=== PATIENT | male | born 1940 | race Caucasian/White ===

== ENCOUNTER → 2016-05-26 | Outpatient (CLI) | payer OTHER ==
[~2016-05-26] MED LIST: ASPI81TA28 PO; ATOR-26 PO; CHOL20009 PO; CLOB-65 EXT; CZR25 PO; DMD20 PO; DPRSL60 EXT; DXY100 PO; FLNIN; FLV1 PO; INSU70IN2 SC; ISOS30TA35 PO; LFB/200 PO; LORA-749 PO; METF-384 PO; METO50TA16 PO; METO50TA17 PO; MULTTAB PO; NITR0.4S UT; OMEP20CA9 PO; PLV75 PO; TORS10TA14 PO; ULT50 PO
[2016-05-26 10:23] LABS: ARTERIAL BLOOD GAS BASE EXCESS 5.9 mEq/L (-9-1.8); ARTERIAL BLOOD GAS HCO3 30 mmol/L (19-24); ARTERIAL BLOOD GAS PO2 81 mm/Hg (80-95); ARTERIAL BLOOD GAS pH 7.46 (7.35-7.45)
[2016-05-26 10:24] LABS: ALLEN TEST POS (POS); O2 ADMINISTRATION RA
== END | disposition home or self-care (01) ==
LOC: C.LAB 09:23
PROVIDERS: ATTEND Internal Medicine Pulmonary Disease
DX: R06.02 Shortness of breath (principal); J44.9 Chronic obstructive pulmonary disease, unspecified; E66.01 Morbid (severe) obesity due to excess calories; G47.33 Obstructive sleep apnea (adult) (pediatric)

== ENCOUNTER 2016-08-30 10:27 | Emergency (ER) | payer OTHER ==
[~2016-08-30] VITALS: Ht 162.6 cm; Wt 118.1 kg
[~2016-08-30 10:27] MED LIST changes: -ASPI81TA28 PO; -ATOR-26 PO; -CHOL20009 PO; -CZR25 PO; -DMD20 PO; -DXY100 PO; -FLNIN; -FLV1 PO; -INSU70IN2 SC; -ISOS30TA35 PO; -LFB/200 PO; -LORA-749 PO; -METF-384 PO; -METO50TA17 PO; -MULTTAB PO; -NITR0.4S UT; -OMEP20CA9 PO
[2016-08-30 10:35] VITALS: TEMP 36.7; Ht 162.6 cm; Wt 118.1 kg
[2016-08-30] MEDS ORDERED: ALBUT/IPRATROP 3MG/0.5MG NEB 3 ML VIAL INH STA (11:02)
--- NOTE | 2016-08-30 11:33 | DIAGNOSTIC IMAGING REPORT ---
CHEST ONE VIEW PORTABLE HISTORY:76 yearsMalehypoxemia with productive cough. Recent heart catheterization. COMPARISON: Chest radiograph 02/04/2016 TECHNIQUE: Portable upright AP view of the chest FINDINGS: Cardiac silhouette is again mildly enlarged. Median sternotomy. Left subclavian [place]-q-[id number] catheter is again seen with distal tip in the region of the mid SVC. No pneumothorax, pleural effusion, or edema or focal airspace consolidation. Bones are grossly intact. IMPRESSION: No acute cardiopulmonary process. The above report was generated using voice recognition software. It may contain grammatical, syntax or spelling errors. Electronically signed by: Boubacar Zepeda M.D. 08/30/2016 11:31 AM Dictated Date/Time: 08/30/2016 11:29 AM
[2016-08-30 11:37] LABS: BASO % 0.3 %; BASO ABS # 0.02 K/uL (0-0.2); COMPLETE YES; EOS % 1.7 %; HEMATOCRIT 34.6 % (42-52); IG% 0.5 %; LYMPH % 14.4 %; MEAN CELL VOLUME 90.1 fL (80-100); MEAN CORPUSCULAR HEMOGLOBIN 30.5 pg (25-34); MEAN CORPUSCULAR HGB CONC 33.8 g/dl (32-36); MEAN PLATELET VOLUME 9.3 fL (7.4-10.4); MONO % 3.1 %; PLATELET COUNT 197 K/uL (130-400); RED BLOOD COUNT 3.84 M/uL (4.7-6.1); WHITE BLOOD COUNT 7.63 K/uL (4.8-10.8)
--- NOTE | 2016-08-30 11:37 | EMERGENCY ROOM VISIT NOTE ---
History Report prepared by Shiela: Carey Case Under the Supervision of: Dr. Paola Blanco M.D. First contact with patient: 10:40 Chief Complaint: RESPIRATORY PROBLEMS Stated Complaint: LOW OXYGEN LEVEL, OLIVER, COUGH, NAUSEA Nursing Triage Summary: pt reports oxygen level down to 86 and has audible wheezing . had heart cath last week in [place]. pt reports bilat abd pain started at 0400 this am coughing up flem. increases pain History of Present Illness The patient is a 76 year old male who presents to the Emergency Room with complaints of persistent respiratory problems that worsened 6.5 hours ago, around 0400. The patient states that he woke up with a headache, diffuse abdominal pain, and shortness of breath. The patient suspects that the sausage he ate last night is causing him to experience food poisoning. The patient is also experiencing nausea and states that he dry heaved this morning without vomiting. He states that he measured his pulse oximetry and he found that it was 86%. The patient adds that he has been coughing for a while now, but this morning his cough was productive with phlegm. He denies fevers. The patient had 2 cardiac catheterizations done in [place] 5 days ago. He states that they were unremarkable and all of his arteries were clear. The patient states that he has been experiencing decreased oxygen saturations with ambulation for a while now. He states that his oxygen saturations are normal when he is sitting but decrease into the 80s upon ambulating. He told the doctors in [place] about this and they recommended nasal cannula oxygen when ambulating. The patient is also experiencing intermittent left-sided chest pain which he also states that he told the doctors at [place] about. The patient has been tested for COPD, but states that the tests are always negative. The patient had a triple cardiac bypass 8-10 years ago. The patient has diabetes but he did not take insulin this morning because his blood sugar was within normal limits and he wasn't going to eat anything else because he did not feel well. Source of History: patient Onset: 6.5 hours ago, around 0400 Position: chest Quality: other (respiratory problems) Timing: other (persistent) Associated Symptoms: + headache, + cough (productive), + chest pain (left- sided), + nausea, + abdominal pain (diffuse), No fevers Note: hypoxia Review of Systems See HPI for pertinent positives & negatives. A total of 10 systems reviewed and were otherwise negative. Past Medical & Surgical Medical Problems: (1) CKD (chronic kidney disease), stage III (2) Coronary artery disease (3) History of Mesenteric Atherosclerosis (4) HLD (hyperlipidemia) (5) SNOW (iron deficiency anemia) (6) IDDM (insulin dependent diabetes mellitus) (7) Prostate cancer (8) Psoriatic arthritis (9) Sleep apnea (10) TIA (transient ischemic attack) Surgical Problems: (1) H/O colonoscopy (2) History of esophagogastroduodenoscopy (EGD) (3) Hx of CABG Family History Bleeding disorder FH: CAD (coronary artery disease) FH: cancer Social History Smoking Status: Former Smoker Alcohol Use: none Drug Use: none Marital Status: , other Housing Status: lives with family Occupation Status: retired Current/Historical Medications Scheduled Aspirin (Aspirin Ec), 81 MG PO QAM Atorvastatin (Lipitor), 80 MG PO DAILY Cholecalciferol (Vitamin D), 4,000 INTER.UNIT PO QAM Fenofibrate (Fenofibrate Micronized), 200 MG PO DAILY Folic Acid (Folic Acid), 1 MG PO DAILY Isosorbide Mononitrate Ext Rel (Imdur Ext Rel), 30 MG PO DAILY Losartan Potassium (Losartan Potassium), 25 MG PO DAILY Metformin Hcl (Glucophage), 1,000 MG PO BID Metoprolol Tartrate (Lopressor) (Lopressor), 50 MG PO BID Multivitamins/Minerals (Mvi With Minerals), 1 TAB PO QAM Omeprazole (Prilosec), 20 MG PO QAM Torsemide (Demadex), 10 MG PO DAILY Scheduled PRN Insulin Isophan/Regular (Novolin 70/30), BID PRN for SLIDING SCALE Nitroglycerin (Nitrostat), 0.4 MG UT UD PRN for Chest Pain Allergies Coded Allergies: Prednisone (Unverified Adverse Reaction, Unknown, INCREASE BLOOD SUGAR, ) Physical Exam Vital Signs Date Time Temp Pulse Resp B/P (MAP) Pulse Ox O2 Delivery O2 Flow Rate FiO2 08/30/16 14:00 74 16 134/59 93 08/30/16 13:24 74 08/30/16 12:07 88 Room Air 08/30/16 10:44 74 08/30/16 10:35 36.7 73 22 164/77 95 Room Air Physical Exam Vital signs reviewed. Pulse ox is normal with periodic desaturations at rest. General: Chronically ill-appearing male, in no significant distress. HEENT: No scleral icterus, PERRLA, neck supple. Atraumatic. Cardiovascular: Regular rate and rhythm, no extra sounds. Pulmonary: Clear to auscultation bilaterally, normal work of breathing. Abdomen: Soft, obese, nontender, nondistended, positive bowel sounds. Musculoskeletal: Atraumatic, no peripheral edema. Neurologic: Patient awake alert and oriented x 3, full strength in all 4 extremities. Cranial nerves 2 through 12 grossly intact. Skin: Warm, dry, no rash Medical Decision & Procedures ER Provider Diagnostic Interpretation: Radiology results as stated below per my review and radiologist interpretation: CHEST ONE VIEW PORTABLE FINDINGS: Cardiac silhouette is again mildly enlarged. Median sternotomy. Left subclavian Oacxff-[id number] catheter is again seen with distal tip in the region of the mid SVC. No pneumothorax, pleural effusion, or edema or focal airspace consolidation. Bones are grossly intact. IMPRESSION: No acute cardiopulmonary process. The above report was generated using voice recognition software. It may contain grammatical, syntax or spelling errors. Electronically signed by: Boubacar Zepeda M.D. 08/30/2016 11:31 AM Dictated Date/Time: 08/30/2016 11:29 AM Laboratory Results 08/30/16 11:20 Red Blood Count 3.84, Mean Corpuscular Volume 90.1, Mean Corpuscular Hemoglobin 30.5, Mean Corpuscular Hemoglobin Concent 33.8, Mean Platelet Volume 9.3, Neutrophils (%) (Auto) 80.0, Lymphocytes (%) (Auto) 14.4, Monocytes (%) (Auto) 3.1, Eosinophils (%) (Auto) 1.7, Basophils (%) (Auto) 0.3, Neutrophils # (Auto) 6.10, Lymphocytes # (Auto) 1.10, Monocytes # (Auto) 0.24, Eosinophils # (Auto) 0.13, Basophils # (Auto) 0.02 08/30/16 11:20 Test 08/30/16 11:20 08/30/16 11:25 08/30/16 11:31 White Blood Count 7.63 K/uL (4.8-10.8) Red Blood Count 3.84 M/uL (4.7-6.1) Hemoglobin 11.7 g/dL (14.0-18.0) Hematocrit 34.6 % (42-52) Mean Corpuscular Volume 90.1 fL (80-100) Mean Corpuscular Hemoglobin 30.5 pg (25-34) Mean Corpuscular Hemoglobin Concent 33.8 g/dl (32-36) Platelet Count 197 K/uL (130-400) Mean Platelet Volume 9.3 fL (7.4-10.4) Neutrophils (%) (Auto) 80.0 % Lymphocytes (%) (Auto) 14.4 % Monocytes (%) (Auto) 3.1 % Eosinophils (%) (Auto) 1.7 % Basophils (%) (Auto) 0.3 % Neutrophils # (Auto) 6.10 K/uL (1.4-6.5) Lymphocytes # (Auto) 1.10 K/uL (1.2-3.4) Monocytes # (Auto) 0.24 K/uL (0.11-0.59) Eosinophils # (Auto) 0.13 K/uL (0-0.5) Basophils # (Auto) 0.02 K/uL (0-0.2) RDW Standard Deviation 43.9 fL (36.4-46.3) RDW Coefficient of Variation 13.5 % (11.5-14.5) Immature Granulocyte % (Auto) 0.5 % Immature Granulocyte # (Auto) 0.04 K/uL (0.00-0.02) Prothrombin Time 10.9 SECONDS (9.0-12.0) Prothromb Time International Ratio 1.0 (0.9-1.1) Activated Partial Thromboplast Time 33.3 SECONDS (21.0-31.0) Partial Thromboplastin Ratio 1.3 Anion Gap 5.0 mmol/L (3-11) Est Creatinine Clear Calc Drug Dose 42.2 ml/min Estimated GFR () 42.0 Estimated GFR (Non- 36.3 BUN/Creatinine Ratio 11.0 (10-20) Calcium Level 8.3 mg/dl (8.5-10.1) Total Bilirubin 0.5 mg/dl (0.2-1) Direct Bilirubin 0.2 mg/dl (0-0.2) Aspartate Amino Transf (AST/SGOT) 19 U/L (15-37) Alanine Aminotransferase (ALT/SGPT) 31 U/L (12-78) Alkaline Phosphatase 53 U/L (45-117) Total Creatine Kinase 87 U/L (39-308) Creatine Kinase MB 0.9 ng/ml (0.5-3.6) Creatine Kinase MB Ratio 1.0 (0-3.0) Total Protein 6.9 gm/dl (6.4-8.2) Albumin 3.1 gm/dl (3.4-5.0) Bedside Troponin I < 0.030 ng/ml (0-0.045) LS-Ryg-M-Type Natriuretic Peptide 438 pg/ml (0-900) Bedside Glucose 152 mg/dl (70-99) Laboratory results per my review. Medications Administered Medications (Trade) Dose Ordered Sig/Camelia Route Start Time Stop Time Status Last Admin Dose Admin Albuterol/ Ipratropium (Duoneb) 3 ml NOW STAT INH 08/30/16 11:02 08/30/16 11:03 DC 08/30/16 11:41 3 ML Heparin Sodium (Porcine) (Heparin 100 Unit/ml 5ml Flush) 5 ml STK-MED ONCE .ROUTE 08/30/16 13:57 08/30/16 13:58 DC 08/30/16 14:02 5 ML ECG Indication: chest pain, SOB/dyspnea Rate (beats per minute): 69 Rhythm: sinus rhythm Findings: 1st degree AV block, no acute ischemic change, no ectopy ED Course 1055: Past medical records reviewed. The patient was evaluated in room B6. A complete history and physical examination was performed. 1102: Ordered DuoNeb 3 ml INH 1300: I reviewed the patient's case with Dr. Rolon - Cardiology. He said the patient needs home oxygen. 1304: I discussed the patient's case with the auto repair shop manager. They are going to setup nasal cannula oxygen at home for the patient. 1313: Upon reevaluation, the patient appeared to have improvement of his symptoms. I discussed findings with him. He verbalized agreement of the treatment plan. He was discharged home. 1330: The auto repair shop manager informed me that [facility] is going to deliver oxygen to the patient's house. Medical Decision Differential diagnoses includes infections, reactive airway disease, pneumonia, pneumothorax, COPD, CHF, cardiac ischemia, pulmonary embolism, musculoskeletal, gastrointestinal. Medication Reconciliation: I attest that I have personally reviewed the patient' s current medication list. Blood Pressure Screening: Patient was found to have an elevated blood pressure and was referred to their primary doctor for recheck and further treatment. This patient was evaluated and appeared to be in no significant distress. Physical examination reveals an obese elderly male in no significant distress. Vital signs have remained stable, patient's oxygenation does periodically drop to the high 80s. The patient recently had a catheterization performed last week and states the coronary grafting and stents are patent. He states he has had multiple pulmonary tests done at [facility]. I did speak with his biomedical manager, Dr. Rolon who states the patient is qualified for home oxygen. Patient states that this has been arranged through [facility] but has not been delivered. Case management contacted the facility who will deliver the oxygen to the patient later this afternoon. The patient seems to be relatively stable at this time and was discharged home. He seemed happy with this plan and agrees. Consults Time Called: 1250 Consulting Physician: Dr. Rolon - Cardiology Returned Call: 1300 I reviewed the patient's case with Dr. Gonzales Baig Cardiology. He said the patient needs home oxygen. Impression Primary Impression: Dependence on supplemental oxygen Scribe Attestation The scribe's documentation has been prepared under my direction and personally reviewed by me in its entirety. I confirm that the note above accurately reflects all work, treatment, procedures, and medical decision making performed by me. Departure Information Dispostion Home / Self-Care Referrals Levy Stout M.D. (PCP) Forms HOME CARE DOCUMENTATION FORM, IMPORTANT VISIT INFORMATION, WORK / SCHOOL INSTRUCTIONS Patient Instructions My [facility] Additional Instructions Diagnosis: Oxygen dependency Home oxygen will be delivered to you later this afternoon by [facility]. Follow-up with your primary care physician this week for reevaluation. Return to the emergency department for worsening of symptoms or any medical concerns.
[2016-08-30 11:44] LABS: POINT OF CARE PRO-BNP 438 pg/ml (0-900); POINT OF CARE TROPONIN I < 0.030 ng/ml (0-0.045)
[2016-08-30 11:50] LABS: PARTIAL THROMBOPLASTIN RATIO 1.3; PROTHROMBIN TIME (PATIENT) 10.9 SECONDS (9.0-12.0)
[2016-08-30 11:59] LABS: CALCIUM 8.3 mg/dl (8.5-10.1); CREATININE 1.8 mg/dl (0.60-1.40); POTASSIUM 4.4 mmol/L (3.5-5.1)
[2016-08-30 14:00] VITALS: BP 134/59; PULSE 74; O2SAT 93
[2016-10-19] MEDS ORDERED: ASPI81TA28 PO (09:20)
[2016-10-19] MEDS ORDERED: OMEP20CA9 PO (11:27)
[2016-10-19] MEDS ORDERED: ISOS30TA35 PO (11:27)
[2016-10-19] MEDS ORDERED: CHOL20009 PO (17:46)
[2016-10-21] MEDS ORDERED: FLNIN (19:06)
[2016-10-21] MEDS ORDERED: DXY100 PO (19:06)
[2016-10-21] MEDS ORDERED: LORA10TA57 PO (19:06)
== END 2016-08-30 14:01 | disposition home or self-care (01) ==
LOC: C.EDB 10:29
DX: Z99.81 Dependence on supplemental oxygen (principal); N18.3 Chronic kidney disease, stage 3 (moderate); I25.10 Atherosclerotic heart disease of native coronary artery without angina pectoris; E78.5 Hyperlipidemia, unspecified; E55.9 Vitamin D deficiency, unspecified; E10.9 Type 1 diabetes mellitus without complications; G47.30 Sleep apnea, unspecified; G45.9 Transient cerebral ischemic attack, unspecified; Z87.891 Personal history of nicotine dependence; Z79.82 Long term (current) use of aspirin

== ENCOUNTER 2016-10-19 18:30 | Inpatient (IN) | payer OTHER ==
[~2016-10-19] VITALS: Ht 165.1 cm; Wt 117.0 kg
[~2016-10-19 18:30] MED LIST changes: +ASPI81TA28 PO; +CHOL20009 PO; -CLOB-65 EXT; -DPRSL60 EXT; +ISOS30TA35 PO; +OMEP20CA9 PO; -PLV75 PO; -ULT50 PO
[2016-10-19] MEDS ORDERED: LFB/200 PO (18:31)
[2016-10-19] MEDS ORDERED: METF-384 PO (18:31)
[2016-10-19] MEDS ORDERED: ATOR-26 PO (18:31)
[2016-10-19] MEDS ORDERED: FLV1 PO (18:31)
[2016-10-19] MEDS ORDERED: CZR25 PO (18:31)
[2016-10-19] MEDS ORDERED: ALBUT/IPRATROP 3MG/0.5MG NEB 3 ML VIAL ONE (18:40)
--- NOTE | 2016-10-19 19:03 | EMERGENCY ROOM VISIT NOTE ---
History First contact with patient: 18:47 Chief Complaint: RESPIRATORY PROBLEMS Stated Complaint: SOB/WHEEZING Nursing Triage Summary: pt arrives via EMS reports increased exertional sob over last several days , with yellow sputum and increased coughing History of Present Illness The patient is a 76 year old male who presents to the Emergency Room with complaints of shortness of breath and cough for the last 2 days. Associated wheezing and headaches. He complains of productive yellow cough, no hemoptysis. Took theraflu but is not helping. No known sick contacts. He denies any diaphoresis. He also has been having 2 weeks of abdominal pain, diarrhea. He denies melena, nausea He has obstructive sleep apnea but reports not managing to use his CPAP for the last 2 nights as it makes his more short of breath.He is on oxygen for exertion. He reports having a CABG approximately 10 years previously and 6 cardiac stents since. He had a cardiac reports having a cardiac catheterization 6 weeks previously which was normal Review of Systems See below Constitutional: + fever, + chills (see HPI) Eyes: No worsening of vision ENT: No hearing loss Respiratory: + cough, + sputum, + wheezing, + shortness of breath, + dyspnea on exertion, + dyspnea at rest, No hemoptysis Cardiovascular: + chest pain, + orthopnea, + PND (q), + edema, No claudication, No palpitations Abdomen: + diarrhea (Minor LLQ pain, previous hx of diverticulitis), No pain , No nausea, No vomiting, No constipation, No GI bleeding Musculoskeletal: No joint pain, No muscle pain Genitourinary - Male: No hematuria, No dysuria, No urinary frequency, No urinary urgency Endocrine: + fatigue, No excessive thirst, No excessive urination Integumentary: No rash, No itch Past Medical/Surgical History Medical Problems: (1) CKD (chronic kidney disease), stage III (2) Coronary artery disease (3) History of Mesenteric Atherosclerosis (4) HLD (hyperlipidemia) (5) SNOW (iron deficiency anemia) (6) IDDM (insulin dependent diabetes mellitus) (7) Prostate cancer (8) Psoriatic arthritis (9) Sleep apnea (10) TIA (transient ischemic attack) Surgical Problems: (1) H/O colonoscopy (2) History of esophagogastroduodenoscopy (EGD) (3) Hx of CABG Family History Bleeding disorder FH: CAD (coronary artery disease) FH: cancer Social History Smoking Status: Former Smoker Alcohol Use: none Drug Use: none Marital Status: , other Housing Status: lives with family Occupation Status: retired Current/Historical Medications Scheduled Aspirin (Aspirin Ec), 81 MG PO QAM Atorvastatin (Lipitor), 80 MG PO DAILY Cholecalciferol (Vitamin D), 4,000 INTER.UNIT PO QAM Fenofibrate (Fenofibrate Micronized), 200 MG PO DAILY Folic Acid (Folic Acid), 1 MG PO DAILY Insulin Isophan/Regular (Novolin 70/30), 1 DOSE SC QPM Insulin Isophan/Regular (Novolin 70/30), 65-70 UNITS SC QAM Isosorbide Mononitrate Ext Rel (Imdur Ext Rel), 30 MG PO DAILY Losartan Potassium (Losartan Potassium), 25 MG PO DAILY Metformin Hcl (Glucophage), 1,000 MG PO BID Metoprolol Tartrate (Metoprolol Tartrate), 50 MG PO BID Multivitamins/Minerals (Mvi With Minerals), 1 TAB PO QAM Omeprazole (Prilosec), 20 MG PO QAM Torsemide (Torsemide), 10 MG PO DAILY Scheduled PRN Nitroglycerin (Nitrostat), 0.4 MG UT UD PRN for Chest Pain Physical Exam Vital Signs Date Time Temp Pulse Resp B/P (MAP) Pulse Ox O2 Delivery O2 Flow Rate FiO2 10/19/16 20:35 71 20 140/78 92 Room Air 10/19/16 19:22 96 Nasal Cannula 2.0 10/19/16 19:04 70 10/19/16 18:43 36.8 64 20 156/72 98 Room Air Physical Exam GENERAL: Awake, alert, well-appearing, in moderate distress HENT: Normocephalic, atraumatic. Oropharynx unremarkable. RESPIRATORY: Diffuse wheeze on exam. CARDIAC: Regular rate, normal rhythm. Extremities warm and well perfused. Pulses equal. ABDOMEN: Soft, non-distended. Well developed. No tenderness to palpation. No rebound or guarding. No masses. MUSCULOSKELETAL: Chest examination reveals no tenderness. The back is symmetrical on inspection without obvious abnormality. There is no CVA tenderness to palpation. No joint edema. LOWER EXTREMITIES: Calves are equal size bilaterally and non-tender. No edema. No discoloration. NEURO: Normal sensorium. No sensory or motor deficits noted. SKIN: No rash or jaundice noted. Medical Decision & Procedures Laboratory Results 10/19/16 19:22 Red Blood Count 4.14, Mean Corpuscular Volume 91.1, Mean Corpuscular Hemoglobin 30.7, Mean Corpuscular Hemoglobin Concent 33.7, Mean Platelet Volume 9.7, Neutrophils (%) (Auto) 81.0, Lymphocytes (%) (Auto) 13.2, Monocytes (%) (Auto) 3.3, Eosinophils (%) (Auto) 1.9, Basophils (%) (Auto) 0.2, Neutrophils # (Auto) 8.41, Lymphocytes # (Auto) 1.37, Monocytes # (Auto) 0.34, Eosinophils # (Auto) 0.20, Basophils # (Auto) 0.02 10/19/16 19:22 Test 10/19/16 19:22 10/19/16 19:26 10/19/16 19:32 10/19/16 21:22 White Blood Count 10.38 K/uL (4.8-10.8) Red Blood Count 4.14 M/uL (4.7-6.1) Hemoglobin 12.7 g/dL (14.0-18.0) Hematocrit 37.7 % (42-52) Mean Corpuscular Volume 91.1 fL (80-100) Mean Corpuscular Hemoglobin 30.7 pg (25-34) Mean Corpuscular Hemoglobin Concent 33.7 g/dl (32-36) Platelet Count 192 K/uL (130-400) Mean Platelet Volume 9.7 fL (7.4-10.4) Neutrophils (%) (Auto) 81.0 % Lymphocytes (%) (Auto) 13.2 % Monocytes (%) (Auto) 3.3 % Eosinophils (%) (Auto) 1.9 % Basophils (%) (Auto) 0.2 % Neutrophils # (Auto) 8.41 K/uL (1.4-6.5) Lymphocytes # (Auto) 1.37 K/uL (1.2-3.4) Monocytes # (Auto) 0.34 K/uL (0.11-0.59) Eosinophils # (Auto) 0.20 K/uL (0-0.5) Basophils # (Auto) 0.02 K/uL (0-0.2) RDW Standard Deviation 43.9 fL (36.4-46.3) RDW Coefficient of Variation 13.2 % (11.5-14.5) Immature Granulocyte % (Auto) 0.4 % Immature Granulocyte # (Auto) 0.04 K/uL (0.00-0.02) Est Creatinine Clear Calc Drug Dose 38.6 ml/min Estimated GFR () 37.0 Estimated GFR (Non- 31.9 BUN/Creatinine Ratio 8.9 (10-20) Calcium Level 8.5 mg/dl (8.5-10.1) Troponin I < 0.015 ng/ml (0-0.045) Pro-B-Type Natriuretic Peptide 441 pg/ml (0-900) Bedside Hemoglobin 12.6 g/dl (14.0-18.0) Bedside Hematocrit 37 % (42-52) Bedside Sodium 136 mEq/L (135-144) Bedside Potassium 3.9 mEq/L (3.3-5.0) Bedside Chloride 95 mEq/L (101-112) Bedside Total CO2 27 mEq/l (24-31) Anion Gap 19.0 mmol/L (16-25) Bedside Blood Urea Nitrogen 18 mg/dl (7-18) Bedside Creatinine 1.9 mg/dl (0.6-1.3) Bedside Glucose (other) 217 mg/dl (70-99) Bedside Ionized Calcium (Myranda) 1.14 mmol/l (1.12-1.32) Bedside Troponin I < 0.030 ng/ml (0-0.045) Medications Administered Medications (Trade) Dose Ordered Sig/Camelia Route Start Time Stop Time Status Last Admin Dose Admin Albuterol/ Ipratropium (Duoneb) 3 ml STK-MED ONCE .ROUTE 10/19/16 18:40 10/19/16 18:41 DC 10/19/16 18:47 3 ML Methylprednisolone Sodium Succinate (Solu-Medrol IV) 125 mg NOW STAT IV 10/19/16 19:18 10/19/16 19:20 DC 10/19/16 19:49 125 MG Famotidine 20 mg/ Dextrose 102 ml @ 200 mls/hr ONE STAT IV 10/19/16 19:18 10/19/16 19:48 DC 10/19/16 19:48 200 MLS/HR Albuterol/ Ipratropium (Duoneb) 3 ml ONE STAT INH 10/19/16 20:41 10/19/16 20:42 DC 10/19/16 21:27 3 ML ECG Indication: SOB/dyspnea Rate (beats per minute): 78 Rhythm: normal sinus Findings: no acute ischemic change Comparison ECG Date: August,; no significant change Change: no significant change (lessened TX interval in the most recent ECG) ED Course 1846: full h&p obtained by myself and Dr. Peterson 1909: Discussed case with Dr. Villegas 1932: Reassessed by Dr. Peterson; comfortable at rest; declined second duoneb as he felt no advantage from first duoneb 2029: Patient re-assessed by myself; patient reports no improvement symptomatically; clinically, remains diffusely wheezy; Sats 91% on RA 2047: [facility]ed with [facility], Dr. Sanford; agreed to admit to inpatient service Medical Decision Prior records/ancillary studies reviewed. Triage Nursing notes reviewed. Additional history obtained from the patient. The patient's history was concerning for respiratory difficulties. Differential diagnosis: Etiologies such as infections, reactive airway disease, pneumonia, pneumothorax , COPD, CHF, cardiac ischemia, pulmonary embolism, musculoskeletal, gastrointestinal, as well as others were entertained. Physical examination: As above. ER treatment provided: Duoneb; solumedrol 125 On reassessment the patient felt no better. Diagnostic interpretation by me: The electrocardiogram was negative for acute ischemic or pathologic change. The labs revealed normal troponin, BNP, slightly decreased hgb at 12.6, Cr: 2.00 Imaging studies: CHEST ONE VIEW PORTABLE CLINICAL HISTORY: shortness of breath dyspnea COMPARISON STUDY: 08/30/2016 FINDINGS: Mild stable cardiomegaly. Prior median sternotomy. Central catheter in superior vena cava. Lungs are clear. IMPRESSION: Chronic change. No acute process. Consultation: [facility] The case was discussed and diagnostics were reviewed. The patient was evaluated in the ER for further treatment. This appears to be consistent with COPD exacerbation. By the evaluation outlined above emergent etiologies such as CHF, cardiac ischemia, pulmonary embolism, reactive airway disease, pneumonia, pneumothorax, musculoskeletal, serious bacterial infections, as well as others were deemed relatively unlikely. Blood Pressure Screening Patient's blood pressure: Elevated blood pressure Impression Primary Impression: COPD exacerbation Departure Information Dispostion Admitted as an inpatient Condition POOR Referrals Levy Stout M.D. (PCP) Patient Instructions My [facility] Resident Tracking Resident Involvement: Resident Care Provided Care Provided: Adult ED
--- NOTE | 2016-10-19 19:16 | DIAGNOSTIC IMAGING REPORT ---
CHEST ONE VIEW PORTABLE CLINICAL HISTORY: shortness of breath dyspnea COMPARISON STUDY: 08/30/2016 FINDINGS: Mild stable cardiomegaly. Prior median sternotomy. Central catheter in superior vena cava. Lungs are clear. IMPRESSION: Chronic change. No acute process. The above report was generated using voice recognition software. It may contain grammatical, syntax or spelling errors. Electronically signed by: Blair Lama M.D. 10/19/2016 7:15 PM Dictated Date/Time: 10/19/2016 7:14 PM
[2016-10-19] MEDS ORDERED: FAMOTIDINE IV INJ 20 MG in DEXTROSE 5% 100ML 100 ML IV STA (19:18)
[2016-10-19] MEDS ORDERED: METHYLPREDNISOLONE 125 MG VIAL IV STA (19:18)
[2016-10-19] MEDS ORDERED: INSU70IN2 SC ×2 (19:34→20:49)
[2016-10-19] MEDS ORDERED: DMD20 PO (19:34)
[2016-10-19] MEDS ORDERED: METO50TA17 PO (19:34)
[2016-10-19 19:36] LABS: BASO % 0.2 %; BASO ABS # 0.02 K/uL (0-0.2); COMPLETE YES; EOS % 1.9 %; HEMATOCRIT 37.7 % (42-52); IG% 0.4 %; LYMPH % 13.2 %; LYMPH ABS # 1.37 K/uL (1.2-3.4); MEAN CELL VOLUME 91.1 fL (80-100); MEAN CORPUSCULAR HEMOGLOBIN 30.7 pg (25-34); MEAN CORPUSCULAR HGB CONC 33.7 g/dl (32-36); MEAN PLATELET VOLUME 9.7 fL (7.4-10.4); MONO % 3.3 %; PLATELET COUNT 192 K/uL (130-400); RED BLOOD COUNT 4.14 M/uL (4.7-6.1); WHITE BLOOD COUNT 10.38 K/uL (4.8-10.8)
[2016-10-19 19:40] LABS: ISTAT CREATININE 1.9 mg/dl (0.6-1.3); ISTAT HEMOGLOBIN 12.6 g/dl (14.0-18.0); ISTAT IONIZED CALCIUM 1.14 mmol/l (1.12-1.32)
[2016-10-19 20:09] LABS: BLOOD UREA NITROGEN 18 mg/dl (7-18); BUN/CREATININE RATIO 8.9 (10-20); CALCIUM 8.5 mg/dl (8.5-10.1); CARBON DIOXIDE 31 mmol/L (21-32); CHLORIDE 100 mmol/L (98-107); GLUCOSE 215 mg/dl (70-99); SODIUM 137 mmol/L (136-145)
[2016-10-19] MEDS ORDERED: ALBUT/IPRATROP 3MG/0.5MG NEB 3 ML VIAL INH STA (20:41)
[2016-10-19] MEDS ORDERED: DOXYCYCLINE IV 100 MG in DEXTROSE 5% 100ML 100 ML IV STA (20:44)
[2016-10-19] MEDS ORDERED: CONSULT PHARMACY STA (21:22)
[2016-10-19] MEDS ORDERED: ACETAMINOPHEN 325 MG TAB PO PRN (21:30)
[2016-10-19] MEDS ORDERED: ONDANSETRON INJ 2 MG/ML 2 ML VIAL IV PRN (21:30)
[2016-10-19] MEDS ORDERED: GLUCOSE 10 TABS/TUBE PO PRN (21:30)
[2016-10-19] MEDS ORDERED: GLUCAGON FOR INJ 1 MG VIAL SQ PRN (21:30)
[2016-10-19] MEDS ORDERED: GLUCOSE 40% GEL 15 GM TUBE PO PRN (21:30)
[2016-10-19] MEDS: LEVALBUTEROL 1.25MG/0.5ML NEB INH SCH ×3 (21:30→23:34)
[2016-10-19] MEDS ORDERED: DEXTROSE 50% 50 ML SYR IV PRN (21:30)
--- NOTE | 2016-10-19 21:54 | History and Physical ---
History & Physical Date & Time of Service: Oct 19, 2016 at 21:37 Chief Complaint: Sob/Wheezing Primary Care Physician: Levy Stout M.D. History of Present Illness Source: patient, clinic records 76 year old male with history of COPD, on chronic oxygen 2 liters NC (used with exertion), KATHE on CPAP, DM 2 on Insulin, other problems noted below presenting with shortness of breath and productive cough x [address] Wright for PCP. Patient reports 2 day history of productive cough, progressive shortness of breath associated with sweats. He then presented to the ER. Patient received with saturation 98% on room air, diffuse wheezing, CXR did not reveal pneumonia though. BNP normal. He was given Duoneb, Solumedrol with some improvement of symptoms. On exam, patient sitting in bed, not in distress, speaks in sentences. State he feels only slightly better. Denies active shortness of breath, chest pain, dizziness, palpitations. Also reports LLQ pain for the past few days, no melena/hematochezia, nausea. This reminds him of previous bouts of diverticulitis. Past Medical/Surgical History Medical Problems: (1) CKD (chronic kidney disease), stage III Status: Chronic (2) Coronary artery disease Status: Chronic (3) History of Mesenteric Atherosclerosis Status: Chronic (4) HLD (hyperlipidemia) Status: Chronic (5) SNOW (iron deficiency anemia) Status: Chronic (6) IDDM (insulin dependent diabetes mellitus) Status: Chronic (7) Prostate cancer Status: Resolved (8) Psoriatic arthritis Status: Chronic (9) Sleep apnea Status: Chronic Surgical Problems: (1) H/O colonoscopy Status: Chronic (2) History of esophagogastroduodenoscopy (EGD) Status: Chronic (3) Hx of CABG Status: Resolved Family History Bleeding disorder FH: CAD (coronary artery disease) FH: cancer Social History Smoking Status: Former Smoker Drug Use: none Marital Status: , other Housing status: lives with family Occupational Status: retired Immunizations History of Influenza Vaccine: Yes History of Tetanus Vaccine?: No History of Pneumococcal: Yes History of Hepatitis B Vaccine: No Multi-Drug Resistant Organisms History of MDRO: No Allergies Coded Allergies: Prednisone (Unverified Adverse Reaction, Unknown, INCREASE BLOOD SUGAR, ) Home Medications Scheduled Aspirin (Aspirin Ec), 81 MG PO QAM Atorvastatin (Lipitor), 80 MG PO DAILY Cholecalciferol (Vitamin D), 4,000 INTER.UNIT PO QAM Fenofibrate (Fenofibrate Micronized), 200 MG PO DAILY Folic Acid (Folic Acid), 1 MG PO DAILY Insulin Isophan/Regular (Novolin 70/30), 1 DOSE SC QPM Insulin Isophan/Regular (Novolin 70/30), 65-70 UNITS SC QAM Isosorbide Mononitrate Ext Rel (Imdur Ext Rel), 30 MG PO DAILY Losartan Potassium (Losartan Potassium), 25 MG PO DAILY Metformin Hcl (Glucophage), 1,000 MG PO BID Metoprolol Tartrate (Metoprolol Tartrate), 50 MG PO BID Multivitamins/Minerals (Mvi With Minerals), 1 TAB PO QAM Omeprazole (Prilosec), 20 MG PO QAM Torsemide (Torsemide), 10 MG PO DAILY Scheduled PRN Nitroglycerin (Nitrostat), 0.4 MG UT UD PRN for Chest Pain Review of Systems Constitutional- no fever; no weight loss Eyes- no acute visual changes ENT- no sinus drainage; no pharyngitis Pulmonary- (+) as noted above Cardiac- no chest pain, no palpitations, no orthopnea, no dependent edema GI- (+) as noted above - no dysuria, no hematuria Musculoskeletal- no arthralgias, no myalgias Derm- no rashes, no new skin lesions, no changing skin lesions Hematologic- no unusual bruising, no unusual bleeding Lymphatics- no adenopathy Endocrine- no polyuria or polydipsia; no heat or cold intolerance Neuro- no headaches, no focal neurologic symptoms Psych- no anxiety, no depression Physical Exam Vital Signs Date Time Temp Pulse Resp B/P (MAP) Pulse Ox O2 Delivery O2 Flow Rate FiO2 10/19/16 20:35 71 20 140/78 92 Room Air 10/19/16 19:22 96 Nasal Cannula 2.0 10/19/16 19:04 70 10/19/16 18:43 36.8 64 20 156/72 98 Room Air General Appearance: WD/WN, no apparent distress Head: normocephalic, atraumatic Eyes: normal inspection, EOMI, sclerae normal ENT: normal ENT inspection, hearing grossly normal, pharynx normal Neck: supple, no adenopathy, thyroid normal, no JVD Respiratory/Chest: chest non-tender, no respiratory distress, no accessory muscle use, + pertinent finding (scattered wheezing and bilaterally) Cardiovascular: regular rate, rhythm, no edema, no JVD, no murmur Abdomen/GI: normal bowel sounds, soft, no organomegaly, + pertinent finding ( mild LLQ tenderness) Back: normal inspection, no CVA tenderness Extremities/Musculoskelatal: normal inspection, no calf tenderness, normal capillary refill, no pedal edema, normal range of motion 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, no motor/sensory deficits, alert, normal mood/affect, oriented x 3 Skin: normal color, warm/dry, no rash Lymphatic: no adenopathy Diagnostics Laboratory Results Results Past 24 Hours Test 10/19/16 19:22 10/19/16 19:26 10/19/16 19:32 10/19/16 21:22 Range/Units White Blood Count 10.38 4.8-10.8 K/uL Red Blood Count 4.14 4.7-6.1 M/uL Hemoglobin 12.7 14.0-18.0 g/dL Hematocrit 37.7 42-52 % Mean Corpuscular Volume 91.1 80-100 fL Mean Corpuscular Hemoglobin 30.7 25-34 pg Mean Corpuscular Hemoglobin Concent 33.7 32-36 g/dl Platelet Count 192 130-400 K/uL Mean Platelet Volume 9.7 7.4-10.4 fL Neutrophils (%) (Auto) 81.0 % Lymphocytes (%) (Auto) 13.2 % Monocytes (%) (Auto) 3.3 % Eosinophils (%) (Auto) 1.9 % Basophils (%) (Auto) 0.2 % Neutrophils # (Auto) 8.41 1.4-6.5 K/uL Lymphocytes # (Auto) 1.37 1.2-3.4 K/uL Monocytes # (Auto) 0.34 0.11-0.59 K/uL Eosinophils # (Auto) 0.20 0-0.5 K/uL Basophils # (Auto) 0.02 0-0.2 K/uL RDW Standard Deviation 43.9 36.4-46.3 fL RDW Coefficient of Variation 13.2 11.5-14.5 % Immature Granulocyte % (Auto) 0.4 % Immature Granulocyte # (Auto) 0.04 0.00-0.02 K/uL Sodium Level 137 136-145 mmol/L Potassium Level 4.0 3.5-5.1 mmol/L Chloride Level 100 98-107 mmol/L Carbon Dioxide Level 31 21-32 mmol/L Anion Gap 6.0 19.0 16-25 mmol/L Blood Urea Nitrogen 18 7-18 mg/dl Creatinine 2.00 0.60-1.40 mg/dl Est Creatinine Clear Calc Drug Dose 38.6 ml/min Estimated GFR () 37.0 Estimated GFR (Non- 31.9 BUN/Creatinine Ratio 8.9 10-20 Random Glucose 215 70-99 mg/dl Calcium Level 8.5 8.5-10.1 mg/dl Troponin I < 0.015 0-0.045 ng/ml Pro-B-Type Natriuretic Peptide 441 0-900 pg/ml Bedside Hemoglobin 12.6 14.0-18.0 g/dl Bedside Hematocrit 37 42-52 % Bedside Sodium 136 135-144 mEq/L Bedside Potassium 3.9 3.3-5.0 mEq/L Bedside Chloride 95 101-112 mEq/L Bedside Total CO2 27 24-31 mEq/l Bedside Blood Urea Nitrogen 18 7-18 mg/dl Bedside Creatinine 1.9 0.6-1.3 mg/dl Bedside Glucose (other) 217 70-99 mg/dl Bedside Ionized Calcium (Myranda) 1.14 1.12-1.32 mmol/l Bedside Troponin I < 0.030 0-0.045 ng/ml Diagnostic Radiology CHEST ONE VIEW PORTABLE CLINICAL HISTORY: shortness of breath dyspnea COMPARISON STUDY: 08/30/2016 FINDINGS: Mild stable cardiomegaly. Prior median sternotomy. Central catheter in superior vena cava. Lungs are clear. IMPRESSION: Chronic change. No acute process. EKG sinus rhythm, normal HR Impression Assessment and Plan 76 year old male with history of COPD, on chronic oxygen 2 liters NC (used with exertion), KATHE on CPAP, DM 2 on Insulin, other problems noted below presenting with shortness of breath and productive cough x 2 days. COPD EXACERBATION, ACUTE BRONCHITIS ACUTE ON CHRONIC HYPOXIC RESPIRATORY FAILURE - cxr no pneumonia - Solumedrol 60mg q6h, Nebs q4h, Moxifloxacin baseline ABG ordered POSSIBLE DIVERTICULITIS - denies signs of GI bleed - Ct abdomen/pelvis without contrast - Moxifloxacin IV mech soft diet KATHE ON CPAP - CPAP ordered DM 2 - usually on Metformin and Novolin 70/30 Pharmacy consulted CAD/CABG - stable continue usual Aspirin, Metoprolol, Imdur, Losartan CKD 3 - crea at baseline DVT PROPH - hold heparin for possible diverticulitis SCDs onlly FULL CODE PER PATIENT DISPO anticipate d/c home when medically stable VTE Prophylaxis VTE Risk Assessment Done? Y/N: Yes Risk Level: Moderate Given or contraindicated: SCD's
[2016-10-19] MEDS ORDERED: HEPARIN SOD 5000 UNIT/0.5 ML CARP SQ SCH (22:00)
[2016-10-19] MEDS ORDERED: PHARMACY GLYCEMIC MGMT CONSULT PRN (22:16)
--- NOTE | 2016-10-19 22:19 | DIAGNOSTIC IMAGING REPORT ---
ABD/PELVIS NO IV OR ORAL CONT CT DOSE: 1453.93 mGy.cm HISTORY: Paranasal possible diverticulitis TECHNIQUE: Multiaxial CT images of the abdomen and pelvis were performed without contrast. A dose lowering technique was utilized adhering to the principles of ALARA. COMPARISON STUDY: 12/13/2012 FINDINGS: Lung bases are clear. Liver spleen and pancreas appear unremarkable. Kidneys negative for hydronephrosis. There is a trace amount of right renal perinephric infiltrative change. Components of this are similar to the prior study but are slightly more prominent on the current exam. Abdominal bowel pattern is nonobstructive. The appendix is normal. Findings of mild chronic sigmoid diverticulosis. There is no evidence for acute diverticulitis. There are several small reactive inguinal nodes similar compared to the prior exam. IMPRESSION: Mild chronic sigmoid diverticulosis.. 2. No evidence for acute diverticulitis. 3. Mild nonspecific infiltrative change right mid kidney/perinephric region. . The Possibility of mild pyelonephritis is considered. The above report was generated using voice recognition software. It may contain grammatical, syntax or spelling errors. Electronically signed by: Blair Lama M.D. 10/19/2016 10:17 PM Dictated Date/Time: 10/19/2016 10:14 PM
[2016-10-19] MEDS ORDERED: INSULIN GLARGINE SOLOSTAR 100 UNITS/ML 3 ML PEN SC SCH (23:00)
[2016-10-19] MEDS ORDERED: NITR0.4S UT (23:10)
[2016-10-19] MEDS ORDERED: MULTTAB PO (23:13)
--- NOTE | 2016-10-19 23:27 | EMERGENCY ROOM VISIT NOTE ---
ED Visit Note First contact with patient: 18:43 Resident Physician Supervision Note: Dr. Meron Dee was resident physician during care of patient. I separately evaluated patient and did history and exam. I discussed the case with the resident and generally agree with the findings and plan. 76 yr old male who notes history of "mild" COPD though clearly at baseline is quite brittle health. After nebs, steroids his lung exam is quite poor. Feel this is more likely COPD than CHF/Pneumonia though will given IV doxy for coverage as being admitted for COPD. I do not feel this is PE and with Cr I do not feel that CT would be reasonable in this patient. Diagnosis: COPD Exacerbation, Acute Documented By: Adriano Villegas MD
[2016-10-19] MEDS ORDERED: MOXIFLOXACIN IV SCH (23:30)
[2016-10-19] MEDS ORDERED: [UNRECOGNIZED DRUG - OTHER] IV SCH (23:30)
[2016-10-19] MEDS ORDERED: PREMIXED IV SCH (23:30)
[2016-10-19 23:34] VITALS: PULSE 79; O2SAT 94
[2016-10-19 23:45] VITALS: BP 173/81; PULSE 80; TEMP 36.9; O2SAT 94; BMI 42.9
[2016-10-20] VITALS (12 sets, daily range): BP systolic 128–148; BP diastolic 56–81; PULSE 58–91; TEMP 36.4–36.7; O2SAT 94–99
[2016-10-20] MEDS: INSULIN ASPART 100 UNITS/ML 3 ML PEN SC SCH ×6 (00:16→21:21)
[2016-10-20 00:47] LABS: URINE APPEARANCE CLEAR (CLEAR); URINE BILIRUBIN NEG (NEG); URINE COLOR YELLOW; URINE NITRITE NEG (NEG); URINE PH 5.5 (4.5-7.5); URINE SPECIFIC GRAVITY 1.019 (1.000-1.030); UROBILINOGEN NEG (NEG)
[2016-10-20 00:53] LABS: MANUAL MICROSCOPIC REQUIRED? NO; REVIEW REQ? NO
[2016-10-20] MEDS: METHYLPREDNISOLONE IV 60 MG in SYRINGE 0 ML IV SCH ×4 (01:30→20:09)
[2016-10-20] MEDS: LEVALBUTEROL 1.25MG/0.5ML NEB INH SCH ×6 (03:29→23:44)
[2016-10-20 05:42] LABS: BASO % 0.1 %; BASO ABS # 0.01 K/uL (0-0.2); COMPLETE YES; HEMATOCRIT 37.1 % (42-52); IG% 0.3 %; LYMPH % 6.4 %; LYMPH ABS # 0.84 K/uL (1.2-3.4); MEAN CELL VOLUME 90.9 fL (80-100); MEAN CORPUSCULAR HEMOGLOBIN 30.4 pg (25-34); MEAN CORPUSCULAR HGB CONC 33.4 g/dl (32-36); MEAN PLATELET VOLUME 9.6 fL (7.4-10.4); MONO % 0.8 %; NEUT % 92.4 %; PLATELET COUNT 190 K/uL (130-400); RED BLOOD COUNT 4.08 M/uL (4.7-6.1); WHITE BLOOD COUNT 13.14 K/uL (4.8-10.8)
[2016-10-20 06:10] LABS: BUN/CREATININE RATIO 10.4 (10-20); CALCIUM 8.8 mg/dl (8.5-10.1); POTASSIUM 4.4 mmol/L (3.5-5.1)
[2016-10-20 06:19] LABS: BETA-HYDROXYBUTYRATE 2.54 mg/dL (0.2-2.81)
[2016-10-20 06:26] LABS: ESTIMATED AVERAGE GLUCOSE 157 mg/dl; HA1C FLAG Normal (Normal)
--- NOTE | 2016-10-20 07:00 | Clinical Documentation Query ---
ANTHONY Meyers : CLINICAL DOCUMENTATION QUERY Clinical documentation includes a diagnosis of: Acute respiratory failure with hypoxia Patient is a 76 year old male admitted for evaluation and treatment of COPD exacerbation with acute bronchitis. Documentation included acute hypoxic respiratory failure. Assessment documentation included "no apparent distress", "no respiratory distress, no accessory muscle use". SpO2 was within normal limits on room air. respiratory rate <=20. Heart rate was in the 60's -70's. No ABG performed. Due to stringent requirements by our coding department, multiple clinical indicators associated with this diagnosis must be present in order for this to be coded/captured within the medical record. If appropriate, please document 2 or more of the following clinical indicators in daily progress notes and the discharge summary. If you feel the diagnosis of acute respiratory failure was made in error, or do not agree with it, simply discontinue documentation thereof. Acute Respiratory Failure indicators include: * Respirations >28 * Air hunger * Use of accessory muscles of respiration * Inability to speak in full sentences * Cyanosis * Pulse ox <90% RA or <95% on O2 *pH <7.35 or >7.45 * pO2 < 60 mm Hg (or 10mm below COPD patient's baseline) * pCO2 >50mm Hg (or 10mm above COPD patient's baseline) * mechanical ventilation * Increased work of breathing * Tachypnea Please clarify and document your clinical opinion in the progress notes and discharge summary. Terms such as "probable", "suspected", "likely", "questionable", "possible", or "still to be ruled out" are acceptable. IF IN AGREEMENT, YOU MUST DOCUMENT ABOVE DIAGNOSTIC STATEMENT IN DAILY PROGRESS NOTES AND DISCHARGE SUMMARY. This document is not part of the patient's record. Thank You, Shabbir Emanuel, RN [phone]
[2016-10-20] MEDS: LOSARTAN POTASSIUM 25 MG TAB PO SCH (07:58)
[2016-10-20] MEDS: ATORVASTATIN 40 MG TAB PO SCH (07:58)
[2016-10-20] MEDS: ISOSORBIDE MONONITRATE 30 MG TABCR PO SCH (07:58)
[2016-10-20] MEDS: PANTOprazole SOD 40 MG TAB PO SCH (07:58)
[2016-10-20] MEDS: ASPIRIN 81 MG ECTAB PO SCH (07:58)
[2016-10-20] MEDS: METOPROLOL TARTRATE 50 MG TAB PO SCH ×2 (07:59→21:21)
[2016-10-20] MEDS ORDERED: INSULIN HUMAN REGULAR IV BOLUS 8 UNIT in SYRINGE 0 ML IV SCH (08:00)
[2016-10-20] MEDS ORDERED: LEVOFLOXACIN CONSULT ACTIVE PRN (08:49)
[2016-10-20] MEDS ORDERED: INSULIN GLARGINE SOLOSTAR 100 UNITS/ML 3 ML PEN SC SCH ×2 (09:00→21:00)
[2016-10-20] MEDS: METRONIDAZOLE 500 MG TAB PO SCH ×3 (10:22→21:22)
[2016-10-20] MEDS ORDERED: INSULIN HUMAN REGULAR IV BOLUS 10 UNIT in SYRINGE 0 ML IV SCH (11:45)
--- NOTE | 2016-10-20 14:34 | Pharmacy Progress Note ---
Glycemic Control Intl Consult Date of Service Oct 20, 2016. Scope Glycemic Pharmacist consulted by Dr Sanford on 10/19/16 for glycemic control and to write orders per [facility] inpatient glycemic control protocol Objective Weight (Kilograms): 115.800 Accuchecks BSG (last 24hrs): Test 10/19/16 19:22 10/19/16 23:41 10/20/16 04:01 10/20/16 05:33 Random Glucose 215 mg/dl (70-99) 309 mg/dl (70-99) Bedside Glucose 233 mg/dl (70-99) 300 mg/dl (70-99) Test 10/20/16 07:28 10/20/16 11:56 Bedside Glucose 267 mg/dl (70-99) 314 mg/dl (70-99) Laboratory Data (last 24hrs) Test 10/19/16 19:22 10/19/16 19:26 10/20/16 05:33 Anion Gap 6.0 mmol/L 19.0 mmol/L 10.0 mmol/L BUN/Creatinine Ratio 8.9 10.4 Blood Urea Nitrogen 18 mg/dl 21 mg/dl Creatinine 2.00 mg/dl 2.00 mg/dl Potassium Level 4.0 mmol/L 4.4 mmol/L Sodium Level 137 mmol/L 135 mmol/L White Blood Count 10.38 K/uL 13.14 K/uL Red Blood Count 4.14 M/uL 4.08 M/uL Hemoglobin 12.7 g/dL 12.4 g/dL Hematocrit 37.7 % 37.1 % Mean Corpuscular Volume 91.1 fL 90.9 fL Mean Corpuscular Hemoglobin 30.7 pg 30.4 pg Mean Corpuscular Hemoglobin Concent 33.7 g/dl 33.4 g/dl Platelet Count 192 K/uL 190 K/uL Mean Platelet Volume 9.7 fL 9.6 fL Neutrophils (%) (Auto) 81.0 % 92.4 % Lymphocytes (%) (Auto) 13.2 % 6.4 % Monocytes (%) (Auto) 3.3 % 0.8 % Eosinophils (%) (Auto) 1.9 % 0.0 % Basophils (%) (Auto) 0.2 % 0.1 % Neutrophils # (Auto) 8.41 K/uL 12.15 K/uL Lymphocytes # (Auto) 1.37 K/uL 0.84 K/uL Monocytes # (Auto) 0.34 K/uL 0.10 K/uL Eosinophils # (Auto) 0.20 K/uL 0.00 K/uL Basophils # (Auto) 0.02 K/uL 0.01 K/uL Hemoglobin A1c 7.1 % HbA1c Test 10/20/16 05:33 Hemoglobin A1c 7.1 % (4.5-5.6) H Recent Pertinent Medications Outpatient Anti-diabetic Regimen: * Novolin 70/30 : 65-70 units in the morning and evening per scale (can be anywhere from 10-65 units) The patient is currently receiving: * Basal insulin: Lantus 30 units every 12 hours * Correctional Insulin: Novolog Correction per scale ACHS Goal Range: Low 110 mg/dL - High 140 mg/dL Correction Factor: 15 mg/dL/unit * Prandial insulin: Per carb ratio of 1 unit per 5 grams CHO consumed Risk Factors for Insulin Resistance: * Steroids: Solu-Medrol 60 mg IV q6 hours * Infection: possible bronchitis/diverticulitis * Diet: type 2 diabetic diet Assessment & Plan ASSESSMENT: * ADA & AACE recommend a goal blood sugar range 140-180 mg/dl for the majority of critically ill & non-critically ill patients. However, more stringent targets may be selected in individual cases. Will utilize more stringent goal of 110-140mg/dl based on patient age & comorbidities. Additionally, tighter glycemic control is warranted to facilitate infection healing. * Ms Beltran is a 76 y/o M with a PMH of COPD on chronic home oxygen, CKD stage 3 (baseline creatinine 1.8 mg/dL), and CAD admitted with possible bronchitis or diverticulitis. Patient is well controlled on his home regimen. His total daily dose is unclear as the patient states he utilizes a sliding scale at night but cannot pinpoint an average number. Estimate maximum daily dose would be 130 units/day. * Patient received 30 units of Lantus yesterday evening as well as 18 additional units of Novolog overnight. This morning his fasting blood sugar was 267 mg/dL. Based upon home maximum dose of 130 units/day stress of 2, Lantus was increased to 40 units twice daily. Carbohydrate ratio tightened to 1 unit for every 4 grams of carbohydrates consumed. Correction factor was not altered as steroids tend to effect post-prandial blood sugars. * However, at lunch, patient's blood sugar was 358 mg/dL. An IV bolus was administered (0.8 units/kg) plus correctional insulin tightened to home daily dose stress of 2. If blood sugars continue to rise, it is reasonable to tighten carbohydrate ratio to 2.5 or even 2. Overnight accuchecks were added to continue 24 hour care. PLAN FOR INPATIENT GLYCEMIC CONTROL: * Increasing Lantus to 40 units SQ BID * TIGHTEN correction factor to 10 mg/dl/unit * TIGHTEN carb ratio to 1 unit per 3 grams CHO consumed * Continuing goal range to Low 110 mg/dL - High 140 mg/dL * Please note that the plan above was derived based on current level of insulin resistance and hospital stress. These recommendations are appropriate for inpatient admission only. Plan of care upon discharge will need to be reassessed to avoid potential outpatient hypo/hyperglycemia. Thank you.
--- NOTE | 2016-10-20 16:18 | Progress Note ---
Internal Med Progress Note Date of Service: Oct 20, 2016. Provider Documentation: SUBJECTIVE: mentions breathing much better than yesterday still has no productive cough no fever or chills requiring 2 L 0 2 continuously/at home was on 2L via nasal canula with exertion only worried about his increased requirement of 02 denies of any abdominal pain or discomfort , no nausea no diarrhea or loose stool OBJECTIVE: Vital Signs-as noted below Exam: General- no sign of distress, obese Eyes-sclera non icteric ENT-NAD Neck-no JVD Lungs-diminished, no wheeze or raled audible Heart-regular S1/S2 Abdomen-soft, non tender Extremities-+ 1 lower ext edema Neuro-AAO x3, no focal deficit Lab data as noted below. ASSESSMENT & PLAN: COPD EXACERBATION, ACUTE BRONCHITIS -respiratory status improving with Neb tx /02 supplement on IV Steroids -plan to wean to PO Prednisone tomorrow Cxray no evidence of infiltrate on Levaquin empirically , will de escalate abx as pt improves clinically was on 2 L at home on exertion /activity will check 2 step exercise prior to discharge to assess if pt requires cont 02 at home HX OF SIGMOID DIVERTICULITIS - Ct abdomen/pelvis without contrast-shows no evidence of acute diverticulitis -no GI complain at present D/c Flagyl KATHE ON CPAP - CPAP ordered DM 2 -BSG elevated due to IV Steroid - usually on Metformin and Novolin 70/30-on hold for now Pharmacy consulted for glycemic control Hb A1c ~8 CAD/CABG - stable continue usual Aspirin, Metoprolol, Imdur, Losartan CKD 3 - crea at baseline DVT PROPH -moderate to high risk ordered for Subq heparin FULL CODE PER PATIENT DISPO anticipate d/c home when medically stable Medicine follow up with Dr Wright PT/OT eval prior to discharge Vital Signs: Date Time Temp Pulse Resp B/P (MAP) Pulse Ox O2 Delivery O2 Flow Rate FiO2 10/21/16 07:25 36.4 55 20 127/64 (85) 98 10/21/16 07:05 66 16 97 Room Air 10/21/16 04:00 Room Air 10/21/16 04:00 36.5 58 20 125/70 (88) 97 Room Air 10/21/16 03:21 62 16 96 Room Air 10/21/16 00:29 36.4 78 18 128/68 (88) 94 CPAP 10/21/16 00:00 Room Air 10/20/16 23:54 58 98 10/20/16 23:46 58 18 98 Room Air 10/20/16 20:14 36.4 82 18 128/56 (80) 94 Room Air 10/20/16 20:00 Nasal Cannula 2.0 10/20/16 19:09 68 20 98 Nasal Cannula 2.0 10/20/16 16:17 36.4 84 20 148/81 (103) 96 Nasal Cannula 2.0 10/20/16 16:00 Nasal Cannula 2.0 10/20/16 15:22 82 20 96 Nasal Cannula 2.0 10/20/16 12:00 Nasal Cannula 2.0 10/20/16 11:41 36.5 73 16 128/72 (90) 96 Room Air 10/20/16 11:13 91 20 99 Nasal Cannula 2.0 Lab Results: Results Past 24 Hours Test 10/20/16 11:56 10/20/16 16:55 10/20/16 20:20 10/20/16 23:56 Range/Units Bedside Glucose 314 296 346 301 70-99 mg/dl Test 10/21/16 04:11 10/21/16 05:43 10/21/16 07:40 Range/Units Bedside Glucose 200 160 70-99 mg/dl Creatinine 2.00 0.60-1.40 mg/dl Est Creatinine Clear Calc Drug Dose 38.6 ml/min Estimated GFR () 37.0 Estimated GFR (Non- 31.9
[2016-10-20] MEDS ORDERED: INSULIN REGULAR 10 UNITS in SYRINGE 9.9 ML IV SCH (21:30)
[2016-10-20] MEDS ORDERED: LEVOFLOXACIN 500MG / D5W IV ONE (22:00)
[2016-10-21] VITALS (12 sets, daily range): BP systolic 125–166; BP diastolic 64–82; PULSE 55–86; TEMP 36.3–36.5; O2SAT 94–98; Ht 165.1 cm; Wt 117.0 kg
[2016-10-21] MEDS: METHYLPREDNISOLONE IV 60 MG in SYRINGE 0 ML IV SCH (02:26)
[2016-10-21] MEDS: LEVALBUTEROL 1.25MG/0.5ML NEB INH SCH (03:21)
[2016-10-21] MEDS: INSULIN ASPART 100 UNITS/ML 3 ML PEN SC SCH ×7 (04:16→23:51)
[2016-10-21] MEDS: METOPROLOL TARTRATE 50 MG TAB PO SCH ×2 (07:52→20:40)
[2016-10-21] MEDS: LOSARTAN POTASSIUM 25 MG TAB PO SCH (07:54)
[2016-10-21] MEDS: ISOSORBIDE MONONITRATE 30 MG TABCR PO SCH (07:54)
[2016-10-21] MEDS: ASPIRIN 81 MG ECTAB PO SCH (07:54)
[2016-10-21] MEDS: ATORVASTATIN 40 MG TAB PO SCH (07:55)
[2016-10-21] MEDS: PANTOprazole SOD 40 MG TAB PO SCH (07:55)
[2016-10-21] MEDS ORDERED: ALBUT/IPRATROP 3MG/0.5MG NEB 3 ML VIAL INH PRN (08:00)
[2016-10-21] MEDS ORDERED: INSULIN GLARGINE SOLOSTAR 100 UNITS/ML 3 ML PEN SC SCH ×2 (09:00→21:00)
[2016-10-21] MEDS: DOXYCYCLINE HYCLATE 100 MG CAP PO SCH ×2 (09:51→20:39)
[2016-10-21] MEDS: TORSEMIDE 20 MG TAB PO SCH (09:51)
[2016-10-21] MEDS: HEPARIN SOD 5000 UNIT/0.5 ML CARP SQ SCH ×3 (09:53→22:31)
--- NOTE | 2016-10-21 11:35 | Cardiology Consultation ---
Cardiology Consultation Date of Consultation: Oct 21, 2016 Requesting Physician: Claribel Attending Sock Lining Examiner: Gonzales (Blair Hannah PA-C) History of Present Illness Mr. Beltran is a 76 year old male who was admitted to [facility] on October 19, 2016 with complaints of shortness of breath with a productive cough and sweats, working diagnosis of acute on chronic obstructive pulmonary exacerbation. Last evening he was noted to have bradycardia prompting cardiology consultation. He notes that he has been unable to utilize his CPAP since Tuesday. He continues to feel very breathless and is unable to walk from the bathroom to the bed without experiencing significant dyspnea. No chest pain. No tachypalpitations. No near syncope or syncope. (Blair Hannah PA-C) Past Medical/Surgical History Problem List: ASCVD Status post CABG x 3 in 2008 Status post multiple PCIs to the RCA with patent RCA stents and 2 patent grafts by cardiac catheterization August 2016. Chronic respiratory failure, on chronic O2. Severe anemia requiring transfusions while on dual antiplatelet therapy. Chronic anemia, improving. Stage 3 chronic kidney disease. TIA Hypertension Dyslipidemia History of Henning's esophagus Elevated BMI. Type II diabetes. Obstructive sleep apnea. Dyslipidemia. Colonic polyps status post multiple polypectomies Prostate biopsy x 2, BPH, Prostate cancer Generalized osteoarthritis Impotence of organic origin Psoriasis Carpal tunnel syndrome Cervicalgia Vitamin D deficiency Migraine headaches. (Blair Hannah PA-C) Family History Family History: Mother at 83 with CHF. Father at 52 with black lung. Brother with an IA at 46. (Blair Hannah PA-C) Bleeding disorder FH: CAD (coronary artery disease) FH: cancer (Dwaine Rolon, D.O.) Social History Social History: Reformed smoker. Start at age 24. Quit in 1997. No smokeless tobacco. No illegal drug use. No alcohol use/abuse. . Two children. 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 (Blair Hannah PA-C) Review Of Systems General: No fever or chills. Head: Headaches. Cardiovascular: No chest discomfort. No orthopnea or PND. + Peripheral edema. Pulmonary: KATHE. Notes immediate benefit when first prescribed CPPA. Hypoxemia. 2 L/min via NC with ambulation. + Cough. + Wheeze. + Sputum. Gastrointestinal: + Nausea. + Diarhea. Skin: Psoriasis. Musculoskeletal: See above. Neurological: + TIA. No CVA. No history of seizures. Complete review of systems is as stated above, negative, or noncontributory. (Blair Hannah PA-C) Allergies Coded Allergies: Prednisone (Unverified Adverse Reaction, Unknown, INCREASE BLOOD SUGAR, ) Medications Reported Home Medications Medications Dose Route/Sig Max Daily Dose Days Date Category Dose Instructions Torsemide 20 Mg Tab 10 Mg PO DAILY 10/19/16 Reported Metoprolol Tartrate 50 Mg Tab 50 Mg PO BID 10/19/16 Reported Novolin 70/30 (Insulin Human Isoph/Insulin Regular) Susp 65-70 Units SC QAM 10/19/16 Reported Prilosec (Omeprazole) 20 Mg Cap 20 Mg PO QAM 08/30/16 Reported Imdur Ext Rel (Isosorbide Mononitrate) 30 Mg Tabcr 30 Mg PO DAILY 08/30/16 Reported Novolin 70/30 (Insulin Human Isoph/Insulin Regular) Susp 1 Dose SC QPM 07/22/15 Reported PM DOSAGE DIRECTED BY SLIDING SCALE Folic Acid 1 Mg Tab 1 Mg PO DAILY 07/22/15 Reported Lipitor (Atorvastatin Calcium) 80 Mg Tab 80 Mg PO DAILY 07/22/15 Reported Glucophage (Metformin Hcl) 1,000 Mg Tab 1,000 Mg PO BID 07/22/15 Reported TAKE THIS MEDICATION WITH MORNING AND EVENING MEALS Fenofibrate Micronized (Fenofibrate) 200 Mg Cap 200 Mg PO DAILY 07/22/15 Reported TAKE THIS MEDICATION ONCE DAILY WITH A MEAL Losartan Potassium 25 Mg Tab 25 Mg PO DAILY 07/22/15 Reported Aspirin Ec (Aspirin) 81 Mg Tab 81 Mg PO QAM 03/21/15 Reported Mvi With Minerals (Multivitamins/Minerals) Tab 1 Tab PO QAM 09/11/13 Reported Nitrostat (Nitroglycerin) 0.4 Mg Sub 0.4 Mg UT UD PRN 09/11/[address] ONE TABLET UNDER THE TONGUE EVERY 5 MINUTES FOR UP TO 3 DOSES IF NEEDED FOR CHEST PAIN. Vitamin D (Cholecalciferol) 2,000 Unit Tab 4,000 Inter.unit PO QAM 02/19/13 Reported (Blair Hannah PA-C) Physical Exam Vital Signs (Last 8hrs): Last 8 Hrs Date Time Temp Pulse Resp B/P (MAP) Pulse Ox O2 Delivery O2 Flow Rate FiO2 10/21/16 10:31 97 10/21/16 07:45 Room Air 10/21/16 07:25 36.4 55 20 127/64 (85) 98 10/21/16 07:05 66 16 97 Room Air 10/21/16 04:00 Room Air 10/21/16 04:00 36.5 58 20 125/70 (88) 97 Room Air 10/21/16 03:21 62 16 96 Room Air General Appearance: Alert and Oriented x3. Dyspneic, tachypneic. Elevated BMI. Larios. Head: Normocephalic Atraumatic. Eyes: PER, EOMI, conjunctiva and sclera clear Neck: Supple. No carotid bruits noted. No JVD. Respiratory: Considerably diminished throughout with expiratory wheezing. Cardiovascular: Distant heart sounds. RRR, 100 bpm. No murmurs appreciated. Abdomen: Obese. +BS. Somewhat firm. Nontender. Extremities: 1+ edema. No clubbing. No cyanosis. Neuro: No focal deficits. Psychiatric: Normal affect. (Blair Hannah PA-C) Data Last 24 Hours Test 10/20/16 11:56 10/20/16 16:55 10/20/16 20:20 10/20/16 23:56 Bedside Glucose 314 mg/dl 296 mg/dl 346 mg/dl 301 mg/dl Test 10/21/16 04:11 10/21/16 05:43 10/21/16 07:40 Bedside Glucose 200 mg/dl 160 mg/dl Creatinine 2.00 mg/dl Est Creatinine Clear Calc Drug Dose 38.6 ml/min Estimated GFR () 37.0 Estimated GFR (Non- 31.9 August 25, 2016 Cardiac Catheterization ([place]): The coronary arteries have significant 3 vessel disease.The previously placed stent in the proximal RCA and mid RCA has no in-stent restenosis.2 of 3 bypass grafts are patent.The right atrial pressures measured were normal (9 mmHg).Pulmonary hypertension is mild (46/9 (26) mmHg).The pulmonary wedge pressure was normal (12 mmHg).The cardiac output was normal; 6.26 L/min (index 2.91) by thermodilution. The PVR is normal at less than 2 Wood units.The left ventricular end diastolic pressure was high. EKG dated and timed 19-OCT-2016 @ 18:40:56: Normal sinus rhythm Borderline first degree AV block. When compared with ECG of 30-AUG-2016 11:13, MD interval has decreased. Confirmed by MAGGY CORONEL MD ([id number]) on 10/19/2016 7:38:50 PM EKG dated and timed 21-OCT-2016 @ 08:28:02: Normal sinus rhythm with sinus arrhythmia. When compared with ECG of 19-OCT-2016 18:40, inverted T waves have replaced nonspecific T wave abnormality in Anterior leads Telemetry: Currently sinus tachycardia at 104 bpm. Sinus throughout with minimal sinus pauses overnight, while without CPAP therapy. No significant bradycardia or pauses. (Blair Hannah PA-C) Assessment & Plan 76 year old male admitted with an acute exacerbation of his obstructive pulmonary disease. Mild nocturnal bradycardia with minimal sinus pauses observed , likely reflecting his underlying sleep apnea and lack of CPAP therapy. No significant bradycardia or pauses observed. Recommend continuing Metoprolol at 50 mg twice a day which represents reduced dosing from prior (previously prescribed 75 mg BID). CPAP therapy should be resumed with his home device/ mask. He may benefit symptomatically from slight uptitration of his oral diuretic regimen given the mild fluid retention as well as recent catheterization findings. Further recommendations pending evaluation by Dr. Rolon. (Blair Hannah PA-C) Cardiology attending: Pt seen and examined, agree with findings and assessment as per Blair Jaimes. Copd exacerbation with acute bronchitis and possible component of sinusitis. Slight sinus pauses overnight to be expected in the setting of not being able to wear CPAP. No further testing necessary, would recommend nasal cpap per the patient's preference. Will also start treatment for possible sinusitis. (Dwaine Rolon D.O.)
--- NOTE | 2016-10-21 11:45 | Pharmacy Progress Note ---
Glycemic Control Progress Note Date of Service Oct 21, 2016. Scope Glycemic Pharmacist consulted for glycemic control to write orders per [facility] inpatient glycemic control protocol. Objective Accuchecks BSG (last 24hrs): Test 10/20/16 11:56 10/20/16 16:55 10/20/16 20:20 10/20/16 23:56 Bedside Glucose 314 mg/dl (70-99) 296 mg/dl (70-99) 346 mg/dl (70-99) 301 mg/dl (70-99) Test 10/21/16 04:11 10/21/16 07:40 10/21/16 11:15 Bedside Glucose 200 mg/dl (70-99) 160 mg/dl (70-99) 240 mg/dl (70-99) HbA1c: Test 10/20/16 05:33 Hemoglobin A1c 7.1 % (4.5-5.6) H Recent Pertinent Medications Outpatient Anti-diabetic Regimen: * Novolin 70/30 : 65-70 units in the morning and evening per scale (can be anywhere from 10-65 units) The patient is currently receiving: * Basal insulin: Lantus 40 units SQ in morning then 65 units last night * Correctional Insulin: Novolog Correction per scale ACHS Goal Range: Low 110 mg/dL - High 140 mg/dL Correction Factor: 9 mg/dL/unit * Prandial insulin: Per carb ratio of 1 unit per 2 grams CHO consumed Risk Factors for Insulin Resistance: * Steroids: Solu-Medrol 60 mg IV q6 hours - d/c'ed this morning (received 5 doses) --> now starting prednisone 40 mg daily * Infection: possible bronchitis * Diet: type 2 diabetic diet Outpatient Anti-Diabetic Meds see above Assessment & Plan ASSESSMENT: * ADA & AACE recommend a goal blood sugar range 140-180 mg/dl for the majority of critically ill & non-critically ill patients. However, more stringent targets may be selected in individual cases. Will utilize more stringent goal of 110-140mg/dl based on patient age & comorbidities. Additionally, tighter glycemic control is warranted to facilitate infection healing. * Ms Beltran is a 76 y/o M with a PMH of COPD on chronic home oxygen, CKD stage 3 (baseline creatinine 1.8 mg/dL), and CAD admitted with possible bronchitis or diverticulitis. Patient is well controlled on his home regimen. His total daily dose is unclear as the patient states he utilizes a sliding scale at night but cannot pinpoint an average number. Estimate maximum daily dose would be 130 units/day. * Patient received a total of 251 units of subcutaneous insulin (105 units of lantus and 146 units of Novolog) plus 20 units of IV insulin. Steroids were de- escalated to oral this morning. Overnight patient received an extra 25 units of Novolog. Fasting this morning was 160 mg/dL. * For Lantus, as patient trended down throughout the night and steroids were discontinued, there was concern for stacking Lantus. Ordered 50 units of Lantus for morning as effects of steroids still present then sliding scale for evening as unsure how patient's blood sugar will rebound. * Yesterday, patient required around 30 units of Novolog with each meal. In the evening, patient was tightened to correction factor of 9 and carbohydrate ratio of 2. This may not be sufficient for early today but as the evening wears on, should provide better coverage for meals. Continue overnight Accuchecks. PLAN FOR INPATIENT GLYCEMIC CONTROL: * DECREASING Lantus to 50 units SQ this morning then Lantus 40-50 units twice daily (Lantus 40 units if blood sugar less than 140 mg/dL and Lantus 50 units if blood sugar 140 mg/dL or greater) * Continue correction factor of 9 mg/dl/unit * Continue carb ratio of 1 unit per 2 grams CHO consumed * Continuing goal range to Low 110 mg/dL - High 140 mg/dL * Please note that the plan above was derived based on current level of insulin resistance and hospital stress. These recommendations are appropriate for inpatient admission only. Plan of care upon discharge will need to be reassessed to avoid potential outpatient hypo/hyperglycemia. Thank you.
[2016-10-21] MEDS ORDERED: LORATADINE/PSEUDOEPHEDRINE 1 TAB TABCR PO ONE (12:51)
[2016-10-21] MEDS ORDERED: FLUTICASONE PROPIONATE NA SPR 16 GM BTL ONE (12:51)
[2016-10-21] MEDS ORDERED: SODIUM CHLORIDE 0.65% NA SOLN 45 ML (OCEAN) PRN (13:00)
--- NOTE | 2016-10-21 18:45 | Progress Note ---
Internal Med Progress Note Date of Service: Oct 21, 2016. Provider Documentation: SUBJECTIVE: breathing better today unable to use Cpap last night as mask did not fit well has non productive cough no fever or chills OBJECTIVE: Vital Signs-as noted below Exam: General- no sign of distress, obese Eyes-sclera non icteric ENT-NAD Neck-no JVD Lungs-diminished, + wheeze Heart-regular S1/S2 Abdomen-soft, non tender Extremities-+ 1 lower ext edema Neuro-AAO x3, no focal deficit Lab data as noted below. ASSESSMENT & PLAN: COPD EXACERBATION, ACUTE BRONCHITIS -respiratory status improving with Neb tx /02 supplement transitioned to PO Prednisone Cxray no evidence of infiltrate PO Doxycycline for bronchitis , complete X 5days course ordered for 2 step exercise tomorrow to assess if pt requires cont 02 at home BRADYCARDIA ; episodes of bradycardia /sinus pause yesterday due to KATHE pt has not been able to use CPAP for past few nights for SOB /cough appreciate in put from Cardiology Beta marciano dose adjusted ordered for CPAP at night with nasal mask ( pt will use his own device form home ) HX OF SIGMOID DIVERTICULITIS - Ct abdomen/pelvis without contrast-shows no evidence of acute diverticulitis -no GI complain at present KATHE ON CPAP - cont CPAP -can use own device DM 2 -insulin SSI /basal Lantus - usually on Metformin and Novolin 70/30-on hold for now Pharmacy consulted for glycemic control Hb A1c ~8 CAD/CABG - stable continue usual Aspirin, Metoprolol, Imdur, Losartan CKD 3 - crea at baseline DVT PROPH -moderate to high risk ordered for Subq heparin FULL CODE PER PATIENT DISPO possible discharge home tomorrow Medicine follow up with Dr Wright Vital Signs: Date Time Temp Pulse Resp B/P (MAP) Pulse Ox O2 Delivery O2 Flow Rate FiO2 10/21/16 16:00 Room Air 10/21/16 15:38 36.4 76 20 147/78 (101) 97 Room Air 10/21/16 12:57 96 Room Air 10/21/16 12:40 36.3 86 22 131/72 (91) 96 Room Air 10/21/16 12:30 Room Air 10/21/16 11:23 36.5 74 16 143/71 (95) 98 10/21/16 10:31 97 10/21/16 07:45 Room Air 10/21/16 07:25 36.4 55 20 127/64 (85) 98 10/21/16 07:05 66 16 97 Room Air 10/21/16 04:00 Room Air 10/21/16 04:00 36.5 58 20 125/70 (88) 97 Room Air 10/21/16 03:21 62 16 96 Room Air 10/21/16 00:29 36.4 78 18 128/68 (88) 94 CPAP 10/21/16 00:00 Room Air 10/20/16 23:54 58 98 10/20/16 23:46 58 18 98 Room Air 10/20/16 20:14 36.4 82 18 128/56 (80) 94 Room Air 10/20/16 20:00 Nasal Cannula 2.0 10/20/16 19:09 68 20 98 Nasal Cannula 2.0 Lab Results: Results Past 24 Hours Test 10/20/16 20:20 10/20/16 23:56 10/21/16 04:11 10/21/16 05:43 Range/Units Bedside Glucose 346 301 200 70-99 mg/dl Creatinine 2.00 0.60-1.40 mg/dl Est Creatinine Clear Calc Drug Dose 38.6 ml/min Estimated GFR () 37.0 Estimated GFR (Non- 31.9 Test 10/21/16 07:40 10/21/16 11:15 10/21/16 17:25 Range/Units Bedside Glucose 160 240 203 70-99 mg/dl
[2016-10-21] MEDS ORDERED: FLNIN (19:06)
[2016-10-21] MEDS ORDERED: LORA10TA57 PO (19:06)
[2016-10-21] MEDS ORDERED: DXY100 PO ×2 (19:06)
--- NOTE | 2016-10-21 19:07 | Discharge Instructions ---
Discharge Instructions Date of Service Oct 21, 2016. Admission Reason for Admission: Copd Exacerbation Discharge Discharge Diagnosis / Problem: COPD EXACERBATION Discharge Goals Goal(s): Decrease discomfort, Diagnostic testing, Therapeutic intervention Activity Recommendations Activity Limitations: resume your previous activity . Instructions / Follow-Up Instructions / Follow-Up HOSPITAL FOLLOW UP 10/26/2016 11:20 AM Levy Stout MD Internal Medicine [facility] Current Hospital Diet Patient's current hospital diet: Diabetes Type 2 Diet, AHA Diet (Heart Healthy) Discharge Diet Recommended Diet: AHA Diet (Heart Healthy), Diabetes Type 2 Diet Pending Studies Studies pending at discharge: no Laboratory Results Hemoglobin A1c Test 10/20/16 05:33 Range/Units Estimated Average Glucose 157 mg/dl Hemoglobin A1c 7.1 H 4.5-5.6 % Medical Emergencies . Who to Call and When: Medical Emergencies: If at any time you feel your situation is an emergency, please call 911 immediately. . Non-Emergent Contact Non-Emergency issues call your: Primary Care Provider . . "Provider Documentation" section prepared by Sabina Amanda. . VTE Core Measure Inpt VTE Proph given/why not?: Unfractionated heparin SQ, SCD's
[2016-10-22] VITALS (9 sets, daily range): BP systolic 118–195; BP diastolic 66–80; PULSE 62–71; TEMP 36.4–36.6; O2SAT 95–98
[2016-10-22] MEDS: INSULIN ASPART 100 UNITS/ML 3 ML PEN SC SCH ×3 (03:54→12:02)
[2016-10-22] MEDS: HEPARIN SOD 5000 UNIT/0.5 ML CARP SQ SCH ×2 (06:30→14:30)
[2016-10-22] MEDS: ALBUT/IPRATROP 3MG/0.5MG NEB 3 ML VIAL INH SCH ×3 (07:36→15:57)
[2016-10-22] MEDS: LOSARTAN POTASSIUM 25 MG TAB PO SCH (07:50)
[2016-10-22] MEDS: TORSEMIDE 20 MG TAB PO SCH (07:50)
[2016-10-22] MEDS: ASPIRIN 81 MG ECTAB PO SCH (07:51)
[2016-10-22] MEDS: METOPROLOL TARTRATE 50 MG TAB PO SCH (07:51)
[2016-10-22] MEDS: ATORVASTATIN 40 MG TAB PO SCH (07:51)
[2016-10-22] MEDS: PANTOprazole SOD 40 MG TAB PO SCH (07:51)
[2016-10-22] MEDS: ISOSORBIDE MONONITRATE 30 MG TABCR PO SCH (07:51)
[2016-10-22] MEDS: DOXYCYCLINE HYCLATE 100 MG CAP PO SCH (07:51)
[2016-10-22] MEDS ORDERED: LORATADINE/PSEUDOEPHEDRINE 1 TAB TABCR PO SCH (09:00)
[2016-10-22] MEDS ORDERED: FLUTICASONE PROPIONATE NA SPR 16 GM BTL SCH (09:00)
--- NOTE | 2016-10-22 10:34 | Pharmacy Progress Note ---
Glycemic Control Progress Note Date of Service Oct 22, 2016. Scope Glycemic Pharmacist consulted for glycemic control to write orders per [facility] inpatient glycemic control protocol. Objective Accuchecks BSG (last 24hrs): Test 10/21/16 11:15 10/21/16 17:25 10/21/16 19:48 10/21/16 23:44 Bedside Glucose 240 mg/dl (70-99) 203 mg/dl (70-99) 236 mg/dl (70-99) 100 mg/dl (70-99) Test 10/22/16 03:53 10/22/16 07:09 Bedside Glucose 73 mg/dl (70-99) 132 mg/dl (70-99) HbA1c: Test 10/20/16 05:33 Hemoglobin A1c 7.1 % (4.5-5.6) H Recent Pertinent Medications The patient is currently receiving: * Basal insulin: Lantus 50 units every 12 hours * Correctional Insulin: Novolog Correction per scale ACHS Goal Range: Low 110 mg/dL - High 140 mg/dL Correction Factor: 9 mg/dL/unit * Prandial insulin: Per carb ratio of 1 unit per 2 grams CHO consumed * Oral Agents: None at this time Outpatient Anti-Diabetic Meds * Novolin 70/30 : 65-70 units in the morning and evening per scale (can be anywhere from 10-65 units) Assessment & Plan ASSESSMENT: * See progress note from 10/21 for more background info, in short: * Pt receiving SQ basal bolus insulin regimen for hyperglycemia secondary to baseline DM (outpatient regimen on hold),stress/infection, steroids * Patient is currently receiving an average of 200 units of insulin per day * 100 units of basal insulin * BSGs ranging 73 - 236 mg/dl over the past 24hrs * Steroids were reduced yesterday from Solu-medrol 60 IV q6h to prednisone 40 mg daily, causing a drastic change to insulin requirements. I placed the Lantus on hold this AM since the patient received reji sarmientoers x 2 and OJ overnight for "low" BSGs of 100 and 73. * Patient will most likely be d/c'd today so will need to provide transition to outpatient regimen * Changes needed to insulin regimen: * Hold Lantus this AM secondary to "low" BSGs overnight. Will re-evaluate dose based on BSG at lunch today, anticipating new basal dose to be 60-80 units/ day * Will also loosen both CF/CR based on est TDD of 150 units PLAN FOR INPATIENT GLYCEMIC CONTROL: * Hold Lantus this AM * Will give 40 units of Lantus at lunch as long as BSG not low * Loosen CF to 10 * Loosen CR to 4 RECOMMENDATIONS FOR DISCHARGE: * Resume Novolin 70/30 regimen starting this evening. I worry about patient utilizing his "sliding scale" with evening dose of 70/30 because his PM BSGs will be the highest from once daily prednisone, then will drop overnight as the steroid effects wear off. Would recommend for him to take 90 units qAM while on 30 mg or 40 mg of prednisone and reduce to usual dose when on prednisone 20 mg daily or less. If he does this, should not have issues with the "sliding scale" PM dose. Thank you.
--- NOTE | 2016-10-22 11:35 | Cardiology Follow-Up ---
Subjective General Date of Service: Oct 22, 2016. Chief Complaint: Dyspnea Pt evaluation today including: conversation w/ patient, physical exam, chart review, lab review, review of studies, review of inpatient medication list History of Present Illness Patient seen and examined. Feeling better, dyspnea improved. Less cough. No chest pain or palpitations. No lightheadedness, dizziness, near syncope, or syncope. Telemetry: Sinus. No significant pauses. Allergies Coded Allergies: Prednisone (Unverified Adverse Reaction, Unknown, INCREASE BLOOD SUGAR, ) Social History Hx Tobacco Use In Past Year?: No Hx Alcohol Use - Type And Amou: No Hx Substance Use - Type And Am: No Problem List Medical Problems: (1) Chest pain Status: Acute (2) COPD exacerbation Status: Acute (3) Dependence on supplemental oxygen Status: Acute (4) Left-sided headache Status: Acute (5) Stroke-like symptoms Status: Acute Physical Exam Vital Signs Last Vital Signs Documentation Date Time Temp Pulse Resp B/P (MAP) Pulse Ox O2 Delivery O2 Flow Rate FiO2 10/22/16 09:37 118/66 (83) 10/22/16 07:52 36.4 62 16 98 BiPAP 10/22/16 07:36 21 10/20/16 20:00 2.0 Physical Exam Constitutional: General Apperance: obese Level of Distress: NAD Ambulation: ambulating normally Psychiatric: Mental Status: active & alert Orientation: to time, to place, to person Memory: recent memory normal, remote memory normal Head: normocephalic Neck: pertinent finding (No overt JVD) Lungs: Auscultation: no rales/crackles, deminished air movement, decreased breath sounds, expiratory wheezing Cardiovascular: Heart Auscultation: RRR Extremities: edema Neurologic: Cranial Nerves: grossly intact Assessment and Plan Assessment and Plan 76 year old male admitted with an acute exacerbation of his obstructive pulmonary disease. Mild nocturnal bradycardia with minimal sinus pauses observed , likely reflecting his underlying sleep apnea and lack of CPAP therapy. No significant bradycardia or pauses observed. Recommend continuing Metoprolol at 50 mg twice a day which represents reduced dosing from prior (previously prescribed 75 mg BID). CPAP therapy should be resumed with his home device/ mask. He may benefit symptomatically from slight uptitration of his oral diuretic regimen given the mild fluid retention as well as recent catheterization findings. No further cardiac workup planned this hospitalization. Please call with any questions or concerns. Cardiology attending: Pt seen and examined, agree with findings and assessment as per Blair Jaimes. SOB improving with treatment for copd exacerbation as well as sinusitis. No further cardiac testing necessary. Ok to d/c to home from cardiac standpoint. Laboratory Results Last 24 Hours Test 10/21/16 17:25 10/21/16 19:48 10/21/16 23:44 10/22/16 03:53 Bedside Glucose 203 mg/dl 236 mg/dl 100 mg/dl 73 mg/dl Test 10/22/16 06:05 10/22/16 07:09 10/22/16 11:11 Creatinine 2.00 mg/dl Est Creatinine Clear Calc Drug Dose 38.6 ml/min Estimated GFR () 37.0 Estimated GFR (Non- 31.9 Bedside Glucose 132 mg/dl 131 mg/dl
[2016-10-22] MEDS ORDERED: INSULIN GLARGINE SOLOSTAR 100 UNITS/ML 3 ML PEN SC ONE (11:45)
--- NOTE | 2016-10-22 16:15 | Discharge Summary ---
Discharge Summary Date of Service Oct 22, 2016. Discharge Summary Admission Date: Oct 19, 2016 at 21:19 Discharge Date: Oct 22, 2016 Discharge Disposition: Home Principal Diagnosis: COPD EXACERBATION Procedures: CT ABDOMEN /PELVIS : IMPRESSION: Mild chronic sigmoid diverticulosis.. 2. No evidence for acute diverticulitis. 3. Mild nonspecific infiltrative change right mid kidney/perinephric region. CHEST XRAY : no evidence of infiltrate or effusion Consultations: CARDIOLOGY Medication Reconciliation New Medications: Doxycycline Hyclate (Doxycycline Hyclate) 100 Mg Cap 100 MG PO BID for 2 Days, #4 CAP Fluticasone Propionate (Fluticasone Propionate) 50 Mcg/Act Spr 2 SPRAYS NA DAILY for 30 Days, #1 INHALER 2 Refills Loratadine & Pseudoephedrine (Claritin-D 24 Hour) 1 Tab Tab 1 TAB PO QAM, #30 TAB Continued Medications: Aspirin (Aspirin Ec) 81 Mg Tab 81 MG PO QAM Atorvastatin (Lipitor) 80 Mg Tab 80 MG PO DAILY Cholecalciferol (Vitamin D) 2,000 Unit Tab 4000 INTER.UNIT PO QAM Fenofibrate (Fenofibrate Micronized) 200 Mg Cap 200 MG PO DAILY TAKE THIS MEDICATION ONCE DAILY WITH A MEAL Folic Acid (Folic Acid) 1 Mg Tab 1 MG PO DAILY Insulin Isophan/Regular (Novolin 70/30) Susp 1 DOSE SC QPM, BTL PM DOSAGE DIRECTED BY SLIDING SCALE Insulin Isophan/Regular (Novolin 70/30) Susp 65-70 UNITS SC QAM, BTL Isosorbide Mononitrate Ext Rel (Imdur Ext Rel) 30 Mg Tabcr 30 MG PO DAILY Losartan Potassium (Losartan Potassium) 25 Mg Tab 25 MG PO DAILY Metformin Hcl (Glucophage) 1,000 Mg Tab 1000 MG PO BID TAKE THIS MEDICATION WITH MORNING AND EVENING MEALS Metoprolol Tartrate (Metoprolol Tartrate) 50 Mg Tab 50 MG PO BID Multivitamins/Minerals (Mvi With Minerals) Tab 1 TAB PO QAM, TAB Nitroglycerin (Nitrostat) 0.4 Mg Sub 0.4 MG UT UD PRN for Chest Pain, BTL PLACE ONE TABLET UNDER THE TONGUE EVERY 5 MINUTES FOR UP TO 3 DOSES IF NEEDED FOR CHEST PAIN. Omeprazole (Prilosec) 20 Mg Cap 20 MG PO QAM Torsemide (Torsemide) 20 Mg Tab 10 MG PO DAILY Admission Information HPI (per Admitting provider): 76 year old male with history of COPD, on chronic oxygen 2 liters NC (used with exertion), KATHE on CPAP, DM 2 on Insulin, other problems noted below presenting with shortness of breath and productive cough x [address] Wright for PCP. Patient reports 2 day history of productive cough, progressive shortness of breath associated with sweats. He then presented to the ER. Patient received with saturation 98% on room air, diffuse wheezing, CXR did not reveal pneumonia though. BNP normal. He was given Duoneb, Solumedrol with some improvement of symptoms. On exam, patient sitting in bed, not in distress, speaks in sentences. State he feels only slightly better. Denies active shortness of breath, chest pain, dizziness, palpitations. Also reports LLQ pain for the past few days, no melena/hematochezia, nausea. This reminds him of previous bouts of diverticulitis. Physical Exam (per Admitting): General Appearance: WD/WN, no apparent distress Head: normocephalic, atraumatic Eyes: normal inspection, EOMI, sclerae normal ENT: normal ENT inspection, hearing grossly normal, pharynx normal Neck: supple, no adenopathy, thyroid normal, no JVD Respiratory/Chest: chest non-tender, no respiratory distress, no accessory muscle use, + pertinent finding (scattered wheezing and bilaterally) Cardiovascular: regular rate, rhythm, no edema, no JVD, no murmur Abdomen/GI: normal bowel sounds, soft, no organomegaly, + pertinent finding (mild LLQ tenderness) Back: normal inspection, no CVA tenderness Extremities/Musculoskelatal: normal inspection, no calf tenderness, normal capillary refill, no pedal edema, normal range of motion 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, no motor/sensory deficits, alert , normal mood/affect, oriented x 3 Skin: normal color, warm/dry, no rash Lymphatic: no adenopathy Hospital Course pt found walking on hallway , not requiring supplemental 02 , no CAPONE or cough feels like his baseline stable to be discharged home today P/E: Exam: General- no sign of distress, obese Eyes-sclera non icteric ENT-NAD Neck-no JVD Lungs-diminished, no wheeze or rales Heart-regular S1/S2 Abdomen-soft, non tender Extremities-+ 1 lower ext edema Neuro-AAO x3, no focal deficit COPD EXACERBATION, ACUTE BRONCHITIS resolved -respiratory status improved to baseline not requiring 02 no wheeze or rales Cxray no evidence of infiltrate PO Doxycycline for bronchitis , complete X 5days course stable to be discharged home today BRADYCARDIA ; no further episode since using CPAP at night episodes of bradycardia /sinus pause possible due to KATHE appreciate in put from Cardiology Beta marciano dose adjusted ordered for CPAP at night with nasal mask ( pt to use his own device form home ) HX OF SIGMOID DIVERTICULITIS - Ct abdomen/pelvis without contrast-shows no evidence of acute diverticulitis -no GI complain at present , no pain or discomfort, tolerating diet -no Abx needed , KATHE ON CPAP - cont CPAP -can use own device DM 2 -insulin SSI /basal Lantus - usually on Metformin and Novolin 70/30-on hold for now Pharmacy consulted for glycemic control Hb A1c ~8 CAD/CABG - stable continue usual Aspirin, Metoprolol, Imdur, Losartan CKD 3 - crea at baseline DVT PROPH -moderate to high risk ordered for Subq heparin FULL CODE PER PATIENT DISPO stable to be discharged home today Medicine follow up with Dr Wright Total time spent on discharge = 35 MINS This includes examination of the patient, discharge planning, medication reconciliation, and communication with other providers. Discharge Instructions Discharge Instructions Date of Service Oct 21, 2016. Admission Reason for Admission: Copd Exacerbation Discharge Discharge Diagnosis / Problem: COPD EXACERBATION Discharge Goals Goal(s): Decrease discomfort, Diagnostic testing, Therapeutic intervention Activity Recommendations Activity Limitations: resume your previous activity . Instructions / Follow-Up Instructions / Follow-Up HOSPITAL FOLLOW UP 10/26/2016 11:20 AM Levy Stout MD Internal Medicine [facility] Current Hospital Diet Patient's current hospital diet: Diabetes Type 2 Diet, AHA Diet (Heart Healthy) Discharge Diet Recommended Diet: AHA Diet (Heart Healthy), Diabetes Type 2 Diet Pending Studies Studies pending at discharge: no Laboratory Results Hemoglobin A1c Test 10/20/16 05:33 Range/Units Estimated Average Glucose 157 mg/dl Hemoglobin A1c 7.1 H 4.5-5.6 % Medical Emergencies . Who to Call and When: Medical Emergencies: If at any time you feel your situation is an emergency, please call 911 immediately. . Non-Emergent Contact Non-Emergency issues call your: Primary Care Provider . . "Provider Documentation" section prepared by Sabina Amanda. . VTE Core Measure Inpt VTE Proph given/why not?: Unfractionated heparin SQ, SCD's Additional Copies To Levy Stout M.D.
[2016-10-22] MEDS ORDERED: INSULIN GLARGINE SOLOSTAR 100 UNITS/ML 3 ML PEN SC SCH (21:00)
[2016-10-22] MEDS ORDERED: LEVOFLOXACIN 250MG / D5W IV SCH (22:00)
== END 2016-10-22 16:30 | disposition home or self-care (01) | DRG 190 ==
LOC: EDBD 18:30 → C.EDA 18:35 → C.MED 21:19 → ENRESERV 21:52 → EDBEDREQ 22:02
PROVIDERS: ADMIT Internal Medicine; ATTEND Hospitalist
DX: J44.1 Chronic obstructive pulmonary disease with (acute) exacerbation (principal); J96.21 Acute and chronic respiratory failure with hypoxia; Z68.41 Body mass index [BMI] 40.0-44.9, adult; J44.0 Chronic obstructive pulmonary disease with (acute) lower respiratory infection; J20.9 Acute bronchitis, unspecified; R10.32 Left lower quadrant pain; G47.33 Obstructive sleep apnea (adult) (pediatric); E11.22 Type 2 diabetes mellitus with diabetic chronic kidney disease; R00.1 Bradycardia, unspecified; I25.10 Atherosclerotic heart disease of native coronary artery without angina pectoris; I12.9 Hypertensive chronic kidney disease with stage 1 through stage 4 chronic kidney disease, or unspecified chronic kidney disease; N18.3 Chronic kidney disease, stage 3 (moderate); E78.5 Hyperlipidemia, unspecified; E55.9 Vitamin D deficiency, unspecified; E66.9 Obesity, unspecified; Z99.81 Dependence on supplemental oxygen; Z86.73 Personal history of transient ischemic attack (TIA), and cerebral infarction without residual deficits; Z85.46 Personal history of malignant neoplasm of prostate; Z86.010 Personal history of colon polyps; Z87.19 Personal history of other diseases of the digestive system; Z95.1 Presence of aortocoronary bypass graft; Z95.5 Presence of coronary angioplasty implant and graft; Z87.891 Personal history of nicotine dependence; Z79.4 Long term (current) use of insulin; Z79.82 Long term (current) use of aspirin; Z79.84 Long term (current) use of oral hypoglycemic drugs; Z79.899 Other long term (current) drug therapy; Z82.49 Family history of ischemic heart disease and other diseases of the circulatory system; Z83.6 Family history of other diseases of the respiratory system; Z83.2 Family history of diseases of the blood and blood-forming organs and certain disorders involving the immune mechanism

== ENCOUNTER 2016-10-23 10:59 | Inpatient (IN) | payer OTHER ==
[~2016-10-23] VITALS: Ht 167.6 cm; Wt 118.4 kg
[~2016-10-23 10:59] MED LIST changes: +ATOR-26 PO; +CZR25 PO; +DMD20 PO; +DXY100 PO; +FLNIN; +FLV1 PO; +INSU70IN2 SC; +LFB/200 PO; +LORA10TA57 PO; +METF-384 PO; -METO50TA16 PO; +METO50TA17 PO; +MULTTAB PO; +NITR0.4S UT; -TORS10TA14 PO
[2016-10-23] MEDS ORDERED: SODIUM CHLORIDE 0.9% 1000ML 1,000 ML IV STA (11:50)
--- NOTE | 2016-10-23 12:03 | EMERGENCY ROOM VISIT NOTE ---
History Report prepared by Minaibjorgito: Jenny Keen Under the Supervision of: Dr. Paola Blanco M.D. First contact with patient: 11:17 Chief Complaint: CONFUSION Stated Complaint: CONFUSION Nursing Triage Summary: Pt thinks he is having a reaction to the prednisone he has been on, son states he is confused at times. Pt answerinf questions appropriately, Neuro check intact, Lungs with wheezes, pt with hacking cough, positive pulses, pt states he almost passes out when he coughs. Son states pt veery hyper active and he is seeing things that are crazy History of Present Illness The patient is a 76 year old male who presents to the Emergency Room with complaints of episodes of confusion and hallucinations beginning last night. The patient was seen in the ED a week ago for COPD exacerbation and was discharged last night. Per son, the patient was hyperactive and hallucinating last night. The son states that the patient was sleep deprived from his stay in the hospital and that he told the patient to "put his sleep apnea machine on and get some rest" last night. The son says the patient's hallucinations and confusion continued this morning and he decided to take the patient to the ED. The patient notes that he has been having coughing episodes, difficulty breathing, and difficulty urinating. The patient has diabetes and he states that his levels have been "all over the place" over the past day. The patient is on water pills. Source of History: patient Onset: last night Timing: other (episodes) Associated Symptoms: + cough, + SOB, + urinary symptoms Note: Pt notes hallucinations and confusion. Review of Systems See HPI for pertinent positives & negatives. A total of 10 systems reviewed and were otherwise negative. Past Medical & Surgical Medical Problems: (1) Altered mental state (2) CKD (chronic kidney disease), stage III (3) Coronary artery disease (4) History of Mesenteric Atherosclerosis (5) HLD (hyperlipidemia) (6) SNOW (iron deficiency anemia) (7) IDDM (insulin dependent diabetes mellitus) (8) Prostate cancer (9) Psoriatic arthritis (10) Sleep apnea (11) TIA (transient ischemic attack) Surgical Problems: (1) H/O colonoscopy (2) History of esophagogastroduodenoscopy (EGD) (3) Hx of CABG Family History Bleeding disorder FH: CAD (coronary artery disease) FH: cancer Social History Smoking Status: Former Smoker Alcohol Use: none Housing Status: lives with family Current/Historical Medications Scheduled Aspirin (Aspirin Ec), 81 MG PO QAM Atorvastatin (Lipitor), 80 MG PO DAILY Cholecalciferol (Vitamin D), 4,000 INTER.UNIT PO QAM Doxycycline Hyclate (Doxycycline Hyclate), 100 MG PO BID Fenofibrate (Fenofibrate Micronized), 200 MG PO DAILY Fluticasone Propionate (Fluticasone Propionate), 2 SPRAYS NA DAILY Folic Acid (Folic Acid), 1 MG PO DAILY Insulin Isophan/Regular (Novolin 70/30), 1 DOSE SC QPM Insulin Isophan/Regular (Novolin 70/30), 65-70 UNITS SC QAM Isosorbide Mononitrate Ext Rel (Imdur Ext Rel), 30 MG PO DAILY Loratadine & Pseudoephedrine (Claritin-D 24 Hour), 1 TAB PO QAM Losartan Potassium (Losartan Potassium), 25 MG PO DAILY Metformin Hcl (Glucophage), 1,000 MG PO BID Metoprolol Tartrate (Metoprolol Tartrate), 50 MG PO BID Multivitamins/Minerals (Mvi With Minerals), 1 TAB PO QAM Omeprazole (Prilosec), 20 MG PO QAM Torsemide (Torsemide), 10 MG PO DAILY Scheduled PRN Nitroglycerin (Nitrostat), 0.4 MG UT UD PRN for Chest Pain Allergies Coded Allergies: Prednisone (Unverified Adverse Reaction, Unknown, INCREASE BLOOD SUGAR, 10/23/16) Physical Exam Vital Signs Date Time Temp Pulse Resp B/P (MAP) Pulse Ox O2 Delivery O2 Flow Rate FiO2 10/23/16 14:24 105 20 165/69 96 Room Air 10/23/16 14:01 105 10/23/16 12:34 84 20 144/89 97 Room Air 10/23/16 12:32 36.6 81 26 144/89 95 Room Air 10/23/16 11:20 84 18 178/80 96 Room Air 10/23/16 11:16 84 10/23/16 11:01 36.5 82 18 170/82 94 Room Air Physical Exam Vital signs reviewed. General: Obese. chronically ill-appearing male, in no significant distress. Speaking without difficulty HEENT: No scleral icterus, PERRLA, neck supple. Atraumatic. Cardiovascular: Regular rate and rhythm, no extra sounds. Pulmonary: Clear to auscultation bilaterally, forced expiratory wheezes Abdomen: Soft, nontender, nondistended, positive bowel sounds. Musculoskeletal: Atraumatic, no peripheral edema. Neurologic: Patient awake alert and oriented x 3, full strength in all 4 extremities. Cranial nerves 2 through 12 grossly intact. Skin: Warm, dry, no rash Medical Decision & Procedures ER Provider Diagnostic Interpretation: Radiology results as stated below per my review and radiologist interpretation: HEAD WITHOUT CONTRAST (CT) Findings: The paranasal sinuses and mastoid air cells are clear. The calvarium and skull base are intact. The ventricles and sulci are within normal limits. There is no mass, hematoma, midline shift, or acute infarct. Moderate age-related chronic small vessel change are scattered areas of atrophy Impression: No acute intracranial abnormality. Chronic and age-related change. The above report was generated using voice recognition software. It may contain grammatical, syntax or spelling errors. Electronically signed by: Blair Lama M.D. Radiology results as stated below per my review and radiologist interpretation: Laboratory Results 10/23/16 12:20 Red Blood Count 4.31, Mean Corpuscular Volume 90.7, Mean Corpuscular Hemoglobin 30.2, Mean Corpuscular Hemoglobin Concent 33.2, Mean Platelet Volume 9.4, Neutrophils (%) (Auto) 74.9, Lymphocytes (%) (Auto) 18.7, Monocytes (%) (Auto) 5.3, Eosinophils (%) (Auto) 0.4, Basophils (%) (Auto) 0.1, Neutrophils # (Auto) 5.93, Lymphocytes # (Auto) 1.48, Monocytes # (Auto) 0.42, Eosinophils # (Auto) 0.03, Basophils # (Auto) 0.01 10/23/16 12:20 Test 10/23/16 12:20 White Blood Count 7.92 K/uL (4.8-10.8) Red Blood Count 4.31 M/uL (4.7-6.1) Hemoglobin 13.0 g/dL (14.0-18.0) Hematocrit 39.1 % (42-52) Mean Corpuscular Volume 90.7 fL (80-100) Mean Corpuscular Hemoglobin 30.2 pg (25-34) Mean Corpuscular Hemoglobin Concent 33.2 g/dl (32-36) Platelet Count 239 K/uL (130-400) Mean Platelet Volume 9.4 fL (7.4-10.4) Neutrophils (%) (Auto) 74.9 % Lymphocytes (%) (Auto) 18.7 % Monocytes (%) (Auto) 5.3 % Eosinophils (%) (Auto) 0.4 % Basophils (%) (Auto) 0.1 % Neutrophils # (Auto) 5.93 K/uL (1.4-6.5) Lymphocytes # (Auto) 1.48 K/uL (1.2-3.4) Monocytes # (Auto) 0.42 K/uL (0.11-0.59) Eosinophils # (Auto) 0.03 K/uL (0-0.5) Basophils # (Auto) 0.01 K/uL (0-0.2) RDW Standard Deviation 43.8 fL (36.4-46.3) RDW Coefficient of Variation 13.3 % (11.5-14.5) Immature Granulocyte % (Auto) 0.6 % Immature Granulocyte # (Auto) 0.05 K/uL (0.00-0.02) Anion Gap 6.0 mmol/L (3-11) Est Creatinine Clear Calc Drug Dose 41.3 ml/min Estimated GFR () 39.4 Estimated GFR (Non- 34.0 BUN/Creatinine Ratio 17.8 (10-20) Calcium Level 8.9 mg/dl (8.5-10.1) Magnesium Level 1.3 mg/dl (1.8-2.4) Total Bilirubin 0.4 mg/dl (0.2-1) Direct Bilirubin 0.1 mg/dl (0-0.2) Aspartate Amino Transf (AST/SGOT) 43 U/L (15-37) Alanine Aminotransferase (ALT/SGPT) 40 U/L (12-78) Alkaline Phosphatase 56 U/L (45-117) Total Protein 7.0 gm/dl (6.4-8.2) Albumin 3.3 gm/dl (3.4-5.0) Laboratory results per my review. Medications Administered Medications (Trade) Dose Ordered Sig/Camelia Route Start Time Stop Time Status Last Admin Dose Admin Sodium Chloride 1,000 ml @ 125 mls/hr Q8H STAT IV 10/23/16 11:50 10/23/16 16:04 DC 10/23/16 12:32 125 MLS/HR Potassium Chloride (Klor-Con M10) 40 meq NOW STAT PO 10/23/16 13:40 10/23/16 13:42 DC 10/23/16 13:40 40 MEQ Magnesium Sulfate (Magnesium Sulfate) 2 gm NOW STAT IV 10/23/16 13:40 10/23/16 13:42 DC 10/23/16 14:11 2 GM ECG Indication: SOB/dyspnea Rate (beats per minute): 83 Rhythm: normal sinus Findings: no acute ischemic change, other (previous inferior infarct, anterior lateral T-wave abnormality, right axis deviation) ED Course 1147: Past medical records reviewed. The patient was evaluated in room B2. A complete history and physical examination was performed. 1150: Sodium Chloride 1000 ml @ 125 mls/hr IV. 1340: Magnesium Sulfate 2 gm IV, Potassium Chloride 40 meq PO. 1344: I reviewed the patient's case with Dr. Weir. He will evaluate the patient for further management. 1350: Upon reevaluation, the patient is resting comfortably. I discussed laboratory and radiographic results with the patient. He verbalized agreement of the treatment plan. I spoke with Dr. Lloyd of the [facility] Hospitalist Service. The patient will be evaluated for further management and care. Medical Decision Differential diagnosis: Etiologies such as infections, reactive airway disease, pneumonia, pneumothorax , COPD, CHF, cardiac ischemia, pulmonary embolism, musculoskeletal, gastrointestinal, medication induced hallucinations, hypoglycemia as well as others were entertained. This patient was evaluated and appeared to be in no significant distress. IV access was obtained and laboratory work was drawn. The patient was placed on the cardiac catheterization technologist and found to be in a normal sinus rhythm. CT scan of the head was obtained and is normal. Patient's blood glucose is in the 50s. He was given oral food and fluids. A meal tray was ordered. The patient does not seem to be having any difficulty speaking or maintaining his oxygenation. He was gently hydrated with normal saline solution and his electrolytes were repleted, including potassium and magnesium. As the patient was recently discharged from the hospital yesterday, the hospitalist service was contacted for consultation. Patient is aware of the plan and agrees. Medication Reconcilliation Current Medication List: was personally reviewed by me Blood Pressure Screening Patient's blood pressure: Elevated blood pressure Blood pressure disposition: Referred to PCP (Referred to hospitalist) Consults Time Called: 1340 Consulting Physician: Dr. Weir Returned Call: [phone] Discussed the patient's case. He will evaluate the patient for further management. Impression Primary Impression: Hypokalemia Additional Impressions: Hypomagnesemia Hypoglycemia Altered mental status Scribe Attestation The scribe's documentation has been prepared under my direction and personally reviewed by me in its entirety. I confirm that the note above accurately reflects all work, treatment, procedures, and medical decision making performed by me. Departure Information Dispostion Being Evaluated By Hospitalist Referrals No Doctor, Assigned (PCP) Patient Instructions My [facility] Problem Qualifiers
[2016-10-23 12:44] LABS: BASO % 0.1 %; BASO ABS # 0.01 K/uL (0-0.2); COMPLETE YES; EOS % 0.4 %; HEMATOCRIT 39.1 % (42-52); IG% 0.6 %; LYMPH % 18.7 %; LYMPH ABS # 1.48 K/uL (1.2-3.4); MEAN CELL VOLUME 90.7 fL (80-100); MEAN CORPUSCULAR HEMOGLOBIN 30.2 pg (25-34); MEAN CORPUSCULAR HGB CONC 33.2 g/dl (32-36); MEAN PLATELET VOLUME 9.4 fL (7.4-10.4); MONO % 5.3 %; NEUT % 74.9 %; PLATELET COUNT 239 K/uL (130-400); RED BLOOD COUNT 4.31 M/uL (4.7-6.1); WHITE BLOOD COUNT 7.92 K/uL (4.8-10.8)
--- NOTE | 2016-10-23 12:54 | DIAGNOSTIC IMAGING REPORT ---
HEAD WITHOUT CONTRAST (CT) CT DOSE: 773.57 mGy.cm HISTORY: Mental status change AMS, hallucinations TECHNIQUE: Multiaxial CT images of the head were performed without the use of intravenous contrast. A dose lowering technique was utilized adhering to the principles of ALARA. Comparison: 02/04/2016 Findings: The paranasal sinuses and mastoid air cells are clear. The calvarium and skull base are intact. The ventricles and sulci are within normal limits. There is no mass, hematoma, midline shift, or acute infarct. Moderate age-related chronic small vessel change are scattered areas of atrophy Impression: No acute intracranial abnormality. Chronic and age-related change. The above report was generated using voice recognition software. It may contain grammatical, syntax or spelling errors. Electronically signed by: Blair Lama M.D. 10/23/2016 12:52 PM Dictated Date/Time: 10/23/2016 12:51 PM
[2016-10-23 13:00] LABS: CREATININE 1.9 mg/dl (0.60-1.40)
[2016-10-23 13:01] LABS: BUN/CREATININE RATIO 17.8 (10-20); CALCIUM 8.9 mg/dl (8.5-10.1); MAGNESIUM 1.3 mg/dl (1.8-2.4); POTASSIUM 3.1 mmol/L (3.5-5.1)
[2016-10-23] MEDS ORDERED: POTASSIUM CHLORIDE 10 MEQ TABCR PO STA (13:40)
[2016-10-23] MEDS ORDERED: MAGNESIUM SULFATE 1GM / D5W 1 GM BAG IV STA (13:40)
[2016-10-23] MEDS ORDERED: GLUCOSE 40% GEL 15 GM TUBE PO PRN (14:45)
[2016-10-23] MEDS ORDERED: TORSEMIDE 20 MG TAB PO ONE (14:45)
[2016-10-23] MEDS ORDERED: GLUCOSE 10 TABS/TUBE PO PRN (14:45)
[2016-10-23] MEDS ORDERED: ONDANSETRON INJ 2 MG/ML 2 ML VIAL IV PRN (14:45)
[2016-10-23] MEDS ORDERED: MAGNESIUM HYDROXIDE SUSP 30 ML UDC PO PRN (14:45)
[2016-10-23] MEDS ORDERED: DEXTROSE 50% 50 ML SYR IV PRN (14:45)
[2016-10-23] MEDS ORDERED: GLUCAGON FOR INJ 1 MG VIAL SQ PRN (14:45)
[2016-10-23] MEDS ORDERED: PHARMACY GLYCEMIC MGMT CONSULT SCH (14:58)
[2016-10-23] MEDS ORDERED: LEVALBUTEROL/IPRATROPIUM NEB INH SCH (15:00)
--- NOTE | 2016-10-23 15:19 | Pharmacy Progress Note ---
Glycemic Control Intl Consult Date of Service Oct 23, 2016. Scope Glycemic Pharmacist consulted by Dr Lloyd on 10/23/16 for glycemic control and to write orders per [facility] inpatient glycemic control protocol Objective Weight (Kilograms): 118.400 Accuchecks BSG (last 24hrs): Test 10/23/16 12:00 10/23/16 12:20 Bedside Glucose 53 mg/dl (70-99) Random Glucose 50 mg/dl (70-99) Laboratory Data (last 24hrs) Test 10/23/16 12:20 Anion Gap 6.0 mmol/L BUN/Creatinine Ratio 17.8 Blood Urea Nitrogen 34 mg/dl Creatinine 1.90 mg/dl Potassium Level 3.1 mmol/L Sodium Level 137 mmol/L White Blood Count 7.92 K/uL Red Blood Count 4.31 M/uL Hemoglobin 13.0 g/dL Hematocrit 39.1 % Mean Corpuscular Volume 90.7 fL Mean Corpuscular Hemoglobin 30.2 pg Mean Corpuscular Hemoglobin Concent 33.2 g/dl Platelet Count 239 K/uL Mean Platelet Volume 9.4 fL Neutrophils (%) (Auto) 74.9 % Lymphocytes (%) (Auto) 18.7 % Monocytes (%) (Auto) 5.3 % Eosinophils (%) (Auto) 0.4 % Basophils (%) (Auto) 0.1 % Neutrophils # (Auto) 5.93 K/uL Lymphocytes # (Auto) 1.48 K/uL Monocytes # (Auto) 0.42 K/uL Eosinophils # (Auto) 0.03 K/uL Basophils # (Auto) 0.01 K/uL Recent Pertinent Medications Outpatient Anti-diabetic Regimen: * Novolin 70/30 65-70 units SQ w/ breakfast + a second dose in the evening with supper (however patient was unable to provide info on his evening doses) Risk Factors for Insulin Resistance: * Infection: Doxycycline PO for COPD exac * Diet: Type 1 DM diet has been ordered Assessment & Plan ASSESSMENT: * Type 2 diabetic admitted for confusion and COPD exacerbation * Patient is known to glycemic control service from previous admission * When interviewed about his home insulin regimen he is unable to provide specific doses. He has been using 65-70 units with breakfast however his evening dose is variable. In the past he had used ~40 units w/ dinner but it sounds as though his evening doses have been decreasing. * Will initiate a basal/bolus insulin regimen at this time based upon an anticipated total daily requirement of ~100 units while tolerating a diet. Will split basal insulin dose BID to allow for greater dosing flexibility in a patient who was hypoglycemic on first POC check. PLAN FOR INPATIENT GLYCEMIC CONTROL: * Lantus 20 units SQ BID * Correction factor 15 mg/dl/unit * Carb ratio 1 unit per 7 grams CHO consumed * Goal range Low 120 mg/dL - High 160 mg/dL * Will add a BSG check overnight to screen for hyper- and hypo- glycemia * Please note that the plan above was derived based on current level of insulin resistance and hospital stress. These recommendations are appropriate for inpatient admission only. Plan of care upon discharge will need to be reassessed to avoid potential outpatient hypo/hyperglycemia. Thank you.
[2016-10-23] MEDS: HEPARIN SOD 5000 UNIT/0.5 ML CARP SQ SCH ×2 (16:00→20:49)
[2016-10-23] MEDS ORDERED: LORAZEPAM 0.5 MG TAB PO STA (16:17)
[2016-10-23] MEDS: INSULIN ASPART 100 UNITS/ML 3 ML PEN SC SCH ×2 (16:30→20:47)
[2016-10-23] MEDS ORDERED: LORAZEPAM 0.5 MG TAB PO PRN (16:30)
--- NOTE | 2016-10-23 16:43 | History and Physical ---
History & Physical Date & Time of Service: Oct 23, 2016 at 16:18 Chief Complaint: Altered Mental Status Primary Care Physician: Levy Stout M.D. History of Present Illness Source: patient, family, clinic records, hospital records This is a 76 year old male with a PMH of COPD, intermittent O2 use, CAD s/p CABG x3, insulin dependent DM2 - presents to the ER due to confusion and shortness of breath. He was discharged from [facility] on 10/22 after being here for COPD exacerbation. He states that he noted that when he was receiving solu- medrol in the hospital, he felt off. When he got home the night of 10/22, he felt to be in a dream-like state and his vision was also changing. He noted that his blood sugar was elevated and he took some insulin, then he noted that his blood sugars were too low and tried to bring it up with orange juice and glucose tablets, which did not help. He states he's still having difficulty finding words and remembering details. He states he does not like prednisone or solu- medrol and refused prednisone on discharge. Upon presentation, he was noted to have BSGs in the 50s. Head CT was negative currently, talking to me without issues, does not seem confused right now, but seems anxious about his symptoms at home. Past Medical/Surgical History Medical Problems: (1) CKD (chronic kidney disease), stage III Status: Chronic (2) Coronary artery disease Status: Chronic (3) History of Mesenteric Atherosclerosis Status: Chronic (4) HLD (hyperlipidemia) Status: Chronic (5) SNOW (iron deficiency anemia) Status: Chronic (6) IDDM (insulin dependent diabetes mellitus) Status: Chronic (7) Prostate cancer Status: Resolved (8) Psoriatic arthritis Status: Chronic (9) Sleep apnea Status: Chronic Surgical Problems: (1) H/O colonoscopy Status: Chronic (2) History of esophagogastroduodenoscopy (EGD) Status: Chronic (3) Hx of CABG Status: Resolved Family History Bleeding disorder FH: CAD (coronary artery disease) FH: cancer Social History Smoking Status: Former Smoker Immunizations History of Influenza Vaccine: Yes History of Tetanus Vaccine?: No History of Pneumococcal: Yes History of Hepatitis B Vaccine: No Multi-Drug Resistant Organisms History of MDRO: No Allergies Coded Allergies: Prednisone (Unverified Adverse Reaction, Unknown, INCREASE BLOOD SUGAR, 10/23/16) Home Medications Scheduled Aspirin (Aspirin Ec), 81 MG PO QAM Atorvastatin (Lipitor), 80 MG PO DAILY Cholecalciferol (Vitamin D), 4,000 INTER.UNIT PO QAM Doxycycline Hyclate (Doxycycline Hyclate), 100 MG PO BID Fenofibrate (Fenofibrate Micronized), 200 MG PO DAILY Fluticasone Propionate (Fluticasone Propionate), 2 SPRAYS NA DAILY Folic Acid (Folic Acid), 1 MG PO DAILY Insulin Isophan/Regular (Novolin 70/30), 1 DOSE SC QPM Insulin Isophan/Regular (Novolin 70/30), 65-70 UNITS SC QAM Isosorbide Mononitrate Ext Rel (Imdur Ext Rel), 30 MG PO DAILY Loratadine & Pseudoephedrine (Claritin-D 24 Hour), 1 TAB PO QAM Losartan Potassium (Losartan Potassium), 25 MG PO DAILY Metformin Hcl (Glucophage), 1,000 MG PO BID Metoprolol Tartrate (Metoprolol Tartrate), 50 MG PO BID Multivitamins/Minerals (Mvi With Minerals), 1 TAB PO QAM Omeprazole (Prilosec), 20 MG PO QAM Torsemide (Torsemide), 10 MG PO DAILY Scheduled PRN Nitroglycerin (Nitrostat), 0.4 MG UT UD PRN for Chest Pain Review of Systems Constitutional: No fever, No chills, No weakness, No fatigue Respiratory: + cough, + sputum, + wheezing, + shortness of breath, + dyspnea on exertion, + dyspnea at rest, No hemoptysis Cardiovascular: No chest pain, No edema, No palpitations Abdomen: No pain, No nausea, No vomiting, No diarrhea Musculoskeletal: No joint pain, No muscle pain Neurologic: + memory loss, No paralysis, No weakness, No numbness/tingling, No vertigo, No balance problems Psychiatric: No depression symptoms Endocrine: No fatigue Hematologic / Lymphatic: No abnormal bleeding/bruising Integumentary: No rash Allergic / Immunologic: No environmental allergies, No seasonal allergies Physical Exam Vital Signs Date Time Temp Pulse Resp B/P (MAP) Pulse Ox O2 Delivery O2 Flow Rate FiO2 10/23/16 14:24 105 20 165/69 96 Room Air 10/23/16 14:01 105 10/23/16 12:34 84 20 144/89 97 Room Air 10/23/16 12:32 36.6 81 26 144/89 95 Room Air 10/23/16 11:20 84 18 178/80 96 Room Air 10/23/16 11:16 84 10/23/16 11:01 36.5 82 18 170/82 94 Room Air General Appearance: + mild distress, + obese Head: normocephalic, atraumatic Eyes: normal inspection ENT: hearing grossly normal Respiratory/Chest: + respiratory distress, + decreased breath sounds, + wheezing Cardiovascular: regular rate, rhythm, no edema, no murmur Abdomen/GI: normal bowel sounds, non tender, soft Back: + pertinent finding (+psoriatic changes noted on lower back) Extremities/Musculoskelatal: normal capillary refill, no pedal edema 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, no motor/sensory deficits, alert, normal mood/affect, normal reflexes, oriented x 3 Skin: normal color Lymphatic: no adenopathy Diagnostics Laboratory Results Results Past 24 Hours Test 10/23/16 12:00 10/23/16 12:20 Range/Units Bedside Glucose 53 70-99 mg/dl White Blood Count 7.92 4.8-10.8 K/uL Red Blood Count 4.31 4.7-6.1 M/uL Hemoglobin 13.0 14.0-18.0 g/dL Hematocrit 39.1 42-52 % Mean Corpuscular Volume 90.7 80-100 fL Mean Corpuscular Hemoglobin 30.2 25-34 pg Mean Corpuscular Hemoglobin Concent 33.2 32-36 g/dl Platelet Count 239 130-400 K/uL Mean Platelet Volume 9.4 7.4-10.4 fL Neutrophils (%) (Auto) 74.9 % Lymphocytes (%) (Auto) 18.7 % Monocytes (%) (Auto) 5.3 % Eosinophils (%) (Auto) 0.4 % Basophils (%) (Auto) 0.1 % Neutrophils # (Auto) 5.93 1.4-6.5 K/uL Lymphocytes # (Auto) 1.48 1.2-3.4 K/uL Monocytes # (Auto) 0.42 0.11-0.59 K/uL Eosinophils # (Auto) 0.03 0-0.5 K/uL Basophils # (Auto) 0.01 0-0.2 K/uL RDW Standard Deviation 43.8 36.4-46.3 fL RDW Coefficient of Variation 13.3 11.5-14.5 % Immature Granulocyte % (Auto) 0.6 % Immature Granulocyte # (Auto) 0.05 0.00-0.02 K/uL Sodium Level 137 136-145 mmol/L Potassium Level 3.1 3.5-5.1 mmol/L Chloride Level 101 98-107 mmol/L Carbon Dioxide Level 30 21-32 mmol/L Anion Gap 6.0 3-11 mmol/L Blood Urea Nitrogen 34 7-18 mg/dl Creatinine 1.90 0.60-1.40 mg/dl Est Creatinine Clear Calc Drug Dose 41.3 ml/min Estimated GFR () 39.4 Estimated GFR (Non- 34.0 BUN/Creatinine Ratio 17.8 10-20 Random Glucose 50 70-99 mg/dl Calcium Level 8.9 8.5-10.1 mg/dl Magnesium Level 1.3 1.8-2.4 mg/dl Total Bilirubin 0.4 0.2-1 mg/dl Direct Bilirubin 0.1 0-0.2 mg/dl Aspartate Amino Transf (AST/SGOT) 43 15-37 U/L Alanine Aminotransferase (ALT/SGPT) 40 12-78 U/L Alkaline Phosphatase 56 45-117 U/L Total Protein 7.0 6.4-8.2 gm/dl Albumin 3.3 3.4-5.0 gm/dl Diagnostic Radiology HEAD WITHOUT CONTRAST (CT) CT DOSE: 773.57 mGy.cm HISTORY: Mental status change AMS, hallucinations TECHNIQUE: Multiaxial CT images of the head were performed without the use of intravenous contrast. A dose lowering technique was utilized adhering to the principles of ALARA. Comparison: 02/04/2016 Findings: The paranasal sinuses and mastoid air cells are clear. The calvarium and skull base are intact. The ventricles and sulci are within normal limits. There is no mass, hematoma, midline shift, or acute infarct. Moderate age-related chronic small vessel change are scattered areas of atrophy Impression: No acute intracranial abnormality. Chronic and age-related change. Impression Assessment and Plan This is a 76 year old male with a PMH of COPD, intermittent O2 use, CAD s/p CABG x3, insulin dependent DM2 presents with altered mental status Altered Mental State possible Steroid Induced Delirium vs. Hypoglycemic event Head CT is negative He is sound more clearer and not forgetful now Plan is to hold his 70/30 insulin; start Lantus and sliding scale if confusion persists, may need MRI replace electrolytes monitor in tele Insulin Dependent DM2 patient uses 70/30 insulin at home he seems to not have a schedule at home, which we will need to address while he is here BSGs on admission was low ~ 50 glycemic pharmacy consult placed COPD patient refusing steroids at this time he is wheezing, with productive cough will continue doxycycline for another 2 days nebulizer treatments may need nebulizer machine and Xopenex on discharge CAD s/p CABGx3 no acute issues to note at this time continue current cardiac medications CKD stage 3 creatinine at baseline continue Torsemide monitor creat monitor for urine output DVT ppx subq heparin FULL CODE VTE Prophylaxis VTE Risk Assessment Done? Y/N: Yes Risk Level: Moderate
[2016-10-23] MEDS ORDERED: ACETAMINOPHEN 325 MG TAB ONE (17:12)
[2016-10-23] MEDS ORDERED: NURSING VERBAL MED ORDER ONE (17:15)
[2016-10-23 17:17] LABS: URINE APPEARANCE CLEAR (CLEAR); URINE BILIRUBIN NEG (NEG); URINE COLOR YELLOW; URINE NITRITE NEG (NEG); URINE SPECIFIC GRAVITY 1.019 (1.000-1.030); UROBILINOGEN NEG (NEG); ZZUR CULT IF INDIC CLEAN CATCH NO
[2016-10-23 17:19] LABS: MANUAL MICROSCOPIC REQUIRED? NO; REVIEW REQ? NO
[2016-10-23 18:28] VITALS: BP 165/69; TEMP 36.6; O2SAT 96; Ht 167.6 cm; Wt 118.4 kg
[2016-10-23] MEDS ORDERED: LORAZEPAM INJ 0.5 MG in SYRINGE 0.25 ML IV ONE (20:30)
[2016-10-23] MEDS: DOXYCYCLINE HYCLATE 100 MG CAP PO SCH (20:44)
[2016-10-23] MEDS: METOPROLOL TARTRATE 50 MG TAB PO SCH (20:44)
[2016-10-23] MEDS: INSULIN GLARGINE SOLOSTAR 100 UNITS/ML 3 ML PEN SC SCH (20:46)
[2016-10-23] MEDS: IPRATROPIUM BROMIDE NEB SOLN 0.02% 2.5 ML VIAL INH SCH (21:00)
[2016-10-23] MEDS ORDERED: INSULIN GLARGINE SOLOSTAR 100 UNITS/ML 3 ML PEN SC SCH (21:00)
[2016-10-23] MEDS: LEVALBUTEROL 1.25MG/0.5ML NEB INH SCH (21:00)
[2016-10-23 23:07] VITALS: BP 157/92; PULSE 77; TEMP 36.8; O2SAT 97
[2016-10-24] VITALS (9 sets, daily range): BP systolic 95–152; BP diastolic 55–85; PULSE 82–110; TEMP 36.4–36.8; O2SAT 91–97
[2016-10-24] MEDS: ACETAMINOPHEN 325 MG TAB PO PRN ×2 (00:02→19:57)
[2016-10-24] MEDS ORDERED: INSULIN ASPART 100 UNITS/ML 3 ML PEN SC ONE (02:00)
[2016-10-24] MEDS: LEVALBUTEROL 1.25MG/0.5ML NEB INH SCH ×4 (02:18→20:04)
[2016-10-24] MEDS: IPRATROPIUM BROMIDE NEB SOLN 0.02% 2.5 ML VIAL INH SCH ×4 (02:18→20:04)
[2016-10-24] MEDS: HEPARIN SOD 5000 UNIT/0.5 ML CARP SQ SCH ×3 (05:28→21:35)
[2016-10-24 05:59] LABS: HEMATOCRIT 39.1 % (42-52); MEAN CELL VOLUME 90.1 fL (80-100); MEAN CORPUSCULAR HEMOGLOBIN 31.1 pg (25-34); MEAN CORPUSCULAR HGB CONC 34.5 g/dl (32-36); MEAN PLATELET VOLUME 9.1 fL (7.4-10.4); PLATELET COUNT 199 K/uL (130-400); RED BLOOD COUNT 4.34 M/uL (4.7-6.1); WHITE BLOOD COUNT 6.87 K/uL (4.8-10.8)
[2016-10-24 06:40] LABS: BUN/CREATININE RATIO 13.8 (10-20); CALCIUM 8.7 mg/dl (8.5-10.1); MAGNESIUM 1.9 mg/dl (1.8-2.4)
[2016-10-24] MEDS ORDERED: NURSING VERBAL MED ORDER ONE (08:00)
[2016-10-24] MEDS ORDERED: LORAZEPAM 1 MG TAB PO PRN (08:15)
[2016-10-24] MEDS: LOSARTAN POTASSIUM 25 MG TAB PO SCH (08:45)
[2016-10-24] MEDS: ASPIRIN 81 MG ECTAB PO SCH (08:45)
[2016-10-24] MEDS: ATORVASTATIN 40 MG TAB PO SCH (08:45)
[2016-10-24] MEDS: TORSEMIDE 20 MG TAB PO SCH (08:45)
[2016-10-24] MEDS: ISOSORBIDE MONONITRATE 30 MG TABCR PO SCH (08:45)
[2016-10-24] MEDS: METOPROLOL TARTRATE 50 MG TAB PO SCH ×2 (08:46→21:29)
[2016-10-24] MEDS: CEROVITE ADV FORMULA TAB PO SCH (08:46)
[2016-10-24] MEDS: PANTOprazole SOD 40 MG TAB PO SCH (08:46)
[2016-10-24] MEDS: DOXYCYCLINE HYCLATE 100 MG CAP PO SCH ×2 (08:46→21:29)
[2016-10-24] MEDS: QUETIAPINE FUMARATE 25 MG TAB PO PRN (08:46)
[2016-10-24] MEDS: INSULIN ASPART 100 UNITS/ML 3 ML PEN SC SCH ×4 (08:49→21:36)
[2016-10-24] MEDS: INSULIN GLARGINE SOLOSTAR 100 UNITS/ML 3 ML PEN SC SCH ×2 (08:49→21:36)
--- NOTE | 2016-10-24 09:51 | Pharmacy Progress Note ---
Glycemic Control Progress Note Date of Service Oct 24, 2016. Scope Glycemic Pharmacist consulted for glycemic control to write orders per [facility] inpatient glycemic control protocol. Objective Accuchecks BSG (last 24hrs): Test 10/23/16 12:00 10/23/16 12:20 10/23/16 16:46 10/23/16 20:12 Bedside Glucose 53 mg/dl (70-99) 215 mg/dl (70-99) 165 mg/dl (70-99) Random Glucose 50 mg/dl (70-99) Test 10/24/16 02:04 10/24/16 05:45 10/24/16 07:19 Bedside Glucose 131 mg/dl (70-99) 153 mg/dl (70-99) Random Glucose 153 mg/dl (70-99) Recent Pertinent Medications The patient is currently receiving: * Basal insulin: Lantus 20 units every 12 hours * Correctional Insulin: Novolog Correction per scale ACHS Goal Range: Low 120 mg/dL - High 160 mg/dL Correction Factor: 15 mg/dL/unit * Prandial insulin: Per carb ratio of 1 unit per 7 grams CHO consumed * Oral Agents: None at this time Outpatient Anti-Diabetic Meds Metformin 1 gm BID Novolin 70/30 65-70 units w/ breakfast, 10-65 units w/ dinner as per sliding scale Assessment & Plan ASSESSMENT: * See progress note from 10/23 for more background info, in short: * Pt receiving SQ basal bolus insulin regimen for hyperglycemia secondary to baseline DM (outpatient regimen on hold),stress/infection * BSGs have ranged from 53-215 mg/dL since admitted; however, they have improved as of last night and this AM * Changes needed to insulin regimen: * AM Fasting BSG = 153 mg/dl. This is in goal range for patient based on inpatient targets and co-morbidities. No change to basal dose. * Post-prandial BSGs are in range, so far, therefore no changes needed to CF/CR PLAN FOR INPATIENT GLYCEMIC CONTROL: * Continue insulin regimen as ordered, no changes RECOMMENDATIONS FOR DISCHARGE: * Patient was admitted w/ confusion,hypoglycemia which may have been related to receiving a larger dose of 70/30 on 9/8 PM. This regimen most likely works for him but with once daily AM prednisone, that wears off overnight, a sliding scale PM dose of premixed insulin is probably not the best. His BSGs were reasonable prior to being discharged on 10/22 so I'm not sure if he was maybe confused from the prednisone and just took an incorrect dose of the 70/30 that night?? * My recommendations would be to continue his outpatient regimen but have close f/u with his outpatient diabetes provider. From previous admission when CDE saw patient, he did not report lows at home. A1c also reasonable. Thank you.
--- NOTE | 2016-10-24 17:53 | Progress Note ---
Internal Med Progress Note Date of Service: Oct 24, 2016. Provider Documentation: SUBJECTIVE: did not had sleep last night this morning -he was anxious /having racing thoughts, throbbing headache , was crying / sobbing -as he never felt like this in his life given Ativan last night with no effect ordered for Seroquel 25 mg , pt slept form 9: 30 am to 1 pm after waking up -pt was surprised to find himself in hospital and today is Tuesday does not have any recollection of yesterday vaguely remembers getting discharged from hospital on Tuesday afternoon does not have any headache , no discomfort , feels absolutely fine wondering what he is doing in hospital speech is clear able to tell me his name , date of , address having difficulty in recollection of memory in past 48 hrs OBJECTIVE: Vital Signs-as noted below Exam: General-no sign of distress Eyes-sclera non icteric ENT-NAd Neck-no JVD Lungs-no rales or wheeze Heart-regular Abdomen-soft, non tender Extremities-no lower ext edema Neuro-no focal deficit , AAO x3 Lab data as noted below. ASSESSMENT & PLAN: This is a 76 year old male with a PMH of COPD, intermittent O2 use, CAD s/p CABG x3, insulin dependent DM2 presents with altered mental status Altered Mental State/METABOLIC ENCEPHALOPATHY -due to possible steroid /hypoglycemia-BSG on presentation 54 ( pt took extra dose of insulin at home while in confusion state thinking his blood sugar was elevated ) -was discharged after recovering form COPD exacerbation in Tuesday10/22/16 re admitted with in 24 hrs for confusion /hallucination /racing thoughts on 10/31 family mentions pt -can not tolerate Steroids/prednisone , had similar agitation /confusion years back pt was initially treated with IV Solu Medrol for COPD exacerbation started on rapid taper , no prednisone was prescribed on discharge during his hospital -pt did not show any signs of agitation /confusion after discharged form hospital Last Tuesday10/22/16 -on arrival to home -pt started to have hallucination -seeing plants dancing , moving with blowing wind talking fast , changing subjects in mid sentences family brought him to hospital for concern no evidence of CVA no focal deficit noted CT head -shows no acute change pt has not been sleeping for past few days -due to SOB while in hospital , at home did not sleep due to agitation possible Steroid Induced Delirium r/o infection /sleep deprivation no major electrolyte imbalance noted UA negative given Seroquel for on going agitation managed to sleep for 4 hrs waking up -feels much better than before , thought more co ordinate does not recall recent events intact senior care memory cont to observe in hospital Neurology eval requested for further assessment Family Arnold Barragan ( # [phone] ) updated over phone Insulin Dependent DM2 patient uses 70/30 insulin at home was taking more insulin at home while being confused BSGs on admission was low ~ 50 insulin 70/30 kept on hold ordered for sliding scale glycemic pharmacy consult placed COPD respiratory status appears to be stable no audible wheeze noted avoid Steroids /Prednisone as pt appears to have adverse reaction from it continue doxycycline for another 2 days nebulizer treatments may need nebulizer machine and Xopenex on discharge CAD s/p CABGx3 no acute issues to note at this time continue current cardiac medications CKD stage 3 creatinine at baseline continue Torsemide DVT ppx subq heparin FULL CODE DISPOSITION expected to be discharged home if remains medically stable /no confusion will benefit form home health visiting nurse Social service consulted for discharge planning Arnold Beltran phone # [phone] asked to be given update with change of pt's condition Vital Signs: Date Time Temp Pulse Resp B/P (MAP) Pulse Ox O2 Delivery O2 Flow Rate FiO2 10/25/16 08:00 Room Air 10/25/16 07:24 36.7 64 16 120/71 (87) 93 Room Air 10/25/16 00:00 Room Air CPAP 10/24/16 22:45 36.6 87 18 121/68 (85) 94 Room Air 10/24/16 21:26 110 18 105/55 (72) 94 Room Air 10/24/16 20:04 88 16 96 Room Air 10/24/16 16:00 91 Room Air 10/24/16 15:15 36.8 86 18 95/59 (71) 91 Room Air 10/24/16 14:00 88 16 92 Room Air Lab Results: Results Past 24 Hours Test 10/24/16 16:33 10/24/16 20:40 10/25/16 07:03 10/25/16 11:12 Range/Units Bedside Glucose 323 182 158 196 70-99 mg/dl
[2016-10-24] MEDS: TRAZODONE HCL 50 MG TAB PO PRN (21:29)
[2016-10-24] MEDS ORDERED: TRAZODONE HCL 50 MG TAB PO SCH (22:00)
[2016-10-25] MEDS: LEVALBUTEROL 1.25MG/0.5ML NEB INH SCH ×4 (02:06→20:44)
[2016-10-25] MEDS: IPRATROPIUM BROMIDE NEB SOLN 0.02% 2.5 ML VIAL INH SCH ×4 (02:06→20:44)
[2016-10-25] MEDS: HEPARIN SOD 5000 UNIT/0.5 ML CARP SQ SCH ×3 (06:02→21:48)
[2016-10-25 07:24] VITALS: BP 120/71; PULSE 64; TEMP 36.7; O2SAT 93
[2016-10-25] MEDS: LOSARTAN POTASSIUM 25 MG TAB PO SCH (08:12)
[2016-10-25] MEDS: TORSEMIDE 20 MG TAB PO SCH (08:12)
[2016-10-25] MEDS: ISOSORBIDE MONONITRATE 30 MG TABCR PO SCH (08:13)
[2016-10-25] MEDS: CEROVITE ADV FORMULA TAB PO SCH (08:13)
[2016-10-25] MEDS: PANTOprazole SOD 40 MG TAB PO SCH (08:13)
[2016-10-25] MEDS: METOPROLOL TARTRATE 50 MG TAB PO SCH ×2 (08:13→21:45)
[2016-10-25] MEDS: DOXYCYCLINE HYCLATE 100 MG CAP PO SCH (08:13)
[2016-10-25] MEDS: ATORVASTATIN 40 MG TAB PO SCH (08:13)
[2016-10-25] MEDS: ASPIRIN 81 MG ECTAB PO SCH (08:13)
[2016-10-25] MEDS: INSULIN ASPART 100 UNITS/ML 3 ML PEN SC SCH ×4 (08:19→21:49)
[2016-10-25] MEDS: INSULIN GLARGINE SOLOSTAR 100 UNITS/ML 3 ML PEN SC SCH ×2 (08:19→21:48)
[2016-10-25] MEDS: ACETAMINOPHEN 325 MG TAB PO PRN ×3 (10:15→21:45)
--- NOTE | 2016-10-25 11:28 | Pharmacy Progress Note ---
Glycemic Control Progress Note Date of Service Oct 25, 2016. Scope Glycemic Pharmacist consulted for glycemic control to write orders per [facility] inpatient glycemic control protocol. Objective Accuchecks BSG (last 24hrs): Test 10/24/16 12:44 10/24/16 16:33 10/24/16 20:40 10/25/16 07:03 Bedside Glucose 219 mg/dl (70-99) 323 mg/dl (70-99) 182 mg/dl (70-99) 158 mg/dl (70-99) Recent Pertinent Medications The patient is currently receiving: * Basal insulin: Lantus 20 units every 12 hours * Correctional Insulin: Novolog Correction per scale ACHS Goal Range: Low 110 mg/dL - High 140 mg/dL Correction Factor: 15 mg/dL/unit * Prandial insulin: Per carb ratio of 1 unit per 7 grams CHO consumed Outpatient Anti-Diabetic Meds Novolin 70/30 65-70 units with breakfast and sliding scale for dinner ( typically ranges from 10-65 units) Assessment & Plan ASSESSMENT: * See progress note from 10/23/16 for more background info, in short: * Pt receiving SQ basal bolus insulin regimen for hyperglycemia secondary to baseline DM (outpatient regimen on hold) and infection (on doxycycline for COPD exacerbation) * Patient is currently receiving an average of 80 units of insulin per day * 40 units of basal insulin * 39 units of prandial/correctional insulin * BSGs ranging 131 - 323 mg/dl over the past 24hrs * Changes needed to insulin regimen: * AM Fasting BSG = 158 mg/dl. This is in slightly above goal range for patient based on inpatient targets and co-morbidities. The patient received Lantus based upon a scale yesterday evening. Evening blood sugar was 182 mg/dL and this morning was just slightly less. This indicates that current basal may be slightly too low. Altered scale slightly to provide higher doses of insulin. * Post-prandial BSGs tend to increase throughout the day until patient receives a large dose causing blood sugar to plummet. Increased carbohydrate ratio to weight based stress of 3. * Total daily dose = 80 units. Increase in daily dose may be necessary; altered insulin appropriately. PLAN FOR INPATIENT GLYCEMIC CONTROL: * START Lantus 15-25 units SQ BID (Lantus 15 units if blood sugar less than 120 mg/dL; Lantus 20 units if blood sugar 120-180 mg/dL; Lantus 25 units if blood sugar over 180 mg/dL) * Continuing correction factor of 15 mg/dl/unit * TIGHTENING carb ratio to 1 unit per 5 grams CHO consumed * Continuing goal range to Low 110 mg/dL - High 140 mg/dL RECOMMENDATIONS FOR DISCHARGE: * patient's HbA1C appears to be reasonably controlled, may continue home regimen Thank you.
--- NOTE | 2016-10-25 12:30 | Clinical Documentation Query ---
CLINICAL DOCUMENTATION QUERY Dr. CULP, In your clinical opinion is this patient being managed for: ( x ) possible Metabolic encephalopathy due to hypoglycemia vs possible steroid induced encephalopathy causing altered mental status ( ) Not Agree ( ) Other explanation of clinical findings (Please Explain) ( ) Unable to determine (Please Define) ( ) Need to Discuss The medical record reflects the following clinical findings, treatment, and risk factors. Clinical Indicators:76 yo male presenting with confusion and hallucinations following recent hospital discharge. Family has reported that pt has had mental status changes in the past with steroid use. However, Blood glucose level was 50 upon ER arrival. Treatment: CT head, neurology consult, hold 70/30 insulin, use sliding scale insulin, pharmacy consult for glycemic control, Risk Factors: hypoglycemia, recent steroid treatment for COPD exacerbation The hallmark symptom of encephalopathy is altered mental status. Please clarify and document your clinical opinion in the progress notes and discharge summary. Terms such as "probable", "suspected", "likely", "questionable", "possible", or "still to be ruled out" are acceptable. IF IN AGREEMENT, YOU MUST DOCUMENT ABOVE DIAGNOSTIC STATEMENT IN DAILY PROGRESS NOTES AND DISCHARGE SUMMARY. This document is not part of the patient's record. Thank You, Farzana Avelar RN [phone]
--- NOTE | 2016-10-25 13:49 | Discharge Instructions ---
Discharge Instructions Date of Service Oct 25, 2016. Admission Reason for Admission: Altered Mental Status Discharge Discharge Diagnosis / Problem: CONFUSION /METABOLIC ENCEPHALOPAHTY -RESOLVED Discharge Goals Goal(s): Decrease discomfort, Therapeutic intervention Activity Recommendations Activity Limitations: resume your previous activity . Instructions / Follow-Up Instructions / Follow-Up HOSPITAL FOLLOW UP : 10/26/2016 11:20 AM Levy Stout MD Internal Medicine [facility] Current Hospital Diet Patient's current hospital diet: Diabetes Type 2 Diet Discharge Diet Recommended Diet: Diabetes Type 2 Diet Pending Studies Studies pending at discharge: no Laboratory Results Hemoglobin A1c Test 10/20/16 05:33 Range/Units Estimated Average Glucose 157 mg/dl Hemoglobin A1c 7.1 H 4.5-5.6 % Medical Emergencies . Who to Call and When: Medical Emergencies: If at any time you feel your situation is an emergency, please call 911 immediately. . Non-Emergent Contact Non-Emergency issues call your: Primary Care Provider . . "Provider Documentation" section prepared by Sabina Amanda. . VTE Core Measure Inpt VTE Proph given/why not?: Unfractionated heparin SQ
[2016-10-25 13:54] VITALS: PULSE 77; O2SAT 94
[2016-10-25 14:31] VITALS: BP 130/66; PULSE 73; TEMP 36.6; O2SAT 92
--- NOTE | 2016-10-25 15:24 | Neurology Consultation ---
Neurology Consultation Date of Consultation: Oct 25, 2016. Attending Physician: Sabina Amanda M.D. Primary Care Physician: Levy Stout M.D. Reason for Consultation: confusion memory loss, COPD exacerbation History of Present Illness Source: patient Maurisio is a 76 year old male with a PMH of COPD, intermittent O2 use, CAD s/p CABG x3, insulin dependent DM2, chronic IV iron, ?? blood loss. He was discharged from [facility] on 10/22 after being here for COPD exacerbation. He states that he noted that when he was receiving solu-medrol in the hospital. When he got home he started having some memory issues and noted his blood sugar was off and took some extra insulin which dropped his blood sugar to the 50s. He was having difficulty explaining things and normally he has not trouble with memory issues. He thinks he was better last night but then today he is having memory issues again. When he was in the hospital 10/22 they were treating him for COPD and gave him steroids. He wears bipap at night but does not have home O2. He smoked for years off and on and has ongoing issues of walking with SOB. denies CP, N, V, abdominal pain, weakness, numbness tingling, dizzy spells, falls. Past Medical/Surgical History Medical Problems: (1) Altered mental status Status: Acute (2) Chest pain Status: Acute (3) COPD exacerbation Status: Acute (4) Dependence on supplemental oxygen Status: Acute (5) Hypoglycemia Status: Acute (6) Hypokalemia Status: Acute (7) Hypomagnesemia Status: Acute (8) Left-sided headache Status: Acute (9) Stroke-like symptoms Status: Acute Social History Smoking Status: Former smoker Housing Status: lives with family Allergies Coded Allergies: Prednisone (Unverified Adverse Reaction, Unknown, INCREASE BLOOD SUGAR, 10/23/16) Current Inpatient Medications Current Inpatient Medications Medications (Trade) Dose Ordered Sig/Camelia Route Start Time Stop Time Status Last Admin Dose Admin Heparin Sodium (Porcine) (Heparin Sq 5000 Unit/0.5ml) 5,000 unit Q8@0600,1400,2200 SQ 10/23/16 16:00 11/22/16 15:59 10/25/16 13:30 5,000 UNIT Magnesium Hydroxide (Milk Of Magnesia Susp) 30 ml Q6H PRN PO 10/23/16 14:45 11/22/16 14:44 Ondansetron HCl (Zofran Inj) 4 mg Q6H PRN IV 10/23/16 14:45 11/22/16 14:44 Insulin Aspart (novoLOG ASPART) SLIDING SCALE If C... ACHS SC 10/23/16 16:00 11/22/16 15:59 10/25/16 11:59 10 UNITS Glucose (Glucose 40% Gel) 15-30 GRAMS 15 GRAMS... UD PRN PO 10/23/16 14:45 11/22/16 14:44 Glucose (Glucose Chew Tab) 4-8 Tablets 4 Tabl... UD PRN PO 10/23/16 14:45 11/22/16 14:44 Dextrose (Dextrose 50% 50ML Syringe) 25-50ML OF 50% DW IV FOR... UD PRN IV 10/23/16 14:45 11/22/16 14:44 Glucagon (Glucagon Inj) 1 mg UD PRN SQ 10/23/16 14:45 11/22/16 14:44 Miscellaneous Information (Consult Glycemic Management Pharmacy) 1 ea UD N/A 10/23/16 14:58 11/22/16 14:57 Aspirin (Ecotrin Tab) 81 mg QAM PO 10/24/16 09:00 11/23/16 08:59 10/25/16 08:13 81 MG Atorvastatin Calcium (Lipitor Tab) 80 mg DAILY PO 10/24/16 09:00 11/23/16 08:59 10/25/16 08:13 80 MG Folic Acid (Folvite Tab) 1 mg DAILY PO 10/24/16 09:00 11/23/16 08:59 10/25/16 08:13 1 MG Isosorbide Mononitrate (Imdur Ext Rel Tab) 30 mg DAILY PO 10/24/16 09:00 11/23/16 08:59 10/25/16 08:13 30 MG Losartan Potassium (coZAAR TAB) 25 mg DAILY PO 10/24/16 09:00 11/23/16 08:59 10/25/16 08:12 25 MG Metoprolol Tartrate (Lopressor Tab) 50 mg BID PO 10/23/16 21:00 11/22/16 20:59 10/25/16 08:13 50 MG Multivitamins/ Minerals (Multivitamin W/ Minerals Tab) 1 tab QAM PO 10/24/16 09:00 11/23/16 08:59 10/25/16 08:13 1 TAB Torsemide (Demadex Tab) 10 mg DAILY PO 10/24/16 09:00 11/23/16 08:59 10/25/16 08:12 10 MG Pantoprazole Sodium (Protonix Tab) 40 mg QAM PO 10/24/16 09:00 11/23/16 08:59 10/25/16 08:13 40 MG Insulin Glargine (Lantus Solostar Pen) SEE PROTOCOL TEXT BID SC 10/23/16 21:00 11/22/16 20:59 10/25/16 08:19 20 UNITS Ipratropium [place] (Atrovent 0.02% 0.5MG/2.5ML Neb) 0.5 mg Q6R INH 10/23/16 21:00 11/22/16 20:59 10/25/16 13:54 0.5 MG Levalbuterol (Xopenex 1.25MG/ 0.5ML Neb) 1.25 mg Q6R INH 10/23/16 21:00 11/22/16 20:59 10/25/16 13:54 1.25 MG Acetaminophen (Tylenol Tab) 650 mg Q4H PRN PO 10/23/16 17:45 11/22/16 17:44 10/25/16 13:54 650 MG Heparin Sodium (Porcine) (Heparin 100 Unit/ml 5ml Flush) 5 ml PRN PRN IV 10/24/16 00:45 11/23/16 00:44 10/24/16 05:42 5 ML Quetiapine Fumarate (seroQUEL TAB) 25 mg Q12 PRN PO 10/24/16 08:15 11/23/16 08:14 10/24/16 08:46 25 MG Trazodone HCl (Desyrel Tab) 50 mg HSZ PRN PO 10/24/16 21:00 11/23/16 21:59 10/24/16 21:29 50 MG Physical Exam Vital Signs (Past 24 Hrs): Date Time Temp Pulse Resp B/P (MAP) Pulse Ox O2 Delivery O2 Flow Rate FiO2 10/25/16 14:31 36.6 73 16 130/66 (87) 92 Room Air 10/25/16 13:54 77 16 94 Room Air 10/25/16 08:00 Room Air 10/25/16 07:24 36.7 64 16 120/71 (87) 93 Room Air 10/25/16 00:00 Room Air CPAP 10/24/16 22:45 36.6 87 18 121/68 (85) 94 Room Air 10/24/16 21:26 110 18 105/55 (72) 94 Room Air 10/24/16 20:04 88 16 96 Room Air 10/24/16 16:00 91 Room Air 10/24/16 15:15 36.8 86 18 95/59 (71) 91 Room Air Physical Exam: Constitutional: appearance nourished, obese Ears, Nose, Mouth and Throat: mucous membranes moist, no injection and skin normal, eyes normal Cardiovascular: normal S-1 and S-2 and regular rate and rhythm Respiratory: bilateral wheezing and rales Musculoskeletal: no peripheral edema and good distal pulses Skin: no stigmata of neurocutaneous disease noted and normal and intact, severe pitting or nails bilaterally Eyes: extraocular muscles intact (EOMI) and pupils equal, round and reactive to light (PERRL), gross peripheral vision intact NEUROLOGIC EXAMINATION: Mental status: Alert and interactive Oriented to full date and location, president, October, Oriented to person Speech fluent with no evidence of aphasia, able to repeat no ifs ands or buts, able to stick out tongue, close eyes point to ceiling with right hand, Cranial Nerves smile eye brow raise symmetric Reflexes: Deep tendon reflexes were symmetrical and graded 2/5. Plantar responses were flexor. Sensory: no sensory deficits with vibration Coordination: finger to nose without bipass Gait/Stance: Posture normal. Gait normal: with steady with steps, base, turning, heel and toe walking and tandem gait. Motor: Negative for pronator drift of out stretched arms with eyes closed. 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 RPR, b12, folate, lyme titer, TSH, ammonia level 2. MRI brain with and without contrast would be more sensitive for any occupying lesions- ordered 3. O2 - states gets SOB with ambulation may need PT to evaluate for need of home oxygen 4. continue home bi pap for O2 issues may need re evaluated 5. patient wants to go home but wants also to know why he is having memory issues 6. EEG due to loss of time 7. carotid doppler- for any vascular issues 8. further recommendations to follow I have seen and discussed above patient with Dr Ariella Connolly, neurology Pt seen and examined. Was hospitalized for COPD, received few doses of Prednisone. Had not slept for "6" days. Pt glucose was 189 during the confusion and some confusion preceded by hours the blood sugar of 53. On exam, mildly distractible, no aphasia, memory 0/3 in three minute, no dystaxia, gait unremarkable, and is otherwise nonfocal. Imp possible delirium related to steroids, sleep deprivations. Rec MRI brain EEG, ammonia to r/o possible nonmetabolic etiologies. Will follow with you, INDIRA Connolly MD
[2016-10-25 16:00] VITALS: O2SAT 92
[2016-10-25] MEDS: QUETIAPINE FUMARATE 25 MG TAB PO PRN (17:30)
[2016-10-25 17:41] LABS: LYME DISEASE AB IGM NEG (NEG)
--- NOTE | 2016-10-25 18:16 | Progress Note ---
Internal Med Progress Note Date of Service: Oct 25, 2016. Provider Documentation: SUBJECTIVE: slept well last night this morning feels fine , wanted to be discharged home later developed confusion again , having word finding difficulty memory issues neurology eval appreciated possible steroid induced psychosis ? CT head was negative for CVA pt does not have any focal neurological deficit ordered for MRI of brain /EEG OBJECTIVE: Vital Signs-as noted below Exam: General-no sign of distress , remains confused with difficulty to remember events Eyes-sclera non icteric ENT-NAd Neck-no JVD Lungs-no rales or wheeze Heart-regular Abdomen-soft, non tender Extremities-no lower ext edema Neuro-no focal deficit ,episodes of confusion Lab data as noted below. ASSESSMENT & PLAN: This is a 76 year old male with a PMH of COPD, intermittent O2 use, CAD s/p CABG x3, insulin dependent DM2 presents with altered mental status Altered Mental State/METABOLIC ENCEPHALOPATHY -due to possible steroid /hypoglycemia-BSG on presentation 54 ( pt took extra dose of insulin at home while in confusion state thinking his blood sugar was elevated ) -was discharged after recovering form COPD exacerbation in Tuesday10/22/16 re admitted with in 24 hrs for confusion /hallucination /racing thoughts on 10/31 family mentions pt -can not tolerate Steroids/prednisone , had similar agitation /confusion years back pt was initially treated with IV Solu Medrol for COPD exacerbation started on rapid taper , no prednisone was prescribed on discharge during his hospital -pt did not show any signs of agitation /confusion after discharged form hospital Last Tuesday10/22/16 -on arrival to home -pt started to have hallucination -seeing plants dancing , moving with blowing wind talking fast , changing subjects in mid sentences family brought him to hospital for concern no evidence of CVA no focal deficit noted CT head -shows no acute change pt has not been sleeping for past few days -due to SOB while in hospital , at home did not sleep due to agitation possible Steroid Induced Delirium r/o infection /sleep deprivation no major electrolyte imbalance noted UA negative given Seroquel for on going agitation Neurology eval requested for further assessment MRI of brain , EEG ordered continue to monitor till mental status improves Son Jossue Barragan ( # [phone] ) updated at bedside voiced concern that if pt is discharged early while still having confusion -he can take his truck and be on road while having hallucination and psychosis pt's has baseline dementia , elderly will not be able to take care of the pt with acute confusional state at home will continue to monitor Insulin Dependent DM2 patient uses 70/30 insulin at home was taking more insulin at home while being confused BSGs on admission was low ~ 50 insulin 70/30 kept on hold ordered for sliding scale glycemic pharmacy consult placed COPD respiratory status appears to be stable no audible wheeze noted avoid Steroids /Prednisone as pt appears to have adverse reaction from it continue doxycycline for one more day nebulizer treatments will need nebulizer machine and Xopenex neb solution on discharge CAD s/p CABGx3 no acute issues to note at this time continue current cardiac medications CKD stage 3 creatinine at baseline continue Torsemide DVT ppx subq heparin FULL CODE DISPOSITION continue to observe as pt is having waxing and waning status of confusion will benefit form home health visiting nurse Social service consulted for discharge planning Arnold Beltran phone # [phone] asked to be given update with change of pt's condition Vital Signs: Date Time Temp Pulse Resp B/P (MAP) Pulse Ox O2 Delivery O2 Flow Rate FiO2 10/25/16 16:00 92 Room Air 10/25/16 14:31 36.6 73 16 130/66 (87) 92 Room Air 10/25/16 13:54 77 16 94 Room Air 10/25/16 08:00 Room Air 10/25/16 07:24 36.7 64 16 120/71 (87) 93 Room Air 10/25/16 00:00 Room Air CPAP 10/24/16 22:45 36.6 87 18 121/68 (85) 94 Room Air 10/24/16 21:26 110 18 105/55 (72) 94 Room Air 10/24/16 20:04 88 16 96 Room Air Lab Results: Results Past 24 Hours Test 10/24/16 20:40 10/25/16 07:03 10/25/16 11:12 10/25/16 14:28 Range/Units Bedside Glucose 182 158 196 164 70-99 mg/dl Test 10/25/16 15:29 10/25/16 16:34 10/25/16 16:36 Range/Units Vitamin B12 Level 815 211-911 pg/mL Folate > 24.00 >5.38 ng/mL Thyroid Stimulating Hormone (TSH) 1.230 0.300-4.500 uIu/ml Lyme Disease IgM Antibody NEG NEG Bedside Glucose 251 70-99 mg/dl Ammonia 21.0 11-32 umol/L
--- NOTE | 2016-10-25 19:26 | DIAGNOSTIC IMAGING REPORT ---
BRAIN COMBO FOR SEIZURE CLINICAL HISTORY: confusion and memory issues mental status change COMPARISON STUDY: No previous studies for comparison. TECHNIQUE: Utilizing a 1.5 Alley magnet and dedicated coil, multiplanar, multiecho imaging of the brain was performed pre and postcontrast administration. IV administration of 11 mL of Gadavist contrast was uneventful. Thin cut coronal T2 imaging was performed according to seizure protocol. FINDINGS: Chronic small vessel change throughout both cerebral hemispheres. Mild cerebral atrophy. No evidence for an acute ischemic insult. Sella and parasellar regions are unremarkable. Internal artery canals are symmetric. No abnormal enhancement characteristics. IMPRESSION: 1. Considerable chronic small vessel change. 2. Age-related atrophy.. 3. Otherwise negative study. The above report was generated using voice recognition software. It may contain grammatical, syntax or spelling errors. Electronically signed by: Blair Lama M.D. 10/25/2016 7:25 PM Dictated Date/Time: 10/25/2016 7:21 PM
[2016-10-25] MEDS ORDERED: GADAVIST IV PRN (19:30)
--- NOTE | 2016-10-25 21:31 | DIAGNOSTIC IMAGING REPORT ---
BILATERAL CAROTID DOPPLER STUDY HISTORY: confusion and memory issue COMPARISON: Carotid Doppler 02/04/2016. TECHNIQUE: Real-time, grayscale, and color Doppler sonography of the carotid arteries was performed. Imaging reviewed in the transverse and longitudinal planes. All measurements were calculated based on NASCET criteria. FINDINGS: Antegrade flow is seen in the bilateral vertebral arteries. The brachial pressures were not performed.. Mild scattered calcified plaque within the bilateral carotid arteries. Elevated velocities within the bilateral external carotid arteries measuring 367 cm/s on the left and 167 cm/s on the right. The peak systolic velocity within the right ICA is 89 cm/s. The right systolic ratio is 1. The peak systolic velocity within the left ICA is 57 cm/s. The left systolic ratio is 1. IMPRESSION: No hemodynamically significant stenosis seen within the bilateral common or internal carotid arteries. Stenosis of the bilateral external carotid arteries, left greater than right. Electronically signed by: Josue Mahoney M.D. 10/25/2016 9:30 PM Dictated Date/Time: 10/25/2016 9:28 PM
[2016-10-25 21:41] VITALS: BP 132/90; PULSE 91
[2016-10-25] MEDS: TRAZODONE HCL 50 MG TAB PO PRN (21:44)
[2016-10-26] VITALS (9 sets, daily range): BP systolic 125–143; BP diastolic 56–84; PULSE 68–72; TEMP 36.3–36.6; O2SAT 93–97
[2016-10-26] MEDS: LEVALBUTEROL 1.25MG/0.5ML NEB INH SCH ×4 (02:14→17:51)
[2016-10-26] MEDS: IPRATROPIUM BROMIDE NEB SOLN 0.02% 2.5 ML VIAL INH SCH ×4 (02:14→17:51)
[2016-10-26 02:21] LABS: RAPID PLASMA REAGIN NONREACTIVE (NONREACT)
[2016-10-26] MEDS: HEPARIN SOD 5000 UNIT/0.5 ML CARP SQ SCH ×2 (06:00→14:00)
[2016-10-26] MEDS ORDERED: INSULIN GLARGINE SOLOSTAR 100 UNITS/ML 3 ML PEN SC SCH ×3 (09:00→21:00)
[2016-10-26] MEDS: INSULIN ASPART 100 UNITS/ML 3 ML PEN SC SCH ×4 (09:24→18:32)
[2016-10-26] MEDS: TORSEMIDE 20 MG TAB PO SCH (09:25)
[2016-10-26] MEDS: ATORVASTATIN 40 MG TAB PO SCH (09:25)
[2016-10-26] MEDS: ASPIRIN 81 MG ECTAB PO SCH (09:25)
[2016-10-26] MEDS: CEROVITE ADV FORMULA TAB PO SCH (09:25)
[2016-10-26] MEDS: METOPROLOL TARTRATE 50 MG TAB PO SCH (09:25)
[2016-10-26] MEDS: ISOSORBIDE MONONITRATE 30 MG TABCR PO SCH (09:25)
[2016-10-26] MEDS: PANTOprazole SOD 40 MG TAB PO SCH (09:25)
[2016-10-26] MEDS: LOSARTAN POTASSIUM 25 MG TAB PO SCH (09:25)
--- NOTE | 2016-10-26 13:49 | ELECTROENCEPHALOGRAPH REPORT ---
REQUESTING DOCTOR: Ariella Serna PA-C/Ariella Serna M.D. MEDICAL DIAGNOSIS: Syncope versus seizure. EEG DIAGNOSIS: Essentially normal during wakefulness and brief duration of drowsiness. DESCRIPTION OF TRACING: This EEG was done as a bedside recording and is of reasonable technical quality. Simultaneous video analysis of patient movement and behavior was also obtained. Photic stimulation was the only stimulus parameter utilized. Hyperventilation was not performed and drowsiness is seen intermittently. The EEG is hampered a bit by some eye rolling artifact but this occurs midway through the tracing and and persists for a bit and then disappears. Otherwise the recording is relatively artifact free. During wakefulness there is evidence for well-developed background rhythm in the alpha range of up to 10 hertz of maximum frequency and 30 microvolts of maximum amplitude. This is maximum posterior head regions and bilaterally symmetrical. Polymorphic mid frequency theta activity is seen over all head regions without clear focal regional predominance. Anterior head region maximum bilaterally symmetrical low voltage fast activity in the theta range is present. Photic stimulation provoked some modest driving response without without photomyogenic or photoparoxysmal component. Drowsiness is not associated with any significant abnormalities but again is poorly sustained and deep stages of sleep never develop. At no time during the waking or brief duration of drowsy recording is there evidence for potentially epileptogenic activity in the form of polyspike or spike wave bursts, focal sharp waves or focal spikes. INTERPRETATION: This EEG is essentially normal during wakefulness and brief duration of drowsiness without evidence for focal or generalized encephalopathy without evidence for potentially epileptogenic activity.
[2016-10-26] MEDS: ACETAMINOPHEN 325 MG TAB PO PRN (14:09)
--- NOTE | 2016-10-26 14:18 | Neurology Progress Notes ---
Neurology Progress Note Date of Service Oct 26, 2016. Marycarmen Forde is a 76 year old male with a PMH of COPD, intermittent O2 use, CAD s/p CABG x3, insulin dependent DM2, chronic IV iron, ?? blood loss. He was discharged from [facility] on 10/22 after being here for COPD exacerbation. He states that he noted that when he was receiving solu-medrol in the hospital. When he got home he started having some memory issues and noted his blood sugar was off and took some extra insulin which dropped his blood sugar to the 50s. He was having difficulty explaining things and normally he has not trouble with memory issues. He thinks he was better last night but then today he is having memory issues again. When he was in the hospital 10/22 they were treating him for COPD and gave him steroids. He wears bipap at night but does not have home O2. He smoked for years off and on and has ongoing issues of walking with SOB. Today he states he is feeling better and thinks his concentration is better. He wants to know if his breathing is decrease with walking due to COPD. denies CP, N, V, abdominal pain, weakness, numbness tingling, dizzy spells, falls. Objective Date Time Temp Pulse Resp B/P (MAP) Pulse Ox O2 Delivery O2 Flow Rate FiO2 10/26/16 11:39 36.6 70 15 131/61 (84) 94 Room Air 10/26/16 08:53 95 Room Air CPAP 10/26/16 08:49 36.5 72 15 143/84 (103) 95 Room Air 10/26/16 08:13 36.5 72 15 143/84 (103) 95 Room Air 10/26/16 08:00 Room Air CPAP 10/26/16 00:00 Room Air CPAP 10/25/16 21:41 91 132/90 (104) 10/25/16 16:00 92 Room Air 10/25/16 14:31 36.6 73 16 130/66 (87) 92 Room Air Last 24 Hours Test 10/25/16 14:28 10/25/16 15:29 10/25/16 16:34 10/25/16 16:36 Bedside Glucose 164 mg/dl 251 mg/dl Vitamin B12 Level 815 pg/mL Folate > 24.00 ng/mL Thyroid Stimulating Hormone (TSH) 1.230 uIu/ml Rapid Plasma Reagin NONREACTIVE Lyme Disease IgM Antibody NEG Ammonia 21.0 umol/L Test 10/25/16 20:02 10/26/16 07:52 10/26/16 11:25 Bedside Glucose 203 mg/dl 94 mg/dl 180 mg/dl Imaging: carotid doppler- No hemodynamically significant stenosis seen within the bilateral common or internal carotid arteries. Stenosis of the bilateral external carotid arteries, left greater than right MRI brain with and without- Considerable chronic small vessel change. Age- related atrophy. Otherwise negative study EEG -This EEG is essentially normal during wakefulness and brief duration of drowsiness without evidence for focal or generalized encephalopathy without evidence for potentially epileptogenic activity. 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 ACHS SC 10/23/16 16:00 11/22/16 15:59 10/26/16 13:58 5 UNITS Glucose (Glucose 40% Gel) 15-30 GRAMS 15 GRAMS... UD PRN PO 10/23/16 14:45 11/22/16 14:44 Glucose (Glucose Chew Tab) 4-8 Tablets 4 Tabl... UD PRN PO 10/23/16 14:45 11/22/16 14:44 Dextrose (Dextrose 50% 50ML Syringe) 25-50ML OF 50% DW IV FOR... UD PRN IV 10/23/16 14:45 11/22/16 14:44 Glucagon (Glucagon Inj) 1 mg UD PRN SQ 10/23/16 14:45 11/22/16 14:44 Miscellaneous Information (Consult Glycemic Management Pharmacy) 1 ea UD N/A 10/23/16 14:58 11/22/16 14:57 Aspirin (Ecotrin Tab) 81 mg QAM PO 10/24/16 09:00 11/23/16 08:59 10/26/16 09:25 81 MG Atorvastatin Calcium (Lipitor Tab) 80 mg DAILY PO 10/24/16 09:00 11/23/16 08:59 10/26/16 09:25 80 MG Folic Acid (Folvite Tab) 1 mg DAILY PO 10/24/16 09:00 11/23/16 08:59 10/26/16 09:25 1 MG Isosorbide Mononitrate (Imdur Ext Rel Tab) 30 mg DAILY PO 10/24/16 09:00 11/23/16 08:59 10/26/16 09:25 30 MG Losartan Potassium (coZAAR TAB) 25 mg DAILY PO 10/24/16 09:00 11/23/16 08:59 10/26/16 09:25 25 MG Metoprolol Tartrate (Lopressor Tab) 50 mg BID PO 10/23/16 21:00 11/22/16 20:59 10/26/16 09:25 50 MG Multivitamins/ Minerals (Multivitamin W/ Minerals Tab) 1 tab QAM PO 10/24/16 09:00 11/23/16 08:59 10/26/16 09:25 1 TAB Torsemide (Demadex Tab) 10 mg DAILY PO 10/24/16 09:00 11/23/16 08:59 10/26/16 09:25 10 MG Pantoprazole Sodium (Protonix Tab) 40 mg QAM PO 10/24/16 09:00 11/23/16 08:59 10/26/16 09:25 40 MG Ipratropium [place] (Atrovent 0.02% 0.5MG/2.5ML Neb) 0.5 mg Q6R INH 10/23/16 21:00 11/22/16 20:59 10/25/16 13:54 0.5 MG Levalbuterol (Xopenex 1.25MG/ 0.5ML Neb) 1.25 mg Q6R INH 10/23/16 21:00 11/22/16 20:59 10/25/16 13:54 1.25 MG Acetaminophen (Tylenol Tab) 650 mg Q4H PRN PO 10/23/16 17:45 11/22/16 17:44 10/25/16 21:45 650 MG Heparin Sodium (Porcine) (Heparin 100 Unit/ml 5ml Flush) 5 ml PRN PRN IV 10/24/16 00:45 11/23/16 00:44 10/26/16 08:34 5 ML Quetiapine Fumarate (seroQUEL TAB) 25 mg Q12 PRN PO 10/24/16 08:15 11/23/16 08:14 10/25/16 17:30 25 MG Trazodone HCl (Desyrel Tab) 50 mg HSZ PRN PO 10/24/16 21:00 11/23/16 21:59 10/25/16 21:44 50 MG Gadobutrol (Gadavist) 11.5 mmol UD PRN IV 10/25/16 19:30 10/29/16 19:29 Insulin Glargine (Lantus Solostar Pen) 22 units HS SC 10/26/16 21:00 10/26/16 21:01 Impression 76 year old male with chronic COPD, new onset memory issues- improving- likely sleep depravation and combination of steroid induced confusion Plan 1. RPR, b12, folate, lyme titer, TSH, ammonia level all in normal limits 2. MRI brain with and without contrast would be more sensitive for any occupying lesions- no lesions or structure issues 3. O2 - states gets SOB with ambulation may need PT to evaluate for need of home oxygen 4. continue home bi pap for O2 issues may need re evaluated 5. patient wants to go home states he is feeling better than previous and thinks his concentration is improving 6. EEG due to loss of time- no seizure recorded 7. carotid doppler- for any vascular issues- some stenosis in external carotids 8. follow up with neurology in 3-4 weeks for any further memory issues Ariella AYALA I have seen and discussed above patient with Dr Ariella Connolly, neurology Pt seen and examined. Awoke with some tingling in the L index and middle finger , no pain, has resolved. Feeling better able to concentrate. Exam notable for nml speech, language, neg Tinel's at left wrist, hand temp is symm, nml sensation L hand. Imp, mild transient median nerve impingement likely related to RA involvement at wrist. Delirium related to sleep deprivation and steroids, improving. Pt should see us in follow-up if sx persist. INDIRA Connolly MD
--- NOTE | 2016-10-26 14:20 | Pharmacy Progress Note ---
Glycemic Control Progress Note Date of Service Oct 26, 2016. Scope Glycemic Pharmacist consulted for glycemic control to write orders per [facility] inpatient glycemic control protocol. Objective Accuchecks BSG (last 24hrs): Test 10/25/16 14:28 10/25/16 16:34 10/25/16 20:02 10/26/16 07:52 Bedside Glucose 164 mg/dl (70-99) 251 mg/dl (70-99) 203 mg/dl (70-99) 94 mg/dl (70-99) Test 10/26/16 11:25 Bedside Glucose 180 mg/dl (70-99) Recent Pertinent Medications The patient is currently receiving: * Basal insulin: Lantus 20 units in morning and then 25 units in the evening * Correctional Insulin: Novolog Correction per scale ACHS Goal Range: Low 110 mg/dL - High 140 mg/dL Correction Factor: 15 mg/dL/unit * Prandial insulin: Per carb ratio of 1 unit per 5 grams CHO consumed Outpatient Anti-Diabetic Meds see above Assessment & Plan ASSESSMENT: * See progress note from 10/23/16 for more background info, in short: * Pt receiving SQ basal bolus insulin regimen for hyperglycemia secondary to baseline DM (outpatient regimen on hold) * Patient is currently receiving an average of 70-80 units of insulin per day * 45 units of basal insulin * 41 units of prandial/correctional insulin * BSGs ranging 158 - 251 mg/dl over the past 24hrs * Changes needed to insulin regimen: * AM Fasting BSG = 94 mg/dl. This is in slightly below goal range for patient based on inpatient targets and co-morbidities. The patient received Lantus based upon a scale yesterday evening. Evening blood sugar was 203 mg/dL. It appears that the patient's basal needs are between 40 and 25 units of Lantus. Will adjust and give Lantus 22 units tonight. * Post-prandial BSGs tend to increase throughout the day until patient receives a large dose causing blood sugar to plummet. Tightened carbohydrate ratio slightly. * Total daily dose = 80-90 units. Increase in daily dose may be necessary; altered insulin appropriately. PLAN FOR INPATIENT GLYCEMIC CONTROL: * START Lantus 22 units SQ BID * Continuing correction factor of 15 mg/dl/unit * TIGHTENING carb ratio to 1 unit per 4 grams CHO consumed * Continuing goal range to Low 110 mg/dL - High 140 mg/dL RECOMMENDATIONS FOR DISCHARGE: * patient's HbA1C appears to be reasonably controlled, may continue home regimen Thank you.
--- NOTE | 2016-10-26 16:08 | Progress Note ---
Internal Med Progress Note Date of Service: Oct 26, 2016. Provider Documentation: SUBJECTIVE: Seen and examined at bedside Confusion resolved Discussed with Neurology Denies SOB, chest pain Offers no other complaints Eager to get discharged. Discussed with son, who agrees with plan OBJECTIVE: Vital Signs-as noted below Physical Exam: General Appearance:Obese, no apparent distress Head: normocephalic, Atraumatic Eyes: normal inspection, EOMI, PERRL Neck: supple, Trachea midline Respiratory/Chest: Diminished breath sounds Cardiovascular: S1, S2, No murmur Abdomen/GI:Soft, Non tender, Bowel sounds present Extremities/Musculoskelatal:normal inspection, no edema Neurologic/Psych:AAOX3, grossly no focal neurological deficits Skin: normal color, warm Lab data as noted below. ASSESSMENT & PLAN: Patient is a 76 yr male with a PMH of COPD, intermittent O2 use, CAD s/p CABG x3 , insulin dependent DM2 presents with altered mental status Altered Mental State/METABOLIC ENCEPHALOPATHY likely sleep depravation and combination of steroid induced confusion/ Hypoglycemia BSG on presentation 54 ( pt took extra dose of insulin at home while in confusion state thinking his blood sugar was elevated ) Recently discharged after recovering form COPD exacerbation on Tuesday10/22/16 re admitted with in 24 hrs for confusion/hallucination /racing thoughts on 10/31 Reports history of intolerance to Steroids/prednisone, had similar agitation / confusion years back Symptoms resolved Neurological work up:RPR, b12, folate, lyme titer, TSH, ammonia level all in normal limits MRI brain: no acute changes EEG: no seizure recorded; carotid doppler:some stenosis of the bilateral external carotid arteries L>R no major electrolyte imbalance noted UA negative Appreciate Neurology Input Follow up with Neurology as needed if symptoms reoccur Discussed with Son Jossue Barragan ( # [phone] ) DM II patient uses 70/30 insulin at home was taking more insulin at home while being confused BSGs on admission was low ~ 50 insulin 70/30 kept on hold continue sliding scale glycemic pharmacy consult placed COPD respiratory status appears to be stable no audible wheeze noted avoid Steroids /Prednisone as pt appears to have adverse reaction from it completed doxycycline nebulizer treatments will need nebulizer machine and Xopenex neb solution on discharge CAD s/p CABGx3 no acute issues to note at this time continue current cardiac medications CKD III creatinine at baseline continue Torsemide DVT px SQ heparin FULL CODE DISPOSITION Plan to discharge home today Follow up with for Primary Care on 10/27/16 at 11:00AM Follow up with your Edge Setter in 1-2 weeks as advised Follow up with your Neurologist if your confusion reoccurs Seek immediate medical attention if your symptoms reoccur or worsen Vital Signs: Date Time Temp Pulse Resp B/P (MAP) Pulse Ox O2 Delivery O2 Flow Rate FiO2 10/26/16 16:00 93 Room Air 10/26/16 15:19 36.3 68 20 125/56 (79) 93 Room Air 10/26/16 14:31 68 16 97 Room Air 10/26/16 11:39 36.6 70 15 131/61 (84) 94 Room Air 10/26/16 08:53 95 Room Air CPAP 10/26/16 08:49 36.5 72 15 143/84 (103) 95 Room Air 10/26/16 08:13 36.5 72 15 143/84 (103) 95 Room Air 10/26/16 08:00 Room Air CPAP 10/26/16 00:00 Room Air CPAP 10/25/16 21:41 91 132/90 (104) Lab Results: Results Past 24 Hours Test 10/25/16 20:02 10/26/16 07:52 10/26/16 11:25 Range/Units Bedside Glucose 203 94 180 70-99 mg/dl
--- NOTE | 2016-10-26 17:05 | Discharge Instructions ---
Discharge Instructions Date of Service Oct 26, 2016. Admission Reason for Admission: Altered Mental Status Discharge Discharge Diagnosis / Problem: Altered Mental State/METABOLIC ENCEPHALOPATHY Discharge Goals Goal(s): Decrease discomfort, Improve function Activity Recommendations Activity Limitations: resume your previous activity Exercise/Sports Limitations: as tolerated Driving or Machine Use: Do not drive until cleared by your Primary Care physician . Instructions / Follow-Up Instructions / Follow-Up Follow up with for Primary Care on 10/27/16 at 11:00AM Follow up with your Grinder Brake Lining in 1-2 weeks as advised Follow up with your Neurologist if your confusion reoccurs Seek immediate medical attention if your symptoms reoccur or worsen Discuss with your PCP regarding Insulin dosing as advised Current Hospital Diet Patient's current hospital diet: Diabetes Type 2 Diet Discharge Diet Recommended Diet: Diabetes Type 2 Diet Pending Studies Studies pending at discharge: no Laboratory Results Hemoglobin A1c Test 10/20/16 05:33 Range/Units Estimated Average Glucose 157 mg/dl Hemoglobin A1c 7.1 H 4.5-5.6 % Medical Emergencies . Who to Call and When: Medical Emergencies: If at any time you feel your situation is an emergency, please call 911 immediately. . Non-Emergent Contact Non-Emergency issues call your: Primary Care Provider, Neurologist, Gr[employer] Lining Call Non-Emergent contact if: you have a fever, you have any medication questions Seek immediate medical attention if your symptoms reoccur or worsen . . "Provider Documentation" section prepared by Mauro Smart. . VTE Core Measure Inpt VTE Proph given/why not?: Unfractionated heparin SQ
--- NOTE | 2016-10-26 17:17 | Discharge Summary ---
Discharge Summary Date of Service Oct 26, 2016. Discharge Summary Admission Date: Oct 23, 2016 at 14:38 Discharge Date: Oct 26, 2016 Discharge Disposition: Home Principal Diagnosis: Altered Mental State/METABOLIC ENCEPHALOPATHY Procedures: MRI Brain: 1. Considerable chronic small vessel change. 2. Age-related atrophy.. 3. Otherwise negative study. Carotid Doppler: No hemodynamically significant stenosis seen within the bilateral common or internal carotid arteries. Stenosis of the bilateral external carotid arteries, left greater than right. EEG: This EEG is essentially normal during wakefulness and brief duration of drowsiness without evidence for focal or generalized encephalopathy without evidence for potentially epileptogenic activity. Consultations: Neurology Pending Studies/Follow-Up: Follow up with for Primary Care on 10/27/16 at 11:00AM Follow up with your Screw Eye Assembler in 1-2 weeks as advised Follow up with your Neurologist if your confusion reoccurs Discuss with your PCP regarding Insulin dosing as advised Seek immediate medical attention if your symptoms reoccur or worsen Medication Reconciliation Continued Medications: Aspirin (Aspirin Ec) 81 Mg Tab 81 MG PO QAM Atorvastatin (Lipitor) 80 Mg Tab 80 MG PO DAILY Cholecalciferol (Vitamin D) 2,000 Unit Tab 4000 INTER.UNIT PO QAM Fenofibrate (Fenofibrate Micronized) 200 Mg Cap 200 MG PO DAILY TAKE THIS MEDICATION ONCE DAILY WITH A MEAL Fluticasone Propionate (Fluticasone Propionate) 50 Mcg/Act Spr 2 SPRAYS NA DAILY for 30 Days, #1 INHALER 2 Refills Folic Acid (Folic Acid) 1 Mg Tab 1 MG PO DAILY Insulin Isophan/Regular (Novolin 70/30) Susp 1 DOSE SC QPM, BTL PM DOSAGE DIRECTED BY SLIDING SCALE Insulin Isophan/Regular (Novolin 70/30) Susp 65-70 UNITS SC QAM, BTL Isosorbide Mononitrate Ext Rel (Imdur Ext Rel) 30 Mg Tabcr 30 MG PO DAILY Loratadine & Pseudoephedrine (Claritin-D 24 Hour) 1 Tab Tab 1 TAB PO QAM, #30 TAB Losartan Potassium (Losartan Potassium) 25 Mg Tab 25 MG PO DAILY Metformin Hcl (Glucophage) 1,000 Mg Tab 1000 MG PO BID TAKE THIS MEDICATION WITH MORNING AND EVENING MEALS Metoprolol Tartrate (Metoprolol Tartrate) 50 Mg Tab 50 MG PO BID Multivitamins/Minerals (Mvi With Minerals) Tab 1 TAB PO QAM, TAB Nitroglycerin (Nitrostat) 0.4 Mg Sub 0.4 MG UT UD PRN for Chest Pain, BTL PLACE ONE TABLET UNDER THE TONGUE EVERY 5 MINUTES FOR UP TO 3 DOSES IF NEEDED FOR CHEST PAIN. Omeprazole (Prilosec) 20 Mg Cap 20 MG PO QAM Torsemide (Torsemide) 20 Mg Tab 10 MG PO DAILY Discontinued Medications: Doxycycline Hyclate (Doxycycline Hyclate) 100 Mg Cap 100 MG PO BID for 2 Days, #4 CAP Admission Information HPI (per Admitting provider): This is a 76 year old male with a PMH of COPD, intermittent O2 use, CAD s/p CABG x3, insulin dependent DM2 - presents to the ER due to confusion and shortness of breath. He was discharged from [facility] on 10/22 after being here for COPD exacerbation. He states that he noted that when he was receiving solu- medrol in the hospital, he felt off. When he got home the night of 10/22, he felt to be in a dream-like state and his vision was also changing. He noted that his blood sugar was elevated and he took some insulin, then he noted that his blood sugars were too low and tried to bring it up with orange juice and glucose tablets, which did not help. He states he's still having difficulty finding words and remembering details. He states he does not like prednisone or solu- medrol and refused prednisone on discharge. Upon presentation, he was noted to have BSGs in the 50s. Head CT was negative currently, talking to me without issues, does not seem confused right now, but seems anxious about his symptoms at home. Physical Exam (per Admitting): General Appearance: + mild distress, + obese Head: normocephalic, atraumatic Eyes: normal inspection ENT: hearing grossly normal Respiratory/Chest: + respiratory distress, + decreased breath sounds, + wheezing Cardiovascular: regular rate, rhythm, no edema, no murmur Abdomen/GI: normal bowel sounds, non tender, soft Back: + pertinent finding (+psoriatic changes noted on lower back) Extremities/Musculoskelatal: normal capillary refill, no pedal edema Neurologic/Psych: spring coiling machine setter II-XII nml as tested, no motor/sensory deficits, alert , normal mood/affect, normal reflexes, oriented x 3 Skin: normal color Lymphatic: no adenopathy Hospital Course Patient is a 76 yr male with a PMH of COPD, intermittent O2 use, CAD s/p CABG x3 , insulin dependent DM2 presents with altered mental status Altered Mental State/METABOLIC ENCEPHALOPATHY likely sleep depravation and combination of steroid induced confusion/ Hypoglycemia BSG on presentation 54 ( pt took extra dose of insulin at home while in confusion state thinking his blood sugar was elevated ) Recently discharged after recovering form COPD exacerbation on Tuesday10/22/16 re admitted with in 24 hrs for confusion/hallucination /racing thoughts on 10/31 Reports history of intolerance to Steroids/prednisone, had similar agitation / confusion years back Symptoms resolved Neurological work up:RPR, b12, folate, lyme titer, TSH, ammonia level all in normal limits MRI brain: no acute changes EEG: no seizure recorded; carotid doppler:some stenosis of the bilateral external carotid arteries L>R no major electrolyte imbalance noted UA negative Appreciate Neurology Input Follow up with Neurology as needed if symptoms reoccur Discussed with Son Jossue Barragan ( # [phone] ) DM II patient uses 70/30 insulin at home was taking more insulin at home while being confused BSGs on admission was low ~ 50 insulin 70/30 kept on hold continue sliding scale glycemic pharmacy consult placed COPD respiratory status appears to be stable Reports inhalers do not work and Lung function test normal per patient no audible wheeze noted avoid Steroids /Prednisone as pt appears to have adverse reaction from it completed doxycycline nebulizer treatments will need nebulizer machine and Xopenex neb solution on discharge CAD s/p CABGx3 no acute issues to note at this time continue current cardiac medications CKD III creatinine at baseline continue Torsemide DVT px SQ heparin FULL CODE DISPOSITION Plan to discharge home today Follow up with for Primary Care on 10/27/16 at 11:00AM Follow up with your Screw Eye Assembler in 1-2 weeks as advised Follow up with your Neurologist if your confusion reoccurs Seek immediate medical attention if your symptoms reoccur or worsen Total time spent on discharge =33 minutes This includes examination of the patient, discharge planning, medication reconciliation, and communication with other providers. Discharge Instructions Discharge Instructions Date of Service Oct 26, 2016. Admission Reason for Admission: Altered Mental Status Discharge Discharge Diagnosis / Problem: Altered Mental State/METABOLIC ENCEPHALOPATHY Discharge Goals Goal(s): Decrease discomfort, Improve function Activity Recommendations Activity Limitations: resume your previous activity Exercise/Sports Limitations: as tolerated Driving or Machine Use: Do not drive until cleared by your Primary Care physician . Instructions / Follow-Up Instructions / Follow-Up Follow up with for Primary Care on 10/27/16 at 11:00AM Follow up with your Screw Eye Assembler in 1-2 weeks as advised Follow up with your Neurologist if your confusion reoccurs Discuss with your PCP regarding Insulin dosing as advised Seek immediate medical attention if your symptoms reoccur or worsen Current Hospital Diet Patient's current hospital diet: Diabetes Type 2 Diet Discharge Diet Recommended Diet: Diabetes Type 2 Diet Pending Studies Studies pending at discharge: no Laboratory Results Hemoglobin A1c Test 10/20/16 05:33 Range/Units Estimated Average Glucose 157 mg/dl Hemoglobin A1c 7.1 H 4.5-5.6 % Medical Emergencies . Who to Call and When: Medical Emergencies: If at any time you feel your situation is an emergency, please call 911 immediately. . Non-Emergent Contact Non-Emergency issues call your: Primary Care Provider, Neurologist, Screw Eye Assembler Call Non-Emergent contact if: you have a fever, you have any medication questions Seek immediate medical attention if your symptoms reoccur or worsen . . "Provider Documentation" section prepared by Mauro Smart. . VTE Core Measure Inpt VTE Proph given/why not?: Unfractionated heparin SQ <Electronically signed by Mauro Smart MD> Signed: 10/26/16 [id number] Signed: The status of this report is Signed * If report status is Draft, the document has not been finalized by the responsible provider.
== END 2016-10-26 18:45 | disposition home or self-care (01) | DRG 92 ==
LOC: C.EDB 11:00 → C.MED 14:38 → ENRESERV 15:08
PROVIDERS: ADMIT Family Medicine; ATTEND Internal Medicine
DX: G92 Toxic encephalopathy (principal); E11.649 Type 2 diabetes mellitus with hypoglycemia without coma; K55.1 Chronic vascular disorders of intestine; E87.6 Hypokalemia; J44.9 Chronic obstructive pulmonary disease, unspecified; E83.42 Hypomagnesemia; T38.0X5A Adverse effect of glucocorticoids and synthetic analogues, initial encounter; N18.3 Chronic kidney disease, stage 3 (moderate); I25.10 Atherosclerotic heart disease of native coronary artery without angina pectoris; Z79.4 Long term (current) use of insulin; Z86.73 Personal history of transient ischemic attack (TIA), and cerebral infarction without residual deficits; Z85.46 Personal history of malignant neoplasm of prostate; Z95.1 Presence of aortocoronary bypass graft; Y92.009 Unspecified place in unspecified non-institutional (private) residence as the place of occurrence of the external cause; Z72.820 Sleep deprivation

== ENCOUNTER 2017-03-31 00:46 | Emergency (ER) | payer OTHER ==
[~2017-03-31] VITALS: Ht 160 cm; Wt 113.3 kg
[~2017-03-31 00:46] MED LIST changes: -DXY100 PO; +LORA-749 PO; -LORA10TA57 PO
[2017-03-31 00:59] VITALS: TEMP 36.8
[2017-03-31] MEDS ORDERED: ONDANSETRON INJ 2 MG/ML 2 ML VIAL IV STA (01:41)
[2017-03-31] MEDS ORDERED: SODIUM CHLORIDE 0.9% 1000ML 1,000 ML IV SCH (01:41)
--- NOTE | 2017-03-31 02:09 | EMERGENCY ROOM VISIT NOTE ---
History Report prepared by Shiela: Brittany Ramírez Under the Supervision of: Dr. Paola Blanco M.D. First contact with patient: 01:12 Chief Complaint: ALTERED MENTAL STATUS Stated Complaint: ALTERED MENTAL STATUS Nursing Triage Summary: Per EMS pt was not acting himself and family called EMS. When [facility] arrived pt was acting baseline except for repeating himself. Pt arrives to ED with c/o earlier chest discomfort and nausea. History of Present Illness The patient is a 76 year old male who presents to the Emergency Room with complaints of a persistent altered mental status that began several days ago. The patient states that he saw his PCP one day ago. He reports that he has been confused, not feeling well, nauseous, and has some chest discomfort. He denies having a hard time waking up. The patient takes Aspirin and that his blood sugar has been okay. HPI limited due to patient being in an altered mental status. Source of History: patient History Limited By: AMS Onset: several days ago Position: other (global) Quality: other (altered mental status) Timing: other (persistent) Associated Symptoms: + nausea Note: Associated symptoms include: confused, not feeling well, and has some chest discomfort. Review of Systems See HPI for pertinent positives & negatives. A total of 10 systems reviewed and were otherwise negative. Past Medical & Surgical Medical Problems: (1) Altered mental state (2) CKD (chronic kidney disease), stage III (3) Coronary artery disease (4) History of Mesenteric Atherosclerosis (5) HLD (hyperlipidemia) (6) SNOW (iron deficiency anemia) (7) IDDM (insulin dependent diabetes mellitus) (8) Prostate cancer (9) Psoriatic arthritis (10) Sleep apnea (11) TIA (transient ischemic attack) Surgical Problems: (1) H/O colonoscopy (2) History of esophagogastroduodenoscopy (EGD) (3) Hx of CABG Family History Bleeding disorder FH: CAD (coronary artery disease) FH: cancer Social History Smoking Status: Former Smoker Alcohol Use: none Marital Status: Housing Status: lives with family Occupation Status: retired Current/Historical Medications Scheduled Aspirin (Aspirin Chewable), 81 MG PO DAILY Atorvastatin (Lipitor), 80 MG PO DAILY Baclofen (Lioresal), 20 MG PO TID Cholecalciferol (Vitamin D), 4,000 INTER.UNIT PO QAM Fenofibrate (Fenofibrate Micronized), 200 MG PO DAILY Fluticasone Propionate (Fluticasone Propionate), 2 SPRAYS NA DAILY Folic Acid (Folic Acid), 1 MG PO DAILY Home O2 Therapy (Oxygen), 2 LITERS NA UD Insulin Isophan/Regular (Novolin 70/30), 75 UNITS SC AMPM Isosorbide Mononitrate Ext Rel (Imdur Ext Rel), 30 MG PO DAILY Losartan Potassium (Losartan Potassium), 25 MG PO DAILY Metformin Hcl (Glucophage), 1,000 MG PO BID Metoprolol Tartrate (Metoprolol Tartrate), 50 MG PO BID Omeprazole (Prilosec), 20 MG PO QAM Torsemide (Torsemide), 10 MG PO DAILY Scheduled PRN Albuterol Hfa (Ventolin Hfa), 2 PUFFS INH Q4 PRN for Shortness of Breath Betamethasone Dip (Betamethasone Dipropionat), 1 APPLN TOP BID PRN for flares Clobetasol Propionate (Temovate), 1 APPLN TOP BID PRN for when flares Diclofenac (Voltaren), 50 MG PO TID PRN for Pain Levalbuterol (Levalbuterol HCl), 3 ML NEB Q8 PRN for SOB/Wheezing Nitroglycerin (Nitrostat), 0.4 MG UT UD PRN for Chest Pain Tramadol (Ultram), 50 MG PO Q6 PRN for Pain Triamcinolone Acet (Aristocort 0.1%), 1 APPLN TOP BID PRN for flares Allergies Coded Allergies: Prednisone (Unverified Adverse Reaction, Unknown, INCREASE BLOOD SUGAR, ) Physical Exam Vital Signs Date Time Temp Pulse Resp B/P (MAP) Pulse Ox O2 Delivery O2 Flow Rate FiO2 03/31/17 06:00 68 18 142/102 98 Nasal Cannula 2.0 03/31/17 05:24 86 18 162/93 99 Nasal Cannula 2.0 03/31/17 04:07 48 16 111/56 100 Nasal Cannula 2.0 03/31/17 03:58 48 03/31/17 02:28 97 16 164/73 93 Room Air 03/31/17 02:13 Room Air 03/31/17 01:09 69 03/31/17 00:59 36.8 69 18 164/73 95 Room Air Physical Exam Vital signs reviewed. General: Obese, chronically ill appearing, in no significant distress. Answers questions appropriately, follows commands. HEENT: No scleral icterus, PERRLA, neck supple. Atraumatic. Cardiovascular: Regular rate and rhythm, no extra sounds. Pulmonary: Clear to auscultation bilaterally, normal work of breathing. Abdomen: Soft, nontender, nondistended, positive bowel sounds. Musculoskeletal: Atraumatic, no peripheral edema. Neurologic: Patient awake alert and oriented x 3, full strength in all 4 extremities. Cranial nerves 2 through 12 grossly intact. Skin: Warm, dry, no rash Medical Decision & Procedures ER Provider Diagnostic Interpretation: Chest x-ray results as stated below per interpretation by me and the radiologist : One view: Indwelling port in left chest, post surgical change noted, cardiomegaly, question vascular versus interstitial consolidation in right lower lung field, no evidence of failure. HEAD WITHOUT CONTRAST (CT) CLINICAL HISTORY: 76 years-old Male with Stroke. Acute strokelike symptoms with chest discomfort and altered mental status TECHNIQUE: Multiple axial CT images of the head were obtained without contrast. A dose lowering technique was utilized adhering to the principles of ALARA. CT DOSE: 537.48 mGy.cm COMPARISON: Head CT 10/23/2016. FINDINGS: No acute intracranial hemorrhage, midline shift, intracranial mass, hydrocephalus, territorial ischemia or abnormal extra-axial collection. There is mild atrophy with chronic microvascular ischemic changes. Atherosclerotic plaquing is noted within the cerebral vasculature at the level of the skull base. The calvarium is intact. The paranasal sinuses, mastoid air cells, and middle ear cavities are clear. IMPRESSION: No acute intracranial abnormality. The above report was generated using voice recognition software. It may contain grammatical, syntax or spelling errors. Electronically signed by: Boubacar Zepeda M.D. 03/31/2017 6:53 AM Dictated Date/Time: 03/31/2017 6:51 AM Laboratory Results 03/31/17 01:20 Red Blood Count 4.12, Mean Corpuscular Volume 88.6, Mean Corpuscular Hemoglobin 30.3, Mean Corpuscular Hemoglobin Concent 34.2, Mean Platelet Volume 9.3, Neutrophils (%) (Auto) 87.3, Lymphocytes (%) (Auto) 10.4, Monocytes (%) (Auto) 1.6, Eosinophils (%) (Auto) 0.2, Basophils (%) (Auto) 0.2, Neutrophils # (Auto) 9.61, Lymphocytes # (Auto) 1.14, Monocytes # (Auto) 0.18, Eosinophils # (Auto) 0.02, Basophils # (Auto) 0.02 03/31/17 01:20 Test 03/31/17 01:20 03/31/17 04:30 White Blood Count 11.00 K/uL (4.8-10.8) Red Blood Count 4.12 M/uL (4.7-6.1) Hemoglobin 12.5 g/dL (14.0-18.0) Hematocrit 36.5 % (42-52) Mean Corpuscular Volume 88.6 fL (80-100) Mean Corpuscular Hemoglobin 30.3 pg (25-34) Mean Corpuscular Hemoglobin Concent 34.2 g/dl (32-36) Platelet Count 238 K/uL (130-400) Mean Platelet Volume 9.3 fL (7.4-10.4) Neutrophils (%) (Auto) 87.3 % Lymphocytes (%) (Auto) 10.4 % Monocytes (%) (Auto) 1.6 % Eosinophils (%) (Auto) 0.2 % Basophils (%) (Auto) 0.2 % Neutrophils # (Auto) 9.61 K/uL (1.4-6.5) Lymphocytes # (Auto) 1.14 K/uL (1.2-3.4) Monocytes # (Auto) 0.18 K/uL (0.11-0.59) Eosinophils # (Auto) 0.02 K/uL (0-0.5) Basophils # (Auto) 0.02 K/uL (0-0.2) RDW Standard Deviation 43.5 fL (36.4-46.3) RDW Coefficient of Variation 13.3 % (11.5-14.5) Immature Granulocyte % (Auto) 0.3 % Immature Granulocyte # (Auto) 0.03 K/uL (0.00-0.02) Prothrombin Time 11.1 SECONDS (9.0-12.0) Prothromb Time International Ratio 1.1 (0.9-1.1) Activated Partial Thromboplast Time 28.2 SECONDS (21.0-31.0) Partial Thromboplastin Ratio 1.1 Anion Gap 8.0 mmol/L (3-11) Est Creatinine Clear Calc Drug Dose 32.7 ml/min Estimated GFR () 32.4 Estimated GFR (Non- 28.0 BUN/Creatinine Ratio 14.0 (10-20) Calcium Level 8.9 mg/dl (8.5-10.1) Magnesium Level 1.5 mg/dl (1.8-2.4) Total Creatine Kinase 81 U/L (39-308) Creatine Kinase MB 1.5 ng/ml (0.5-3.6) Creatine Kinase MB Ratio 1.9 (0-3.0) Troponin I < 0.015 ng/ml (0-0.045) Urine Color YELLOW Urine Appearance CLEAR (CLEAR) Urine pH 5.0 (4.5-7.5) Urine Specific [place] 1.021 (1.000-1.030) Urine Protein 2+ (NEG) Urine Glucose (UA) NEG (NEG) Urine Ketones TRACE (NEG) Urine Occult Blood NEG (NEG) Urine Nitrite NEG (NEG) Urine Bilirubin NEG (NEG) Urine Urobilinogen NEG (NEG) Urine Leukocyte Esterase TRACE (NEG) Urine WBC (Auto) 5-10 /hpf (0-5) Urine RBC (Auto) 0-4 /hpf (0-4) Urine Hyaline Casts (Auto) 1-5 /lpf (0-5) Urine Epithelial Cells (Auto) >30 /lpf (0-5) Urine Bacteria (Auto) NEG (NEG) Laboratory results per my review. Medications Administered Medications (Trade) Dose Ordered Sig/Camelia Route Start Time Stop Time Status Last Admin Dose Admin Sodium Chloride 1,000 ml @ 50 mls/hr Q20H IV 03/31/17 01:41 04/30/17 01:40 03/31/17 02:27 50 MLS/HR Ondansetron HCl (Zofran Inj) 4 mg NOW STAT IV 03/31/17 01:41 03/31/17 01:44 DC 03/31/17 02:27 4 MG Magnesium Oxide (Mag-Ox Tab) 800 mg NOW STAT PO 03/31/17 05:50 03/31/17 05:51 DC 03/31/17 05:59 800 MG ECG Per My Interpretation Indication: altered mental status, other (chest discomfort) Rate (beats per minute): 64 Rhythm: sinus rhythm Findings: 1st degree AV block, PVC, no acute ischemic change Change: The patients electrocardiogram was interpreted by me. ED Course 0126: Past medical records reviewed. The patient was evaluated in room B7. A complete history and physical examination was performed. 0141: Ordered Zofran Inj 4mg IV and Sodium Chloride 1000ml @ 50 mls/hr IV. 0421: I reevaluated the patient, who was sleeping. 0541: The patient's son was called and the test findings were discussed with him. He verbalized complete understanding and agreement of the treatment plan. He will come in about an hour to take the patient home. Medical Decision Differential diagnosis: Etiologies such as metabolic, infection, hypoglycemia, electrolyte abnormalities , cardiac sources, intracerebral event, toxicologic, neurologic, as well as others were entertained. This patient was evaluated and appeared to be in no significant distress. The patient was answering questions appropriately on my initial exam. CT scan of the head was performed and revealed no evidence of acute intracranial abnormality. Patient's laboratory work is fairly unrevealing. He was kept in the emergency department for multiple hours. On reassessment, the patient was answering all questions appropriately. He did dive out to the nurse that he started feeling this way 3-4 days ago when he started taking baclofen. This happened him one time previously after taking a course of prednisone. Patient was advised to stop the baclofen. He will continue other medications as prescribed. He'll follow-up with his physician this week for reevaluation and return to the ER for worsening of symptoms or any medical concerns. Medication Reconcilliation Current Medication List: was personally reviewed by me Blood Pressure Screening Patient's blood pressure: Elevated blood pressure Blood pressure disposition: Elevated BP felt to be situational Impression Primary Impression: Altered mental status Additional Impression: Medication adverse effect Scribe Attestation The scribe's documentation has been prepared under my direction and personally reviewed by me in its entirety. I confirm that the note above accurately reflects all work, treatment, procedures, and medical decision making performed by me. Departure Information Dispostion Home / Self-Care Referrals Levy Stout M.D. (PCP) Forms HOME CARE DOCUMENTATION FORM, IMPORTANT VISIT INFORMATION Patient Instructions [facility] Additional Instructions Continue your medications as prescribed. Drink plenty of clear fluids. Follow-up with your physician this week for reevaluation and consideration of further testing. Return to the emergency department for worsening of symptoms or any medical concerns. Problem Qualifiers
[2017-03-31 02:13] VITALS: Ht 160 cm; Wt 113.3 kg
[2017-03-31 02:14] LABS: BASO % 0.2 %; BASO ABS # 0.02 K/uL (0-0.2); EOS % 0.2 %; EOS ABS # 0.02 K/uL (0-0.5); HEMATOCRIT 36.5 % (42-52); HEMOGLOBIN 12.5 g/dL (14.0-18.0); IG# 0.03 K/uL (0.00-0.02); LYMPH % 10.4 %; LYMPH ABS # 1.14 K/uL (1.2-3.4); MEAN CELL VOLUME 88.6 fL (80-100); MEAN CORPUSCULAR HEMOGLOBIN 30.3 pg (25-34); MEAN CORPUSCULAR HGB CONC 34.2 g/dl (32-36); MEAN PLATELET VOLUME 9.3 fL (7.4-10.4); MONO % 1.6 %; MONO ABS # 0.18 K/uL (0.11-0.59); NEUT % 87.3 %; NEUT ABS # 9.61 K/uL (1.4-6.5); PLATELET COUNT 238 K/uL (130-400); RED CELL DISTRIBUTION WIDTH CV 13.3 % (11.5-14.5); RED CELL DISTRIBUTION WIDTH SD 43.5 fL (36.4-46.3)
[2017-03-31 02:22] LABS: INR 1.1 (0.9-1.1); PTT PATIENT 28.2 SECONDS (21.0-31.0)
[2017-03-31 02:24] LABS: BLOOD UREA NITROGEN 31 mg/dl (7-18); CALCIUM 8.9 mg/dl (8.5-10.1); CARBON DIOXIDE 27 mmol/L (21-32); CREATININE 2.23 mg/dl (0.60-1.40); GLUCOSE 115 mg/dl (70-99); POTASSIUM 4.4 mmol/L (3.5-5.1); SODIUM 138 mmol/L (136-145)
[2017-03-31 02:29] LABS: CKMB 1.5 ng/ml (0.5-3.6)
[2017-03-31] MEDS ORDERED: TRAM-10 PO (03:41)
[2017-03-31] MEDS ORDERED: ASPCH81X PO (03:41)
[2017-03-31] MEDS ORDERED: BACL20TA PO (03:41)
[2017-03-31] MEDS ORDERED: DICL50TA3 PO (03:42)
[2017-03-31] MEDS ORDERED: VNTHFA/IN INH (03:44)
[2017-03-31] MEDS ORDERED: XPNINS125 NEB (03:44)
[2017-03-31] MEDS ORDERED: CLOB-77 TOP (03:45)
[2017-03-31] MEDS ORDERED: DPRSL60 TOP (03:48)
[2017-03-31] MEDS ORDERED: TRMCR180 TOP (03:50)
[2017-03-31] MEDS ORDERED: OXGN (03:50)
[2017-03-31] MEDS ORDERED: MAGNESIUM OXIDE 400 MG TAB PO STA (05:50)
--- NOTE | 2017-03-31 06:43 | DIAGNOSTIC IMAGING REPORT ---
CHEST ONE VIEW PORTABLE HISTORY: 76 years-old Male Stroke acute strokelike symptoms with altered mental status COMPARISON: Chest radiograph 10/19/2016 TECHNIQUE: Portable AP view of the chest FINDINGS: Cardiac silhouette is again enlarged. Prior median sternotomy. Left subclavian Orvcgd-v-Tpop catheter appears unchanged. There is no pneumothorax, pleural effusion, focal airspace consolidation or overt pulmonary edema. The bones of the chest appear grossly intact. IMPRESSION: No acute process. The above report was generated using voice recognition software. It may contain grammatical, syntax or spelling errors. Electronically signed by: Boubacar Zepeda M.D. 03/31/2017 6:41 AM Dictated Date/Time: 03/31/2017 6:40 AM
--- NOTE | 2017-03-31 06:55 | DIAGNOSTIC IMAGING REPORT ---
HEAD WITHOUT CONTRAST (CT) CLINICAL HISTORY: 76 years-old Male with Stroke. Acute strokelike symptoms with chest discomfort and altered mental status TECHNIQUE: Multiple axial CT images of the head were obtained without contrast. A dose lowering technique was utilized adhering to the principles of ALARA. CT DOSE: 537.48 mGy.cm COMPARISON: Head CT 10/23/2016. FINDINGS: No acute intracranial hemorrhage, midline shift, intracranial mass, hydrocephalus, territorial ischemia or abnormal extra-axial collection. There is mild atrophy with chronic microvascular ischemic changes. Atherosclerotic plaquing is noted within the cerebral vasculature at the level of the skull base. The calvarium is intact. The paranasal sinuses, mastoid air cells, and middle ear cavities are clear. IMPRESSION: No acute intracranial abnormality. The above report was generated using voice recognition software. It may contain grammatical, syntax or spelling errors. Electronically signed by: Boubacar Zepeda M.D. 03/31/2017 6:53 AM Dictated Date/Time: 03/31/2017 6:51 AM
[2017-03-31 07:31] VITALS: BP 146/79; PULSE 72; O2SAT 95
== END 2017-03-31 07:32 | disposition home or self-care (01) ==
LOC: EDBD 00:46 → C.EDB 00:47
DX: T88.7XXA Unspecified adverse effect of drug or medicament, initial encounter (principal); I44.0 Atrioventricular block, first degree; I49.3 Ventricular premature depolarization; E66.9 Obesity, unspecified; I25.10 Atherosclerotic heart disease of native coronary artery without angina pectoris; N18.3 Chronic kidney disease, stage 3 (moderate); E78.5 Hyperlipidemia, unspecified; E11.9 Type 2 diabetes mellitus without complications; Z79.4 Long term (current) use of insulin; Z79.82 Long term (current) use of aspirin; Z79.899 Other long term (current) drug therapy; Z99.81 Dependence on supplemental oxygen; Z85.46 Personal history of malignant neoplasm of prostate; Z86.73 Personal history of transient ischemic attack (TIA), and cerebral infarction without residual deficits; Z87.891 Personal history of nicotine dependence; Z88.8 Allergy status to other drugs, medicaments and biological substances; Z82.49 Family history of ischemic heart disease and other diseases of the circulatory system; Z83.2 Family history of diseases of the blood and blood-forming organs and certain disorders involving the immune mechanism

== ENCOUNTER 2017-05-19 13:09 | Emergency (ER) | payer OTHER ==
[~2017-05-19] VITALS: Ht 162.6 cm; Wt 120.0 kg
[~2017-05-19 13:09] MED LIST changes: +ASPCH81X PO; -ASPI81TA28 PO; +BACL20TA PO; +CLOB-77 TOP; +DICL50TA3 PO; +DPRSL60 TOP; -LORA-749 PO; -MULTTAB PO; +OXGN; +TRAM-10 PO; +TRMCR180 TOP; +VNTHFA/IN INH; +XPNINS125 NEB
[2017-05-19 13:20] VITALS: TEMP 37; O2SAT 94
[2017-05-19] MEDS ORDERED: ALBUT/IPRATROP 3MG/0.5MG NEB 3 ML VIAL INH STA (13:44)
[2017-05-19] MEDS ORDERED: METHYLPREDNISOLONE 125 MG VIAL IV STA (13:44)
--- NOTE | 2017-05-19 14:02 | DIAGNOSTIC IMAGING REPORT ---
CHEST ONE VIEW PORTABLE CLINICAL HISTORY: EVALUATE RESPIRATORY DISTRESS.DYSPNEA COMPARISON STUDY: Chest radiograph March 31, 2017. FINDINGS: A left subclavian Jyoiwk-v-Trkc is in place. There are median sternotomy wires and clips from bypass grafting. No pneumothorax or pleural effusion is noted. There is no evidence for pulmonary edema. Enlargement of the cardiac silhouette is unchanged. IMPRESSION: No acute cardiopulmonary findings. Electronically signed by: Vitaly Tadeo M.D. 05/19/2017 2:00 PM Dictated Date/Time: 05/19/2017 2:00 PM
[2017-05-19 14:03] VITALS: Ht 162.6 cm; Wt 120.0 kg
[2017-05-19 14:13] LABS: BASO % 0.4 %; BASO ABS # 0.02 K/uL (0-0.2); EOS % 3.9 %; EOS ABS # 0.21 K/uL (0-0.5); HEMATOCRIT 35.4 % (42-52); HEMOGLOBIN 11.8 g/dL (14.0-18.0); IG# 0.02 K/uL (0.00-0.02); LYMPH % 19.8 %; LYMPH ABS # 1.07 K/uL (1.2-3.4); MEAN CELL VOLUME 89.4 fL (80-100); MEAN CORPUSCULAR HEMOGLOBIN 29.8 pg (25-34); MEAN CORPUSCULAR HGB CONC 33.3 g/dl (32-36); MEAN PLATELET VOLUME 9.2 fL (7.4-10.4); MONO % 3.3 %; MONO ABS # 0.18 K/uL (0.11-0.59); NEUT % 72.2 %; NEUT ABS # 3.91 K/uL (1.4-6.5); PLATELET COUNT 172 K/uL (130-400); RED CELL DISTRIBUTION WIDTH CV 13.5 % (11.5-14.5); RED CELL DISTRIBUTION WIDTH SD 44.6 fL (36.4-46.3); WHITE BLOOD COUNT 5.41 K/uL (4.8-10.8)
[2017-05-19 14:23] LABS: PTT PATIENT 27.6 SECONDS (21.0-31.0)
[2017-05-19 14:30] LABS: BLOOD UREA NITROGEN 29 mg/dl (7-18); CALCIUM 8.5 mg/dl (8.5-10.1); CARBON DIOXIDE 27 mmol/L (21-32); CREATININE 2.56 mg/dl (0.60-1.40); GLUCOSE 57 mg/dl (70-99); POTASSIUM 4.1 mmol/L (3.5-5.1); SODIUM 137 mmol/L (136-145)
[2017-05-19] MEDS ORDERED: FLUT0.15 NAE (14:44)
[2017-05-19] MEDS ORDERED: INSU70IN2 SC (14:44)
[2017-05-19] MEDS ORDERED: DEXTROSE 50% 50 ML SYR IV ONE (15:00)
--- NOTE | 2017-05-19 16:11 | EMERGENCY ROOM VISIT NOTE ---
History Report prepared by Shiela: Luc Brown Under the Supervision of: Dr. Kevan Cobian M.D. First contact with patient: 13:29 Chief Complaint: RESPIRATORY PROBLEMS Stated Complaint: BREATHING DIFFICULTY Nursing Triage Summary: pt. was seen at doctors office today and was sent by als, bsg in office was 30, orange juice administered, ambulance bsg 54, administered 100ml D10, bsg currently is 90, pt. had received z-kei on tuesday for pnemonia, was unable to get his additional nebulizer treatments that the doctor perscribed at that time , and still feeling poorly, pt. has expiratory wheezes History of Present Illness The patient is a 76 year old white male with a past medical history of altered mental state, CKD (chronic kidney disease), stage III, coronary artery disease, mesenteric atherosclerosis, HLD (hyperlipidemia), SNOW (iron deficiency anemia) , IDDM (insulin dependent diabetes mellitus), prostate cancer, psoriatic arthritis, sleep apnea, TIA (transient ischemic attack) who presents to the Emergency Room with complaints of worsening breathing difficulties, that he has been experiencing for the past week. The patient was at [facility] on Tuesday and was diagnosed with pneumonia and given a Z-kei. He also notes that he has had a persistent cough for the past week that is intermittently productive. The patient went back to [facility] today because his symptoms have not improved. Upon his arrival to [facility] today his blood sugar was found to be 54. He was given orange juice and D10, which brought his sugar up to the 90s. He was then brought to the ED via ALS. Source of History: patient Onset: One week [employer] Position: chest Quality: other (respiratory difficulties) Timing: worsening Associated Symptoms: + cough (productive) Review of Systems See HPI for pertinent positives and negatives. A total of ten systems were reviewed and were otherwise negative. Past Medical & Surgical Medical Problems: (1) Altered mental state (2) CKD (chronic kidney disease), stage III (3) Coronary artery disease (4) History of Mesenteric Atherosclerosis (5) HLD (hyperlipidemia) (6) SNOW (iron deficiency anemia) (7) IDDM (insulin dependent diabetes mellitus) (8) Prostate cancer (9) Psoriatic arthritis (10) Sleep apnea (11) TIA (transient ischemic attack) Surgical Problems: (1) H/O colonoscopy (2) History of esophagogastroduodenoscopy (EGD) (3) Hx of CABG Family History Bleeding disorder FH: CAD (coronary artery disease) FH: cancer Social History Smoking Status: Former Smoker Alcohol Use: none Marital Status: Housing Status: lives with family Occupation Status: retired Current/Historical Medications Scheduled Aspirin (Aspirin Chewable), 81 MG PO DAILY Atorvastatin (Lipitor), 80 MG PO DAILY Cholecalciferol (Vitamin D), 4,000 INTER.UNIT PO QAM Fenofibrate (Fenofibrate Micronized), 200 MG PO DAILY Fluticasone Propionate (Nasal) (Flonase Allergy Relief), 2 SPRAYS REANNA DAILY Folic Acid (Folic Acid), 1 MG PO DAILY Home O2 Therapy (Oxygen), 2 LITERS NA UD Insulin Isophan/Regular (Novolin 70/30), 75 UNITS SC QAM Insulin Isophan/Regular (Novolin 70/30), 85 UNITS SC QAM Isosorbide Mononitrate Ext Rel (Imdur Ext Rel), 30 MG PO DAILY Losartan Potassium (Losartan Potassium), 25 MG PO DAILY Metoprolol Tartrate (Metoprolol Tartrate), 50 MG PO BID Omeprazole (Prilosec), 20 MG PO QAM Torsemide (Torsemide), 10 MG PO DAILY Scheduled PRN Albuterol Hfa (Ventolin Hfa), 2 PUFFS INH Q4 PRN for Shortness of Breath Betamethasone Dip (Betamethasone Dipropionat), 1 APPLN TOP BID PRN for flares Clobetasol Propionate (Temovate), 1 APPLN TOP BID PRN for when flares Levalbuterol (Levalbuterol HCl), 3 ML NEB Q8 PRN for SOB/Wheezing Nitroglycerin (Nitrostat), 0.4 MG UT UD PRN for Chest Pain Tramadol (Ultram), 50 MG PO Q6 PRN for Pain Triamcinolone Acet (Aristocort 0.1%), 1 APPLN TOP BID PRN for flares Allergies Coded Allergies: Methylprednisolone (Unverified Adverse Reaction, Severe, AMS, 05/19/17) Prednisone (Unverified Adverse Reaction, Unknown, INCREASE BLOOD SUGAR, ) Physical Exam Vital Signs Date Time Temp Pulse Resp B/P (MAP) Pulse Ox O2 Delivery O2 Flow Rate FiO2 05/19/17 14:04 62 13 158/70 98 Nebulizer 7.0 05/19/17 13:22 64 05/19/17 13:20 37.0 65 18 153/67 95 Room Air 05/19/17 13:20 97 Room Air 05/19/17 13:20 94 Room Air Physical Exam GENERAL: Awake, obese, alert, well-appearing, NAD HENT: Normocephalic, atraumatic. EYES: Normal conjunctiva. Sclera non-icteric. NECK: Supple. No nuchal rigidity. FROM. RESPIRATORY: CTAB, no rhonchi, no crackles, No respiratory distress. No tachypnea, diffuse expiratory wheezing is present with a prolonged expiratory phase. CARDIAC: RRR, no MRG ABDOMEN: Soft, Obese, NTND, BS+ MSK: No chest wall TTP, 1+ pitting LE edema NEURO: GCS 15, CN 2-12 intact, moves all 4s on command SKIN: No rash or jaundice noted. Medical Decision & Procedures ER Provider Diagnostic Interpretation: Radiology results as stated below per my review and radiologist interpretation: CHEST ONE VIEW PORTABLE CLINICAL HISTORY: EVALUATE RESPIRATORY DISTRESS.DYSPNEA COMPARISON STUDY: Chest radiograph March 31, 2017. FINDINGS: A left subclavian [id number] is in place. There are median sternotomy wires and clips from bypass grafting. No pneumothorax or pleural effusion is noted. There is no evidence for pulmonary edema. Enlargement of the cardiac silhouette is unchanged. IMPRESSION: No acute cardiopulmonary findings. Electronically signed by: Vitaly Tadeo M.D. 05/19/2017 2:00 PM Dictated Date/Time: 05/19/2017 2:00 PM Laboratory Results 05/19/17 14:00 Red Blood Count 3.96, Mean Corpuscular Volume 89.4, Mean Corpuscular Hemoglobin 29.8, Mean Corpuscular Hemoglobin Concent 33.3, Mean Platelet Volume 9.2, Neutrophils (%) (Auto) 72.2, Lymphocytes (%) (Auto) 19.8, Monocytes (%) (Auto) 3.3, Eosinophils (%) (Auto) 3.9, Basophils (%) (Auto) 0.4, Neutrophils # (Auto) 3.91, Lymphocytes # (Auto) 1.07, Monocytes # (Auto) 0.18, Eosinophils # (Auto) 0.21, Basophils # (Auto) 0.02 05/19/17 14:00 Test 05/19/17 14:00 White Blood Count 5.41 K/uL (4.8-10.8) Red Blood Count 3.96 M/uL (4.7-6.1) Hemoglobin 11.8 g/dL (14.0-18.0) Hematocrit 35.4 % (42-52) Mean Corpuscular Volume 89.4 fL (80-100) Mean Corpuscular Hemoglobin 29.8 pg (25-34) Mean Corpuscular Hemoglobin Concent 33.3 g/dl (32-36) Platelet Count 172 K/uL (130-400) Mean Platelet Volume 9.2 fL (7.4-10.4) Neutrophils (%) (Auto) 72.2 % Lymphocytes (%) (Auto) 19.8 % Monocytes (%) (Auto) 3.3 % Eosinophils (%) (Auto) 3.9 % Basophils (%) (Auto) 0.4 % Neutrophils # (Auto) 3.91 K/uL (1.4-6.5) Lymphocytes # (Auto) 1.07 K/uL (1.2-3.4) Monocytes # (Auto) 0.18 K/uL (0.11-0.59) Eosinophils # (Auto) 0.21 K/uL (0-0.5) Basophils # (Auto) 0.02 K/uL (0-0.2) RDW Standard Deviation 44.6 fL (36.4-46.3) RDW Coefficient of Variation 13.5 % (11.5-14.5) Immature Granulocyte % (Auto) 0.4 % Immature Granulocyte # (Auto) 0.02 K/uL (0.00-0.02) Prothrombin Time 10.7 SECONDS (9.0-12.0) Prothromb Time International Ratio 1.0 (0.9-1.1) Activated Partial Thromboplast Time 27.6 SECONDS (21.0-31.0) Partial Thromboplastin Ratio 1.1 Anion Gap 7.0 mmol/L (3-11) Est Creatinine Clear Calc Drug Dose 29.9 ml/min Estimated GFR () 27.5 Estimated GFR (Non- 23.7 BUN/Creatinine Ratio 11.4 (10-20) Calcium Level 8.5 mg/dl (8.5-10.1) Troponin I < 0.015 ng/ml (0-0.045) Pro-B-Type Natriuretic Peptide 518 pg/ml (0-900) Laboratory results reviewed by me Medications Administered Medications (Trade) Dose Ordered Sig/Camelia Route Start Time Stop Time Status Last Admin Dose Admin Albuterol/ Ipratropium (Duoneb) 3 ml NOW STAT INH 05/19/17 13:44 05/19/17 13:46 DC 05/19/17 14:11 3 ML Dextrose (Dextrose 50% 50ML Syringe) 50 ml NOW ONCE IV 05/19/17 15:00 05/19/17 15:01 DC 05/19/17 15:01 50 ML ECG Per My Interpretation Indication: SOB/dyspnea Rate (beats per minute): 63 Rhythm: sinus rhythm Findings: 1st degree AV block, T-wave inversion (Single in V2) Comparison ECG Date: 03/31/2017 Change: no significant change ED Course 1335: The patient was evaluated in room A11B. A complete history and physical exam was performed. 1344: Ordered Solu-Medrol 125 mg IV, Duoneb 3 mL INH. 1500: Ordered Dextrose 50 mL IV. 1612: I reevaluated the patient. Discussed results and discharge instructions: he verbalized understanding and agreement. The patient is ready for discharge. Medical Decision The patient is a 76 year old white male with a past medical history of altered mental state, CKD (chronic kidney disease), stage III, coronary artery disease, mesenteric atherosclerosis, HLD (hyperlipidemia), SNOW (iron deficiency anemia) , IDDM (insulin dependent diabetes mellitus), prostate cancer, psoriatic arthritis, sleep apnea, TIA (transient ischemic attack) who presents to the Emergency Room with complaints of worsening breathing difficulties, that he has been experiencing for the past week. Differential diagnosis: Etiologies such as infections, reactive airway disease, pneumonia, pneumothorax , COPD, CHF, cardiac ischemia, pulmonary embolism, musculoskeletal, gastrointestinal, as well as others were entertained. Patient was seen and evaluated the bedside. Patient was referred as he had a low blood glucose and he was having some difficulty with breathing. Patient does have a known history of COPD. Patient is a former smoker but has not smoked in approximately 20 years. On exam the patient does have expiratory wheezing and prolonged respiratory phase. Patient's repeat blood sugar was in the 50s. Patient was given an amp of dextrose as well as a meal tray. Patient did have blood work completed, EKG, chest x-ray. Patient's EKG is unremarkable. Chest x-ray is clear. White blood cell count is normal the patient is a chronic but stable anemia. Patient does have baseline CKD and is fairly unchanged from priors. Upon reassessment the patient was feeling and sounding improved. Patient's repeat blood sugar was greater than 100. Patient was told to resume his insulin regimen prior to it being changed in order to help avoid his low blood glucose. Patient was also told to make sure that he had easy access to simple sugars like glucose tabs as needed. Patient was told to follow-up with his PCP and/or yard specialist for further treatment. Patient does have a stable COPD exacerbation was told to resume his nebulizers. Patient had quit he describes as a likely delirium related to the steroids and declined use of them. Given that the patient has recently been on a Z-Kei will not restart any antibiotics at this time. Patient was given strict follow- up, discharge, and return precautions. All questions were answered. Patient was deemed suitable for outpatient follow-up at this time. Patient agreed with the plan of care and was safely discharged home. Medication Reconcilliation Current Medication List: was personally reviewed by me Blood Pressure Screening Patient's blood pressure: Elevated blood pressure Blood pressure disposition: Referred to PCP Impression Primary Impression: COPD (chronic obstructive pulmonary disease) Additional Impressions: Hypoglycemia Anemia CKD (chronic kidney disease) Scribe Attestation The scribe's documentation has been prepared under my direction and personally reviewed by me in its entirety. I confirm that the note above accurately reflects all work, treatment, procedures, and medical decision making performed by me. Departure Information Dispostion Home / Self-Care Referrals Levy Stout M.D. (PCP) Patient Instructions COPD Dc, COPD Inhalers, Hypoglycemia, [facility] Additional Instructions Please return to the emergency department if you have worsening or recurrent symptoms not amenable to at-home treatment. Please call for a follow-up appointment with her primary care physician. Please take your medications as prescribed. If you have other concerns and/or complaints please feel free to also call your primary care physician's office or return the ED for further evaluation, management, and treatment. Please resume your insulin regimen prior to the change to help avoid low blood sugar. Please make sure that you have simple sugars like glucose tabs on you in case you have low blood sugar. Please make sure to continue to check his sugars. Please use your inhalers and/or nebulizers as prescribed. Take your medications as prescribed. You have been examined and treated today on an emergency basis only. This is not a substitute for, or an effort to provide, complete comprehensive medical care. It is impossible to recognize and treat all injuries or illnesses in a single emergency department visit. It is therefore important that you follow up closely with [facility], your PCP, and/or your specialist(s). Call as soon as possible for an appointment. Thank you for your time and consideration. I look forward to speaking with you again soon. Please don't hesitate to call us if you have any questions. Problem Qualifiers Primary Impression: COPD (chronic obstructive pulmonary disease) COPD type: emphysema Emphysema type: unspecified Qualified Codes: J43.9 - Emphysema, unspecified Additional Impressions: Anemia Anemia type: unspecified type Qualified Codes: D64.9 - Anemia, unspecified CKD (chronic kidney disease) Chronic kidney disease stage: stage 4 (severe) Qualified Codes: N18.4 - Chronic kidney disease, stage 4 (severe)
[2017-05-19 16:49] VITALS: BP 127/83; PULSE 70; O2SAT 98
== END 2017-05-19 16:50 | disposition home or self-care (01) ==
LOC: EDBD 13:09 → C.EDA 13:10
DX: J44.1 Chronic obstructive pulmonary disease with (acute) exacerbation (principal); E11.649 Type 2 diabetes mellitus with hypoglycemia without coma; D63.1 Anemia in chronic kidney disease; N18.3 Chronic kidney disease, stage 3 (moderate); R03.0 Elevated blood-pressure reading, without diagnosis of hypertension; E11.22 Type 2 diabetes mellitus with diabetic chronic kidney disease; E78.5 Hyperlipidemia, unspecified; I25.10 Atherosclerotic heart disease of native coronary artery without angina pectoris; Z87.891 Personal history of nicotine dependence; Z79.82 Long term (current) use of aspirin; Z99.81 Dependence on supplemental oxygen; Z79.4 Long term (current) use of insulin; Z88.8 Allergy status to other drugs, medicaments and biological substances; Z82.49 Family history of ischemic heart disease and other diseases of the circulatory system; Z83.2 Family history of diseases of the blood and blood-forming organs and certain disorders involving the immune mechanism

== ENCOUNTER 2019-10-13 20:46 | Observation (INO) ==
--- NOTE | 2019-10-13 21:08 | Emergency Department Note ---
History of Present Illness General Chief complaint: Chest Pain Stated complaint: cp/sob Time Seen by Provider: 10/13/19 20:52 Source: patient History of Present Illness Provider complaint: Chest pain Onset (ago): day(s) Location: chest Radiation: other (Radiates to right chest when taking deep breaths) Severity: mild Pain Consistency: + now resolved Quality: + other (" Pain") Relieved By: + none Associated symptoms: + cough (Mild cough) and + shortness of breath; no fever/chills and no nausea/vomiting This is a 79-year-old male with history of COPD and CHF presenting with chest pain and shortness of breath since yesterday. He states he has had intermittent chest pain all day yesterday and a little bit today. It is now resolved. Is located in the left chest without radiation to his arms or neck. He states when he takes a deep breath that sometimes radiates to his right chest. It is associ ated with some shortness of breath. He cannot describe the pain. He denies any fever, vomiting, abdominal pain, diarrhea, urinary symptoms or known exposure COVID-19. Home Medications Home Medications Medication Instructions Recorded Confirmed Type [place]-3 Fish Oil 2 cap PO QAM 11/13/17 10/13/19 History Tresiba FlexTouch U-200 100 unit SUBCUT QAM 11/13/17 10/13/19 History aspirin [Aspir-81] 81 mg PO QAM 11/13/17 10/13/19 History atorvastatin 80 mg PO QPM 11/13/17 10/13/19 History fluticasone propionate [Flonase 2 spray INTRANASAL DAILY 11/13/17 10/13/19 History Allergy Relief] insulin aspart U-100 [Novolog 0 unit SUBCUT TID #0 11/13/17 10/13/19 History Flexpen U-100 Insulin] losartan 25 mg PO DAILY 11/13/17 10/13/19 History metoprolol tartrate 50 mg PO BID 11/13/17 10/13/19 History nitroglycerin [Nitrostat] 0.4 mg SUBLINGUAL UD PRN 11/13/17 10/13/19 History omeprazole 20 mg PO QAM 11/13/17 10/13/19 History Enbrel SureClick 1 dose SUBCUT WK 04/10/18 10/13/19 History furosemide [Lasix] 80 mg PO QAM 04/20/18 10/13/19 History probenecid 500 mg PO BID 05/29/19 10/13/19 History cyclosporine [Restasis] 1 drp OPB Q12 10/13/19 10/13/19 History liraglutide [Victoza 3-Kei] 1.2 mg SUBCUT DAILY 10/13/19 10/13/19 History Allergies Allergy/AdvReac Type Severity Reaction Status Date / Time hydromorphone [From Dilaudid] AdvReac Severe Nausea Verified 10/13/19 22:52 methylprednisolone AdvReac Severe AMS Verified 10/13/19 22:52 prednisone AdvReac Unknown INCREASE Verified 10/13/19 22:52 BLOOD SUGAR Past Med/Surg History Medical History Anemia CHF (congestive heart failure) Chronic obstructive pulmonary disease Diabetes Diabetes mellitus, type 2 Diverticular disease GERD (gastroesophageal reflux disease) History of colon polyps Hyperlipidemia Hypertension Obesity On home oxygen therapy 2L N/C prn SOB Osteoarthritis Prostate cancer radiation seeds Psoriasis Shortness of breath on exertion oxygen 2L n/c prn Sleep apnea cpap--no oxygen Stage 4 chronic kidney disease Surgical History History of cardiac cath had 4 total--last [address] @ [facility] History of colonoscopy History of esophagogastroduodenoscopy (EGD) History of heart artery stent x6 stents total History of prostate biopsy malignant History of tooth extraction S/P CABG x 3 2008 @ [facility]---follows with Dr. 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 and A total of 10 systems reviewed and were otherwise negative Physical Exam Vital Signs Vital Signs - 24 hr 10/13/19 20:52 10/13/19 21:01 10/13/19 21:31 Temperature 36.8 C Temperature Source Oral Pulse Rate 56 L 60 54 L Pulse Rate from SpO2 Sensor 57 L 55 L Pulse Strength Normal Respiratory Rate 20 14 19 Respiratory Effort / Characteristics Short of Breath Respiratory Depth Normal Respiratory Pattern Regular Blood Pressure 115/47 L 122/52 L 120/40 L Blood Pressure Mean 69 83 67 Blood Pressure Position Lying Pulse Oximetry 95 95 96 Oxygen Delivery Method Room Air Oxygen Flow Rate Sepsis Recent Fever Within 48 Hours No Sepsis New/Unexplained Change in Mental Status No Sepsis Action Taken by Nursing No Action Required 10/13/19 23:12 Temperature 37.1 C Temperature Source Oral Pulse Rate 55 L Pulse Rate from SpO2 Sensor Pulse Strength Normal Respiratory Rate 18 Respiratory Effort / Characteristics Respiratory Depth Respiratory Pattern Blood Pressure 129/36 L Blood Pressure Mean 67 Blood Pressure Position Lying Pulse Oximetry 100 Oxygen Delivery Method Oxygen Flow Rate 2 Sepsis Recent Fever Within 48 Hours Sepsis New/Unexplained Change in Mental Status Sepsis Action Taken by Nursing Constitutional: Vital signs reviewed. Eyes: Pupils are equal round reactive to light. Conjunctiva are noninjected. ENT: Pharynx is clear without erythema or exudate. Mucous membranes are moist. Neck supple without meningeal signs. Respiratory: Clear to auscultation bilaterally. Breath sounds are equal bilaterally. Cardiovascular: Regularly irregular rhythm. Bradycardic. No rubs or gallops. GI: Soft, nondistended and nontender. Bowel sounds are present. Musculoskeletal: No peripheral edema. No lower extremity tenderness. Integumentary: No cyanosis. or jaundice. Neurological: The patient is awake and alert. No focal deficits. Psychiatric: Normal affect. Not anxious appearing. Course Administered Medications Sodium Chloride (Nss) 250 mls @ 15 mls/hr IV .[id number] PRN PRN Reason: For Transfusion Stop: 10/14/19 07:42 Last Admin: 10/13/19 23:19 Dose: 15 mls/hr Documented by: [id number] Discontinued Medications Pantoprazole Sodium 80 mg/ (Dextrose) 120 mls @ 400 mls/hr IV NOW STA Stop: 10/13/19 23:08 Last Admin: 10/13/19 23:19 Dose: 400 mls/hr Documented by: [id number] Critical Care Time Critical Care Time: Yes Total Critical Care Time: 35 I have personally spent approximately 35 minutes of critical care time in the direct management of this patient. This includes bedside care, interpretation of diagnostic studies, and testing, discussion with consultants, patient, and family members, and other required patient management activities. These minutes are in excess of all separately billable procedures. Medical Decision Making Differential Diagnosis Unstable angina, AL, pleurisy, GERD, pneumonia Medical Records Attestation: I reviewed the patient's medical records. The patient was seen here for chest pain and shortness of breath in May of this year. He was diagnosed with hypoxia and acute on chronic kidney disease. He was discharged home after ED evaluation. Home Medications Current Medication List: was personally reviewed by me Laboratory Data Attestation: I reviewed the patient's lab results. Result diagrams: 10/13/19 21:15 10/13/19 21:15 Lab Results 10/13/19 10/13/19 10/13/19 Range/Units 21:15 21:15 21:15 WBC 10.93 H (4.8-10.8) K/uL RBC 3.01 L (4.7-6.1) M/uL Hgb 7.6 L (14.0-18.0) g/dL Hct 25.6 L (42-52) % MCV 85.0 (80-100) fL MCH 25.2 (25-34) pg MCHC 29.7 L (32-36) g/dL RDW Std Deviation 59.8 H (36.4-46.3) fL RDW Coeff of Joey 19.1 H (11.5-14.5) % Plt Count 291 (130-400) K/uL MPV 8.5 (7.4-10.4) fL Immature Gran % (Auto) 0.2 % Neut % (Auto) 79.9 % Lymph % (Auto) 13.9 % [place] % (Auto) 3.8 % Eos % (Auto) 1.8 % Baso % (Auto) 0.4 % Neut # (Auto) 8.74 H (1.4-6.5) K/uL Lymph # (Auto) 1.52 (1.2-3.4) K/uL [place] # (Auto) 0.41 (0.11-0.59) K/uL Eos # (Auto) 0.20 (0-0.5) K/uL Baso # (Auto) 0.04 (0-0.2) K/uL Immature Gran # (Auto) 0.02 (0.00-0.02) K/uL RBC Morphology Unremarkable PT 10.9 (9.0-12.0) Seconds INR 1.0 (0.9-1.1) APTT 36.2 H (21.0-31.0) Seconds PTT Ratio 1.3 Sodium 140 (136-145) mmol/L Potassium 3.8 (3.5-5.1) mmol/L Chloride 107 (98-107) mmol/L Carbon Dioxide 28 (21-32) mmol/L Anion Gap 5.0 (3-11) BUN 24 H (7-18) mg/dl Creatinine 1.95 H (0.6-1.4) mg/dl Est Cr Clr Drug Dosing 38.6 ml/min Est GFR ( Amer) 37.4 Est GFR (Non-Af Amer) 32.2 BUN/Creatinine Ratio 12.4 (10-20) Glucose 169 H (70-99) mg/dl POC Glucose (70-99) mg/dl Calcium 7.9 L (8.5-10.1) mg/dl Magnesium 1.9 (1.8-2.4) mg/dl Total Bilirubin 0.3 (0.2-1) mg/dl AST 11 L (15-37) U/L ALT 15 (12-78) U/L Alkaline Phosphatase 102 (45-117) U/L Troponin I < 0.015 (0-0.045) ng/ml Total Protein 6.6 (6.4-8.2) gm/dl Albumin 2.5 L (3.4-5.0) gm/dl Globulin 4.1 H (2.5-4.0) gm/dl Albumin/Globulin Ratio 0.6 L (0.9-2) TSH 1.510 (0.300-4.500) uIu/ml Blood Type Antibody Screen Crossmatch 10/13/19 10/13/19 Range/Units 21:55 22:59 WBC (4.8-10.8) K/uL RBC (4.7-6.1) M/uL Hgb (14.0-18.0) g/dL Hct (42-52) % MCV (80-100) fL MCH (25-34) pg MCHC (32-36) g/dL RDW Std Deviation (36.4-46.3) fL RDW Coeff of Joey (11.5-14.5) % Plt Count (130-400) K/uL MPV (7.4-10.4) fL Immature Gran % (Auto) % Neut % (Auto) % Lymph % (Auto) % [place] % (Auto) % Eos % (Auto) % Baso % (Auto) % Neut # (Auto) (1.4-6.5) K/uL Lymph # (Auto) (1.2-3.4) K/uL [place] # (Auto) (0.11-0.59) K/uL Eos # (Auto) (0-0.5) K/uL Baso # (Auto) (0-0.2) K/uL Immature Gran # (Auto) (0.00-0.02) K/uL RBC Morphology PT (9.0-12.0) Seconds INR (0.9-1.1) APTT (21.0-31.0) Seconds PTT Ratio Sodium (136-145) mmol/L Potassium (3.5-5.1) mmol/L Chloride (98-107) mmol/L Carbon Dioxide (21-32) mmol/L Anion Gap (3-11) BUN (7-18) mg/dl Creatinine (0.6-1.4) mg/dl Est Cr Clr Drug Dosing ml/min Est GFR ( Amer) Est GFR (Non-Af Amer) BUN/Creatinine Ratio (10-20) Glucose (70-99) mg/dl POC Glucose 151 H (70-99) mg/dl Calcium (8.5-10.1) mg/dl Magnesium (1.8-2.4) mg/dl Total Bilirubin (0.2-1) mg/dl AST (15-37) U/L ALT (12-78) U/L Alkaline Phosphatase (45-117) U/L Troponin I (0-0.045) ng/ml Total Protein (6.4-8.2) gm/dl Albumin (3.4-5.0) gm/dl Globulin (2.5-4.0) gm/dl Albumin/Globulin Ratio (0.9-2) TSH (0.300-4.500) uIu/ml Blood Type A Positive Antibody Screen NEGATIVE Crossmatch See Detail Imaging Data Radiologist's Impression: SINGLE VIEW CHEST CLINICAL HISTORY: Atypical chest pain. FINDINGS: An AP, portable, upright chest radiograph is compared to study dated 05/07/2018. The examination is degraded by portable technique and apical lordotic positioning. A left subclavian central venous infusion port is unchanged in position. The patient is status post midline sternotomy. The heart is enlarged noting atherosclerotic calcification of the thoracic aorta. The pulmonary vasculature is noncongested. Mild atelectasis is noted at the lung bases. No airspace consolidation or large pleural effusion is identified. No pneumothorax is seen. The skeletal structures are osteopenic. The bony thorax is grossly intact. IMPRESSION: Cardiomegaly with no acute cardiopulmonary abnormality. ACT 112: Negative or not required by law. Electronically signed by: Jose Rasmussen M.D. 10/13/2019 9:22 PM Dictated: 10/13/[id number] Transcribed: 10/13/192118 ECG Data Attestation: I personally reviewed and interpreted this ECG as follows: Indication: + chest pain Rate (beats per minute): 61 Rhythm: + normal sinus ECG Intervals/blocks: + Mobitz Type I ECG ST segments: no ST elevation ECG Findings: no PVCs Blood Pressure Blood Pressure Findings: Elevated blood pressure Blood Pressure Disposition: Referred to patients primary care provider [facility] Narrative I did evaluate the patient as noted above. His port was accessed. I did place an order for continuous cardiac monitoring. The monitor showed sinus bradycardia with a Mobitz type I heart block; heart rate is 58. I did order and personally review the patient's 12-lead EKG as described above. He has a Mobitz type I heart block. No acute ischemia is noted. I did order and personally reviewed the images of the patient's chest x-ray as described above. There is no evidence of pulmonary edema or acute infiltrate. I did order and review the patient's blood work as noted in the electronic medical record. He has a hemoglobin of 7.6. Given his chest pain and shortness of breath I did feel it was prudent to transfuse the patient. I did obtain informed consent from the patient. I did order 2 units of typed and crossmatched blood for transfusion. The patient's creatinine is 1.9 which is at his baseline. His troponin is negative. He has mild hypocalcemia as well. I did reassess the patient several times. He remained hemodynamically stable. He remained in sinus bradycardia with a Mobitz type I heart block. I did discuss the case with the hospitalist and welfare case worker. Impression & Plan Chest pain, Atrioventricular block, Mobitz type 1, Wenckebach, Severe anemia, Hypocalcemia Discharge Plan Visit Data Chief Complaint: Chest Pain Stated Complaint: cp/sob ED Provider: Gareth Wilburn Discharge Problem: Chest pain, Atrioventricular block, Mobitz type 1, Wenckebach, Severe anemia, H ypocalcemia Patient Disposition: Being Evaluated by Hospitalist Forms Stand Alone Forms: My [facility] Prescriptions Prescriptions: No Action Enbrel SureClick 50 mg/mL (0.98 mL) Pen Injector 1 dose subcut WK RF: 0 furosemide [Lasix] 80 mg Tablet 80 mg PO QAM RF: 0 Tresiba FlexTouch U-200 200 unit/mL (3 mL) Insulin Pen 100 unit SUBCUT QAM RF: 0 insulin aspart U-100 [Novolog Flexpen U-100 Insulin] 100 unit/mL (3 mL) Insulin Pen 0 unit SUBCUT TID Qty: 0 RF: 0 losartan 25 mg Tablet 25 mg PO DAILY RF: 0 metoprolol tartrate 50 mg Tablet 50 mg PO BID RF: 0 omeprazole 20 mg Tablet,Delayed Release (Dr/Ec) 20 mg PO QAM RF: 0 atorvastatin 80 mg Tablet 80 mg PO QPM RF: 0 [place]-3 Fish Oil 300-1,000 mg Capsule 2 cap PO QAM RF: 0 nitroglycerin [Nitrostat] 0.4 mg Tablet, Sublingual 0.4 mg Sublingual UD PRN (Reason: Chest Pain) RF: 0 fluticasone propionate [Flonase Allergy Relief] 50 mcg/actuation [place],Suspension 2 spray INTRANASAL DAILY RF: 0 aspirin [Aspir-81] 81 mg Tablet,Delayed Release (Dr/Ec) 81 mg PO QAM RF: 0 probenecid 500 mg tablet 500 mg PO BID RF: 0 Restasis 0.05 % dropperette 1 drp OPB Q12 RF: 0 Victoza 3-Kei 0.6 mg/0.1 mL (18 mg/3 mL) pen injector 1.2 mg SUBCUT DAILY RF: 0 Referrals Referrals: Levy Stout MD [Primary Care Provider] - Discharge Problem: Chest pain Qualifiers: Chest pain type: unspecified Qualified Code(s): R07.9 - Chest pain, unspecified
--- NOTE | 2019-10-13 21:23 | XRay Report ---
SINGLE VIEW CHEST CLINICAL HISTORY: Atypical chest pain. FINDINGS: An AP, portable, upright chest radiograph is compared to study dated 05/07/2018. The examina tion is degraded by portable technique and apical lordotic positioning. A left subclavian central selvin ous infusion port is unchanged in position. The patient is status post midline sternotomy. The heart is enlarged noting atherosclerotic calcification of the thoracic aorta. The pulmonary vasculature is noncongested. Mild atelectasis is noted at the lung bases. No airspace consolidation or large pleural effusion is identified. No pneumothorax is seen. The skeletal structures are osteopenic. The bony th orax is grossly intact. IMPRESSION: Cardiomegaly with no acute cardiopulmonary abnormality. ACT 112: Negative or not required by law. Electronically signed by: Jose Rasmussen M.D. 10/13/2019 9:22 PM
[2019-10-13 21:31] LABS: Basophils # (auto) 0.04 K/uL (0-0.2); Basophils % (auto) 0.4 %; Eosinophils % (auto) 1.8 %; Hematocrit (blood only) 25.6 % (42-52); Hemoglobin 7.6 g/dL (14.0-18.0); Immature Granulocytes # (auto) 0.02 K/uL (0.00-0.02); Immature Granulocytes % (auto) 0.2 %; Lymphocytes # (auto) 1.52 K/uL (1.2-3.4); Lymphocytes % (auto) 13.9 %; Mean Corpuscular Hemoglobin 25.2 pg (25-34); Mean Corpuscular Hgb Conc 29.7 g/dL (32-36); Mean Platelet Volume 8.5 fL (7.4-10.4); Monocytes # (auto) 0.41 K/uL (0.11-0.59); Monocytes % (auto) 3.8 %; Neutrophils # (auto) 8.74 K/uL (1.4-6.5); Neutrophils % (auto) 79.9 %; Platelet Count 291 K/uL (130-400); RDW Coefficient of Variation 19.1 % (11.5-14.5); RDW Standard Deviation 59.8 fL (36.4-46.3); Red Blood Count 3.01 M/uL (4.7-6.1); White Blood Count 10.93 K/uL (4.8-10.8)
[2019-10-13 21:36] LABS: Partial Thromboplastin Ratio 1.3; Partial Thromboplastin Time 36.2 Seconds (21.0-31.0); Prothrombin Time 10.9 Seconds (9.0-12.0)
[2019-10-13 21:41] LABS: Alanine Aminotransferase 15 U/L (12-78); Albumin Level 2.5 gm/dl (3.4-5.0); Aspartate Aminotransferase 11 U/L (15-37); BUN Creatinine Ratio 12.4 (10-20); Blood Urea Nitrogen 24 mg/dl (7-18); Calcium 7.9 mg/dl (8.5-10.1); Carbon Dioxide 28 mmol/L (21-32); Chloride 107 mmol/L (98-107); Creatinine Clr Calc Pharmacy 38.6 ml/min; Est GFR (African American) 37.4; Est GFR (Non-African American) 32.2; Glucose 169 mg/dl (70-99); Magnesium 1.9 mg/dl (1.8-2.4); Potassium 3.8 mmol/L (3.5-5.1); Sodium 140 mmol/L (136-145)
[2019-10-13] MEDS ORDERED: SODIUM CHLORIDE 0.9% 250 ML IV PRN (21:42)
[2019-10-13 21:45] LABS: Albumin Globulin Ratio 0.6 (0.9-2); Alkaline Phosphatase 102 U/L (45-117); Bilirubin,Total 0.3 mg/dl (0.2-1); Globulin 4.1 gm/dl (2.5-4.0); Total Protein 6.6 gm/dl (6.4-8.2); Troponin I < 0.015 ng/ml (0-0.045)
--- NOTE | 2019-10-13 22:50 | History & Physical Report ---
Date of Service October 13, 2019 Assessment & Plan (1) Chest pain: Possible unstable angina secondary to symptomatic anemia hx CAD sp CABG, stent 2 AVB Mobitz type I Slow UGIB hx Henning's esophagus as per records on PPI hx colonic diverticulosis, polyps Progressive hemoglobin drop from baseline of 12 noted since February 2019. chronic diastolic HF as per records. Patient euvolemic hypertension, stable hyperlipidemia on statin Rx hx TIA as per records DM2 insulin requiring, well-controlled as of recent outpatient hemoglobin A1c of 6.18 August 2019 chronic respiratory failure secondary to COPD on home O2, KATHE on CPAP, past tobacco abuse Difficult intubation as per records CRI, creatinine better than baseline prostate cancer status post radiation psoriatic arthropathy as per records PCU Transfuse PRBC to maintain hemoglobin greater than 8 Trend troponin TTE, Cardiology consult RE cp, bradycardia Appropriate to hold home beta-marciano for now given bradyarrhythmia Atropine as needed for symptomatic bradycardia Appropriate to hold home aspirin for now given GI bleed IV PPI GI consult Re: UGIB Basal insulin adjusted for n.p.o. status after midnight, ISS BG goal [id number] DVT prophylaxis. SCDs RE U GIB Full code Text document was generated using [employer] voice recognition software. It may contain grammatical or spelling errors. Kindly contact undersigned for clarification of any documentation item in question. History of Present Illness Chief Complaint: Chest pain Primary Care Provider: Levy Stout MD History obtained from patient and records. Medical history significant for chronic diastolic HF as per records. CAD status post CABG sp stent, hypertension, hyperlipidemia, DM2 insulin requiring, hx TIA, chronic respiratory failure secondary to COPD on home O2, KATHE on CPAP, past tobacco abuse, CRI (baseline creatinine 2s), chronic anemia (baseline hemoglobin 12 from 2018) periodic outpatient Venofer injections, prostate cancer status post radiation, psoriatic arthropathy as per records, difficult intubation as per records, hx Henning's esophagus as per records, colonic diverticulosis/polyps Last confinement April 2018 for COPD exacerbation. Patient has been having dark stools for almost a year now without hematemesis, abdominal pain symptoms. No unusual weight loss or early satiety symptoms. Thinks he might have mentioned it to his doctors. Outpatient hemoglobin lab work this year as follows : 02/2019 11 06/2019 10 07/2019 8 09/27 8.3 10/11 7.7. Yesterday while receiving outpatient intravenous iron therapy at [facility], patient experienced midsternal chest discomfort with some shortness of breath somewhat pleuritic and going to his right side somewhat similar to heart attack in the past. No cough symptoms. Patient compliant with home medications. Some stress at home having to care for with dementia. As per patient he was instructed by Hematology staff to go to ER if with worsening discomfort. Patient consulted ER for chest discomfort, currently much improved. Medical History as above 2016 EGD was normal. 2019 colonoscopy showed polyps, diverticulosis, ascending colon lipoma SURGERIES: CABG, prostate biopsy. A port placement FAMILY HISTORY: Heart disease. Diabetes, stomach cancer PERSONAL AND SOCIAL HISTORY: Remote tobacco abuse. No chronic intake of alcoholic beverages. 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 Allergies Allergy/AdvReac Type Severity Reaction Status Date / Time hydromorphone [From Dilaudid] AdvReac Severe Nausea Verified 10/13/19 22:52 methylprednisolone AdvReac Severe AMS Verified 10/13/19 22:52 prednisone AdvReac Unknown INCREASE Verified 10/13/19 22:52 BLOOD SUGAR Home Medications Home Medications Medication Instructions Recorded Confirmed Type Keene-3 Fish Oil 2 cap PO QAM 11/13/17 10/13/19 History Tresiba FlexTouch U-200 100 unit SUBCUT QAM 11/13/17 10/13/19 History aspirin [Aspir-81] 81 mg PO QAM 11/13/17 10/13/19 History atorvastatin 80 mg PO QPM 11/13/17 10/13/19 History fluticasone propionate [Flonase 2 spray INTRANASAL DAILY 11/13/17 10/13/19 History Allergy Relief] insulin aspart U-100 [Novolog 0 unit SUBCUT TID #0 11/13/17 10/13/19 History Flexpen U-100 Insulin] losartan 25 mg PO DAILY 11/13/17 10/13/19 History metoprolol tartrate 50 mg PO BID 11/13/17 10/13/19 History nitroglycerin [Nitrostat] 0.4 mg SUBLINGUAL UD PRN 11/13/17 10/13/19 History omeprazole 20 mg PO QAM 11/13/17 10/13/19 History Enbrel SureClick 1 dose SUBCUT WK 04/10/18 10/13/19 History furosemide [Lasix] 80 mg PO QAM 04/20/18 10/13/19 History probenecid 500 mg PO BID 05/29/19 10/13/19 History cyclosporine [Restasis] 1 drp OPB Q12 10/13/19 10/13/19 History liraglutide [Victoza 3-Kei] 1.2 mg SUBCUT DAILY 10/13/19 10/13/19 History Past Med/Surg History Medical History Anemia CHF (congestive heart failure) Chronic obstructive pulmonary disease Diabetes Diabetes mellitus, type 2 Diverticular disease GERD (gastroesophageal reflux disease) History of colon polyps Hyperlipidemia Hypertension Obesity On home oxygen therapy 2L N/C prn SOB Osteoarthritis Prostate cancer radiation seeds Psoriasis Shortness of breath on exertion oxygen 2L n/c prn Sleep apnea cpap--no oxygen Stage 4 chronic kidney disease Surgical History History of cardiac cath had 4 total--last 2015 @ [facility] [place] History of colonoscopy History of esophagogastroduodenoscopy (EGD) History of heart artery stent x6 stents total History of prostate biopsy malignant History of tooth extraction S/P CABG x 3 2008 @ [facility]---follows with Dr. Rolon Status post LASIK surgery of both eyes Family History Other No family history of adverse response to anesthesia Social History Smoking Status: Former smoker Smoking End Date: 1997; Second Hand Exposure: Yes ( smoked); Hx Alcohol Use: No Hx Substance Use: No Preferred Language: Romansh Communication Ability: Effective Service Delivery Management Consultant Required: No Beliefs That Will Affect Care: None Current Living Situation: Spouse and Family Other Information That Helps Us Care for You: No Feels Safe at Home: Yes Safety Concerns: Feels Safe At This Time Review of Systems Review of Systems: As per HPI, all 10 systems reviewed, all other ROS negative Physical Exam Physical Exam: GENERAL: Comfortable, morbidly obese, pleasant, no respiratory distress SKIN: Pallor, warm HEENT: Pale palpebral conjunctivae, no ptosis, dry buccal mucosa, nasal cannula in place NECK : Supple, short neck, no tenderness CHEST : Decreased breath sounds, no tenderness HEART : Bradycardic, no obvious murmurs ABDOMEN: Some distention, nontender RECTAL : Intact sphincter, dark stool (FOBT positive) EXTREMITIES : Chronic LE swelling, no LE tenderness, no other conspicuous deformities noted NEUROLOGIC : Coherent, no facial asymmetry, no other gross focality Results & Data Results & Data ([facility]) Vital Signs (Past 12 Hours) Vital Signs Temp Pulse Resp BP Pulse Ox 10/13/19 21:31 54 L 19 120/40 L 96 10/13/19 21:01 60 14 122/52 L 95 10/13/19 20:52 36.8 C 56 L 20 115/47 L 95 Laboratory Results Laboratory Results WBC 10.93 K/uL (4.8-10.8) H 10/13/19 21:15 RBC 3.01 M/uL (4.7-6.1) L 10/13/19 21:15 Hgb 7.6 g/dL (14.0-18.0) L 10/13/19 21:15 Hct 25.6 % (42-52) L 10/13/19 21:15 MCV 85.0 fL (80-100) 10/13/19 21:15 MCH 25.2 pg (25-34) 10/13/19 21:15 MCHC 29.7 g/dL (32-36) L 10/13/19 21:15 RDW Std Deviation 59.8 fL (36.4-46.3) H 10/13/19 21:15 RDW Coeff of Joey 19.1 % (11.5-14.5) H 10/13/19 21:15 Plt Count 291 K/uL (130-400) 10/13/19 21:15 MPV 8.5 fL (7.4-10.4) 10/13/19 21:15 Immature Gran % (Auto) 0.2 % 10/13/19 21:15 Neut % (Auto) 79.9 % 10/13/19 21:15 Lymph % (Auto) 13.9 % 10/13/19 21:15 Norton % (Auto) 3.8 % 10/13/19 21:15 Eos % (Auto) 1.8 % 10/13/19 21:15 Baso % (Auto) 0.4 % 10/13/19 21:15 Neut # (Auto) 8.74 K/uL (1.4-6.5) H 10/13/19 21:15 Lymph # (Auto) 1.52 K/uL (1.2-3.4) 10/13/19 21:15 Norton # (Auto) 0.41 K/uL (0.11-0.59) 10/13/19 21:15 Eos # (Auto) 0.20 K/uL (0-0.5) 10/13/19 21:15 Baso # (Auto) 0.04 K/uL (0-0.2) 10/13/19 21:15 Immature Gran # (Auto) 0.02 K/uL (0.00-0.02) 10/13/19 21:15 PT 10.9 Seconds (9.0-12.0) 10/13/19 21:15 INR 1.0 (0.9-1.1) 10/13/19 21:15 APTT 36.2 Seconds (21.0-31.0) H 10/13/19 21:15 PTT Ratio 1.3 10/13/19 21:15 Sodium 140 mmol/L (136-145) 10/13/19 21:15 Potassium 3.8 mmol/L (3.5-5.1) 10/13/19 21:15 Chloride 107 mmol/L (98-107) 10/13/19 21:15 Carbon Dioxide 28 mmol/L (21-32) 10/13/19 21:15 Anion Gap 5.0 (3-11) 10/13/19 21:15 BUN 24 mg/dl (7-18) H 10/13/19 21:15 Creatinine 1.95 mg/dl (0.6-1.4) H 10/13/19 21:15 Est Cr Clr Drug Dosing 38.6 ml/min 10/13/19 21:15 Est GFR ( Amer) 37.4 10/13/19 21:15 Est GFR (Non-Af Amer) 32.2 10/13/19 21:15 BUN/Creatinine Ratio 12.4 (10-20) 10/13/19 21:15 Glucose 169 mg/dl (70-99) H 10/13/19 21:15 Calcium 7.9 mg/dl (8.5-10.1) L 10/13/19 21:15 Magnesium 1.9 mg/dl (1.8-2.4) 10/13/19 21:15 Total Bilirubin 0.3 mg/dl (0.2-1) 10/13/19 21:15 AST 11 U/L (15-37) L 10/13/19 21:15 ALT 15 U/L (12-78) 10/13/19 21:15 Alkaline Phosphatase 102 U/L (45-117) 10/13/19 21:15 Troponin I < 0.015 ng/ml (0-0.045) 10/13/19 21:15 Total Protein 6.6 gm/dl (6.4-8.2) 10/13/19 21:15 Albumin 2.5 gm/dl (3.4-5.0) L 10/13/19 21:15 Globulin 4.1 gm/dl (2.5-4.0) H 10/13/19 21:15 Albumin/Globulin Ratio 0.6 (0.9-2) L 10/13/19 21:15 TSH 1.510 uIu/ml (0.300-4.500) 10/13/19 21:15 Blood Type A Positive 10/13/19 21:55 Antibody Screen NEGATIVE 10/13/19 21:55 Crossmatch See Detail 10/13/19 21:55 Diagnostic Findings Chest x-ray : Cardiomegaly with no acute cardiopulmonary abnormality. EKG as per my interpretation : Rate 60, NSR, 2 AVB Mobitz type I, inferior infarct, T wave abnormalities inferior leads (1) Chest pain Chest pain type: unspecified Qualified Code(s): R07.9 - Chest pain, unspecified
[2019-10-13] MEDS ORDERED: PANTOprazole 80 MG in DEXTROSE 5% 100 ML IV STA (22:51)
[2019-10-13 23:24] LABS: RBC Morphology Unremarkable
[2019-10-14] MEDS ORDERED: GLUCOSE 40% GEL 15 GM TUBE PO PRN (00:44)
[2019-10-14] MEDS ORDERED: MoRPHine SULFATE 2 MG/ML CARP IV PRN (00:44)
[2019-10-14] MEDS ORDERED: PROMETHAZINE HCL 12.5 MG in SODIUM CHLORIDE 0.9% 50 ML IV PRN (00:44)
[2019-10-14] MEDS ORDERED: GLUCOSE 10 TABS/TUBE PO PRN (00:44)
[2019-10-14] MEDS ORDERED: TRAMADOL HCL 50 MG TABLET PO PRN (00:44)
[2019-10-14] MEDS ORDERED: CARBOHYDRATES FOR HYPOGLYCEMIA PO PRN (00:44)
[2019-10-14] MEDS ORDERED: INSULIN ASPART 100 UNITS/ML 3 ML PEN SC SCH ×2 (00:44→16:30)
[2019-10-14] MEDS ORDERED: GLUCAGON FOR INJ 1 MG VIAL SQ PRN (00:44)
[2019-10-14] MEDS ORDERED: ALBUT/IPRATROP 3MG/0.5MG NEB 3 ML VIAL NEB PRN (00:44)
[2019-10-14] MEDS ORDERED: NITROGLYCERIN SL 0.4 MG/TAB TAB SL PRN ×2 (00:44)
[2019-10-14] MEDS ORDERED: DEXTROSE 50% 50 ML SYRINGE IV PRN (00:44)
[2019-10-14] MEDS ORDERED: LACTATED RINGER'S 1,000 ML IV SCH (00:44)
[2019-10-14] MEDS ORDERED: ATROPINE SULFATE 0.1 MG/ML 10ML SYR IV PRN (03:02)
[2019-10-14] MEDS ORDERED: Nursing to Pharmacy Communication SCH ×2 (04:00→15:45)
[2019-10-14] MEDS: INSULIN ASPART 100 UNITS/ML 3 ML PEN SC SCH ×2 (06:22→13:02)
[2019-10-14 07:36] LABS: Basophils # (auto) 0.02 K/uL (0-0.2); Basophils % (auto) 0.2 %; Eosinophils # (auto) 0.26 K/uL (0-0.5); Eosinophils % (auto) 2.7 %; Hematocrit (blood only) 30.1 % (42-52); Hemoglobin 9.2 g/dL (14.0-18.0); Immature Granulocytes # (auto) 0.03 K/uL (0.00-0.02); Immature Granulocytes % (auto) 0.3 %; Lymphocytes # (auto) 1.59 K/uL (1.2-3.4); Lymphocytes % (auto) 16.7 %; Mean Corpuscular Hemoglobin 26.3 pg (25-34); Mean Corpuscular Hgb Conc 30.6 g/dL (32-36); Mean Platelet Volume 8.6 fL (7.4-10.4); Monocytes # (auto) 0.39 K/uL (0.11-0.59); Monocytes % (auto) 4.1 %; Neutrophils # (auto) 7.25 K/uL (1.4-6.5); Platelet Count 254 K/uL (130-400); RDW Standard Deviation 56.6 fL (36.4-46.3); White Blood Count 9.54 K/uL (4.8-10.8)
[2019-10-14 08:11] LABS: BUN Creatinine Ratio 13.1 (10-20); Blood Urea Nitrogen 26 mg/dl (7-18); Calcium 8.2 mg/dl (8.5-10.1); Carbon Dioxide 28 mmol/L (21-32); Chloride 107 mmol/L (98-107); Creatinine Clr Calc Pharmacy 36.9 ml/min; Est GFR (African American) 36.5; Est GFR (Non-African American) 31.5; Glucose 74 mg/dl (70-99); Potassium 3.8 mmol/L (3.5-5.1); Sodium 140 mmol/L (136-145)
[2019-10-14 08:15] LABS: Troponin I < 0.015 ng/ml (0-0.045)
[2019-10-14] MEDS: RESTASIS~ORDER AWAITING ACTION SCH ×2 (08:37→15:59)
[2019-10-14] MEDS ORDERED: FLUTICASONE PROPIONATE NA SPR 16 GM BTL SCH (09:00)
[2019-10-14] MEDS ORDERED: PANTOprazole 40 MG in SYRINGE 0 ML IV SCH (09:00)
[2019-10-14] MEDS ORDERED: INSULIN GLARGINE SOLOSTAR 100 UNITS/ML 3 ML PEN SC SCH (09:00)
[2019-10-14] MEDS ORDERED: LOSARTAN POTASSIUM 25 MG TAB PO SCH (09:00)
[2019-10-14] MEDS ORDERED: METOPROLOL TARTRATE 25 MG TAB PO SCH ×3 (09:00→21:00)
[2019-10-14] MEDS ORDERED: PROBENECID 500 MG TAB PO SCH (09:00)
--- NOTE | 2019-10-14 10:21 | Electrocardiogram Report ---
Test Reason : Blood Pressure : / mmHG Vent. Rate : 061 BPM Atrial Rate : 082 BPM P-R Int : 000 ms QRS Dur : 086 ms QT Int : 428 ms P-R-T Axes : 000 049 043 degrees QTc Int : 430 ms Sinus rhythm with 2nd degree A-V block (Mobitz I) Abnormal ECG When compared with ECG of 29-MAY-2019 10:17, Premature atrial complexes are no longer Present Sinus rhythm is now with 2nd degree A-V block (Mobitz I) Confirmed by Luis Blanc ([id number]) on 10/14/2019 10:20:58 AM Referred By: REFERRED SELF Confirmed By:Luis Blanc
--- NOTE | 2019-10-14 10:30 | Cardiology Consultation ---
Date of Consultation October 14, 2019 Assessment & Plan (1) Chest pain: (2) Severe anemia: (3) Atrioventricular block, Mobitz type 1, Wenckebach: (4) CKD (chronic kidney disease), stage III: (5) Hx of CABG: (6) Psoriatic arthritis: The patient from a cardiac standpoint is currently clinically stable. His cardiac markers are negative. He is feeling better since receiving a blood transfusion. He is noted to have Mobitz type I block on telemetry which generally is not felt to be due to high-grade heart block but I will reduce his metoprolol dose today. History of Present Illness Attending Physician: Nessa Hanna, DO History of Present Illness This is a 79-year-old male patient with a cardiac history as outlined below. He has had a chronic anemia for many years. In the medical record it is listed is an iron deficiency anemia but also due to chronic disease, including kidney disease. He receives Venofer infusions on a regular basis. Over the past several weeks he has not felt well with tiredness, fatigue and shortness of breath. He has had a progressive decline in his hemoglobin. Yesterday he went to have a vena fear infusion and complained of chest pain. He was referred to the hospital and upon arrival his hemoglobin was 7.2. He has since been transfused and feeling improvement. He may have a history of melanotic stools and a GI consult is pending. PAST MEDICAL HISTORY: 1.Coronary artery disease, status post coronary bypass grafting surgery x3 in 2008, along with multiple PCIs to the RCA and patent RCA stents with 2 patent grafts by cardiac catheterization August 2016. 2.Chronic respiratory failure, on home O2, improved. 3.Severe anemia requiring transfusion while on dual antiplatelet therapy. 4.Stage III-IV chronic kidney disease with a baseline creatinine around 2. 5.Elevated BMI. 6.COPD. 7.Obstructive sleep apnea, on nocturnal CPAP. 8.Diabetes. 9.Dyslipidemia. Allergies Allergy/AdvReac Type Severity Reaction Status Date / Time hydromorphone [From Dilaudid] AdvReac Severe Nausea Verified 10/13/19 22:52 methylprednisolone AdvReac Severe AMS Verified 10/13/19 22:52 prednisone AdvReac Unknown INCREASE Verified 10/13/19 22:52 BLOOD SUGAR Home Medications Home Medications Medication Instructions Recorded Confirmed Type [place]-3 Fish Oil 2 cap PO QAM 11/13/17 10/13/19 History Tresiba FlexTouch U-200 100 unit SUBCUT QAM 11/13/17 10/13/19 History aspirin [Aspir-81] 81 mg PO QAM 11/13/17 10/13/19 History atorvastatin 80 mg PO QPM 11/13/17 10/13/19 History fluticasone propionate [Flonase 2 spray INTRANASAL DAILY 11/13/17 10/13/19 History Allergy Relief] insulin aspart U-100 [Novolog 0 unit SUBCUT TID #0 11/13/17 10/13/19 History Flexpen U-100 Insulin] losartan 25 mg PO DAILY 11/13/17 10/13/19 History metoprolol tartrate 50 mg PO BID 11/13/17 10/13/19 History nitroglycerin [Nitrostat] 0.4 mg SUBLINGUAL UD PRN 11/13/17 10/13/19 History omeprazole 20 mg PO QAM 11/13/17 10/13/19 History Enbrel SureClick 1 dose SUBCUT WK 04/10/18 10/13/19 History furosemide [Lasix] 80 mg PO QAM 04/20/18 10/13/19 History probenecid 500 mg PO BID 05/29/19 10/13/19 History cyclosporine [Restasis] 1 drp OPB Q12 10/13/19 10/13/19 History liraglutide [Victoza 3-Kei] 1.2 mg SUBCUT DAILY 10/13/19 10/13/19 History Patient History Medical History Anemia CHF (congestive heart failure) Chronic obstructive pulmonary disease Diabetes Diabetes mellitus, type 2 Diverticular disease GERD (gastroesophageal reflux disease) History of colon polyps Hyperlipidemia Hypertension Obesity On home oxygen therapy 2L N/C prn SOB Osteoarthritis Prostate cancer radiation seeds Psoriasis Shortness of breath on exertion oxygen 2L n/c prn Sleep apnea cpap--no oxygen Stage 4 chronic kidney disease Surgical History History of cardiac cath had 4 total--last 2015 @ [facility] History of colonoscopy History of esophagogastroduodenoscopy (EGD) History of heart artery stent x6 stents total History of prostate biopsy malignant History of tooth extraction S/P CABG x 3 2009 @ [facility]---follows with Dr. Rolon Status post LASIK surgery of both eyes Family History Other No family history of adverse response to anesthesia Social History Smoking Status: Former smoker Smoking End Date: 1997; Second Hand Exposure: Yes ( smoked); Hx Alcohol Use: No Hx Substance Use: No Preferred Language: Tamazight Communication Ability: Effective Elevator Builder Required: No Beliefs That Will Affect Care: None Current Living Situation: Spouse and Family Other Information That Helps Us Care for You: No Feels Safe at Home: Yes Safety Concerns: Feels Safe At This Time Review of Systems Review of Systems: All systems reviewed & are unremarkable except as noted in HPI & below Nothing additional to add. Physical Exam Physical Exam: General: no acute distress and stated age Head: normocephalic, no masses, lesions, tenderness or abnormalities Eyes: conjunctiva are pink and non-injected, sclera clear Neck: supple, no adenopathy, no bruits, normal jugular venous pulse, no hepatojugular reflux Chest: normal shape and normal respiratory effort Lungs: clear to auscultation and percussion Cardiac Exam: - regular rate & rhythm, no murmurs gallops or rubs - normal S1, normal S2 Pulses: 2(+) throughout Abdomen: abdomen soft, non-tender, no abnormal masses and no hepatosplenomegaly Musculoskeletal: no gait disturbance, no joint inflammation, no deforming arthritis Extremities: no edema and no cyanosis Neuro: grossly normal exam Results & Data ([facility]) Vital Signs (Past 12 Hours) Vital Signs Temp Pulse Pulse Resp BP BP Pulse Ox 10/14/19 07:30 36.8 C 47 L 19 118/54 L 97 10/14/19 04:35 37.0 C 41 L 18 125/72 100 10/14/19 04:30 37.0 C 45 L 18 114/52 L 100 10/14/19 03:30 37.0 C 48 L 16 109/58 L 100 10/14/19 03:00 36.8 C 44 L 16 128/69 100 10/14/19 02:45 37 C 42 L 18 132/43 L 100 10/14/19 02:30 36.9 C 48 L 18 131/62 100 10/14/19 02:02 37 C 46 L 22 131/61 10/14/19 00:20 37 C 48 L 20 134/74 100 10/14/19 00:14 37 C 46 L 22 131/61 100 10/13/19 23:46 49 L 22 106/55 L 97 10/13/19 23:30 36.9 C 52 L 20 123/52 L 100 10/13/19 23:29 37.2 C 45 L 20 138/74 100 10/13/19 23:16 57 L 17 117/45 L 100 10/13/19 23:12 37.1 C 55 L 18 129/36 L 10/13/19 23:01 54 L 10 L 106/57 L 100 10/13/19 22:31 54 L 20 110/49 L 100 Laboratory Results Laboratory Results - last 24 hr 10/13/19 10/13/19 10/13/19 21:15 21:15 21:15 WBC 10.93 H RBC 3.01 L Hgb 7.6 L Hct 25.6 L MCV 85.0 MCH 25.2 MCHC 29.7 L RDW Std Deviation 59.8 H RDW Coeff of Joey 19.1 H Plt Count 291 MPV 8.5 Immature Gran % (Auto) 0.2 Neut % (Auto) 79.9 Lymph % (Auto) 13.9 [place] % (Auto) 3.8 Eos % (Auto) 1.8 Baso % (Auto) 0.4 Neut # (Auto) 8.74 H Lymph # (Auto) 1.52 [place] # (Auto) 0.41 Eos # (Auto) 0.20 Baso # (Auto) 0.04 Immature Gran # (Auto) 0.02 RBC Morphology Unremarkable PT 10.9 INR 1.0 APTT 36.2 H PTT Ratio 1.3 Sodium 140 Potassium 3.8 Chloride 107 Carbon Dioxide 28 Anion Gap 5.0 BUN 24 H Creatinine 1.95 H Est Cr Clr Drug Dosing 38.6 Est GFR ( Amer) 37.4 Est GFR (Non-Af Amer) 32.2 BUN/Creatinine Ratio 12.4 Glucose 169 H POC Glucose Calcium 7.9 L Magnesium 1.9 Total Bilirubin 0.3 AST 11 L ALT 15 Alkaline Phosphatase 102 Troponin I < 0.015 Total Protein 6.6 Albumin 2.5 L Globulin 4.1 H Albumin/Globulin Ratio 0.6 L TSH 1.510 Blood Type Antibody Screen Crossmatch 10/13/19 10/13/19 10/14/19 21:55 22:59 06:22 WBC RBC Hgb Hct MCV MCH MCHC RDW Std Deviation RDW Coeff of Joey Plt Count MPV Immature Gran % (Auto) Neut % (Auto) Lymph % (Auto) Rincon % (Auto) Eos % (Auto) Baso % (Auto) Neut # (Auto) Lymph # (Auto) R[place] # (Auto) Eos # (Auto) Baso # (Auto) Immature Gran # (Auto) RBC Morphology PT INR APTT PTT Ratio Sodium Potassium Chloride Carbon Dioxide Anion Gap BUN Creatinine Est Cr Clr Drug Dosing Est GFR ( Amer) Est GFR (Non-Af Amer) BUN/Creatinine Ratio Glucose POC Glucose 151 H 102 H Calcium Magnesium Total Bilirubin AST ALT Alkaline Phosphatase Troponin I Total Protein Albumin Globulin Albumin/Globulin Ratio TSH Blood Type A Positive Antibody Screen NEGATIVE Crossmatch See Detail 10/14/19 10/14/19 07:24 07:24 WBC 9.54 RBC 3.50 L Hgb 9.2 L Hct 30.1 L MCV 86.0 MCH 26.3 MCHC 30.6 L RDW Std Deviation 56.6 H RDW Coeff of Joey 18.0 H Plt Count 254 MPV 8.6 Immature Gran % (Auto) 0.3 Neut % (Auto) 76.0 Lymph % (Auto) 16.7 R[place] % (Auto) 4.1 Eos % (Auto) 2.7 Baso % (Auto) 0.2 Neut # (Auto) 7.25 H Lymph # (Auto) 1.59 [place] # (Auto) 0.39 Eos # (Auto) 0.26 Baso # (Auto) 0.02 Immature Gran # (Auto) 0.03 H RBC Morphology PT INR APTT PTT Ratio Sodium 140 Potassium 3.8 Chloride 107 Carbon Dioxide 28 Anion Gap 5.0 BUN 26 H Creatinine 1.99 H Est Cr Clr Drug Dosing 36.9 Est GFR ( Amer) 36.5 Est GFR (Non-Af Amer) 31.5 BUN/Creatinine Ratio 13.1 Glucose 74 POC Glucose Calcium 8.2 L Magnesium Total Bilirubin AST ALT Alkaline Phosphatase Troponin I < 0.015 Total Protein Albumin Globulin Albumin/Globulin Ratio TSH Blood Type Antibody Screen Crossmatch Medications Administered Current Inpatient Medications Albuterol (Albut/Ipratrop 3mg/0.5mg Neb 3 Ml Vial) 3 ml NEB Q2H PRN PRN Reason: Wheezing Stop: 11/13/19 00:43 Atorvastatin Calcium (Atorvastatin 40 Mg Tab) 80 mg PO QPM ELMER Stop: 11/13/19 20:59 Atropine Sulfate (Atropine Sulfate 0.1 Mg/Ml 10ml Syr) 0.5 mg IV Q3M PRN PRN Reason: symptomatic bradycardia Stop: 11/13/19 03:01 Dextrose (Dextrose 50% 50 Ml Syringe) 25 - 50 ml IV UD PRN; Protocol PRN Reason: Hypoglycemia Protocol Stop: 11/13/19 00:43 Fluticasone Propionate (Fluticasone Propionate Na Spr 16 Gm Btl) 2 sprays NA [facility] Stop: 11/13/19 08:59 Last Admin: 10/14/19 08:40 Dose: 2 sprays Documented by: Glucagon (Glucagon For Inj 1 Mg Vial) 1 mg SQ UD PRN; Protocol PRN Reason: Hypoglycemia Protocol Stop: 11/13/19 00:43 Glucose (Glucose 10 Tabs/Tube) 4 - 8 tabs PO UD PRN; Protocol PRN Reason: Hypoglycemia Protocol Stop: 11/13/19 00:43 Glucose (Glucose 40% Gel 15 Gm Tube) 15 - 30 gm PO UD PRN; Protocol PRN Reason: Hypoglycemia Protocol Stop: 11/13/19 00:43 Promethazine HCl 12.5 mg/ (Sodium Chloride) 50.5 mls @ 202 mls/hr IV Q6H PRN PRN Reason: Nausea And Vomiting Stop: 11/13/19 00:43 Lactated Ringer's (Lr) 1,000 mls @ 40 mls/hr IV .Q24H ELMER Stop: 11/13/19 00:43 Last Admin: 10/14/19 04:36 Dose: 40 mls/hr Documented by: Pantoprazole Sodium 40 mg/ (Syringe) 10 mls @ 5 mls/min IV BID ELMER Stop: 11/13/19 08:59 Last Admin: 10/14/19 08:37 Dose: 5 mls/min Documented by: Insulin Aspart (Insulin Aspart 100 Units/Ml 3 Ml Pen) 0 units SC Q6 ELMER Stop: 11/13/19 05:59 Last Admin: 08/30/20 06:22 Dose: Not Given Documented by: Insulin Glargine (Insulin Glargine Solostar 100 Units/Ml 3 Ml Pen) 10 units SC BID ELMER Stop: 11/13/19 08:59 Last Admin: 10/14/19 09:51 Dose: Not Given Documented by: Losartan Potassium (Losartan Potassium 25 Mg Tab) 25 mg PO DAILY ELMER Stop: 11/13/19 08:59 Last Admin: 10/14/19 08:38 Dose: 25 mg Documented by: Miscellaneous (Restasis~Order Awaiting Action) 1 ea N/A QS ELMER Stop: 11/13/19 07:59 Last Admin: 10/14/19 08:37 Dose: Not Given Documented by: Miscellaneous (Carbohydrates For Hypoglycemia ) 15 - 30 gm PO UD PRN PRN Reason: Hypoglycemia Protocol Stop: 11/13/19 00:43 Morphine Sulfate (Morphine Sulfate 2 Mg/Ml Carp) 2 mg IV Q4H PRN PRN Reason: Pain Stop: 10/28/19 00:43 Nitroglycerin (Nitroglycerin Sl 0.4 Mg/Tab Tab) 0.4 mg SL UD PRN PRN Reason: Chest Pain Stop: 11/13/19 00:43 Probenecid (Probenecid 500 Mg Tab) 500 mg PO BID [facility] Stop: 11/13/19 08:59 Last Admin: 10/14/19 08:39 Dose: 500 mg Documented by: Tramadol HCl (Tramadol Hcl 50 Mg Tablet) 25 - 50 mg PO Q4H PRN PRN Reason: Pain Stop: 11/13/19 00:43 (1) Chest pain Chest pain type: unspecified Qualified Code(s): R07.9 - Chest pain, unspecified
[2019-10-14 12:11] LABS: Hematocrit (blood only) 31.2 % (42-52); Hemoglobin 9.6 g/dL (14.0-18.0)
--- NOTE | 2019-10-14 13:40 | Hospitalist Progress Note ---
Date of Service October 14, 2019 Assessment & Plan (1) Severe anemia: History of Henning's esophagus, colonic diverticulosis, and polyps with chronic iron deficiency anemia on iron transfusions, last was given on 10/11. The next day he still felt symptoms of chest pain and shortness of breath so he presented to the ER per instruction. He was heme positive in stool, and H&H was 7.6/26. He was transfused 2 units of blood overnight and resulting H&H this morning was 9.6/31 with resolution of all symptoms. Seen by GI, who recommends PPI twice daily instead of once. (2) Chest pain: likely 2/2 symptomatic anemia, resolved now after blood transfusions. Serial trop enzymes were negative overnight. Echo was roughly normal. (3) Atrioventricular block, Mobitz type 1, Asya: Cardiology consulted and his Metoprolol was cut in half. No further cardiac workup was recommended. (4) CKD (chronic kidney disease), stage III: Improved from baseline. (5) Sleep apnea: cont CPAP (6) Psoriatic arthritis: cont Enbrel weekly per home regimen. (7) Coronary artery disease: h/o CABG. Stable, changes in metoprolol as above. Echo as above. Cont medical management with Lipitor, Cozaar, ASA 81mg daily, metoprolol. (8) Hx of CABG: plan as above. (9) IDDM (insulin dependent diabetes mellitus): Good control, cont current home regimen. (10) Morbid obesity: (11) Chronic respiratory failure: 2/2 COPD, cont chronic oxygen supplementation. No bronchospasm or wheezing. Stable. (12) DVT prophylaxis: SCDs/ambulation with chemoprophylaxis contraindicated in context of severe anemia and blood tranfusion. Full Code Dispo-to home this afternoon. Nessa Hanna DO [facility] Hospitalist Admission and Anticipated Discharge Date Admission Date: October 13, 2019 Subjective doing well today all symptoms of chest pain, sob and even his eyes all feel better He denies any overt bleeding from GI tract Asking for food. Review of Systems Review of Systems: All systems reviewed & are unremarkable except as noted in Subjective Physical Exam Physical Exam: CONSTITUTIONAL: obese, vitals as above, generally well- appearing EYES: normal conjunctivae, no scleral icterus ENT: external ear and nose normal, oropharynx clear, MMM RESPIRATORY: clear to auscultation bilaterally, no crackles, rales or wheezes, normal respiratory effort CARDIOVASCULAR: regular rate and rhythm, S1 and 2 heard without murmurs, gallops or rubs, no JVD, no peripheral edema GASTROINTESTINAL: normal bowel sounds, soft, nontender, protuberant but nondistended MUSCULOSKELETAL: strength 5/5 throughout, head is normocephalic and atraumatic SKIN: warm and dry NEUROLOGIC: No facial palsy, no dysarthria. CN 2-12 grossly intact, normal cognition, normal speech, no tremor, no gross focal neuro deficits. PSYCHIATRIC: alert cooperative and oriented to person, place and time. Results & Data Results & Data ([facility]) Vital Signs (Past 12 Hours) Vital Signs Temp Pulse Pulse Resp BP BP Pulse Ox 10/14/19 11:17 36.8 C 57 L 19 120/58 L 99 10/14/19 07:30 36.8 C 47 L 19 118/54 L 97 10/14/19 04:35 37.0 C 41 L 18 125/72 100 10/14/19 04:30 37.0 C 45 L 18 114/52 L 10/14/19 03:30 37.0 C 48 L 16 109/58 L 100 10/14/19 03:00 36.8 C 44 L 16 128/69 100 10/14/19 02:45 37 C 42 L 18 132/43 L 100 10/14/19 02:30 36.9 C 48 L 18 131/62 100 10/14/19 02:02 37 C 46 L 22 131/61 100 Laboratory Results Short CBC 10/13/19 10/14/19 10/14/19 Range/Units 21:15 07:24 11:54 WBC 10.93 H 9.54 (4.8-10.8) K/uL Hgb 7.6 L 9.2 L 9.6 L (14.0-18.0) g/dL Hct 25.6 L 30.1 L 31.2 L (42-52) % Plt Count 291 254 (130-400) K/uL BMP 10/13/19 10/14/19 21:15 07:24 Sodium 140 140 Potassium 3.8 3.8 Chloride 107 107 Carbon Dioxide 28 28 BUN 24 H 26 H Creatinine 1.95 H 1.99 H Glucose 169 H 74 Calcium 7.9 L 8.2 L Cardiac Enzymes 10/13/19 10/14/19 Range/Units 21:15 07:24 Troponin I < 0.015 < 0.015 (0-0.045) ng/ml Liver Function 10/13/19 Range/Units 21:15 Total Bilirubin 0.3 (0.2-1) mg/dl AST 11 L (15-37) U/L ALT 15 (12-78) U/L Alkaline Phosphatase 102 (45-117) U/L Albumin 2.5 L (3.4-5.0) gm/dl Diagnostic Findings SINGLE VIEW CHEST CLINICAL HISTORY: Atypical chest pain. FINDINGS: An AP, portable, upright chest radiograph is compared to study dated 05/07/2018. The examination is degraded by portable technique and apical lordotic positioning. A left subclavian central venous infusion port is unchanged in position. The patient is status post midline sternotomy. The heart is enlarged noting atherosclerotic calcification of the thoracic aorta. The pulmonary vasculature is noncongested. Mild atelectasis is noted at the lung bases. No airspace consolidation or large pleural effusion is identified. No pneumothorax is seen. The skeletal structures are osteopenic. The bony thorax is grossly intact. IMPRESSION: Cardiomegaly with no acute cardiopulmonary abnormality. Medications Administered Current Inpatient Medications Albuterol (Albut/Ipratrop 3mg/0.5mg Neb 3 Ml Vial) 3 ml NEB Q2H PRN PRN Reason: Wheezing Stop: 11/13/19 00:43 Atorvastatin Calcium (Atorvastatin 40 Mg Tab) 80 mg PO QPM [facility] Stop: 11/13/19 20:59 Atropine Sulfate (Atropine Sulfate 0.1 Mg/Ml 10ml Syr) 0.5 mg IV Q3M PRN PRN Reason: symptomatic bradycardia Stop: 11/13/19 03:01 Dextrose (Dextrose 50% 50 Ml Syringe) 25 - 50 ml IV UD PRN; Protocol PRN Reason: Hypoglycemia Protocol Stop: 11/13/19 00:43 Fluticasone Propionate (Fluticasone Propionate Na Spr 16 Gm Btl) 2 sprays NA DAILY [place]MER Stop: 11/13/19 08:59 Last Admin: 10/14/19 08:40 Dose: 2 sprays Documented by: Glucagon (Glucagon For Inj 1 Mg Vial) 1 mg SQ UD PRN; Protocol PRN Reason: Hypoglycemia Protocol Stop: 11/13/19 00:43 Glucose (Glucose 10 Tabs/Tube) 4 - 8 tabs PO UD PRN; Protocol PRN Reason: Hypoglycemia Protocol Stop: 11/13/19 00:43 Glucose (Glucose 40% Gel 15 Gm Tube) 15 - 30 gm PO UD PRN; Protocol PRN Reason: Hypoglycemia Protocol Stop: 11/13/19 00:43 Promethazine HCl 12.5 mg/ (Sodium Chloride) 50.5 mls @ 202 mls/hr IV Q6H PRN PRN Reason: Nausea And Vomiting Stop: 11/13/19 00:43 Lactated Ringer's (Lr) 1,000 mls @ 40 mls/hr IV .Q24H [place]MER Stop: 11/13/19 00:43 Last Admin: 10/14/19 04:36 Dose: 40 mls/hr Documented by: Pantoprazole Sodium 40 mg/ (Syringe) 10 mls @ 5 mls/min IV BID [place] Stop: 11/13/19 08:59 Last Admin: 10/14/19 08:37 Dose: 5 mls/min Documented by: Insulin Aspart (Insulin Aspart 100 Units/Ml 3 Ml Pen) 0 units SC Q6 [place] Stop: 11/13/19 05:59 Last Admin: 10/14/19 13:02 Dose: Not Given Documented by: Insulin Glargine (Insulin Glargine Solostar 100 Units/Ml 3 Ml Pen) 10 units SC BID [place] Stop: 11/13/19 08:59 Last Admin: 10/14/19 09:51 Dose: Not Given Documented by: Losartan Potassium (Losartan Potassium 25 Mg Tab) 25 mg PO DAILY [place] Stop: 11/13/19 08:59 Last Admin: 10/14/19 08:38 Dose: 25 mg Documented by: Metoprolol Tartrate (Metoprolol Tartrate 25 Mg Tab) 25 mg PO BID [facility] Stop: 11/13/19 20:59 Miscellaneous (Restasis~Order Awaiting Action) 1 ea N/A QS [facility] Stop: 11/13/19 07:59 Last Admin: 10/14/19 08:37 Dose: Not Given Documented by: Miscellaneous (Carbohydrates For Hypoglycemia ) 15 - 30 gm PO UD PRN PRN Reason: Hypoglycemia Protocol Stop: 11/13/19 00:43 Last Admin: 10/14/19 12:41 Dose: 15 gm Documented by: Morphine Sulfate (Morphine Sulfate 2 Mg/Ml Carp) 2 mg IV Q4H PRN PRN Reason: Pain Stop: 10/28/19 00:43 Nitroglycerin (Nitroglycerin Sl 0.4 Mg/Tab Tab) 0.4 mg SL UD PRN PRN Reason: Chest Pain Stop: 11/13/19 00:43 Probenecid (Probenecid 500 Mg Tab) 500 mg PO BID [place] Stop: 11/13/19 08:59 Last Admin: 10/14/19 08:39 Dose: 500 mg Documented by: Tramadol HCl (Tramadol Hcl 50 Mg Tablet) 25 - 50 mg PO Q4H PRN PRN Reason: Pain Stop: 11/13/19 00:43 (1) Chest pain Chest pain type: unspecified Qualified Code(s): R07.9 - Chest pain, unspecified
--- NOTE | 2019-10-14 14:02 | Consultation Report ---
DATE OF CONSULTATION: 10/14/2019 GASTROENTEROLOGY CONSULT NOTE REFERRED BY: Hospitalist service. HISTORY OF PRESENT ILLNESS: I was asked by the hospitalist service to consult on this gentleman for evaluation of anemia and dark stools. The patient is a 79-year-old who has a history of Henning's esophagus and reflux disease who was admitted due to chest pain; however, was noted to have a drop in hemoglobin from baseline since 02/2019. He denies any significant dyspeptic symptoms. He states that he typically does have dark stools and did not feel that there was anything "new." He denies dysphagia. He also has a history of prostate cancer and had radiation. He does take dual therapy for heart disease including aspirin and antiplatelet agent. He is only taking omeprazole once a day. PAST MEDICAL HISTORY: I reviewed his medical records and his past medical history and his past medical history is significant for what is already mentioned as well as chronic heart failure, COPD, diabetes, dyslipidemia, hypertension, obesity, osteoarthritis, sleep apnea and chronic kidney disease. OUTPATIENT MEDICATIONS: Include Victoza, Restasis, probenecid, Lasix, Enbrel, omeprazole 20 daily, metoprolol, losartan, insulin, aspirin, atorvastatin, tresiba. SOCIAL HISTORY: Significant for being a former smoker and no alcohol use. FAMILY HISTORY: He denies any family history of gastrointestinal disease. REVIEW OF SYSTEMS: As above, otherwise he denies any recent change in vision or hearing. He has had no hair loss. He denies any easy bruising. He has had no heat or cold intolerance. He denies any productive cough. He has had no joint swelling. He denies any dysuria or polyuria. He has had no change in mood. He denies any seizures. He denies any recent issues with depression. He has had no change in gait. PHYSICAL EXAMINATION: GENERAL: Reveals a pleasant gentleman in no distress. VITAL SIGNS: Most recent blood pressure is 120/58, pulse is 57, temperature is 36.8. SKIN: Anicteric. EYES: Show anicteric sclerae. MOUTH: Clear lesions. NECK: Supple. CHEST: Has scattered rhonchi, but decent air movement. HEART: Regular. ABDOMEN: Obese but soft. There is no organomegaly, masses or rebound tenderness noted. He has good bowel sounds. EXTREMITIES: Warm with fair distal pulses. NEUROLOGIC: He is alert and oriented x3 and grossly intact. LABORATORY DATA: Show a hemoglobin on admission of 7.6 and after transfusion 9.2 and is stable at 9.6 today. IMPRESSION: A 79-year-old gentleman, most likely with low grade chronic GI bleeding related to dual therapy, aspirin and antiplatelet agent. I do not think an endoscopy would be of any benefit to his care at this point. I would recommend that he stay on twice a day proton pump inhibitor as an outpatient. He should follow up with his regular gastrointestinal provider as an outpatient and his diet can be advanced as tolerated as per hospitalist service.
[2019-10-14] MEDS ORDERED: LORazepam 0.5 MG TAB PO PRN (15:29)
--- NOTE | 2019-10-14 15:43 | Communication Note ---
Date of Service: October 14, 2019 By CMS guidelines, a determination that the admission or continued stay is not medically necessary has been made by a member of the UR committee and a ph ysician for this hospital stay, therefore a Code 44 will be completed and the Inpatient admission will be changed to outpatient. Al Ge MD
[2019-10-14] MEDS ORDERED: ATORVASTATIN 40 MG TAB PO SCH (21:00)
--- NOTE | 2019-10-16 23:47 | Discharge Summary ---
Date of Service October 14, 2019 Admission HPI Per Admitting Provider History obtained from patient and records. Medical history significant for chronic diastolic HF as per records. CAD status post CABG sp stent, hypertension, hyperlipidemia, DM2 insulin requiring, hx TIA, chronic res piratory failure secondary to COPD on home O2, KATHE on CPAP, past tobacco abuse, CRI (baseline creatinine 2s), chronic anemia (baseline hemoglobin 12 from 2019) periodic outpatient Venofer injections, prostate cancer status post radiation, psoriatic arthropathy as per records, difficult intubation as per records, hx Henning's esophagus as per records, colonic diverticulosis/polyps Last confinement April 2018 for COPD exacerbation. Patient has been having dark stools for almost a year now without hematemesis, abdominal pain symptoms. No unusual weight loss or early satiety symptoms. Thinks he might have mentioned it to his doctors. Outpatient hemoglobin lab work this year as follows : 02/2019 11 06/2019 10 07/2019 8 09/27 8.3 10/11 7.7. Yesterday while receiving outpatient intravenous iron therapy at [facility], patient experienced midsternal chest discomfort with some shortness of breath somewhat pleuritic and going to his right side somewhat similar to heart attack in the past. No cough symptoms. Patient compliant with home medications. Some stress at home having to care for with dementia. As per patient he was instructed by Hematology staff to go to ER if with worsening discomfort. Patient consulted ER for chest discomfort, currently much improved. Medical History as above 2016 EGD was normal. 2019 colonoscopy showed polyps, diverticulosis, ascending colon lipoma SURGERIES: CABG, prostate biopsy. A port placement FAMILY HISTORY: Heart disease. Diabetes, stomach cancer PERSONAL AND SOCIAL HISTORY: Remote tobacco abuse. No chronic intake of alcoholic beverages. 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 Admission Exam Per Admitting Provider GENERAL: Comfortable, morbidly obese, pleasant, no respiratory distress SKIN: Pallor, warm HEENT: Pale palpebral conjunctivae, no ptosis, dry buccal mucosa, nasal cannula in place NECK : Supple, short neck, no tenderness CHEST : Decreased breath sounds, no tenderness HEART : Bradycardic, no obvious murmurs ABDOMEN: Some distention, nontender RECTAL : Intact sphincter, dark stool (FOBT positive) EXTREMITIES : Chronic LE swelling, no LE tenderness, no other conspicuous deformities noted NEUROLOGIC : Coherent, no facial asymmetry, no other gross focality Principal Diagnosis Symptomatic Anemia Mobitz Type I Heart Block Obesity Discharge Exam CONSTITUTIONAL: obese, vitals are stable, generally well-appearing EYES: normal conjunctivae, no scleral icterus ENT: external ear and nose normal, oropharynx clear, MMM RESPIRATORY: clear to auscultation bilaterally, no crackles, rales or wheezes, normal respiratory effort CARDIOVASCULAR: regular rate and rhythm, S1 and 2 heard without murmurs, gallops or rubs, no JVD, no peripheral edema GASTROINTESTINAL: normal bowel sounds, soft, nontender, protuberant but nondistended MUSCULOSKELETAL: strength 5/5 throughout, head is normocephalic and atraumatic SKIN: warm and dry NEUROLOGIC: No facial palsy, no dysarthria. CN 2-12 grossly intact, normal cognition, normal speech, no tremor, no gross focal neuro deficits. PSYCHIATRIC: alert cooperative and oriented to person, place and time. Discharge Data Allergies Allergy/AdvReac Type Severity Reaction Status Date / Time methylprednisolone AdvReac Severe AMS Verified 10/13/19 22:52 hydromorphone [From Dilaudid] AdvReac Intermediate Nausea Verified 10/14/19 11:06 prednisone AdvReac Unknown INCREASE Verified 10/13/19 22:52 BLOOD SUGAR Consultations 10/13/19 21:53 ED Decision to Admit Stat 10/14/19 00:44 Consult Cardiology Routine Consult Gastroenterology Routine Hospital Course (1) Severe anemia: History of Henning's esophagus, colonic diverticulosis, and polyps with chronic iron deficiency anemia on iron transfusions, last was given on 10/11. The next day he still felt symptoms of chest pain and shortness of breath so he presented to the ER per instruction. He was heme positive in stool, and H&H was 7.6/26. He was transfused 2 units of blood overnight and resulting H&H this morning was 9.6/31 with resolution of all symptoms. Seen by GI, who recommends PPI twice daily instead of once. (2) Atrioventricular block, Mobitz type 1, Asya: Cardiology consulted and his Metoprolol was cut in half. No further cardiac workup was recommended. (3) CKD (chronic kidney disease), stage III: Improved from baseline. (4) Sleep apnea: cont CPAP (5) Psoriatic arthritis: cont Enbrel weekly per home regimen. (6) Coronary artery disease: h/o CABG. Stable, changes in metoprolol as above. Echo as above. Cont medical management with Lipitor, Cozaar, ASA 81mg daily, metoprolol. (7) Chronic respiratory failure: 2/2 COPD, cont chronic oxygen supplementation. No bronchospasm or wheezing. Stable. At time of discharge he was hemodynamically stable and afebrile and tolerating PO. He was mentating at baseline and was recommended to have close follow-up with his PCP within one week of discharge from the hospital. Total Time Total Time Spent Total Time Spent (In Minutes): 60 Total Time Includes: Examination of the Patient, Discharge Planning, Medication Reconciliation and Communication With Other Providers Discharge Plan Discharge Items Patient Disposition: Home - Self-Care Reason For Visit: CP, UGIB Discharge Diagnosis: Symptomatic Anemia Mobitz Type I Heart Block Obesity Condition on Discharge: Good Activity: Resume your previous activity Non-emergency contact: Primary Care Provider Call non-emergency contact if: you have any medication questions and your symptoms worsen Follow-up/Referrals: Levy Stout MD [Primary Care Provider] - Diet: Carb Consistent or DM2 and Low Sodium (2gm) Addtl Attending Provider Instructions: Please take all medications as instructed per discharge list below. It is recommended that you followup with your primary care physician (PCP) in 1- 2 weeks after discharge to ensure you are still dong well since going home. Also to continue the workup plan for your cause of anemia. You were found to have a benign type of heart block, therefore, your metoprolol was decreased by half. To treat your anemia, per GI, you should double your PPI as reflected below. It was a pleasure taking care of you! Please call if you have any questions or problems. You can reach a [facility] hospitalist on duty at [facility] 24 hours a day by calling [phone]. Take care of yourself. Nessa Hanna, DO [facility] Hospitalist Pending Studies at Discharge: No Stand-Alone Forms: My [facility] [employer], Smoking Cessation Medications and DC Order Prescriptions: New metoprolol tartrate 25 mg Tablet 25 mg PO BID Qty: 60 RF: 1 omeprazole 20 mg Tablet,Delayed Release (Dr/Ec) 20 mg PO BID Qty: 60 RF: 1 Continued Enbrel SureClick 50 mg/mL (0.98 mL) Pen Injector 1 dose subcut WK RF: 0 furosemide [Lasix] 80 mg Tablet 80 mg PO QAM RF: 0 Tresiba FlexTouch U-200 200 unit/mL (3 mL) Insulin Pen 100 unit SUBCUT QAM RF: 0 insulin aspart U-100 [Novolog Flexpen U-100 Insulin] 100 unit/mL (3 mL) Insulin Pen 0 unit SUBCUT TID Qty: 0 RF: 0 losartan 25 mg Tablet 25 mg PO DAILY RF: 0 atorvastatin 80 mg Tablet 80 mg PO QPM RF: 0 [place]-3 Fish Oil 300-1,000 mg Capsule 2 cap PO QAM RF: 0 nitroglycerin [Nitrostat] 0.4 mg Tablet, Sublingual 0.4 mg Sublingual UD PRN (Reason: Chest Pain) RF: 0 fluticasone propionate [Flonase Allergy Relief] 50 mcg/actuation [place],Suspension 2 spray INTRANASAL DAILY RF: 0 aspirin [Aspir-81] 81 mg Tablet,Delayed Release (Dr/Ec) 81 mg PO QAM RF: 0 probenecid 500 mg tablet 500 mg PO BID RF: 0 Restasis 0.05 % dropperette 1 drp OPB Q12 RF: 0 Victoza 3-Kei 0.6 mg/0.1 mL (18 mg/3 mL) pen injector 1.2 mg SUBCUT DAILY RF: 0 Discontinued metoprolol tartrate 50 mg Tablet 50 mg PO BID RF: 0 Discharge Orders: Discharge Order (Routine); Ordered 10/14/19 Ordered By: Nessa Hanna Admission Data Admit Date/Time: 10/13/19 22:57 Attending Provider: Nessa Hanna Admit Provider: Jamal Carrion Primary Care Provider: Levy Stout Other Providers: Jamal Carrion ; Dwaine Rolon ; Ga Arevalo ; Nhan Gomes ; Gareth Pimentel ; Guevara Tobias ; Blair Hannah Rebecca K ; Ariella Rosenberg ; Ovidio Sagastume ; Vasquez Servin ; Linette Lombardo ; Oxana [place] ; Karen Peres ; Dillon Ashley ; Ethel Sanchez ; River Negron ; Nataliya Cannon ; Jose Eduardo Valadez ; Que Montes ; Kate Espitia ; Mandi Marquez ; Marielena Hall ; Concepcion Diaz ; Annelise Diaz Other Interventions: Discharge Summary Assessment (RN) Last Done: 10/14/19 16:56
== END 2019-10-14 18:36 | disposition home or self-care (01) ==
LOC: ED 20:46 → INTOOBSV 22:57 → 2S 22:57

== ENCOUNTER 2020-05-17 23:36 | Observation (INO) ==
--- NOTE | 2020-05-18 00:54 | Emergency Department Note ---
Impression & Plan SOB (shortness of breath), Weakness, Wheezing, Anemia, Black stool ED Provider Note NAME: EMI MCDONOUGH AGE: 79 SEX: M : 1940 ARRIVES VIA: Walk-In INFORMANT: [Patient] ED PROVIDER(S): [Jose Camacho MD] CHIEF COMPLAINT: Weakness, shortness of breath, black stool HISTORY OF PRESENT ILLNESS: The patient is a 79-year-old male who states he has a chronic GI bleed. They cannot find the source. He receives iron transfusions regularly and sometimes, blood transfusions. He is not on blood thinners other than aspirin. The patient states that his recent hemoglobin was around 9. Over the last week, the patient has had increasing shortness of breath and fatigue. He has had some occasional chest pain but that comes and goes and is not associated with activity or exertion. There has been no fever. He has noticed some increased wheezing, no cough. He does not believe that he has Covid as he has been vaccinated. He has had no Covid exposures. The patient states his stools are almost always black. He denies vomiting. He denies diarrhea. There is no abdominal pain. The patient spoke to the medical staff coordinator today over the phone--because of his anemia, because of his shortness of breath, he was referred to the ED. The patient does have oxygen at home to use, he has been using it lately. He states that with exertion, even with oxygen, his O2 saturation dropped to the 80s today. REVIEW OF SYSTEMS: See HPI for pertinent positives and negatives. A total of ten systems were reviewed and were otherwise negative. PMHx/PSHx: See Below SOCIAL HISTORY: See Below. PHYSICAL EXAM: GENERAL: Patient is in no acute distress. HEENT: No acute trauma, normocephalic atraumatic, mucous membranes moist, no nasal congestion, no scleral icterus. NECK: No stridor, no adenopathy, no meningismus, trachea is midline. LUNGS: Breath sounds are full, there is some bilateral wheeze with expiration. The breath sounds are equal. No rales. HEART: Somewhat irregular rhythm, there is a slight systolic murmur, the heart tones are distant. There is a normal rate. ABDOMEN: Soft, nontender, bowel sounds positive, no hernias, no peritonitis. EXTREMITIES: No cyanosis, moderate bilateral pedal edema, full range of motion of all the joints without pain or difficulty, no signs for acute trauma. NEUROLOGIC: Oriented x 3, no acute motor or sensory deficits, no focal weakness. SKIN: No rash, no jaundice, no diaphoresis. Rectal: Brown stool, heme-negative. DIFFERENTIAL DIAGNOSIS: Reactive airway disease, pneumonia, pneumothorax, COPD, CHF, COVID-19, influenza, infection, cardiac ischemia, pulmonary embolism, bronchitis, musculoskeletal, gastrointestinal, as well as other pathologies. EMERGENCY DEPARTMENT COURSE/PROCEDURES: ECG: Indication was shortness of breath. The ECG shows a sinus bradycardia with a second-degree AV block type I. The rate is 58. There is no ST elevation, no PVCs. The QTc is 443. Compared to an ECG from 13 October 2019, I see no significant change. Continuous Cardiac Monitoring: An order was placed for continuous cardiac monitoring. The monitor shows a rate of 84 with sinus rhythm with a second- degree AV block, type I. MEDICAL DECISION MAKING: There is no leukocytosis. The patient is anemic at 8.8, this is a drop for him. His value is not technically at the level where he requires an emergent blood transfusion. There is a normal platelet count. Creatinine is elevated at 2, this is baseline though for the patient. No significant electrolyte abnormality in need of emergent correction. Alk phos slightly elevated, the bilirubin though was normal. ECG shows a sinus bradycardia with a second-degree AV block type I. This is a baseline ECG for the patient. Cardiac enzyme testing x1 is not consistent with acute cardiac injury. The patient appeared to be in a euthyroid state. Chest film showed some chronic findings, no evidence for acute CHF, no pneumonia or pneumothorax. On exam, the patient was wheezing. He was not hypoxic by our pulse ox testing. He was not febrile. The patient refused any type of albuterol treatment. He refused to have a Covid swab performed. The patient presents with increasing dyspnea and weakness over the last weeks timeframe. I suspect his dyspnea is multifactorial. He has COPD and is wheezing, he has some chronic fluid overload/CHF issues, he is anemic at baseline and today's hemoglobin is below his typical values. I think the patient requires a hospital stay. I do not feel he is safe for discharge home. His hemoglobin may drop further overnight and at that point, he may qualify for a transfusion. He has been having black stool. Things have been escalating for him the last week or so and--given his past history and chronic diagnosis, care within the hospital would be warranted. I spoke to the patient and case consultant. The on-call hospitalist was consulted. Past Med/Surg History Medical History Anemia Chest pain CHF (congestive heart failure) Chronic obstructive pulmonary disease Diabetes Diabetes mellitus, type 2 Diverticular disease GERD (gastroesophageal reflux disease) History of colon polyps Hyperlipidemia Hypertension Obesity On home oxygen therapy 2L N/C prn SOB Osteoarthritis Prostate cancer radiation seeds Psoriasis Shortness of breath on exertion oxygen 2L n/c prn Sleep apnea cpap--no oxygen Stage 4 chronic kidney disease Surgical History History of cardiac cath had 4 total--last 2015 @ [facility] History of colonoscopy History of esophagogastroduodenoscopy (EGD) History of heart artery stent x6 stents total History of prostate biopsy malignant History of tooth extraction S/P CABG x 3 2008 @ [facility]---follows with Dr. Rolon Status post LASIK surgery of both eyes Family History Other No family history of adverse response to anesthesia Social History Smoking Status: Former smoker Second Hand Exposure: Yes ( smoked); Hx Alcohol Use: No Hx Substance Use: No Preferred Language: Yakut Communication Ability: Effective Gallery Or Museum Guide Required: No Beliefs That Will Affect Care: None Current Living Situation: Spouse and Family Feels Safe at Home: Yes Assistive Devices: Oxygen - Continuous Allergies Allergies Allergy/AdvReac Type Severity Reaction Status Date / Time methylprednisolone AdvReac Severe AMS Verified 10/13/19 22:52 hydromorphone [From Dilaudid] AdvReac Intermediate Nausea Verified 10/14/19 11:06 prednisone AdvReac Unknown INCREASE Verified 10/13/19 22:52 BLOOD SUGAR Home Meds Home Medications Medication Instructions Recorded Confirmed [place]-3 Fish Oil 2 cap PO QAM 11/13/17 10/13/19 Tresiba FlexTouch U-200 100 unit SUBCUT QAM 11/13/17 10/13/19 aspirin [Aspir-81] 81 mg PO QAM 11/13/17 10/13/19 atorvastatin 80 mg PO QPM 11/13/17 10/13/19 fluticasone propionate [Flonase 2 spray INTRANASAL DAILY 11/13/17 10/13/19 Allergy Relief] insulin aspart U-100 [Novolog 0 unit SUBCUT TID #0 11/13/17 10/13/19 Flexpen U-100 Insulin] losartan 25 mg PO DAILY 11/13/17 10/13/19 nitroglycerin [Nitrostat] 0.4 mg SUBLINGUAL UD PRN 11/13/17 10/13/19 Enbrel SureClick 1 dose SUBCUT WK 04/10/18 10/13/19 furosemide [Lasix] 80 mg PO QAM 04/20/18 10/13/19 probenecid 500 mg PO BID 05/29/19 10/13/19 Restasis 1 drp OPB Q12 10/13/19 10/13/19 Victoza 3-Kei 1.2 mg SUBCUT DAILY 10/13/19 10/13/19 Previous Rx's Medication Instructions Recorded metoprolol tartrate 25 mg PO BID #60 tab 10/14/19 omeprazole 20 mg PO BID #60 tab 10/14/19 Results & Data (ED) Vital Signs Vital Signs - 24 hr 05/17/20 23:42 05/18/20 00:30 05/18/20 01:23 Temperature 37.1 C Temperature Source Temporal Artery Scan Pulse Rate 84 Pulse Rate [Right Finger] 60 Respiratory Rate 20 18 Respiratory Effort / Characteristics Non-Labored Spontaneous Respiratory Depth Normal Normal Respiratory Pattern Regular Blood Pressure 131/66 Blood Pressure [Right Arm] 112/58 L Blood Pressure Mean 87 Blood Pressure Mean [Right Arm] 76 Blood Pressure Position Sitting Blood Pressure Position [Right Arm] Lying Pulse Oximetry 99 97 95 Oxygen Delivery Method Nasal Cannula Room Air Nasal Cannula Oxygen Flow Rate 2 2 Sepsis Recent Fever Within 48 Hours No Sepsis New/Unexplained Change in Mental Status No Sepsis Action Taken by Nursing No Action Required Home Medications Current Medication List: was personally reviewed by me Laboratory Data Attestation: I reviewed the patient's lab results. Result diagrams: 05/18/20 00:53 05/18/20 00:53 Lab Results 04/04/21 04/04/21 04/04/21 Range/Units 00:53 00:53 00:53 WBC 8.51 (4.8-10.8) K/uL RBC 3.03 L (4.7-6.1) M/uL Hgb 8.8 L (14.0-18.0) g/dL Hct 28.0 L (42-52) % MCV 92.4 (80-100) fL MCH 29.0 (25-34) pg MCHC 31.4 L (32-36) g/dL RDW Std Deviation 58.0 H (36.4-46.3) fL RDW Coeff of Joey 17.4 H (11.5-14.5) % Plt Count 214 (130-400) K/uL MPV 9.2 (7.4-10.4) fL Immature Gran % (Auto) 0.2 % Neut % (Auto) 77.1 % Lymph % (Auto) 14.2 % [place] % (Auto) 4.7 % Eos % (Auto) 3.6 % Baso % (Auto) 0.2 % Neut # (Auto) 6.55 H (1.4-6.5) K/uL Lymph # (Auto) 1.21 (1.2-3.4) K/uL [place] # (Auto) 0.40 (0.11-0.59) K/uL Eos # (Auto) 0.31 (0-0.5) K/uL Baso # (Auto) 0.02 (0-0.2) K/uL Immature Gran # (Auto) 0.02 (0.00-0.02) K/uL Sodium 137 (136-145) mmol/L Potassium 4.1 (3.5-5.1) mmol/L Chloride 104 (98-107) mmol/L Carbon Dioxide 28 (21-32) mmol/L Anion Gap 5.0 (3-11) BUN 32 H (7-18) mg/dl Creatinine 2.01 H (0.6-1.4) mg/dl Est Cr Clr Drug Dosing 37.0 ml/min Est GFR ( Amer) 36.0 Est GFR (Non-Af Amer) 31.1 BUN/Creatinine Ratio 15.7 (10-20) Glucose 105 H (70-99) mg/dl Calcium 7.9 L (8.5-10.1) mg/dl Phosphorus 2.6 (2.5-4.9) mg/dl Magnesium 2.0 (1.8-2.4) mg/dl Total Bilirubin 0.4 (0.2-1) mg/dl AST 11 L (15-37) U/L ALT 17 (12-78) U/L Alkaline Phosphatase 167 H (45-117) U/L Troponin I < 0.015 (0-0.045) ng/ml NT-Pro-B Natriuret Pep 477 (0-1800) pg/ml Total Protein 6.7 (6.4-8.2) gm/dl Albumin 2.7 L (3.4-5.0) gm/dl Globulin 4.0 (2.5-4.0) gm/dl Albumin/Globulin Ratio 0.7 L (0.9-2) TSH 2.760 (0.300-4.500) uIu/ml Blood Type A Positive Antibody Screen NEGATIVE Imaging Data Attestation: I personally reviewed and interpreted this imaging study as follows: My Impression: Chest x-ray: There is some chronic parenchymal change, I do not see any pneumonia or CHF. There is no pneumothorax. The film looks similar to previous films. Discharge Plan Visit Data Chief Complaint: Rectal Bleed Stated Complaint: BLEEDING FOR RECTUM ED Provider: Jose Camacho Discharge Problem: SOB (shortness of breath), Weakness, Wheezing, Anemia, Black stool Patient Disposition: Admitted As Inpatient Condition: Fair Forms Stand Alone Forms: [facility] Prescriptions Prescriptions: No Action Enbrel SureClick 50 mg/mL (0.98 mL) Pen Injector 1 dose subcut WK RF: 0 furosemide [Lasix] 80 mg Tablet 80 mg PO QAM RF: 0 Tresiba FlexTouch U-200 200 unit/mL (3 mL) Insulin Pen 100 unit SUBCUT QAM RF: 0 insulin aspart U-100 [Novolog Flexpen U-100 Insulin] 100 unit/mL (3 mL) Insulin Pen 0 unit SUBCUT TID Qty: 0 RF: 0 losartan 25 mg Tablet 25 mg PO DAILY RF: 0 atorvastatin 80 mg Tablet 80 mg PO QPM RF: 0 [place]-3 Fish Oil 300-1,000 mg Capsule 2 cap PO QAM RF: 0 nitroglycerin [Nitrostat] 0.4 mg Tablet, Sublingual 0.4 mg Sublingual UD PRN (Reason: Chest Pain) RF: 0 fluticasone propionate [Flonase Allergy Relief] 50 mcg/actuation [place],Suspension 2 spray INTRANASAL DAILY RF: 0 aspirin [Aspir-81] 81 mg Tablet,Delayed Release (Dr/Ec) 81 mg PO QAM RF: 0 probenecid 500 mg tablet 500 mg PO BID RF: 0 Restasis 0.05 % dropperette 1 drp OPB Q12 RF: 0 Victoza 3-Kei 0.6 mg/0.1 mL (18 mg/3 mL) pen injector 1.2 mg SUBCUT DAILY RF: 0 metoprolol tartrate 25 mg Tablet 25 mg PO BID Qty: 60 RF: 1 omeprazole 20 mg Tablet,Delayed Release (Dr/Ec) 20 mg PO BID Qty: 60 RF: 1 Referrals Referrals: Levy Stout MD [Primary Care Provider] - Discharge Problem: Anemia Qualifiers: Anemia type: unspecified type Qualified Code(s): D64.9 - Anemia, unspecified
[2020-05-18 01:03] LABS: Basophils # (auto) 0.02 K/uL (0-0.2); Basophils % (auto) 0.2 %; Eosinophils # (auto) 0.31 K/uL (0-0.5); Eosinophils % (auto) 3.6 %; Hemoglobin 8.8 g/dL (14.0-18.0); Immature Granulocytes # (auto) 0.02 K/uL (0.00-0.02); Immature Granulocytes % (auto) 0.2 %; Lymphocytes # (auto) 1.21 K/uL (1.2-3.4); Lymphocytes % (auto) 14.2 %; Mean Corpuscular Hgb Conc 31.4 g/dL (32-36); Mean Corpuscular Volume 92.4 fL (80-100); Mean Platelet Volume 9.2 fL (7.4-10.4); Monocytes % (auto) 4.7 %; Neutrophils # (auto) 6.55 K/uL (1.4-6.5); Neutrophils % (auto) 77.1 %; Platelet Count 214 K/uL (130-400); RDW Coefficient of Variation 17.4 % (11.5-14.5); Red Blood Count 3.03 M/uL (4.7-6.1); White Blood Count 8.51 K/uL (4.8-10.8)
[2020-05-18 01:19] LABS: Alanine Aminotransferase 17 U/L (12-78); Albumin Level 2.7 gm/dl (3.4-5.0); Aspartate Aminotransferase 11 U/L (15-37); BUN Creatinine Ratio 15.7 (10-20); Blood Urea Nitrogen 32 mg/dl (7-18); Calcium 7.9 mg/dl (8.5-10.1); Carbon Dioxide 28 mmol/L (21-32); Chloride 104 mmol/L (98-107); Est GFR (Non-African American) 31.1; Glucose 105 mg/dl (70-99); Potassium 4.1 mmol/L (3.5-5.1); Sodium 137 mmol/L (136-145)
[2020-05-18 01:30] LABS: Albumin Globulin Ratio 0.7 (0.9-2); Alkaline Phosphatase 167 U/L (45-117); Bilirubin,Total 0.4 mg/dl (0.2-1); NT Pro B Type Natriuretic Pept 477 pg/ml (0-1800); Phosphorus 2.6 mg/dl (2.5-4.9); Total Protein 6.7 gm/dl (6.4-8.2); Troponin I < 0.015 ng/ml (0-0.045)
[2020-05-18 03:20] LABS: Influenza A virus by PCR Negative (Neg); Influenza B virus by PCR Negative (Neg); RSV by PCR Negative (Neg); SARS CoV2 RNA(COVID-19) InHosp NEGATIVE (Negative)
[2020-05-18] MEDS ORDERED: POLYETHYLENE (MIRALAX) 17 GM PACK PO PRN (04:58)
[2020-05-18] MEDS ORDERED: ACETAMINOPHEN 325 MG TAB PO STA (04:58)
[2020-05-18] MEDS ORDERED: ONDANSETRON INJ 2 MG/ML 2 ML VIAL IV PRN (04:58)
[2020-05-18] MEDS ORDERED: NITROGLYCERIN SL 0.4 MG/TAB TAB SL PRN ×2 (04:58)
[2020-05-18] MEDS ORDERED: ACETAMINOPHEN 325 MG TAB PO PRN (04:58)
[2020-05-18] MEDS ORDERED: SODIUM CHLORIDE 0.9% 250 ML IV PRN (04:58)
[2020-05-18] MEDS ORDERED: DEXTROSE 50% 50 ML SYRINGE IV PRN (05:30)
[2020-05-18] MEDS ORDERED: FUROSEMIDE 40 MG in SYRINGE 0 ML IV ONE (05:30)
[2020-05-18] MEDS ORDERED: GLUCAGON FOR INJ 1 MG VIAL SQ PRN (05:30)
[2020-05-18] MEDS ORDERED: CARBOHYDRATES FOR HYPOGLYCEMIA PO PRN (05:30)
[2020-05-18] MEDS ORDERED: GLUCOSE 10 TABS/TUBE PO PRN (05:30)
[2020-05-18] MEDS ORDERED: GLUCOSE 40% GEL 15 GM TUBE PO PRN (05:30)
[2020-05-18 07:22] LABS: BUN Creatinine Ratio 17.6 (10-20); Calcium 7.7 mg/dl (8.5-10.1); Creatinine Clr Calc Pharmacy 39.3 ml/min; Est GFR (African American) 38.8; Est GFR (Non-African American) 33.5; Magnesium 2.1 mg/dl (1.8-2.4); Potassium 3.8 mmol/L (3.5-5.1)
[2020-05-18] MEDS ORDERED: FUROSEMIDE 40 MG/4 ML VIAL IV ONE (08:00)
[2020-05-18] MEDS: FUROSEMIDE 80 MG TAB PO SCH (08:12)
[2020-05-18] MEDS: PANTOprazole 40 MG TAB PO SCH ×2 (08:13→20:29)
[2020-05-18] MEDS: ASPIRIN 81 MG ECTAB PO SCH (08:13)
[2020-05-18] MEDS: LOSARTAN POTASSIUM 25 MG TAB PO SCH (08:13)
[2020-05-18] MEDS: PROBENECID 500 MG TAB PO SCH ×2 (08:13→20:28)
[2020-05-18] MEDS: FLUTICASONE PROPIONATE NA SPR 16 GM BTL SCH (08:14)
[2020-05-18] MEDS: INSULIN GLARGINE SOLOSTAR 100 UNITS/ML 3 ML PEN SC SCH ×2 (08:14→20:30)
[2020-05-18] MEDS: RESTASIS~ORDER AWAITING ACTION SCH ×3 (08:14→23:14)
[2020-05-18] MEDS: INSULIN ASPART 100 UNITS/ML 3 ML PEN SC SCH ×4 (08:15→20:31)
--- NOTE | 2020-05-18 08:44 | XRay Report ---
SINGLE VIEW CHEST CLINICAL HISTORY: Atypical chest pain. FINDINGS: An AP, portable, upright chest radiograph is compared to study dated 10/13/2019. A left subc lavian central venous infusion port is unchanged in position. The patient is status post midline ster notomy. The heart is enlarged noting atherosclerotic calcification of the thoracic aorta. The pulmona ry vasculature is noncongested. Chronic interstitial thickening is similar to previous. There is no a irspace consolidation or large pleural effusion. Scar/atelectasis is noted at the lung bases. No pneu mothorax is seen. The skeletal structures are osteopenic. The bony thorax is grossly intact. IMPRESSION: Cardiomegaly with no acute cardiopulmonary abnormality. ACT 112: Negative or not required by law. Electronically signed by: Jose Rasmussen M.D. 05/18/2020 8:43 AM
[2020-05-18] MEDS ORDERED: METOPROLOL TARTRATE 25 MG TAB PO SCH (09:00)
[2020-05-18 09:03] LABS: Appearance Urine Clear (Clear); Bacteria Urine Automated Negative (Negative); Bilirubin Urine Negative (Negative); Blood Urine Negative (Negative); Cast Urine Automated 0 /lpf (0-5); Color Urine Yellow; Glucose Urine UA Negative (Negative); Ketones Urine Negative (Negative); Leukocyte Esterase Urine 1+ (Negative); Nitrite Urine Negative (Negative); Protein Urine 1+ (Negative); RBC Urine Automated 0-4 /hpf (0-4); Specific Gravity Urine 1.014 (1.000-1.030); Urobilinogen Urine Negative (Negative)
[2020-05-18] MEDS: HEPARIN 100 UNIT/ML 5ML FLUSH FLUSH PRN (11:39)
--- NOTE | 2020-05-18 11:40 | Hospitalist Progress Note ---
Date of Service May 18, 2020 Assessment & Plan (1) Symptomatic anemia: Has been complaining of increasing shortness of breath with exertion for the last 2 weeks History of recurrent blood transfusion secondary to symptomatic anemia due to chronic GI blood loss He has been on intravenous iron as an outpatient His hemoglobin was 8.8 on admission Has been getting 2 units of PRBC to maintain the hemoglobin above 10 We will repeat CBC in following blood transfusion (2) Chronic blood loss anemia: Has history of Henning's esophagus Chronic GI blood loss from that We will continue PPI and iron infusion as an outpatient (3) Chest pain: Has been complaining of occasional chest pressure and palpitation for the last 2 weeks Symptoms are worse following mild physical exertion Has significant cardiac history of CAD, CABG and status post stent placement He has been having second-degree type I block in EKG Troponin on admission was not elevated Inspector And Unloader consulted Type I second-degree AV block Beta-marciano has been started Monitor in telemetry unit for tonight (4) CKD (chronic kidney disease), stage III: History of chronic kidney disease stage III-IV We will monitor PRP (5) Diabetes mellitus type 2 in obese: We will continue with SSI Check hemoglobin A1c (6) COPD (chronic obstructive pulmonary disease): Doubt any acute exacerbation We will continue his home medications (7) CHF (congestive heart failure): Does not have any acute CHF proBNP is 447 (8) Prostate cancer: No acute problem DVT prophylaxis SCDs CODE STATUS Full Admission and Anticipated Discharge Date Admission Date: May 18, 2020 Subjective 05/18/2020 The patient was seen and examined in medical telemetry unit He has chronic GI bleed with history of CAD status post CABG and stent placement in the past He has been complaining of chest pain, palpitation, exertional shortness of breath and weakness for the last 2 weeks He was admitted with symptomatic anemia and has been getting blood transfusion Review of Systems Review of Systems: All systems reviewed and are unremarkable except as noted below Respiratory: + dyspnea on exertion and + wheezing Cardiovascular: + chest pain, + dyspnea on exertion and + palpitations Physical Exam Physical Exam: Sitting on a chair without any apparent distress at rest Constitutional: well developed, well nourished and + obese; not ill appearing Eyes: PERRL, conjunctivae normal, anicteric sclerae ENMT: external ear and nose normal, oropharynx normal Neck: trachea midline, no thyromegaly Respiratory: no respiratory distress Auscultation: + diminished lung sounds and + crackles (Minimal crackles at the bases) Cardiovascular: Rate/Rhythm: + irregularly irregular Heart Sounds: + murmur (2/6 ejection systolic murmur over precordium) Extremities: + edema (1+ bilateral edema of the legs) Gastrointestinal (Abdomen): Inspection/Auscultation: + abdomen distended and normal bowel sounds Percussion/Palpation: abdomen soft; abdomen nontender Musculoskeletal: No acute arthritis in any joint Neurologic: Alert, awake and oriented x3 Lymphatic: no cervical or axillary lymphadenopathy Results & Data Results & Data ([facility]) Vital Signs (Past 12 Hours) Vital Signs Temp Pulse Pulse Resp BP BP Pulse Ox 05/18/20 10:53 36.6 C 52 L 16 121/52 L 96 05/18/20 10:10 36.4 C L 67 20 129/79 96 05/18/20 09:29 36.6 C 67 18 127/62 96 05/18/20 09:13 36.9 C 65 18 122/58 L 97 05/18/20 08:15 36.5 C 60 18 127/71 97 05/18/20 07:35 45 L 05/18/20 07:15 36.9 C 50 L 20 125/70 97 05/18/20 06:44 36.9 C 64 15 111/52 L 100 05/18/20 06:30 36.6 C 64 16 123/71 100 05/18/20 06:10 36.5 C 64 16 125/67 100 05/18/20 05:00 36.6 C 60 18 149/81 H 99 05/18/20 04:19 55 L 18 115/58 L 97 05/18/20 03:22 63 16 113/50 L 98 05/18/20 01:23 60 18 112/58 L 95 05/18/20 00:30 97 05/17/20 23:42 37.1 C 84 20 131/66 99 Laboratory Results Short CBC 05/18/20 Range/Units 00:53 WBC 8.51 (4.8-10.8) K/uL Hgb 8.8 L (14.0-18.0) g/dL Hct 28.0 L (42-52) % Plt Count 214 (130-400) K/uL BMP 05/18/20 05/18/20 00:53 06:38 Sodium 137 138 Potassium 4.1 3.8 Chloride 104 107 Carbon Dioxide 28 27 BUN 32 H 33 H Creatinine 2.01 H 1.89 H Glucose 105 H 70 Calcium 7.9 L 7.7 L Cardiac Enzymes 05/18/20 Range/Units 00:53 Troponin I < 0.015 (0-0.045) ng/ml Liver Function 05/18/20 Range/Units 00:53 Total Bilirubin 0.4 (0.2-1) mg/dl AST 11 L (15-37) U/L ALT 17 (12-78) U/L Alkaline Phosphatase 167 H (45-117) U/L Albumin 2.7 L (3.4-5.0) gm/dl Urine 05/18/20 Range/Units Unknown Urine Color Yellow Urine Appearance Clear (Clear) Urine pH 5.0 (4.5-7.5) Ur Specific [place] 1.014 (1.000-1.030) Urine Protein 1+ H (Negative) Urine Glucose (UA) Negative (Negative) Medications Administered Current Inpatient Medications Acetaminophen (Acetaminophen 325 Mg Tab) 650 mg PO Q4H PRN PRN Reason: Pain or Fever Stop: 06/17/20 04:57 Aspirin (Aspirin 81 Mg Ectab) 81 mg PO QAM [facility] Stop: 06/17/20 08:59 Last Admin: 05/18/20 08:13 Dose: 81 mg Documented by: Atorvastatin Calcium (Atorvastatin 40 Mg Tab) 80 mg PO QPM [facility] Stop: 06/17/20 20:59 Dextrose (Dextrose 50% 50 Ml Syringe) 25 - 50 ml IV UD PRN; Protocol PRN Reason: Hypoglycemia Protocol Stop: 06/17/20 05:29 Fluticasone Propionate (Fluticasone Propionate Na Spr 16 Gm Btl) 2 sprays NA DAILY [facility] Stop: 06/17/20 08:59 Last Admin: 05/18/20 08:14 Dose: 2 sprays Documented by: Furosemide (Furosemide 80 Mg Tab) 80 mg PO QAM [facility] Stop: 06/17/20 08:59 Last Admin: 05/18/20 08:12 Dose: 80 mg Documented by: Glucagon (Glucagon For Inj 1 Mg Vial) 1 mg SQ UD PRN; Protocol PRN Reason: Hypoglycemia Protocol Stop: 06/17/20 05:29 Glucose (Glucose 40% Gel 15 Gm Tube) 15 - 30 gm PO UD PRN; Protocol PRN Reason: Hypoglycemia Protocol Stop: 06/17/20 05:29 Glucose (Glucose 10 Tabs/Tube) 4 - 8 tabs PO UD PRN; Protocol PRN Reason: Hypoglycemia Protocol Stop: 06/17/20 05:29 Heparin Sodium (Porcine) (Heparin 100 Unit/Ml 5ml Flush) 5 ml FLUSH PRN PRN PRN Reason: Flush Stop: 06/17/20 05:06 Sodium Chloride (Nss) 250 mls @ 15 mls/hr IV .[id number] PRN PRN Reason: For Transfusion Stop: 05/18/20 13:27 Insulin Aspart (Insulin Aspart 100 Units/Ml 3 Ml Pen) 0 units SC ACHS [facility] Stop: 06/17/20 07:29 Last Admin: 05/18/20 08:15 Dose: 3 units Documented by: Insulin Glargine (Insulin Glargine Solostar 100 Units/Ml 3 Ml Pen) 7 units SC BID [facility] Stop: 06/17/20 08:59 Last Admin: 05/18/20 08:14 Dose: 7 units Documented by: Losartan Potassium (Losartan Potassium 25 Mg Tab) 25 mg PO DAILY [facility] Stop: 06/17/20 08:59 Last Admin: 05/18/20 08:13 Dose: 25 mg Documented by: Metoprolol Tartrate (Metoprolol Tartrate 25 Mg Tab) 25 mg PO BID [facility] Stop: 06/17/20 08:59 Last Admin: 05/18/20 08:13 Dose: 25 mg Documented by: Miscellaneous (Restasis~Order Awaiting Action) 1 ea N/A QS [facility] Stop: 06/17/20 07:59 Last Admin: 05/18/20 08:14 Dose: Not Given Documented by: Miscellaneous (Carbohydrates For Hypoglycemia ) 15 - 30 gm PO UD PRN PRN Reason: Hypoglycemia Treatment Stop: 06/17/20 05:29 Nitroglycerin (Nitroglycerin Sl 0.4 Mg/Tab Tab) 0.4 mg SL UD PRN PRN Reason: Chest Pain Stop: 06/17/20 04:57 Ondansetron HCl (Ondansetron Inj 2 Mg/Ml 2 Ml Vial) 4 mg IV Q6H PRN PRN Reason: Nausea Stop: 06/17/20 04:57 Pantoprazole Sodium (Pantoprazole 40 Mg Tab) 40 mg PO BID [facility] Stop: 06/17/20 08:59 Last Admin: 05/18/20 08:13 Dose: 40 mg Documented by: Polyethylene Glycol (Polyethylene (Miralax) 17 Gm Pack) 17 gm PO DAILY PRN PRN Reason: Constipation Stop: 06/17/20 04:57 Probenecid (Probenecid 500 Mg Tab) 500 mg PO BID [facility] Stop: 06/17/20 08:59 Last Admin: 05/18/20 08:13 Dose: 500 mg Documented by: (1) Chest pain Chest pain type: unspecified Qualified Code(s): R07.9 - Chest pain, unspecified
[2020-05-18 13:02] LABS: Basophils # (auto) 0.02 K/uL (0-0.2); Basophils % (auto) 0.3 %; Eosinophils # (auto) 0.21 K/uL (0-0.5); Eosinophils % (auto) 2.8 %; Hematocrit (blood only) 32.9 % (42-52); Hemoglobin 10.6 g/dL (14.0-18.0); Immature Granulocytes # (auto) 0.01 K/uL (0.00-0.02); Immature Granulocytes % (auto) 0.1 %; Lymphocytes # (auto) 1.07 K/uL (1.2-3.4); Lymphocytes % (auto) 14.2 %; Mean Corpuscular Hemoglobin 29.4 pg (25-34); Mean Corpuscular Hgb Conc 32.2 g/dL (32-36); Mean Corpuscular Volume 91.4 fL (80-100); Mean Platelet Volume 9.4 fL (7.4-10.4); Monocytes # (auto) 0.25 K/uL (0.11-0.59); Monocytes % (auto) 3.3 %; Neutrophils # (auto) 5.95 K/uL (1.4-6.5); Neutrophils % (auto) 79.3 %; Platelet Count 197 K/uL (130-400); RDW Coefficient of Variation 16.5 % (11.5-14.5); RDW Standard Deviation 54.7 fL (36.4-46.3); White Blood Count 7.51 K/uL (4.8-10.8)
--- NOTE | 2020-05-18 13:27 | History and Physical Report ---
DATE OF ADMISSION: 05/18/2020 CHIEF COMPLAINT: Shortness of breath, symptomatic anemia. HISTORY OF PRESENT ILLNESS: This is a 79-year-old male with past medical history significant for type 2 diabetes, chronic respiratory failure with hypoxia on 2 liters oxygen, sleep apnea, CPAP q. at bedtime, hyperlipidemia, gout, history of chronic obstructive pulmonary disease, pulmonary hypertension, chronic diastolic CHF, CAD status post stent, status post CABG, Henning's esophagus with dysplasia, chronic kidney disease stage IV, BPH, generalized osteoarthritis, iron deficiency anemia due to chronic blood loss, psoriasis, psoriatic arthropathy, presents with shortness of breath and anemia. The patient says he is getting short of breath lately, walking to his bathroom make him short of breath and he checked outpatient labs showed hemoglobin of 9.1 and that is why he came here and his hemoglobin is 8.8 here. As per patient ER had checked his stools and it was okay. Denies any blood in the stools. He says sometimes he has black stools. Denies any headache, no blurred vision, no runny nose, no sore throat, no cough, no fever, no chills. He gets on and off chest pain below his left lower chest on and off going on for last 3 months. Currently no chest pain, no nausea, no abdominal pain. Normal bladder movements. Currently, resting comfortably and hemodynamically stable. ALLERGIES: PRASUGREL AND SOLU-MEDROL. PAST MEDICAL HISTORY: As mentioned above. PAST SURGICAL HISTORY: Cardiac catheterization, CABG, colonoscopy with biopsy, right and left heart catheterization, EGDs, EGD with biopsy, needle punch biopsy of prostate, small bowel endoscopy with biopsy, video capsule endoscopy. MEDICATIONS: The patient is on furosemide 80 mg p.o. daily, Enbrel injection subcutaneous weekly, omeprazole 20 mg p.o. b.i.d., oxygen 2 liters as directed, 2.5 liters through BiPAP at bedtime, metoprolol tartrate 25 mg p.o. b.i.d., probenecid 500 mg p.o. b.i.d., Victoza 1.2 mg under skin daily, atorvastatin 80 mg p.o. daily, Tresiba FlexTouch 100 units under skin daily, allopurinol 300 mg p.o. daily, Incruse Ellipta 1 puff, losartan 25 mg p.o. daily, NovoLog FlexPen 15 units with meals, Restasis 0.005% one drop b.i.d., tramadol 50 mg p.o. q. 6 hours p.r.n., albuterol 2 puffs every 4 hours p.r.n., nitroglycerin 0.4 mg p.r.n., omega 2 grams p.o. daily, aspirin 81 mg p.o. daily. FAMILY HISTORY: Significant for son has arthritis, diabetes. Father has lung disorder. Mother has mental disorder. Brother has asthma. SOCIAL HISTORY: . Former smoker, quit in 1987, smoked 2 packs a day for 10 years. No alcohol use, no drug use. REVIEW OF SYSTEMS: As per HPI. Rest of review of systems negative. PHYSICAL EXAMINATION: GENERAL: The patient is morbidly obese, not in acute distress. VITAL SIGNS: Temperature 37.1, pulse 55, respiratory rate 18, blood pressure 115/58, oxygen 97% on 2 liters. HEENT: Pupils equal, round, reactive to light. Oral mucosa moist. NECK: No JVD. No neck mass. CARDIOVASCULAR: S1, S2, regular rate and rhythm, no murmur, no gallop. RESPIRATORY SYSTEM: Normal AP diameter. No accessory muscle use. No wheezing, no crackles. ABDOMEN: Soft, bowel sounds present, nontender. No distention. CENTRAL NERVOUS SYSTEM: Cranial nerves II-XII are grossly nonfocal. EXTREMITIES: Bilateral lower extremity +2 edema present. LABORATORY DATA: WBC 8.5, hemoglobin 8.8, hematocrit 28, platelets 214. Sodium 137, potassium 4.1, chloride 104, bicarbonate 28, BUN 32, creatinine 2, serum glucose 105, calcium 7.9, phosphorus 2.6, magnesium 2, total bilirubin 0.4, AST 11, ALT 17, alkaline phosphatase 167. Troponin I less than 0.015. BNP 477. TSH 2.7. SARS-CoV-2 PCR negative. Influenza A and B PCR negative, RSV PCR negative. IMAGING: Chest x-ray, no acute findings seen. EKG: Sinus bradycardia with first degree AV block in the pattern of bigeminy at the rate of 58, nonspecific ST abnormalities seen. ASSESSMENT AND PLAN: This is a 79-year-old male who presents with shortness of breath and anemia. 1. Acute on chronic iron deficiency anemia due to chronic blood loss, hemoglobin is 8.8. The patient has symptomatic anemia. The patient is feeling short of breath on exertion. The patient says he generally gets 2 units of PRBCs and that helps him, request for blood transfusion. The patient is getting iron every other week. We will give 2 units of PRBC and Lasix in between and follow the labs and follow the response. 2. Obstructive sleep apnea, chronic respiratory failure on 2 liters oxygen, history of chronic obstructive pulmonary disease: Continue his home nebs and continue his 2 liters of oxygen through BiPAP at bedtime. We will monitor. 3. Morbid obesity, need counseling. 4. Henning's esophagus with dysplasia on PPI. 5. Chronic diastolic congestive heart failure, pulmonary hypertension. Continue his home diuretics. Monitor for volume overload. 6. Chronic kidney disease stage IV, creatinine of 2, which is baseline we will follow the labs. 7. Coronary artery disease status post stent, status post coronary artery bypass graft, on aspirin, Toprol-XL and statin. 8. Diabetes. We will place him on Lantus 6 units b.i.d. and insulin sliding scale. Follow the blood sugars. 9. Hypertension. Continue his losartan, Toprol-XL. We will monitor his blood pressure. 10. History of psoriasis and psoriatic arthropathy on Enbrel q. weekly. 11. hx of Mobitz type 1 heart block. Last admission cardiology reduced his metoprolol dose. Will monitor. 12. Deep venous thrombosis prophylaxis, sequential compression devices for now. 13. Disposition: Closely monitor in the med tele. Expect discharge home and follow with family doctor. PT and OT prior to discharge. Social service to help with discharge planning. HARIKA
--- NOTE | 2020-05-18 13:38 | Cardiology Consultation ---
Date of Consultation May 18, 2020 Assessment & Plan (1) Atrioventricular block, Mobitz type 1, Wenckebach: EKG performed 05/18/2020 at 1:03 AM reveals sinus bradycardia with Mobitz type I second-degree AV block, Wenckebach block. Repeat tracing at 748 reveals sinus rhythm with Mobitz type I second-degree AV block, and ventricular rate 43 bpm. In review of telemetry, at times, 2-1 AV block noted. At present, I believe the patient has multiple other potential causes of the shortness of breath besides the bradycardia. Agree with transfusion. We will update echocardiogram. Discontinue metoprolol. Monitor on telemetry. History of Present Illness Attending Physician: Lonnie Ervin MD History of Present Illness Mr Beltran is a 79-year-old male seen in cardiology consultation per the request of Dr. Ervin for the evaluation of shortness of breath and bradycardia. The patient's primary civil geotechnical engineer is Dr. Rolon of our practice. The patient has a history of obesity, BMI 46.8, kidney disease, coronary heart disease, psoriatic arthritis, and transfusion dependent anemia. He presented via the emergency room with progressive shortness of breath. Hemoglobin was 8.8 on presentation, and is up to 10.6 having received 2 units of packed red blood cells. Bradycardia noted on telemetry with 1 second-degree AV block (Wenckebach block) and intermittent episodes of 2-1 AV block, for the most part, the heart rate has been in the 50s, with occasional episodes down to the 40s. Patient denies lightheadedness or dizziness. Wenckebach block was previously noted at time of hospital stay in September,, prompting reduction in metoprolol tartrate dose from 50 mg twice daily to 25 mg twice daily at that time. Echocardiogram performed in September, was technically limited of the report, with grossly normal LVEF. Outpatient cardiology problem list: 1. Coronary artery disease, status post coronary bypass grafting surgery x3 in 2008, along with multiple PCIs to the RCA and patent RCA stents with 2 patent grafts by cardiac catheterization August 2016. 2. Chronic respiratory failure, on home O2, improved. 3. Severe anemia requiring transfusion while on dual antiplatelet therapy. 4. Stage III-IV chronic kidney disease with a baseline creatinine around 2. 5. Elevated BMI. 6. COPD. 7. Obstructive sleep apnea, on nocturnal CPAP. 8. Diabetes. 9. Dyslipidemia. Allergies Allergy/AdvReac Type Severity Reaction Status Date / Time methylprednisolone AdvReac Severe AMS Verified 10/13/19 22:52 hydromorphone [From Dilaudid] AdvReac Intermediate Nausea Verified 10/14/19 11:06 prednisone AdvReac Unknown INCREASE Verified 10/13/19 22:52 BLOOD SUGAR Home Medications Medication Instructions Recorded Confirmed Type [place]-3 Fish Oil 2 cap PO QAM 11/13/17 10/13/19 History Tresiba FlexTouch U-200 100 unit SUBCUT QAM 11/13/17 10/13/19 History aspirin [Aspir-81] 81 mg PO QAM 11/13/17 10/13/19 History atorvastatin 80 mg PO QPM 11/13/17 10/13/19 History fluticasone propionate [Flonase 2 spray INTRANASAL DAILY 11/13/17 10/13/19 History Allergy Relief] insulin aspart U-100 [Novolog 0 unit SUBCUT TID #0 11/13/17 10/13/19 History Flexpen U-100 Insulin] losartan 25 mg PO DAILY 11/13/17 10/13/19 History nitroglycerin [Nitrostat] 0.4 mg SUBLINGUAL UD PRN 11/13/17 10/13/19 History Enbrel SureClick 1 dose SUBCUT WK 04/10/18 10/13/19 History furosemide [Lasix] 80 mg PO QAM 04/20/18 10/13/19 History probenecid 500 mg PO BID 05/29/19 10/13/19 History Restasis 1 drp OPB Q12 10/13/19 10/13/19 History Victoza 3-Kei 1.2 mg SUBCUT DAILY 10/13/19 10/13/19 History metoprolol tartrate 25 mg PO BID #60 tab 10/14/19 Rx omeprazole 20 mg PO BID #60 tab 10/14/19 Rx Patient History Medical History Anemia Chest pain CHF (congestive heart failure) Chronic obstructive pulmonary disease Diabetes Diabetes mellitus, type 2 Diverticular disease GERD (gastroesophageal reflux disease) History of colon polyps Hyperlipidemia Hypertension Obesity On home oxygen therapy 2L N/C prn SOB Osteoarthritis Prostate cancer radiation seeds Psoriasis Shortness of breath on exertion oxygen 2L n/c prn Sleep apnea cpap--no oxygen Stage 4 chronic kidney disease Surgical History History of cardiac cath had 4 total--last 2015 @ [facility] History of colonoscopy History of esophagogastroduodenoscopy (EGD) History of heart artery stent x6 stents total History of prostate biopsy malignant History of tooth extraction S/P CABG x 3 2008 @ [facility]---follows with Dr. Rolon Status post LASIK surgery of both eyes Family History Other No family history of adverse response to anesthesia Social History Smoking Status: Former smoker Second Hand Exposure: No; Do You Dip or Chew Tobacco: No; Hx Alcohol Use: No Hx Substance Use: No Preferred Language: Spanish Communication Ability: Effective Director Informatics Required: No Beliefs That Will Affect Care: None marital status: Current Living Situation: Family Feels Safe at Home: Yes Safety Concerns: Feels Safe At This Time Assistive Devices: Glasses Physical Exam Physical Exam: Temp Pulse Resp BP Pulse Ox 36.8 C 64 20 118/52 L 97 05/18/20 12:03 05/18/20 12:03 05/18/20 12:03 05/18/20 12:03 05/18/20 12:03 Constitutional: Chronically ill in appearance, no acute distress, receiving second unit packed red blood cells at the time of my initial assessment. Respiratory: normal respiratory effort, lungs clear to auscultation Cardiovascular: RRR, no murmur, no edema Gastrointestinal (Abdomen): normal bowel sounds, soft, nontender, no hepatosplenomegaly Neurologic: PERRL, EOMI, accommodation nl, no face palsy, no dysarthria Results & Data ([facility]) Vital Signs (Past 12 Hours) Vital Signs Temp Pulse Pulse Resp BP BP Pulse Ox 05/18/20 12:03 36.8 C 64 20 118/52 L 97 05/18/20 10:53 36.6 C 52 L 16 121/52 L 96 05/18/20 10:10 36.4 C L 67 20 129/79 96 05/18/20 09:29 36.6 C 67 18 127/62 96 05/18/20 09:13 36.9 C 65 18 122/58 L 97 05/18/20 08:15 36.5 C 60 18 127/71 97 05/18/20 07:35 45 L 05/18/20 07:15 36.9 C 50 L 20 125/70 97 05/18/20 06:44 36.9 C 64 15 111/52 L 100 05/18/20 06:30 36.6 C 64 16 123/71 100 05/18/20 06:10 36.5 C 64 16 125/67 100 05/18/20 05:00 36.6 C 60 18 149/81 H 99 05/18/20 04:19 55 L 18 115/58 L 97 05/18/20 03:22 63 16 113/50 L 98 Laboratory Results Cardiac Enzymes 05/18/20 Range/Units 00:53 AST 11 L (15-37) U/L Troponin I < 0.015 (0-0.045) ng/ml CBC 05/18/20 05/18/20 Range/Units 00:53 12:53 WBC 8.51 7.51 (4.8-10.8) K/uL RBC 3.03 L 3.60 L (4.7-6.1) M/uL Hgb 8.8 L 10.6 L (14.0-18.0) g/dL Hct 28.0 L 32.9 L (42-52) % Plt Count 214 197 (130-400) K/uL Neut # (Auto) 6.55 H 5.95 (1.4-6.5) K/uL Lymph # (Auto) 1.21 1.07 L (1.2-3.4) K/uL Metcalfe # (Auto) 0.40 0.25 (0.11-0.59) K/uL Eos # (Auto) 0.31 0.21 (0-0.5) K/uL Baso # (Auto) 0.02 0.02 (0-0.2) K/uL Comprehensive Metabolic Panel 05/18/20 05/18/20 Range/Units 00:53 06:38 Sodium 137 138 (136-145) mmol/L Potassium 4.1 3.8 (3.5-5.1) mmol/L Chloride 104 107 (98-107) mmol/L Carbon Dioxide 28 27 (21-32) mmol/L BUN 32 H 33 H (7-18) mg/dl Creatinine 2.01 H 1.89 H (0.6-1.4) mg/dl Glucose 105 H 70 (70-99) mg/dl Calcium 7.9 L 7.7 L (8.5-10.1) mg/dl AST 11 L (15-37) U/L ALT 17 (12-78) U/L Alkaline Phosphatase 167 H (45-117) U/L Total Protein 6.7 (6.4-8.2) gm/dl Albumin 2.7 L (3.4-5.0) gm/dl Intake and Output 05/17/20 05/18/20 05/18/20 22:59 06:59 14:59 Intake Total 0 / 0 620 / 620 Output Total 300 / 300 Balance 0 / 0 320 / 320 Intake: Intake (Blood Product) Amt 0 / 0 620 / 620 Packed Cells, Leukoreduced 0 / 0 310 / 310 Unit [id number] Packed Cells, Leukoreduced 310 / 310 Unit [id number] Output: Urine 300 / 300 Other: Weight 123.6 kg Weight Measurement Method Standing Scale
--- NOTE | 2020-05-18 13:42 | Electrocardiogram Report ---
Test Reason : Blood Pressure : / mmHG Vent. Rate : 058 BPM Atrial Rate : 058 BPM P-R Int : 328 ms QRS Dur : 072 ms QT Int : 452 ms P-R-T Axes : 067 061 074 degrees QTc Int : 443 ms Sinus bradycardia with second degree A-V block (Mobitz I) Low voltage QRS Abnormal ECG When compared with ECG of 13-OCT-2019 20:52, No significant change Confirmed by Tyler Aguirre ([id number]) on 05/18/2020 1:42:24 PM Referred By: REFERRED SELF Confirmed By:Tyler Aguirre
--- NOTE | 2020-05-18 13:46 | Electrocardiogram Report ---
Test Reason : Blood Pressure : / mmHG Vent. Rate : 043 BPM Atrial Rate : 069 BPM P-R Int : 000 ms QRS Dur : 080 ms QT Int : 488 ms P-R-T Axes : 053 044 049 degrees QTc Int : 412 ms Sinus rhythm with 2nd degree A-V block (Mobitz I) with 2:1 A-V conduction Abnormal ECG When compared with ECG of 18-MAY-2020 01:03, HR has decreased by 15 bpm Otherwise no significant change Confirmed by Tyler Aguirre ([id number]) on 05/18/2020 1:46:41 PM Referred By: REFERRED SELF Confirmed By:Tyler Aguirre
[2020-05-18] MEDS ORDERED: ATORVASTATIN 40 MG TAB PO SCH (21:00)
[2020-05-19] MEDS: HEPARIN 100 UNIT/ML 5ML FLUSH FLUSH PRN (05:44)
[2020-05-19 06:15] LABS: Basophils # (auto) 0.02 K/uL (0-0.2); Basophils % (auto) 0.3 %; Eosinophils % (auto) 5.3 %; Hematocrit (blood only) 33.1 % (42-52); Hemoglobin 10.6 g/dL (14.0-18.0); Immature Granulocytes # (auto) 0.02 K/uL (0.00-0.02); Immature Granulocytes % (auto) 0.3 %; Lymphocytes # (auto) 1.32 K/uL (1.2-3.4); Lymphocytes % (auto) 17.4 %; Mean Corpuscular Hemoglobin 29.4 pg (25-34); Mean Corpuscular Volume 91.7 fL (80-100); Mean Platelet Volume 9.2 fL (7.4-10.4); Monocytes # (auto) 0.35 K/uL (0.11-0.59); Monocytes % (auto) 4.6 %; Neutrophils # (auto) 5.48 K/uL (1.4-6.5); Neutrophils % (auto) 72.1 %; Platelet Count 212 K/uL (130-400); RDW Coefficient of Variation 16.6 % (11.5-14.5); RDW Standard Deviation 54.7 fL (36.4-46.3); Red Blood Count 3.61 M/uL (4.7-6.1); White Blood Count 7.59 K/uL (4.8-10.8)
[2020-05-19 06:37] LABS: Estimated Average Glucose 108 mg/dl; Hemoglobin A1C 5.4 % (4.5-5.6)
[2020-05-19 06:51] LABS: BUN Creatinine Ratio 17.5 (10-20); Calcium 8.2 mg/dl (8.5-10.1); Creatinine Clr Calc Pharmacy 35.2 ml/min; Est GFR (African American) 34.2; Est GFR (Non-African American) 29.5; Magnesium 2.3 mg/dl (1.8-2.4); Potassium 3.9 mmol/L (3.5-5.1)
[2020-05-19 06:54] LABS: Phosphorus 3.6 mg/dl (2.5-4.9)
[2020-05-19] MEDS: PANTOprazole 40 MG TAB PO SCH (08:07)
[2020-05-19] MEDS: FUROSEMIDE 80 MG TAB PO SCH (08:07)
[2020-05-19] MEDS: PROBENECID 500 MG TAB PO SCH (08:07)
[2020-05-19] MEDS: FLUTICASONE PROPIONATE NA SPR 16 GM BTL SCH (08:07)
[2020-05-19] MEDS: ASPIRIN 81 MG ECTAB PO SCH (08:07)
[2020-05-19] MEDS: LOSARTAN POTASSIUM 25 MG TAB PO SCH (08:07)
[2020-05-19] MEDS: INSULIN ASPART 100 UNITS/ML 3 ML PEN SC SCH ×2 (08:08→12:04)
[2020-05-19] MEDS: INSULIN GLARGINE SOLOSTAR 100 UNITS/ML 3 ML PEN SC SCH (08:08)
[2020-05-19] MEDS: RESTASIS~ORDER AWAITING ACTION SCH (09:20)
--- NOTE | 2020-05-19 10:54 | Hospitalist Progress Note ---
Date of Service May 19, 2020 Assessment & Plan (1) Symptomatic anemia: Has been complaining of increasing shortness of breath with exertion for the last 2 weeks History of recurrent blood transfusion secondary to symptomatic anemia due to chronic GI blood loss He has been on intravenous iron as an outpatient His hemoglobin was 8.8 on admission Has been getting 2 units of PRBC to maintain the hemoglobin above 10 We will repeat CBC in following blood transfusion Hemoglobin went up to 10.6 following transfusion Denies any significant symptoms following transfusion except exertional dyspnea which has been ongoing (2) Chronic blood loss anemia: Has history of Henning's esophagus Chronic GI blood loss from that We will continue PPI and iron infusion as an outpatient (3) Chest pain: Has been complaining of occasional chest pressure and palpitation for the last 2 weeks Symptoms are worse following mild physical exertion Has significant cardiac history of CAD, CABG and status post stent placement He has been having second-degree type I block in EKG Troponin on admission was not elevated [employer] Supervisor consulted-appreciate input and recommendation Type I second-degree AV block Beta-marciano has been started Monitor in telemetry unit for tonight Heart rate remains around 60s per minute Discontinued his beta-marciano (4) CKD (chronic kidney disease), stage III: History of chronic kidney disease stage III-IV We will monitor PRP (5) Diabetes mellitus type 2 in obese: We will continue with SSI Check hemoglobin A1c-5.4 (6) COPD (chronic obstructive pulmonary disease): Doubt any acute exacerbation We will continue his home medications (7) CHF (congestive heart failure): Does not have any acute CHF proBNP is 447 (8) Prostate cancer: No acute problem DVT prophylaxis SCDs CODE STATUS Full Will be discharging home this afternoon Admission and Anticipated Discharge Date Admission Date: May 18, 2020 Subjective 05/18/2020 The patient was seen and examined in medical telemetry unit He has chronic GI bleed with history of CAD status post CABG and stent placement in the past He has been complaining of chest pain, palpitation, exertional shortness of breath and weakness for the last 2 weeks He was admitted with symptomatic anemia and has been getting blood transfusion 05/19/2020 The patient was seen and examined in medical telemetry unit He complains today of shortness of breath minimal exertion Denies any chest pain and/or palpitation His heart rate remains stable Review of Systems Review of Systems: All systems reviewed and are unremarkable except as noted below Respiratory: + dyspnea on exertion and + wheezing Cardiovascular: + dyspnea on exertion; no chest pain and no palpitations Physical Exam Physical Exam: Sitting on a chair without any apparent distress at rest Constitutional: well developed, well nourished and + morbidly obese; not ill appearing Eyes: PERRL, conjunctivae normal, anicteric sclerae ENMT: external ear and nose normal, oropharynx normal Neck: trachea midline, no thyromegaly Respiratory: no respiratory distress Auscultation: + diminished lung sounds and + crackles (Minimal crackles at the bases) Cardiovascular: Rate/Rhythm: + irregularly irregular Heart Sounds: + murmur (2/6 ejection systolic murmur over precordium) Extremities: + edema (1+ bilateral edema of the legs) Gastrointestinal (Abdomen): Inspection/Auscultation: + abdomen distended and normal bowel sounds Percussion/Palpation: abdomen soft; abdomen nontender Musculoskeletal: No acute arthritis in any joint Neurologic: Alert and oriented x3 Lymphatic: no cervical or axillary lymphadenopathy Results & Data Results & Data ([facility]) Vital Signs (Past 12 Hours) Vital Signs Temp Pulse Pulse Resp BP BP Pulse Ox 05/19/20 08:00 69 05/19/20 07:27 36.5 C 66 18 135/62 99 05/19/20 03:34 36.8 C 67 18 152/66 H 98 05/19/20 00:11 46 L Laboratory Results Short CBC 05/18/20 05/19/20 Range/Units 12:53 05:44 WBC 7.51 7.59 (4.8-10.8) K/uL Hgb 10.6 L 10.6 L (14.0-18.0) g/dL Hct 32.9 L 33.1 L (42-52) % Plt Count 197 212 (130-400) K/uL BMP 05/18/20 05/19/20 06:38 05:44 Sodium 138 139 Potassium 3.8 3.9 Chloride 107 106 Carbon Dioxide 27 30 BUN 33 H 37 H Creatinine 1.89 H 2.10 H Glucose 70 79 Calcium 7.7 L 8.2 L Medications Administered Current Inpatient Medications Acetaminophen (Acetaminophen 325 Mg Tab) 650 mg PO Q4H PRN PRN Reason: Pain or Fever Stop: 06/17/20 04:57 Aspirin (Aspirin 81 Mg Ectab) 81 mg PO QAM [facility] Stop: 06/17/20 08:59 Last Admin: 05/19/20 08:07 Dose: 81 mg Documented by: Atorvastatin Calcium (Atorvastatin 40 Mg Tab) 80 mg PO QPM [facility] Stop: 06/17/20 20:59 Last Admin: 05/18/20 20:28 Dose: 80 mg Documented by: Dextrose (Dextrose 50% 50 Ml Syringe) 25 - 50 ml IV UD PRN; Protocol PRN Reason: Hypoglycemia Protocol Stop: 06/17/20 05:29 Fluticasone Propionate (Fluticasone Propionate Na Spr 16 Gm Btl) 2 sprays NA DAILY [facility] Stop: 06/17/20 08:59 Last Admin: 05/19/20 08:07 Dose: 2 sprays Documented by: Furosemide (Furosemide 80 Mg Tab) 80 mg PO QAM [facility] Stop: 06/17/20 08:59 Last Admin: 05/19/20 08:07 Dose: 80 mg Documented by: Glucagon (Glucagon For Inj 1 Mg Vial) 1 mg SQ UD PRN; Protocol PRN Reason: Hypoglycemia Protocol Stop: 06/17/20 05:29 Glucose (Glucose 40% Gel 15 Gm Tube) 15 - 30 gm PO UD PRN; Protocol PRN Reason: Hypoglycemia Protocol Stop: 06/17/20 05:29 Glucose (Glucose 10 Tabs/Tube) 4 - 8 tabs PO UD PRN; Protocol PRN Reason: Hypoglycemia Protocol Stop: 06/17/20 05:29 Heparin Sodium (Porcine) (Heparin 100 Unit/Ml 5ml Flush) 5 ml FLUSH PRN PRN PRN Reason: Flush Stop: 06/17/20 05:06 Last Admin: 05/19/20 05:44 Dose: 5 ml Documented by: Insulin Aspart (Insulin Aspart 100 Units/Ml 3 Ml Pen) 0 units SC ACHS [facility] Stop: 06/17/20 07:29 Last Admin: 05/19/20 08:08 Dose: Not Given Documented by: Insulin Glargine (Insulin Glargine Solostar 100 Units/Ml 3 Ml Pen) 7 units SC BID [facility] Stop: 06/17/20 08:59 Last Admin: 05/19/20 08:08 Dose: 7 units Documented by: Losartan Potassium (Losartan Potassium 25 Mg Tab) 25 mg PO DAILY [facility] Stop: 06/17/20 08:59 Last Admin: 05/19/20 08:07 Dose: 25 mg Documented by: Miscellaneous (Restasis~Order Awaiting Action) 1 ea N/A QS [facility] Stop: 06/17/20 07:59 Last Admin: 05/19/20 09:20 Dose: Not Given Documented by: Miscellaneous (Carbohydrates For Hypoglycemia ) 15 - 30 gm PO UD PRN PRN Reason: Hypoglycemia Treatment Stop: 06/17/20 05:29 Nitroglycerin (Nitroglycerin Sl 0.4 Mg/Tab Tab) 0.4 mg SL UD PRN PRN Reason: Chest Pain Stop: 06/17/20 04:57 Ondansetron HCl (Ondansetron Inj 2 Mg/Ml 2 Ml Vial) 4 mg IV Q6H PRN PRN Reason: Nausea Stop: 06/17/20 04:57 Pantoprazole Sodium (Pantoprazole 40 Mg Tab) 40 mg PO BID [facility] Stop: 06/17/20 08:59 Last Admin: 05/19/20 08:07 Dose: 40 mg Documented by: Polyethylene Glycol (Polyethylene (Miralax) 17 Gm Pack) 17 gm PO DAILY PRN PRN Reason: Constipation Stop: 06/17/20 04:57 Probenecid (Probenecid 500 Mg Tab) 500 mg PO BID [facility] Stop: 06/17/20 08:59 Last Admin: 05/19/20 08:07 Dose: 500 mg Documented by: (1) Chest pain Chest pain type: unspecified Qualified Code(s): R07.9 - Chest pain, unspecified
--- NOTE | 2020-05-19 11:04 | Communication Note ---
Date of Service: May 19, 2020 By CMS guidelines, a determination that the admission or continued stay is not medically necessary has been made by a member of the UR committee and a physi cecil for this hospital stay, therefore a Code 44 will be completed and the Inpatient admission will be changed to outpatient.
[2020-05-19] MEDS ORDERED: METOPROLOL TARTRATE 25 MG TAB PO SCH (11:15)
--- NOTE | 2020-05-19 12:39 | Cardiology Progress Note ---
Date of Service May 19, 2020 Assessment & Plan (1) Atrioventricular block, Mobitz type 1, Wenckebach: Telemetry reveals sinus rhythm with long first-degree AV block in the 60s. Overnight last night, recurrent Mobitz type I second-degree AV block (Wenckebach block) noted, although yesterday, there were several episodes that were concerning for 2-1 AV block. Metoprolol has been held. It is noted that the previous dose of metoprolol tartrate 50 mg twice daily had been reduced at the time of his September, admission due to similar concerns. He has a longstanding history of being on beta-marciano, previously at much higher doses. I am concerned that if I discontinue the beta-marciano completely, he will be at risk for atrial arrhythmias. We will therefore titrate down the dose to metoprolol tartrate 12.5 mg twice daily. Plan for discharge with outpatient 7 day Zio front desk monitor for reassessment while on the lower dose. At this time, I do not feel his heart rate is responsible for his shortness of breath. He watches his heart rate and pulse oximetry with a home monitor, he tells me his heart rate is typically registering in the 50 to 60 bpm range. The most significant bradycardia episodes while hospitalized occurred while he was sleeping, when his heart rates were down to 40s, but this is acceptable. During waking hours, heart rates appear stable. His lung baseline first-degree AV block however does raise concern for underlying conduction system disease that will need to be followed in the long- term. Admission and Anticipated Discharge Date Admission Date: May 18, 2020 Subjective Patient seen in cardiology follow-up of bradycardia and shortness of breath. Patient subjectively feels like his shortness of breath is improved post rodgers sfusion of 2 units of packed red blood cells. Review of Systems Review of Systems: All systems reviewed & are unremarkable except as noted in HPI & below Physical Exam Physical Exam: Temp Pulse Resp BP Pulse Ox 36.6 C 70 18 121/62 99 05/19/20 11:40 05/19/20 12:23 05/19/20 11:40 05/19/20 12:23 05/19/20 11:40 Constitutional: WD/WN, vitals as above Respiratory: normal respiratory effort, lungs clear to auscultation Cardiovascular: RRR, no murmur, no edema Results & Data ([facility]) Vital Signs (Past 12 Hours) Vital Signs Temp Pulse Pulse Resp BP BP Pulse Ox 05/19/20 12:23 70 121/62 05/19/20 11:40 36.6 C 64 18 135/62 150/73 H 99 05/19/20 11:11 36.6 C 64 18 150/73 H 99 05/19/20 08:00 69 05/19/20 07:27 36.5 C 66 18 135/62 99 05/19/20 03:34 36.8 C 67 18 152/66 H 98 Laboratory Results CBC 05/18/20 05/19/20 Range/Units 12:53 05:44 WBC 7.51 7.59 (4.8-10.8) K/uL RBC 3.60 L 3.61 L (4.7-6.1) M/uL Hgb 10.6 L 10.6 L (14.0-18.0) g/dL Hct 32.9 L 33.1 L (42-52) % Plt Count 197 212 (130-400) K/uL Neut # (Auto) 5.95 5.48 (1.4-6.5) K/uL Lymph # (Auto) 1.07 L 1.32 (1.2-3.4) K/uL [place] # (Auto) 0.25 0.35 (0.11-0.59) K/uL Eos # (Auto) 0.21 0.40 (0-0.5) K/uL Baso # (Auto) 0.02 0.02 (0-0.2) K/uL Comprehensive Metabolic Panel 05/18/20 05/19/20 Range/Units 06:38 05:44 Sodium 138 139 (136-145) mmol/L Potassium 3.8 3.9 (3.5-5.1) mmol/L Chloride 107 106 (98-107) mmol/L Carbon Dioxide 27 30 (21-32) mmol/L BUN 33 H 37 H (7-18) mg/dl Creatinine 1.89 H 2.10 H (0.6-1.4) mg/dl Glucose 70 79 (70-99) mg/dl Calcium 7.7 L 8.2 L (8.5-10.1) mg/dl Intake and Output 05/18/20 05/19/20 05/19/20 22:59 06:59 14:59 Intake Total 340 / 1460 100 / 1460 Balance 340 / 1160 100 / 1160 Intake: Oral 340 / 840 100 / 840 Other: Weight 122.3 kg 122.3 kg Weight Measurement Method Standing Scale Patient Weight 05/20/20 06:59 Weight 122.3 kg
--- NOTE | 2020-05-19 18:21 | Discharge Summary ---
Date of Service May 19, 2020 Admission HPI Per Admitting Provider DICTATED BY: Harsh Peterson MD DATE OF ADMISSION: 05/18/2020 CHIEF COMPLAINT: Shortness of breath, symptomatic anemia. HISTORY OF PRESENT ILLNESS: This is a 79-year-old male with past medical history significant for type 2 diabetes, chronic respiratory failure with hypoxia on 2 liters oxygen, sleep apnea, CPAP q. at bedtime, hyperlipidemia, gout, history of chronic obstructive pulmonary disease, pulmonary hypertension, chronic diastolic CHF, CAD status post stent, status post CABG, Henning's esophagus with dysplasia, chronic kidney disease stage IV, BPH, generalized osteoarthritis, iron deficiency anemia due to chronic blood loss, psoriasis, psoriatic arthropathy, presents with shortness of breath and anemia. The patient says he is getting short of breath lately, walking to his bathroom make him short of breath and he checked outpatient labs showed hemoglobin of 9.1 and that is why he came here and his hemoglobin is 8.8 here. As per patient ER had checked his stools and it was okay. Denies any blood in the stools. He says sometimes he has black stools. Denies any headache, no blurred vision, no runny nose, no sore throat, no cough, no fever, no chills. He gets on and off chest pain below his left lower chest on and off going on for last 3 months. Currently no chest pain, no nausea, no abdominal pain. Normal bladder movements. Currently, resting comfortably and hemodynamically stable. Admission Exam Per Admitting Provider GENERAL: The patient is morbidly obese, not in acute distress. VITAL SIGNS: Temperature 37.1, pulse 55, respiratory rate 18, blood pressure 115/58, oxygen 97% on 2 liters. HEENT: Pupils equal, round, reactive to light. Oral mucosa moist. NECK: No JVD. No neck mass. CARDIOVASCULAR: S1, S2, regular rate and rhythm, no murmur, no gallop. RESPIRATORY SYSTEM: Normal AP diameter. No accessory muscle use. No wheezing, no crackles. ABDOMEN: Soft, bowel sounds present, nontender. No distention. CENTRAL NERVOUS SYSTEM: Cranial nerves II-XII are grossly nonfocal. EXTREMITIES: Bilateral lower extremity +2 edema present. Principal Diagnosis Symptomatic anemia status post 2 unit of PRBC, chronic blood loss anemia, COPD, sleep apnea on CPAP, second-degree Mobitz type I AV block, obesity Discharge Exam Constitutional well developed, well nourished and + morbidly obese; not ill appearing Eyes PERRL, conjunctivae normal, anicteric sclerae ENMT external ear and nose normal, oropharynx normal Neck trachea midline, no thyromegaly Respiratory no respiratory distress Auscultation: + diminished lung sounds and + crackles (Minimal crackles at the bases) Cardiovascular Rate/Rhythm: + irregularly irregular Heart Sounds: + murmur (2/6 ejection systolic murmur over precordium) Extremities: + edema (1+ bilateral edema of the legs) Gastrointestinal (Abdomen) Inspection/Auscultation: + abdomen distended and normal bowel sounds Percussion/Palpation: abdomen soft; abdomen nontender Lymphatic no cervical or axillary lymphadenopathy Discharge Data Allergies Allergy/AdvReac Type Severity Reaction Status Date / Time methylprednisolone AdvReac Severe AMS Verified 10/13/19 22:52 hydromorphone [From Dilaudid] AdvReac Intermediate Nausea Verified 10/14/19 11:06 prednisone AdvReac Unknown INCREASE Verified 10/13/19 22:52 BLOOD SUGAR Consultations 05/18/20 02:14 ED Decision to Admit Stat 05/18/20 09:58 Consult Cardiology Routine Hospital Course (1) Symptomatic anemia: Has been complaining of increasing shortness of breath with exertion for the last 2 weeks History of recurrent blood transfusion secondary to symptomatic anemia due to chronic GI blood loss He has been on intravenous iron as an outpatient His hemoglobin was 8.8 on admission Has been getting 2 units of PRBC to maintain the hemoglobin above 10 We will repeat CBC in following blood transfusion Hemoglobin went up to 10.6 following transfusion Denies any significant symptoms following transfusion except exertional dyspnea which has been ongoing (2) Chronic blood loss anemia: Has history of Henning's esophagus Chronic GI blood loss from that We will continue PPI and iron infusion as an outpatient (3) Chest pain: Has been complaining of occasional chest pressure and palpitation for the last 2 weeks Symptoms are worse following mild physical exertion Has significant cardiac history of CAD, CABG and status post stent placement He has been having second-degree type I block in EKG Troponin on admission was not elevated Switch Technician consulted-appreciate input and recommendation Type I second-degree AV block Beta-marciano has been started Monitor in telemetry unit for tonight Heart rate remains around 60s per minute Discontinued his beta-marciano (4) CKD (chronic kidney disease), stage III: History of chronic kidney disease stage III-IV We will monitor PRP (5) Diabetes mellitus type 2 in obese: We will continue with SSI Check hemoglobin A1c-5.4 (6) COPD (chronic obstructive pulmonary disease): Doubt any acute exacerbation We will continue his home medications (7) CHF (congestive heart failure): Does not have any acute CHF proBNP is 447 (8) Prostate cancer: No acute problem DVT prophylaxis SCDs CODE STATUS Full Will be discharging home this afternoon Total Time Total Time Spent Total Time Spent (In Minutes): 35 minutes Total Time Includes: Examination of the Patient, Discharge Planning, Medication Reconciliation and Communication With Other Providers Discharge Plan Discharge Items Patient Disposition: Home - Self-Care Reason For Visit: SOB, ANEMIA Discharge Diagnosis: Symptomatic anemia status post 2 unit of PRBC, chronic blood loss anemia, COPD, sleep apnea on CPAP, second-degree Mobitz type I AV block, obesity Condition on Discharge: Fair Activity: Resume your previous activity Non-emergency contact: Primary Care Provider Call non-emergency contact if: you have any medication questions and your symptoms worsen Follow-up/Referrals: Levy Stout MD [Primary Care Provider] - (Date & Time 05/22/2020 3:00 PM Provider Levy Stout MD Department Internal Medicine [facility] ) Diet: Carb Consistent or DM2, Heart Healthy and Low Sodium (2gm) Addtl Attending Provider Instructions: Please take precaution to avoid falls Your metoprolol dose has been decreased to 12.5 mg twice daily Please keep appointments with 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 Continue home oxygen as advised Pending Studies at Discharge: No Stand-Alone Forms: My [facility], Smoking Cessation Medications and DC Order Prescriptions: New metoprolol tartrate 25 mg Tablet 12.5 mg PO BID Qty: 30 RF: 0 Continued Enbrel SureClick 50 mg/mL (0.98 mL) Pen Injector 1 dose subcut WK RF: 0 furosemide [Lasix] 80 mg Tablet 80 mg PO QAM RF: 0 Tresiba FlexTouch U-200 200 unit/mL (3 mL) Insulin Pen 100 unit SUBCUT QAM RF: 0 insulin aspart U-100 [Novolog Flexpen U-100 Insulin] 100 unit/mL (3 mL) Insulin Pen 0 unit SUBCUT TID Qty: 0 RF: 0 losartan 25 mg Tablet 25 mg PO DAILY RF: 0 atorvastatin 80 mg Tablet 80 mg PO QPM RF: 0 [place]-3 Fish Oil 300-1,000 mg Capsule 2 cap PO QAM RF: 0 nitroglycerin [Nitrostat] 0.4 mg Tablet, Sublingual 0.4 mg Sublingual UD PRN (Reason: Chest Pain) RF: 0 fluticasone propionate [Flonase Allergy Relief] 50 mcg/actuation [place],Suspension 2 spray INTRANASAL DAILY RF: 0 aspirin [Aspir-81] 81 mg Tablet,Delayed Release (Dr/Ec) 81 mg PO QAM RF: 0 probenecid 500 mg tablet 500 mg PO BID RF: 0 Restasis 0.05 % dropperette 1 drp OPB Q12 RF: 0 Victoza 3-Kei 0.6 mg/0.1 mL (18 mg/3 mL) pen injector 1.2 mg SUBCUT DAILY RF: 0 omeprazole 20 mg Tablet,Delayed Release (Dr/Ec) 20 mg PO BID Qty: 60 RF: 1 Changed metoprolol tartrate 25 mg Tablet 12.5 mg PO BID Qty: 60 RF: 1 Discharge Orders: Discharge Order (Routine); Ordered 05/19/20 Ordered By: Lonnie Ervin Admission Data Admit Date/Time: 05/18/20 03:28 Attending Provider: Lonnie Ervin Admit Provider: Harsh Peterson Primary Care Provider: Levy Stout Other Providers: Harsh Peterson ; Ga Arevalo Other Interventions: Discharge Summary Assessment (RN) Last Done: 05/19/20 11:40
== END 2020-05-19 13:55 | disposition home or self-care (01) | DRG 812 ==
LOC: ED 23:36 → 2N 05-18 03:28 → INTOOBSV 05-18 03:28 → 2N 05-18 04:19

== ENCOUNTER 2020-06-09 11:28 | Inpatient (IN) ==
[2020-06-09] MEDS ORDERED: SODIUM CHLORIDE 0.9% 250 ML IV PRN ×2 (11:50→16:19)
[2020-06-09 12:29] LABS: Basophils # (auto) 0.03 K/uL (0-0.2); Basophils % (auto) 0.3 %; Eosinophils # (auto) 0.24 K/uL (0-0.5); Eosinophils % (auto) 2.6 %; Hematocrit (blood only) 27.4 % (42-52); Hemoglobin 8.7 g/dL (14.0-18.0); Immature Granulocytes # (auto) 0.03 K/uL (0.00-0.02); Immature Granulocytes % (auto) 0.3 %; Lymphocytes # (auto) 1.13 K/uL (1.2-3.4); Lymphocytes % (auto) 12.4 %; Mean Corpuscular Hemoglobin 29.2 pg (25-34); Mean Corpuscular Hgb Conc 31.8 g/dL (32-36); Mean Corpuscular Volume 91.9 fL (80-100); Mean Platelet Volume 9.2 fL (7.4-10.4); Monocytes # (auto) 0.25 K/uL (0.11-0.59); Monocytes % (auto) 2.7 %; Neutrophils # (auto) 7.42 K/uL (1.4-6.5); Neutrophils % (auto) 81.7 %; Platelet Count 283 K/uL (130-400); RDW Coefficient of Variation 17.5 % (11.5-14.5); RDW Standard Deviation 57.8 fL (36.4-46.3); Red Blood Count 2.98 M/uL (4.7-6.1)
--- NOTE | 2020-06-09 12:30 | XRay Report ---
XR chest 1V portable CLINICAL HISTORY: Dyspnea COMPARISON STUDY: Chest radiograph May 18, 2020. FINDINGS: Lung volumes are normal. Lungs are clear. There is no pneumothorax or pleural effusion. Car diomegaly is unchanged. Mediastinal contours are normal. There is no evidence for pulmonary edema. Le ft subclavian [id number], median sternotomy wires and mediastinal surgical clips are noted. IMPRESSION: No acute cardiopulmonary findings. No change in appearance of the chest. ACT 112: Negative or not required by law. Electronically signed by: Vitaly Tadeo M.D. 06/09/2020 12:28 PM
[2020-06-09 12:48] LABS: Partial Thromboplastin Ratio 1.1; Partial Thromboplastin Time 30.2 Seconds (21.0-31.0); Prothrombin Time 10.5 Seconds (9.0-12.0)
[2020-06-09 12:50] LABS: Alanine Aminotransferase 15 U/L (12-78); Albumin Level 2.7 gm/dl (3.4-5.0); Aspartate Aminotransferase 8 U/L (15-37); BUN Creatinine Ratio 18.3 (10-20); Blood Urea Nitrogen 35 mg/dl (7-18); Calcium 7.9 mg/dl (8.5-10.1); Carbon Dioxide 27 mmol/L (21-32); Chloride 105 mmol/L (98-107); Creatinine Clr Calc Pharmacy 38.2 ml/min; Est GFR (African American) 38.1; Est GFR (Non-African American) 32.8; Glucose 119 mg/dl (70-99); Potassium 3.8 mmol/L (3.5-5.1); Sodium 137 mmol/L (136-145)
[2020-06-09 12:55] LABS: Albumin Globulin Ratio 0.6 (0.9-2); Alkaline Phosphatase 142 U/L (45-117); Bilirubin,Total 0.5 mg/dl (0.2-1); Globulin 4.2 gm/dl (2.5-4.0); Total Protein 6.9 gm/dl (6.4-8.2); Troponin I < 0.015 ng/ml (0-0.045)
--- NOTE | 2020-06-09 13:57 | Cardiology Consultation ---
Date of Consultation June 09, 2020 Assessment & Plan (1) High-grade atrioventricular block: (2) Symptomatic bradycardia: (3) Symptomatic anemia: (4) SOB (shortness of breath): (5) Sleep apnea: (6) Coronary artery disease: (7) TIA (transient ischemic attack): (8) Hx of CABG: (9) CKD (chronic kidney disease), stage IV: (10) Diabetes mellitus type 2 in obese: (11) Morbid obesity: (12) COPD (chronic obstructive pulmonary disease): Given ongoing symptoms and findings of high-grade block on only low-dose beta-marciano that is necessary for chronic stable angina I believe the most prudent course of action at this point would be for permanent pacemaker placement. Admit to telemetry. Hold beta-blockade, may require nitrates for chest pain. From a cardiac standpoint with ongoing chronic stable angina recommend maintaining hemoglobin greater than 10 N.p.o. after midnight and I will discuss with my electrophysiology colleagues on timing of pacemaker placement. Would also want echocardiogram updated at this time. History of Present Illness Reason for Consultation: High-grade AV block. Requesting Physician: Dr. Blanco [facility] History of Present Illness Mr. Panchal is a very pleasant and medically complex 79-year-old gentleman who I follow closely as an outpatient for his history of coronary artery disease and chronic stable angina. He was most recently admitted to [facility] earlier this month with symptomatic anemia. At that time he was noted to have significant bradycardia on telemetry including occasional Mobitz 1 and Mobitz 2 heart block. At that time his chronic metoprolol which is used for his chronic stable angina was decreased. Outpatient telemetry then revealed 30 episodes of high-grade AV block with significant bradycardia. He was contacted by my office today to review these results and states that he is not feeling well at all despite his most recent transfusion. He states he is very tired and with intermittent left-sided dull chest discomfort. Given the above findings it was recommended that he proceed to the emergency department. Upon arrival he was again found to be bradycardic but likely his hemoglobin is stable. PAST MEDICAL HISTORY: 1.Coronary artery disease, status post coronary bypass grafting surgery x3 in 2008, along with multiple PCIs to the RCA and patent RCA stents with 2 patent grafts by cardiac catheterization August 2016. 2.Chronic respiratory failure, on home O2, improved. 3.Severe anemia requiring transfusion while on dual antiplatelet therapy. 4.Stage III-IV chronic kidney disease with a baseline creatinine around 2. 5.Elevated BMI. 6.COPD. 7.Obstructive sleep apnea, on nocturnal CPAP. 8.Diabetes. 9.Dyslipidemia. Allergies Allergy/AdvReac Type Severity Reaction Status Date / Time methylprednisolone AdvReac Severe AMS Verified 06/09/20 12:41 hydromorphone [From Dilaudid] AdvReac Intermediate Nausea Verified 06/09/20 12:41 prednisone AdvReac Unknown INCREASE Verified 06/09/20 12:41 BLOOD SUGAR Home Medications Medication Instructions Recorded Confirmed Type [place]-3 Fish Oil 2 cap PO QAM 11/13/17 06/09/20 History Tresiba FlexTouch U-200 100 unit SUBCUT QAM 11/13/17 06/09/20 History atorvastatin 80 mg PO QPM 11/13/17 06/09/20 History fluticasone propionate [Flonase 2 spray INTRANASAL DAILY 11/13/17 06/09/20 History Allergy Relief] insulin aspart U-100 [Novolog 50 unit SUBCUT TIDM #0 11/13/17 06/09/20 History Flexpen U-100 Insulin] losartan 25 mg PO DAILY 11/13/17 06/09/20 History nitroglycerin [Nitrostat] 0.4 mg SUBLINGUAL UD PRN 11/13/17 06/09/20 History Enbrel SureClick 1 dose SUBCUT WK 04/10/18 06/09/20 History furosemide [Lasix] 80 mg PO QAM 04/20/18 06/09/20 History probenecid 500 mg PO BID 05/29/19 06/09/20 History Restasis 1 drp OPB Q12 10/13/19 06/09/20 History Victoza 3-Kei 1.2 mg SUBCUT DAILY 10/13/19 06/09/20 History omeprazole 20 mg PO BID #60 tab 10/14/19 06/09/20 Rx metoprolol tartrate 12.5 mg PO BID #60 tab 05/19/20 06/09/20 Rx albuterol sulfate 2 puff INHALATION Q4 PRN 06/09/20 06/09/20 History allopurinol 300 mg PO DAILY 06/09/20 06/09/20 History aspirin [Aspirin Low Dose] 81 mg PO DAILY 06/09/20 06/09/20 History fluorometholone 1 drp OPHTHALMIC (EYE) TID 06/09/20 06/09/20 History folic acid 1 mg PO DAILY 06/09/20 06/09/20 History tramadol 50 mg PO Q6H PRN 06/09/20 06/09/20 History triamcinolone acetonide 1 applic TOPICAL BID 06/09/20 06/09/20 History umeclidinium [Incruse Ellipta] 1 inh INHALATION DAILY 06/09/20 06/09/20 History Patient History Medical History Anemia Chest pain CHF (congestive heart failure) Chronic obstructive pulmonary disease Diabetes Diabetes mellitus, type 2 Diverticular disease GERD (gastroesophageal reflux disease) History of colon polyps Hyperlipidemia Hypertension Obesity On home oxygen therapy 2L N/C prn SOB Osteoarthritis Prostate cancer radiation seeds Psoriasis Shortness of breath on exertion oxygen 2L n/c prn Sleep apnea cpap--no oxygen Stage 4 chronic kidney disease Surgical History History of cardiac cath had 4 total--last 2016 @ [facility] History of colonoscopy History of esophagogastroduodenoscopy (EGD) History of heart artery stent x6 stents total History of prostate biopsy malignant History of tooth extraction S/P CABG x 3 [address] [facility]---follows with Dr. 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 No acute distress. HEENT: Normocephalic, atraumatic. Pupils equal, round and reactive to light and accommodation. Extraocular muscles are intact. Anicteric sclera. Moist mucous membranes. Neck: No JVD. No bruit. Cardiovascular: Regular. Positive S-4. Normal S-1 and S-2. No S-3. No murmurs or rubs. Pulmonary: Clear to auscultation B/L. No rales, rhonchi or wheezing Abdomen: Bowel sounds x 4, soft. No rebound, guarding or tenderness. No organomegaly. Extremities: No clubbing, cyanosis or edema. +2 pedal pulses bilaterally. Skin: Warm and dry. Results & Data ([facility]) Vital Signs (Past 12 Hours) Vital Signs Temp Pulse Resp BP Pulse Ox 06/09/20 12:21 99 06/09/20 11:50 47 L 26 H 114/49 L 96 06/09/20 11:32 36.8 C 101 H 16 139/65 97 Laboratory Results Laboratory Results - last 24 hr 06/09/20 06/09/20 06/09/20 12:15 12:17 12:17 WBC 9.10 RBC 2.98 L Hgb 8.7 L Hct 27.4 L MCV 91.9 MCH 29.2 MCHC 31.8 L RDW Std Deviation 57.8 H RDW Coeff of Joey 17.5 H Plt Count 283 MPV 9.2 Immature Gran % (Auto) 0.3 Neut % (Auto) 81.7 Lymph % (Auto) 12.4 [place] % (Auto) 2.7 Eos % (Auto) 2.6 Baso % (Auto) 0.3 Neut # (Auto) 7.42 H Lymph # (Auto) 1.13 L [place] # (Auto) 0.25 Eos # (Auto) 0.24 Baso # (Auto) 0.03 Immature Gran # (Auto) 0.03 H PT 10.5 INR 1.0 APTT 30.2 PTT Ratio 1.1 Sodium 137 Potassium 3.8 Chloride 105 Carbon Dioxide 27 Anion Gap 5.0 BUN 35 H Creatinine 1.92 H Est Cr Clr Drug Dosing 38.2 Est GFR ( Amer) 38.1 Est GFR (Non-Af Amer) 32.8 BUN/Creatinine Ratio 18.3 Glucose 119 H Calcium 7.9 L Total Bilirubin 0.5 AST 8 L ALT 15 Alkaline Phosphatase 142 H Troponin I < 0.015 Total Protein 6.9 Albumin 2.7 L Globulin 4.2 H Albumin/Globulin Ratio 0.6 L Blood Type Antibody Screen Crossmatch 06/09/20 12:22 WBC RBC Hgb Hct MCV MCH MCHC RDW Std Deviation RDW Coeff of Joey Plt Count MPV Immature Gran % (Auto) Neut % (Auto) Lymph % (Auto) [place] % (Auto) Eos % (Auto) Baso % (Auto) Neut # (Auto) Lymph # (Auto) [place] # (Auto) Eos # (Auto) Baso # (Auto) Immature Gran # (Auto) PT INR APTT PTT Ratio Sodium Potassium Chloride Carbon Dioxide Anion Gap BUN Creatinine Est Cr Clr Drug Dosing Est GFR ( Amer) Est GFR (Non-Af Amer) BUN/Creatinine Ratio Glucose Calcium Total Bilirubin AST ALT Alkaline Phosphatase Troponin I Total Protein Albumin Globulin Albumin/Globulin Ratio Blood Type A Positive Antibody Screen NEGATIVE Crossmatch See Detail Diagnostic Findings 7-day Zio patch monitor results: Patient had a min HR of 28 bpm, max HR of 118 bpm, and avg HR of 67 bpm. Predominant underlying rhythm was Sinus Rhythm. First Degree AV Block was present. 1 run of Supraventricular Tachycardia occurred lasting 4 beats with a max rate of 108 bpm (avg 103 bpm). 30 episode(s) of AV Block (High Grade and 3rd) occurred, lasting a total of 7 mins 4 secs. Second Degree AV Block-Mobitz I (Wenckebach) was present. Isolated SVEs were rare (<1.0%), SVE Couplets were rare (<1.0%), and SVE Triplets were rare (<1.0%). Isolated VEs were rare (<1.0%), and no VE Couplets or VE Triplets were present. MD notification criteria for Complete heart block met.
--- NOTE | 2020-06-09 13:58 | History & Physical Report ---
Date of Service June 09, 2020 Assessment & Plan (1) Atrioventricular block, Mobitz type 1, Asya: - Admit to tele - Will get updated echo, EKG was reviewed - Hold metoprolol in anticipation of pacemaker placement tomorrow. Will make the pt NPO. - Continue other antihypertensives including losartan - Continue diuretic and baby aspirin - Cardiology consulted (2) Severe anemia: - Hgb of 8.7, previously 10.6 earlier this month - Follows with Dr. Enrrique Christine as an outpatient with hematology, consider consultation in regarding to improving anemia prior to pacemaker insertion. May require blood transfusion here. - Has recently gotten IV iron and B12 infusions (3) Coronary artery disease: -s/p coronary bypass grafting surgery x3 in 2008, along with multiple PCIs to the RCA and patent RCA stents with 2 patent grafts by cardiac catheterization August 2016. - As above, cardiology consulted, continue medications as listed above and hold beta blockade (4) HLD (hyperlipidemia): - Cont statin therapy (5) COPD (chronic obstructive pulmonary disease): - Wear 2.5 L via Cpap pillows HS - will have brought in from home - Cont supplemental O2 at 2-3 L with ambulation, not needed at rest ususally. - Cont inhalers- albuterol, fluticasone (6) CKD (chronic kidney disease), stage IV: - Chronic, Cr. 1.92, BUN 35, monitor with am labs (7) Diabetes mellitus type 2 in obese: - Last A1C = 5.4 on 05/18/20 - Cont ISS with sliding scale, takes up to 50 U TID with meals, holding Victoza as this is not available in the hospital (8) Morbid obesity: - BMI of 45.8, encourage diet and exercise throughout hospital stay. (9) DVT prophylaxis: - teds, heparin subq tonight, then hold for possible pacemaker insertion in am, resume ppx pending hospital course. CODE: Full code Dispo: From home, likely to remain in the hospital x 1-2 days History of Present Illness Primary Care Provider: Levy Stout MD This is a 79-year-old male with PMHx of CAD, chronic stable angina, history of coronary stent, bypass, HTN, HLD, second-degree AV heart block, anemia with recent iron and B12 transfusions, COPD, DM type II, morbid obesity, osteoarthritis, GERD, and BPH who presents to the hospital after conversation with cardiology office regarding Zio patch abnormal readings. He follows with cardiology with Dr. Rolon. Pt was referred to the ER for possible pacemaker placement. Pt reports last evening was not feeling himself. He was having deep left lower chest pain, which does not change depending on rest versus exertion. He admits to some sweating and nausea, Denies vomiting, headache, palpitations, lightheadedness. He reports recently having lower blood counts and needing transfusions, which has been very worrisome. Pt is concerned that if his blood count is not high enough he will not be able to get the pacemaker soon. He virgil es at home with his who has dementia, and son who is in a wheelchair. They have caregivers there partner alliance manager but otherwise he cares for these two. Allergies Allergy/AdvReac Type Severity Reaction Status Date / Time methylprednisolone AdvReac Severe AMS Verified 06/09/20 12:41 hydromorphone [From Dilaudid] AdvReac Intermediate Nausea Verified 06/09/20 12:41 prednisone AdvReac Unknown INCREASE Verified 06/09/20 12:41 BLOOD SUGAR Home Medications Medication Instructions Recorded Confirmed Type [place]-3 Fish Oil 2 cap PO QAM 11/13/17 06/09/20 History Tresiba FlexTouch U-200 100 unit SUBCUT QAM 11/13/17 06/09/20 History atorvastatin 80 mg PO QPM 11/13/17 06/09/20 History fluticasone propionate [Flonase 2 spray INTRANASAL DAILY 11/13/17 06/09/20 History Allergy Relief] insulin aspart U-100 [Novolog 50 unit SUBCUT TIDM #0 11/13/17 06/09/20 History Flexpen U-100 Insulin] losartan 25 mg PO DAILY 11/13/17 06/09/20 History nitroglycerin [Nitrostat] 0.4 mg SUBLINGUAL UD PRN 11/13/17 06/09/20 History Enbrel SureClick 1 dose SUBCUT WK 04/10/18 06/09/20 History furosemide [Lasix] 80 mg PO QAM 04/20/18 06/09/20 History probenecid 500 mg PO BID 05/29/19 06/09/20 History Restasis 1 drp OPB Q12 10/13/19 06/09/20 History Victoza 3-Kei 1.2 mg SUBCUT DAILY 10/13/19 06/09/20 History omeprazole 20 mg PO BID #60 tab 10/14/19 06/09/20 Rx metoprolol tartrate 12.5 mg PO BID #60 tab 05/19/20 06/09/20 Rx albuterol sulfate 2 puff INHALATION Q4 PRN 06/09/20 06/09/20 History allopurinol 300 mg PO DAILY 06/09/20 06/09/20 History aspirin [Aspirin Low Dose] 81 mg PO DAILY 06/09/20 06/09/20 History fluorometholone 1 drp OPHTHALMIC (EYE) TID 06/09/20 06/09/20 History folic acid 1 mg PO DAILY 06/09/20 06/09/20 History tramadol 50 mg PO Q6H PRN 06/09/20 06/09/20 History triamcinolone acetonide 1 applic TOPICAL BID 06/09/20 06/09/20 History umeclidinium [Incruse Ellipta] 1 inh INHALATION DAILY 06/09/20 06/09/20 History Past Med/Surg History Medical History Anemia Chest pain CHF (congestive heart failure) Chronic obstructive pulmonary disease Diabetes Diabetes mellitus, type 2 Diverticular disease GERD (gastroesophageal reflux disease) History of colon polyps Hyperlipidemia Hypertension Obesity On home oxygen therapy 2L N/C prn SOB Osteoarthritis Prostate cancer radiation seeds Psoriasis Shortness of breath on exertion oxygen 2L n/c prn Sleep apnea cpap--no oxygen Stage 4 chronic kidney disease Surgical History History of cardiac cath had 4 total--last 2016 @ [facility] History of colonoscopy History of esophagogastroduodenoscopy (EGD) History of heart artery stent x6 stents total History of prostate biopsy malignant History of tooth extraction S/P CABG x 3 2008 @ [facility]---follows with Dr. 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 No fever, sweats or chills currently Eyes: No diplopia, no worsening or blurred vision ENT: normal hearing, no trouble swallowing Respiratory: No cough, sputum, dyspnea at rest or on exertion Cardiovascular: As per HPI. Abdomen: As per HPI. No pain, nausea, vomiting, diarrhea or constipation Musculoskeletal: No joint pain, calf pain, swelling Neurologic: No weakness, numbness/tingling, or balance problems Psychiatric: No anxiety or depression Skin: No rash or itch Physical Exam Physical Exam: General: awake, alert, no apparent distress, morbidly obese with BMI 45.8 Head: Normocephalic, atraumatic ENT: PERRL, EOMI, no pharyngeal exudate, mucous membranes moist Chest: Clear to auscultation, on room air, faint wheeze at left base, no rhonchi or rales. Mediport accessed in left chest wall. Cardiac: Bradycardic, long pauses, no murmur, no JVD, normal peripheral pulses, good capillary refill Abdominal: NABS x 4 quadrants, soft, obese, nondistended, nontender to palpation, no rebound or guarding Extremities: Normal inspection, 1+ peripheral edema, no pitting, no erythema, calfs nontender to palpation Psych: Normal mood and affect Neuro: AAO x 3, strength intact bilaterally and rated 5/5, no motor deficits, speech is clear, no peripheral sensory deficits Results & Data Results & Data ([facility]) Vital Signs (Past 12 Hours) Vital Signs Temp Pulse Resp BP Pulse Ox 06/09/20 12:21 99 06/09/20 11:50 47 L 26 H 114/49 L 96 06/09/20 11:32 36.8 C 101 H 16 139/65 97 Diagnostic Findings Chest X-Ray 06/09/20 11:50 XR chest 1V portable CLINICAL HISTORY: Dyspnea COMPARISON STUDY: Chest radiograph May 18, 2020. FINDINGS: Lung volumes are normal. Lungs are clear. There is no pneumothorax or pleural effusion. Cardiomegaly is unchanged. Mediastinal contours are normal. There is no evidence for pulmonary edema. Left subclavian [id number], median sternotomy wires and mediastinal surgical clips are noted. IMPRESSION: No acute cardiopulmonary findings. No change in appearance of the chest. ACT 112: Negative or not required by law. Electronically signed by: Vitaly Tadeo M.D. 06/09/2020 12:28 PM ECG Indication: chest pain Additional Comments: 2nd degree AV block, Mobitz Type 1 Code Status & VTE Plan Code Status Full code Supervising Physician Co-Signing Physician Notes Attending addendum: The patient was seen and examined in emergency room He was sent in from doctor's office with bradycardia and angina Has been feeling much better in the emergency room and noted to have Mobitz type I second-degree heart block His hemoglobin is noted to be 8.5 on admission He denies any other symptoms during examination On examination No apparent distress at rest Has obesity Hemodynamically stable with pulse around upper 40s Chest-decreased breath sounds at the bases Heart-S1-S2, 2/6 systolic murmur over precordium Abdomen-distended, soft, bowel sounds present Extremities-1+ edema bilaterally 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
[2020-06-09 14:14] LABS: Appearance Urine Clear (Clear); Bacteria Urine Automated Negative (Negative); Bilirubin Urine Negative (Negative); Blood Urine Trace (Negative); Color Urine Yellow; Glucose Urine UA Negative (Negative); Ketones Urine Negative (Negative); Leukocyte Esterase Urine Trace (Negative); Nitrite Urine Negative (Negative); Protein Urine Negative (Negative); RBC Urine Automated 0-4 /hpf (0-4); Specific Gravity Urine 1.009 (1.000-1.030); Urobilinogen Urine Negative (Negative)
[2020-06-09] MEDS ORDERED: NITROGLYCERIN 2% OINTMENT 30GM TUBE EXT PRN (14:36)
--- NOTE | 2020-06-09 15:08 | Emergency Department Note ---
History of Present Illness General Chief complaint: Cardiac Assessment Stated complaint: ABNORMAL LABS, CHEST PAIN Source: patient and old records reviewed ([facility]) Mode of arrival: ambulatory Limitations: no limitations History of Present Illness Provider complaint: Anemia, heart rhythm issue, sent by cardiology Maximum Pain Intensity: 0 This pt is a 79 yo male who presents to the ED with c/o CAPONE, anemia which is recurrent, and a heart rhythm issue. Pt recently wore a Zio patch and was notified by cardiology that he needs a pacemaker. His hgb levels have been chronically dropping and it was presumed to be an occult GI blood loss, although not proven. Pt states he saw hematology at [facility] who felt it was likely r/t his bone marrow. Pt denies significant CP or syncope, no recent sick contacts. Home Medications Medication Instructions Recorded Confirmed Type Tresiba FlexTouch U-200 100 unit SUBCUT QAM 11/13/17 06/09/20 History atorvastatin 80 mg PO QPM 11/13/17 06/09/20 History fluticasone propionate [Flonase 2 spray INTRANASAL DAILY 11/13/17 06/09/20 History Allergy Relief] insulin aspart U-100 [Novolog 50 unit SUBCUT TIDM #0 11/13/17 06/09/20 History Flexpen U-100 Insulin] losartan 25 mg PO DAILY 11/13/17 06/09/20 History nitroglycerin [Nitrostat] 0.4 mg SUBLINGUAL UD PRN 11/13/17 06/09/20 History Enbrel SureClick 1 dose SUBCUT WK 04/10/18 06/09/20 History furosemide [Lasix] 80 mg PO QAM 04/20/18 06/09/20 History probenecid 500 mg PO BID 05/29/19 06/09/20 History Restasis 1 drp OPB Q12 10/13/19 06/09/20 History Victoza 3-Kei 1.2 mg SUBCUT DAILY 10/13/19 06/09/20 History omeprazole 20 mg PO BID #60 tab 10/14/19 06/09/20 Rx metoprolol tartrate 12.5 mg PO BID #60 tab 05/19/20 06/09/20 Rx albuterol sulfate 2 puff INHALATION Q4 PRN 06/09/20 06/09/20 History allopurinol 300 mg PO DAILY 06/09/20 06/09/20 History aspirin [Aspirin Low Dose] 81 mg PO DAILY 06/09/20 06/09/20 History fluorometholone 1 drp OPHTHALMIC (EYE) TID 06/09/20 06/09/20 History folic acid 1 mg PO DAILY 06/09/20 06/09/20 History triamcinolone acetonide 1 applic TOPICAL BID 06/09/20 06/09/20 History umeclidinium [Incruse Ellipta] 1 inh INHALATION DAILY 06/09/20 06/09/20 History tramadol 50 mg PO Q6H PRN #30 tab 06/12/20 Rx Allergies Allergy/AdvReac Type Severity Reaction Status Date / Time methylprednisolone AdvReac Severe AMS Verified 06/09/20 12:41 hydromorphone [From Dilaudid] AdvReac Intermediate Nausea Verified 06/09/20 12:41 prednisone AdvReac Unknown INCREASE Verified 06/09/20 12:41 BLOOD SUGAR Past Med/Surg History Medical History Anemia Chest pain CHF (congestive heart failure) Chronic obstructive pulmonary disease Diabetes Diabetes mellitus, type 2 Diverticular disease GERD (gastroesophageal reflux disease) History of colon polyps Hyperlipidemia Hypertension Obesity On home oxygen therapy 2L N/C prn SOB Osteoarthritis Prostate cancer radiation seeds Psoriasis Shortness of breath on exertion oxygen 2L n/c prn Sleep apnea cpap--no oxygen Stage 4 chronic kidney disease Surgical History History of cardiac cath had 4 total--last 2015 @ [facility] History of colonoscopy History of esophagogastroduodenoscopy (EGD) History of heart artery stent x6 stents total History of prostate biopsy malignant History of tooth extraction S/P CABG x [address] [facility]---follows with Dr. Rolon Status post LASIK surgery of both eyes Family History Other No family history of adverse response to anesthesia Social History Smoking Status: Never smoker Second Hand Exposure: No; Hx Alcohol Use: No Hx Substance Use: No Preferred Language: Persian Communication Ability: Effective Renal Dialysis Rn Required: No Beliefs That Will Affect Care: None marital status: Current Living Situation: Spouse Other Information That Helps Us Care for You: No Feels Safe at Home: Yes Safety Concerns: Feels Safe At This Time Assistive Devices: Oxygen - at Night Review of Systems See HPI for pertinent positives & negatives. and A total of 10 systems reviewed and were otherwise negative Physical Exam Vital Signs Vital Signs - 24 hr 06/09/20 11:32 06/09/20 11:50 06/09/20 12:21 Temperature 36.8 C Temperature Source Temporal Artery Scan Pulse Rate 101 H 47 L Pulse Rate from SpO2 Sensor 47 L Respiratory Rate 16 26 H Blood Pressure 139/65 114/49 L Blood Pressure Mean 89 70 Pulse Oximetry 97 96 99 Oxygen Delivery Method Nasal Cannula Room Air Oxygen Flow Rate 3 Sepsis Recent Fever Within 48 Hours No Sepsis New/Unexplained Change in Mental Status N/A Sepsis Action Taken by Nursing No Action Required 06/09/20 13:00 06/09/20 13:31 06/09/20 14:00 Temperature Temperature Source Pulse Rate 63 66 49 L Pulse Rate from SpO2 Sensor 62 59 L 49 L Respiratory Rate 26 H 17 16 Blood Pressure 109/45 L 115/41 L Blood Pressure Mean 66 65 Pulse Oximetry 91 98 93 Oxygen Delivery Method Oxygen Flow Rate Sepsis Recent Fever Within 48 Hours Sepsis New/Unexplained Change in Mental Status Sepsis Action Taken by Nursing 06/09/20 14:30 Temperature Temperature Source Pulse Rate 41 L Pulse Rate from SpO2 Sensor 43 L Respiratory Rate 22 Blood Pressure 124/49 L Blood Pressure Mean 74 Pulse Oximetry 90 Oxygen Delivery Method Oxygen Flow Rate Sepsis Recent Fever Within 48 Hours Sepsis New/Unexplained Change in Mental Status Sepsis Action Taken by Nursing Vital signs reviewed. General: Generally well appearing obese 79 yo male,, in no significant distress. HEENT: No scleral icterus, PERRLA, neck supple. Atraumatic. Cardiovascular: Irregular with short pauses, no extra sounds. Pulmonary: Clear to auscultation bilaterally, normal work of breathing. Abdomen: Soft, obese, nontender, nondistended, positive bowel sounds. Musculoskeletal: Atraumatic, no peripheral edema. Neurologic: Patient awake alert and oriented x 3 Skin: Warm, dry, no rash Course Administered Medications Allopurinol (Allopurinol 300 Mg Tab) 300 mg PO DAILY [place]MER Stop: 07/10/20 08:59 Last Admin: 06/12/20 08:38 Dose: 300 mg Documented by: [id number] Admin: 06/11/20 08:58 Dose: 300 mg Documented by: [id number] Admin: 06/10/20 10:29 Dose: 300 mg Documented by: [id number] Aspirin (Aspirin 81 Mg Ectab) 81 mg PO DAILY [place] Stop: 07/10/20 08:59 Last Admin: 06/12/20 08:38 Dose: 81 mg Documented by: [id number] Admin: 06/11/20 08:59 Dose: 81 mg Documented by: [id number] Admin: 06/10/20 10:29 Dose: 81 mg Documented by: [id number] Atorvastatin Calcium (Atorvastatin 40 Mg Tab) 80 mg PO QPM [place] Stop: 07/09/20 20:59 Last Admin: 06/11/20 22:03 Dose: 80 mg Documented by: [id number] Admin: 06/10/20 20:34 Dose: 80 mg Documented by: [id number] Admin: 06/09/20 20:32 Dose: 80 mg Documented by: [id number] Fish Oil (Wheatley-3 (Purified Fish Oil) 1 Gm Cap) 2 gm PO QAM [place] Stop: 07/10/20 08:59 Last Admin: 06/12/20 08:37 Dose: 2 gm Documented by: [id number] Admin: 06/11/20 08:59 Dose: 2 gm Documented by: [id number] Admin: 06/10/20 10:29 Dose: 2 gm Documented by: [id number] Fluticasone Propionate (Fluticasone Propionate Na Spr 16 Gm Btl) 2 sprays NA DAILY [place] Stop: 07/10/20 08:59 Last Admin: 06/12/20 08:38 Dose: 2 sprays Documented by: [id number] Admin: 06/11/20 08:58 Dose: 2 sprays Documented by: [id number] Admin: 06/10/20 10:30 Dose: 2 sprays Documented by: [id number] Folic Acid (Folic Acid 1 Mg Tab) 1 mg PO DAILY [place] Stop: 07/10/20 08:59 Last Admin: 06/12/20 08:38 Dose: 1 mg Documented by: [id number] Admin: 06/11/20 08:58 Dose: 1 mg Documented by: [id number] Admin: 06/10/20 10:29 Dose: 1 mg Documented by: [id number] Furosemide (Furosemide 80 Mg Tab) 80 mg PO QAM [place] Stop: 07/10/20 08:59 Last Admin: 06/12/20 08:50 Dose: Not Given Documented by: [id number] Admin: 06/11/20 08:58 Dose: 80 mg Documented by: [id number] Admin: 06/10/20 10:29 Dose: 80 mg Documented by: [id number] Heparin Sodium (Porcine) (Heparin 100 Unit/Ml 5ml Flush) 5 ml FLUSH PRN PRN PRN Reason: Flush Stop: 07/10/20 01:57 Last Admin: 06/12/20 09:33 Dose: 5 ml Documented by: [id number] Admin: 06/10/20 07:32 Dose: 5 ml Documented by: [id number] Heparin Sodium (Porcine) (Heparin Sod 5,000 Unit/0.5 Ml Vial) 5,000 units SQ Q8 [facility] Stop: 07/10/20 21:59 Last Admin: 06/12/20 06:16 Dose: 5,000 units Documented by: [id number] Admin: 06/11/20 22:01 Dose: 5,000 units Documented by: [id number] Admin: 06/11/20 14:32 Dose: Not Given Documented by: [id number] Admin: 06/11/20 07:01 Dose: Not Given Documented by: [id number] Admin: 06/10/20 20:37 Dose: 5,000 units Documented by: [id number] Insulin Aspart (Insulin Aspart 100 Units/Ml 3 Ml Pen) 0 units SC ACHS [facility] Stop: 07/09/20 23:29 Last Admin: 06/12/20 08:36 Dose: 5 units Documented by: [id number] Cosigned by: [id number] Admin: 06/11/20 22:06 Dose: Not Given Documented by: [id number] Admin: 06/11/20 17:07 Dose: Not Given Documented by: [id number] Admin: 06/11/20 11:56 Dose: Not Given Documented by: [id number] Admin: 06/11/20 08:57 Dose: 3 units Documented by: [id number] Cosigned by: [id number] Admin: 06/10/20 20:33 Dose: 4 units Documented by: [id number] Cosigned by: [id number] Admin: 06/10/20 17:08 Dose: 7 units Documented by: [id number] Cosigned by: [id number] Admin: 06/10/20 12:51 Dose: 1 units Documented by: [id number] Cosigned by: [id number] Admin: 06/10/20 09:20 Dose: Not Given Documented by: [id number] Admin: 06/09/20 23:38 Dose: 3 units Documented by: [id number] Cosigned by: [id number] Insulin Glargine (Insulin Glargine Solostar 100 Units/Ml 3 Ml Pen) 0 units SC [facility]; Protocol Stop: 07/10/20 20:59 Last Admin: 06/11/20 22:07 Dose: 15 units Documented by: [id number] Cosigned by: [id number] Admin: 06/10/20 20:34 Dose: 20 units Documented by: [id number] Cosigned by: [id number] Losartan Potassium (Losartan Potassium 25 Mg Tab) 25 mg PO DAILY [facility] Stop: 07/10/20 08:59 Last Admin: 06/12/20 08:50 Dose: Not Given Documented by: [id number] Admin: 06/11/20 08:59 Dose: 25 mg Documented by: [id number] Admin: 06/10/20 10:29 Dose: 25 mg Documented by: [id number] Metoprolol Tartrate (Metoprolol Tartrate 25 Mg Tab) 25 mg PO BID [facility] Stop: 07/11/20 17:59 Last Admin: 06/12/20 08:51 Dose: Not Given Documented by: [id number] Admin: 06/11/20 22:24 Dose: Not Given Documented by: [id number] Admin: 06/11/20 22:03 Dose: 25 mg Documented by: [id number] Miscellaneous (Restasis~Order Awaiting Action) 1 ea N/A QS [facility] Stop: 07/09/20 17:29 Last Admin: 06/12/20 07:31 Dose: Not Given Documented by: [id number] Admin: 06/11/20 23:52 Dose: Not Given Documented by: [id number] Admin: 06/11/20 17:06 Dose: Not Given Documented by: [id number] Admin: 06/11/20 08:57 Dose: Not Given Documented by: [id number] Admin: 06/11/20 00:50 Dose: Not Given Documented by: [id number] Admin: 06/10/20 17:09 Dose: Not Given Documented by: [id number] Admin: 06/10/20 09:21 Dose: Not Given Documented by: [id number] Admin: 06/09/20 22:01 Dose: Not Given Documented by: [id number] Admin: 06/09/20 19:08 Dose: Not Given Documented by: [id number] Miscellaneous (Enbrel~Order Awaiting Action) 1 ea N/A QS [place] Stop: 07/09/20 17:29 Last Admin: 06/12/20 07:31 Dose: Not Given Documented by: [id number] Admin: 06/11/20 23:52 Dose: Not Given Documented by: [id number] Admin: 06/11/20 17:06 Dose: Not Given Documented by: [id number] Admin: 06/11/20 08:57 Dose: Not Given Documented by: [id number] Admin: 06/11/20 00:49 Dose: Not Given Documented by: [id number] Admin: 06/10/20 17:09 Dose: Not Given Documented by: [id number] Admin: 06/10/20 09:21 Dose: Not Given Documented by: [id number] Admin: 06/09/20 22:00 Dose: Not Given Documented by: [id number] Admin: 06/09/20 19:08 Dose: Not Given Documented by: [id number] Miscellaneous (Fluroumethalone~Order Awaiting Action) 1 ea N/A QS [place] Stop: 07/09/20 17:29 Last Admin: 06/12/20 07:31 Dose: Not Given Documented by: [id number] Admin: 06/11/20 23:52 Dose: Not Given Documented by: [id number] Admin: 06/11/20 17:06 Dose: Not Given Documented by: [id number] Admin: 06/11/20 08:57 Dose: Not Given Documented by: [id number] Admin: 06/11/20 00:50 Dose: Not Given Documented by: [id number] Admin: 06/10/20 17:09 Dose: Not Given Documented by: [id number] Admin: 06/10/20 09:21 Dose: Not Given Documented by: [id number] Admin: 06/09/20 22:01 Dose: Not Given Documented by: [id number] Admin: 06/09/20 19:08 Dose: Not Given Documented by: [id number] Pantoprazole Sodium (Pantoprazole 40 Mg Tab) 40 mg PO BID [place] Stop: 07/09/20 20:59 Last Admin: 06/12/20 08:37 Dose: 40 mg Documented by: [id number] Admin: 06/11/20 22:00 Dose: 40 mg Documented by: [id number] Admin: 06/11/20 08:59 Dose: 40 mg Documented by: [id number] Admin: 06/10/20 20:38 Dose: 40 mg Documented by: [id number] Admin: 06/10/20 10:30 Dose: 40 mg Documented by: [id number] Admin: 06/09/20 20:32 Dose: 40 mg Documented by: [id number] Probenecid (Probenecid 500 Mg Tab) 500 mg PO BID [place] Stop: 07/09/20 20:59 Last Admin: 06/12/20 08:38 Dose: 500 mg Documented by: [id number] Admin: 06/11/20 22:02 Dose: 500 mg Documented by: [id number] Admin: 06/11/20 08:58 Dose: 500 mg Documented by: [id number] Admin: 06/10/20 20:39 Dose: 500 mg Documented by: [id number] Admin: 06/10/20 10:31 Dose: 500 mg Documented by: [id number] Admin: 06/09/20 20:32 Dose: 500 mg Documented by: [id number] Tramadol HCl (Tramadol Hcl 50 Mg Tablet) 50 mg PO Q6H PRN PRN Reason: Pain Stop: 07/09/20 16:57 Last Admin: 06/12/20 06:21 Dose: 50 mg Documented by: [id number] Admin: 06/11/20 23:52 Dose: 50 mg Documented by: [id number] Triamcinolone Acetonide (Triamcinolone Acet 0.1% Oint 15 Gm Tube) 1 appln TOP BID [place] Stop: 07/09/20 20:59 Last Admin: 06/12/20 08:34 Dose: Not Given Documented by: [id number] Admin: 06/11/20 22:02 Dose: 1 appln Documented by: [id number] Admin: 06/11/20 09:00 Dose: Not Given Documented by: [id number] Admin: 06/10/20 20:36 Dose: 1 appln Documented by: [id number] Admin: 06/10/20 10:31 Dose: Not Given Documented by: [id number] Admin: 06/09/20 20:31 Dose: Not Given Documented by: [id number] Umeclidinium [place] (Umeclidinium [place] 62.5mcg/Blister 7 Puffs/Inhaler) 1 puffs INH DAILY [place] Stop: 07/10/20 08:59 Last Admin: 06/12/20 08:35 Dose: Not Given Documented by: [id number] Admin: 06/11/20 08:58 Dose: 1 puffs Documented by: [id number] Admin: 06/10/20 10:31 Dose: Not Given Documented by: [id number] Discontinued Medications Bacitracin (Bacitracin Inj 50,000 Unit Vial) Confirm Administered Dose 50,000 units .ROUTE .STK-MED ONE Stop: 06/11/20 19:18 Last Admin: 06/11/20 19:58 Dose: 50,000 units Documented by: [id number] Bupivacaine HCl (Bupivacaine 0.25% 30 Ml Vial) Confirm Administered Dose 30 ml .ROUTE .STK-MED ONE Stop: 06/11/20 19:15 Last Admin: 06/11/20 19:58 Dose: 30 ml Documented by: [id number] Cefazolin Sodium (Cefazolin 250 Mg/Ml 1 Gm Vial) Confirm Administered Dose 3,000 mg .ROUTE .STK-MED ONE Stop: 06/11/20 18:45 Last Admin: 06/11/20 19:57 Dose: 3,000 mg Documented by: [id number] Cyanocobalamin (Cyanocobalamin 1000 Mcg/Ml Vial) 1,000 mcg IM ONE ONE Stop: 06/11/20 08:01 Last Admin: 06/11/20 08:59 Dose: 1,000 mcg Documented by: [id number] Fentanyl Citrate (Fentanyl Citrate 100 Mcg/2 Ml Vial) Confirm Administered Dose 100 mcg .ROUTE .STK-MED ONE Stop: 06/11/20 18:45 Last Admin: 06/11/20 19:58 Dose: 100 mcg Documented by: [id number] Fentanyl Citrate (Fentanyl Citrate 100 Mcg/2 Ml Vial) Confirm Administered Dose 100 mcg .ROUTE .STK-MED ONE Stop: 06/11/20 19:28 Last Admin: 06/11/20 19:58 Dose: 50 mcg Documented by: [id number] Furosemide (Furosemide 40 Mg/4 Ml Vial) 40 mg IV ONE STA Stop: 06/09/20 16:39 Last Admin: 06/09/20 20:47 Dose: 40 mg Documented by: [id number] Furosemide (Furosemide 40 Mg/4 Ml Vial) Confirm Administered Dose 40 mg IV .STK- MED ONE Stop: 06/09/20 20:47 Last Admin: 06/09/20 20:53 Dose: Not Given Documented by: [id number] Heparin Sodium (Porcine) (Heparin Sod 5,000 Unit/0.5 Ml Vial) 5,000 units SQ Q12 [facility] Stop: 06/09/20 21:01 Last Admin: 06/09/20 20:32 Dose: 5,000 units Documented by: [id number] Insulin Aspart (Insulin Aspart 100 Units/Ml 3 Ml Pen) 50 units SQ TIDM [facility] Stop: 07/09/20 16:59 Last Admin: 06/09/20 18:31 Dose: Not Given Documented by: [id number] Insulin Aspart (Insulin Aspart 100 Units/Ml 3 Ml Pen) 0 units SC 0000,[id number] [facility] Stop: 06/11/20 04:01 Last Admin: 06/11/20 06:04 Dose: Not Given Documented by: [id number] Admin: 06/11/20 01:07 Dose: 1 units Documented by: [id number] Cosigned by: [id number] Lidocaine HCl (Lidocaine Hcl 1% 20 Ml Vial) Confirm Administered Dose 20 ml .ROUTE .STK-MED ONE Stop: 06/11/20 19:15 Last Admin: 06/11/20 19:58 Dose: 20 ml Documented by: [id number] Metoprolol Tartrate (Metoprolol Tartrate 25 Mg Tab) 12.5 mg PO BID [facility] Stop: 07/09/20 20:59 Last Admin: 06/10/20 09:22 Dose: Not Given Documented by: [id number] Admin: 06/09/20 20:33 Dose: 12.5 mg Documented by: [id number] Midazolam HCl (Midazolam Hcl 5 Mg/Ml 1 Ml Vial) Confirm Administered Dose 5 mg .ROUTE .STK-MED ONE Stop: 06/11/20 18:45 Last Admin: 06/11/20 19:58 Dose: 5 mg Documented by: [id number] Midazolam HCl (Midazolam Hcl 1 Mg/Ml 2ml Vial) Confirm Administered Dose 2 mg .ROUTE .STK-MED ONE Stop: 06/11/20 19:28 Last Admin: 06/11/20 19:59 Dose: 1 mg Documented by: [id number] Miscellaneous (Victoza~Order Awaiting Action) 1 ea N/A QS [facility] Stop: 07/09/20 17:29 Last Admin: 06/10/20 09:21 Dose: Not Given Documented by: [id number] Admin: 06/09/20 22:01 Dose: Not Given Documented by: [id number] Admin: 06/09/20 19:08 Dose: Not Given Documented by: [id number] Medical Decision Making Differential Diagnosis Premature contractions, anemia, electrolyte abnormality, cardiac dysrhythmia, thyroid dysfunction, pulmonary embolism, infection, gastrointestinal, as well as other pathologies. Medical Records Attestation: I reviewed the patient's medical records. Home Medications Current Medication List: was personally reviewed by me Laboratory Data Attestation: I reviewed the patient's lab results. Result diagrams: 06/12/20 06:25 06/12/20 06:25 Lab Results 06/09/20 06/09/20 06/09/20 Range/Units 12:15 12:17 12:17 WBC 9.10 (4.8-10.8) K/uL RBC 2.98 L (4.7-6.1) M/uL Hgb 8.7 L (14.0-18.0) g/dL Hct 27.4 L (42-52) % MCV 91.9 (80-100) fL MCH 29.2 (25-34) pg MCHC 31.8 L (32-36) g/dL RDW Std Deviation 57.8 H (36.4-46.3) fL RDW Coeff of Joey 17.5 H (11.5-14.5) % Plt Count 283 (130-400) K/uL MPV 9.2 (7.4-10.4) fL Immature Gran % (Auto) 0.3 % Neut % (Auto) 81.7 % Lymph % (Auto) 12.4 % Faulkner % (Auto) 2.7 % Eos % (Auto) 2.6 % Baso % (Auto) 0.3 % Neut # (Auto) 7.42 H (1.4-6.5) K/uL Lymph # (Auto) 1.13 L (1.2-3.4) K/uL Faulkner # (Auto) 0.25 (0.11-0.59) K/uL Eos # (Auto) 0.24 (0-0.5) K/uL Baso # (Auto) 0.03 (0-0.2) K/uL Immature Gran # (Auto) 0.03 H (0.00-0.02) K/uL PT 10.5 (9.0-12.0) Seconds INR 1.0 (0.9-1.1) APTT 30.2 (21.0-31.0) Seconds PTT Ratio 1.1 Sodium 137 (136-145) mmol/L Potassium 3.8 (3.5-5.1) mmol/L Chloride 105 (98-107) mmol/L Carbon Dioxide 27 (21-32) mmol/L Anion Gap 5.0 (3-11) BUN 35 H (7-18) mg/dl Creatinine 1.92 H (0.6-1.4) mg/dl Est Cr Clr Drug Dosing 38.2 ml/min Est GFR ( Amer) 38.1 Est GFR (Non-Af Amer) 32.8 BUN/Creatinine Ratio 18.3 (10-20) Glucose 119 H (70-99) mg/dl Calcium 7.9 L (8.5-10.1) mg/dl Total Bilirubin 0.5 (0.2-1) mg/dl AST 8 L (15-37) U/L ALT 15 (12-78) U/L Alkaline Phosphatase 142 H (45-117) U/L Troponin I < 0.015 (0-0.045) ng/ml Total Protein 6.9 (6.4-8.2) gm/dl Albumin 2.7 L (3.4-5.0) gm/dl Globulin 4.2 H (2.5-4.0) gm/dl Albumin/Globulin Ratio 0.6 L (0.9-2) Urine Color Urine Appearance (Clear) Urine pH (4.5-7.5) Ur Specific [place] (1.000-1.030) Urine Protein (Negative) Urine Glucose (UA) (Negative) Urine Ketones (Negative) Urine Blood (Negative) Urine Nitrite (Negative) Urine Bilirubin (Negative) Urine Urobilinogen (Negative) Ur Leukocyte Esterase (Negative) Urine WBC (Auto) (0-5) /hpf Urine RBC (Auto) (0-4) /hpf U Hyaline Cast (Auto) (0-5) /lpf U Epithel Cells (Auto) (0-5) /lpf Urine Bacteria (Auto) (Negative) COVID-19 Eval Order SARS-CoV-2 (PCR) (Negative) Influenza Type A (PCR) (Neg) Influenza Type B (PCR) (Neg) RSV (RT-PCR) (Neg) Blood Type Antibody Screen Crossmatch 06/09/20 06/09/20 06/09/20 Range/Units 12:22 13:55 14:10 WBC (4.8-10.8) K/uL RBC (4.7-6.1) M/uL Hgb (14.0-18.0) g/dL Hct (42-52) % MCV (80-100) fL MCH (25-34) pg MCHC (32-36) g/dL RDW Std Deviation (36.4-46.3) fL RDW Coeff of Joey (11.5-14.5) % Plt Count (130-400) K/uL MPV (7.4-10.4) fL Immature Gran % (Auto) % Neut % (Auto) % Lymph % (Auto) % Faulkner % (Auto) % Eos % (Auto) % Baso % (Auto) % Neut # (Auto) (1.4-6.5) K/uL Lymph # (Auto) (1.2-3.4) K/uL Faulkner # (Auto) (0.11-0.59) K/uL Eos # (Auto) (0-0.5) K/uL Baso # (Auto) (0-0.2) K/uL Immature Gran # (Auto) (0.00-0.02) K/uL PT (9.0-12.0) Seconds INR (0.9-1.1) APTT (21.0-31.0) Seconds PTT Ratio Sodium (136-145) mmol/L Potassium (3.5-5.1) mmol/L Chloride (98-107) mmol/L Carbon Dioxide (21-32) mmol/L Anion Gap (3-11) BUN (7-18) mg/dl Creatinine (0.6-1.4) mg/dl Est Cr Clr Drug Dosing ml/min Est GFR ( Amer) Est GFR (Non-Af Amer) BUN/Creatinine Ratio (10-20) Glucose (70-99) mg/dl Calcium (8.5-10.1) mg/dl Total Bilirubin (0.2-1) mg/dl AST (15-37) U/L ALT (12-78) U/L Alkaline Phosphatase (45-117) U/L Troponin I (0-0.045) ng/ml Total Protein (6.4-8.2) gm/dl Albumin (3.4-5.0) gm/dl Globulin (2.5-4.0) gm/dl Albumin/Globulin Ratio (0.9-2) Urine Color Yellow Urine Appearance Clear (Clear) Urine pH 5.0 (4.5-7.5) Ur Specific [place] 1.009 (1.000-1.030) Urine Protein Negative (Negative) Urine Glucose (UA) Negative (Negative) Urine Ketones Negative (Negative) Urine Blood Trace H (Negative) Urine Nitrite Negative (Negative) Urine Bilirubin Negative (Negative) Urine Urobilinogen Negative (Negative) Ur Leukocyte Esterase Trace H (Negative) Urine WBC (Auto) 10-30 H (0-5) /hpf Urine RBC (Auto) 0-4 (0-4) /hpf U Hyaline Cast (Auto) 1-5 (0-5) /lpf U Epithel Cells (Auto) 10-20 H (0-5) /lpf Urine Bacteria (Auto) Negative (Negative) COVID-19 Eval Order [facility]Rsv at [facility] SARS-CoV-2 (PCR) (Negative) Influenza Type A (PCR) (Neg) Influenza Type B (PCR) (Neg) RSV (RT-PCR) (Neg) Blood Type A Positive Antibody Screen NEGATIVE Crossmatch See Detail 06/09/20 Range/Units 14:10 WBC (4.8-10.8) K/uL RBC (4.7-6.1) M/uL Hgb (14.0-18.0) g/dL Hct (42-52) % MCV (80-100) fL MCH (25-34) pg MCHC (32-36) g/dL RDW Std Deviation (36.4-46.3) fL RDW Coeff of Joey (11.5-14.5) % Plt Count (130-400) K/uL MPV (7.4-10.4) fL Immature Gran % (Auto) % Neut % (Auto) % Lymph % (Auto) % Faulkner % (Auto) % Eos % (Auto) % Baso % (Auto) % Neut # (Auto) (1.4-6.5) K/uL Lymph # (Auto) (1.2-3.4) K/uL Faulkner # (Auto) (0.11-0.59) K/uL Eos # (Auto) (0-0.5) K/uL Baso # (Auto) (0-0.2) K/uL Immature Gran # (Auto) (0.00-0.02) K/uL PT (9.0-12.0) Seconds INR (0.9-1.1) APTT (21.0-31.0) Seconds PTT Ratio Sodium (136-145) mmol/L Potassium (3.5-5.1) mmol/L Chloride (98-107) mmol/L Carbon Dioxide (21-32) mmol/L Anion Gap (3-11) BUN (7-18) mg/dl Creatinine (0.6-1.4) mg/dl Est Cr Clr Drug Dosing ml/min Est GFR ( Amer) Est GFR (Non-Af Amer) BUN/Creatinine Ratio (10-20) Glucose (70-99) mg/dl Calcium (8.5-10.1) mg/dl Total Bilirubin (0.2-1) mg/dl AST (15-37) U/L ALT (12-78) U/L Alkaline Phosphatase (45-117) U/L Troponin I (0-0.045) ng/ml Total Protein (6.4-8.2) gm/dl Albumin (3.4-5.0) gm/dl Globulin (2.5-4.0) gm/dl Albumin/Globulin Ratio (0.9-2) Urine Color Urine Appearance (Clear) Urine pH (4.5-7.5) Ur Specific [place] (1.000-1.030) Urine Protein (Negative) Urine Glucose (UA) (Negative) Urine Ketones (Negative) Urine Blood (Negative) Urine Nitrite (Negative) Urine Bilirubin (Negative) Urine Urobilinogen (Negative) Ur Leukocyte Esterase (Negative) Urine WBC (Auto) (0-5) /hpf Urine RBC (Auto) (0-4) /hpf U Hyaline Cast (Auto) (0-5) /lpf U Epithel Cells (Auto) (0-5) /lpf Urine Bacteria (Auto) (Negative) COVID-19 Eval Order SARS-CoV-2 (PCR) NEGATIVE (Negative) Influenza Type A (PCR) Negative (Neg) Influenza Type B (PCR) Negative (Neg) RSV (RT-PCR) Negative (Neg) Blood Type Antibody Screen Crossmatch Imaging Data Radiologist's Impression: Chest X-Ray 06/09/20 11:50 XR chest 1V portable CLINICAL HISTORY: Dyspnea COMPARISON STUDY: Chest radiograph May 18, 2020. FINDINGS: Lung volumes are normal. Lungs are clear. There is no pneumothorax or pleural effusion. Cardiomegaly is unchanged. Mediastinal contours are normal. There is no evidence for pulmonary edema. Left subclavian [id number], median sternotomy wires and mediastinal surgical clips are noted. IMPRESSION: No acute cardiopulmonary findings. No change in appearance of the chest. ACT 112: Negative or not required by law. Electronically signed by: Vitaly Tadeo M.D. 06/09/2020 12:28 PM ECG Data Attestation: I personally reviewed and interpreted this ECG as follows: Indication: + palpitations Rate (beats per minute): 49 Rhythm: + sinus rhythm ECG Intervals/blocks: + Mobitz Type I, + Normal QRS and + Normal QT-c ECG [place]: + Normal ECG ST segments: + Normal ST segments ECG Findings: no PACs and no PVCs Blood Pressure Blood Pressure Findings: Elevated blood pressure Blood Pressure Disposition: further management by hospitalist MDM Narrative This pt was evaluated and appeared and appeared to be in no distress. IV access was obtained and lab work was drawn. Pt was placed on the payable representative and noted to to be in a second degree heart block with progressive AV block and dropped QRS complexes. He remained stable in the ED. Records were reviewed with dropping hbg over last 2 weeks. He was type and crossed for 2 unit PRBC although hbg was 8.7 and transfusion was held. Pt was d/w Dr. Rolon and the hospitalist service for admission and further managment. Impression & Plan Second degree atrioventricular block, Anemia Discharge Plan Visit Data Chief Complaint: Cardiac Assessment Stated Complaint: ABNORMAL LABS, CHEST PAIN ED Provider: Paola Blanco Discharge Problem: Second degree atrioventricular block, Anemia Patient Disposition: Admitted As Inpatient Condition: Good Discharge Instructions Interventions: ED Discharge Assessment Last Done: 06/09/20 16:37 Discharge Problem: Anemia Qualifiers: Anemia type: unspecified type Qualified Code(s): D64.9 - Anemia, unspecified
[2020-06-09 15:15] LABS: Influenza A virus by PCR Negative (Neg); Influenza B virus by PCR Negative (Neg); RSV by PCR Negative (Neg); SARS CoV2 RNA(COVID-19) InHosp NEGATIVE (Negative)
[2020-06-09] MEDS ORDERED: FUROSEMIDE 40 MG in SYRINGE 0 ML IV ONE (16:21)
[2020-06-09] MEDS ORDERED: FUROSEMIDE 40 MG/4 ML VIAL IV STA (16:38)
[2020-06-09] MEDS ORDERED: NITROGLYCERIN SL 0.4 MG/TAB TAB SL PRN (16:58)
[2020-06-09] MEDS ORDERED: ALBUTEROL HFA 8 GM INHALER INH PRN (16:58)
[2020-06-09] MEDS ORDERED: INSULIN ASPART 100 UNITS/ML 3 ML PEN SQ SCH (17:00)
[2020-06-09] MEDS: VICTOZA~ORDER AWAITING ACTION SCH ×2 (19:08→22:01)
[2020-06-09] MEDS: [UNRECOGNIZED DRUG - OTHER] SCH ×2 (19:08→22:00)
[2020-06-09] MEDS: RESTASIS~ORDER AWAITING ACTION SCH ×2 (19:08→22:01)
[2020-06-09] MEDS: TRIAMCINOLONE ACET 0.1% OINT 15 GM TUBE TOP SCH (20:31)
[2020-06-09] MEDS: PROBENECID 500 MG TAB PO SCH (20:32)
[2020-06-09] MEDS: PANTOprazole 40 MG TAB PO SCH (20:32)
[2020-06-09] MEDS: ATORVASTATIN 40 MG TAB PO SCH (20:32)
[2020-06-09] MEDS: METOPROLOL TARTRATE 25 MG TAB PO SCH (20:33)
[2020-06-09] MEDS ORDERED: FUROSEMIDE 40 MG/4 ML VIAL IV ONE (20:46)
[2020-06-09] MEDS ORDERED: HEPARIN SOD 5,000 UNIT/0.5 ML VIAL SQ SCH (21:00)
[2020-06-09] MEDS ORDERED: GLUCAGON FOR INJ 1 MG VIAL SQ PRN (23:28)
[2020-06-09] MEDS ORDERED: GLUCOSE 40% GEL 15 GM TUBE PO PRN (23:28)
[2020-06-09] MEDS ORDERED: CARBOHYDRATES FOR HYPOGLYCEMIA PO PRN (23:28)
[2020-06-09] MEDS ORDERED: DEXTROSE 50% 50 ML SYRINGE IV PRN (23:28)
[2020-06-09] MEDS ORDERED: GLUCOSE 10 TABS/TUBE PO PRN (23:28)
[2020-06-09] MEDS: INSULIN ASPART 100 UNITS/ML 3 ML PEN SC SCH (23:38)
[2020-06-10 06:19] LABS: Basophils # (auto) 0.02 K/uL (0-0.2); Basophils % (auto) 0.2 %; Eosinophils # (auto) 0.59 K/uL (0-0.5); Hematocrit (blood only) 32.1 % (42-52); Hemoglobin 10.5 g/dL (14.0-18.0); Immature Granulocytes # (auto) 0.02 K/uL (0.00-0.02); Immature Granulocytes % (auto) 0.2 %; Lymphocytes # (auto) 1.49 K/uL (1.2-3.4); Lymphocytes % (auto) 12.6 %; Mean Corpuscular Hemoglobin 29.1 pg (25-34); Mean Corpuscular Hgb Conc 32.7 g/dL (32-36); Mean Corpuscular Volume 88.9 fL (80-100); Mean Platelet Volume 9.5 fL (7.4-10.4); Monocytes # (auto) 0.33 K/uL (0.11-0.59); Monocytes % (auto) 2.8 %; Neutrophils # (auto) 9.41 K/uL (1.4-6.5); Neutrophils % (auto) 79.2 %; Platelet Count 281 K/uL (130-400); RDW Standard Deviation 55.3 fL (36.4-46.3); Red Blood Count 3.61 M/uL (4.7-6.1); White Blood Count 11.86 K/uL (4.8-10.8)
[2020-06-10 06:43] LABS: BUN Creatinine Ratio 18.5 (10-20); Creatinine Clr Calc Pharmacy 34.1 ml/min; Est GFR (Non-African American) 30.2
[2020-06-10] MEDS: HEPARIN 100 UNIT/ML 5ML FLUSH FLUSH PRN (07:32)
[2020-06-10] MEDS ORDERED: INSULIN GLARGINE 100 UNIT/ML VIAL SC SCH (09:00)
[2020-06-10] MEDS: INSULIN ASPART 100 UNITS/ML 3 ML PEN SC SCH ×4 (09:20→20:33)
[2020-06-10] MEDS: VICTOZA~ORDER AWAITING ACTION SCH (09:21)
[2020-06-10] MEDS: RESTASIS~ORDER AWAITING ACTION SCH ×2 (09:21→17:09)
[2020-06-10] MEDS: [UNRECOGNIZED DRUG - OTHER] SCH ×2 (09:21→17:09)
[2020-06-10] MEDS: METOPROLOL TARTRATE 25 MG TAB PO SCH (09:22)
[2020-06-10] MEDS ORDERED: PHARMACY GLYCEMIC MGMT CONSULT PRN (09:26)
--- NOTE | 2020-06-10 09:57 | Pharmacy Report ---
Pharmacy Glycemic Short Note 2 - Date of Service June 10, 2020 - Glycemic Short BSG Results (Last 24 hours): 06/09/20 06/09/20 06/09/20 12:15 17:20 20:30 Glucose 119 H POC Glucose 77 122 H 06/09/20 06/10/20 06/10/20 23:07 05:44 07:40 Glucose 99 POC Glucose 209 H 83 OUTPATIENT ANTIDIABETIC REGIMEN: * Tresiba 100 units Qam, Novolog 50 units TIDM * A1c 5.4% on admission ASSESSMENT: * Type 2 diabetic admitted with AV block. BSG at time of consult 83 mg/dL - patient NPO pending further cardio workup * Plan to hold AM basal insulin and will reassess at lunch time. On last admission 05/18/20 patient requiring significantly lower amounts of insulin then outpatient regimen. Had been on Lantus 7 units bid and BSGs had been well controlled. (only admitted for 2 days) * Plan to start novolog stress ~2 dosing. May need to titrate up, will follow. PLAN FOR INPATIENT GLYCEMIC CONTROL: * Hold outpatient oral diabetes medications * Basal insulin * Lantus 20-40 units pending BSG * Bolus insulin * NovoLog per scale ACHS or Q6hrs while NPO * Goal Range: Low 120 mg/dL - High 150 mg/dL * Correction Factor: 30 mg/dL/unit * Nutritional / Prandial insulin per carb ratio of 1 unit per 10 grams CHO consumed PLAN FOR DISCHARGE: * tbd
[2020-06-10] MEDS: FOLIC ACID 1 MG TAB PO SCH (10:29)
[2020-06-10] MEDS: allopurinoL 300 MG TAB PO SCH (10:29)
[2020-06-10] MEDS: ASPIRIN 81 MG ECTAB PO SCH (10:29)
[2020-06-10] MEDS: LOSARTAN POTASSIUM 25 MG TAB PO SCH (10:29)
[2020-06-10] MEDS: FUROSEMIDE 80 MG TAB PO SCH (10:29)
[2020-06-10] MEDS: OMEGA-3 (PURIFIED FISH OIL) 1 GM CAP PO SCH (10:29)
[2020-06-10] MEDS: PANTOprazole 40 MG TAB PO SCH ×2 (10:30→20:38)
[2020-06-10] MEDS: FLUTICASONE PROPIONATE NA SPR 16 GM BTL SCH (10:30)
[2020-06-10] MEDS: PROBENECID 500 MG TAB PO SCH ×2 (10:31→20:39)
[2020-06-10] MEDS: TRIAMCINOLONE ACET 0.1% OINT 15 GM TUBE TOP SCH ×2 (10:31→20:36)
[2020-06-10] MEDS: UMECLIDINIUM BROMIDE 62.5MCG/BLISTER 7 PUFFS/INHALER INH SCH (10:31)
--- NOTE | 2020-06-10 12:20 | Electrocardiogram Report ---
Test Reason : Blood Pressure : / mmHG Vent. Rate : 049 BPM Atrial Rate : 072 BPM P-R Int : 000 ms QRS Dur : 088 ms QT Int : 478 ms P-R-T Axes : 063 038 037 degrees QTc Int : 431 ms Sinus rhythm with 2nd degree A-V block (Mobitz I) Abnormal ECG When compared with ECG of 18-MAY-2020 07:48, No significant change was found Confirmed by Jose Eduardo Parson ([id number]) on 06/10/2020 12:20:24 PM Referred By: Dwaine Rolon Confirmed By:Jose Eduardo Parson
--- NOTE | 2020-06-10 12:28 | Electrocardiogram Report ---
Test Reason : Blood Pressure : / mmHG Vent. Rate : 060 BPM Atrial Rate : 073 BPM P-R Int : 000 ms QRS Dur : 076 ms QT Int : 450 ms P-R-T Axes : 049 060 061 degrees QTc Int : 450 ms Sinus rhythm with 2nd degree A-V block (Mobitz I) Low voltage QRS Abnormal ECG When compared with ECG of 09-JUN-2020 11:50, (unconfirmed) No significant change Confirmed by Jose Eduardo Parson ([id number]) on 06/10/2020 12:28:01 PM Referred By: Dwaine Rolon Confirmed By:Jose Eduardo Parson
--- NOTE | 2020-06-10 12:56 | Electrocardiogram Report ---
Test Reason : Blood Pressure : / mmHG Vent. Rate : 060 BPM Atrial Rate : 060 BPM P-R Int : 376 ms QRS Dur : 084 ms QT Int : 452 ms P-R-T Axes : 052 058 025 degrees QTc Int : 452 ms Sinus rhythm with Mobitz I (Wenckebach) block Otherwise normal ECG When compared with ECG of 09-JUN-2020 18:10, (unconfirmed) No significant change Confirmed by Jose Eduardo Parson ([id number]) on 06/10/2020 12:55:47 PM Referred By: Dwaine Rolon Confirmed By:Jose Eduardo Parson
--- NOTE | 2020-06-10 15:05 | Hospitalist Progress Note ---
Date of Service June 10, 2020 Assessment & Plan (1) Atrioventricular block, Mobitz type 1, Wenckejory: High-grade AV block EKG showed sinus rhythm with Mobitz type I block Beta-marciano held Plan for permanent pacemaker placement Appreciate cardiology input Avoid any AV lynn blocking agents Monitor on telemetry N.p.o. after midnight (2) Severe anemia: Chronic anemia Multifactorial Follows with hematology Dr. Enrrique Christine as an outpatient S/P 1 unit PRBCs Received IV iron and B12 infusions Due for vitamin B12 injection tomorrow (3) Coronary artery disease: CAD S/P CABG Continue aspirin, Lipitor, losartan Metoprolol held due to AV blocks (4) HLD (hyperlipidemia): - Cont statin therapy (5) COPD (chronic obstructive pulmonary disease): Uses 2.5 L supplemental oxygen with Cpap at HS Also supplemental oxygen dependent 2-3 L with ambulation Continue home inhalers (6) CKD (chronic kidney disease), stage IV: Creatinine at baseline Monitor renal function (7) Diabetes mellitus type 2 in obese: Last A1C 5.4 on 05/18/20 Continue Insulin therapy while hospitalized Monitor BGs (8) Morbid obesity: BMI 45.8 (9) DVT prophylaxis: -Heparin SQ Hold AM dose of heprin for Pacemaker placement CODE STATUS: Full code Admission and Anticipated Discharge Date Admission Date: June 09, 2020 Subjective Patient is seen and examined at bedside States having dyspnea on exertion Sitting in chair this morning comfortably Denies chest pain, dizziness, nausea, abdominal pain Offers no new complaints Plan for pacemaker placement tomorrow Review of Systems Review of Systems: All systems reviewed & are unremarkable except as noted in HPI & below Physical Exam Physical Exam: Physical Exam: Vitals signs as noted above General Appearance:Morbidly obese, no apparent distress Head: normocephalic, Atraumatic Eyes: normal inspection, EOMI Neck: supple, Trachea midline Respiratory/Chest: Normal breath sounds, CTA, +Port Cardiovascular: S1, S2, No murmur Abdomen/GI:Soft, Non tender, Bowel sounds present Extremities/Musculoskeletal:normal inspection, B/L LE edema Neurologic/Psych:AAOX3, grossly no focal neurological deficits Skin: normal color, warm Results & Data Results & Data ([facility]) Vital Signs (Past 12 Hours) Vital Signs Temp Pulse Resp BP Pulse Ox 06/10/20 12:00 36.8 C 89 18 142/68 H 98 06/10/20 07:09 36.8 C 55 L 19 125/62 96 06/10/20 04:38 36.4 C L 67 20 154/68 H 96 Laboratory Results Short CBC 06/10/20 Range/Units 05:44 WBC 11.86 H (4.8-10.8) K/uL Hgb 10.5 L (14.0-18.0) g/dL Hct 32.1 L (42-52) % Plt Count 281 (130-400) K/uL BMP 06/10/20 05:44 Sodium 137 Potassium 4.0 Chloride 104 Carbon Dioxide 28 BUN 38 H Creatinine 2.06 H Glucose 99 Calcium 8.0 L
--- NOTE | 2020-06-10 16:18 | Cardiology Progress Note ---
Date of Service June 10, 2020 Assessment & Plan (1) High-grade atrioventricular block: (2) Symptomatic bradycardia: (3) Symptomatic anemia: (4) SOB (shortness of breath): (5) Sleep apnea: (6) Coronary artery disease: (7) TIA (transient ischemic attack): (8) Hx of CABG: (9) CKD (chronic kidney disease), stage IV: (10) Diabetes mellitus type 2 in obese: (11) Morbid obesity: (12) COPD (chronic obstructive pulmonary disease): Given ongoing symptoms and findings of high-grade block on only low-dose beta-marciano that is necessary for chronic stable angina I believe the most prudent course of action at this point would be for permanent pacemaker placement. He is tolerated 2 more units and hemoglobin is now greater than 10. Anticipate dual-chamber permanent pacemaker placement tomorrow in the p.m. Okay for patient to have liquid breakfast and n.p.o. afterwards. Obviously, will continue to hold beta-marciano. Admission and Anticipated Discharge Date Admission Date: June 09, 2020 Subjective Patient seen and examined, chart reviewed. Patient is feeling much better since receiving 2 units of packed red blood cells yesterday. Continues to deny palpi tations, lightheadedness or dizziness. Telemetry reviewed: Continued high-grade AV block overnight. The majority of the rhythm at this point is Wenkebach. Review of Systems Review of Systems: All systems reviewed & are unremarkable except as noted in HPI & below Physical Exam Physical Exam: General: Awake, alert and oriented x 3. No acute distress. HEENT: Normocephalic, atraumatic. Pupils equal, round and reactive to light an d accommodation. Extraocular muscles are intact. Anicteric sclera. Moist mucous membranes. Neck: No JVD. No bruit. Cardiovascular: Regular. Positive S-4. Normal S-1 and S-2. No S-3. No murmu rs or rubs. Pulmonary: Clear to auscultation B/L. No rales, rhonchi or wheezing Abdomen: Bowel sounds x 4, soft. No rebound, guarding or tenderness. No organomegaly. Extremities: No clubbing, cyanosis or edema. +2 pedal pulses bilaterally. Skin: Warm and dry. Results & Data ([facility]) Vital Signs (Past 12 Hours) Vital Signs Temp Pulse Resp BP Pulse Ox 06/10/20 15:45 36.5 C 66 18 136/57 L 96 06/10/20 12:00 36.8 C 89 18 142/68 H 98 06/10/20 07:09 36.8 C 55 L 19 125/62 96 06/10/20 04:38 36.4 C L 67 20 154/68 H 96
[2020-06-10] MEDS: ATORVASTATIN 40 MG TAB PO SCH (20:34)
[2020-06-10] MEDS: INSULIN GLARGINE SOLOSTAR 100 UNITS/ML 3 ML PEN SC SCH (20:34)
[2020-06-10] MEDS: HEPARIN SOD 5,000 UNIT/0.5 ML VIAL SQ SCH (20:37)
[2020-06-11] MEDS: [UNRECOGNIZED DRUG - OTHER] SCH ×4 (00:49→23:52)
[2020-06-11] MEDS: RESTASIS~ORDER AWAITING ACTION SCH ×4 (00:50→23:52)
[2020-06-11] MEDS: INSULIN ASPART 100 UNITS/ML 3 ML PEN SC SCH ×6 (01:07→22:06)
[2020-06-11] MEDS: HEPARIN SOD 5,000 UNIT/0.5 ML VIAL SQ SCH ×4 (06:04→22:01)
[2020-06-11 06:11] LABS: Basophils # (auto) 0.02 K/uL (0-0.2); Basophils % (auto) 0.2 %; Eosinophils # (auto) 0.58 K/uL (0-0.5); Eosinophils % (auto) 6.9 %; Hematocrit (blood only) 32.8 % (42-52); Hemoglobin 10.6 g/dL (14.0-18.0); Immature Granulocytes # (auto) 0.02 K/uL (0.00-0.02); Immature Granulocytes % (auto) 0.2 %; Lymphocytes # (auto) 1.23 K/uL (1.2-3.4); Lymphocytes % (auto) 14.6 %; Mean Corpuscular Hemoglobin 28.8 pg (25-34); Mean Corpuscular Hgb Conc 32.3 g/dL (32-36); Mean Corpuscular Volume 89.1 fL (80-100); Mean Platelet Volume 9.6 fL (7.4-10.4); Monocytes # (auto) 0.32 K/uL (0.11-0.59); Monocytes % (auto) 3.8 %; Neutrophils # (auto) 6.25 K/uL (1.4-6.5); Neutrophils % (auto) 74.3 %; Platelet Count 274 K/uL (130-400); RDW Coefficient of Variation 17.1 % (11.5-14.5); RDW Standard Deviation 55.6 fL (36.4-46.3); Red Blood Count 3.68 M/uL (4.7-6.1); White Blood Count 8.42 K/uL (4.8-10.8)
[2020-06-11 06:45] LABS: BUN Creatinine Ratio 18.5 (10-20); Calcium 8.5 mg/dl (8.5-10.1); Creatinine Clr Calc Pharmacy 31.2 ml/min; Est GFR (Non-African American) 25.9; Magnesium 2.1 mg/dl (1.8-2.4); Potassium 3.8 mmol/L (3.5-5.1)
[2020-06-11] MEDS ORDERED: CYANOCOBALAMIN 1000 MCG/ML VIAL IM ONE (08:00)
[2020-06-11] MEDS: FLUTICASONE PROPIONATE NA SPR 16 GM BTL SCH (08:58)
[2020-06-11] MEDS: FUROSEMIDE 80 MG TAB PO SCH (08:58)
[2020-06-11] MEDS: FOLIC ACID 1 MG TAB PO SCH (08:58)
[2020-06-11] MEDS: UMECLIDINIUM BROMIDE 62.5MCG/BLISTER 7 PUFFS/INHALER INH SCH (08:58)
[2020-06-11] MEDS: allopurinoL 300 MG TAB PO SCH (08:58)
[2020-06-11] MEDS: PROBENECID 500 MG TAB PO SCH ×2 (08:58→22:02)
[2020-06-11] MEDS: OMEGA-3 (PURIFIED FISH OIL) 1 GM CAP PO SCH (08:59)
[2020-06-11] MEDS: ASPIRIN 81 MG ECTAB PO SCH (08:59)
[2020-06-11] MEDS: LOSARTAN POTASSIUM 25 MG TAB PO SCH (08:59)
[2020-06-11] MEDS: PANTOprazole 40 MG TAB PO SCH ×2 (08:59→22:00)
[2020-06-11] MEDS: TRIAMCINOLONE ACET 0.1% OINT 15 GM TUBE TOP SCH ×2 (09:00→22:02)
--- NOTE | 2020-06-11 12:07 | Hospitalist Progress Note ---
Date of Service June 11, 2020 Assessment & Plan (1) Atrioventricular block, Mobitz type 1, [place]: High-grade AV block EKG showed sinus rhythm with Mobitz type I block Beta-marciano held Plan for permanent pacemaker placement today Avoid any AV lynn blocking agents Monitor on telemetry N.p.o. after midnight (2) Severe anemia: Chronic anemia Multifactorial Follows with hematology Dr. Enrrique Christine as an outpatient S/P 1 unit PRBCs Received IV iron and B12 infusions Due for vitamin B12 injection tomorrow (3) Coronary artery disease: CAD S/P CABG Continue aspirin, Lipitor, losartan Metoprolol held due to AV blocks (4) HLD (hyperlipidemia): Cont statin therapy (5) COPD (chronic obstructive pulmonary disease): Uses 2.5 L supplemental oxygen with Cpap at HS Also supplemental oxygen dependent 2-3 L with ambulation Continue home inhalers (6) CKD (chronic kidney disease), stage IV: Creatinine at baseline Monitor renal function (7) Diabetes mellitus type 2 in obese: Last A1C 5.4 on 05/18/20 Continue Insulin therapy while hospitalized Monitor BGs (8) Morbid obesity: BMI 45.8 (9) DVT prophylaxis: Heparin SQ Hold AM dose of heparin for Pacemaker placement CODE STATUS: Full code Labs Checked ROS-No Headache, No Visual Changes, No Nausea, No Vomiting, No Fever, No Chills, No Neck Pain or Stiffness, No Chest Pain, No Palpitations, No SOB, No CAPONE, No Cough, No Sputum, No Wheezing, No Abdominal Pain, No Diarrhea, No Hematemesis, No Hemoptysis, No Unexpected Weight Loss, No Flank pain, No Melena, No Hematochezia, No Frequency, No Urgency, No Burning, No Hematuria, No Rashes, No Diaphoresis. Appetite is Normal +Palpitations/Skipping Physical Exam Gen-AAO x 3, NAD, Afebrile, obese Head-NCAT, EOMI, PERRLA, Anicteric Sclera, No Posterior Pharyngeal Erythema Neck-Supple, No JVD, No Thyromegaly, No Masses, No LAD, No Bruits Lungs-Clear to Auscultation Bilaterally, No Rales, No Rhonchi, No Wheezing, No Crepitus Chest-No S4, +S1, +S2, No S3, No Murmurs, No Rubs, No Gallops, No Ectopy Abdomen-Soft, Bowel Sounds Present, Non Tender, Obese, Non Distended, No Hepatomegaly, No Splenomegaly, No Palpable Masses, No Rebound, No Rigidity, No Guarding Musculoskeletal-Full Range of Motion Bilaterally, No CVAT Extremities-No Cyanosis, No Clubbing, No Edema Nuero-Cranial Nerves II-XII grossly intact, Motor WNL, DTRs WNL, Strength WNL, Non Focal Psych-Normal Mood Admission and Anticipated Discharge Date Admission Date: June 09, 2020 Results & Data Results & Data ([facility]) Vital Signs (Past 12 Hours) Vital Signs Temp Pulse Pulse Resp BP BP Pulse Ox 06/11/20 11:10 36.5 C 65 20 129/66 94 06/11/20 04:20 36.4 C L 61 16 152/80 H 96
--- NOTE | 2020-06-11 13:07 | Pharmacy Report ---
Pharmacy Glycemic Short Note 2 - Date of Service June 11, 2020 - Glycemic Short BSG Results (Last 24 hours): 06/10/20 06/10/20 06/11/20 16:07 20:16 00:07 Glucose POC Glucose 103 H 184 H 165 H 06/11/20 06/11/20 06/11/20 04:23 05:38 07:40 Glucose 123 H POC Glucose 127 H 125 H 06/11/20 11:09 Glucose POC Glucose 138 H OUTPATIENT ANTIDIABETIC REGIMEN: * Tresiba 100 units Qam, Novolog 50 units TIDM * A1c 5.4% on admission ASSESSMENT: 06/11 * Patient received total of 32 units of insulin yesterday, of which 20 units were basal insulin * Fasting BSG within range at 123 mg/dL - will continue with scale for Lantus dosing * Per notes, patient to get pacemaker placed this evening 06/10 * Type 2 diabetic admitted with AV block. BSG at time of consult 83 mg/dL - patient NPO pending further cardio workup * Plan to hold AM basal insulin and will reassess at lunch time. On last admission 05/18/20 patient requiring significantly lower amounts of insulin then outpatient regimen. Had been on Lantus 7 units bid and BSGs had been well controlled. (only admitted for 2 days) * Plan to start novolog stress ~2 dosing. May need to titrate up, will follow. PLAN FOR INPATIENT GLYCEMIC CONTROL: * Hold outpatient oral diabetes medications * Basal insulin * Lantus 15-20 units HS * Bolus insulin * NovoLog per scale ACHS or Q6hrs while NPO * Goal Range: Low 120 mg/dL - High 150 mg/dL * Correction Factor: 25 mg/dL/unit * Nutritional / Prandial insulin per carb ratio of 1 unit per 8 grams CHO consumed PLAN FOR DISCHARGE: * A1c 5.4% - goal for patient ~8%. A1c could be altered due to various disease states (anemia). * Patient on very large amounts of insulin outpatient, will need to assess to see if he is experiencing low BSGs outpatient since insulin amount currently in hospital is minimal.
--- NOTE | 2020-06-11 13:10 | Cardiology Progress Note ---
Date of Service June 11, 2020 Assessment & Plan (1) High-grade atrioventricular block: (2) Symptomatic bradycardia: (3) Symptomatic anemia: (4) SOB (shortness of breath): (5) Sleep apnea: (6) Coronary artery disease: (7) TIA (transient ischemic attack): (8) Hx of CABG: (9) CKD (chronic kidney disease), stage IV: (10) Diabetes mellitus type 2 in obese: (11) Morbid obesity: (12) COPD (chronic obstructive pulmonary disease): Given ongoing symptoms and findings of high-grade block on only low-dose beta-marciano that is necessary for chronic stable angina I believe the most prudent course of action at this point would be for permanent pacemaker placement. He is tolerated 2 more units and hemoglobin is now greater than 10. Anticipate dual-chamber permanent pacemaker placement this P.M. will restart metoprolol this P.M. after pacer placed anticipate d/c to home in AM Admission and Anticipated Discharge Date Admission Date: June 09, 2020 Subjective Patient seen and examined, chart reviewed. Patient is feeling much better since receiving 2 units of packed red blood cells on 06/09. Continues to deny palpitations, lightheadedness or dizziness. Telemetry reviewed: Continued high-grade AV block overnight. The majority of the rhythm at this point is Wenkebach. Review of Systems Review of Systems: All systems reviewed & are unremarkable except as noted in HPI & below Physical Exam Physical Exam: General: Awake, alert and oriented x 3. No acute distress. HEENT: Normocephalic, atraumatic. Pupils equal, round and reactive to light and accommodation. Extraocular muscles are intact. Anicteric sclera. Moist mucous membranes. Neck: No JVD. No bruit. Cardiovascular: Regular. Positive S-4. Normal S-1 and S-2. No S-3. No murmurs or rubs. Pulmonary: Clear to auscultation B/L. No rales, rhonchi or wheezing Abdomen: Bowel sounds x 4, soft. No rebound, guarding or tenderness. No organomegaly. Extremities: No clubbing, cyanosis or edema. +2 pedal pulses bilaterally. Skin: Warm and dry. Results & Data ([facility]) Vital Signs (Past 12 Hours) Vital Signs Temp Pulse Pulse Pulse Resp BP BP 06/11/20 11:10 36.5 C 65 20 129/66 06/11/20 08:00 46 L 06/11/20 04:20 36.4 C L 61 16 152/80 H Pulse Ox 06/11/20 11:10 94 06/11/20 08:00 06/11/20 04:20 96
--- NOTE | 2020-06-11 18:43 | History & Physical Bridge Note ---
Date of Service June 11, 2020 History & Physical Bridge Note I have examined the patient, reviewed the History & Physical and in the interval since the performance of the History & Physical I have noted the following changes of clinical significance: pt with intermittent CHB for a pacemaker; discussed the procedure and potential risks with the patient; consents signed
--- NOTE | 2020-06-11 18:43 | Pre Anesthesia Assessment ---
Date of Service June 11, 2020 Pre Sedation Assessment Vital Signs Temp Pulse Pulse Pulse Resp BP BP 06/11/20 16:00 54 L 06/11/20 15:49 36.6 C 96 H 20 134/74 06/11/20 11:10 36.5 C 65 20 129/66 06/11/20 08:00 46 L 06/11/20 04:20 36.4 C L 61 16 152/80 H 06/11/20 00:00 74 06/10/20 23:53 36.3 C L 62 16 134/65 06/10/20 19:55 36.8 C 64 12 145/71 H Pulse Ox 06/11/20 16:00 06/11/20 15:49 06/11/20 11:10 94 06/11/20 08:00 06/11/20 04:20 96 06/11/20 00:00 06/10/20 23:53 95 06/10/20 19:55 96 Cardiovascular + bradycardic Respiratory normal respiratory effort, lungs clear to auscultation Pre-Sedation Airway Assessment Smoking Status: Never smoker Thyromental Distance: < 3.5 Finger Breadths Oral Cavity: + Dentures and + WNL Mallampati Class: II ASA: ASA3 NPO Status Date of Last Intake of Fluids: 06/11/20 Time of Last Intake of Fluids: 08:01 Date of Last Intake of Solid Food: 06/11/20 Time of Last Intake of Solid Foods: 08:00 Procedure Planning Contraindications for Sedation: none Current Medications Reviewed: Yes Notes The planned sedation has been discussed with the patient. Informed Consent was obtained. I have identified the patient, determined the appropriateness of sedation and have assessed the patient immediately prior to the procedure. All medicine(s) and interventions are by my order.
[2020-06-11] MEDS ORDERED: MIDAZOLAM HCL 5 MG/ML 1 ML VIAL ONE (18:44)
[2020-06-11] MEDS ORDERED: fentaNYL citrate 100 MCG/2 ML VIAL ONE ×2 (18:44→19:27)
[2020-06-11] MEDS ORDERED: BUPIVACAINE 0.25% 30 ML VIAL ONE (19:14)
[2020-06-11] MEDS ORDERED: LIDOCAINE HCL 1% 20 ML VIAL ONE (19:14)
[2020-06-11] MEDS ORDERED: BACITRACIN INJ 50,000 UNIT VIAL ONE (19:17)
[2020-06-11] MEDS ORDERED: MIDAZOLAM HCL 1 MG/ML 2ML VIAL ONE (19:27)
--- NOTE | 2020-06-11 20:22 | Operative Report ---
Post Operative Report Pre & Post Diagnosis Intermittent CHB Operation Date: 06/11/20 15:30 <No data on this case meets the specified criteria> I identified the patient and participated in the time-out.: Yes Procedure Operation Date: 06/11/20 15:30 Actual Procedures p Pacer with A/V Leads (Dual) - Ariella Rosenberg DO Surgeon Ariella Rosenberg, DO Underlay Stitcher none Estimated Blood Loss 25 Findings Consistent with Post-Op Diagnosis Specimens none Description of Procedure see official report I attest to the content of the Intraoperative Record and any orders documented therein. Any exceptions are noted below.
--- NOTE | 2020-06-11 20:22 | Post Anesthesia Assessment ---
Date of Service June 11, 2020 Post Sedation Assessment Vital Signs Temp Pulse Pulse Pulse Resp BP BP 06/11/20 16:00 54 L 06/11/20 15:49 36.6 C 96 H 20 134/74 06/11/20 11:10 36.5 C 65 20 129/66 06/11/20 08:00 46 L 06/11/20 04:20 36.4 C L 61 16 152/80 H 06/11/20 00:00 74 06/10/20 23:53 36.3 C L 62 16 134/65 Pulse Ox 06/11/20 16:00 06/11/20 15:49 06/11/20 11:10 94 06/11/20 08:00 06/11/20 04:20 96 06/11/20 00:00 06/10/20 23:53 95 Recovery Score Activity: Moves 4 extremities Respiration: Deep Breath/Cough Circulation: +/-20% PreAnes Value Consciousness: Fully Awake Oxygen Saturation: > 92% On Room Air Discharge Sedation Level of Care: Fast Track Phase II Post Sedation Plan On clinical assessment, the patient appears to have tolerated the sedation without complications. Patient is recovering as anticipated. Patient will continue to be monitored by nursing and may be discharged when sedation discharge criteria are met per below protocol. Upon Completions of procedure up to 15 minutes continue every 5 minute vital signs and the P.A.R. score; then discharge to a Phase I or Fast Track to Phase II per the following guidelines: * Discharge Patient to appropriate Phase II area if PAR is 8 or greater or return to pre- procedure baseline. The post - procedure orders will be as directed. * If PAR score is less than 8 or not return to pre-procedure baseline then patient will follow Phase I monitoring till PAR is reached for Phase II. The Phase I may be done in procedure room or may call to secure a Phase I area. * If naloxone or flumazenil are used for reversal, hold in Phase I for continued monitoring from when last reversal dose was given for a minimum of 60 minutes or longer pending the nurse and/or physician discretion of patient condition before discharge to Phase II. Please call the Sedation Physician to re-evaluate and complete post-note for discharge to Phase II area. Do NOT discharge from procedure sedation or Phase 1 until post- sedation evaluation note is complete by procedure /sedation MD Sedation Discharge Instructions to be given to the patient at discharge to home.
[2020-06-11] MEDS: METOPROLOL TARTRATE 25 MG TAB PO SCH ×2 (22:03→22:24)
[2020-06-11] MEDS: ATORVASTATIN 40 MG TAB PO SCH (22:03)
[2020-06-11] MEDS: INSULIN GLARGINE SOLOSTAR 100 UNITS/ML 3 ML PEN SC SCH (22:07)
[2020-06-11] MEDS: traMADol HCL 50 MG TABLET PO PRN (23:52)
[2020-06-12] MEDS: HEPARIN SOD 5,000 UNIT/0.5 ML VIAL SQ SCH (06:16)
[2020-06-12] MEDS: traMADol HCL 50 MG TABLET PO PRN (06:21)
[2020-06-12 06:37] LABS: Hematocrit (blood only) 34.7 % (42-52); Mean Corpuscular Hemoglobin 28.4 pg (25-34); Mean Corpuscular Hgb Conc 31.7 g/dL (32-36); Mean Corpuscular Volume 89.7 fL (80-100); Mean Platelet Volume 9.1 fL (7.4-10.4); Platelet Count 250 K/uL (130-400); RDW Coefficient of Variation 16.9 % (11.5-14.5); RDW Standard Deviation 55.3 fL (36.4-46.3); Red Blood Count 3.87 M/uL (4.7-6.1); White Blood Count 10.37 K/uL (4.8-10.8)
[2020-06-12 07:17] LABS: BUN Creatinine Ratio 18.7 (10-20); Calcium 8.6 mg/dl (8.5-10.1); Creatinine Clr Calc Pharmacy 31.4 ml/min; Est GFR (African American) 30.8; Est GFR (Non-African American) 26.5; Potassium 4.1 mmol/L (3.5-5.1)
[2020-06-12] MEDS: [UNRECOGNIZED DRUG - OTHER] SCH (07:31)
[2020-06-12] MEDS: RESTASIS~ORDER AWAITING ACTION SCH (07:31)
[2020-06-12] MEDS: TRIAMCINOLONE ACET 0.1% OINT 15 GM TUBE TOP SCH (08:34)
[2020-06-12] MEDS: UMECLIDINIUM BROMIDE 62.5MCG/BLISTER 7 PUFFS/INHALER INH SCH (08:35)
[2020-06-12] MEDS: INSULIN ASPART 100 UNITS/ML 3 ML PEN SC SCH (08:36)
[2020-06-12] MEDS: OMEGA-3 (PURIFIED FISH OIL) 1 GM CAP PO SCH (08:37)
[2020-06-12] MEDS: PANTOprazole 40 MG TAB PO SCH (08:37)
[2020-06-12] MEDS: FLUTICASONE PROPIONATE NA SPR 16 GM BTL SCH (08:38)
[2020-06-12] MEDS: ASPIRIN 81 MG ECTAB PO SCH (08:38)
[2020-06-12] MEDS: PROBENECID 500 MG TAB PO SCH (08:38)
[2020-06-12] MEDS: FOLIC ACID 1 MG TAB PO SCH (08:38)
[2020-06-12] MEDS: allopurinoL 300 MG TAB PO SCH (08:38)
--- NOTE | 2020-06-12 08:38 | XRay Report ---
XR chest 2V PA/lateral CLINICAL HISTORY: s/p ppm COMPARISON STUDY: Chest radiograph June 09, 2020. FINDINGS: There is no pneumothorax following placement of a dual lead right subclavian pacemaker. Urvashi d tips project over the right atrial appendage and right ventricle. A left subclavian [id number] i s noted. The tip of the [id number]-[id number] may be within the azygos vein. There are median sternotomy wire s and mediastinal surgical clips. Moderate cardiomegaly is unchanged. Mild interstitial prominence is unchanged. IMPRESSION: 1. No pneumothorax following placement of a dual lead right subclavian pacemaker. 2. Tip of left subclavian [id number]-Ncat may be within the azygos vein. ACT 112: Negative or not required by law. Electronically signed by: Vitaly Tadeo M.D. 06/12/2020 8:37 AM
[2020-06-12] MEDS: FUROSEMIDE 80 MG TAB PO SCH (08:50)
[2020-06-12] MEDS: LOSARTAN POTASSIUM 25 MG TAB PO SCH (08:50)
[2020-06-12] MEDS: METOPROLOL TARTRATE 25 MG TAB PO SCH (08:51)
--- NOTE | 2020-06-12 08:52 | Discharge Summary ---
Date of Service June 12, 2020 Admission HPI Per Admitting Provider This is a 79-year-old male with PMHx of CAD, chronic stable angina, history of coronary stent, bypass, HTN, HLD, second-degree AV heart block, anemia with recent iron and B12 transfusions, COPD, DM type II, morbid obesity, osteoarthritis, GERD, and BPH who presents to the hospital after conversation with cardiology office regarding Zio patch abnormal readings. He follows with cardiology with Dr. Rolon. Pt was referred to the ER for possible pacemaker placement. Pt reports last evening was not feeling himself. He was having deep left lower chest pain, which does not change depending on rest versus exertion. He admits to some sweating and nausea, Denies vomiting, headache, palpitations, lightheadedness. He reports recently having lower blood counts and needing transfusions, which has been very worrisome. Pt is concerned that if his blood count is not high enough he will not be able to get the pacemaker soon. He lives at home with his who has dementia, and son who is in a wheelchair. 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 Admission Exam Per Admitting Provider General: awake, alert, no apparent distress, morbidly obese with BMI 45.8 Head: Normocephalic, atraumatic ENT: PERRL, EOMI, no pharyngeal exudate, mucous membranes moist Chest: Clear to auscultation, on room air, faint wheeze at left base, no rhonchi or rales. Mediport accessed in left chest wall. Cardiac: Bradycardic, long pauses, no murmur, no JVD, normal peripheral pulses, good capillary refill Abdominal: NABS x 4 quadrants, soft, obese, nondistended, nontender to palpation, no rebound or guarding Extremities: Normal inspection, 1+ peripheral edema, no pitting, no erythema, calfs nontender to palpation Psych: Normal mood and affect Neuro: AAO x 3, strength intact bilaterally and rated 5/5, no motor deficits, speech is clear, no peripheral sensory deficits Principal Diagnosis (1) Atrioventricular block, Mobitz type 1, Wenckebach: (2) Severe anemia: (3) Coronary artery disease: (4) HLD (hyperlipidemia): (5) COPD (chronic obstructive pulmonary disease): (6) CKD (chronic kidney disease), stage IV: (7) Diabetes mellitus type 2 in obese: (8) Morbid obesity: Discharge Exam See below Discharge Data Allergies Allergy/AdvReac Type Severity Reaction Status Date / Time methylprednisolone AdvReac Severe AMS Verified 06/09/20 12:41 hydromorphone [From Dilaudid] AdvReac Intermediate Nausea Verified 06/09/20 12:41 prednisone AdvReac Unknown INCREASE Verified 06/09/20 12:41 BLOOD SUGAR Consultations 06/09/20 14:16 ED Decision to Admit Stat 06/09/20 15:04 Consult Cardiology Routine Procedures Performed Operation Date: 06/11/20 15:30 Actual Procedures p Pacer with A/V Leads (Dual) - Ariella Rosenberg DO Ordered Studies 06/11/20 10:45 EP Lab Images for PACS ONCE Current Diagnoses Anemia, unspecified (06/09/20) Type 2 diabetes mellitus with other specified complication (06/09/20) Morbid (severe) obesity due to excess calories (06/09/20) Obesity, unspecified (06/09/20) Hyperlipidemia, unspecified (06/09/20) Transient cerebral ischemic attack, unspecified (06/09/20) Sleep apnea, unspecified (06/09/20) Atherosclerotic heart disease of [place] coronary artery without angina pectoris (06/09/20) Atrioventricular block, second degree (06/09/20) Other atrioventricular block (06/09/20) Chronic obstructive pulmonary disease, unspecified (06/09/20) Chronic kidney disease, stage 4 (severe) (06/09/20) Bradycardia, unspecified (06/09/20) Shortness of breath (06/09/20) Encounter for prophylactic measures, unspecified (06/09/20) Presence of aortocoronary bypass graft (06/09/20) Allergies methylprednisolone Adverse Reaction (Severe, Verified 06/09/20 12:41) AMS hydromorphone [From Dilaudid] Adverse Reaction (Intermediate, Verified 06/09/20 12:41) Nausea prednisone Adverse Reaction (Unknown, Verified 06/09/20 12:41) INCREASE BLOOD SUGAR Height/Weight/Isolation Height 5 ft 4 in Weight 116.4 kg Chemistry 06/11/20 06/12/20 05:38 06:25 Sodium 136 137 Potassium 3.8 4.1 Chloride 103 103 Carbon Dioxide 28 30 Anion Gap 5.0 4.0 BUN 43 H 43 H Creatinine 2.34 H 2.29 H Glucose 123 H 90 Microbiology 06/09/20 13:55 Urine,Clean Catch Urine Culture - Final Alpha strep. not enterococcus Hospital Course (1) Atrioventricular block, Mobitz type 1, Wenckebach: High-grade AV block EKG showed sinus rhythm with Mobitz type I block Beta-marciano held s/p permanent pacemaker placement 06/[address] home [facility] today (2) Severe anemia: Chronic anemia Multifactorial Follows with hematology Dr. Enrrique Christine as an outpatient S/P 1 unit PRBCs Received IV iron and B12 infusions (3) Coronary artery disease: CAD S/P CABG Continue aspirin, Lipitor, losartan Metoprolol held due to AV blocks (4) HLD (hyperlipidemia): Cont statin therapy (5) COPD (chronic obstructive pulmonary disease): Uses 2.5 L supplemental oxygen with Cpap at HS Also supplemental oxygen dependent 2-3 L with ambulation Continue home inhalers (6) CKD (chronic kidney disease), stage IV: Creatinine at baseline Monitor renal function (7) Diabetes mellitus type 2 in obese: Last A1C 5.4 on 05/18/20 Continue Insulin therapy while hospitalized Monitor BGs (8) Morbid obesity: BMI 45.8 (9) DVT prophylaxis: Heparin SQ Hold AM dose of heparin for Pacemaker placement CODE STATUS: Full code Labs Checked DC home today c [facility] ROS-No Headache, No Visual Changes, No Nausea, No Vomiting, No Fever, No Chills, No Neck Pain or Stiffness, No Chest Pain, No Palpitations, No SOB, No CAPONE, No Cough, No Sputum, No Wheezing, No Abdominal Pain, No Diarrhea, No Hematemesis, No Hemoptysis, No Unexpected Weight Loss, No Flank pain, No Melena, No Hematochezia, No Frequency, No Urgency, No Burning, No Hematuria, No Rashes, No Diaphoresis. Appetite is Normal No Palpitations/Skipping, Sore Right upper chest and R shoulder Physical Exam Gen-AAO x 3, NAD, Afebrile, obese, R Arm Sling, Incision CDI Head-NCAT, EOMI, PERRLA, Anicteric Sclera, No Posterior Pharyngeal Erythema Neck-Supple, No JVD, No Thyromegaly, No Masses, No LAD, No Bruits Lungs-Clear to Auscultation Bilaterally, No Rales, No Rhonchi, No Wheezing, No Crepitus Chest-No S4, +S1, +S2, No S3, No Murmurs, No Rubs, No Gallops, No Ectopy Abdomen-Soft, Bowel Sounds Present, Non Tender, Obese, Non Distended, No Hepatomegaly, No Splenomegaly, No Palpable Masses, No Rebound, No Rigidity, No Guarding Musculoskeletal-Full Range of Motion Bilaterally, No CVAT Extremities-No Cyanosis, No Clubbing, No Edema Nuero-Cranial Nerves II-XII grossly intact, Motor WNL, DTRs WNL, Strength WNL, Non Focal Psych-Normal Mood Total Time Total Time Spent Total Time Spent (In Minutes): 45 min Total Time Includes: Examination of the Patient, Discharge Planning, Medication Reconciliation and Communication With Other Providers Discharge Plan Discharge Items Patient Disposition: Home - Home Health Services Reason For Visit: AV BLOCK Discharge Diagnosis: (1) Atrioventricular block, Mobitz type 1, Ervinnckebach: (2) Severe anemia: (3) Coronary artery disease: (4) HLD (hyperlipidemia): (5) COPD (chronic obstructive pulmonary disease): (6) CKD (chronic kidney disease), stage IV: (7) Diabetes mellitus type 2 in obese: (8) Morbid obesity: Condition on Discharge: Good Activity: As commented below Activity Comment: do not raise the right elbow over the right shoulder for 1 month Lifting: No more than 10 pounds Lifting Comment: do not lift more than 10 pounds with the right arm for 2 weeks Bathing: Keep incision dry Bathing Comment: keep dressing on and dry until wound check next week Sexual Activity: Wait until after follow-up appointment Exercise/Sports: Wait until after follow-up appointment Driving/Machine Use: After cleared by cards Weightbearing: Full weightbearing Non-emergency contact: Primary Care Provider and Anesthesia Resident Call non-emergency contact if: you have any medication questions and your pain is unusual for you Follow-up/Referrals: Dwaine Rolon DO [Physician] - (Call for appointment) Levy Stout MD [Primary Care Provider] - Ariella Rosenberg DO [Physician] - (Call for Appt) Diet: Carb Consistent or DM2 and Heart Healthy Addtl Attending Provider Instructions: device and wound check at [facility] cardiology next week Pending Studies at Discharge: No Stand-Alone Forms: My [facility], Smoking Cessation Medications and DC Order Prescriptions: New tramadol 50 mg Tablet 50 mg PO Q6H PRN (Reason: pain) Qty: 30 RF: 0 Continued Enbrel SureClick 50 mg/mL (0.98 mL) Pen Injector 1 dose subcut WK RF: 0 furosemide [Lasix] 80 mg Tablet 80 mg PO QAM RF: 0 Tresiba FlexTouch U-200 200 unit/mL (3 mL) Insulin Pen 100 unit SUBCUT QAM RF: 0 insulin aspart U-100 [Novolog Flexpen U-100 Insulin] 100 unit/mL (3 mL) Insulin Pen 50 unit SUBCUT TIDM Qty: 0 RF: 0 losartan 25 mg Tablet 25 mg PO DAILY RF: 0 atorvastatin 80 mg Tablet 80 mg PO QPM RF: 0 nitroglycerin [Nitrostat] 0.4 mg Tablet, Sublingual 0.4 mg Sublingual UD PRN (Reason: Chest Pain) RF: 0 fluticasone propionate [Flonase Allergy Relief] 50 mcg/actuation [place],Suspension 2 spray INTRANASAL DAILY RF: 0 probenecid 500 mg tablet 500 mg PO BID RF: 0 Restasis 0.05 % dropperette 1 drp OPB Q12 RF: 0 Victoza 3-Kei 0.6 mg/0.1 mL (18 mg/3 mL) pen injector 1.2 mg SUBCUT DAILY RF: 0 omeprazole 20 mg Tablet,Delayed Release (Dr/Ec) 20 mg PO BID Qty: 60 RF: 1 metoprolol tartrate 25 mg Tablet 12.5 mg PO BID Qty: 60 RF: 1 aspirin [Aspirin Low Dose] 81 mg Tablet,Delayed Release (Dr/Ec) 81 mg PO DAILY RF: 0 folic acid 1 mg tablet 1 mg PO DAILY RF: 0 fluorometholone 0.1 % drops,suspension 1 drp ophthalmic (eye) TID RF: 0 allopurinol 300 mg tablet 300 mg PO DAILY RF: 0 triamcinolone acetonide 0.1 % ointment 1 applic TOPICAL BID RF: 0 Incruse Ellipta 62.5 mcg/actuation Blister With Device 1 inh INHALATION DAILY RF: 0 albuterol sulfate 90 mcg/actuation Hfa Aerosol Inhaler 2 puff INHALATION Q4 PRN (Reason: sob,cough) RF: 0 Discontinued Vina-3 Fish Oil 300-1,000 mg Capsule 2 cap PO QAM RF: 0 tramadol 50 mg Tablet 50 mg PO Q6H PRN (Reason: Pain) RF: 0 Discharge Orders: Discharge Order (Routine); Ordered 06/12/20 Ordered By: Al Huntley Admission Data Admit Date/Time: 06/09/20 14:57 Attending Provider: Al Huntley Admit Provider: Lonnie Ervin Primary Care Provider: Levy Stout Other Providers: Lonnie Ervin ; Dwaine Rolon
[2020-06-12] MEDS: HEPARIN 100 UNIT/ML 5ML FLUSH FLUSH PRN (09:33)
--- NOTE | 2020-06-12 11:58 | Cardiology Progress Note ---
Date of Service June 12, 2020 Assessment & Plan (1) High-grade atrioventricular block: (2) Symptomatic bradycardia: (3) Symptomatic anemia: (4) SOB (shortness of breath): (5) Sleep apnea: (6) Coronary artery disease: (7) TIA (transient ischemic attack): (8) Hx of CABG: (9) CKD (chronic kidney disease), stage IV: (10) Diabetes mellitus type 2 in obese: (11) Morbid obesity: (12) COPD (chronic obstructive pulmonary disease): Status post dual-chamber permanent pacemaker placement. Tolerated well. Placement was confirmed by chest x-ray. Device interrogated by [employer] rep, functioning appropriately. Metoprolol has been restarted and tolerated well overnight. Okay to DC to home on current medications. We will follow up with me same day as device check in our office next week. Admission and Anticipated Discharge Date Admission Date: June 09, 2020 Subjective Patient seen and examined, chart reviewed. States that he feels well this a.m. Only slight discomfort at the pocket site. Otherwise denies chest pain, shortness of breath, palpitations, lightheadedness, dizziness or syncope. Telemetry reviewed: Atrially paced rhythm. Review of Systems Review of Systems: All systems reviewed & are unremarkable except as noted in HPI & below Physical Exam Physical Exam: General: Awake, alert and oriented x 3. No acute distress. HEENT: Normocephalic, atraumatic. Pupils equal, round and reactive to light and accommodation. Extraocular muscles are intact. Anicteric sclera. Moist mucous membranes. Neck: No JVD. No bruit. Cardiovascular: Regular. Positive S-4. Normal S-1 and S-2. No S-3. 3/6 holosystolic ejection murmur, left sternal border, mid-clavicular line with radiation to the axilla. No rubs. Pulmonary: Clear to auscultation bilaterally. No rales, rhonchi, or wheezing. Abdomen: Bowel sounds x 4, soft. No rebound, guarding or tenderness. No organomegaly. Extremities: No clubbing, cyanosis or edema. +2 pedal pulses bilaterally. Skin: Warm and dry. Results & Data ([facility]) Vital Signs (Past 12 Hours) Vital Signs Temp Pulse Pulse Pulse Resp BP Pulse Ox 06/12/20 09:49 37.0 C 60 16 100/63 98 06/12/20 08:41 60 100/63 06/12/20 07:55 37.0 C 96 H 16 98/61 L 98 06/12/20 04:06 36.6 C 67 18 107/66 89 L 06/12/20 00:20 87
--- NOTE | 2020-06-12 13:59 | Operative Report (OR) ---
DATE OF OPERATION: 06/11/2020 PREOPERATIVE DIAGNOSIS: Intermittent complete heart block. POSTOPERATIVE DIAGNOSIS: Intermittent complete heart block. PROCEDURE: Dual chamber rate responsive permanent pacemaker along with peripheral venogram under fluoroscopic guidance. SURGEON: Ariella Rosenberg DO. ASSISTANTS: None. ANESTHESIA: Monitored conscious sedation administered under my supervision by Nesha Pascual. Start time 07:12, end time 08:21. Total of 6 mg of Versed and 150 mcg of fentanyl. INTRAVENOUS FLUIDS: 93 mL. ANTIBIOTICS: 3 grams of Ancef. CONTRAST: 10 mL BLOOD LOSS: 25 mL. URINE OUTPUT: None. SPECIMENS: None. FINDINGS: See below. DRAINS: None. INDICATIONS: This is a 79-year-old gentleman with past medical history for obstructive sleep apnea on CPAP, TIA, history of a coronary artery disease with a history of a CABG x3 in 2008 as well as prior PCI to the RCA, most recent catheterization in 2017, two of the grafts were patent. Chronic kidney disease stage IV, diabetes, obesity, COPD, iron deficiency anemia where he gets iron infusions on a routine basis through his left sided chemo port and hyperlipidemia. The patient was admitted to [facility] secondary to intermittent complete heart block on a Zio patch, he was recommended a pacemaker prior to discharge. CONSENT: The patient was explained the risks, benefits and alternatives of procedure. Risks include but not limited to sudden cardiac , cardiac arrhythmias, cerebrovascular accident, myocardial infarction, injury to the blood vessels, chamber of the heart, lung, bleeding, and infection. The patient understood these risks and agreed with procedure as planned. Informed consent was obtained. DESCRIPTION OF THE PROCEDURE: The patient was brought into the electrophysiology lab in fasting state. He was connected to continuous cardiac monitoring. A timeout was performed to ensure patient identity and procedure correctly. He was prepped and draped over the right infraclavicular space in normal surgical standard fashion. Monitored conscious sedation was given throughout the procedure for patient's comfort level. [place] precautions were maintained throughout the procedure. 10 mL of 1% lidocaine, bupivacaine mixture were given in the right deltopectoral groove. Incision was made in right deltopectoral groove. Blunt dissection performed down to identify the cephalic vein; however, none could be identified, so peripheral venogram was performed using 10 mL of IV contrast to identify the axillary vein. Venous axillary access was obtained through a needlestick without any problems. Guidewire was inserted without any resistance. An 8-[place] sheath was inserted over the guidewire without any resistance. Dilator was removed and a second guidewire was inserted through the sheath to allow for retained venous access. Sheath was removed, flushed and reinserted over the dilator, then reinserted along the guidewires. Guidewire and dilator removed. The right ventricular lead was then advanced into right ventricle, positioned in intraventricular apex under fluoroscopic guidance. There was adequate pacing and sensing thresholds and no diaphragmatic stimulation with high output pacing. The 8-[place]gent[place] sheath was peeled away and lead was fixated to pectoralis muscle using 0 silk suture. A second 8-[place]gent[place] sheath was advanced through the retained guidewire without any resistance. Guidewire and dilator removed. The right atrial lead was then advanced into right atrium and positioned interatrial appendage under fluoroscopic guidance. There was adequate pacing and sensing thresholds and no diaphragmatic stimulation with high output pacing. The 8-[place]gent[place] sheath was peeled away and lead was fixated to pectoralis muscle using 0 silk suture. A pacemaker pocket was created using blunt dissection over the pectoralis muscle within the pectoralis fascia. Pocket was flushed with copious amounts of bacitracin saline wash and inspected for hemostasis. Pulse generator was then attached to leads making sure the pins were in appropriate position, passed set screw and set screws were all tightened. Pulse generator was then placed in antibiotic pouch followed then by being placed in the pocket, making sure that the leads were lying flat beneath the device. Incision was closed in 3-layer fashion with 2-0 Vicryl interrupted suture followed by 3-0 Vicryl interrupted suture, followed by 4-0 Monocryl running stitch and Dermabond was applied followed by Telfa and micropore dressing. EQUIPMENT: 1. Pulse generator is a Medtronic Alexandra XT DR ARELI Conner [id number], serial number [id number]. 2. Tyrx pouch reference [id number], lot number [id number]. 3. Right atrial lead Medtronic 5076-45 cm, serial number [id number]. 4. Right ventricular lead, Medtronic 5076-52 cm, serial number [id number]. INTRAOPERATIVE TESTIN. Right atrial lead: P waves 1.8 millivolts, impedance 710 ohms, threshold 0.8 volts at 0.4 milliseconds. 2. Right ventricular lead: R waves 28.6 millivolts, impedance 1158 ohms, threshold 0.8 volts at 0.4 milliseconds. FINAL MEASUREMENTS THROUGH THE DEVICE: 1. Right atrial lead: P waves 1.5 millivolts, impedance 570 ohms, threshold 0.5 volts at 0.4 milliseconds. 2. Right ventricular lead: R waves 8.9 millivolts, impedance 874 ohms, threshold 0.5 volts at 0.4 milliseconds. FINAL PARAMETERS: MVP-R 60/130, right atrial amplitude 3.5 volts, pulse width 0.4 milliseconds, sensitivity 0.3 millivolts. Right ventricular amplitude 3.5 volts, pulse width 0.4 milliseconds, sensitivity 1.2 millivolts. IMPRESSION: Successful dual chamber rate responsive permanent pacemaker under fluoroscopic guidance along with peripheral venogram secondary to intermittent complete heart block. PLAN: Monitor the patient overnight. He is not to lift right elbow over right shoulder for 1 month. He cannot lift more than 10 pounds with the right arm for 2 weeks. He is to keep the dressing on and dry until his wound check next week. I attest to the content of the Intraoperative Record and any orders documented therein. Any exception s are noted below.
== END 2020-06-12 10:56 | disposition home health service (06) | DRG 243 ==
LOC: ED 11:28 → EDINP 14:57 → SUATTDRO 14:57 → EDINP 15:43 → 2S 16:54

== ENCOUNTER 2020-10-29 16:40 | Inpatient (IN) ==
[~2020-10-29 16:40] MED LIST changes: -ASPCH81X PO; -ATOR-26 PO; -BACL20TA PO; -CHOL20009 PO; -CLOB-77 TOP; -CZR25 PO; -DICL50TA3 PO; -DMD20 PO; -DPRSL60 TOP; -FLNIN; -FLV1 PO; -INSU70IN2 SC; +INSULIN ASPART 100 UNITS/ML 3 ML PEN SC ONE; -ISOS30TA35 PO; -LFB/200 PO; -METF-384 PO; -METO50TA17 PO; -NITR0.4S UT; -OMEP20CA9 PO; -OXGN; -TRAM-10 PO; -TRMCR180 TOP; -VNTHFA/IN INH; -XPNINS125 NEB
[2020-10-29] MEDS ORDERED: ALBUT/IPRATROP 3MG/0.5MG NEB 3 ML VIAL NEB STA (17:15)
--- NOTE | 2020-10-29 17:16 | Emergency Department Note ---
History of Present Illness General Chief Complaint: Shortness of Breath/Dyspnea Stated Complaint: SOB, SENT BY GASTRO, ANEMIA Time Seen by Provider: 10/29/20 16:57 History of Present Illness Provider Complaint: shortness of breath Onset (ago): day(s) (1) Maximum Pain Intensity: 0 Relieved By: + rest Exacerbated By: + exertion Context: + other (Anemia) Known history of: COPD and congestive heart failure Associated symptoms: + chest pain and + wheezing; no fever, no sputum production, no polyuria, no hemoptysis, no syncope or no abdominal pain HPI Narrative: Patient also reports dark stools. He states he was sent here by his [facility] physician because his hemoglobin level was low. Home Medications Medication Instructions Recorded Confirmed Type atorvastatin 80 mg tablet 80 mg PO QPM 11/13/17 10/29/20 History fluticasone propionate 50 2 spray INTRANASAL DAILY 11/13/17 10/29/20 History mcg/actuation nasal spray,suspension (Flonase Allergy Relief) insulin degludec 200 unit/mL (3 120 unit SUBCUT QAM 11/13/17 10/29/20 History mL) subcutaneous pen (Tresiba FlexTouch U-200 insulin) nitroglycerin 0.4 mg sublingual 0.4 mg SUBLINGUAL UD PRN 11/13/17 10/29/20 History tablet (Nitrostat) etanercept 50 mg/mL (1 mL) 1 dose SUBCUT WK 04/10/18 10/29/20 History subcutaneous pen injector (Enbrel SureClick) furosemide 80 mg tablet (Lasix) 80 mg PO QAM 04/20/18 10/29/20 History omeprazole 20 mg tablet,delayed 20 mg PO BID #60 tab 10/14/19 10/29/20 Rx release allopurinol 300 mg tablet 300 mg PO DAILY 06/09/20 10/29/20 History aspirin 81 mg tablet,delayed 81 mg PO DAILY 06/09/20 10/29/20 History release (Aspirin Low Dose) folic acid 1 mg tablet 1 mg PO DAILY 06/09/20 10/29/20 History tramadol 50 mg tablet 50 mg PO Q6H PRN #30 tab 06/12/20 10/29/20 Rx insulin aspart U-100 100 unit/mL 0 - 60 unit SUBCUT AMPM 10/29/20 10/29/20 History (3 mL) subcutaneous pen (Novolog Flexpen U-100 Insulin aspart) liraglutide 0.6 mg/0.1 mL (18 mg/3 1.8 mg SUBCUT DAILY 10/29/20 10/29/20 History mL) subcutaneous pen injector (Victoza 3-Kei) Allergies Allergy/AdvReac Type Severity Reaction Status Date / Time methylprednisolone AdvReac Severe AMS Verified 10/29/20 18:09 hydromorphone [From Dilaudid] AdvReac Intermediate Nausea Verified 10/29/20 18:09 prednisone AdvReac Mild INCREASE Verified 10/29/20 18:09 BLOOD SUGAR Past Med/Surg History Medical History Anemia Chest pain CHF (congestive heart failure) Chronic obstructive pulmonary disease Diabetes Diabetes mellitus, type 2 Diverticular disease GERD (gastroesophageal reflux disease) History of colon polyps Hyperlipidemia Hypertension Obesity On home oxygen therapy 2L N/C prn SOB Osteoarthritis Prostate cancer radiation seeds Psoriasis Shortness of breath on exertion oxygen 2L n/c prn Sleep apnea cpap--no oxygen Stage 4 chronic kidney disease Surgical History History of cardiac cath had 4 total--last 2015 @ [facility] History of colonoscopy History of esophagogastroduodenoscopy (EGD) History of heart artery stent x6 stents total History of prostate biopsy malignant History of tooth extraction S/P CABG x 3 2008 @ [facility]---follows with Dr. Rolon Status post LASIK surgery of both eyes Family History Other No family history of adverse response to anesthesia Social History Smoking Status: Former smoker Tobacco Type: Cigarettes Second Hand Exposure: No; Hx Alcohol Use: No Hx Substance Use: No Preferred Language: Cuban Communication Ability: Effective Tax Compliance Agent Required: No Beliefs That Will Affect Care: None marital status: Current Living Situation: Spouse Feels Safe at Home: Yes Safety Concerns: Feels Safe At This Time Assistive Devices: CPAP, Denture - Upper, Denture - Lower and Oxygen - at Night Review of Systems A total of 10 systems reviewed and were otherwise negative Physical Exam Vital Signs: Vital Signs - 24 hr 10/29/20 16:51 10/29/20 16:54 10/29/20 17:06 Temperature 36.5 C Temperature Source Oral Pulse Rate 81 Pulse Rate [Apical ] Pulse Rate from Sp O2 Sensor Pulse Rhythm Regular Pulse Strength Normal Respiratory Rate 20 Respiratory Effort / Characteristics Non-Labored Sponta neous Non-Labored Respiratory Depth Normal Normal Respiratory Patter n Regular Regular Blood Pressure 136/66 Blood Pressure [Ri ght Arm] Blood Pressure Mayra n 89 Blood Pressure Mayra n [Right Arm] Blood Pressure Pos ition [Right Arm] Pulse Oximetry 98 Oxygen Delivery Me thod Room Air Room Air Room Air Sepsis Recent Feve r Within 48 Hours No Sepsis New/Unexpla ined Change in Men peter Status N/A Sepsis Action Take n by Nursing No Action Required 10/29/20 17:07 10/29/20 17:33 10/29/20 18:30 Temperature Temperature Source Pulse Rate Pulse Rate [Apical ] 80 81 80 Pulse Rate from Sp O2 Sensor Pulse Rhythm Pulse Strength Respiratory Rate 15 18 20 Respiratory Effort / Characteristics Non-Labored Sponta neous Respiratory Depth Respiratory Patter n Blood Pressure Blood Pressure [Ri ght Arm] 147/60 H 128/56 L Blood Pressure Mayra n Blood Pressure Mayra n [Right Arm] 89 80 Blood Pressure Pos ition [Right Arm] Sitting Pulse Oximetry 99 98 97 Oxygen Delivery Me thod Room Air Room Air Room Air Sepsis Recent Feve r Within 48 Hours Sepsis New/Unexpla ined Change in Men peter Status Sepsis Action Take n by Nursing 10/29/20 19:00 10/29/20 19:30 10/29/20 20:00 Temperature Temperature Source Pulse Rate 74 85 78 Pulse Rate [Apical ] Pulse Rate from Sp O2 Sensor 75 Pulse Rhythm Pulse Strength Respiratory Rate 13 20 17 Respiratory Effort / Characteristics Respiratory Depth Respiratory Patter n Blood Pressure 138/72 155/62 H 145/98 H Blood Pressure [Ri ght Arm] Blood Pressure Mayra n 94 93 113 Blood Pressure Mayra n [Right Arm] Blood Pressure Pos ition [Right Arm] Pulse Oximetry 98 99 Oxygen Delivery Me thod Room Air Sepsis Recent Feve r Within 48 Hours Sepsis New/Unexpla ined Change in Men peter Status Sepsis Action Take n by Nursing 10/29/20 20:30 Temperature Temperature Source Pulse Rate 73 Pulse Rate [Apical ] Pulse Rate from Sp O2 Sensor 69 Pulse Rhythm Pulse Strength Respiratory Rate 15 Respiratory Effort / Characteristics Respiratory Depth Respiratory Patter n Blood Pressure 153/74 H Blood Pressure [Ri ght Arm] Blood Pressure Mayra n 100 Blood Pressure Mayra n [Right Arm] Blood Pressure Pos ition [Right Arm] Pulse Oximetry 96 Oxygen Delivery Me thod Room Air Sepsis Recent Feve r Within 48 Hours Sepsis New/Unexpla ined Change in Men peter Status Sepsis Action Take n by Nursing Physical Exam: Physical Exam GENERAL: Patient became winded and started having labored breathing when walking from a wheelchair to the hospital bed. HENT: Exam performed. - Head: Normocephalic and atraumatic. - Right Ear: External ear normal. No mastoid tenderness. - Left Ear: External ear normal. No mastoid tenderness. - Mouth/Throat: The oropharynx is clear and moist. No trismus in the jaw. No dental abscesses or uvula swelling. No oropharyngeal exudate or tonsillar ab scesses. EYES: Conjunctivae and EOM are normal. Pupils are equal, round, and reactive to light. Right eye exhibits no discharge. Left eye exhibits no discharge. No scleral icterus. NECK: Normal range of motion. Neck supple. No JVD present. No spinous process tenderness present. No carotid bruit present. No rigidity. No tracheal deviation and normal range of motion present. No Brudzinski's sign and no Kernig's sign noted. CV: Normal rate, regular rhythm, normal heart sounds and intact distal pulses. There is no peripheral edema. Palpable radial pulses bue. PULM/CHEST: Labored breathing. Wheezes bilaterally. - Chest Wall: He exhibits no tenderness. ABD: The abdomen is soft obese. Bowel sounds are normal. He has no distension. No mass is present. There is no tenderness. There is no rebound, no guarding, no Gutierrez's sign and no tenderness at McBurney's point. Rovsig negative. Rectal: Melanotic stools Hemoccult positive. MUSC/SKEL: Normal range of motion. There is no peripheral edema, tenderness or deformity. LYMPH: No cervical adenopathy. NEURO: He is alert and oriented to person, place, and time. He has normal strength. No cranial nerve deficit or sensory deficit. Coordination and gait normal. GCS eye subscore is 4. GCS verbal subscore is 5. GCS motor subscore is 6. Cerebellar tests wnl. SKIN: Skin is warm and dry. He is not diaphoretic. PSYCH: He has a normal mood and affect. Behavior is normal. Judgment and thought content normal. Course Course 1656: The patient was evaluated in room B5. A complete history and physical exam was performed Cardiac monitoring: An order was placed for continuous cardiac monitoring. The monitor shows a rate of 70 with paced rhythm DuoNeb treatment ordered for the patient given his wheezing and difficulty breathing. 0: Ronna assistant operations manager was able to obtain results from [facility]. Patient had blood work done today which showed a hemoglobin of 8.3 down from 10 on October 22, 1 week ago. Patient is on IV infusion of iron. 0:Vital signs stable. Patient's hemoglobin 8.2, greater than 7 no need for acute transfusion. Patient is still having difficulty breathing with exertion. Patient will be admitted for dyspnea on exertion. Discussed case with [facility] hospitalist Dr. Peterson who will evaluate the patient Administered Medications Atorvastatin Calcium (Atorvastatin 40 Mg Tab) 80 mg PO QPM [place] Stop: 11/28/20 22:59 Last Admin: 10/29/20 23:41 Dose: 80 mg Documented by: [id number] Insulin Aspart (Insulin Aspart 100 Units/Ml 3 Ml Pen) 0 units SC [facility]; Protocol Stop: 11/28/20 23:14 Last Admin: 10/29/20 23:42 Dose: 7 units Documented by: [id number] Cosigned by: [id number] Discontinued Medications Albuterol (Albut/Ipratrop 3mg/0.5mg Neb 3 Ml Vial) 3 ml NEB NOW STA Stop: 10/29/20 17:16 Last Admin: 10/29/20 17:32 Dose: 3 ml Documented by: [id number] Pantoprazole Sodium (Protonix Bolus/Drip) 0 mls @ 1 mls/hr IV ONE STA Stop: 10/29/20 22:32 Last Admin: 10/30/20 00:02 Dose: Not Given Documented by: [id number] Pantoprazole Sodium 80 mg/ (Dextrose) 120 mls @ 400 mls/hr IV NOW STA Stop: 10/29/20 23:09 Last Admin: 10/29/20 23:40 Dose: 400 mls/hr Documented by: [id number] Prednisone (Prednisone 50 Mg Tab) 50 mg PO NOW STA Stop: 10/29/20 19:14 Last Admin: 10/29/20 19:34 Dose: 50 mg Documented by: [id number] Medical Decision Making Laboratory Data Result diagrams: 10/29/20 17:15 10/29/20 17:17 Lab Results 10/29/20 10/29/20 10/29/20 Range/Units 17:15 17:15 17:17 WBC 8.16 (4.8-10.8) K/uL RBC 3.01 L (4.7-6.1) M/uL Hgb 8.2 L (14.0-18.0) g/dL Hct 27.8 L (42-52) % MCV 92.4 (80-100) fL MCH 27.2 (25-34) pg MCHC 29.5 L (32-36) g/dL RDW Std Deviation 62.8 H (36.4-46.3) fL RDW Coeff of Joey 18.3 H (11.5-14.5) % Plt Count 294 (130-400) K/uL MPV 9.2 (7.4-10.4) fL Immature Gran % (Auto) 0.2 % Neut % (Auto) 81.2 % Lymph % (Auto) 13.1 % [place] % (Auto) 2.7 % Eos % (Auto) 2.6 % Baso % (Auto) 0.2 % Neut # (Auto) 6.62 H (1.4-6.5) K/uL Lymph # (Auto) 1.07 L (1.2-3.4) K/uL [place] # (Auto) 0.22 (0.11-0.59) K/uL Eos # (Auto) 0.21 (0-0.5) K/uL Baso # (Auto) 0.02 (0-0.2) K/uL Immature Gran # (Auto) 0.02 (0.00-0.02) K/uL PT 10.2 (9.0-12.0) Seconds INR 1.0 (0.9-1.1) APTT 30.8 (21.0-31.0) Seconds PTT Ratio 1.2 Sodium 138 (136-145) mmol/L Potassium 3.9 (3.5-5.1) mmol/L Chloride 104 (98-107) mmol/L Carbon Dioxide 25 (21-32) mmol/L Anion Gap 9.0 (3-11) BUN 29 H (7-18) mg/dl Creatinine 1.76 H (0.6-1.4) mg/dl Est Cr Clr Drug Dosing 39.9 ml/min Est GFR ( Amer) 42.0 ml/min Est GFR (Non-Af Amer) 36.2 ml/min BUN/Creatinine Ratio 16.6 (10-20) Glucose 251 H (70-99) mg/dl Calcium 7.7 L (8.5-10.1) mg/dl Magnesium 2.2 (1.8-2.4) mg/dl Troponin I < 0.015 (0-0.045) ng/ml NT-Pro-B Natriuret Pep 355 (0-1800) pg/ml Lipase 272 (73-393) U/L Specimen Hemolysis COVID-19 Eval Order SARS-CoV-2 (PCR) (Negative) Blood Type Antibody Screen Crossmatch 10/29/20 10/29/20 10/29/20 Range/Units 17:17 17:17 18:04 WBC (4.8-10.8) K/uL RBC (4.7-6.1) M/uL Hgb (14.0-18.0) g/dL Hct (42-52) % MCV (80-100) fL MCH (25-34) pg MCHC (32-36) g/dL RDW Std Deviation (36.4-46.3) fL RDW Coeff of Joey (11.5-14.5) % Plt Count (130-400) K/uL MPV (7.4-10.4) fL Immature Gran % (Auto) % Neut % (Auto) % Lymph % (Auto) % [place] % (Auto) % Eos % (Auto) % Baso % (Auto) % Neut # (Auto) (1.4-6.5) K/uL Lymph # (Auto) (1.2-3.4) K/uL [place] # (Auto) (0.11-0.59) K/uL Eos # (Auto) (0-0.5) K/uL Baso # (Auto) (0-0.2) K/uL Immature Gran # (Auto) (0.00-0.02) K/uL PT (9.0-12.0) Seconds INR (0.9-1.1) APTT (21.0-31.0) Seconds PTT Ratio Sodium (136-145) mmol/L Potassium (3.5-5.1) mmol/L Chloride (98-107) mmol/L Carbon Dioxide (21-32) mmol/L Anion Gap (3-11) BUN (7-18) mg/dl Creatinine (0.6-1.4) mg/dl Est Cr Clr Drug Dosing ml/min Est GFR ( Amer) ml/min Est GFR (Non-Af Amer) ml/min BUN/Creatinine Ratio (10-20) Glucose (70-99) mg/dl Calcium (8.5-10.1) mg/dl Magnesium (1.8-2.4) mg/dl Troponin I (0-0.045) ng/ml NT-Pro-B Natriuret Pep (0-1800) pg/ml Lipase (73-393) U/L Specimen Hemolysis COVID-19 Eval Order Covid19 at [facility] SARS-CoV-2 (PCR) NEGATIVE (Negative) Blood Type A Positive Antibody Screen NEGATIVE Crossmatch See Detail Imaging Data Radiologist's Impression: Chest X-Ray 10/29/20 17:06 XR chest 1V portable HISTORY: Atypical Chest Pain COMPARISON: Chest 06/12/2020. FINDINGS: There is mild chronic interstitial thickening. No new focal lung consolidations. The heart remains mildly enlarged. There are poststernotomy changes and a right-sided dual-chamber pacemaker. The left subclavian Port-A-Cath with the tip located within the azygos vein. This remains unchanged. No pneumothorax. No pleural effusions. IMPRESSION: 1. No significant change compared to the prior study. No acute process within the chest. 2. The tip of the left subclavian Port-A-Cath terminates in the azygos vein. This remains unchanged. ACT 112: Negative or not required by law. Electronically signed by: Josue Mahoney M.D. 10/29/2020 5:33 PM ECG Data Interpretation: Paced rhythm with a rate of 72. TX 210 QRS 156 QTC 527. PVCs present. [facility] Narrative 1657: The patient was evaluated in room B5. A complete history and physical exam was performed Cardiac monitoring: An order was placed for continuous cardiac monitoring. The monitor shows a rate of 70 with paced rhythm DuoNeb treatment ordered for the patient given his wheezing and difficulty breathing. 0: Ronna assistant operations manager was able to obtain results from [facility]. Patient had blood work done today which showed a hemoglobin of 8.3 down from 10 on October 22, 1 week ago. Patient is on IV infusion of iron. 1919:Vital signs stable. Patient's hemoglobin 8.2, greater than 7 no need for acute transfusion. Patient is still having difficulty breathing with exertion. Patient will be admitted for dyspnea on exertion. Discussed case with [facility] hospitalist Dr. Peterson who will evaluate the patient Impression & Plan CAPONE (dyspnea on exertion) Discharge Plan Visit Data Chief Complaint: Shortness of Breath/Dyspnea Stated Complaint: SOB, SENT BY GASTRO, ANEMIA ED Provider: Alcon Ascencio Discharge Problem: CAPONE (dyspnea on exertion) Patient Disposition: Admitted As Inpatient Discharge Instructions Interventions: ED Discharge Assessment Last Done: 10/29/20 21:59
--- NOTE | 2020-10-29 17:35 | XRay Report ---
XR chest 1V portable HISTORY: Atypical Chest Pain COMPARISON: Chest 06/12/2020. FINDINGS: There is mild chronic interstitial thickening. No new focal lung consolidations. The heart remains mildly enlarged. There are poststernotomy changes and a right-sided dual-chamber pacemaker. T he left subclavian Port-A-Cath with the tip located within the azygos vein. This remains unchanged. N o pneumothorax. No pleural effusions. IMPRESSION: 1. No significant change compared to the prior study. No acute process within the chest. 2. The tip of the left subclavian Port-A-Cath terminates in the azygos vein. This remains unchanged. ACT 112: Negative or not required by law. Electronically signed by: Josue Mahoney M.D. 10/29/2020 5:33 PM
[2020-10-29 17:36] LABS: Basophils # (auto) 0.02 K/uL (0-0.2); Basophils % (auto) 0.2 %; Eosinophils # (auto) 0.21 K/uL (0-0.5); Eosinophils % (auto) 2.6 %; Hematocrit (blood only) 27.8 % (42-52); Hemoglobin 8.2 g/dL (14.0-18.0); Immature Granulocytes # (auto) 0.02 K/uL (0.00-0.02); Immature Granulocytes % (auto) 0.2 %; Lymphocytes # (auto) 1.07 K/uL (1.2-3.4); Lymphocytes % (auto) 13.1 %; Mean Corpuscular Hemoglobin 27.2 pg (25-34); Mean Corpuscular Hgb Conc 29.5 g/dL (32-36); Mean Corpuscular Volume 92.4 fL (80-100); Mean Platelet Volume 9.2 fL (7.4-10.4); Monocytes # (auto) 0.22 K/uL (0.11-0.59); Monocytes % (auto) 2.7 %; Neutrophils # (auto) 6.62 K/uL (1.4-6.5); Neutrophils % (auto) 81.2 %; Platelet Count 294 K/uL (130-400); RDW Coefficient of Variation 18.3 % (11.5-14.5); RDW Standard Deviation 62.8 fL (36.4-46.3); Red Blood Count 3.01 M/uL (4.7-6.1); White Blood Count 8.16 K/uL (4.8-10.8)
[2020-10-29 17:53] LABS: Partial Thromboplastin Ratio 1.2; Partial Thromboplastin Time 30.8 Seconds (21.0-31.0); Prothrombin Time 10.2 Seconds (9.0-12.0)
[2020-10-29 18:19] LABS: BUN Creatinine Ratio 16.6 (10-20); Blood Urea Nitrogen 29 mg/dl (7-18); Calcium 7.7 mg/dl (8.5-10.1); Carbon Dioxide 25 mmol/L (21-32); Chloride 104 mmol/L (98-107); Creatinine Clr Calc Pharmacy 39.9 ml/min; Est GFR (Non-African American) 36.2 ml/min; Glucose 251 mg/dl (70-99); Lipase 272 U/L (73-393); Magnesium 2.2 mg/dl (1.8-2.4); NT Pro B Type Natriuretic Pept 355 pg/ml (0-1800); Potassium 3.9 mmol/L (3.5-5.1); Sodium 138 mmol/L (136-145); Troponin I < 0.015 ng/ml (0-0.045)
[2020-10-29] MEDS ORDERED: predniSONE 50 MG TAB PO STA (19:13)
--- NOTE | 2020-10-29 22:02 | History and Physical Report ---
DATE OF ADMISSION: 10/29/2020 CHIEF COMPLAINT: Shortness of breath. HISTORY OF PRESENT ILLNESS: This is a 80-year-old male with past medical history significant for type 2 diabetes, chronic respiratory failure, on 2 liters of oxygen, sleep apnea, CPAP at bedtime with oxygen, hyperlipidemia, gout, history of COPD, pulmonary hypertension, chronic diastolic CHF, CAD status post stent, status post CABG, Henning's esophagus with dysplasia, chronic kidney disease stage IV, BPH, generalized osteoarthritis, chronic anemia due to chronic blood loss, iron deficiency, psoriasis, psoriatic arthropathy who presents with shortness of breath, and anemia. The patient lives with his family, walks without any support, but the patient says lately he is getting short of breath on walking short distances and is getting palpitations. His oxygen saturations remaining okay. On and off, he is getting some chest pain on the left side of chest. He says whenever his hemoglobin goes down, he is having chest pains. He is having iron infusions now and also he is getting frequent blood transfusions, but his hemoglobin level is not coming up much. Today in the ER, his Hemoccult was positive. He had multiple EGDs and colonoscopies, and also he says he is scheduled for another colonoscopy in November. Currently sitting in chair comfortably. Currently has no chest pain. Was feeling dizzy earlier. He has chronic neck pain. No headache. He has some chronic eye problems, chronic runny nose. Has some sore throat. Appetite is okay. Sometimes gets difficulty swallowing for both solids and liquids. No fevers, no nausea, no abdominal discomfort. Normal bladder movements. No hematuria. Has some swelling in the legs. ALLERGIES: METHYLPREDNISOLONE, DILAUDID. PAST MEDICAL HISTORY: As mentioned above. PAST SURGICAL HISTORY: CABG, cardiac stent placement, pacemaker placement, colonoscopy with biopsy, combined right and left heart catheterizations, EGD with biopsy, needle punch biopsy of the prostate, small bowel endoscopy, video capsule endoscopy. MEDICATIONS: The patient is on allopurinol 300 mg p.o. daily, aspirin 81 mg p.o. daily, atorvastatin 80 mg p.o. daily, Enbrel 1 dose subcutaneous weekly, Flonase 2 sprays intranasally daily, folic acid 1 mg p.o. daily, Lasix 80 mg p.o. a.m., NovoLog FlexPen subcutaneously, Victoza 1.8 mg subcutaneously daily, Nitrostat 0.4 mg sublingually p.r.n., omeprazole 20 mg p.o. b.i.d., tramadol 50 mg p.o. q.6 hours p.r.n., Tresiba 120 units subcutaneously a.m. FAMILY HISTORY: Significant for son has arthritis, blood disorder, diabetes. Father has lung disorder. Mother has mental disorder. Brother has asthma. Maternal grandfather had stomach cancer. SOCIAL HISTORY: . Quit smoking in 1997, smoked 2 packs a day for 20 years. No alcohol use. No drug use. REVIEW OF SYSTEMS: As per HPI. Rest of the review of systems is negative. PHYSICAL EXAMINATION: GENERAL: The patient is morbidly obese, not in acute distress. VITAL SIGNS: Temperature 36.5, pulse 78, respiratory rate 17, blood pressure 148/98, oxygen 99% on room air. HEENT: Pupils equal, round and reactive to light. Oral mucosa moist. NECK: No JVD, no neck masses. CARDIOVASCULAR: S1 and S2 heard, regular rate and rhythm. No murmur, no gallop. RESPIRATORY SYSTEM: Normal AP diameter. No accessory muscle use. No wheezing, no crackles. ABDOMEN: Soft, bowel sounds present, nontender, no distention. CENTRAL NERVOUS SYSTEM: Cranial nerves II-XII grossly intact, nonfocal. EXTREMITIES: Mild pedal edema present, no erythema seen. LABORATORY DATA: WBC 8.1, hemoglobin 8.2, hematocrit 27.8, platelets 294. PT 10.2, INR 1, APTT 28.8. Sodium 138, potassium 3.9, chloride 104, bicarb 25, BUN 29, creatinine 1.76, serum glucose 251, calcium 7.7, magnesium 2.2. Troponin less than 0.015. BNP 355. Lipase 272. SARS-CoV-2 PCR negative. IMAGING: Chest x-ray: No significant change compared to prior study, no acute process within the chest. EKG: Atrial-sensed ventricular-paced rhythm with prolonged AV conduction and PVCs, rate of 88. ASSESSMENT AND PLAN: This is a 80-year-old male who presents with shortness of breath. 1. Shortness of breath, questionable symptomatic anemia, history of diastolic congestive heart failure, history of chronic obstructive pulmonary disease. No obvious wheezing on exam. We will transfuse 1 unit of PRBC. His Hemoccult was positive. Closely monitor in the med-telemetry. 2. Symptomatic anemia, acute on chronic blood loss anemia, iron-deficiency anemia, had multiple EGDs and colonoscopies. Currently on IV iron infusions. His Hemoccult was positive in the Emergency Room. We will place him on Protonix drip, transfuse 1 unit of PRBC. N.p.o. after midnight. Consult Gastrointestinal in the a.m. 3. Questionable chest pain. He gets on and off chest pain; he says when his blood count drops down, he gets palpitation and chest pain.Currently asymptomatic. Initial workup is negative, we will consult cardiology in the a.m. for further recommendation. 4. History of chronic diastolic congestive heart failure. Continue his home diuretics. Monitor for any volume overload. 5. History of obstructive sleep apnea. Continue his CPAP at bedtime. 6. History of high-grade atrioventricular conduction block, status post pacemaker. 7. Morbid obesity. Needs counseling. 8. Henning's esophagus with dysplasia, on proton pump inhibitor. 9. Chronic kidney disease stage IV, baseline creatinine around 2, currently Cr 1.76, we will follow the laboratories. 10. History of coronary artery disease, status post coronary artery bypass grafting, status post stents. Continue on aspirin, and statin. 11. History of diabetes. He is on high-dose of Tresiba insulin, we will hold. Currently n.p.o. We will place him on insulin sliding scale and Lantus and consult with glycemic pharmacy consult. 12. Hypertension. Currently on only diuretics. We will monitor the blood pressure. 13. History of gout, on allopurinol. 14. History of psoriasis and psoriatic arthropathy, on Enbrel weekly. 15. Occasional dysphagia. Await GI inputs 16. Deep venous thrombosis prophylaxis: We will place him on sequential compression devices. DISPOSITION: Closely monitor in the med tele. PT/OT prior to discharge. Social service to help with discharge planning. Level 1, full code. Job ID: [id number] [facility]
[2020-10-29] MEDS ORDERED: LEVALBUTEROL HCL 1.25 MG/3 ML NEB NEB PRN (22:31)
[2020-10-29] MEDS ORDERED: PHARMACY GLYCEMIC MGMT CONSULT PRN (22:31)
[2020-10-29] MEDS ORDERED: ACETAMINOPHEN 325 MG TAB PO PRN (22:31)
[2020-10-29] MEDS ORDERED: PANTOPRAZOLE BOLUS/DRIP 1 EA IV STA (22:31)
[2020-10-29] MEDS ORDERED: SODIUM CHLORIDE 0.9% 250 ML IV PRN (22:31)
[2020-10-29] MEDS ORDERED: ONDANSETRON INJ 2 MG/ML 2 ML VIAL IV PRN (22:31)
[2020-10-29] MEDS ORDERED: NITROGLYCERIN SL 0.4 MG/TAB TAB SL PRN ×2 (22:31)
[2020-10-29] MEDS ORDERED: traMADol HCL 50 MG TABLET PO PRN (22:31)
[2020-10-29] MEDS ORDERED: POLYETHYLENE (MIRALAX) 17 GM PACK PO PRN (22:31)
[2020-10-29] MEDS ORDERED: PANTOprazole 80 MG in DEXTROSE 5% 100 ML IV STA (22:52)
[2020-10-29] MEDS ORDERED: GLUCOSE 40% GEL 15 GM TUBE PO PRN (23:15)
[2020-10-29] MEDS ORDERED: GLUCOSE 10 TABS/TUBE PO PRN (23:15)
[2020-10-29] MEDS ORDERED: GLUCAGON FOR INJ 1 MG VIAL IM PRN (23:15)
[2020-10-29] MEDS ORDERED: CARBOHYDRATES FOR HYPOGLYCEMIA PO PRN (23:15)
[2020-10-29] MEDS ORDERED: DEXTROSE 50% 50 ML SYRINGE IV PRN (23:15)
[2020-10-29] MEDS: ATORVASTATIN 40 MG TAB PO SCH (23:41)
[2020-10-29] MEDS: INSULIN ASPART 100 UNITS/ML 3 ML PEN SC SCH (23:42)
[2020-10-30] MEDS: PANTOprazole 40 MG in DEXTROSE 5% 100 ML IV SCH ×5 (00:37→22:39)
[2020-10-30] MEDS ORDERED: FUROSEMIDE 40 MG in SYRINGE 0 ML IV ONE (01:30)
[2020-10-30] MEDS ORDERED: FUROSEMIDE 40 MG/4 ML VIAL IV ONE ×2 (01:30→23:50)
[2020-10-30] MEDS ORDERED: INSULIN ASPART 100 UNITS/ML 3 ML PEN SC ONE (03:00)
[2020-10-30 05:31] LABS: Hematocrit (blood only) 31.4 % (42-52); Hemoglobin 9.4 g/dL (14.0-18.0)
[2020-10-30 05:32] LABS: Basophils # (auto) 0.01 K/uL (0-0.2); Basophils % (auto) 0.1 %; Hematocrit (blood only) 31.5 % (42-52); Hemoglobin 9.3 g/dL (14.0-18.0); Immature Granulocytes # (auto) 0.03 K/uL (0.00-0.02); Immature Granulocytes % (auto) 0.3 %; Lymphocytes # (auto) 0.72 K/uL (1.2-3.4); Mean Corpuscular Hemoglobin 26.8 pg (25-34); Mean Corpuscular Hgb Conc 29.5 g/dL (32-36); Mean Corpuscular Volume 90.8 fL (80-100); Mean Platelet Volume 9.1 fL (7.4-10.4); Neutrophils # (auto) 9.48 K/uL (1.4-6.5); Neutrophils % (auto) 92.6 %; Platelet Count 296 K/uL (130-400); RDW Coefficient of Variation 17.4 % (11.5-14.5); RDW Standard Deviation 58.1 fL (36.4-46.3); Red Blood Count 3.47 M/uL (4.7-6.1); White Blood Count 10.24 K/uL (4.8-10.8)
[2020-10-30 06:16] LABS: BUN Creatinine Ratio 16.6 (10-20); Calcium 7.8 mg/dl (8.5-10.1); Creatinine Clr Calc Pharmacy 38.8 ml/min; Est GFR (African American) 40.6 ml/min; Magnesium 2.2 mg/dl (1.8-2.4); Potassium 4.5 mmol/L (3.5-5.1)
[2020-10-30 07:57] LABS: Estimated Average Glucose 103 mg/dl; Hemoglobin A1C 5.2 % (4.5-5.6)
[2020-10-30] MEDS: FUROSEMIDE 80 MG TAB PO SCH (07:59)
[2020-10-30] MEDS: allopurinoL 300 MG TAB PO SCH (07:59)
[2020-10-30] MEDS: FOLIC ACID 1 MG TAB PO SCH (07:59)
[2020-10-30] MEDS: FLUTICASONE PROPIONATE NA SPR 16 GM BTL SCH (08:00)
[2020-10-30] MEDS: ASPIRIN 81 MG ECTAB PO SCH (08:00)
[2020-10-30] MEDS ORDERED: INSULIN GLARGINE 100 UNIT/ML VIAL SC ONE (08:00)
--- NOTE | 2020-10-30 08:04 | Gastrointestinal Consultation ---
Date of Consultation October 30, 2020 Assessment & Plan (1) Symptomatic anemia: This is a 80-year-old male with chronic iron deficiency anemia of unclear etiology, on iron treatment, and s/p multiple endoscopies/VCE without obvious GI source, admitted with worsening shortness of breath and weakness, drop in hemoglobin. Patient states he has chronic black stools and this is not new for him. With his drop in HGB, GI consulted to eval anemia and hemoccult + stool. Patient had planned on outpatient scopes however, with him being here in the hospital, we will look to arrange these for him as an inpatient - Will plan on EGD today to eval for potential upper GI source of anemia - We will also plan on colonoscopy tomorrow to evaluate for lower GI source of anemia - Keep n.p.o. - Agree with IV PPI - Monitor document GI - Trend H&H, transfuse PRN Thank you for allowing us to participate in the care of this patient. Please call with any acute changes, questions or concerns. Please see addendum below with additional recommendation from my supervising physician. Supervising Physician Co-Signing Physician Notes I performed a history and physical examination of the patient today, including specifically on physical exam - soft abdomen. I have discussed the patient's management with the advanced practitioner. Please refer to the nurse practitioner's note for the documented findings and plan of care. EGD today and colonoscopy tomorrow. History of Present Illness Reason for Consultation: anemia. hemeoccult positive Requesting Physician: Dr. Peterson Attending Physician: Jeff Mason MD History of Present Illness This is 80-year-old male with history of COPD, CKD, CAD, T2DM, HFpEF, Henning's esophagus, with chronic iron deficiency anemia being followed by heme-onc for t his, getting IV Venofer weekly, patient also tells me he takes oral iron and has chronic black stools. Lately has been more weak and short of breath, outpatient scopes were planned however due to patient worsening, was sent to the ED yesterday. On arrival, Hgb 8 down from baseline of 1011, BUN at baseline. He was transfused 1 unit of blood, today Hgb 9.3, crit 31.5. Patient has had a long history of anemia from unclear etiology, has had multiple bidirectional endoscopies and VCE without obvious GI source. Previous testing for celiac was negative. Currently states he does not feel well, in general feels weak. States his stools are always black, typically solid, and even occasionally has constipation. No hematochezia at home, though stool is Hemoccult positive in the ER. Appetite is unchanged, denies abdominal pain, heartburn, nausea vomiting, hematemesis. He is a former smoker no current alcohol use. Allergies Allergy/AdvReac Type Severity Reaction Status Date / Time methylprednisolone AdvReac Severe AMS Verified 10/29/20 18:09 hydromorphone [From Dilaudid] AdvReac Intermediate Nausea Verified 10/29/20 18:09 prednisone AdvReac Mild INCREASE Verified 10/29/20 18:09 BLOOD SUGAR Home Medications Medication Instructions Recorded Confirmed Type atorvastatin 80 mg tablet 80 mg PO QPM 11/13/17 10/29/20 History fluticasone propionate 50 2 spray INTRANASAL DAILY 11/13/17 10/29/20 History mcg/actuation nasal spray,suspension (Flonase Allergy Relief) insulin degludec 200 unit/mL (3 120 unit SUBCUT QAM 11/13/17 10/29/20 History mL) subcutaneous pen (Tresiba FlexTouch U-200 insulin) nitroglycerin 0.4 mg sublingual 0.4 mg SUBLINGUAL UD PRN 11/13/17 10/29/20 History tablet (Nitrostat) etanercept 50 mg/mL (1 mL) 1 dose SUBCUT WK 04/10/18 10/29/20 History subcutaneous pen injector (Enbrel SureClick) furosemide 80 mg tablet (Lasix) 80 mg PO QAM 04/20/18 10/29/20 History omeprazole 20 mg tablet,delayed 20 mg PO BID #60 tab 10/14/19 10/29/20 Rx release allopurinol 300 mg tablet 300 mg PO DAILY 06/09/20 10/29/20 History aspirin 81 mg tablet,delayed 81 mg PO DAILY 06/09/20 10/29/20 History release (Aspirin Low Dose) folic acid 1 mg tablet 1 mg PO DAILY 06/09/20 10/29/20 History tramadol 50 mg tablet 50 mg PO Q6H PRN #30 tab 06/12/20 10/29/20 Rx insulin aspart U-100 100 unit/mL 0 - 60 unit SUBCUT AMPM 10/29/20 10/29/20 History (3 mL) subcutaneous pen (Novolog Flexpen U-100 Insulin aspart) liraglutide 0.6 mg/0.1 mL (18 mg/3 1.8 mg SUBCUT DAILY 10/29/20 10/29/20 History mL) subcutaneous pen injector (Victoza 3-Kei) Patient History Medical History Anemia Chest pain CHF (congestive heart failure) Chronic obstructive pulmonary disease Diabetes Diabetes mellitus, type 2 Diverticular disease GERD (gastroesophageal reflux disease) History of colon polyps Hyperlipidemia Hypertension Obesity On home oxygen therapy 2L N/C prn SOB Osteoarthritis Prostate cancer radiation seeds Psoriasis Shortness of breath on exertion oxygen 2L n/c prn Sleep apnea cpap--no oxygen Stage 4 chronic kidney disease Surgical History History of cardiac cath had 4 total--last [address] [facility] History of colonoscopy History of esophagogastroduodenoscopy (EGD) History of heart artery stent x6 stents total History of prostate biopsy malignant History of tooth extraction S/P CABG x 3 2008 @ [facility]---follows with Dr. 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: No Beliefs That Will Affect Care: None marital status: Current Living Situation: Spouse Feels Safe at Home: Yes Safety Concerns: Feels Safe At This Time Assistive Devices: Glasses Review of Systems Review of Systems: A complete review of systems is performed and is negative except as noted in HPI Physical Exam Constitutional: WD/WN, vitals as above Eyes: Sclera anicteric Neck: trachea midline, no thyromegaly Respiratory: normal respiratory effort, lungs clear to auscultation Cardiovascular: Rate/Rhythm: regular rate and regular rhythm Extremities: + edema (1+ bilateral pretibial) Gastrointestinal (Abdomen): normal bowel sounds, soft, nontender, no hepatosplenomegaly Skin: no rashes, warm and dry Psychiatric: A+Ox3, euthymic affect Results & Data ([facility]) Vital Signs (Past 12 Hours) Vital Signs Temp Pulse Pulse Resp BP BP BP 10/30/20 07:37 70 10/30/20 07:00 36.6 C 72 20 155/68 H 10/30/20 03:58 36.6 C 69 18 142/71 H 10/30/20 02:09 36.6 C 94 H 18 143/84 H 10/30/20 00:57 36.6 C 67 18 129/76 10/30/20 00:55 36.6 C 67 18 129/76 10/30/20 00:29 36.6 C 72 16 135/69 10/30/20 00:14 36.6 C 69 16 135/66 10/29/20 23:56 36.6 C 72 16 122/53 L 10/29/20 23:42 36.4 C L 74 18 140/66 10/29/20 21:30 73 19 140/79 10/29/20 21:00 72 13 134/75 10/29/20 20:30 73 15 153/74 H Pulse Ox 10/30/20 07:37 10/30/20 07:00 95 10/30/20 03:58 95 10/30/20 02:09 94 10/30/20 00:57 94 10/30/20 00:55 94 10/30/20 00:29 95 10/30/20 00:14 95 10/29/20 23:56 95 10/29/20 23:42 98 10/29/20 21:30 10/29/20 21:00 10/29/20 20:30 96 Laboratory Results 10/30/20 10/30/20 10/30/20 Range/Units 08:06 05:17 05:17 WBC (4.8-10.8) K/uL RBC (4.7-6.1) M/uL Hgb (14.0-18.0) g/dL Hct (42-52) % MCV (80-100) fL MCH (25-34) pg MCHC (32-36) g/dL RDW Std Deviation (36.4-46.3) fL RDW Coeff of Joey (11.5-14.5) % Plt Count (130-400) K/uL MPV (7.4-10.4) fL Immature Gran % (Auto) % Neut % (Auto) % Lymph % (Auto) % [place] % (Auto) % Eos % (Auto) % Baso % (Auto) % Neut # (Auto) (1.4-6.5) K/uL Lymph # (Auto) (1.2-3.4) K/uL [place] # (Auto) (0.11-0.59) K/uL Eos # (Auto) (0-0.5) K/uL Baso # (Auto) (0-0.2) K/uL Immature Gran # (Auto) (0.00-0.02) K/uL PT (9.0-12.0) Seconds INR (0.9-1.1) APTT (21.0-31.0) Seconds PTT Ratio Sodium 135 L (136-145) mmol/L Potassium 4.5 D (3.5-5.1) mmol/L Chloride 104 (98-107) mmol/L Carbon Dioxide 26 (21-32) mmol/L Anion Gap 5.0 (3-11) BUN 30 H (7-18) mg/dl Creatinine 1.81 H (0.6-1.4) mg/dl Est Cr Clr Drug Dosing 38.8 ml/min Est GFR ( Amer) 40.6 ml/min Est GFR (Non-Af Amer) 35.0 ml/min BUN/Creatinine Ratio 16.6 (10-20) Glucose 296 H (70-99) mg/dl POC Glucose 287 H (70-99) mg/dl Estimat Average Glucose 103 mg/dl Hemoglobin A1c 5.2 (4.5-5.6) % Calcium 7.8 L (8.5-10.1) mg/dl Magnesium 2.2 (1.8-2.4) mg/dl Troponin I (0-0.045) ng/ml NT-Pro-B Natriuret Pep (0-1800) pg/ml Lipase (73-393) U/L Specimen Hemolysis COVID-19 Eval Order SARS-CoV-2 (PCR) (Negative) Blood Type Antibody Screen Crossmatch 10/30/20 10/30/20 10/30/20 Range/Units 05:17 05:17 05:17 WBC 10.24 (4.8-10.8) K/uL RBC 3.47 L (4.7-6.1) M/uL Hgb 9.3 L 9.4 L (14.0-18.0) g/dL Hct 31.5 L 31.4 L (42-52) % MCV 90.8 (80-100) fL MCH 26.8 (25-34) pg MCHC 29.5 L (32-36) g/dL RDW Std Deviation 58.1 H (36.4-46.3) fL RDW Coeff of Joey 17.4 H (11.5-14.5) % Plt Count 296 (130-400) K/uL MPV 9.1 (7.4-10.4) fL Immature Gran % (Auto) 0.3 % Neut % (Auto) 92.6 % Lymph % (Auto) 7.0 % [place] % (Auto) 0.0 % Eos % (Auto) 0.0 % Baso % (Auto) 0.1 % Neut # (Auto) 9.48 H (1.4-6.5) K/uL Lymph # (Auto) 0.72 L (1.2-3.4) K/uL [place] # (Auto) 0.00 L (0.11-0.59) K/uL Eos # (Auto) 0.00 (0-0.5) K/uL Baso # (Auto) 0.01 (0-0.2) K/uL Immature Gran # (Auto) 0.03 H (0.00-0.02) K/uL PT (9.0-12.0) Seconds INR (0.9-1.1) APTT (21.0-31.0) Seconds PTT Ratio Sodium (136-145) mmol/L Potassium (3.5-5.1) mmol/L Chloride (98-107) mmol/L Carbon Dioxide (21-32) mmol/L Anion Gap (3-11) BUN (7-18) mg/dl Creatinine (0.6-1.4) mg/dl Est Cr Clr Drug Dosing ml/min Est GFR ( Amer) ml/min Est GFR (Non-Af Amer) ml/min BUN/Creatinine Ratio (10-20) Glucose (70-99) mg/dl POC Glucose (70-99) mg/dl Estimat Average Glucose mg/dl Hemoglobin A1c (4.5-5.6) % Calcium (8.5-10.1) mg/dl Magnesium (1.8-2.4) mg/dl Troponin I < 0.015 (0-0.045) ng/ml NT-Pro-B Natriuret Pep (0-1800) pg/ml Lipase (73-393) U/L Specimen Hemolysis COVID-19 Eval Order SARS-CoV-2 (PCR) (Negative) Blood Type Antibody Screen Crossmatch 10/30/20 10/29/20 10/29/20 Range/Units 03:37 22:17 18:04 WBC (4.8-10.8) K/uL RBC (4.7-6.1) M/uL Hgb (14.0-18.0) g/dL Hct (42-52) % MCV (80-100) fL MCH (25-34) pg MCHC (32-36) g/dL RDW Std Deviation (36.4-46.3) fL RDW Coeff of Joey (11.5-14.5) % Plt Count (130-400) K/uL MPV (7.4-10.4) fL Immature Gran % (Auto) % Neut % (Auto) % Lymph % (Auto) % [place] % (Auto) % Eos % (Auto) % Baso % (Auto) % Neut # (Auto) (1.4-6.5) K/uL Lymph # (Auto) (1.2-3.4) K/uL [place] # (Auto) (0.11-0.59) K/uL Eos # (Auto) (0-0.5) K/uL Baso # (Auto) (0-0.2) K/uL Immature Gran # (Auto) (0.00-0.02) K/uL PT (9.0-12.0) Seconds INR (0.9-1.1) APTT (21.0-31.0) Seconds PTT Ratio Sodium (136-145) mmol/L Potassium (3.5-5.1) mmol/L Chloride (98-107) mmol/L Carbon Dioxide (21-32) mmol/L Anion Gap (3-11) BUN (7-18) mg/dl Creatinine (0.6-1.4) mg/dl Est Cr Clr Drug Dosing ml/min Est GFR ( Amer) ml/min Est GFR (Non-Af Amer) ml/min BUN/Creatinine Ratio (10-20) Glucose (70-99) mg/dl POC Glucose 290 H 146 H (70-99) mg/dl Estimat Average Glucose mg/dl Hemoglobin A1c (4.5-5.6) % Calcium (8.5-10.1) mg/dl Magnesium (1.8-2.4) mg/dl Troponin I (0-0.045) ng/ml NT-Pro-B Natriuret Pep (0-1800) pg/ml Lipase (73-393) U/L Specimen Hemolysis COVID-19 Eval Order SARS-CoV-2 (PCR) (Negative) Blood Type A Positive Antibody Screen NEGATIVE Crossmatch See Detail 10/29/20 10/29/20 10/29/20 Range/Units 17:17 17:17 17:17 WBC (4.8-10.8) K/uL RBC (4.7-6.1) M/uL Hgb (14.0-18.0) g/dL Hct (42-52) % MCV (80-100) fL MCH (25-34) pg MCHC (32-36) g/dL RDW Std Deviation (36.4-46.3) fL RDW Coeff of Joey (11.5-14.5) % Plt Count (130-400) K/uL MPV (7.4-10.4) fL Immature Gran % (Auto) % Neut % (Auto) % Lymph % (Auto) % [place] % (Auto) % Eos % (Auto) % Baso % (Auto) % Neut # (Auto) (1.4-6.5) K/uL Lymph # (Auto) (1.2-3.4) K/uL [place] # (Auto) (0.11-0.59) K/uL Eos # (Auto) (0-0.5) K/uL Baso # (Auto) (0-0.2) K/uL Immature Gran # (Auto) (0.00-0.02) K/uL PT (9.0-12.0) Seconds INR (0.9-1.1) APTT (21.0-31.0) Seconds PTT Ratio Sodium 138 (136-145) mmol/L Potassium 3.9 (3.5-5.1) mmol/L Chloride 104 (98-107) mmol/L Carbon Dioxide 25 (21-32) mmol/L Anion Gap 9.0 (3-11) BUN 29 H (7-18) mg/dl Creatinine 1.76 H (0.6-1.4) mg/dl Est Cr Clr Drug Dosing 39.9 ml/min Est GFR ( Amer) 42.0 ml/min Est GFR (Non-Af Amer) 36.2 ml/min BUN/Creatinine Ratio 16.6 (10-20) Glucose 251 H (70-99) mg/dl POC Glucose (70-99) mg/dl Estimat Average Glucose mg/dl Hemoglobin A1c (4.5-5.6) % Calcium 7.7 L (8.5-10.1) mg/dl Magnesium 2.2 (1.8-2.4) mg/dl Troponin I < 0.015 (0-0.045) ng/ml NT-Pro-B Natriuret Pep 355 (0-1800) pg/ml Lipase 272 (73-393) U/L Specimen Hemolysis COVID-19 Eval Order Covid19 at [facility] SARS-CoV-2 (PCR) NEGATIVE (Negative) Blood Type Antibody Screen Crossmatch 10/29/20 10/29/20 Range/Units 17:15 17:15 WBC 8.16 (4.8-10.8) K/uL RBC 3.01 L (4.7-6.1) M/uL Hgb 8.2 L (14.0-18.0) g/dL Hct 27.8 L (42-52) % MCV 92.4 (80-100) fL MCH 27.2 (25-34) pg MCHC 29.5 L (32-36) g/dL RDW Std Deviation 62.8 H (36.4-46.3) fL RDW Coeff of Joey 18.3 H (11.5-14.5) % Plt Count 294 (130-400) K/uL MPV 9.2 (7.4-10.4) fL Immature Gran % (Auto) 0.2 % Neut % (Auto) 81.2 % Lymph % (Auto) 13.1 % [place] % (Auto) 2.7 % Eos % (Auto) 2.6 % Baso % (Auto) 0.2 % Neut # (Auto) 6.62 H (1.4-6.5) K/uL Lymph # (Auto) 1.07 L (1.2-3.4) K/uL [place] # (Auto) 0.22 (0.11-0.59) K/uL Eos # (Auto) 0.21 (0-0.5) K/uL Baso # (Auto) 0.02 (0-0.2) K/uL Immature Gran # (Auto) 0.02 (0.00-0.02) K/uL PT 10.2 (9.0-12.0) Seconds INR 1.0 (0.9-1.1) APTT 30.8 (21.0-31.0) Seconds PTT Ratio 1.2 Sodium (136-145) mmol/L Potassium (3.5-5.1) mmol/L Chloride (98-107) mmol/L Carbon Dioxide (21-32) mmol/L Anion Gap (3-11) BUN (7-18) mg/dl Creatinine (0.6-1.4) mg/dl Est Cr Clr Drug Dosing ml/min Est GFR ( Amer) ml/min Est GFR (Non-Af Amer) ml/min BUN/Creatinine Ratio (10-20) Glucose (70-99) mg/dl POC Glucose (70-99) mg/dl Estimat Average Glucose mg/dl Hemoglobin A1c (4.5-5.6) % Calcium (8.5-10.1) mg/dl Magnesium (1.8-2.4) mg/dl Troponin I (0-0.045) ng/ml NT-Pro-B Natriuret Pep (0-1800) pg/ml Lipase (73-393) U/L Specimen Hemolysis COVID-19 Eval Order SARS-CoV-2 (PCR) (Negative) Blood Type Antibody Screen Crossmatch Diagnostic Findings CXR: 1. No significant change compared to the prior study. No acute process within the chest. 2. The tip of the left subclavian Port-A-Cath terminates in the azygos vein. This remains unchanged.
--- NOTE | 2020-10-30 08:33 | Hospitalist Progress Note ---
Date of Service October 30, 2020 Assessment & Plan (1) Symptomatic anemia: (2) Chest pain at rest: Plan: This is a 80-year-old male who presents with shortness of breath. 1. Shortness of breath, secondary to symptomatic anemia - history of diastolic congestive heart failure, history of chronic obstructive pulmonary disease. No obvious wheezing on exam. Transfused 1 unit of PRBC on admission, current Hgb >9. His Hemoccult was positive in ER. Closely monitor in the med-telemetry. 2. Symptomatic anemia, acute on chronic blood loss anemia, iron-deficiency anemia, had multiple EGDs and colonoscopies. Currently on IV iron infusions. His Hemoccult was positive in the Emergency Room. Continue Protonix drip, transfused 1 unit of PRBC on admission. Cont. to monitor H&H Gastroenterology consulted, patient underwent EGD earlier today (10/30/2020) Impression: - Normal esophagus. - Normal stomach. - Normal examined duodenum. - A single bleeding angiodysplastic lesion in the jejunum. Treated with argon plasma coagulation (APC). Clips (MR conditional) were placed. - No specimens collected. Recommendation: - Return patient to [facility] for ongoing care. - Perform a colonoscopy tomorrow. - VCE as OP to check for other AVMs. 3. chest pain. He gets on and off chest pain; he says when his blood count drops down, he gets palpitation and chest pain.Currently asymptomatic. Initial workup is negative, consulted cardiology for further recommendation- believe symptoms are secondary to symptomatic anemia, continue aspirin uninterrupted, and keep hemoglobin > 9 4. History of chronic diastolic congestive heart failure. Continue his home diuretics. Monitor for any volume overload. 5. History of obstructive sleep apnea. Continue his CPAP at bedtime. 6. History of high-grade atrioventricular conduction block, status post pacemaker. 7. Morbid obesity. Needs counseling. 8. Henning's esophagus with dysplasia, on proton pump inhibitor. 9. Chronic kidney disease stage IV, baseline creatinine around 2, currently Cr 1.76, we will follow the laboratories. 10. CAD, s/p coronary artery bypass grafting, status post stents. Continue on aspirin, and statin. 11. History of diabetes. He is on high-dose of Tresiba insulin, we will hold. Currently n.p.o. We will place him on insulin sliding scale and Lantus and consult with glycemic pharmacy consult. 12. Hypertension. Currently on only diuretics. We will monitor the blood pressure. 13. History of gout, on allopurinol. 14. History of psoriasis and psoriatic arthropathy, on Enbrel weekly. 15. Occasional dysphagia. Await GI inputs DVT prophylaxis: sequential compression devices. DISPOSITION: Closely monitor in the med tele. PT/OT prior to discharge. Code: Full Admission and Anticipated Discharge Date Admission Date: October 29, 2020 Subjective Patient seen in follow-up of symptomatic anemia, chest pain Patient received 1 unit of PRBCs on admission Currently sitting in the chair, in no acute distress Underwent EGD earlier today, with hemostasis Currently denies any chest pain shortness of breath dizziness, feels much improved plan for colonoscopy tomorrow Monitor H&H Review of Systems Review of Systems: All systems reviewed & are unremarkable except as noted in Subjective Physical Exam Physical Exam: GENERAL: morbidly obese F, in NAD HEENT: NC/AT, EOMI, PERRL, Oral mucosa moist. NECK: No JVD, no neck masses. CARDIOVASCULAR: S1 and S2 heard, regular rate and rhythm. No murmur, no gallop. RESPIRATORY: Normal AP diameter. No accessory muscle use. No wheezing, no crackles. ABDOMEN: Soft, bowel sounds present, nontender, no distention. NEURO: Alert oriented, answers questions appropriately, no facial asymmetry, speech fluent, moves extremities EXTREMITIES: Mild pedal edema present, no erythema seen. Results & Data Results & Data ([facility]) Vital Signs (Past 12 Hours) Vital Signs Temp Pulse Pulse Resp BP BP BP 10/30/20 07:37 70 10/30/20 07:00 36.6 C 72 20 155/68 H 10/30/20 03:58 36.6 C 69 18 142/71 H 10/30/20 02:09 36.6 C 94 H 18 143/84 H 10/30/20 00:57 36.6 C 67 18 129/76 10/30/20 00:55 36.6 C 67 18 129/76 10/30/20 00:29 36.6 C 72 16 135/69 10/30/20 00:14 36.6 C 69 16 135/66 10/29/20 23:56 36.6 C 72 16 122/53 L 10/29/20 23:42 36.4 C L 74 18 140/66 10/29/20 21:30 73 19 140/79 10/29/20 21:00 72 13 134/75 Pulse Ox 10/30/20 07:37 10/30/20 07:00 95 10/30/20 03:58 95 10/30/20 02:09 94 10/30/20 00:57 94 10/30/20 00:55 94 10/30/20 00:29 95 10/30/20 00:14 95 10/29/20 23:56 95 10/29/20 23:42 98 10/29/20 21:30 95 10/29/20 21:00 95 Laboratory Results 10/30/20 10/30/20 10/30/20 Range/Units 12:28 12:19 12:19 WBC (4.8-10.8) K/uL RBC (4.7-6.1) M/uL Hgb 9.3 L (14.0-18.0) g/dL Hct 30.8 L (42-52) % MCV (80-100) fL MCH (25-34) pg MCHC (32-36) g/dL RDW Std Deviation (36.4-46.3) fL RDW Coeff of Joey (11.5-14.5) % Plt Count (130-400) K/uL MPV (7.4-10.4) fL Immature Gran % (Auto) % Neut % (Auto) % Lymph % (Auto) % [place] % (Auto) % Eos % (Auto) % Baso % (Auto) % Neut # (Auto) (1.4-6.5) K/uL Lymph # (Auto) (1.2-3.4) K/uL [place] # (Auto) (0.11-0.59) K/uL Eos # (Auto) (0-0.5) K/uL Baso # (Auto) (0-0.2) K/uL Immature Gran # (Auto) (0.00-0.02) K/uL PT (9.0-12.0) Seconds INR (0.9-1.1) APTT (21.0-31.0) Seconds PTT Ratio Sodium (136-145) mmol/L Potassium (3.5-5.1) mmol/L Chloride (98-107) mmol/L Carbon Dioxide (21-32) mmol/L Anion Gap (3-11) BUN (7-18) mg/dl Creatinine (0.6-1.4) mg/dl Est Cr Clr Drug Dosing ml/min Est GFR ( Amer) ml/min Est GFR (Non-Af Amer) ml/min BUN/Creatinine Ratio (10-20) Glucose (70-99) mg/dl POC Glucose 262 H (70-99) mg/dl Estimat Average Glucose mg/dl Hemoglobin A1c (4.5-5.6) % Calcium (8.5-10.1) mg/dl Magnesium (1.8-2.4) mg/dl Troponin I < 0.015 (0-0.045) ng/ml NT-Pro-B Natriuret Pep (0-1800) pg/ml Lipase (73-393) U/L Specimen Hemolysis COVID-19 Eval Order SARS-CoV-2 (PCR) (Negative) Blood Type Antibody Screen Crossmatch 10/30/20 10/30/20 10/30/20 Range/Units 08:06 05:17 05:17 WBC (4.8-10.8) K/uL RBC (4.7-6.1) M/uL Hgb (14.0-18.0) g/dL Hct (42-52) % MCV (80-100) fL MCH (25-34) pg MCHC (32-36) g/dL RDW Std Deviation (36.4-46.3) fL RDW Coeff of Joey (11.5-14.5) % Plt Count (130-400) K/uL MPV (7.4-10.4) fL Immature Gran % (Auto) % Neut % (Auto) % Lymph % (Auto) % [place] % (Auto) % Eos % (Auto) % Baso % (Auto) % Neut # (Auto) (1.4-6.5) K/uL Lymph # (Auto) (1.2-3.4) K/uL [place] # (Auto) (0.11-0.59) K/uL Eos # (Auto) (0-0.5) K/uL Baso # (Auto) (0-0.2) K/uL Immature Gran # (Auto) (0.00-0.02) K/uL PT (9.0-12.0) Seconds INR (0.9-1.1) APTT (21.0-31.0) Seconds PTT Ratio Sodium 135 L (136-145) mmol/L Potassium 4.5 D (3.5-5.1) mmol/L Chloride 104 (98-107) mmol/L Carbon Dioxide 26 (21-32) mmol/L Anion Gap 5.0 (3-11) BUN 30 H (7-18) mg/dl Creatinine 1.81 H (0.6-1.4) mg/dl Est Cr Clr Drug Dosing 38.8 ml/min Est GFR ( Amer) 40.6 ml/min Est GFR (Non-Af Amer) 35.0 ml/min BUN/Creatinine Ratio 16.6 (10-20) Glucose 296 H (70-99) mg/dl POC Glucose 287 H (70-99) mg/dl Estimat Average Glucose 103 mg/dl Hemoglobin A1c 5.2 (4.5-5.6) % Calcium 7.8 L (8.5-10.1) mg/dl Magnesium 2.2 (1.8-2.4) mg/dl Troponin I (0-0.045) ng/ml NT-Pro-B Natriuret Pep (0-1800) pg/ml Lipase (73-393) U/L Specimen Hemolysis COVID-19 Eval Order SARS-CoV-2 (PCR) (Negative) Blood Type Antibody Screen Crossmatch 10/30/20 10/30/20 10/30/20 Range/Units 05:17 05:17 05:17 WBC 10.24 (4.8-10.8) K/uL RBC 3.47 L (4.7-6.1) M/uL Hgb 9.3 L 9.4 L (14.0-18.0) g/dL Hct 31.5 L 31.4 L (42-52) % MCV 90.8 (80-100) fL MCH 26.8 (25-34) pg MCHC 29.5 L (32-36) g/dL RDW Std Deviation 58.1 H (36.4-46.3) fL RDW Coeff of Joey 17.4 H (11.5-14.5) % Plt Count 296 (130-400) K/uL MPV 9.1 (7.4-10.4) fL Immature Gran % (Auto) 0.3 % Neut % (Auto) 92.6 % Lymph % (Auto) 7.0 % [place] % (Auto) 0.0 % Eos % (Auto) 0.0 % Baso % (Auto) 0.1 % Neut # (Auto) 9.48 H (1.4-6.5) K/uL Lymph # (Auto) 0.72 L (1.2-3.4) K/uL [place] # (Auto) 0.00 L (0.11-0.59) K/uL Eos # (Auto) 0.00 (0-0.5) K/uL Baso # (Auto) 0.01 (0-0.2) K/uL Immature Gran # (Auto) 0.03 H (0.00-0.02) K/uL PT (9.0-12.0) Seconds INR (0.9-1.1) APTT (21.0-31.0) Seconds PTT Ratio Sodium (136-145) mmol/L Potassium (3.5-5.1) mmol/L Chloride (98-107) mmol/L Carbon Dioxide (21-32) mmol/L Anion Gap (3-11) BUN (7-18) mg/dl Creatinine (0.6-1.4) mg/dl Est Cr Clr Drug Dosing ml/min Est GFR ( Amer) ml/min Est GFR (Non-Af Amer) ml/min BUN/Creatinine Ratio (10-20) Glucose (70-99) mg/dl POC Glucose (70-99) mg/dl Estimat Average Glucose mg/dl Hemoglobin A1c (4.5-5.6) % Calcium (8.5-10.1) mg/dl Magnesium (1.8-2.4) mg/dl Troponin I < 0.015 (0-0.045) ng/ml NT-Pro-B Natriuret Pep (0-1800) pg/ml Lipase (73-393) U/L Specimen Hemolysis COVID-19 Eval Order SARS-CoV-2 (PCR) (Negative) Blood Type Antibody Screen Crossmatch 10/30/20 10/29/20 10/29/20 Range/Units 03:37 22:17 18:04 WBC (4.8-10.8) K/uL RBC (4.7-6.1) M/uL Hgb (14.0-18.0) g/dL Hct (42-52) % MCV (80-100) fL MCH (25-34) pg MCHC (32-36) g/dL RDW Std Deviation (36.4-46.3) fL RDW Coeff of Joey (11.5-14.5) % Plt Count (130-400) K/uL MPV (7.4-10.4) fL Immature Gran % (Auto) % Neut % (Auto) % Lymph % (Auto) % [place] % (Auto) % Eos % (Auto) % Baso % (Auto) % Neut # (Auto) (1.4-6.5) K/uL Lymph # (Auto) (1.2-3.4) K/uL [place] # (Auto) (0.11-0.59) K/uL Eos # (Auto) (0-0.5) K/uL Baso # (Auto) (0-0.2) K/uL Immature Gran # (Auto) (0.00-0.02) K/uL PT (9.0-12.0) Seconds INR (0.9-1.1) APTT (21.0-31.0) Seconds PTT Ratio Sodium (136-145) mmol/L Potassium (3.5-5.1) mmol/L Chloride (98-107) mmol/L Carbon Dioxide (21-32) mmol/L Anion Gap (3-11) BUN (7-18) mg/dl Creatinine (0.6-1.4) mg/dl Est Cr Clr Drug Dosing ml/min Est GFR ( Amer) ml/min Est GFR (Non-Af Amer) ml/min BUN/Creatinine Ratio (10-20) Glucose (70-99) mg/dl POC Glucose 290 H 146 H (70-99) mg/dl Estimat Average Glucose mg/dl Hemoglobin A1c (4.5-5.6) % Calcium (8.5-10.1) mg/dl Magnesium (1.8-2.4) mg/dl Troponin I (0-0.045) ng/ml NT-Pro-B Natriuret Pep (0-1800) pg/ml Lipase (73-393) U/L Specimen Hemolysis COVID-19 Eval Order SARS-CoV-2 (PCR) (Negative) Blood Type A Positive Antibody Screen NEGATIVE Crossmatch See Detail 10/29/20 10/29/20 10/29/20 Range/Units 17:17 17:17 17:17 WBC (4.8-10.8) K/uL RBC (4.7-6.1) M/uL Hgb (14.0-18.0) g/dL Hct (42-52) % MCV (80-100) fL MCH (25-34) pg MCHC (32-36) g/dL RDW Std Deviation (36.4-46.3) fL RDW Coeff of Joey (11.5-14.5) % Plt Count (130-400) K/uL MPV (7.4-10.4) fL Immature Gran % (Auto) % Neut % (Auto) % Lymph % (Auto) % [place] % (Auto) % Eos % (Auto) % Baso % (Auto) % Neut # (Auto) (1.4-6.5) K/uL Lymph # (Auto) (1.2-3.4) K/uL [place] # (Auto) (0.11-0.59) K/uL Eos # (Auto) (0-0.5) K/uL Baso # (Auto) (0-0.2) K/uL Immature Gran # (Auto) (0.00-0.02) K/uL PT (9.0-12.0) Seconds INR (0.9-1.1) APTT (21.0-31.0) Seconds PTT Ratio Sodium 138 (136-145) mmol/L Potassium 3.9 (3.5-5.1) mmol/L Chloride 104 (98-107) mmol/L Carbon Dioxide 25 (21-32) mmol/L Anion Gap 9.0 (3-11) BUN 29 H (7-18) mg/dl Creatinine 1.76 H (0.6-1.4) mg/dl Est Cr Clr Drug Dosing 39.9 ml/min Est GFR ( Amer) 42.0 ml/min Est GFR (Non-Af Amer) 36.2 ml/min BUN/Creatinine Ratio 16.6 (10-20) Glucose 251 H (70-99) mg/dl POC Glucose (70-99) mg/dl Estimat Average Glucose mg/dl Hemoglobin A1c (4.5-5.6) % Calcium 7.7 L (8.5-10.1) mg/dl Magnesium 2.2 (1.8-2.4) mg/dl Troponin I < 0.015 (0-0.045) ng/ml NT-Pro-B Natriuret Pep 355 (0-1800) pg/ml Lipase 272 (73-393) U/L Specimen Hemolysis COVID-19 Eval Order Covid19 at [facility] SARS-CoV-2 (PCR) NEGATIVE (Negative) Blood Type Antibody Screen Crossmatch 10/29/20 10/29/20 Range/Units 17:15 17:15 WBC 8.16 (4.8-10.8) K/uL RBC 3.01 L (4.7-6.1) M/uL Hgb 8.2 L (14.0-18.0) g/dL Hct 27.8 L (42-52) % MCV 92.4 (80-100) fL MCH 27.2 (25-34) pg MCHC 29.5 L (32-36) g/dL RDW Std Deviation 62.8 H (36.4-46.3) fL RDW Coeff of Joey 18.3 H (11.5-14.5) % Plt Count 294 (130-400) K/uL MPV 9.2 (7.4-10.4) fL Immature Gran % (Auto) 0.2 % Neut % (Auto) 81.2 % Lymph % (Auto) 13.1 % [place] % (Auto) 2.7 % Eos % (Auto) 2.6 % Baso % (Auto) 0.2 % Neut # (Auto) 6.62 H (1.4-6.5) K/uL Lymph # (Auto) 1.07 L (1.2-3.4) K/uL [place] # (Auto) 0.22 (0.11-0.59) K/uL Eos # (Auto) 0.21 (0-0.5) K/uL Baso # (Auto) 0.02 (0-0.2) K/uL Immature Gran # (Auto) 0.02 (0.00-0.02) K/uL PT 10.2 (9.0-12.0) Seconds INR 1.0 (0.9-1.1) APTT 30.8 (21.0-31.0) Seconds PTT Ratio 1.2 Sodium (136-145) mmol/L Potassium (3.5-5.1) mmol/L Chloride (98-107) mmol/L Carbon Dioxide (21-32) mmol/L Anion Gap (3-11) BUN (7-18) mg/dl Creatinine (0.6-1.4) mg/dl Est Cr Clr Drug Dosing ml/min Est GFR ( Amer) ml/min Est GFR (Non-Af Amer) ml/min BUN/Creatinine Ratio (10-20) Glucose (70-99) mg/dl POC Glucose (70-99) mg/dl Estimat Average Glucose mg/dl Hemoglobin A1c (4.5-5.6) % Calcium (8.5-10.1) mg/dl Magnesium (1.8-2.4) mg/dl Troponin I (0-0.045) ng/ml NT-Pro-B Natriuret Pep (0-1800) pg/ml Lipase (73-393) U/L Specimen Hemolysis COVID-19 Eval Order SARS-CoV-2 (PCR) (Negative) Blood Type Antibody Screen Crossmatch Medications Administered Current Inpatient Medications Acetaminophen (Acetaminophen 325 Mg Tab) 650 mg PO Q4H PRN PRN Reason: Pain or Fever Stop: 11/28/20 22:30 Allopurinol (Allopurinol 300 Mg Tab) 300 mg PO DAILY ELMER Stop: 11/29/20 08:59 Last Admin: 10/30/20 07:59 Dose: 300 mg Documented by: Aspirin (Aspirin 81 Mg Ectab) 81 mg PO DAILY ELMER Stop: 11/29/20 08:59 Last Admin: 10/30/20 08:00 Dose: 81 mg Documented by: Atorvastatin Calcium (Atorvastatin 40 Mg Tab) 80 mg PO QPM ELMER Stop: 11/28/20 22:59 Last Admin: 10/29/20 23:41 Dose: 80 mg Documented by: Dextrose (Dextrose 50% 50 Ml Syringe) 25 - 50 ml IV UD PRN; Protocol PRN Reason: Hypoglycemia Protocol Stop: 11/28/20 23:14 Fluticasone Propionate (Fluticasone Propionate Na Spr 16 Gm Btl) 2 sprays NA DAILY ELMER Stop: 11/29/20 08:59 Last Admin: 10/30/20 08:00 Dose: 2 sprays Documented by: Folic Acid (Folic Acid 1 Mg Tab) 1 mg PO DAILY ELMER Stop: 11/29/20 08:59 Last Admin: 10/30/20 07:59 Dose: 1 mg Documented by: Furosemide (Furosemide 80 Mg Tab) 80 mg PO QAM ELMER Stop: 11/29/20 08:59 Last Admin: 10/30/20 07:59 Dose: 80 mg Documented by: Glucagon (Glucagon For Inj 1 Mg Vial) 1 mg IM UD PRN; Protocol PRN Reason: Hypoglycemia Protocol Stop: 11/28/20 23:14 Glucose (Glucose 40% Gel 15 Gm Tube) 15 - 30 gm PO UD PRN; Protocol PRN Reason: Hypoglycemia Protocol Stop: 11/28/20 23:14 Glucose (Glucose 10 Tabs/Tube) 4 - 8 tabs PO UD PRN; Protocol PRN Reason: Hypoglycemia Protocol Stop: 11/28/20 23:14 Heparin Sodium (Porcine) (Heparin 100 Unit/Ml 5ml Flush) 5 ml FLUSH PRN PRN PRN Reason: Flush Stop: 11/29/20 02:46 Sodium Chloride (Nss) 250 mls @ 15 mls/hr IV .[id number] PRN PRN Reason: For Transfusion Stop: 11/28/20 22:30 Pantoprazole Sodium 40 mg/ (Dextrose) 100 mls @ 20 mls/hr IV Q5H ELMER Stop: 11/28/20 23:14 Last Admin: 10/30/20 05:42 Dose: 8 mg/hr, 20 mls/hr Documented by: Insulin Aspart (Insulin Aspart 100 Units/Ml 3 Ml Pen) 0 units SC ACHS ELMER; Protocol Stop: 11/28/20 23:14 Last Admin: 10/29/20 23:42 Dose: 7 units Documented by: Levalbuterol HCl (Levalbuterol Hcl 1.25 Mg/3 Ml Neb) 1.25 mg NEB Q4R PRN PRN Reason: Shortness Of Breath Or Wheezing Stop: 11/28/20 22:30 Miscellaneous (Carbohydrates For Hypoglycemia ) 15 - 30 gm PO UD PRN PRN Reason: Hypoglycemia Treatment Stop: 11/28/20 23:14 Miscellaneous Information (Pharmacy Glycemic Mgmt Consult) 1 ea N/A UD PRN PRN Reason: Consult Stop: 11/28/20 22:30 Nitroglycerin (Nitroglycerin Sl 0.4 Mg/Tab Tab) 0.4 mg SL UD PRN PRN Reason: Chest Pain Stop: 11/28/20 22:30 Nitroglycerin (Nitroglycerin Sl 0.4 Mg/Tab Tab) 0.4 mg SL UD PRN PRN Reason: Chest Pain Stop: 11/28/20 22:30 Ondansetron HCl (Ondansetron Inj 2 Mg/Ml 2 Ml Vial) 4 mg IV Q6H PRN PRN Reason: Nausea Stop: 11/28/20 22:30 Polyethylene Glycol (Polyethylene (Miralax) 17 Gm Pack) 17 gm PO DAILY PRN PRN Reason: Constipation Stop: 11/28/20 22:30 Tramadol HCl (Tramadol Hcl 50 Mg Tablet) 50 mg PO Q6H PRN PRN Reason: pain Stop: 11/28/20 22:30
--- NOTE | 2020-10-30 08:50 | Anesthesiology Consultation ---
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 Diaz - Annelise Diaz MD Height/Weight Height: 5 ft 4 in Weight: 117.6 kg Allergies Allergy/AdvReac Type Severity Reaction Status Date / Time methylprednisolone AdvReac Severe AMS Verified 10/29/20 18:09 hydromorphone [From Dilaudid] AdvReac Intermediate Nausea Verified 10/29/20 18: 09 prednisone AdvReac Mild INCREASE Verified 10/29/20 18:09 BLOOD SUGAR Medications Home Medications Medication Instructions Recorded Confirmed Last Taken atorvastatin 80 mg tablet 80 mg PO QPM 11/13/17 10/29/20 05/28/19 fluticasone propionate 50 2 spray INTRANASAL DAILY 11/13/17 10/29/20 04/19/18 mcg/actuation nasal spray,suspension (Flonase Allergy Relief) insulin degludec 200 unit/mL (3 120 unit SUBCUT QAM 11/13/17 10/29/20 05/28/19 mL) subcutaneous pen (Tresiba FlexTouch U-200 insulin) nitroglycerin 0.4 mg sublingual 0.4 mg SUBLINGUAL UD PRN 11/13/17 10/29/20 Unknown tablet (Nitrostat) etanercept 50 mg/mL (1 mL) 1 dose SUBCUT WK 04/10/18 10/29/20 04/18/18 subcutaneous pen injector (Enbrel SureClick) furosemide 80 mg tablet (Lasix) 80 mg PO QAM 04/20/18 10/29/20 05/28/19 omeprazole 20 mg tablet,delayed 20 mg PO BID #60 tab 10/14/19 10/29/20 Unknown release allopurinol 300 mg tablet 300 mg PO DAILY 06/09/20 10/29/20 Unknown aspirin 81 mg tablet,delayed 81 mg PO DAILY 06/09/20 10/29/20 Unknown release (Aspirin Low Dose) folic acid 1 mg tablet 1 mg PO DAILY 06/09/20 10/29/20 Unknown tramadol 50 mg tablet 50 mg PO Q6H PRN #30 tab 06/12/20 10/29/20 Unknown insulin aspart U-100 100 unit/mL 0 - 60 unit SUBCUT AMPM 10/29/20 10/29/20 Unknown (3 mL) subcutaneous pen (Novolog Flexpen U-100 Insulin aspart) liraglutide 0.6 mg/0.1 mL (18 mg/3 1.8 mg SUBCUT DAILY 10/29/20 10/29/20 Unknown mL) subcutaneous pen injector (Victoza 3-Kei) Active Medications Generic Name Dose Route Start Last Admin Trade Name Freq PRN Reason Stop Dose Admin Allopurinol 300 mg 10/30/20 09:00 10/30/20 07:59 Allopurinol 300 Mg Tab PO 11/29/20 08:59 300 mg DAILY ELMER Administration Aspirin 81 mg 10/30/20 09:00 10/30/20 08:00 Aspirin 81 Mg Ectab PO 11/29/20 08:59 81 mg DAILY ELMER Administration Atorvastatin Calcium 80 mg 10/29/20 23:00 10/29/20 23:41 Atorvastatin 40 Mg Tab PO 11/28/20 22:59 80 mg QPM ELMER Administration Fluticasone Propionate 2 sprays 10/30/20 09:00 10/30/20 08:00 Fluticasone Propionate Na Spr 16 Gm Btl NA 11/29/20 08:59 2 sprays DAILY ELMER Administration Folic Acid 1 mg 10/30/20 09:00 10/30/20 07:59 Folic Acid 1 Mg Tab PO 11/29/20 08:59 1 mg DAILY ELMER Administration Furosemide 80 mg 10/30/20 09:00 10/30/20 07:59 Furosemide 80 Mg Tab PO 11/29/20 08:59 80 mg QAM ELMER Administration Pantoprazole Sodium 40 mg/ 100 mls @ 20 mls/hr 10/29/20 23:15 10/30/20 05:42 Dextrose IV 11/28/20 23:14 8 mg/hr Q5H ELMER 20 mls/hr Administration 8 MG/HR Insulin Aspart 0 units 10/29/20 23:15 10/29/20 23:42 Insulin Aspart 100 Units/Ml 3 Ml Pen SC 11/28/20 23:14 7 units ACHS ELMER Administration Protocol Past Medical History Medical History Anemia Chest pain CHF (congestive heart failure) Chronic obstructive pulmonary disease Diabetes Diabetes mellitus, type 2 Diverticular disease GERD (gastroesophageal reflux disease) History of colon polyps Hyperlipidemia Hypertension Obesity On home oxygen therapy 2L N/C prn SOB Osteoarthritis Prostate cancer radiation seeds Psoriasis Shortness of breath on exertion oxygen 2L n/c prn Sleep apnea cpap--no oxygen Stage 4 chronic kidney disease Past Family History Family History Other No family history of adverse response to anesthesia Past Surgical History Surgical History History of cardiac cath had 4 total--last 2015 @ [facility] History of colonoscopy History of esophagogastroduodenoscopy (EGD) History of heart artery stent x6 stents total History of prostate biopsy malignant History of tooth extraction S/P CABG x 3 2008 @ [facility]---follows with Dr. Rolon Status post LASIK surgery of both eyes Social History Smoking Status: Former smoker Hx Alcohol Use: No Hx Substance Use: No substance use type: does not use Physical Exam Vital Signs Last Vital Signs Temp 97.9 F 10/30/20 07:00 Pulse 70 10/30/20 07:37 Resp 20 10/30/20 07:00 BP 155/68 H 10/30/20 07:00 Pulse Ox 95 10/30/20 07:00 Testing Laboratory Results 10/30/20 05:17 10/30/20 05:17 PT 10.2 Seconds (9.0-12.0) 10/29/20 17:15 INR 1.0 (0.9-1.1) 10/29/20 17:15 APTT 30.8 Seconds (21.0-31.0) 10/29/20 17:15 Hemoglobin A1c 5.2 % (4.5-5.6) 10/30/20 05:17 Blood Type A Positive 10/29/20 18:04 Antibody Screen NEGATIVE 10/29/20 18:04 10/30/20 10/30/20 10/29/20 08:06 03:37 22:17 POC Glucose 287 H 290 H 146 H Electrocardiogram Date: 10/30/20 Atrial-sensed ventricular-paced rhythm, rate 70 bpm Abnormal ECG When compared with ECG of 29-OCT-2020 17:06, (unconfirmed) Premature ventricular complexes are no longer Present Vent. rate has decreased BY 18 BPM Chest X-Ray Date: 10/29/20 IMPRESSION: 1. No significant change compared to the prior study. No acute process within the chest. 2. The tip of the left subclavian Port-A-Cath terminates in the azygos vein. This remains unchanged. Echocardiogram Date: 06/09/20 Technically difficult study given the patient's body habitus and high-grade AV block Grossly normal LV systolic function Unable to visualize any valvular structures
[2020-10-30] MEDS ORDERED: INSULIN GLARGINE SOLOSTAR 100 UNITS/ML 3 ML PEN SC SCH (09:00)
[2020-10-30] MEDS: INSULIN ASPART 100 UNITS/ML 3 ML PEN SC SCH ×4 (09:27→22:59)
--- NOTE | 2020-10-30 09:33 | Cardiology Consultation ---
Date of Consultation October 30, 2020 Assessment & Plan (1) Symptomatic anemia: (2) Chronic blood loss anemia: (3) Coronary artery disease: (4) Hx of CABG: (5) CHF (congestive heart failure): (6) Chest pain at rest: Complex 80 year old male admitted with progressive dyspnea and intermittent chest pain. EKG's reveal a paced rhythm. Troponin negative x 2. Chest x-ray with an acute process within the chest. NT-Pro-B Natriuret Peptide normal at 355 pg/mL. Volume status is compensated via examination. Telemetry thus far has been benign. No significant arrhythmias on recent device interrogation. Risks of further cardiac workup at this time appear to be greater than the benefit. Re commend further evaluation and treatment of the symptomatic anemia. Supervising Physician Co-Signing Physician Notes Patient seen and examined with Blair Hannah PA-C. Agree with findings and assessment as above. Pt with complex cardiac history requiring daily aspirin uninterrupted. Recommend maintaining HGB >9. History of Present Illness Reason for Consultation: Chest pain, shortness of breath Requesting Physician: Kristen Attending Physician: Isabella History of Present Illness Patient seen at the request of Dr. Peterson, evaluation of chest pain and shortness of breath. Patient presented to [facility] on October 29, 2020 due to concern regarding acute on chronic bleeding. He notes "bleeding for years or not making enough blood, lately it's been much worse, faster." Notes receiving IV iron and more frequent transfusion of packed red blood cells, previously unable to tolerate oral iron due to constipation. He has noted intermittent left lower chest pain with associated shortness of breath, an uncomfortable feeling, off and on, that seems to correlate with decline in hemoglobin. Notes prev iously trying sublingual nitroglycerin without benefit. Hemoglobin on presentation was 8.2 g/deciliter. Occult was positive. He received 1 unit of packed red blood cells without difficulty. Hemoglobin this morning is 9.3. He relays plans for EGD later this morning as well as colonoscopy tomorrow. Patient is currently resting comfortably in bed without active/acute chest pain. EKG on presentation revealed an atrial sensed ventricular paced rhythm. EKG this morning also reveals an atrial sensed ventricular paced rhythm. Troponin negative x2. Continuous telemetry monitoring has demonstrated sinus with intermittent pacing, heart rates predominantly in the 60s and 70s. No significant arrhythmias observed. Past Medical and Surgical History: ASCVD History of MS History of CABG on July 10, 2008 with GIVENS to the mid LAD, SVG to second obtuse marginal, and an SVG to the PDA of the RCA. Occluded SVG to the RCA status post PCI of the RCA in [place] High degree heart block status post dual-chamber pacemaker implantation on June 11, 2020 using a Medtronic device. Diastolic congestive heart failure COPD Type 2 diabetes mellitus History of transient ischemic attack Mild carotid occlusive disease Obstructive sleep apnea, CPAP therapy Symptomatic anemia requiring IV iron, multiple transfusions of packed red blood cells Chronic kidney disease Hypertension Dyslipidemia Prostate cancer Impotence Family history of CAD GERD Henning's esophagus with dysplasia BPH Psoriasis, psoriatic arthropathy Gout Osteoarthritis Vitamin D deficiency B12 deficiency Prior colonoscopy with polypectomy Diverticulosis Multiple prior EGD's, colonoscopies, and capsule endoscopies. Family History: Mother with CAD, mI at 82. Father with COPD. Brother with an MS at 46. Social History: Former smoker. No alcohol. No illegal drug use. Originally from the [facility]. Complete Review of Systems: Chronic neck pain. Vision loss. No amaurosis fugax. No epistaxis. No hemoptysis. No hematuria. Bowels are black and constipated despite Metamucil and stool softeners. Occasional issues with dysphagia. No headaches. No unilateral complaints to suggest TIA or CVA. No dizziness. No near syncope or syncope. Complete Review of Systems is as stated above, negative, or noncontributory. Allergies Allergy/AdvReac Type Severity Reaction Status Date / Time methylprednisolone AdvReac Severe AMS Verified 10/29/20 18:09 hydromorphone [From Dilaudid] AdvReac Intermediate Nausea Verified 10/29/20 18:09 prednisone AdvReac Mild INCREASE Verified 10/29/20 18:09 BLOOD SUGAR Home Medications Medication Instructions Recorded Confirmed Type atorvastatin 80 mg tablet 80 mg PO QPM 11/13/17 10/29/20 History fluticasone propionate 50 2 spray INTRANASAL DAILY 11/13/17 10/29/20 History mcg/actuation nasal spray,suspension (Flonase Allergy Relief) insulin degludec 200 unit/mL (3 120 unit SUBCUT QAM 11/13/17 10/29/20 History mL) subcutaneous pen (Tresiba FlexTouch U-200 insulin) nitroglycerin 0.4 mg sublingual 0.4 mg SUBLINGUAL UD PRN 11/13/17 10/29/20 History tablet (Nitrostat) etanercept 50 mg/mL (1 mL) 1 dose SUBCUT WK 04/10/18 10/29/20 History subcutaneous pen injector (Enbrel SureClick) furosemide 80 mg tablet (Lasix) 80 mg PO QAM 04/20/18 10/29/20 History omeprazole 20 mg tablet,delayed 20 mg PO BID #60 tab 10/14/19 10/29/20 Rx release allopurinol 300 mg tablet 300 mg PO DAILY 06/09/20 10/29/20 History aspirin 81 mg tablet,delayed 81 mg PO DAILY 06/09/20 10/29/20 History release (Aspirin Low Dose) folic acid 1 mg tablet 1 mg PO DAILY 06/09/20 10/29/20 History tramadol 50 mg tablet 50 mg PO Q6H PRN #30 tab 06/12/20 10/29/20 Rx insulin aspart U-100 100 unit/mL 0 - 60 unit SUBCUT AMPM 10/29/20 10/29/20 History (3 mL) subcutaneous pen (Novolog Flexpen U-100 Insulin aspart) liraglutide 0.6 mg/0.1 mL (18 mg/3 1.8 mg SUBCUT DAILY 10/29/20 10/29/20 History mL) subcutaneous pen injector (Victoza 3-Kei) Patient History Medical History Anemia Chest pain CHF (congestive heart failure) Chronic obstructive pulmonary disease Diabetes Diabetes mellitus, type 2 Diverticular disease GERD (gastroesophageal reflux disease) History of colon polyps Hyperlipidemia Hypertension Obesity On home oxygen therapy 2L N/C prn SOB Osteoarthritis Prostate cancer radiation seeds Psoriasis Shortness of breath on exertion oxygen 2L n/c prn Sleep apnea cpap--no oxygen Stage 4 chronic kidney disease Surgical History History of cardiac cath had 4 total--last 2015 @ [facility] History of colonoscopy History of esophagogastroduodenoscopy (EGD) History of heart artery stent x6 stents total History of prostate biopsy malignant History of tooth extraction S/P CABG x 3 2008 @ [facility]---follows with Dr. Rolon Status post LASIK surgery of both eyes Family History Other No family history of adverse response to anesthesia Social History Smoking Status: Former smoker Tobacco Type: Cigarettes Second Hand Exposure: No; Hx Alcohol Use: No Hx Substance Use: No Preferred Language: Latvian Communication Ability: Effective Repairer Art Objects Required: No Beliefs That Will Affect Care: None marital status: Current Living Situation: Spouse Feels Safe at Home: Yes Safety Concerns: Feels Safe At This Time Assistive Devices: CPAP, Denture - Upper, Denture - Lower and Oxygen - at Night Physical Exam Physical Exam: General: Awake, alert and oriented x 3. No acute distress. HENT: Normocephalic, atraumatic. Eyes: PER Neck: Right carotid bruit. No JVD. Cardiovascular: RRR. No murmur apprecaited. Pulmonary: Clear to auscultation. No rales, rhonchi, or wheezing. Abdomen: Bowel sounds x 4, soft. Extremities: Trivial edema. No clubbing. No cyanosis. +2 pedal pulses bilaterally. Skin: Warm and dry. Results & Data ([facility]) Vital Signs (Past 12 Hours) Vital Signs Temp Pulse Pulse Resp BP BP BP 10/30/20 07:37 70 10/30/20 07:00 36.6 C 72 20 155/68 H 10/30/20 03:58 36.6 C 69 18 142/71 H 10/30/20 02:09 36.6 C 94 H 18 143/84 H 10/30/20 00:57 36.6 C 67 18 129/76 10/30/20 00:55 36.6 C 67 18 129/76 10/30/20 00:29 36.6 C 72 16 135/69 10/30/20 00:14 36.6 C 69 16 135/66 10/29/20 23:56 36.6 C 72 16 122/53 L 10/29/20 23:42 36.4 C L 74 18 140/66 Pulse Ox 10/30/20 07:37 10/30/20 07:00 95 10/30/20 03:58 95 10/30/20 02:09 94 10/30/20 00:57 94 10/30/20 00:55 94 10/30/20 00:29 95 10/30/20 00:14 95 10/29/20 23:56 95 10/29/20 23:42 98 Laboratory Results Laboratory Results - last 24 hr 10/29/20 10/29/20 10/29/20 17:15 17:15 17:17 WBC 8.16 RBC 3.01 L Hgb 8.2 L Hct 27.8 L MCV 92.4 MCH 27.2 MCHC 29.5 L RDW Std Deviation 62.8 H RDW Coeff of Joey 18.3 H Plt Count 294 MPV 9.2 Immature Gran % (Auto) 0.2 Neut % (Auto) 81.2 Lymph % (Auto) 13.1 [place] % (Auto) 2.7 Eos % (Auto) 2.6 Baso % (Auto) 0.2 Neut # (Auto) 6.62 H Lymph # (Auto) 1.07 L [place] # (Auto) 0.22 Eos # (Auto) 0.21 Baso # (Auto) 0.02 Immature Gran # (Auto) 0.02 PT 10.2 INR 1.0 APTT 30.8 PTT Ratio 1.2 Sodium 138 Potassium 3.9 Chloride 104 Carbon Dioxide 25 Anion Gap 9.0 BUN 29 H Creatinine 1.76 H Est Cr Clr Drug Dosing 39.9 Est GFR ( Amer) 42.0 Est GFR (Non-Af Amer) 36.2 BUN/Creatinine Ratio 16.6 Glucose 251 H POC Glucose Estimat Average Glucose Hemoglobin A1c Calcium 7.7 L Magnesium 2.2 Troponin I < 0.015 NT-Pro-B Natriuret Pep 355 Lipase 272 Specimen Hemolysis COVID-19 Eval Order SARS-CoV-2 (PCR) Blood Type Antibody Screen Crossmatch 10/29/20 10/29/20 10/29/20 17:17 17:17 18:04 WBC RBC Hgb Hct MCV MCH MCHC RDW Std Deviation RDW Coeff of Joey Plt Count MPV Immature Gran % (Auto) Neut % (Auto) Lymph % (Auto) [place] % (Auto) Eos % (Auto) Baso % (Auto) Neut # (Auto) Lymph # (Auto) [place] # (Auto) Eos # (Auto) Baso # (Auto) Immature Gran # (Auto) PT INR APTT PTT Ratio Sodium Potassium Chloride Carbon Dioxide Anion Gap BUN Creatinine Est Cr Clr Drug Dosing Est GFR ( Amer) Est GFR (Non-Af Amer) BUN/Creatinine Ratio Glucose POC Glucose Estimat Average Glucose Hemoglobin A1c Calcium Magnesium Troponin I NT-Pro-B Natriuret Pep Lipase Specimen Hemolysis COVID-19 Eval Order Covid19 at [facility] SARS-CoV-2 (PCR) NEGATIVE Blood Type A Positive Antibody Screen NEGATIVE Crossmatch See Detail 10/29/20 10/30/20 10/30/20 22:17 03:37 05:17 WBC RBC Hgb 9.4 L Hct 31.4 L MCV MCH MCHC RDW Std Deviation RDW Coeff of Joey Plt Count MPV Immature Gran % (Auto) Neut % (Auto) Lymph % (Auto) [place] % (Auto) Eos % (Auto) Baso % (Auto) Neut # (Auto) Lymph # (Auto) [place] # (Auto) Eos # (Auto) Baso # (Auto) Immature Gran # (Auto) PT INR APTT PTT Ratio Sodium Potassium Chloride Carbon Dioxide Anion Gap BUN Creatinine Est Cr Clr Drug Dosing Est GFR ( Amer) Est GFR (Non-Af Amer) BUN/Creatinine Ratio Glucose POC Glucose 146 H 290 H Estimat Average Glucose Hemoglobin A1c Calcium Magnesium Troponin I NT-Pro-B Natriuret Pep Lipase Specimen Hemolysis COVID-19 Eval Order SARS-CoV-2 (PCR) Blood Type Antibody Screen Crossmatch 10/30/20 10/30/20 10/30/20 05:17 05:17 05:17 WBC 10.24 RBC 3.47 L Hgb 9.3 L Hct 31.5 L MCV 90.8 MCH 26.8 MCHC 29.5 L RDW Std Deviation 58.1 H RDW Coeff of Joey 17.4 H Plt Count 296 MPV 9.1 Immature Gran % (Auto) 0.3 Neut % (Auto) 92.6 Lymph % (Auto) 7.0 [place] % (Auto) 0.0 Eos % (Auto) 0.0 Baso % (Auto) 0.1 Neut # (Auto) 9.48 H Lymph # (Auto) 0.72 L [place] # (Auto) 0.00 L Eos # (Auto) 0.00 Baso # (Auto) 0.01 Immature Gran # (Auto) 0.03 H PT INR APTT PTT Ratio Sodium 135 L Potassium 4.5 D Chloride 104 Carbon Dioxide 26 Anion Gap 5.0 BUN 30 H Creatinine 1.81 H Est Cr Clr Drug Dosing 38.8 Est GFR ( Amer) 40.6 Est GFR (Non-Af Amer) 35.0 BUN/Creatinine Ratio 16.6 Glucose 296 H POC Glucose Estimat Average Glucose Hemoglobin A1c Calcium 7.8 L Magnesium 2.2 Troponin I < 0.015 NT-Pro-B Natriuret Pep Lipase Specimen Hemolysis COVID-19 Eval Order SARS-CoV-2 (PCR) Blood Type Antibody Screen Crossmatch 10/30/20 10/30/20 05:17 08:06 WBC RBC Hgb Hct MCV MCH MCHC RDW Std Deviation RDW Coeff of Joey Plt Count MPV Immature Gran % (Auto) Neut % (Auto) Lymph % (Auto) [place] % (Auto) Eos % (Auto) Baso % (Auto) Neut # (Auto) Lymph # (Auto) [place] # (Auto) Eos # (Auto) Baso # (Auto) Immature Gran # (Auto) PT INR APTT PTT Ratio Sodium Potassium Chloride Carbon Dioxide Anion Gap BUN Creatinine Est Cr Clr Drug Dosing Est GFR ( Amer) Est GFR (Non-Af Amer) BUN/Creatinine Ratio Glucose POC Glucose 287 H Estimat Average Glucose 103 Hemoglobin A1c 5.2 Calcium Magnesium Troponin I NT-Pro-B Natriuret Pep Lipase Specimen Hemolysis COVID-19 Eval Order SARS-CoV-2 (PCR) Blood Type Antibody Screen Crossmatch Diagnostic Findings Cardiac catheterization on August 25, 2016 with significant three-vessel coronary artery disease. The previously placed stent to the proximal RCA and mid RCA had no in-stent restenosis. 2 of 3 bypass grafts patent. Mild pulmonary hypertension noted. June 09, 2020 TTE Interpretation Summary ([facility]): Technically difficult. Grossly normal LV systolic function. Unable to visualize any valvular structures. Pacemaker interrogation on August 08, 2020 demonstrated appropriate function. Remaining longevity: 16.5 years. Atrial paced 10.4%. Ventricular paced 82.1%. 8 seconds of AT/AF noted from June 20, 2020 to August 08, 2020
[2020-10-30] MEDS ORDERED: ALBUT/IPRATROP 3MG/0.5MG NEB 3 ML VIAL NEB STA (10:01)
--- NOTE | 2020-10-30 10:09 | History & Physical Bridge Note ---
Date of Service October 30, 2020 History & Physical Bridge Note I have examined the patient, reviewed the History & Physical and in the interval since the performance of the History & Physical I have noted the following changes of clinical significance: no changes noted EGD today Patient was explained in detail regarding risks, benefits, limitations and alternatives of the above endoscopic procedure. Risks of intravenous sedation used for procedure were also explained. Risks include, but not limited to pe rforation, bleeding, infection, respiratory distress, cardiac arrest and . Patient is also aware about the possibility of missed lesion. Patient's questions were answered. The patient verbalized understanding the information and agreed to undergo the procedure.
[2020-10-30] MEDS ORDERED: ALBUT/IPRATROP 3MG/0.5MG NEB 3 ML VIAL ONE (10:11)
[2020-10-30] MEDS ORDERED: PROPOFOL IV EMULSION 10 MG/ML 20 ML VIAL IV ONE (10:20)
[2020-10-30] MEDS ORDERED: KETAMINE 50 MG/5 ML SYRINGE ONE (10:20)
[2020-10-30] MEDS ORDERED: LIDOCAINE 2% 2 ML VIAL/AMP(20MG/ML) INFIL ONE (10:20)
--- NOTE | 2020-10-30 10:20 | Pharmacy Report ---
Pharmacy Glycemic Short Note 2 - Date of Service October 30, 2020 - Glycemic Short BSG Results (Last 24 hours): 10/29/20 10/29/20 10/30/20 17:17 22:17 03:37 Glucose 251 H POC Glucose 146 H 290 H 10/30/20 10/30/20 05:17 08:06 Glucose 296 H POC Glucose 287 H OUTPATIENT ANTIDIABETIC REGIMEN: * Tresiba 120 units SQ QAM * Victoza 1.8 mg SQ daily * Novolog insulin SS ASSESSMENT: * 80 y/o M admitted for SOB. Patient with history of CKD-stage 4, anemia and Type 2 diabetes. Patient managed at home on three antidiabetic meds including basal Tresiba and Novolog insulins. * Holding home Victoza while admitted since this is non-formulary. Will continue basal/ bolus insulin for glycemic control as in-patient. * On admission patient had a high BSG of 251 which trended down to 146 at HS then up again to 290 over night. Pt did receive a dose of Prednisone 50 mg x1 in the ED yesterday evening which would have contributed to the high BSG. * Fasting BSG still elevated this AM. Lantus 60 units x1 ordered this AM and a dose scale based on BSG ordered for HS today. * Novolog parameters tightened based on wt and stress of 3. * Pre-lunch BSG = 262 mg/dl which trended down from 287 mg/dl this AM. Expect BSG to improve later today. PLAN FOR INPATIENT GLYCEMIC CONTROL: * Hold outpatient Victoza SQ * Basal insulin * Lantus 60 units SQ x1 this AM * Lantus 20-40 units scale SQ based on BSG at HS * Bolus insulin: * NovoLog per scale ACHS or Q6hrs while NPO * Goal Range: Low 110 mg/dL - High 140 mg/dL * Correction Factor: 15 mg/dL/unit * Nutritional / Prandial insulin per carb ratio of 1 unit per 5 grams CHO consumed PLAN FOR DISCHARGE: * Patient's A1c = 5.2% today. * However, this result is likely somewhat unreliable in ESRD patients d/t interactions between the A1c analyzing technique and high levels of urea in ESRD, reduced RBC life span, iron deficiency anemia, and EPO administration * If patient is not reporting hypoglycemia at home, recommend continue with home dosing regimen of Tresiba insulin, Victoza and Novolog sliding scale and follow up with outpatient provider.
[2020-10-30] MEDS ORDERED: GLUCAGON FOR INJ 1 MG VIAL ONE (10:44)
[2020-10-30] MEDS ORDERED: BENZOCAIN/TETRACA/BUTAM SPRAY 200 APPLN/20 GM SPRY EXT ONE (11:04)
--- NOTE | 2020-10-30 11:13 | GI REPORT ---
Patient Name: Maurisio Beltran Procedure Date: 10/30/2020 10:25 AM Date of : 1940 Admit Type: Inpatient Age: 80 Gender: Male Attending MD: Annelise Diaz MD Procedure: Small bowel enteroscopy Providers: Annelise Diaz MD Referring MD: Nessa Hanna Do, Philip A. Pilgram, Leonie S. Vachon Indications: Melena, Obscure gastrointestinal bleeding Medicines: Propofol per Anesthesia Complications: No immediate complications. Estimated Blood Loss: Estimated blood loss: none. Procedure: Pre-Anesthesia Assessment: - Prior to the procedure, a History and Physical was performed, and patient medications, allergies and sensitivities were reviewed. The patient's tolerance of previous anesthesia was reviewed. - The risks and benefits of the procedure and the sedation options and risks were discussed with the patient. All questions were answered and informed consent was obtained. - Patient identification and proposed procedure were verified prior to the procedure by the physician and the nurse. The procedure was verified in the procedure room. - Pre-procedure physical examination revealed no contraindications to sedation. After obtaining informed consent, the endoscope was passed under direct vision. Throughout the procedure, the patient's blood pressure, pulse, and oxygen saturations were monitored continuously. The Colonoscope was introduced through the mouth, and advanced to the proximal jejunum. After obtaining informed consent, the endoscope was passed under direct vision. Throughout the procedure, the patient's blood pressure, pulse, and oxygen saturations were monitored continuously.The small bowel enteroscopy was accomplished without difficulty. The patient tolerated the procedure well. Findings: The examined esophagus was normal. The entire examined stomach was normal. There was no evidence of significant pathology in the entire examined duodenum. A single angiodysplastic lesion with bleeding was found in the proximal jejunum. A clipd was placed for marking. Vaporization for hemostasis using argon plasma was successful. For hemostasis, three hemostatic clips were successfully placed (MR conditional). Impression: - Normal esophagus. - Normal stomach. - Normal examined duodenum. - A single bleeding angiodysplastic lesion in the jejunum. Treated with argon plasma coagulation (APC). Clips (MR conditional) were placed. - No specimens collected. Recommendation: - Return patient to hospital [facility] for ongoing care. - Perform a colonoscopy tomorrow. - VCE as OP to check for other AVMs. Annelise Diaz MD 10/30/2020 11:12:31 AM This report has been signed electronically. Note Initiated On: 10/30/2020 10:25 AM Number of Addenda: 0 I attest to the content of the Intraoperative Record and orders documented therein, exceptions below {[id number]}
[2020-10-30] MEDS: HEPARIN 100 UNIT/ML 5ML FLUSH FLUSH PRN (11:18)
--- NOTE | 2020-10-30 12:31 | Anesthesiology Progress Note ---
Date of Service October 30, 2020 Anesthesia Post Procedure Vital Signs Vital Signs: Temp Pulse Pulse Pulse Resp BP BP 10/30/20 11:42 76 18 135/58 L 10/30/20 11:27 77 18 113/64 10/30/20 11:12 78 18 105/55 L 10/30/20 10:16 79 18 10/30/20 09:48 97.9 F 79 16 147/75 H 10/30/20 07:37 70 10/30/20 07:00 97.9 F 72 20 155/68 H 10/30/20 03:58 97.9 F 69 18 10/30/20 02:09 97.9 F 94 H 18 143/84 H 10/30/20 00:57 97.9 F 67 18 129/76 10/30/20 00:55 97.9 F 67 18 129/76 10/30/20 00:29 97.9 F 72 16 135/69 10/30/20 00:14 97.9 F 69 16 135/66 10/29/20 23:56 97.9 F 72 16 122/53 L 10/29/20 23:42 97.5 F L 74 18 10/29/20 21:30 73 19 140/79 10/29/20 21:00 72 13 134/75 10/29/20 20:30 73 15 153/74 H 10/29/20 20:00 78 17 145/98 H 10/29/20 19:30 85 20 155/62 H 10/29/20 19:00 74 13 138/72 10/29/20 18:30 80 20 10/29/20 17:33 81 18 10/29/20 17:07 80 15 10/29/20 16:51 97.7 F 81 20 136/66 BP Pulse Ox 10/30/20 11:42 97 10/30/20 11:27 95 10/30/20 11:12 96 10/30/20 10:16 98 10/30/20 09:48 98 10/30/20 07:37 10/30/20 07:00 95 10/30/20 03:58 142/71 H 95 10/30/20 02:09 94 10/30/20 00:57 94 10/30/20 00:55 94 10/30/20 00:29 95 10/30/20 00:14 95 10/29/20 23:56 95 10/29/20 23:42 140/66 98 10/29/20 21:30 95 10/29/20 21:00 95 10/29/20 20:30 96 10/29/20 20:00 99 10/29/20 19:30 10/29/20 19:00 98 10/29/20 18:30 128/56 L 97 10/29/20 17:33 98 10/29/20 17:07 147/60 H 99 10/29/20 16:51 98 Transfer of Care Handoff Completed per policy Notes Mental Status: alert / awake / arousable and participated in evaluation Patient Amnestic to Procedure: Yes Nausea / Vomiting: adequately controlled Pain: adequately controlled Airway Patency, RR, SpO2: stable & adequate BP & HR: stable & adequate Hydration State: stable & adequate Anesthetic Complications: no major complications apparent and Pt Satisfied with anesthetic care
[2020-10-30 12:50] LABS: Hematocrit (blood only) 30.8 % (42-52); Hemoglobin 9.3 g/dL (14.0-18.0)
[2020-10-30] MEDS ORDERED: Nursing to Pharmacy Communication SCH ×2 (16:00→21:30)
[2020-10-30] MEDS ORDERED: LAVAGE SOLUTION 4000ML PO SCH (17:00)
[2020-10-30 20:21] LABS: Hematocrit (blood only) 30.4 % (42-52); Hemoglobin 9.2 g/dL (14.0-18.0)
[2020-10-30] MEDS: ATORVASTATIN 40 MG TAB PO SCH (22:39)
[2020-10-30] MEDS: INSULIN GLARGINE 100 UNIT/ML VIAL SC SCH (22:58)
[2020-10-31] MEDS: INSULIN ASPART 100 UNITS/ML 3 ML PEN SC SCH ×5 (01:10→21:40)
[2020-10-31] MEDS: PANTOprazole 40 MG in DEXTROSE 5% 100 ML IV SCH ×4 (03:12→21:03)
--- NOTE | 2020-10-31 06:00 | Electrocardiogram Report ---
Test Reason : Blood Pressure : / mmHG Vent. Rate : 088 BPM Atrial Rate : 088 BPM P-R Int : 210 ms QRS Dur : 156 ms QT Int : 436 ms P-R-T Axes : 061 -88 071 degrees QTc Int : 527 ms Atrial-sensed ventricular-paced rhythm with prolonged AV conduction with occasional Premature ventric ular complexes Abnormal ECG When compared with ECG of 10-JUN-2020 04:50, Ventricular pacing is now present Confirmed by Carlyle Quinn ([id number]) on 10/31/2020 5:59:59 AM Referred By: REFERRED SELF Confirmed By:Carlyle Quinn
--- NOTE | 2020-10-31 06:17 | Electrocardiogram Report ---
Test Reason : Blood Pressure : / mmHG Vent. Rate : 070 BPM Atrial Rate : 070 BPM P-R Int : 200 ms QRS Dur : 166 ms QT Int : 494 ms P-R-T Axes : 044 -89 051 degrees QTc Int : 533 ms Atrial-sensed ventricular-paced rhythm Abnormal ECG When compared with ECG of 29-OCT-2020 17:06, Premature ventricular complexes are no longer Present Vent. rate has decreased BY 18 BPM Confirmed by Carlyle Quinn ([id number]) on 10/31/2020 6:16:27 AM Referred By: REFERRED SELF Confirmed By:Carlyle Quinn
[2020-10-31 07:01] LABS: Hematocrit (blood only) 27.8 % (42-52); Hemoglobin 8.5 g/dL (14.0-18.0)
[2020-10-31] MEDS ORDERED: SODIUM CHLORIDE 0.9% 250 ML IV PRN (07:12)
[2020-10-31 07:41] LABS: BUN Creatinine Ratio 15.3 (10-20); Calcium 7.7 mg/dl (8.5-10.1); Creatinine Clr Calc Pharmacy 46.8 ml/min; Est GFR (African American) 49.7 ml/min; Est GFR (Non-African American) 42.9 ml/min; Phosphorus 2.4 mg/dl (2.5-4.9); Potassium 3.2 mmol/L (3.5-5.1)
[2020-10-31] MEDS: ASPIRIN 81 MG ECTAB PO SCH (07:58)
[2020-10-31] MEDS: allopurinoL 300 MG TAB PO SCH (07:58)
[2020-10-31] MEDS: FLUTICASONE PROPIONATE NA SPR 16 GM BTL SCH (07:58)
[2020-10-31] MEDS: FOLIC ACID 1 MG TAB PO SCH (08:00)
[2020-10-31] MEDS: FUROSEMIDE 80 MG TAB PO SCH ×2 (08:37→14:06)
[2020-10-31] MEDS: POTASSIUM CHLORIDE / WTR 10 MEQ/100 ML PLCT IV SCH ×2 (09:30→10:38)
--- NOTE | 2020-10-31 09:43 | Gastroenterology Progress Note ---
Date of Service October 31, 2020 Assessment & Plan (1) Symptomatic anemia: Plan: 80-year-old male with chronic iron deficiency anemia of unclear etiology, on iron treatment, and s/p multiple endoscopies/VCE without obvious GI source, admitted with worsening shortness of breath and weakness, drop in hemoglobin. Patient states he has chronic black stools and this is not new for him. With his drop in HGB, GI consulted to eval anemia and hemoccult + stool. Patient had planned on outpatient scopes however, with him being here in the hospital, we will look to arrange these for him as an inpatient Remain NPO for Colonoscopy today Continue measures per consultatio note yesterday Thank you for allowing us to participate in the care of this patient. Please call with any acute changes, questions or concerns. Please see addendum below with additional recommendation from my supervising physician. Admission and Anticipated Discharge Date Admission Date: October 29, 2020 Supervising Physician Co-Signing Physician Notes I performed a history and physical examination of the patient today, including specifically on physical exam - soft abdomen. I have discussed the patient's management with the advanced practitioner. Please refer to the nurse practitioner's note for the documented findings and plan of care. Subjective Pt was seen and evaluated, chart reviewed No concerns this AM Denies nausea/vomiting Suggests he completed bowel prep and tolerated Notes he is having liquid/yellow stools Denies black/bloody stools to ny NPO for colon Review of Systems Review of Systems: All systems reviewed & are unremarkable except as noted in HPI & below Physical Exam Constitutional: WD/WN, vitals as above Neck: trachea midline, no thyromegaly Respiratory: normal respiratory effort, lungs clear to auscultation Cardiovascular: RRR, no murmur, no edema Gastrointestinal (Abdomen): normal bowel sounds, soft, nontender, no hepatosplenomegaly Skin: no rashes, warm and dry Results & Data ([facility]) Vital Signs (Past 12 Hours) Vital Signs Temp Pulse Pulse Resp BP BP Pulse Ox 10/31/20 08:24 36.8 C 73 16 122/70 95 10/31/20 08:09 36.5 C 78 18 123/65 10/31/20 08:05 36.5 C 78 18 123/65 10/31/20 03:05 36.4 C L 72 18 117/89 97 10/30/20 23:30 36.5 C 64 18 116/61 96 Laboratory Results 10/31/20 10/31/20 10/31/20 Range/Units 08:32 06:49 06:48 Hgb (14.0-18.0) g/dL Hct (42-52) % Sodium (136-145) mmol/L Potassium (3.5-5.1) mmol/L Chloride (98-107) mmol/L Carbon Dioxide (21-32) mmol/L Anion Gap (3-11) BUN (7-18) mg/dl Creatinine (0.6-1.4) mg/dl Est Cr Clr Drug Dosing ml/min Est GFR ( Amer) ml/min Est GFR (Non-Af Amer) ml/min BUN/Creatinine Ratio (10-20) Glucose (70-99) mg/dl POC Glucose 122 H 73 69 L* (70-99) mg/dl Calcium (8.5-10.1) mg/dl Phosphorus (2.5-4.9) mg/dl Magnesium (1.8-2.4) mg/dl Troponin I (0-0.045) ng/ml Blood Type Antibody Screen Crossmatch 10/31/20 10/31/20 10/31/20 Range/Units 06:48 06:48 02:19 Hgb 8.5 L (14.0-18.0) g/dL Hct 27.8 L (42-52) % Sodium 139 (136-145) mmol/L Potassium 3.2 L D (3.5-5.1) mmol/L Chloride 104 (98-107) mmol/L Carbon Dioxide 31 (21-32) mmol/L Anion Gap 4.0 (3-11) BUN 23 H (7-18) mg/dl Creatinine 1.53 H (0.6-1.4) mg/dl Est Cr Clr Drug Dosing 46.8 ml/min Est GFR ( Amer) 49.7 ml/min Est GFR (Non-Af Amer) 42.9 ml/min BUN/Creatinine Ratio 15.3 (10-20) Glucose 74 (70-99) mg/dl POC Glucose 99 (70-99) mg/dl Calcium 7.7 L (8.5-10.1) mg/dl Phosphorus 2.4 L (2.5-4.9) mg/dl Magnesium 2.0 (1.8-2.4) mg/dl Troponin I (0-0.045) ng/ml Blood Type Antibody Screen Crossmatch 10/31/20 10/30/20 10/30/20 Range/Units 00:19 23:58 21:09 Hgb (14.0-18.0) g/dL Hct (42-52) % Sodium (136-145) mmol/L Potassium (3.5-5.1) mmol/L Chloride (98-107) mmol/L Carbon Dioxide (21-32) mmol/L Anion Gap (3-11) BUN (7-18) mg/dl Creatinine (0.6-1.4) mg/dl Est Cr Clr Drug Dosing ml/min Est GFR ( Amer) ml/min Est GFR (Non-Af Amer) ml/min BUN/Creatinine Ratio (10-20) Glucose (70-99) mg/dl POC Glucose 83 59 L* 90 (70-99) mg/dl Calcium (8.5-10.1) mg/dl Phosphorus (2.5-4.9) mg/dl Magnesium (1.8-2.4) mg/dl Troponin I (0-0.045) ng/ml Blood Type Antibody Screen Crossmatch 10/30/20 10/30/20 10/30/20 Range/Units 19:46 16:29 12:28 Hgb 9.2 L (14.0-18.0) g/dL Hct 30.4 L (42-52) % Sodium (136-145) mmol/L Potassium (3.5-5.1) mmol/L Chloride (98-107) mmol/L Carbon Dioxide (21-32) mmol/L Anion Gap (3-11) BUN (7-18) mg/dl Creatinine (0.6-1.4) mg/dl Est Cr Clr Drug Dosing ml/min Est GFR ( Amer) ml/min Est GFR (Non-Af Amer) ml/min BUN/Creatinine Ratio (10-20) Glucose (70-99) mg/dl POC Glucose 285 H 262 H (70-99) mg/dl Calcium (8.5-10.1) mg/dl Phosphorus (2.5-4.9) mg/dl Magnesium (1.8-2.4) mg/dl Troponin I (0-0.045) ng/ml Blood Type Antibody Screen Crossmatch 10/30/20 10/30/20 10/29/20 Range/Units 12:19 12:19 18:04 Hgb 9.3 L (14.0-18.0) g/dL Hct 30.8 L (42-52) % Sodium (136-145) mmol/L Potassium (3.5-5.1) mmol/L Chloride (98-107) mmol/L Carbon Dioxide (21-32) mmol/L Anion Gap (3-11) BUN (7-18) mg/dl Creatinine (0.6-1.4) mg/dl Est Cr Clr Drug Dosing ml/min Est GFR ( Amer) ml/min Est GFR (Non-Af Amer) ml/min BUN/Creatinine Ratio (10-20) Glucose (70-99) mg/dl POC Glucose (70-99) mg/dl Calcium (8.5-10.1) mg/dl Phosphorus (2.5-4.9) mg/dl Magnesium (1.8-2.4) mg/dl Troponin I < 0.015 (0-0.045) ng/ml Blood Type A Positive Antibody Screen NEGATIVE Crossmatch See Detail
--- NOTE | 2020-10-31 10:13 | Electrocardiogram Report ---
Test Reason : Blood Pressure : / mmHG Vent. Rate : 072 BPM Atrial Rate : 072 BPM P-R Int : 212 ms QRS Dur : 170 ms QT Int : 490 ms P-R-T Axes : 066 267 075 degrees QTc Int : 536 ms Atrial-sensed ventricular-paced rhythm with prolonged AV conduction Abnormal ECG When compared with ECG of 30-OCT-2020 05:31, Vent. rate has increased BY 2 BPM Confirmed by Jose Eduardo Parson ([id number]) on 10/31/2020 10:13:32 AM Referred By: REFERRED SELF Confirmed By:Jose Eduardo Parson
--- NOTE | 2020-10-31 11:21 | History & Physical Bridge Note ---
Date of Service October 31, 2020 History & Physical Bridge Note I have examined the patient, reviewed the History & Physical and in the interval since the performance of the History & Physical I have noted the following changes of clinical significance: no changes noted Colonoscopy today Patient was explained in detail regarding risks, benefits, limitations and alternatives of the above endoscopic procedure. Risks of intravenous sedation used for procedure were also explained. Risks include, but not limited to perforation, bleeding, infection, respiratory distress, cardiac arrest and . Patient is also aware about the possibility of missed lesion. Patient's questions were answered. The patient verbalized understanding the information and agreed to undergo the procedure.
[2020-10-31] MEDS ORDERED: ALBUTEROL 0.083% NEBU SOLN 3 ML VIAL NEB STA (11:22)
[2020-10-31] MEDS ORDERED: ATROPINE SULFATE 0.1 MG/ML 10ML SYR IV PRN (11:26)
[2020-10-31] MEDS ORDERED: ePHEDrine sulfate 50 MG/ML AMP IV PRN (11:26)
--- NOTE | 2020-10-31 11:26 | Anesthesiology Consultation ---
Date of Service October 31, 2020 Assessment & Plan Chart Review Chart Review: Acceptable Risk for Surgery and Patient NOT seen in Pre Admission Testing Consults Requested none ASA ASA4 Proposed Anesthesia Anesthesia Type: MAC Risk / Benefits Reviewed With: PT / POA / Parent / Guardian, Accepts Plan and Informed Consent Obtained Additional Comments: covid test neg. History Surgery Operation Date: 10/30/20 17:30 Proposed Procedures p Esophagogastroduodenoscopy Dr Emily Diaz MD Operation Date: 10/31/20 16:30 Proposed Procedures p Colonoscopy Dr Emily Diaz MD Height/Weight Height: 5 ft 4 in Weight: 119.3 kg Allergies Allergy/AdvReac Type Severity Reaction Status Date / Time methylprednisolone AdvReac Severe AMS Verified 10/29/20 18:09 hydromorphone [From Dilaudid] AdvReac Intermediate Nausea Verified 10/29/20 18:09 prednisone AdvReac Mild INCREASE Verified 10/29/20 18:09 BLOOD SUGAR Medications Home Medications Medication Instructions Recorded Confirmed Last Taken atorvastatin 80 mg tablet 80 mg PO QPM 11/13/17 10/29/20 05/28/19 fluticasone propionate 50 2 spray INTRANASAL DAILY 11/13/17 10/29/20 04/19/18 mcg/actuation nasal spray,suspension (Flonase Allergy Relief) insulin degludec 200 unit/mL (3 120 unit SUBCUT QAM 11/13/17 10/29/20 05/28/19 mL) subcutaneous pen (Tresiba FlexTouch U-200 insulin) nitroglycerin 0.4 mg sublingual 0.4 mg SUBLINGUAL UD PRN 11/13/17 10/29/20 Unknown tablet (Nitrostat) etanercept 50 mg/mL (1 mL) 1 dose SUBCUT WK 04/10/18 10/29/20 04/18/18 subcutaneous pen injector (Enbrel SureClick) furosemide 80 mg tablet (Lasix) 80 mg PO QAM 04/20/18 10/29/20 05/28/19 omeprazole 20 mg tablet,delayed 20 mg PO BID #60 tab 10/14/19 10/29/20 Unknown release allopurinol 300 mg tablet 300 mg PO DAILY 06/09/20 10/29/20 Unknown aspirin 81 mg tablet,delayed 81 mg PO DAILY 06/09/20 10/29/20 Unknown release (Aspirin Low Dose) folic acid 1 mg tablet 1 mg PO DAILY 06/09/20 10/29/20 Unknown tramadol 50 mg tablet 50 mg PO Q6H PRN #30 tab 06/12/20 10/29/20 Unknown insulin aspart U-100 100 unit/mL 0 - 60 unit SUBCUT AMPM 10/29/20 10/29/20 Unknown (3 mL) subcutaneous pen (Novolog Flexpen U-100 Insulin aspart) liraglutide 0.6 mg/0.1 mL (18 mg/3 1.8 mg SUBCUT DAILY 10/29/20 10/29/20 Unknown mL) subcutaneous pen injector (RealPage 3-Kei) Active Medications Generic Name Dose Route Start Last Admin Trade Name Freq PRN Reason Stop Dose Admin Allopurinol 300 mg 10/30/20 09:00 10/31/20 07:58 Allopurinol 300 Mg Tab PO 11/29/20 08:59 300 mg DAILY ELMER Administration Aspirin 81 mg 10/30/20 09:00 10/31/20 07:58 Aspirin 81 Mg Ectab PO 11/29/20 08:59 81 mg DAILY ELMER Administration Atorvastatin Calcium 80 mg 10/29/20 23:00 10/30/20 22:39 Atorvastatin 40 Mg Tab PO 11/28/20 22:59 80 mg QPM ELMER Administration Fluticasone Propionate 2 sprays 10/30/20 09:00 10/31/20 07:58 Fluticasone Propionate Na Spr 16 Gm Btl NA 11/29/20 08:59 2 sprays DAILY ELMER Administration Folic Acid 1 mg 10/30/20 09:00 10/31/20 08:00 Folic Acid 1 Mg Tab PO 11/29/20 08:59 1 mg DAILY ELMER Administration Furosemide 80 mg 10/30/20 09:00 10/31/20 08:37 Furosemide 80 Mg Tab PO 11/29/20 08:59 Not Given QAM ELMER Heparin Sodium (Porcine) 5 ml 10/30/20 02:47 10/30/20 11:18 Heparin 100 Unit/Ml 5ml Flush FLUSH 11/29/20 02:46 5 ml PRN PRN Administration Flush Pantoprazole Sodium 40 mg/ 100 mls @ 20 mls/hr 10/29/20 23:15 10/31/20 11:12 Dextrose IV 11/28/20 23:14 0 mg/hr Q5H ELMER 0 mls/hr Infusion 8 MG/HR Insulin Aspart 0 units 10/31/20 00:00 10/31/20 07:10 Insulin Aspart 100 Units/Ml 3 Ml Pen SC 11/28/20 23:14 Not Given Q6 [facility]MER Protocol Insulin Glargine 0 units 10/30/20 21:00 10/30/20 22:58 Insulin Glargine 100 Unit/Ml Vial SC 11/29/20 20:59 Not Given BID [facility] Protocol Miscellaneous 15 - 30 gm 10/29/20 23:15 10/31/20 00:02 Carbohydrates For Hypoglycemia PO 11/28/20 23:14 15 gm UD PRN Administration Hypoglycemia Treatment NPO Date Last Intake of Fluids: 10/30/20 Time Last Intake of Fluids: 23:55 Date Last Intake of Solids: 10/29/20 Time Last Intake of Solids: 23:00 Past Medical History Medical History Anemia Chest pain CHF (congestive heart failure) Chronic obstructive pulmonary disease Diabetes Diabetes mellitus, type 2 Diverticular disease GERD (gastroesophageal reflux disease) History of colon polyps Hyperlipidemia Hypertension Obesity On home oxygen therapy 2L N/C prn SOB Osteoarthritis Prostate cancer radiation seeds Psoriasis Shortness of breath on exertion oxygen 2L n/c prn Sleep apnea cpap--no oxygen Stage 4 chronic kidney disease Exercise / Class Metabolic Activity III < 4 Walking/Shop/Light housework Past Family History Family History Other No family history of adverse response to anesthesia Past Surgical History Surgical History History of cardiac cath had 4 total--last 2015 @ [facility] History of colonoscopy History of esophagogastroduodenoscopy (EGD) History of heart artery stent x6 stents total History of prostate biopsy malignant History of tooth extraction S/P CABG x 3 2008 @ [facility]---follows with Dr. Rolon Status post LASIK surgery of both eyes Past Anesthesia History No Hx of Anesthesia Complications and No Family Hx of Anesthesia Complications History of PONV No Hx of PONV and No Hx of Motion Sickness Social History Smoking Status: Former smoker Hx Alcohol Use: No Hx Substance Use: No substance use type: does not use Physical Exam Vital Signs Last Vital Signs Temp 36.4 C L 10/31/20 11:11 Pulse 72 10/31/20 11:17 Resp 18 10/31/20 11:11 BP 132/68 10/31/20 11:11 Pulse Ox 97 10/31/20 09:55 Constitutional + morbidly obese ENMT Mouth: + dentition abnormality and + edentulous Thyromental Distance: > or= 3.5 Finger Breadths Mallampati Class: III Neck normal visual inspection and trachea midline; neck extension not limited Respiratory + uses accessory muscles Auscultation: + diminished lung sounds and + wheezes Cardiovascular Rate/Rhythm: regular rate and regular rhythm Heart Sounds: no murmur Vessels: no carotid bruit Chest (Breasts) Chest: + pacemaker (left subclav.) and + vascular access device or port (left chest) Musculoskeletal Spine: normal cervical ROM Extremities: extremities normal to inspection Neurologic moves all extremities Motor/Sensory: no sensory deficit Psychiatric Orientation: alert and oriented x 3 Testing Laboratory Results 10/31/20 06:48 10/31/20 06:48 PT 10.2 Seconds (9.0-12.0) 10/29/20 17:15 INR 1.0 (0.9-1.1) 10/29/20 17:15 APTT 30.8 Seconds (21.0-31.0) 10/29/20 17:15 Hemoglobin A1c 5.2 % (4.5-5.6) 10/30/20 05:17 Blood Type A Positive 10/29/20 18:04 Antibody Screen NEGATIVE 10/29/20 18:04 10/31/20 10/31/20 10/31/20 08:32 06:49 06:48 POC Glucose 122 H 73 69 L* 10/31/20 10/31/20 10/30/20 02:19 00:19 23:58 POC Glucose 99 83 59 L*
--- NOTE | 2020-10-31 12:02 | Cardiology Progress Note ---
Date of Service October 31, 2020 Assessment & Plan (1) Symptomatic anemia: (2) Chronic blood loss anemia: (3) Coronary artery disease: (4) Hx of CABG: (5) CHF (congestive heart failure): (6) Chest pain at rest: Plan: Complex 80 year old male admitted with recurrent symptomatic anemia. EKG's reveal a paced rhythm. Troponin negative. Chest x-ray with an acute process within the chest. NT-Pro-B Natriuret Peptide normal at 355 pg/mL. Volume status is compensated via examination. Telemetry thus far has been benign. No significant arrhythmias on recent device interrogation. Risks of further cardiac workup at this time appear to be greater than the benefit. Recommend further evaluation and treatment of the symptomatic anemia. Continue current medical regimen Should he remain hypertensive consideration can be given to addition of amlodipine for blood pressure control. Admission and Anticipated Discharge Date Admission Date: October 29, 2020 Subjective Patient seen and examined, chart reviewed. States he is feeling well today except for continued constipation. Denies chest pain, shortness of breath, palpitations, lightheadedness, dizziness or syncope. Review of Systems Review of Systems: All systems reviewed & are unremarkable except as noted in HPI & below Physical Exam Physical Exam: General: Awake, alert and oriented x 3. No acute distress. HEENT: Normocephalic, atraumatic. Pupils equal, round and reactive to light and accommodation. Extraocular muscles are intact. Anicteric sclera. Moist mucous membranes. Neck: No JVD. No bruit. Cardiovascular: Regular. Positive S-4. Normal S-1 and S-2. No S-3. No murmurs or rubs. Pulmonary: Clear to auscultation B/L. No rales, rhonchi or wheezing Abdomen: Bowel sounds x 4, soft. No rebound, guarding or tenderness. No organomegaly. Extremities: No clubbing, cyanosis or edema. +2 pedal pulses bilaterally. Skin: Warm and dry. Results & Data ([facility]) Vital Signs (Past 12 Hours) Vital Signs Temp Pulse Pulse Pulse Resp BP BP 10/31/20 11:29 67 18 10/31/20 11:19 36.7 C 79 18 162/87 H 10/31/20 11:17 72 10/31/20 11:11 36.4 C L 68 18 132/68 10/31/20 09:55 36.9 C 70 12 132/72 10/31/20 08:24 36.8 C 73 16 122/70 10/31/20 08:09 36.5 C 78 18 123/65 10/31/20 08:05 36.5 C 78 18 123/65 10/31/20 03:05 36.4 C L 72 18 117/89 Pulse Ox 10/31/20 11:29 96 10/31/20 11:19 98 10/31/20 11:17 10/31/20 11:11 10/31/20 09:55 97 10/31/20 08:24 95 10/31/20 08:09 10/31/20 08:05 10/31/20 03:05 97
[2020-10-31] MEDS ORDERED: PROPOFOL IV EMULSION 10 MG/ML 20 ML VIAL IV ONE (12:22)
[2020-10-31] MEDS ORDERED: LIDOCAINE 2% 2 ML VIAL/AMP(20MG/ML) INFIL ONE (12:22)
--- NOTE | 2020-10-31 13:07 | Anesthesiology Progress Note ---
Date of Service October 31, 2020 Anesthesia Post Procedure Vital Signs Vital Signs: Temp Pulse Pulse Pulse Resp BP BP 10/31/20 12:52 70 18 98/64 L 10/31/20 11:29 67 18 10/31/20 11:19 36.7 C 79 18 162/87 H 10/31/20 11:17 72 10/31/20 11:11 36.4 C L 68 18 132/68 10/31/20 09:55 36.9 C 70 12 132/72 10/31/20 08:24 36.8 C 73 16 122/70 10/31/20 08:09 36.5 C 78 18 123/65 10/31/20 08:05 36.5 C 78 18 123/65 10/31/20 03:05 36.4 C L 72 18 117/89 10/30/20 23:30 36.5 C 64 18 116/61 10/30/20 19:23 36.5 C 71 18 119/76 10/30/20 15:51 36.6 C 72 18 129/66 10/30/20 15:00 67 Pulse Ox 10/31/20 12:52 100 10/31/20 11:29 96 10/31/20 11:19 98 10/31/20 11:17 10/31/20 11:11 10/31/20 09:55 97 10/31/20 08:24 95 10/31/20 08:09 10/31/20 08:05 10/31/20 03:05 97 10/30/20 23:30 96 10/30/20 19:23 97 10/30/20 15:51 96 10/30/20 15:00 Transfer of Care Handoff Completed per policy Notes Mental Status: alert / awake / arousable Patient Amnestic to Procedure: Yes Nausea / Vomiting: adequately controlled Pain: adequately controlled Airway Patency, RR, SpO2: stable & adequate BP & HR: stable & adequate Hydration State: stable & adequate Anesthetic Complications: no major complications apparent
[2020-10-31] MEDS: HEPARIN 100 UNIT/ML 5ML FLUSH FLUSH PRN (13:30)
--- NOTE | 2020-10-31 13:48 | GI REPORT ---
Patient Name: Maurisio Beltran Procedure Date: 10/31/2020 12:24 PM Date of : 1940 Admit Type: Inpatient Age: 80 Gender: Male Attending MD: Annelise Diaz MD Procedure: Colonoscopy Providers: Annelise Diaz MD Referring MD: Jeff Mason Md Indications: Melena Medicines: Propofol per Anesthesia Complications: No immediate complications. Estimated Blood Loss: Estimated blood loss: none. Procedure: Pre-Anesthesia Assessment: - Prior to the procedure, a History and Physical was performed, and patient medications, allergies and sensitivities were reviewed. The patient's tolerance of previous anesthesia was reviewed. - The risks and benefits of the procedure and the sedation options and risks were discussed with the patient. All questions were answered and informed consent was obtained. - Patient identification and proposed procedure were verified prior to the procedure by the physician and the nurse. The procedure was verified in the procedure room. - Pre-procedure physical examination revealed no contraindications to sedation. After I obtained informed consent, the scope was passed under direct vision. Throughout the procedure, the patient's blood pressure, pulse, and oxygen saturations were monitored continuously. The scope was introduced through the anus and advanced to the terminal ileum. The colonoscopy was performed without difficulty. The patient tolerated the procedure well. The quality of the bowel preparation was good. The terminal ileum, ileocecal valve, appendiceal orifice, and rectum were photographed. Findings: The perianal and digital rectal examinations were normal. The terminal ileum appeared normal. There was a medium-sized lipoma, in the ascending colon. A 8 mm polyp was found in the transverse colon. The polyp was sessile. The polyp was removed with a cold snare. Resection and retrieval were complete. Verification of patient identification for the specimen was done by the physician and nurse using the patient's name and date. Scattered small and large-mouthed diverticula were found in the entire colon. Non-bleeding internal hemorrhoids were found during retroflexion. The hemorrhoids were small. Impression: - The examined portion of the ileum was normal. - Medium-sized lipoma in the ascending colon. - One 8 mm polyp in the transverse colon, removed with a cold snare. Resected and retrieved. - Diverticulosis in the entire examined colon. - Non-bleeding internal hemorrhoids. Recommendation: - Return patient to [facility] for ongoing care. - Await pathology results. - Repeat colonoscopy in 3 years for surveillance. Annelise Diaz MD 10/31/2020 1:48:13 PM This report has been signed electronically. Note Initiated On: 10/31/2020 12:24 PM Number of Addenda: 0 I attest to the content of the Intraoperative Record and orders documented therein, exceptions below {[id number]}
--- NOTE | 2020-10-31 14:07 | Hospitalist Progress Note ---
Date of Service October 31, 2020 Assessment & Plan (1) Symptomatic anemia: (2) Chest pain at rest: Plan: This is a 80-year-old male who presents with shortness of breath. 1. Shortness of breath, secondary to symptomatic anemia - history of diastolic congestive heart failure, history of chronic obstructive pulmonary disease. No obvious wheezing on exam. Transfused 1 unit of PRBC on admission, current Hgb 8.5 (10/31 AM) -will transfuse 1 more unit of blood His Hemoccult was positive in ER. Closely monitor in the med-telemetry. 2. Symptomatic anemia, acute on chronic blood loss anemia, iron-deficiency anemia, had multiple EGDs and colonoscopies. Currently on IV iron infusions. His Hemoccult was positive in the Emergency Room. Continue Protonix drip, transfused 1 unit of PRBC on admission. Cont. to monitor H&H Gastroenterology consulted, patient underwent EGD (10/30/2020) Impression: - Normal esophagus. - Normal stomach. - Normal examined duodenum. - A single bleeding angiodysplastic lesion in the jejunum. Treated with argon plasma coagulation (APC). Clips (MR conditional) were placed. - No specimens collected. Recommendation: - [facility]. - Perform a colonoscopy tomorrow. - VCE as OP to check for other AVMs. S/p colonoscopy (10/31/20) Impression: - The examined portion of the ileum was normal. - Medium-sized lipoma in the ascending colon. - One 8 mm polyp in the transverse colon, removed with a cold snare. Resected and retrieved. - Diverticulosis in the entire examined colon. - Non-bleeding internal hemorrhoids. Recommendation: - Return patient to [facility] for ongoing care. - Await pathology results. - Repeat colonoscopy in 3 years for surveillance. Continue monitor H&H today, goal hemoglobin above 9, likely discharge tomorrow if stable 3. chest pain. He gets on and off chest pain; he says when his blood count drops down, he gets palpitation and chest pain.Currently asymptomatic. Initial workup is negative, consulted cardiology for further recommendation- believe symptoms are secondary to symptomatic anemia, continue aspirin uninterrupted, and keep hemoglobin > 9 4. History of chronic diastolic congestive heart failure. Continue his home diuretics. Monitor for any volume overload. 5. History of obstructive sleep apnea. Continue his CPAP at bedtime. 6. History of high-grade atrioventricular conduction block, status post pacemaker. 7. Morbid obesity. Needs counseling. 8. Henning's esophagus with dysplasia, on proton pump inhibitor. 9. Chronic kidney disease stage IV, baseline creatinine around 2, currently Cr 1.76, we will follow the laboratories. 10. CAD, s/p coronary artery bypass grafting, status post stents. Continue on aspirin, and statin. 11. History of diabetes. He is on high-dose of Tresiba insulin, we will hold. Currently n.p.o. We will place him on insulin sliding scale and Lantus and consult with glycemic pharmacy consult. 12. Hypertension. Currently on only diuretics. We will monitor the blood pressure. 13. History of gout, on allopurinol. 14. History of psoriasis and psoriatic arthropathy, on Enbrel weekly. 15. Occasional dysphagia. Await GI inputs DVT prophylaxis: sequential compression devices. DISPOSITION: Closely monitor in the [employer] tele. PT/OT prior to discharge. Code: Full Admission and Anticipated Discharge Date Admission Date: October 29, 2020 Subjective Patient seen in follow-up of symptomatic anemia, chest pain Patient received 1 unit of PRBCs on admission, and underwent EGD with hemostasis yesterday This morning hemoglobin 8.5, ordered 1 unit of blood Now status post colonoscopy today Currently sitting in the chair, in no acute distress Currently denies any chest pain shortness of breath dizziness Monitor H&H Review of Systems Review of Systems: All systems reviewed & are unremarkable except as noted in Subjective Physical Exam Physical Exam: GENERAL: morbidly obese F, in NAD HEENT: NC/AT, EOMI, PERRL, Oral mucosa moist. NECK: No JVD, no neck masses. CARDIOVASCULAR: S1 and S2 heard, regular rate and rhythm. No murmur, no gallop. RESPIRATORY: Normal AP diameter. No accessory muscle use. minimal exp. wheezing noted, no crackles. ABDOMEN: Soft, bowel sounds present, nontender, no distention. NEURO: Alert oriented, answers questions appropriately, no facial asymmetry, speech fluent, moves extremities EXTREMITIES: Mild pedal edema present, no erythema seen. Results & Data Results & Data ([facility]) Vital Signs (Past 12 Hours) Vital Signs Temp Pulse Pulse Pulse Resp BP BP 10/31/20 13:22 67 18 127/51 L 10/31/20 13:07 76 18 120/69 10/31/20 12:52 70 18 98/64 L 10/31/20 11:29 67 18 10/31/20 11:19 36.7 C 79 18 162/87 H 10/31/20 11:17 72 10/31/20 11:11 36.4 C L 68 18 132/68 10/31/20 09:55 36.9 C 70 12 132/72 10/31/20 08:24 36.8 C 73 16 122/70 10/31/20 08:09 36.5 C 78 18 123/65 10/31/20 08:05 36.5 C 78 18 123/65 10/31/20 03:05 36.4 C L 72 18 117/89 Pulse Ox 10/31/20 13:22 99 10/31/20 13:07 100 10/31/20 12:52 100 10/31/20 11:29 96 10/31/20 11:19 98 10/31/20 11:17 10/31/20 11:11 10/31/20 09:55 97 10/31/20 08:24 95 10/31/20 08:09 10/31/20 08:05 10/31/20 03:05 97 Laboratory Results 10/31/20 10/31/20 10/31/20 Range/Units 08:32 06:49 06:48 Hgb (14.0-18.0) g/dL Hct (42-52) % Sodium (136-145) mmol/L Potassium (3.5-5.1) mmol/L Chloride (98-107) mmol/L Carbon Dioxide (21-32) mmol/L Anion Gap (3-11) BUN (7-18) mg/dl Creatinine (0.6-1.4) mg/dl Est Cr Clr Drug Dosing ml/min Est GFR ( Amer) ml/min Est GFR (Non-Af Amer) ml/min BUN/Creatinine Ratio (10-20) Glucose (70-99) mg/dl POC Glucose 122 H 73 69 L* (70-99) mg/dl Calcium (8.5-10.1) mg/dl Phosphorus (2.5-4.9) mg/dl Magnesium (1.8-2.4) mg/dl Blood Type Antibody Screen Crossmatch 10/31/20 10/31/2010/31/21 Range/Units 06:48 06:48 02:19 Hgb 8.5 L (14.0-18.0) g/dL Hct 27.8 L (42-52) % Sodium 139 (136-145) mmol/L Potassium 3.2 L D (3.5-5.1) mmol/L Chloride 104 (98-107) mmol/L Carbon Dioxide 31 (21-32) mmol/L Anion Gap 4.0 (3-11) BUN 23 H (7-18) mg/dl Creatinine 1.53 H (0.6-1.4) mg/dl Est Cr Clr Drug Dosing 46.8 ml/min Est GFR ( Amer) 49.7 ml/min Est GFR (Non-Af Amer) 42.9 ml/min BUN/Creatinine Ratio 15.3 (10-20) Glucose 74 (70-99) mg/dl POC Glucose 99 (70-99) mg/dl Calcium 7.7 L (8.5-10.1) mg/dl Phosphorus 2.4 L (2.5-4.9) mg/dl Magnesium 2.0 (1.8-2.4) mg/dl Blood Type Antibody Screen Crossmatch 10/31/20 10/30/20 10/30/20 Range/Units 00:19 23:58 21:09 Hgb (14.0-18.0) g/dL Hct (42-52) % Sodium (136-145) mmol/L Potassium (3.5-5.1) mmol/L Chloride (98-107) mmol/L Carbon Dioxide (21-32) mmol/L Anion Gap (3-11) BUN (7-18) mg/dl Creatinine (0.6-1.4) mg/dl Est Cr Clr Drug Dosing ml/min Est GFR ( Amer) ml/min Est GFR (Non-Af Amer) ml/min BUN/Creatinine Ratio (10-20) Glucose (70-99) mg/dl POC Glucose 83 59 L* 90 (70-99) mg/dl Calcium (8.5-10.1) mg/dl Phosphorus (2.5-4.9) mg/dl Magnesium (1.8-2.4) mg/dl Blood Type Antibody Screen Crossmatch 10/30/20 10/30/2021 Range/Units 19:46 16:29 18:04 Hgb 9.2 L (14.0-18.0) g/dL Hct 30.4 L (42-52) % Sodium (136-145) mmol/L Potassium (3.5-5.1) mmol/L Chloride (98-107) mmol/L Carbon Dioxide (21-32) mmol/L Anion Gap (3-11) BUN (7-18) mg/dl Creatinine (0.6-1.4) mg/dl Est Cr Clr Drug Dosing ml/min Est GFR ( Amer) ml/min Est GFR (Non-Af Amer) ml/min BUN/Creatinine Ratio (10-20) Glucose (70-99) mg/dl POC Glucose 285 H (70-99) mg/dl Calcium (8.5-10.1) mg/dl Phosphorus (2.5-4.9) mg/dl Magnesium (1.8-2.4) mg/dl Blood Type A Positive Antibody Screen NEGATIVE Crossmatch See Detail Medications Administered Current Inpatient Medications Acetaminophen (Acetaminophen 325 Mg Tab) 650 mg PO Q4H PRN PRN Reason: Pain or Fever Stop: 11/28/20 22:30 Allopurinol (Allopurinol 300 Mg Tab) 300 mg PO DAILY [facility] Stop: 11/29/20 08:59 Last Admin: 10/31/20 07:58 Dose: 300 mg Documented by: Aspirin (Aspirin 81 Mg Ectab) 81 mg PO DAILY [facility] Stop: 11/29/20 08:59 Last Admin: 10/31/20 07:58 Dose: 81 mg Documented by: Atorvastatin Calcium (Atorvastatin 40 Mg Tab) 80 mg PO QPM [facility] Stop: 11/28/20 22:59 Last Admin: 10/30/20 22:39 Dose: 80 mg Documented by: Atropine Sulfate (Atropine Sulfate 0.1 Mg/Ml 10ml Syr) 0.5 mg IV Q1M PRN PRN Reason: PACU Use-HR<40 &/or Bradycardi Stop: 10/31/20 19:26 Dextrose (Dextrose 50% 50 Ml Syringe) 25 - 50 ml IV UD PRN; Protocol PRN Reason: Hypoglycemia Protocol Stop: 11/28/20 23:14 Ephedrine Sulfate (Ephedrine Sulfate 50 Mg/Ml Amp) 5 mg IV Q5M PRN PRN Reason: PACU Use Only-SBP<90 mmHg Stop: 10/31/20 19:26 Fluticasone Propionate (Fluticasone Propionate Na Spr 16 Gm Btl) 2 sprays NA DAILY [facility] Stop: 11/29/20 08:59 Last Admin: 10/31/20 07:58 Dose: 2 sprays Documented by: Folic Acid (Folic Acid 1 Mg Tab) 1 mg PO DAILY [facility] Stop: 11/29/20 08:59 Last Admin: 10/31/20 08:00 Dose: 1 mg Documented by: Furosemide (Furosemide 80 Mg Tab) 80 mg PO QAM [facility] Stop: 11/29/20 08:59 Last Admin: 10/31/20 08:37 Dose: Not Given Documented by: Glucagon (Glucagon For Inj 1 Mg Vial) 1 mg IM UD PRN; Protocol PRN Reason: Hypoglycemia Protocol Stop: 11/28/20 23:14 Glucose (Glucose 40% Gel 15 Gm Tube) 15 - 30 gm PO UD PRN; Protocol PRN Reason: Hypoglycemia Protocol Stop: 11/28/20 23:14 Glucose (Glucose 10 Tabs/Tube) 4 - 8 tabs PO UD PRN; Protocol PRN Reason: Hypoglycemia Protocol Stop: 11/28/20 23:14 Heparin Sodium (Porcine) (Heparin 100 Unit/Ml 5ml Flush) 5 ml FLUSH PRN PRN PRN Reason: Flush Stop: 11/29/20 02:46 Last Admin: 10/31/20 13:30 Dose: 5 ml Documented by: Pantoprazole Sodium 40 mg/ (Dextrose) 100 mls @ 20 mls/hr IV Q5H [facility] Stop: 11/28/20 23:14 Last Infusion: 10/31/20 14:05 Dose: 8 mg/hr, 20 mls/hr Documented by: Sodium Chloride (Nss) 250 mls @ 15 mls/hr IV .[id number] PRN PRN Reason: For Transfusion Stop: 10/31/20 17:12 Insulin Aspart (Insulin Aspart 100 Units/Ml 3 Ml Pen) 0 units SC Q6 [facility]; Protocol Stop: 11/28/20 23:14 Last Admin: 10/31/20 14:04 Dose: Not Given Documented by: Insulin Glargine (Insulin Glargine 100 Unit/Ml Vial) 0 units SC BID [facility]; Protocol Stop: 11/29/20 20:59 Last Admin: 10/30/20 22:58 Dose: Not Given Documented by: Levalbuterol HCl (Levalbuterol Hcl 1.25 Mg/3 Ml Neb) 1.25 mg NEB Q4R PRN PRN Reason: Shortness Of Breath Or Wheezing Stop: 11/28/20 22:30 Miscellaneous (Carbohydrates For Hypoglycemia ) 15 - 30 gm PO UD PRN PRN Reason: Hypoglycemia Treatment Stop: 11/28/20 23:14 Last Admin: 10/31/20 00:02 Dose: 15 gm Documented by: Miscellaneous Information (Pharmacy Glycemic Mgmt Consult) 1 ea N/A UD PRN PRN Reason: Consult Stop: 11/28/20 22:30 Nitroglycerin (Nitroglycerin Sl 0.4 Mg/Tab Tab) 0.4 mg SL UD PRN PRN Reason: Chest Pain Stop: 11/28/20 22:30 Nitroglycerin (Nitroglycerin Sl 0.4 Mg/Tab Tab) 0.4 mg SL UD PRN PRN Reason: Chest Pain Stop: 11/28/20 22:30 Ondansetron HCl (Ondansetron Inj 2 Mg/Ml 2 Ml Vial) 4 mg IV Q6H PRN PRN Reason: Nausea Stop: 11/28/20 22:30 Polyethylene Glycol (Polyethylene (Miralax) 17 Gm Pack) 17 gm PO DAILY PRN PRN Reason: Constipation Stop: 11/28/20 22:30 Tramadol HCl (Tramadol Hcl 50 Mg Tablet) 50 mg PO Q6H PRN PRN Reason: pain Stop: 11/28/20 22:30
[2020-10-31] MEDS ORDERED: DOCUSATE SODIUM 100 MG CAP PO PRN (15:04)
--- NOTE | 2020-10-31 15:42 | Pharmacy Report ---
Pharmacy Glycemic Short Note 2 - Date of Service October 31, 2020 - Glycemic Short BSG Results (Last 24 hours): 10/30/20 10/30/20 10/30/20 16:29 21:09 23:58 Glucose POC Glucose 285 H 90 59 L* 10/31/20 10/31/20 10/31/20 00:19 02:19 06:48 Glucose 74 POC Glucose 83 99 10/31/20 10/31/20 10/31/20 06:48 06:49 08:32 Glucose POC Glucose 69 L* 73 122 H 10/31/20 14:11 Glucose POC Glucose 91 OUTPATIENT ANTIDIABETIC REGIMEN: * Tresiba 120 units SQ QAM * Victoza 1.8 mg SQ daily * Novolog insulin SS ASSESSMENT: 10/31: * Patient recieved 111 units of insulin yesterday: 60 units Lantus and 51 units novolog * Thus far today, patient has been administered no insulin and all BSGs have been below goal. Of note, he experienced hypoglycemia around midnight and 07 00. Patient has been NPO for colonoscopy. He will start clear liquids with dinner. * I will add a conservative basal insulin scale for bedtime (based on previous admission use) and loosen novolog CF and CR 10/30: * 80 y/o M admitted for SOB. Patient with history of CKD-stage 4, anemia and Type 2 diabetes. Patient managed at home on three antidiabetic meds including basal Tresiba and Novolog insulins. * Holding home Victoza while admitted since this is non-formulary. Will continue basal/ bolus insulin for glycemic control as in-patient. * On admission patient had a high BSG of 251 which trended down to 146 at HS then up again to 290 over night. Pt did receive a dose of Prednisone 50 mg x1 in the ED yesterday evening which would have contributed to the high BSG. * Fasting BSG still elevated this AM. Lantus 60 units x1 ordered this AM and a dose scale based on BSG ordered for HS today. * Novolog parameters tightened based on wt and stress of 3. * Pre-lunch BSG = 262 mg/dl which trended down from 287 mg/dl this AM. Expect BSG to improve later today. PLAN FOR INPATIENT GLYCEMIC CONTROL: * Hold outpatient Victoza SQ * Basal insulin - decrease * Lantus 10-15-20 units per scale SQ BID * Bolus insulin: - decrease * NovoLog per scale ACHS or Q6hrs while NPO * Goal Range: Low 110 mg/dL - High 140 mg/dL * Correction Factor: 25 mg/dL/unit * Nutritional / Prandial insulin per carb ratio of 1 unit per 8 grams CHO consumed PLAN FOR DISCHARGE: * Patient's A1c = 5.2% today. * However, this result is likely somewhat unreliable in ESRD patients d/t interactions between the A1c analyzing technique and high levels of urea in ESRD, reduced RBC life span, iron deficiency anemia, and EPO administration * If patient is not reporting hypoglycemia at home, recommend continue with home dosing regimen of Tresiba insulin, Victoza and Novolog sliding scale and follow up with outpatient provider.
[2020-10-31 15:51] LABS: Hematocrit (blood only) 32.1 % (42-52); Hemoglobin 9.9 g/dL (14.0-18.0)
[2020-10-31 16:37] LABS: BUN Creatinine Ratio 13.2 (10-20); Calcium 7.9 mg/dl (8.5-10.1); Creatinine Clr Calc Pharmacy 48.1 ml/min; Est GFR (African American) 51.4 ml/min; Est GFR (Non-African American) 44.3 ml/min; Magnesium 2.1 mg/dl (1.8-2.4); Phosphorus 2.1 mg/dl (2.5-4.9); Potassium 3.7 mmol/L (3.5-5.1)
[2020-10-31] MEDS: ATORVASTATIN 40 MG TAB PO SCH (21:06)
[2020-10-31 21:39] LABS: Hematocrit (blood only) 33.3 % (42-52); Hemoglobin 10.1 g/dL (14.0-18.0)
[2020-10-31] MEDS: INSULIN GLARGINE 100 UNIT/ML VIAL SC SCH (21:40)
[2020-11-01] MEDS: PANTOprazole 40 MG in DEXTROSE 5% 100 ML IV SCH ×3 (01:30→11:30)
[2020-11-01 07:24] LABS: Hematocrit (blood only) 32.9 % (42-52); Hemoglobin 10.1 g/dL (14.0-18.0)
[2020-11-01 07:44] LABS: BUN Creatinine Ratio 10.9 (10-20); Calcium 8.1 mg/dl (8.5-10.1); Creatinine Clr Calc Pharmacy 42.3 ml/min; Est GFR (African American) 44.1 ml/min; Est GFR (Non-African American) 38.1 ml/min; Magnesium 2.1 mg/dl (1.8-2.4); Potassium 3.7 mmol/L (3.5-5.1)
[2020-11-01 07:52] LABS: Phosphorus 2.7 mg/dl (2.5-4.9)
[2020-11-01] MEDS: FOLIC ACID 1 MG TAB PO SCH (07:57)
[2020-11-01] MEDS: ASPIRIN 81 MG ECTAB PO SCH (07:57)
[2020-11-01] MEDS: allopurinoL 300 MG TAB PO SCH (07:57)
[2020-11-01] MEDS: FUROSEMIDE 80 MG TAB PO SCH (07:57)
[2020-11-01] MEDS: INSULIN ASPART 100 UNITS/ML 3 ML PEN SC SCH ×4 (07:58→21:19)
[2020-11-01] MEDS: FLUTICASONE PROPIONATE NA SPR 16 GM BTL SCH (07:58)
[2020-11-01] MEDS ORDERED: INSULIN GLARGINE 100 UNIT/ML VIAL SC SCH ×2 (09:00→11:30)
--- NOTE | 2020-11-01 09:15 | Pharmacy Report ---
Pharmacy Glycemic Short Note 2 - Date of Service November 01, 2020 - Glycemic Short BSG Results (Last 24 hours): 10/31/20 10/31/20 10/31/20 14:11 15:22 16:38 Glucose 100 H POC Glucose 91 137 H 10/31/20 11/01/20 11/01/20 20:05 02:01 06:48 Glucose 154 H POC Glucose 254 H 110 H 11/01/20 07:56 Glucose POC Glucose 167 H OUTPATIENT ANTIDIABETIC REGIMEN: * Tresiba 120 units SQ QAM * Victoza 1.8 mg SQ daily * Novolog insulin SS ASSESSMENT: 11/01 * Pt has received 30 units of insulin over the past 24hrs * 20 units of basal with Lantus * 10 units of bolus with NovoLog * No more hypoglycemia with large dose reduction in Lantus yesterday. LOW BSG secondary to large outpatient doses of basal insulin. 50% of outpatient basal insulin dose given when NPO but still too much. * Concern for rebound hyperglycemia today since diet advanced- will increase/titrate basal insulin dosing conservatively. 10/31: * Patient recieved 111 units of insulin yesterday: 60 units Lantus and 51 units novolog * Thus far today, patient has been administered no insulin and all BSGs have been below goal. Of note, he experienced hypoglycemia around midnight and 0700. Patient has been NPO for colonoscopy. He will start clear liquids with dinner. * I will add a conservative basal insulin scale for bedtime (based on previous admission use) and loosen novolog CF and CR 10/30: * 80 y/o M admitted for SOB. Patient with history of CKD-stage 4, anemia and Type 2 diabetes. Patient managed at home on three antidiabetic meds including basal Tresiba and Novolog insulins. * Holding home Victoza while admitted since this is non-formulary. Will continue basal/ bolus insulin for glycemic control as in-patient. * On admission patient had a high BSG of 251 which trended down to 146 at HS then up again to 290 over night. Pt did receive a dose of Prednisone 50 mg x1 in the ED yesterday evening which would have contributed to the high BSG. * Fasting BSG still elevated this AM. Lantus 60 units x1 ordered this AM and a dose scale based on BSG ordered for HS today. * Novolog parameters tightened based on wt and stress of 3. * Pre-lunch BSG = 262 mg/dl which trended down from 287 mg/dl this AM. Expect BSG to improve later today. PLAN FOR INPATIENT GLYCEMIC CONTROL: * Hold outpatient Victoza SQ * Basal insulin * Lantus 20 units x 1 dose this morning then 15-20 units with lunch. Try to get back to QAM dosing schedule of basal insulin to prep for dc. * Bolus insulin: * NovoLog per scale ACHS or Q6hrs while NPO * Goal Range: Low 110 mg/dL - High 140 mg/dL * Correction Factor: 25 mg/dL/unit * Nutritional / Prandial insulin per carb ratio of 1 unit per 7 grams CHO consumed PLAN FOR DISCHARGE: * Patient's A1c = 5.2% today. * However, this result is likely somewhat unreliable in ESRD patients d/t interactions between the A1c analyzing technique and high levels of urea in ESRD, reduced RBC life span, iron deficiency anemia, and EPO administration * If patient is not reporting hypoglycemia at home, recommend continue with home dosing regimen of Tresiba insulin, Victoza and Novolog sliding scale and follow up with outpatient provider.
--- NOTE | 2020-11-01 18:12 | Hospitalist Progress Note ---
Date of Service November 01, 2020 Assessment & Plan (1) Symptomatic anemia: (2) Chest pain at rest: Plan: Patient is a 80 yr male who presents with shortness of breath. Symptomatic anemia Acute on chronic blood loss anemia Iron deficiency anemia H/O diastolic congestive heart failure, COPD--? could have contributed as well S/P 2 unit PRBC S/P Colonoscopy: Medium-sized lipoma in the ascending colon. One 8 mm polyp in the transverse colon, removed with a cold snare. Resected and retrieved. Diverticulosis in the entire examined colon. Non-bleeding internal hemorrhoids. S/P EGD:Normal esophagus. Normal stomach. Normal examined duodenum. A single bleeding angiodysplastic lesion in the jejunum. Treated with argon plasma coagulation (APC). Clips (MR conditional) were placed. No specimens collected. Positive FOBT Currently on IV iron infusions. IV Protonix drip Appreciate GI input Continue to monitor H&H Needs follow-up with GI upon discharge Transition to p.o. Protonix upon discharge Plan for Video Capsule Endoscopy for other AVMs. Needs repeat colonoscopy in 3 years for surveillance. Chest pain. No chest pain currently workup is negative Appreciate Cardiology Input Continue Aspirin History of chronic diastolic congestive heart failure. Continue his home diuretics Monitor volume overload. Obstructive sleep apnea Continue CPAP at bedtime H/O high-grade atrioventricular conduction block S/P Pacemaker Morbid obesity BMI 44 Henning's esophagus with dysplasia On proton pump inhibitor CKD IV Baseline Cr ~ 2 Cr: 1.69 Monitor renal function CAD s/p coronary artery bypass grafting, status post stents Continue on aspirin, statin DM II On high-dose of Tresiba insulin Hold home regimen Continue Insulin Glycemic pharmacy consult. Hypertension Continue current meds Gout On Allopurinol. H/O Psoriasis and psoriatic arthropathy on Enbrel weekly. Occasional dysphagia No current issues DVT Px: SCDs Re: GI bleed Code Status : Full Code Admission and Anticipated Discharge Date Admission Date: October 29, 2020 Subjective Patient is seen and examined bedside States feeling well today Denies any recurrence of bleeding issues Dyspnea on exertion slowly improving Denies chest pain, dizziness, nausea, abdominal pain Discussed with gastroenterology today Offers no other complaints Review of Systems Review of Systems: All systems reviewed & are unremarkable except as noted in Subjective Physical Exam Physical Exam: Physical Exam: Vitals signs as noted above General Appearance:Obese, no apparent distress Head: normocephalic, Atraumatic Eyes: normal inspection, EOMI Neck: supple, Trachea midline Respiratory/Chest: Normal breath sounds, CTA, No accessory muscle use Cardiovascular: S1, S2, No murmur Abdomen/GI:Soft, Non tender, Bowel sounds present Extremities/Musculoskeletal:normal inspection, 1+ B/L LE edema Neurologic/Psych:AAOX3, grossly no focal neurological deficits Skin: normal color, warm Results & Data Results & Data ([facility]) Vital Signs (Past 12 Hours) Vital Signs Temp Pulse Pulse Resp BP Pulse Ox 11/01/20 16:30 69 11/01/20 16:14 36.9 C 64 19 117/53 L 97 11/01/20 11:16 36.5 C 63 19 158/77 H 98 11/01/20 08:06 37.2 C 66 19 120/65 93 11/01/20 07:33 64 Laboratory Results Short CBC 10/31/20 11/01/20 Range/Units 21:17 06:48 Hgb 10.1 L 10.1 L (14.0-18.0) g/dL Hct 33.3 L 32.9 L (42-52) % BMP 11/01/20 06:48 Sodium 137 Potassium 3.7 Chloride 102 Carbon Dioxide 30 BUN 18 Creatinine 1.69 H Glucose 154 H Calcium 8.1 L
[2020-11-01] MEDS: ATORVASTATIN 40 MG TAB PO SCH (21:12)
[2020-11-01] MEDS: PANTOprazole 40 MG in SYRINGE 0 ML IV SCH (21:13)
[2020-11-02 07:55] VITALS: TEMP 98.1; O2SAT 96
[2020-11-02] MEDS: allopurinoL 300 MG TAB PO SCH (08:05)
[2020-11-02] MEDS: FOLIC ACID 1 MG TAB PO SCH (08:05)
[2020-11-02] MEDS: FUROSEMIDE 80 MG TAB PO SCH (08:05)
[2020-11-02] MEDS: ASPIRIN 81 MG ECTAB PO SCH (08:05)
[2020-11-02] MEDS: FLUTICASONE PROPIONATE NA SPR 16 GM BTL SCH (08:06)
[2020-11-02] MEDS: PANTOprazole 40 MG in SYRINGE 0 ML IV SCH ×2 (08:08→08:14)
[2020-11-02] MEDS: INSULIN ASPART 100 UNITS/ML 3 ML PEN SC SCH ×2 (08:08→12:44)
[2020-11-02] MEDS ORDERED: INSULIN GLARGINE 100 UNIT/ML VIAL SC SCH (09:00)
[2020-11-02 09:38] LABS: Hematocrit (blood only) 34.3 % (42-52); Hemoglobin 10.4 g/dL (14.0-18.0)
[2020-11-02 09:57] LABS: Calcium 8.1 mg/dl (8.5-10.1); Creatinine Clr Calc Pharmacy 40.3 ml/min; Est GFR (African American) 41.7 ml/min; Potassium 3.9 mmol/L (3.5-5.1)
--- NOTE | 2020-11-02 09:58 | Pharmacy Report ---
Pharmacy Glycemic Short Note 2 - Date of Service November 02, 2020 - Glycemic Short BSG Results (Last 24 hours): 11/01/20 11/01/20 11/01/20 11:04 16:33 20:53 POC Glucose 135 H 130 H 142 H 11/01/20 11/02/20 23:19 07:31 POC Glucose 146 H 96 OUTPATIENT ANTIDIABETIC REGIMEN: * Tresiba 120 units SQ QAM * Victoza 1.8 mg SQ daily * Novolog insulin SS ASSESSMENT: 11/02 * Pt has received 58 units of insulin over the past 24hrs * 35 units of basal with Lantus * 23 units of bolus with NovoLog * BSGs in goal range with insulin adjustments yesterday * AM fasting BSG is lightly below goal range at 96mg/dl. Will lower basal insulin dosing slightly. Keep Q24hr basal insulin dosing for easier transition to outpatient Q24hr AM dosing. * No changes needed to prandial insulin coverage 11/01 * Pt has received 30 units of insulin over the past 24hrs * 20 units of basal with Lantus * 10 units of bolus with NovoLog * No more hypoglycemia with large dose reduction in Lantus yesterday. LOW BSG secondary to large outpatient doses of basal insulin. 50% of outpatient basal insulin dose given when NPO but still too much. * Concern for rebound hyperglycemia today since diet advanced- will increase/titrate basal insulin dosing conservatively. 10/31: * Patient recieved 111 units of insulin yesterday: 60 units Lantus and 51 units novolog * Thus far today, patient has been administered no insulin and all BSGs have been below goal. Of note, he experienced hypoglycemia around midnight and 0700. Patient has been NPO for colonoscopy. He will start clear liquids with dinner. * I will add a conservative basal insulin scale for bedtime (based on previous admission use) and loosen novolog CF and CR 10/30: * 80 y/o M admitted for SOB. Patient with history of CKD-stage 4, anemia and Type 2 diabetes. Patient managed at home on three antidiabetic meds including basal Tresiba and Novolog insulins. * Holding home Victoza while admitted since this is non-formulary. Will continue basal/ bolus insulin for glycemic control as in-patient. * On admission patient had a high BSG of 251 which trended down to 146 at HS then up again to 290 over night. Pt did receive a dose of Prednisone 50 mg x1 in the ED yesterday evening which would have contributed to the high BSG. * Fasting BSG still elevated this AM. Lantus 60 units x1 ordered this AM and a dose scale based on BSG ordered for HS today. * Novolog parameters tightened based on wt and stress of 3. * Pre-lunch BSG = 262 mg/dl which trended down from 287 mg/dl this AM. Expect BSG to improve later today. PLAN FOR INPATIENT GLYCEMIC CONTROL: * Hold outpatient Victoza SQ * Basal insulin * Lantus 30-35 units SQ am - dose based on fasting BSG * Bolus insulin: * NovoLog per scale ACHS or Q6hrs while NPO * Goal Range: Low 110 mg/dL - High 140 mg/dL * Correction Factor: 20 mg/dL/unit * Nutritional / Prandial insulin per carb ratio of 1 unit per 7 grams CHO consumed PLAN FOR DISCHARGE: * Patient's A1c = 5.2% today. * However, this result is likely somewhat unreliable in ESRD patients d/t interactions between the A1c analyzing technique and high levels of urea in ESRD, reduced RBC life span, iron deficiency anemia, and EPO administration * If patient is not reporting hypoglycemia at home, recommend continue with home dosing regimen of Tresiba insulin, Victoza and Novolog sliding scale and follow up with outpatient provider.
[2020-11-02 11:05] VITALS: BP 142/71; PULSE 79
--- NOTE | 2020-11-02 12:23 | Hospitalist Progress Note ---
Date of Service November 02, 2020 Assessment & Plan (1) Symptomatic anemia: (2) Chest pain at rest: Plan: Patient is a 80 yr male who presents with shortness of breath. Symptomatic anemia Acute on chronic blood loss anemia Iron deficiency anemia H/O diastolic congestive heart failure, COPD--? could have contributed as well S/P 2 unit PRBC S/P Colonoscopy: Medium-sized lipoma in the ascending colon. One 8 mm polyp in the transverse colon, removed with a cold snare. Resected and retrieved. Diverticulosis in the entire examined colon. Non-bleeding internal hemorrhoids. S/P EGD:Normal esophagus. Normal stomach. Normal examined duodenum. A single bleeding angiodysplastic lesion in the jejunum. Treated with argon plasma coagulation (APC). Clips (MR conditional) were placed. No specimens collected. Positive FOBT Currently on IV iron infusions. IV Protonix drip>> Transitioned to PO Appreciate GI input Continue to monitor H&H Needs follow-up with GI upon discharge Plan for Video Capsule Endoscopy for other AVMs as outpatient Needs repeat colonoscopy in 3 years for surveillance. No recurrence of bleeding Advised to follow-up with GI upon discharge Chest pain. No chest pain currently workup is negative Appreciate Cardiology Input Continue Aspirin Resolved History of chronic diastolic congestive heart failure. Continue his home diuretics Monitor volume overload. Obstructive sleep apnea Continue CPAP at bedtime H/O high-grade atrioventricular conduction block S/P Pacemaker Morbid obesity BMI 44 Henning's esophagus with dysplasia On proton pump inhibitor CKD IV Baseline Cr ~ 2 Cr: 1.69>1.77 Monitor renal function CAD s/p coronary artery bypass grafting, status post stents Continue on aspirin, statin DM II On high-dose of Tresiba insulin Hold home regimen Continue Insulin Glycemic pharmacy consult. Hypertension Continue current meds Gout On Allopurinol. H/O Psoriasis and psoriatic arthropathy on Enbrel weekly. Occasional dysphagia No current issues DVT Px: SCDs Re: GI bleed Code Status : Full Code Disposition Plan to discharge home today Admission and Anticipated Discharge Date Admission Date: October 29, 2020 Subjective Patient is seen and examined bedside No recurrence of bleeding Eager to get discharged Dyspnea on exertion resolved Denies chest pain, dizziness, nausea, abdominal pain Review of Systems Review of Systems: All systems reviewed & are unremarkable except as noted in Subjective Physical Exam Physical Exam: Physical Exam: Vitals signs as noted above General Appearance:Obese, no apparent distress Head: normocephalic, Atraumatic Eyes: normal inspection, EOMI Neck: supple, Trachea midline Respiratory/Chest: Normal breath sounds, CTA, No accessory muscle use Cardiovascular: S1, S2, No murmur Abdomen/GI:Soft, Non tender, Bowel sounds present Extremities/Musculoskeletal:normal inspection, 1+ B/L LE edema Neurologic/Psych:AAOX3, grossly no focal neurological deficits Skin: normal color, warm Results & Data Results & Data ([facility]) Vital Signs (Past 12 Hours) Vital Signs Temp Pulse Pulse Pulse Pulse Resp BP 11/02/20 11:02 36.7 C 79 69 65 19 128/65 11/02/20 07:55 36.7 C 65 19 128/65 11/02/20 06:25 70 11/02/20 03:49 36.5 C 69 20 131/72 BP Pulse Ox 11/02/20 11:02 142/71 H 96 11/02/20 07:55 96 11/02/20 06:25 11/02/20 03:49 97 Laboratory Results Short CBC 11/02/20 Range/Units 09:27 Hgb 10.4 L (14.0-18.0) g/dL Hct 34.3 L (42-52) % BMP 11/02/20 09:27 Sodium 138 Potassium 3.9 Chloride 104 Carbon Dioxide 29 BUN 21 H Creatinine 1.77 H Glucose 154 H Calcium 8.1 L
--- NOTE | 2020-11-02 17:02 | Discharge Summary ---
Date of Service November 02, 2020 Admission HPI Per Admitting Provider CHIEF COMPLAINT: Shortness of breath. HISTORY OF PRESENT ILLNESS: This is a 80-year-old male with past medical history significant for type 2 diabetes, chronic respiratory failure, on 2 liters of oxygen, sleep apnea, CPAP at bedtime with oxygen, hyperlipidemia, gout, history of COPD, pulmonary hypertension, chronic diastolic CHF, CAD status post stent, status post CABG, Henning's esophagus with dysplasia, chronic kidney disease stage IV, BPH, generalized osteoarthritis, chronic anemia due to chronic blood loss, iron deficiency, psoriasis, psoriatic arthropathy who presents with shortness of breath, and anemia. The patient lives with his family, walks without any support, but the patient says lately he is getting short of breath on walking short distances and is getting palpitations. His oxygen saturations remaining okay. On and off, he is getting some chest pain on the left side of chest. He says whenever his hemoglobin goes down, he is having chest pains. He is having iron infusions now and also he is getting frequent blood transfusions, but his hemoglobin level is not coming up much. Today in the ER, his Hemoccult was positive. He had multiple EGDs and colonoscopies, and also he says he is scheduled for another colonoscopy in November. Currently sitting in chair comfortably. Currently has no chest pain. Was feeling dizzy earlier. He has chronic neck pain. No headache. He has some chronic eye problems, chronic runny nose. Has some sore throat. Appetite is okay. Sometimes gets difficulty swallowing for both solids and liquids. No fevers, no nausea, no abdominal discomfort. Normal bladder movements. No hematuria. Has some swelling in the legs. Admission Exam Per Admitting Provider PHYSICAL EXAMINATION: GENERAL: The patient is morbidly obese, not in acute distress. VITAL SIGNS: Temperature 36.5, pulse 78, respiratory rate 17, blood pressure 148/98, oxygen 99% on room air. HEENT: Pupils equal, round and reactive to light. Oral mucosa moist. NECK: No JVD, no neck masses. CARDIOVASCULAR: S1 and S2 heard, regular rate and rhythm. No murmur, no gallop. RESPIRATORY SYSTEM: Normal AP diameter. No accessory muscle use. No wheezing, no crackles. ABDOMEN: Soft, bowel sounds present, nontender, no distention. CENTRAL NERVOUS SYSTEM: Cranial nerves II-XII grossly intact, nonfocal. EXTREMITIES: Mild pedal edema present, no erythema seen. Principal Diagnosis Acute blood loss anemia, upper GI bleed Symptomatic anemia - shortness of breath, chest pain-secondary to above Discharge Data Allergies Allergy/AdvReac Type Severity Reaction Status Date / Time methylprednisolone AdvReac Severe AMS Verified 10/29/20 18:09 hydromorphone [From Dilaudid] AdvReac Intermediate Nausea Verified 10/29/20 18:09 prednisone AdvReac Mild INCREASE Verified 10/29/20 18:09 BLOOD SUGAR Consultations 10/29/20 19:13 ED Decision to Admit Stat 10/30/20 08:00 Consult Cardiology Routine Consult Gastroenterology Routine Procedures Performed Operation Date: 10/30/20 17:30 Actual Procedures p EGD Hemostasis - Annelise Diaz MD Operation Date: 10/31/20 16:30 Actual Procedures p Colonoscopy Polypectomy - Annelise Diaz MD Hospital Course (1) Symptomatic anemia: (2) Chest pain at rest: Patient is a 80 yr male who presents with shortness of breath. Symptomatic anemia Acute on chronic blood loss anemia Iron deficiency anemia H/O diastolic congestive heart failure, COPD--? could have contributed as well S/P 2 unit PRBC S/P Colonoscopy: Medium-sized lipoma in the ascending colon. One 8 mm polyp in the transverse colon, removed with a cold snare. Resected and retrieved. Diverticulosis in the entire examined colon. Non-bleeding internal hemorrhoids. S/P EGD:Normal esophagus. Normal stomach. Normal examined duodenum. A single bleeding angiodysplastic lesion in the jejunum. Treated with argon plasma coagulation (APC). Clips (MR conditional) were placed. No specimens collected. Positive FOBT Currently on IV iron infusions. IV Protonix drip>> Transitioned to PO Appreciate GI input Continue to monitor H&H Needs follow-up with GI upon discharge Plan for Video Capsule Endoscopy for other AVMs as outpatient Needs repeat colonoscopy in 3 years for surveillance. No recurrence of bleeding Advised to follow-up with GI upon discharge Chest pain. No chest pain currently workup is negative Appreciate Cardiology Input Continue Aspirin Resolved History of chronic diastolic congestive heart failure. Continue his home diuretics Monitor volume overload. Obstructive sleep apnea Continue CPAP at bedtime H/O high-grade atrioventricular conduction block S/P Pacemaker Morbid obesity BMI 44 Henning's esophagus with dysplasia On proton pump inhibitor CKD IV Baseline Cr ~ 2 Cr: 1.69>1.77 Monitor renal function CAD s/p coronary artery bypass grafting, status post stents Continue on aspirin, statin DM II On high-dose of Tresiba insulin Hold home regimen Continue Insulin Glycemic pharmacy consult. Hypertension Continue current meds Gout On Allopurinol. H/O Psoriasis and psoriatic arthropathy on Enbrel weekly. Occasional dysphagia No current issues DVT Px: SCDs Re: GI bleed Code Status : Full Code Disposition Plan to discharge home today Total Time Total Time Spent Total Time Spent (In Minutes): 41 minutes Discharge Plan Discharge Items Patient Disposition: Home - Self-Care Reason For Visit: SOB Discharge Diagnosis: Acute blood loss anemia, upper GI bleed Symptomatic anemia - shortness of breath, chest pain-secondary to above Activity: Per Instructions section Exercise/Sports: Wait until after follow-up appointment Non-emergency contact: Primary Care Provider and Combine Driver Call non-emergency contact if: you have any medication questions, your symptoms worsen, your pain is concerning for you and you have a fever Follow-up/Referrals: Levy Stout MD [Primary Care Provider] - (Date & Time 11/06/2020 3:00 PM Provider Alissa Drew PA-C Department Family Medicine [facility] ) Diet: Carb Consistent or DM2 and Low Fiber Addtl Attending Provider Instructions: Follow-up with your primary care physician on 11/06/2020 3:00 PM Follow-up with 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 Your special education preschool teacher recommends repeat colonoscopy in 3 years for surveillance Do not take group of medications belonging to NSAIDs group -can cause worsening your Gastrointestinal bleeding. List Of these medications includes but not limited to: Diclofenac Ibuprofen, Motrin, Advil Toradol,ketorolac Naproxen, Aleve, Naprosyn You can take Tylenol as needed for pain or fever When buying [id number] pain medications please consult with pharmacy if you are not sure regarding ingredients, as a lot of the pain medications have combination of NSAIDs and Tylenol. Seek immediate medical attention if your symptoms reoccur or worsen Please take all medications as instructed on discharge list below. Please call if you have any questions or problems. You can reach a [facility] hospitalist on duty at [facility] 24 hours a day by calling [phone] Pending Studies at Discharge: No Stand-Alone Forms: [facility] Health, Smoking Cessation Medications and DC Order Prescriptions: Continued Enbrel SureClick 50 mg/mL (0.98 mL) Pen Injector 1 dose subcut WK RF: 0 furosemide [Lasix] 80 mg Tablet 80 mg PO QAM RF: 0 Tresiba FlexTouch U-200 200 unit/mL (3 mL) Insulin Pen 120 unit SUBCUT QAM RF: 0 atorvastatin 80 mg Tablet 80 mg PO QPM RF: 0 nitroglycerin [Nitrostat] 0.4 mg Tablet, Sublingual 0.4 mg Sublingual UD PRN (Reason: Chest Pain) RF: 0 fluticasone propionate [Flonase Allergy Relief] 50 mcg/actuation [place],Suspension 2 spray INTRANASAL DAILY RF: 0 omeprazole 20 mg Tablet,Delayed Release (Dr/Ec) 20 mg PO BID Qty: 60 RF: 1 aspirin [Aspirin Low Dose] 81 mg Tablet,Delayed Release (Dr/Ec) 81 mg PO DAILY RF: 0 folic acid 1 mg tablet 1 mg PO DAILY RF: 0 allopurinol 300 mg tablet 300 mg PO DAILY RF: 0 tramadol 50 mg Tablet 50 mg PO Q6H PRN (Reason: pain) Qty: 30 RF: 0 insulin aspart U-100 [Novolog Flexpen U-100 Insulin] 100 unit/mL (3 mL) insulin pen 0 - 60 unit SUBCUT AMPM RF: 0 Victoza 3-Kei 0.6 mg/0.1 mL (18 mg/3 mL) pen injector 1.8 mg SUBCUT DAILY RF: 0 Discharge Orders: Discharge Order (Routine); Ordered 11/02/20 Ordered By: Mauro Smart Admission Data Admit Date/Time: 10/29/20 20:36 Attending Provider: Mauro Smart Admit Provider: Harsh Peterson Primary Care Provider: Levy Stout Other Providers: Harsh Peterson ; Dwaine Rolon ; Ga Arevalo ; Nhan Gomes ; Gareth Pimentel ; Guevara Tobias ; Blair Hannah ; Karin Zhou ; Ariella Rosenberg ; Kristen Harp ; Ovidio Sagastume ; River Negron Other Interventions: Discharge Summary Assessment (RN) Last Done: 11/02/20 12:50
[2020-11-03] MEDS ORDERED: INSULIN GLARGINE 100 UNIT/ML VIAL SC SCH (09:00)
--- NOTE | 2020-11-10 07:55 | Coding Query ---
CODING QUERY To promote full compliance with coding requirements relating to patient care, provider participation is requested in all cases of certified coder uncertainty. Please assist us with the question(s) below: Coding Question(s): Pt admitted with acute /chronic GI bleed. small bowel endoscopy revealed single bleeding angiodysplastic lesion of jejunum /APC/clip application. Please document, if known or suspected, the etiology of the GI bleed. Thanks for your help! Cedric Davies [facility] Physician's Response(s): acute /chronic GI bleed secondary to bleeding angiodysplastic lesion of jejunum Principal Diagnosis: "that condition established after study, to be chiefly responsible for occasioning the admission of the patient to the hospital for care." Co-Existing Principal Diagnosis: "when two or more diagnoses equally meet the criteria for principal diagnosis as determined by the circumstances of admission, diagnostic work up, and/or therapy provided, and the Alphabetic Index, Tabular List, or another coding guideline does not provide sequencing direction, any one of the diagnoses may be sequenced first." "When the physician has documented what appears to be a current diagnosis in the body of the record, but has not included the diagnosis in the final diagnostic statement, the physician should be asked whether the diagnosis should be added." (Source Coding [facility] 2 QTR90. p3-4) HARIKA
== END 2020-11-02 12:50 | disposition home or self-care (01) | DRG 378 ==
LOC: ED 16:40 → 2W 20:36 → SUATTDRO 20:36 → 2W 21:59

== ENCOUNTER 2020-12-14 14:53 | Inpatient (IN) ==
--- NOTE | 2020-12-14 15:16 | Emergency Department Note ---
History of Present Illness General Chief complaint: Chest Pain Stated complaint: CHEST PAIN Time Seen by Provider: 12/14/20 15:04 Source: patient History of Present Illness Provider complaint: Chest pain Onset (ago): hour(s) Location: chest and left Radiation: non-radiation Pain Consistency: + intermittent and + now resolved Maximum Pain Intensity: 4 Quality: + dull Exacerbated By: + other (Exertion) Associated symptoms: + chest pain and + shortness of breath; no cough, no fever/chills or no nausea/vomiting This is a 80-year-old male with a history of GI bleed requiring transfusions presenting with chest pain starting at 8 AM this morning. The patient states that last night he fell onto grass and twisted his left ankle. He has had pain in that ankle since and has been having trouble getting around. This has caused him to exert himself more when he tries to get around and he has developed chest pain with this this morning at 8. He states just going to the bathroom gives him chest pain. He describes the pain is dull. Is located on the left side of his chest. It is worse with exertion. He states it is currently resolved. It is associated with some shortness of breath. He denies any fever or cough or cold symptoms, abdominal pain, vomiting or diarrhea or urinary symptoms. He does state that he has black stools because he is on iron. He denies any bloody stools. He last had a transfusion last Tuesday for symptomatic anemia. He is going to have his hemoglobin rechecked tomorrow. Home Medications Medication Instructions Recorded Confirmed Type atorvastatin 80 mg tablet 80 mg PO QPM 11/13/17 12/14/20 History fluticasone propionate 50 2 spray INTRANASAL DAILY 11/13/17 12/14/20 History mcg/actuation nasal spray,suspension (Flonase Allergy Relief) insulin degludec 200 unit/mL (3 120 unit SUBCUT QAM 11/13/17 12/14/20 History mL) subcutaneous pen (Tresiba FlexTouch U-200 insulin) nitroglycerin 0.4 mg sublingual 0.4 mg SUBLINGUAL UD PRN 11/13/17 12/14/20 History tablet (Nitrostat) etanercept 50 mg/mL (1 mL) 1 dose SUBCUT WK 04/10/18 12/14/20 History subcutaneous pen injector (Enbrel SureClick) furosemide 80 mg tablet (Lasix) 80 mg PO QAM 04/20/18 12/14/20 History omeprazole 20 mg tablet,delayed 20 mg PO BID #60 tab 10/14/19 12/14/20 Rx release allopurinol 300 mg tablet 300 mg PO DAILY 06/09/20 12/14/20 History aspirin 81 mg tablet,delayed 81 mg PO DAILY 06/09/20 12/14/20 History release (Aspirin Low Dose) folic acid 1 mg tablet 1 mg PO DAILY 06/09/20 12/14/20 History insulin aspart U-100 100 unit/mL 30 unit SUBCUT TIDM 10/29/20 12/14/20 History (3 mL) subcutaneous pen (Novolog Flexpen U-100 Insulin aspart) liraglutide 0.6 mg/0.1 mL (18 mg/3 1.8 mg SUBCUT QAM 10/29/20 12/14/20 History mL) subcutaneous pen injector ([employer] 3-Kei) Allergies Allergy/AdvReac Type Severity Reaction Status Date / Time methylprednisolone AdvReac Severe AMS Verified 12/14/20 17:03 hydromorphone [From Dilaudid] AdvReac Mild Nausea Verified 12/14/20 17:03 prednisone AdvReac Mild INCREASE Verified 12/14/20 17:03 BLOOD SUGAR Past Med/Surg History Medical History (Updated 12/14/20 @ 21:21 by Gareth Wilburn MD) Anemia RECENT HOSPITALIZATION +BLOOD TRANFUSIONS Chronic diastolic CHF (congestive heart failure) Chronic obstructive pulmonary disease CKD (chronic kidney disease), stage IV Diabetes mellitus, type 2 Diverticular disease GERD (gastroesophageal reflux disease) History of colon polyps History of prostate cancer radiation seeds Hx of gout Hyperlipidemia Hypertension IDDM (insulin dependent diabetes mellitus) Obesity On home oxygen therapy 2L N/C AT HS WITH CPAP Osteoarthritis Pacemaker Psoriasis Sleep apnea CPAP WITH O2 AT 2L Surgical History History of cardiac cath had 4 total--last 2015 @ [facility] History of colonoscopy History of esophagogastroduodenoscopy (EGD) History of heart artery stent x6 stents total History of prostate biopsy malignant History of tooth extraction S/P CABG x 3 2008 @ [facility]---follows with Dr. 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 and A total of 10 systems reviewed and were otherwise negative Physical Exam Vital Signs Vital Signs - 24 hr 12/14/20 15:07 12/14/20 15:12 12/14/20 15:14 Temperature 36.5 C Temperature Source Oral Pulse Rate 74 75 77 Pulse Rate from SpO2 Sensor 75 Pulse Rhythm Regular Regular Pulse Strength Normal Respiratory Rate 18 20 18 Respiratory Effort / Characteristics Non-Labored Respiratory Depth Normal Respiratory Pattern Regular Blood Pressure 155/63 H Blood Pressure Mean 93 Blood Pressure Position Lying Pulse Oximetry 97 96 97 Oxygen Delivery Method Room Air Room Air Room Air Sepsis Recent Fever Within 48 Hours No Sepsis New/Unexplained Change in Mental Status No Sepsis Action Taken by Nursing No Action Required 12/14/20 15:15 12/14/20 15:30 12/14/20 15:45 Temperature Temperature Source Pulse Rate 78 80 74 Pulse Rate from SpO2 Sensor 76 Pulse Rhythm Pulse Strength Respiratory Rate 13 19 16 Respiratory Effort / Characteristics Respiratory Depth Respiratory Pattern Blood Pressure Blood Pressure Mean Blood Pressure Position Pulse Oximetry 96 Oxygen Delivery Method Sepsis Recent Fever Within 48 Hours Sepsis New/Unexplained Change in Mental Status Sepsis Action Taken by Nursing 12/14/20 16:00 Temperature Temperature Source Pulse Rate 76 Pulse Rate from SpO2 Sensor Pulse Rhythm Pulse Strength Respiratory Rate 20 Respiratory Effort / Characteristics Respiratory Depth Respiratory Pattern Blood Pressure Blood Pressure Mean Blood Pressure Position Pulse Oximetry Oxygen Delivery Method Sepsis Recent Fever Within 48 Hours Sepsis New/Unexplained Change in Mental Status Sepsis Action Taken by Nursing Constitutional: Vital signs reviewed. Eyes: Pupils are equal round reactive to light. Conjunctiva are noninjected. ENT: Pharynx is clear without erythema or exudate. Mucous membranes are moist. Neck supple without meningeal signs. Respiratory: Clear to auscultation bilaterally. Breath sounds are equal bilaterally. Cardiovascular: Regular rate and rhythm. No rubs or gallops. GI: Soft, nondistended and nontender. Bowel sounds are present. Musculoskeletal: Bimalleolar tenderness to the left ankle with some mild tenderness to the proximal fibula. No tenderness to the left foot including the base of the fifth metatarsal. Neurovascular intact distally. Integumentary: No cyanosis. or jaundice. Neurological: The patient is awake and alert. No focal deficits. Psychiatric: Normal affect. Not anxious appearing. Course Administered Medications Acetaminophen (Acetaminophen 325 Mg Tab) 650 mg PO Q4H PRN PRN Reason: Pain or Fever Stop: 01/13/21 19:12 Last Admin: 12/14/20 21:16 Dose: 650 mg Documented by: [id number] Atorvastatin Calcium (Atorvastatin 40 Mg Tab) 80 mg PO QPM ELMER Stop: 01/13/21 20:59 Last Admin: 12/14/20 21:16 Dose: 80 mg Documented by: [id number] Miscellaneous (Carbohydrates For Hypoglycemia ) 15 - 30 gm PO UD PRN PRN Reason: Hypoglycemia Treatment Stop: 01/13/21 17:14 Last Admin: 12/14/20 19:39 Dose: 15 gm Documented by: [id number] Admin: 12/14/20 19:15 Dose: 15 gm Documented by: [id number] Pantoprazole Sodium (Pantoprazole 40 Mg Tab) 40 mg PO BID ELMER Stop: 01/13/21 20:59 Last Admin: 12/14/20 21:16 Dose: 40 mg Documented by: [id number] Medical Decision Making Differential Diagnosis Acute GI bleed, symptomatic anemia, unstable angina, NC, ankle fracture Medical Records Attestation: I reviewed the patient's medical records. I did perform a limited focused review of portions of the patient's old chart on the electronic medical record. The patient was admitted in October for upper GI bleed and symptomatic anemia. He had a colonoscopy in October which showed diverticulosis and nonbleeding hemorrhoids. He also had a polyp. He did have a EGD on November 14 which showed:"Two large inlet patches. Short segment Henning's. Patchy antral gastritis. AVM, cauterized and clipped." Home Medications Current Medication List: was personally reviewed by me Laboratory Data Attestation: I reviewed the patient's lab results. Result diagrams: 12/14/20 15:00 12/14/20 15:00 Lab Results 12/14/20 12/14/20 12/14/20 Range/Units 15:00 15:00 15:20 WBC 11.42 H (4.8-10.8) K/uL RBC 3.51 L (4.7-6.1) M/uL Hgb 9.8 L (14.0-18.0) g/dL Hct 32.0 L (42-52) % MCV 91.2 (80-100) fL MCH 27.9 (25-34) pg MCHC 30.6 L (32-36) g/dL RDW Std Deviation 61.5 H (36.4-46.3) fL RDW Coeff of Joey 18.9 H (11.5-14.5) % Plt Count 297 (130-400) K/uL MPV 9.0 (7.4-10.4) fL Immature Gran % (Auto) 0.4 % Neut % (Auto) 80.0 % Lymph % (Auto) 12.0 % [place] % (Auto) 3.8 % Eos % (Auto) 3.5 % Baso % (Auto) 0.3 % Neut # (Auto) 9.14 H (1.4-6.5) K/uL Lymph # (Auto) 1.37 (1.2-3.4) K/uL [place] # (Auto) 0.43 (0.11-0.59) K/uL Eos # (Auto) 0.40 (0-0.5) K/uL Baso # (Auto) 0.03 (0-0.2) K/uL Immature Gran # (Auto) 0.05 H (0.00-0.02) K/uL Sodium 140 (136-145) mmol/L Potassium 3.7 (3.5-5.1) mmol/L Chloride 102 (98-107) mmol/L Carbon Dioxide 27 (21-32) mmol/L Anion Gap 11.0 (3-11) BUN 30 H (7-18) mg/dl Creatinine 1.74 H (0.6-1.4) mg/dl Est Cr Clr Drug Dosing 40.8 ml/min Est GFR ( Amer) 42.6 ml/min Est GFR (Non-Af Amer) 36.7 ml/min BUN/Creatinine Ratio 17.1 (10-20) Glucose 78 (70-99) mg/dl Calcium 8.9 (8.5-10.1) mg/dl Total Bilirubin 0.4 (0.2-1) mg/dl AST 14 L (15-37) U/L ALT 22 (12-78) U/L Alkaline Phosphatase 163 H (45-117) U/L Troponin I < 0.015 (0-0.045) ng/ml Total Protein 7.2 (6.4-8.2) gm/dl Albumin 2.9 L (3.4-5.0) gm/dl Globulin 4.3 H (2.5-4.0) gm/dl Albumin/Globulin Ratio 0.7 L (0.9-2) Lipase 179 (73-393) U/L COVID-19 Eval Order Covid19 at [facility] SARS-CoV-2 (PCR) (Negative) Blood Type Antibody Screen 12/14/20 12/14/20 Range/Units 15:20 15:21 WBC (4.8-10.8) K/uL RBC (4.7-6.1) M/uL Hgb (14.0-18.0) g/dL Hct (42-52) % MCV (80-100) fL MCH (25-34) pg MCHC (32-36) g/dL RDW Std Deviation (36.4-46.3) fL RDW Coeff of Joey (11.5-14.5) % Plt Count (130-400) K/uL MPV (7.4-10.4) fL Immature Gran % (Auto) % Neut % (Auto) % Lymph % (Auto) % [place] % (Auto) % Eos % (Auto) % Baso % (Auto) % Neut # (Auto) (1.4-6.5) K/uL Lymph # (Auto) (1.2-3.4) K/uL [place] # (Auto) (0.11-0.59) K/uL Eos # (Auto) (0-0.5) K/uL Baso # (Auto) (0-0.2) K/uL Immature Gran # (Auto) (0.00-0.02) K/uL Sodium (136-145) mmol/L Potassium (3.5-5.1) mmol/L Chloride (98-107) mmol/L Carbon Dioxide (21-32) mmol/L Anion Gap (3-11) BUN (7-18) mg/dl Creatinine (0.6-1.4) mg/dl Est Cr Clr Drug Dosing ml/min Est GFR ( Amer) ml/min Est GFR (Non-Af Amer) ml/min BUN/Creatinine Ratio (10-20) Glucose (70-99) mg/dl Calcium (8.5-10.1) mg/dl Total Bilirubin (0.2-1) mg/dl AST (15-37) U/L ALT (12-78) U/L Alkaline Phosphatase (45-117) U/L Troponin I (0-0.045) ng/ml Total Protein (6.4-8.2) gm/dl Albumin (3.4-5.0) gm/dl Globulin (2.5-4.0) gm/dl Albumin/Globulin Ratio (0.9-2) Lipase (73-393) U/L COVID-19 Eval Order SARS-CoV-2 (PCR) NEGATIVE (Negative) Blood Type A Positive Antibody Screen NEGATIVE Imaging Data Radiologist's Impression: Ankle X-Ray 12/14/20 15:12 XR ankle LT min 3V routine, XR tibia fibula LT 2V CLINICAL HISTORY: fall eval for fx TECHNIQUE: 3 views of the left ankle were obtained. 2 views of the left tibia and fibula were obtained. Comparison: None available at the time of this dictation. FINDINGS: No acute fractures are present. The alignment is anatomic. Bony mineralization is within normal limits. The ankle mortise is intact. The talar dome is smooth. There is no ankle effusion. Soft tissue swelling is seen about the ankle. IMPRESSION: Soft tissue swelling about the ankle without acute abnormality. ACT 112: Negative or not required by law. Electronically signed by: Madhav Hare M.D. 12/14/2020 3:51 PM Chest X-Ray 12/14/20 15:12 XR chest 1V portable CLINICAL HISTORY: Atypical chest pain TECHNIQUE: Single frontal radiograph of the chest was obtained. Comparison: Comparison is made to chest one view 10/29/2020 FINDINGS: Median sternotomy wires and implanted pacemaker unchanged. Stable port catheter. The cardiomediastinal silhouette is normal. The lungs are clear. No evidence of pleural effusion or pneumothorax. IMPRESSION: No acute chest disease. ACT 112: Negative or not required by law. Electronically signed by: Madhav Hare M.D. 12/14/2020 3:49 PM Tibia/Fibula X-Ray 12/14/20 15:12 XR ankle LT min 3V routine, XR tibia fibula LT 2V CLINICAL HISTORY: fall eval for fx TECHNIQUE: 3 views of the left ankle were obtained. 2 views of the left tibia and fibula were obtained. Comparison: None available at the time of this dictation. FINDINGS: No acute fractures are present. The alignment is anatomic. Bony mineralization is within normal limits. The ankle mortise is intact. The talar dome is smooth. There is no ankle effusion. Soft tissue swelling is seen about the ankle. IMPRESSION: Soft tissue swelling about the ankle without acute abnormality. ACT 112: Negative or not required by law. Electronically signed by: Madhav Hare M.D. 12/14/2020 3:51 PM ECG Data Attestation: I personally reviewed and interpreted this ECG as follows: Indication: + chest pain Rate (beats per minute): 74 Rhythm: + other (Atrial sensed ventricular paced rhythm) ECG ST segments: no T-wave inversions ECG Findings: no PVCs Comparison ECG Date: from (October 31, 2020) Change: no significant change MDM Narrative I did evaluate the patient as noted above. The patient is presenting with exertional chest pain today as well as a left ankle injury. He states that walking to the bathroom is giving him chest pain. He has had a history of GI bleed and has had transfusions in the past. He does take a baby aspirin daily and took 1 today. IV access was established. I did place an order for continuous cardiac monitoring. The monitor showed a paced rhythm at a rate of 70 bpm. I did order and personally review the patient's 12-lead EKG as described above. He has a paced rhythm. I did order and personally reviewed the images of the patient's chest, left tib-fib and ankle x-rays as described above. There is no evidence of active disease in the chest. There is no evidence of fracture or dislocation of the ankle or tib-fib. The patient was placed in a gel splint. I did order and review the patient's blood work as noted in the electronic medical record. CBC demonstrates white count of 11.42. His hemoglobin is 9.8. Platelet count is within normal limits. Electrolytes are unremarkable. Creatinine is at baseline at 1.74. Troponin is negative. I did order a type and screen. He does not require transfusion at this time. He will be hospitalized for further care and evaluation. Covid screening test is negative. I did discuss case with the hospitalist and vocational case manager. Impression & Plan Chest pain, exertional, Left ankle sprain, Chronic kidney disease, Anemia Discharge Plan Visit Data Chief Complaint: Chest Pain Stated Complaint: CHEST PAIN ED Provider: Gareth Wilburn Discharge Problem: Chest pain, exertional, Left ankle sprain, Chronic kidney disease, Anemia Patient Disposition: Admitted As Inpatient Discharge Instructions Interventions: ED Discharge Assessment Last Done: 12/14/20 18:34
[2020-12-14 15:20] LABS: Basophils # (auto) 0.03 K/uL (0-0.2); Basophils % (auto) 0.3 %; Eosinophils % (auto) 3.5 %; Hemoglobin 9.8 g/dL (14.0-18.0); Immature Granulocytes # (auto) 0.05 K/uL (0.00-0.02); Immature Granulocytes % (auto) 0.4 %; Lymphocytes # (auto) 1.37 K/uL (1.2-3.4); Mean Corpuscular Hemoglobin 27.9 pg (25-34); Mean Corpuscular Hgb Conc 30.6 g/dL (32-36); Mean Corpuscular Volume 91.2 fL (80-100); Monocytes # (auto) 0.43 K/uL (0.11-0.59); Monocytes % (auto) 3.8 %; Neutrophils # (auto) 9.14 K/uL (1.4-6.5); Platelet Count 297 K/uL (130-400); RDW Coefficient of Variation 18.9 % (11.5-14.5); RDW Standard Deviation 61.5 fL (36.4-46.3); Red Blood Count 3.51 M/uL (4.7-6.1); White Blood Count 11.42 K/uL (4.8-10.8)
[2020-12-14 15:43] LABS: Alanine Aminotransferase 22 U/L (12-78); Albumin Level 2.9 gm/dl (3.4-5.0); Aspartate Aminotransferase 14 U/L (15-37); BUN Creatinine Ratio 17.1 (10-20); Blood Urea Nitrogen 30 mg/dl (7-18); Calcium 8.9 mg/dl (8.5-10.1); Carbon Dioxide 27 mmol/L (21-32); Chloride 102 mmol/L (98-107); Creatinine Clr Calc Pharmacy 40.8 ml/min; Est GFR (African American) 42.6 ml/min; Est GFR (Non-African American) 36.7 ml/min; Glucose 78 mg/dl (70-99); Lipase 179 U/L (73-393); Potassium 3.7 mmol/L (3.5-5.1); Sodium 140 mmol/L (136-145)
[2020-12-14 15:47] LABS: Albumin Globulin Ratio 0.7 (0.9-2); Alkaline Phosphatase 163 U/L (45-117); Bilirubin,Total 0.4 mg/dl (0.2-1); Globulin 4.3 gm/dl (2.5-4.0); Total Protein 7.2 gm/dl (6.4-8.2); Troponin I < 0.015 ng/ml (0-0.045)
--- NOTE | 2020-12-14 15:50 | XRay Report ---
XR chest 1V portable CLINICAL HISTORY: Atypical chest pain TECHNIQUE: Single frontal radiograph of the chest was obtained. Comparison: Comparison is made to chest one view 10/29/2020 FINDINGS: Median sternotomy wires and implanted pacemaker unchanged. Stable port catheter. The cardiomediastina l silhouette is normal. The lungs are clear. No evidence of pleural effusion or pneumothorax. IMPRESSION: No acute chest disease. ACT 112: Negative or not required by law. Electronically signed by: Madhav Hare M.D. 12/14/2020 3:49 PM
--- NOTE | 2020-12-14 15:53 | XRay Report ---
XR ankle LT min 3V routine, XR tibia fibula LT 2V CLINICAL HISTORY: fall eval for fx TECHNIQUE: 3 views of the left ankle were obtained. 2 views of the left tibia and fibula were obtaine d. Comparison: None available at the time of this dictation. FINDINGS: No acute fractures are present. The alignment is anatomic. Bony mineralization is within normal limit s. The ankle mortise is intact. The talar dome is smooth. There is no ankle effusion. Soft tissue swe lling is seen about the ankle. IMPRESSION: Soft tissue swelling about the ankle without acute abnormality. ACT 112: Negative or not required by law. Electronically signed by: Madhav Hare M.D. 12/14/2020 3:51 PM
[2020-12-14] MEDS ORDERED: DEXTROSE 50% 50 ML SYRINGE IV PRN (17:15)
[2020-12-14] MEDS ORDERED: GLUCOSE 40% GEL 15 GM TUBE PO PRN (17:15)
[2020-12-14] MEDS ORDERED: GLUCOSE 10 TABS/TUBE PO PRN (17:15)
[2020-12-14] MEDS ORDERED: GLUCAGON FOR INJ 1 MG VIAL IM PRN (17:15)
--- NOTE | 2020-12-14 17:58 | History & Physical Report ---
Date of Service December 14, 2020 Assessment & Plan (1) Chest pain: (2) Coronary artery disease: Plan: -Admit to telemetry -Patient presenting from home for evaluation of left ankle pain after a mechanical fall last evening and also developing exertional chest pain while ambulating with a walker. -In the ED, initial troponin negative, EKG demonstrates a paced rhythm. -Continue to cycle cardiac enzymes -N.p.o. after midnight for possible cardiac testing tomorrow -Neurology consult, input appreciated -Continue ASA and statin (3) Left ankle sprain: Plan: -No signs of fracture on x-ray -Orthopedics consult, input appreciated (4) Chronic blood loss anemia: Plan: -Recent GI evaluation as per HPI -Hgb at baseline at 9.8 -Follows with Dr. Enrrique Christine for SNOW and iron infusions (5) Chronic diastolic CHF (congestive heart failure): Plan: -Appears euvolemic -Continue home furosemide (6) Pacemaker: (7) High-grade atrioventricular block: Plan: -No acute issues (8) CKD (chronic kidney disease), stage IV: Plan: -Baseline creatinine runs in the high ones, noted to be 1.7 today -Monitor renal functions (9) IDDM (insulin dependent diabetes mellitus): Plan: -Hgb A1c 5.2 10/2020 -On high doses of insulin at home, glycemic pharmacy consulted (10) Sleep apnea: Plan: -CPAP as per home settings (11) Psoriatic arthritis: Plan: -On weekly Enbrel injections (12) DVT prophylaxis: Plan: -SCDs due to chronic anemia and GI blood loss History of Present Illness Chief Complaint: Left ankle pain, chest pain Primary Care Provider: Levy Stout MD 80-year-old male with PMH IDDM, CKD stage IV, chronic diastolic CHF, KATHE on CPAP, Mobitz type I AV block s/p pacemaker, chronic GI blood loss and iron deficiency anemia, CAD s/p CABG and stenting, psoriatic arthritis, and other problems listed below who presents to the ED for evaluation of left ankle pain and chest pain. Of note, patient recently admitted to [facility] 10/29 through 11/02 for acute on chronic blood loss anemia. Required PRBC transfusion. EGD showed a single bleeding angiodysplastic lesion in the jejunum that was treated with APC and clips. 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 Patient underwent EGD on 11/14 and had AVM cauterized and clipped. Patient continues to follow with heme-onc for iron infusions. Patient reports that last evening he slipped on some wet grass and twisted his left ankle. He reports having a lot of pain and inability bear weight. Patient was using a walker to ambulate this morning and was exerting himself by doing so. He reports developing a substernal chest pain. He describes a dull ache. He also had associated shortness of breath and diaphoresis. Patient reports the symptoms are similar to when he is anemic and needs blood. Patient asked his son to bring him to the ED to be evaluated for left ankle pain. Patient denies any associated lightheadedness, dizziness, loss of consciousness with his fall yesterday. He reports his stools are black at baseline due to iron. Denies noticing any bright red bleeding. No abdominal pain, nausea, vomiting, diarrhea. Denies fevers and chills. No cough or sputum production. Denies urinary symptoms. In the ED, Hgb is found to be 9.8 (at baseline for the patient). Left ankle imaging is negative for fracture. Initial troponin is negative, EKG demonstrates a paced rhythm. Allergies Allergy/AdvReac Type Severity Reaction Status Date / Time methylprednisolone AdvReac Severe AMS Verified 12/14/20 17:03 hydromorphone [From Dilaudid] AdvReac Mild Nausea Verified 12/14/20 17:03 prednisone AdvReac Mild INCREASE Verified 12/14/20 17:03 BLOOD SUGAR Home Medications Medication Instructions Recorded Confirmed Type atorvastatin 80 mg tablet 80 mg PO QPM 11/13/17 12/14/20 History fluticasone propionate 50 2 spray INTRANASAL DAILY 11/13/17 12/14/20 History mcg/actuation nasal spray,suspension (Flonase Allergy Relief) insulin degludec 200 unit/mL (3 120 unit SUBCUT QAM 11/13/17 12/14/20 History mL) subcutaneous pen (Tresiba FlexTouch U-200 insulin) nitroglycerin 0.4 mg sublingual 0.4 mg SUBLINGUAL UD PRN 11/13/17 12/14/20 History tablet (Nitrostat) etanercept 50 mg/mL (1 mL) 1 dose SUBCUT WK 04/10/18 12/14/20 History subcutaneous pen injector (Enbrel SureClick) furosemide 80 mg tablet (Lasix) 80 mg PO QAM 04/20/18 12/14/20 History omeprazole 20 mg tablet,delayed 20 mg PO BID #60 tab 10/14/19 12/14/20 Rx release allopurinol 300 mg tablet 300 mg PO DAILY 06/09/20 12/14/20 History aspirin 81 mg tablet,delayed 81 mg PO DAILY 06/09/20 12/14/20 History release (Aspirin Low Dose) folic acid 1 mg tablet 1 mg PO DAILY 06/09/20 12/14/20 History insulin aspart U-100 100 unit/mL 30 unit SUBCUT TIDM 10/29/20 12/14/20 History (3 mL) subcutaneous pen (Novolog Flexpen U-100 Insulin aspart) liraglutide 0.6 mg/0.1 mL (18 mg/3 1.8 mg SUBCUT QAM 10/29/20 12/14/20 History mL) subcutaneous pen injector (Victoza 3-Kei) Past Med/Surg History Medical History (Updated 12/14/20 @ 18:03 by FRANCHESKA Delarosa) Anemia RECENT HOSPITALIZATION +BLOOD TRANFUSIONS Chronic diastolic CHF (congestive heart failure) Chronic obstructive pulmonary disease CKD (chronic kidney disease), stage IV Diabetes mellitus, type 2 Diverticular disease GERD (gastroesophageal reflux disease) History of colon polyps History of prostate cancer radiation seeds Hx of gout Hyperlipidemia Hypertension IDDM (insulin dependent diabetes mellitus) Obesity On home oxygen therapy 2L N/C AT HS WITH CPAP Osteoarthritis Pacemaker Psoriasis Sleep apnea CPAP WITH O2 AT 2L Surgical History History of cardiac cath had 4 total--last 2016 @ [facility] History of colonoscopy History of esophagogastroduodenoscopy (EGD) History of heart artery stent x6 stents total History of prostate biopsy malignant History of tooth extraction S/P CABG x 3 2008 @ [facility]---follows with Dr. Rolon Status post LASIK surgery of both eyes Family History Son Family history of diabetes mellitus Other No family history of adverse response to anesthesia Social History Smoking Status: Former smoker Tobacco Type: Cigars Second Hand Exposure: No; Hx Alcohol Use: No Preferred Language: Pashto Communication Ability: Effective Film Washer Required: No Beliefs That Will Affect Care: None marital status: Current Living Situation: Family Current Living Situation Comment: /[facility] [employer] GRANDSON Feels Safe at Home: Yes Assistive Devices: CPAP, Denture - Upper, Glasses and Oxygen - at Night Review of Systems Review of Systems: ROS per HPI, all other systems reviewed and negative Physical Exam Constitutional: WD/WN, vitals as above + obese; no acute distress Eyes: PERRL, conjunctivae normal, anicteric sclerae ENMT: external ear and nose normal, oropharynx normal Respiratory: normal respiratory effort, lungs clear to auscultation Cardiovascular: Rate/Rhythm: regular rate and regular rhythm Vessels: normal peripheral pulses Extremities: + edema (+2 pitting edema BLE -at baseline per patient) Gastrointestinal (Abdomen): normal bowel sounds, soft, nontender, no hepatosplenomegaly Musculoskeletal: no cyanosis or clubbing, extremities motor strength 5/[address] in [address] Skin: no rashes, warm and dry Neurologic: PERRL, EOMI, accommodation nl, no face palsy, no dysarthria Psychiatric: A+Ox3, euthymic affect Results & Data Results & Data ([facility]) Vital Signs (Past 12 Hours) Vital Signs Temp Pulse Pulse Resp BP BP Pulse Ox 12/14/20 16:42 76 17 131/60 97 12/14/20 16:15 80 18 12/14/20 16:00 76 20 12/14/20 15:45 74 16 12/14/20 15:30 80 19 12/14/20 15:15 78 13 96 12/14/20 15:14 77 18 97 12/14/20 15:12 75 20 96 12/14/20 15:07 36.5 C 74 18 155/63 H 97 Laboratory Results Short CBC 12/14/20 Range/Units 15:00 WBC 11.42 H (4.8-10.8) K/uL Hgb 9.8 L (14.0-18.0) g/dL Hct 32.0 L (42-52) % Plt Count 297 (130-400) K/uL BMP 12/14/20 15:00 Sodium 140 Potassium 3.7 Chloride 102 Carbon Dioxide 27 BUN 30 H Creatinine 1.74 H Glucose 78 Calcium 8.9 Cardiac Enzymes 12/14/20 Range/Units 15:00 Troponin I < 0.015 (0-0.045) ng/ml Liver Function 12/14/20 Range/Units 15:00 Total Bilirubin 0.4 (0.2-1) mg/dl AST 14 L (15-37) U/L ALT 22 (12-78) U/L Alkaline Phosphatase 163 H (45-117) U/L Albumin 2.9 L (3.4-5.0) gm/dl Diagnostic Findings Ankle X-Ray 12/14/20 15:12 XR ankle LT min 3V routine, XR tibia fibula LT 2V CLINICAL HISTORY: fall eval for fx TECHNIQUE: 3 views of the left ankle were obtained. 2 views of the left tibia and fibula were obtained. Comparison: None available at the time of this dictation. FINDINGS: No acute fractures are present. The alignment is anatomic. Bony mineralization is within normal limits. The ankle mortise is intact. The talar dome is smooth. There is no ankle effusion. Soft tissue swelling is seen about the ankle. IMPRESSION: Soft tissue swelling about the ankle without acute abnormality. ACT 112: Negative or not required by law. Electronically signed by: Madhav Hare M.D. 12/14/2020 3:51 PM Chest X-Ray 12/14/20 15:12 XR chest 1V portable CLINICAL HISTORY: Atypical chest pain TECHNIQUE: Single frontal radiograph of the chest was obtained. Comparison: Comparison is made to chest one view 10/29/2020 FINDINGS: Median sternotomy wires and implanted pacemaker unchanged. Stable port catheter. The cardiomediastinal silhouette is normal. The lungs are clear. No evidence of pleural effusion or pneumothorax. IMPRESSION: No acute chest disease. ACT 112: Negative or not required by law. Electronically signed by: Madhav Hare M.D. 12/14/2020 3:49 PM Tibia/Fibula X-Ray 12/14/20 15:12 XR ankle LT min 3V routine, XR tibia fibula LT 2V CLINICAL HISTORY: fall eval for fx TECHNIQUE: 3 views of the left ankle were obtained. 2 views of the left tibia and fibula were obtained. Comparison: None available at the time of this dictation. FINDINGS: No acute fractures are present. The alignment is anatomic. Bony mineralization is within normal limits. The ankle mortise is intact. The talar dome is smooth. There is no ankle effusion. Soft tissue swelling is seen about the ankle. IMPRESSION: Soft tissue swelling about the ankle without acute abnormality. ACT 112: Negative or not required by law. Electronically signed by: Madhav Hare M.D. 12/14/2020 3:51 PM Code Status & VTE Plan Code Status Patient is a full code as per my discussion with him. VTE Prophylaxis Plan VTE Prophylaxis will be ordered: Yes Supervising Physician Co-Signing Physician Notes Attending Addendum: care coordinated with FRANCHESKA lott please refer to her notes for full details, I agree with her notes patient seen and examined, records reviewed by myself as well on exam, patient seen resting in chair, watching TV, comfortable No recurrence of chest pain since admission to the ER No shortness of breath, dizziness, palpitations Has some left ankle discomfort no other symptoms VS noted and reviewed oriented x 3 , not in distress, speaks in sentences with no effort nor accessory muscle use normal rate, regular rhythm, no murmurs clear breath sounds bilaterally non distended, soft, nontender no bipedal edema, erythema, warmth Left ankle with mild edema, no erythema/warmth/tenderness no neuro deficits WBC 11.4 Hg 9.8 Crea 1.7 ASSESSMENT AND PLAN Chest pain, history of CAD Initial troponin negative, EKG no signs of acute ischemia or infarct Serial troponins, echocardiogram Cardiology consultation Left ankle pain Left ankle x-ray no fractures Continue pain management Orthopedic consultation other diagnoses and plan of care as per FRANCHESKA lott's notes Raj Sanford MD
[2020-12-14] MEDS ORDERED: NITROGLYCERIN SL 0.4 MG/TAB TAB SL PRN (19:13)
[2020-12-14] MEDS ORDERED: PHARMACY GLYCEMIC MGMT CONSULT PRN (19:13)
[2020-12-14] MEDS: CARBOHYDRATES FOR HYPOGLYCEMIA PO PRN ×2 (19:15→19:39)
[2020-12-14] MEDS: ATORVASTATIN 40 MG TAB PO SCH (21:16)
[2020-12-14] MEDS: PANTOprazole 40 MG TAB PO SCH (21:16)
[2020-12-14] MEDS: ACETAMINOPHEN 325 MG TAB PO PRN (21:16)
[2020-12-14] MEDS: INSULIN ASPART 100 UNITS/ML 3 ML PEN SC SCH (21:27)
[2020-12-15] MEDS ORDERED: HYDROmorphone INJ 0.5 MG/0.5 ML SYR IV STA (03:43)
[2020-12-15] MEDS ORDERED: oxyCODONE HCL IR 5 MG TAB (IMMEDIATE RELEASE) PO STA (03:53)
[2020-12-15 04:13] LABS: Hematocrit (blood only) 29.9 % (42-52); Hemoglobin 9.2 g/dL (14.0-18.0); Mean Corpuscular Hemoglobin 28.1 pg (25-34); Mean Corpuscular Hgb Conc 30.8 g/dL (32-36); Mean Corpuscular Volume 91.4 fL (80-100); Mean Platelet Volume 8.8 fL (7.4-10.4); Platelet Count 259 K/uL (130-400); RDW Standard Deviation 61.9 fL (36.4-46.3); Red Blood Count 3.27 M/uL (4.7-6.1); White Blood Count 11.03 K/uL (4.8-10.8)
[2020-12-15 04:32] LABS: BUN Creatinine Ratio 18.3 (10-20); Blood Urea Nitrogen 30 mg/dl (7-18); Calcium 8.3 mg/dl (8.5-10.1); Carbon Dioxide 28 mmol/L (21-32); Chloride 103 mmol/L (98-107); Creatinine Clr Calc Pharmacy 43.5 ml/min; Est GFR (African American) 46.4 ml/min; Est GFR (Non-African American) 40.1 ml/min; Glucose 107 mg/dl (70-99); Potassium 3.6 mmol/L (3.5-5.1); Sodium 137 mmol/L (136-145)
[2020-12-15 04:36] LABS: Troponin I < 0.015 ng/ml (0-0.045)
[2020-12-15] MEDS: INSULIN ASPART 100 UNITS/ML 3 ML PEN SC SCH ×4 (08:10→20:15)
--- NOTE | 2020-12-15 08:14 | Cardiology Consultation ---
Date of Consultation December 15, 2020 Assessment & Plan (1) Chest pain: (2) Left ankle sprain: (3) Chronic kidney disease: (4) Chronic blood loss anemia: (5) Coronary artery disease: Patient admitted after several episodes of chest pain, while trying to support himself on one foot after mechanical fall/injury to his left ankle. He has a long history of crescendo angina when hbg falls below 10 with chronic blood loss anemia. He is receiving weekly iron transfusions. He was recently a dmitted for symptomatic anemia in Oct 2020, requiring 1 unit PRBC's. He had chest pain at that time, and it was agreed that he would be high risk for further cardiac testing/intervention due to CKD, anemia, and previously intolerant of dual antiplatelet therapy. Ongoing med management recommended for chronic angina and goal Hbg >10 Since admission, he has been chest pain free at rest. His troponin is negative x 3 and EKG is with chronic ventricular pacing. His last echo was limited due to body habitus, but also completed while in complete heart block in May 2020. He has not had an echo since pacemaker. With chronic RV pacing and intermittent chest pain, will update LV function. For now, he will continue ASA, statin, furosemide. He is not currently on REENA/ARB due to CKD. Per review of outpatient meds, he was previously taking isosorbide in 2016 and 2017 and was discontinued for unknown reasons. Will resume trial of isosorbide 30 mg - 1 tablet daily to aid with chronic angina. Consider ortho consult for ongoing left ankle pain and not able to bear weight. Case discussed with Dr. Arevalo. Will follow. History of Present Illness Reason for Consultation: Chest pain Requesting Physician: FRANCHESKA Delarosa Attending Physician: Dr. Arevalo History of Present Illness Patient is a 80 year old male who is known to [facility], following with Dr. Rolon for history of complex cardiovascular disease. Recent admitted to [facility] with chest pain, SOB, and found to have symptomatic anemia. Underwent colonoscopy and EGD, with a single bleeding angiodysplastic lesion in the jejunum. Treated with argon plasma coagulation (APC). Clips (MR conditional) were placed. Symptoms improved with 1 unit PRBC's. He has a history of symptoms when Hbg drops below 10 per chart review. Ongoing medical management recommended for his history of CAD and chronic angina due to chronic blood loss with dual antiplatelet therapy in the past. Risks felt to be outweighing the benefits. Patient sustained a mechanical fall yesterday injuring his left ankle. He was then using a walker to ambulate and was "hopping on 1 foot" throughout the afternoon. each time he tried to ambulate on one foot, he would become diaphoretic and develop substernal chest pain under his left breast. Symptoms would resolve within one minute of stopping. he admits to using his upper extremities to support himself on the walker due to his leg injury. He denied recent chest pain since last hospital discharge. No need for SL nitro. Due to his inability to bear weight on his left foot/ankle and intermittent CP/SOB, he was brought to ER for evaluation. In ER, EKG demonstrated atrial sensed, ventricular paced rhythm, stable form prior evaluations. Chest xray was unremarkable. Troponin x3 was normal. He remained chest pain free during ER evaluation and admission overnight. His Hbg was 9.8 on admission and he reports he typically has CP/SOB when hbg falls below 10. Last iron transfusion on Tuesday. He is having them weekly. At time of consult, patient feeling well, other than left ankle pain. No fractures noted. Denies CP/SOB currently but has not been able to ambulate or out of bed. Hbg down to 9.2 this morning. No orthopnea, PND or worsening edema. No dizziness or palpitations. History includes: 1.Coronary artery disease, status post coronary bypass grafting surgery x3 in 2008, along with multiple PCIs to the RCA and patent RCA stents with 2 patent grafts by cardiac catheterization August 2016. 2.Chronic respiratory failure, on home O2, improved. 3.Severe anemia requiring transfusion while on dual antiplatelet therapy. 4.Stage III-IV chronic kidney disease with a baseline creatinine around 2. 5.Elevated BMI. 6.COPD. 7.Obstructive sleep apnea, on nocturnal CPAP. 8.Diabetes. 9.Dyslipidemia. 10. 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 Recurrent symptomatic anemia, with recent admission in Oct 2020 requiring 1 unit PRBC's. Follows with hematology for iron infusions. EGD Oct 2020 with gastritis and AVM's clipped/cauterized. Allergies Allergy/AdvReac Type Severity Reaction Status Date / Time methylprednisolone AdvReac Severe AMS Verified 12/14/20 17:03 hydromorphone [From Dilaudid] AdvReac Mild Nausea Verified 12/14/20 17:03 prednisone AdvReac Mild INCREASE Verified 12/14/20 17:03 BLOOD SUGAR Home Medications Medication Instructions Recorded Confirmed Type atorvastatin 80 mg tablet 80 mg PO QPM 11/13/17 12/14/20 History fluticasone propionate 50 2 spray INTRANASAL DAILY 11/13/17 12/14/20 History mcg/actuation nasal spray,suspension (Flonase Allergy Relief) insulin degludec 200 unit/mL (3 120 unit SUBCUT QAM 11/13/17 12/14/20 History mL) subcutaneous pen (Tresiba FlexTouch U-200 insulin) nitroglycerin 0.4 mg sublingual 0.4 mg SUBLINGUAL UD PRN 11/13/17 12/14/20 History tablet (Nitrostat) etanercept 50 mg/mL (1 mL) 1 dose SUBCUT WK 04/10/18 12/14/20 History subcutaneous pen injector (Enbrel SureClick) furosemide 80 mg tablet (Lasix) 80 mg PO QAM 04/20/18 12/14/20 History omeprazole 20 mg tablet,delayed 20 mg PO BID #60 tab 10/14/19 12/14/20 Rx release allopurinol 300 mg tablet 300 mg PO DAILY 06/09/20 12/14/20 History aspirin 81 mg tablet,delayed 81 mg PO DAILY 06/09/20 12/14/20 History release (Aspirin Low Dose) folic acid 1 mg tablet 1 mg PO DAILY 06/09/20 12/14/20 History insulin aspart U-100 100 unit/mL 30 unit SUBCUT TIDM 10/29/20 12/14/20 History (3 mL) subcutaneous pen (Novolog Flexpen U-100 Insulin aspart) liraglutide 0.6 mg/0.1 mL (18 mg/3 1.8 mg SUBCUT QAM 10/29/20 12/14/20 History mL) subcutaneous pen injector (Victoza 3-Kei) Patient History Medical History (Updated 12/14/20 @ 21:21 by Gareth Wilburn MD) Anemia RECENT HOSPITALIZATION +BLOOD TRANFUSIONS Chronic diastolic CHF (congestive heart failure) Chronic obstructive pulmonary disease CKD (chronic kidney disease), stage IV Diabetes mellitus, type 2 Diverticular disease GERD (gastroesophageal reflux disease) History of colon polyps History of prostate cancer radiation seeds Hx of gout Hyperlipidemia Hypertension IDDM (insulin dependent diabetes mellitus) Obesity On home oxygen therapy 2L N/C AT HS WITH CPAP Osteoarthritis Pacemaker Psoriasis Sleep apnea CPAP WITH O2 AT 2L Surgical History History of cardiac cath had 4 total--last 2015 @ [facility] History of colonoscopy History of esophagogastroduodenoscopy (EGD) History of heart artery stent x6 stents total History of prostate biopsy malignant History of tooth extraction S/P CABG x 3 2008 @ [facility]---follows with Dr. Rolon Status post LASIK surgery of both eyes Family History Son Family history of diabetes mellitus Other No family history of adverse response to anesthesia Social History Smoking Status: Former smoker Tobacco Type: Cigars Second Hand Exposure: No; Do You Dip or Chew Tobacco: No; Hx Alcohol Use: No Hx Substance Use: No Preferred Language: Vietnamese Communication Ability: Effective Rosin Barrel Filler Required: No Beliefs That Will Affect Care: None marital status: Current Living Situation: Spouse Current Living Situation Comment: /SON AND GRANDSON How many Children do You have: 2 Feels Safe at Home: Yes Safety Concerns: Feels Safe At This Time Assistive Devices: None Review of Systems 2 Review of Systems: All systems reviewed & are unremarkable except as noted in HPI & below Physical Exam Constitutional: WD/WN, vitals as above + obese; no acute distress Neck: + thick neck Respiratory: normal respiratory effort, lungs clear to auscultation Cardiovascular: Rate/Rhythm: regular rate and regular rhythm Heart Sounds: normal S1 and normal S2; no murmur Vessels: no JVD Extremities: + edema (1+ left ankle/foot edema; Trace right edema) Gastrointestinal (Abdomen): normal bowel sounds, soft, nontender, no hepatosplenomegaly Musculoskeletal: Extremities: + lower extremity abnormal to inspection (swelling of left ankle) Left Neurologic: PERRL, EOMI, accommodation nl, no face palsy, no dysarthria Psychiatric: A+Ox3, euthymic affect Results & Data ([facility]) Vital Signs (Past 12 Hours) Vital Signs Temp Pulse Pulse Resp BP Pulse Ox 11/01/21 03:59 36.6 C 72 18 136/70 98 12/15/20 01:50 73 12/14/20 23:19 36.7 C 78 18 133/74 96 12/14/20 21:00 75 Laboratory Results 12/15/20 12/15/20 12/15/20 Range/Units 05:38 03:56 03:53 WBC 11.03 H (4.8-10.8) K/uL RBC 3.27 L (4.7-6.1) M/uL Hgb 9.2 L (14.0-18.0) g/dL Hct 29.9 L (42-52) % MCV 91.4 (80-100) fL MCH 28.1 (25-34) pg MCHC 30.8 L (32-36) g/dL RDW Std Deviation 61.9 H (36.4-46.3) fL RDW Coeff of Joey 19.0 H (11.5-14.5) % Plt Count 259 (130-400) K/uL MPV 8.8 (7.4-10.4) fL Immature Gran % (Auto) % Neut % (Auto) % Lymph % (Auto) % H[place]go % (Auto) % Eos % (Auto) % Baso % (Auto) % Neut # (Auto) (1.4-6.5) K/uL Lymph # (Auto) (1.2-3.4) K/uL [place] # (Auto) (0.11-0.59) K/uL Eos # (Auto) (0-0.5) K/uL Baso # (Auto) (0-0.2) K/uL Immature Gran # (Auto) (0.00-0.02) K/uL Sodium 137 (136-145) mmol/L Potassium 3.6 (3.5-5.1) mmol/L Chloride 103 (98-107) mmol/L Carbon Dioxide 28 (21-32) mmol/L Anion Gap 6.0 (3-11) BUN 30 H (7-18) mg/dl Creatinine 1.62 H (0.6-1.4) mg/dl Est Cr Clr Drug Dosing 43.5 ml/min Est GFR ( Amer) 46.4 ml/min Est GFR (Non-Af Amer) 40.1 ml/min BUN/Creatinine Ratio 18.3 (10-20) Glucose 107 H (70-99) mg/dl POC Glucose 95 (70-99) mg/dl Calcium 8.3 L (8.5-10.1) mg/dl Total Bilirubin (0.2-1) mg/dl AST (15-37) U/L ALT (12-78) U/L Alkaline Phosphatase (45-117) U/L Troponin I < 0.015 (0-0.045) ng/ml Total Protein (6.4-8.2) gm/dl Albumin (3.4-5.0) gm/dl Globulin (2.5-4.0) gm/dl Albumin/Globulin Ratio (0.9-2) Lipase (73-393) U/L COVID-19 Eval Order SARS-CoV-2 (PCR) (Negative) Blood Type Antibody Screen 12/14/20 12/14/20 12/14/20 Range/Units 21:10 20:04 19:35 WBC (4.8-10.8) K/uL RBC (4.7-6.1) M/uL Hgb (14.0-18.0) g/dL Hct (42-52) % MCV (80-100) fL MCH (25-34) pg MCHC (32-36) g/dL RDW Std Deviation (36.4-46.3) fL RDW Coeff of Joey (11.5-14.5) % Plt Count (130-400) K/uL MPV (7.4-10.4) fL Immature Gran % (Auto) % Neut % (Auto) % Lymph % (Auto) % H[place]go % (Auto) % Eos % (Auto) % Baso % (Auto) % Neut # (Auto) (1.4-6.5) K/uL Lymph # (Auto) (1.2-3.4) K/uL [place]go # (Auto) (0.11-0.59) K/uL Eos # (Auto) (0-0.5) K/uL Baso # (Auto) (0-0.2) K/uL Immature Gran # (Auto) (0.00-0.02) K/uL Sodium (136-145) mmol/L Potassium (3.5-5.1) mmol/L Chloride (98-107) mmol/L Carbon Dioxide (21-32) mmol/L Anion Gap (3-11) BUN (7-18) mg/dl Creatinine (0.6-1.4) mg/dl Est Cr Clr Drug Dosing ml/min Est GFR ( Amer) ml/min Est GFR (Non-Af Amer) ml/min BUN/Creatinine Ratio (10-20) Glucose (70-99) mg/dl POC Glucose 85 67 L* (70-99) mg/dl Calcium (8.5-10.1) mg/dl Total Bilirubin (0.2-1) mg/dl AST (15-37) U/L ALT (12-78) U/L Alkaline Phosphatase (45-117) U/L Troponin I < 0.015 (0-0.045) ng/ml Total Protein (6.4-8.2) gm/dl Albumin (3.4-5.0) gm/dl Globulin (2.5-4.0) gm/dl Albumin/Globulin Ratio (0.9-2) Lipase (73-393) U/L COVID-19 Eval Order SARS-CoV-2 (PCR) (Negative) Blood Type Antibody Screen 12/14/20 12/14/20 12/14/20 Range/Units 19:17 15:21 15:20 WBC (4.8-10.8) K/uL RBC (4.7-6.1) M/uL Hgb (14.0-18.0) g/dL Hct (42-52) % MCV (80-100) fL MCH (25-34) pg MCHC (32-36) g/dL RDW Std Deviation (36.4-46.3) fL RDW Coeff of Joey (11.5-14.5) % Plt Count (130-400) K/uL MPV (7.4-10.4) fL Immature Gran % (Auto) % Neut % (Auto) % Lymph % (Auto) % [place] % (Auto) % Eos % (Auto) % Baso % (Auto) % Neut # (Auto) (1.4-6.5) K/uL Lymph # (Auto) (1.2-3.4) K/uL [place] # (Auto) (0.11-0.59) K/uL Eos # (Auto) (0-0.5) K/uL Baso # (Auto) (0-0.2) K/uL Immature Gran # (Auto) (0.00-0.02) K/uL Sodium (136-145) mmol/L Potassium (3.5-5.1) mmol/L Chloride (98-107) mmol/L Carbon Dioxide (21-32) mmol/L Anion Gap (3-11) BUN (7-18) mg/dl Creatinine (0.6-1.4) mg/dl Est Cr Clr Drug Dosing ml/min Est GFR ( Amer) ml/min Est GFR (Non-Af Amer) ml/min BUN/Creatinine Ratio (10-20) Glucose (70-99) mg/dl POC Glucose 59 L* (70-99) mg/dl Calcium (8.5-10.1) mg/dl Total Bilirubin (0.2-1) mg/dl AST (15-37) U/L ALT (12-78) U/L Alkaline Phosphatase (45-117) U/L Troponin I (0-0.045) ng/ml Total Protein (6.4-8.2) gm/dl Albumin (3.4-5.0) gm/dl Globulin (2.5-4.0) gm/dl Albumin/Globulin Ratio (0.9-2) Lipase (73-393) U/L COVID-19 Eval Order SARS-CoV-2 (PCR) NEGATIVE (Negative) Blood Type A Positive Antibody Screen NEGATIVE 12/14/20 12/14/20 12/14/20 Range/Units 15:20 15:00 15:00 WBC 11.42 H (4.8-10.8) K/uL RBC 3.51 L (4.7-6.1) M/uL Hgb 9.8 L (14.0-18.0) g/dL Hct 32.0 L (42-52) % MCV 91.2 (80-100) fL MCH 27.9 (25-34) pg MCHC 30.6 L (32-36) g/dL RDW Std Deviation 61.5 H (36.4-46.3) fL RDW Coeff of Joey 18.9 H (11.5-14.5) % Plt Count 297 (130-400) K/uL MPV 9.0 (7.4-10.4) fL Immature Gran % (Auto) 0.4 % Neut % (Auto) 80.0 % Lymph % (Auto) 12.0 % Hidalgo % (Auto) 3.8 % Eos % (Auto) 3.5 % Baso % (Auto) 0.3 % Neut # (Auto) 9.14 H (1.4-6.5) K/uL Lymph # (Auto) 1.37 (1.2-3.4) K/uL [place]go # (Auto) 0.43 (0.11-0.59) K/uL Eos # (Auto) 0.40 (0-0.5) K/uL Baso # (Auto) 0.03 (0-0.2) K/uL Immature Gran # (Auto) 0.05 H (0.00-0.02) K/uL Sodium 140 (136-145) mmol/L Potassium 3.7 (3.5-5.1) mmol/L Chloride 102 (98-107) mmol/L Carbon Dioxide 27 (21-32) mmol/L Anion Gap 11.0 (3-11) BUN 30 H (7-18) mg/dl Creatinine 1.74 H (0.6-1.4) mg/dl Est Cr Clr Drug Dosing 40.8 ml/min Est GFR ( Amer) 42.6 ml/min Est GFR (Non-Af Amer) 36.7 ml/min BUN/Creatinine Ratio 17.1 (10-20) Glucose 78 (70-99) mg/dl POC Glucose (70-99) mg/dl Calcium 8.9 (8.5-10.1) mg/dl Total Bilirubin 0.4 (0.2-1) mg/dl AST 14 L (15-37) U/L ALT 22 (12-78) U/L Alkaline Phosphatase 163 H (45-117) U/L Troponin I < 0.015 (0-0.045) ng/ml Total Protein 7.2 (6.4-8.2) gm/dl Albumin 2.9 L (3.4-5.0) gm/dl Globulin 4.3 H (2.5-4.0) gm/dl Albumin/Globulin Ratio 0.7 L (0.9-2) Lipase 179 (73-393) U/L COVID-19 Eval Order Covid19 at [facility] SARS-CoV-2 (PCR) (Negative) Blood Type Antibody Screen Diagnostic Findings Telemetry reviewed - Ventricular paced rhythm. EKG on arrival to ER reviewed: Atrial-sensed Ventricular-paced rhythm No significant change from previous Repeat EKG this morning: Atrial-sensed ventricular-paced rhythm Compared with prior EKG, no significant changes noted Chest xray reviewed/per report: IMPRESSION: No acute chest disease Ankle/Tib/Fib xray: Soft tissue swelling about the ankle without acute abnormality. Device interrogation completed Nov 2020 as outpatient: Appropriate function and battery longevity of 13.4 years. 11.2% atrial paced 91.9% RV paced. 0 mode switches Prior echo report reviewed from May 2020 - Difficult study Patient was in complete heart block at the time Grossly normal LV function without valvular heart disease Medications Administered Medications atorvastatin 80 mg tablet 80 mg PO QPM 11/13/17 [History Confirmed 12/14/20] fluticasone propionate 50 mcg/actuation nasal spray,suspension (Flonase Allergy Relief) 2 spray INTRANASAL DAILY 11/13/17 [History Confirmed 12/14/20] insulin degludec 200 unit/mL (3 mL) subcutaneous pen (Tresiba FlexTouch U-200 insulin) 120 unit SUBCUT QAM 11/13/17 [History Confirmed 12/14/20] nitroglycerin 0.4 mg sublingual tablet (Nitrostat) 0.4 mg SUBLINGUAL UD PRN 11/13/17 [History Confirmed 12/14/20] etanercept 50 mg/mL (1 mL) subcutaneous pen injector (Enbrel SureClick) 1 dose SUBCUT WK 04/10/18 [History Confirmed 12/14/20] furosemide 80 mg tablet (Lasix) 80 mg PO QAM 04/20/18 [History Confirmed 12/14/20] omeprazole 20 mg tablet,delayed release 20 mg PO BID #60 tab 10/14/19 [Rx Confirmed 12/14/20] allopurinol 300 mg tablet 300 mg PO DAILY 06/09/20 [History Confirmed 12/14/20] aspirin 81 mg tablet,delayed release (Aspirin Low Dose) 81 mg PO DAILY 06/09/20 [History Confirmed 12/14/20] folic acid 1 mg tablet 1 mg PO DAILY 06/09/20 [History Confirmed 12/14/20] insulin aspart U-100 100 unit/mL (3 mL) subcutaneous pen (Novolog Flexpen U-100 Insulin aspart) 30 unit SUBCUT TIDM 10/29/20 [History Confirmed 12/14/20] liraglutide 0.6 mg/0.1 mL (18 mg/3 mL) subcutaneous pen injector (Victoza 3-Kei) 1.8 mg SUBCUT QAM 10/29/20 [History Confirmed 12/14/20] Home Medications Acetaminophen (Acetaminophen 325 Mg Tab) 650 mg PO Q4H PRN PRN Reason: Pain or Fever Stop: 01/13/21 19:12 Last Admin: 12/14/20 21:16 Dose: 650 mg Documented by: Allopurinol (Allopurinol 300 Mg Tab) 300 mg PO DAILY ELMER Stop: 01/14/21 08:59 Aspirin (Aspirin 81 Mg Ectab) 81 mg PO DAILY ELMER Stop: 01/14/21 08:59 Atorvastatin Calcium (Atorvastatin 40 Mg Tab) 80 mg PO QPM ELMER Stop: 01/13/21 20:59 Last Admin: 12/14/20 21:16 Dose: 80 mg Documented by: Dextrose (Dextrose 50% 50 Ml Syringe) 25 - 50 ml IV UD PRN; Protocol PRN Reason: Hypoglycemia Protocol Stop: 01/13/21 17:14 Folic Acid (Folic Acid 1 Mg Tab) 1 mg PO DAILY ELMER Stop: 01/14/21 08:59 Furosemide (Furosemide 80 Mg Tab) 80 mg PO QAM ELMER Stop: 01/14/21 08:59 Glucagon (Glucagon For Inj 1 Mg Vial) 1 mg IM UD PRN; Protocol PRN Reason: Hypoglycemia Protocol Stop: 01/13/21 17:14 Glucose (Glucose 40% Gel 15 Gm Tube) 15 - 30 gm PO UD PRN; Protocol PRN Reason: Hypoglycemia Protocol Stop: 01/13/21 17:14 Glucose (Glucose 10 Tabs/Tube) 4 - 8 tabs PO UD PRN; Protocol PRN Reason: Hypoglycemia Protocol Stop: 01/13/21 17:14 Insulin Aspart (Insulin Aspart 100 Units/Ml 3 Ml Pen) 0 units SC ACHS ELMER Stop: 01/13/21 20:59 Last Admin: 12/15/20 08:10 Dose: Not Given Documented by: Insulin Glargine (Insulin Glargine Solostar 100 Units/Ml 3 Ml Pen) 30 units SC DAILY ELMER Stop: 01/14/21 08:59 Miscellaneous (Carbohydrates For Hypoglycemia ) 15 - 30 gm PO UD PRN PRN Reason: Hypoglycemia Treatment Stop: 01/13/21 17:14 Last Admin: 12/14/20 19:39 Dose: 15 gm Documented by: Miscellaneous Information (Pharmacy Glycemic Mgmt Consult) 1 ea N/A UD PRN PRN Reason: Consult Stop: 01/13/21 19:12 Nitroglycerin (Nitroglycerin Sl 0.4 Mg/Tab Tab) 0.4 mg SL UD PRN PRN Reason: Chest Pain Stop: 01/13/21 19:12 Pantoprazole Sodium (Pantoprazole 40 Mg Tab) 40 mg PO BID ELMER Stop: 01/13/21 20:59 Last Admin: 12/14/20 21:16 Dose: 40 mg Documented by: Current Inpatient Medications Acetaminophen (Acetaminophen 325 Mg Tab) 650 mg PO Q4H PRN PRN Reason: Pain or Fever Stop: 01/13/21 19:12 Last Admin: 12/14/20 21:16 Dose: 650 mg Documented by: Allopurinol (Allopurinol 300 Mg Tab) 300 mg PO DAILY ELMER Stop: 01/14/21 08:59 Aspirin (Aspirin 81 Mg Ectab) 81 mg PO DAILY ELMER Stop: 01/14/21 08:59 Atorvastatin Calcium (Atorvastatin 40 Mg Tab) 80 mg PO QPM ELMER Stop: 01/13/21 20:59 Last Admin: 12/14/20 21:16 Dose: 80 mg Documented by: Dextrose (Dextrose 50% 50 Ml Syringe) 25 - 50 ml IV UD PRN; Protocol PRN Reason: Hypoglycemia Protocol Stop: 01/13/21 17:14 Folic Acid (Folic Acid 1 Mg Tab) 1 mg PO DAILY ELMER Stop: 01/14/21 08:59 Furosemide (Furosemide 80 Mg Tab) 80 mg PO QAM ELMER Stop: 01/14/21 08:59 Glucagon (Glucagon For Inj 1 Mg Vial) 1 mg IM UD PRN; Protocol PRN Reason: Hypoglycemia Protocol Stop: 01/13/21 17:14 Glucose (Glucose 40% Gel 15 Gm Tube) 15 - 30 gm PO UD PRN; Protocol PRN Reason: Hypoglycemia Protocol Stop: 01/13/21 17:14 Glucose (Glucose 10 Tabs/Tube) 4 - 8 tabs PO UD PRN; Protocol PRN Reason: Hypoglycemia Protocol Stop: 01/13/21 17:14 Insulin Aspart (Insulin Aspart 100 Units/Ml 3 Ml Pen) 0 units SC ACHS ELMER Stop: 01/13/21 20:59 Last Admin: 12/15/20 08:10 Dose: Not Given Documented by: Insulin Glargine (Insulin Glargine Solostar 100 Units/Ml 3 Ml Pen) 30 units SC DAILY ELMER Stop: 01/14/21 08:59 Miscellaneous (Carbohydrates For Hypoglycemia ) 15 - 30 gm PO UD PRN PRN Reason: Hypoglycemia Treatment Stop: 01/13/21 17:14 Last Admin: 12/14/20 19:39 Dose: 15 gm Documented by: Miscellaneous Information (Pharmacy Glycemic Mgmt Consult) 1 ea N/A UD PRN PRN Reason: Consult Stop: 01/13/21 19:12 Nitroglycerin (Nitroglycerin Sl 0.4 Mg/Tab Tab) 0.4 mg SL UD PRN PRN Reason: Chest Pain Stop: 01/13/21 19:12 Pantoprazole Sodium (Pantoprazole 40 Mg Tab) 40 mg PO BID ELMER Stop: 01/13/21 20:59 Last Admin: 12/14/20 21:16 Dose: 40 mg Documented by: Supervising Attestation Supervising Physician Attestation: I have personally performed a history and physical examination on the patient. I agree with the physician clinical research assistant's findings and plan as documented with the following additions. Subjective: Patient without any acute distress. Exam: Lungs clear, no significant edema Data: EKG reveals sinus rhythm with ventricular pacing Assessment and Plan: Chest discomfort, somewhat atypical for angina, uncertain if this is his chronic anginal equivalent, due to musculoskeletal strain from supporting himself with a walker, while his left ankle was not able to bear weight. -Negative troponin x3 is reassuring. -Agree with adding Imdur. -Update echo. DVT prophylaxis: He is not on pharmacologic DVT prophylaxis given his history of anemia. Ga Arevalo DO (1) Chronic kidney disease Chronic kidney disease stage: unspecified stage Qualified Code(s): N18.9 - Chronic kidney disease, unspecified (2) Left ankle sprain Encounter type: initial encounter Involved ligament of ankle: unspecified ligament Qualified Code(s): S93.402A - Sprain of unspecified ligament of left ankle, initial encounter
[2020-12-15] MEDS ORDERED: INSULIN GLARGINE SOLOSTAR 100 UNITS/ML 3 ML PEN SC SCH (09:00)
[2020-12-15] MEDS: FOLIC ACID 1 MG TAB PO SCH (10:11)
[2020-12-15] MEDS: PANTOprazole 40 MG TAB PO SCH ×2 (10:11→20:36)
[2020-12-15] MEDS: allopurinoL 300 MG TAB PO SCH (10:11)
[2020-12-15] MEDS: FUROSEMIDE 80 MG TAB PO SCH (10:11)
[2020-12-15] MEDS: ASPIRIN 81 MG ECTAB PO SCH (10:11)
[2020-12-15] MEDS: ACETAMINOPHEN 325 MG TAB PO PRN (10:17)
--- NOTE | 2020-12-15 11:04 | Electrocardiogram Report ---
Test Reason : Blood Pressure : / mmHG Vent. Rate : 074 BPM Atrial Rate : 074 BPM P-R Int : 196 ms QRS Dur : 164 ms QT Int : 476 ms P-R-T Axes : 027 -87 050 degrees QTc Int : 528 ms Atrial-sensed ventricular-paced rhythm Abnormal ECG When compared with ECG of 31-OCT-2020 06:25, Vent. rate has increased BY 2 BPM Confirmed by Devin Scott ([id number]) on 12/15/2020 11:04:14 AM Referred By: Confirmed By:Brice Scott
--- NOTE | 2020-12-15 11:27 | Pharmacy Report ---
Pharmacy Glycemic Short Note 2 - Date of Service December 15, 2020 - Glycemic Short BSG Results (Last 24 hours): 12/14/20 12/14/20 12/14/20 15:00 19:17 19:35 Glucose 78 POC Glucose 59 L* 67 L* 12/14/20 12/15/20 12/15/20 20:04 03:56 05:38 Glucose 107 H POC Glucose 85 95 OUTPATIENT ANTIDIABETIC REGIMEN: * Tresiba 120 units SC qAM * Novolog 30 units TIDM * Victoza * HbA1c 5.2% on 10/30/20 ASSESSMENT: * 80 yo M with T2DM admitted with chest pain * Originally NPO, but now ordered a diet * Recent admit reviewed - patient requires significantly less insulin as an inpatient as compared to his reported outpatient regimen. * Will resume regimen similar to previous admission PLAN FOR INPATIENT GLYCEMIC CONTROL: * Hold outpatient oral diabetes medications * Basal insulin * Lantus 30 units SQ qAM * Bolus insulin * NovoLog per scale ACHS or Q6hrs while NPO * Goal Range: Low 110 mg/dL - High 140 mg/dL * Correction Factor: 20 mg/dL/unit * Nutritional / Prandial insulin per carb ratio of 1 unit per 7 grams CHO consumed PLAN FOR DISCHARGE: * Concern for possible repeat and/or severe hypoglycemia as an outpatient given low HbA1c in the context of significantly reduced insulin requirements as an inpatient as compared to reported outpatient regimen. Dose reduction(s) may be warranted, depending on outpatient BSG's
--- NOTE | 2020-12-15 11:47 | Electrocardiogram Report ---
Test Reason : Blood Pressure : / mmHG Vent. Rate : 067 BPM Atrial Rate : 067 BPM P-R Int : 210 ms QRS Dur : 172 ms QT Int : 498 ms P-R-T Axes : 036 -87 050 degrees QTc Int : 526 ms Atrial-sensed ventricular-paced rhythm with prolonged AV conduction Abnormal ECG When compared with ECG of 14-DEC-2020 15:02, (unconfirmed) Vent. rate has decreased BY 7 BPM Confirmed by Devin Scott ([id number]) on 12/15/2020 11:46:33 AM Referred By: REFERRED SELF Confirmed By:Brice Scott
[2020-12-15] MEDS: ISOSORBIDE MONO EXTENDED REL 30 MG TABCR PO SCH (11:54)
--- NOTE | 2020-12-15 16:48 | Orthopedic Consultation ---
Date of Consultation December 15, 2020 Assessment & Plan (1) Left ankle injury: Continue the Aircast brace at this time. He is to remain nonweightbearing on the left lower extremity. CT scan of the left ankle to rule out lateral malleolus fracture. We discussed that if there is a nondisplaced fracture, he will be placed into a posterior splint and kept nonweightbearing until he can be casted in our office. If there is no fracture, he may need to go into a high walking boot. We will follow with the patient after the CT. Thank you for the consultation. (2) Left ankle swelling: History of Present Illness Reason for Consultation: Left ankle pain Attending Physician: Raj Sanford MD History of Present Illness This is a patient who states he sustained an inversion injury to his left ankle when he had a fall 2 days ago. He states he was able to walk immediately afterwards. However, as the evening went on the pain worsened and he was unable to walk. He was brought to the emergency room yesterday because of chest pain and also the inability to ambulate. X-rays were performed. He was placed into an Aircast brace. He states he is still unable to bear weight. Allergies Allergy/AdvReac Type Severity Reaction Status Date / Time methylprednisolone AdvReac Severe AMS Verified 12/14/20 17:03 hydromorphone [From Dilaudid] AdvReac Mild Nausea Verified 12/14/20 17:03 prednisone AdvReac Mild INCREASE Verified 12/14/20 17:03 BLOOD SUGAR Home Medications Medication Instructions Recorded Confirmed Type atorvastatin 80 mg tablet 80 mg PO QPM 11/13/17 12/14/20 History fluticasone propionate 50 2 spray INTRANASAL DAILY 11/13/17 12/14/20 History mcg/actuation nasal spray,suspension (Flonase Allergy Relief) insulin degludec 200 unit/mL (3 120 unit SUBCUT QAM 11/13/17 12/14/20 History mL) subcutaneous pen (Tresiba FlexTouch U-200 insulin) nitroglycerin 0.4 mg sublingual 0.4 mg SUBLINGUAL UD PRN 11/13/17 12/14/20 History tablet (Nitrostat) etanercept 50 mg/mL (1 mL) 1 dose SUBCUT WK 04/10/18 12/14/20 History subcutaneous pen injector (Enbrel SureClick) furosemide 80 mg tablet (Lasix) 80 mg PO QAM 04/20/18 12/14/20 History omeprazole 20 mg tablet,delayed 20 mg PO BID #60 tab 10/14/19 12/14/20 Rx release allopurinol 300 mg tablet 300 mg PO DAILY 06/09/20 12/14/20 History aspirin 81 mg tablet,delayed 81 mg PO DAILY 06/09/20 12/14/20 History release (Aspirin Low Dose) folic acid 1 mg tablet 1 mg PO DAILY 06/09/20 12/14/20 History insulin aspart U-100 100 unit/mL 30 unit SUBCUT TIDM 10/29/20 12/14/20 History (3 mL) subcutaneous pen (Novolog Flexpen U-100 Insulin aspart) liraglutide 0.6 mg/0.1 mL (18 mg/3 1.8 mg SUBCUT QAM 10/29/20 12/14/20 History mL) subcutaneous pen injector (Victoza 3-Kei) Patient History Medical History Anemia RECENT HOSPITALIZATION +BLOOD TRANFUSIONS Chronic diastolic CHF (congestive heart failure) Chronic obstructive pulmonary disease CKD (chronic kidney disease), stage IV Diabetes mellitus, type 2 Diverticular disease GERD (gastroesophageal reflux disease) History of colon polyps History of prostate cancer radiation seeds Hx of gout Hyperlipidemia Hypertension IDDM (insulin dependent diabetes mellitus) Obesity On home oxygen therapy 2L N/C AT HS WITH CPAP Osteoarthritis Pacemaker Psoriasis Sleep apnea CPAP WITH O2 AT 2L Surgical History History of cardiac cath had 4 total--last 2015 @ [facility] History of colonoscopy History of esophagogastroduodenoscopy (EGD) History of heart artery stent x6 stents total History of prostate biopsy malignant History of tooth extraction S/P CABG x 3 2008 @ [facility]---follows with Dr. 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: No Beliefs That Will Affect Care: None marital status: Current Living Situation: Spouse Current Living Situation Comment: /SON AND GRANDSON How many Children do You have: 2 Feels Safe at Home: Yes Safety Concerns: Feels Safe At This Time Assistive Devices: None Physical Exam Constitutional: WD/WN, vitals as above ENMT: external ear and nose normal, oropharynx normal Neck: trachea midline Musculoskeletal: Ankle: + effusion (Moderate left ankle swelling and edema), + limited ROM of ankle (Limited left ankle range of motion secondary to pain) and + joint line tenderness (ankle) (Severe tenderness over the left lateral malleolus.); ankle normal to inspection, no skin erythema and no ecchymosis Skin: no rashes, warm and dry Trauma: no evidence of skin trauma Neurologic: normal touch/pain/proprioception Psychiatric: A+Ox3, euthymic affect Speech: normal rate/rhythm/volume of speech Results & Data ([facility]) Vital Signs (Past 12 Hours) Vital Signs Temp Pulse Pulse Resp BP Pulse Ox 12/15/20 16:00 36.5 C 76 18 146/60 H 95 12/15/20 11:00 36.9 C 84 16 109/52 L 99 12/15/20 08:21 37.0 C 74 18 149/69 H 98 12/15/20 08:00 67 Diagnostic Findings 3 views of the left ankle reviewed. There may be a nondisplaced lateral malleolus fracture noted on AP and lateral views. The ankle mortise appears intact.
--- NOTE | 2020-12-15 17:07 | CT Scan Report ---
CT SCAN OF THE LEFT ANKLE WITHOUT IV CONTRAST CLINICAL HISTORY: Left ankle injury. COMPARISON STUDY: Radiographs of the left ankle dated 12/14/2020. TECHNIQUE: CT scan of the left ankle is performed from the distal tibia and fibula to the base of the foot. Images are reviewed in the axial, sagittal, and coronal planes. IV contrast was not administer ed for this examination. A dose lowering technique was utilized adhering to the principles of ALARA. CT DOSE: 184.24 mGy.cm FINDINGS: The skeletal structures are osteopenic. There is a minimally displaced oblique fracture of the lateral malleolus with overlying soft tissue edema. The distal tibia is intact. The ankle mortise is maintained. There is a joint effusion. Soft tissue edema is present around the ankle, greatest ov erlying the lateral malleolus. The Achilles tendon is intact as visualized. Generalized atrophy is ob served in the regional musculature. There is atherosclerotic calcification of the regional arteries. IMPRESSION: Distal fibular fracture as above with associated joint effusion and soft tissue edema. ACT 112: Negative or not required by law. Dictated: 12/15/2020 4:47 PM Transcribed: 12/15/2020 5:01 PM Carole [id number] [email or web address] Electronically signed by: Jose Rasmussen M.D. 12/15/2020 5:05 PM
--- NOTE | 2020-12-15 18:08 | Hospitalist Progress Note ---
Date of Service December 15, 2020 Assessment & Plan (1) Chest pain: (2) Coronary artery disease: Plan: Per FRANCHESKA lott's notes with addendum including succeeding assessment and plans: -Patient presenting from home for evaluation of left ankle pain after a mecha nical fall last evening and also developing exertional chest pain while ambulating with a walker. -In the ED, initial troponin negative, EKG demonstrates a paced rhythm. -Continue to cycle cardiac enzymes -N.p.o. after midnight for possible cardiac testing tomorrow -Neurology consult, input appreciated -Continue ASA and statin 12/15/2020 Troponin x3 - EKG no signs of acute ischemia or infarct Echocardiogram no signs of left wall motion abnormalities Imdur started by cardiology service No plans for further cardiac work-up at this point Appreciate cardiology service recommendations (3) Left ankle sprain: Plan: -No signs of fracture on x-ray CT ankle: IMPRESSION: Distal fibular fracture as above with associated joint effusion and soft tissue edema. -Splint in place, nonweightbearing left lower extremity PT OT evaluation Orthopedic service consulted (4) Chronic blood loss anemia: Plan: -Recent GI evaluation as per HPI -Hgb at baseline at 9.8 -Follows with Dr. Enrrique Christine for SNOW and iron infusions (5) Chronic diastolic CHF (congestive heart failure): Plan: -Appears euvolemic -Continue home furosemide (6) Pacemaker: (7) High-grade atrioventricular block: Plan: -No acute issues (8) CKD (chronic kidney disease), stage IV: Plan: -Baseline creatinine runs in the high ones, noted to be 1.7 today -Monitor renal functions (9) IDDM (insulin dependent diabetes mellitus): Plan: -Hgb A1c 5.2 10/2020 -On high doses of insulin at home, glycemic pharmacy consulted (10) Sleep apnea: Plan: -CPAP as per home settings (11) Psoriatic arthritis: Plan: -On weekly Enbrel injections (12) DVT prophylaxis: Plan: -SCDs due to chronic anemia and GI blood loss Admission and Anticipated Discharge Date Admission Date: December 14, 2020 Subjective Follow-up for chest pain, angle of fracture, etc. Seen sitting up in bedside chair, comfortable, not in distress Chest pain-free since admission No shortness of breath, palpitations, dizziness Still having significant left foot pain No other symptoms Review of Systems Review of Systems: all noted and negative except for above Physical Exam Physical Exam: General- oriented x 3, not in distress, speaks in sentences with no effort or accessory muscle use Eyes- anicteric Neck- no JVD Lungs- clear breath sounds bilaterally, no rales/wheezes Heart- normal rate, regular rhythm; no murmurs Abdomen- normal bowel sounds, nondistended, soft, nontender Extremities- no pretibial edema, no calf tenderness Left ankle-with moderate edema, tenderness, no erythema, mild warmth Splint in place Neuro- alert, oriented x 3; no gross focal neurologic deficits Skin- warm & dry Results & Data Results & Data ([facility]) Vital Signs (Past 12 Hours) Vital Signs Temp Pulse Pulse Resp BP Pulse Ox 12/15/20 16:00 36.5 C 76 18 146/60 H 95 12/15/20 15:00 70 12/15/20 11:00 36.9 C 84 16 109/52 L 99 12/15/20 08:21 37.0 C 74 18 149/69 H 98 12/15/20 08:00 67 all noted and reviewed including below (1) Left ankle sprain Encounter type: initial encounter Involved ligament of ankle: unspecified ligament Qualified Code(s): S93.402A - Sprain of unspecified ligament of left ankle, initial encounter
[2020-12-15] MEDS: ATORVASTATIN 40 MG TAB PO SCH (20:36)
[2020-12-16] MEDS ORDERED: HYDROCODONE/ACETAMOPHEN 5/325MG TAB PO PRN (08:07)
--- NOTE | 2020-12-16 08:12 | Orthopedic Progress Note ---
Date of Service December 16, 2020 Assessment & Plan (1) Closed fracture of left lateral malleolus: Plan: Posterior splint applied today. NWB LLE at all times over the next 5 weeks. PT/OT today before d/c home. F/U in [address] Molina's office for casting. Admission and Anticipated Discharge Date Admission Date: December 15, 2020 Subjective Left ankle still very painful. Had CT last night. Physical Exam Constitutional: WD/WN, vitals as above ENMT: external ear and nose normal, oropharynx normal Neck: trachea midline Musculoskeletal: Ankle: + effusion (Moderate left ankle swelling and edema), + limited ROM of ankle (Limited left ankle range of motion secondary to pain) and + joint line tenderness (ankle) (Severe tenderness over the left lateral malleolus.); ankle normal to inspection, no skin erythema and no ecchymosis Skin: no rashes, warm and dry Trauma: no evidence of skin trauma Neurologic: normal touch/pain/proprioception Psychiatric: A+Ox3, euthymic affect Speech: normal rate/rhythm/volume of speech Results & Data ([facility]) Vital Signs (Past 12 Hours) Vital Signs Temp Pulse Pulse Resp BP Pulse Ox 12/16/20 08:09 36.5 C 78 20 124/57 L 96 12/15/20 22:29 36.6 C 74 16 135/68 97 12/15/20 21:00 36.5 C 80 20 145/[address] results discussed with the patient. Nondisplaced lateral malleolus fx. Normal ankle mortise.
[2020-12-16] MEDS ORDERED: INSULIN GLARGINE SOLOSTAR 100 UNITS/ML 3 ML PEN SC SCH (09:00)
[2020-12-16] MEDS: INSULIN ASPART 100 UNITS/ML 3 ML PEN SC SCH ×2 (09:13→13:28)
--- NOTE | 2020-12-16 09:21 | Cardiology Progress Note ---
Date of Service December 16, 2020 Assessment & Plan (1) Chest pain: (2) Left ankle sprain: (3) Chronic kidney disease: (4) Chronic blood loss anemia: (5) Coronary artery disease: Plan: Patient admitted after several episodes of chest pain, while trying to support himself on one foot after mechanical fall/injury to his left ankle. He has a long history of crescendo angina when hbg falls below 10 with chronic blood loss anemia. He is receiving weekly iron transfusions. He was recently admitted for symptomatic anemia in Oct 2020, requiring 1 unit PRBC's. He had chest pain at that time, and it was agreed that he would be high risk for further cardiac testing/intervention due to CKD, anemia, and previously intolerant of dual antiplatelet therapy. Ongoing med management recommended for chronic angina and goal Hbg >10 Isosorbide resumed yesterday at 30 mg daily to aid with angina. He previously tolerated medication in 2016 and 2017, until it was stopped due to an episode of low BP. BP has been acceptable after first 2 doses. No recurrent chest pain since admission He notes dyspnea when trying to ambulate to restroom, but attributes this to difficult maneuvering with splint and ankle fracture. No SOB at rest. Continue home cardiac medications including ASA, statin, furosemide. He is not currently on REENA/ARB due to CKD. Continue isosorbide. Monitor Hbg. He is likely due for weekly iron infusion. As long as he remains chest pain free with PT/OT, can be discharged later today from cardiac standpoint. Case discussed with Dr. Arevalo Admission and Anticipated Discharge Date Admission Date: December 15, 2020 Supervising Physician Co-Signing Physician Notes Patient discharged prior to me having the opportunity to see him in person. Case discussed with Karin Zhou PA-C. Agree with assessment and plan as outlined. Subjective Patient resting comfortably out of bed in chair. left ankle wrapped. CT scan yesterday confirmed fracture. Not to bear weight on left foot. He notes dyspnea trying to ambulate to the bathroom. No chest pain. Awaiting PT/OT evaluation. No dizziness or lightheadedness. No labs done this morning. Review of Systems Review of Systems: All systems reviewed & are unremarkable except as noted in HPI & below Physical Exam Constitutional: WD/WN, vitals as above + obese; no acute distress Neck: + thick neck Respiratory: normal respiratory effort, lungs clear to auscultation Cardiovascular: Rate/Rhythm: regular rate and regular rhythm Heart Sounds: normal S1 and normal S2; no murmur Vessels: no JVD Extremities: + edema (1+ left ankle/foot edema; Trace right edema) Gastrointestinal (Abdomen): normal bowel sounds, soft, nontender, no hepatosplenomegaly Musculoskeletal: Extremities: + lower extremity abnormal to inspection (Left ankle wrapped/splinted) Left Neurologic: PERRL, EOMI, accommodation nl, no face palsy, no dysarthria Psychiatric: A+Ox3, euthymic affect Results & Data ([facility]) Vital Signs (Past 12 Hours) Vital Signs Temp Pulse Pulse Resp BP Pulse Ox 12/16/20 08:09 36.5 C 78 20 124/57 L 96 12/15/20 22:29 36.6 C 74 16 135/68 97 Laboratory Results Labs pending Diagnostic Findings Ankle CT report reviewed: IMPRESSION: Distal fibular fracture as above with associated joint effusion and soft tissue edema. Medications Administered Current Inpatient Medications Acetaminophen (Acetaminophen 325 Mg Tab) 650 mg PO Q4H PRN PRN Reason: Pain or Fever Stop: 01/13/21 19:12 Last Admin: 12/15/20 10:17 Dose: 650 mg Documented by: Hydrocodone Bitart/Acetaminophen (Hydrocodone/Acetamophen 5/325mg Tab) 1 tab PO Q4H PRN PRN Reason: Pain Stop: 12/30/20 08:06 Last Admin: 12/16/20 09:12 Dose: 1 tab Documented by: Allopurinol (Allopurinol 300 Mg Tab) 300 mg PO DAILY [place] Stop: 01/14/21 08:59 Last Admin: 12/15/20 10:11 Dose: 300 mg Documented by: Aspirin (Aspirin 81 Mg Ectab) 81 mg PO DAILY [facility] Stop: 01/14/21 08:59 Last Admin: 12/15/20 10:11 Dose: 81 mg Documented by: Atorvastatin Calcium (Atorvastatin 40 Mg Tab) 80 mg PO QPM [facility] Stop: 01/13/21 20:59 Last Admin: 12/15/20 20:36 Dose: 80 mg Documented by: Dextrose (Dextrose 50% 50 Ml Syringe) 25 - 50 ml IV UD PRN; Protocol PRN Reason: Hypoglycemia Protocol Stop: 01/13/21 17:14 Folic Acid (Folic Acid 1 Mg Tab) 1 mg PO DAILY [place] Stop: 01/14/21 08:59 Last Admin: 12/15/20 10:11 Dose: 1 mg Documented by: Furosemide (Furosemide 80 Mg Tab) 80 mg PO QAM [place] Stop: 01/14/21 08:59 Last Admin: 12/15/20 10:11 Dose: 80 mg Documented by: Glucagon (Glucagon For Inj 1 Mg Vial) 1 mg IM UD PRN; Protocol PRN Reason: Hypoglycemia Protocol Stop: 01/13/21 17:14 Glucose (Glucose 40% Gel 15 Gm Tube) 15 - 30 gm PO UD PRN; Protocol PRN Reason: Hypoglycemia Protocol Stop: 01/13/21 17:14 Glucose (Glucose 10 Tabs/Tube) 4 - 8 tabs PO UD PRN; Protocol PRN Reason: Hypoglycemia Protocol Stop: 01/13/21 17:14 Insulin Aspart (Insulin Aspart 100 Units/Ml 3 Ml Pen) 0 units SC ACHS [facility]MER Stop: 01/13/21 20:59 Last Admin: 12/16/20 09:13 Dose: 2 units Documented by: Insulin Glargine (Insulin Glargine Solostar 100 Units/Ml 3 Ml Pen) 25 units SC DAILY ELMER; Protocol Stop: 01/15/21 08:59 Last Admin: 12/16/20 09:14 Dose: 25 units Documented by: Isosorbide Mononitrate (Isosorbide [place] Extended Rel 30 Mg Tabcr) 30 mg PO QAM [facility] Stop: 01/14/21 11:14 Last Admin: 12/15/20 11:54 Dose: 30 mg Documented by: Miscellaneous (Carbohydrates For Hypoglycemia ) 15 - 30 gm PO UD PRN PRN Reason: Hypoglycemia Treatment Stop: 01/13/21 17:14 Last Admin: 12/14/20 19:39 Dose: 15 gm Documented by: Miscellaneous Information (Pharmacy Glycemic Mgmt Consult) 1 ea N/A UD PRN PRN Reason: Consult Stop: 01/13/21 19:12 Nitroglycerin (Nitroglycerin Sl 0.4 Mg/Tab Tab) 0.4 mg SL UD PRN PRN Reason: Chest Pain Stop: 01/13/21 19:12 Pantoprazole Sodium (Pantoprazole 40 Mg Tab) 40 mg PO BID [facility] Stop: 01/13/21 20:59 Last Admin: 12/15/20 20:36 Dose: 40 mg Documented by: (1) Chronic kidney disease Chronic kidney disease stage: unspecified stage Qualified Code(s): N18.9 - Chronic kidney disease, unspecified (2) Left ankle sprain Encounter type: initial encounter Involved ligament of ankle: unspecified ligament Qualified Code(s): S93.402A - Sprain of unspecified ligament of left ankle, initial encounter
--- NOTE | 2020-12-16 09:25 | Pharmacy Report ---
Pharmacy Glycemic Short Note 2 - Date of Service December 16, 2020 - Glycemic Short BSG Results (Last 24 hours): 12/15/20 12/15/20 12/15/20 11:20 17:04 20:09 POC Glucose 103 H 179 H 213 H 12/16/20 08:42 POC Glucose 79 OUTPATIENT ANTIDIABETIC REGIMEN: * Tresiba 120 units SC qAM * Novolog 30 units TIDM * Victoza * HbA1c 5.2% on 10/30/20 ASSESSMENT: 12/16 * Patient received total of 49 units of insulin yesterday, of which 30 units were basal * Fasting BSG 79 mg/dL - may reduce basal slightly to 25 units daily this AM * Continue same CF/CR for now 12/15 * 80 yo M with T2DM admitted with chest pain * Originally NPO, but now ordered a diet * Recent admit reviewed - patient requires significantly less insulin as an inpatient as compared to his reported outpatient regimen. * Will resume regimen similar to previous admission PLAN FOR INPATIENT GLYCEMIC CONTROL: * Hold outpatient oral diabetes medications * Basal insulin - decrease * Lantus 25 units SQ qAM * Bolus insulin * NovoLog per scale ACHS or Q6hrs while NPO * Goal Range: Low 110 mg/dL - High 140 mg/dL * Correction Factor: 20 mg/dL/unit * Nutritional / Prandial insulin per carb ratio of 1 unit per 7 grams CHO consumed PLAN FOR DISCHARGE: * Concern for possible repeat and/or severe hypoglycemia as an outpatient given low HbA1c in the context of significantly reduced insulin requirements as an inpatient as compared to reported outpatient regimen. Dose reduction(s) may be warranted, depending on outpatient BSG's
[2020-12-16] MEDS: ASPIRIN 81 MG ECTAB PO SCH (11:08)
[2020-12-16] MEDS: FUROSEMIDE 80 MG TAB PO SCH (11:08)
[2020-12-16] MEDS: allopurinoL 300 MG TAB PO SCH (11:08)
[2020-12-16] MEDS: ISOSORBIDE MONO EXTENDED REL 30 MG TABCR PO SCH (11:08)
[2020-12-16] MEDS: FOLIC ACID 1 MG TAB PO SCH (11:09)
[2020-12-16] MEDS: PANTOprazole 40 MG TAB PO SCH (11:09)
[2020-12-16 11:27] LABS: Hematocrit (blood only) 29.1 % (42-52); Mean Corpuscular Hemoglobin 27.7 pg (25-34); Mean Corpuscular Hgb Conc 30.9 g/dL (32-36); Mean Corpuscular Volume 89.5 fL (80-100); Mean Platelet Volume 8.5 fL (7.4-10.4); Platelet Count 250 K/uL (130-400); RDW Coefficient of Variation 19.2 % (11.5-14.5); Red Blood Count 3.25 M/uL (4.7-6.1); White Blood Count 10.05 K/uL (4.8-10.8)
[2020-12-16 11:49] LABS: BUN Creatinine Ratio 16.6 (10-20); Calcium 8.6 mg/dl (8.5-10.1); Creatinine Clr Calc Pharmacy 36.7 ml/min; Est GFR (African American) 37.8 ml/min; Est GFR (Non-African American) 32.6 ml/min
--- NOTE | 2020-12-16 14:38 | Electrocardiogram Report ---
Test Reason : Blood Pressure : / mmHG Vent. Rate : 073 BPM Atrial Rate : 073 BPM P-R Int : 212 ms QRS Dur : 160 ms QT Int : 474 ms P-R-T Axes : 059 -84 054 degrees QTc Int : 522 ms Atrial-sensed ventricular-paced rhythm with prolonged AV conduction with occasional Premature ventric ular complexes Abnormal ECG When compared with ECG of 15-DEC-2020 06:31, Premature ventricular complexes are now Present Vent. rate has increased BY 6 BPM Confirmed by Devin Scott ([id number]) on 12/16/2020 2:37:59 PM Referred By: REFERRED SELF Confirmed By:Brice Scott
--- NOTE | 2020-12-17 10:12 | Hospitalist Progress Note ---
Date of Service December 17, 2020 delayed entry date of service 12/16/20 Assessment & Plan (1) Chest pain: (2) Coronary artery disease: Plan: Per FRANCHESKA lott's notes with addendum including succeeding assessment and plans: -Patient presenting from home for evaluation of left ankle pain after a mechanical fall last evening and also developing exertional chest pain while ambulating with a walker. -In the ED, initial troponin negative, EKG demonstrates a paced rhythm. -Continue to cycle cardiac enzymes -N.p.o. after midnight for possible cardiac testing tomorrow -Neurology consult, input appreciated -Continue ASA and statin 12/16/2020 Troponin x3 - EKG no signs of acute ischemia or infarct Echocardiogram no signs of left wall motion abnormalities Imdur started by cardiology service No plans for further cardiac work-up at this point Appreciate cardiology service recommendations (3) Left ankle sprain: Plan: -No signs of fracture on x-ray CT ankle: IMPRESSION: Distal fibular fracture as above with associated joint effusion and soft tissue edema. -Splint in place, nonweightbearing left lower extremity Orthopedic service consulted PT: recommending manual wheelchair with leg rest, rolling walker only with transfers, walking short distances - ff up with Ortho in 1 week for casting (4) Chronic blood loss anemia: Plan: -Recent GI evaluation as per HPI -Hgb at baseline at 9.8 -Follows with Dr. Enrrique Christine for SNOW and iron infusions (5) Chronic diastolic CHF (congestive heart failure): Plan: -Appears euvolemic -Continue home furosemide (6) Pacemaker: (7) High-grade atrioventricular block: Plan: -No acute issues (8) CKD (chronic kidney disease), stage IV: Plan: -Baseline creatinine runs in the high ones stable (9) IDDM (insulin dependent diabetes mellitus): Plan: -Hgb A1c 5.2 10/2020 -On high doses of insulin at home, glycemic pharmacy consulted (10) Sleep apnea: Plan: -CPAP as per home settings (11) Psoriatic arthritis: Plan: -On weekly Enbrel injections (12) DVT prophylaxis: Plan: -SCDs due to chronic anemia and GI blood loss d/c home ff up with PCP in 1 week ff up with Ortho in 1 week for casting Admission and Anticipated Discharge Date Admission Date: December 15, 2020 Subjective ff up for chest pain, etc seen resting in bedside chair, comfortable states he feels fine overall no recurrence of chest pain no dyspnea, dizziness, palpitations left ankle pain well controlled no other symptoms Review of Systems Review of Systems: all noted and negative except for above Physical Exam Physical Exam: General- oriented x 3, not in distress, speaks in sentences with no effort or accessory muscle use Eyes- anicteric Neck- no JVD Lungs- clear breath sounds bilaterally, no rales/wheezes Heart- normal rate, regular rhythm; no murmurs Abdomen- normal bowel sounds, nondistended, soft, nontender Extremities- no pretibial edema, no calf tenderness left foot: posterior splint in place Neuro- alert, oriented x 3; no gross focal neurologic deficits Skin- warm & dry Results & Data Results & Data ([facility]) Vital Signs (Past 12 Hours) all noted and reviewed including below (1) Left ankle sprain Encounter type: initial encounter Involved ligament of ankle: unspecified ligament Qualified Code(s): S93.402A - Sprain of unspecified ligament of left ankle, initial encounter
--- NOTE | 2020-12-17 10:17 | Discharge Summary ---
Date of Service December 17, 2020 Admission HPI Per Admitting Provider 80-year-old male with PMH IDDM, CKD stage IV, chronic diastolic CHF, KATHE on CPAP, Mobitz type I AV block s/p pacemaker, chronic GI blood loss and iron deficiency anemia, CAD s/p CABG and stenting, psoriatic arthritis, and other problems listed below who presents to the ED for evaluation of left ankle pain and chest pain. Of note, patient recently admitted to [facility] 10/29 through 11/02 for acute on chronic blood loss anemia. Required PRBC transfusion. EGD showed a single bleeding angiodysplastic lesion in the jejunum that was treated with APC and clips. 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 Patient underwent EGD on 11/14 and had AVM cauterized and clipped. Patient continues to follow with heme-onc for iron infusions. Patient reports that last evening he slipped on some wet grass and twisted his left ankle. He reports having a lot of pain and inability bear weight. Patient was using a walker to ambulate this morning and was exerting himself by doing so. He reports developing a substernal chest pain. He describes a dull ache. He also had associated shortness of breath and diaphoresis. Patient reports the symptoms are similar to when he is anemic and needs blood. Patient asked his son to bring him to the ED to be evaluated for left ankle pain. Patient denies any associated lightheadedness, dizziness, loss of consciousness with his fall yesterday. He reports his stools are black at baseline due to iron. Denies noticing any bright red bleeding. No abdominal pain, nausea, vomiting, diarrhea. Denies fevers and chills. No cough or sputum production. Denies urinary symptoms. In the ED, Hgb is found to be 9.8 (at baseline for the patient). Left ankle imaging is negative for fracture. Initial troponin is negative, EKG demonstrates a paced rhythm. Admission Exam (Per Admitting) Constitutional Constitutional: WD/WN, vitals as above + obese; no acute distress Eyes: PERRL, conjunctivae normal, anicteric sclerae ENMT: external ear and nose normal, oropharynx normal Respiratory: normal respiratory effort, lungs clear to auscultation Cardiovascular: Rate/Rhythm: regular rate and regular rhythm Vessels: normal peripheral pulses Extremities: + edema (+2 pitting edema BLE -at baseline per patient) Gastrointestinal (Abdomen): normal bowel sounds, soft, nontender, no hepatosplenomegaly Musculoskeletal: no cyanosis or clubbing, extremities motor strength 5/[address] in [address] Skin: no rashes, warm and dry Neurologic: PERRL, EOMI, accommodation nl, no face palsy, no dysarthria Psychiatric: A+Ox3, euthymic affect Discharge Data Consultations 12/14/20 16:16 ED Decision to Admit Stat 12/14/20 19:13 Consult Cardiology Routine Consult Orthopedic Surgery Routine Hospital Course (1) Chest pain: (2) Coronary artery disease: Per FRANCHESKA lott's notes with addendum including succeeding assessment and plans: -Patient presenting from home for evaluation of left ankle pain after a mechanical fall last evening and also developing exertional chest pain while ambulating with a walker. -In the ED, initial troponin negative, EKG demonstrates a paced rhythm. -Continue to cycle cardiac enzymes -N.p.o. after midnight for possible cardiac testing tomorrow -Neurology consult, input appreciated -Continue ASA and statin 12/16/2020 Troponin x3 - EKG no signs of acute ischemia or infarct Echocardiogram no signs of left wall motion abnormalities Imdur started by cardiology service No plans for further cardiac work-up at this point Appreciate cardiology service recommendations (3) Closed fibular fracture: Distal fibular fracture as above with associated joint effusion and soft tissue edema. -Splint in place, nonweightbearing left lower extremity Orthopedic service consulted PT: recommending manual wheelchair with leg rest, rolling walker only with transfers, walking short distances - ff up with Ortho in 1 week for casting [place] ordered for PRN pain (4) Chronic blood loss anemia: -Recent GI evaluation as per HPI -Hgb at baseline at 9.8 -Follows with Dr. Enrrique Christine for SNOW and iron infusions (5) Chronic diastolic CHF (congestive heart failure): -Appears euvolemic -Continue home furosemide (6) Pacemaker: (7) High-grade atrioventricular block: -No acute issues (8) CKD (chronic kidney disease), stage IV: -Baseline creatinine runs in the high ones stable (9) IDDM (insulin dependent diabetes mellitus): -Hgb A1c 5.2 10/2020 -On high doses of insulin at home, glycemic pharmacy consulted (10) Sleep apnea: -CPAP as per home settings (11) Psoriatic arthritis: -On weekly Enbrel injections (12) DVT prophylaxis: -SCDs due to chronic anemia and GI blood loss d/c home ff up with PCP in 1 week ff up with Ortho in 1 week for casting
== END 2020-12-16 15:32 | disposition home health service (06) | DRG 303 ==
LOC: ED 14:53 → 2S 14:53 → 3N 12-15 17:58

== ENCOUNTER 2021-06-23 15:51 | Inpatient (IN) ==
--- NOTE | 2021-06-23 16:36 | XRay Report ---
SINGLE VIEW CHEST CLINICAL HISTORY: Generalized weakness FINDINGS: An AP, portable, upright chest radiograph is compared to study dated 12/14/2020. The examin ation is degraded by portable technique and apical lordotic positioning. A left subclavian central ve nous infusion port and a 2-lead cardiac pacemaker are unchanged in position. The patient is status po st midline sternotomy. The heart is enlarged noting atherosclerotic calcification of the thoracic aor ta. The pulmonary vasculature is noncongested. Chronic additional thickening is similar to previous. Mild atelectasis is noted at the lung bases appear The lungs and pleural spaces are otherwise clear. No pneumothorax is seen. The skeletal structures are osteopenic. The bony thorax is grossly intact. IMPRESSION: 1. Cardiomegaly and cardiac pacemaker with no radiographic evidence of congestive failure. 2. No airspace consolidation or large pleural effusion is identified. ACT 112: Negative or not required by law. Electronically signed by: Jose Rasmussen M.D. 06/23/2021 4:34 PM
[2021-06-23 17:07] LABS: Basophils # (auto) 0.03 K/uL (0-0.2); Basophils % (auto) 0.3 %; Eosinophils # (auto) 0.18 K/uL (0-0.5); Eosinophils % (auto) 1.6 %; Hematocrit (blood only) 25.8 % (42-52); Immature Granulocytes # (auto) 0.04 K/uL (0.00-0.02); Immature Granulocytes % (auto) 0.4 %; Lymphocytes # (auto) 0.93 K/uL (1.2-3.4); Lymphocytes % (auto) 8.4 %; Mean Corpuscular Volume 96.6 fL (80-100); Mean Platelet Volume 8.7 fL (7.4-10.4); Monocytes # (auto) 0.39 K/uL (0.11-0.59); Monocytes % (auto) 3.5 %; Neutrophils # (auto) 9.52 K/uL (1.4-6.5); Neutrophils % (auto) 85.8 %; Platelet Count 219 K/uL (130-400); RDW Coefficient of Variation 17.3 % (11.5-14.5); RDW Standard Deviation 60.5 fL (36.4-46.3); Red Blood Count 2.67 M/uL (4.7-6.1); White Blood Count 11.09 K/uL (4.8-10.8)
[2021-06-23 17:31] LABS: Albumin Globulin Ratio 1.1 (0.9-2); BUN Creatinine Ratio 20.8 (10-20); Bilirubin,Total 0.3 mg/dl (0.2-1.0); Calcium 8.4 mg/dl (8.5-10.1); Creatinine Clr Calc Pharmacy 55.7 ml/min; Est GFR (African American) 60.6 ml/min; Est GFR (Non-African American) 52.3 ml/min; Globulin 2.8 gm/dl (2.5-4.0); Potassium 4.3 mmol/L (3.5-5.1); Total Protein 5.8 gm/dl (6.0-8.3)
[2021-06-23 17:52] LABS: Appearance Urine Clear (Clear); Bacteria Urine Automated Negative (Negative); Bilirubin Urine Negative (Negative); Blood Urine Negative (Negative); Color Urine Yellow; Epithelial Cell Urine Auto >30 /lpf (0-5); Glucose Urine UA Negative (Negative); Ketones Urine Negative (Negative); Leukocyte Esterase Urine 2+ (Negative); Nitrite Urine Negative (Negative); Protein Urine 3+ (Negative); RBC Urine Automated 0-4 /hpf (0-4); Specific Gravity Urine 1.018 (1.000-1.030); Urobilinogen Urine Negative (Negative); WBC Urine Automated >30 /hpf (0-5)
[2021-06-23 18:03] LABS: Renal Epithelial Cells Urine 0-5 /lpf (0-5)
[2021-06-23] MEDS ORDERED: FUROSEMIDE 40 MG/4 ML VIAL IV ONE (18:55)
[2021-06-23] MEDS ORDERED: SODIUM CHLORIDE 0.9% 250 ML IV PRN ×2 (18:55→20:11)
[2021-06-23 19:59] LABS: Magnesium 1.8 mg/dl (1.7-2.4)
[2021-06-23] MEDS ORDERED: PANTOprazole 80 MG in DEXTROSE 5% 100 ML IV ONE ×2 (20:10→21:00)
--- NOTE | 2021-06-23 20:13 | History & Physical Report ---
Date of Service June 23, 2021 Assessment & Plan (1) SOB (shortness of breath): Plan: Multifactorial : Decompensated heart failure, right-sided heart failure complaints, history diastolic dysfunction, underlying pulmonary hypertension secondary to COPD/KATHE on CPAP Symptomatic anemia (hemoglobin drop from baseline secondary to recurrent UGI B, history of Henning's esophagus/AVM) Leg swelling secondary to CHF rule out DVT Complicated UTI history of recurrent prostate cancer status post radiation No sepsis for now no sepsis CAD status post CABG sp stent/ PVD/TIA 2AVB sp PPM hypertension, stable hyperlipidemia, on statin Rx DM2 insulin requiring, well-controlled as of recent hemoglobin A1c of 6.14 February 2021 CRI, creatinine better than baseline difficult intubation as per records past tobacco abuse PCU Diuretic Rx Strict I/Os, daily weights, CHF education, fluid restriction Update TTE, Cardiology consult Re: Decompensated heart failure Outpatient follow-up visit with sleep medicine (last follow-up was 2018 as per records, repeat polysomnography recommended at that time given patient's old machine as per note) IV PPI for UGI B Transfuse PRBC to maintain hemoglobin greater than 10 (Patient adamant that he feels short of breath whenever his hemoglobin is below 10) Patient aspirin may need to be held indefinitely given recurrent GI bleed resulting in progressive anemia. GI consult Re: UGI B N.p.o. until patient seen by GI in a.m. in anticipation of procedure LE venous Dopplers rule out DVT Urine CS, Ceftriaxone for complicated UTI Basal insulin adjusted for n.p.o. status after midnight, ISS BG goal [id number], update hemoglobin A1c DVT prophylaxis. SCDs RE U GIB Full code Text document was generated using [employer] voice recognition software. It may contain grammatical or spelling errors. Kindly contact undersigned for clarification of any documentation item in question. History of Present Illness Chief Complaint: Exertional shortness of breath Primary Care Provider: Nicola Prado MD History obtained from patient and records. Medical history significant for chronic diastolic HF as per records. CAD status post CABG sp stent, PVD, 2 AVB status post PPM, hypertension, hyperlipidemia, DM2 insulin requiring, hx TIA,chronic respiratory failure secondary to COPD/pulmonary hypertension on home O2, KATHE on CPAP, CRI (baseline creatinine 2s), chronic anemia (baseline hemoglobin 11) periodic outpatient Venofer injections, prostate cancer status post radiation, psoriatic arthropathy as per records, difficult intubation as per records, hx Henning's esophagus, AVM, diverticulosis/polyps, past tobacco abuse Last confinement December 2020 for chest pain. Imdur added to patient's regimen. Patient seen by outpatient cardiology provider 3 weeks ago. Patient complained of intermittent achy substernal pain, almost daily not related to exertion. Discomfort not burning as per patient. Chronic black stools without unusual abdominal pain complaints as per patient. Symptoms attributed to atypical discomfort possibly GI related by provider for which PPI prescribed. Persistent discomfort despite compliance with prescription as per patient. In the last 2 days, patient noted shortness of breath worse with exertion along with 7 pound weight gain in about a week. Leg swelling noted as well. Patient also with urinary retention complaints without fever/chills. Patient compliant with home meds. Denies dietary indiscretion. Compliant with home CPAP. Patient consulted ER for evaluation. IV Lasix administered at the ER Medical Historyas above May 2021 EGD Henning's esophagus, gastritis 2020 video capsule endoscopy showed AVM 2020 colonoscopy showed polyps, diverticulosis, internal hemorrhoids, ascending colon lipoma SURGERIES: CABG, prostate biopsy. A port placement, ICD/PPM FAMILY HISTORY: Heart disease. Diabetes, stomach cancer PERSONAL AND SOCIAL HISTORY:Past tobacco abuse. No chronic intake of alcoholic beverages. 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 Allergies Allergy/AdvReac Type Severity Reaction Status Date / Time methylprednisolone AdvReac Severe AMS Verified 06/23/21 17:35 hydromorphone [From Dilaudid] AdvReac Intermediate Nausea Verified 06/23/21 17:35 prednisone AdvReac Intermediate INCREASE Verified 06/23/21 17:35 BLOOD SUGAR Home Medications Medication Instructions Recorded Confirmed Type atorvastatin 80 mg tablet 80 mg PO QPM 11/13/17 06/23/21 History fluticasone propionate 50 2 spray INTRANASAL DAILY 11/13/17 06/23/21 History mcg/actuation nasal spray,suspension (Flonase Allergy Relief) insulin degludec 200 unit/mL (3 120 unit SUBCUT QAM 11/13/17 06/23/21 History mL) subcutaneous pen (Tresiba FlexTouch U-200 insulin) nitroglycerin 0.4 mg sublingual 0.4 mg SUBLINGUAL UD PRN 11/13/17 06/23/21 History tablet (Nitrostat) etanercept 50 mg/mL (1 mL) 1 dose SUBCUT WK 04/10/18 06/23/21 History subcutaneous pen injector (Enbrel SureClick) furosemide 80 mg tablet (Lasix) 80 mg PO QAM 04/20/18 06/23/21 History omeprazole 20 mg tablet,delayed 20 mg PO BID #60 tab 10/14/19 06/23/21 Rx release allopurinol 300 mg tablet 300 mg PO DAILY 06/09/20 06/23/21 History aspirin 81 mg tablet,delayed 81 mg PO DAILY 06/09/20 06/23/21 History release (Aspirin Low Dose) folic acid 1 mg tablet 1 mg PO DAILY 06/09/20 06/23/21 History insulin aspart U-100 100 unit/mL 30 unit SUBCUT TIDM 10/29/20 06/23/21 History (3 mL) subcutaneous pen (Novolog Flexpen U-100 Insulin aspart) liraglutide 0.6 mg/0.1 mL (18 mg/3 1.8 mg SUBCUT QAM 10/29/20 06/23/21 History mL) subcutaneous pen injector (Victoza 3-Kei) hydrocodone 5 mg-acetaminophen 325 1 tab PO Q4H PRN #10 tab 12/16/20 06/23/21 Rx mg tablet isosorbide mononitrate 30 mg 30 mg PO QAM 30 Days #30 tab 12/16/20 06/23/21 Rx tablet,extended release 24 hr Lactobacillus acidophilus 10 10,000 mmu cells PO DAILY 05/19/21 06/23/21 History billion cell capsule (Probiotic) peppermint oil 90 mg 90 mg PO DAILY 05/19/21 06/23/21 History capsule,delayed,extended release (IBgard) Past Med/Surg History Medical History Anemia IRON INFUSIONS EVERY OTHER WEEK Chronic diastolic CHF (congestive heart failure) Chronic GI bleeding Chronic obstructive pulmonary disease CKD (chronic kidney disease), stage IV Diabetes mellitus, type 2 Diverticular disease GERD (gastroesophageal reflux disease) History of colon polyps History of COVID-19 02/2021>NO SYMPTOMS *TESTED AT [facility] History of prostate cancer radiation seeds Hx of gout Hyperlipidemia Hypertension IDDM (insulin dependent diabetes mellitus) Obesity On home oxygen therapy 2L N/C AT HS WITH CPAP Osteoarthritis Pacemaker Psoriasis Sleep apnea CPAP WITH O2 AT 2L Surgical History History of cardiac cath had 4 total--last 2015 @ [facility] History of colonoscopy History of esophagogastroduodenoscopy (EGD) History of heart artery stent x6 stents total History of prostate biopsy malignant History of tooth extraction S/P CABG x 3 2008 @ [facility]---follows with Dr. Rolon Status post LASIK surgery of both eyes Family History Son Family history of diabetes mellitus Other No family history of adverse response to anesthesia Social History Smoking Status: Former smoker Tobacco Type: Cigarettes Second Hand Exposure: No; Hx Alcohol Use: No Hx Substance Use: No Preferred Language: Senegalese Communication Ability: Effective Applications Intern Required: No Beliefs That Will Affect Care: None marital status: Current Living Situation: Family Current Living Situation Comment: /SON AND GRANDSON How many Children do You have: 2 Other Information That Helps Us Care for You: No Feels Safe at Home: Yes Safety Concerns: Feels Safe At This Time Assistive Devices: Glasses and Oxygen - at Night Review of Systems Review of Systems: As per HPI, all other systems reviewed and negative Physical Exam Physical Exam: GENERAL: Comfortable, morbidly obese, pleasant, pleasant, no respiratory distress SKIN: Pallor, warm HEENT: Pale palpebral conjunctivae, no ptosis, dry buccal mucosa NECK : Supple, short neck, no tenderness CHEST : Decreased breath sounds, no tenderness HEART : RRR, no obvious murmurs ABDOMEN: distention, nontender EXTREMITIES : Bilateral LE swelling, no LE tenderness, no other conspicuous deformities noted NEUROLOGIC : Coherent, no facial asymmetry, no other gross focality Results & Data Results & Data ([facility]) Vital Signs (Past 12 Hours) Vital Signs Temp Pulse Pulse Resp BP BP Pulse Ox 06/23/21 18:40 82 18 06/23/21 18:30 73 16 145/64 H 06/23/21 18:20 75 19 06/23/21 18:10 84 16 06/23/21 18:00 69 19 131/71 05/10/22 17:50 75 13 06/23/21 17:44 75 22 110/57 L 94 06/23/21 17:40 82 19 06/23/21 17:30 82 23 110/57 L 06/23/21 17:20 83 15 06/23/21 17:11 87 16 06/23/21 17:00 83 20 127/50 L 06/23/21 16:56 90 12 06/23/21 15:53 36.4 C L 80 22 144/56 H 98 Laboratory Results Laboratory Results WBC 11.09 K/uL (4.8-10.8) H 06/23/21 16:55 RBC 2.67 M/uL (4.7-6.1) L 06/23/21 16:55 Hgb 8.0 g/dL (14.0-18.0) L 06/23/21 16:55 Hct 25.8 % (42-52) L 06/23/21 16:55 MCV 96.6 fL (80-100) 06/23/21 16:55 MCH 30.0 pg (25-34) 06/23/21 16:55 MCHC 31.0 g/dL (32-36) L 06/23/21 16:55 RDW Std Deviation 60.5 fL (36.4-46.3) H 06/23/21 16:55 RDW Coeff of Joey 17.3 % (11.5-14.5) H 06/23/21 16:55 Plt Count 219 K/uL (130-400) 06/23/21 16:55 MPV 8.7 fL (7.4-10.4) 06/23/21 16:55 Immature Gran % (Auto) 0.4 % 06/23/21 16:55 Neut % (Auto) 85.8 % 06/23/21 16:55 Lymph % (Auto) 8.4 % 06/23/21 16:55 [place] % (Auto) 3.5 % 06/23/21 16:55 Eos % (Auto) 1.6 % 06/23/21 16:55 Baso % (Auto) 0.3 % 06/23/21 16:55 Neut # (Auto) 9.52 K/uL (1.4-6.5) H 06/23/21 16:55 Lymph # (Auto) 0.93 K/uL (1.2-3.4) L 06/23/21 16:55 [place] # (Auto) 0.39 K/uL (0.11-0.59) 06/23/21 16:55 Eos # (Auto) 0.18 K/uL (0-0.5) 06/23/21 16:55 Baso # (Auto) 0.03 K/uL (0-0.2) 06/23/21 16:55 Immature Gran # (Auto) 0.04 K/uL (0.00-0.02) H 06/23/21 16:55 Sodium 138 mmol/L (136-145) 06/23/21 16:55 Potassium 4.3 mmol/L (3.5-5.1) 06/23/21 16:55 Chloride 106 mmol/L (98-107) 06/23/21 16:55 Carbon Dioxide 25 mmol/L (21-32) 06/23/21 16:55 Anion Gap 7 (3-11) 06/23/21 16:55 BUN 27 mg/dl (6-23) H 06/23/21 16:55 Creatinine 1.30 mg/dl (0.6-1.4) 06/23/21 16:55 Est Cr Clr Drug Dosing 55.7 ml/min 06/23/21 16:55 Est GFR ( Amer) 60.6 ml/min 06/23/21 16:55 Est GFR (Non-Af Amer) 52.3 ml/min 06/23/21 16:55 BUN/Creatinine Ratio 20.8 (10-20) H 06/23/21 16:55 Glucose 128 mg/dl (70-99(Fasting)) H 06/23/21 16:55 Calcium 8.4 mg/dl (8.5-10.1) L 06/23/21 16:55 Magnesium 1.8 mg/dl (1.7-2.4) 06/23/21 16:55 Total Bilirubin 0.3 mg/dl (0.2-1.0) 06/23/21 16:55 AST 13 U/L (13-39) 06/23/21 16:55 ALT 16 U/L (7-52) 06/23/21 16:55 Alkaline Phosphatase 100 U/L (34-104) 06/23/21 16:55 B-Natriuretic Peptide 286 pg/ml (0-100) H 06/23/21 16:55 Total Protein 5.8 gm/dl (6.0-8.3) L 06/23/21 16:55 Albumin 3.0 gm/dl (3.4-5.0) L 06/23/21 16:55 Globulin 2.8 gm/dl (2.5-4.0) 06/23/21 16:55 Albumin/Globulin Ratio 1.1 (0.9-2) 06/23/21 16:55 Urine Color Yellow 06/23/21 15:58 Urine Appearance Clear (Clear) 06/23/21 15:58 Urine pH 5.0 (4.5-7.5) 06/23/21 15:58 Ur Specific [place] 1.018 (1.000-1.030) 06/23/21 15:58 Urine Protein 3+ (Negative) H 06/23/21 15:58 Urine Glucose (UA) Negative (Negative) 06/23/21 15:58 Urine Ketones Negative (Negative) 06/23/21 15:58 Urine Blood Negative (Negative) 06/23/21 15:58 Urine Nitrite Negative (Negative) 06/23/21 15:58 Urine Bilirubin Negative (Negative) 06/23/21 15:58 Urine Urobilinogen Negative (Negative) 06/23/21 15:58 Ur Leukocyte Esterase 2+ (Negative) H 06/23/21 15:58 Urine WBC (Auto) >30 /hpf (0-5) H 06/23/21 15:58 Urine RBC (Auto) 0-4 /hpf (0-4) 06/23/21 15:58 U Hyaline Cast (Auto) 1-5 /lpf (0-5) 06/23/21 15:58 U Epithel Cells (Auto) >30 /lpf (0-5) H 06/23/21 15:58 Urine Bacteria (Auto) Negative (Negative) 06/23/21 15:58 Ur Renal Epithelial Cell 0-5 /lpf (0-5) 06/23/21 15:58 Crossmatch See Detail 06/23/21 19:14 Impressions Chest X-Ray 06/23/21 16:06 SINGLE VIEW CHEST CLINICAL HISTORY: Generalized weakness FINDINGS: An AP, portable, upright chest radiograph is compared to study dated 12/14/2020. The examination is degraded by portable technique and apical lordotic positioning. A left subclavian central venous infusion port and a 2- lead cardiac pacemaker are unchanged in position. The patient is status post midline sternotomy. The heart is enlarged noting atherosclerotic calcification of the thoracic aorta. The pulmonary vasculature is noncongested. Chronic additional thickening is similar to previous. Mild atelectasis is noted at the lung bases appear The lungs and pleural spaces are otherwise clear. No pneumothorax is seen. The skeletal structures are osteopenic. The bony thorax is grossly intact. IMPRESSION: 1. Cardiomegaly and cardiac pacemaker with no radiographic evidence of congestive failure. 2. No airspace consolidation or large pleural effusion is identified. ACT 112: Negative or not required by law. Electronically signed by: Jose Rasmussen M.D. 06/23/2021 4:34 PM Diagnostic Findings EKG as per my interpretation: Rate 75, paced rhythm
[2021-06-23] MEDS ORDERED: PANTOPRAZOLE BOLUS/DRIP 1 EA IV STA (20:16)
[2021-06-23 20:21] LABS: Troponin I High Sensitivity 9.6 pg/ml (0-20)
[2021-06-23] MEDS: cefTRIAXone SODIUM 1,000 MG/50 ML BAG IV ONE ×2 (21:01→21:35)
[2021-06-23] MEDS: PANTOprazole 40 MG in DEXTROSE 5% 100 ML IV SCH (21:01)
--- NOTE | 2021-06-23 21:49 | Emergency Department Note ---
Impression & Plan SOB (shortness of breath), Anemia, CHF (congestive heart failure) ED Provider Note INFORMANT: Patient ED PROVIDER(S): Clifford Alejandra MD CHIEF COMPLAINT: Shortness of breath PLAN: Disposition: Admitted Condition: Good Outpatient prescription management: none Referral: None MEDICAL DECISION MAKING: Patient presented because of shortness of breath and decreased urination. Has had weight gain. The patient is very dyspneic with minimal exertion. Has a history of CHF and significant cardiac issues. Patient had blood work, imaging, EKG and urinalysis performed. He had a subtle elevation of his white blood cell count but similar to prior. He was significantly more anemic. He notes that he has had blood transfusions in the past. The patient's troponin was negative. His BNP was mildly elevated. Given his weight gain and edema coupled with the elevated BNP there is concerns for CHF. He was given IV Lasix. The patient will need further management in the hospital. Consultation was made with Dr. Jamal Carrion, [facility] Hospitalist service. Patient was evaluated in the ER admitted for further management. Triage Nursing notes reviewed and agree them. Vital Signs: reviewed and remarkable for no significant abnormalities Differential diagnosis: Reactive airway disease, pneumonia, pneumothorax, COPD, CHF, infections, cardiac ischemia, pulmonary embolism, musculoskeletal, gastrointestinal, as well as other pathologies. Diagnostics interpreted by me: ECG: Twelve-lead ECG reveals atrial sensed ventricular paced rhythm at 73 bpm. There is no PVCs. Cardiac Monitoring:Cardiac monitoring ordered by me: The patient was placed on continuous cardiac monitoring and observed. It revealed a paced rhythm rhythm at 79 beats per minute without ectopy or evidence of dysrhythmia. Imaging studies: Chest x-ray:1. Cardiomegaly and cardiac pacemaker with no radiographic evidence of congestive failure. 2. No airspace consolidation or large pleural effusion is identified. HPI: The patient is a 80 year old male who presents to the Emergency Room with complaints of shortness of breath. This started over the last week and is worsening. The patient also notes the following associated symptoms, dyspnea on exertion, chronic neck pain, 6 to 7 pound weight gain, decreased urination despite taking his Lasix. The patient has found no relieving factors. Current pain is rated as 3/10. Pt denies LOC, headache, fevers, chills, diaphoresis, visual changes, chest pain, nausea, vomiting, abdominal pain, back pain, melena, hematochezia, numbness, weakness, lymphadenopathy, rash, or other complaints. ROS: See above HPI for pertinent positives & negatives. A total of 10 systems reviewed and were otherwise negative. PAST MEDICAL HISTORY:See Below , CHF, CAD PAST SURGICAL HISTORY:See Below, CABG FAMILY HISTORY:See Below SOCIAL HISTORY:See Below, former smoker HOME MEDICATIONS:See Below ALLERGIES:See Below VITALS:See Below PHYSICAL EXAMINATION: GENERAL: Awake, alert, mildly dyspneic-appearing, in no distress HENT: Normocephalic, atraumatic. Oropharynx unremarkable. EYES: Normal conjunctiva. Sclera non-icteric. NECK: Inspection normal. Non-tender. Supple. No nuchal rigidity. FROM. No masses. RESPIRATORY: Few scattered rales otherwise clear to auscultation. No wheezes. Mildly increased respiratory effort. Moderately short of breath with ambulation of 8 to 10 feet. CARDIAC: Normal rate. Normal rhythm. No murmurs. No rubs. Extremities warm and well perfused. Pulses equal. No JVD. GI: Soft, non-distended. No tenderness to palpation. No rebound or guarding. No masses. RECTAL: Deferred. MUSCULOSKELETAL: Atraumatic. Chest examination reveals no tenderness. The back is symmetrical on inspection without obvious abnormality. There is no CVA tenderness to palpation. No joint edema. LOWER EXTREMITIES: Calves are equal size bilaterally and non-tender. 2+ edema. No discoloration. NEURO: Normal sensorium. No sensory or motor deficits noted. SKIN: No rash or jaundice noted. Clifford Alejandra MD Past Med/Surg History Medical History Anemia IRON INFUSIONS EVERY OTHER WEEK Chronic diastolic CHF (congestive heart failure) Chronic GI bleeding Chronic obstructive pulmonary disease CKD (chronic kidney disease), stage IV Diabetes mellitus, type 2 Diverticular disease GERD (gastroesophageal reflux disease) History of colon polyps History of COVID-19 02/2021>NO SYMPTOMS *TESTED AT [facility] History of prostate cancer radiation seeds Hx of gout Hyperlipidemia Hypertension IDDM (insulin dependent diabetes mellitus) Obesity On home oxygen therapy 2L N/C AT HS WITH CPAP Osteoarthritis Pacemaker Psoriasis Sleep apnea CPAP WITH O2 AT 2L Surgical History History of cardiac cath had 4 total--last 2016 @ [facility] History of colonoscopy History of esophagogastroduodenoscopy (EGD) History of heart artery stent x6 stents total History of prostate biopsy malignant History of tooth extraction S/P CABG x 3 2008 @ [facility]---follows with Dr. 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 Beliefs That Will Affect Care: None marital status: Current Living Situation: Spouse Current Living Situation Comment: /SON [facility] GRANDSON How many Children do You have: 2 Feels Safe at Home: Yes Assistive Devices: CPAP, Denture - Lower, Glasses, Oxygen - at Night and Walker Allergies Allergies Allergy/AdvReac Type Severity Reaction Status Date / Time methylprednisolone AdvReac Severe AMS Verified 06/23/21 17:35 hydromorphone [From Dilaudid] AdvReac Intermediate Nausea Verified 06/23/21 17:35 prednisone AdvReac Intermediate INCREASE Verified 06/23/21 17:35 BLOOD SUGAR Home Meds Home Medications Medication Instructions Recorded Confirmed atorvastatin 80 mg tablet 80 mg PO QPM 11/13/17 06/23/21 fluticasone propionate 50 2 spray INTRANASAL DAILY 11/13/17 06/23/21 mcg/actuation nasal spray,suspension (Flonase Allergy Relief) insulin degludec 200 unit/mL (3 120 unit SUBCUT QAM 11/13/17 06/23/21 mL) subcutaneous pen (Tresiba FlexTouch U-200 insulin) nitroglycerin 0.4 mg sublingual 0.4 mg SUBLINGUAL UD PRN 11/13/17 06/23/21 tablet (Nitrostat) etanercept 50 mg/mL (1 mL) 1 dose SUBCUT WK 04/10/18 06/23/21 subcutaneous pen injector (Enbrel SureClick) furosemide 80 mg tablet (Lasix) 80 mg PO QAM 04/20/18 06/23/21 allopurinol 300 mg tablet 300 mg PO DAILY 06/09/20 06/23/21 aspirin 81 mg tablet,delayed 81 mg PO DAILY 06/09/20 06/23/21 release (Aspirin Low Dose) folic acid 1 mg tablet 1 mg PO DAILY 06/09/20 06/23/21 insulin aspart U-100 100 unit/mL 30 unit SUBCUT TIDM 10/29/20 06/23/21 (3 mL) subcutaneous pen (Novolog Flexpen U-100 Insulin aspart) liraglutide 0.6 mg/0.1 mL (18 mg/3 1.8 mg SUBCUT QAM 10/29/20 06/23/21 mL) subcutaneous pen injector ([employer] 3-Kei) Lactobacillus acidophilus 10 10,000 mmu cells PO DAILY 05/19/21 06/23/21 billion cell capsule (Probiotic) peppermint oil 90 mg 90 mg PO DAILY 05/19/21 06/23/21 capsule,delayed,extended release (IBgard) Previous Rx's Medication Instructions Recorded omeprazole 20 mg tablet,delayed 20 mg PO BID #60 tab 10/14/19 release hydrocodone 5 mg-acetaminophen 325 1 tab PO Q4H PRN #10 tab 12/16/20 mg tablet isosorbide mononitrate 30 mg 30 mg PO QAM 30 Days #30 tab 12/16/20 tablet,extended release 24 hr Results & Data (ED) Vital Signs Vital Signs - 24 hr 06/23/21 15:53 06/23/21 16:56 06/23/21 17:00 Temperature 36.4 C L Temperature Source Temporal Artery Scan Pulse Rate 80 90 83 Pulse Rate [Apical] Pulse Rhythm [Apical] Pulse Strength [Apical] Respiratory Rate 22 12 20 Respiratory Effort / Characteristics Respiratory Depth Respiratory Pattern Blood Pressure 144/56 H 127/50 L Blood Pressure [Right Arm] Blood Pressure Mean 85 75 Blood Pressure Mean [Right Arm] Blood Pressure Position [Right Arm] Pulse Oximetry 98 Oxygen Delivery Method Room Air Room Air Sepsis Recent Fever Within 48 Hours No Sepsis New/Unexplained Change in Mental Status No Sepsis Action Taken by Nursing No Action Required 06/23/21 17:11 06/23/21 17:20 06/23/21 17:30 Temperature Temperature Source Pulse Rate 87 83 82 Pulse Rate [Apical] Pulse Rhythm [Apical] Pulse Strength [Apical] Respiratory Rate 16 15 23 Respiratory Effort / Characteristics Respiratory Depth Respiratory Pattern Blood Pressure 110/57 L Blood Pressure [Right Arm] Blood Pressure Mean 74 Blood Pressure Mean [Right Arm] Blood Pressure Position [Right Arm] Pulse Oximetry Oxygen Delivery Method Room Air Room Air Room Air Sepsis Recent Fever Within 48 Hours Sepsis New/Unexplained Change in Mental Status Sepsis Action Taken by Nursing 06/23/21 17:40 06/23/21 17:44 06/23/21 17:50 Temperature Temperature Source Pulse Rate 82 75 Pulse Rate [Apical] 75 Pulse Rhythm [Apical] Pulse Strength [Apical] Respiratory Rate 19 22 13 Respiratory Effort / Characteristics Non-Labored Spontaneous Respiratory Depth Normal Respiratory Pattern Regular Blood Pressure Blood Pressure [Right Arm] 110/57 L Blood Pressure Mean Blood Pressure Mean [Right Arm] 74 Blood Pressure Position [Right Arm] Pulse Oximetry 94 Oxygen Delivery Method Room Air Room Air Room Air Sepsis Recent Fever Within 48 Hours Sepsis New/Unexplained Change in Mental Status Sepsis Action Taken by Nursing 06/23/21 18:00 06/23/21 18:10 06/23/21 18:20 Temperature Temperature Source Pulse Rate 69 84 75 Pulse Rate [Apical] Pulse Rhythm [Apical] Pulse Strength [Apical] Respiratory Rate 19 16 19 Respiratory Effort / Characteristics Respiratory Depth Respiratory Pattern Blood Pressure 131/71 Blood Pressure [Right Arm] Blood Pressure Mean 91 Blood Pressure Mean [Right Arm] Blood Pressure Position [Right Arm] Pulse Oximetry Oxygen Delivery Method Room Air Room Air Room Air Sepsis Recent Fever Within 48 Hours Sepsis New/Unexplained Change in Mental Status Sepsis Action Taken by Nursing 06/23/21 18:30 06/23/21 18:40 06/23/21 20:59 Temperature Temperature Source Pulse Rate 73 82 Pulse Rate [Apical] 77 Pulse Rhythm [Apical] Pulse Strength [Apical] Respiratory Rate 16 18 18 Respiratory Effort / Characteristics Non-Labored Respiratory Depth Normal Respiratory Pattern Blood Pressure 145/64 H Blood Pressure [Right Arm] 137/67 Blood Pressure Mean 91 Blood Pressure Mean [Right Arm] 90 Blood Pressure Position [Right Arm] Pulse Oximetry 97 Oxygen Delivery Method Room Air Room Air Room Air Sepsis Recent Fever Within 48 Hours Sepsis New/Unexplained Change in Mental Status Sepsis Action Taken by Nursing 06/23/21 21:36 Temperature Temperature Source Pulse Rate Pulse Rate [Apical] 79 Pulse Rhythm [Apical] Regular Pulse Strength [Apical] Normal Respiratory Rate 18 Respiratory Effort / Characteristics Non-Labored Spontaneous Respiratory Depth Normal Respiratory Pattern Regular Blood Pressure Blood Pressure [Right Arm] 129/62 Blood Pressure Mean Blood Pressure Mean [Right Arm] 84 Blood Pressure Position [Right Arm] Sitting Pulse Oximetry 98 Oxygen Delivery Method Room Air Sepsis Recent Fever Within 48 Hours Sepsis New/Unexplained Change in Mental Status Sepsis Action Taken by Nursing Laboratory Data Result diagrams: 06/23/21 16:55 06/23/21 16:55 Lab Results 06/23/21 06/23/21 06/23/21 Range/Units 15:58 16:55 16:55 WBC 11.09 H (4.8-10.8) K/uL RBC 2.67 L (4.7-6.1) M/uL Hgb 8.0 L (14.0-18.0) g/dL Hct 25.8 L (42-52) % MCV 96.6 (80-100) fL MCH 30.0 (25-34) pg MCHC 31.0 L (32-36) g/dL RDW Std Deviation 60.5 H (36.4-46.3) fL RDW Coeff of Joey 17.3 H (11.5-14.5) % Plt Count 219 (130-400) K/uL MPV 8.7 (7.4-10.4) fL Immature Gran % (Auto) 0.4 % Neut % (Auto) 85.8 % Lymph % (Auto) 8.4 % [place] % (Auto) 3.5 % Eos % (Auto) 1.6 % Baso % (Auto) 0.3 % Neut # (Auto) 9.52 H (1.4-6.5) K/uL Lymph # (Auto) 0.93 L (1.2-3.4) K/uL [place] # (Auto) 0.39 (0.11-0.59) K/uL Eos # (Auto) 0.18 (0-0.5) K/uL Baso # (Auto) 0.03 (0-0.2) K/uL Immature Gran # (Auto) 0.04 H (0.00-0.02) K/uL Sodium 138 (136-145) mmol/L Potassium 4.3 (3.5-5.1) mmol/L Chloride 106 (98-107) mmol/L Carbon Dioxide 25 (21-32) mmol/L Anion Gap 7 (3-11) BUN 27 H (6-23) mg/dl Creatinine 1.30 (0.6-1.4) mg/dl Est Cr Clr Drug Dosing 55.7 ml/min Est GFR ( Amer) 60.6 ml/min Est GFR (Non-Af Amer) 52.3 ml/min BUN/Creatinine Ratio 20.8 H (10-20) Glucose 128 H (70-99(Fasting)) mg/dl Calcium 8.4 L (8.5-10.1) mg/dl Magnesium (1.7-2.4) mg/dl Total Bilirubin 0.3 (0.2-1.0) mg/dl AST 13 (13-39) U/L ALT 16 (7-52) U/L Alkaline Phosphatase 100 (34-104) U/L Troponin I High Sens (0-20) pg/ml B-Natriuretic Peptide (0-100) pg/ml Total Protein 5.8 L (6.0-8.3) gm/dl Albumin 3.0 L (3.4-5.0) gm/dl Globulin 2.8 (2.5-4.0) gm/dl Albumin/Globulin Ratio 1.1 (0.9-2) TSH (0.300-4.500) uIu/ml Urine Color Yellow Urine Appearance Clear (Clear) Urine pH 5.0 (4.5-7.5) Ur Specific [place] 1.018 (1.000-1.030) Urine Protein 3+ H (Negative) Urine Glucose (UA) Negative (Negative) Urine Ketones Negative (Negative) Urine Blood Negative (Negative) Urine Nitrite Negative (Negative) Urine Bilirubin Negative (Negative) Urine Urobilinogen Negative (Negative) Ur Leukocyte Esterase 2+ H (Negative) Urine WBC (Auto) >30 H (0-5) /hpf Urine RBC (Auto) 0-4 (0-4) /hpf U Hyaline Cast (Auto) 1-5 (0-5) /lpf U Epithel Cells (Auto) >30 H (0-5) /lpf Urine Bacteria (Auto) Negative (Negative) Ur Renal Epithelial Cell 0-5 (0-5) /lpf SARS-CoV-2, RNA, NAAT (NEGATIVE) Blood Type Antibody Screen Crossmatch 06/23/21 06/23/2106/23/22 Range/Units 16:55 16:55 16:55 WBC (4.8-10.8) K/uL RBC (4.7-6.1) M/uL Hgb (14.0-18.0) g/dL Hct (42-52) % MCV (80-100) fL MCH (25-34) pg MCHC (32-36) g/dL RDW Std Deviation (36.4-46.3) fL RDW Coeff of Joey (11.5-14.5) % Plt Count (130-400) K/uL MPV (7.4-10.4) fL Immature Gran % (Auto) % Neut % (Auto) % Lymph % (Auto) % [place] % (Auto) % Eos % (Auto) % Baso % (Auto) % Neut # (Auto) (1.4-6.5) K/uL Lymph # (Auto) (1.2-3.4) K/uL [place] # (Auto) (0.11-0.59) K/uL Eos # (Auto) (0-0.5) K/uL Baso # (Auto) (0-0.2) K/uL Immature Gran # (Auto) (0.00-0.02) K/uL Sodium (136-145) mmol/L Potassium (3.5-5.1) mmol/L Chloride (98-107) mmol/L Carbon Dioxide (21-32) mmol/L Anion Gap (3-11) BUN (6-23) mg/dl Creatinine (0.6-1.4) mg/dl Est Cr Clr Drug Dosing ml/min Est GFR ( Amer) ml/min Est GFR (Non-Af Amer) ml/min BUN/Creatinine Ratio (10-20) Glucose (70-99(Fasting)) mg/dl Calcium (8.5-10.1) mg/dl Magnesium 1.8 (1.7-2.4) mg/dl Total Bilirubin (0.2-1.0) mg/dl AST (13-39) U/L ALT (7-52) U/L Alkaline Phosphatase (34-104) U/L Troponin I High Sens 9.6 (0-20) pg/ml B-Natriuretic Peptide 286 H (0-100) pg/ml Total Protein (6.0-8.3) gm/dl Albumin (3.4-5.0) gm/dl Globulin (2.5-4.0) gm/dl Albumin/Globulin Ratio (0.9-2) TSH 1.831 (0.300-4.500) uIu/ml Urine Color Urine Appearance (Clear) Urine pH (4.5-7.5) Ur Specific [place] (1.000-1.030) Urine Protein (Negative) Urine Glucose (UA) (Negative) Urine Ketones (Negative) Urine Blood (Negative) Urine Nitrite (Negative) Urine Bilirubin (Negative) Urine Urobilinogen (Negative) Ur Leukocyte Esterase (Negative) Urine WBC (Auto) (0-5) /hpf Urine RBC (Auto) (0-4) /hpf U Hyaline Cast (Auto) (0-5) /lpf U Epithel Cells (Auto) (0-5) /lpf Urine Bacteria (Auto) (Negative) Ur Renal Epithelial Cell (0-5) /lpf SARS-CoV-2, RNA, NAAT (NEGATIVE) Blood Type Antibody Screen Crossmatch 06/23/21 06/23/21 Range/Units 19:14 Unknown WBC (4.8-10.8) K/uL RBC (4.7-6.1) M/uL Hgb (14.0-18.0) g/dL Hct (42-52) % MCV (80-100) fL MCH (25-34) pg MCHC (32-36) g/dL RDW Std Deviation (36.4-46.3) fL RDW Coeff of Joey (11.5-14.5) % Plt Count (130-400) K/uL MPV (7.4-10.4) fL Immature Gran % (Auto) % Neut % (Auto) % Lymph % (Auto) % [place] % (Auto) % Eos % (Auto) % Baso % (Auto) % Neut # (Auto) (1.4-6.5) K/uL Lymph # (Auto) (1.2-3.4) K/uL [place] # (Auto) (0.11-0.59) K/uL Eos # (Auto) (0-0.5) K/uL Baso # (Auto) (0-0.2) K/uL Immature Gran # (Auto) (0.00-0.02) K/uL Sodium (136-145) mmol/L Potassium (3.5-5.1) mmol/L Chloride (98-107) mmol/L Carbon Dioxide (21-32) mmol/L Anion Gap (3-11) BUN (6-23) mg/dl Creatinine (0.6-1.4) mg/dl Est Cr Clr Drug Dosing ml/min Est GFR ( Amer) ml/min Est GFR (Non-Af Amer) ml/min BUN/Creatinine Ratio (10-20) Glucose (70-99(Fasting)) mg/dl Calcium (8.5-10.1) mg/dl Magnesium (1.7-2.4) mg/dl Total Bilirubin (0.2-1.0) mg/dl AST (13-39) U/L ALT (7-52) U/L Alkaline Phosphatase (34-104) U/L Troponin I High Sens (0-20) pg/ml B-Natriuretic Peptide (0-100) pg/ml Total Protein (6.0-8.3) gm/dl Albumin (3.4-5.0) gm/dl Globulin (2.5-4.0) gm/dl Albumin/Globulin Ratio (0.9-2) TSH (0.300-4.500) uIu/ml Urine Color Urine Appearance (Clear) Urine pH (4.5-7.5) Ur Specific [place] (1.000-1.030) Urine Protein (Negative) Urine Glucose (UA) (Negative) Urine Ketones (Negative) Urine Blood (Negative) Urine Nitrite (Negative) Urine Bilirubin (Negative) Urine Urobilinogen (Negative) Ur Leukocyte Esterase (Negative) Urine WBC (Auto) (0-5) /hpf Urine RBC (Auto) (0-4) /hpf U Hyaline Cast (Auto) (0-5) /lpf U Epithel Cells (Auto) (0-5) /lpf Urine Bacteria (Auto) (Negative) Ur Renal Epithelial Cell (0-5) /lpf SARS-CoV-2, RNA, NAAT NEGATIVE (NEGATIVE) Blood Type A Positive Antibody Screen NEGATIVE Crossmatch See Detail Administered Medications Pantoprazole Sodium 40 mg/ (Dextrose) 100 mls @ 20 mls/hr IV Q5H ELMER Stop: 07/23/21 20:59 Last Admin: 06/23/21 21:01 Dose: 8 mg/hr, 20 mls/hr Documented by: [id number] Discontinued Medications Furosemide (Furosemide 40 Mg/4 Ml Vial) 80 mg IV ONE ONE Stop: 06/23/21 18:56 Last Admin: 06/23/21 19:09 Dose: 80 mg Documented by: [id number] Ceftriaxone Sodium (Rocephin) 1,000 mg in 50 mls @ 100 mls/hr IV 2044 ONE Stop: 06/23/21 21:14 Last Admin: 06/23/21 21:35 Dose: 100 mls/hr Documented by: [id number] Admin: 06/23/21 21:01 Dose: 100 mls/hr Documented by: [id number] Pantoprazole Sodium 80 mg/ (Dextrose) 120 mls @ 400 mls/hr IV NOW ONE Stop: 06/23/21 21:17 Last Admin: 06/23/21 21:01 Dose: 400 mls/hr Documented by: [id number] Imaging Data Radiologist's Impression: Chest X-Ray 06/23/21 16:06 SINGLE VIEW CHEST CLINICAL HISTORY: Generalized weakness FINDINGS: An AP, portable, upright chest radiograph is compared to study dated 12/14/2020. The examination is degraded by portable technique and apical lordotic positioning. A left subclavian central venous infusion port and a 2- lead cardiac pacemaker are unchanged in position. The patient is status post midline sternotomy. The heart is enlarged noting atherosclerotic calcification of the thoracic aorta. The pulmonary vasculature is noncongested. Chronic additional thickening is similar to previous. Mild atelectasis is noted at the lung bases appear The lungs and pleural spaces are otherwise clear. No pneumothorax is seen. The skeletal structures are osteopenic. The bony thorax is grossly intact. IMPRESSION: 1. Cardiomegaly and cardiac pacemaker with no radiographic evidence of conges tive failure. 2. No airspace consolidation or large pleural effusion is identified. ACT 112: Negative or not required by law. Electronically signed by: Jose Rasmussen M.D. 06/23/2021 4:34 PM Discharge Plan Visit Data Chief Complaint: Urinary Symptoms Stated Complaint: PROSTRATE ISSUES, HARD TO URINATE, PAIN ED Provider: Clifford Alejandra Discharge Problem: SOB (shortness of breath), Anemia, CHF (congestive heart failure) Patient Disposition: Admitted As Inpatient Discharge Instructions Interventions: ED Discharge Assessment Last Done: 06/23/21 21:51 Forms Stand Alone Forms: My [facility] [place] [employer] Prescriptions Prescriptions: No Action Enbrel SureClick 50 mg/mL (0.98 mL) Pen Injector 1 dose subcut WK RF: 0 furosemide [Lasix] 80 mg Tablet 80 mg PO QAM RF: 0 Tresiba FlexTouch U-200 200 unit/mL (3 mL) Insulin Pen 120 unit SUBCUT QAM RF: 0 atorvastatin 80 mg Tablet 80 mg PO QPM RF: 0 nitroglycerin [Nitrostat] 0.4 mg Tablet, Sublingual 0.4 mg Sublingual UD PRN (Reason: Chest Pain) RF: 0 fluticasone propionate [Flonase Allergy Relief] 50 mcg/actuation [place],Suspension 2 spray INTRANASAL DAILY RF: 0 omeprazole 20 mg Tablet,Delayed Release (Dr/Ec) 20 mg PO BID Qty: 60 RF: 1 aspirin [Aspirin Low Dose] 81 mg Tablet,Delayed Release (Dr/Ec) 81 mg PO DAILY RF: 0 folic acid 1 mg tablet 1 mg PO DAILY RF: 0 allopurinol 300 mg tablet 300 mg PO DAILY RF: 0 insulin aspart U-100 [Novolog Flexpen U-100 Insulin] 100 unit/mL (3 mL) insulin pen 30 unit SUBCUT TIDM RF: 0 [employer] 3-Kei 0.6 mg/0.1 mL (18 mg/3 mL) pen injector 1.8 mg SUBCUT QAM RF: 0 isosorbide mononitrate 30 mg Tablet Extended Release 24 Hr 30 mg PO QAM 30 Days Qty: 30 RF: 2 hydrocodone-acetaminophen 5-325 mg Tablet 1 tab PO Q4H PRN (Reason: severe pain) Qty: 10 RF: 0 Probiotic 10 billion cell Capsule 10,000 mmu cells PO DAILY RF: 0 IBgard 90 mg Capsule,Delayed,Extend.Release 90 mg PO DAILY RF: 0 Referrals Referrals: Nicola Prado MD [Primary Care Provider] -
[2021-06-23] MEDS ORDERED: GLUCOSE 40% GEL 15 GM TUBE PO PRN (22:23)
[2021-06-23] MEDS ORDERED: HYDROCODONE/ACETAMOPHEN 5/325MG TAB PO PRN (22:23)
[2021-06-23] MEDS ORDERED: ACETAMINOPHEN 325 MG TAB PO PRN (22:23)
[2021-06-23] MEDS ORDERED: GLUCOSE 10 TABS/TUBE PO PRN (22:23)
[2021-06-23] MEDS ORDERED: CARBOHYDRATES FOR HYPOGLYCEMIA PO PRN (22:23)
[2021-06-23] MEDS ORDERED: MoRPHine SULFATE 2 MG/ML CARP IV PRN (22:23)
[2021-06-23] MEDS ORDERED: DEXTROSE 50% 50 ML SYRINGE IV PRN (22:23)
[2021-06-23] MEDS ORDERED: PROMETHAZINE HCL 12.5 MG in SODIUM CHLORIDE 0.9% 50 ML IV PRN (22:23)
[2021-06-23] MEDS ORDERED: NITROGLYCERIN SL 0.4 MG/TAB TAB SL PRN ×2 (22:23)
[2021-06-23] MEDS ORDERED: GLUCAGON FOR INJ 1 MG VIAL SQ PRN (22:23)
[2021-06-23] MEDS: ATORVASTATIN 40 MG TAB PO SCH (23:33)
[2021-06-24] MEDS: INSULIN ASPART PER UNIT SC SCH ×4 (00:15→17:27)
[2021-06-24] MEDS ORDERED: INSULIN GLARGINE SOLOSTAR 100 UNITS/ML 3 ML PEN SC STA (00:37)
[2021-06-24] MEDS: PANTOprazole 40 MG in DEXTROSE 5% 100 ML IV SCH ×5 (04:59→19:09)
--- NOTE | 2021-06-24 07:18 | Ultrasound Report ---
US venous doppler LE BI CLINICAL HISTORY: leg swelling TECHNIQUE: Bilateral lower extremity real-time compression venous ultrasound with Color Doppler imagi ng. Utilizing real-time ultrasonic imaging multiple real time high-resolution ultrasonic images with compression and noncompression maneuvers of the deep venous system in addition to color doppler imagi ng were performed from the common femoral vein through the proximal calf veins. COMPARISON: None available at the time of this dictation. FINDINGS: Currently there is normal compressibility of the deep venous system from the common femoral vein thro ugh the proximal calf veins. No current evidence of acute thrombosis is identified. Impression: No evidence of deep venous thrombus. ACT 112: Negative or not required by law. Electronically signed by: Madhav Hare M.D. 06/24/2021 7:17 AM
[2021-06-24] MEDS ORDERED: FUROSEMIDE 40 MG/4 ML VIAL IV ONE (08:00)
[2021-06-24] MEDS: FLUTICASONE PROPIONATE NA SPR 16 GM BTL SCH (08:17)
[2021-06-24] MEDS: FOLIC ACID 1 MG TAB PO SCH (08:17)
[2021-06-24] MEDS: INSULIN GLARGINE SOLOSTAR 100 UNITS/ML 3 ML PEN SC SCH ×2 (08:17→20:44)
[2021-06-24] MEDS: allopurinoL 300 MG TAB PO SCH (08:17)
[2021-06-24] MEDS: ISOSORBIDE MONO EXTENDED REL 30 MG TABCR PO SCH (08:17)
[2021-06-24] MEDS: ADVANCED PROBIOTIC 1250 MG CAPSULE PO SCH (08:17)
--- NOTE | 2021-06-24 08:51 | Cardiology Consultation ---
Date of Consultation June 24, 2021 Assessment & Plan (1) SOB (shortness of breath): (2) Anemia: (3) Coronary artery disease: (4) Sleep apnea: (5) Psoriatic arthritis: (6) Morbid obesity: (7) COPD (chronic obstructive pulmonary disease): (8) CKD (chronic kidney disease) stage 4, GFR 15-29 ml/min: (9) Chronic respiratory failure: (10) Second degree atrioventricular block: (11) Chronic diastolic CHF (congestive heart failure): Progressive shortness of breath and volume overload in the setting of worsening anemia. Chest x-ray without significant volume overload. Patient is currently in high output heart failure, right greater than left. Will need to maintain hemoglobin greater than 10. IV PPI already started. Will be evaluated by our GI colleagues. Unfortunately, given his complex history of coronary artery disease aspirin must be continued uninterrupted He has had recurrent episodes of anemia on dual antiplatelet therapy in the past but this has been generally stabilized since discontinuation of Plavix We will continue to diurese with Lasix 60 mg IV twice daily Follow and replete electrolytes as necessary Patient should be maintained on telemetry. In terms of preop risk assessment she requires any invasive GI procedures I would place him as a moderate to high risk for any adverse perioperative cardiovascular events given his complex history and current symptoms. I would place his risk at approximately greater than 5%. He states he understands, he is accepting of this risk and would wish to proceed with any procedures deemed necessary. No need to delay from a cardiac standpoint History of Present Illness Reason for Consultation: acute decompensated heart failure Requesting Physician: Dr. Carrion Attending Physician: Radha Farmer MD History of Present Illness Mr. Montgomery is a very pleasant yet medically complex 80-year-old gentleman who follows closely with myself as an outpatient. He presented to [facility] on 06/23/2021 with complaints of chest discomfort, shortness of breath and recent 7 pound weight gain. His most recent cardiology visit he was complaining of GERD symptoms and started on a PPI. He has been compliant with the medications but his chest discomfort has persisted. He describes it as an achy substernal discomfort that occurs at rest, no change with exertion. He denied any associated symptoms with it. He is also noticed some bowel changes. Approximately 2 days prior to presentation he started developing some dyspnea. Along with lower extremity edema and an unintentional 7 pound weight gain despite compliance with medications. Upon arrival to the emergency department he was found to be volume overloaded and anemic with a hemoglobin of 8. He does carry a longstanding history of chronic GI bleeding worsened by dual antiplatelet therapy in the past. No GI source has been found as of yet. PAST MEDICAL HISTORY: 1.Coronary artery disease, status post coronary bypass grafting surgery x3 in 2008, along with multiple PCIs to the RCA and patent RCA stents with 2 patent grafts by cardiac catheterization August 2016. 2.Chronic respiratory failure, on home O2, improved. 3.Severe anemia requiring transfusion while on dual antiplatelet therapy. 4.Stage III-IV chronic kidney disease with a baseline creatinine around 2. 5.Elevated BMI. 6.COPD. 7.Obstructive sleep apnea, on nocturnal CPAP. 8.Diabetes. 9.Dyslipidemia. 10. 2 to 1 av block status post dual-chamber permanent pacemaker placement Allergies Allergy/AdvReac Type Severity Reaction Status Date / Time methylprednisolone AdvReac Severe AMS Verified 06/23/21 17:35 hydromorphone [From Dilaudid] AdvReac Intermediate Nausea Verified 06/23/21 17:35 prednisone AdvReac Intermediate INCREASE Verified 06/23/21 17:35 BLOOD SUGAR Home Medications Medication Instructions Recorded Confirmed Type atorvastatin 80 mg tablet 80 mg PO QPM 11/13/17 06/23/21 History fluticasone propionate 50 2 spray INTRANASAL DAILY 11/13/17 06/23/21 History mcg/actuation nasal spray,suspension (Flonase Allergy Relief) insulin degludec 200 unit/mL (3 120 unit SUBCUT QAM 11/13/17 06/23/21 History mL) subcutaneous pen (Tresiba FlexTouch U-200 insulin) nitroglycerin 0.4 mg sublingual 0.4 mg SUBLINGUAL UD PRN 11/13/17 06/23/21 Hist ory tablet (Nitrostat) etanercept 50 mg/mL (1 mL) 1 dose SUBCUT WK 04/10/18 06/23/21 History subcutaneous pen injector (Enbrel SureClick) furosemide 80 mg tablet (Lasix) 80 mg PO QAM 04/20/18 06/23/21 History omeprazole 20 mg tablet,delayed 20 mg PO BID #60 tab 10/14/19 06/23/21 Rx release allopurinol 300 mg tablet 300 mg PO DAILY 06/09/20 06/23/21 History aspirin 81 mg tablet,delayed 81 mg PO DAILY 06/09/20 06/23/21 History release (Aspirin Low Dose) folic acid 1 mg tablet 1 mg PO DAILY 06/09/20 06/23/21 History insulin aspart U-100 100 unit/mL 30 unit SUBCUT TIDM 10/29/20 06/23/21 History (3 mL) subcutaneous pen (Novolog Flexpen U-100 Insulin aspart) liraglutide 0.6 mg/0.1 mL (18 mg/3 1.8 mg SUBCUT QAM 10/29/20 06/23/21 History mL) subcutaneous pen injector ([place]-8toza 3-Kei) hydrocodone 5 mg-acetaminophen 325 1 tab PO Q4H PRN #10 tab 12/16/20 06/23/21 Rx mg tablet isosorbide mononitrate 30 mg 30 mg PO QAM 30 Days #30 tab 12/16/20 06/23/21 Rx tablet,extended release 24 hr Lactobacillus acidophilus 10 10,000 mmu cells PO DAILY 05/19/21 06/23/21 History billion cell capsule (Probiotic) peppermint oil 90 mg 90 mg PO DAILY 05/19/21 06/23/21 History capsule,delayed,extended release (IBgard) Patient History Medical History Anemia IRON INFUSIONS EVERY OTHER WEEK Chronic diastolic CHF (congestive heart failure) Chronic GI bleeding Chronic obstructive pulmonary disease CKD (chronic kidney disease), stage IV Diabetes mellitus, type 2 Diverticular disease GERD (gastroesophageal reflux disease) History of colon polyps History of COVID-19 02/2021>NO SYMPTOMS *TESTED AT [facility] History of prostate cancer radiation seeds Hx of gout Hyperlipidemia Hypertension IDDM (insulin dependent diabetes mellitus) Obesity On home oxygen therapy 2L N/C AT HS WITH CPAP Osteoarthritis Pacemaker Psoriasis Sleep apnea CPAP WITH O2 AT 2L Surgical History History of cardiac cath had 4 total--last 2015 @ [facility] History of colonoscopy History of esophagogastroduodenoscopy (EGD) History of heart artery stent x6 stents total History of prostate biopsy malignant History of tooth extraction S/P CABG x 3 2008 @ [facility]---follows with Dr. Rolon Status post LASIK surgery of both eyes Family History Son Family history of diabetes mellitus Other No family history of adverse response to anesthesia Social History Smoking Status: Former smoker Tobacco Type: Cigarettes Second Hand Exposure: No; Hx Alcohol Use: No Hx Substance Use: No Preferred Language: Maltese Communication Ability: Effective Safety Aide Required: No Beliefs That Will Affect Care: None marital status: Current Living Situation: Family Current Living Situation Comment: /SON AND GRANDSON How many Children do You have: 2 Other Information That Helps Us Care for You: No Feels Safe at Home: Yes Safety Concerns: Feels Safe At This Time Assistive Devices: Glasses and Oxygen - at Night Review of Systems Review of Systems: All systems reviewed & are unremarkable except as noted in HPI & below Results & Data ([facility]) Vital Signs (Past 12 Hours) Vital Signs Temp Pulse Pulse Resp BP BP Pulse Ox 06/24/21 07:40 36.6 C 73 18 130/74 96 06/24/21 06:35 36.6 C 66 18 129/74 98 06/24/21 05:22 36.9 C 69 18 120/60 95 06/24/21 04:22 36.7 C 68 18 129/65 95 06/24/21 03:52 36.6 C 66 18 127/75 97 06/24/21 03:37 36.8 C 66 16 128/74 94 06/24/21 03:30 83 06/24/21 03:21 36.7 C 72 18 134/75 97 06/24/21 03:05 36.7 C 70 18 131/67 95 06/24/21 02:35 36.7 C 68 18 134/75 98 06/24/21 01:59 36.7 C 68 18 130/76 95 06/24/21 00:59 36.7 C 68 18 134/73 97 06/23/21 23:59 36.7 C 67 18 123/67 97 06/23/21 23:29 36.5 C 71 18 129/64 97 06/23/21 23:14 36.9 C 72 18 125/66 96 06/23/21 22:55 36.6 C 77 18 149/66 H 98 06/23/21 22:24 36.6 C 79 19 140/74 98 06/23/21 21:36 79 18 129/62 98 06/23/21 20:59 77 18 137/67 97
[2021-06-24] MEDS ORDERED: INSULIN GLARGINE SOLOSTAR 100 UNITS/ML 3 ML PEN SC SCH (09:00)
--- NOTE | 2021-06-24 09:18 | Gastrointestinal Consultation ---
Date of Consultation June 24, 2021 Assessment & Plan (1) Anemia: (2) SOB (shortness of breath): (3) CHF (congestive heart failure): 80 y/o male with multiple co-morbidities, including chronic SNOW on IV iron, Henning's, h/o small bowel AVM's s/p tx, chronic black stools, and recent endoscopy w/o source of GIB. Admitted w/ dyspnea, weight gain and leg edema, w/u c/w CHF and he is being treated for this. We are consulted for concern of UGIB. He had a drop in HGB that has quickly rebounded to his baseline after diureses, suggesting drop was from dilutional effect given underlying CHF. His SOB is improved and he is feeling better. His stools are at their baseline, no melena or hematochezia, no hematemesis or elevated BUN suggestive of active GIB. On exam abd is soft, nontender. - Continue PPI, consider switching to PO - No plans for repeat endoscopy at this time - Diet as per primary/cardiology service - Continue IV iron infusions per Heme/Onc's direction, monitor blood count. - On DC recommend he continue Omeprazole 20mg BID - For Henning's, due for repeat surveillance EGD in 2024; repeat colonoscopy in 2023. Thank you for allowing us to participate in the care of this patient. Please call with any acute changes, questions or concerns. Please see addendum below with additional recommendation from my supervising physician. Supervising Physician Co-Signing Physician Notes I performed a history and physical examination of the patient today, including specifically on physical exam - soft abdomen. I have discussed the patient's management with the advanced practitioner. Please refer to the nurse practitioner's note for the documented findings and plan of care. Patient with obscure occult GI bleeding. Plan for Push enteroscopy tomorrow. History of Present Illness Reason for Consultation: UGIB Attending Physician: Radha Farmer MD History of Present Illness 80 year old male with chronic diastolic HF, CAD s/p CABG s/p stent, PVD, HTN, HLD, T2DM on insulin, hx TIA,chronic respiratory failure, COPD/pulmonary HTN, on home O2, KATHE on CPAP, CRI (baseline creatinine 2s), chronic anemia (baseline hemoglobin 10-11) prostate cancer status post radiation, hx Henning's esophagus, small bowel AVM, diverticulosis/polyps, past tobacco abuse, and others admitted after presenting 5/10 w/ weight gain, leg edema and SOB. On arrival to the ER was found to be volume overloaded, with elevated BNP, and HGB 11->8 from last month. BUN is not above baseline. He was diuresed and has improved since admission. He states he feels much better; dyspnea is improved. He had a brown soft stool today. Repeat HGB was 11.4. He has chronic iron deficiency anemia, hx of AVMs s/p endoscopic treatment. He has chronic black stools but denies melena or BRBPR. Typically has 1 dark formed stool per day. He gets Venofer IV every other week. In the last year has had colonoscopy, SBE, VCE and 2 EGD's. Most recently EGD 1 month ago w/ no AVMs, + Henning's. Admitted after presenting with SOB, HGB 8.0. BUN not elevated above baseline. He had a brown stool this AM. Of note he had a ? rising PSA, following with urology for h/o prostate CA. Currently denies abd pain, n/v, hematemesis, change in appetite, heartburn, dysphagia, CP, dizziness, syncope, fever, chills. GI WORKUP: EGD 05/2021: Ectopic gastric mucosa in the upper third of the esophagus. - Esophageal mucosal changes secondary to established short-segment Henning's disease. - Erythematous mucosa in the stomach. - Normal duodenal bulb, second portion of the duodenum and third portion of the duodenum. No bleeding or AVMs seen. - No specimens collected. Impression: - Discharge patient to EGD 2020:Two large inlet patches. Short segment Henning's. Patchy antral gastritis. AVM, cauterized and Clipped. VCE 2020: AVM SBE 2020: - Normal esophagus. - Normal stomach. - Normal examined duodenum. - A single bleeding angiodysplastic lesion in the jejunum. Treated with argon plasma coagulation (APC). Clips (MR conditional) were placed. - No specimens collected. Colonoscopy 2020:The examined portion of the ileum was normal. - Medium-sized lipoma in the ascending colon. - One 8 mm polyp in the transverse colon, removed with a cold snare. Resected and retrieved. - Diverticulosis in the entire examined colon. - Non-bleeding internal hemorrhoids Allergies Allergy/AdvReac Type Severity Reaction Status Date / Time methylprednisolone AdvReac Severe AMS Verified 06/23/21 17:35 hydromorphone [From Dilaudid] AdvReac Intermediate Nausea Verified 06/23/21 17:35 prednisone AdvReac Intermediate INCREASE Verified 06/23/21 17:35 BLOOD SUGAR Home Medications Medication Instructions Recorded Confirmed Type atorvastatin 80 mg tablet 80 mg PO QPM 11/13/17 06/23/21 History fluticasone propionate 50 2 spray INTRANASAL DAILY 11/13/17 06/23/21 History mcg/actuation nasal spray,suspension (Flonase Allergy Relief) insulin degludec 200 unit/mL (3 120 unit SUBCUT QAM 11/13/17 06/23/21 History mL) subcutaneous pen (Tresiba FlexTouch U-200 insulin) nitroglycerin 0.4 mg sublingual 0.4 mg SUBLINGUAL UD PRN 11/13/17 06/23/21 History tablet (Nitrostat) etanercept 50 mg/mL (1 mL) 1 dose SUBCUT WK 04/10/18 06/23/21 History subcutaneous pen injector (Enbrel SureClick) furosemide 80 mg tablet (Lasix) 80 mg PO QAM 04/20/18 06/23/21 History omeprazole 20 mg tablet,delayed 20 mg PO BID #60 tab 10/14/19 06/23/21 Rx release allopurinol 300 mg tablet 300 mg PO DAILY 06/09/20 06/23/21 History aspirin 81 mg tablet,delayed 81 mg PO DAILY 06/09/20 06/23/21 History release (Aspirin Low Dose) folic acid 1 mg tablet 1 mg PO DAILY 06/09/20 06/23/21 History insulin aspart U-100 100 unit/mL 30 unit SUBCUT TIDM 10/29/20 06/23/21 History (3 mL) subcutaneous pen (Novolog Flexpen U-100 Insulin aspart) liraglutide 0.6 mg/0.1 mL (18 mg/3 1.8 mg SUBCUT QAM 10/29/20 06/23/21 History mL) subcutaneous pen injector (Victoza 3-Kei) hydrocodone 5 mg-acetaminophen 325 1 tab PO Q4H PRN #10 tab 12/16/20 06/23/21 Rx mg tablet isosorbide mononitrate 30 mg 30 mg PO QAM 30 Days #30 tab 12/16/20 06/23/21 Rx tablet,extended release 24 hr Lactobacillus acidophilus 10 10,000 mmu cells PO DAILY 05/19/21 06/23/21 History billion cell capsule (Probiotic) peppermint oil 90 mg 90 mg PO DAILY 05/19/21 06/23/21 History capsule,delayed,extended release (IBgard) Patient History Medical History Anemia IRON INFUSIONS EVERY OTHER WEEK Chronic diastolic CHF (congestive heart failure) Chronic GI bleeding Chronic obstructive pulmonary disease CKD (chronic kidney disease), stage IV Diabetes mellitus, type 2 Diverticular disease GERD (gastroesophageal reflux disease) History of colon polyps History of COVID-19 02/2021>NO SYMPTOMS *TESTED AT [facility] History of prostate cancer radiation seeds Hx of gout Hyperlipidemia Hypertension IDDM (insulin dependent diabetes mellitus) Obesity On home oxygen therapy 2L N/C AT HS WITH CPAP Osteoarthritis Pacemaker Psoriasis Sleep apnea CPAP WITH O2 AT 2L Surgical History History of cardiac cath had 4 total--last 2016 @ [facility] History of colonoscopy History of esophagogastroduodenoscopy (EGD) History of heart artery stent x6 stents total History of prostate biopsy malignant History of tooth extraction S/P CABG x 3 2008 @ [facility]---follows with Dr. Rolon Status post LASIK surgery of both eyes Family History Son Family history of diabetes mellitus Other No family history of adverse response to anesthesia Social History Smoking Status: Former smoker Tobacco Type: Cigarettes Second Hand Exposure: No; Hx Alcohol Use: No Hx Substance Use: No Preferred Language: Israeli Communication Ability: Effective Bellman Driver Required: No Beliefs That Will Affect Care: None marital status: Current Living Situation: Family Current Living Situation Comment: /[facility] [employer] [facility]AND[facility] How many Children do You have: 2 Other Information That Helps Us Care for You: No Feels Safe at Home: Yes Safety Concerns: Feels Safe At This Time Assistive Devices: Glasses and Oxygen - at Night Review of Systems Review of Systems: All systems reviewed & are unremarkable except as noted in HPI & below Physical Exam Constitutional: WD/WN, vitals as above Eyes: PERRL, conjunctivae normal, anicteric sclerae Neck: trachea midline, no thyromegaly Respiratory: normal respiratory effort, lungs clear to auscultation Cardiovascular: Rate/Rhythm: regular rate and regular rhythm mild bilateral pretibial edema Gastrointestinal (Abdomen): normal bowel sounds, soft, nontender, no hepatosplenomegaly Skin: no rashes, warm and dry Psychiatric: A+Ox3, euthymic affect Results & Data ([facility]) Vital Signs (Past 12 Hours) Vital Signs Temp Pulse Pulse Resp BP BP Pulse Ox 06/24/21 07:40 36.6 C 73 18 130/74 96 06/24/21 06:35 36.6 C 66 18 129/74 98 06/24/21 05:22 36.9 C 69 18 120/60 95 06/24/21 04:22 36.7 C 68 18 129/65 95 06/24/21 03:52 36.6 C 66 18 127/75 97 06/24/21 03:37 36.8 C 66 16 128/74 94 06/24/21 03:30 83 06/24/21 03:21 36.7 C 72 18 134/75 97 06/24/21 03:05 36.7 C 70 18 131/67 95 06/24/21 02:35 36.7 C 68 18 134/75 98 06/24/21 01:59 36.7 C 68 18 130/76 95 06/24/21 00:59 36.7 C 68 18 134/73 97 06/23/21 23:59 36.7 C 67 18 123/67 97 06/23/21 23:29 36.5 C 71 18 129/64 97 06/23/21 23:14 36.9 C 72 18 125/66 96 06/23/21 22:55 36.6 C 77 18 149/66 H 98 06/23/21 22:24 36.6 C 79 19 140/74 98 06/23/21 21:36 79 18 129/62 98 Laboratory Results 06/24/21 06/24/21 06/24/21 Range/Units 12:16 11:36 09:54 WBC (4.8-10.8) K/uL RBC (4.7-6.1) M/uL Hgb 11.3 L (14.0-18.0) g/dL Hct 35.6 L (42-52) % MCV (80-100) fL MCH (25-34) pg MCHC (32-36) g/dL RDW Std Deviation (36.4-46.3) fL RDW Coeff of Joey (11.5-14.5) % Plt Count (130-400) K/uL MPV (7.4-10.4) fL Immature Gran % (Auto) % Neut % (Auto) % Lymph % (Auto) % [place] % (Auto) % Eos % (Auto) % Baso % (Auto) % Neut # (Auto) (1.4-6.5) K/uL Lymph # (Auto) (1.2-3.4) K/uL [place] # (Auto) (0.11-0.59) K/uL Eos # (Auto) (0-0.5) K/uL Baso # (Auto) (0-0.2) K/uL Immature Gran # (Auto) (0.00-0.02) K/uL Absolute Nucleated RBC (0-0) K/uL Nucleated RBC % (auto) % Sodium (136-145) mmol/L Potassium (3.5-5.1) mmol/L Chloride (98-107) mmol/L Carbon Dioxide (21-32) mmol/L Anion Gap (3-11) BUN (6-23) mg/dl Creatinine (0.6-1.4) mg/dl Est Cr Clr Drug Dosing ml/min Est GFR ( Amer) ml/min Est GFR (Non-Af Amer) ml/min BUN/Creatinine Ratio (10-20) Glucose (70-99(Fasting)) mg/dl POC Glucose 80 (70-99) mg/dl Estimat Average Glucose 120 mg/dl Hemoglobin A1c 5.8 H (4.5-5.6) % Calcium (8.5-10.1) mg/dl Magnesium (1.7-2.4) mg/dl Total Bilirubin (0.2-1.0) mg/dl AST (13-39) U/L ALT (7-52) U/L Alkaline Phosphatase (34-104) U/L Troponin I High Sens (0-20) pg/ml B-Natriuretic Peptide (0-100) pg/ml Total Protein (6.0-8.3) gm/dl Albumin (3.4-5.0) gm/dl Globulin (2.5-4.0) gm/dl Albumin/Globulin Ratio (0.9-2) TSH (0.300-4.500) uIu/ml Urine Color Urine Appearance (Clear) Urine pH (4.5-7.5) Ur Specific [place] (1.000-1.030) Urine Protein (Negative) Urine Glucose (UA) (Negative) Urine Ketones (Negative) Urine Blood (Negative) Urine Nitrite (Negative) Urine Bilirubin (Negative) Urine Urobilinogen (Negative) Ur Leukocyte Esterase (Negative) Urine WBC (Auto) (0-5) /hpf Urine RBC (Auto) (0-4) /hpf U Hyaline Cast (Auto) (0-5) /lpf U Epithel Cells (Auto) (0-5) /lpf Urine Bacteria (Auto) (Negative) Ur Renal Epithelial Cell (0-5) /lpf SARS-CoV-2, RNA, NAAT (NEGATIVE) Blood Type Antibody Screen Crossmatch 06/24/21 06/24/21 06/24/21 Range/Units 09:54 09:54 06:25 WBC 9.97 (4.8-10.8) K/uL RBC 3.83 L (4.7-6.1) M/uL Hgb 11.4 L D (14.0-18.0) g/dL Hct 35.4 L (42-52) % MCV 92.4 (80-100) fL MCH 29.8 (25-34) pg MCHC 32.2 (32-36) g/dL RDW Std Deviation 58.6 H (36.4-46.3) fL RDW Coeff of Joey 17.7 H (11.5-14.5) % Plt Count 225 (130-400) K/uL MPV 9.0 (7.4-10.4) fL Immature Gran % (Auto) 0.7 % Neut % (Auto) 78.6 % Lymph % (Auto) 12.5 % [place] % (Auto) 3.3 % Eos % (Auto) 4.6 % Baso % (Auto) 0.3 % Neut # (Auto) 7.83 H (1.4-6.5) K/uL Lymph # (Auto) 1.25 (1.2-3.4) K/uL [place] # (Auto) 0.33 (0.11-0.59) K/uL Eos # (Auto) 0.46 (0-0.5) K/uL Baso # (Auto) 0.03 (0-0.2) K/uL Immature Gran # (Auto) 0.07 H (0.00-0.02) K/uL Absolute Nucleated RBC 0.02 H (0-0) K/uL Nucleated RBC % (auto) 0.2 % Sodium 139 (136-145) mmol/L Potassium 4.0 (3.5-5.1) mmol/L Chloride 102 (98-107) mmol/L Carbon Dioxide 31 (21-32) mmol/L Anion Gap 6 (3-11) BUN 29 H (6-23) mg/dl Creatinine 1.50 H (0.6-1.4) mg/dl Est Cr Clr Drug Dosing 47.7 ml/min Est GFR ( Amer) 51.0 ml/min Est GFR (Non-Af Amer) 44.0 ml/min BUN/Creatinine Ratio 19.3 (10-20) Glucose 72 (70-99(Fasting)) mg/dl POC Glucose 82 (70-99) mg/dl Estimat Average Glucose mg/dl Hemoglobin A1c (4.5-5.6) % Calcium 8.8 (8.5-10.1) mg/dl Magnesium (1.7-2.4) mg/dl Total Bilirubin (0.2-1.0) mg/dl AST (13-39) U/L ALT (7-52) U/L Alkaline Phosphatase (34-104) U/L Troponin I High Sens (0-20) pg/ml B-Natriuretic Peptide (0-100) pg/ml Total Protein (6.0-8.3) gm/dl Albumin (3.4-5.0) gm/dl Globulin (2.5-4.0) gm/dl Albumin/Globulin Ratio (0.9-2) TSH (0.300-4.500) uIu/ml Urine Color Urine Appearance (Clear) Urine pH (4.5-7.5) Ur Specific [place] (1.000-1.030) Urine Protein (Negative) Urine Glucose (UA) (Negative) Urine Ketones (Negative) Urine Blood (Negative) Urine Nitrite (Negative) Urine Bilirubin (Negative) Urine Urobilinogen (Negative) Ur Leukocyte Esterase (Negative) Urine WBC (Auto) (0-5) /hpf Urine RBC (Auto) (0-4) /hpf U Hyaline Cast (Auto) (0-5) /lpf U Epithel Cells (Auto) (0-5) /lpf Urine Bacteria (Auto) (Negative) Ur Renal Epithelial Cell (0-5) /lpf SARS-CoV-2, RNA, NAAT (NEGATIVE) Blood Type Antibody Screen Crossmatch 06/23/21 06/23/21 06/23/21 Range/Units Unknown 23:39 19:14 WBC (4.8-10.8) K/uL RBC (4.7-6.1) M/uL Hgb (14.0-18.0) g/dL Hct (42-52) % MCV (80-100) fL MCH (25-34) pg MCHC (32-36) g/dL RDW Std Deviation (36.4-46.3) fL RDW Coeff of Joey (11.5-14.5) % Plt Count (130-400) K/uL MPV (7.4-10.4) fL Immature Gran % (Auto) % Neut % (Auto) % Lymph % (Auto) % [place] % (Auto) % Eos % (Auto) % Baso % (Auto) % Neut # (Auto) (1.4-6.5) K/uL Lymph # (Auto) (1.2-3.4) K/uL [place] # (Auto) (0.11-0.59) K/uL Eos # (Auto) (0-0.5) K/uL Baso # (Auto) (0-0.2) K/uL Immature Gran # (Auto) (0.00-0.02) K/uL Absolute Nucleated RBC (0-0) K/uL Nucleated RBC % (auto) % Sodium (136-145) mmol/L Potassium (3.5-5.1) mmol/L Chloride (98-107) mmol/L Carbon Dioxide (21-32) mmol/L Anion Gap (3-11) BUN (6-23) mg/dl Creatinine (0.6-1.4) mg/dl Est Cr Clr Drug Dosing ml/min Est GFR ( Amer) ml/min Est GFR (Non-Af Amer) ml/min BUN/Creatinine Ratio (10-20) Glucose (70-99(Fasting)) mg/dl POC Glucose 251 H (70-99) mg/dl Estimat Average Glucose mg/dl Hemoglobin A1c (4.5-5.6) % Calcium (8.5-10.1) mg/dl Magnesium (1.7-2.4) mg/dl Total Bilirubin (0.2-1.0) mg/dl AST (13-39) U/L ALT (7-52) U/L Alkaline Phosphatase (34-104) U/L Troponin I High Sens (0-20) pg/ml B-Natriuretic Peptide (0-100) pg/ml Total Protein (6.0-8.3) gm/dl Albumin (3.4-5.0) gm/dl Globulin (2.5-4.0) gm/dl Albumin/Globulin Ratio (0.9-2) TSH (0.300-4.500) uIu/ml Urine Color Urine Appearance (Clear) Urine pH (4.5-7.5) Ur Specific [place] (1.000-1.030) Urine Protein (Negative) Urine Glucose (UA) (Negative) Urine Ketones (Negative) Urine Blood (Negative) Urine Nitrite (Negative) Urine Bilirubin (Negative) Urine Urobilinogen (Negative) Ur Leukocyte Esterase (Negative) Urine WBC (Auto) (0-5) /hpf Urine RBC (Auto) (0-4) /hpf U Hyaline Cast (Auto) (0-5) /lpf U Epithel Cells (Auto) (0-5) /lpf Urine Bacteria (Auto) (Negative) Ur Renal Epithelial Cell (0-5) /lpf SARS-CoV-2, RNA, NAAT NEGATIVE (NEGATIVE) Blood Type A Positive Antibody Screen NEGATIVE Crossmatch See Detail 06/23/21 06/23/21 06/23/21 Range/Units 16:55 16:55 16:55 WBC (4.8-10.8) K/uL RBC (4.7-6.1) M/uL Hgb (14.0-18.0) g/dL Hct (42-52) % MCV (80-100) fL MCH (25-34) pg MCHC (32-36) g/dL RDW Std Deviation (36.4-46.3) fL RDW Coeff of Joey (11.5-14.5) % Plt Count (130-400) K/uL MPV (7.4-10.4) fL Immature Gran % (Auto) % Neut % (Auto) % Lymph % (Auto) % [place] % (Auto) % Eos % (Auto) % Baso % (Auto) % Neut # (Auto) (1.4-6.5) K/uL Lymph # (Auto) (1.2-3.4) K/uL [place] # (Auto) (0.11-0.59) K/uL Eos # (Auto) (0-0.5) K/uL Baso # (Auto) (0-0.2) K/uL Immature Gran # (Auto) (0.00-0.02) K/uL Absolute Nucleated RBC (0-0) K/uL Nucleated RBC % (auto) % Sodium (136-145) mmol/L Potassium (3.5-5.1) mmol/L Chloride (98-107) mmol/L Carbon Dioxide (21-32) mmol/L Anion Gap (3-11) BUN (6-23) mg/dl Creatinine (0.6-1.4) mg/dl Est Cr Clr Drug Dosing ml/min Est GFR ( Amer) ml/min Est GFR (Non-Af Amer) ml/min BUN/Creatinine Ratio (10-20) Glucose (70-99(Fasting)) mg/dl POC Glucose (70-99) mg/dl Estimat Average Glucose mg/dl Hemoglobin A1c (4.5-5.6) % Calcium (8.5-10.1) mg/dl Magnesium 1.8 (1.7-2.4) mg/dl Total Bilirubin (0.2-1.0) mg/dl AST (13-39) U/L ALT (7-52) U/L Alkaline Phosphatase (34-104) U/L Troponin I High Sens 9.6 (0-20) pg/ml B-Natriuretic Peptide 286 H (0-100) pg/ml Total Protein (6.0-8.3) gm/dl Albumin (3.4-5.0) gm/dl Globulin (2.5-4.0) gm/dl Albumin/Globulin Ratio (0.9-2) TSH 1.831 (0.300-4.500) uIu/ml Urine Color Urine Appearance (Clear) Urine pH (4.5-7.5) Ur Specific [place] (1.000-1.030) Urine Protein (Negative) Urine Glucose (UA) (Negative) Urine Ketones (Negative) Urine Blood (Negative) Urine Nitrite (Negative) Urine Bilirubin (Negative) Urine Urobilinogen (Negative) Ur Leukocyte Esterase (Negative) Urine WBC (Auto) (0-5) /hpf Urine RBC (Auto) (0-4) /hpf U Hyaline Cast (Auto) (0-5) /lpf U Epithel Cells (Auto) (0-5) /lpf Urine Bacteria (Auto) (Negative) Ur Renal Epithelial Cell (0-5) /lpf SARS-CoV-2, RNA, NAAT (NEGATIVE) Blood Type Antibody Screen Crossmatch 06/23/21 06/23/21 06/23/21 Range/Units 16:55 16:55 15:58 WBC 11.09 H (4.8-10.8) K/uL RBC 2.67 L (4.7-6.1) M/uL Hgb 8.0 L (14.0-18.0) g/dL Hct 25.8 L (42-52) % MCV 96.6 (80-100) fL MCH 30.0 (25-34) pg MCHC 31.0 L (32-36) g/dL RDW Std Deviation 60.5 H (36.4-46.3) fL RDW Coeff of Joey 17.3 H (11.5-14.5) % Plt Count 219 (130-400) K/uL MPV 8.7 (7.4-10.4) fL Immature Gran % (Auto) 0.4 % Neut % (Auto) 85.8 % Lymph % (Auto) 8.4 % [place] % (Auto) 3.5 % Eos % (Auto) 1.6 % Baso % (Auto) 0.3 % Neut # (Auto) 9.52 H (1.4-6.5) K/uL Lymph # (Auto) 0.93 L (1.2-3.4) K/uL [place] # (Auto) 0.39 (0.11-0.59) K/uL Eos # (Auto) 0.18 (0-0.5) K/uL Baso # (Auto) 0.03 (0-0.2) K/uL Immature Gran # (Auto) 0.04 H (0.00-0.02) K/uL Absolute Nucleated RBC (0-0) K/uL Nucleated RBC % (auto) % Sodium 138 (136-145) mmol/L Potassium 4.3 (3.5-5.1) mmol/L Chloride 106 (98-107) mmol/L Carbon Dioxide 25 (21-32) mmol/L Anion Gap 7 (3-11) BUN 27 H (6-23) mg/dl Creatinine 1.30 (0.6-1.4) mg/dl Est Cr Clr Drug Dosing 55.7 ml/min Est GFR ( Amer) 60.6 ml/min Est GFR (Non-Af Amer) 52.3 ml/min BUN/Creatinine Ratio 20.8 H (10-20) Glucose 128 H (70-99(Fasting)) mg/dl POC Glucose (70-99) mg/dl Estimat Average Glucose mg/dl Hemoglobin A1c (4.5-5.6) % Calcium 8.4 L (8.5-10.1) mg/dl Magnesium (1.7-2.4) mg/dl Total Bilirubin 0.3 (0.2-1.0) mg/dl AST 13 (13-39) U/L ALT 16 (7-52) U/L Alkaline Phosphatase 100 (34-104) U/L Troponin I High Sens (0-20) pg/ml B-Natriuretic Peptide (0-100) pg/ml Total Protein 5.8 L (6.0-8.3) gm/dl Albumin 3.0 L (3.4-5.0) gm/dl Globulin 2.8 (2.5-4.0) gm/dl Albumin/Globulin Ratio 1.1 (0.9-2) TSH (0.300-4.500) uIu/ml Urine Color Yellow Urine Appearance Clear (Clear) Urine pH 5.0 (4.5-7.5) Ur Specific [place] 1.018 (1.000-1.030) Urine Protein 3+ H (Negative) Urine Glucose (UA) Negative (Negative) Urine Ketones Negative (Negative) Urine Blood Negative (Negative) Urine Nitrite Negative (Negative) Urine Bilirubin Negative (Negative) Urine Urobilinogen Negative (Negative) Ur Leukocyte Esterase 2+ H (Negative) Urine WBC (Auto) >30 H (0-5) /hpf Urine RBC (Auto) 0-4 (0-4) /hpf U Hyaline Cast (Auto) 1-5 (0-5) /lpf U Epithel Cells (Auto) >30 H (0-5) /lpf Urine Bacteria (Auto) Negative (Negative) Ur Renal Epithelial Cell 0-5 (0-5) /lpf SARS-CoV-2, RNA, NAAT (NEGATIVE) Blood Type Antibody Screen Crossmatch Diagnostic Findings CXR: FINDINGS: An AP, portable, upright chest radiograph is compared to study dated 12/14/2020. The examination is degraded by portable technique and apical lordotic positioning. A left subclavian central venous infusion port and a 2- lead cardiac pacemaker are unchanged in position. The patient is status post midline sternotomy. The heart is enlarged noting atherosclerotic calcification of the thoracic aorta. The pulmonary vasculature is noncongested. Chronic additional thickening is similar to previous. Mild atelectasis is noted at the lung bases appear The lungs and pleural spaces are otherwise clear. No pneumothorax is seen. The skeletal structures are osteopenic. The bony thorax is grossly intact. IMPRESSION: 1. Cardiomegaly and cardiac pacemaker with no radiographic evidence of congestive failure. 2. No airspace consolidation or large pleural effusion is identified.
[2021-06-24 10:24] LABS: Basophils # (auto) 0.03 K/uL (0-0.2); Basophils % (auto) 0.3 %; Eosinophils # (auto) 0.46 K/uL (0-0.5); Eosinophils % (auto) 4.6 %; Hematocrit (blood only) 35.4 % (42-52); Hemoglobin 11.4 g/dL (14.0-18.0); Immature Granulocytes # (auto) 0.07 K/uL (0.00-0.02); Immature Granulocytes % (auto) 0.7 %; Lymphocytes # (auto) 1.25 K/uL (1.2-3.4); Lymphocytes % (auto) 12.5 %; Mean Corpuscular Hemoglobin 29.8 pg (25-34); Mean Corpuscular Hgb Conc 32.2 g/dL (32-36); Mean Corpuscular Volume 92.4 fL (80-100); Monocytes # (auto) 0.33 K/uL (0.11-0.59); Monocytes % (auto) 3.3 %; Neutrophils # (auto) 7.83 K/uL (1.4-6.5); Neutrophils % (auto) 78.6 %; Nucleated RBC # (auto) 0.02 K/uL (0-0); Nucleated RBC % (auto) 0.2 %; Platelet Count 225 K/uL (130-400); RDW Coefficient of Variation 17.7 % (11.5-14.5); RDW Standard Deviation 58.6 fL (36.4-46.3); Red Blood Count 3.83 M/uL (4.7-6.1); White Blood Count 9.97 K/uL (4.8-10.8)
[2021-06-24 10:43] LABS: BUN Creatinine Ratio 19.3 (10-20); Calcium 8.8 mg/dl (8.5-10.1); Creatinine Clr Calc Pharmacy 47.7 ml/min
--- NOTE | 2021-06-24 11:41 | Hospitalist Progress Note ---
Date of Service June 24, 2021 Assessment & Plan (1) SOB (shortness of breath): Plan: Multifactorial : Decompensated heart failure, right-sided heart failure complaints, history diastolic dysfunction, underlying pulmonary hypertension secondary to COPD/KATHE on CPAP Symptomatic anemia (hemoglobin drop from baseline secondary to recurrent UGI B, history of Henning's esophagus/AVM) Patient got 2 PRBC yesterday hemoglobin improved from 8 on admission to 11.4 this morning Chest pain resolved. Review of outpatient labs showed patient's hemoglobin ranges from 10-12. Patient's presentation and symptoms with chest pain and shortness of breath l ikely related to symptomatic anemia. Will continue IV Lasix for now. Cardiology evaluation and recommendations appreciated Based on history of chronic dark stools, multiple scopes in the past, discussed with gastroenterology. Patient planned for push enteroscopy tomorrow. We will keep n.p.o. after midnight. Continue IV PPI for now. Monitor hemoglobin History of recurrent prostate cancer status post radiation Obstructive urinary symptoms Was started on empirical ceftriaxone for possible UTI based on UA. Plan to discontinue if urine culture is negative. Start flomax CAD status post CABG sp stent/ PVD/TIA AVB s/p PPM Hypertension Continue atorvastatin, Imdur DM2 insulin requiring, well-controlled as of recent hemoglobin A1c of 6.14 February 2021 A1c is 5.8 Continue insulin per protocol while inpatient CKD3 Stable Monitor Cr Avoid nephrotoxins Difficult intubation as per records Past tobacco abuse Continue BiPAP at bedtime Outpatient follow-up visit with sleep medicine (last follow-up was 2019 as per records, repeat polysomnography recommended at that time given patient's old machine as per note) DVT prophylaxis. SCDs RE U GIB Full code Admission and Anticipated Discharge Date Admission Date: June 23, 2021 Subjective Patient seen and examined. Reports chronic dyspnea on exertion. Reported chest pain on presentation which is currently resolved. Reports chronic dark stools. Denies any dizziness, headache Denies cough,Palpitations. Denies nausea, vomiting, abdominal pain, diarrhea constipation Denies dysuria, frequency. Has chronic treatment of incomplete emptying, weak stream, occasional terminal dribbling. Physical Exam Constitutional: + well hydrated and + obese; no acute distress Eyes: PERRL, conjunctivae normal, anicteric sclerae ENMT: external ear and nose normal, oropharynx normal Respiratory: normal respiratory effort, lungs clear to auscultation Cardiovascular: Rate/Rhythm: regular rate and regular rhythm S1 S2 Gastrointestinal (Abdomen): normal bowel sounds, soft, nontender, no hepatosplenomegaly Musculoskeletal: + Pedal edema Neurologic: PERRL, EOMI, accommodation nl, no face palsy, no dysarthria Psychiatric: A+Ox3, euthymic affect Results & Data Results & Data ([facility]) Vital Signs (Past 12 Hours) Vital Signs Temp Pulse Pulse Resp BP BP Pulse Ox 06/24/21 07:40 36.6 C 73 18 130/74 96 06/24/21 06:35 36.6 C 66 18 129/74 98 06/24/21 05:22 36.9 C 69 18 120/60 95 06/24/21 04:22 36.7 C 68 18 129/65 95 06/24/21 03:52 36.6 C 66 18 127/75 97 06/24/21 03:37 36.8 C 66 16 128/74 94 06/24/21 03:30 83 06/24/21 03:21 36.7 C 72 18 134/75 97 06/24/21 03:05 36.7 C 70 18 131/67 95 06/24/21 02:35 36.7 C 68 18 134/75 98 06/24/21 01:59 36.7 C 68 18 130/76 95 06/24/21 00:59 36.7 C 68 18 134/73 97 06/23/21 23:59 36.7 C 67 18 123/67 97 Laboratory Results Abnormal lab results 06/23/21 06/23/21 06/23/21 Range/Units 15:58 16:55 16:55 WBC 11.09 H (4.8-10.8) K/uL RBC 2.67 L (4.7-6.1) M/uL Hgb 8.0 L (14.0-18.0) g/dL Hct 25.8 L (42-52) % MCHC 31.0 L (32-36) g/dL RDW Std Deviation 60.5 H (36.4-46.3) fL RDW Coeff of Joey 17.3 H (11.5-14.5) % Neut # (Auto) 9.52 H (1.4-6.5) K/uL Lymph # (Auto) 0.93 L (1.2-3.4) K/uL Immature Gran # (Auto) 0.04 H (0.00-0.02) K/uL Absolute Nucleated RBC (0-0) K/uL BUN 27 H (6-23) mg/dl Creatinine (0.6-1.4) mg/dl BUN/Creatinine Ratio 20.8 H (10-20) Glucose 128 H (70-99(Fasting)) mg/dl POC Glucose (70-99) mg/dl Hemoglobin A1c (4.5-5.6) % Calcium 8.4 L (8.5-10.1) mg/dl B-Natriuretic Peptide (0-100) pg/ml Total Protein 5.8 L (6.0-8.3) gm/dl Albumin 3.0 L (3.4-5.0) gm/dl Urine Protein 3+ H (Negative) Ur Leukocyte Esterase 2+ H (Negative) Urine WBC (Auto) >30 H (0-5) /hpf U Epithel Cells (Auto) >30 H (0-5) /lpf Crossmatch 06/23/21 06/23/21 06/23/21 Range/Units 16:55 19:14 23:39 WBC (4.8-10.8) K/uL RBC (4.7-6.1) M/uL Hgb (14.0-18.0) g/dL Hct (42-52) % MCHC (32-36) g/dL RDW Std Deviation (36.4-46.3) fL RDW Coeff of Joey (11.5-14.5) % Neut # (Auto) (1.4-6.5) K/uL Lymph # (Auto) (1.2-3.4) K/uL Immature Gran # (Auto) (0.00-0.02) K/uL Absolute Nucleated RBC (0-0) K/uL BUN (6-23) mg/dl Creatinine (0.6-1.4) mg/dl BUN/Creatinine Ratio (10-20) Glucose (70-99(Fasting)) mg/dl POC Glucose 251 H (70-99) mg/dl Hemoglobin A1c (4.5-5.6) % Calcium (8.5-10.1) mg/dl B-Natriuretic Peptide 286 H (0-100) pg/ml Total Protein (6.0-8.3) gm/dl Albumin (3.4-5.0) gm/dl Urine Protein (Negative) Ur Leukocyte Esterase (Negative) Urine WBC (Auto) (0-5) /hpf U Epithel Cells (Auto) (0-5) /lpf Crossmatch See Detail 06/24/21 06/24/21 06/24/21 Range/Units 09:54 09:54 09:54 WBC (4.8-10.8) K/uL RBC 3.83 L (4.7-6.1) M/uL Hgb 11.4 L D (14.0-18.0) g/dL Hct 35.4 L (42-52) % MCHC (32-36) g/dL RDW Std Deviation 58.6 H (36.4-46.3) fL RDW Coeff of Joey 17.7 H (11.5-14.5) % Neut # (Auto) 7.83 H (1.4-6.5) K/uL Lymph # (Auto) (1.2-3.4) K/uL Immature Gran # (Auto) 0.07 H (0.00-0.02) K/uL Absolute Nucleated RBC 0.02 H (0-0) K/uL BUN 29 H (6-23) mg/dl Creatinine 1.50 H (0.6-1.4) mg/dl BUN/Creatinine Ratio (10-20) Glucose (70-99(Fasting)) mg/dl POC Glucose (70-99) mg/dl Hemoglobin A1c 5.8 H (4.5-5.6) % Calcium (8.5-10.1) mg/dl B-Natriuretic Peptide (0-100) pg/ml Total Protein (6.0-8.3) gm/dl Albumin (3.4-5.0) gm/dl Urine Protein (Negative) Ur Leukocyte Esterase (Negative) Urine WBC (Auto) (0-5) /hpf U Epithel Cells (Auto) (0-5) /lpf Crossmatch 06/24/21 Range/Units 12:16 WBC (4.8-10.8) K/uL RBC (4.7-6.1) M/uL Hgb 11.3 L (14.0-18.0) g/dL Hct 35.6 L (42-52) % MCHC (32-36) g/dL RDW Std Deviation (36.4-46.3) fL RDW Coeff of Joey (11.5-14.5) % Neut # (Auto) (1.4-6.5) K/uL Lymph # (Auto) (1.2-3.4) K/uL Immature Gran # (Auto) (0.00-0.02) K/uL Absolute Nucleated RBC (0-0) K/uL BUN (6-23) mg/dl Creatinine (0.6-1.4) mg/dl BUN/Creatinine Ratio (10-20) Glucose (70-99(Fasting)) mg/dl POC Glucose (70-99) mg/dl Hemoglobin A1c (4.5-5.6) % Calcium (8.5-10.1) mg/dl B-Natriuretic Peptide (0-100) pg/ml Total Protein (6.0-8.3) gm/dl Albumin (3.4-5.0) gm/dl Urine Protein (Negative) Ur Leukocyte Esterase (Negative) Urine WBC (Auto) (0-5) /hpf U Epithel Cells (Auto) (0-5) /lpf Crossmatch
[2021-06-24 11:51] LABS: Estimated Average Glucose 120 mg/dl; Hemoglobin A1C 5.8 % (4.5-5.6)
[2021-06-24 12:42] LABS: Hematocrit (blood only) 35.6 % (42-52); Hemoglobin 11.3 g/dL (14.0-18.0)
[2021-06-24] MEDS ORDERED: cefTRIAXone SODIUM 2,000 MG in DEXTROSE 5% 50 ML IV SCH (20:30)
[2021-06-24] MEDS: ATORVASTATIN 40 MG TAB PO SCH (20:44)
[2021-06-24] MEDS: TAMSULOSIN HCL 0.4 MG CAP PO SCH (20:44)
[2021-06-25] MEDS: INSULIN ASPART PER UNIT SC SCH ×4 (00:15→17:53)
[2021-06-25] MEDS: PANTOprazole 40 MG in DEXTROSE 5% 100 ML IV SCH ×5 (00:16→20:35)
--- NOTE | 2021-06-25 06:54 | Electrocardiogram Report ---
Test Reason : Blood Pressure : / mmHG Vent. Rate : 073 BPM Atrial Rate : 073 BPM P-R Int : 180 ms QRS Dur : 158 ms QT Int : 462 ms P-R-T Axes : 019 269 058 degrees QTc Int : 508 ms Atrial-sensed ventricular-paced rhythm Abnormal ECG When compared with ECG of 16-DEC-2020 12:25, Premature ventricular complexes are no longer Present Confirmed by Carlyle Quinn ([id number]) on 06/25/2021 6:53:58 AM Referred By: REFERRED SELF Confirmed By:Carlyle Quinn
[2021-06-25 07:40] LABS: Hematocrit (blood only) 32.2 % (42-52); Hemoglobin 10.3 g/dL (14.0-18.0); Mean Corpuscular Hemoglobin 29.6 pg (25-34); Mean Corpuscular Volume 92.5 fL (80-100); Mean Platelet Volume 8.8 fL (7.4-10.4); Platelet Count 201 K/uL (130-400); RDW Coefficient of Variation 17.7 % (11.5-14.5); RDW Standard Deviation 58.7 fL (36.4-46.3); Red Blood Count 3.48 M/uL (4.7-6.1); White Blood Count 9.59 K/uL (4.8-10.8)
[2021-06-25] MEDS: allopurinoL 300 MG TAB PO SCH (08:02)
[2021-06-25] MEDS: FLUTICASONE PROPIONATE NA SPR 16 GM BTL SCH (08:02)
[2021-06-25] MEDS: ISOSORBIDE MONO EXTENDED REL 30 MG TABCR PO SCH (08:02)
[2021-06-25] MEDS: FOLIC ACID 1 MG TAB PO SCH (08:02)
[2021-06-25] MEDS: ADVANCED PROBIOTIC 1250 MG CAPSULE PO SCH (08:02)
[2021-06-25] MEDS: INSULIN GLARGINE SOLOSTAR 100 UNITS/ML 3 ML PEN SC SCH ×2 (08:03→21:03)
[2021-06-25 08:42] LABS: BUN Creatinine Ratio 17.8 (10-20); Calcium 8.3 mg/dl (8.5-10.1); Creatinine Clr Calc Pharmacy 43.8 ml/min; Est GFR (African American) 46.1 ml/min; Est GFR (Non-African American) 39.8 ml/min; Magnesium 1.9 mg/dl (1.7-2.4); Potassium 3.6 mmol/L (3.5-5.1)
[2021-06-25 09:32] LABS: Phosphorus 3.9 mg/dl (2.5-4.9)
--- NOTE | 2021-06-25 10:24 | Cardiology Progress Note ---
Date of Service June 25, 2021 Assessment & Plan (1) SOB (shortness of breath): (2) Anemia: (3) Coronary artery disease: (4) Sleep apnea: (5) Psoriatic arthritis: (6) Morbid obesity: (7) COPD (chronic obstructive pulmonary disease): (8) CKD (chronic kidney disease) stage 4, GFR 15-29 ml/min: (9) Chronic respiratory failure: (10) Second degree atrioventricular block: (11) Chronic diastolic CHF (congestive heart failure): Plan: Progressive shortness of breath and volume overload in the setting of worsening anemia. Chest x-ray without significant volume overload. Patient is currently in high output heart failure, right greater than left. Will need to maintain hemoglobin greater than 10. No longer examines is volume overloaded. Will give p.m. dose of IV Lasix given the likely need for IV fluids during upcoming procedure but then hold a.m. dose and evaluate volume status clinically. His I's and O's have not been documented but need to be along with daily weights on the same standing scale. Given history of prostate cancer and recent issues with urinary retention recommend at least discussing case with urology by the primary team. Seen by urology on 06/16, recommendations: He has a rising PSA s/p brachytherapy. His CT shows some borderline enalrged pelvic lymph nodes, and his CT is negative for evidence of bony metastasis. We discussed the option of starting hormonal therapy, but given his cardiac history I would like to wait until there is definite measurable metastatic disease. Will check a CT of the pelvis and PSA in about three months. Patient should be maintained on telemetry. In terms of preop risk assessment she requires any invasive GI procedures I would place him as a moderate to high risk for any adverse perioperative cardiovascular events given his complex history and current symptoms. I would place his risk at approximately greater than 5%. He states he understands, he is accepting of this risk and would wish to proceed with any procedures deemed necessary. No need to delay from a cardiac standpoint Admission and Anticipated Discharge Date Admission Date: June 23, 2021 Subjective Patient seen and examined, chart reviewed. States he is feeling much better today after the transfusion. Notes the breathing has improved as has his lower extremity edema. For small bowel enteroscopy today. Denies chest pain, shortness of breath, palpitations or lightheadedness. Telemetry reviewed: Ventricularly paced rhythm Review of Systems Review of Systems: All systems reviewed & are unremarkable except as noted in HPI & below Physical Exam Physical Exam: General: Awake, alert and oriented x 3. No acute distress. HEENT: Normocephalic, atraumatic. Pupils equal, round and reactive to light and accommodation. Extraocular muscles are intact. Anicteric sclera. Moist mucous membranes. Neck: No JVD. No bruit. Cardiovascular: Regular. Positive S-4. Normal S-1 and S-2. No S-3. No murmurs or rubs. Pulmonary: Clear to auscultation B/L. No rales, rhonchi or wheezing Abdomen: Bowel sounds x 4, soft. No rebound, guarding or tenderness. No organomegaly. Extremities: No clubbing, cyanosis or edema. +2 pedal pulses bilaterally. Skin: Warm and dry. Results & Data ([facility]) Vital Signs (Past 12 Hours) Vital Signs Temp Pulse Pulse Resp BP Pulse Ox 06/25/21 07:04 36.6 C 72 18 151/78 H 94 06/25/21 04:32 36.7 C 72 18 156/74 H 95 06/25/21 03:49 66 17 93 06/25/21 00:27 72 06/24/21 23:07 36.8 C 63 18 138/72 95 06/24/21 22:33 76 17 96
[2021-06-25] MEDS ORDERED: FUROSEMIDE 40 MG/4 ML VIAL IV ONE (10:25)
--- NOTE | 2021-06-25 12:25 | Hospitalist Progress Note ---
Date of Service June 25, 2021 Assessment & Plan (1) SOB (shortness of breath): Plan: Multifactorial : Decompensated heart failure, right-sided heart failure complaints, history diastolic dysfunction, underlying pulmonary hypertension secondary to COPD/KATHE on CPAP Symptomatic anemia (hemoglobin drop from baseline secondary to recurrent UGI B, history of Henning's esophagus/AVM) Patient got 2 PRBC on admission and hemoglobin improved from 8 on admission to 11.4 yesterday Chest pain resolved. Review of outpatient labs showed patient's hemoglobin ranges from 10-12. Hb is 10.3 today Patient's presentation and symptoms with chest pain and shortness of breath likely related to symptomatic anemia. Cardiology evaluation and recommendations appreciated Getting IV lasix as ordered by Cardiology Based on history of chronic dark stools, multiple scopes in the past, discussed with gastroenterology. Patient planned for push enteroscopy today. Discussed with GI. Procedure was rescheduled to tomorrow Continue IV PPI for now. IV venofer x 1 Monitor hemoglobin History of prostate cancer status post radiation Obstructive urinary symptoms Urine culture grew mixed skin oliver Stop ceftriaxone Continue flomax. Patient on this per outpatient urology notes and patient confirmed Patient has h/o prostate ca. Was seen by [facility] on 06/16/21 for recently elevated PSA in 04/2021. Had CT and Urology plan to repeat PSA and CT pelvis in 3 months. Patient already has appt scheduled. I believe this is an appropriate plan He wanted me to discuss with [facility] U[facility]. I discussed patient with Meron PRITCHARD with [facility] Urology as patient requested. She stated that plan by patient's Uro is appropriate and no need for any changes at this time CAD status post CABG sp stent/ PVD/TIA AVB s/p PPM Hypertension Continue atorvastatin, Imdur DM2 insulin requiring, well-controlled as of recent hemoglobin A1c of 6.14 February 2021 A1c is 5.8 Continue insulin per protocol while inpatient CKD3 Stable Monitor Cr Avoid nephrotoxins Difficult intubation as per records Past tobacco abuse Continue BiPAP at bedtime Outpatient follow-up visit with sleep medicine (last follow-up was 2018 as per records, repeat polysomnography recommended at that time given patient's old machine as per note) DVT prophylaxis. SCDs due to GIB Full code Admission and Anticipated Discharge Date Admission Date: June 23, 2021 Subjective Patient seen and examined. Has had no chest pain since admission Exertional dyspnea and leg swelling improving Denies any dizziness, headache Denies cough,Palpitations, nausea, vomiting, abdominal pain, diarrhea Denies dysuria, frequency. Has chronic incomplete emptying, hesitancy Physical Exam Constitutional: + well hydrated and + obese; no acute distress Eyes: PERRL, conjunctivae normal, anicteric sclerae ENMT: external ear and nose normal, oropharynx normal Respiratory: normal respiratory effort, lungs clear to auscultation Cardiovascular: Rate/Rhythm: regular rate and regular rhythm S1 S2 Gastrointestinal (Abdomen): normal bowel sounds, soft, nontender, no hepatosplenomegaly Musculoskeletal: Pedal edema Neurologic: PERRL, EOMI, accommodation nl, no face palsy, no dysarthria Psychiatric: A+Ox3, euthymic affect Results & Data Results & Data ([facility]) Vital Signs (Past 12 Hours) Vital Signs Temp Pulse Pulse Resp BP Pulse Ox 06/25/21 10:39 36.6 C 64 19 135/75 96 06/25/21 07:04 36.6 C 72 18 151/78 H 94 06/25/21 04:32 36.7 C 72 18 156/74 H 95 06/25/21 03:49 66 17 93 06/25/21 00:27 72 Laboratory Results Abnormal lab results 06/24/21 06/24/21 06/25/21 Range/Units 16:36 20:29 00:05 RBC (4.7-6.1) M/uL Hgb (14.0-18.0) g/dL Hct (42-52) % RDW Std Deviation (36.4-46.3) fL RDW Coeff of Joey (11.5-14.5) % BUN (6-23) mg/dl Creatinine (0.6-1.4) mg/dl POC Glucose 135 H 223 H 102 H (70-99) mg/dl Calcium (8.5-10.1) mg/dl 06/25/21 06/25/21 Range/Units 07:24 07:24 RBC 3.48 L (4.7-6.1) M/uL Hgb 10.3 L (14.0-18.0) g/dL Hct 32.2 L (42-52) % RDW Std Deviation 58.7 H (36.4-46.3) fL RDW Coeff of Joey 17.7 H (11.5-14.5) % BUN 29 H (6-23) mg/dl Creatinine 1.63 H (0.6-1.4) mg/dl POC Glucose (70-99) mg/dl Calcium 8.3 L (8.5-10.1) mg/dl
--- NOTE | 2021-06-25 12:43 | Gastroenterology Progress Note ---
Date of Service June 25, 2021 Assessment & Plan (1) Anemia: (2) SOB (shortness of breath): (3) CHF (congestive heart failure): Plan: 80 y/o male with multiple co-morbidities, including chronic SNOW on IV iron, Henning's, h/o small bowel AVM's s/p tx, chronic daily black stools, and recent endoscopy w/o source of GIB. Admitted w/ dyspnea, weight gain and leg edema, w/u c/w CHF and he is being treated for this. We are consulted for concern of UGIB. He had a drop in HGB that responded to 2 units pRBC transfusion. He is being diuresed. His SOB is improved and he is feeling better. He's having no melena or hematochezia, no hematemesis or elevated BUN suggestive of active GIB. On exam abd is soft, nontender. - SBE was planned for today, however, after review and anesthesia input, this was deferred today given his cardiopulmonary co-morbidities - Can have clear liquid diet today, then NPO after midnight in anticipation of SBE tomorrow - Continue mgmt and optimization of CHF as per primary/cardiology teams - Continue PPI - Monitor and document GI output - Trend H&H, transfuse PRN - Continue IV iron infusions per Heme/Onc's direction, monitor blood count. Thank you for allowing us to participate in the care of this patient. Please call with any acute changes, questions or concerns. Please see addendum below with additional recommendation from my supervising physician. Admission and Anticipated Discharge Date Admission Date: June 23, 2021 Supervising Physician Co-Signing Physician Notes I saw and evaluated the patient. He was scheduled for an upper endoscopy enteroscopy this morning however due to a question of his cardiac and respiratory status the procedure was delayed. Upon discussion with anesthesia it appears that the procedure can be performed in the endoscopy unit on Tuesday. Recommendations N.p.o. at midnight please, patient may have a full liquid diet today Subjective Patient seen and examined, chart reviewed. Patient with no acute changes overnight. Breathing a little better. No abdominal pain, no melena or hem atochezia, hematemesis. Labs are stable. Physical Exam Constitutional: WD/WN, vitals as above Eyes: PERRL, conjunctivae normal, anicteric sclerae Neck: 1+ bilateral pretibial edema Respiratory: normal respiratory effort, lungs clear to auscultation Cardiovascular: Rate/Rhythm: regular rate and regular rhythm Gastrointestinal (Abdomen): normal bowel sounds, soft, nontender, no hepatosplenomegaly Skin: no rashes, warm and dry Psychiatric: A+Ox3, euthymic affect Results & Data ([facility]) Vital Signs (Past 12 Hours) Vital Signs Temp Pulse Pulse Resp BP Pulse Ox 06/25/21 10:39 36.6 C 64 19 135/75 96 06/25/21 07:04 36.6 C 72 18 151/78 H 94 06/25/21 04:32 36.7 C 72 18 156/74 H 95 06/25/21 03:49 66 17 93 Laboratory Results 06/25/21 06/25/21 06/25/21 Range/Units 12:16 09:25 07:24 WBC (4.8-10.8) K/uL RBC (4.7-6.1) M/uL Hgb (14.0-18.0) g/dL Hct (42-52) % MCV (80-100) fL MCH (25-34) pg MCHC (32-36) g/dL RDW Std Deviation (36.4-46.3) fL RDW Coeff of Joey (11.5-14.5) % Plt Count (130-400) K/uL MPV (7.4-10.4) fL Sodium 137 (136-145) mmol/L Potassium 3.6 (3.5-5.1) mmol/L Chloride 101 (98-107) mmol/L Carbon Dioxide 29 (21-32) mmol/L Anion Gap 7 (3-11) BUN 29 H (6-23) mg/dl Creatinine 1.63 H (0.6-1.4) mg/dl Est Cr Clr Drug Dosing 43.8 ml/min Est GFR ( Amer) 46.1 ml/min Est GFR (Non-Af Amer) 39.8 ml/min BUN/Creatinine Ratio 17.8 (10-20) Glucose 76 (70-99(Fasting)) mg/dl POC Glucose 90 82 (70-99) mg/dl Calcium 8.3 L (8.5-10.1) mg/dl Phosphorus 3.9 (2.5-4.9) mg/dl Magnesium 1.9 (1.7-2.4) mg/dl 06/25/21 06/25/21 06/25/21 Range/Units 07:24 06:12 00:05 WBC 9.59 (4.8-10.8) K/uL RBC 3.48 L (4.7-6.1) M/uL Hgb 10.3 L (14.0-18.0) g/dL Hct 32.2 L (42-52) % MCV 92.5 (80-100) fL MCH 29.6 (25-34) pg MCHC 32.0 (32-36) g/dL RDW Std Deviation 58.7 H (36.4-46.3) fL RDW Coeff of Joey 17.7 H (11.5-14.5) % Plt Count 201 (130-400) K/uL MPV 8.8 (7.4-10.4) fL Sodium (136-145) mmol/L Potassium (3.5-5.1) mmol/L Chloride (98-107) mmol/L Carbon Dioxide (21-32) mmol/L Anion Gap (3-11) BUN (6-23) mg/dl Creatinine (0.6-1.4) mg/dl Est Cr Clr Drug Dosing ml/min Est GFR ( Amer) ml/min Est GFR (Non-Af Amer) ml/min BUN/Creatinine Ratio (10-20) Glucose (70-99(Fasting)) mg/dl POC Glucose 82 102 H (70-99) mg/dl Calcium (8.5-10.1) mg/dl Phosphorus (2.5-4.9) mg/dl Magnesium (1.7-2.4) mg/dl 06/24/21 06/24/21 06/24/21 Range/Units 20:29 16:36 12:16 WBC (4.8-10.8) K/uL RBC (4.7-6.1) M/uL Hgb 11.3 L (14.0-18.0) g/dL Hct 35.6 L (42-52) % MCV (80-100) fL MCH (25-34) pg MCHC (32-36) g/dL RDW Std Deviation (36.4-46.3) fL RDW Coeff of Joey (11.5-14.5) % Plt Count (130-400) K/uL MPV (7.4-10.4) fL Sodium (136-145) mmol/L Potassium (3.5-5.1) mmol/L Chloride (98-107) mmol/L Carbon Dioxide (21-32) mmol/L Anion Gap (3-11) BUN (6-23) mg/dl Creatinine (0.6-1.4) mg/dl Est Cr Clr Drug Dosing ml/min Est GFR ( Amer) ml/min Est GFR (Non-Af Amer) ml/min BUN/Creatinine Ratio (10-20) Glucose (70-99(Fasting)) mg/dl POC Glucose 223 H 135 H (70-99) mg/dl Calcium (8.5-10.1) mg/dl Phosphorus (2.5-4.9) mg/dl Magnesium (1.7-2.4) mg/dl
[2021-06-25] MEDS ORDERED: IRON SUCROSE 300 MG in SODIUM CHLORIDE 0.9% 250 ML IV ONE (15:00)
[2021-06-25] MEDS: ATORVASTATIN 40 MG TAB PO SCH (21:03)
[2021-06-25] MEDS: TAMSULOSIN HCL 0.4 MG CAP PO SCH (21:03)
[2021-06-26] MEDS: INSULIN ASPART PER UNIT SC SCH ×5 (00:25→21:43)
[2021-06-26] MEDS ORDERED: HEPARIN 100 UNIT/ML 5ML FLUSH FLUSH PRN (01:04)
[2021-06-26] MEDS: PANTOprazole 40 MG in DEXTROSE 5% 100 ML IV SCH ×4 (01:50→14:41)
[2021-06-26 06:38] LABS: Hematocrit (blood only) 32.9 % (42-52); Hemoglobin 10.5 g/dL (14.0-18.0); Mean Corpuscular Hemoglobin 29.4 pg (25-34); Mean Corpuscular Hgb Conc 31.9 g/dL (32-36); Mean Corpuscular Volume 92.2 fL (80-100); Platelet Count 222 K/uL (130-400); RDW Coefficient of Variation 17.3 % (11.5-14.5); Red Blood Count 3.57 M/uL (4.7-6.1); White Blood Count 10.08 K/uL (4.8-10.8)
[2021-06-26 07:10] LABS: BUN Creatinine Ratio 15.6 (10-20); Calcium 8.5 mg/dl (8.5-10.1); Creatinine Clr Calc Pharmacy 50.6 ml/min; Est GFR (African American) 54.9 ml/min; Est GFR (Non-African American) 47.4 ml/min; Potassium 3.6 mmol/L (3.5-5.1)
[2021-06-26] MEDS: FLUTICASONE PROPIONATE NA SPR 16 GM BTL SCH (07:32)
[2021-06-26] MEDS: ISOSORBIDE MONO EXTENDED REL 30 MG TABCR PO SCH (07:32)
[2021-06-26] MEDS: FOLIC ACID 1 MG TAB PO SCH (07:33)
[2021-06-26] MEDS: allopurinoL 300 MG TAB PO SCH (07:33)
[2021-06-26] MEDS: ADVANCED PROBIOTIC 1250 MG CAPSULE PO SCH (07:33)
[2021-06-26] MEDS: INSULIN GLARGINE SOLOSTAR 100 UNITS/ML 3 ML PEN SC SCH ×2 (08:19→21:39)
--- NOTE | 2021-06-26 10:51 | Anesthesiology Consultation ---
Date of Service June 26, 2021 Assessment & Plan (1) Encounter for pre-operative examination: Chart Review Chart Review: Acceptable Risk for Surgery History Surgery Operation Date: 06/25/21 17:00 Proposed Procedures p Small Bowel Enteroscopy - Ethel Sanchez DO Operation Date: 06/26/21 16:45 Proposed Procedures p Esophagogastroduodenoscopy with Small Bowel Enteroscopy Dr Montes - Que Montes MD Height/Weight Height: 5 ft 4 in Weight: 118.4 kg Allergies Allergy/AdvReac Type Severity Reaction Status Date / Time methylprednisolone AdvReac Severe AMS Verified 06/23/21 17:35 hydromorphone [From Dilaudid] AdvReac Intermediate Nausea Verified 06/23/21 17:35 prednisone AdvReac Intermediate INCREASE Verified 06/23/21 17:35 BLOOD SUGAR Medications Home Medications Medication Instructions Recorded Confirmed Last Taken atorvastatin 80 mg tablet 80 mg PO QPM 11/13/17 06/23/21 06/22/21 fluticasone propionate 50 2 spray INTRANASAL DAILY 11/13/17 06/23/21 06/23/21 mcg/actuation nasal spray,suspension (Flonase Allergy Relief) insulin degludec 200 unit/mL (3 120 unit SUBCUT QAM 11/13/17 06/23/21 06/23/21 mL) subcutaneous pen (Tresiba FlexTouch U-200 insulin) nitroglycerin 0.4 mg sublingual 0.4 mg SUBLINGUAL UD PRN 11/13/17 06/23/21 Unknown tablet (Nitrostat) etanercept 50 mg/mL (1 mL) 1 dose SUBCUT WK 04/10/18 06/23/21 06/23/21 subcutaneous pen injector (Enbrel SureClick) furosemide 80 mg tablet (Lasix) 80 mg PO QAM 04/20/18 06/23/21 06/23/21 omeprazole 20 mg tablet,delayed 20 mg PO BID #60 tab 10/14/19 06/23/21 06/23/21 08:00 release allopurinol 300 mg tablet 300 mg PO DAILY 06/09/20 06/23/21 06/23/21 aspirin 81 mg tablet,delayed 81 mg PO DAILY 06/09/20 06/23/21 06/23/21 release (Aspirin Low Dose) folic acid 1 mg tablet 1 mg PO DAILY 06/09/20 06/23/21 06/23/21 insulin aspart U-100 100 unit/mL 30 unit SUBCUT TIDM 10/29/20 06/23/21 06/23/21 12:00 (3 mL) subcutaneous pen (Novolog Flexpen U-100 Insulin aspart) liraglutide 0.6 mg/0.1 mL (18 mg/3 1.8 mg SUBCUT QAM 10/29/20 06/23/21 06/23/21 mL) subcutaneous pen injector (Victoza 3-Kei) hydrocodone 5 mg-acetaminophen 325 1 tab PO Q4H PRN #10 tab 12/16/20 06/23/21 Unknown mg tablet isosorbide mononitrate 30 mg 30 mg PO QAM 30 Days #30 tab 12/16/20 06/23/21 06/23/21 tablet,extended release 24 hr Lactobacillus acidophilus 10 10,000 mmu cells PO DAILY 05/19/21 06/23/21 06/23/21 billion cell capsule (Probiotic) peppermint oil 90 mg 90 mg PO DAILY 05/19/21 06/23/21 06/23/21 capsule,delayed,extended release (IBgard) Active Medications Generic Name Dose Route Start Last Admin Trade Name Freq PRN Reason Stop Dose Admin Allopurinol 300 mg 06/24/21 09:00 06/26/21 07:33 Allopurinol 300 Mg Tab PO 07/24/21 08:59 300 mg DAILY ELMER Administration Atorvastatin Calcium 80 mg 06/23/21 22:23 06/25/21 21:03 Atorvastatin 40 Mg Tab PO 07/23/21 22:22 80 mg QPM ELMER Administration Fluticasone Propionate 2 sprays 06/24/21 09:00 06/26/21 07:32 Fluticasone Propionate Na Spr 16 Gm Btl NA 07/24/21 08:59 2 sprays DAILY ELMER Administration Folic Acid 1 mg 06/24/21 09:00 06/26/21 07:33 Folic Acid 1 Mg Tab PO 07/24/21 08:59 1 mg DAILY ELMER Administration Pantoprazole Sodium 40 mg/ 100 mls @ 20 mls/hr 06/23/21 21:00 06/26/21 07:12 Dextrose IV 07/23/21 20:59 8 mg/hr Q5H ELMER 20 mls/hr Administration 8 MG/HR Insulin Aspart 0 units 06/23/21 22:45 06/26/21 06:21 Insulin Aspart Per Unit SC 07/23/21 22:44 Not Given Q6 ELMER Insulin Glargine 10 units 06/24/21 09:00 06/26/21 08:19 Insulin Glargine Solostar 100 Units/Ml 3 Ml Pen SC 07/24/21 08:59 Not Given BID ELMER Isosorbide Mononitrate 30 mg 06/24/21 09:00 06/26/21 07:32 Isosorbide [place] Extended Rel 30 Mg Tabcr PO 07/24/21 08:59 30 mg QAM ELMER Administration Lactobacillus Acidophilus 2 cap 06/24/21 09:00 06/26/21 07:33 Advanced Probiotic 1250 Mg Capsule PO 07/24/21 08:59 2 cap DAILY ELMER Administration Tamsulosin HCl 0.4 mg 06/24/21 21:00 06/25/21 21:03 Tamsulosin Hcl 0.4 Mg Cap PO 07/24/21 20:59 0.4 mg HS ELMER Administration Past Medical History Medical History Anemia IRON INFUSIONS EVERY OTHER WEEK Chronic diastolic CHF (congestive heart failure) Chronic GI bleeding Chronic obstructive pulmonary disease CKD (chronic kidney disease), stage IV Diabetes mellitus, type 2 Diverticular disease GERD (gastroesophageal reflux disease) History of colon polyps History of COVID-19 02/2021>NO SYMPTOMS *TESTED AT [facility] History of prostate cancer radiation seeds Hx of gout Hyperlipidemia Hypertension IDDM (insulin dependent diabetes mellitus) Obesity On home oxygen therapy 2L N/C AT HS WITH CPAP Osteoarthritis Pacemaker Psoriasis Sleep apnea CPAP WITH O2 AT 2L Past Family History Family History Son Family history of diabetes mellitus Other No family history of adverse response to anesthesia Past Surgical History Surgical History History of cardiac cath had 4 total--last 2015 @ [facility] History of colonoscopy History of esophagogastroduodenoscopy (EGD) History of heart artery stent x6 stents total History of prostate biopsy malignant History of tooth extraction S/P CABG x 3 2008 @ [facility]---follows with Dr. Rolon Status post LASIK surgery of both eyes Social History Smoking Status: Former smoker tobacco type: cigarettes Hx Alcohol Use: No Hx Substance Use: No substance use type: does not use Physical Exam Vital Signs Last Vital Signs Temp 36.3 C L 06/26/21 07:31 Pulse 60 06/26/21 07:31 Resp 19 06/26/21 07:31 BP 161/78 H 06/26/21 07:31 Pulse Ox 96 06/26/21 07:31 Testing Laboratory Results 06/26/21 06:06 06/26/21 06:06 Hemoglobin A1c 5.8 % (4.5-5.6) H 06/24/21 09:54 Urine Color Yellow 06/23/21 15:58 Urine Appearance Clear (Clear) 06/23/21 15:58 Urine pH 5.0 (4.5-7.5) 06/23/21 15:58 Ur Specific [place] 1.018 (1.000-1.030) 06/23/21 15:58 Urine Protein 3+ (Negative) H 06/23/21 15:58 Urine Glucose (UA) Negative (Negative) 06/23/21 15:58 Urine Ketones Negative (Negative) 06/23/21 15:58 Urine Nitrite Negative (Negative) 06/23/21 15:58 Ur Leukocyte Esterase 2+ (Negative) H 06/23/21 15:58 Urine WBC (Auto) >30 /hpf (0-5) H 06/23/21 15:58 Urine RBC (Auto) 0-4 /hpf (0-4) 06/23/21 15:58 U Hyaline Cast (Auto) 1-5 /lpf (0-5) 06/23/21 15:58 U Epithel Cells (Auto) >30 /lpf (0-5) H 06/23/21 15:58 Urine Bacteria (Auto) Negative (Negative) 06/23/21 15:58 Blood Type A Positive 06/23/21 19:14 Antibody Screen NEGATIVE 06/23/21 19:14 06/23/21 15:58 Urine Culture - Final Urine,Clean Catch More than three types of organisms present, all low counts mixed probable skin oliver. No further identifications or sensitivities to follow. 06/26/21 06/26/21 06:08 00:06 POC Glucose 87 169 H Electrocardiogram Date: 06/23/21 AV paced rate of 73 Chest X-Ray Date: 06/23/21 Findings: + cardiomegaly pacemaker no evidence of congestive failure Echocardiogram Date: 06/26/21 EF: 55-60% LV Function: normal Other Findings: + diastolic dysfunction Valvular Disease: + no significant valvular disease
--- NOTE | 2021-06-26 12:49 | Hospitalist Progress Note ---
Date of Service June 26, 2021 Assessment & Plan (1) SOB (shortness of breath): Plan: Multifactorial : Decompensated heart failure, right-sided heart failure complaints, history diastolic dysfunction, underlying pulmonary hypertension secondary to COPD/KATHE on CPAP Symptomatic anemia (hemoglobin drop from baseline secondary to recurrent UGI B, history of Henning's esophagus/AVM) Patient got 2 PRBC on admission and hemoglobin improved from 8 on admission to 11.4 yesterday Chest pain resolved. Review of outpatient labs showed patient's hemoglobin ranges from 10-12. Hb is 10.5 today Patient's presentation and symptoms with chest pain and shortness of breath likely related to symptomatic anemia. Cardiology evaluation and recommendations appreciated Getting IV lasix as ordered by Cardiology Based on history of chronic dark stools, multiple scopes in the past, discussed with gastroenterology. Patient planned for push enteroscopy today. Continue IV PPI for now. Got IV venofer x 1 yesterday Hb is stable History of prostate cancer status post radiation Obstructive urinary symptoms Urine culture grew mixed skin oliver Stop ceftriaxone Continue flomax. Patient on this per outpatient urology notes and patient confirmed Patient has h/o prostate ca. Was seen by [facility] on 06/16/21 for recently elevated PSA in 04/2021. Had CT and Urology plan to repeat PSA and CT pelvis in 3 months. Patient already has appt scheduled. CAD status post CABG sp stent/ PVD/TIA AVB s/p PPM Hypertension Continue atorvastatin, Imdur DM2 insulin requiring, well-controlled as of recent hemoglobin A1c of 6.14 February 2021 A1c is 5.8 Continue insulin per protocol while inpatient Patient reports he uses Tresiba 120U in the morning and novolog with meals. Patient has not been requiring that much here, likely due to being NPO for procedure most of the time Reports home blood glucose range runs 80-190 Holding AM insulin while NPO CKD3 Stable Monitor Cr Avoid nephrotoxins Difficult intubation as per records Past tobacco abuse Continue BiPAP at bedtime Outpatient follow-up visit with sleep medicine (last follow-up was 2018 as per records, repeat polysomnography recommended at that time given patient's old machine as per note) DVT prophylaxis. SCDs due to GIB Full code Admission and Anticipated Discharge Date Admission Date: June 23, 2021 Subjective Patient seen and examined. No chest pain since admission Leg swelling improving Reported he had been walking around without shortness of breath today Denies any dizziness, headache Denies cough,Palpitations, nausea, vomiting, abdominal pain, diarrhea Denies dysuria, frequency. Has chronic incomplete emptying, hesitancy Blood glucose today has been 87 - 86 Reports he usually get hypoglycemic symptoms when low. None at this time AM insulin on hold as patient is NPO for enteroscopy Physical Exam Constitutional: + well hydrated and + obese; no acute distress Eyes: PERRL, conjunctivae normal, anicteric sclerae ENMT: external ear and nose normal, oropharynx normal Respiratory: normal respiratory effort, lungs clear to auscultation Cardiovascular: Rate/Rhythm: regular rate and regular rhythm S1 S2 Gastrointestinal (Abdomen): normal bowel sounds, soft, nontender, no hepatosplenomegaly Musculoskeletal: Edema improved Neurologic: PERRL, EOMI, accommodation nl, no face palsy, no dysarthria Psychiatric: A+Ox3, euthymic affect Results & Data Results & Data ([facility]) Vital Signs (Past 12 Hours) Vital Signs Temp Pulse Pulse Resp BP Pulse Ox 06/26/21 11:08 36.6 C 73 19 128/62 93 06/26/21 07:31 36.3 C L 60 19 161/78 H 96 06/26/21 02:55 65 20 96 06/26/21 02:52 36.4 C L 64 18 146/73 H 96 Laboratory Results Abnormal lab results 06/25/21 06/25/21 06/26/21 Range/Units 16:21 20:17 00:06 RBC (4.7-6.1) M/uL Hgb (14.0-18.0) g/dL Hct (42-52) % MCHC (32-36) g/dL RDW Std Deviation (36.4-46.3) fL RDW Coeff of Joey (11.5-14.5) % Creatinine (0.6-1.4) mg/dl POC Glucose 45 L* 158 H 169 H (70-99) mg/dl 06/26/21 06/26/21 Range/Units 06:06 06:06 RBC 3.57 L (4.7-6.1) M/uL Hgb 10.5 L (14.0-18.0) g/dL Hct 32.9 L (42-52) % MCHC 31.9 L (32-36) g/dL RDW Std Deviation 57.0 H (36.4-46.3) fL RDW Coeff of Joey 17.3 H (11.5-14.5) % Creatinine 1.41 H (0.6-1.4) mg/dl POC Glucose (70-99) mg/dl
[2021-06-26] MEDS ORDERED: Nursing to Pharmacy Communication SCH ×2 (13:00→17:45)
[2021-06-26] MEDS ORDERED: GLYCOPYRROLATE 0.2 MG/ML VIAL ONE (13:01)
[2021-06-26] MEDS ORDERED: ONDANSETRON INJ 2 MG/ML 2 ML VIAL ONE (13:01)
[2021-06-26] MEDS ORDERED: PROPOFOL IV EMULSION 10 MG/ML 20 ML VIAL IV ONE (13:01)
[2021-06-26] MEDS ORDERED: LIDOCAINE 2% 2 ML VIAL/AMP(20MG/ML) INFIL ONE (13:01)
--- NOTE | 2021-06-26 13:02 | History & Physical Report ---
Date of Service June 26, 2021 Assessment & Plan (1) Anemia: Plan: stable for enteroscopy Admission and Anticipated Discharge Date Admission Date: June 23, 2021 History of Present Illness Chief Complaint: anemia Primary Care Provider: Nicola Prado MD pt with anemia for enteroscopy Allergies Allergy/AdvReac Type Severity Reaction Status Date / Time methylprednisolone AdvReac Severe AMS Verified 06/23/21 17:35 hydromorphone [From Dilaudid] AdvReac Intermediate Nausea Verified 06/23/21 17:35 prednisone AdvReac Intermediate INCREASE Verified 06/23/21 17:35 BLOOD SUGAR Home Medications Medication Instructions Recorded Confirmed Type atorvastatin 80 mg tablet 80 mg PO QPM 11/13/17 06/23/21 History fluticasone propionate 50 2 spray INTRANASAL DAILY 11/13/17 06/23/21 History mcg/actuation nasal spray,suspension (Flonase Allergy Relief) insulin degludec 200 unit/mL (3 120 unit SUBCUT QAM 11/13/17 06/23/21 History mL) subcutaneous pen (Tresiba FlexTouch U-200 insulin) nitroglycerin 0.4 mg sublingual 0.4 mg SUBLINGUAL UD PRN 11/13/17 06/23/21 History tablet (Nitrostat) etanercept 50 mg/mL (1 mL) 1 dose SUBCUT WK 04/10/18 06/23/21 History subcutaneous pen injector (Enbrel SureClick) furosemide 80 mg tablet (Lasix) 80 mg PO QAM 04/20/18 06/23/21 History omeprazole 20 mg tablet,delayed 20 mg PO BID #60 tab 10/14/19 06/23/21 Rx release allopurinol 300 mg tablet 300 mg PO DAILY 06/09/20 06/23/21 History aspirin 81 mg tablet,delayed 81 mg PO DAILY 06/09/20 06/23/21 History release (Aspirin Low Dose) folic acid 1 mg tablet 1 mg PO DAILY 06/09/20 06/23/21 History insulin aspart U-100 100 unit/mL 30 unit SUBCUT TIDM 10/29/20 06/23/21 History (3 mL) subcutaneous pen (Novolog Flexpen U-100 Insulin aspart) liraglutide 0.6 mg/0.1 mL (18 mg/3 1.8 mg SUBCUT QAM 10/29/20 06/23/21 History mL) subcutaneous pen injector (Victoza 3-Kei) hydrocodone 5 mg-acetaminophen 325 1 tab PO Q4H PRN #10 tab 12/16/20 06/23/21 Rx mg tablet isosorbide mononitrate 30 mg 30 mg PO QAM 30 Days #30 tab 12/16/20 06/23/21 Rx tablet,extended release 24 hr Lactobacillus acidophilus 10 10,000 mmu cells PO DAILY 05/19/21 06/23/21 History billion cell capsule (Probiotic) peppermint oil 90 mg 90 mg PO DAILY 05/19/21 06/23/21 History capsule,delayed,extended release (IBgard) Past Med/Surg History Medical History Anemia IRON INFUSIONS EVERY OTHER WEEK Chronic diastolic CHF (congestive heart failure) Chronic GI bleeding Chronic obstructive pulmonary disease CKD (chronic kidney disease), stage IV Diabetes mellitus, type 2 Diverticular disease GERD (gastroesophageal reflux disease) History of colon polyps History of COVID-19 02/2021>NO SYMPTOMS *TESTED AT [facility] History of prostate cancer radiation seeds Hx of gout Hyperlipidemia Hypertension IDDM (insulin dependent diabetes mellitus) Obesity On home oxygen therapy 2L N/C AT HS WITH CPAP Osteoarthritis Pacemaker Psoriasis Sleep apnea CPAP WITH O2 AT 2L Surgical History History of cardiac cath had 4 total--last 2015 @ [facility] History of colonoscopy History of esophagogastroduodenoscopy (EGD) History of heart artery stent x6 stents total History of prostate biopsy malignant History of tooth extraction S/P CABG x 3 2008 @ [facility]---follows with Dr. Rolon Status post LASIK surgery of both eyes Family History Son Family history of diabetes mellitus Other No family history of adverse response to anesthesia Social History Smoking Status: Former smoker Tobacco Type: Cigarettes Second Hand Exposure: No; Hx Alcohol Use: No Hx Substance Use: No Preferred Language: Bolivian Communication Ability: Effective Cosmetician Required: No Beliefs That Will Affect Care: None marital status: Current Living Situation: Family Current Living Situation Comment: /SON AND GRANDSON How many Children do You have: 2 Other Information That Helps Us Care for You: No Feels Safe at Home: Yes Safety Concerns: Feels Safe At This Time Assistive Devices: Glasses and Oxygen - at Night Physical Exam Constitutional: WD/WN, vitals as above Respiratory: normal respiratory effort, lungs clear to auscultation Cardiovascular: RRR, no murmur, no edema Gastrointestinal (Abdomen): normal bowel sounds, soft, nontender, no hepatosplenomegaly Results & Data ([facility]) Vital Signs (Past 12 Hours) Vital Signs Temp Pulse Pulse Resp BP Pulse Ox 06/26/21 11:08 36.6 C 73 19 128/62 93 06/26/21 07:31 36.3 C L 60 19 161/78 H 96 06/26/21 02:55 65 20 96 06/26/21 02:52 36.4 C L 64 18 146/73 H 96 Code Status & VTE Plan VTE Prophylaxis Plan VTE Prophylaxis will be ordered: Yes
--- NOTE | 2021-06-26 14:13 | Anesthesiology Progress Note ---
Date of Service June 26, 2021 Anesthesia Post Procedure Vital Signs Vital Signs: Temp Pulse Pulse Resp BP Pulse Ox 06/26/21 13:56 68 16 126/62 94 06/26/21 13:41 68 16 119/61 94 06/26/21 13:26 67 16 101/42 L 94 06/26/21 12:56 36.3 C L 69 18 141/65 H 98 06/26/21 11:08 36.6 C 73 19 128/62 93 06/26/21 07:31 36.3 C L 60 19 161/78 H 96 06/26/21 02:55 65 20 96 06/26/21 02:52 36.4 C L 64 18 146/73 H 96 06/26/21 00:35 71 19 96 06/25/21 23:10 36.7 C 80 18 142/74 H 94 06/25/21 22:20 65 06/25/21 19:13 36.6 C 75 18 157/81 H 96 06/25/21 15:32 36.4 C L 66 19 134/70 96 06/25/21 15:00 64 20 Transfer of Care Handoff Completed per policy Notes Mental Status: alert / awake / arousable Patient Amnestic to Procedure: Yes Nausea / Vomiting: adequately controlled Pain: adequately controlled Airway Patency, RR, SpO2: stable & adequate BP & HR: stable & adequate Hydration State: stable & adequate Anesthetic Complications: no major complications apparent
--- NOTE | 2021-06-26 14:42 | GI REPORT ---
Patient Name: Maurisio Beltran Procedure Date: 06/26/2021 1:03 PM Date of : 1940 Admit Type: Inpatient Age: 80 Gender: Male Attending MD: Que Montes MD Procedure: Upper GI endoscopy Providers: Que Montes MD Referring MD: Radha Farmer Md Indications: Iron deficiency anemia secondary to chronic blood loss Medicines: See the Anesthesia note for documentation of the administered medications Complications: No immediate complications. Estimated Blood Loss: Estimated blood loss: none. Procedure: Pre-Anesthesia Assessment: - Prior to the procedure, a History and Physical was performed, and patient medications, allergies and sensitivities were reviewed. The patient's tolerance of previous anesthesia was reviewed. - The risks and benefits of the procedure and the sedation options and risks were discussed with the patient. All questions were answered and informed consent was obtained. - Patient identification and proposed procedure were verified prior to the procedure by the physician and the nurse. The procedure was verified in the pre-procedure area. - Pre-procedure physical examination revealed no contraindications to sedation. - After reviewing the risks and benefits, the patient was deemed in satisfactory condition to undergo the procedure. After obtaining informed consent, the endoscope was passed under direct vision. Throughout the procedure, the patient's blood pressure, pulse, and oxygen saturations were monitored continuously. The Colonoscope was introduced through the mouth, and advanced to the jejunum. Small bowel enteroscopy was deemed necessary. The upper GI endoscopy was accomplished without difficulty. The patient tolerated the procedure well. Findings: The esophagus was normal. The stomach was normal. The examined duodenum was normal. The examined jejunum was normal. Impression: - Normal esophagus. - Normal stomach. - Normal examined duodenum. - Normal examined jejunum. - No specimens collected. Recommendation: - Return patient to hospital [facility] for ongoing care. Que Montes M.D. Que Montes MD 06/26/2021 2:42:13 PM This report has been signed electronically. Note Initiated On: 06/26/2021 1:03 PM Number of Addenda: 0 I attest to the content of the Intraoperative Record and orders documented therein, exceptions below {[id number]}
[2021-06-26] MEDS: PANTOprazole 40 MG in SYRINGE 0 ML IV SCH ×2 (15:33→21:39)
--- NOTE | 2021-06-26 16:01 | Cardiology Progress Note ---
Date of Service June 26, 2021 Assessment & Plan (1) SOB (shortness of breath): (2) Anemia: (3) Coronary artery disease: (4) Sleep apnea: (5) Psoriatic arthritis: (6) Morbid obesity: (7) COPD (chronic obstructive pulmonary disease): (8) CKD (chronic kidney disease) stage 4, GFR 15-29 ml/min: (9) Chronic respiratory failure: (10) Second degree atrioventricular block: (11) Chronic diastolic CHF (congestive heart failure): Plan: Progressive shortness of breath and volume overload in the setting of worsening anemia. Chest x-ray without significant volume overload. Patient is currently in high output heart failure, right greater than left. Will need to maintain hemoglobin greater than 10. No longer examines as volume overloaded. Given history of prostate cancer and recent issues with urinary retention recommend at least discussing case with urology by the primary team. Seen by urology on 06/16, recommendations: He has a rising PSA s/p brachytherapy. His CT shows some borderline enalrged pelvic lymph nodes, and his CT is negative for evidence of bony metastasis. We discussed the option of starting hormonal therapy, but given his cardiac history I would like to wait until there is definite measurable metastatic disease. Will check a CT of the pelvis and PSA in about three months. Patient should be maintained on telemetry. In terms of preop risk assessment she requires any invasive GI procedures I would place him as a moderate to high risk for any adverse perioperative cardiovascular events given his complex history and current symptoms. I would place his risk at approximately greater than 5%. He states he understands, he is accepting of this risk and would wish to proceed with any procedures deemed necessary. No need to delay from a cardiac standpoint Admission and Anticipated Discharge Date Admission Date: June 23, 2021 Subjective Pt seen and examined, chart reviewed. OOB in chair, without complaint. Procedure was canceled yesterday and rescheduled for today.No complaints Review of Systems Review of Systems: All systems reviewed & are unremarkable except as noted in HPI & below Physical Exam Physical Exam: General: Awake, alert and oriented x 3. No acute distress. HEENT: Normocephalic, atraumatic. Pupils equal, round and reactive to light and accommodation. Extraocular muscles are intact. Anicteric sclera. Moist mucous membranes. Neck: No JVD. No bruit. Cardiovascular: Regular. Positive S-4. Normal S-1 and S-2. No S-3. No murmurs or rubs. Pulmonary: Clear to auscultation B/L. No rales, rhonchi or wheezing Abdomen: Bowel sounds x 4, soft. No rebound, guarding or tenderness. No organomegaly. Extremities: No clubbing, cyanosis or edema. +2 pedal pulses bilaterally. Skin: Warm and dry. Results & Data ([facility]) Vital Signs (Past 12 Hours) Vital Signs Temp Pulse Resp BP Pulse Ox 06/26/21 15:32 36.6 C 06/26/21 15:22 79 20 158/81 H 96 06/26/21 14:26 36.4 C L 71 20 131/71 98 06/26/21 13:56 68 16 126/62 94 06/26/21 13:41 68 16 119/61 94 06/26/21 13:26 67 16 101/42 L 94 06/26/21 12:56 36.3 C L 69 18 141/65 H 98 06/26/21 11:08 36.6 C 73 19 128/62 93 06/26/21 07:31 36.3 C L 60 19 161/78 H 96
[2021-06-26] MEDS: ATORVASTATIN 40 MG TAB PO SCH (21:38)
[2021-06-26] MEDS: TAMSULOSIN HCL 0.4 MG CAP PO SCH (21:40)
--- NOTE | 2021-06-26 22:52 | Electrocardiogram Report ---
Test Reason : Blood Pressure : / mmHG Vent. Rate : 076 BPM Atrial Rate : 085 BPM P-R Int : 000 ms QRS Dur : 168 ms QT Int : 470 ms P-R-T Axes : 038 267 059 degrees QTc Int : 528 ms Atrial-sensed ventricular-paced rhythm with occasional AV dual-paced complexes Abnormal ECG When compared with ECG of 23-JUN-2021 19:24, Vent. rate has increased BY 3 BPM Confirmed by Carlyle Quinn ([id number]) on 06/26/2021 10:52:22 PM Referred By: REFERRED SELF Confirmed By:Carlyle Quinn
[2021-06-27 08:05] LABS: Hematocrit (blood only) 33.1 % (42-52); Hemoglobin 10.4 g/dL (14.0-18.0); Mean Corpuscular Hemoglobin 29.8 pg (25-34); Mean Corpuscular Hgb Conc 31.4 g/dL (32-36); Mean Corpuscular Volume 94.8 fL (80-100); Mean Platelet Volume 9.3 fL (7.4-10.4); Platelet Count 216 K/uL (130-400); RDW Coefficient of Variation 17.3 % (11.5-14.5); RDW Standard Deviation 59.1 fL (36.4-46.3); Red Blood Count 3.49 M/uL (4.7-6.1)
[2021-06-27 08:27] LABS: BUN Creatinine Ratio 13.5 (10-20); Calcium 8.5 mg/dl (8.5-10.1); Creatinine Clr Calc Pharmacy 43.7 ml/min; Est GFR (African American) 46.1 ml/min; Est GFR (Non-African American) 39.8 ml/min; Potassium 4.2 mmol/L (3.5-5.1)
[2021-06-27] MEDS: INSULIN ASPART PER UNIT SC SCH ×2 (09:13→12:13)
[2021-06-27] MEDS: INSULIN GLARGINE SOLOSTAR 100 UNITS/ML 3 ML PEN SC SCH (09:14)
[2021-06-27] MEDS: PANTOprazole 40 MG in SYRINGE 0 ML IV SCH (09:23)
[2021-06-27] MEDS: ISOSORBIDE MONO EXTENDED REL 30 MG TABCR PO SCH (09:25)
[2021-06-27] MEDS: FOLIC ACID 1 MG TAB PO SCH (09:25)
[2021-06-27] MEDS: allopurinoL 300 MG TAB PO SCH (09:25)
[2021-06-27] MEDS: ADVANCED PROBIOTIC 1250 MG CAPSULE PO SCH (09:26)
[2021-06-27] MEDS: FLUTICASONE PROPIONATE NA SPR 16 GM BTL SCH (09:27)
--- NOTE | 2021-06-27 11:14 | Cardiology Progress Note ---
Date of Service June 27, 2021 Assessment & Plan (1) SOB (shortness of breath): (2) Anemia: (3) Coronary artery disease: (4) Sleep apnea: (5) Psoriatic arthritis: (6) Morbid obesity: (7) COPD (chronic obstructive pulmonary disease): (8) CKD (chronic kidney disease) stage 4, GFR 15-29 ml/min: (9) Chronic respiratory failure: (10) Second degree atrioventricular block: (11) Chronic diastolic CHF (congestive heart failure): Plan: Progressive shortness of breath and volume overload in the setting of worsening anemia. Chest x-ray without significant volume overload. Patient is currently in high output heart failure, right greater than left. Will need to maintain hemoglobin greater than 10. No longer examines as volume overloaded. Given history of prostate cancer and recent issues with urinary retention recommend at least discussing case with urology by the primary team. Seen by urology on 06/16, recommendations: He has a rising PSA s/p brachytherapy. His CT shows some borderline enalrged pelvic lymph nodes, and his CT is negative for evidence of bony metastasis. We discussed the option of starting hormonal therapy, but given his cardiac history I would like to wait until there is definite measurable metastatic disease. Will check a CT of the pelvis and PSA in about three months. Patient should be maintained on telemetry. In terms of preop risk assessment she requires any invasive GI procedures I would place him as a moderate to high risk for any adverse perioperative cardiovascular events given his complex history and current symptoms. I would place his risk at approximately greater than 5%. He states he understands, he is accepting of this risk and would wish to proceed with any procedures deemed necessary. No need to delay from a cardiac standpoint Admission and Anticipated Discharge Date Admission Date: June 23, 2021 Physical Exam Physical Exam: General: Awake, alert and oriented x 3. No acute distress. HEENT: Normocephalic, atraumatic. Pupils equal, round and reactive to light and accommodation. Extraocular muscles are intact. Anicteric sclera. Moist mucous membranes. Neck: No JVD. No bruit. Cardiovascular: Regular. Positive S-4. Normal S-1 and S-2. No S-3. No murmurs or rubs. Pulmonary: Clear to auscultation B/L. No rales, rhonchi or wheezing Abdomen: Bowel sounds x 4, soft. No rebound, guarding or tenderness. No organomegaly. Extremities: No clubbing, cyanosis or edema. +2 pedal pulses bilaterally. Skin: Warm and dry. Results & Data ([facility]) Vital Signs (Past 12 Hours) Vital Signs Temp Pulse Pulse Resp BP Pulse Ox Pulse Ox 06/27/21 11:08 36.6 C 72 19 139/63 95 06/27/21 08:17 80 06/27/21 08:13 96 06/27/21 08:11 36.7 C 93 H 18 113/63 94 06/27/21 03:18 60 20 91 06/27/21 03:00 36.3 C L 61 20 139/75 95 06/27/21 00:10 72 21 96
--- NOTE | 2021-06-27 12:19 | Discharge Summary ---
Date of Service June 27, 2021 Admission HPI Per Admitting Provider Medical history significant for chronic diastolic HF as per records. CAD status post CABG sp stent, PVD, 2 AVB status post PPM, hypertension, hyperlipidemia, DM2 insulin requiring, hx TIA,chronic respiratory failure secondary to COPD/pulmonary hypertension on home O2, KATHE on CPAP, CRI (baseline creatinine 2s), chronic anemia (baseline hemoglobin 11) periodic outpatient Venofer injections, prostate cancer status post radiation, psoriatic arthropathy as per records, difficult intubation as per records, hx Henning's esophagus, AVM, diverticulosis/polyps, past tobacco abuse Last confinement December 2020 for chest pain. Imdur added to patient's regimen. Patient seen by outpatient cardiology provider 3 weeks ago. Patient complained of intermittent achy substernal pain, almost daily not related to exertion. Discomfort not burning as per patient. Chronic black stools without unusual abdominal pain complaints as per patient. Symptoms attributed to atypical discomfort possibly GI related by provider for which PPI prescribed. Persistent discomfort despite compliance with prescription as per patient. In the last 2 days, patient noted shortness of breath worse with exertion along with 7 pound weight gain in about a week. Leg swelling noted as well. Patient also with urinary retention complaints without fever/chills. Patient compliant with home meds. Denies dietary indiscretion. Compliant with home CPAP. Patient consulted ER for evaluation. IV Lasix administered at the ER Admission Exam Per Admitting Provider GENERAL: Comfortable, morbidly obese, pleasant, pleasant, no respiratory distress SKIN: Pallor, warm HEENT: Pale palpebral conjunctivae, no ptosis, dry buccal mucosa NECK : Supple, short neck, no tenderness CHEST : Decreased breath sounds, no tenderness HEART : RRR, no obvious murmurs ABDOMEN: distention, nontender EXTREMITIES : Bilateral LE swelling, no LE tenderness, no other conspicuous deformities noted NEUROLOGIC : Coherent, no facial asymmetry, no other gross focality Principal Diagnosis Symptomatic anemia High output heart failure Discharge Exam Constitutional + well hydrated and + obese; no acute distress Eyes PERRL, conjunctivae normal, anicteric sclerae ENMT external ear and nose normal, oropharynx normal Respiratory normal respiratory effort, lungs clear to auscultation Cardiovascular Rate/Rhythm: regular rate and regular rhythm S1 S2 Gastrointestinal (Abdomen) normal bowel sounds, soft, nontender, no hepatosplenomegaly Musculoskeletal no cyanosis or clubbing, extremities motor strength 5/5 No pedal edema Neurologic PERRL, EOMI, accommodation nl, no face palsy, no dysarthria Psychiatric A+Ox3, euthymic affect Discharge Data Allergies Allergy/AdvReac Type Severity Reaction Status Date / Time methylprednisolone AdvReac Severe AMS Verified 06/23/21 17:35 hydromorphone [From Dilaudid] AdvReac Intermediate Nausea Verified 06/23/21 17:35 prednisone AdvReac Intermediate INCREASE Verified 06/23/21 17:35 BLOOD SUGAR Consultations 06/23/21 19:17 ED Decision to Admit Stat 06/23/21 22:23 Consult Cardiology Routine Consult Gastroenterology Routine Procedures Performed Operation Date: 06/25/21 17:00 <No data on this case meets the specified criteria> Operation Date: 06/26/21 16:45 Actual Procedures p Esophagogastroduodenoscopy - Que Montes MD Ordered Studies 06/24/21 01:15 US venous doppler [facility] Urgent Hospital Course (1) SOB (shortness of breath): Multifactorial : Decompensated heart failure, right-sided heart failure. High output heart failure Symptomatic anemia (hemoglobin drop from baseline secondary to recurrent UGI B, history of Henning's esophagus/AVM) History of diastolic dysfunction, underlying pulmonary hypertension secondary to COPD/KATHE on CPAP Hb was 8 on presentation Review of outpatient labs showed patient's hemoglobin ranges from 10-12. Patient got 2 PRBC on admission and hemoglobin improved Chest pain resolved. Hb has remained in 10s Got IV iron infusion Was comanaged with Cardiology and Gastroenterology Had Upper GI endoscopy which showed normal esophagus, stomach, duodenum and jejunum Continue home medications History of prostate cancer status post radiation Obstructive urinary symptoms Urine culture grew mixed skin oliver Continue flomax. Patient has h/o prostate ca. Was seen by [facility] on 06/16/21 for recently elevated PSA in 04/2021. Had CT and Urology plan to repeat PSA and CT pelvis in 3 months. Patient already has appt scheduled. CAD status post CABG sp stent/ PVD/TIA AVB s/p PPM Hypertension Continue atorvastatin, Imdur DM2 insulin requiring, well-controlled as of recent hemoglobin A1c of 6.14 February 2021 A1c is 5.8 Continue home insulin regimen CKD3 Stable Monitor Cr Avoid nephrotoxins Difficult intubation as per records Past tobacco abuse Continue BiPAP at bedtime Outpatient follow-up visit with sleep medicine (last follow-up was 2018 as per records, repeat polysomnography recommended at that time given patient's old machine as per note) Patient to follow up with his PCP, Cardiology and Nephrology Total Time Total Time Spent Total Time Spent (In Minutes): 50 Total Time Includes: Examination of the Patient, Discharge Planning, Medication Reconciliation and Communication With Other Providers Discharge Plan Discharge Items Patient Disposition: Home - Self-Care Reason For Visit: Chest pain, shortness of breath Discharge Diagnosis: Symptomatic anemia High output heart failure Activity: Resume your previous activity Non-emergency contact: Primary Care Provider, Paddock Judge and Cab Supervisor Call non-emergency contact if: you have any medication questions and your symptoms worsen Follow-up/Referrals: Nicola Prado MD [Primary Care Provider] - (Call for appointment within the week) Diet: Carb Consistent or DM2, Heart Healthy and Low Sodium (2gm) Addtl Attending Provider Instructions: Mr Beltran. You came to the hospital for worsening intermittent chest pain and shortness of breath. You also reported chronic dark stools. Your hemoglobin was low at 8. You got 2 units of blood. Your hemoglobin improved to 10. You also got an iron infusion. Your intermittent chest pain resolved and your shortness of breath improved. You were evaluated and comanaged with the Pond Supervisor and Paddock Judge. You had Upper GI endoscopy which showed normal findings without any bleeding. You are being discharged home. Please continue follow up with your Primary Doctor, Cardiology and Nephrology. It was a pleasure taking care of you. Pending Studies at Discharge: No Stand-Alone Forms: My [facility] [employer], Smoking Cessation Medications and DC Order Prescriptions: Continued Enbrel SureClick 50 mg/mL (0.98 mL) Pen Injector 1 dose subcut WK RF: 0 furosemide [Lasix] 80 mg Tablet 80 mg PO QAM RF: 0 Tresiba FlexTouch U-200 200 unit/mL (3 mL) Insulin Pen 120 unit SUBCUT QAM RF: 0 atorvastatin 80 mg Tablet 80 mg PO QPM RF: 0 nitroglycerin [Nitrostat] 0.4 mg Tablet, Sublingual 0.4 mg Sublingual UD PRN (Reason: Chest Pain) RF: 0 fluticasone propionate [Flonase Allergy Relief] 50 mcg/actuation [place],Suspension 2 spray INTRANASAL DAILY RF: 0 omeprazole 20 mg Tablet,Delayed Release (Dr/Ec) 20 mg PO BID Qty: 60 RF: 1 aspirin [Aspirin Low Dose] 81 mg Tablet,Delayed Release (Dr/Ec) 81 mg PO DAILY RF: 0 folic acid 1 mg tablet 1 mg PO DAILY RF: 0 allopurinol 300 mg tablet 300 mg PO DAILY RF: 0 insulin aspart U-100 [Novolog Flexpen U-100 Insulin] 100 unit/mL (3 mL) insulin pen 30 unit SUBCUT TIDM RF: 0 Victoza 3-Kei 0.6 mg/0.1 mL (18 mg/3 mL) pen injector 1.8 mg SUBCUT QAM RF: 0 isosorbide mononitrate 30 mg Tablet Extended Release 24 Hr 30 mg PO QAM 30 Days Qty: 30 RF: 2 hydrocodone-acetaminophen 5-325 mg Tablet 1 tab PO Q4H PRN (Reason: severe pain) Qty: 10 RF: 0 Probiotic 10 billion cell Capsule 10,000 mmu cells PO DAILY RF: 0 IBgard 90 mg Capsule,Delayed,Extend.Release 90 mg PO DAILY RF: 0 tamsulosin 0.4 mg capsule 0.4 mg PO DAILY RF: 0 Discharge Orders: Discharge Order (Routine); Ordered 06/27/21 Ordered By: Radha Hollis/Other Patient Handouts: Anemia Admission Data Admit Date/Time: 06/23/21 20:16 Attending Provider: Radha Farmer I. Admit Provider: Radha Farmer I. Primary Care Provider: Nicola Prado Other Providers: Jamal Carrion ; Dwaine Rolon ; Ga Arevalo ; Nhan Gomes ; Gareth Pimentel ; Guevara Tobias ; Blair Hannah ; Karin Zhou ; Ariella Rosenberg ; Kristen Harp ; Ovidio Sagastume ; Vasquez Gray ; Linette Lombardo ; Oxana [place] ; Karen Peres ; Dillon Ashley ; Ethel Sanchez ; River Negron ; Que Montes ; Kate Espitia ; Mandi Marquez ; Marielena Hall ; Concepcion Diaz ; Annelise Diaz Other Interventions: Discharge Summary Assessment (RN) Last Done: 06/27/21 11:28
== END 2021-06-27 13:32 | disposition home or self-care (01) | DRG 812 ==
LOC: ED 15:51 → 2S 20:16

== ENCOUNTER 2021-09-08 17:06 | Inpatient (IN) ==
[2021-09-08] MEDS ORDERED: PANTOPRAZOLE BOLUS/DRIP 1 EACH IV STA (17:25)
[2021-09-08] MEDS ORDERED: PANTOprazole 80 MG in DEXTROSE 5% 100 ML IV ONE (17:25)
[2021-09-08 17:42] LABS: Basophils # (auto) 0.06 K/uL (0-0.2); Basophils % (auto) 0.5 %; Eosinophils # (auto) 0.69 K/uL (0-0.50); Eosinophils % (auto) 5.6 %; Hemoglobin 7.2 g/dl (14.0-18.0); Immature Granulocytes # (auto) 0.08 K/uL (0.00-0.02); Immature Granulocytes % (auto) 0.6 %; Lymphocytes # (auto) 1.42 K/uL (1.2-3.4); Lymphocytes % (auto) 11.5 %; Mean Corpuscular Hemoglobin 28.6 pg (25.0-34.0); Mean Corpuscular Volume 95.2 fL (80.0-100.0); Mean Platelet Volume 9.1 fL (9.4-12.4); Monocytes # (auto) 0.36 K/uL (0.24-0.82); Monocytes % (auto) 2.9 %; Neutrophils # (auto) 9.78 K/uL (1.4-6.5); Neutrophils % (auto) 78.9 %; Platelet Count 250 K/uL (130-400); RDW Coefficient of Variation 19.2 % (11.5-14.5); RDW Standard Deviation 66.4 fL (36.4-46.3); Red Blood Count 2.52 M/uL (4.63-6.08); White Blood Count 12.39 K/ul (4.8-10.8)
--- NOTE | 2021-09-08 17:44 | XRay Report ---
XR chest 1V portable CLINICAL HISTORY: Chest Pain. COMPARISON STUDY: 07/09/2021 TECHNIQUE: 1 view of the chest FINDINGS: Single frontal view of the chest demonstrates the heart size to again be mildly enlarged status post previous cardiothoracic surgery and pacer placement. The lungs are clear of alveolar opacities. There is no evidence for pleural effusion. There is no evidence for vascular congestion. There is no acute osseous pathology. IMPRESSION: 1. No acute cardiopulmonary disease. ACT 112: Negative or not required by law. Electronically signed by: Henry Reyna M.D. 09/08/2021 5:42 PM
[2021-09-08] MEDS ORDERED: SODIUM CHLORIDE 0.9% 250 ML IV PRN (17:50)
[2021-09-08 17:54] LABS: Partial Thromboplastin Ratio 0.8; Partial Thromboplastin Time 22.2 Seconds (21.0-31.0); Prothrombin Time 10.3 Seconds (9.0-12.0)
--- NOTE | 2021-09-08 18:06 | History & Physical Report ---
Date of Service September 08, 2021 Assessment & Plan (1) Anemia of chronic disease: (2) GI bleed: (3) CHF (congestive heart failure): (4) IDDM (insulin dependent diabetes mellitus): (5) CKD (chronic kidney disease), stage IV: (6) Psoriatic arthritis: Plan Mr. Maurisio Beltran is a 81 year old male who presented to the [facility] by the recommendations of his PCP Dr. Prado for abnormal labs with a hgb of 7.6, now 7.2 and worsening SOB. Significant cardiac history with CABG x3 in 2008, PCI with 6 stents to RCA in 2016, pacemaker dependent. Started on Protonix gtt and GI consult placed. Goal to return home after DC. Anemia of Chronic Disease: Fe+ Deficiency Anemia -Pt receives every other week Fe+ infusions and receives care under Dr. Christine -Hgb on arrival to ED 7.2; 2UPRBC ordered and pending -Will repeat timed H/H after both units infused -Due to CHF; Lasix 40mg IV to be administered in between units GI Bleed: -Receives care under Dr. Diaz (Was scheduled scheduled to have a balloon endoscopy procedure in [place] on September 22) -Protonix gtt started in ED; plan to continue. -Hold Home Omeprazole -NPO after MN -GI consult placed for 09/09 CHF -Recent ECHO 06/2021 EF 55-60% -Continue Losartan -Holding AM Lasix dose until volume status reevaluated after transfusion IDDM: -Home regimen includes Novolog 45 units before breakfast and supper with 25 units at bedtime. Hold AM dose for possible procedure; pt will be NPO after MN. -ac/hs checks ordered and SSI orders placed. -HA1C June 2021: 5.8 -Als takes [place] SQ Victoza SQ; will hold. -Glycemic Pharmacy consulted CKD Stage IV: -BUN 31 Creatinine 1.81; will trend daily to monitor with increased Lasix use. Psoriatic Arthritis: -Sees Dr. Carrillo opt -Takes Enbrel SQ weekly. Last dose 09/03 Disposition: -PCP: Dr. Prado -Code Status: Full Code -Goal is to return home after discharge. Pt did report that he lives in a two story home, but has access to bedroom and bathroom on first floor. his does have worsening dementia and he has found her to be increasingly dependent on him for help. They do have some in-home care, details unknown. They have two adult children that also live in [place]. -Saw patient with Dr. Ervin; see his addendum for further details. History of Present Illness Chief Complaint: lab abnormalities Primary Care Provider: Nicola Prado MD Mr. Maurisio Beltran is a 81 year old male who presented to the [facility] by the recommendations of his PCP Dr. Petersen for abnormal labs with a hgb of 7.6, now 7.2 and worsening SOB. He has a quite complex medical history that includes: CABG x3 in 2008, PCI with 6 stents to RCA in 2016, pacemaker dependent, Small bowel AVM's, Barrets esophagus, PA, Diastolic CHF with recent ECHO 07/05 with EF 55-60%, Fe+ deficiency Anemia for which he follows with Dr. Christine, CKD IV, GERD, Prostate CA s/p seed implantation treatment, sleep apnea s/p O2 supplemental O2 dependent at home with CPAP use at , IDDM2, macular degeneration and OA. The patient has had intensive work up with Dr. Diaz with GI and was scheduled to have a balloon endoscopy procedure in [place] on September 22. In route with EMS he started to have upper chest pain; an EKG was performed and unchanged with his paced rhythm. He was started on a Protonix gtt and was ordered 2UPBC as his Hgb trended down to 7.2. Pt denies OLIVER, dizziness, current chest pain, palpitations, abdominal pain, N/V/D, skin changes, rashes, ambulation dysfunction. He does take an Fe+ tablet and he is heme + with dark tarry stools without any signs of overt bleeding. Please see A/P for further details. Allergies Allergy/AdvReac Type Severity Reaction Status Date / Time methylprednisolone AdvReac Severe AMS Verified 09/08/21 18:06 hydromorphone [From Dilaudid] AdvReac Intermediate Nausea Verified 09/08/21 18:06 prednisone AdvReac Intermediate INCREASE Verified 09/08/21 18:06 BLOOD SUGAR Home Medications Medication Instructions Recorded Confirmed Type atorvastatin 80 mg tablet 80 mg PO QPM 11/13/17 09/08/21 History fluticasone propionate 50 2 spray intranasal DAILY 11/13/17 09/08/21 History mcg/actuation nasal spray,suspension (Flonase Allergy Relief) insulin degludec 200 unit/mL (3 130 unit subcut QAM 11/13/17 09/08/21 History mL) subcutaneous pen (Tresiba FlexTouch U-200 insulin) nitroglycerin 0.4 mg sublingual 0.4 mg sublingual UD PRN Chest Pain 11/13/17 09/08/21 History tablet (Nitrostat) etanercept 50 mg/mL (1 mL) 1 dose subcut WK 04/10/18 09/08/21 History subcutaneous pen injector (Enbrel SureClick) furosemide 80 mg tablet (Lasix) 80 mg PO QAM 04/20/18 09/08/21 History omeprazole 20 mg tablet,delayed 20 mg PO BID #60 tabs 10/14/19 09/08/21 Rx release allopurinol 300 mg tablet 300 mg PO DAILY 06/09/20 09/08/21 History aspirin 81 mg tablet,delayed 81 mg PO DAILY 06/09/20 09/08/21 History release (Beba Low Dose Aspirin) folic acid 1 mg tablet 1 mg PO DAILY 06/09/20 09/08/21 History insulin aspart U-100 100 unit/mL 0 unit subcut TIDM 10/29/20 09/08/21 History (3 mL) subcutaneous pen (Novolog Flexpen U-100 Insulin aspart) liraglutide 0.6 mg/0.1 mL (18 mg/3 1.8 mg subcut QAM 10/29/20 09/08/21 History mL) subcutaneous pen injector (Victoza 3-Kei) hydrocodone 5 mg-acetaminophen 325 1 tab PO Q4H PRN severe pain #10 12/16/20 09/08/21 Rx mg tablet tabs isosorbide mononitrate 30 mg 30 mg PO QAM 30 days #30 tabs 12/16/20 09/08/21 Rx tablet,extended release 24 hr Lactobacillus acidophilus 10 10,000 mmu cells PO DAILY 05/19/21 09/08/21 History billion cell capsule (Probiotic) peppermint oil 90 mg 90 mg PO DAILY 05/19/21 09/08/21 History capsule,delayed,extended release (IBgard) tamsulosin 0.4 mg capsule 0.4 mg PO DAILY 06/27/21 09/08/21 History Past Med/Surg History Medical History (Updated 09/08/21 @ 19:47 by FRANCHESKA Rubio) Anemia IRON INFUSIONS EVERY OTHER WEEK Anemia of chronic disease Chronic diastolic CHF (congestive heart failure) Chronic GI bleeding Chronic obstructive pulmonary disease CKD (chronic kidney disease), stage IV Diabetes mellitus, type 2 Diverticular disease GERD (gastroesophageal reflux disease) GI bleed History of colon polyps History of COVID-19 02/2021>NO SYMPTOMS *TESTED AT [facility] History of prostate cancer radiation seeds Hx of gout Hyperlipidemia Hypertension IDDM (insulin dependent diabetes mellitus) Obesity On home oxygen therapy 2L N/C AT HS WITH CPAP Osteoarthritis Pacemaker Psoriasis Sleep apnea CPAP WITH O2 AT 2L Surgical History History of cardiac cath had 4 total--last 2015 @ [facility] History of colonoscopy History of esophagogastroduodenoscopy (EGD) History of heart artery stent x6 stents total History of prostate biopsy malignant History of tooth extraction S/P CABG x 3 2008 @ [place]---follows with Dr. Rolon Status post LASIK surgery of both eyes Family History Son Family history of diabetes mellitus Other No family history of adverse response to anesthesia Social History Smoking Status: Never smoker Tobacco Type: Cigarettes Second Hand Exposure: No; Hx Alcohol Use: No Hx Substance Use: No Preferred Language: Portuguese Communication Ability: Effective Aircraft Metalsmith Required: No Beliefs That Will Affect Care: None marital status: Current Living Situation: Family Current Living Situation Comment: /SON AND GRANDSON How many Children do You have: 2 Feels Safe at Home: Yes Assistive Devices: Glasses and Oxygen - at Night Review of Systems Review of Systems: Neuro: (-) Falls, trauma, slurred speech HEENT: (-) OLIVER, dizziness, dysphagia, visual or auditory changes CV: (-) CP, palpitations, swelling Resp: (-) SOB GI: (-) appetite changes, N/V/D, bowel changes : (-) urinary changes Skin: (-) rashes Psych: (-) anxiety, depression Physical Exam Physical Exam: Neuro: AAOx4, PERRLA, no aphagia, memory changes, CNII-XII grossly intact HEENT: head normocephalic, moist mucus membranes CV: S1/S2, (-) M/G/R, (-) edema, cap refill < 3 seconds Resp: Lungs CTA in all lara. On RA GI: Abdomen S/NT/ND, Ax4 bowel sounds, (-) CVA tenderness Musculoskeletal: 5/5 B/L UE strength, 5/5 B/L LE strength. No gait disturbance Skin: (-) rashes , (-) erythema. (+) left upper chest access port Psych: euthymic mood Results & Data Results & Data ([facility]) Vital Signs (Past 12 Hours) Vital Signs Temp Pulse Resp BP Pulse Ox O2 Del Method 09/08/21 17:26 98 Room Air 09/08/21 17:08 36.6 C 85 19 121/60 98 Room Air Laboratory Results Short CBC 09/08/21 Range/Units 17:30 WBC 12.39 H (4.8-10.8) K/ul Hgb 7.2 L (14.0-18.0) g/dl Hct 24.0 L (40.1-51.0) % Plt Count 250 (130-400) K/uL BMP 09/08/21 17:30 Sodium 138 Potassium 4.1 Chloride 102 Carbon Dioxide 28 BUN 31 H Creatinine 1.81 H Glucose 183 H Calcium 8.1 L Liver Function 09/08/21 Range/Units 17:30 Total Bilirubin 0.5 (0.2-1.0) mg/dl AST 13 (13-39) U/L ALT 15 (7-52) U/L Alkaline Phosphatase 111 H (34-104) U/L Albumin 3.4 (3.4-5.0) gm/dl Diagnostic Findings Chest X-Ray 09/08/21 17:26 XR chest 1V portable CLINICAL HISTORY: Chest Pain. COMPARISON STUDY: 07/09/2021 TECHNIQUE: 1 view of the chest FINDINGS: Single frontal view of the chest demonstrates the heart size to again be mildly enlarged status post previous cardiothoracic surgery and pacer placement. The lungs are clear of alveolar opacities. There is no evidence for pleural effusion. There is no evidence for vascular congestion. There is no acute osseous pathology. IMPRESSION: 1. No acute cardiopulmonary disease. ACT 112: Negative or not required by law. Electronically signed by: Henry Reyna M.D. 09/08/2021 5:42 PM ECG Additional Comments: Paced rhythm on EKG. Not uploaded on [employer] yet. Code Status & VTE Plan Code Status Full code as discussed with patient. VTE Prophylaxis Plan VTE Prophylaxis will be ordered: Yes Supervising Physician Co-Signing Physician Notes Attending addendum: The patient was seen and examined in emergency room He has significant past medical history of CAD status post stent and CABG and also sleep apnea with history of ongoing occult GI bleed requiring transfusion He was sent in from PCPs office with low hemoglobin of 7.4 associated with shortness of breath He denies any chest pain and/or palpitation Denies any micheal blood in the stool and or any nausea or vomiting. 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
[2021-09-08 18:07] LABS: Albumin Globulin Ratio 1.2 (0.9-2); Albumin Level 3.4 gm/dl (3.4-5.0); BUN Creatinine Ratio 17.1 (10-20); Bilirubin,Total 0.5 mg/dl (0.2-1.0); Calcium 8.1 mg/dl (8.5-10.1); Creatinine Clr Calc Pharmacy 39.7 ml/min; Est GFR (African American) 40.3 ml/min; Est GFR (Non-African American) 34.8 ml/min; Globulin 2.9 gm/dl (2.5-4.0); Potassium 4.1 mmol/L (3.5-5.1); Total Protein 6.3 gm/dl (6.0-8.3)
[2021-09-08 18:08] LABS: Troponin I High Sensitivity 9.6 pg/ml (0-20)
[2021-09-08] MEDS: PANTOprazole 40 MG in DEXTROSE 5% 100 ML IV SCH ×2 (18:16→23:21)
[2021-09-08] MEDS ORDERED: FUROSEMIDE 40 MG/4 ML VIAL IV ONE ×2 (18:56→22:22)
[2021-09-08] MEDS ORDERED: DEXTROSE 50% 50 ML SYRINGE IV PRN (21:58)
[2021-09-08] MEDS ORDERED: NITROGLYCERIN SL 0.4 MG/TAB TAB SL PRN (21:58)
[2021-09-08] MEDS ORDERED: GLUCOSE 40% GEL 15 GM TUBE PO PRN (21:58)
[2021-09-08] MEDS ORDERED: HYDROCODONE/ACETAMOPHEN 5/325MG TAB PO PRN (21:58)
[2021-09-08] MEDS ORDERED: GLUCAGON FOR INJ 1 MG VIAL SQ PRN ×2 (21:58)
[2021-09-08] MEDS ORDERED: PHARMACY GLYCEMIC MGMT CONSULT PRN (21:58)
[2021-09-08] MEDS ORDERED: CARBOHYDRATES FOR HYPOGLYCEMIA PO PRN ×2 (21:58)
[2021-09-08] MEDS ORDERED: GLUCOSE 10 TAB/TUBE PO PRN (21:58)
--- NOTE | 2021-09-08 22:40 | Emergency Department Note ---
History of Present Illness General Chief Complaint: Abnormal Labs/Diagnostic Testing Time Seen by Provider: 09/08/21 17:08 History of Present Illness Provider Complaint: + abnormal lab Description of abnormal result: hgb 7.6 Associated symptoms: + chest pain (started en route while with BLS unit) and + other (black stools) HPI narrative: 81-year-old male with history of CKD and GI bleeds presents emergency department for low hemoglobin. Patient reports his PCP called him and told him his hemoglobin was 7.6. Patient denies any weakness or shortness of breath. Patient did call EMS to bring him over here and in route the patient start developing chest pain. Patient was chest pain was located over the left chest. Patient does report dark stools. He states he is on iron. Patient states he follows GI Dr. Rebecca Dawn who is planning on doing a procedure on him in [place] to determine cause of his frequent GI bleeds. Home Medications Medication Instructions Recorded Confirmed Type atorvastatin 80 mg tablet 80 mg PO QPM 11/13/17 09/08/21 History fluticasone propionate 50 2 spray intranasal DAILY 11/13/17 09/08/21 History mcg/actuation nasal spray,suspension (Flonase Allergy Relief) insulin degludec 200 unit/mL (3 130 unit subcut QAM 11/13/17 09/08/21 History mL) subcutaneous pen (Tresiba FlexTouch U-200 insulin) nitroglycerin 0.4 mg sublingual 0.4 mg sublingual UD PRN Chest Pain 11/13/17 09/08/21 History tablet (Nitrostat) etanercept 50 mg/mL (1 mL) 1 dose subcut WK 04/10/18 09/08/21 History subcutaneous pen injector (Enbrel SureClick) furosemide 80 mg tablet (Lasix) 80 mg PO QAM 04/20/18 09/08/21 History omeprazole 20 mg tablet,delayed 20 mg PO BID #60 tabs 10/14/19 09/08/21 Rx release allopurinol 300 mg tablet 300 mg PO DAILY 06/09/20 09/08/21 History aspirin 81 mg tablet,delayed 81 mg PO DAILY 06/09/20 09/08/21 History release (Beba Low Dose Aspirin) folic acid 1 mg tablet 1 mg PO DAILY 06/09/20 09/08/21 History insulin aspart U-100 100 unit/mL 0 unit subcut TIDM 10/29/20 09/08/21 History (3 mL) subcutaneous pen (Novolog Flexpen U-100 Insulin aspart) liraglutide 0.6 mg/0.1 mL (18 mg/3 1.8 mg subcut QAM 10/29/20 09/08/21 History mL) subcutaneous pen injector (Victoza 3-Kei) hydrocodone 5 mg-acetaminophen 325 1 tab PO Q4H PRN severe pain #10 12/16/20 09/08/21 Rx mg tablet tabs isosorbide mononitrate 30 mg 30 mg PO QAM 30 days #30 tabs 12/16/20 09/08/21 Rx tablet,extended release 24 hr Lactobacillus acidophilus 10 10,000 mmu cells PO DAILY 05/19/21 09/08/21 History billion cell capsule (Probiotic) peppermint oil 90 mg 90 mg PO DAILY 05/19/21 09/08/21 History capsule,delayed,extended release (IBgard) tamsulosin 0.4 mg capsule 0.4 mg PO DAILY 06/27/21 09/08/21 History Allergies Allergy/AdvReac Type Severity Reaction Status Date / Time methylprednisolone AdvReac Severe AMS Verified 09/08/21 18:06 hydromorphone [From Dilaudid] AdvReac Intermediate Nausea Verified 09/08/21 18:06 prednisone AdvReac Intermediate INCREASE Verified 09/08/21 18:06 BLOOD SUGAR Past Med/Surg History Medical History Anemia IRON INFUSIONS EVERY OTHER WEEK Anemia of chronic disease Chronic diastolic CHF (congestive heart failure) Chronic GI bleeding Chronic obstructive pulmonary disease CKD (chronic kidney disease), stage IV Diabetes mellitus, type 2 Diverticular disease GERD (gastroesophageal reflux disease) GI bleed History of colon polyps History of COVID-19 02/2021>NO SYMPTOMS *TESTED AT [facility] History of prostate cancer radiation seeds Hx of gout Hyperlipidemia Hypertension IDDM (insulin dependent diabetes mellitus) Obesity On home oxygen therapy 2L N/C AT HS WITH CPAP Osteoarthritis Pacemaker Psoriasis Sleep apnea CPAP WITH O2 AT 2L Surgical History History of cardiac cath had 4 total--last 2015 @ [facility] History of colonoscopy History of esophagogastroduodenoscopy (EGD) History of heart artery stent x6 stents total History of prostate biopsy malignant History of tooth [place]P CABG [place] 3 [place] [facility] [place]follows with Dr. Rolon Status post LASIK surgery of both eyes Family History Son Family history of diabetes mellitus Other No family history of adverse response to anesthesia Social History Smoking Status: Never smoker Tobacco Type: Cigarettes Second Hand Exposure: No; Hx Alcohol Use: No Hx Substance Use: No Preferred Language: Mongolian Communication Ability: Effective Hand Spray Operator Required: No Beliefs That Will Affect Care: None marital status: Current Living Situation: Family Current Living Situation Comment: /SON AND GRANDSON How many Children do You have: 2 Feels Safe at Home: Yes Assistive Devices: Glasses and Oxygen - at Night Review of Systems A total of 10 systems reviewed and were otherwise negative Physical Exam Vital Signs: Vital Signs - 24 hr 09/08/21 17:08 09/08/21 17:26 Temperature 36.6 C Temperature Source Oral Pulse Rate 85 Respiratory Rate 19 Respiratory Effort / Characteristics Non-Labored Sponta neous Respiratory Depth Normal Blood Pressure 121/60 Blood Pressure Mayra n 80 Pulse Oximetry 98 98 Oxygen Delivery Me thod Room Air Room Air Sepsis Recent Feve r Within 48 Hours No Sepsis New/Unexpla ined Change in Men peter Status No Sepsis Action Take n by Nursing No Action Required Physical Exam: Physical Exam GENERAL: He is oriented to person, place, and time. He appears well-developed and well-nourished. He does not appear distressed. HENT: Exam performed. - Head: Normocephalic and atraumatic. - Right Ear: External ear normal. No mastoid tenderness. - Left Ear: External ear normal. No mastoid tenderness. - Mouth/Throat: The oropharynx is clear and moist. No trismus in the jaw. No dental abscesses or uvula swelling. No oropharyngeal exudate or tonsillar abscesses. EYES: Conjunctivae and EOM are normal. Pupils are equal, round, and reactive to light. Right eye exhibits no discharge. Left eye exhibits no discharge. No scleral icterus. NECK: Normal range of motion. Neck supple. No JVD present. No spinous process tenderness present. No carotid bruit present. No rigidity. No tracheal deviation and normal range of motion present. No Brudzinski's sign and no Kernig's sign noted. CV: Normal rate, regular rhythm, normal heart sounds and intact distal pulses. There is no peripheral edema. Palpable radial pulses bue. PULM/CHEST: Effort normal and breath sounds normal. No respiratory distress. No stridor. He has no wheezes. He has no rales. - Chest Wall: He exhibits no tenderness. ABD: The abdomen is soft. Bowel sounds are normal. He has no distension. No mass is present. There is no tenderness. There is no rebound, no guarding, no Gutierrez's sign and no tenderness at McBurney's point. Rovsig negative. Rectal: Melanotic Hemoccult positive. MUSC/SKEL: Normal range of motion. There is no peripheral edema, tenderness or deformity. LYMPH: No cervical adenopathy. NEURO: He is alert and oriented to person, place, and time. He has normal strength. No cranial nerve deficit or sensory deficit. Coordination and gait normal. GCS eye subscore is 4. GCS verbal subscore is 5. GCS motor subscore is 6. Cerebellar tests wnl. SKIN: Skin is warm and dry. He is not diaphoretic. PSYCH: He has a normal mood and affect. Behavior is normal. Judgment and thought content normal. Course Course 1707: The patient was evaluated in room C8. A complete history and physical exam was performed Cardiac monitoring: An order was placed for continuous cardiac monitoring. The monitor shows a rate of 80 with paced rhythm 1750: Vital signs stable. Patient's repeat hemoglobin 7.2. Patient started on Protonix drip. [facility]. 2 units packed red blood cells ordered for the patient as he states 1 unit packed red blood cells do not usually help him much. Patient will be admitted to Dr. Ervin's team Administered Medications Pantoprazole Sodium 40 mg/ (Dextrose) 100 mls @ 20 mls/hr IV Q5H [facility] Stop: 10/08/21 17:44 Last Admin: 09/08/21 18:16 Dose: 8 mg/hr, 20 mls/hr Documented By: Discontinued Medications Furosemide (Furosemide 40 Mg/4 Ml Vial) 40 mg IV ONE ONE Stop: 09/08/21 18:57 Last Admin: 09/08/21 22:25 Dose: 40 mg Documented By: VALENTIN Furosemide (Furosemide 40 Mg/4 Ml Vial) Confirm Administered Dose 40 mg IV .STK- MED ONE Stop: 09/08/21 22:23 Last Admin: 09/08/21 22:26 Dose: Not Given Documented By: VALENTIN Pantoprazole Sodium 80 mg/ (Dextrose) 120 mls @ 400 mls/hr IV NOW ONE Stop: 09/08/21 17:42 Last Infusion: 09/08/21 18:12 Dose: 0 mls/hr Documented By: Admin: 09/08/21 17:53 Dose: 400 mls/hr Documented By: MONALISA Medical Decision Making Laboratory Data Result diagrams: 09/08/21 17:30 09/08/21 17:30 Lab Results 09/08/21 09/08/21 09/08/21 Range/Units 17:30 17:30 17:30 WBC 12.39 H (4.8-10.8) K/ul RBC 2.52 L (4.63-6.08) M/uL Hgb 7.2 L (14.0-18.0) g/dl Hct 24.0 L (40.1-51.0) % MCV 95.2 (80.0-100.0) fL MCH 28.6 (25.0-34.0) pg MCHC 30.0 L (32.0-36.0) g/dL RDW Std Deviation 66.4 H (36.4-46.3) fL RDW Coeff of Joey 19.2 H (11.5-14.5) % Plt Count 250 (130-400) K/uL MPV 9.1 L (9.4-12.4) fL Immature Gran % (Auto) 0.6 % Neut % (Auto) 78.9 % Lymph % (Auto) 11.5 % Pend[place] % (Auto) 2.9 % Eos % (Auto) 5.6 % Baso % (Auto) 0.5 % Neut # (Auto) 9.78 H (1.4-6.5) K/uL Lymph # (Auto) 1.42 (1.2-3.4) K/uL [place]end[place] # (Auto) 0.36 (0.24-0.82) K/uL Eos # (Auto) 0.69 H (0-0.50) K/uL Baso # (Auto) 0.06 (0-0.2) K/uL Immature Gran # (Auto) 0.08 H (0.00-0.02) K/uL PT 10.3 (9.0-12.0) Seconds INR 1.0 (0.9-1.1) APTT 22.2 (21.0-31.0) Seconds PTT Ratio 0.8 Sodium 138 (136-145) mmol/L Potassium 4.1 (3.5-5.1) mmol/L Chloride 102 (98-107) mmol/L Carbon Dioxide 28 (21-32) mmol/L Anion Gap 8 (3-11) BUN 31 H (6-23) mg/dl Creatinine 1.81 H (0.6-1.4) mg/dl Est Cr Clr Drug Dosing 39.7 ml/min Est GFR ( Amer) 40.3 ml/min Est GFR (Non-Af Amer) 34.8 ml/min BUN/Creatinine Ratio 17.1 (10-20) Glucose 183 H (70-99(Fasting)) mg/dl Calcium 8.1 L (8.5-10.1) mg/dl Total Bilirubin 0.5 (0.2-1.0) mg/dl AST 13 (13-39) U/L ALT 15 (7-52) U/L Alkaline Phosphatase 111 H (34-104) U/L Troponin I High Sens 9.6 (0-20) pg/ml Total Protein 6.3 (6.0-8.3) gm/dl Albumin 3.4 (3.4-5.0) gm/dl Globulin 2.9 (2.5-4.0) gm/dl Albumin/Globulin Ratio 1.2 (0.9-2) Lipase 60 (11-82) U/L SARS-CoV-2, RNA, NAAT (NEGATIVE) Blood Type Antibody Screen Crossmatch 09/08/21 09/08/21 Range/Units 17:33 17:34 WBC (4.8-10.8) K/ul RBC (4.63-6.08) M/uL Hgb (14.0-18.0) g/dl Hct (40.1-51.0) % MCV (80.0-100.0) fL MCH (25.0-34.0) pg MCHC (32.0-36.0) g/dL RDW Std Deviation (36.4-46.3) fL RDW Coeff of Joey (11.5-14.5) % Plt Count (130-400) K/uL MPV (9.4-12.4) fL Immature Gran % (Auto) % Neut % (Auto) % Lymph % (Auto) % Pend[place] % (Auto) % Eos % (Auto) % Baso % (Auto) % Neut # (Auto) (1.4-6.5) K/uL Lymph # (Auto) (1.2-3.4) K/uL [place] # (Auto) (0.24-0.82) K/uL Eos # (Auto) (0-0.50) K/uL Baso # (Auto) (0-0.2) K/uL Immature Gran # (Auto) (0.00-0.02) K/uL PT (9.0-12.0) Seconds INR (0.9-1.1) APTT (21.0-31.0) Seconds PTT Ratio Sodium (136-145) mmol/L Potassium (3.5-5.1) mmol/L Chloride (98-107) mmol/L Carbon Dioxide (21-32) mmol/L Anion Gap (3-11) BUN (6-23) mg/dl Creatinine (0.6-1.4) mg/dl Est Cr Clr Drug Dosing ml/min Est GFR ( Amer) ml/min Est GFR (Non-Af Amer) ml/min BUN/Creatinine Ratio (10-20) Glucose (70-99(Fasting)) mg/dl Calcium (8.5-10.1) mg/dl Total Bilirubin (0.2-1.0) mg/dl AST (13-39) U/L ALT (7-52) U/L Alkaline Phosphatase (34-104) U/L Troponin I High Sens (0-20) pg/ml Total Protein (6.0-8.3) gm/dl Albumin (3.4-5.0) gm/dl Globulin (2.5-4.0) gm/dl Albumin/Globulin Ratio (0.9-2) Lipase (11-82) U/L SARS-CoV-2, RNA, NAAT NEGATIVE (NEGATIVE) Blood Type A Positive Antibody Screen NEGATIVE Crossmatch See Detail ECG Data Additional Comments: Paced rhythm with rate of 90 LA 224 QRS 158 QTC 524 no ectopy. MDM Narrative Vital signs stable. Patient's repeat hemoglobin 7.2. Patient started on Protonix drip. Patient will be admitted to the [facility] team for GI bleed. 2 units packed red blood cells ordered for the patient as he states 1 unit packed red blood cells do not usually help him much. Patient will be admitted to Dr. Ervin's team Impression & Plan GI bleed Critical Care Time Critical Care Time: Yes Total Critical Care Time: 42 I have personally spent greater than 42 minutes of critical care time in the direct management of this patient. This includes bedside care, interpretation of diagnostic studies, and testing, discussion with consultants, patient, and family members, and other required patient management activities. This 42 mi nutes is in excess of all separately billable procedures. Discharge Plan Visit Data Chief Complaint: Abnormal Labs/Diagnostic Testing ED Provider: Alcon Ascencio Discharge Problem: GI bleed Patient Disposition: Admitted As Inpatient Discharge Instructions Interventions: ED Discharge Assessment Last Done: 09/08/21 22:01
[2021-09-08] MEDS: ATORVASTATIN 40 MG TAB PO SCH (23:21)
[2021-09-08] MEDS: INSULIN ASPART PER UNIT SC SCH (23:31)
[2021-09-09 00:29] LABS: Hematocrit (blood only) 26.5 % (40.1-51.0)
[2021-09-09] MEDS: PANTOprazole 40 MG in DEXTROSE 5% 100 ML IV SCH ×2 (04:53→10:58)
[2021-09-09 05:51] LABS: Hematocrit (blood only) 30.1 % (40.1-51.0); Hemoglobin 9.5 g/dl (14.0-18.0); Mean Corpuscular Hemoglobin 29.1 pg (25.0-34.0); Mean Corpuscular Hgb Conc 31.6 g/dL (32.0-36.0); Mean Corpuscular Volume 92.3 fL (80.0-100.0); Mean Platelet Volume 9.2 fL (9.4-12.4); Platelet Count 231 K/uL (130-400); RDW Coefficient of Variation 18.1 % (11.5-14.5); RDW Standard Deviation 59.1 fL (36.4-46.3); Red Blood Count 3.26 M/uL (4.63-6.08); White Blood Count 9.54 K/ul (4.8-10.8)
[2021-09-09 06:28] LABS: BUN Creatinine Ratio 16.9 (10-20); Creatinine Clr Calc Pharmacy 40.6 ml/min; Est GFR (African American) 41.4 ml/min; Est GFR (Non-African American) 35.7 ml/min; Potassium 3.8 mmol/L (3.5-5.1)
[2021-09-09] MEDS ORDERED: NON-FORMULARY MEDICATION (Insulin Aspart U-100 [Novolog Flexpen U-100 Insulin] 100 unit/mL SQ SCH (08:00)
[2021-09-09] MEDS: TAMSULOSIN HCL 0.4 MG CAP PO SCH (09:03)
[2021-09-09] MEDS: FOLIC ACID 1 MG TAB PO SCH (09:04)
[2021-09-09] MEDS: ADVANCED PROBIOTIC 1250 MG CAPSULE PO SCH (09:04)
[2021-09-09] MEDS: ASPIRIN 81 MG ECTAB PO SCH (09:04)
[2021-09-09] MEDS: allopurinoL 300 MG TAB PO SCH (09:04)
[2021-09-09] MEDS: FUROSEMIDE 80 MG TAB PO SCH (09:04)
[2021-09-09] MEDS: ISOSORBIDE MONO EXTENDED REL 30 MG TABCR PO SCH (09:04)
[2021-09-09] MEDS: FLUTICASONE PROPIONATE NA SPR 16 GM BTL SCH (09:05)
[2021-09-09] MEDS: INSULIN ASPART PER UNIT SC SCH ×5 (09:20→20:34)
[2021-09-09 09:51] LABS: Appearance Urine Clear (Clear); Bacteria Urine Automated Negative (Negative); Bilirubin Urine Negative (Negative); Blood Urine Negative (Negative); Color Urine Yellow; Glucose Urine UA Negative (Negative); Ketones Urine Negative (Negative); Leukocyte Esterase Urine Trace (Negative); Nitrite Urine Negative (Negative); Protein Urine 2+ (Negative); RBC Urine Automated 0-4 /hpf (0-4); Specific Gravity Urine 1.014 (1.000-1.030); Urobilinogen Urine Negative (Negative); pH Urine 5.5 (4.5-7.5)
--- NOTE | 2021-09-09 10:51 | Gastrointestinal Consultation ---
Date of Consultation September 09, 2021 Assessment & Plan (1) SOB (shortness of breath): (2) SNOW (iron deficiency anemia): Patient is a 81 years old male currently admitted for symptomatic anemia, treated with 2 units PRBC transfusion with good response in his blood count. History of iron deficiency anemia, dependent on Procrit injections and Venofer IV infusion. History of small bowel AVMs, was scheduled for small bowel balloon enteroscopy in October. He is having black stools, which is his norm although no longer taking his iron tablets anymore. - NPO - PPI gtt - Small bowel enteroscopy today by Dr. Loera - Monitor blood count and transfuse prn - Will consider adding Octreotide monthly injections for AVM bleed management Supervising Physician Co-Signing Physician Notes Attg add: Pt with recurrent GIB, likely SB AVMs. Plan enteroscopy today. History of Present Illness Reason for Consultation: GIB/AVM Requesting Physician: Dr. Hua Jean Attending Physician: Dr. Maurisio Beltran History of Present Illness Pt is a 81 yo male who was referred to ED yesterday by his PCP for anemia (outpt Hgb 7.2) and symptoms of SOB. He has PMHx of CABG x3 in 2008, PCI with 6 stents to RCA in 2017, pacemaker dependent, Small bowel AVM's, Barrets esophagus, PA, Diastolic CHF with recent ECHO 07/05 with EF 55-60%, Fe+ deficiency Anemia, CKD IV, GERD, Prostate CA s/p seed implantation treatment, sleep apnea s/p O2 supplemental O2 dependent at home with CPAP use at HS, IDDM2, macular degeneration and OA. CXR unremarkable. EKG wo acute changes. He had been receiving Procrit injection once every 2 weeks alternating with Venofer IV once every 2 weeks under direction of [facility]. He has history of small bowel AVMs. Stools are always black in color per his report. Previously he was taking oral iron supplements but he reports today that he is no longer on them. Recently his blood count is downtrending and we will plan to repeat his small bowel balloon enteroscopy on October 23. Overnight he was given 2 units PRBC transfusion. Blood count improved now to H&H of 9.5 and 30. INR 1.0. 231. He denies any symptoms of abdominal pain, nausea or vomiting. At rest he is not short of breath nor having chest pain. However he states that when he walks around he may be short of breath Allergies Allergy/AdvReac Type Severity Reaction Status Date / Time methylprednisolone AdvReac Severe AMS Verified 09/08/21 18:06 hydromorphone [From Dilaudid] AdvReac Intermediate Nausea Verified 09/08/21 18:06 prednisone AdvReac Intermediate INCREASE Verified 09/08/21 18:06 BLOOD SUGAR Home Medications Medication Instructions Recorded Confirmed Type atorvastatin 80 mg tablet 80 mg PO QPM 11/13/17 09/08/21 History fluticasone propionate 50 2 spray intranasal DAILY 11/13/17 09/08/21 History mcg/actuation nasal spray,suspension (Flonase Allergy Relief) insulin degludec 200 unit/mL (3 130 unit subcut QAM 11/13/17 09/08/21 History mL) subcutaneous pen (Tresiba FlexTouch U-200 insulin) nitroglycerin 0.4 mg sublingual 0.4 mg sublingual UD PRN Chest Pain 11/13/17 09/08/21 History tablet (Nitrostat) etanercept 50 mg/mL (1 mL) 1 dose subcut WK 04/10/18 09/08/21 History subcutaneous pen injector (Enbrel SureClick) furosemide 80 mg tablet (Lasix) 80 mg PO QAM 04/20/18 09/08/21 History omeprazole 20 mg tablet,delayed 20 mg PO BID #60 tabs 10/14/19 09/08/21 Rx release allopurinol 300 mg tablet 300 mg PO DAILY 06/09/20 09/08/21 History aspirin 81 mg tablet,delayed 81 mg PO DAILY 06/09/20 09/08/21 History release (Beba Low Dose Aspirin) folic acid 1 mg tablet 1 mg PO DAILY 06/09/20 09/08/21 History insulin aspart U-100 100 unit/mL 0 unit subcut TIDM 10/29/20 09/08/21 History (3 mL) subcutaneous pen (Novolog Flexpen U-100 Insulin aspart) liraglutide 0.6 mg/0.1 mL (18 mg/3 1.8 mg subcut QAM 10/29/20 09/08/21 History mL) subcutaneous pen injector (Victoza 3-Kei) hydrocodone 5 mg-acetaminophen 325 1 tab PO Q4H PRN severe pain #10 12/16/20 09/08/21 Rx mg tablet tabs isosorbide mononitrate 30 mg 30 mg PO QAM 30 days #30 tabs 12/16/20 09/08/21 Rx tablet,extended release 24 hr Lactobacillus acidophilus 10 10,000 mmu cells PO DAILY 05/19/21 09/08/21 History billion cell capsule (Probiotic) peppermint oil 90 mg 90 mg PO DAILY 05/19/21 09/08/21 History capsule,delayed,extended release (IBgard) tamsulosin 0.4 mg capsule 0.4 mg PO DAILY 06/27/21 09/08/21 History Patient History Medical History Anemia IRON INFUSIONS EVERY OTHER WEEK Anemia of chronic disease Chronic diastolic CHF (congestive heart failure) Chronic GI bleeding Chronic obstructive pulmonary disease CKD (chronic kidney disease), stage IV Diabetes mellitus, type 2 Diverticular disease GERD (gastroesophageal reflux disease) GI bleed History of colon polyps History of COVID-19 02/2021>NO SYMPTOMS *TESTED AT [facility] History of prostate cancer radiation seeds Hx of gout Hyperlipidemia Hypertension IDDM (insulin dependent diabetes mellitus) Obesity On home oxygen therapy 2L N/C AT HS WITH CPAP Osteoarthritis Pacemaker Psoriasis Sleep apnea CPAP WITH O2 AT 2L Surgical History History of cardiac cath had 4 total--last 2015 @ [facility] History of colonoscopy History of esophagogastroduodenoscopy (EGD) History of heart artery stent x6 stents total History of prostate biopsy malignant History of tooth extraction S/P CABG x 3 2008 @ [facility]---follows with Dr. Rolon Status post LASIK surgery of both eyes Family History Son Family history of diabetes mellitus Other No family history of adverse response to anesthesia Social History Smoking Status: Former smoker Tobacco Type: Cigarettes Second Hand Exposure: No; Hx Alcohol Use: No Hx Substance Use: No Preferred Language: Kiswahili Communication Ability: Effective Rn Rehabilitation Required: No Beliefs That Will Affect Care: None marital status: Current Living Situation: Spouse Current Living Situation Comment: /SON AND GRANDSON How many Children do You have: 2 Feels Safe at Home: Yes Safety Concerns: Feels Safe At This Time Assistive Devices: Glasses and Oxygen - at Night Review of Systems Review of Systems: All systems reviewed & are unremarkable except as noted in HPI & below Physical Exam Constitutional: WD/WN, vitals as above well groomed, cooperative and comfortable Eyes: PERRL, conjunctivae normal, anicteric sclerae ENMT: external ear and nose normal, oropharynx normal Respiratory: normal respiratory effort, lungs clear to auscultation Cardiovascular: RRR, no murmur, no edema Gastrointestinal (Abdomen): normal bowel sounds, soft, nontender, no hepatosplenomegaly Skin: no rashes, warm and dry no jaundice Psychiatric: A+Ox3, euthymic affect Lymphatic: no lymphedema Results & Data ([facility]) Vital Signs (Past 12 Hours) Vital Signs Temp Pulse Pulse Resp BP BP Pulse Ox 09/09/21 08:00 70 15 129/86 99 09/09/21 03:45 65 24 96 09/08/21 23:45 70 17 99 09/08/21 23:38 71 21 128/64 99 09/08/21 23:08 37.1 C 76 20 126/50 L 98 09/08/21 23:22 76 20 126/50 L 98 09/08/21 22:53 36.7 C 82 16 132/56 L 99 O2 Del Method O2 Flow Rate 09/09/21 08:00 Room Air 09/09/21 03:45 2 09/08/21 23:45 2 09/08/21 23:38 09/08/21 23:08 09/08/21 23:22 Room Air 09/08/21 22:53
--- NOTE | 2021-09-09 11:26 | Anesthesiology Consultation ---
Date of Service September 09, 2021 Assessment & Plan (1) Encounter for pre-operative examination: History Surgery Operation Date: 09/09/21 17:30 Proposed Procedures p Small Bowel Enteroscopy Dr Michel - River Negron MD Height/Weight Height: 5 ft 4 in Weight: 123.3 kg Allergies Allergy/AdvReac Type Severity Reaction Status Date / Time methylprednisolone AdvReac Severe AMS Verified 09/08/21 18:06 hydromorphone [From Dilaudid] AdvReac Intermediate Nausea Verified 09/08/21 18:06 prednisone AdvReac Intermediate INCREASE Verified 09/08/21 18:06 BLOOD SUGAR Medications Home Medications Medication Instructions Recorded Confirmed Last Taken atorvastatin 80 mg tablet 80 mg PO QPM 11/13/17 09/08/21 09/07/21 fluticasone propionate 50 2 spray intranasal DAILY 11/13/17 09/08/21 09/08/21 mcg/actuation nasal spray,suspension (Flonase Allergy Relief) insulin degludec 200 unit/mL (3 130 unit subcut QAM 11/13/17 09/08/21 09/08/21 mL) subcutaneous pen (Tresiba FlexTouch U-200 insulin) nitroglycerin 0.4 mg sublingual 0.4 mg sublingual UD PRN Chest Pain 11/13/17 09/08/21 Unknown tablet (Nitrostat) etanercept 50 mg/mL (1 mL) 1 dose subcut WK 04/10/18 09/08/21 09/08/21 subcutaneous pen injector (Enbrel SureClick) furosemide 80 mg tablet (Lasix) 80 mg PO QAM 04/20/18 09/08/21 09/08/21 omeprazole 20 mg tablet,delayed 20 mg PO BID #60 tabs 10/14/19 09/08/21 09/08/21 08:00 release allopurinol 300 mg tablet 300 mg PO DAILY 06/09/20 09/08/21 09/08/21 aspirin 81 mg tablet,delayed 81 mg PO DAILY 06/09/20 09/08/21 09/08/21 release (Beba Low Dose Aspirin) folic acid 1 mg tablet 1 mg PO DAILY 06/09/20 09/08/21 09/08/21 insulin aspart U-100 100 unit/mL 0 unit subcut TIDM 09/09/08/21 09/08/21 16:00 (3 mL) subcutaneous pen (Novolog Flexpen U-100 Insulin aspart) liraglutide 0.6 mg/0.1 mL (18 mg/3 1.8 mg subcut QAM 10/29/20 09/08/21 09/08/21 mL) subcutaneous pen injector (Victoza 3-Kei) hydrocodone 5 mg-acetaminophen 325 1 tab PO Q4H PRN severe pain #10 12/16/20 09/08/21 Unknown mg tablet tabs isosorbide mononitrate 30 mg 30 mg PO QAM 30 days #30 tabs 12/16/20 09/08/21 09/08/21 tablet,extended release 24 hr Lactobacillus acidophilus 10 10,000 mmu cells PO DAILY 05/19/21 09/08/21 billion cell capsule (Probiotic) peppermint oil 90 mg 90 mg PO DAILY 05/19/21 09/08/21 09/08/21 capsule,delayed,extended release (IBgard) tamsulosin 0.4 mg capsule 0.4 mg PO DAILY 06/27/21 09/08/21 09/08/21 Active Medications Generic Name Dose Route Start Last Admin Trade Name Freq PRN Reason Stop Dose Admin Allopurinol 300 mg 09/09/21 09:00 09/09/21 09:04 Allopurinol 300 Mg Tab PO 10/09/21 08:59 300 mg DAILY ELMER Administration Aspirin 81 mg 09/09/21 09:00 09/09/21 09:04 Aspirin 81 Mg Ectab PO 10/09/21 08:59 81 mg DAILY ELMER Administration Atorvastatin Calcium 80 mg 09/08/21 21:58 09/08/21 23:21 Atorvastatin 40 Mg Tab PO 10/08/21 21:57 80 mg QPM ELMER Administration Fluticasone Propionate 2 sprays 09/09/21 09:00 09/09/21 09:05 Fluticasone Propionate Na Spr 16 Gm Btl NA 10/09/21 08:59 2 sprays DAILY ELMER Administration Folic Acid 1 mg 09/09/21 09:00 09/09/21 09:04 Folic Acid 1 Mg Tab PO 10/09/21 08:59 1 mg DAILY ELMER Administration Furosemide 80 mg 09/09/21 09:00 07/27/22 09:04 Furosemide 80 Mg Tab PO 10/09/21 08:59 80 mg QAM ELMER Administration Pantoprazole Sodium 40 mg/ 100 mls @ 20 mls/hr 09/08/21 17:45 09/09/21 10:58 Dextrose IV 10/08/21 17:44 8 mg/hr Q5H ELMER 20 mls/hr Administration 8 MG/HR Insulin Aspart 0 units 09/08/21 22:15 09/09/21 09:20 Insulin Aspart Per Unit SC 10/08/21 22:14 1 units Q6 ELMER Administration Isosorbide Mononitrate 30 mg 09/09/21 09:00 09/09/21 09:04 Isosorbide Nicholas Extended Rel 30 Mg Tabcr PO 10/09/21 08:59 30 mg QAM ELMER Administration Lactobacillus Acidophilus 2 cap 09/09/21 09:00 09/09/21 09:04 Advanced Probiotic 1250 Mg Capsule PO 10/09/21 08:59 2 cap DAILY ELMER Administration Tamsulosin HCl 0.4 mg 09/09/21 09:00 09/09/21 09:03 Tamsulosin Hcl 0.4 Mg Cap PO 10/09/21 08:59 0.4 mg DAILY ELMER Administration Past Medical History Medical History Anemia IRON INFUSIONS EVERY OTHER WEEK Anemia of chronic disease Chronic diastolic CHF (congestive heart failure) Chronic GI bleeding Chronic obstructive pulmonary disease CKD (chronic kidney disease), stage IV Diabetes mellitus, type 2 Diverticular disease GERD (gastroesophageal reflux disease) GI bleed History of colon polyps History of COVID-19 02/2021>NO SYMPTOMS *TESTED AT [facility] History of prostate cancer radiation seeds Hx of gout Hyperlipidemia Hypertension IDDM (insulin dependent diabetes mellitus) Obesity On home oxygen therapy 2L N/C AT HS WITH CPAP Osteoarthritis Pacemaker Psoriasis Sleep apnea CPAP WITH O2 AT 2L Past Family History Family History Son Family history of diabetes mellitus Other No family history of adverse response to anesthesia Past Surgical History Surgical History History of cardiac cath had 4 total--last 2015 @ [facility] History of colonoscopy History of esophagogastroduodenoscopy (EGD) History of heart artery stent x6 stents total History of prostate biopsy malignant History of tooth extraction S/P CABG x 3 2009 @ [facility] [place] [facility] [place]---follows with Dr. Rolon Status post LASIK surgery of both eyes Social History Smoking Status: Former smoker tobacco type: cigarettes Hx Alcohol Use: No Hx Substance Use: No substance use type: does not use Physical Exam Vital Signs Last Vital Signs Temp 37.1 C 09/08/21 23:08 Pulse 70 09/09/21 08:00 Resp 15 09/09/21 08:00 BP 129/86 09/09/21 08:00 Pulse Ox 99 09/09/21 08:00 O2 Del Method 09/09/21 08:00 O2 Flow Rate 2 09/09/21 03:45 Testing Laboratory Results 09/09/21 05:40 09/09/21 05:40 PT 10.3 Seconds (9.0-12.0) 09/08/21 17:30 INR 1.0 (0.9-1.1) 09/08/21 17:30 APTT 22.2 Seconds (21.0-31.0) 09/08/21 17:30 Urine Color Yellow 09/09/21 09:20 Urine Appearance Clear (Clear) 09/09/21 09:20 Urine pH 5.5 (4.5-7.5) 09/09/21 09:20 Ur Specific [place] 1.014 (1.000-1.030) 09/09/21 09:20 Urine Protein 2+ (Negative) H 09/09/21 09:20 Urine Glucose (UA) Negative (Negative) 09/09/21 09:20 Urine Ketones Negative (Negative) 09/09/21 09:20 Urine Nitrite Negative (Negative) 09/09/21 09:20 Ur Leukocyte Esterase Trace (Negative) H 09/09/21 09:20 Urine WBC (Auto) 5-10 /hpf (0-5) H 09/09/21 09:20 Urine RBC (Auto) 0-4 /hpf (0-4) 09/09/21 09:20 U Hyaline Cast (Auto) 1-5 /lpf (0-5) 09/09/21 09:20 U Epithel Cells (Auto) 10-20 /lpf (0-5) H 09/09/21 09:20 Urine Bacteria (Auto) Negative (Negative) 09/09/21 09:20 Blood Type A Positive 09/08/21 17:33 Antibody Screen NEGATIVE 09/08/21 17:33 09/09/21 09/08/21 09:01 23:26 POC Glucose 156 H 264 H Electrocardiogram Date: 09/08/21 Sinus tachycardia with Premature atrial complexes Nonspecific T wave abnormality Abnormal ECG When compared with ECG of 21-JUN-2021 13:50, Premature atrial complexes are now Present T wave inversion no longer evident in Lateral leads Confirmed by Devin Scott ([id number]) on 08/26/2021 11:26:06 AM
[2021-09-09] MEDS ORDERED: ALBUTEROL HFA INHALER 8.5 GM ONE (12:01)
[2021-09-09] MEDS ORDERED: PROPOFOL IV EMULSION 10 MG/ML 20 ML VIAL IV ONE ×2 (12:01→12:18)
[2021-09-09] MEDS ORDERED: LIDOCAINE 2% MPF LOCAL 5 ML VIAL INFIL ONE (12:01)
[2021-09-09] MEDS ORDERED: GLUCAGON FOR INJ 1 MG VIAL ONE (12:24)
--- NOTE | 2021-09-09 12:42 | GI REPORT ---
Patient Name: Maurisio Beltran Procedure Date: 09/09/2021 12:02 PM Date of : 1940 Admit Type: Inpatient Age: 81 Gender: Male Attending MD: River Negron MD Procedure: Upper GI endoscopy/small bowel enteroscopy Providers: River Negron MD Referring MD: BEBETO Casas Indications: Melena Medicines: See the Anesthesia note for documentation of the administered medications Complications: No immediate complications. Estimated Blood Loss: Estimated blood loss: none. Procedure: Pre-Anesthesia Assessment: - ASA Grade Assessment: III - A patient with severe systemic disease. After obtaining informed consent, the endoscope was passed under direct vision. Throughout the procedure, the patient's blood pressure, pulse, and oxygen saturations were monitored continuously. The Colonoscope was introduced through the mouth, and advanced to the proximal jejunum. The upper GI endoscopy was accomplished without difficulty. The patient tolerated the procedure well. Findings: The Z-line was irregular. Biopsies were taken with a cold forceps for histology. The entire examined stomach was normal. The examined duodenum was normal. The examined jejunum was normal. Impression: - Z-line irregular. Biopsied. - Normal stomach. - Normal examined duodenum. - Normal examined jejunum. Recommendation: Discharge pt to floor. Diet as tolerated. Ok for d/c tomorrow morning if hgb stable overnight. Consider iron infusion prior to discharge. No need PPI gtt. Nazanin Izquierdo MD 09/09/2021 12:41:31 PM This report has been signed electronically. Note Initiated On: 09/09/2021 12:02 PM Number of Addenda: 0 I attest to the content of the Intraoperative Record and orders documented therein, exceptions below {[id number]}
--- NOTE | 2021-09-09 13:06 | Electrocardiogram Report ---
Test Reason : Blood Pressure : / mmHG Vent. Rate : 087 BPM Atrial Rate : 087 BPM P-R Int : 224 ms QRS Dur : 158 ms QT Int : 436 ms P-R-T Axes : 052 -88 065 degrees QTc Int : 524 ms Atrial-sensed ventricular-paced rhythm with prolonged AV conduction Abnormal ECG When compared with ECG of 09-JUL-2021 12:28, Vent. rate has increased BY 10 BPM Confirmed by Tyler Aguirre ([id number]) on 09/09/2021 1:06:04 PM Referred By: REFERRED SELF Confirmed By:Tyler Aguirre
--- NOTE | 2021-09-09 13:38 | Anesthesiology Progress Note ---
Date of Service September 09, 2021 Anesthesia Post Procedure Vital Signs Vital Signs: Temp Pulse Pulse Resp BP BP Pulse Ox 09/09/21 13:13 09/09/21 13:05 66 16 160/79 H 98 09/09/21 12:50 66 22 151/71 H 98 09/09/21 12:36 69 22 137/75 100 09/09/21 11:23 36.5 C 68 16 101/51 L 99 09/09/21 08:00 70 15 129/86 99 09/09/21 03:45 65 24 96 09/08/21 23:45 70 17 99 09/08/21 23:38 71 21 128/64 99 09/08/21 23:08 37.1 C 76 20 126/50 L 98 09/08/21 23:22 76 20 126/50 L 98 09/08/21 22:53 36.7 C 82 16 132/56 L 99 09/08/21 22:39 75 16 131/71 97 09/08/21 22:35 36.8 C 77 18 131/71 100 09/08/21 22:32 36.8 C 76 18 131/71 96 09/08/21 21:55 36.7 C 77 18 109/53 L 98 09/08/21 20:55 36.8 C 88 18 117/60 99 09/08/21 20:25 36.5 C 78 20 120/54 L 98 09/08/21 20:10 36.8 C 82 16 134/63 100 09/08/21 19:53 36.7 C 83 16 117/57 L 98 09/08/21 17:26 98 09/08/21 17:08 36.6 C 85 19 121/60 98 O2 Del Method O2 Flow Rate 09/09/21 13:13 Room Air 09/09/21 13:05 Room Air 09/09/21 12:50 Room Air 09/09/21 12:36 Room Air 09/09/21 11:23 Room Air 09/09/21 08:00 Room Air 09/09/21 03:45 2 09/08/21 23:45 2 09/08/21 23:38 09/08/21 23:08 09/08/21 23:22 Room Air 09/08/21 22:53 09/08/21 22:39 Room Air 09/08/21 22:35 09/08/21 22:32 09/08/21 21:55 09/08/21 20:55 09/08/21 20:25 09/08/21 20:10 09/08/21 19:53 09/08/21 17:26 Room Air 09/08/21 17:08 Room Air Transfer of Care Handoff Completed per policy Notes Mental Status: alert / awake / arousable and participated in evaluation Patient Amnestic to Procedure: Yes Nausea / Vomiting: adequately controlled Pain: adequately controlled Airway Patency, RR, SpO2: stable & adequate BP & HR: stable & adequate Hydration State: stable & adequate Anesthetic Complications: no major complications apparent
--- NOTE | 2021-09-09 14:30 | Pharmacy Report ---
Pharmacy Glycemic Short Note 2 - Date of Service September 09, 2021 - Glycemic Short BSG Results (Last 24 hours): 09/08/21 09/08/21 09/08/21 17:30 19:45 23:26 Glucose 183 H POC Glucose 216 H 264 H 09/09/21 09/09/21 09/09/21 05:40 09:01 13:44 Glucose 213 H POC Glucose 156 H 193 H OUTPATIENT ANTIDIABETIC REGIMEN: * Tresiba 120 units in the morning * Victoza 1.8 mg SQ daily * Novolog 45 units in the morning and at 1600; 25 units HS (if bsg > 250 * HbA1C = 5.8% (06/24/21) ASSESSMENT: * Mr Beltran is a 81 y/o M with a PMH of T2DM who presents with a GI bleed. Patient is familiar to the DM service and typically requires around 25 units of Lantus daily + Novolog CF 20 CR 7. * Will resume the above regimen after procedure and when diet is ordered to ensure that patient's BSGs do not trend downwards during NPO status. PLAN FOR INPATIENT GLYCEMIC CONTROL: * Hold outpatient oral diabetes medications * Basal insulin * Lantus 25 units SQ daily * Bolus insulin * NovoLog per scale ACHS or Q6hrs while NPO * Goal Range: Low 110 mg/dL - High 140 mg/dL * Correction Factor: 20 mg/dL/unit * Nutritional / Prandial insulin per carb ratio of 1 unit per 7 grams CHO consumed
[2021-09-09] MEDS: LANTUS PER UNIT CHARGE SQ SCH (14:40)
[2021-09-09] MEDS ORDERED: IRON SUCROSE 300 MG in SODIUM CHLORIDE 0.9% 250 ML IV ONE (16:00)
--- NOTE | 2021-09-09 20:04 | Hospitalist Progress Note ---
Date of Service September 09, 2021 Assessment & Plan (1) Anemia of chronic disease: (2) GI bleed: (3) CHF (congestive heart failure): (4) IDDM (insulin dependent diabetes mellitus): (5) CKD (chronic kidney disease), stage IV: (6) Psoriatic arthritis: Plan 81 year old male was sent to the ED for abnormal labs with a hgb 7.6, then dropped 7.2 associated with worsening SOB. Anemia of Chronic Disease: Fe+ Deficiency Anemia Pt receives every other week Fe+ infusions and receives care under Dr. Christine Hgb on on admission 7.2 Status post 2 unit PRBC on 09/08/21 Hemoglobin today 9.5 Case discussed with hematology Dr. Christine that recommended IV Venofer 300 mg x 1 Continue monitor CBC GI Bleed: -Receives care under Dr. Diaz (Was scheduled scheduled to have a balloon endoscopy procedure in [place] on September 22) Status post upper GI endoscopy and small bowel enteroscopy- Normal No need for PPI drip has poor GI Diet advance as tolerated Okay from GI standpoint to discharge tomorrow if hemoglobin stable Continue monitor H&H CHF Recent ECHO 06/2021 EF 55-60% Continue Losartan Continue Lasix 80 mg daily Medically stable IDDM: Home regimen includes Novolog 45 units before breakfast and supper with 25 units at bedtime. Hold AM dose for possible procedure; pt will be NPO after MN. ac/hs checks ordered and SSI orders placed. HA1C June 2021: 5.8 Continue to hold outpatient diabetic med pharmacy on board for glycemic management CKD Stage IV: BUN 31 and Creatinine 1.81 Creatinine 1.7 today Stable Psoriatic Arthritis: Follow with Dr. Carrillo opt Takes Enbrel SQ weekly. Last dose 09/03 CODE STATUS full code Disposition: Possible discharge home tomorrow Admission and Anticipated Discharge Date Admission Date: September 08, 2021 Subjective Patient was seen and evaluated for follow-up of low hemoglobin Sitting in chair with no acute distress Patient said that he feels much better He said that he has more energy today compared to yesterday Denies any chest pain, palpitation, dizziness, and fever. Review of Systems Review of Systems: All systems reviewed & are unremarkable except as noted in Subjective Physical Exam Physical Exam: General- No acute distress Head- atraumatic Eyes- PERRL, EOMI, ENT- oropharynx clear Neck- supple, no JVD Lungs- clear to auscultation Heart- regular rhythm; no murmur Abdomen- normal bowel sounds, soft, nontender Extremities- no calf tenderness Neuro- alert, oriented x 3; PERRL, EOMI; no facial palsy; no dysarthria Skin- warm & dry Results & Data Results & Data ([facility]) Vital Signs (Past 12 Hours) Vital Signs Temp Pulse Pulse Pulse Resp BP Pulse Ox 09/09/21 18:29 36.6 C 71 20 120/59 L 98 09/09/21 17:30 71 20 147/72 H 99 09/09/21 15:30 36.6 C 65 20 120/72 98 09/09/21 15:10 67 09/09/21 14:30 36.6 C 69 20 119/68 98 09/09/21 13:57 67 09/09/21 13:35 36.4 C L 72 18 135/78 100 09/09/21 13:13 09/09/21 13:05 66 16 160/79 H 98 09/09/21 12:50 66 22 151/71 H 98 09/09/21 12:36 69 22 137/75 100 09/09/21 11:23 36.5 C 68 16 101/51 L 99 09/09/21 08:00 70 15 129/86 99 O2 Del Method 09/09/21 18:29 Room Air 09/09/21 17:30 Room Air 09/09/21 15:30 Room Air 09/09/21 15:10 09/09/21 14:30 Room Air 09/09/21 13:57 09/09/21 13:35 Room Air 09/09/21 13:13 Room Air 09/09/21 13:05 Room Air 09/09/21 12:50 Room Air 09/09/21 12:36 Room Air 09/09/21 11:23 Room Air 09/09/21 08:00 Room Air
[2021-09-09] MEDS: ATORVASTATIN 40 MG TAB PO SCH (20:35)
[2021-09-10 06:12] LABS: Hematocrit (blood only) 29.5 % (40.1-51.0); Hemoglobin 9.2 g/dl (14.0-18.0); Mean Corpuscular Hemoglobin 29.2 pg (25.0-34.0); Mean Corpuscular Hgb Conc 31.2 g/dL (32.0-36.0); Mean Corpuscular Volume 93.7 fL (80.0-100.0); Platelet Count 225 K/uL (130-400); RDW Standard Deviation 60.2 fL (36.4-46.3); Red Blood Count 3.15 M/uL (4.63-6.08); White Blood Count 11.72 K/ul (4.8-10.8)
[2021-09-10] MEDS: TAMSULOSIN HCL 0.4 MG CAP PO SCH (08:19)
[2021-09-10] MEDS: allopurinoL 300 MG TAB PO SCH (08:19)
[2021-09-10] MEDS: FUROSEMIDE 80 MG TAB PO SCH (08:20)
[2021-09-10] MEDS: ISOSORBIDE MONO EXTENDED REL 30 MG TABCR PO SCH (08:20)
[2021-09-10] MEDS: ASPIRIN 81 MG ECTAB PO SCH (08:20)
[2021-09-10] MEDS: FOLIC ACID 1 MG TAB PO SCH (08:20)
[2021-09-10] MEDS: ADVANCED PROBIOTIC 1250 MG CAPSULE PO SCH (08:20)
[2021-09-10] MEDS: FLUTICASONE PROPIONATE NA SPR 16 GM BTL SCH (08:21)
[2021-09-10] MEDS: LANTUS PER UNIT CHARGE SQ SCH (08:24)
[2021-09-10] MEDS: INSULIN ASPART PER UNIT SC SCH ×2 (08:24→12:09)
--- NOTE | 2021-09-10 10:08 | Gastroenterology Progress Note ---
Date of Service September 10, 2021 Assessment & Plan (1) SOB (shortness of breath): (2) SNOW (iron deficiency anemia): Plan: Patient is a 81 years old male currently admitted for symptomatic anemia, treated with 2 units PRBC transfusion with good response in his blood count. History of iron deficiency anemia, dependent on Procrit injections and Venofer IV infusion. History of small bowel AVMs, was scheduled for small bowel balloon enteroscopy in October. He is having black stools, which is his norm although no longer taking his iron tablets anymore. SBE 09/09 wo signs of GI bleeding. Zline irregular, bx pending. No s/s of GI bleeding overnight, blood ct stable. Will keep originally scheduled small bowel balloon enteroscopy on 10/23/2021. Our clinic is also initiating prior auth for Octoreotide 50mcg subQ injections BID to help prevent AVM bleed. OK for DC from GI standpoint today Admission and Anticipated Discharge Date Admission Date: September 08, 2021 Supervising Physician Co-Signing Physician Notes Attg add:I interviewed and examined pt, reviewed chart and labs. Pt with stable hgb, no further GIB. OK for d/c from our standpoint. Subjective Pt had solid, black stools this AM. Denies abd pain, n/v. Blood ct stable. Review of Systems Review of Systems: All systems reviewed & are unremarkable except as noted in HPI & below Physical Exam Constitutional: WD/WN, vitals as above well groomed, cooperative and comfortable Eyes: PERRL, conjunctivae normal, anicteric sclerae ENMT: external ear and nose normal, oropharynx normal Respiratory: normal respiratory effort, lungs clear to auscultation Cardiovascular: RRR, no murmur, no edema Gastrointestinal (Abdomen): normal bowel sounds, soft, nontender, no hepatosplenomegaly Skin: no rashes, warm and dry no jaundice Psychiatric: A+Ox3, euthymic affect Lymphatic: no lymphedema Results & Data ([facility]) Vital Signs (Past 12 Hours) Vital Signs Temp Pulse Pulse Resp BP Pulse Ox O2 Del Method 09/10/21 07:49 60 09/10/21 07:49 36.6 C 68 20 126/62 95 09/10/21 04:04 36.6 C 64 18 145/76 H 99 BiPAP 09/10/21 03:31 23 09/10/21 00:29 68 24 97 09/09/21 23:29 70 09/09/21 23:14 36.7 C 70 18 148/69 H 98 Room Air O2 Flow Rate 09/10/21 07:49 09/10/21 07:49 09/10/21 04:04 09/10/21 03:31 2 09/10/21 00:29 2 09/09/21 23:29 09/09/21 23:14
--- NOTE | 2021-09-10 14:54 | Discharge Summary ---
Date of Service September 10, 2021 Admission HPI Per Admitting Provider Mr. Maurisio Beltran is a 81 year old male who presented to the [facility] by the recommendations of his PCP Dr. Petersen for abnormal labs with a hgb of 7.6, now 7.2 and worsening SOB. He has a quite complex medical history that includes: CABG x3 in 2008, PCI with 6 stents to RCA in 2016, pacemaker dependent, Small bowel AVM's, Barrets esophagus, PA, Diastolic CHF with recent ECHO 07/05 with EF 55-60%, Fe+ deficiency Anemia for which he follows with Dr. Christine, CKD IV, GERD, Prostate CA s/p seed implantation treatment, sleep apnea s/p O2 supplemental O2 dependent at home with CPAP use at , IDDM2, macular degeneration and OA. The patient has had intensive work up with Dr. Diaz with GI and was scheduled to have a balloon endoscopy procedure in [place] on September 22. In route with EMS he started to have upper chest pain; an EKG was performed and unchanged with his paced rhythm. He was started on a Protonix gtt and was ordered 2UPBC as his Hgb trended down to 7.2. Pt denies OLIVER, dizziness, current chest pain, palpitations, abdominal pain, N/V/D, skin changes, rashes, ambulation dysfunction. He does take an Fe+ tablet and he is heme + with dark tarry stools without any signs of overt bleeding. Please see A/P for further details. Admission Exam Per Admitting Provider Neuro: AAOx4, PERRLA, no aphagia, memory changes, CNII-XII grossly intact HEENT: head normocephalic, moist mucus membranes CV: S1/S2, (-) M/G/R, (-) edema, cap refill < 3 seconds Resp: Lungs CTA in all lara. On RA GI: Abdomen S/NT/ND, Ax4 bowel sounds, (-) CVA tenderness Musculoskeletal: 5/5 B/L UE strength, 5/5 B/L LE strength. No gait disturbance Skin: (-) rashes , (-) erythema. (+) left upper chest access port Psych: euthymic mood Principal Diagnosis 1) Anemia of chronic disease: (2) GI bleed: (3) CHF (congestive heart failure): (4) IDDM (insulin dependent diabetes mellitus): (5) CKD (chronic kidney disease), stage IV: (6) Psoriatic arthritis (7) History of prostate cancer Discharge Exam General- No acute distress Head- atraumatic Eyes- PERRL, EOMI, ENT- oropharynx clear Neck- supple, no JVD Lungs- clear to auscultation Heart- regular rhythm; no murmur Abdomen- normal bowel sounds, soft, nontender Extremities- no calf tenderness Neuro- alert, oriented x 3; PERRL, EOMI; no facial palsy; no dysarthria Skin- warm & dry Discharge Data Allergies Allergy/AdvReac Type Severity Reaction Status Date / Time methylprednisolone AdvReac Severe AMS Verified 09/08/21 18:06 hydromorphone [From Dilaudid] AdvReac Intermediate Nausea Verified 09/08/21 18:06 prednisone AdvReac Intermediate INCREASE Verified 09/08/21 18:06 BLOOD SUGAR Consultations 09/08/21 17:50 ED Decision to Admit Stat 09/09/21 08:00 Consult Gastroenterology Routine Procedures Performed Operation Date: 09/09/21 17:30 Actual Procedures p Small Bowel Enteroscopy BX/CYT - River Negron MD DICTATED BY:River Negron MD Patient Name: Maurisio Beltran Procedure Date: 09/09/2021 12:02 PM Date of : 1940 Admit Type: Inpatient Age: 81 Gender: Male Attending MD: River Negron MD Procedure: Upper GI endoscopy/small bowel enteroscopy Providers: River Negron MD Referring MD: BEBETO Casas Indications: Melena Medicines: See the Anesthesia note for documentation of the administered medications Complications: No immediate complications. Estimated Blood Loss: Estimated blood loss: none. Procedure: Pre-Anesthesia Assessment: - ASA Grade Assessment: III - A patient with severe systemic disease. After obtaining informed consent, the endoscope was passed under direct vision. Throughout the procedure, the patient's blood pressure, pulse, and oxygen saturations were monitored continuously. The Colonoscope was introduced through the mouth, and advanced to the proximal jejunum. The upper GI endoscopy was accomplished without difficulty. The patient tolerated the procedure well. Findings: The Z-line was irregular. Biopsies were taken with a cold forceps for histology. The entire examined stomach was normal. The examined duodenum was normal. The examined jejunum was normal. Impression: - Z-line irregular. Biopsied. - Normal stomach. - Normal examined duodenum. - Normal examined jejunum. Recommendation: Discharge pt to floor. Diet as tolerated. Ok for d/c tomorrow morning if hgb stable overnight. Consider iron infusion prior to discharge. No need PPI gtt. Nazanin Izquierdo MD 09/09/2021 12:41:31 PM This report has been signed electronically. Note Initiated On: 09/09/2021 12:02 PM Number of Addenda: 0 I attest to the content of the Intraoperative Record and orders documented therein, exceptions below {[id number]} Created/Dictated:09/09/21 1202 Transcribed: 09/09/21 1241 Ordered Studies XR chest 1V portable CLINICAL HISTORY: Chest Pain. COMPARISON STUDY: 07/09/2021 TECHNIQUE: 1 view of the chest FINDINGS: Single frontal view of the chest demonstrates the heart size to again be mildly enlarged status post previous cardiothoracic surgery and pacer placement. The lungs are clear of alveolar opacities. There is no evidence for pleural effusion. There is no evidence for vascular congestion. There is no acute osseous pathology. IMPRESSION: 1. No acute cardiopulmonary disease. ACT 112: Negative or not required by law. Electronically signed by: Henry Reyna M.D. 09/08/2021 5:42 PM Dictated:09/08/211740 Transcribed: 09/08/211740 Hospital Course (1) Anemia of chronic disease: (2) GI bleed: (3) CHF (congestive heart failure): (4) IDDM (insulin dependent diabetes mellitus): (5) CKD (chronic kidney disease), stage IV: (6) Psoriatic arthritis: Plan 81 year old male was sent to the ED for abnormal labs with a hgb 7.6, then dropped 7.2 associated with worsening SOB. Anemia of Chronic Disease: Fe+ Deficiency Anemia Pt receives every other week Fe+ infusions and receives care under Dr. Christine Hgb on on admission 7.2 Status post 2 unit PRBC on 09/08/21 Hemoglobin today 9.2 Case discussed with hematology Dr. Christine that recommended IV Venofer 300 mg x 1 during hospital course Check CBC within 1 week outpatient Follow up with Oncology and hematology outpatient Dr. Christine GI Bleed: -Receives care under Dr. Diaz (Was scheduled scheduled to have a balloon endoscopy procedure in [place] on September 22) Status post upper GI endoscopy and small bowel enteroscopy- Normal No need for PPI drip has poor GI Diet advance as tolerated Okay from GI standpoint to discharge today f hemoglobin stable Continue monitor H&H CHF Recent ECHO 06/2021 EF 55-60% Continue Losartan Continue Lasix 80 mg daily Medically stable IDDM: Home regimen includes Novolog 45 units before breakfast and supper with 25 units at bedtime. Hold AM dose for possible procedure; pt will be NPO after MN. ac/hs checks ordered and SSI orders placed. HA1C June 2021: 5.8 Continue to hold outpatient diabetic med pharmacy on board for glycemic management CKD Stage IV: BUN 31 and Creatinine 1.81 Creatinine 1.7 today Stable Hx Prostate Cancer Recent outpatient PSA 10.2 Follow up with Oncology and urology outpatient Psoriatic Arthritis: Follow with Dr. Carrillo opt Takes Enbrel SQ weekly. Last dose 09/03 CODE STATUS full code Disposition: Possible discharge home today Total Time Total Time Spent Total Time Spent (In Minutes): 40 minutes Discharge Plan Discharge Items Patient Disposition: Home - Self-Care Reason For Visit: ABNORMAL LABS Discharge Diagnosis: (1) Anemia of chronic disease: (2) GI bleed: (3) CHF (congestive heart failure): (4) IDDM (insulin dependent diabetes mellitus): (5) CKD (chronic kidney disease), stage IV: (6) Psoriatic arthritis: Activity: Resume your previous activity Non-emergency contact: Primary Care Provider and Nail Expert Call non-emergency contact if: you have any medication questions Follow-up/Referrals: Blair Hannah [Physician Automotive Production Worker] - (Date & Time 09/15/2021 1:00 PM Provider Blair Hannah PA-C Department Cardiology [facility] ) Nicola Prado MD [Primary Care Provider] - (Date & Time 09/17/2021 11:20 AM Provider Nicola Prado MD Department Family Medicine [facility] ) Diet: Carb Consistent or DM2 Addtl Attending Provider Instructions: Follow up with your primary care provider Dr. Prado 09/17/2021 @ 11:20 AM Family Medicine [facility] Follow up with cardiology Blair Hannah PA-C 09/15/2021 @1:00 PM Cardiology [facility] Follow up with Oncology/hematology Dr. Christine for the anemia Follow up with Urology for the abnormal prostate marker ( already had appointment schedule) Check CBC in 1 week to monitor your hemoglobin. Pending Studies at Discharge: No Stand-Alone Forms: My [facility] [employer], Smoking Cessation Medications and DC Order Prescriptions: Continued Enbrel SureClick 50 mg/mL (0.98 mL) Pen Injector 1 dose subcut WK Rx Instructions: TAKES ON TU. furosemide [Lasix] 80 mg Tablet 80 mg PO QAM Tresiba FlexTouch U-200 200 unit/mL (3 mL) Insulin Pen 130 unit SUBCUT QAM atorvastatin 80 mg Tablet 80 mg PO QPM nitroglycerin [Nitrostat] 0.4 mg Tablet, Sublingual 0.4 mg Sublingual UD PRN (Reason: Chest Pain) Rx Instructions: ONE TABLET UNDER THE TONGUE EVERY 5 MINUTES UP TO 3 DOSES. fluticasone propionate [Flonase Allergy Relief] 50 mcg/actuation Orange,Suspension 2 spray INTRANASAL DAILY Rx Instructions: EACH NOSTRIL omeprazole 20 mg Tablet,Delayed Release (Dr/Ec) 20 mg PO BID Qty: 60 1RF aspirin [Beba Low Dose Aspirin] 81 mg Tablet,Delayed Release (Dr/Ec) 81 mg PO DAILY Label Comments: QAM folic acid 1 mg tablet 1 mg PO DAILY allopurinol 300 mg tablet 300 mg PO DAILY Label Comments: QAM insulin aspart U-100 [Novolog Flexpen U-100 Insulin] 100 unit/mL (3 mL) insulin pen 0 unit SUBCUT TIDM Label Comments: patient states he took 40 units total yesterday. Rx Instructions: plus sliding scale PER PT "TAKES 45 UNITS QAM & AT 1600, THEN IF BSG >250 TAKES 25 UNITS AT HS". Victoza 3-Kei 0.6 mg/0.1 mL (18 mg/3 mL) pen injector 1.8 mg SUBCUT QAM isosorbide mononitrate 30 mg Tablet Extended Release 24 Hr 30 mg PO QAM 30 Days Qty: 30 2RF hydrocodone-acetaminophen 5-325 mg Tablet 1 tab PO Q4H PRN (Reason: severe pain) Qty: 10 0RF Probiotic 10 billion cell Capsule 10,000 mmu cells PO DAILY IBgard 90 mg Capsule,Delayed,Extend.Release 90 mg PO DAILY tamsulosin 0.4 mg capsule 0.4 mg PO DAILY Discharge Orders: Discharge Order (Routine); Ordered 09/10/21 Ordered By: Hua Jean Admission Data Admit Date/Time: 09/08/21 19:14 Attending Provider: Hua Jean Admit Provider: Lonnie Ervin Primary Care Provider: Nicola Prado Other Providers: Annelise Diaz ; Lonnie Ervin Other Interventions: Discharge Summary Assessment (RN) Last Done: 09/10/21 15:06
== END 2021-09-10 15:26 | disposition home or self-care (01) | DRG 378 ==
LOC: ED 17:06 → EDINP 19:14 → SUATTDRO 19:14 → 2N 09-09 13:13

== ENCOUNTER 2021-10-03 19:22 | Inpatient (IN) ==
--- NOTE | 2021-10-03 19:37 | Emergency Department Note ---
Impression & Plan TIA (transient ischemic attack), AMS (altered mental status), Hypocalcemia, Hypomagnesemia ED Provider Note NAME: EMI MCDONOUGH AGE: 81 SEX: M : 1940 ARRIVES VIA: Ambulance INFORMANT: Patient, EMS ED PROVIDER(S): Jose Eduardo Emery DO CHIEF COMPLAINT: Altered mental status HPI: The patient is a 81-year-old male who presented to the emergency department for evaluation of altered mental status. The patient states that he had an episode that occurred after he was done mowing his grass. The patient was outside mowing his grass and then came in. His family was noted that he was not acting appropriately. The patient himself states that he knew that something was wrong. He states he could just not explain himself to his family. He denies having any unilateral weakness. He denies having any headache. It sounds though he may have had some forgetfulness and not new his surroundings but also may have been having some trouble with word finding. Additional history is obtained from the EMS personnel. They state that when they arrived on scene the patient was awake and alert and talking normally. It is unclear ho w long this episode occurred as he was mowing grass in the middle of the afternoon. He denies having any nausea or vomiting at this time. He denies having any chest pain or difficulty breathing. He states he has no history of stroke. He was recently treated for C. difficile colitis. ROS: See above HPI for pertinent positives & negatives. A total of 10 systems reviewed and were otherwise negative. PAST MEDICAL HISTORY: See Below PAST SURGICAL HISTORY: See Below FAMILY HISTORY: See Below SOCIAL HISTORY: See Below HOME MEDICATIONS: See Below ALLERGIES: See Below VITALS: See Below PHYSICAL EXAMINATION: GENERAL: Patient is awake alert in no acute distress patient is resting comfortably and showing no signs of anxiety EYES: The conjunctivae are clear. The pupils are round and reactive. EARS, NOSE, MOUTH AND THROAT: The nose is without any evidence of any deformity. NECK: The neck is nontender and supple. RESPIRATORY: Normal respiratory effort is noted there is no evidence of wheezing rhonchi or rales CARDIOVASCULAR: Regular rate and rhythm noted there no murmurs rubs or gallops normal S1 normal S2. GASTROINTESTINAL: The abdomen is soft. Abdomen is nontender. MUSCULOSKELETAL/EXTREMITIES: There is no evidence of gross deformity full range of motion is noted in the hips and shoulders. SKIN: Skin is warm and dry. Pedal edema was noted bilaterally. NEUROLOGIC: Patient is awake alert and oriented x3. There is no facial droop. There is no drift in the upper extremities. MEDICAL DECISION MAKING: The patient is a 81-year-old male who presented to the emergency department by ambulance with altered mental status. The patient was awake and alert when he arrived in the emergency department. He did not have any focal neurologic deficits. The story sounds that the patient may have had an episode where he was having trouble word finding. I am unsure if this represents a TIA but he does not report any weakness. The patient was also recently treated for C. difficile colitis. He finished the antibiotics but continues to have some loose bowel movements. He states that this is significantly improved compared to previous. The patient was treated with IV fluids in the emergency department. He was reevaluated multiple times. I discussed patient's laboratory and radiographic studies with him. His family members are very concerned and did not feel that he would not do well at home given his current state. For this reason I [facility] They have agreed to evaluate the patient in the emergency department for further management and disposition. Triage Nursing notes reviewed. Prior medical records reviewed Vital Signs: reviewed and remarkable for no significant abnormalities Differential diagnosis: Infection, hypoglycemia, electrolyte abnormalities, overdose, toxicologic, cardiac sources, intracerebral event, neurologic, trauma, as well as other pathologies. ER treatment provided: See below Diagnostics interpreted by me: ECG: EKG was obtained in the emergency department. My interpretation is dual- chamber pacemaker at 85 bpm. There is no beats noted. This was compared to a tracing from September 20, 2021. No changes were noted. Cardiac Monitoring: An order was placed for continuous cardiac monitoring. The monitor shows a rate of 81 bpm with sinus rhythm. Laboratory studies: As stated above and show below. Imaging studies: See below Consultation(s): I discussed this case with Dr. Peterson [facility] have agreed to evaluate the patient in the emergency department for further management and disposition. Past Med/Surg History Medical History Anemia IRON INFUSIONS EVERY OTHER WEEK Anemia of chronic disease CHF (congestive heart failure) Chronic diastolic CHF (congestive heart failure) Chronic GI bleeding Chronic obstructive pulmonary disease CKD (chronic kidney disease), stage IV Diabetes mellitus, type 2 Diverticular disease GERD (gastroesophageal reflux disease) GI bleed GI bleed History of colon polyps History of COVID-19 02/2021>NO SYMPTOMS *TESTED AT [facility] History of prostate cancer radiation seeds Hx of gout Hyperlipidemia Hypertension SNOW (iron deficiency anemia) IDDM (insulin dependent diabetes mellitus) Obesity On home oxygen therapy 2L N/C AT HS WITH CPAP Osteoarthritis Pacemaker Psoriasis Psoriatic arthritis Sleep apnea CPAP WITH O2 AT 2L Surgical History History of cardiac cath had 4 total--last 2015 @ [facility] History of colonoscopy History of esophagogastroduodenoscopy (EGD) History of heart artery stent x6 stents total History of prostate biopsy malignant History of tooth extraction S/P CABG x 3 2008 @ [facility]---follows with Dr. Rolon Status post LASIK surgery of both eyes Family History Son Family history of diabetes mellitus Other No family history of adverse response to anesthesia Social History Smoking Status: Never smoker Tobacco Type: Cigarettes Second Hand Exposure: No; Hx Alcohol Use: No Hx Substance Use: No Preferred Language: Wolof Communication Ability: Effective Unit Supervisor Required: No Beliefs That Will Affect Care: None marital status: Current Living Situation: Spouse Current Living Situation Comment: /SON [employer] GRANDSON How many Children do You have: 2 Feels Safe at Home: Yes Assistive Devices: CPAP, Oxygen - at Night and Wheelchair Allergies Allergies Allergy/AdvReac Type Severity Reaction Status Date / Time methylprednisolone AdvReac Severe AMS Verified 09/20/21 19:31 hydromorphone [From Dilaudid] AdvReac Intermediate Nausea Verified 09/20/21 19:31 prednisone AdvReac Intermediate INCREASE Verified 09/20/21 19:31 BLOOD SUGAR Home Meds Home Medications Medication Instructions Recorded Confirmed atorvastatin 80 mg tablet 80 mg PO QPM 11/13/17 09/20/21 fluticasone propionate 50 2 spray intranasal DAILY 11/13/17 09/20/21 mcg/actuation nasal spray,suspension (Flonase Allergy Relief) insulin degludec 200 unit/mL (3 130 unit subcut QAM 11/13/17 09/20/21 mL) subcutaneous pen (Tresiba FlexTouch U-200 insulin) nitroglycerin 0.4 mg sublingual 0.4 mg sublingual UD PRN Chest Pain 11/13/17 09/20/21 tablet (Nitrostat) etanercept 50 mg/mL (1 mL) 1 dose subcut WK 04/10/18 09/20/21 subcutaneous pen injector (Enbrel SureClick) furosemide 80 mg tablet (Lasix) 80 mg PO QAM 04/20/18 09/20/21 allopurinol 300 mg tablet 300 mg PO DAILY 06/09/20 09/20/21 aspirin 81 mg tablet,delayed 81 mg PO DAILY 06/09/20 09/20/21 release (Beba Low Dose Aspirin) folic acid 1 mg tablet 1 mg PO DAILY 06/09/20 09/20/21 insulin aspart U-100 100 unit/mL 0 unit subcut TIDM 10/29/20 09/20/21 (3 mL) subcutaneous pen (Novolog Flexpen U-100 Insulin aspart) liraglutide 0.6 mg/0.1 mL (18 mg/3 1.8 mg subcut QAM 10/29/20 09/20/21 mL) subcutaneous pen injector (redBus.inza 3-Kei) Lactobacillus acidophilus 10 10,000 mmu cells PO DAILY 05/19/21 09/20/21 billion cell capsule (Probiotic) tamsulosin 0.4 mg capsule 0.4 mg PO DAILY 06/27/21 09/20/21 albuterol sulfate 90 mcg/actuation 2 puff inhalation Q4H PRN 09/20/21 09/20/21 aerosol inhaler (ProAir HFA) COUGH/SHORTNESS OF BREATH betamethasone dipropionate 0.05 % 1 applic topical BID PRN ECZEMA 09/20/21 09/20/21 topical cream FLARE UPS losartan 25 mg tablet 25 mg PO QAM 09/20/21 09/20/21 octreotide acetate 50 mcg/mL 50 mcg subcut BID 09/20/21 09/20/21 injection solution sertraline 50 mg tablet 50 mg PO QAM 09/20/21 09/20/21 triamcinolone acetonide 0.1 % 1 applic topical BID PRN Skin 09/20/21 09/20/21 topical ointment Irritation Previous Rx's Medication Instructions Recorded omeprazole 20 mg tablet,delayed 20 mg PO BID #60 tabs 10/14/19 release isosorbide mononitrate 30 mg 30 mg PO QAM 30 days #30 tabs 12/16/20 tablet,extended release 24 hr Results & Data (ED) Vital Signs Vital Signs - 24 hr 10/03/21 19:25 10/03/21 19:25 10/03/21 19:45 Temperature 36.9 C Temperature Source Oral Pulse Rate 87 81 Pulse Rhythm Regular Respiratory Rate 17 Respiratory Effort / Characteristics Non-Labored Respiratory Depth Normal Pulse Oximetry 97 96 95 Oxygen Delivery Method Room Air Room Air Room Air Sepsis Recent Fever Within 48 Hours No Sepsis New/Unexplained Change in Mental Status Yes Sepsis Action Taken by Nursing No Action Required Home Medications Current Medication List: was personally reviewed by me Laboratory Data Attestation: I reviewed the patient's lab results. Result diagrams: 10/03/21 19:35 10/03/21 19:35 Lab Results 10/03/21 10/03/21 10/03/21 Range/Units 19:29 19:35 19:35 WBC 11.14 H (4.8-10.8) K/ul RBC 3.30 L (4.63-6.08) M/uL Hgb 9.6 L (14.0-18.0) g/dl Hct 31.2 L (40.1-51.0) % MCV 94.5 (80.0-100.0) fL MCH 29.1 (25.0-34.0) pg MCHC 30.8 L (32.0-36.0) g/dL RDW Std Deviation 58.5 H (36.4-46.3) fL RDW Coeff of Joey 17.0 H (11.5-14.5) % Plt Count 235 (130-400) K/uL MPV 9.3 L (9.4-12.4) fL Immature Gran % (Auto) 0.4 % Neut % (Auto) 82.6 % Lymph % (Auto) 9.0 % [place] % (Auto) 3.5 % Eos % (Auto) 4.0 % Baso % (Auto) 0.5 % Neut # (Auto) 9.19 H (1.4-6.5) K/uL Lymph # (Auto) 1.00 L (1.2-3.4) K/uL [place] # (Auto) 0.39 (0.24-0.82) K/uL Eos # (Auto) 0.45 (0-0.50) K/uL Baso # (Auto) 0.06 (0-0.2) K/uL Immature Gran # (Auto) 0.05 H (0.00-0.02) K/uL PT Cancelled INR Cancelled APTT Cancelled PTT Ratio Cancelled Sodium (136-145) mmol/L Potassium (3.5-5.1) mmol/L Chloride (98-107) mmol/L Carbon Dioxide (21-32) mmol/L Anion Gap (3-11) BUN (6-23) mg/dl Creatinine (0.6-1.4) mg/dl Est Cr Clr Drug Dosing ml/min Est GFR ( Amer) ml/min Est GFR (Non-Af Amer) ml/min BUN/Creatinine Ratio (10-20) Glucose (70-99(Fasting)) mg/dl POC Glucose 116 H (70-99) mg/dl Calcium (8.5-10.1) mg/dl Magnesium (1.7-2.4) mg/dl Total Bilirubin (0.2-1.0) mg/dl AST (13-39) U/L ALT (7-52) U/L Alkaline Phosphatase (34-104) U/L Troponin I High Sens (0-20) pg/ml Total Protein (6.0-8.3) gm/dl Albumin (3.4-5.0) gm/dl Globulin (2.5-4.0) gm/dl Albumin/Globulin Ratio (0.9-2) TSH (0.300-4.500) uIu/ml 10/03/21 10/03/21 10/03/21 Range/Units 19:35 19:35 20:35 WBC (4.8-10.8) K/ul RBC (4.63-6.08) M/uL Hgb (14.0-18.0) g/dl Hct (40.1-51.0) % MCV (80.0-100.0) fL MCH (25.0-34.0) pg MCHC (32.0-36.0) g/dL RDW Std Deviation (36.4-46.3) fL RDW Coeff of Joey (11.5-14.5) % Plt Count (130-400) K/uL MPV (9.4-12.4) fL Immature Gran % (Auto) % Neut % (Auto) % Lymph % (Auto) % [place] % (Auto) % Eos % (Auto) % Baso % (Auto) % Neut # (Auto) (1.4-6.5) K/uL Lymph # (Auto) (1.2-3.4) K/uL [place] # (Auto) (0.24-0.82) K/uL Eos # (Auto) (0-0.50) K/uL Baso # (Auto) (0-0.2) K/uL Immature Gran # (Auto) (0.00-0.02) K/uL PT 10.9 INR 1.0 APTT 31.3 H PTT Ratio 1.1 Sodium 139 (136-145) mmol/L Potassium 3.5 (3.5-5.1) mmol/L Chloride 109 H (98-107) mmol/L Carbon Dioxide 24 (21-32) mmol/L Anion Gap 6 (3-11) BUN 29 H (6-23) mg/dl Creatinine 1.39 (0.6-1.4) mg/dl Est Cr Clr Drug Dosing 50.8 ml/min Est GFR ( Amer) 55.5 ml/min Est GFR (Non-Af Amer) 47.9 ml/min BUN/Creatinine Ratio 20.9 H (10-20) Glucose 95 (70-99(Fasting)) mg/dl POC Glucose (70-99) mg/dl Calcium 6.9 L (8.5-10.1) mg/dl Magnesium 1.6 L (1.7-2.4) mg/dl Total Bilirubin 0.7 (0.2-1.0) mg/dl AST 20 (13-39) U/L ALT 15 (7-52) U/L Alkaline Phosphatase 94 (34-104) U/L Troponin I High Sens 11.3 (0-20) pg/ml Total Protein 5.8 L (6.0-8.3) gm/dl Albumin 3.1 L (3.4-5.0) gm/dl Globulin 2.7 (2.5-4.0) gm/dl Albumin/Globulin Ratio 1.1 (0.9-2) TSH 1.492 (0.300-4.500) uIu/ml Administered Medications Discontinued Medications Sodium Chloride (Nss) 500 mls @ 999 mls/hr IV .Q31M ELMER Stop: 10/03/21 20:15 Last Infusion: 10/03/21 20:48 Dose: 0 mls/hr Documented By: Admin: 10/03/21 20:04 Dose: 999 mls/hr Documented By: VALE Magnesium Sulfate/Dextrose (Magnesium Sulfate / D5w) 1 gm in 100 mls @ 100 mls/hr IV NOW STA Stop: 10/03/21 21:15 Last Admin: 10/03/21 20:48 Dose: 100 mls/hr Documented By: VALE Magnesium Oxide (Magnesium Oxide 400 Mg Tab) 400 mg PO ONE ONE Stop: 10/03/21 20:17 Last Admin: 10/03/21 20:48 Dose: 400 mg Documented By: VALE Imaging Data Radiologist's Impression: Chest X-Ray 10/03/21 19:32 SINGLE VIEW CHEST CLINICAL HISTORY: Change in mental status. Generalized weakness. FINDINGS: An AP, portable, upright chest radiograph is compared to study dated 09/20/2021. A 2-lead cardiac AICD and a left subclavian central venous infusion port are unchanged in position. The patient is status post midline sternotomy. The heart is enlarged noting atherosclerotic calcification of the thoracic aorta. The pulmonary vasculature is noncongested. Chronic interstitial thickening is similar to previous. The lungs and pleural spaces are clear. No pneumothorax is seen. The skeletal structures are osteopenic. The bony thorax is grossly intact. IMPRESSION: 1. Cardiomegaly and AICD without radiographic evidence of congestive failure. 2. No airspace consolidation or pleural effusion is identified. ACT 112: Negative or not required by law. Electronically signed by: Jose Rasmussen M.D. 10/03/2021 8:[address] 10/03/21 19:32 CT SCAN OF THE BRAIN WITHOUT IV CONTRAST CLINICAL HISTORY: Change in mental status. COMPARISON STUDY: CT of the brain dated 11/18/2017. TECHNIQUE: Unenhanced axial CT scan of the brain is performed from the vertex to the skull base. A dose lowering technique was utilized adhering to the principles of ALARA. CT DOSE: 773.57 mGy.cm FINDINGS: Brain parenchyma: There is age-related involutional change noting moderate subcortical and periventricular microangiopathic disease. There is no hemorrhage, mass effect, or evidence of acute territorial ischemia by CT criteria. Camilo-white matter differentiation is preserved. No extra-axial fluid collection is seen. Ventricles, sulci, cisterns: Prominent secondary to involutional change. Intracranial vasculature: There is atherosclerotic calcification of the cavernous carotid and vertebral arteries. Calvarium: Unremarkable. Sinuses and mastoids: Moderate mucosal thickening is noted in the right ma xillary antrum. The remaining visualized paranasal sinuses are clear. There is trace left mastoid effusion. The right mastoid air cells are well pneumatized. Cerumen is noted in the left external auditory canal. Orbits: The bony orbits are grossly intact. There are bilateral ocular lens implants. IMPRESSION: There is no hemorrhage, mass effect, or evidence of acute territorial ischemia by CT criteria. ACT 112: Negative or not required by law. Electronically signed by: Jose Rasmussen M.D. 10/03/2021 8:06 PM Discharge Plan Visit Data Chief Complaint: Confusion Stated Complaint: INCREASE IN CONFUSION OVER PAST FEW DAYS ED Provider: Jose Eduardo Emeyr Discharge Problem: TIA (transient ischemic attack), AMS (altered mental status), Hypocalcemia, Hypomagnesemia Patient Disposition: Being Evaluated by Hospitalist Forms Stand Alone Forms: My [facility] Prescriptions Prescriptions: No Action Enbrel SureClick 50 mg/mL (0.98 mL) Pen Injector 1 dose subcut WK Rx Instructions: TAKES ON . furosemide [Lasix] 80 mg Tablet 80 mg PO QAM Tresiba FlexTouch U-200 200 unit/mL (3 mL) Insulin Pen 130 unit SUBCUT QAM atorvastatin 80 mg Tablet 80 mg PO QPM nitroglycerin [Nitrostat] 0.4 mg Tablet, Sublingual 0.4 mg Sublingual UD PRN (Reason: Chest Pain) Rx Instructions: ONE TABLET UNDER THE TONGUE EVERY 5 MINUTES UP TO 3 DOSES. fluticasone propionate [Flonase Allergy Relief] 50 mcg/actuation [place],Suspension 2 spray INTRANASAL DAILY Rx Instructions: EACH NOSTRIL omeprazole 20 mg Tablet,Delayed Release (Dr/Ec) 20 mg PO BID Qty: 60 1RF aspirin [Beba Low Dose Aspirin] 81 mg Tablet,Delayed Release (Dr/Ec) 81 mg PO DAILY Label Comments: QAM folic acid 1 mg tablet 1 mg PO DAILY allopurinol 300 mg tablet 300 mg PO DAILY Label Comments: QAM insulin aspart U-100 [Novolog Flexpen U-100 Insulin] 100 unit/mL (3 mL) insulin pen 0 unit SUBCUT TIDM Label Comments: patient states he took 40 units total yesterday. Rx Instructions: plus sliding scale PER PT "TAKES 45 UNITS QAM & AT 1600, THEN IF BSG >250 TAKES 25 UNITS AT HS". Victoza 3-Kei 0.6 mg/0.1 mL (18 mg/3 mL) pen injector 1.8 mg SUBCUT QAM isosorbide mononitrate 30 mg Tablet Extended Release 24 Hr 30 mg PO QAM 30 Days Qty: 30 2RF Probiotic 10 billion cell Capsule 10,000 mmu cells PO DAILY tamsulosin 0.4 mg capsule 0.4 mg PO DAILY Rx Instructions: PER PT "TOOK A SECOND DOSE THIS AFTERNOON, D/T UNABLE TO VOID".09/20/21 octreotide acetate 50 mcg/mL solution 50 mcg subcut BID triamcinolone acetonide 0.1 % Ointment 1 applic TOPICAL BID PRN (Reason: Skin Irritation) losartan 25 mg tablet 25 mg PO QAM betamethasone dipropionate 0.05 % Cream 1 applic TOPICAL BID PRN (Reason: ECZEMA FLARE UPS) albuterol sulfate [ProAir HFA] 90 mcg/actuation Hfa Aerosol Inhaler 2 puff INHALATION Q4H PRN (Reason: COUGH/SHORTNESS OF BREATH) sertraline 50 mg tablet 50 mg PO QAM Referrals Referrals: Nicola Prado MD [Primary Care Provider] -
[2021-10-03] MEDS ORDERED: SODIUM CHLORIDE 0.9% 500 ML IV SCH (19:45)
[2021-10-03 19:50] LABS: Basophils # (auto) 0.06 K/uL (0-0.2); Basophils % (auto) 0.5 %; Eosinophils # (auto) 0.45 K/uL (0-0.50); Hematocrit (blood only) 31.2 % (40.1-51.0); Hemoglobin 9.6 g/dl (14.0-18.0); Immature Granulocytes # (auto) 0.05 K/uL (0.00-0.02); Immature Granulocytes % (auto) 0.4 %; Mean Corpuscular Hemoglobin 29.1 pg (25.0-34.0); Mean Corpuscular Hgb Conc 30.8 g/dL (32.0-36.0); Mean Corpuscular Volume 94.5 fL (80.0-100.0); Mean Platelet Volume 9.3 fL (9.4-12.4); Monocytes # (auto) 0.39 K/uL (0.24-0.82); Monocytes % (auto) 3.5 %; Neutrophils # (auto) 9.19 K/uL (1.4-6.5); Neutrophils % (auto) 82.6 %; Platelet Count 235 K/uL (130-400); RDW Standard Deviation 58.5 fL (36.4-46.3); White Blood Count 11.14 K/ul (4.8-10.8)
--- NOTE | 2021-10-03 20:08 | CT Scan Report ---
CT SCAN OF THE BRAIN WITHOUT IV CONTRAST CLINICAL HISTORY: Change in mental status. COMPARISON STUDY: CT of the brain dated 11/18/2017. TECHNIQUE: Unenhanced axial CT scan of the brain is performed from the vertex to the skull base. A do se lowering technique was utilized adhering to the principles of ALARA. CT DOSE: 773.57 mGy.cm FINDINGS: Brain parenchyma: There is age-related involutional change noting moderate subcortical and periventri cular microangiopathic disease. There is no hemorrhage, mass effect, or evidence of acute territorial ischemia by CT criteria. [place]-white matter differentiation is preserved. No extra-axial fluid collec tion is seen. Ventricles, sulci, cisterns: Prominent secondary to involutional change. Intracranial vasculature: There is atherosclerotic calcification of the cavernous carotid and vertebr al arteries. Calvarium: Unremarkable. Sinuses and mastoids: Moderate mucosal thickening is noted in the right maxillary antrum. The remaini ng visualized paranasal sinuses are clear. There is trace left mastoid effusion. The right mastoid ai r cells are well pneumatized. Cerumen is noted in the left external auditory canal. Orbits: The bony orbits are grossly intact. There are bilateral ocular lens implants. IMPRESSION: There is no hemorrhage, mass effect, or evidence of acute territorial ischemia by CT debra olson. ACT 112: Negative or not required by law. Electronically signed by: Jose Rasmussen M.D. 10/03/2021 8:06 PM
--- NOTE | 2021-10-03 20:08 | XRay Report ---
SINGLE VIEW CHEST CLINICAL HISTORY: Change in mental status. Generalized weakness. FINDINGS: An AP, portable, upright chest radiograph is compared to study dated 09/20/2021. A 2-lead car diac AICD and a left subclavian central venous infusion port are unchanged in position. The patient i s status post midline sternotomy. The heart is enlarged noting atherosclerotic calcification of the t horacic aorta. The pulmonary vasculature is noncongested. Chronic interstitial thickening is similar to previous. The lungs and pleural spaces are clear. No pneumothorax is seen. The skeletal structures are osteopenic. The bony thorax is grossly intact. IMPRESSION: 1. Cardiomegaly and AICD without radiographic evidence of congestive failure. 2. No airspace consolidation or pleural effusion is identified. ACT 112: Negative or not required by law. Electronically signed by: Jose Rasmussen M.D. 10/03/2021 8:07 PM
[2021-10-03 20:13] LABS: Albumin Globulin Ratio 1.1 (0.9-2); Albumin Level 3.1 gm/dl (3.4-5.0); BUN Creatinine Ratio 20.9 (10-20); Bilirubin,Total 0.7 mg/dl (0.2-1.0); Calcium 6.9 mg/dl (8.5-10.1); Creatinine Clr Calc Pharmacy 50.8 ml/min; Est GFR (African American) 55.5 ml/min; Est GFR (Non-African American) 47.9 ml/min; Globulin 2.7 gm/dl (2.5-4.0); Magnesium 1.6 mg/dl (1.7-2.4); Potassium 3.5 mmol/L (3.5-5.1); Total Protein 5.8 gm/dl (6.0-8.3)
[2021-10-03] MEDS ORDERED: MAGNESIUM OXIDE 400 MG TAB PO ONE (20:16)
[2021-10-03] MEDS ORDERED: MAGNESIUM SULFATE / D5W 1 GM/100 ML BAG IV STA (20:16)
[2021-10-03 20:17] LABS: Troponin I High Sensitivity 11.3 pg/ml (0-20)
[2021-10-03 21:17] LABS: Partial Thromboplastin Ratio 1.1; Partial Thromboplastin Time 31.3 Seconds (21.0-31.0); Prothrombin Time 10.9 Seconds (9.0-12.0)
[2021-10-03 22:14] LABS: Appearance Urine Clear (Clear); Bacteria Urine Automated Negative (Negative); Bilirubin Urine Negative (Negative); Blood Urine Trace (Negative); Color Urine Yellow; Glucose Urine UA Negative (Negative); Ketones Urine Negative (Negative); Leukocyte Esterase Urine 1+ (Negative); Nitrite Urine Negative (Negative); Protein Urine 2+ (Negative); RBC Urine Automated 0-4 /hpf (0-4); Specific Gravity Urine 1.008 (1.000-1.030); Urobilinogen Urine Negative (Negative)
[2021-10-04] MEDS: SODIUM CHLORIDE 0.9% 1000ML 1,000 ML IV SCH ×2 (00:10→12:43)
[2021-10-04] MEDS ORDERED: STAT IV STA (00:14)
[2021-10-04] MEDS ORDERED: CALCIUM GLUCONATE 10% 1,000 MG in DEXTROSE 5% 50 ML IV ONE (00:30)
[2021-10-04] MEDS ORDERED: ACETAMINOPHEN 325 MG TAB PO PRN (00:34)
[2021-10-04] MEDS ORDERED: PHARMACIST DISCHARGE MED REC CONSULT PRN (00:34)
[2021-10-04] MEDS ORDERED: NITROGLYCERIN SL 0.4 MG/TAB TAB SL PRN (00:34)
[2021-10-04] MEDS ORDERED: THIAMINE HCL 500 MG in SODIUM CHLORIDE 0.9% 50 ML IV STA (00:34)
[2021-10-04] MEDS ORDERED: ONDANSETRON INJ 2 MG/ML 2 ML VIAL IV PRN (00:34)
[2021-10-04] MEDS ORDERED: ALBUTEROL HFA 8 GM INHALER INH PRN (00:34)
[2021-10-04] MEDS ORDERED: GLUCOSE 10 TAB/TUBE PO PRN (01:45)
[2021-10-04] MEDS ORDERED: GLUCAGON FOR INJ 1 MG VIAL IM PRN (01:45)
[2021-10-04] MEDS ORDERED: DEXTROSE 50% 50 ML SYRINGE IV PRN (01:45)
[2021-10-04] MEDS ORDERED: GLUCOSE 40% GEL 15 GM TUBE PO PRN (01:45)
[2021-10-04] MEDS ORDERED: CARBOHYDRATES FOR HYPOGLYCEMIA PO PRN (01:45)
--- NOTE | 2021-10-04 05:14 | History and Physical Report ---
DATE OF ADMISSION: 10/03/2021. CHIEF COMPLAINT: Confusion, transient amnesia. HISTORY OF PRESENT ILLNESS: This is a 81-year-old male with past medical history significant for type 2 diabetes, chronic kidney disease stage IV, chronic respiratory failure with hypoxia, COPD, obstructive sleep apnea, hyperlipidemia, pulmonary hypertension, chronic diastolic CHF, history of CAD s/p stent, s/p CABG, history of Mobitz type I Wenckebach block, morbid obesity, Henning's esophagus, vitamin B12 deficiency, BPH, generalized osteoarthritis, chronic pain of right hip, iron deficiency anemia due to chronic blood loss, anemia of chronic kidney disease, psoriasis, psoriatic arthropathy, polyarticular psoriatic arthropathy, status post cardiac pacemaker, prostate cancer status post seed implantation, patient is getting iron infusions every 2 weeks. He is also getting PRBC transfusions for his anemia. Patient says recently treated for C. diff, finished a 10-day course of p.o. vancomycin last . Today after mowing his grass, he was confused around 4 p.m. for about hour, he was worried about his blood sugars running low because of his C. diff. He did not even know how to check the blood sugars. Family thought he may be having some word finding difficulty. The patient does not remember anything for about a hour and he was brought in here. Currently back to his normal self. His initial CT scan is okay. The patient says again since yesterday, he is having some diarrhea today he had 6 episodes of diarrhea, loose, watery. Denies any fever or chills. Has some lower abdominal pain from his C. diff. He is having neck pain and headache. He has had chronic blurred visions, no runny nose, no sore throat, no cough, no difficulty swallowing. Appetite is down since C. diff .Says had brief episode of chest pain at one spot , but it is resolved. He is always short of breath from his anemia. No nausea or vomiting. Currently, resting comfortably and hemodynamically stable. He is worried that his octreotide shots are causing his symptoms. He is on octreotide shots to prevent AVM bleed. ALLERGIES: METHYLPREDNISOLONE, DILAUDID, PREDNISONE. PAST MEDICAL HISTORY: As mentioned above. PAST SURGICAL HISTORY: Brachytherapy, left heart catheterization, CABG, colonoscopy with biopsy, colonoscopy with lesion removal, common right and left heart catheterization, EGD, EGD with biopsy, dual chamber pacemaker, needle punch biopsy of the prostate, small bowel endoscopy with biopsy, video capsule endoscopy. MEDICATIONS: The patient is on albuterol 2 puffs inhalation q. 4 hours p.r.n., allopurinol 300 mg p.o. daily, aspirin 81 mg p.o. daily, atorvastatin 80 mg p.o. p.m., betamethasone topical b.i.d. p.r.n., Enbrel one dose subcutaneous weekly, Flonase 2 sprays intranasal daily, folic acid 1 mg p.o. daily, Lasix 80 mg p.o. a.m., NovoLog FlexPen t.i.d. sliding scale, isosorbide mononitrate 30 mg p.o. a.m., losartan 25 mg p.o. a.m., nitroglycerin 0.4 mg sublingual p.r.n., octreotide acetate 50 mcg subcutaneous b.i.d., omeprazole 20 mg p.o. b.i.d., probiotic daily, sertraline 50 mg p.o. daily, Flomax 0.4 mg p.o. daily, Tresiba FlexTouch 130 units subcutaneous a.m., Victoza 1.8 mg subcutaneous a.m. FAMILY HISTORY: Significant for son has arthritis; brother has asthma, NE. Mother has NE, mental disorder. Father has lung disorder. SOCIAL HISTORY: , former smoker, quit in 1997, smoked 2 packs a day for 10 years. No alcohol use. No drug use. REVIEW OF SYSTEMS: As per HPI. Rest of the review of systems is negative. PHYSICAL EXAMINATION: GENERAL: The patient is morbidly obese, currently not in acute distress. VITAL SIGNS: Temperature 36.9, pulse 90, respiratory rate 20, blood pressure 160/66, oxygen 98% on room air. HEENT: Pupils equal, round and reactive to light. Oral mucosa moist. NECK: No JVD, no neck masses. CARDIOVASCULAR: S1 and S2 heard. Regular rate and rhythm. No murmur, no gallop. RESPIRATORY SYSTEM: Normal AP diameter. No accessory muscle use. No wheezing, no crackles. ABDOMEN: Soft, bowel sounds present, nontender, no distention. CENTRAL NERVOUS SYSTEM: Cranial nerves II through XII are grossly intact, alert and oriented. Speech is clear. No facial droop. Insight is good. Obeys commands. Moves extremities. EXTREMITIES: No edema, no erythema. LABORATORY DATA: WBC 11.1, hemoglobin 9.6, hematocrit 31.2, platelets 235. PT 10.9, INR 1, APTT 31.3. Sodium 139, potassium 3.5, chloride 109, CO2 of 24, BUN 29, creatinine 1.39, serum glucose 95, calcium 6.9, magnesium 1.6, total bilirubin 0.7, AST 20, ALT 15, alkaline phosphatase 94. Troponin-I high sensitivity 11.3. TSH is 1.4. Urinalysis, +1 leukocyte esterase, bacteria negative. SARS-CoV-2 rapid test negative. IMAGING DATA: CT of the head, no hemorrhage, mass effect or evidence of acute territorial ischemia by CT criteria. Chest x-ray: Cardiomegaly and AICD without evidence of CHF. No airspace consolidation or pleural effusion. EKG: AV dual paced rhythm at a rate of 85. ASSESSMENT AND PLAN: This 81-year-old male, presents with multiple medical problems presents with transient amnesia and confusion. 1. Transient amnesia and confusion. CT of the head is unremarkable. Could not do MRI scan to rule out cerebrovascular accident because of his AICD, possible transient ischemic attack, currently back to his baseline. Could be from questionable hypoglycemic episode or dehydration, because he has diarrhea 6 times today. We will give gentle fluids. Follow stroke protocol neuro checks, echocardiogram and carotid ultrasound and Neurology evaluation in the a.m. PT/OT, speech evaluation and closely monitor in tele floor. Will also give a dose of IV thiamine. Further recommendations as per Neurology. 2. Recent Clostridium difficile, diarrhea symptoms are coming back. Questionable recurrent Clostridium difficile. We will follow stool for Clostridium difficile and await GI input. 3. History of iron deficiency anemia and history of anemia of chronic kidney disease. GI started him on octreotide for arteriovenous malformations. He gets frequent PRBC transfusion also every other week IV iron infusions. His hemoglobin is stable at 9.6. Await GI input. 4. Hypomagnesemia and hypocalcemia We will replace. Follow vitamin D levels. We will place him on calcium supplements. 5. Possible urinary tract infection. We will follow the cultures. 6. Diabetes. Continue his home Tresiba, placed on insulin sliding scale. Follow HbA1c level. Follow the blood sugars. 7. Obstructive sleep apnea. On CPAP at bedtime. 8. Diastolic congestive heart failure, holding the Lasix. Getting gentle fluids, monitor for volume overload. Continue losartan.Restart Lasix soon 9. Chronic kidney disease stage IV, creatinine is 1.39. We will follow the repeat labs. . 10. Psoriatic arthritis, on Enbrel subQ weekly. Follow up with Dermatology. 11. History of prostate cancer. Follows with Oncology and Urology as per patient. 12. History of coronary artery disease, status post coronary artery bypass grafting, status post stents. Continue statin, aspirin, isosorbide mononitrate, losartan, currently stable. 13. History of depression. Continue Zoloft. 14. History of benign prostatic hyperplasia. Continue Flomax. 15. History of gastroesophageal reflux disease. Continue omeprazole. 16. History of gout. Continue allopurinol. 17. Deep venous thrombosis prophylaxis. Lovenox. DISPOSITION: Closely monitor in the tele floor. Level 1 full code. PT/OT prior to discharge. Social service to help with discharge planning. Job ID: [id number] [facility] HOSPITALVeronica
[2021-10-04 06:11] LABS: Basophils # (auto) 0.06 K/uL (0-0.2); Basophils % (auto) 0.7 %; Eosinophils # (auto) 0.49 K/uL (0-0.50); Eosinophils % (auto) 5.7 %; Hematocrit (blood only) 31.8 % (40.1-51.0); Immature Granulocytes # (auto) 0.03 K/uL (0.00-0.02); Immature Granulocytes % (auto) 0.3 %; Lymphocytes # (auto) 1.05 K/uL (1.2-3.4); Lymphocytes % (auto) 12.2 %; Mean Corpuscular Hemoglobin 29.2 pg (25.0-34.0); Mean Corpuscular Hgb Conc 31.4 g/dL (32.0-36.0); Mean Platelet Volume 9.3 fL (9.4-12.4); Monocytes # (auto) 0.39 K/uL (0.24-0.82); Monocytes % (auto) 4.5 %; Neutrophils # (auto) 6.58 K/uL (1.4-6.5); Neutrophils % (auto) 76.6 %; Platelet Count 222 K/uL (130-400); RDW Standard Deviation 58.4 fL (36.4-46.3); Red Blood Count 3.42 M/uL (4.63-6.08)
[2021-10-04 06:33] LABS: BUN Creatinine Ratio 22.5 (10-20); Calcium 8.4 mg/dl (8.5-10.1); Chol HDL Ratio 4.8 (0-5); Creatinine Clr Calc Pharmacy 41.7 ml/min; Est GFR (African American) 43.8 ml/min; Est GFR (Non-African American) 37.8 ml/min; Magnesium 2.2 mg/dl (1.7-2.4); Potassium 3.7 mmol/L (3.5-5.1)
[2021-10-04] MEDS: FLUTICASONE PROPIONATE NA SPR 16 GM BTL NAE SCH (07:50)
[2021-10-04] MEDS: allopurinoL 300 MG TAB PO SCH (07:51)
[2021-10-04] MEDS: ISOSORBIDE MONO EXTENDED REL 30 MG TABCR PO SCH (07:51)
[2021-10-04] MEDS: SERTRALINE HCL 50 MG TABLET PO SCH (07:51)
[2021-10-04] MEDS: TAMSULOSIN HCL 0.4 MG CAP PO SCH (07:51)
[2021-10-04] MEDS: CALCIUM 600MG + VIT D 400 IU TAB PO SCH ×2 (07:51→21:38)
[2021-10-04] MEDS: ADVANCED PROBIOTIC 1250 MG CAPSULE PO SCH (07:51)
[2021-10-04] MEDS: PANTOprazole 40 MG TAB PO SCH ×2 (07:51→21:37)
[2021-10-04] MEDS: LOSARTAN POTASSIUM 25 MG TAB PO SCH (07:51)
[2021-10-04] MEDS: ASPIRIN 81 MG ECTAB PO SCH (07:52)
[2021-10-04] MEDS: ENOXAPARIN INJ 40 MG/0.4 ML SYR SQ SCH ×2 (07:52→21:38)
[2021-10-04] MEDS: FOLIC ACID 1 MG TAB PO SCH (07:52)
[2021-10-04] MEDS: OCTREOTIDE ACETATE 100 MCG/ML VIAL SQ SCH ×2 (08:04→21:36)
[2021-10-04] MEDS: INSULIN ASPART PER UNIT SC SCH ×4 (08:05→21:06)
[2021-10-04] MEDS: LANTUS PER UNIT CHARGE SQ SCH (08:05)
--- NOTE | 2021-10-04 10:56 | Hospitalist Progress Note ---
Date of Service October 04, 2021 Assessment & Plan (1) AMS (altered mental status): (2) C. difficile diarrhea: (3) Vitamin D deficiency: (4) Hypocalcemia: (5) Hypomagnesemia: (6) Morbid obesity: (7) CKD (chronic kidney disease) stage 4, GFR 15-29 ml/min: Plan This 81-year-old male, presents with multiple medical problems presents with transient amnesia and confusion. 1) Altered mental status, resolved 2) Recent C.difficile infection Patient presented with episode of altered mental status and confusion which resolved at presentation to the hospital. Recent C. difficile infection; 6 episode of bowel movement prior to presentation. He was hypocalcemic and hypomagnesemic WBC count down trended from 11.1-8.6. CT head with no acute findings EchoEF of 55 to 60%, aortic valve sclerosis moderate without significant aortic valvular stenosis. Plan; His episode is likely related to electrolyte disturbances secondary to diarrhea. -Will check C. difficile again for recurrence. -Start empiric oral vancomycin right now with plan to taper if recurrence is confirmed -PT OT evaluation 3) Hypomagnesemia-repleted 4) Hypocalcemia repleted 5) Vitamin D deficiency-started on 5000 units/day 6. Diabetes. Continue his home Tresiba, placed on insulin sliding scale. Follow the blood sugars. 7. Obstructive sleep apnea. On CPAP at bedtime. 8. Diastolic congestive heart failure, holding the Lasix. Getting gentle fluids, monitor for volume overload. Continue losartan. 9. Chronic kidney disease stage IV, creatinine is 1.39. We will follow the repeat labs. . 10. Psoriatic arthritis, on Enbrel subQ weekly. Follow up with Dermatology. 11. History of prostate cancer. Follows with Oncology and Urology as per patient. 12. History of coronary artery disease, status post coronary artery bypass grafting, status post stents. Continue statin, aspirin, isosorbide mononitrate, losartan, currently stable. 13. History of depression. Continue Zoloft. 14. History of benign prostatic hyperplasia. Continue Flomax. 15. History of gastroesophageal reflux disease. Continue omeprazole. 16. History of gout. Continue allopurinol. 17. Deep venous thrombosis prophylaxis. Lovenox. Diet- heart healthy DVT ppx- lovenox code- full code Admission and Anticipated Discharge Date Admission Date: October 03, 2021 Subjective Patient seen and examined at bedside. He is currently sitting up on the bed. He has 2 episode of loose bowel movement this morning. He elaborates further that he had 6 bowel movements yesterday before the episode of altered mental status. He was just finished course of oral vancomycin for C. difficile infection. He denies headache, weakness/numbness of any body part or abdominal body movement. Review of Systems Review of Systems: All systems reviewed & are unremarkable except as noted in Subjective Physical Exam Physical Exam: Constitutional: Awake, alert orient x3. Not in any acute distress Head: Normocephalic, Atraumatic Eyes: PERRL, conjunctivae normal, anicteric sclerae ENMT: external ear and nose normal, oropharynx normal Neck: trachea midline, no thyromegaly normal visual inspection Respiratory: normal respiratory effort, lungs clear to auscultation, no wheeze, rales, rhonchi. Normal insp/exp effort, no accessory muscle use Cardiovascular: RRR, no murmur, no edema Vessels: no JVD or carotid bruit Chest: normal inspection of chest. Normal vessel breath sound Abdomen: normal bowel sounds, soft, nontender, no hepatosplenomegaly Musculoskeletal: no cyanosis or clubbing, extremities motor strength 5/5 Skin: no rashes, warm and dry normal turgor Neurologic: PERRL, EOMI, accommodation nl, no face palsy, no dysarthria CN's II- XI intact bilaterally and moves all extremities Psychiatric: A+Ox3, euthymic affect Lymphatic: no cervical or axillary lymphadenopathy : deferred Results & Data Results & Data ([facility]) Vital Signs (Past 12 Hours) Vital Signs Temp Pulse Pulse Resp BP Pulse Ox Pulse Ox 10/04/21 09:01 61 10/04/21 09:01 10/04/21 07:44 36.7 C 75 20 117/56 L 94 10/04/21 04:56 36.6 C 61 16 128/62 97 10/04/21 02:46 72 10/04/21 03:43 72 19 99 10/04/21 02:14 36.8 C 67 16 146/64 H 96 10/04/21 01:16 67 16 147/64 H 98 10/04/21 01:15 68 16 146/64 H 98 10/04/21 01:14 98 10/04/21 01:03 72 20 99 O2 Del Method O2 Del Method O2 Flow Rate 10/04/21 09:01 10/04/21 09:01 Room Air, BiPAP 10/04/21 07:44 Room Air 10/04/21 04:56 BiPAP 10/04/21 02:46 10/04/21 03:43 2 10/04/21 02:14 Room Air 10/04/21 01:16 Room Air 10/04/21 01:15 Room Air 10/04/21 01:14 CPAP 10/04/21 01:03 2 COVID-19 Results Results COVID-19 Adm Lab Results: RBC 3.42 M/uL (4.63-6.08) L 10/04/21 WBC 8.60 K/ul (4.8-10.8) 10/04/21 Hgb 10.0 g/dl (14.0-18.0) L 10/04/21 Hct 31.8 % (40.1-51.0) L 10/04/21 Plt Count 222 K/uL (130-400) 10/04/21 Neutrophils (%) (Auto) 76.6 % 10/04/21 Lymphocytes (%) (Auto) 12.2 % 10/04/21 Monocytes # (Auto) 0.39 K/uL (0.24-0.82) 10/04/21 Eosinophils # (Auto) 0.49 K/uL (0-0.50) 10/04/21 Immature Granulocyte % (Auto) 0.3 % 10/04/21 Neutrophils # (Auto) 6.58 K/uL (1.4-6.5) H 10/04/21 Lymphocytes # (Auto) 1.05 K/uL (1.2-3.4) L 10/04/21 Monocytes # (Auto) 0.39 K/uL (0.24-0.82) 10/04/21 Eosinophils # (Auto) 0.49 K/uL (0-0.50) 10/04/21 Basophils # (Auto) 0.06 K/uL (0-0.2) 10/04/21 Immature Granulocyte # (Auto) 0.03 K/uL (0.00-0.02) H 10/04 Na 136 mmol/L (136-145) 10/04/21 K 3.7 mmol/L (3.5-5.1) 10/04/21 Cl 104 mmol/L (98-107) 10/04/21 CO2 27 mmol/L (21-32) 10/04/21 Anion Gap 5 (3-11) 10/04/21 BUN 38 mg/dl (6-23) H 10/04/21 Creatinine 1.69 mg/dl (0.6-1.4) H 10/04/21 BUN/Creatinine Ratio 22.5 (10-20) H 10/04/21 Glucose Level 123 mg/dl (70-99(Fasting)) H 10/04/21 Ca 8.4 mg/dl (8.5-10.1) L 10/04/21 Total Bilirubin 0.7 mg/dl (0.2-1.0) 10/03/21 AST/SGOT 20 U/L (13-39) 10/03/21 ALT/SGPT 15 U/L (7-52) 10/03/21 Alkaline Phosphatase 94 U/L (34-104) 10/03/21 Total Protein 5.8 gm/dl (6.0-8.3) L 10/03/21 Albumin 3.1 gm/dl (3.4-5.0) L 10/03/21 Globulin 2.7 gm/dl (2.5-4.0) 10/03/21 Albumin/Globulin Ratio 1.1 (0.9-2) 10/03/21 PTT 31.3 Seconds (21.0-31.0) H 10/03/21 INR 1.0 (0.9-1.1) 10/03/21 Triglycerides Level 176 mg/dl (0-150) H 10/04/21 SARS-CoV-2, RNA, NAAT NEGATIVE (NEGATIVE) 10/03/21 Chest X-Ray 10/03/21 (1) AMS (altered mental status) Altered mental status type: unspecified Qualified Code(s): R41.82 - Altered mental status, unspecified
--- NOTE | 2021-10-04 11:33 | Ultrasound Report ---
BILATERAL CAROTID DOPPLER STUDY HISTORY: Altered mental status. cva? COMPARISON: Carotid Doppler 10/25/2016. TECHNIQUE: Real-time, grayscale, and color Doppler sonography of the carotid arteries was performed. Imaging reviewed in the transverse and longitudinal planes. All measurements were calculated based on NASCET criteria. FINDINGS: Antegrade flow is seen in the bilateral vertebral arteries. Mild scattered calcified plaque again not ed. The peak systolic velocity within the right ICA is 79 cm/s. The right systolic ratio is 1.3. The peak systolic velocity within the left ICA is 59 cm/s. The left systolic ratio is 1.0. Bilateral external carotid artery stenosis again noted IMPRESSION: No hemodynamically significant stenosis seen within the bilateral common or internal carotid arteries . ACT 112: Negative or not required by law. Electronically signed by: Josue Mahoney M.D. 10/04/2021 11:32 AM
[2021-10-04] MEDS: CHOLECALCIFEROL 5,000 UNITS 125 MCG TAB PO SCH (11:38)
[2021-10-04] MEDS: RASPBERRY SYRUP 5 ML UDP PO SCH ×3 (11:38→23:20)
[2021-10-04] MEDS: VANCOMYCIN HCL 250 MG/5 ML SOLN PO SCH ×3 (11:38→23:21)
--- NOTE | 2021-10-04 13:47 | Neurology Consultation ---
Date of Consultation October 04, 2021 Assessment & Plan (1) AMS (altered mental status): (2) C. difficile diarrhea: (3) Pacemaker: (4) Chronic kidney disease: Plan ASSESSMENT AND PLAN: 1. Short lasting altered mental status with word finding difficulty Impression: This is most likely due to dehydration and temporary encephalopathy. Transient ischemic attack and transient global amnesia are in differential but less likely. Plan: We will keep the patient on aspirin and Lipitor as before. Goal LDL level is lower than 70. If the patient continue having similar episodes, then we will consider outpatient EEG as part of transient global amnesia work-up. Good hydration, management of metabolic derangements and infections. The patient is neurologically stable to discharge home. Follow-up with neurology clinic in a month or as needed. Thank you for the consultation. History of Present Illness Reason for Consultation: AMS, word finding difficulty Requesting Physician: Harsh Peterson Attending Physician: Alex Dennis MD History of Present Illness The patient is a 81-year-old pleasant gentleman, who had an episode of altered mental status with word finding difficulty yesterday afternoon, and was brought to emergency department and was admitted for further evaluation. Apparently, the patient was recently treated for C. difficile colitis, and was still having frequent loose bowels movements. He was cutting grass yesterday, and after 1 hour being physically active, started feeling dizzy, diaphoretic, hot, and came inside, and family noticed that he was confused, disoriented, with some word finding difficulty. There was no other neurological symptoms including sensorimotor deficits, diplopia, facial asymmetry, and they checked a blood sugar, which was normal. After resting with hydration, the patient's symptoms resolved in 1 hour. In the emergency department, he was symptom-free, and was not considered a candidate for thrombolytic treatment. Head CT was unremarkable. The patient was not a candidate for MRI studies because of having pacemaker in place. He has multiple stroke risk factors. Echocardiogram was unremarkable. Carotid ultrasound did not show hemodynamically significant stenosis. Telemetry monitoring has been showing sinus rhythm. Since admission, the patient has been symptom-free. Urinalysis showed some evidence of urinary tract infection. Serum lipid panel showed low LDL level below 70. The patient denies having stroke symptoms in the past. He has chronic intermittent right lower extremity and right arm paresthesia, mostly secondary to certain position and activities. He was recently evaluated for low back pain and imaging was done recently. I have reviewed the patient's chart including imaging studies and visualized them personally. I have discussed the case with the patient answered his questions in detail. Allergies Allergy/AdvReac Type Severity Reaction Status Date / Time methylprednisolone AdvReac Severe AMS Verified 10/03/21 23:26 hydromorphone [From Dilaudid] AdvReac Intermediate Nausea Verified 10/03/21 23:26 prednisone AdvReac Intermediate INCREASE Verified 10/03/21 23:26 BLOOD SUGAR Home Medications Medication Instructions Recorded Confirmed Type atorvastatin 80 mg tablet 80 mg PO QPM 11/13/17 10/03/21 History fluticasone propionate 50 2 spray intranasal DAILY 11/13/17 10/03/21 History mcg/actuation nasal spray,suspension (Flonase Allergy Relief) insulin degludec 200 unit/mL (3 130 unit subcut QAM 11/13/17 10/03/21 History mL) subcutaneous pen (Tresiba FlexTouch U-200 insulin) nitroglycerin 0.4 mg sublingual 0.4 mg sublingual UD PRN Chest Pain 11/13/17 10/03/21 History tablet (Nitrostat) etanercept 50 mg/mL (1 mL) 1 dose subcut WK 04/10/18 10/03/21 History subcutaneous pen injector (Enbrel SureClick) furosemide 80 mg tablet (Lasix) 80 mg PO QAM 04/20/18 10/03/21 History omeprazole 20 mg tablet,delayed 20 mg PO BID #60 tabs 10/14/19 10/03/21 Rx release allopurinol 300 mg tablet 300 mg PO DAILY 06/09/20 10/03/21 History aspirin 81 mg tablet,delayed 81 mg PO DAILY 06/09/20 10/03/21 History release (Beba Low Dose Aspirin) folic acid 1 mg tablet 1 mg PO DAILY 06/09/20 10/03/21 History insulin aspart U-100 100 unit/mL 0 unit subcut TIDM 10/29/20 10/03/21 History (3 mL) subcutaneous pen (Novolog Flexpen U-100 Insulin aspart) liraglutide 0.6 mg/0.1 mL (18 mg/3 1.8 mg subcut QAM 10/29/20 10/03/21 History mL) subcutaneous pen injector (Victoza 3-Kei) isosorbide mononitrate 30 mg 30 mg PO QAM 30 days #30 tabs 12/16/20 10/03/21 Rx tablet,extended release 24 hr Lactobacillus acidophilus 10 10,000 mmu cells PO DAILY 05/19/21 10/03/21 History billion cell capsule (Probiotic) tamsulosin 0.4 mg capsule 0.4 mg PO DAILY 06/27/21 10/03/21 History albuterol sulfate 90 mcg/actuation 2 puff inhalation Q4H PRN 09/20/21 10/03/21 History aerosol inhaler (ProAir HFA) COUGH/SHORTNESS OF BREATH betamethasone dipropionate 0.05 % 1 applic topical BID PRN ECZEMA 09/20/21 10/03/21 History topical cream FLARE UPS losartan 25 mg tablet 25 mg PO QAM 09/20/21 10/03/21 History octreotide acetate 50 mcg/mL 50 mcg subcut BID 09/20/21 10/03/21 History injection solution sertraline 50 mg tablet 50 mg PO QAM 09/20/21 10/03/21 History triamcinolone acetonide 0.1 % 1 applic topical BID PRN Skin 09/20/21 10/03/21 History topical ointment Irritation Patient History Medical History Anemia IRON INFUSIONS EVERY OTHER WEEK Anemia of chronic disease CHF (congestive heart failure) Chronic diastolic CHF (congestive heart failure) Chronic GI bleeding Chronic obstructive pulmonary disease CKD (chronic kidney disease), stage IV Diabetes mellitus, type 2 Diverticular disease GERD (gastroesophageal reflux disease) GI bleed GI bleed History of colon polyps History of COVID-19 02/2021>NO SYMPTOMS *TESTED AT [facility] History of prostate cancer radiation seeds Hx of gout Hyperlipidemia Hypertension SNOW (iron deficiency anemia) IDDM (insulin dependent diabetes mellitus) Obesity On home oxygen therapy 2L N/C AT HS WITH CPAP Osteoarthritis Pacemaker Psoriasis Psoriatic arthritis Sleep apnea CPAP WITH O2 AT 2L Surgical History History of cardiac cath had 4 total--last 2015 @ [facility] History of colonoscopy History of esophagogastroduodenoscopy (EGD) History of heart artery stent x6 stents total History of prostate biopsy malignant History of tooth extraction S/P CABG x 3 2009 @ [facility] [place]---follows with Dr. Rolon Status post LASIK surgery of both eyes Family History Son Family history of diabetes mellitus Other No family history of adverse response to anesthesia Social History Smoking Status: Former smoker Tobacco Type: Cigarettes Second Hand Exposure: No; Hx Alcohol Use: No Hx Substance Use: No Preferred Language: Greek Communication Ability: Effective Compressor Operator Required: No Beliefs That Will Affect Care: None marital status: Current Living Situation: Spouse and Family Current Living Situation Comment: /[facility] [employer] [facility] How many Children do You have: 2 Other Information That Helps Us Care for You: No Feels Safe at Home: Yes Safety Concerns: Feels Safe At This Time Assistive Devices: Glasses, Oxygen - at Night, Walker and Wheelchair Review of Systems Review of Systems: All systems reviewed & are unremarkable except as noted in HPI & below Physical Exam Physical Exam: General Examination: Constitutional: Well developed overweight person in no acute distress. HENT: Normal exam with inspection. CV: Hearth rhtyhm is regular. Neck: Supple, no carotid bruits. Lungs: Non-labored and comfortable breathing. Abdomen: Soft, non-tender, non-distended. Skin: No rash or ecchymosis. Extremities: No edema or cyanosis NEUROLOGICAL EXAMINATION: Mental Status: Alert and oriented to place, person and time. Cranial Nerves: II-XII are intact. No nystagmus. Funduscopy: Normal looking optic discs. Motor: 5-/5 in all extremities without asymmetry. Tone: Normal without spasticity or rigidity. DTRs: 1+ in upper extremities, 1- in knees and trace in ankles. No Babinsky Sensory: Intact to all sensory modalities except decreased vibratory sensation in feet and right leg proximal paresthesia ( chronic) Coordination: No dysmetria with FTN testing. Speech: Fluent. Comprehension is intact. Gait: Normal. No ataxia or abnormal walking pattern. Musculoskeletal: Normal muscle bulk, no atrophy. Results & Data ([facility]) Vital Signs (Past 12 Hours) Vital Signs Temp Pulse Pulse Resp BP Pulse Ox O2 Del Method 10/04/21 12:04 36.5 C 77 16 144/83 H 99 Room Air 10/04/21 09:01 61 10/04/21 09:01 Room Air, BiPAP 10/04/21 07:44 36.7 C 75 20 117/56 L 94 Room Air 10/04/21 04:56 36.6 C 61 16 128/62 97 BiPAP 10/04/21 02:46 72 10/04/21 03:43 72 19 99 10/04/21 02:14 36.8 C 67 16 146/64 H 96 Room Air O2 Flow Rate 10/04/21 12:04 10/04/21 09:01 10/04/21 09:01 10/04/21 07:44 10/04/21 04:56 10/04/21 02:46 10/04/21 03:43 2 10/04/21 02:14 Laboratory Results Laboratory Results - last 24 hr 10/03/21 10/03/21 10/03/21 19:29 19:35 19:35 WBC 11.14 H RBC 3.30 L Hgb 9.6 L Hct 31.2 L MCV 94.5 MCH 29.1 MCHC 30.8 L RDW Std Deviation 58.5 H RDW Coeff of Joey 17.0 H Plt Count 235 MPV 9.3 L Immature Gran % (Auto) 0.4 Neut % (Auto) 82.6 Lymph % (Auto) 9.0 [place] % (Auto) 3.5 Eos % (Auto) 4.0 Baso % (Auto) 0.5 Neut # (Auto) 9.19 H Lymph # (Auto) 1.00 L [place] # (Auto) 0.39 Eos # (Auto) 0.45 Baso # (Auto) 0.06 Immature Gran # (Auto) 0.05 H PT Cancelled INR Cancelled APTT Cancelled PTT Ratio Cancelled Sodium Potassium Chloride Carbon Dioxide Anion Gap BUN Creatinine Est Cr Clr Drug Dosing Est GFR ( Amer) Est GFR (Non-Af Amer) BUN/Creatinine Ratio Glucose POC Glucose 116 H Estimat Average Glucose Hemoglobin A1c Calcium Magnesium Total Bilirubin AST ALT Alkaline Phosphatase Troponin I High Sens Total Protein Albumin Globulin Albumin/Globulin Ratio Triglycerides Cholesterol LDL Cholesterol, Calc VLDL Cholesterol, Calc HDL Cholesterol Cholesterol/HDL Ratio 25-OH Vitamin D Total TSH Urine Color Urine Appearance Urine pH Ur Specific [place] Urine Protein Urine Glucose (UA) Urine Ketones Urine Blood Urine Nitrite Urine Bilirubin Urine Urobilinogen Ur Leukocyte Esterase Urine WBC (Auto) Urine RBC (Auto) U Hyaline Cast (Auto) U Epithel Cells (Auto) Urine Bacteria (Auto) SARS-CoV-2, RNA, NAAT 10/03/21 10/03/21 10/03/21 19:35 19:35 20:35 WBC RBC Hgb Hct MCV MCH MCHC RDW Std Deviation RDW Coeff of Joey Plt Count MPV Immature Gran % (Auto) Neut % (Auto) Lymph % (Auto) [place] % (Auto) Eos % (Auto) Baso % (Auto) Neut # (Auto) Lymph # (Auto) [place] # (Auto) Eos # (Auto) Baso # (Auto) Immature Gran # (Auto) PT 10.9 INR 1.0 APTT 31.3 H PTT Ratio 1.1 Sodium 139 Potassium 3.5 Chloride 109 H Carbon Dioxide 24 Anion Gap 6 BUN 29 H Creatinine 1.39 Est Cr Clr Drug Dosing 50.8 Est GFR ( Amer) 55.5 Est GFR (Non-Af Amer) 47.9 BUN/Creatinine Ratio 20.9 H Glucose 95 POC Glucose Estimat Average Glucose Hemoglobin A1c Calcium 6.9 L Magnesium 1.6 L Total Bilirubin 0.7 AST 20 ALT 15 Alkaline Phosphatase 94 Troponin I High Sens 11.3 Total Protein 5.8 L Albumin 3.1 L Globulin 2.7 Albumin/Globulin Ratio 1.1 Triglycerides Cholesterol LDL Cholesterol, Calc VLDL Cholesterol, Calc HDL Cholesterol Cholesterol/HDL Ratio 25-OH Vitamin D Total TSH 1.492 Urine Color Urine Appearance Urine pH Ur Specific [place] Urine Protein Urine Glucose (UA) Urine Ketones Urine Blood Urine Nitrite Urine Bilirubin Urine Urobilinogen Ur Leukocyte Esterase Urine WBC (Auto) Urine RBC (Auto) U Hyaline Cast (Auto) U Epithel Cells (Auto) Urine Bacteria (Auto) SARS-CoV-2, RNA, NAAT 10/03/21 10/03/21 10/04/21 21:09 21:59 02:50 WBC RBC Hgb Hct MCV MCH MCHC RDW Std Deviation RDW Coeff of Joey Plt Count MPV Immature Gran % (Auto) Neut % (Auto) Lymph % (Auto) [place] % (Auto) Eos % (Auto) Baso % (Auto) Neut # (Auto) Lymph # (Auto) [place] # (Auto) Eos # (Auto) Baso # (Auto) Immature Gran # (Auto) PT INR APTT PTT Ratio Sodium Potassium Chloride Carbon Dioxide Anion Gap BUN Creatinine Est Cr Clr Drug Dosing Est GFR ( Amer) Est GFR (Non-Af Amer) BUN/Creatinine Ratio Glucose POC Glucose 116 H Estimat Average Glucose Hemoglobin A1c Calcium Magnesium Total Bilirubin AST ALT Alkaline Phosphatase Troponin I High Sens Total Protein Albumin Globulin Albumin/Globulin Ratio Triglycerides Cholesterol LDL Cholesterol, Calc VLDL Cholesterol, Calc HDL Cholesterol Cholesterol/HDL Ratio 25-OH Vitamin D Total TSH Urine Color Yellow Urine Appearance Clear Urine pH 6.0 Ur Specific [place] 1.008 Urine Protein 2+ H Urine Glucose (UA) Negative Urine Ketones Negative Urine Blood Trace H Urine Nitrite Negative Urine Bilirubin Negative Urine Urobilinogen Negative Ur Leukocyte Esterase 1+ H Urine WBC (Auto) 10-30 H Urine RBC (Auto) 0-4 U Hyaline Cast (Auto) 1-5 U Epithel Cells (Auto) 10-20 H Urine Bacteria (Auto) Negative SARS-CoV-2, RNA, NAAT NEGATIVE 10/04/21 10/04/21 10/04/21 05:33 05:33 05:33 WBC 8.60 RBC 3.42 L Hgb 10.0 L Hct 31.8 L MCV 93.0 MCH 29.2 MCHC 31.4 L RDW Std Deviation 58.4 H RDW Coeff of Joey 17.0 H Plt Count 222 MPV 9.3 L Immature Gran % (Auto) 0.3 Neut % (Auto) 76.6 Lymph % (Auto) 12.2 [place] % (Auto) 4.5 Eos % (Auto) 5.7 Baso % (Auto) 0.7 Neut # (Auto) 6.58 H Lymph # (Auto) 1.05 L [place] # (Auto) 0.39 Eos # (Auto) 0.49 Baso # (Auto) 0.06 Immature Gran # (Auto) 0.03 H PT INR APTT PTT Ratio Sodium 136 Potassium 3.7 Chloride 104 Carbon Dioxide 27 Anion Gap 5 BUN 38 H Creatinine 1.69 H D Est Cr Clr Drug Dosing 41.7 Est GFR ( Amer) 43.8 Est GFR (Non-Af Amer) 37.8 BUN/Creatinine Ratio 22.5 H Glucose 123 H POC Glucose Estimat Average Glucose Pending Hemoglobin A1c Pending Calcium 8.4 L Magnesium 2.2 Total Bilirubin AST ALT Alkaline Phosphatase Troponin I High Sens Total Protein Albumin Globulin Albumin/Globulin Ratio Triglycerides 176 H Cholesterol 105 LDL Cholesterol, Calc 48 VLDL Cholesterol, Calc 35 H HDL Cholesterol 22 Cholesterol/HDL Ratio 4.8 25-OH Vitamin D Total TSH Urine Color Urine Appearance Urine pH Ur Specific [place] Urine Protein Urine Glucose (UA) Urine Ketones Urine Blood Urine Nitrite Urine Bilirubin Urine Urobilinogen Ur Leukocyte Esterase Urine WBC (Auto) Urine RBC (Auto) U Hyaline Cast (Auto) U Epithel Cells (Auto) Urine Bacteria (Auto) SARS-CoV-2, RNA, NAAT 10/04/21 10/04/21 10/04/21 05:33 07:32 11:29 WBC RBC Hgb Hct MCV MCH MCHC RDW Std Deviation RDW Coeff of Joey Plt Count MPV Immature Gran % (Auto) Neut % (Auto) Lymph % (Auto) [place] % (Auto) Eos % (Auto) Baso % (Auto) Neut # (Auto) Lymph # (Auto) [place] # (Auto) Eos # (Auto) Baso # (Auto) Immature Gran # (Auto) PT INR APTT PTT Ratio Sodium Potassium Chloride Carbon Dioxide Anion Gap BUN Creatinine Est Cr Clr Drug Dosing Est GFR ( Amer) Est GFR (Non-Af Amer) BUN/Creatinine Ratio Glucose POC Glucose 124 H 89 Estimat Average Glucose Hemoglobin A1c Calcium Magnesium Total Bilirubin AST ALT Alkaline Phosphatase Troponin I High Sens Total Protein Albumin Globulin Albumin/Globulin Ratio Triglycerides Cholesterol LDL Cholesterol, Calc VLDL Cholesterol, Calc HDL Cholesterol Cholesterol/HDL Ratio 25-OH Vitamin D Total 14.5 L TSH Urine Color Urine Appearance Urine pH Ur Specific [place] Urine Protein Urine Glucose (UA) Urine Ketones Urine Blood Urine Nitrite Urine Bilirubin Urine Urobilinogen Ur Leukocyte Esterase Urine WBC (Auto) Urine RBC (Auto) U Hyaline Cast (Auto) U Epithel Cells (Auto) Urine Bacteria (Auto) SARS-CoV-2, RNA, NAAT Diagnostic Findings Chest X-Ray 10/03/21 19:32 SINGLE VIEW CHEST CLINICAL HISTORY: Change in mental status. Generalized weakness. FINDINGS: An AP, portable, upright chest radiograph is compared to study dated 09/20/2021. A 2-lead cardiac AICD and a left subclavian central venous infusion port are unchanged in position. The patient is status post midline sternotomy. The heart is enlarged noting atherosclerotic calcification of the thoracic aorta. The pulmonary vasculature is noncongested. Chronic interstitial thickening is similar to previous. The lungs and pleural spaces are clear. No pneumothorax is seen. The skeletal structures are osteopenic. The bony thorax is grossly intact. IMPRESSION: 1. Cardiomegaly and AICD without radiographic evidence of congestive failure. 2. No airspace consolidation or pleural effusion is identified. ACT 112: Negative or not required by law. Electronically signed by: Jose Rasmussen M.D. 10/03/2021 8:[address] 10/03/21 19:32 CT SCAN OF THE BRAIN WITHOUT IV CONTRAST CLINICAL HISTORY: Change in mental status. COMPARISON STUDY: CT of the brain dated 11/18/2017. TECHNIQUE: Unenhanced axial CT scan of the brain is performed from the vertex to the skull base. A dose lowering technique was utilized adhering to the principles of ALARA. CT DOSE: 773.57 mGy.cm FINDINGS: Brain parenchyma: There is age-related involutional change noting moderate subcortical and periventricular microangiopathic disease. There is no hemorrhage, mass effect, or evidence of acute territorial ischemia by CT criteria. Camilo-white matter differentiation is preserved. No extra-axial fluid collection is seen. Ventricles, sulci, cisterns: Prominent secondary to involutional change. Intracranial vasculature: There is atherosclerotic calcification of the cavernous carotid and vertebral arteries. Calvarium: Unremarkable. Sinuses and mastoids: Moderate mucosal thickening is noted in the right maxillary antrum. The remaining visualized paranasal sinuses are clear. There is trace left mastoid effusion. The right mastoid air cells are well pneumatized. Cerumen is noted in the left external auditory canal. Orbits: The bony orbits are grossly intact. There are bilateral ocular lens implants. IMPRESSION: There is no hemorrhage, mass effect, or evidence of acute territorial ischemia by CT criteria. ACT 112: Negative or not required by law. Electronically signed by: Jose Rasmussen M.D. 10/03/2021 8:06 PM Carotid Doppler Study 10/04/21 00:34 BILATERAL CAROTID DOPPLER STUDY HISTORY: Altered mental status. cva? COMPARISON: Carotid Doppler 10/25/2016. TECHNIQUE: Real-time, grayscale, and color Doppler sonography of the carotid arteries was performed. Imaging reviewed in the transverse and longitudinal planes. All measurements were calculated based on NASCET criteria. FINDINGS: Antegrade flow is seen in the bilateral vertebral arteries. Mild scattered calcified plaque again noted. The peak systolic velocity within the right ICA is 79 cm/s. The right systolic ratio is 1.3. The peak systolic velocity within the left ICA is 59 cm/s. The left systolic ratio is 1.0. Bilateral external carotid artery stenosis again noted IMPRESSION: No hemodynamically significant stenosis seen within the bilateral common or internal carotid arteries. ACT 112: Negative or not required by law. Electronically signed by: Josue Mahoney M.D. 10/04/2021 11:32 AM (1) AMS (altered mental status) Altered mental status type: unspecified Qualified Code(s): R41.82 - Altered mental status, unspecified (2) Chronic kidney disease Chronic kidney disease stage: unspecified stage Qualified Code(s): N18.9 - Chronic kidney disease, unspecified
--- NOTE | 2021-10-04 13:51 | Gastrointestinal Consultation ---
Date of Consultation October 04, 2021 Assessment & Plan (1) C. difficile diarrhea: Treat with PO Vancomycin for another 14 days. Follow up as OP, if diarrhea recurs again will need evaluation for FMT. Recall GI if needed. 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 Today he only had one BM and more formed, no melena or rectal bleeding. Denies any abdominal pain, nausea or vomiting. Allergies Allergy/AdvReac Type Severity Reaction Status Date / Time methylprednisolone AdvReac Severe AMS Verified 10/03/21 23:26 hydromorphone [From Dilaudid] AdvReac Intermediate Nausea Verified 10/03/21 23:26 prednisone AdvReac Intermediate INCREASE Verified 10/03/21 23:26 BLOOD SUGAR Home Medications Medication Instructions Recorded Confirmed Type atorvastatin 80 mg tablet 80 mg PO QPM 11/13/17 10/03/21 History fluticasone propionate 50 2 spray intranasal DAILY 11/13/17 10/03/21 History mcg/actuation nasal spray,suspension (Flonase Allergy Relief) insulin degludec 200 unit/mL (3 130 unit subcut QAM 11/13/17 10/03/21 History mL) subcutaneous pen (Tresiba FlexTouch U-200 insulin) nitroglycerin 0.4 mg sublingual 0.4 mg sublingual UD PRN Chest Pain 11/13/17 10/03/21 History tablet (Nitrostat) etanercept 50 mg/mL (1 mL) 1 dose subcut WK 04/10/18 10/03/21 History subcutaneous pen injector (Enbrel SureClick) furosemide 80 mg tablet (Lasix) 80 mg PO QAM 04/20/18 10/03/21 History omeprazole 20 mg tablet,delayed 20 mg PO BID #60 tabs 10/14/19 10/03/21 Rx release allopurinol 300 mg tablet 300 mg PO DAILY 06/09/20 10/03/21 History aspirin 81 mg tablet,delayed 81 mg PO DAILY 06/09/20 10/03/21 History release (Beba Low Dose Aspirin) folic acid 1 mg tablet 1 mg PO DAILY 06/09/20 10/03/21 History insulin aspart U-100 100 unit/mL 0 unit subcut TIDM 10/29/20 10/03/21 History (3 mL) subcutaneous pen (Novolog Flexpen U-100 Insulin aspart) liraglutide 0.6 mg/0.1 mL (18 mg/3 1.8 mg subcut QAM 10/29/20 10/03/21 History mL) subcutaneous pen injector (Victoza 3-Kei) isosorbide mononitrate 30 mg 30 mg PO QAM 30 days #30 tabs 12/16/20 10/03/21 Rx tablet,extended release 24 hr Lactobacillus acidophilus 10 10,000 mmu cells PO DAILY 05/19/21 10/03/21 History billion cell capsule (Probiotic) tamsulosin 0.4 mg capsule 0.4 mg PO DAILY 06/27/21 10/03/21 History albuterol sulfate 90 mcg/actuation 2 puff inhalation Q4H PRN 09/20/21 10/03/21 History aerosol inhaler (ProAir HFA) COUGH/SHORTNESS OF BREATH betamethasone dipropionate 0.05 % 1 applic topical BID PRN ECZEMA 09/20/21 10/03/21 History topical cream FLARE UPS losartan 25 mg tablet 25 mg PO QAM 09/20/21 10/03/21 History octreotide acetate 50 mcg/mL 50 mcg subcut BID 09/20/21 10/03/21 History injection solution sertraline 50 mg tablet 50 mg PO QAM 09/20/21 10/03/21 History triamcinolone acetonide 0.1 % 1 applic topical BID PRN Skin 09/20/21 10/03/21 History topical ointment Irritation Patient History Medical History Anemia IRON INFUSIONS EVERY OTHER WEEK Anemia of chronic disease CHF (congestive heart failure) Chronic diastolic CHF (congestive heart failure) Chronic GI bleeding Chronic obstructive pulmonary disease CKD (chronic kidney disease), stage IV Diabetes mellitus, type 2 Diverticular disease GERD (gastroesophageal reflux disease) GI bleed GI bleed History of colon polyps History of COVID-19 02/2021>NO SYMPTOMS *TESTED AT [facility] History of prostate cancer radiation seeds Hx of gout Hyperlipidemia Hypertension SNOW (iron deficiency anemia) IDDM (insulin dependent diabetes mellitus) Obesity On home oxygen therapy 2L N/C AT HS WITH CPAP Osteoarthritis Pacemaker Psoriasis Psoriatic arthritis Sleep apnea CPAP WITH O2 AT 2L Surgical History History of cardiac cath had 4 total--last 2015 @ [facility] History of colonoscopy History of esophagogastroduodenoscopy (EGD) History of heart artery stent x6 stents total History of prostate biopsy malignant History of tooth extraction S/P CABG x 3 2008 @ [facility] [place]---follows with Dr. Rolon Status post LASIK surgery of both eyes Family History Son Family history of diabetes mellitus Other No family history of adverse response to anesthesia Social History Smoking Status: Former smoker Tobacco Type: Cigarettes Second Hand Exposure: No; Hx Alcohol Use: No Hx Substance Use: No Preferred Language: Qatari Communication Ability: Effective Fur Nailer Required: No Beliefs That Will Affect Care: None marital status: Current Living Situation: Spouse and Family Current Living Situation Comment: /[facility] [employer] [facility]AND[facility] How many Children do You have: 2 Other Information That Helps Us Care for You: No Feels Safe at Home: Yes Safety Concerns: Feels Safe At This Time Assistive Devices: Glasses, Oxygen - at Night, Walker and Wheelchair Review of Systems Review of Systems: All systems reviewed & are unremarkable except as noted in HPI & below Physical Exam Constitutional: comfortable; no acute distress Respiratory: normal respiratory effort, lungs clear to auscultation Cardiovascular: RRR, no murmur, no edema Gastrointestinal (Abdomen): normal bowel sounds, soft, nontender, no hepatosplenomegaly Results & Data ([facility]) Vital Signs (Past 12 Hours) Vital Signs Temp Pulse Pulse Resp BP Pulse Ox O2 Del Method 10/04/21 12:04 36.5 C 77 16 144/83 H 99 Room Air 10/04/21 09:01 61 10/04/21 09:01 Room Air, BiPAP 10/04/21 07:44 36.7 C 75 20 117/56 L 94 Room Air 10/04/21 04:56 36.6 C 61 16 128/62 97 BiPAP 10/04/21 02:46 72 08/21/22 03:43 72 19 99 10/04/21 02:14 36.8 C 67 16 146/64 H 96 Room Air O2 Flow Rate 10/04/21 12:04 10/04/21 09:01 10/04/21 09:01 10/04/21 07:44 10/04/21 04:56 10/04/21 02:46 10/04/21 03:43 2 10/04/21 02:14 Laboratory Results Laboratory Results - last 24 hr 10/03/21 10/03/21 10/03/21 19:29 19:35 19:35 WBC 11.14 H RBC 3.30 L Hgb 9.6 L Hct 31.2 L MCV 94.5 MCH 29.1 MCHC 30.8 L RDW Std Deviation 58.5 H RDW Coeff of Joey 17.0 H Plt Count 235 MPV 9.3 L Immature Gran % (Auto) 0.4 Neut % (Auto) 82.6 Lymph % (Auto) 9.0 [place] % (Auto) 3.5 Eos % (Auto) 4.0 Baso % (Auto) 0.5 Neut # (Auto) 9.19 H Lymph # (Auto) 1.00 L [place] # (Auto) 0.39 Eos # (Auto) 0.45 Baso # (Auto) 0.06 Immature Gran # (Auto) 0.05 H PT Cancelled INR Cancelled APTT Cancelled PTT Ratio Cancelled Sodium Potassium Chloride Carbon Dioxide Anion Gap BUN Creatinine Est Cr Clr Drug Dosing Est GFR ( Amer) Est GFR (Non-Af Amer) BUN/Creatinine Ratio Glucose POC Glucose 116 H Estimat Average Glucose Hemoglobin A1c Calcium Magnesium Total Bilirubin AST ALT Alkaline Phosphatase Troponin I High Sens Total Protein Albumin Globulin Albumin/Globulin Ratio Triglycerides Cholesterol LDL Cholesterol, Calc VLDL Cholesterol, Calc HDL Cholesterol Cholesterol/HDL Ratio 25-OH Vitamin D Total TSH Urine Color Urine Appearance Urine pH Ur Specific [place] Urine Protein Urine Glucose (UA) Urine Ketones Urine Blood Urine Nitrite Urine Bilirubin Urine Urobilinogen Ur Leukocyte Esterase Urine WBC (Auto) Urine RBC (Auto) U Hyaline Cast (Auto) U Epithel Cells (Auto) Urine Bacteria (Auto) SARS-CoV-2, RNA, NAAT 10/03/21 10/03/21 10/03/21 19:35 19:35 20:35 WBC RBC Hgb Hct MCV MCH MCHC RDW Std Deviation RDW Coeff of Joey Plt Count MPV Immature Gran % (Auto) Neut % (Auto) Lymph % (Auto) [place] % (Auto) Eos % (Auto) Baso % (Auto) Neut # (Auto) Lymph # (Auto) [place] # (Auto) Eos # (Auto) Baso # (Auto) Immature Gran # (Auto) PT 10.9 INR 1.0 APTT 31.3 H PTT Ratio 1.1 Sodium 139 Potassium 3.5 Chloride 109 H Carbon Dioxide 24 Anion Gap 6 BUN 29 H Creatinine 1.39 Est Cr Clr Drug Dosing 50.8 Est GFR ( Amer) 55.5 Est GFR (Non-Af Amer) 47.9 BUN/Creatinine Ratio 20.9 H Glucose 95 POC Glucose Estimat Average Glucose Hemoglobin A1c Calcium 6.9 L Magnesium 1.6 L Total Bilirubin 0.7 AST 20 ALT 15 Alkaline Phosphatase 94 Troponin I High Sens 11.3 Total Protein 5.8 L Albumin 3.1 L Globulin 2.7 Albumin/Globulin Ratio 1.1 Triglycerides Cholesterol LDL Cholesterol, Calc VLDL Cholesterol, Calc HDL Cholesterol Cholesterol/HDL Ratio 25-OH Vitamin D Total TSH 1.492 Urine Color Urine Appearance Urine pH Ur Specific [place] Urine Protein Urine Glucose (UA) Urine Ketones Urine Blood Urine Nitrite Urine Bilirubin Urine Urobilinogen Ur Leukocyte Esterase Urine WBC (Auto) Urine RBC (Auto) U Hyaline Cast (Auto) U Epithel Cells (Auto) Urine Bacteria (Auto) SARS-CoV-2, RNA, NAAT 10/03/21 10/03/21 10/04/21 21:09 21:59 02:50 WBC RBC Hgb Hct MCV MCH MCHC RDW Std Deviation RDW Coeff of Joey Plt Count MPV Immature Gran % (Auto) Neut % (Auto) Lymph % (Auto) [place] % (Auto) Eos % (Auto) Baso % (Auto) Neut # (Auto) Lymph # (Auto) [place] # (Auto) Eos # (Auto) Baso # (Auto) Immature Gran # (Auto) PT INR APTT PTT Ratio Sodium Potassium Chloride Carbon Dioxide Anion Gap BUN Creatinine Est Cr Clr Drug Dosing Est GFR ( Amer) Est GFR (Non-Af Amer) BUN/Creatinine Ratio Glucose POC Glucose 116 H Estimat Average Glucose Hemoglobin A1c Calcium Magnesium Total Bilirubin AST ALT Alkaline Phosphatase Troponin I High Sens Total Protein Albumin Globulin Albumin/Globulin Ratio Triglycerides Cholesterol LDL Cholesterol, Calc VLDL Cholesterol, Calc HDL Cholesterol Cholesterol/HDL Ratio 25-OH Vitamin D Total TSH Urine Color Yellow Urine Appearance Clear Urine pH 6.0 Ur Specific [place] 1.008 Urine Protein 2+ H Urine Glucose (UA) Negative Urine Ketones Negative Urine Blood Trace H Urine Nitrite Negative Urine Bilirubin Negative Urine Urobilinogen Negative Ur Leukocyte Esterase 1+ H Urine WBC (Auto) 10-30 H Urine RBC (Auto) 0-4 U Hyaline Cast (Auto) 1-5 U Epithel Cells (Auto) 10-20 H Urine Bacteria (Auto) Negative SARS-CoV-2, RNA, NAAT NEGATIVE 10/04/21 10/04/21 10/04/21 05:33 05:33 05:33 WBC 8.60 RBC 3.42 L Hgb 10.0 L Hct 31.8 L MCV 93.0 MCH 29.2 MCHC 31.4 L RDW Std Deviation 58.4 H RDW Coeff of Joey 17.0 H Plt Count 222 MPV 9.3 L Immature Gran % (Auto) 0.3 Neut % (Auto) 76.6 Lymph % (Auto) 12.2 [place] % (Auto) 4.5 Eos % (Auto) 5.7 Baso % (Auto) 0.7 Neut # (Auto) 6.58 H Lymph # (Auto) 1.05 L [place] # (Auto) 0.39 Eos # (Auto) 0.49 Baso # (Auto) 0.06 Immature Gran # (Auto) 0.03 H PT INR APTT PTT Ratio Sodium 136 Potassium 3.7 Chloride 104 Carbon Dioxide 27 Anion Gap 5 BUN 38 H Creatinine 1.69 H D Est Cr Clr Drug Dosing 41.7 Est GFR ( Amer) 43.8 Est GFR (Non-Af Amer) 37.8 BUN/Creatinine Ratio 22.5 H Glucose 123 H POC Glucose Estimat Average Glucose Pending Hemoglobin A1c Pending Calcium 8.4 L Magnesium 2.2 Total Bilirubin AST ALT Alkaline Phosphatase Troponin I High Sens Total Protein Albumin Globulin Albumin/Globulin Ratio Triglycerides 176 H Cholesterol 105 LDL Cholesterol, Calc 48 VLDL Cholesterol, Calc 35 H HDL Cholesterol 22 Cholesterol/HDL Ratio 4.8 25-OH Vitamin D Total TSH Urine Color Urine Appearance Urine pH Ur Specific [place] Urine Protein Urine Glucose (UA) Urine Ketones Urine Blood Urine Nitrite Urine Bilirubin Urine Urobilinogen Ur Leukocyte Esterase Urine WBC (Auto) Urine RBC (Auto) U Hyaline Cast (Auto) U Epithel Cells (Auto) Urine Bacteria (Auto) SARS-CoV-2, RNA, NAAT 10/04/21 10/04/21 10/04/21 05:33 07:32 11:29 WBC RBC Hgb Hct MCV MCH MCHC RDW Std Deviation RDW Coeff of Joey Plt Count MPV Immature Gran % (Auto) Neut % (Auto) Lymph % (Auto) [place] % (Auto) Eos % (Auto) Baso % (Auto) Neut # (Auto) Lymph # (Auto) [place] # (Auto) Eos # (Auto) Baso # (Auto) Immature Gran # (Auto) PT INR APTT PTT Ratio Sodium Potassium Chloride Carbon Dioxide Anion Gap BUN Creatinine Est Cr Clr Drug Dosing Est GFR ( Amer) Est GFR (Non-Af Amer) BUN/Creatinine Ratio Glucose POC Glucose 124 H 89 Estimat Average Glucose Hemoglobin A1c Calcium Magnesium Total Bilirubin AST ALT Alkaline Phosphatase Troponin I High Sens Total Protein Albumin Globulin Albumin/Globulin Ratio Triglycerides Cholesterol LDL Cholesterol, Calc VLDL Cholesterol, Calc HDL Cholesterol Cholesterol/HDL Ratio 25-OH Vitamin D Total 14.5 L TSH Urine Color Urine Appearance Urine pH Ur Specific [place] Urine Protein Urine Glucose (UA) Urine Ketones Urine Blood Urine Nitrite Urine Bilirubin Urine Urobilinogen Ur Leukocyte Esterase Urine WBC (Auto) Urine RBC (Auto) U Hyaline Cast (Auto) U Epithel Cells (Auto) Urine Bacteria (Auto) SARS-CoV-2, RNA, NAAT
--- NOTE | 2021-10-04 20:56 | Electrocardiogram Report ---
Test Reason : Blood Pressure : / mmHG Vent. Rate : 085 BPM Atrial Rate : 085 BPM P-R Int : 208 ms QRS Dur : 162 ms QT Int : 438 ms P-R-T Axes : -15 268 067 degrees QTc Int : 521 ms AV dual-paced rhythm Abnormal ECG When compared with ECG of 20-SEP-2021 19:38, Vent. rate has increased BY 7 BPM Confirmed by Carlyle Quinn ([id number]) on 10/04/2021 8:56:14 PM Referred By: REFERRED SELF Confirmed By:Carlyle Quinn
[2021-10-04] MEDS ORDERED: ATORVASTATIN 40 MG TAB PO SCH (21:00)
[2021-10-05] MEDS: VANCOMYCIN HCL 250 MG/5 ML SOLN PO SCH ×2 (04:50→12:18)
[2021-10-05] MEDS: RASPBERRY SYRUP 5 ML UDP PO SCH ×2 (04:50→12:18)
[2021-10-05 06:32] LABS: Basophils # (auto) 0.04 K/uL (0-0.2); Basophils % (auto) 0.5 %; Eosinophils # (auto) 0.71 K/uL (0-0.50); Eosinophils % (auto) 9.3 %; Hematocrit (blood only) 30.7 % (40.1-51.0); Hemoglobin 9.6 g/dl (14.0-18.0); Immature Granulocytes # (auto) 0.03 K/uL (0.00-0.02); Immature Granulocytes % (auto) 0.4 %; Mean Corpuscular Hemoglobin 28.8 pg (25.0-34.0); Mean Corpuscular Hgb Conc 31.3 g/dL (32.0-36.0); Mean Corpuscular Volume 92.2 fL (80.0-100.0); Mean Platelet Volume 9.3 fL (9.4-12.4); Monocytes # (auto) 0.34 K/uL (0.24-0.82); Monocytes % (auto) 4.4 %; Neutrophils # (auto) 5.55 K/uL (1.4-6.5); Neutrophils % (auto) 72.4 %; Platelet Count 199 K/uL (130-400); RDW Coefficient of Variation 16.5 % (11.5-14.5); RDW Standard Deviation 56.2 fL (36.4-46.3); Red Blood Count 3.33 M/uL (4.63-6.08); White Blood Count 7.67 K/ul (4.8-10.8)
[2021-10-05 06:56] LABS: Estimated Average Glucose 108 mg/dl; Hemoglobin A1C 5.4 % (4.5-5.6)
[2021-10-05 06:58] LABS: Anion Gap 4 (3-11); BUN Creatinine Ratio 20.7 (10-20); Blood Urea Nitrogen 37 mg/dl (6-23); Calcium 8.3 mg/dl (8.5-10.1); Carbon Dioxide 27 mmol/L (21-32); Chloride 105 mmol/L (98-107); Est GFR (African American) 40.9 ml/min; Est GFR (Non-African American) 35.3 ml/min; Glucose 115 mg/dl (70-99(Fasting)); Sodium 136 mmol/L (136-145)
[2021-10-05] MEDS: SERTRALINE HCL 50 MG TABLET PO SCH (08:19)
[2021-10-05] MEDS: CALCIUM 600MG + VIT D 400 IU TAB PO SCH (08:19)
[2021-10-05] MEDS: PANTOprazole 40 MG TAB PO SCH (08:19)
[2021-10-05] MEDS: ISOSORBIDE MONO EXTENDED REL 30 MG TABCR PO SCH (08:19)
[2021-10-05] MEDS: allopurinoL 300 MG TAB PO SCH (08:19)
[2021-10-05] MEDS: LOSARTAN POTASSIUM 25 MG TAB PO SCH (08:20)
[2021-10-05] MEDS: ADVANCED PROBIOTIC 1250 MG CAPSULE PO SCH (08:20)
[2021-10-05] MEDS: CHOLECALCIFEROL 5,000 UNITS 125 MCG TAB PO SCH (08:20)
[2021-10-05] MEDS: FOLIC ACID 1 MG TAB PO SCH (08:20)
[2021-10-05] MEDS: ASPIRIN 81 MG ECTAB PO SCH (08:20)
[2021-10-05] MEDS: FLUTICASONE PROPIONATE NA SPR 16 GM BTL NAE SCH (08:21)
[2021-10-05] MEDS: TAMSULOSIN HCL 0.4 MG CAP PO SCH (08:21)
[2021-10-05] MEDS: ENOXAPARIN INJ 40 MG/0.4 ML SYR SQ SCH (08:22)
[2021-10-05] MEDS: INSULIN ASPART PER UNIT SC SCH ×2 (08:25→12:42)
[2021-10-05] MEDS: LANTUS PER UNIT CHARGE SQ SCH (08:49)
[2021-10-05] MEDS: OCTREOTIDE ACETATE 100 MCG/ML VIAL SQ SCH (09:04)
--- NOTE | 2021-10-05 11:55 | Hospitalist Progress Note ---
Date of Service October 05, 2021 Assessment & Plan (1) AMS (altered mental status): (2) C. difficile diarrhea: (3) Vitamin D deficiency: (4) Hypocalcemia: (5) Hypomagnesemia: (6) Morbid obesity: (7) CKD (chronic kidney disease) stage 4, GFR 15-29 ml/min: Plan This 81-year-old male, presents with multiple medical problems presents with transient amnesia and confusion. 1) Altered mental status, resolved 2) Recent C.difficile infection Patient presented with episode of altered mental status and confusion which resolved at presentation to the hospital. Recent C. difficile infection; 6 episode of bowel movement prior to presentation. He was hypocalcemic and hypomagnesemic WBC count down trended from 11.1-8.6. CT head with no acute findings EchoEF of 55 to 60%, aortic valve sclerosis moderate without significant aortic valvular stenosis. Plan; His episode is likely related to electrolyte disturbances secondary to diarrhea. -Will check C. difficile again for recurrence. -Start empiric oral vancomycin right now with plan to taper if recurrence is confirmed -PT OT evaluation 3) Hypomagnesemia-repleted 4) Hypocalcemia repleted 5) Vitamin D deficiency-started on 5000 units/day 6. Diabetes. Continue his home Tresiba, placed on insulin sliding scale. Follow the blood sugars. 7. Obstructive sleep apnea. On CPAP at bedtime. 8. Diastolic congestive heart failure, holding the Lasix. Getting gentle fluids, monitor for volume overload. Continue losartan. 9. Chronic kidney disease stage IV, creatinine is 1.39. We will follow the repeat labs. . 10. Psoriatic arthritis, on Enbrel subQ weekly. Follow up with Dermatology. 11. History of prostate cancer. Follows with Oncology and Urology as per patient. 12. History of coronary artery disease, status post coronary artery bypass grafting, status post stents. Continue statin, aspirin, isosorbide mononitrate, losartan, currently stable. 13. History of depression. Continue Zoloft. 14. History of benign prostatic hyperplasia. Continue Flomax. 15. History of gastroesophageal reflux disease. Continue omeprazole. 16. History of gout. Continue allopurinol. 17. Deep venous thrombosis prophylaxis. Lovenox. Diet- heart healthy DVT ppx- lovenox code- full code Admission and Anticipated Discharge Date Admission Date: October 03, 2021 Physical Exam Physical Exam: Constitutional: Awake, alert orient x3. Not in any acute distress Head: Normocephalic, Atraumatic Eyes: PERRL, conjunctivae normal, anicteric sclerae ENMT: external ear and nose normal, oropharynx normal Neck: trachea midline, no thyromegaly normal visual inspection Respiratory: normal respiratory effort, lungs clear to auscultation, no wheeze, rales, rhonchi. Normal insp/exp effort, no accessory muscle use Cardiovascular: RRR, no murmur, no edema Vessels: no JVD or carotid bruit Chest: normal inspection of chest. Normal vessel breath sound Abdomen: normal bowel sounds, soft, nontender, no hepatosplenomegaly Musculoskeletal: no cyanosis or clubbing, extremities motor strength 5/5 Skin: no rashes, warm and dry normal turgor Neurologic: PERRL, EOMI, accommodation nl, no face palsy, no dysarthria CN's II- XI intact bilaterally and moves all extremities Psychiatric: A+Ox3, euthymic affect Lymphatic: no cervical or axillary lymphadenopathy : deferred Results & Data Results & Data ([facility]) Vital Signs (Past 12 Hours) Vital Signs Temp Pulse Pulse Resp BP Pulse Ox Pulse Ox 10/05/21 11:03 36.4 C L 63 18 133/64 97 10/05/21 10:32 10/05/21 07:51 36.8 C 62 18 123/50 L 97 10/05/21 03:39 36.9 C 60 17 121/61 98 10/05/21 03:06 60 19 99 10/05/21 01:00 99 O2 Del Method O2 Del Method O2 Flow Rate 10/05/21 11:03 Room Air 10/05/21 10:32 Room Air 10/05/21 07:51 Room Air 10/05/21 03:39 CPAP 10/05/21 03:06 2 10/05/21 01:00 CPAP (1) AMS (altered mental status) Altered mental status type: unspecified Qualified Code(s): R41.82 - Altered mental status, unspecified
--- NOTE | 2021-10-05 16:14 | Discharge Summary ---
Date of Service October 05, 2021 Admission HPI Per Admitting Provider This is a 81-year-old male with past medical history significant for type 2 diabetes, chronic kidney disease stage IV, chronic respiratory failure with hypoxia, COPD, obstructive sleep apnea, hyperlipidemia, pulmonary hypertension, chronic diastolic CHF, history of CAD s/p stent, s/p CABG, history of Mobitz type I Wenckebach block, morbid obesity, Henning's esophagus, vitamin B12 deficiency, BPH, generalized osteoarthritis, chronic pain of right hip, iron deficiency anemia due to chronic blood loss, anemia of chronic kidney disease, psoriasis, psoriatic arthropathy, polyarticular psoriatic arthropathy, status p ost cardiac pacemaker, prostate cancer status post seed implantation, patient is getting iron infusions every 2 weeks. He is also getting PRBC transfusions for his anemia. Patient says recently treated for C. diff, finished a 10-day course of p.o. vancomycin last . Today after mowing his grass, he was confused around 4 p.m. for about hour, he was worried about his blood sugars running low because of his C. diff. He did not even know how to check the blood sugars. Family thought he may be having some word finding difficulty. The patient does not remember anything for about a hour and he was brought in here. Currently back to his normal self. His initial CT scan is okay. The patient says again since yesterday, he is having some diarrhea today he had 6 episodes of diarrhea, loose, watery. Denies any fever or chills. Has some lower abdominal pain from his C. diff. He is having neck pain and headache. He has had chronic blurred visions, no runny nose, no sore throat, no cough, no difficulty swallowing. Appetite is down since C. diff .Says had brief episode of chest pain at one spot , but it is resolved. He is always short of breath from his anemia. No nausea or vomiting. Currently, resting comfortably and hemodynamically stable. He is worried that his octreotide shots are causing his symptoms. He is on octreotide shots to prevent AVM bleed. Admission Exam Per Admitting Provider GENERAL: The patient is morbidly obese, currently not in acute distress. VITAL SIGNS: Temperature 36.9, pulse 90, respiratory rate 20, blood pressure 160/66, oxygen 98% on room air. HEENT: Pupils equal, round and reactive to light. Oral mucosa moist. NECK: No JVD, no neck masses. CARDIOVASCULAR: S1 and S2 heard. Regular rate and rhythm. No murmur, no gallop. RESPIRATORY SYSTEM: Normal AP diameter. No accessory muscle use. No wheezing, no crackles. ABDOMEN: Soft, bowel sounds present, nontender, no distention. CENTRAL NERVOUS SYSTEM: Cranial nerves II through XII are grossly intact, alert and oriented. Speech is clear. No facial droop. Insight is good. Obeys commands. Moves extremities. EXTREMITIES: No edema, no erythema. Principal Diagnosis (1) AMS (altered mental status): (2) Recent C. difficile diarrhea: (3) Vitamin D deficiency: (4) Hypocalcemia: (5) Hypomagnesemia: Discharge Exam Constitutional: Awake, alert orient x3. Not in any acute distress Head: Normocephalic, Atraumatic Eyes: PERRL, conjunctivae normal, anicteric sclerae ENMT: external ear and nose normal, oropharynx normal Neck: trachea midline, no thyromegaly normal visual inspection Respiratory: normal respiratory effort, lungs clear to auscultation, no wheeze, rales, rhonchi. Normal insp/exp effort, no accessory muscle use Cardiovascular: RRR, no murmur, no edema Vessels: no JVD or carotid bruit Chest: normal inspection of chest. Normal vessel breath sound Abdomen: normal bowel sounds, soft, nontender, no hepatosplenomegaly Musculoskeletal: no cyanosis or clubbing, extremities motor strength 5/5 Skin: no rashes, warm and dry normal turgor Neurologic: PERRL, EOMI, accommodation nl, no face palsy, no dysarthria CN's II- XI intact bilaterally and moves all extremities Psychiatric: A+Ox3, euthymic affect Lymphatic: no cervical or axillary lymphadenopathy : deferred Discharge Data Allergies Allergy/AdvReac Type Severity Reaction Status Date / Time methylprednisolone AdvReac Severe AMS Verified 10/03/21 23:26 hydromorphone [From Dilaudid] AdvReac Intermediate Nausea Verified 10/03/21 23:26 prednisone AdvReac Intermediate INCREASE Verified 10/03/21 23:26 BLOOD SUGAR Consultations 10/04/21 08:00 Consult Gastroenterology Routine Consult Neurology Routine Ordered Studies 10/03/21 19:32 CT head/brain wo con Stat 10/04/21 00:34 US carotid doppler BI Routine Hospital Course (1) AMS (altered mental status): (2) C. difficile diarrhea: (3) Vitamin D deficiency: (4) Hypocalcemia: (5) Hypomagnesemia: (6) Morbid obesity: (7) CKD (chronic kidney disease) stage 4, GFR 15-29 ml/min: Plan Patient is a 81-year-old male with multiple medical issues along with recent diagnosis of C. difficile infection presented to the ED after an episode of confusion. On the day of admission, patient had multiple bowel movements during the day. The episode of confusion happened during the afternoon when he was mowing the lawn. He was not able to check his blood glucose at that time. Patient was then brought to the ED. He was back to his normal mentation at presentation to the ED. CT head was done which did not show any acute abnormality. Patient was found to have hypocalcemia and hypomagnesemia. Patient was unable to undergo MRI due to his pacemaker. Patient was then admit sejal to the telemetry floor with IV hydration and repletion of his electrolytes were done. Neurology and GI services were consulted. During the hospitalization patient did not have any episode of confusion. Patient was found to have vitamin D deficiency for which supplementation was started. Patient had well formed bowel movement during the hospitalization; sample sent for C. difficile and patient was rejected. Patient was discharged home. He was instructed to follow-up closely with his PCP. Total Time Total Time Spent Total Time Spent (In Minutes): 35 Total Time Includes: Examination of the Patient, Discharge Planning, Medication Reconciliation, Communication With Other Providers and Other Discharge Plan Discharge Items Patient Disposition: Home - Self-Care Reason For Visit: CONFUSION Discharge Diagnosis: 1) Altered mental status likely 2/2 Electrolyte imbalance 2) Hypomagnesemia 3) Hypocalcemia 4) Type 2 DM 5) Vitamin D defiency Activity: Resume your previous activity Non-emergency contact: Primary Care Provider Call non-emergency contact if: you have any medication questions Follow-up/Referrals: Nicola Prado MD [Primary Care Provider] - (Date & Time 10/09/2021 11:20 AM Provider Nicola Prado MD Department [facility] ) Diet: Carb Consistent or DM2 Addtl Attending Provider Instructions: 1)Please take the medications as prescribed. 2) You are found to have vitamin D deficiency. A prescription for vitamin D 5000 international units sent to your pharmacy. Please sisal picker the prescription. You can use alternative dose of 2000 units once daily as well. Follow-up with primary care doctor. 3) If you have any recurrence of diarrhea; contact your primary care doctor. Pending Studies at Discharge: No Stand-Alone Forms: My [facility] [address], Smoking Cessation Medications and DC Order Prescriptions: New cholecalciferol (vitamin D3) 125 mcg (5,000 unit) Tablet 5,000 unit PO QAM Qty: 30 0RF Continued Enbrel SureClick 50 mg/mL (0.98 mL) Pen Injector 1 dose subcut WK Rx Instructions: TAKES ON . furosemide [Lasix] 80 mg Tablet 80 mg PO QAM Tresiba FlexTouch U-200 200 unit/mL (3 mL) Insulin Pen 130 unit SUBCUT QAM atorvastatin 80 mg Tablet 80 mg PO QPM nitroglycerin [Nitrostat] 0.4 mg Tablet, Sublingual 0.4 mg Sublingual UD PRN (Reason: Chest Pain) Rx Instructions: ONE TABLET UNDER THE TONGUE EVERY 5 MINUTES UP TO 3 DOSES. fluticasone propionate [Flonase Allergy Relief] 50 mcg/actuation [place],Suspension 2 spray INTRANASAL DAILY Rx Instructions: EACH NOSTRIL omeprazole 20 mg Tablet,Delayed Release (Dr/Ec) 20 mg PO BID Qty: 60 1RF aspirin [Bbea Low Dose Aspirin] 81 mg Tablet,Delayed Release (Dr/Ec) 81 mg PO DAILY Label Comments: QAM folic acid 1 mg tablet 1 mg PO DAILY allopurinol 300 mg tablet 300 mg PO DAILY Label Comments: QAM insulin aspart U-100 [Novolog Flexpen U-100 Insulin] 100 unit/mL (3 mL) insulin pen 0 unit SUBCUT TIDM Label Comments: patient states he took 40 units total yesterday. Rx Instructions: plus sliding scale PER PT "TAKES 45 UNITS QAM & AT 1600, THEN IF BSG >250 TAKES 25 UNITS AT HS". Victoza 3-Kei 0.6 mg/0.1 mL (18 mg/3 mL) pen injector 1.8 mg SUBCUT QAM isosorbide mononitrate 30 mg Tablet Extended Release 24 Hr 30 mg PO QAM 30 Days Qty: 30 2RF Probiotic 10 billion cell Capsule 10,000 mmu cells PO DAILY tamsulosin 0.4 mg capsule 0.4 mg PO DAILY Rx Instructions: PER PT "TOOK A SECOND DOSE THIS AFTERNOON, D/T UNABLE TO VOID".09/20/21 octreotide acetate 50 mcg/mL solution 50 mcg subcut BID triamcinolone acetonide 0.1 % Ointment 1 applic TOPICAL BID PRN (Reason: Skin Irritation) losartan 25 mg tablet 25 mg PO QAM betamethasone dipropionate 0.05 % Cream 1 applic TOPICAL BID PRN (Reason: ECZEMA FLARE UPS) albuterol sulfate [ProAir HFA] 90 mcg/actuation Hfa Aerosol Inhaler 2 puff INHALATION Q4H PRN (Reason: COUGH/SHORTNESS OF BREATH) sertraline 50 mg tablet 50 mg PO QAM Discharge Orders: Discharge Order (Routine); Ordered 10/05/21 Ordered By: Alex Dennis Admission Data Admit Date/Time: 10/03/21 22:45 Attending Provider: Alex Dennis Admit Provider: Harsh Peterson Primary Care Provider: Nicola Prado Other Providers: Annelise Diaz ; Shabbir Mcgovern ; Kingsley Larson ; Kaylee Dash ; Ariella Serna ; Clifford Wadsworth ; Ariella Connolly ; Bear Anne ; Cathryn Gutierrez ; Harris Nolasco ; Thelma Ott ; Sushma Cherry ; Allie Thibodeaux Other Interventions: Discharge Summary Assessment (RN) Last Done: 10/05/21 13:41
[2021-10-06] MEDS ORDERED: INSULIN ASPART PER UNIT SC SCH (07:30)
[2021-10-06] MEDS ORDERED: LANTUS PER UNIT CHARGE SQ SCH (09:00)
--- NOTE | 2021-10-06 09:08 | Electrocardiogram Report ---
Test Reason : Blood Pressure : / mmHG Vent. Rate : 063 BPM Atrial Rate : 063 BPM P-R Int : 208 ms QRS Dur : 166 ms QT Int : 492 ms P-R-T Axes : 000 -83 059 degrees QTc Int : 503 ms AV dual-paced rhythm Abnormal ECG When compared with ECG of 03-OCT-2021 20:00, Vent. rate has decreased BY 22 BPM Confirmed by Tyler Aguirre ([id number]) on 10/06/2021 9:07:46 AM Referred By: REFERRED SELF Confirmed By:Tyler Aguirre
== END 2021-10-05 14:33 | disposition home or self-care (01) | DRG 372 ==
LOC: ED 19:22 → EDINP 22:45 → 2E 10-04 03:21
DX: Z79.84 Long term (current) use of oral hypoglycemic drugs; I50.32 Chronic diastolic (congestive) heart failure; Z85.46 Personal history of malignant neoplasm of prostate; N39.0 Urinary tract infection, site not specified; E55.9 Vitamin D deficiency, unspecified; Z79.899 Other long term (current) drug therapy; J44.9 Chronic obstructive pulmonary disease, unspecified; Z99.81 Dependence on supplemental oxygen; Z79.82 Long term (current) use of aspirin; I13.0 Hypertensive heart and chronic kidney disease with heart failure and stage 1 through stage 4 chronic kidney disease, or unspecified chronic kidney disease; Z95.0 Presence of cardiac pacemaker; G47.33 Obstructive sleep apnea (adult) (pediatric); Z88.8 Allergy status to other drugs, medicaments and biological substances; Z86.16 Personal history of COVID-19; A04.72 Enterocolitis due to Clostridium difficile, not specified as recurrent; E86.0 Dehydration; Z79.4 Long term (current) use of insulin; Z87.891 Personal history of nicotine dependence; J96.11 Chronic respiratory failure with hypoxia; E66.01 Morbid (severe) obesity due to excess calories; G93.40 Encephalopathy, unspecified; N18.4 Chronic kidney disease, stage 4 (severe); Z88.5 Allergy status to narcotic agent

== ENCOUNTER 2023-02-03 12:11 | Inpatient (IN) ==
[2023-02-03 13:28] LABS: Basophils # (auto) 0.05 K/uL (0.00-0.20); Basophils % (auto) 0.4 %; Eosinophils # (auto) 0.05 K/uL (0.00-0.50); Eosinophils % (auto) 0.4 %; Hematocrit (blood only) 33.9 % (42.0-52.0); Hemoglobin 10.9 g/dl (14.0-18.0); Immature Granulocytes # (auto) 0.05 K/uL (0.01-0.20); Immature Granulocytes % (auto) 0.4 %; Lymphocytes % (auto) 6.4 %; Mean Corpuscular Hemoglobin 29.4 pg (25.0-34.0); Mean Corpuscular Hgb Conc 32.2 g/dL (32.0-36.0); Mean Corpuscular Volume 91.4 fL (80.0-100.0); Mean Platelet Volume 9.8 fL (9.4-12.4); Monocytes # (auto) 0.32 K/uL (0.11-0.59); Monocytes % (auto) 2.6 %; Neutrophils # (auto) 11.25 K/uL (1.40-6.50); Neutrophils % (auto) 89.8 %; Platelet Count 210 K/uL (130-400); RDW Coefficient of Variation 16.2 % (11.5-14.5); RDW Standard Deviation 53.7 fL (36.4-46.3); Red Blood Count 3.71 M/uL (4.70-6.10); White Blood Count 12.52 K/ul (4.8-10.8)
[2023-02-03 13:33] LABS: Alanine Aminotransferase 233 U/L (7-52); Albumin Level 3.4 gm/dl (3.4-5.0); Alkaline Phosphatase 430 U/L (34-104); Anion Gap 9 (3-11); Aspartate Aminotransferase 335 U/L (13-39); BUN Creatinine Ratio 16.9 (10-20); Bilirubin,Total 3.7 mg/dl (0.2-1.0); Blood Urea Nitrogen 34 mg/dl (6-23); Calcium 8.3 mg/dl (8.6-10.3); Carbon Dioxide 29 mmol/L (21-32); Chloride 98 mmol/L (98-107); Est GFR (African American) 35.3 ml/min; Est GFR (Non-African American) 30.4 ml/min; Globulin 3.3 gm/dl (2.5-4.0); Glucose 83 mg/dl (70-99(Fasting)); Magnesium 1.8 mg/dl (1.7-2.4); Potassium 3.9 mmol/L (3.5-5.1); Sodium 136 mmol/L (136-145); Total Protein 6.7 gm/dl (6.0-8.3)
--- NOTE | 2023-02-03 13:34 | CT Scan Report ---
CT OF THE HEAD WITHOUT CONTRAST CLINICAL HISTORY: neuro deficit, acute stroke suspected. Right-sided weakness. COMPARISON STUDY: Head CT October 03, 2021. MRI of the brain October 25, 2016. CT DOSE: 657.02 mGy.cm TECHNIQUE: Helical axial images of the head were obtained without IV contrast. Automated exposure con trol was utilized for the study. A dose lowering technique was utilized adhering to the principles o f ALARA. FINDINGS: No acute intracranial hemorrhage, midline shift or mass effect is present. The ventricular system is unremarkable. The basal cisterns are patent. No extra-axial collections are present. There are no findings to suggest acute dural sinus thrombosis or acute territorial infarct. White matter hy podensities favor small vessel disease. No calvarial fractures are present. Moderate ethmoid sinus mu cosal thickening is noted. There is a small air-fluid level within the right maxillary sinus. IMPRESSION: No acute intracranial findings. ACT 112: Negative or not required by law. Electronically signed by: Vitaly Tadeo M.D. 02/03/2023 1:33 PM
[2023-02-03 13:38] LABS: Troponin I High Sensitivity 14.8 pg/ml (0-20)
[2023-02-03 13:58] LABS: INR 1.1 (0.9-1.1); Partial Thromboplastin Time 28 Seconds (21-31); Prothrombin Time 11.5 Seconds (9.0-12.0)
[2023-02-03] MEDS ORDERED: CEFEPIME 2,000 MG/20 ML VIAL IV STA (14:00)
[2023-02-03] MEDS ORDERED: SODIUM CHLORIDE 0.9% 500 ML IV ONE ×2 (14:00→19:18)
--- NOTE | 2023-02-03 14:07 | XRay Report ---
XR chest 1V portable CLINICAL HISTORY: neuro deficit, acute stroke suspected TECHNIQUE: Single frontal radiograph of the chest was obtained. Comparison: Comparison is made to chest radiograph 10/03/2021 FINDINGS: Lines and tubes are stable. The cardiomediastinal silhouette is normal. The lungs are clear. No evide nce of pleural effusion or pneumothorax. IMPRESSION: No acute chest disease. ACT 112: Negative or not required by law. Electronically signed by: Madhav Hare M.D. 02/03/2023 2:06 PM
--- NOTE | 2023-02-03 14:15 | Emergency Department Note ---
Impression & Plan Acute cholecystitis, Leukocytosis, Elevated liver enzymes, Stroke-like symptoms, ESA (acute kidney injury) ED Provider Note NAME: EMI MCDONOUGH AGE: 82 SEX: M : 1940 ARRIVES VIA: Ambulance INFORMANT: [Patient] ED PROVIDER(S): [Jose Camacho MD] CHIEF COMPLAINT: Stroke symptoms HISTORY OF PRESENT ILLNESS: The patient is an 82-year-old male who states that last night, after eating, he developed some upper abdominal pain. This persisted for a bit but he felt better this morning. The patient went with friends to a restaurant and while he was sitting at the table, became very confused. His symptoms began around 6 hours ago at 7 to 7:30 AM. He did not know where he was, he thought his right side felt weak. He had some slurred speech. He had a headache. The patient states that his symptoms lasted for about an hour to an hour and a half and then resolved. He now feels mentally back to baseline and there is no more weakness. The patient admits that he feels chilled. He does admit to recent increasing shortness of breath with exertion. No chest pain. No documented fever. He has not had diarrhea. The patient presents by ambulance. The patient states that he spoke with his doctor's office today after this event improved and he was referred to the ER for a stroke workup. PMHx/PSHx/Social Hx: See Below PHYSICAL EXAM: GENERAL: Patient is in no acute distress. HEENT: No acute trauma, normocephalic atraumatic, mucous membranes moist, no nasal congestion. NECK: No stridor, no adenopathy, no meningismus, trachea is midline. LUNGS: Clear to auscultation bilaterally, no wheeze, no rhonchi, breath sounds equal. HEART: Without murmurs gallops or rubs, regular rate and rhythm. ABDOMEN: Soft, moderately tender in the right upper quadrant, there is some mild abdominal distention. No peritonitis. EXTREMITIES: No cyanosis, full range of motion of all the joints without pain or difficulty. Mild bilateral pedal edema. NEUROLOGIC: Oriented x 3, no acute motor or sensory deficits, no focal weakness. No speech slur or facial droop. SKIN: No jaundice, no diaphoresis. DIFFERENTIAL DIAGNOSIS: Stroke or TIA, intracranial bleeding, pancreatitis, biliary colic, gastritis, diverticulitis, bacteremia, among others. EMERGENCY DEPARTMENT PROCEDURES: MEDICAL DECISION MAKING: There is a mild leukocytosis, this would be consistent with infection. The patient is anemic however, this is baseline for the patient. There is a normal platelet count. No coagulopathy. Patient does have a higher creatinine, patient carries a history of renal insufficiency however, his value today is higher than baseline and suggestive of acute kidney injury. Lactic acid level was not elevated making severe sepsis less likely. There were significant elevation to the liver enzymes, these enzyme elevations were new. There was no pancreatitis. ECG showed a ventricular pacemaker, no obvious ischemia. Cardiac enzyme testing x 1 was not consistent with acute cardiac injury. Urinalysis showed some contamination, no obvious infection. Chest x-ray did not show mediastinal widening, pneumonia or pneumothorax. Brain CT showed no acute bleed or mass effect. Abdominal and pelvis CT shows evidence for acute cholecystitis. Gallbladder ultrasound shows gallstones and some biliary duct dilatation. On exam, the patient was tender in the right upper quadrant. He was nontoxic in appearance. There were no focal neurologic deficits. There was no speech slur or confusion. Patient received IV saline, 500 cc. A second 500 cc bolus was given. He was given IV ceftriaxone. I did speak with general surgery here at our hospital, I spoke with GI at our hospital-transfer to a tertiary care center was recommended as there was no one on-call for ERCP. I did speak with [facility] [place], Dr. Oliveros. The patient has been accepted to their facility. The patient is aware of the need for transfer, he is currently resting comfortably in his room. He feels improved since treatment here in the ED. Of note, his strokelike symptoms earlier may have been from his acute cholecystitis/infection. Further neurologic workup may be warranted at some point however, currently, the more emergent issue is the acute cholecystitis. Unfortunately, a bed was not available at [facility] this evening. The patient will need to be hospitalized at our facility. I did speak with the case management team and the on-call hospitalist. As per our medical secretary teacher, Dr. Barr at [facility] did accept the patient to his service when a bed opens. Prior/Outside records/notes reviewed: EMS notes. ECG per my interpretation: Indication was weakness and possible stroke. The ECG shows a ventricular pacemaker with a rate of 86. There is a PVC noted. There is no concerning ST elevation. The QTc is 540. Continuous Cardiac Monitoring per my interpretation: An order was placed for continuous cardiac monitoring. The monitor shows a rate of 88 with ventricular pacing. Imaging/x-ray results per my interpretation: Chest x-ray does not show CHF or pneumonia. No mediastinal widening. Chronic Medical/Social conditions affecting care: Obesity. Advanced age. Care/Management discussed with: General surgery-Dr. Terrance Emanuel, on-call GI- Vasquez Servin, [facility] in [place] triage physician-Dr. Oliveros Level of care consideration(s): After review of the information above and other included data: Admission and escalation of care to a tertiary care center Critical Care Note: I have personally spent 53 minutes of critical care time in the direct management of this patient. This includes bedside care, interpretation of diagnostic studies, and testing, discussion with consultants, patient, and family members, and other required patient management activities. This 53 minutes is in excess of all separately billable procedures. DISPOSITION: Admitted to our facility with transfer to a tertiary care center, [facility], when a bed becomes available. Past Med/Surg History Medical History GI bleed GI bleed Anemia of chronic disease CHF (congestive heart failure) History of COVID-19 02/2021>NO SYMPTOMS *TESTED AT [facility] Chronic GI bleeding Pacemaker Chronic diastolic CHF (congestive heart failure) Hx of gout History of prostate cancer radiation seeds History of colon polyps Osteoarthritis Diverticular disease GERD (gastroesophageal reflux disease) Diabetes mellitus, type 2 Anemia IRON INFUSIONS EVERY OTHER WEEK Hyperlipidemia Hypertension Chronic obstructive pulmonary disease On home oxygen therapy 2L N/C AT HS WITH CPAP Sleep apnea CPAP WITH O2 AT 2L Psoriasis Obesity CKD (chronic kidney disease), stage IV SNOW (iron deficiency anemia) IDDM (insulin dependent diabetes mellitus) TIA (transient ischemic attack) Psoriatic arthritis Surgical History History of cardiac cath had 4 total--last 2015 @ [facility] History of colonoscopy History of esophagogastroduodenoscopy (EGD) History of heart artery stent x6 stents total History of prostate biopsy malignant History of tooth extraction S/P CABG x 3 2008 @ [facility]---follows with Dr. Rolon Status post LASIK surgery of both eyes Family History Son Family history of diabetes mellitus Other No family history of adverse response to anesthesia Social History Smoking Status: Former smoker Tobacco Type: Cigarettes Second Hand Exposure: No; Do You Dip or Chew Tobacco: No; Hx Alcohol Use: No Hx Substance Use: No Preferred Language: Khmer Communication Ability: Effective Milk Vendor Required: No Beliefs That Will Affect Care: None marital status: Current Living Situation: Spouse and Family Current Living Situation Comment: /SON [employer] GRANDSON How many Children do You have: 2 Feels Safe at Home: Yes Assistive Devices: Glasses, Oxygen - at Night, Walker and Wheelchair Allergies Allergies Allergy/AdvReac Type Severity Reaction Status Date / Time methylprednisolone AdvReac Severe AMS Verified 02/03/23 17:57 hydromorphone [From Dilaudid] AdvReac Intermediate Nausea Verified 02/03/23 17:57 prednisone AdvReac Intermediate INCREASE Verified 02/03/23 17:57 BLOOD SUGAR Home Meds Home Medications Medication Instructions Recorded Confirmed atorvastatin 80 mg tablet 80 mg PO QPM 11/13/17 02/03/23 fluticasone propionate 50 2 spray intranasal DAILY 11/13/17 02/03/23 mcg/actuation nasal spray,suspension (Flonase Allergy Relief) insulin degludec 200 unit/mL (3 100 unit subcut QAM 11/13/17 02/03/23 mL) subcutaneous pen (Tresiba FlexTouch U-200 insulin) nitroglycerin 0.4 mg sublingual 0.4 mg sublingual DIRECTED PRN 11/13/17 02/03/23 tablet (Nitrostat) Chest Pain etanercept 50 mg/mL (1 mL) 1 dose subcut WK 04/10/18 02/03/23 subcutaneous pen injector (Enbrel SureClick) furosemide 80 mg tablet (Lasix) 80 mg PO QAM 04/20/18 02/03/23 allopurinol 300 mg tablet 300 mg PO DAILY 06/09/20 02/03/23 aspirin 81 mg tablet,delayed 81 mg PO DAILY 06/09/20 02/03/23 release (Beba Low Dose Aspirin) folic acid 1 mg tablet 1 mg PO DAILY 06/09/20 02/03/23 insulin aspart U-100 100 unit/mL 0 unit subcut TIDM 10/29/20 02/03/23 (3 mL) subcutaneous pen (Novolog FlexPen U-100 Insulin aspart) Lactobacillus acidophilus 10 10,000 mmu cells PO DAILY 05/19/21 02/03/23 billion cell capsule (Probiotic) tamsulosin 0.4 mg capsule 0.4 mg PO DAILY 06/27/21 02/03/23 albuterol sulfate 90 mcg/actuation 2 puff inhalation Q4H PRN 09/20/21 02/03/23 aerosol inhaler (ProAir HFA) COUGH/SHORTNESS OF BREATH betamethasone dipropionate 0.05 % 1 applic topical BID PRN ECZEMA 09/20/21 02/03/23 topical cream FLARE UPS octreotide acetate 50 mcg/mL 50 mcg subcut BID 09/20/21 02/03/23 injection solution triamcinolone acetonide 0.1 % 1 applic topical BID PRN Skin 09/20/21 02/03/23 topical ointment Irritation albuterol sulfate 2.5 mg/3 mL 2.5 mg inhalation DIRECTED PRN 02/03/23 02/03/23 (0.083 %) solution for nebulization Shortness Of Breath Or Wheezing cephalexin 500 mg capsule 500 mg PO BID 02/03/23 02/03/23 diclofenac sodium 1 % topical gel 2 g topical BID 02/03/23 02/03/23 ezetimibe 10 mg tablet (Zetia) 10 mg PO DAILY 02/03/23 02/03/23 guaifenesin 600 mg tablet, 600 mg PO Q12H PRN Congestion 02/03/23 02/03/23 extended release 12 hr (Mucinex) isosorbide mononitrate 60 mg 60 mg PO QAM 02/03/23 02/03/23 tablet,extended release 24 hr lifitegrast 5 % eye drops in a 1 drp OPB BID 02/03/23 02/03/23 dropperette (Xiidra) liraglutide 0.6 mg/0.1 mL (18 mg/3 1.8 mg subcut DAILY 02/03/23 02/03/23 mL) subcutaneous pen injector (Every1Mobile 3-Kei) Previous Rx's Medication Instructions Recorded omeprazole 20 mg tablet,delayed 20 mg PO BID #60 tabs 10/14/19 release cholecalciferol (vitamin D3) 125 5,000 unit PO QAM #30 tabs 10/05/21 mcg (5,000 unit) tablet Results & Data (ED) Vital Signs Vital Signs - 24 hr 02/03/23 11:56 02/03/23 11:56 02/03/23 11:56 Temperature 36.7 C Temperature Source Temporal Artery Scan Pulse Rate 84 Pulse Rate [Finger] Pulse Rhythm [Finger] Respiratory Rate 16 18 Respiratory Effort / Characteristics Respiratory Depth Respiratory Pattern Blood Pressure 113/69 Blood Pressure [Right Arm] Blood Pressure Mean 83 Blood Pressure Mean [Right Arm] Blood Pressure Position [Right Arm] Pulse Oximetry 95 Oxygen Delivery Method Room Air Sepsis Recent Fever Within 48 Hours No Sepsis New/Unexplained Change in Mental Status N/A Sepsis Action Taken by Nursing No Action Required 02/03/23 12:24 02/03/23 13:50 02/03/23 14:40 Temperature Temperature Source Pulse Rate 88 Pulse Rate [Finger] 95 H 96 H Pulse Rhythm [Finger] Regular Regular Respiratory Rate 18 18 Respiratory Effort / Characteristics Non-Labored Spontaneous Non-Labored Spontaneous Respiratory Depth Normal Normal Respiratory Pattern Regular Regular Blood Pressure Blood Pressure [Right Arm] 138/62 135/67 Blood Pressure Mean Blood Pressure Mean [Right Arm] 87 89 Blood Pressure Position [Right Arm] Sitting Sitting Pulse Oximetry 96 97 Oxygen Delivery Method Room Air Room Air Sepsis Recent Fever Within 48 Hours Sepsis New/Unexplained Change in Mental Status Sepsis Action Taken by Nursing 02/03/23 18:00 Temperature Temperature Source Pulse Rate Pulse Rate [Finger] 96 H Pulse Rhythm [Finger] Respiratory Rate 18 Respiratory Effort / Characteristics Respiratory Depth Respiratory Pattern Blood Pressure Blood Pressure [Right Arm] 115/79 Blood Pressure Mean Blood Pressure Mean [Right Arm] 91 Blood Pressure Position [Right Arm] Pulse Oximetry 98 Oxygen Delivery Method Room Air Sepsis Recent Fever Within 48 Hours Sepsis New/Unexplained Change in Mental Status Sepsis Action Taken by Detention Medications Current Medication List: was personally reviewed by me Laboratory Data Attestation: I reviewed the patient's lab results. 02/03/23 12:20 02/03/23 12:20 Lab Results 02/03/23 02/03/23 02/03/23 Range/Units 12:20 14:18 14:31 WBC 12.52 H (4.8-10.8) K/ul RBC 3.71 L (4.70-6.10) M/uL Hgb 10.9 L (14.0-18.0) g/dl Hct 33.9 L (42.0-52.0) % MCV 91.4 (80.0-100.0) fL MCH 29.4 (25.0-34.0) pg MCHC 32.2 (32.0-36.0) g/dL RDW Std Deviation 53.7 H (36.4-46.3) fL RDW Coeff of Joey 16.2 H (11.5-14.5) % Plt Count 210 (130-400) K/uL MPV 9.8 (9.4-12.4) fL Immature Gran % (Auto) 0.4 % Neut % (Auto) 89.8 % Lymph % (Auto) 6.4 % [place] % (Auto) 2.6 % Eos % (Auto) 0.4 % Baso % (Auto) 0.4 % Neut # (Auto) 11.25 H (1.40-6.50) K/uL Lymph # (Auto) 0.80 L (1.20-3.40) K/uL [place] # (Auto) 0.32 (0.11-0.59) K/uL Eos # (Auto) 0.05 (0.00-0.50) K/uL Baso # (Auto) 0.05 (0.00-0.20) K/uL Immature Gran # (Auto) 0.05 (0.01-0.20) K/uL PT 11.5 (9.0-12.0) Seconds INR 1.1 (0.9-1.1) APTT 28 (21-31) Seconds PTT Ratio 1.0 Sodium 136 (136-145) mmol/L Potassium 3.9 (3.5-5.1) mmol/L Chloride 98 (98-107) mmol/L Carbon Dioxide 29 (21-32) mmol/L Anion Gap 9 (3-11) BUN 34 H (6-23) mg/dl Creatinine 2.01 H (0.6-1.4) mg/dl Est Cr Clr Drug Dosing Not Reportable Est GFR ( Amer) 35.3 ml/min Est GFR (Non-Af Amer) 30.4 ml/min BUN/Creatinine Ratio 16.9 (10-20) Glucose 83 (70-99(Fasting)) mg/dl POC Glucose (70-99) mg/dl Lactate 1.6 (0.4-2.0) mmol/L Calcium 8.3 L (8.6-10.3) mg/dl Magnesium 1.8 (1.7-2.4) mg/dl Total Bilirubin 3.7 H (0.2-1.0) mg/dl AST 335 H (13-39) U/L ALT 233 H (7-52) U/L Alkaline Phosphatase 430 H (34-104) U/L Troponin I High Sens 14.8 (0-20) pg/ml Total Protein 6.7 (6.0-8.3) gm/dl Albumin 3.4 (3.4-5.0) gm/dl Globulin 3.3 (2.5-4.0) gm/dl Albumin/Globulin Ratio 1.0 (0.9-2) Lipase 45 (11-82) U/L Urine Color Dark Yellow Urine Appearance Clear (Clear) Urine pH 7.0 (4.5-7.5) Ur Specific [place] 1.014 (1.000-1.030) Urine Protein 3+ H (Negative) Urine Glucose (UA) Negative (Negative) Urine Ketones Negative (Negative) Urine Blood Negative (Negative) Urine Nitrite Negative (Negative) Urine Bilirubin 1+ H (Negative) Urine Urobilinogen Positive H (Negative) Ur Leukocyte Esterase 1+ H (Negative) Urine WBC (Auto) 10-30 H (0-5) /hpf Urine RBC (Auto) 0-4 (0-4) /hpf U Hyaline Cast (Auto) 1-5 (0-5) /lpf U Epithel Cells (Auto) 20-30 H (0-5) /lpf Urine Bacteria (Auto) Negative (Negative) 02/03/23 Range/Units 18:26 WBC (4.8-10.8) K/ul RBC (4.70-6.10) M/uL Hgb (14.0-18.0) g/dl Hct (42.0-52.0) % MCV (80.0-100.0) fL MCH (25.0-34.0) pg MCHC (32.0-36.0) g/dL RDW Std Deviation (36.4-46.3) fL RDW Coeff of Joey (11.5-14.5) % Plt Count (130-400) K/uL MPV (9.4-12.4) fL Immature Gran % (Auto) % Neut % (Auto) % Lymph % (Auto) % [place] % (Auto) % Eos % (Auto) % Baso % (Auto) % Neut # (Auto) (1.40-6.50) K/uL Lymph # (Auto) (1.20-3.40) K/uL [place] # (Auto) (0.11-0.59) K/uL Eos # (Auto) (0.00-0.50) K/uL Baso # (Auto) (0.00-0.20) K/uL Immature Gran # (Auto) (0.01-0.20) K/uL PT (9.0-12.0) Seconds INR (0.9-1.1) APTT (21-31) Seconds PTT Ratio Sodium (136-145) mmol/L Potassium (3.5-5.1) mmol/L Chloride (98-107) mmol/L Carbon Dioxide (21-32) mmol/L Anion Gap (3-11) BUN (6-23) mg/dl Creatinine (0.6-1.4) mg/dl Est Cr Clr Drug Dosing Est GFR ( Amer) ml/min Est GFR (Non-Af Amer) ml/min BUN/Creatinine Ratio (10-20) Glucose (70-99(Fasting)) mg/dl POC Glucose 86 (70-99) mg/dl Lactate (0.4-2.0) mmol/L Calcium (8.6-10.3) mg/dl Magnesium (1.7-2.4) mg/dl Total Bilirubin (0.2-1.0) mg/dl AST (13-39) U/L ALT (7-52) U/L Alkaline Phosphatase (34-104) U/L Troponin I High Sens (0-20) pg/ml Total Protein (6.0-8.3) gm/dl Albumin (3.4-5.0) gm/dl Globulin (2.5-4.0) gm/dl Albumin/Globulin Ratio (0.9-2) Lipase (11-82) U/L Urine Color Urine Appearance (Clear) Urine pH (4.5-7.5) Ur Specific [place] (1.000-1.030) Urine Protein (Negative) Urine Glucose (UA) (Negative) Urine Ketones (Negative) Urine Blood (Negative) Urine Nitrite (Negative) Urine Bilirubin (Negative) Urine Urobilinogen (Negative) Ur Leukocyte Esterase (Negative) Urine WBC (Auto) (0-5) /hpf Urine RBC (Auto) (0-4) /hpf U Hyaline Cast (Auto) (0-5) /lpf U Epithel Cells (Auto) (0-5) /lpf Urine Bacteria (Auto) (Negative) Administered Medications Discontinued Medications Sodium Chloride (Nss) 500 mls @ 999 mls/hr IV .Q31M ONE Stop: 02/03/23 14:30 Last Infusion: 02/03/23 16:27 Dose: Infused Documented By: Admin: 02/03/23 15:53 Dose: 999 mls/hr Documented By: ABE Cefepime HCl (Maxipime) 2,000 mg in 20 mls @ 5 mls/min IV NOW STA; Protocol Stop: 02/03/23 14:03 Last Admin: 02/03/23 15:53 Dose: 5 mls/min Documented By: ABE Imaging Data Radiologist's Impression: Chest X-Ray 02/03/23 13:09 XR chest 1V portable CLINICAL HISTORY: neuro deficit, acute stroke suspected TECHNIQUE: Single frontal radiograph of the chest was obtained. Comparison: Comparison is made to chest radiograph 10/03/2021 FINDINGS: Lines and tubes are stable. The cardiomediastinal silhouette is normal. The lungs are clear. No evidence of pleural effusion or pneumothorax. IMPRESSION: No acute chest disease. ACT 112: Negative or not required by law. Electronically signed by: Madhav Hare M.D. 02/03/2023 2:[address] 02/03/23 13:09 CT OF THE HEAD WITHOUT CONTRAST CLINICAL HISTORY: neuro deficit, acute stroke suspected. Right-sided weakness. COMPARISON STUDY: Head CT October 03, 2021. MRI of the brain October 25, 2016. CT DOSE: 657.02 mGy.cm TECHNIQUE: Helical axial images of the head were obtained without IV contrast. Automated exposure control was utilized for the study. A dose lowering technique was utilized adhering to the principles of ALARA. FINDINGS: No acute intracranial hemorrhage, midline shift or mass effect is present. The ventricular system is unremarkable. The basal cisterns are patent. No extra-axial collections are present. There are no findings to suggest acute dural sinus thrombosis or acute territorial infarct. White matter hypodensities favor small vessel disease. No calvarial fractures are present. Moderate ethmoid sinus mucosal thickening is noted. There is a small air-fluid level within the right maxillary sinus. IMPRESSION: No acute intracranial findings. ACT 112: Negative or not required by law. Electronically signed by: Vitaly Tadeo M.D. 02/03/2023 1:33 PM Abdomen/Pelvis CT 02/03/23 14:[address] WITHOUT CONTRAST CT DOSE: 1352.6 mGy.cm HISTORY: Right upper quadrant pain. TECHNIQUE: Multiaxial CT images of the abdomen and pelvis were performed without contrast. A dose lowering technique was utilized adhering to the principles of ALARA. COMPARISON STUDY: Abdomen and pelvis CT 09/20/2021. FINDINGS: There is a punctate calcified granuloma within the right lower lobe. No pneumoperitoneum. No pneumatosis. No acute fractures identified. There are poststernotomy changes and pacemaker wires again noted. The unenhanced liver, spleen, adrenal glands, pancreas, and right kidney are unremarkable. No renal or ureteral stones. No hydronephrosis. There is a stable 6 mm hyperdense lesion within the lower pole of the left kidney. This is incompletely characterized on this noncontrast study but favors a hyperdense cyst given the stability. Moderate calcified plaque within the normal caliber abdominal aorta. The gallbladder is mildly distended. There is minimal pericholecystic inflammatory change suggested. Therefore, this raises the possibility of an early acute cholecystitis. There are a few punctate stones within the gallbladder lumen. The common bile duct is mildly distended up to 1 cm. Stable prominent iliac chain lymph nodes again noted. No inguinal lymphadenopathy. No pelvic free fluid. Multiple brachytherapy seeds within the prostate gland. The bladder is unremarkable. Colonic diverticulosis. No evidence for acute diverticulitis. No bowel wall thickening or obstruction. Normal appendix. IMPRESSION: 1. The gallbladder is mildly distended. There is minimal pericholecystic inflammatory change suggested. Therefore, this raises the possibility of an early acute cholecystitis. Follow-up ultrasound or HIDA scan can be performed for further evaluation. 2. Probable cholelithiasis. 3. The common bile duct is mildly distended with a 1 cm. 4. No bowel wall thickening or obstruction. 5. Colonic diverticulosis. No evidence for acute diverticulitis. ACT 112: Negative or not required by law. Electronically signed by: Josue Mahoney M.D. 02/03/2023 2:53 PM Gallbladder Ultrasound 02/03/23 15:18 US gallbladder CLINICAL HISTORY: cholecystitis TECHNIQUE: Multiple real-time sonographic images of the right upper quadrant were obtained. Comparison: Comparison is made to CT abdomen pelvis 02/03/2023 FINDINGS: Exam is limited by patient body habitus. The liver is diffusely homogenous with normal contour and echogenicity. No focal mass lesions are seen. No intrahepatic ductal dilatation is seen. Gallbladder is distended, gallbladder wall measures 3.6 mm with sludge noted. No definite stones are seen although evaluation is limited. A sonographic Gutierrez's sign was not elicited by the glass pulverizer equipment operator. The common duct measures 1.1 cm in diameter at the level of the hepatic artery. The visualized portions of the pancreas appear normal. The right kidney shows normal echogenicity, cortical thickness and renal contour. The right kidney shows no evidence of hydronephrosis or mass. No ascites or free fluid is seen in Antonio's pouch. IMPRESSION: Limited exam. Gallbladder sludge without evidence of acute cholecystitis. ACT 112: Negative or not required by law. Electronically signed by: Madhav Hare M.D. 02/03/2023 5:01 PM Discharge Plan Visit Data Chief Complaint: Stroke/CVA Symptoms ED Provider: Jose Camacho Discharge Problem: Acute cholecystitis, Leukocytosis, Elevated liver enzymes, Stroke-like symptoms, ESA (acute kidney injury) Patient Disposition: Admitted As Inpatient Condition: Fair Forms Stand Alone Forms: My [employer] Prescriptions Prescriptions: No Action Enbrel SureClick 50 mg/mL (0.98 mL) Pen Injector 1 dose subcut WK Rx Instructions: TAKES ON . furosemide [Lasix] 80 mg Tablet 80 mg PO QAM insulin degludec [Tresiba FlexTouch U-200] 200 unit/mL (3 mL) Insulin Pen 100 unit SUBCUT QAM atorvastatin 80 mg Tablet 80 mg PO QPM nitroglycerin [Nitrostat] 0.4 mg Tablet, Sublingual 0.4 mg Sublingual DIRECTED PRN (Reason: Chest Pain) Rx Instructions: ONE TABLET UNDER THE TONGUE EVERY 5 MINUTES UP TO 3 DOSES. fluticasone propionate [Flonase Allergy Relief] 50 mcg/actuation [place],Suspension 2 spray INTRANASAL DAILY Rx Instructions: EACH NOSTRIL omeprazole 20 mg Tablet,Delayed Release (Dr/Ec) 20 mg PO BID Qty: 60 1RF aspirin [Beba Low Dose Aspirin] 81 mg Tablet,Delayed Release (Dr/Ec) 81 mg PO DAILY Patient Comments: QAM folic acid 1 mg tablet 1 mg PO DAILY allopurinol 300 mg tablet 300 mg PO DAILY Patient Comments: QAM insulin aspart U-100 [Novolog FlexPen U-100 Insulin] 100 unit/mL (3 mL) insulin pen 0 unit SUBCUT TIDM Patient Comments: patient states he took 40 units total yesterday. Rx Instructions: plus sliding scale: TAKES 12 UNITS WITH BREAKFAST AND SUPPER, WITH CORRECTION FACTOR OF 1:25 IF OVER 140 MG/DL. UP TO 120 UNITS DAILY. Probiotic 10 billion cell Capsule 10,000 mmu cells PO DAILY tamsulosin 0.4 mg capsule 0.4 mg PO DAILY octreotide acetate 50 mcg/mL solution 50 mcg subcut BID triamcinolone acetonide 0.1 % Ointment 1 applic TOPICAL BID PRN (Reason: Skin Irritation) betamethasone dipropionate 0.05 % Cream 1 applic TOPICAL BID PRN (Reason: ECZEMA [employer]) albuterol sulfate [ProAir HFA] 90 mcg/actuation Hfa Aerosol Inhaler 2 puff INHALATION Q4H PRN (Reason: COUGH/SHORTNESS OF BREATH) cholecalciferol (vitamin D3) 125 mcg (5,000 unit) Tablet 5,000 unit PO QAM Qty: 30 0RF albuterol sulfate 2.5 mg /3 mL (0.083 %) Solution For Nebulization 2.5 mg INHALATION DIRECTED PRN (Reason: Shortness Of Breath Or Wheezing) isosorbide mononitrate 60 mg tablet extended release 24 hr 60 mg PO QAM cephalexin 500 mg capsule 500 mg PO BID Rx Instructions: STARTED 02/01/23 FOR 10 DAYS ezetimibe [Zetia] 10 mg Tablet 10 mg PO DAILY diclofenac sodium [Voltaren] 1 % Gel 2 g TOPICAL BID Rx Instructions: APPLY TO LOWER BACK Victoza 3-Kei 0.6 mg/0.1 mL (18 mg/3 mL) pen injector 1.8 mg SUBCUT DAILY guaifenesin [Mucinex] 600 mg Tablet Extended Release 12hr 600 mg PO Q12H PRN (Reason: Congestion) Xiidra 5 % Dropperette 1 drp OPB BID Rx Instructions: administer approximately 12 hours apart Referrals Referrals: Nicola Prado MD [Primary Care Provider] - Discharge Problem: Leukocytosis Qualifiers: Leukocytosis type: unspecified Qualified Code(s): D72.829 - Elevated white blood cell count, unspecified
[2023-02-03 14:26] LABS: Lipase 45 U/L (11-82)
--- NOTE | 2023-02-03 14:55 | CT Scan Report ---
ABDOMEN AND PELVIS CT WITHOUT CONTRAST CT DOSE: 1352.6 mGy.cm HISTORY: Right upper quadrant pain. TECHNIQUE: Multiaxial CT images of the abdomen and pelvis were performed without contrast. A dose lo wering technique was utilized adhering to the principles of ALARA. COMPARISON STUDY: Abdomen and pelvis CT 09/20/2021. FINDINGS: There is a punctate calcified granuloma within the right lower lobe. No pneumoperitoneum. N o pneumatosis. No acute fractures identified. There are poststernotomy changes and pacemaker wires ag ain noted. The unenhanced liver, spleen, adrenal glands, pancreas, and right kidney are unremarkable. No renal or ureteral stones. No hydronephrosis. There is a stable 6 mm hyperdense lesion within the lower pole of the left kidney. This is incompletely characterized on this noncontrast study but favor s a hyperdense cyst given the stability. Moderate calcified plaque within the normal caliber abdomina l aorta. The gallbladder is mildly distended. There is minimal pericholecystic inflammatory change cole ggested. Therefore, this raises the possibility of an early acute cholecystitis. There are a few punc gonzalez stones within the gallbladder lumen. The common bile duct is mildly distended up to 1 cm. Stable prominent iliac chain lymph nodes again noted. No inguinal lymphadenopathy. No pelvic free fluid. Mu ltiple brachytherapy seeds within the prostate gland. The bladder is unremarkable. Colonic diverticul osis. No evidence for acute diverticulitis. No bowel wall thickening or obstruction. Normal appendix. IMPRESSION: 1. The gallbladder is mildly distended. There is minimal pericholecystic inflammatory change suggeste d. Therefore, this raises the possibility of an early acute cholecystitis. Follow-up ultrasound or HI DA scan can be performed for further evaluation. 2. Probable cholelithiasis. 3. The common bile duct is mildly distended with a 1 cm. 4. No bowel wall thickening or obstruction. 5. Colonic diverticulosis. No evidence for acute diverticulitis. ACT 112: Negative or not required by law. Electronically signed by: Josue Mahoney M.D. 02/03/2023 2:53 PM
[2023-02-03 14:57] LABS: Appearance Urine Clear (Clear); Bacteria Urine Automated Negative (Negative); Blood Urine Negative (Negative); Color Urine Dark Yellow; Epithelial Cell Urine Auto 20-30 /lpf (0-5); Glucose Urine UA Negative (Negative); Ketones Urine Negative (Negative); Leukocyte Esterase Urine 1+ (Negative); Nitrite Urine Negative (Negative); Protein Urine 3+ (Negative); RBC Urine Automated 0-4 /hpf (0-4); Specific Gravity Urine 1.014 (1.000-1.030); Urobilinogen Urine Positive (Negative)
[2023-02-03 15:19] LABS: Bilirubin Urine 1+ (Negative)
--- NOTE | 2023-02-03 17:03 | Ultrasound Report ---
US gallbladder CLINICAL HISTORY: cholecystitis TECHNIQUE: Multiple real-time sonographic images of the right upper quadrant were obtained. Comparison: Comparison is made to CT abdomen pelvis 02/03/2023 FINDINGS: Exam is limited by patient body habitus. The liver is diffusely homogenous with normal contour and ec hogenicity. No focal mass lesions are seen. No intrahepatic ductal dilatation is seen. Gallbladde r is distended, gallbladder wall measures 3.6 mm with sludge noted. No definite stones are seen altho ugh evaluation is limited. A sonographic Gutierrez's sign was not elicited by the packing room supervisor. The com mon duct measures 1.1 cm in diameter at the level of the hepatic artery. The visualized portions of the pancreas appear normal. The right kidney shows normal echogenicity, cortical thickness and renal contour. The right kidney sh ows no evidence of hydronephrosis or mass. No ascites or free fluid is seen in Antonio's pouch. IMPRESSION: Limited exam. Gallbladder sludge without evidence of acute cholecystitis. ACT 112: Negative or not required by law. Electronically signed by: Madhav Hare M.D. 02/03/2023 5:01 PM
--- OUTSIDE RECORDS SUMMARY | 2023-02-03 20:13 | External Medical Summary | Summary of Care ---
Author Name Unknown Organization [facility] Address [address] [place] [address] Phone [phone] Care Team Providers Care Blank Driller Name Role Phone Nicola Prado MD Primary Care Provide r Reason for Visit * Reason Onset Date Comments Test Results 01/31/2023 Encounter Details Date Type Department Care Team (Late st Contact Info) Description 01/31/[address] [phone] Nicola Prado MD [address] [place] [address] [place] [id number] Test Results Allergies Active Allergy Reactions Criticality Noted Date Comments Hydromorphone High 09/20/2021 Other reaction(s): Nausea Other reaction(s): Nausea 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/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 Other reaction(s): AMS Other reaction(s): AMS Prasugrel 04/02/2016 bleeding Prednisone High 09/20/2021 Other reaction(s): INCREASE BLOOD SUGAR Other reaction(s): INCREASE BLOOD SUGAR documented as of this encounter (statuses as of 02/02/2023) Medications Medication Sig Dispensed Refills Start Date End Date Status ASPIRIN 81 MG PO CHEWIndications:Unst able angina (HCC),Chronic coronary artery disease,Difficult intubation 1 Tab Oral Daily 1 0 07/21/2008 Active Fluticasone Propionate 50 MCG/ACT Nasal Suspension (Flonase) Administer 2 Sprays into nostril in the morning. 0 Active Folic Acid 1 MG Oral TabletIndications:Ir on deficiency anemia due to chronic blood loss,Folic acid deficiency,B12 deficiency Take 1 TabLET by mouth daily. 30 Tablet 11 04/27/2021 Active Betamethasone Dipropionate 0.05 % External OintmentIndications: Plaque psoriasis,Asteatotic eczema Apply 2x daily to rash on back/abdomen/arms /legs until resolved, then when flaring again 100 g 0 05/11/2021 Active Probiotic Daily Oral Capsule Take by mouth 1 Capsule in the morning. 0 Active Vitamin D3 125 MCG (5000 UT) Oral Capsule Take 1 Capsule by mouth in the morning. 0 Active CPAP every night at bedtime . 2 Liters 0 Active Diclofenac Sodium 1 % External Gel (Voltaren) Apply topically to affected area 2 g in the morning AND 2 g before bedtime. Apply to affected area of lower back up to twice a day as needed for pain. Wash hands after.. 100 g 1 10/30/2021 Active Triamcinolone Acetonide 0.1 % External Ointment (Aristocort)Indicati ons:Plaque psoriasis Apply to rash on trunk/arms/legs 2x daily (when thinner and less noticeable and less bothersome) until resolved, then when flaring 454 g 1 12/14/2021 Active Xiidra 5 % Ophthalmic Solution instill 1 drop by ophthalmic route 2 times every day into both eyes. OK for 90 day supply. 0 01/05/2022 Active Tamsulosin HCl 0.4 MG Oral Capsule (Flomax)Indications: Lower urinary tract symptoms Take 1 Capsule by mouth in the morning. 90 Capsule 3 04/13/2022 Active Nitroglycerin 0.4 MG Sublingual Tablet Sublingual (Nitrostat) 1 every 5 minutes as needed with chest pain up to 3 doses in 15 minutes 25 Tablet 1 05/05/2022 Active Victoza 18 MG/3ML Subcutaneous Solution Pen-injector (Liraglutide)Indicat ions:Type 2 diabetes mellitus with hemoglobin A1c goal of less than 8.0% ([facility]),Type 2 diabetes mellitus with stage 4 chronic kidney disease, with long-term current use of insulin ([facility]) Inject 1.8 mg under the skin daily. 27 mL 3 07/23/2022 Active Furosemide 80 MG Oral Tablet (Lasix) Take 1 Tablet by mouth in the morning. 90 Tablet 1 08/05/2022 Active Atorvastatin Calcium 80 MG Oral Tablet (Lipitor)Indications :Dyslipidemia, goal LDL below 70 Take 1 Tablet by mouth daily. 90 Tablet 0 10/13/2022 Active guaiFENesin ER 600 MG Oral Tablet Extended Release 12 Hour (Mucinex)Indications :COPD exacerbation (HCC) Take 1 Tablet by mouth 2 times a day as needed for Congestion. Take with plenty of water. Do not cut, crush or chew 40 Tablet 0 10/13/2022 Active Tresiba FlexTouch 200 UNIT/ML Subcutaneous Solution Pen-injector (Insulin Degludec)Indications :Type 2 diabetes mellitus with hemoglobin A1c goal of less than 8.0% ([facility]) Inject 100 Units under the skin daily. 90 mL 3 10/25/2022 Active Octreotide Acetate 50 MCG/ML Injection Solution (Sandostatin) Inject 50mcg under the skin in the morning and the evening. 180 mL 1 11/01/2022 Active Omeprazole 20 MG Oral Capsule Delayed Release (PriLOSEC) Take 1 Capsule BY MOUTH in the morning AND 1 Capsule before bedtime. 60 Capsule 3 11/04/2022 Active Isosorbide Mononitrate ER 60 MG Oral Tablet Extended Release 24 Hour (Imdur)Indications:C hronic diastolic heart failure (HCC) Take 1 Tablet by mouth in the morning. 90 Tablet 3 11/19/2022 Active Enbrel SureClick 50 MG/ML Subcutaneous Solution Auto-injector (Etanercept)Indicati ons:H/O psoriasis,Polyarticu lar psoriatic arthritis (HCC) Inject 50 mg under the skin once a week. 4 mL 1 11/17/2022 Active Albuterol Sulfate HFA 108 (90 Base) MCG/ACT Inhalation Aerosol SolutionIndications: COPD exacerbation (HCC),Chronic cough Inhale 2 Puffs by mouth every 4 hours as needed for Cough or Shortness of Breath. 18 g 2 12/01/2022 Active oxygen IN GAS Use 2 L/min(Oxygen) as directed in the morning. 2.5 LPMBled through bipap And 2 LPM with exertion. (Patient is using 2 LPM with CPAP, and 3 LPM with exertion/activity ) DME: [facility]. 0 12/02/2022 Active Easy Touch Pen Potlatch 31G X 8 MM (Insulin Pen Needle)Indications:T ype 2 diabetes mellitus with hemoglobin A1c goal of less than 8.0% (HCC),Type 2 diabetes mellitus with stage 4 chronic kidney disease, unspecified whether skilled nursing insulin use (HCC) Use up to eight times daily with insulin. DXe11.9 600 Each 3 12/07/2022 Active Allopurinol 300 MG Oral Tablet (Zyloprim) Take 1 Tablet by mouth daily. 90 Tablet 1 12/17/2022 Active NovoLOG FlexPen 100 UNIT/ML Subcutaneous Solution Pen-injector (insulin aspart)Indications:T ype 2 diabetes mellitus with hemoglobin A1c goal of less than 8.0% ([facility]) Inject 12 units with breakfast and supper PLUS correction factor of 1:25 if over 140 mg/dL. Up to 120 units per day. 110 mL 3 12/28/2022 Active Amaranth Medicaluch UltraSoft LancetsIndications:T ype 2 diabetes mellitus with hemoglobin A1c goal of less than 8.0% ([facility]) Test blood sugar up to five times daily; dx E11.9 450 Each 3 01/02/2023 Active Amaranth Medicaluch Ultra In Vitro Strip (Glucose Blood)Indications:Ty pe 2 diabetes mellitus with hemoglobin A1c goal of less than 8.0% ([facility]) Test 3-4 times a day 100 Strip 3 01/11/2023 Active eMazeMe No Coding Blood Gluc In Vitro Strip (Glucose Blood) Use as directed to test blood sugars up to four times daily DxE11.9 400 Strip 3 01/12/2023 Active eMazeMe Voice Blood Glucose w/Device Kit Use as directed to test blood sugars up to four times daily DxE11.9 1 Kit 0 01/12/2023 Active BD TB Syringe 27G X 1/2" 1 ML (Tuberculin Syringe) To be used with Octreotide. 60 Each 0 01/21/2023 Active Ezetimibe 10 MG Oral Tablet (Zetia) Take 1 Tablet by mouth daily. 90 Tablet 3 01/21/2023 Active Hospital, Clinic, or Other Facility Administered Medication Ordered Dose Route Frequency Start Date End Date Status Albuterol Sulfate (Proventil) (2.5 MG/3ML) 0.083% inhalation solution 2.5 mgIndications:Dyspnea and respiratory abnormalities 2.5 mg NEBULIZER PRN 05/18/2022 05/18/2023 Active documented as of this encounter (statuses as of 02/02/2023) Active Problems Problem Noted Date Diagnosed Date Atherosclerosis of [place] co ronary artery of [place] heart with stable angina pectoris 12/27/2022 Atherosclerosis of coronary artery bypass graft of [place] heart with angina pectoris 10/13/2022 Encounter for long-term (current) insulin use Hypertensive heart and kidne y disease with chronic diastolic congestive heart failure and stage 4 chronic kidney disease 04/08/2022 Current mild episode of sheryl r depressive disorder without prior episode 02/22/2022 Type 2 diabetes mellitus wit h stage 4 chronic kidney disease, with long-term current use of insulin 02/22/2022 CHB (complete heart block) 02/22/2022 Prostate cancer 02/22/2022 Stage 3b chronic kidney disease 02/22/2022 Plaque psoriasis 02/22/2022 HTN, goal below 140/90 01/21/2022 Macular degeneration of both eyes 12/17/2021 Anemia in stage 4 chronic kidney disease 022 Chronic pain of right hip 07/20/2021 Leg swelling 07/20/2021 Elevated prostate specific antigen (PSA) 022 H/O dysplastic nevus 05/14/2021 Overview: mildly atypical nevus (R central inferior upper back) Hx of nonmelanoma skin cancer 05/14/2021 Overview: basal cell carcinoma (R central superior upper back 05/05) S/P placement of cardiac pacemaker 07/10/2020 Atrioventricular block, Mobitz type 1, [place] h 06/09/2020 Vitamin B12 deficiency 05/30/2020 Polyarticular psoriatic arthritis 03/18/2020 Chronic respiratory failure with hypoxia 020 COPD, group D, by GOLD 2017 classification 03/27 Overview: Per COPD GOLD Classification Gout 02/22/2019 Overview: big toe uric acid 11.7 Chronic diastolic heart failure 02/21/2019 Pulmonary hypertension 11/04/2016 Henning's esophagus with dysplasia 06/24/2015 S/P primary angioplasty with coronary stent 08/15 Psoriatic arthropathy 12/16/2010 Obstructive sleep apnea of adult 08/21/2010 Overview: 11/11/10 changed settings of CPAP to 13 cm [facility] REENA-inhibitor cough 01/26/2010 Vitamin D deficiency 05/14/2009 Dyslipidemia 01/27/2009 Overview: Per Lipid Taxonomy. Type 2 diabetes mellitus wit h hemoglobin A1c goal of less than 8.0% 12/12/2008 Overview: Per Diabetes Taxonomy. ICD-10 update of inactive term Aortocoronary bypass status 09/12/2008 Iron deficiency anemia due to chronic blood loss 03/02/2007 Generalized osteoarthritis 05/04/2004 Psoriasis 02/05/2002 BPH without obstruction/lower urinary tract symp toms 07/13/2001 Atherosclerosis of [place] co ronary artery of [place] heart without angina pectoris documented as of this encounter (statuses as of 02/02/2023) Resolved Problems Problem Noted Date Diagnosed Date Resolved Date Morbid obesity with BMI of 40.0-44.9, adult 12/27/2022 12/27/2022 Encounter for central line care 08/05/2021 10/26/2021 Body mass index (BMI) of 40. 0 to 44.9 in adult 02/25/2020 03/18/2020 Overview: Per Obesity protocol - Per Obesity protocol - Per Obesity protocol - - Body mass index (BMI) of 45. 0 to 49.9 in adult 01/28/2020 02/28/2020 Overview: Per Obesity protocol - Per Obesity protocol - - Body mass index (BMI) of 40. 0 to 44.9 in adult 07/23/2019 01/31/2020 Overview: Per Obesity protocol - - Acute respiratory failure with hypoxemia 06/07/2019 07/19/2019 Encounter for surveillance of abnormal nevi 09/25/2018 02/19/2020 Overview: Moderately atypical nevus (central upper back) COPD, group B, by GOLD 2017 classification 07/24/2018 03/28/2019 Overview: Per COPD GOLD Classification 12/13/18 In Check dial performed to assess inhaler technique: Name of inhaler Albuterol Pass: Yes at 50L/min. Encourage to take nice slow deep breaths and use aero chamber. Test performed by Dori HOT METAL CRANE OPERATOR CPFT Body mass index (BMI) of 45. 0 to 49.9 in adult 06/26/2018 07/26/2019 Overview: Per Obesity protocol #1 - - COPD exacerbation 05/24/2018 08/15/2018 Body mass index (BMI) of 40. 0 to 44.9 in adult 05/22/2018 06/28/2018 Overview: Per Obesity protocol #1 - - Body mass index (BMI) of 45. 0 to 49.9 in adult 12/26/2017 05/24/2018 Overview: Per Obesity protocol #1 - Benign hypertensive heart an d kidney disease with diastolic CHF, NYHA class 2 and CKD stage 4 11/23/2017 02/19/2020 (HFpEF) heart failure with p reserved ejection fraction 09/06/2017 02/19/2020 Body mass index (BMI) of 40. 0 to 44.9 in adult 07/26/2017 12/30/2017 Overview: Per Obesity protocol #1 Body mass index (BMI) of 45. 0 to 49.9 in adult 04/26/2017 07/28/2017 Overview: Per Obesity protocol #1 Primary hypertension 01/27/2017 021 Type 2 diabetes mellitus wit h diabetic chronic kidney disease 11/10/2016 04/08/2022 Sinus tachycardia 11/04/2016 08/07/2018 CAPONE (dyspnea on exertion) 11/04/2016 TIA (transient ischemic attack) 02/04/2016 11/23/2017 Overview: [facility] Anemia of chronic renal failure 07/30/2015 01/27/2017 Hypertriglyceridemia 12/25/2014 021 COPD, moderate 10/04/2014 07/26/2018 Overview: PFT Iron deficiency anemia 04/17/201411/08 Chronic blood loss anemia 11/12/2013 Carpal tunnel syndrome 01/23/201311/10 Cervicalgia 01/23/2013 11/10/2016 Iron deficiency anemia 05/16/201211/02 COPD, mild 08/21/2010 11/08/2014 Kidney disease, chronic, sta ge III (GFR 30-59 ml/min) 12/31/2009 11/11/2016 Severe obesity with body mas s index (BMI) of 35.0 to 39.9 with serious comorbidity 07/28/2009 Overview: Per Obesity Protocol, #19 ICD-10 update of inactive diagnosis Type 2 diabetes mellitus wit h hemoglobin A1c goal of less than 7.0% 09/06/2008 09/06/2008 Overview: ICD-10 update of inactive term ACTIVE CASE MANAGEMENT 07/22/200812/01 Overview: Kianna Lyn, RN [phone] Examination following surgery 07/11/2008 12/31/2011 Difficult intubation 07/10/2008 021 Overview: Patient seen and examined in OR#1.Possible difficult intubation.TM distance about 5 cms.MP 3-4. Will plan FOB electively Due to current situation. EXAMINATION OF PARTICIPANT I N CLINICAL TRIAL-genomics 07/04/2008 05/30/2009 Overview: Renamed Per Clinical Trials Billing Project. Study Titile: Genomic Markers for Patients with Cardiovascular Disease Project #[id number] PI: Miraim Roque MD Please call [phone] with study related questions Chronic coronary artery disease 07/04/2008 11/08/2014 Overview: 1. Severe multivessel coronary artery disease: a. Critical 80% mid to distal left main stenosis. This was assessed by intravascular ultrasound, and the minimal cross sectional area was found to be 2.3 squared millimeters. b. 80% stenosis in the mid LAD at the takeoff of a large first diagonal branch. This lesion involves the ostium of this diagonal branch as well. c. 70% mid ramus intermedius stenosis. d. There is a long 70% stenosis in the proximal RCA followed by a discrete 80% stenosis in the distal RCA. 2. Mildly elevated left and right-sided filling pressures. 3. Mild pulmonary hypertension. 4. No evidence of constrictive or restrictive physiology. 5. Normal cardiac output. Unstable angina 07/04/2008 11/02/2013 DM type 2, not at goal 07/04/200809/06 GENOMICS CARDIO RESEARCH OTHER*[id number] 07/04/2008 03/23/2016 Overview: Renamed Per Clinical Trials Billing Project. Study Titile: Genomic Markers for Patients with Cardiovascular Disease Project #[id number] PI: Miriam Roque MD Please call [phone] with study related questions Kidney disease, chronic, sta ge III (GFR 30-59 ml/min) 07/03/2008 01/07/2009 Benign neoplasm of colon 10/10/2007 Overview: hyperplastic/repeat colnoscopy in 2 yrs History of tobacco use 09/20/200707/04 Migraine 11/30/2006 12/07/2017 Skin sensation disturbance 11/30/2006 1 Exertional dyspnea 11/30/2006 0 ADVANCE DIRECTIVE INFORMATION 11/03/2006 02/19/2020 Overview: No, Advance Directive brochure given to patient. MALIGN NEOPL PROSTATE 12/03/20032017 Tobacco use disorder 10/23/2001 008 ED 03/17/2001 11/10/2016 Chest pain 11/25/2000 08/07/2018 Dermatophytosis of nail 11/25/200011/15 Mixed dyslipidemia 9 Overview: Per Lipid Taxonomy. Type 2 diabetes mellitus wit h hemoglobin A1c goal of less than 7.0% 12/12/2008 Overview: Per Diabetes Taxonomy. ICD-10 update of inactive term IMPOTENCE, ORGANIC ORIGN 06/2020 Iron deficiency anemia 12/30 BMI 40.0-44.9, adult 018 Overview: Per Obesity protocol #1 CKD (chronic kidney disease), stage IV 05/29/2020 DM type 2 causing CKD stage 4 04/08/2022 documented as of this encounter (statuses as of 02/02/2023) Immunizations Name Administration Dates Next Due COVID-19 mRNA, LNP-s, No Pre serve, 2-Dose Series (Pfizer) 12/09/2020,05/09/2020,04/11/2020 COVID-19, LNP-s, No Preserve , Juan Manuel-sucrose, Ages 12+ (Pfizer) 06/04/2021 H1N1 2008 Influenza, IM 01/04/2009 MMR - Measles/Mumps/Rubella Vaccine 08/01/1996 Pneumococcal Conjugate Vacc, 13 Valent (Prevnar) 02/22/2014 Pneumococcal Conjugate Vacci ne, 7 Valent 11/20/2002 Pneumococcal Polysaccharide PPV23 (Pneumovax) 04/30/2008 Season Influenza, Quad, PF, Adjuvanted, 65+ Yrs, IM (FLUAD) 10/23/2019 Seasonal Influenza, PF, 6 M & above, IM , (FluLaval or Fluzone) 11/23/2017,11/04/2016 11/04/2017 Seasonal Influenza, Quadriva lent Hd (Fluzone Hd) 10/28/2022,10/22/2021,11/10/2020 Seasonal Influenza, Quadriva lent, No Preserve, IM 11/28/2015 Seasonal Influenza, Split, I IV3, With Preserve, Inj 10/15/2016,10/24/2014,11/02/2013,10/15,10/16/2011,10/23/2010,11/12/19 10,10/29/2008,12/26/2007,12/20/2005,1 ,11/20/2002,01/01/2002 Seasonal Influenza, Trivalen t, Adjuvanted, 65+ yrs 10/23/2018 TD - Tetanus/Diptheria (ADULT) 09/20/2007 TDAP (age 10 and older)(Boostrix) 02/19/2020 documented as of this encounter Social History Tobacco Use Types Packs/Day Years Used Date Smoking Tobacco: Former Cigarettes 2 10 Q uit: 01/27/1998 Smokeless Tobacco: Never Alcohol Use Standard Drinks/Week Comments No 0 (1 standard drink = 0.6 oz pur e alcohol) PHQ-2 Answer Date Recorded PHQ Adult Total Score 1 05/28/2022 Hunger Vital Sign Answer Date Recorded Within the past 12 months, y ou worried that your food would run out before you got the money to buy more. Never true 05/29/19 23 Within the past 12 months, t he food you bought just didn't last and you didn't have money to get more. Never true 05/28/2022 Sex and Gender Information Value Date Recorded Sex Assigned at Male 04/04/2019 11:59 AM EST Gender Identity Male 04/04/2019 11:59 AM EST Sexual Orientation Straight 04/04/2019 11 :59 AM EST Job Start Date Occupation Industry Not on file Not on file Not on file documented as of this encounter Miscellaneous Notes * Telephone Encounter - Nicola Prado MD - 02/02/2023 2:40 PM EST Your kidney function is stable Your urine test showed signs of UTI - are you currently having any symptoms * Telephone Encounter - Lisha Parrish RN - 02/01/2023 10:03 AM EST Please advise * Telephone Encounter - Annel Trivedi OSA - 01/31/2023 3:44 PM EST Please call patient with results of his blood test, thank you documented in this encounter Plan of Treatment Upcoming Encounters Date Type Department Care Team (Late st Contact Info) Description 02/22/2023 11:20 AM EST Office Visit Pharmacy, [address] [place] [address] [place] [address] 03/04/2023 10:30 AM EST Office Visit Gastroenterology [address] [place] [address] Marielena Hall CRNP [address] [place] [address] 03/07/2023 8:20 AM EST Office Visit Dermatology [address] [place] [address] Meron Aragon PA-C [address] [place] [address] [place] [address] 03/09/2023 2:30 PM EST Office Visit [facility]edics [facility] [address] [place] [phone] Bayron Reeves MD [address] [place] [address] 03/28/2023 9:30 AM EST Office Visit Cardiology, Health system [address] [place] [address] Nevaeh Linda PA-C [address] [place] [address] [place] [address] 03/29/2023 11:00 AM EST Office Visit Family Medicine [address] [place] [phone] Nicola Prado MD [address] [place] [address] [place] [address] 03/29/2023 12:30 PM EST Office Visit Cardiology [address] [place] [address] Blair Hannah PA-C [address] [place] [address] 04/05/2023 9:45 AM EST Office Visit Urology, Health system [address] [place] [address] Denny Armando MD [address] [place] [address] 05/20/2023 2:00 PM EDT Office Visit Rheumatology [address] [place] [phone] Jenni Perez CRNP [address] [place] [address] [place] [address] 06/02/2023 11:00 AM EDT Nurse Only Ancillary [address] [place] [address] Nurse Neeraj [address] [place] [address] 10/12/2023 11:20 AM EDT Office [facility] [place] [phone] Eulalia Milligan DO [address] [place] [address] 10/25/2023 10:00 AM EDT Cardiac Studies Cardiology [address] [place] [address] [facility] [address] [place] [address] 12/12/2023 3:00 PM EDT Office Visit Nephrology [address] [place] [address] Quin Narvaez MD [address] [place] [phone] Scheduled Procedures Name Priority Associated Diagnoses Date/Ti me ESOPHAGOGASTRODUODENOSCOPY ( EGD), FLEXIBLE, TRANSORAL, DIAGNOSTIC Recall Henning esophagus COLONOSCOPY FLEXIBLE PROXIMAL DIAGNOSTIC Recall History of colon polyps Health Maintenance Due Date Last Done Comments Alpha-1 Antitrypsin 1960 Zoster Vaccines (1 of 2) 1961 Hepatitis B (1 of 3 - Risk 3-dose series) 2002 Diabetic Eye Exam 09/18/2022 09/18/2021, , 06/03/2020, Additional history exists COVID-19 Vaccine ( season) 2022 06/04/2021, 12/09/2020, 05/09/2020, Additional history exists Depression Screening 05/29/2023 05/28/2022 Diabetic Foot Exam 05/29/2023 05/28/2022, 0 04/24/2020, 12/20/2018, Additional history exists HbA1c 06/27/2023 12/27/2022, 09/15, 04/22/2022, Additional history exists GFR 07/30/2023 01/28/2023, 11/14, 11/19/2022, Additional history exists Albumin/Creatinine Ratio 01/29/2024 023, 04/22/2022, 03/24/2022, Additional history exists O2 ASSESSMENT COMPLETED IN PAST YEAR FOR COPD 02/02/2024 02/01/2023 Henning's Esophagus Surveilance 09/09/2024 09/09/2021, 06/26/2021, 05/22/2021, Additional history exists COLONOSCOPY-EVERY 5 YRS AGES 18-100 10/31/2025 10/31/2020, 04/20/2018, 06/25/2015, Additional history exists DTaP,Tdap,and Td Vaccines (2 - Td or Tdap) 02/18/2030 02/19/2020, 09/20/2007 Pneumococcal Vaccine: 65+ Years Completed 02/25/2014, 02/22/2014, 04/30/2008 Nephrology Referral Discontinued 10/12/2022 Influenza Vaccine (FLU shot) Completed 10/28/2022, 10/22/2021, 11/10/2020, Additional history exists GARDASIL-HPV IMMUNIZATION SERIES Aged Out No longer eligible based on patient's age to complete this topic MENINGOCOCCAL (MENACTRA/MENVEO) Aged Out No longer eligible based on patient's age to complete this topic documented as of this encounter Medical Devices Implanted Type Area Local Owner Operator Truck Driver Device Identifier Shelf Expiration Date Model / Serial / Lot Sut Steel 6 [id number] - [id number] Implanted:Qty: 6 on 07/10/2008 at OR [facility] [place] N/A: Chest DO NOT USE 08/14/2012 [id number] / / [id number] documented as of this encounter Advance Directives Documents on File Type Date Recorded 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 Question Answer Comments Discussion of Advance Directives occurred with: Not Discussed Does the patient have a Living Will? No Does the patient have Health Care Power of Report Checker? No Code Status History Code Status Date Activated Date Inactivated Comments Full Code 07/10/2008 6:37 PM 07/21/2008 4:52 PM This o rder reflects the patients wishes and were consensually agreed upon. Full Code 07/04/2008 2:18 PM 07/10/2008 6:30 PM Healthcare Agents on File Name Relationship Healthcare Agent Relationshi p Communication Shane Beltran Adult Child Health Care Repr esentative (appointed verbally by patient or by statute hierarchy) Care Teams Blank Driller Relationship Specialty Start Date End Date Nicola Prado MD [address] [place] [address] [place] [phone] PCP - General Family Medicine 06/19/21 documented as of this encounter
--- OUTSIDE RECORDS SUMMARY | 2023-02-03 20:14 | External Medical Summary | Summary of Care ---
Author Name Unknown Organization [facility] Address [address] [place] [address] Phone [phone] Care Team Providers Care Telecom Coordinator Name Role Phone Nicola Prado MD Primary Care Provide r Reason for Visit * Reason Onset Date Comments Test Results 02/01/2023 Labs results Encounter Details Date Type Department Care Team (Late st Contact Info) Description 02/01/2023 Telephone Pharmacy, [address] [place] [address] [address] [place] [address] Test Results (Labs results ) Allergies Active Allergy Reactions Criticality Noted Date Comments Hydromorphone High 09/20/2021 Other reaction(s): Nausea Other reaction(s): Nausea 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/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 Other reaction(s): AMS Other reaction(s): AMS Prasugrel 04/02/2016 bleeding Prednisone High 09/20/2021 Other reaction(s): INCREASE BLOOD SUGAR Other reaction(s): INCREASE BLOOD SUGAR documented as of this encounter (statuses as of 02/01/2023) Medications Medication Sig Dispensed Refills Start Date End Date Status ASPIRIN 81 MG PO CHEWIndications:Uns table angina (HCC),Chronic coronary artery disease,Difficult intubation 1 Tab Oral Daily 1 0 07/21/2008 Active Fluticasone Propionate 50 MCG/ACT Nasal Suspension (Flonase) Administer 2 Sprays into nostril in the morning. 0 Active Folic Acid 1 MG Oral TabletIndications:I romulo deficiency anemia due to chronic blood loss,Folic acid deficiency,B12 deficiency Take 1 TabLET by mouth daily. 30 Tablet 11 04/27/2021 Active Betamethasone Dipropionate 0.05 % External OintmentIndications :Plaque psoriasis,Asteatoti c eczema Apply 2x daily to rash on [...] Active Triamcinolone Acetonide 0.1 % External Ointment (Aristocort)Indicat ions:Plaque psoriasis Apply to rash on trunk/arms/legs 2x daily (when thinner and less noticeable and less bothersome) until resolved, then when flaring 454 g 1 12/14/2021 Active Xiidra 5 % Ophthalmic Solution instill 1 drop by ophthalmic route 2 times every day into both eyes. OK for 90 day supply. 0 01/05/2022 Active Tamsulosin HCl 0.4 MG Oral Capsule (Flomax)Indications :Lower urinary tract symptoms Take 1 Capsule by mouth in the morning. 90 Capsule 3 04/13/2022 Active Nitroglycerin 0.4 MG Sublingual Tablet Sublingual (Nitrostat) 1 every 5 minutes as needed with chest pain up to 3 doses in 15 minutes 25 Tablet 1 05/05/2022 Active Victoza 18 MG/3ML Subcutaneous Solution Pen-injector (Liraglutide)Indica tions:Type 2 diabetes mellitus with hemoglobin A1c goal of less than 8.0% ([facility]),Type 2 diabetes mellitus with stage 4 chronic kidney disease, with long-term current use of insulin ([facility]) Inject 1.8 mg under the skin daily. 27 mL 3 07/23/2022 Active Furosemide 80 MG Oral Tablet (Lasix) Take 1 Tablet by mouth in the morning. 90 Tablet 1 08/05/2022 Active Atorvastatin Calcium 80 MG Oral Tablet (Lipitor)Indication s:Dyslipidemia, goal LDL below 70 Take 1 Tablet by mouth daily. 90 Tablet 0 10/13/2022 Active guaiFENesin ER 600 MG Oral Tablet Extended Release 12 Hour (Mucinex)Indication s:COPD exacerbation (HCC) Take 1 Tablet by mouth 2 times a day as needed for Congestion. Take with plenty of water. Do not cut, crush or chew 40 Tablet 0 10/13/2022 Active Tresiba FlexTouch 200 UNIT/ML Subcutaneous Solution Pen-injector (Insulin Degludec)Indication s:Type 2 diabetes mellitus with hemoglobin A1c goal of less than 8.0% (HCC) Inject 100 Units under the skin daily. [...] MG Oral Tablet Extended Release 24 Hour (Imdur)Indications: Chronic diastolic heart failure (HCC) Take 1 Tablet by mouth in the morning. 90 Tablet 3 11/19/2022 Active Enbrel SureClick 50 MG/ML Subcutaneous Solution Auto-injector (Etanercept)Indicat ions:H/O psoriasis,Polyartic ular psoriatic arthritis (HCC) Inject 50 mg under the skin once a week. 4 mL 1 11/17/2022 Active Albuterol Sulfate HFA 108 (90 Base) MCG/ACT Inhalation Aerosol SolutionIndications :COPD exacerbation (HCC),Chronic cough Inhale 2 Puffs by [...] AHP. 0 12/02/2022 Active Easy Touch Pen Quin[place] 31G X 8 MM (Insulin Pen Needle)Indications: Type 2 diabetes mellitus with hemoglobin A1c goal of less than 8.0% ([facility]),Type 2 diabetes mellitus with stage 4 chronic kidney disease, unspecified whether intermediate insulin use (HCC) Use up to eight times daily with insulin. DXe11.9 600 Each 3 12/07/2022 Active Allopurinol 300 MG Oral Tablet (Zyloprim) Take 1 Tablet by mouth daily. 90 Tablet 1 12/17/2022 Active NovoLOG FlexPen 100 UNIT/ML Subcutaneous Solution Pen-injector (insulin aspart)Indications: Type 2 diabetes mellitus with hemoglobin A1c goal of less than 8.0% ([facility]) Inject 12 units with breakfast and supper PLUS correction factor of 1:25 if over 140 mg/dL. Up to 120 units per day. 110 mL 3 12/28/2022 Active CaseRailsuch UltraSoft LancetsIndications: Type 2 diabetes mellitus with hemoglobin A1c goal of less than 8.0% ([facility]) Test blood sugar up to five times daily; dx E11.9 450 Each 3 01/02/2023 Active CaseRailsuch Ultra In Vitro Strip (Glucose Blood)Indications:T ype 2 diabetes mellitus with hemoglobin A1c goal of less than 8.0% ([facility]) Test 3-4 times a day 100 Strip 3 01/11/2023 Active Plum (Formerly Ube) No Coding Blood Gluc In Vitro Strip (Glucose Blood) Use as directed to test blood sugars up to four times daily DxE11.9 400 Strip 3 01/12/2023 Active Plum (Formerly Ube) Voice Blood Glucose w/Device Kit Use as directed to test blood sugars up to four times daily DxE11.9 1 Kit 0 01/12/2023 Active BD TB Syringe 27G X 1/2" 1 ML (Tuberculin Syringe) To be used with Octreotide. 60 Each 0 01/21/2023 Active Ezetimibe 10 MG Oral Tablet (Zetia) Take 1 Tablet by mouth daily. 90 Tablet 3 01/21/2023 Active Cephalexin 500 MG Oral Capsule (Keflex)Indications :Finger infection Take 1 Capsule by mouth in the morning and 1 Capsule before bedtime. Do all this for 10 days. 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 Test performed by Dori BURROUGHS CPFT Body mass index (BMI) of 45. [...] TIA (transient ischemic attack) 02/04/2016 11/23/2017 Overview: [facility] Anemia of chronic renal failure 07/30/2015 01/27/2017 [...] CASE MANAGEMENT 07/22/200812/01 Overview: Kianna Lyn, RN [phone] Examination following surgery 07/11/2008 12/31/2011 Difficult intubation 07/10/2008 021 Overview: Patient seen and examined in OR#1.Possible difficult intubation.TM distance about 5 cms.MP 3-4. Will plan FOB electively Due to current situation. EXAMINATION OF PARTICIPANT I N CLINICAL TRIAL-genomics 07/04/2008 05/30/2009 Overview: Renamed Per Clinical Trials Billing Project. Study Titile: Genomic Markers for Patients with Cardiovascular Disease Project #[id number] PI: Miriam Roque MD Please call [phone] with study related questions Chronic coronary artery [...] not at goal 07/04/200809/06 GENOMICS CARDIO RESEARCH OTHER*[id number] 07/04/2008 03/23/2016 Overview: Renamed Per Clinical Trials Billing Project. Study Titile: Genomic Markers for Patients with Cardiovascular Disease Project #[id number] PI: Miriam Roque MD Please call [phone] with study related questions Kidney disease, chronic, [...] as of this encounter (statuses as of 02/01/2023) Immunizations Name Administration Dates Next Due COVID-19 mRNA, LNP-s, No Pre serve, 2-Dose Series (Pfizer) 12/09/2020,05/09/2020,04/11/2020 COVID-19, LNP-s, No Preserve , Juan Manuel-sucrose, Ages 12+ (Pfizer) 06/04/2021 H1N1 2009 Influenza, IM 01/04/2009 MMR - Measles/Mumps/Rubella Vaccine [...] encounter Miscellaneous Notes * Telephone Encounter - Karlene Alvarez RPh - 02/01/2023 11:16 AM EST Patient stopped by clinic today. Made him aware of 01/11 TE that Prodigy talking meter has been ordered at [facility] and ready to be picked up. He plans to do so today. Agreeable to retrying CGM therapy. Will plan to place [facility] order for Dexocm G7 today. Placement scheduled x3 weeks. Remind-me sent to f/u on status of order. Karlene Alvarez RPh, PharmD Clinical Pharmacist - Flat Examiner Medication Therapy [facility] 02/01/2023, 11:18 AM [phone] * Telephone Encounter - Karen Horton OSA - 02/01/2023 11:12 AM EST [facility] would like someone to call him on his lab results from last week. documented in this encounter Plan of Treatment Upcoming Encounters Date Type Department Care Team (Late st Contact Info) Description 02/22/2023 11:20 AM EST Office Visit Pharmacy, [address] [place] [address] [place] [address] 03/04/2023 10:30 AM EST Office Visit Gastroenterology [address] [place] [address] Marielena Hall CRNP [address] [place] [address] 03/07/2023 8:20 AM EST Office Visit Dermatology [address] [place] [address] Meron Aragon PA-C [address] [place] [address] [place] [address] 03/09/2023 2:30 PM EST Office Visit Orthopaedics [facility] [address] [place] [address] Bayron Reeves MD [address] [place] [address] 03/28/2023 9:30 AM EST Office Visit Cardiology, [facility] [address] [place] [address] Nevaeh Linda PA-C [address] [place] [address] [place] [address] 03/29/2023 11:00 AM EST Office Visit Family Medicine [address] [place] [phone] Nicola Prado MD [address] [place] [address] [place] [address] 03/29/2023 12:30 PM EST Office Visit Cardiology [address] [place] [address] Blair Hannah PA-C [address] [place] [address] 04/05/2023 9:45 AM EST Office Visit Urology, [facility] [address] [facility] [place] [address] Denny Armando MD [address] [address] [place] [address] 05/20/2023 2:00 PM EDT Office Visit Rheumatology [address] [place] [phone] Jenni Perez CRNP [address] [place] [address] [place] [address] 06/02/2023 11:00 AM EDT Nurse Only Ancillary [address] [place] [address] [place], Nurse Annual [address] [place] [address] 10/12/2023 11:20 AM EDT Office Visit Sleep Disorders Ctr [facility] [address] [facility] [place] [phone] Eulalia Milligan DO [address] [place] [address] 10/25/2023 10:00 AM EDT Cardiac Studies Cardiology [address] [place] [address] [facility] Pacer [facility] [address] [facility] [place] [address] 12/12/2023 3:00 PM EDT Office Visit Nephrology [address] [place] [address] Quin Narvaez MD [address] [place] [address] Scheduled Procedures Name Priority Associated Diagnoses Date/Ti [...] this encounter Medical Devices Implanted Type Area Suit Attendant Device Identifier Shelf Expiration Date Model / Serial / Lot Sut Steel 6 [id number] - [id number] Implanted:Qty: 6 on 07/10/2008 at [place] [facility] [place]: Chest DO NOT USE 08/14/2012 [id number] / / [id number] documented as of this encounter Visit Diagnoses Diagnosis Type 2 diabetes mellitus with hemoglobin A1c goal of less than 8.0% ([facility])- Primary documented in this encounter Advance Directives Documents on File Type Date Recorded Patient Direct Chill Caster Expl anation Power of Nailing Machine Operator 06/26/2019 POWER OF A TTORNEY Advance Directives [...] the patient have Health Care Power of Nailing Machine Operator? No Code Status History Code Status Date [...] patient or by statute hierarchy) Care Teams Telecom Coordinator Relationship Specialty Start Date End Date Nicola Prado MD [address] [place] [address] [place] [address] PCP - General Family Medicine 06/19/21 documented as of this encounter
--- OUTSIDE RECORDS SUMMARY | 2023-02-03 20:14 | External Medical Summary ---
Author Name Unknown Address Unknown Organization [id number]:[facility] [place] - [address] [facility] [address] Laboratory Report Ordering Provider Test Date Status EPIFANIO NGUYENITIS 01/28/2023 14:33:59 Final Normal: <30 mg/g creatinine< br/>High: 30-300 mg/g creatinine
Very High: >300 mg/g creatinine
Nephrotic: >2200 mg/g creatinine Observation Date Value Abnormality Reference (Units ) Status Albumin, Urine 01/28/2023 14:33:59 47.49 (mg/dL) Final Creatinine, Urine 01/28/2023 14:33:59 46 (mg/dL) Final Albumin/Creatinine [Mass Ratio] in Urine 01/28/2023 14:33:59 1032 Above high normal <30 (mg/g Creat) Final Performing Location [facility] [place] [facility] [address] [facility] [address]
--- OUTSIDE RECORDS SUMMARY | 2023-02-03 20:14 | External Medical Summary | Summary of Care ---
Author Name Unknown Organization [facility] Address [address] [place] [address] Phone [phone] Care Team Providers Care Scrap Picker Name Role Phone Nicola Prado MD Primary Care Provide r Reason for Referral * Evaluate & Treat - Unlimited Visits (Within 10 days (routine)) - Authorized Specialty Diagnoses / Procedures Referred By Souleymane rogel Referred To Contact Orthopaedic Surgery / Orthopedics Diagnoses Finger infection Monica Guerrero MD [address] [place] [address] [place] [phone] Referral ID Status Reason Start Date Expiration Date Visits Requested Visits Authorized [id number] Authorized Specialty Services Required 3 [phone] Question Answer Referral Priority Within 10 days (routine) Where should this appointment be scheduled? [facility] What body part is the patient being seen for? Hand What condition is the patient being seen for? Arthritis including related infection Comments ?Infection of distal right index finger Reason for Visit * Reason Comments Acute Encounter Details Date Type Department Care Team (Late st Contact Info) Description 02/01/2023 10:40 AM EST Office Visit Family Medicine [address] [place] [phone] Monica Guerrero MD [address] [place] [address] [place] [phone] Finger infection*; Psoriatic arthropathy (HCC); Prostate cancer (HCC); Iron deficiency anemia due to chronic blood loss Allergies Active Allergy Reactions Criticality Noted Date [...] hemoglobin A1c goal of less than 8.0% ([facility]),Type 2 diabetes mellitus with stage 4 chronic kidney disease, with long-term current use of insulin ([facility]) Inject 1.8 mg under the skin daily. [...] Extended Release 12 Hour (Mucinex)Indication s:COPD exacerbation ([facility]) Take 1 Tablet by mouth 2 times a day as needed for Congestion. Take with plenty of water. Do not cut, crush or chew 40 Tablet 0 10/13/2022 Active Tresiba FlexTouch 200 UNIT/ML Subcutaneous Solution Pen-injector (Insulin Degludec)Indication s:Type 2 diabetes mellitus with hemoglobin A1c goal of less than 8.0% ([facility]) Inject 100 Units under the skin daily. [...] Auto-injector (Etanercept)Indicat ions:H/O psoriasis,Polyartic ular psoriatic arthritis ([facility]) Inject 50 mg under the skin once a week. 4 mL 1 11/17/2022 Active Albuterol Sulfate HFA 108 (90 Base) MCG/ACT Inhalation Aerosol SolutionIndications :COPD exacerbation ([facility]),Chronic cough Inhale 2 Puffs by mouth every 4 hours as needed for Cough or Shortness of Breath. 18 g 2 12/01/2022 Active oxygen IN GAS Use 2 L/min(Oxygen) as directed in the morning. 2.5 LPMBled through bipap And 2 LPM with exertion. (Patient is using 2 LPM with CPAP, and 3 LPM with exertion/activity ) DME: [facility]. 0 12/02/2022 Active Easy Touch Pen [place] 31G X 8 MM (Insulin Pen Needle)Indications: Type 2 diabetes mellitus with hemoglobin A1c goal of less than 8.0% ([facility]),Type 2 diabetes mellitus with stage 4 chronic kidney disease, unspecified whether manager terminal insulin use ([facility]) Use up to eight times daily with insulin. DXe11.9 600 Each 3 12/07/2022 Active Allopurinol 300 MG Oral Tablet (Zyloprim) Take 1 Tablet by mouth daily. 90 Tablet 1 12/17/2022 Active NovoLOG FlexPen 100 UNIT/ML Subcutaneous Solution Pen-injector (insulin aspart)Indications: Type 2 diabetes mellitus with hemoglobin A1c goal of less than 8.0% ([facility]) Inject 12 units with breakfast and supper PLUS correction factor of 1:25 if over 140 mg/dL. Up to 120 units per day. 110 mL 3 12/28/2022 Active OneTouch UltraSoft LancetsIndications: Type 2 diabetes mellitus with hemoglobin A1c goal of less than 8.0% ([facility]) Test blood sugar up to five times daily; dx E11.9 450 Each 3 01/02/2023 Active OneTouch Ultra In Vitro Strip (Glucose Blood)Indications:T ype 2 diabetes mellitus with hemoglobin A1c goal of less than 8.0% ([facility]) Test 3-4 times a day 100 Strip 3 01/11/2023 Active Prodigy No Coding Blood Gluc In Vitro Strip (Glucose Blood) Use as directed to test blood sugars up to four times daily DxE11.9 400 Strip 3 01/12/2023 Active Ultimate Software Voice Blood Glucose w/Device Kit Use as [...] Problem Noted Date Diagnosed Date Atherosclerosis of [place] ronary artery of [place] heart with stable angina pectoris 12/27/2022 Atherosclerosis of coronary artery bypass graft of [place] heart with angina pectoris 10/13/2022 Encounter for [...] diastolic heart failure 02/21/2019 Pulmonary hypertension 11/04/2016 Stubbs's esophagus with dysplasia 06/24/2015 S/P primary angioplasty [...] urinary tract symp toms 07/13/2001 Atherosclerosis of [place] ronary artery of [place] heart without angina pectoris documented as of [...] use aero chamber. Test performed by Dori DEPUTY DIRECTOR OF NURSING CPFT Body mass index (BMI) of 45. [...] disease 11/10/2016 04/08/2022 Sinus tachycardia 11/04/2016 08/07/2018 GOETZ (dyspnea on exertion) 11/04/2016 TIA (transient ischemic attack) 02/04/2016 11/23/2017 Overview: [facility] Anemia of chronic renal failure 07/30/2015 [...] CASE MANAGEMENT 07/22/200812/01 Overview: Kianna Lyn, RN [phone] Examination following surgery 07/11/2008 12/31/2011 Difficult intubation 07/10/2008 021 Overview: Patient seen and examined in OR#1.Possible difficult intubation.TM distance about 5 cms.MP 3-4. Will plan FOB electively Due to current situation. EXAMINATION OF PARTICIPANT I N CLINICAL TRIAL-genomics 07/04/2008 05/30/2009 Overview: Renamed Per Clinical Trials Billing Project. Study Titile: Genomic Markers for Patients with Cardiovascular Disease Project #[id number] PI: Fabienne Martinez MD Please call [phone] with study related questions Chronic coronary artery [...] not at goal 07/04/200809/06 GENOMICS CARDIO RESEARCH OTHER*[id number] 07/04/2008 03/23/2016 Overview: Renamed Per Clinical Trials Billing Project. Study Titile: Genomic Markers for Patients with Cardiovascular Disease Project #[id number] PI: Fabienne Martinez MD Please call [phone] with study related questions Kidney disease, chronic, [...] mRNA, LNP-s, No Pre serve, 2-Dose Series (Veruta) 12/09/2020,05/09/2020,04/11/2020 COVID-19, LNP-s, No Preserve , Juan Manuel-sucrose, Ages 12+ (Pfizer) 06/04/2021 H1N1 2009 Influenza, IM 01/04/2009 MMR - Measles/Mumps/Rubella Vaccine 08/01/1996 Pneumococcal Conjugate Vacc, 13 Valent (Prevnar) 02/22/2014 Pneumococcal Polysaccharide PPV23 (Pneumovax) 04/30/2008 Season Influenza, Quad, PF, Adjuvanted, 65+ Yrs, IM (FLUAD) 10/23/2019 Seasonal Influenza, PF, 6 M & above, IM , (FluLaval or Fluzone) 11/23/2017,11/04/2016 11/04/2017 Seasonal Influenza, Quadriva lent Hd (Fluzone Hd) 10/28/2022,10/22/2021,11/10/2020 Seasonal Influenza, Quadriva lent, No Preserve, IM 11/28/2015 Seasonal Influenza, Split, I IV3, With Preserve, Inj 10/15/2016,10/24/2014,11/02/2013,10/15,10/16/2011,10/23/2010,11/12/19 10,10/29/2008,12/26/2007,12/20/2005 Seasonal Influenza, Trivalen t, Adjuvanted, 65+ yrs [...] on file documented as of this encounter Last Filed Vital Signs Vital Sign Reading Time Taken Comments Blood Pressure 120/60 02/01/2023 10:39 AM EST Pulse 89 02/01/2023 10:39 AM EST Temperature 36.7 C (98 F) 02/01/2023 10:39 AM EST Respiratory Rate - - Oxygen Saturation 95% 02/01/2023 10:39 AM EST Inhaled Oxygen Concentration - - Weight 115.2 kg (254 lb) 02/01/2023 10:39 AM EST Height - - Body Mass Index 43.6 12/02/2022 10:11 AM EDT documented in this encounter Progress Notes * Monica Guerrero MD - 02/01/2023 10:42 AM EST Subjective: Maurisio Beltran is a 82 year old male. Chief Complaint Patient presents with Acute HPI: No brief clinical history available. Right distal index finger has been painful and swollen for a couple weeks. No known injury or splinter. It is very sore. The home health aide trimmed a little of the nail back and relieved some of the pressure. Was not doing any gardening or anything where he injured it. Octreotide is very painful. Is on it for chronic GI bleeding and has cut down on need for transfusions. Wants the once a month injection that was denied by his insurance. States he was denied becausehe does not have cancer but he does have prostate cancer and cannot understand why it wouldn't be approved. States every doctor that looks at his chart should know he has cancer. Upset that he gets appointment reminders via text because he cannot see well enough to read them. States he called in to be changed back to phone calls 2 weeks ago but he has not received any phone calls yet. Results for orders placed or performed in visit on 01/28/23 BASIC METABOLIC PANEL Result Value Ref Range BUN 19 6 - 20 mg/dL Creatinine 1.9 (H) 0.6 - 1.2 mg/dL Estimated Glomerular Filtration Rate 35 (L) >=60 mL/min Sodium 136 135 - 146 mmol/L Potassium 4.0 3.5 - 5.1 mmol/L Chloride 95 (L) 98 - 107 mmol/L CO2 28 22 - 32 mmol/L Anion Gap 13 7 - 15 mmol/L Glucose 271 (H) 70 - 120 mg/dL Calcium 8.4 8.4 - 10.2 mg/dL URINALYSIS WITH MICROSCOPIC EXAM Result Value Ref Range Color, Urine Colorless Colorless, Light Yellow, Yellow, Dark Yellow Clarity, Urine Clear Clear Glucose, Urine 100 (A) Negative mg/dL Bilirubin, Urine Negative Negative Ketone, Urine Negative Negative mg/dL Specific [place], Urine 1.009 1.003 - 1.030 Blood, Urine Negative Negative pH, Urine 6.5 5.0 - 7.5 Units Protein, Urine 30 (A) Negative mg/dL Urobilinogen, Urine Normal Normal mg/dL Nitrite, Urine Negative Negative Esterase, Urine Small (A) Negative RBC, Urine 0-2 0 - 2 /HPF WBC, Urine 10-19 (A) 0 - 2 /HPF Bacteria, Urine 51-100 (A) 0 - 25 /HPF Hyaline, Cast, Urine 1-4 (A) None /LPF ALBUMIN / CREATININE RATIO, URINE Result Value Ref Range Albumin, Random Urine 47.49 mg/dL Creatinine, Random Urine 46 mg/dL Albumin / Creatinine Ratio, Urine 1,032 (H) <30 mg/g Creat *Note: Due to a large number of results and/or encounters for the requested time period, some results have not been displayed. A complete set of results can be found in Results Review. PHM: Patient Active Problem List Diagnosis Code BPH without obstruction/lower urinary tract symptoms N40.0 Psoriasis L40.9 Generalized osteoarthritis M15.9 Iron deficiency anemia due to chronic blood loss D50.0 Atherosclerosis of [place] coronary artery of [place] heart without angina pectoris I25.10 Aortocoronary bypass status Z95.1 Type 2 diabetes mellitus with hemoglobin A1c goal of less than 8.0% ([facility]) E11.9 Dyslipidemia E78.5 Vitamin D deficiency E55.9 REENA-inhibitor cough R05.8, T46.4X5A Obstructive sleep apnea of adult G47.33 Psoriatic arthropathy ([facility]) L40.50 S/P primary angioplasty with coronary stent Z95.5 Stubbs's esophagus with dysplasia K22.719 Pulmonary hypertension ([facility]) I27.20 Chronic diastolic heart failure ([facility]) I50.32 Gout M10.9 COPD, group D, by GOLD 2017 classification ([facility]) J44.9 Chronic respiratory failure with hypoxia ([facility]) J96.11 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 Vitamin B12 deficiency E53.8 Atrioventricular block, Mobitz type 1, Wenckebach I44.1 S/P placement of cardiac pacemaker Z95.0 H/O dysplastic nevus Z86.018 Hx of nonmelanoma skin cancer Z85.828 Elevated prostate specific antigen (PSA) R97.20 Chronic pain of right hip M25.551, G89.29 Leg swelling M79.89 Anemia in stage 4 chronic kidney disease N18.4, D63.1 Macular degeneration of both eyes H35.30 HTN, goal below 140/90 I10 Current mild episode of major depressive disorder without prior episode ([facility]) F32.0 Type 2 diabetes mellitus with stage 4 chronic kidney disease, with long-term current use of insulin([facility]) E11.22, N18.4, Z79.4 CHB (complete heart block) ([facility]) I44.2 Prostate cancer ([facility]) C61 Stage 3b chronic kidney disease ([facility]) N18.32 Plaque psoriasis L40.0 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 ([facility]) I13.0, I50.32, N18.4 Atherosclerosis of coronary artery bypass graft of [place] heart with angina pectoris ([facility]) I25.709 Encounter for long-term (current) insulin use ([facility]) Z79.4 Atherosclerosis of [place] coronary artery of [place] heart with stable angina pectoris ([facility]) I25.118 Current Outpatient Medications Medication Sig Dispense Refill ASPIRIN 81 MG PO CHEW 1 Tab Oral Daily 1 0 Fluticasone Propionate 50 MCG/ACT Nasal Suspension (Flonase) Administer 2 Sprays into nostril in the morning. Folic Acid 1 MG Oral Tablet Take 1 TabLET by mouth daily. 30 Tablet 11 Betamethasone Dipropionate 0.05 % External Ointment Apply 2x daily to rash on back/abdomen/arms/legs until resolved, then when flaring again 100 g 0 Probiotic Daily Oral Capsule Take by mouth 1 Capsule in the morning. Vitamin D3 125 MCG (5000 UT) Oral Capsule Take 1 Capsule by mouth in the morning. CPAP every night at bedtime . 2 Liters Diclofenac Sodium 1 % External Gel (Voltaren) Apply topically to affected area 2 g in the morning AND 2 g before bedtime. Apply to affected area of lower back up to twice a day as needed for pain. Wash hands after.. 100 g 1 Triamcinolone Acetonide 0.1 % External Ointment (Aristocort) Apply to rash on trunk/arms/legs 2x daily (when thinner and less noticeable and less bothersome) until resolved, then when flaring 454 g 1 Xiidra 5 % Ophthalmic Solution instill 1 drop by ophthalmic route 2 times every day into both eyes.OK for 90 day supply. Tamsulosin HCl 0.4 MG Oral Capsule (Flomax) Take 1 Capsule by mouth in the morning. 90 Capsule 3 Nitroglycerin 0.4 MG Sublingual Tablet Sublingual (Nitrostat) 1 every 5 minutes as needed with chest pain up to 3 doses in 15 minutes 25 Tablet 1 Victoza 18 MG/3ML Subcutaneous Solution Pen-injector (Liraglutide) Inject 1.8 mg under the skin daily. 27 mL 3 Furosemide 80 MG Oral Tablet (Lasix) Take 1 Tablet by mouth in the morning. 90 Tablet 1 Atorvastatin Calcium 80 MG Oral Tablet (Lipitor) Take 1 Tablet by mouth daily. 90 Tablet 0 guaiFENesin ER 600 MG Oral Tablet Extended Release 12 Hour (Mucinex) Take 1 Tablet by mouth 2 timesa day as needed for Congestion. Take with plenty of water. Do not cut, crush or chew 40 Tablet 0 Tresiba FlexTouch 200 UNIT/ML Subcutaneous Solution Pen-injector (Insulin Degludec) Inject 100 Units under the skin daily. 90 mL 3 Octreotide Acetate 50 MCG/ML Injection Solution (Sandostatin) Inject 50mcg under the skin in the morning and the evening. 180 mL 1 Omeprazole 20 MG Oral Capsule Delayed Release (PriLOSEC) Take 1 Capsule BY MOUTH in the morning AND1 Capsule before bedtime. 60 Capsule 3 Isosorbide Mononitrate ER 60 MG Oral Tablet Extended Release 24 Hour (Imdur) Take 1 Tablet by mouthin the morning. 90 Tablet 3 Enbrel SureClick 50 MG/ML Subcutaneous Solution Auto-injector (Etanercept) Inject 50 mg under the skin once a week. 4 mL 1 Albuterol Sulfate HFA 108 (90 Base) MCG/ACT Inhalation Aerosol Solution Inhale 2 Puffs by mouth every 4 hours as needed for Cough or Shortness of Breath. 18 g 2 oxygen IN GAS Use 2 L/min(Oxygen) as directed in the morning. 2.5 LPMBled through bipap And 2 LPM with exertion. (Patient is using 2 LPM with CPAP, and 3 LPM with exertion/activity) DME: [facility]. Easy Touch Pen [place] 31G X 8 MM (Insulin Pen Needle) Use up to eight times daily with insulin. DXe11.9 600 Each 3 Allopurinol 300 MG Oral Tablet (Zyloprim) Take 1 Tablet by mouth daily. 90 Tablet 1 NovoLOG FlexPen 100 UNIT/ML Subcutaneous Solution Pen-injector (insulin aspart) Inject 12 units with breakfast and supper PLUS correction factor of 1:25 if over 140 mg/dL. Up to 120 units per day. 110 mL 3 OneTouch UltraSoft Lancets Test blood sugar up to five times daily; dx E11.9 450 Each 3 OneTouch Ultra In Vitro Strip (Glucose Blood) Test 3-4 times a day 100 Strip 3 Prodigy No Coding Blood Gluc In Vitro Strip (Glucose Blood) Use as directed to test blood sugars upto four times daily DxE11.9 400 Strip 3 Prodigy Voice Blood Glucose w/Device Kit Use as directed to test blood sugars up to four times daily DxE11.9 1 Kit 0 BD TB Syringe 27G X 1/2" 1 ML (Tuberculin Syringe) To be used with Octreotide. 60 Each 0 Ezetimibe 10 MG Oral Tablet (Zetia) Take 1 Tablet by mouth daily. 90 Tablet 3 Current Facility-Administered Medications Medication Dose Route Frequency Provider Last Rate Last Admin Albuterol Sulfate (Proventil) (2.5 MG/3ML) 0.083% inhalation solution 2.5 mg 2.5 mg Nebulizer PRN Demetra, Al Reinoso PA-C Past Medical History: Diagnosis Date (HFpEF) heart failure with preserved ejection fraction (HCC) Acute blood loss anemia 10/29/2020 [facility] transfused Acute exacerbation of chronic obstructive pulmonary disease (COPD) (HCC) 05/11/2018 [facility] Altered mental status 03/31/2017 likely the baclofen Atrioventricular block, Mobitz type 1, Wenckebach 06/09/2020 barretts stomach gastritis, stubbs's esophagus, recommend f/u in 2 years Benign neoplasm of colon 09/27/2006 adenomatous & hyperplastic polyp--repeat one year Benign neoplasm of colon 10/10/2007 hyperplastic/repeat colnoscopy in 2 yrs Benign neoplasm of colon 09/24/2009 diverticulosis, 10 polyps, t path sows hyperplastic tissue repeat in 2 years Benign neoplasm of colon 11/06/2010 Hyperplastic polyps BMI 40.0-44.9, adult (HCC) BPH without obstruction/lower urinary tract symptoms Chest pain Chest pain radiating to arm 07/22/2015 left chest pain radiating to arm, probably left rotator cuff CKD (chronic kidney disease), stage IV ([facility]) GFR 26.5 COPD, mild ([facility]) 08/21/2010 COPD, moderate ([facility]) 10/04/2014 PFT Coronary atherosclerosis of [place] coronary artery 07/04/2008 Admitted [facility] COVID-19 02/24/2021 Dermatophytosis of scalp or bello DM type 2 causing CKD stage 4 ([facility]) DM type 2, goal A1c below 7 Encounter for surveillance of abnormal nevi 09/25/2018 Moderately atypical nevus (central upper back) Fracture of distal end of tibia with fibula, left, closed, with routine healing, subsequent encounter 12/16/2020 Generalized osteoarthritis 05/04/2004 Gout 02/22/2019 big toe uric acid 11.7 Impotence of organic origin Iron deficiency anemia Iron deficiency anemia secondary to blood loss (chronic) Kidney disease, chronic, stage III (GFR 30-59 ml/min) ([facility]) 06/2008 Malignant neoplasm of prostate ([facility]) Prostate Mixed dyslipidemia Morbid obesity with BMI of 45.0-49.9, adult ([facility]) Other psoriasis S/P primary angioplasty with coronary stent 09/05/2013 drug eluting stents to 60% RCA, other grafts open except SVG to PDA is occluded Sleep apnea CPAP Sleep apnea, obstructive Symptomatic anemia 10/29/2020 Admitted [facility] and transfused TIA (transient ischemic attack) 02/04/2016 [facility] Tubular adenoma 10/31/2020 Past Surgical History: Procedure Laterality Date BRACHYTHERAPY SEED,IRIDIUM 192 01/2004 BYPASS GRAFT ANGIOGRAPHY W/LEFT HEART CATH 09/05/2013 BYPASS GRAFT ANGIOGRAPHY W/LEFT HEART CATH performed by Aleisha Abraham MD at [facility] BYPASS GRAFT ANGIOGRAPHY W/RIGHT+LEFT CATH Right 08/25/2016 BYPASS GRAFT ANGIOGRAPHY W/RIGHT+LEFT CATH performed by Eliseo José MD at [facility] CABG, ARTERIAL, SINGLE 07/10/2008 CORONARY ARTERY BYPASS GRAFT USING ARTERY 1 GRAFT performed by BUDDY VILCHIS at OR [facility] CABG, ARTERY-VEIN, TWO 07/10/2008 CORONARY ARTERY BYPASS GRAFT ARTERIAL AND VENOUS 2 GRAFTS performed by BUDDY VILCHIS at OR [facility] CARDIAC CATH-CARDIOLOGY ONLY 09/05/2013 60% RCA, drug eluting stents used, other graphs patent escept occluded SVG to PDA COLONOSCOPY W/ BIOPSY (RECTUM) 10/10/2007 hyperplastic repeat in 2 yrs COLONOSCOPY W/ BIOPSY (RECTUM) 09/24/2009 diverticulosis, 10 polyps, t path sows hyperplastic tissue repeat in 2 years COLONOSCOPY W/ LESION REMOVAL, SNARE 09/2006 genetic counseling--hyperplastic and adenomatous polyp--repat 1 year COLONOSCOPY W/ LESION REMOVAL, SNARE 11/05/2010 Hyperplastic polyps& diverticulosis COLONOSCOPY, DIAGNOSTIC (RECTUM) 06/25/2015 adenomatous & hyperplastic polyps, repeat 3 yrs/[facility] COLONOSCOPY, DIAGNOSTIC (RECTUM) 04/20/2018 hyperplastic polyp, repeat 5 yrs/[facility] COLONOSCOPY, DIAGNOSTIC (RECTUM) 10/31/2020 adenomatous polyp, diverticulosis, repeat 3 yrs / [facility] COLONOSCOPY, REMOVE LESION, W/SNARE 06/25/2015 4 mm polyp ascending, 2 polyps in rectum, diverticulosis COMBINED RT & LEFT HEART CATHETERS 07/04/2008 RIGHT AND RETROGRADE LEFT HEART CATH performed by CANDELARIO VINES at [facility] COMBINED RT & LEFT HEART CATHETERS 01/01/2010 RIGHT AND RETROGRADE LEFT HEART CATH performed by KAREL OBANDO at [facility] CORONARY ANGIOGRAPHY W/LEFT HEART CATH Left 12/02/2022 CORONARY ANGIOGRAPHY W/LEFT HEART CATH performed by Carrie Nation MD at [facility] CT HEAD/BRAIN WO CONTRAST N/A 02/04/2016 patchy white matter hypodensities but no acute findings CT HEAD/BRAIN WO CONTRAST 03/31/2017 mild atrophy with chronic microvascular ischemic changes, plaque notd within the cerebral vasculature at level of skull base ECHO, COMPLETE (2D), TRANS-THORACIC 03/18/2014 No LVH or diastolic dysfunction, normal wall motion, EF 75%, LA 4.6 cm ECHO, COMPLETE (2D), TRANS-THORACIC 02/25/2015 normal sized hyperdynamic LV with EF 70-75%, pseudonormal diastolic dysfunction ECHOCARDIOLOGY SCANNED RESULT N/A 06/09/2020 high grade AV block, dye study shows grossly normal LV function EGD, FLEXIBLE, DIAGNOSTIC 12/05/2013 Esophageal mucosal changes secondary to established short segment stubbs's esophagus. placement ofVCE/ESOPHAGOGASTRODUODENOSCOPY (EGD), FLEXIBLE, TRANSORAL, DIAGNOSTIC performed by Jose Eduardo Valadez MD at ENDOSCOPY [facility] EGD, FLEXIBLE, DIAGNOSTIC 06/25/2015 esophagitis/[facility] EGD, FLEXIBLE, DIAGNOSTIC N/A 11/14/2020 two large inlet patches/patchey antral gastritis/biopsies show Barretts/EGD EGD, FLEXIBLE, DIAGNOSTIC 05/22/2021 Barretts, repeat 3 yrs / [facility] EGD, FLEXIBLE, DIAGNOSTIC 06/26/2021 normal / INPT [facility] EGD, FLEXIBLE, DIAGNOSTIC 09/09/2021 mildly inflammed mucosa on bx / [facility] EGD, FLEXIBLE, DIAGNOSTIC 10/30/2020 single bleeding angiodysplastic lesion in the jejunum / INPT [facility] EGD, FLEXIBLE, W/BIOPSY 11/14/2006 mild chronic inflammation EGD, FLEXIBLE, W/BIOPSY 04/25/2008 stomach gastritis, stbubs's esophagus, recommend f/u in 2 years EGD, FLEXIBLE, W/BIOPSY 06/25/2015 stomach and duodenum normal ENDO,VIDEO ASSIST HARVEST DILLON 07/10/2008 ENDOSCOPY VIDEO ASSISTED HARVEST VEIN performed by BUDDY VILCHIS at [facility] FLUORO SWALLOWING FUNCTION W VIDEO CINE 11/14/2017 moderate esophageal dysmotility, no mass or stricture FLUORO UPPER GI W AIR WO KUB 06/03/2014 normal HC VENOUS DUPLEX COMPLETE BILATERAL LOWER EXTREMITY Bilateral 11/14/2017 no DVT INSERT HEART ELECTRODE, DUAL CHAMBR 06/11/2020 [facility] INSERT IA PERCUT DEVICE 07/10/2008 INSERT INTRA AORTIC BALLOON ASSIST DEVICE PERCUTANEOUS performed by FABIENNE MARTINEZ at [facility] LEFT HEART CATHETERIZATION 07/04/2008 80% mid left main also evaluated by IVUS, 80% mid LAD, 70 Mid ramus, long 70% Prox RCA, 80% distal RCA mild pulm htn, normal EF MRA HEAD W WO CONTRAST N/A 02/04/2016 normal MRI BRAIN PERFUSION W/WO CONTRAST N/A 02/04/2016 no evidence of acute findings NEEDLE/PUNCH BIOPSY OF PROSTATE Prostate,Needle/Punch Biopsy x 2 NM MYOCARDIAL PERFUSION IMAGING SPECT MULTIPLE STUDIES WITH PHARMACOLOGIC INTERVENTION 07/01/2015 normal stress imaging, EF 71%, compared to 02/19/14, inferior ischemia has resolved NUCLEAR SCAN OF GASTRIC MUCOSA 06/03/2014 no Meckel's diverticulum OTHER 04/07/2015 placement of a-port tunneled central venous access catheter w/port PACEMAKER-DEFIBRILLATOR ELECTRODE INSERT, DUAL per pateint report SMALL BOWEL ENDOSCOPY DIAGNOSTIC N/A 10/23/2021 normal/SMALL INTESTINE ENDOSCOPY DIAGNOSTIC performed by Annelise Diaz MD at [facility] SMALL BOWEL ENDOSCOPY W/BX 07/03/2010 await path results, path shows no evidence of Barretts, mild irritation of stomach without evidenceof h Pylori no evidence of celiac disease, repeat in 3 years SPIROMETRY B/A BRONCHODILATOR 10/04/2014 moderate obstructive airways disease with no improvement with bronchodilators, sever air trapping, mild hyperinflation, severe decrease in diffusing capacity US RENAL 11/16/2017 stable kidneys and bladder, no stones. 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 Employer: [employer] Occupation: [employer] Employer: [employer] Tobacco Use Smoking status: Former Packs/day: 2.00 Years: 10.00 Additional pack years: 0.00 Total pack years: 20.00 Types: Cigarettes Quit date: 01/27/1998 Years since quittin.0 Smokeless tobacco: Never Vaping Use Vaping Use: Never used Substance and Sexual Activity Alcohol use: No Drug use: No Sexual activity: Not Currently Partners: Female Other Topics Concern Service Not Asked Blood Transfusions Yes Caffeine Concern Not Asked Occupational Exposure Not Asked Hobby Hazards Not Asked Sleep Concern Not Asked Stress Concern Not Asked Weight Concern Not Asked Special Diet Yes Comment: low salt, diabetic Back Care Not Asked Exercise Not Asked Bike Helmet Not Asked Seat Belt Not Asked Self-Exams Not Asked Social History Narrative [place] [employer] [place] before the [employer] bankrupted him. Passed 11/2021 from dementia Social Determinants of Health Financial Resource Strain: Not on file Food Insecurity: No Food Insecurity (05/28/2022) Hunger Vital Sign Worried About Running Out of Food in the Last Year: Never true Ran Out of Food in the Last Year: Never true Transportation Needs: Not on file Physical Activity: Not on file Stress: Not on file Social Connections: Not on file Intimate Partner Violence: Not on file Housing Stability: Not on file Review of patient's allergies indicates: Allergen Reactions Hydromorphone Other reaction(s): Nausea Other reaction(s): Nausea Methylprednisolone Steroid psychosis Other reaction(s): AMS Other reaction(s): AMS Prednisone Other reaction(s): INCREASE BLOOD SUGAR Other reaction(s): INCREASE BLOOD SUGAR Prasugrel bleeding Objective: BP 120/60 | Pulse 89 | Temp 36.7 C (98 F) (Tympanic) | Wt 115.2 kg (254 lb) | SpO2 95% | BMI 43.60 kg/m | BSA 2.28 m Physical Exam: General: alert, no distress, well nourished, well developed, and chronically ill appearing male Extremities: right distal index finger erythematous and swollen around the base of the nail and thelateral aspect of the nail. Small scabbed area to the lateral periungual area. No fluctuance or drainage. Extensive ROS Constitutional (f/c/wt/vision/hearing): Negative Resp (cough/sob/goetz): Negative CV (cp/palp/fluttering/diaphoresis/goetz/pnd):Negative GI (n/v/d/hrtburn): see above hpi Endo (hair/cold or heat intol/ 3 p's): +diabetes Neuro (shaking/weak/fatigu/parasthesi/): Negative Skin (rash/easy bruis/xerosis): see above hpi Psy (si/hi/halluc/): Negative (nocturia/hesit/drib/sexual review): see above hpi Lymph (swollen glands/b sx's/: Negative ASSESSMENT: Finger infection (Primary) - Cephalexin 500 MG Oral Capsule (Keflex); Take 1 Capsule by mouth in the morning and 1 Capsule before bedtime. Do all this for 10 days. - ORTHOPAEDICS REFERRAL OP Psoriatic arthropathy (HCC) Prostate cancer (HCC)--follow-up with urology Iron deficiency anemia due to chronic blood loss--on Octreotide but wants to switch to a monthly injection. Will follow-up with GI as this was previously denied by insurance. Check-out note: Can he be taken off text messages and be called instead for appointment reminders? PLAN: Continue present medication(s): Begin medication(s): Cephalexin for infected distal finger. Referral(s) to: Orthopedics in case debridement is required. Patient education: Discussed follow-up with GI regarding Octreotide and the medication that was denied. Discussed that if the medication that was denied was not used to treat prostate cancer (he is on it for GI bleeding) then that would not help with the prior auth. Requests message be sent to GI about it. Will see if front loader residential driver can turn off text messages to patient and call instead. Follow up: As scheduled with PCP. Monica Guerrero MD I spent a total of 38 minutes coordinating, documenting, and providing care for this patient excluding time spent in the performance of separately billed services or time spent by another provider/QHP. documented in this encounter Nursing Notes * Perla Carter LPN - 02/01/2023 10:38 AM EST Right index finger infected? Home health aide trimmed nail yesterday but it has been painful & swollen. documented in this encounter Plan of Treatment Upcoming Encounters Date Type Department Care Team (Late st Contact Info) Description 02/22/2023 11:20 AM EST Office Visit Pharmacy, [address] [place] [phone] [place] [address] 03/04/2023 10:30 AM EST Office Visit Gastroenterology [address] [place] [address] Marielena Hall CRNP [address] [facility] [place] [address] 03/07/2023 8:20 AM EST Office Visit Dermatology [address] [place] [address] Meron Aragon PA-C [address] [place] [address] [place] [address] 03/09/2023 2:30 PM EST Office Visit Orthopaedics [facility] [address] [place] [address] Bayron Reeves MD [address] [place] [address] 03/28/2023 9:30 AM EST Office Visit Cardiology, [facility] [address] [place] [address] Nevaeh Linda PA-C [address] [place] [address] [place] [address] 03/29/2023 11:00 AM EST Office Visit Family Medicine [address] [place] [phone] Nicola Prado MD [address] [place] [address] [place] [address] 03/29/2023 12:30 PM EST Office Visit Cardiology [address] [place] [address] Blair Hannah PA-C [address] [place] [address] 04/05/2023 9:45 AM EST Office Visit Urology, [facility] [address] [place] [address] Denny Armando MD [address] [place] [address] [place] [address] 05/20/2023 2:00 PM EDT Office Visit Rheumatology [address] [place] [phone] Jenni Perez CRNP [address] [place] [address] [place] [address] 06/02/2023 11:00 AM EDT Nurse Only Ancillary [address] [place] [address] Neeraj Nurse [address] [place] [address] 10/12/2023 11:20 AM EDT Office Visit Sleep Disorders Ctr [facility] [address] [facility] [place] [phone] Eulalia Milligan DO [address] [facility] [place] [address] 10/25/2023 10:00 AM EDT Cardiac Studies Cardiology [address] [place] [address] Neeraj, Pacer Clinic [facility] [address] [facility] [place] [address] 12/12/2023 3:00 PM EDT Office Visit Nephrology [address] [place] [address] Quin Narvaez MD [address] [place], [place] [address] Scheduled Procedures Name Priority Associated Diagnoses Date/Ti me ESOPHAGOGASTRODUODENOSCOPY ( EGD), FLEXIBLE, TRANSORAL, DIAGNOSTIC Recall Stubbs esophagus COLONOSCOPY FLEXIBLE PROXIMAL DIAGNOSTIC Recall History of colon polyps Scheduled Referrals Name Type Priority Associated Diagnoses Order Schedule ORTHOPAEDICS REFERRAL OP Referral Within 10 days (routine) Finger infection Ordered: 02/01/2023 Health Maintenance Due Date Last Done Comments [...] 12/20/2018, Additional history exists HbA1c 06/27/2023 12/27/2022, 0804/2022, 04/22/2022, Additional history exists GFR 07/30/2023 01/28/2023, 11/14, 11/19/2022, Additional history exists Albumin/Creatinine Ratio 01/29/2024 023, 04/22/2022, 03/24/2022, Additional history exists O2 ASSESSMENT COMPLETED IN PAST YEAR FOR COPD 02/02/2024 02/01/2023 Stubbs's Esophagus Surveilance 09/09/2024 09/09/2021, 06/26/2021, 05/22/2021, Additional [...] this encounter Medical Devices Implanted Type Area Tracer Lathe Set Up Operator Device Identifier Shelf Expiration Date Model / Serial / Lot Sut Steel 6 [id number] - [id number] Implanted:Qty: 6 on 07/10/2008 at [place] [facility] N/A: Chest DO NOT USE 08/14/2012 [id number] / / [id number] documented as of this encounter Visit Diagnoses Diagnosis Finger infection- Primary Unspecified local infection of skin and subcutaneous tissue Psoriatic arthropathy (HCC) Psoriatic arthropathy Prostate cancer (HCC) Malignant neoplasm of prostate Iron deficiency anemia due to chronic blood loss Iron deficiency anemia secondary to blood loss (chronic) documented in this encounter Advance Directives Documents on File Type Date Recorded Patient 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 No Code Status History Code Status Date Activated Date Inactivated Comments Full Code 07/10/2008 6:37 PM 07/21/2008 4:52 PM This o rder reflects the patients wishes and were consensually agreed upon. Full Code 07/04/2008 2:18 PM 07/10/2008 6:30 PM Healthcare Agents on File Name Relationship Healthcare Agent Relationshi p Communication hSane Beltran Adult Child Health Care Repr esentative (appointed verbally by patient or by statute hierarchy) Care Teams Scrap Picker Relationship Specialty Start Date End Date Nicola Prado MD [address] [place] [address] [place] [address] PCP - General Family Medicine 06/19/21 documented as of this encounter
--- OUTSIDE RECORDS SUMMARY | 2023-02-03 20:14 | External Medical Summary | Summary of Care ---
Author Name Unknown Organization [facility] Address [address] [place] [address] Phone [phone] Care Team Providers Care Laboratory Machinist Name Role Phone Nicola Prado MD Primary Care Provide r Reason for Visit * Reason Onset Date Comments Test Results 02/01/2023 Labs results Encounter Details Date Type Department Care Team (Late st Contact Info) Description 02/01/2023 Telephone Pharmacy, [address] [place] [address] [address] [place] [address] Test Results (Labs results ) Allergies Active [...] AHP. 0 12/02/2022 Active Easy Touch Pen Paradise 31G X 8 MM (Insulin Pen Needle)Indications: Type 2 diabetes mellitus with hemoglobin A1c goal of less than 8.0% ([facility]),Type 2 diabetes mellitus with stage 4 chronic kidney disease, unspecified whether fdc insulin use (HCC) Use up to eight [...] per day. 110 mL 3 12/28/2022 Active Similar Pagesuch UltraSoft LancetsIndications: Type 2 diabetes mellitus with hemoglobin A1c goal of less than 8.0% ([facility]) Test blood sugar up to five times daily; dx E11.9 450 Each 3 01/02/2023 Active Similar Pagesuch Ultra In Vitro Strip (Glucose Blood)Indications:T ype 2 diabetes mellitus with hemoglobin A1c goal of less than 8.0% (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 12/27/2022 Atherosclerosis of coronary artery bypass graft of [place] heart with angina pectoris 10/13/2022 Encounter for [...] urinary tract symp toms 07/13/2001 Atherosclerosis of [place] co ronary artery of [place] heart without angina pectoris documented as of [...] TIA (transient ischemic attack) 02/04/2016 11/23/2017 Overview: [facility] Anemia of chronic renal failure 07/30/2015 [...] CASE MANAGEMENT 07/22/200812/01 Overview: Kianna Lyn, RN [phone] Examination following surgery 07/11/2008 12/31/2011 Difficult intubation 07/10/2008 021 Overview: Patient seen and examined in OR#1.Possible difficult intubation.TM distance about 5 cms.MP 3-4. Will plan FOB electively Due to current situation. EXAMINATION OF PARTICIPANT I N CLINICAL TRIAL-genomics 07/04/2008 05/30/2009 Overview: Renamed Per Clinical Trials Billing Project. Study Titile: Genomic Markers for Patients with Cardiovascular Disease Project #[id number] PI: Miriam Roque MD Please call [phone] with study related questions Chronic coronary artery [...] not at goal 07/04/200809/06 GENOMICS CARDIO RESEARCH OTHER*[id number] 07/04/2008 03/23/2016 Overview: Renamed Per Clinical Trials Billing Project. Study Titile: Genomic Markers for Patients with Cardiovascular Disease Project #[id number] PI: Miriam Roque MD Please call [phone] with study related questions Kidney disease, chronic, [...] Prodigy talking meter has been ordered at [facility] and ready to be picked up. He plans to do so today. Agreeable to retrying CGM therapy. Will plan to place [facility] order for Dexocm G7 today. Placement scheduled x3 weeks. Remind-me sent to f/u on status of order. Karlene Alvarez RPh, PharmD Clinical Pharmacist - Commercial Lease Administrator Medication Therapy [facility] 02/01/2023, 11:18 AM [phone] * Telephone Encounter - Karen Horton OSA - 02/01/2023 11:12 AM EST Ortiz would like someone to call him on his lab results from last week. documented in this encounter Plan of Treatment Upcoming Encounters Date Type Department Care Team (Late st Contact Info) Description 02/22/2023 11:20 AM EST Office Visit Pharmacy, [address] [place] [address] [place] [address] 03/04/2023 10:30 AM EST Office Visit Gastroenterology [address] [place] [address] Marielena Hall CRNP [address] [place] [address] 03/07/2023 8:20 AM EST Office Visit Dermatology [address] [place] [address] Meron Aragon PA-C [address] [place] [address] [place] [address] 03/09/2023 2:30 PM EST Office Visit Orthopaedics [facility] [address] [place] [address] Bayron Reeevs MD [address] [place] [address] 03/28/2023 9:30 AM EST Office Visit Cardiology, [facility] [address] [place] [address] Nevaeh Linda PA-C [address] [place] [address] [place] [address] 03/29/2023 11:00 AM EST Office Visit Family Medicine [address] [place] [phone] Nicola Prado MD [address] [place] [address] [place] [address] 03/29/2023 12:30 PM EST Office Visit Cardiology [address] [place] [address] Blair Hannah PA-C [address] [place] [address] 04/05/2023 9:45 AM EST Office Visit Urology, [facility] [address] [facility] [place] [address] Denny Armando MD [address] [address] [place] [address] 05/20/2023 2:00 PM EDT Office Visit Rheumatology [address] [place] [phone] Jenni Perez CRNP [address] [place] [address] [place] [address] 06/02/2023 11:00 AM EDT Nurse Only Ancillary [address] [place] [address] [place], Nurse Annual [address] [place] [address] 10/12/2023 11:20 AM EDT Office Visit Sleep Disorders Ctr [facility] [address] [facility] [place] [phone] Eulalia Milligan DO [address] [place] [address] 10/25/2023 10:00 AM EDT Cardiac Studies Cardiology [address] [place] [address] [facility] Pacer [facility] [address] [facility] [place] [address] 12/12/2023 3:00 PM EDT Office Visit Nephrology [address] [place] [address] Quin Narvaez MD [address] [place] [address] Scheduled Procedures Name Priority Associated Diagnoses Date/Ti [...] this encounter Medical Devices Implanted Type Area Corporate Meeting Planner Device Identifier Shelf Expiration Date Model / Serial / Lot Sut Steel 6 [id number] - [id number] Implanted:[place] 6 [place] 07[place]10[place] [facility] [place] Chest DO NOT USE 08/14/2012 [id number] / / [id number] documented as of this encounter Visit Diagnoses Diagnosis Type 2 diabetes mellitus with hemoglobin A1c goal of less than 8.0% (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 No Code Status History Code Status Date [...] patient or by statute hierarchy) Care Teams Laboratory Machinist Relationship Specialty Start Date End Date Nicola Prado MD [address] [place] [address] [place] [address] PCP - General Family Medicine 06/19/21 documented as of this encounter
--- OUTSIDE RECORDS SUMMARY | 2023-02-03 20:14 | External Medical Summary | Summary of Care ---
Author Name Unknown Organization [facility] Address [address] [place] [address] Phone [phone] Care Team Providers Care Drum Worker Name Role Phone Nicola Prado MD Primary Care Provide r Reason for Visit * Reason Comments Outpatient Testing Encounter Details Date Type Department Care Team (Late st Contact Info) Description 01/28/2023 2:40 PM EST Laboratory Laboratory [address] [place] [phone] [place] [address] Stage 3b chronic kidney disease (HCC) Allergies Active Allergy Reactions Criticality Noted Date Comments Hydromorphone High 09/20/2021 Other reaction(s): Nausea Other reaction(s): Nausea 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/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 Other reaction(s): AMS Other reaction(s): AMS Prasugrel 04/02/2016 bleeding Prednisone High 09/20/2021 Other reaction(s): INCREASE BLOOD SUGAR Other reaction(s): INCREASE BLOOD SUGAR documented as of this encounter (statuses as of 01/28/2023) Medications Medication Sig Dispensed Refills Start Date [...] disease, with long-term current use of insulin (HCC) Inject 1.8 mg under the skin daily. [...] AHP. 0 12/02/2022 Active Easy Touch Pen [place] 31G X 8 MM (Insulin Pen Needle)Indications:T ype 2 diabetes mellitus with hemoglobin A1c goal of less than 8.0% (HCC),Type 2 diabetes mellitus with stage 4 chronic kidney disease, unspecified whether extermination supervisor insulin use (HCC) Use up to eight times daily with insulin. DXe11.9 600 Each 3 12/07/2022 Active Allopurinol 300 MG Oral Tablet (Zyloprim) Take 1 Tablet by mouth daily. 90 Tablet 1 12/17/2022 Active NovoLOG FlexPen 100 UNIT/ML Subcutaneous Solution Pen-injector (insulin aspart)Indications:T ype 2 diabetes mellitus with hemoglobin A1c goal of less than 8.0% ([facility]) Inject 12 units with breakfast and supper PLUS correction factor of 1:25 if over 140 mg/dL. Up to 120 units per day. 110 mL 3 12/28/[address] [employer] UltraSoft LancetsIndications:T ype 2 diabetes mellitus with hemoglobin A1c goal of less than 8.0% ([facility]) Test blood sugar up to five times daily; dx E11.9 450 Each 3 01/02/2023 Active [employer] Ultra In Vitro Strip (Glucose Blood)Indications:Ty pe 2 diabetes mellitus with hemoglobin A1c goal of less than 8.0% ([facility]) Test 3-4 times a day 100 Strip 3 01/11/2023 Active [employer] No Coding Blood Gluc In Vitro Strip (Glucose Blood) Use as directed to test blood sugars up to four times daily DxE11.9 400 Strip 3 01/12/2023 Active [employer] Voice Blood Glucose w/Device Kit Use as [...] as of this encounter (statuses as of 01/28/2023) Active Problems Problem Noted Date Diagnosed Date Atherosclerosis of eek co ronary artery of eek heart with stable angina pectoris 12/27/2022 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 Test performed by [employer]ori FOOD CHEMIST CPFT Body mass index (BMI) of 45. [...] Overview: Per Obesity protocol #1 Primary hypertension 01/27/20172 021 Type 2 diabetes mellitus wit h diabetic chronic kidney disease 11/10/2016 04/08/2022 Sinus tachycardia 11/04/2016 08/07/2018 CAPONE (dyspnea on exertion) 11/04/2016 TIA (transient ischemic attack) 02/04/2016 11/23/2017 Overview: [facility] Anemia of chronic renal failure 07/30/2015 01/27/2017 [...] term ACTIVE CASE MANAGEMENT 07/22/200812/01 Overview: Kianna Lyn RN [phone] Examination following surgery 07/11/2008 12/31/2011 Difficult intubation 07/10/2008 021 Overview: Patient seen and examined in OR#1.Possible difficult intubation.TM distance about 5 cms.MP 3-4. Will plan FOB electively Due to current situation. EXAMINATION OF PARTICIPANT I N CLINICAL TRIAL-genomics 07/04/2008 05/30/2009 Overview: Renamed Per Clinical Trials Billing Project. Study Titile: Genomic Markers for Patients with Cardiovascular Disease Project #[id number] PI: Miriam Roque MD Please call [phone] with study related questions Chronic coronary artery [...] not at goal 07/04/200809/06 GENOMICS CARDIO RESEARCH OTHER*[id number] 07/04/2008 03/23/2016 Overview: Renamed Per Clinical Trials Billing Project. Study Titile: Genomic Markers for Patients with Cardiovascular Disease Project #[id number] PI: Miriam Roque MD Please call [phone] with study related questions Kidney disease, chronic, [...] as of this encounter (statuses as of 01/28/2023) Immunizations Name Administration Dates Next Due COVID-19 mRNA, LNP-s, No Pre serve, 2-Dose Series (PacketVideo) 12/09/2020,05/09/2020,04/11/2020 COVID-19, LNP-s, No Preserve , Juan [...] on file documented as of this encounter Plan of Treatment Upcoming Encounters Date Type Department Care Team (Late st Contact Info) Description 03/04/2023 10:30 AM EST Office Visit Gastroenterology [address] [place] [address] Marielena Hall CRNP [address] [facility] [place] [address] 03/28/2023 9:30 AM EST Office Visit Cardiology, [facility] [address] [facility] [place] [address] Nevaeh Linda PA-C [address] [place] [address] [place] [address] 03/29/2023 11:00 AM EST Office Visit Family Medicine [address] [place] [phone] Nicola Prado MD [address] [place] [address] [place] [address] 03/29/2023 12:30 PM EST Office Visit Cardiology [address] [place] [address] Blair Hannah PA-C [address] [place] [address] 04/05/2023 9:45 AM EST Office Visit Urology, [facility] [address] [place] [address] Denny Armando MD [address] [facility] [place] [address] [place] [phone] 05/20/2023 2:00 PM EDT Office Visit Rheumatology [address] [place] [phone] Jenni Perez CRNP [address] [place] [address] [place] [address] 06/02/2023 11:00 AM EDT Nurse Only Ancillary [address] [place] [address] Nurse Neeraj [address] [place] [address] 10/12/2023 11:20 AM EDT Office [facility] [place] [phone] Eulalia Milligan DO [address] [place] [address] 10/25/2023 10:00 AM EDT Cardiac Studies Cardiology [address] [place] [address] [facility] [address] [place] [address] Pending Results Name Type Priority Associated Diagnoses Date /Time BASIC METABOLIC PANEL Lab Routine Stage 3b chronic kidney disease (HCC) 01/28/2023 2:33 PM EST URINALYSIS WITH MICROSCOPIC EXAM Lab Routine Stage 3b chronic kidney disease (HCC) 01/28/2023 2:33 PM EST ALBUMIN / CREATININE RATIO, URINE Lab Routine Stage 3b chronic kidney disease (HCC) 01/28/2023 2:33 PM EST Scheduled Procedures Name Priority Associated Diagnoses Date/Ti me ESOPHAGOGASTRODUODENOSCOPY ( EGD), FLEXIBLE, TRANSORAL, DIAGNOSTIC Recall Henning esophagus COLONOSCOPY FLEXIBLE PROXIMAL DIAGNOSTIC Recall History of colon polyps Health Maintenance Due Date Last Done Comments Alpha-1 Antitrypsin 1960 Zoster Vaccines (1 of 2) 1961 Hepatitis B (1 of 3 - Risk 3-dose series) 2002 Henning's Esophagus Surveilance 06/24/2018 06/25/2015, 12/05/2013 Diabetic Eye Exam 09/18/2022 09/18/2021, , 06/03/2020, Additional history exists COVID-19 Vaccine ( season) 2022 06/04/2021, 12/09/2020, 05/09/2020, Additional history exists Albumin/Creatinine Ratio 04/23/2023 023, 03/24/2022, 06/19/2021, Additional history exists Depression Screening 05/29/2023 05/28/2022 Diabetic Foot Exam 05/29/2023 05/28/2022, 0 04/24/2020, 12/20/2018, Additional history exists GFR 05/31/2023 11/29/2022, 10/0 07/2022, 11/03/2022, Additional history exists HbA1c 06/27/2023 12/27/2022, 08/2 04/2022, 04/22/2022, Additional history exists O2 ASSESSMENT COMPLETED IN PAST YEAR FOR COPD 12/28/2023 12/27/2022 COLONOSCOPY-EVERY 5 YRS AGES 18-100 10/31/2025 10/31/2020, [...] this encounter Medical Devices Implanted Type Area Blower Feeder Dyed Raw Stock Device Identifier Shelf Expiration Date Model / Serial / Lot Sut Steel 6 [id number] - [id number] Implanted:Qty: 6 on 07/10/2008 at OR [facility] [place] N/A: Chest DO NOT USE 08/14/2012 [id number] / / [id number] documented as of this encounter Visit Diagnoses Diagnosis Stage 3b chronic kidney disease (HCC) documented in this encounter Advance Directives Documents on File Type Date Recorded 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 No Code Status History Code Status Date [...] patient or by statute hierarchy) Care Teams Drum Worker Relationship Specialty Start Date End Date Nicola Prado MD [address] [place] [address] [place] [address] PCP - General Family Medicine 06/19/21 documented as of this encounter
--- OUTSIDE RECORDS SUMMARY | 2023-02-03 20:14 | External Medical Summary | Summary of Care ---
Author Name Unknown Organization [facility] Address [address] [place] [address] Phone [phone] Care Team Providers Care Ent Physician Name Role Phone Nicola Prado MD Primary Care Provide r Reason for Visit * Reason Onset Date Comments Test Results 01/31/2023 Encounter Details Date Type Department Care Team (Late st Contact Info) Description 01/31/[address] [phone] Nicola Prado MD [address] [place] [address] [place] [address] Test Results Allergies Active [...] hemoglobin A1c goal of less than 8.0% ([facility]),Type 2 diabetes mellitus with stage 4 chronic kidney disease, with long-term current use of insulin ([facility]) Inject 1.8 mg under the [...] hemoglobin A1c goal of less than 8.0% ([facility]) Inject 100 Units under the [...] AHP. 0 12/02/2022 Active Easy Touch Pen [place] 31G X 8 MM (Insulin Pen Needle)Indications:T ype 2 diabetes mellitus with hemoglobin A1c goal of less than 8.0% (HCC),Type 2 diabetes mellitus with stage 4 chronic kidney disease, unspecified whether mcc insulin use (HCC) Use up to eight times daily with insulin. DXe11.9 600 Each 3 12/07/2022 Active Allopurinol 300 MG Oral Tablet (Zyloprim) Take 1 Tablet by mouth daily. 90 Tablet 1 12/17/2022 Active NovoLOG FlexPen 100 UNIT/ML Subcutaneous Solution Pen-injector (insulin aspart)Indications:T ype 2 diabetes mellitus with hemoglobin A1c goal of less than 8.0% ([facility]) Inject 12 units with breakfast and supper PLUS correction factor of 1:25 if over 140 mg/dL. Up to 120 units per day. 110 mL 3 12/28/2022 Active [employer] UltraSoft LancetsIndications:T ype 2 diabetes mellitus with hemoglobin A1c goal of less than 8.0% ([facility]) Test blood sugar up to five times daily; dx E11.9 450 Each 3 01/02/2023 Active [employer] Ultra In Vitro Strip (Glucose Blood)Indications:Ty pe 2 diabetes mellitus with hemoglobin A1c goal of less than 8.0% ([facility]) Test 3-4 times a day 100 Strip 3 01/11/2023 Active [employer] No Coding Blood Gluc In Vitro Strip (Glucose Blood) Use as directed to test blood sugars up to four times daily DxE11.9 400 Strip 3 01/12/2023 Active [employer] Voice Blood Glucose w/Device Kit Use as [...] Problem Noted Date Diagnosed Date 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 Test performed by Dori DOCUMENT SPECIALIST CPFT Body mass index (BMI) of 45. [...] TIA (transient ischemic attack) 02/04/2016 11/23/2017 Overview: [facility] Anemia of chronic renal failure 07/30/2015 01/27/2017 [...] MANAGEMENT 07/22/200812/01 Overview: Kianna Lyn, RN [phone] Examination following surgery 07/11/2008 12/31/2011 Difficult intubation 07/10/2008 021 Overview: Patient seen and examined in OR#1.Possible difficult intubation.TM distance about 5 cms.MP 3-4. Will plan FOB electively Due to current situation. EXAMINATION OF PARTICIPANT I N CLINICAL TRIAL-genomics 07/04/2008 05/30/2009 Overview: Renamed Per Clinical Trials Billing Project. Study Titile: Genomic Markers for Patients with Cardiovascular Disease Project #[id number] PI: Miriam Roque MD Please call [phone] with study related questions Chronic coronary artery [...] not at goal 07/04/200809/06 GENOMICS CARDIO RESEARCH OTHER*[id number] 07/04/2008 03/23/2016 Overview: Renamed Per Clinical Trials Billing Project. Study Titile: Genomic Markers for Patients with Cardiovascular Disease Project #[id number] PI: Miriam Roque MD Please call [phone] with study related questions Kidney disease, chronic, [...] encounter Miscellaneous Notes * Telephone Encounter - Lisha Parrish RN [...] 10:40 AM EST Office Visit Family Medicine [address] [place] [phone] Monica Guerrero MD [address] [place] [address] [place] [address] 02/25/2023 6:10 PM EST Scheduled Telephone Pharmacy, [address] [place] [address] [place] [address] 03/04/2023 10:30 AM EST Office Visit Gastroenterology [address] [place] [address] Marielena Hall CRNP [address] [place] [address] 03/07/2023 8:20 AM EST Office Visit Dermatology [address] [place] [address] Meron Aragon PA-C [address] [place] [address] [place] [address] 03/28/2023 9:30 AM EST Office Visit Cardiology, [facility] [address] [place] [address] Nevaeh Linda PA-C [address] [place] [address] [place] [address] 03/29/2023 11:00 AM EST Office Visit Family Medicine [address] [place] [phone] Nicola Prado MD [address] [place] [address] [place] [address] 03/29/2023 12:30 PM EST Office Visit Cardiology [address] [place] [address] Blair Hannah PA-C [address] [place] [address] 04/05/2023 9:45 AM EST Office Visit Urology, [facility] [address] [place] [address] Denny Armando MD [address] [place] [address] [place] [address] 05/20/2023 2:00 PM EDT Office Visit Rheumatology [address] [place] [phone] Jenni Perez CRNP [address] [place] [address] [place] [address] 06/02/2023 11:00 AM EDT Nurse Only Ancillary [address] [place] [address] Nurse Neeraj [address] [place] [address] 10/12/2023 11:20 AM EDT Office [facility] [place] [phone] Eulalia Milligan DO 132 [facility] [place] [address] 10/25/2023 10:00 AM EDT Cardiac Studies Cardiology [address] [place] [address] [facility] [place] [address] 12/12/2023 3:00 PM EDT Office Visit Nephrology [address] [place] [address] Quin Narvaez MD [facility] [place] [address] Scheduled Procedures Name Priority Associated Diagnoses Date/Ti [...] 07/30/2023 01/28/2023, 11/14, 11/19/2022, Additional history exists O2 ASSESSMENT COMPLETED IN PAST YEAR FOR COPD 12/28/2023 12/27/2022 Albumin/Creatinine Ratio 01/29/2024 023, 04/22/2022, 03/24/2022, Additional history exists Henning's Esophagus Surveilance 09/09/2024 09/09/2021, 06/26/2021, 05/22/2021, [...] this encounter Medical Devices Implanted Type Area Boiler Operator Helper Device Identifier Shelf Expiration Date Model / Serial / Lot Lei Agrawal 6 [id number] - [id number] Implanted:Qty: 6 [place] 07[place]10/[place] [facility] [place]: Chest DO NOT USE 08/14/2012 [id number] / / [id number] documented as of this encounter Advance Directives Documents on File Type Date Recorded Patient Record Center Coordinator Expl anation Power of Hypoid Gear Generator 06/26/2019 POWER OF A TTORNEY Advance Directives [...] the patient have Health Care Power of Hypoid Gear Generator? No Code Status History Code Status Date [...] patient or by statute hierarchy) Care Teams Ent Physician Relationship Specialty Start Date End Date Nicola Prado MD [address] [place] [address] [place] [address] PCP - General Family Medicine 06/19/21 documented as of this encounter
--- OUTSIDE RECORDS SUMMARY | 2023-02-03 20:14 | External Medical Summary ---
Author Name Unknown Address Unknown Organization K01:LABORATORY [facility] - [address] [facility] [address] Laboratory Report Ordering Provider Test Date Status BENITEZ NGUYEN 01/28/2023 14:33:59 Final Observation Date Value Abnormality Reference (Units ) Status Color of Urine by Auto 01/28/2023 14:33:59 Colorless Colorless, Light Yellow, Yellow, Dark Yellow Final Clarity, Urine 01/28/2023 14:33:59 Clear Clear Final Glucose [Mass/volume] in Urine by Automated test strip 01/28/2023 14:33:59 100 Abnormal Negative (mg/dL) Final Bilirubin.total [Presence] in Urine by Automated test strip 01/28/2023 14:33:59 Negative Negative Final Ketones [Mass/volume] in Urine by Automated test strip 01/28/2023 14:33:59 Negative Negative (mg/dL) Final Specific gravity, Urine 01/28/2023 14:33:59 1.009 1.003-1.030 Final Hemoglobin [Presence] in Urine by Automated test strip 01/28/2023 14:33:59 Negative Negative Final pH, Urine 01/28/2023 14:33:59 6.5 5.0-7.5 (Units) Final Protein [Mass/volume] in Urine by Automated test strip 01/28/2023 14:33:59 30 Abnormal Negative (mg/dL) Final Urobilinogen [Mass/volume] in Urine by Automated test strip 01/28/2023 14:33:59 Normal Normal (mg/dL) Final Nitrite [Presence] in Urine by Automated test strip 01/28/2023 14:33:59 Negative Negative Final Leukocyte esterase [Presence] in Urine by Automated test strip 01/28/2023 14:33:59 Small Abnormal Negative Final RBC, Urine 01/28/2023 14:33:59 0-2 0-2 (/HPF) Final WBC, Urine 01/28/2023 14:33:59 10-19 Abnormal 0-2 (/HPF) Final Bacteria [#/area] in Urine sediment by Microscopy high power field 01/28/2023 14:33:59 51-100 Abnormal 0-25 (/HPF) Final Hyaline casts, Urine 01/28/2023 14:33:59 1-4 Abnormal None (/LPF) Final Performing Location LABORATORY [facility] - [facility] [address]. [facility] [address]
--- OUTSIDE RECORDS SUMMARY | 2023-02-03 20:14 | External Medical Summary | Summary of Care ---
Author Name Unknown Organization [facility] Address [address] [place] [address] Phone [phone] Care Team Providers Care Boat Hop Name Role Phone Nicola Prado MD Primary Care Provide r Reason for Visit * Reason Onset Date Comments Advice 11/02/2022 Diarrhea, stomac h pain Encounter Details Date Type Department Care Team (Late st Contact Info) Description 11/02/[address] [phone] Nicola Prado MD [address] [place] [address] [place] [phone] Advice (Diarrhea, stomach pain ) Allergies Active Allergy Reactions Criticality Noted [...] hemoglobin A1c goal of less than 8.0% ([facility]),Type 2 diabetes mellitus with stage 4 chronic kidney disease, with long-term current use of insulin ([facility]) Inject 1.8 mg under the skin [...] Extended Release 12 Hour (Mucinex)Indications :COPD exacerbation ([facility]) Take 1 Tablet by mouth 2 times a day as needed for Congestion. Take with plenty of water. Do not cut, crush or chew 40 Tablet 0 10/13/2022 Active Tresiba FlexTouch 200 UNIT/ML Subcutaneous Solution Pen-injector (Insulin Degludec)Indications :Type 2 diabetes mellitus with hemoglobin A1c goal of less than 8.0% ([facility]) Inject 100 Units under the skin daily. 90 mL 3 10/25/2022 Active Octreotide Acetate 50 MCG/ML Injection Solution (Sandostatin) Inject 50mcg under the skin in the morning and the evening. 180 mL 1 11/01/2022 Active Hospital, Clinic, or Other Facility Administered Medication Ordered Dose Route Frequency Start Date End Date Status Albuterol Sulfate (Proventil) (2.5 MG/3ML) 0.083% inhalation solution 2.5 mgIndications:Dyspnea and respiratory abnormalities 2.5 mg NEBULIZER PRN 05/18/2022 05/18/2023 Active documented as of this encounter (statuses as of 02/01/2023) Active Problems Problem Noted Date Diagnosed Date Atherosclerosis of [place] co ronary artery of [place] heart with stable angina pectoris 12/27/2022 Atherosclerosis of coronary artery bypass graft of [place] heart with angina pectoris 10/13/2022 Encounter for [...] urinary tract symp toms 07/13/2001 Atherosclerosis of [place] co ronary artery of [place] heart without angina pectoris documented as of [...] use aero chamber. Test performed by Dori MANE Body mass index (BMI) of 45. 0 [...] TIA (transient ischemic attack) 02/04/2016 11/23/2017 Overview: [facility] Anemia of chronic renal failure 07/30/2015 01/27/2017 [...] CASE MANAGEMENT 07/22/200812/01 Overview: Kianna Lyn RN [phone] Examination following surgery 07/11/2008 12/31/2011 Difficult intubation 07/10/2008 021 Overview: Patient seen and examined in OR#1.Possible difficult intubation.TM distance about 5 cms.MP 3-4. Will plan FOB electively Due to current situation. EXAMINATION OF PARTICIPANT I N CLINICAL TRIAL-genomics 07/04/2008 05/30/2009 Overview: Renamed Per Clinical Trials Billing Project. Study Titile: Genomic Markers for Patients with Cardiovascular Disease Project #[id number] PI: Miriam Roque MD Please call [phone] with study related questions Chronic coronary artery [...] not at goal 07/04/200809/06 GENOMICS CARDIO RESEARCH OTHER*[id number] 07/04/2008 03/23/2016 Overview: Renamed Per Clinical Trials Billing Project. Study Titile: Genomic Markers for Patients with Cardiovascular Disease Project #[id number] PI: Miriam Roque MD Please call [phone] with study related questions Kidney disease, chronic, [...] mRNA, LNP-s, No Pre serve, 2-Dose Series ([employer]) 12/09/2020,05/09/2020,04/11/2020 COVID-19, LNP-s, No Preserve , Juan Manuel-sucrose, Ages 12+ ([employer]) 06/04/2021 H1N1 2009 Influenza, IM 01/04/2009 MMR [...] encounter Miscellaneous Notes * Telephone Encounter - Socorro Suero LPN - 11/02/2022 9:04 AM EDT Provider to address: Alissa Drew PA-C Reason for Call: Advice (Diarrhea, stomach pain ) Contact: Telephone Call Contact Type: Information Outcome: Apt Apt Tomorrow Keep Drinking Fluids and Imodium Ref ER or Urgent care for tx Total Time including non face to face (minutes): 5 * Telephone Encounter - Yanira Quintero LPN - 11/02/2022 8:48 AM EDT Patient states that he is having diarrhea 4 times a day for the past 4 days He has had 2 episodes today already There is a little bit of consistency to his BM, it is not completely water He is having some rectal pain, only when he has diarrhea Having stomach pains that goes across his entire lower abdomin He is concerned that he may have diverticulitis or C Diff Was on an antibiotic 3-4 weeks ago and has had C 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 He has had diverticulitis before but he can't recall where his pain was or if this is the same Patient is upset that he is not able to get an appt to be see today He feels that waiting until tomorrow is too long He states that he does not want to go to the ER He wants to know what provider recommends Advised that I would be asking a covering provider because his PCP is out of the office today Called office and transferred patient to [place] * Telephone Encounter - Lucia Milligan OSA - 11/02/2022 8:39 AM EDT Pt calling with diarrhea that he has had for 4 days and stomach pain, he wanted an appt for today, none available. I scheduled him for tomorrow morning 11/03 but he would like to speak with a nurse now to see what he can do until the time of appt. Transferred to nurse line, pt disconnected before I could transfer. documented in this encounter Plan of Treatment Upcoming Encounters Date Type Department Care Team (Late st Contact Info) Description 02/22/2023 11:20 AM EST Office Visit Pharmacy, [address] [place] [address] [place] [address] 03/04/2023 10:30 AM EST Office Visit Gastroenterology [address] [place] [address] Marielena Hall CRNP [address] [place] [address] 03/07/2023 8:20 AM EST Office Visit Dermatology [address] [place] [address] Meron Aragon PA-C [address] [place] [address] [place] [address] 03/09/2023 2:30 PM EST Office Visit Orthopaedics [facility] [address] [place] [address] Bayron Reeves MD [address] [place] [address] 03/28/2023 9:30 AM EST Office Visit Cardiology, [facility] [address] [place] [address] Nevaeh Linda PA-C [address] [place] [address] [place] [address] 03/29/2023 11:00 AM EST Office Visit Family Medicine [address] [place] [phone] Nicola Prado MD [address] [place] [address] [place] [address] 03/29/2023 12:30 PM EST Office Visit Cardiology [address] [place] [address] Blair Hannah PA-C [address] [place] [address] 04/05/2023 9:45 AM EST Office Visit Urology, [facility] [address] [place] [address] Denny Armando MD 27 [facility] [address] [place] [address] 05/20/2023 2:00 PM EDT Office Visit Rheumatology [address] [place] [phone] Jenni Perez CRNP [address] [facility] [place] [address] 06/02/2023 11:00 AM EDT Nurse Only Ancillary [address] [place] [address] Nurse Neeraj [address] [place] [address] 10/12/2023 11:20 AM EDT Office Visit Sleep Disorders Ctr [facility] [address] [place] [phone] Eulalia Milligan DO [address] [place] [address] 10/25/2023 10:00 AM EDT Cardiac Studies Cardiology [address] [place] [address] Keith Pickard [facility] [address] [place] [address] 12/12/2023 3:00 PM EDT Office Visit Nephrology [address] [place] [address] Quin Narvaez MD [address] [place] [address] Scheduled Procedures Name Priority Associated Diagnoses Date/Ti [...] this encounter Medical Devices Implanted Type Area Heavy Equipment Rental Manager Device Identifier Shelf Expiration Date Model / Serial / Lot Sut Steel 6 [id number] - [id number] Implanted:Qty: 6 on 07/10/2008 at [place] [facility] [place] N/A: Chest DO NOT USE 08/14/2012 M654G / / [id number] documented as of this encounter Additional Health Concerns Infection Onset Date Last Indicated Resolved Time C. difficile Rule-Out 11/05/2022 11/05/20222022 10:17 PM EDT C. difficile 11/05/2022 11/05/2022 12/05/2022 12:2 0 AM EDT documented as of this encounter Advance Directives Documents on File Type Date Recorded Patient Zipper Lining Folder Expl anation Power of Digital Photographer 06/26/2019 POWER OF A TTORNEY Advance Directives [...] the patient have Health Care Power of Digital Photographer? No Code Status History Code Status Date [...] patient or by statute hierarchy) Care Teams Boat Hop Relationship Specialty Start Date End Date Nicola Prado MD [address] [place] [address] [place] [address] PCP - General Family Medicine 06/19/21 documented as of this encounter
--- OUTSIDE RECORDS SUMMARY | 2023-02-03 20:14 | External Medical Summary | Summary of Care ---
Author Name Unknown Organization [facility] Address [address] [place] [address] Phone [phone] Care Team Providers Care Foreign Agent Name Role Phone Nicola Prado MD Primary Care Provide r Reason for Visit * Reason Onset Date Comments Test Results 01/31/2023 Encounter Details Date Type Department Care Team (Late st Contact Info) Description 01/31/[address] [phone] Nicola Prado MD [address] [place] [address] [place] [address] Test Results Allergies Active [...] hemoglobin A1c goal of less than 8.0% ([facility]),Type 2 diabetes mellitus with stage 4 chronic kidney disease, with long-term current use of insulin ([facility]) Inject 1.8 mg under the skin [...] hemoglobin A1c goal of less than 8.0% ([facility]) Inject 100 Units under the skin [...] AHP. 0 12/02/2022 Active Easy Touch Pen [place] 31G X 8 MM (Insulin Pen Needle)Indications:T ype 2 diabetes mellitus with hemoglobin A1c goal of less than 8.0% ([facility]),Type 2 diabetes mellitus with stage 4 chronic kidney disease, unspecified whether correction insulin use ([facility]) Use up to eight times daily with insulin. DXe11.9 600 Each 3 12/07/2022 Active Allopurinol 300 MG Oral Tablet (Zyloprim) Take 1 Tablet by mouth daily. 90 Tablet 1 12/17/2022 Active NovoLOG FlexPen 100 UNIT/ML Subcutaneous Solution Pen-injector (insulin aspart)Indications:T ype 2 diabetes mellitus with hemoglobin A1c goal of less than 8.0% ([facility]) Inject 12 units with breakfast and supper PLUS correction factor of 1:25 if over 140 mg/dL. Up to 120 units per day. 110 mL 3 12/28/2022 Active [employer] UltraSoft LancetsIndications:T ype 2 diabetes mellitus with hemoglobin A1c goal of less than 8.0% ([facility]) Test blood sugar up to five times daily; dx E11.9 450 Each 3 01/02/2023 Active [employer] Ultra In Vitro Strip (Glucose Blood)Indications:Ty pe 2 diabetes mellitus with hemoglobin A1c goal of less than 8.0% ([facility]) Test 3-4 times a day 100 Strip 3 01/11/2023 Active [employer] No Coding Blood Gluc In Vitro Strip (Glucose Blood) Use as directed to test blood sugars up to four times daily DxE11.9 400 Strip 3 01/12/2023 Active [employer] Voice Blood Glucose w/Device Kit Use as [...] Problem Noted Date Diagnosed Date Atherosclerosis of [place] co ronary artery of [place] heart with stable angina pectoris 12/27/2022 Atherosclerosis of coronary artery bypass graft of [place] heart with angina pectoris 10/13/2022 Encounter for [...] urinary tract symp toms 07/13/2001 Atherosclerosis of [place] co ronary artery of [place] heart without angina pectoris documented as of [...] use aero chamber. Test performed by Dori BRASS POLISHER CPFT Body mass index (BMI) of 45. [...] TIA (transient ischemic attack) 02/04/2016 11/23/2017 Overview: [facility] Anemia of chronic renal failure 07/30/2015 01/27/2017 [...] MANAGEMENT 07/22/200812/01 Overview: Kianna Lyn, RN [phone] Examination following surgery 07/11/2008 12/31/2011 Difficult intubation 07/10/2008 021 Overview: Patient seen and examined in OR#1.Possible difficult intubation.TM distance about 5 cms.MP 3-4. Will plan FOB electively Due to current situation. EXAMINATION OF PARTICIPANT I N CLINICAL TRIAL-genomics 07/04/2008 05/30/2009 Overview: Renamed Per Clinical Trials Billing Project. Study Titile: Genomic Markers for Patients with Cardiovascular Disease Project #[id number] PI: Miraim Roque MD Please call [phone] with study related questions Chronic coronary artery [...] not at goal 07/04/200809/06 GENOMICS CARDIO RESEARCH OTHER*[id number] 07/04/2008 03/23/2016 Overview: Renamed Per Clinical Trials Billing Project. Study Titile: Genomic Markers for Patients with Cardiovascular Disease Project #[id number] PI: Miriam Roque MD Please call [phone] with study related questions Kidney disease, chronic, [...] 10:40 AM EST Office Visit Family Medicine [address] [place] [phone] Monica Guerrero MD [address] [place] [address] [place] [address] 02/25/2023 6:10 PM EST Scheduled Telephone Pharmacy, [address] [place] [address] [place] [address] 03/04/2023 10:30 AM EST Office Visit Gastroenterology [address] [place] [address] Marielena Hall CRNP [address] [place] [address] 03/07/2023 8:20 AM EST Office Visit Dermatology [address] [place] [address] Meron Aragon PA-C [address] [place] [address] [place] [address] 03/28/2023 9:30 AM EST Office Visit Cardiology, [facility] [address] [place] [address] Nevaeh Linda PA-C [address] [place] [address] [place] [address] 03/29/2023 11:00 AM EST Office Visit Family Medicine [address] [place] [phone] Nicola Prado MD [address] [place] [address] [place] [address] 03/29/2023 12:30 PM EST Office Visit Cardiology [address] [place] [address] Blair Hannah PA-C [address] [place] [address] 04/05/2023 9:45 AM EST Office Visit Urology, [facility] [address] [place] [address] Denny Armando MD [address] [place] [address] [place] [address] 05/20/2023 2:00 PM EDT Office Visit Rheumatology [address] [place] [phone] Jenni Perez CRNP [address] [place] [address] [place] [address] 06/02/2023 11:00 AM EDT Nurse Only Ancillary [address] [place] [address] Nurse Neeraj [address] [place] [address] 10/12/2023 11:20 AM EDT Office Visit [facility] Disorders C[facility] [place] [facility] [place] [phone] Eulalia Milligan DO 132 [facility] [place] [address] 10/25/2023 10:00 AM EDT Cardiac Studies Cardiology [address] [place] [address] [facility] 132 [facility] [place] [address] 12/12/2023 3:00 PM EDT Office Visit Nephrology [address] [place] [address] Quin Narvaez MD [address] [facility] [place] [address] Scheduled Procedures Name Priority Associated Diagnoses Date/Ti [...] this encounter Medical Devices Implanted Type Area Acid Patroller Device Identifier Shelf Expiration Date Model / Serial / Lot Lei Agrawal 6 M654g - [id number] Implanted:Q[place] 6 on 07[place]10[place] [facility] [place]: Chest DO NOT USE 08/14/2012 [id number] / / [id number] documented as of this encounter Advance Directives Documents on File Type Date Recorded Patient Sales Negotiator Expl anation Power of Agricultural Specialist 06/26/2019 POWER OF A TTORNEY Advance Directives [...] the patient have Health Care Power of Agricultural Specialist? No Code Status History Code Status Date [...] patient or by statute hierarchy) Care Teams Foreign Agent Relationship Specialty Start Date End Date Nicola Prado MD [address] [place] [address] [place] [address] PCP - General Family Medicine 06/19/21 documented as of this encounter
--- OUTSIDE RECORDS SUMMARY | 2023-02-03 20:14 | External Medical Summary | Summary of Care ---
Author Name Unknown Organization [facility] Address [address] [place] [address] Phone [phone] Care Team Providers Care Pipe Racker Name Role Phone Nicola Prado MD Primary Care Provide r Reason for Visit * Reason Comments Chronic Kidney Disease (CKD) Encounter Details Date Type Department Care Team (Late st Contact Info) Description 01/28/2023 2:00 PM EST Office Visit Nephrology [address] [place] [address] Verito Jovel PA-C [address] [place] [address] [place] [address] Stage 3b chronic kidney disease (HCC)*; HTN, goal below 140/90; Proteinuria, unspecified type; Hyperuricemia Allergies Active Allergy Reactions Criticality Noted Date [...] hemoglobin A1c goal of less than 8.0% ([facility]),Type 2 diabetes mellitus with stage [...] hemoglobin A1c goal of less than 8.0% ([facility]) Inject 100 Units under the [...] AHP. 0 12/02/2022 Active Easy Touch Pen [place] 31G X 8 MM (Insulin Pen Needle)Indications:T ype 2 diabetes mellitus with hemoglobin A1c goal of less than 8.0% ([facility]),Type 2 diabetes mellitus with stage 4 chronic kidney disease, unspecified whether longterm insulin use (HCC) Use up to eight times daily with insulin. DXe11.9 600 Each 3 12/07/2022 Active Allopurinol 300 MG Oral Tablet (Zyloprim) Take 1 Tablet by mouth daily. 90 Tablet 1 12/17/2022 Active NovoLOG FlexPen 100 UNIT/ML Subcutaneous Solution Pen-injector (insulin aspart)Indications:T ype 2 diabetes mellitus with hemoglobin A1c goal of less than 8.0% ([facility]) Inject 12 units with breakfast and supper PLUS correction factor of 1:25 if over 140 mg/dL. Up to 120 units per day. 110 mL 3 12/28/2022 Active AngleTouch UltraSoft LancetsIndications:T ype 2 diabetes mellitus with hemoglobin A1c goal of less than 8.0% ([facility]) Test blood sugar up to five times daily; dx E11.9 450 Each 3 01/02/2023 Active AngleTouch Ultra In Vitro Strip (Glucose Blood)Indications:Ty pe 2 diabetes mellitus with hemoglobin A1c goal of less than 8.0% ([facility]) Test 3-4 times a day 100 Strip 3 01/11/2023 Active Left of [employer] No Coding Blood Gluc In Vitro Strip (Glucose Blood) Use as directed to test blood sugars up to four times daily DxE11.9 400 Strip 3 01/12/2023 Active [employer] Voice Blood Glucose w/Device Kit Use as [...] Problem Noted Date Diagnosed Date Atherosclerosis of blackfeet co ronary artery of blackfeet heart with stable angina pectoris 12/27/2022 Atherosclerosis of coronary artery bypass graft of blackfeet heart with angina pectoris 10/13/2022 Encounter for [...] urinary tract symp toms 07/13/2001 Atherosclerosis of blackfeet co ronary artery of blackfeet heart without angina pectoris documented as of [...] use aero chamber. Test performed by Dori [facility] [employer] [facility] Body mass index (BMI) of 45. [...] TIA (transient ischemic attack) 02/04/2016 11/23/2017 Overview: [facility] Anemia of chronic renal failure [...] CASE MANAGEMENT 07/22/200812/01 Overview: Kianna Lyn RN [phone] Examination following surgery 07/11/2008 12/31/2011 Difficult intubation 07/10/2008 021 Overview: Patient seen and examined in OR#1.Possible difficult intubation.TM distance about 5 cms.MP 3-4. Will plan FOB electively Due to current situation. EXAMINATION OF PARTICIPANT I N CLINICAL TRIAL-genomics 07/04/2008 05/30/2009 Overview: Renamed Per Clinical Trials Billing Project. Study Titile: Genomic Markers for Patients with Cardiovascular Disease Project #[id number] PI: Miriam Roque MD Please call [phone] with study related questions Chronic coronary artery [...] not at goal 07/04/200809/06 GENOMICS CARDIO RESEARCH OTHER*[id number] 07/04/2008 03/23/2016 Overview: Renamed Per Clinical Trials Billing Project. Study Titile: Genomic Markers for Patients with Cardiovascular Disease Project #[id number] PI: Miriam Roque MD Please call [phone] with study related questions Kidney disease, chronic, [...] Sign Reading Time Taken Comments Blood Pressure 128/61 01/28/2023 2:06 PM EST Pulse 87 01/28/2023 2:06 PM EST Temperature 36.5 C (97.7 F) 01/28/2023 2:06 PM ES T Respiratory Rate - - Oxygen Saturation - - Inhaled Oxygen Concentration - - Weight 115.3 kg (254 lb 3.2 oz) 01/28/2023 2:06 PM EST Height - - Body Mass Index 43.63 12/02/2022 10:11 AM EDT documented in this encounter Progress Notes * Verito Jovel PA-C - 01/28/2023 2:13 PM EST NEPHROLOGY CLINIC NOTE Nephrology [address] [place] [address] Patient Name: Maurisio Beltran Patient Active Problem List Diagnosis Code BPH without obstruction/lower urinary tract symptoms N40.0 Psoriasis L40.9 Generalized osteoarthritis M15.9 Iron deficiency anemia due to chronic blood loss D50.0 Atherosclerosis of blackfeet coronary artery of blackfeet heart without angina pectoris I25.10 Aortocoronary bypass status Z95.1 Type 2 diabetes mellitus with hemoglobin A1c goal of less than 8.0% ([facility]) E11.9 Dyslipidemia E78.5 Vitamin D deficiency E55.9 REENA-inhibitor cough R05.8, T46.4X5A Obstructive sleep apnea of adult G47.33 Psoriatic arthropathy ([facility]) L40.50 S/P primary angioplasty with coronary stent Z95.5 Henning's esophagus with dysplasia K22.719 Pulmonary hypertension ([facility]) I27.20 Chronic diastolic heart failure ([facility]) I50.32 Gout M10.9 COPD, group D, by GOLD 2017 classification ([facility]) J44.9 Chronic respiratory failure with hypoxia ([facility]) J96.11 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 Vitamin B12 deficiency E53.8 Atrioventricular block, [...] of major depressive disorder without prior episode ([facility]) F32.0 Type 2 diabetes mellitus with stage 4 chronic kidney disease, with long-term current use of insulin([facility]) E11.22, N18.4, Z79.4 CHB (complete heart block) ([facility]) I44.2 Prostate cancer ([facility]) C61 Stage 3b chronic kidney disease ([facility]) N18.32 Plaque psoriasis L40.0 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 Past Medical history includes patient with tobacco use until 1997. Also was diagnosed diabetes in 1997. With HTN for years. PMH also includes CAD with coronary bypass grafting surgery x3 in 2008, with multiple PCIs to the RCA and patent RCA stents, coronary stents placed x 4 in 2013, and 2 patent grafts by cardiac catheterization in August 2016. H/o nsaid use. Took otc nsaids remotely for years. Patient with chronic iron deficiency anemia and followed by [facility].Also with KATHE and on CPAP. H/o psoriatic arthritis, follows w/ rheum; on enbrel. 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 Admitted 11/13-11/18/2017 for COPD versus HF /exacerbation. Admitted [facility] 05/08-05/11/18 for COPD exacerbatoin; kidney function stayed at baseline. April 2019 had gout flare, used nsaids. Pacemaker placed 01/2020 Hospitalized september 2019 w/ severe anemia. was on . - Follow with hematology and completes frequent labs. Venofer load and pRBC transfusion as needed Hospitalzed in spring 2021 with 3 infections all at the same time- Ciff, UTI, and Novovirus 2021 dx of recurrent Prostate Cancer- had bone scan w/ slight increased size of lymph nodes. Presumed recurrence of his prostate cancer, restarted on Lupron July 2022 with Urology following cricket/ Dr Armando Stroke like syndrome late August around the time of an acute illness where he did not eat or drink and had severe headaches Macular degeneration and eyesight worsening more lately; can't read anymore; In the pass has said he would rather have "a lethal injection" than start dialysis. No NSAID use. No hx of renal stones. Son on Dialysis Enjoys mowing - summer 2018 mowed 30 acres at son's farm and 3 acres at home. Today 01/28/23 Denies any recent hospitalizations, procedures or infections. Pt with lability in renal function in recent months. GFR has dropped as much as 10 points within a week then rebounded w/o clear reasons. Several clinical events this spring/summer: Reports poor sleeping habits but using cpap Reports home nurse visit every 2 wks- helps with pills Reports cont with Cardiology reports recent adjustments to medications Recent catherization in [place] due to ongoing chestpain- no further intervention was needed no additional stent or blockages per patient REVIEW OF SYSTEMS General: No fatigue, No change in weight Head: No significant headache Respiratory: + cough,No wheezing, No shortness of breath Cardiovascular:+Chest pain x months, No palpitations, and No syncope, No falls Gastrointestinal: No nausea, vomiting, diarrhea + blood in stools - improved with change in tx Urinary: No dysuira, No hematuria. No flank pain Musculoskeletal: No edema Skin: No itching All other systems were reviewed and were negative. Current Outpatient Medications Medication Sig Dispense Refill [...] with exertion/activity) DME: AHP. Easy Touch Pen [place] 31G X 8 MM (Insulin Pen Needle) [...] mg Nebulizer PRN Demetra, Al Reinoso PA-C PHYSICAL EXAMINATION Last 4 BP Readings: BP Readings from Last 4 Encounters: 01/28/23 128/61 12/27/22 138/70 12/13/22 142/76 12/02/22 134/67 Last 3 Weights: Wt Readings from Last 3 Encounters: 01/28/23 115.3 kg (254 lb 3.2 oz) 12/27/22 114.8 kg (253 lb) 12/13/22 114.8 kg (253 lb) BP 128/61 (BP Site: Right Arm, BP Position: Sitting, BP Cuff Size: Large) | Pulse 87 | Temp 36.5 C (97.7 F) | Wt 115.3 kg (254 lb 3.2 oz) | BMI 43.63 kg/m | BSA 2.28 m Wt Readings from Last 1 Encounters: 01/28/23 115.3 kg (254 lb 3.2 oz) General appearance: alert, no apparent distress. Ambulatory with assistance HEAD: Normocephalic, No masses, lesions, tenderness Respiratory: clear to auscultation, no rhonchi, no wheezes, and no crackles Heart: regular rate Abdomen: abdomen soft, non-tender, and no CVA tenderness EXTREMITIES: No edema, No cyanosis or clubbing Skin: skin color, texture, turgor are normal NEURO: alert & oriented x 3 with fluent speech, no focal motor/sensory deficits No tremor Patient is a reliable historian of events LABS: Latest Reference Range & Units 10/11/22 11:06 10/26/22 11:14 11/03/22 09:14 11/19/22 09:45 11/29/22 09:48 01/28/23 14:33 Sodium 135 - 146 mmol/L 138 139 137 139 137 136 Potassium 3.5 - 5.1 mmol/L 3.8 4.0 3.8 4.1 4.1 4.0 Chloride 98 - 107 mmol/L 99 100 97 (L) 98 96 (L) 95 (L) CO2 22 - 32 mmol/L 27 28 27 28 27 28 BUN 6 - 20 mg/dL 27 (H) 24 (H) 24 (H) 21 (H) 24 (H) 19 Creatinine 0.6 - 1.2 mg/dL 2.0 (H) 2.1 (H) 2.0 (H) 1.8 (H) 1.8 (H) 1.9 (H) Estimated Glomerular Filtration Rate >=60 mL/min 33 (L) 32 (L) 33 (L) 37 (L) 37 (L) 35 (L) Anion Gap 7 - 15 mmol/L 12 11 13 13 14 13 Glucose 70 - 120 mg/dL 84 111 63 (L) 144 (H) 85 271 (H) Calcium 8.4 - 10.2 mg/dL 9.0 8.6 8.7 8.9 8.9 8.4 Protein 6.0 - 8.3 g/dL 6.8 6.6 (L): Data is abnormally low (H): Data is abnormally high Latest Reference Range & Units 06/19/21 10:39 03/24/22 15:50 04/22/22 11:29 01/28/23 14:33 Albumin / Creatinine Ratio, Urine <30 mg/g Creat 980 (H) 691 (H) 1,094 (H) 1,032 (H) ALBUMIN / CREATININE RATIO, URINE Rpt ! Rpt ! Rpt ! Rpt ! Protein/ Creatinine Ratio, Urine <150 mg/g 1,133 (H) (H): Data is abnormally high !: Data is abnormal Rpt: View report in Results Review for more information Latest Reference Range & Units 03/18/20 15:32 02/16/21 12:03 01/18/22 11:33 10/26/22 11:14 Uric Acid 3.4 - 7.0 mg/dL 5.2 6.0 5.1 5.6 IMAGING: Exam: CT Abdomen And Pelvis Without Contrast Exam date and time: 04/14/2022 3:17 PM Age: 81 years old Clinical indication: Left lower quadrant pain; Additional info: Llq abd pain TECHNIQUE: Imaging protocol: Computed tomography of the abdomen and pelvis without contrast. Radiation optimization: All CT scans at this facility use at least one of these dose optimization techniques: automated exposure control; mA and/or kV adjustment per patient size (includes targeted exams where dose is matched to clinical indication); or iterative reconstruction. REPORTING DATA: Count of CT and Cardiac NM exams in prior 12 months: This patient has received 2 known CTs and 0 known cardiac nuclear medicine studies in the 12 months prior to the current study. COMPARISON: CT [facility](Adult) 09/16/2021 9:25 AM FINDINGS: Lungs: Minimal dependent changes are present in the lung bases. Liver: Normal. No mass. Gallbladder and bile ducts: Normal. No calcified stones. No ductal dilation. Pancreas: Normal. No ductal dilation. Spleen: Normal. No splenomegaly. Adrenal glands: Normal. No mass. Kidneys and ureters: Normal. No hydronephrosis. Stomach and bowel: Diverticulosis is present with no CT evidence of diverticulitis. Appendix: The appendix is seen and is normal in appearance. Intraperitoneal space: Unremarkable. No free air. No significant fluid collection. Vasculature: Arterial calcifications are present. Lymph nodes: Unremarkable. No enlarged lymph nodes. Urinary bladder: Unremarkable as visualized. Reproductive: Radiation seeds are present in the prostate. Bones/joints: Unremarkable. No acute fracture. Soft tissues: Unremarkable. IMPRESSION IMPRESSION: No definite evidence of acute abdominal or pelvic pathology. Remainder of findings as described. ASSESSMENT/PLAN: The patient's most recent labs (from 2 months ago) were reviewed and the assessment/plan is as follows: Proteinuric CKD 3b with recurrent ESA for unexplained reasons Baseline with an estimated GFR in thelow 30s and acceptable chemistries. No concerns w/ lupron or w/ zetia Stage 3b chronic kidney disease (HCC) (Primary) - BASIC METABOLIC PANEL; Future; Expected date: 01/28/2023 - URINALYSIS WITH MICROSCOPIC EXAM; Future; Expected date: 01/28/2023 - ALBUMIN / CREATININE RATIO, URINE; Future; Expected date: 01/28/2023 HTN, goal below 140/90 At goal. No evidence of nephrotic syndrome. Continue Lasix current stable dose Continue to hold losartan due to hypotension and fatigue. Proteinuria, unspecified type Elevated but stable. No acei given hx. - URINALYSIS WITH MICROSCOPIC EXAM; Future; Expected date: 01/28/2023 - ALBUMIN / CREATININE RATIO, URINE; Future; Expected date: 01/28/2023 Hyperuricemia Uric acid lvls stable at 5.6- cont allopurinol at same dosage Labs placed No changes to medications Avoid medicines like aleve, advil, ibuprofen, aspirin more than 81 mg daily and other NSAIDS which are not good for kidney patients. Take only tylenol (acetaminophen) up to 2000 mg daily as needed for pain or as directed by your primary care provider. Reviewed previous status of kidney function and goals of care. All questions were answered. Check-out note: 3-4 months with Solange Jovel PA-C Nephrology [address] [place] [address] documented in this encounter Nursing Notes * Samara Aguila LPN - 01/28/2023 2:04 PM EST Return patient- stated his home nurse told him he has slight leg swelling. Pt stated no recent illness or hospitalizations. Pt stated no concerns today documented in this encounter Plan of Treatment Upcoming Encounters Date Type Department Care Team (Late st Contact Info) Description 02/22/2023 11:20 AM EST Office Visit Pharmacy, [address] [place] [phone] [place] [address] 03/04/2023 10:30 AM EST Office Visit Gastroenterology [address] [place] [address] Marielena Hall CRNP [address] [place] [address] 03/07/2023 8:20 AM EST Office Visit Dermatology [address] [place] [address] Meron Aragon PA-C [address] [place] [address] [place] [address] 03/09/2023 2:30 PM EST Office Visit Orthopaedics [facility] [address] [place] [address] Bayron Reeves MD [address] [place] [address] 03/28/2023 9:30 AM EST Office Visit Cardiology, [facility] [address] [place] [address] Nevaeh Linda PA-C [address] [place] [address] [place] [address] 03/29/2023 11:00 AM EST Office Visit Family Medicine [address] [place] [phone] Nicola Prado MD [address] [place] [address] [place] [address] 03/29/2023 12:30 PM EST Office Visit Cardiology [address] [place] [address] Blair Hannah PA-C [address] [place] [address] 04/05/2023 9:45 AM EST Office Visit Urology, [facility] [address] [place] [address] Denny Armando MD [address] [address] [place] [address] 05/20/2023 2:00 PM EDT Office Visit Rheumatology [address] [place] [phone] Jenni Perez CRNP [address] [place] [address] [place] [address] 06/02/2023 11:00 AM EDT Nurse Only Ancillary [address] [place] [address] Nurse Neeraj [address] [place] [address] 10/12/2023 11:20 AM EDT Office Visit Sleep Disorders Ctr [facility] [address] [place] [phone] Eulalia Milligan DO [address] [place] [address] 10/25/2023 10:00 AM EDT Cardiac Studies Cardiology [address] [place] [address] [facility] [place] [address] 12/12/2023 3:00 PM EDT Office Visit Nephrology [address] [place] [address] Quin Schroeder MD [address] [facility] [address] Scheduled Procedures Name Priority Associated Diagnoses Date/Ti [...] this encounter Medical Devices Implanted Type Area Highway [employer] Pilot Device Identifier Shelf Expiration Date Model / Serial / Lot Sut Steel 6 [id number] - [id number] Implanted:Qty: 6 on 07/10/2008 at OR [facility] N/A: Chest DO NOT USE 08/14/2012 [id number] / / [id number] documented as of this encounter Results * (ABNORMAL) ALBUMIN / CREATININE RATIO, URINE (01/28/2023 2:33 PM EST) Albumin, Random Urine 47.49 mg/dL 01/28/2023 10:20 PM EST LABORATORY [facility] Creatinine, Random Urine 46 mg/dL 01/28/2023 10:20 PM EST LABORATORY [facility] Albumin / Creatinine Ratio, Urine 1,032(H) <30 mg/g Creat 01/28/2023 10:20 PM EST LABORATORY [facility] Urine Urine specimen / Unknown Non-blood Collection / Unknown 01/28/2023 2:33 PM EST 01/28/2023 2:33 PM EST Narrative LABORATORY [facility] - 01/28/2023 10:20 PM EST Normal: <30 mg/g creatinine High: 30-300 mg/g creatinine Very High: >300 mg/g creatinine Nephrotic: >2200 mg/g creatinine Verito Jovel PA-C LAB URINE ORD ERABLES LABORATORY [facility] [address] [place] [address] * (ABNORMAL) URINALYSIS WITH MICROSCOPIC EXAM (01/28/2023 2:33 PM EST) Color, Urine Colorless Colorless, Light Yellow, Yellow, Dark Yellow 01/28/2023 9:23 PM EST LABORATORY [facility] Clarity, Urine Clear Clear 01/28/2023 9:23 PM EST LABORATORY [facility] Glucose, Urine 100(A) Negative mg/dL 01/28/2023 9:23 PM EST [facility]ORY [facility] Bilirubin, Urine Negative Negative 01/28/2023 9:23 PM EST [facility] Ketone, Urine Negative Negative mg/dL 01/28/2023 9:23 PM EST LABORATORY [facility] Specific [place], Urine 1.009 1.003 - 1.030 01/28/2023 9:23 PM EST LABORATORY C Blood, Urine Negative Negative 01/28/2023 9:23 PM EST LABORATORY [facility] pH, Urine 6.5 5.0 - 7.5 Units 01/28/2023 9:23 PM EST LABORATORY [facility] Protein, Urine 30(A) Negative mg/dL 01/28/2023 9:23 PM EST LABORATORY [facility] Urobilinogen, Urine Normal Normal mg/dL 01/28/2023 9:23 PM EST [facility] Nitrite, Urine Negative Negative 01/28/2023 9:23 PM EST LABORATORY [facility] Esterase, Urine Small(A) Negative 01/28/2023 9:23 PM EST LABORATORY [facility] RBC, Urine 0-2 0 - 2 /HPF 01/28/2023 9:23 PM EST [facility]ORY [facility] WBC, Urine 10-19(A) 0 - 2 /HPF 01/28/2023 9:23 PM EST LABORATORY [facility] Bacteria, Urine 51-100(A) 0 - 25 /HPF 01/28/2023 9:23 PM EST [facility]ORY [facility] Hyaline, Cast, Urine 1-4(A) None /LPF 01/28/2023 9:23 PM EST LABORATORY [facility] Urine Urine specimen / Unknown Non-blood Collection / Unknown 01/28/2023 2:33 PM EST 01/28/2023 2:33 PM EST Verito Jovel PA-C LAB URINE ORD ERABLES LABORATORY [facility] [address] [place] [address] * (ABNORMAL) BASIC METABOLIC PANEL (01/28/2023 2:33 PM EST) BUN 19 6 - 20 mg/dL 01/29/2023 2:22 AM EST [facility]ORY [facility] Creatinine 1.9(H) 0.6 - 1.2 mg/dL 01/29/2023 2:22 AM EST [facility]ORY [facility] Estimated Glomerular Filtration Rate 35(L) >=60 mL/min 01/29/2023 2:22 AM EST [facility]ORY [facility] Comment:eGFR is calculated b ased on the CKD-EPI 2020 equation Sodium 136 135 - 146 mmol/L 01/29/2023 2:22 AM EST [facility] Potassium 4.0 3.5 - 5.1 mmol/L 01/29/2023 2:22 AM EST [facility] Chloride 95(L) 98 - 107 mmol/L 01/29/2023 2:22 AM EST [facility] CO2 28 22 - 32 mmol/L 01/29/2023 2:22 AM EST [facility] Anion Gap 13 7 - 15 mmol/L 01/29/2023 2:22 AM EST [facility] Glucose 271(H) 70 - 120 mg/dL 01/29/2023 2:22 AM EST [facility] Calcium 8.4 8.4 - 10.2 mg/dL 01/29/2023 2:22 AM EST [facility] Blood Venous blood specimen / Unknown Venipuncture / Unknown 01/28/2023 2:33 PM EST 01/28/2023 2:33 PM EST Verito Jovel PA-C LAB BLOOD ORD ERABLES [facility]ORY [facility] [address] [place] [address] documented in this encounter Visit Diagnoses Diagnosis Stage 3b chronic kidney disease (HCC)- Primary HTN, goal below 140/90 Unspecified essential hypertension Proteinuria, unspecified type Hyperuricemia Other abnormal blood chemistry documented in this encounter Advance Directives Documents on File Type Date Recorded Patient Group Care Worker Expl anation Power of Battery Container Tester 06/26/2019 POWER OF A TTORNEY Advance Directives [...] the patient have Health Care Power of Battery Container Tester? No Code Status History Code Status Date [...] patient or by statute hierarchy) Care Teams Pipe Racker Relationship Specialty Start Date End Date Nicola Prado MD [address] [place] [address] [place] [address] PCP - General Family Medicine 06/19/21 documented as of this encounter
--- OUTSIDE RECORDS SUMMARY | 2023-02-03 20:15 | External Medical Summary | Summary of Care ---
Author Name Unknown Organization [facility] Address [address] [place] [address] Phone [phone] Care Team Providers Care Safety Deposit Clerk Name Role Phone Nicola Prado MD Primary Care Provide r Reason for Visit * Reason Onset Date Comments case management 01/11/2023 Encounter Details Date Type Department Care Team (Late st Contact Info) Description 01/11/2023 Flight Simulator Teacher Telephone Care Coordination and Integration [address] [place] [address] Christel Garcia RN [address] [place] [address] case management Allergies Active Allergy Reactions Criticality Noted Date Comments Hydromorphone High 09/20/2021 Other reaction(s): Nausea Other reaction(s): Nausea 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/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 Other reaction(s): AMS Other reaction(s): AMS Prasugrel 04/02/2016 bleeding Prednisone High 09/20/2021 Other reaction(s): INCREASE BLOOD SUGAR Other reaction(s): INCREASE BLOOD SUGAR documented as of this encounter (statuses as of 01/13/2023) Medications Medication Sig Dispensed Refills Start Date End Date Status ASPIRIN 81 MG PO CHEWIndications:Un stable angina (HCC),Chronic coronary artery disease,Difficult intubation 1 Tab Oral Daily 1 0 07/21/2008 Active Fluticasone Propionate 50 MCG/ACT Nasal Suspension (Flonase) Administer 2 Sprays into nostril in the morning. 0 Active Folic Acid 1 MG Oral TabletIndications: Iron deficiency anemia due to chronic blood loss,Folic acid deficiency,B12 deficiency Take 1 TabLET by mouth daily. 30 Tablet 11 04/27/2021 Active Betamethasone Dipropionate 0.05 % External OintmentIndication s:Plaque psoriasis,Asteatot ic eczema Apply 2x daily to rash on back/abdomen/arm s/legs until resolved, then when flaring again 100 [...] Active Triamcinolone Acetonide 0.1 % External Ointment (Aristocort)Indica tions:Plaque psoriasis Apply to rash on trunk/arms/legs 2x daily (when thinner and less noticeable and less bothersome) until resolved, then when flaring 454 g 1 12/14/2021 Active Xiidra 5 % Ophthalmic Solution instill 1 drop by ophthalmic route 2 times every day into both eyes. OK for 90 day supply. 0 01/05/2022 Active Tamsulosin HCl 0.4 MG Oral Capsule (Flomax)Indication s:Lower urinary tract symptoms Take 1 Capsule by mouth in the morning. 90 Capsule 3 04/13/2022 Active Nitroglycerin 0.4 MG Sublingual Tablet Sublingual (Nitrostat) 1 every 5 minutes as needed with chest pain up to 3 doses in 15 minutes 25 Tablet 1 05/05/2022 Active Victoza 18 MG/3ML Subcutaneous Solution Pen-injector (Liraglutide)Indic ations:Type 2 diabetes mellitus with hemoglobin A1c goal of less than 8.0% ([facility]),Type 2 diabetes mellitus with stage 4 chronic kidney disease, with long-term current use of insulin ([facility]) Inject 1.8 mg under the skin daily. 27 mL 3 07/23/2022 Active Furosemide 80 MG Oral Tablet (Lasix) Take 1 Tablet by mouth in the morning. 90 Tablet 1 08/05/2022 Active Atorvastatin Calcium 80 MG Oral Tablet (Lipitor)Indicatio ns:Dyslipidemia, goal LDL below 70 Take 1 Tablet by mouth daily. 90 Tablet 0 10/13/2022 Active guaiFENesin ER 600 MG Oral Tablet Extended Release 12 Hour (Mucinex)Indicatio ns:COPD exacerbation (HCC) Take 1 Tablet by mouth 2 times a day as needed for Congestion. Take with plenty of water. Do not cut, crush or chew 40 Tablet 0 10/13/2022 Active Tresiba FlexTouch 200 UNIT/ML Subcutaneous Solution Pen-injector (Insulin Degludec)Indicatio ns:Type 2 diabetes mellitus with hemoglobin A1c goal of less than 8.0% ([facility]) Inject 100 Units under the [...] MG Oral Tablet Extended Release 24 Hour (Imdur)Indications :Chronic diastolic heart failure (HCC) Take 1 Tablet by mouth in the morning. 90 Tablet 3 11/19/2022 Active Enbrel SureClick 50 MG/ML Subcutaneous Solution Auto-injector (Etanercept)Indica tions:H/O psoriasis,Polyarti cular psoriatic arthritis (HCC) Inject 50 mg under the skin once a week. 4 mL 1 11/17/2022 Active Albuterol Sulfate HFA 108 (90 Base) MCG/ACT Inhalation Aerosol SolutionIndication s:COPD exacerbation (HCC),Chronic cough Inhale 2 Puffs by mouth every 4 hours as needed for Cough or Shortness of Breath. 18 g 2 12/01/2022 Active oxygen IN GAS Use 2 L/min(Oxygen) as directed in the morning. 2.5 LPMBled through bipap And 2 LPM with exertion. (Patient is using 2 LPM with CPAP, and 3 LPM with exertion/activit y) DME: [facility]. 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 DXe11.9 600 Each 3 12/07/2022 Active Allopurinol 300 MG Oral Tablet (Zyloprim) Take 1 Tablet by mouth daily. 90 Tablet 1 12/17/2022 Active NovoLOG FlexPen 100 UNIT/ML Subcutaneous Solution Pen-injector (insulin aspart)Indications :Type 2 diabetes mellitus with hemoglobin A1c goal of less than 8.0% ([facility]) Inject 12 units with breakfast and supper PLUS correction factor of 1:25 if over 140 mg/dL. Up to 120 units per day. 110 mL 3 12/28/2022 Active BD TB Syringe 27G X 1/2" 1 ML (Tuberculin Syringe) To be used with Octreotide. 60 Each 0 12/31/2022 Active [facility] UltraSoft LancetsIndications :Type 2 diabetes mellitus with hemoglobin A1c goal of less than 8.0% ([facility]) Test blood sugar up to five times daily; dx E11.9 450 Each 3 01/02/2023 Active OneTouch Ultra In Vitro Strip (Glucose Blood)Indications: Type 2 diabetes mellitus with hemoglobin A1c goal of less than 8.0% ([facility]) Test 3-4 times a day 100 Strip 3 01/11/2023 Active [employer] No Coding Blood Gluc In Vitro Strip (Glucose Blood) Use as directed to test blood sugars up to four times daily DxE11.9 400 Strip 3 01/12/2023 Active Ernie[employer] Voice Blood Glucose w/Device Kit Use as directed to test blood sugars up to four times daily DxE11.9 1 Kit 0 01/12/2023 Active [employer] Voice Blood Glucose w/Device Kit Use as directed to test blood sugars up to four times daily DxE11.9 1 Kit 0 12/21/2022 3 Discontinue d(Refill) Prodigy No Coding Blood Gluc In Vitro Strip (Glucose Blood) Use as directed to test blood sugars up to four times daily DxE11.9 400 Strip 3 12/21/2022 3 Discontinue d(Refill) Hospital, Clinic, or Other Facility Administered Medication Ordered Dose Route Frequency Start Date End Date Status Albuterol Sulfate (Proventil) (2.5 MG/3ML) 0.083% inhalation solution 2.5 mgIndications:Dyspnea and respiratory abnormalities 2.5 mg NEBULIZER PRN 05/18/2022 05/18/2023 Active documented as of this encounter (statuses as of 01/13/2023) Active Problems Problem Noted Date Diagnosed Date Atherosclerosis of cherokee co ronary artery of cherokee heart with stable angina pectoris 12/27/2022 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 Will plan FOB electively Due to current situation. EXAMINATION OF PARTICIPANT I N CLINICAL TRIAL-genomics 07/04/2008 05/30/2009 Overview: Renamed Per Clinical Trials Billing Project. Study Titile: Genomic Markers for Patients with Cardiovascular Disease Project #[id number] PI: Miriam Roque MD Please call [phone] with study related questions Chronic coronary artery [...] not at goal 07/04/200809/06 GENOMICS CARDIO RESEARCH OTHER*[id number] 07/04/2008 03/23/2016 Overview: Renamed Per Clinical Trials Billing Project. Study Titile: Genomic Markers for Patients with Cardiovascular Disease Project #[id number] PI: Miriam Roque MD Please call [phone] with study related questions Kidney disease, chronic, [...] 08/07/2018 Dermatophytosis of nail 11/25/200011/15 Mixed dyslipidemia 01/27/200 9 Overview: Per Lipid Taxonomy. Type 2 [...] as of this encounter (statuses as of 01/13/2023) Immunizations Name Administration Dates Next Due COVID-19 mRNA, LNP-s, No Pre serve, 2-Dose Series ([employer]) 12/09/2020,05/09/2020,04/11/2020 COVID-19, LNP-s, No Preserve , Juan Manuel-sucrose, Ages 12+ (Pfizer) 06/04/2021 H1N1 2009 Influenza, IM 01/04/2009 MMR - Measles/Mumps/Rubella Vaccine 08/01/1996 Pneumococcal Conjugate Vacc, 13 Valent (Prevnar) 02/22/2014 Pneumococcal Conjugate Vacci ne, 7 Valent 11/20/2002 Pneumococcal Polysaccharide PPV23 (Pneumovax) 04/30/2008 SEASONAL INFLUENZA, PF, 6 M & Above, IM , (FLULAVAL or FLUZONE) 11/23/2017,11/04/2016 11/04/2017 Season Influenza, Quad, PF, Adjuvanted, 65+ Yrs, IM (FLUAD) 10/23/2019 Seasonal Influenza, Quadriva lent Hd (Fluzone Hd) [...] Telephone Encounter - Karlene Alvarez RPh - 01/13/2023 10:46 AM EST Patient Phone Numbers Attempted to call patient to discuss, no answer. Confirmed with [facility] that strips/meters were able to be obtained. Karlene Alvarez RPh, PharmD Clinical Pharmacist - Corporate Librarian [facility] 01/13/2023, 10:46 AM Ph.[phone] * Telephone Encounter - Karlene Alvarez RPh - 01/12/2023 2:12 PM EST Called and spoke to Cathryn at [facility]. States they are unable to order Prodigy meters. Spoke with ANGEL Mckeon at [facility]. States Prodigy meters/strips are able to be ordered. Hopeful to be in by tomorrow. 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 Attempted to contact patient to make him aware. No answer, left message to return call to clinic. Will plan to continue to follow up tomorrow on status. Karlene Alvarez RPh, PharmD Clinical Pharmacist - Corporate Librarian Medication [facility] 01/12/2023, 3:46 PM Ph.[phone] * Telephone Encounter - Christel Garcia RN - 01/11/2023 10:57 AM EST Received voicemail from patient, with message for Karlene Alvarez in [facility]. Asking CM to assist with getting message to her. Whatever Karlene sent to pharmacy for patient, did not go through. He needs her to be aware of that. CM sent Teams message to Karlene. She asks that telephone encounter be created and forwarded to her. Done. documented in this encounter Plan of Treatment Upcoming Encounters Date Type Department Care Team (Late st Contact Info) Description 01/28/2023 2:00 PM EST Office Visit Nephrology [address] [place] [address] ZemaVerito paiz PA-C [address] [facility] [place], [place] [address] 01/28/2023 2:30 PM EST Office Visit Pharmacy, [address] [place] [address] [place] [address] 03/04/2023 10:30 AM EST Office Visit Gastroenterology [address] [place] [address] Marielena Hall CRNP [address] [place] [address] 03/28/2023 9:30 AM EST Office Visit Cardiology, [facility] [address] [facility] [place] [address] Nevaeh Linda PA-C [address] [facility] [place] [address] 03/29/2023 11:00 AM EST Office Visit Family Medicine [address] [place] [phone] Nicola Prado MD [address] [place] [address] [place] [address] 03/29/2023 12:30 PM EST Office Visit Cardiology [address] [place] [address] Blair Hannah PA-C [address] [facility] [place] [address] 04/05/2023 9:45 AM EST Office Visit Urology, [facility] [address] [facility] [place] [address] Denny Armando MD [address] [place] [address] [place] [address] 05/20/2023 2:00 PM EDT Office Visit Rheumatology [address] [place] [phone] Jenni Perez CRNP [address] [place] [address] [place] [address] 06/02/2023 11:00 AM EDT Nurse Only Ancillary [address] [place] [address] Neeraj, Nurse [address] [place] [address] 10/12/2023 11:20 AM EDT Office Visit Sleep Disorders Ctr [facility] [address] [place] [phone] Eulalia Milligan, [address] [place] [address] 10/25/2023 10:00 AM EDT Cardiac Studies Cardiology [address] [place] [address] Neeraj, Pacer Clinic [facility] [address] [place] [address] Scheduled Procedures Name Priority Associated Diagnoses Date/Ti [...] 11/03/2022, Additional history exists HbA1c 06/27/2023 12/27/2022, 09/15, 04/22/2022, Additional history exists O2 ASSESSMENT COMPLETED [...] this encounter Medical Devices Implanted Type Area Practice Performance Manager Device Identifier Shelf Expiration Date Model / Serial / Lot Sut Steel 6 [id number] - [id number] Implanted:Qty: 6 on 07/10/2008 at OR [facility] N/A: Chest DO NOT USE 08/14/2012 [id number] / / [id number] documented as of this encounter Advance Directives Documents on File Type Date Recorded Patient Bullard Operator Expl anation Power of Certified Phlebotomy Technician 06/26/2019 POWER OF A TTORNEY Advance Directives [...] the patient have Health Care Power of Certified Phlebotomy Technician? No Code Status History Code Status Date [...] patient or by statute hierarchy) Care Teams Safety Deposit Clerk Relationship Specialty Start Date End Date Nicola Prado MD [address] [place] [address] [place] [address] PCP - General Family Medicine 06/19/21 documented as of this encounter
--- OUTSIDE RECORDS SUMMARY | 2023-02-03 20:15 | External Medical Summary | Summary of Care ---
Author Name Unknown Organization [facility] Address [address] [place] [address] Phone [phone] Care Team Providers Care Production Shift Supervisor Name Role Phone Nicola Prado MD Primary Care Provide r Reason for Visit * Reason Onset Date Comments Other 01/04/2023 Encounter Details Date Type Department Care Team (Late st Contact Info) Description 01/04/2023 Telephone Pharmacy, [facility] [address] [place] [address] [place] [address] [place] [address] Other Allergies Active Allergy Reactions Criticality Noted Date Comments Hydromorphone High 09/20/2021 Other reaction(s): Nausea Other reaction(s): Nausea 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/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 Other reaction(s): AMS Other reaction(s): AMS Prasugrel 04/02/2016 bleeding Prednisone High 09/20/2021 Other reaction(s): INCREASE BLOOD SUGAR Other reaction(s): INCREASE BLOOD SUGAR documented as of this encounter (statuses as of 01/10/2023) Medications Medication Sig Dispensed Refills Start Date [...] when flaring 454 g 1 12/14/2021 Active OneTouch Ultra In Vitro Strip (Glucose Blood)Indications:Ty pe 2 diabetes mellitus with hemoglobin A1c goal of less than 8.0% (HCC) 3-4 times a day 450 Strip 3 12/17/2021 Active Xiidra 5 % Ophthalmic Solution instill [...] disease, with long-term current use of insulin ([facility]) Inject 1.8 mg under the skin daily. [...] Extended Release 12 Hour (Mucinex)Indications :COPD exacerbation ([facility]) Take 1 Tablet by mouth 2 times a day as needed for Congestion. Take with plenty of water. Do not cut, crush or chew 40 Tablet 0 10/13/2022 Active Tresiba FlexTouch 200 UNIT/ML Subcutaneous Solution Pen-injector (Insulin Degludec)Indications :Type 2 diabetes mellitus with hemoglobin A1c goal of less than 8.0% ([facility]) Inject 100 Units under the skin daily. [...] Auto-injector (Etanercept)Indicati ons:H/O psoriasis,Polyarticu lar psoriatic arthritis ([facility]) Inject 50 mg under the skin once [...] AHP. 0 12/02/2022 Active Easy Touch Pen [place] 31G X 8 MM (Insulin Pen Needle)Indications:T ype 2 diabetes mellitus with hemoglobin A1c goal of less than 8.0% (HCC),Type 2 diabetes mellitus with stage 4 chronic kidney disease, unspecified whether termite exterminator helper insulin use (HCC) Use up to eight times daily with insulin. DXe11.9 600 Each 3 12/07/2022 Active Allopurinol 300 MG Oral Tablet (Zyloprim) Take 1 Tablet by mouth daily. 90 Tablet 1 12/17/2022 Active virtual tweens ltd Voice Blood Glucose w/Device Kit Use as directed to test blood sugars up to four times daily DxE11.9 1 Kit 0 12/21/2022 Active virtual tweens ltd No Coding Blood Gluc In Vitro Strip (Glucose Blood) Use as directed to test blood sugars up to four times daily DxE11.9 400 Strip 3 12/21/2022 Active NovoLOG FlexPen 100 UNIT/ML Subcutaneous Solution Pen-injector (insulin aspart)Indications:T ype 2 diabetes mellitus with hemoglobin A1c goal of less than 8.0% (HCC) Inject 12 units with breakfast and supper PLUS correction factor of 1:25 if over 140 mg/dL. Up to 120 units per day. 110 mL 3 12/28/2022 Active BD TB Syringe 27G X 1/2" 1 ML (Tuberculin Syringe) To be used with Octreotide. 60 Each 0 12/31/2022 Active OneTouch UltraSoft LancetsIndications:T ype 2 diabetes mellitus with hemoglobin A1c goal of less than 8.0% (HCC) Test blood sugar up to five times daily; dx E11.9 450 Each 3 01/02/2023 Active Hospital, Clinic, or Other Facility Administered Medication Ordered Dose Route Frequency Start Date End Date Status Albuterol Sulfate (Proventil) (2.5 MG/3ML) 0.083% inhalation solution 2.5 mgIndications:Dyspnea and respiratory abnormalities 2.5 mg NEBULIZER PRN 05/18/2022 05/18/2023 Active documented as of this encounter (statuses as of 01/10/2023) Active Problems Problem Noted Date Diagnosed Date Atherosclerosis of ramona co ronary artery of ramona heart with stable angina pectoris 12/27/2022 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 Test performed by Dori FORMING ROLL OPERATOR CPFT Body mass index (BMI) of [...] TIA (transient ischemic attack) 02/04/2016 11/23/2017 Overview: [facility] Anemia of chronic renal failure 07/30/2015 [...] CASE MANAGEMENT 07/22/200812/01 Overview: Kianna Lyn RN [phone] Examination following surgery 07/11/2008 12/31/2011 Difficult intubation 07/10/2008 021 Overview: Patient seen and examined in OR#1.Possible difficult intubation.TM distance about 5 cms.MP 3-4. Will plan FOB electively Due to current situation. EXAMINATION OF PARTICIPANT I N CLINICAL TRIAL-genomics 07/04/2008 05/30/2009 Overview: Renamed Per Clinical Trials Billing Project. Study Titile: Genomic Markers for Patients with Cardiovascular Disease Project #[id number] PI: Miriam Roque MD Please call [phone] with study related questions Chronic coronary artery [...] not at goal 07/04/200809/06 GENOMICS CARDIO RESEARCH OTHER*[id number] 07/04/2008 03/23/2016 Overview: Renamed Per Clinical Trials Billing Project. Study Titile: Genomic Markers for Patients with Cardiovascular Disease Project #[id number] PI: Miriam Roque MD Please call [phone] with study related questions Kidney disease, chronic, [...] as of this encounter (statuses as of 01/10/2023) Immunizations Name Administration Dates Next Due COVID-19 [...] Telephone Encounter - Karlene Alvarez RPh - 01/10/2023 4:30 PM EST Patient Phone Numbers Called and spoke with patient. Made aware Prodigy meter was sent to [facility]. He is planning to follow up with them. Inperson DM return visit scheduled for after nephrology OV on 01/28. Will further review possible CGM trial at that time. Karlene Alvarez RPh, PharmD Clinical Pharmacist - Flour Mixer [facility] 01/10/2023, 4:31 PM .[phone] * Telephone Encounter - Karlene Alvarez RPh - 01/05/2023 12:41 PM EST Patient Phone Numbers Returned patient's call, no answer. Left message to return call to clinic. Karlene Alvarez RPh, PharmD Clinical Pharmacist - Flour Mixer [facility] 01/05/2023, 12:41 PM .[phone] * Telephone Encounter - Jannette Su oil lease broker - 01/05/2023 10:33 AM EST Caller's name: Maurisio Preferred call back number(OFFICE NUMBER FOR ): [phone] Reason for call: Pt returning call from Karlene, [facility]. Thank you, Jannette Su Gourmet Coffee Attendant [facility] ([facility]) (formerly Telepharmacy) 01/05/2023,10:33 AM * Telephone Encounter - Karlene Alvarez RPh - 01/04/2023 12:27 PM EST Patient Phone Numbers Returned patient's call, no answer. Left message to return call to clinic to discuss. Karlene Alvarez RP, PharmVeronica Clinical Pharmacist - Flour Mixer [facility] 01/04/2023, 12:28 PM Ph.[phone] * Telephone Encounter - Rubin Adams PHARM Tech - 01/04/2023 8:26 AM EST Caller's name: Maurisio Preferred call back number(OFFICE NUMBER FOR ): [phone] Reason for call: Pt requesting to speak to [facility] regarding DM appt before rescheduling it. Thank you, Rubin Adams CPhT Gourmet Coffee Attendant [facility] [employer] 01/04/2023,8:26 AM documented in this encounter Plan of Treatment Upcoming Encounters Date Type Department Care Team (Late st Contact Info) Description 01/28/2023 2:00 PM EST Office Visit Nephrology [address] [place] [address] ZemaitisVerito PA-C [address] [place] [address] 01/28/2023 2:30 PM EST Office Visit Pharmacy, [address] [place] [address] [place] [address] 03/04/2023 10:30 AM EST Office Visit Gastroenterology [address] [place] [address] Marielena Hall CRNP [address] [place] [address] 03/28/2023 9:30 AM EST Office Visit Cardiology, [facility] [address] [place] [address] Nevaeh Linda PA-C [address] [place] [address] [place] [address] 03/29/2023 11:00 AM EST Office Visit Family Medicine [address] [place] [phone] Nicola Prado MD [address] [place] [address] [place] [address] 03/29/2023 12:30 PM EST Office Visit Cardiology [address] [place] [address] Blair Hannah PA-C [address] [place] [address] 04/05/2023 9:45 AM EST Office Visit Urology, [facility] [address] [place] [address] Denny Armando MD [address] [place] [address] [place] [address] 05/20/2023 2:00 PM EDT Office Visit Rheumatology [address] [place] [phone] Jenni Perez CRNP [facility] [place] [address] 06/02/2023 11:00 AM EDT Nurse Only Ancillary [address] [place] [address] Nurse Neeraj [address] [place] [address] 10/12/2023 11:20 AM EDT Office [facility] [place] [phone] Eulalia Milligan DO 132 [facility] [place] [address] 10/25/2023 10:00 AM EDT Cardiac Studies Cardiology [address] [place] [address] [facility] 132 [facility] [place] [address] Scheduled Procedures Name Priority Associated Diagnoses Date/Ti [...] , 06/03/2020, Additional history exists COVID-19 Vaccine (2022- season) 2022 06/04/2021, 12/09/2020, 05/09/2020, Additional history exists Albumin/Creatinine Ratio 04/23/2023 023, 03/24/2022, 06/19/2021, Additional history exists Depression Screening 05/29/2023 05/28/2022 Diabetic Foot Exam 05/29/2023 05/28/2022, 0 04/24/2020, 12/20/2018, Additional history exists GFR 05/31/2023 11/29/2022, 10/0 07/2022, 11/03/2022, Additional history exists HbA1c 06/27/2023 12/27/2022, 0804/2022, 04/22/2022, Additional history exists O2 ASSESSMENT COMPLETED [...] this encounter Medical Devices Implanted Type Area Drafting Teacher Device Identifier Shelf Expiration Date Model / Serial / Lot Sut Nghia 6 [id number] - [id number] Implanted:Qty: 6 on 07/10/2008 [place] [facility]: Chest DO NOT USE 08/14/2012 [id number] / / [id number] documented as of this encounter Visit Diagnoses Diagnosis Type 2 diabetes mellitus with hemoglobin A1c goal of less than 8.0% (HCC)- Primary documented in this encounter Advance Directives Documents on File Type Date Recorded Patient Milk Wagon Driver Expl anation Power of Mexican Food Maker 06/26/2019 POWER OF A TTORNEY Advance Directives [...] the patient have Health Care Power of Mexican Food Maker? No Code Status History Code Status Date [...] patient or by statute hierarchy) Care Teams Production Shift Supervisor Relationship Specialty Start Date End Date Nicola Prado MD [address] [place] [address] [place] [phone] PCP - General Family Medicine 06/19/21 documented as of this encounter
--- OUTSIDE RECORDS SUMMARY | 2023-02-03 20:15 | External Medical Summary | Summary of Care ---
Author Name Unknown Organization [facility] Address [address] [place] [address] Phone [phone] Care Team Providers Care Sampling Expert Name Role Phone Nicola Prado MD Primary Care Provide r Reason for Visit * Reason Onset Date Comments case management 01/11/2023 Encounter Details Date Type Department Care Team (Late st Contact Info) Description 01/11/2023 Electric Drill Operator Telephone Care Coordination and Integration [address] [place] [address] Christel Garcia RN [address] [place] [address] case management Allergies Active Allergy Reactions Criticality Noted Date Comments Hydromorphone High 09/20/2021 Other reaction(s): Nausea Other reaction(s): Nausea 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/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 Other reaction(s): AMS Other reaction(s): AMS Prasugrel 04/02/2016 bleeding Prednisone High 09/20/2021 Other reaction(s): INCREASE BLOOD SUGAR Other reaction(s): INCREASE BLOOD SUGAR documented as of this encounter (statuses as of 01/12/2023) Medications Medication Sig Dispensed Refills Start Date [...] hemoglobin A1c goal of less than 8.0% ([facility]),Type 2 diabetes mellitus with stage 4 chronic kidney disease, with long-term current use of insulin ([facility]) Inject 1.8 mg under the skin daily. [...] hemoglobin A1c goal of less than 8.0% ([facility]) Inject 100 Units under the skin daily. [...] AHP. 0 12/02/2022 Active Easy Touch Pen [place] 31G X 8 MM (Insulin Pen Needle)Indications :Type 2 diabetes mellitus with hemoglobin A1c goal of less than 8.0% ([facility]),Type 2 diabetes mellitus with stage 4 chronic kidney disease, unspecified whether exterminator termite insulin use (HCC) Use up to eight times daily with insulin. DXe11.9 600 Each 3 12/07/2022 Active Allopurinol 300 MG Oral Tablet (Zyloprim) Take 1 Tablet by mouth daily. 90 Tablet 1 12/17/2022 Active NovoLOG FlexPen 100 UNIT/ML Subcutaneous Solution Pen-injector (insulin aspart)Indications :Type 2 diabetes mellitus with hemoglobin A1c goal of less than 8.0% ([facility]) Inject 12 units with breakfast and supper PLUS correction factor of 1:25 if over 140 mg/dL. Up to 120 units per day. 110 mL 3 12/28/2022 Active BD TB Syringe 27G X 1/2" 1 ML (Tuberculin Syringe) To be used with Octreotide. 60 Each 0 12/31/2022 Active Osage Liquor Wine & SpiritsTouch UltraSoft LancetsIndications :Type 2 diabetes mellitus with hemoglobin A1c goal of less than 8.0% ([facility]) Test blood sugar up to five times daily; dx E11.9 450 Each 3 01/02/2023 Active OneTouch Ultra In Vitro Strip (Glucose Blood)Indications: Type 2 diabetes mellitus with hemoglobin A1c goal of less than 8.0% ([facility]) Test 3-4 times a day 100 Strip 3 01/11/2023 Active GreenSandy No Coding Blood Gluc In Vitro Strip (Glucose Blood) Use as directed to test blood sugars up to four times daily DxE11.9 400 Strip 3 01/12/2023 Active Smith Micro Softwareigy Voice Blood Glucose w/Device Kit Use as directed to test blood sugars up to four times daily DxE11.9 1 Kit 0 01/12/2023 Active Arkadium Voice Blood Glucose w/Device Kit Use as [...] as of this encounter (statuses as of 01/12/2023) Active Problems Problem Noted Date Diagnosed Date 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 12/27/2022 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 10/13/2022 Encounter for [...] urinary tract symp toms 07/13/2001 Atherosclerosis of k[place] de[place] co ronary artery of k[place] dehe [place] heart without angina pectoris documented as of this encounter (statuses as of 01/12/2023) Resolved Problems Problem Noted Date Diagnosed Date [...] TIA (transient ischemic attack) 02/04/2016 11/23/2017 Overview: [facility] Anemia of chronic renal failure 07/30/2015 [...] CASE MANAGEMENT 07/22/200812/01 Overview: Kianna Lyn RN [phone] Examination following surgery 07/11/2008 12/31/2011 Difficult intubation 07/10/2008 021 Overview: Patient seen and examined in OR#1.Possible difficult intubation.TM distance about 5 cms.MP 3-4. Will plan FOB electively Due to current situation. EXAMINATION OF PARTICIPANT I N CLINICAL TRIAL-genomics 07/04/2008 05/30/2009 Overview: Renamed Per Clinical Trials Billing Project. Study Titile: Genomic Markers for Patients with Cardiovascular Disease Project #[id number] PI: Miriam Roque MD Please call [phone] with study related questions Chronic coronary artery [...] not at goal 07/04/200809/06 GENOMICS CARDIO RESEARCH OTHER*[id number] 07/04/2008 03/23/2016 Overview: Renamed Per Clinical Trials Billing Project. Study Titile: Genomic Markers for Patients with Cardiovascular Disease Project #[id number] PI: Miriam Roque MD Please call [phone] with study related questions Kidney disease, chronic, [...] 08/07/2018 Dermatophytosis of nail 11/25/200011/15 Mixed dyslipidemia 200 9 Overview: Per Lipid Taxonomy. Type 2 [...] as of this encounter (statuses as of 01/12/2023) Immunizations Name Administration Dates Next Due COVID-19 mRNA, LNP-s, No Pre serve, 2-Dose Series (Bunchball) 12/09/2020,05/09/2020,04/11/2020 COVID-19, LNP-s, No Preserve , Juan Manuel-sucrose, Ages 12+ (Pfizer) 06/04/2021 H1N1 2009 Influenza, IM 01/04/2009 MMR - Measles/Mumps/Rubella Vaccine 08/01/1996 Pneumococcal Conjugate Vacc, 13 Valent (Prevnar) 02/22/2014 Pneumococcal Polysaccharide PPV23 (Pneumovax) 04/30/2008 SEASONAL INFLUENZA, PF, 6 M & Above, IM , (FLULAVAL or FLUZONE) 11/23/2017,11/04/2016 11/04/2017 Season Influenza, Quad, PF, Adjuvanted, 65+ Yrs, IM (FLUAD) 10/23/2019 Seasonal Influenza, Quadriva lent Hd (Fluzone Hd) 10/28/2022,10/22/2021,11/10/2020 Seasonal Influenza, Quadriva lent, No Preserve, IM 11/28/2015 Seasonal Influenza, Split, I IV3, With Preserve, Inj 10/15/2016,10/24/2014,11/02/2013,10/15,10/16/2011,10/23/2010,11/12/19,10/29/2008,12/26/2007,12/20/2005 Seasonal Influenza, Trivalen t, Adjuvanted, 65+ yrs [...] EST Called and spoke to Cathryn at [facility]. States they are unable to order Prodigy meters. Spoke with ANGEL Mckeon at [facility]. States Prodigy meters/strips are able to be ordered. Hopeful to be in by tomorrow. Will plan to follow up and confirm tomorrow before patient comes to pick up worker. Attempted to contact patient to make him aware. No answer, left message to return call to clinic. Will plan to continue to follow up tomorrow on status. Karlene Alvarez RPh, PharmD Clinical Pharmacist - Vocational Services Specialist Medication Therapy [facility] 01/12/2023, 3:46 PM Ph.[phone] * Telephone Encounter - Christel Garcia RN - 01/11/2023 10:57 AM EST Received voicemail from patient, with message for Karlene Alvarez in [facility]. Asking CM to assist with getting [...] 01/28/2023 2:00 PM EST Office Visit Nephrology [address] [place] [address] Verito Jovel PA-C [facility] [place] [address] 01/28/2023 2:30 PM EST Office Visit Pharmacy, [address] [place] [address] [place] [address] 03/04/2023 10:30 AM EST Office Visit Gastroenterology [address] [place] [address] Marielena Hall CRNP [address] [place] [address] 03/28/2023 9:30 AM EST Office Visit Cardiology, [facility] [address] [place] [address] Nevaeh Linda PA-C [address] [place] [address] 03/29/2023 11:00 AM EST Office Visit Family Medicine [address] [place] [phone] Nicola Prado MD [address] [place] [address] [place] [address] 03/29/2023 12:30 PM EST Office Visit Cardiology [address] [place] [address] Blair Hannah PAJovanniC [address] [place] [address] 04/05/2023 9:45 AM EST Office Visit [facility]rology, [facility] [place] [address] Denny Armando MD 27 [facility] [address] [place] [address] 05/20/2023 2:00 PM EDT Office Visit Rheumatology [address] [place] [phone] Jenni Perez, [facility] [place] [address] 06/02/2023 11:00 AM EDT Nurse Only Ancillary [address] [place] [address] [place], Nurse [address] [place] [address] 10/12/2023 11:20 AM EDT Office Visit [facility] [place] [phone] Eulalia Milligan DO [address] [place] [address] 10/25/2023 10:00 AM EDT Cardiac Studies Cardiology [address] [place] [address] [facility] [address] [place] [address] Scheduled Procedures Name Priority Associated Diagnoses Date/Ti [...] this encounter Medical Devices Implanted Type Area Software Engineer Web Services Device Identifier Shelf Expiration Date Model / Serial / Lot Sut Steel 6 [id number] - [id number] Implanted:Qty: 6 on 07/10/2008 at [place] [facility] [place] N/A: Chest DO NOT USE 08/14/2012 [id number] / / [id number] documented as of this encounter Advance Directives Documents on File Type Date Recorded 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 No Code Status History Code Status Date [...] patient or by statute hierarchy) Care Teams Sampling Expert Relationship Specialty Start Date End Date Nicola Prado MD [address] [place] [address] [place] [address] PCP - General Family Medicine 06/19/21 documented as of this encounter
--- OUTSIDE RECORDS SUMMARY | 2023-02-03 20:15 | External Medical Summary | Summary of Care ---
Author Name Unknown Organization [facility] Address [address] [place] [address] Phone [phone] Care Team Providers Care Hotel Room Attendant Name Role Phone Nicola Prado MD Primary Care Provide r Reason for Visit * Reason Comments Medication Refill Encounter Details Date Type Department Care Team (Late st Contact Info) Description 01/21/2023 Refill Gastroenterology, [facility] [address] [place] [address] Marielena Hall CRNP [address] [place] [address] Allergies Active Allergy Reactions Criticality Noted Date Comments Hydromorphone High 09/20/2021 Other reaction(s): Nausea Other reaction(s): Nausea 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/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 Other reaction(s): AMS Other reaction(s): AMS Prasugrel 04/02/2016 bleeding Prednisone High 09/20/2021 Other reaction(s): INCREASE BLOOD SUGAR Other reaction(s): INCREASE BLOOD SUGAR documented as of this encounter (statuses as of 01/24/2023) Medications Medication Sig Dispensed Refills Start Date [...] A1c goal of less than 8.0% ([facility]),Type 2 diabetes mellitus with stage 4 chronic kidney disease, with long-term current use of insulin ([facility]) Inject 1.8 mg under the skin daily. [...] A1c goal of less than 8.0% ([facility]) Inject 100 Units under the skin daily. [...] AHP. 0 12/02/2022 Active Easy Touch Pen [place] 31G X 8 MM (Insulin Pen Needle)Indications [...] A1c goal of less than 8.0% ([facility]) Inject 12 units with breakfast and supper PLUS correction factor of 1:25 if over 140 mg/dL. Up to 120 units per day. 110 mL 3 12/28/2022 Active Agworld Pty LtdTouch UltraSoft LancetsIndications :Type 2 diabetes mellitus with hemoglobin A1c goal of less than 8.0% ([facility]) Test blood sugar up to five times daily; dx E11.9 450 Each 3 01/02/2023 Active Agworld Pty LtdTouch Ultra In Vitro Strip (Glucose Blood)Indications: Type 2 diabetes mellitus with hemoglobin A1c goal of less than 8.0% ([facility]) Test 3-4 times a day 100 Strip 3 01/11/2023 Active T[employer]Event No Coding Blood Gluc In Vitro Strip (Glucose Blood) Use as directed to test blood sugars up to four times daily DxE11.9 400 Strip 3 01/12/2023 Active [employer] Voice Blood Glucose w/Device Kit Use as directed to test blood sugars up to four times daily DxE11.9 1 Kit 0 01/12/2023 Active BD TB Syringe 27G X 1/2" 1 ML (Tuberculin Syringe) To be used with Octreotide. 60 Each 0 01/21/2023 Active BD TB Syringe 27G X 1/2" 1 ML (Tuberculin Syringe) To be used with Octreotide. 60 Each 0 12/31/2022 3 Discontinue d(Refill) Hospital, Clinic, or Other Facility Administered Medication Ordered Dose Route Frequency Start Date End Date Status Albuterol Sulfate (Proventil) (2.5 MG/3ML) 0.083% inhalation solution 2.5 mgIndications:Dyspnea and respiratory abnormalities 2.5 mg NEBULIZER PRN 05/18/2022 05/18/2023 Active documented as of this encounter (statuses as of 01/24/2023) Active Problems Problem Noted Date Diagnosed Date Atherosclerosis of [place] co ronary artery of [place] heart with stable angina pectoris 12/27/2022 Atherosclerosis of coronary artery bypass graft of [place] heart with angina pectoris 10/13/2022 Encounter for [...] urinary tract symp toms 07/13/2001 Atherosclerosis of [place] co ronary artery of [place] heart without angina pectoris documented as of this encounter (statuses as of 01/24/2023) Resolved Problems Problem Noted Date Diagnosed Date [...] use aero chamber. Test performed by Dori SECURITY NURSE CPFT Body mass index (BMI) of 45. [...] TIA (transient ischemic attack) 02/04/2016 11/23/2017 Overview: [facility] Anemia of chronic renal failure [...] MANAGEMENT 07/22/200812/01 Overview: Kianna Lyn, RN [phone] Examination following surgery 07/11/2008 12/31/2011 Difficult intubation 07/10/2008 021 Overview: Patient seen and examined in OR#1.Possible difficult intubation.TM distance about 5 cms.MP 3-4. Will plan FOB electively Due to current situation. EXAMINATION OF PARTICIPANT I N CLINICAL TRIAL-genomics 07/04/2008 05/30/2009 Overview: Renamed Per Clinical Trials Billing Project. Study Titile: Genomic Markers for Patients with Cardiovascular Disease Project #[id number] PI: Miriam Roque MD Please call [phone] with study related questions Chronic coronary artery [...] not at goal 07/04/200809/06 GENOMICS CARDIO RESEARCH OTHER*[id number] 07/04/2008 03/23/2016 Overview: Renamed Per Clinical Trials Billing Project. Study Titile: Genomic Markers for Patients with Cardiovascular Disease Project #[id number] PI: Miriam Roque MD Please call [phone] with study related questions Kidney disease, chronic, [...] as of this encounter (statuses as of 01/24/2023) Immunizations Name Administration Dates Next Due COVID-19 [...] encounter Miscellaneous Notes * Telephone Encounter - Kate Espitia CRNP - 01/21/2023 12:20 PM EST Signed a month supply as marielena is out of office FRANCHESKA Hickey 01/21/2023 12:19 PM * Telephone Encounter - Kate Espitia CRNP - 01/21/2023 12:20 PM ESTSigned Prescriptions: Disp Refills BD TB Syringe 27G X 1/2" 1 ML (Tuberculin *60 Each0 Sig: To be used with Octreotide. Authorizing Provider: KATE ESPITIA documented in this encounter Plan of Treatment Upcoming Encounters Date Type Department Care Team (Late st Contact Info) Description 01/28/2023 2:00 PM EST Office Visit Nephrology [address] [place] [address] Verito Jovel PA-C [address] [place] [address] 01/28/2023 2:30 PM EST Office Visit Pharmacy, [address] [place] [address] [place] [address] 03/04/2023 10:30 AM EST Office Visit Gastroenterology [address] [place] [address] Marielena Hall CRNP [address] [place] [address] 03/28/2023 9:30 AM EST Office Visit Cardiology, [facility] [address] [place] [address] Nevaeh Linda PA-C [address] [place] [address] 03/29/2023 11:00 AM EST Office Visit Family Medicine [address] [place] [phone] Nicola Prado MD [address] [place] [address] [place] [address] 03/29/2023 12:30 PM EST Office Visit Cardiology [address] [place] [address] Blair Hannah PA-C [address] [place] [address] 04/05/2023 9:45 AM EST Office Visit Urology, [facility] 132 [facility] [place] [address] Denny Armando MD [address] [facility] [place] [address] [place] [address] 05/20/2023 2:00 PM EDT Office Visit Rheumatology [address] [place] [phone] Jenni Perez CRNP [facility]0 [facility] [place] [address] 06/02/2023 11:00 AM EDT Nurse Only Ancillary [address] [place] [address] Nurse Neeraj [address] [place] [address] 10/12/2023 11:20 AM EDT Office Visit Sleep Disorders Ctr [facility] 132 [facility] [place] [phone] Eulalia Milligan DO [address] [place] [address] 10/25/2023 10:00 AM EDT Cardiac Studies Cardiology [address] [place] [address] Neeraj [facility] 132 [facility] [place] [address] Scheduled Procedures Name Priority Associated Diagnoses Date/Ti [...] 12/20/2018, Additional history exists GFR 05/31/2023 11/29/2022, 10/07/2022, 11/03/2022, Additional history exists HbA1c 06/27/2023 12/27/2022, [...] this encounter Medical Devices Implanted Type Area Seafood Clerk Device Identifier Shelf Expiration Date Model / Serial / Lot Lei Agrawal 6 [id number] - [id number] Implanted:Qty: 6 on 07/10/2008 at OR [facility] N/A: Chest DO NOT USE 08/14/2012 [id number] / / [id number] documented as of this encounter Advance Directives Documents on File Type Date Recorded 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 No Code Status History Code Status Date Activated Date Inactivated Comments Full Code 07/10/2008 6:37 PM 07/21/2008 4:52 PM This o rder reflects the patients wishes and were consensually agreed upon. Full Code 07/04/2008 2:18 PM 07/10/2008 6:30 PM Healthcare Agents on File Name Relationship Healthcare Agent Relationshi p Communication [facility] Child Health Care Repr esentative (appointed verbally by patient or by statute hierarchy) Care Teams Hotel Room Attendant Relationship Specialty Start Date End Date Nicola Prado MD [address] [place] [address] [place] [address] PCP - General Family Medicine 06/19/21 documented as of this encounter
--- OUTSIDE RECORDS SUMMARY | 2023-02-03 20:15 | External Medical Summary | Summary of Care ---
Author Name Unknown Organization [facility] Address [address] [place] [address] Phone [phone] Care Team Providers Care Mobile Home Installer Name Role Phone Nicola Prado MD Primary Care Provide r Reason for Visit * Reason Onset Date Comments Advice 10/19/2022 Encounter Details Date Type Department Care Team (Late st Contact Info) Description 10/19/[address] [phone] Nicola Prado MD [address] [place] [address] [place] [address] Advice Allergies Active Allergy Reactions Criticality Noted Date Comments Hydromorphone High 09/20/2021 Other reaction(s): Nausea Other reaction(s): Nausea 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/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 Other reaction(s): AMS Other reaction(s): AMS Prasugrel 04/02/2016 bleeding Prednisone High 09/20/2021 Other reaction(s): INCREASE BLOOD SUGAR Other reaction(s): INCREASE BLOOD SUGAR documented as of this encounter (statuses as of 01/18/2023) Medications Medication Sig Dispensed Refills Start Date [...] goal of less than 8.0% ([facility]),Type 2 diabetes mellitus with stage 4 chronic kidney disease, with long-term current use of insulin ([facility]) Inject 1.8 mg under the [...] or chew 40 Tablet 0 10/13/2022 Active Hospital, Clinic, or Other Facility Administered Medication Ordered Dose Route Frequency Start Date End Date Status Albuterol Sulfate (Proventil) (2.5 MG/3ML) 0.083% inhalation solution 2.5 mgIndications:Dyspnea and respiratory abnormalities 2.5 mg NEBULIZER PRN 05/18/2022 05/18/2023 Active documented as of this encounter (statuses as of 01/18/2023) Active Problems Problem Noted Date Diagnosed Date Atherosclerosis of [place] co ronary artery of [place] heart with stable angina pectoris 12/27/2022 Atherosclerosis of coronary artery bypass graft of [place] heart with angina pectoris 10/13/2022 Encounter for [...] urinary tract symp toms 07/13/2001 Atherosclerosis of [place] co ronary artery of [place] heart without angina pectoris documented as of this encounter (statuses as of 01/18/2023) Resolved Problems Problem Noted Date Diagnosed Date [...] TIA (transient ischemic attack) 02/04/2016 11/23/2017 Overview: [facility] Anemia of chronic renal failure [...] CASE MANAGEMENT 07/22/200812/01 Overview: Kianna Lyn RN [phone] Examination following surgery 07/11/2008 12/31/2011 Difficult intubation 07/10/2008 021 Overview: Patient seen and examined in OR#1.Possible difficult intubation.TM distance about 5 cms.MP 3-4. Will plan FOB electively Due to current situation. EXAMINATION OF PARTICIPANT I N CLINICAL TRIAL-genomics 07/04/2008 05/30/2009 Overview: Renamed Per Clinical Trials Billing Project. Study Titile: Genomic Markers for Patients with Cardiovascular Disease Project #[id number] PI: Miriam Roque MD Please call [phone] with study related questions Chronic coronary artery [...] not at goal 07/04/200809/06 GENOMICS CARDIO RESEARCH OTHER*[id number] 07/04/2008 03/23/2016 Overview: Renamed Per Clinical Trials Billing Project. Study Titile: Genomic Markers for Patients with Cardiovascular Disease Project #[id number] PI: Miriam Roque MD Please call [phone] with study related questions Kidney disease, chronic, [...] as of this encounter (statuses as of 01/18/2023) Immunizations Name Administration Dates Next Due COVID-19 mRNA, LNP-s, No Pre serve, 2-Dose Series ([facility] [place]) 12/09/2020,05/09/2020,04/11/2020 COVID-19, LNP-s, No Preserve , Juan [...] Seasonal Influenza, Quadriva lent Hd (Fluzone Hd) 10/22/2021,11/10/2020 Seasonal Influenza, Quadriva lent, No Preserve, IM [...] encounter Miscellaneous Notes * Telephone Encounter - Thania Mcneil, KATHE - 10/19/2022 9:38 AM EDT Pt called and stated that he was put on med methylPREDNISolone 4 MG Oral Tablet Therapy Pack (Medrol Dosepack), started taking it on 10/14 and felt great, took himself off the med on Frid 10/15 because it made his blood sugar go high about 400-500, and he's back on oxygen Please advise what pt needs to do and contact him at [phone] documented in this encounter Plan of Treatment Upcoming Encounters Date Type Department Care Team (Late st Contact Info) Description 01/28/2023 2:00 PM EST Office Visit Nephrology [address] [place] [address] Verito Jovel PA-C [address] [place] [address] 01/28/2023 2:30 PM EST Office Visit Pharmacy, [address] [place] [address] [place] [address] 03/04/2023 10:30 AM EST Office Visit Gastroenterology [address] [place] [address] Marielena Hall CRNP 132 [facility] [place] [address] 03/28/2023 9:30 AM EST Office Visit Cardiology, [facility] 132 [facility] [place] [address] Nevaeh Linda PA-C [address] [place] [address] 03/29/2023 11:00 AM EST Office Visit Family Medicine [address] [place] [phone] Nicola Prado MD [address] [place] [address] [place] [address] 03/29/2023 12:30 PM EST Office Visit Cardiology [address] [place] [address] Blair Hannah PA-C [address] [place] [address] 04/05/2023 9:45 AM EST Office Visit Urology, [facility] [place] [address] Denny Armando MD [address] [place] [address] [place] [address] 05/20/2023 2:00 PM EDT Office Visit Rheumatology [address] [place] [phone] Jenni Perez CRNP [address] [place] [address] [place] [address] 06/02/2023 11:00 AM EDT Nurse Only Ancillary [address] [place] [address] Nurse Neeraj [address] [place] [address] 10/12/2023 11:20 AM EDT Office Visit Sleep Disorders Ctr [facility] [place] [phone] Eulalia Milligan DO [address] [place] [address] 10/25/2023 10:00 AM EDT Cardiac Studies Cardiology [address] [place] [address] [facility] [address] [place] [address] Scheduled Procedures Name Priority Associated Diagnoses Date/Ti [...] this encounter Medical Devices Implanted Type Area Trench Shovel Operator Device Identifier Shelf Expiration Date Model / Serial / Lot Sut Nghia 6 [id number] - [id number] Implanted:Qty: 6 on 07/10/2008 at [place] [facility] N/A: Chest DO NOT USE 08/14/2012 [id number] / / [id number] documented as of this encounter Additional Health Concerns Infection Onset Date Last Indicated Resolved Time C. difficile Rule-Out 11/05/2022 11/05/20222022 10:17 PM EDT C. 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 No Code Status History Code Status Date [...] patient or by statute hierarchy) Care Teams Mobile Home Installer Relationship Specialty Start Date End Date Nicola Prado MD [address] [place] [address] [place] [address] PCP - General Family Medicine 06/19/21 documented as of this encounter
--- OUTSIDE RECORDS SUMMARY | 2023-02-03 20:15 | External Medical Summary | Summary of Care ---
Author Name Unknown Organization [facility] Address [address] [place] [address] Phone [phone] Care Team Providers Care Wanigan Clerk Name Role Phone Nicola Prado MD Primary Care Provide r Encounter Details Date Type Department Care Team ([facility] st Contact Info) Description 01/26/2023 Specialty Pharmacy [facility], [address] [place] [address] Medication, [facility], [address] [address] Allergies Active Allergy Reactions Criticality Noted Date Comments Hydromorphone High 09/20/2021 Other reaction(s): Nausea Other reaction(s): Nausea 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/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 Other reaction(s): AMS Other reaction(s): AMS Prasugrel 04/02/2016 bleeding Prednisone High 09/20/2021 Other reaction(s): INCREASE BLOOD SUGAR Other reaction(s): INCREASE BLOOD SUGAR documented as of this encounter (statuses as of 01/26/2023) Medications Medication Sig Dispensed Refills Start Date [...] AHP. 0 12/02/2022 Active Easy Touch Pen [place] 31G X 8 MM (Insulin Pen Needle)Indications:T ype 2 diabetes mellitus with hemoglobin A1c goal of less than 8.0% (HCC),Type 2 diabetes mellitus with stage 4 chronic kidney disease, unspecified whether custodial insulin use (HCC) Use up to eight [...] per day. 110 mL 3 12/28/2022 Active R&T EnterprisesTouch UltraSoft LancetsIndications:T ype 2 diabetes mellitus with hemoglobin A1c goal of less than 8.0% ([facility]) Test blood sugar up to five times daily; dx E11.9 450 Each 3 01/02/2023 Active [employer]te[employer]uch Ultra In Vitro Strip (Glucose Blood)Indications:Ty pe 2 diabetes mellitus with hemoglobin A1c goal of less than 8.0% ([facility]) Test 3-4 times a day 100 Strip 3 01/11/2023 Active [employer] No Coding Blood Gluc In Vitro Strip (Glucose Blood) Use as directed to test blood sugars up to four times daily DxE11.9 400 Strip 3 01/12/2023 Active [employer] Voice Blood Glucose w/Device Kit Use as [...] as of this encounter (statuses as of 01/26/2023) Active Problems Problem Noted Date Diagnosed Date Atherosclerosis of [place] co ronary artery of [place] heart with stable angina pectoris 12/27/2022 Atherosclerosis of coronary artery bypass graft of [place] heart with angina pectoris 10/13/2022 Encounter for [...] urinary tract symp toms 07/13/2001 Atherosclerosis of [place] co ronary artery of [place] heart without angina pectoris documented as of this encounter (statuses as of 01/26/2023) Resolved Problems Problem Noted Date Diagnosed Date [...] use aero chamber. Test performed by D[facility] DISTRICT HOME ECONOMICS AGENT CPFT Body mass index (BMI) of 45. [...] TIA (transient ischemic attack) 02/04/2016 11/23/2017 Overview: [facility] Anemia of chronic renal [...] CASE MANAGEMENT 07/22/200812/01 Overview: Kianna Lyn, RN [phone] Examination following surgery 07/11/2008 12/31/2011 Difficult intubation 07/10/2008 021 Overview: Patient seen and examined in OR#1.Possible difficult intubation.TM distance about 5 cms.MP 3-4. Will plan FOB electively Due to current situation. EXAMINATION OF PARTICIPANT I N CLINICAL TRIAL-genomics 07/04/2008 05/30/2009 Overview: Renamed Per Clinical Trials Billing Project. Study Titile: Genomic Markers for Patients with Cardiovascular Disease Project #[id number] PI: Miriam Roque MD Please call [phone] with study related questions Chronic coronary artery [...] not at goal 07/04/200809/06 GENOMICS CARDIO RESEARCH OTHER*[id number] 07/04/2008 03/23/2016 Overview: Renamed Per Clinical Trials Billing Project. Study Titile: Genomic Markers for Patients with Cardiovascular Disease Project #[id number] PI: Miriam Roque MD Please call [phone] with study related questions Kidney disease, chronic, [...] as of this encounter (statuses as of 01/26/2023) Immunizations Name Administration Dates Next Due COVID-19 [...] on file documented as of this encounter Progress Notes * Imelda Bañuelos PHARM Tech - 01/26/2023 3:01 PM EST Prescribed medication: Medication: octreotide Shipment date: 02/01 Delivery method: Specialty Mail Location Medication Delivered too? Prescription Address: [address] [place] [phone] HARLEY Romero [facility] 01/26/2023,3:01 PM documented in this encounter Plan of Treatment Upcoming Encounters Date Type Department Care Team (Late st Contact Info) Description 01/28/2023 2:00 PM EST Office Visit Nephrology [address] [place] [address] ZemaVerito paiz PA-C 200 [facility] [place] [address] 01/28/2023 2:30 PM EST Office Visit Pharmacy, [address] [place] [address] [place] [address] 03/04/2023 10:30 AM EST Office Visit Gastroenterology [address] [place] [address] Marielena Hall CRNP [address] [place] [address] 03/28/2023 9:30 AM EST Office Visit Cardiology, [facility] 132 [facility] [place] [address] Nevaeh Linda PA-C 400 [facility] [place] [address] 03/29/2023 11:00 AM EST Office Visit Family Medicine [address] [place] [phone] Nicola Prado MD [address] [place] [address] [place] [address] 03/29/2023 12:30 PM EST Office Visit Cardiology [address] [place] [address] Blair Hannah PA-C 132 [facility] [place] [address] 04/05/2023 9:45 AM EST Office Visit Urology, [facility] 132 [facility] [place] [address] Denny Armando MD [address] [place] [address] [place] [address] 05/20/2023 2:00 PM EDT Office Visit Rheumatology [address] [place] [phone] Jenni Perez CRNP [address] [place] [address] [place] [address] 06/02/2023 11:00 AM EDT Nurse Only Ancillary [address] [place] [address] Neeraj, Nurse [address] [place] [address] 10/12/2023 11:20 AM EDT Office Visit Sleep Disorders Ctr [facility] [address] [place] [phone] Eulalia Milligan, [address] [place] [address] 10/25/2023 10:00 AM EDT Cardiac Studies Cardiology [address] [place] [address] Neeraj, [facility] [address] [place] [address] Scheduled Procedures Name Priority Associated Diagnoses Date/Ti [...] this encounter Medical Devices Implanted Type Area Income Tax Manager Device Identifier Shelf Expiration Date Model / Serial / Lot Sut Steel 6 [id number] - [id number] Implanted:Qty: 6 on 07/10/2008 at OR [facility] N/A: Chest DO NOT USE 08/14/2012 [id number] / / [id number] documented as of this encounter Advance Directives Documents on File Type Date Recorded Patient Director Of Logistics Expl anation Power of Deicer Element Winder Machine 06/26/2019 POWER OF A TTORNEY Advance Directives [...] the patient have Health Care Power of Deicer Element Winder Machine? No Code Status History Code Status Date [...] patient or by statute hierarchy) Care Teams [place] Clerk Relationship Specialty Start Date End Date Nicoal Prado MD [address] [place] [address] [place] [address] PCP - General Family Medicine 06/19/21 documented as of this encounter
--- OUTSIDE RECORDS SUMMARY | 2023-02-03 20:15 | External Medical Summary ---
Author Name Unknown Address Unknown Organization [id number]:[facility] [place] - [address] [facility] [address] Laboratory Report Ordering Provider Test Date Status EPIFANIO NGUYENITIS 01/28/2023 14:33:59 Final Observation Date Value Abnormality Reference (Units ) Status BUN 01/28/2023 14:33:59 19 6-20 (mg/dL) Final Creatinine 01/28/2023 14:33:59 1.9 Above high normal 0.6-1.2 (mg/dL) Final Glomerular filtration rate/1.73 sq M.predicted [Volume Rate/Area] in Serum, Plasma or Blood by Creatinine-based formula (CKD-EPI) 01/28/2023 14:33:59 35 Below low normal >=60 (mL/min) Final eGFR is calculated based on the CKD-EPI 2020 equation SODIUM 01/28/2023 14:33:59 136 135-146 (m mol/L) Final Potassium 01/28/2023 14:33:59 4.0 3.5-5.1 (m mol/L) Final Cl 01/28/2023 14:33:59 95 Below low normal 98- 107 (mmol/L) Final CO2 01/28/2023 14:33:59 28 22-32 (mmo l/L) Final Anion gap 01/28/2023 14:33:59 13 7-15 (mmol /L) Final Glucose 01/28/2023 14:33:59 271 Above high normal 70 -120 (mg/dL) Final Calcium 01/28/2023 14:33:59 8.4 8.4-10.2 ( mg/dL) Final Performing Location [facility] [place] - [address] [place] [address]
--- OUTSIDE RECORDS SUMMARY | 2023-02-03 20:15 | External Medical Summary | Summary of Care ---
Author Name Unknown Organization [facility] Address [address] [place] [address] Phone [phone] Care Team Providers Care Farm Marketer Name Role Phone Nicola Prado MD Primary Care Provide r Reason for Visit * Reason Comments Medication Refill Encounter Details Date Type Department Care Team (Late st Contact Info) Description 01/21/2023 Refill Gastroenterology, [facility] [address] [place] [address] Marielena Hall CRNP [address] [place] [address] Allergies Active Allergy Reactions Criticality Noted Date Comments Hydromorphone High 09/20/2021 Other reaction(s): Nausea Other reaction(s): Nausea 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/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 Other reaction(s): AMS Other reaction(s): AMS Prasugrel 04/02/2016 bleeding Prednisone High 09/20/2021 Other reaction(s): INCREASE BLOOD SUGAR Other reaction(s): INCREASE BLOOD SUGAR documented as of this encounter (statuses as of 01/21/2023) Medications Medication Sig Dispensed Refills Start Date [...] hemoglobin A1c goal of less than 8.0% ([facility]),Type 2 diabetes mellitus with stage 4 chronic kidney disease, with long-term current use of insulin ([facility]) Inject 1.8 mg under the skin daily. [...] hemoglobin A1c goal of less than 8.0% ([facility]) Inject 100 Units under the skin daily. [...] AHP. 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 DXe11.9 600 Each 3 12/07/2022 Active Allopurinol 300 MG Oral Tablet (Zyloprim) Take 1 Tablet by mouth daily. 90 Tablet 1 12/17/2022 Active NovoLOG FlexPen 100 UNIT/ML Subcutaneous Solution Pen-injector (insulin aspart)Indications :Type 2 diabetes mellitus with hemoglobin A1c goal of less than 8.0% ([facility]) Inject 12 units with breakfast and supper PLUS correction factor of 1:25 if over 140 mg/dL. Up to 120 units per day. 110 mL 3 12/28/2022 Active Skimo TVTouch UltraSoft LancetsIndications :Type 2 diabetes mellitus with hemoglobin A1c goal of less than 8.0% ([facility]) Test blood sugar up to five times daily; dx E11.9 450 Each 3 01/02/2023 Active Skimo TVTouch Ultra In Vitro Strip (Glucose Blood)Indications: Type 2 diabetes mellitus with hemoglobin A1c goal of less than 8.0% ([facility]) Test 3-4 times a day 100 Strip 3 01/11/2023 Active Command Information No Coding Blood Gluc In Vitro Strip (Glucose Blood) Use as directed to test blood sugars up to four times daily DxE11.9 400 Strip 3 01/12/2023 Active Command Information Voice Blood Glucose w/Device Kit Use as [...] as of this encounter (statuses as of 01/21/2023) Active Problems Problem Noted Date Diagnosed Date Atherosclerosis of [place] co ronary artery of [place] heart with stable angina pectoris 12/27/2022 Atherosclerosis of coronary artery bypass graft of [place] heart with angina pectoris 10/13/2022 Encounter for [...] urinary tract symp toms 07/13/2001 Atherosclerosis of [place] co ronary artery of [place] heart without angina pectoris documented as of this encounter (statuses as of 01/21/2023) Resolved Problems Problem Noted Date Diagnosed Date [...] use aero chamber. Test performed by Dori SPORTS MARKETING SPECIALIST CPFT Body mass index (BMI) of [...] TIA (transient ischemic attack) 02/04/2016 11/23/2017 Overview: [facility] Anemia of chronic renal failure 07/30/2015 01/27/2017 [...] MANAGEMENT 07/22/200812/01 Overview: Kianna Lyn, RN [phone] Examination following surgery 07/11/2008 12/31/2011 Difficult intubation 07/10/2008 021 Overview: Patient seen and examined in OR#1.Possible difficult intubation.TM distance about 5 cms.MP 3-4. Will plan FOB electively Due to current situation. EXAMINATION OF PARTICIPANT I N CLINICAL TRIAL-genomics 07/04/2008 05/30/2009 Overview: Renamed Per Clinical Trials Billing Project. Study Titile: Genomic Markers for Patients with Cardiovascular Disease Project #[id number] PI: Miriam Roque MD Please call [phone] with study related questions Chronic coronary artery [...] not at goal 07/04/200809/06 GENOMICS CARDIO RESEARCH OTHER*[id number] 07/04/2008 03/23/2016 Overview: Renamed Per Clinical Trials Billing Project. Study Titile: Genomic Markers for Patients with Cardiovascular Disease Project #[id number] PI: Miriam Roque MD Please call [phone] with study related questions Kidney disease, chronic, [...] as of this encounter (statuses as of 01/21/2023) Immunizations Name Administration Dates Next Due COVID-19 [...] 01/28/2023 2:00 PM EST Office Visit Nephrology [address] [place] [address] Verito Jovel PA-C [address] [place] [address] 01/28/2023 2:30 PM EST Office Visit Pharmacy, [address] [place] [address] [place] [address] 03/04/2023 10:30 AM EST Office Visit Gastroenterology [address] [place] [address] Marielena Hall CRNP [address] [place] [address] 03/28/2023 9:30 AM EST Office Visit Cardiology, [facility] [address] [place] [address] Nevaeh Linda PA-C [address] [place] [address] 03/29/2023 11:00 AM EST Office Visit Family Medicine [address] [place] [phone] Nicola Prado MD [address] [place] [address] [place] [address] 03/29/2023 12:30 PM EST Office Visit Cardiology [address] [place] [address] Blair Hannah PA-C [address] [place] [address] 04/05/2023 9:45 AM EST Office Visit Urology, [facility] [address] [facility] [place] [address] Denny Armando MD [address] [facility] [address] [place] [address] 05/20/2023 2:00 PM EDT Office Visit Rheumatology [address] [place] [phone] Jenni Perez CRNP [facility] [place] [address] 06/02/2023 11:00 AM EDT Nurse Only Ancillary [address] [place] [address] Nurse Neeraj [address] [place] [address] 10/12/2023 11:20 AM EDT Office Visit Sleep Disorders Ctr [facility] [address] [facility] [place] [phone] Eulalia Milligan DO [address] [place] [address] 10/25/2023 10:00 AM EDT Cardiac Studies Cardiology [address] [place] [address] [facility] [address] [facility] [place] [address] Scheduled Procedures Name Priority Associated Diagnoses Date/Ti [...] this encounter Medical Devices Implanted Type Area Outpatient Program Coordinator Device Identifier Shelf Expiration Date Model / Serial / Lot Lei Agrawal 6 [id number] - [id number] Implanted:Qty: 6 on 07/10/2008 at OR [facility] [place] N/A: Chest DO NOT USE 08/14/2012 [id number] / / [id number] documented as of this encounter Advance Directives Documents on File Type Date Recorded 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 No Code Status History Code Status Date Activated Date Inactivated Comments Full Code 07/10/2008 6:37 PM 07/21/2008 4:52 PM This o rder reflects the patients wishes and were consensually agreed upon. Full Code 07/04/2008 2:18 PM 07/10/2008 6:30 PM Healthcare Agents on File Name Relationship Healthcare Agent Relationshi p Communication [facility] Child Health Care Repr esentative (appointed verbally by patient or by statute hierarchy) Care Teams Farm Marketer Relationship Specialty Start Date End Date Nicola Prado MD [address] [place] [address] [place] [address] PCP - General Family Medicine 06/19/21 documented as of this encounter
--- OUTSIDE RECORDS SUMMARY | 2023-02-03 20:15 | External Medical Summary | Summary of Care ---
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 Name Role Phone Nicola Menard MD Primary Care Provide r Reason for Visit * Reason Comments eRx-Medication Refill Encounter Details Date Type Department Care Team (Late st Contact Info) Description 01/10/2023 Refill Family [address] [place] [phone] Nicola Menard MD [address] [place] [address] [place] [address] Type 2 diabetes mellitus with hemoglobin A1c goal of less than 8.0% ([facility]) Allergies Active Allergy Reactions Criticality Noted Date Comments Hydromorphone High 09/20/2021 Other reaction(s): Nausea Other reaction(s): Nausea 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/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 Other reaction(s): AMS Other reaction(s): AMS Prasugrel 04/02/2016 bleeding Prednisone High 09/20/2021 Other reaction(s): INCREASE BLOOD SUGAR Other reaction(s): INCREASE BLOOD SUGAR documented as of this encounter (statuses as of 01/11/2023) Medications Medication Sig Dispensed Refills Start Date End Date Status ASPIRIN 81 MG PO CHEWIndications:U nstable angina (HCC),Chronic coronary artery disease,Difficult intubation 1 Tab Oral Daily 1 0 07/21/2008 Active Fluticasone Propionate 50 MCG/ACT Nasal Suspension (Flonase) Administer 2 Sprays into nostril in the morning. 0 Active Folic Acid 1 MG Oral TabletIndications :Iron deficiency anemia due to chronic blood loss,Folic acid deficiency,B12 deficiency Take 1 TabLET by mouth daily. 30 Tablet 11 04/27/2021 Active Betamethasone Dipropionate 0.05 % External OintmentIndicatio ns:Plaque psoriasis,Asteato tic eczema Apply 2x daily to rash on back/abdomen/ar ms/legs until resolved, then when flaring again 100 [...] Active Triamcinolone Acetonide 0.1 % External Ointment (Aristocort)Indic ations:Plaque psoriasis Apply to rash on trunk/arms/legs 2x daily (when thinner and less noticeable and less bothersome) until resolved, then when flaring 454 g 1 12/14/2021 Active Xiidra 5 % Ophthalmic Solution instill 1 drop by ophthalmic route 2 times every day into both eyes. OK for 90 day supply. 0 01/05/2022 Active Tamsulosin HCl 0.4 MG Oral Capsule (Flomax)Indicatio ns:Lower urinary tract symptoms Take 1 Capsule by mouth in the morning. 90 Capsule 3 04/13/2022 Active Nitroglycerin 0.4 MG Sublingual Tablet Sublingual (Nitrostat) 1 every 5 minutes as needed with chest pain up to 3 doses in 15 minutes 25 Tablet 1 05/05/2022 Active Victoza 18 MG/3ML Subcutaneous Solution Pen-injector (Liraglutide)Kimberly cations:Type 2 diabetes mellitus with hemoglobin A1c goal of less than 8.0% ([facility]),Type 2 diabetes mellitus with stage 4 chronic kidney disease, with long-term current use of insulin (HCC) Inject 1.8 mg under the skin daily. 27 mL 3 07/23/2022 Active Furosemide 80 MG Oral Tablet (Lasix) Take 1 Tablet by mouth in the morning. 90 Tablet 1 08/05/2022 Active Atorvastatin Calcium 80 MG Oral Tablet (Lipitor)Indicati ons:Dyslipidemia, goal LDL below 70 Take 1 Tablet by mouth daily. 90 Tablet 0 10/13/2022 Active guaiFENesin ER 600 MG Oral Tablet Extended Release 12 Hour (Mucinex)Indicati ons:COPD exacerbation (HCC) Take 1 Tablet by mouth 2 times a day as needed for Congestion. Take with plenty of water. Do not cut, crush or chew 40 Tablet 0 10/13/2022 Active Tresiba FlexTouch 200 UNIT/ML Subcutaneous Solution Pen-injector (Insulin Degludec)Indicati ons:Type 2 diabetes mellitus with hemoglobin A1c goal of less than 8.0% ([facility]) Inject 100 Units under the skin [...] MG Oral Tablet Extended Release 24 Hour (Imdur)Indication s:Chronic diastolic heart failure (HCC) Take 1 Tablet by mouth in the morning. 90 Tablet 3 11/19/2022 Active Enbrel SureClick 50 MG/ML Subcutaneous Solution Auto-injector (Etanercept)Indic ations:H/O psoriasis,Polyart icular psoriatic arthritis (HCC) Inject 50 mg under the skin once a week. 4 mL 1 11/17/2022 Active Albuterol Sulfate HFA 108 (90 Base) MCG/ACT Inhalation Aerosol SolutionIndicatio ns:COPD exacerbation (HCC),Chronic cough Inhale 2 Puffs by mouth every 4 hours as needed for Cough or Shortness of Breath. 18 g 2 12/01/2022 Active oxygen IN GAS Use 2 L/min(Oxygen) as directed in the morning. 2.5 LPMBled through bipap And 2 LPM with exertion. (Patient is using 2 LPM with CPAP, and 3 LPM with exertion/activi ty) DME: AHP. 0 12/02/2022 Active Easy Touch Pen [place] 31G X 8 MM (Insulin Pen Needle)Indication s:Type 2 diabetes mellitus with hemoglobin A1c goal of less than 8.0% (HCC),Type 2 diabetes mellitus with stage 4 chronic kidney disease, unspecified whether terminal press operator insulin use (HCC) Use up to eight times daily with insulin. DXe11.9 600 Each 3 12/07/2022 Active Allopurinol 300 MG Oral Tablet (Zyloprim) Take 1 Tablet by mouth daily. 90 Tablet 1 12/17/2022 Active Ghostruck Voice Blood Glucose w/Device Kit Use as directed to test blood sugars up to four times daily DxE11.9 1 Kit 0 12/21/2022 Active Ghostruck No Coding Blood Gluc In Vitro Strip (Glucose Blood) Use as directed to test blood sugars up to four times daily DxE11.9 400 Strip 3 12/21/2022 Active NovoLOG FlexPen 100 UNIT/ML Subcutaneous Solution Pen-injector (insulin aspart)Indication s:Type 2 diabetes mellitus with hemoglobin A1c goal of less than 8.0% (HCC) Inject 12 units with breakfast and supper PLUS correction factor of 1:25 if over 140 mg/dL. Up to 120 units per day. 110 mL 3 12/28/2022 Active BD TB Syringe 27G X 1/2" 1 ML (Tuberculin Syringe) To be used with Octreotide. 60 Each 0 12/31/2022 Active OneTouch UltraSoft LancetsIndication s:Type 2 diabetes mellitus with hemoglobin A1c goal of less than 8.0% (HCC) Test blood sugar up to five times daily; dx E11.9 450 Each 3 01/02/2023 Active OneTouch Ultra In Vitro Strip (Glucose Blood)Indications :Type 2 diabetes mellitus with hemoglobin A1c goal of less than 8.0% (HCC) Test 3-4 times a day 100 Strip 3 01/11/2023 Active OneTouch Ultra In Vitro Strip (Glucose Blood)Indications :Type 2 diabetes mellitus with hemoglobin A1c goal of less than 8.0% (HCC) 3-4 times a day 450 Strip 3 12/17/2021 3 Discontinued Hospital, Clinic, or Other Facility Administered Medication Ordered Dose Route Frequency Start Date End Date Status Albuterol Sulfate (Proventil) (2.5 MG/3ML) 0.083% inhalation solution 2.5 mgIndications:Dyspnea and respiratory abnormalities 2.5 mg NEBULIZER PRN 05/18/2022 05/18/2023 Active documented as of this encounter (statuses as of 01/11/2023) Active Problems Problem Noted Date Diagnosed Date Atherosclerosis of [place] co ronary artery of [place] heart with stable angina pectoris 12/27/2022 Atherosclerosis of coronary artery bypass graft of [place] heart with angina pectoris 10/13/2022 Encounter for [...] urinary tract symp toms 07/13/2001 Atherosclerosis of [place] co ronary artery of [place] heart without angina pectoris documented as of this encounter (statuses as of 01/11/2023) Resolved Problems Problem Noted Date Diagnosed Date [...] (transient ischemic attack) 02/04/2016 11/23/2017 Overview: [facility] Anemia of chronic renal failure 07/30/2015 01/27/2017 [...] CASE MANAGEMENT 07/22/200812/01 Overview: Kianna Lyn RN [phone] Examination following surgery 07/11/2008 12/31/2011 Difficult intubation 07/10/2008 021 Overview: Patient seen and examined in OR#1.Possible difficult intubation.TM distance about 5 cms.MP 3-4. Will plan FOB electively Due to current situation. EXAMINATION OF PARTICIPANT I N CLINICAL TRIAL-genomics 07/04/2008 05/30/2009 Overview: Renamed Per Clinical Trials Billing Project. Study Titile: Genomic Markers for Patients with Cardiovascular Disease Project #[id number] PI: Miriam Roque MD Please call [phone] with study related questions Chronic coronary artery [...] not at goal 07/04/200809/06 GENOMICS CARDIO RESEARCH OTHER*[id number] 07/04/2008 03/23/2016 Overview: Renamed Per Clinical Trials Billing Project. Study Titile: Genomic Markers for Patients with Cardiovascular Disease Project #[id number] PI: Miriam Roque MD Please call [phone] with study related questions Kidney disease, chronic, [...] as of this encounter (statuses as of 01/11/2023) Immunizations Name Administration Dates Next Due COVID-19 mRNA, LNP-s, No Pre serve, 2-Dose Series (Media Chaperone) 12/09/2020,05/09/2020,04/11/2020 COVID-19, LNP-s, No Preserve , Juan [...] encounter Miscellaneous Notes * Telephone Encounter - Yoselin Florian RPh - 01/11/2023 10:32 AM ESTSigned Prescriptions: Disp Refills OneTouch Ultra In Vitro Strip (Glucose Blo*[address] St*3 Sig: Test 3-4 times a dayAuthorizing Provider: Luis MENARD User: YOSELIN FLORIAN documented in this encounter Plan of Treatment Upcoming Encounters Date Type Department Care Team (Late st Contact Info) Description 01/28/2023 2:00 PM EST Office Visit Nephrology [address] [place] [address] Verito Jovel PA-C [address] [place] [address] 01/28/2023 2:30 PM EST Office Visit Pharmacy, [address] [place] [address] [place] [address] 03/04/2023 10:30 AM EST Office Visit Gastroenterology [address] [place] [address] Marielena Hall CRNP [address] [place] [address] 03/28/2023 9:30 AM EST Office Visit Cardiology, [facility] [address] [place] [address] Nevaeh Linda PA-C [address] [place] [address] [place] [address] 03/29/2023 11:00 AM EST Office Visit Family Medicine [address] [place] [phone] Nicola Menard MD [address] [place] [address] [place] [address] 03/29/2023 12:30 PM EST Office Visit Cardiology [address] [place] [address] Blair Hannah PATheodore [address] [place] [address] 04/05/2023 9:45 AM EST Office Visit Urology, [facility] [address] [place] [address] Denny Armanod MD [address] [place] [address] [place] [address] 05/20/2023 2:00 PM EDT Office Visit Rheumatology [address] [place] [phone] Jenni Perez CRNP [address] [facility] [place] [address] 06/02/2023 11:00 AM EDT Nurse Only Ancillary [address] [place] [address] Neeraj, Nurse [address] [place] [address] 10/12/2023 11:20 AM EDT Office Visit Sleep Disorders Ctr [facility] [address] [place] [phone] Eulalia Milligan DO [address] [place] [address] 10/25/2023 10:00 AM EDT Cardiac Studies Cardiology [address] [place] [address] [facility] [address] [place] [address] Scheduled Procedures Name Priority Associated Diagnoses Date/Ti [...] this encounter Medical Devices Implanted Type Area Event Manager Device Identifier Shelf Expiration Date Model / Serial / Lot Sut Steel 6 [id number] - [id number] Implanted:Qty: 6 on 07/10/2008 [place] [facility] [place]/A: Chest DO NOT USE 08/14/2012 [id number] / / [id number] documented as of this encounter Visit Diagnoses Diagnosis Type 2 diabetes mellitus with hemoglobin A1c goal of less than 8.0% (HCC) documented in this encounter Advance Directives Documents on File Type Date Recorded 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 No Code Status History Code Status Date [...] patient or by statute hierarchy) Care Teams Metal Drill Press Operator Relationship Specialty Start Date End Date Nicola Menard MD [address] [place] [address] [place] [phone] PCP - General Family Medicine 06/19/21 documented as of this encounter
--- OUTSIDE RECORDS SUMMARY | 2023-02-03 20:16 | External Medical Summary | Summary of Care ---
Author Name Unknown Organization [facility] Address [address] [place] [address] Phone [phone] Care Team Providers Care Valuer Name Role Phone Nicola Prado MD Primary Care Provide r Reason for Visit * Reason Comments Appointment Encounter Details Date Type Department Care Team (Late st Contact Info) Description 01/04/2023 6:10 PM [facility] [[email or web address] Pharmacy Pharmacy, [address] [place] [address] [place] [address] Type 2 diabetes mellitus with hemoglobin A1c goal of less than 8.0% ([facility])* Allergies Active Allergy Reactions Criticality Noted Date Comments Hydromorphone High 09/20/2021 Other reaction(s): Nausea Other reaction(s): Nausea 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/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 Other reaction(s): AMS Other reaction(s): AMS Prasugrel 04/02/2016 bleeding Prednisone High 09/20/2021 Other reaction(s): INCREASE BLOOD SUGAR Other reaction(s): INCREASE BLOOD SUGAR documented as of this encounter (statuses as of 01/04/2023) Medications Medication Sig Dispensed Refills Start Date [...] goal of less than 8.0% ([facility]) 3-4 times a day 450 Strip 3 [...] goal of less than 8.0% ([facility]),Type 2 diabetes mellitus with stage 4 chronic kidney disease, with long-term current use of insulin ([facility]) Inject 1.8 mg under the [...] 12 Hour (Mucinex)Indications :COPD exacerbation ([facility]) Take 1 Tablet by mouth 2 times a day as needed for Congestion. Take with plenty of water. Do not cut, crush or chew 40 Tablet 0 10/13/2022 Active Tresiba FlexTouch 200 UNIT/ML Subcutaneous Solution Pen-injector (Insulin Degludec)Indications :Type 2 diabetes mellitus with hemoglobin A1c goal of less than 8.0% ([facility]) Inject 100 Units under the [...] 24 Hour (Imdur)Indications:C hronic diastolic heart failure ([facility]) Take 1 Tablet by mouth in the morning. 90 Tablet 3 11/19/2022 Active Enbrel SureClick 50 MG/ML Subcutaneous Solution Auto-injector (Etanercept)Indicati ons:H/O psoriasis,Polyarticu lar psoriatic arthritis ([facility]) Inject 50 mg under the skin once a week. 4 mL 1 11/17/2022 Active Albuterol Sulfate HFA 108 (90 Base) MCG/ACT Inhalation Aerosol SolutionIndications: COPD exacerbation ([facility]),Chronic cough Inhale 2 Puffs by mouth every 4 hours as needed for Cough or Shortness of Breath. 18 g 2 12/01/2022 Active oxygen IN GAS Use 2 L/min(Oxygen) as directed in the morning. 2.5 LPMBled through bipap And 2 LPM with exertion. (Patient is using 2 LPM with CPAP, and 3 LPM with exertion/activity ) DME: AHP. 0 12/02/2022 Active Easy Touch Pen [place] 31G X 8 MM (Insulin Pen Needle)Indications:T ype 2 diabetes mellitus with hemoglobin A1c goal of less than 8.0% (HCC),Type 2 diabetes mellitus with stage 4 chronic kidney disease, unspecified whether intermission coordinator insulin use (HCC) Use up to eight times daily with insulin. DXe11.9 600 Each 3 12/07/2022 Active Allopurinol 300 MG Oral Tablet (Zyloprim) Take 1 Tablet by mouth daily. 90 Tablet 1 12/17/2022 Active [employer] Voice Blood Glucose w/Device Kit Use as directed to test blood sugars up to four times daily DxE11.9 1 Kit 0 12/21/2022 Active [employer] No Coding Blood Gluc In Vitro Strip (Glucose Blood) Use as directed to test blood sugars up to four times daily DxE11.9 400 Strip 3 12/21/2022 Active NovoLOG FlexPen 100 UNIT/ML Subcutaneous Solution Pen-injector (insulin aspart)Indications:T ype 2 diabetes mellitus with hemoglobin A1c goal of less than 8.0% ([facility]) Inject 12 units with breakfast [...] goal of less than 8.0% ([facility]) Test blood sugar up to five times daily; dx E11.9 450 Each 3 01/02/2023 Active Hospital, Clinic, or Other Facility Administered Medication Ordered Dose Route Frequency Start Date End Date Status Albuterol Sulfate (Proventil) (2.5 MG/3ML) 0.083% inhalation solution 2.5 mgIndications:Dyspnea and respiratory abnormalities 2.5 mg NEBULIZER PRN 05/18/2022 05/18/2023 Active documented as of this encounter (statuses as of 01/04/2023) Active Problems Problem Noted Date Diagnosed Date Atherosclerosis of [place] co ronary artery of [place] heart with stable angina pectoris 12/27/2022 Atherosclerosis of coronary artery bypass graft of [place] heart with angina pectoris 10/13/2022 Encounter for [...] urinary tract symp toms 07/13/2001 Atherosclerosis of [place] co ronary artery of [place] heart without angina pectoris documented as of this encounter (statuses as of 01/04/2023) Resolved Problems Problem Noted Date Diagnosed Date [...] use aero chamber. Test performed by Dori CONSULTING PRACTICE DIRECTOR CPFT Body mass index (BMI) of 45. [...] TIA (transient ischemic attack) 02/04/2016 11/23/2017 Overview: [facility] Anemia of chronic renal failure [...] MANAGEMENT 07/22/200812/01 Overview: Kianna Lyn, RN [phone] Examination following surgery 07/11/2008 12/31/2011 Difficult intubation 07/10/2008 021 Overview: Patient seen and examined in OR#1.Possible difficult intubation.TM distance about 5 cms.MP 3-4. Will plan FOB electively Due to current situation. EXAMINATION OF PARTICIPANT I N CLINICAL TRIAL-genomics 07/04/2008 05/30/2009 Overview: Renamed Per Clinical Trials Billing Project. Study Titile: Genomic Markers for Patients with Cardiovascular Disease Project #[id number] PI: Miriam Roque MD Please call [phone] with study related questions Chronic coronary artery [...] not at goal 07/04/200809/06 GENOMICS CARDIO RESEARCH OTHER*[id number] 07/04/2008 03/23/2016 Overview: Renamed Per Clinical Trials Billing Project. Study Titile: Genomic Markers for Patients with Cardiovascular Disease Project #[id number] PI: Miriam Roque MD Please call [phone] with study related questions Kidney disease, chronic, [...] update of inactive term IMPOTENCE, ORGANIC ORIGN 01/ 06/2020 Iron deficiency anemia 12/30 BMI 40.0-44.9, adult 018 Overview: Per Obesity protocol #1 CKD (chronic kidney disease), stage IV 05/29/2020 DM type 2 causing CKD stage 4 04/08/2022 documented as of this encounter (statuses as of 01/04/2023) Immunizations Name Administration Dates Next Due COVID-19 [...] as of this encounter Progress Notes * Thi Norris PHARM Tech - 01/04/2023 11:38 AM EST Patient Phone Numbers Sent myeReplicant message to pt, to schedule [facility] appointment for DM management. [facility] message sent -- yes Clinic will follow up again in 4 week(s). [Attempt # 3] Thank you, Thi Norris Liability Claims Representative [facility] ([facility]) (Formerly Telepharmacy) 01/04/2023, 11:39 AM documented in this encounter Plan of Treatment Upcoming Encounters Date Type Department Care Team (Late st Contact Info) Description 01/28/2023 2:00 PM EST Office Visit Nephrology [address] [place] [address] Verito Jovel PA-C 200 [facility] [place] [address] 02/01/2023 6:10 PM EST Pharmacy Pharmacy, [address] [place] [address] [place] [address] 03/04/2023 10:30 AM EST Office Visit Gastroenterology [address] [place] [address] Marielena Hall CRNP [address] [place] [address] 03/28/2023 9:30 AM EST Office [facility], [facility] [place] [address] Nevaeh Linda PA-C [address] [facility] [place] [phone] 03/29/2023 11:00 AM EST Office Visit Family Medicine [address] [place] [phone] Nicola Prado MD [address] [place] [address] [place] [address] 03/29/2023 12:30 PM EST Office Visit Cardiology [address] [place] [address] Blair Hannah PA-C 132 [facility] [place] [address] 04/05/2023 9:45 AM EST Office Visit Urology, [facility] [place] [address] Denny Armando MD [address] [place] [address] [place] [address] 05/20/2023 2:00 PM EDT Office Visit Rheumatology [address] [place] [phone] Jenni Perez CRNP [address] [place] [address] [place] [address] 06/02/2023 11:00 AM EDT Nurse Only Ancillary [address] [place] [address] Nurse Neeraj [address] [place] [address] 10/12/2023 11:20 AM EDT Office Visit Sleep Disorders Ctr [facility] [address] [place] [phone] Eulalia Milligan DO [address] [place] [address] 10/25/2023 10:00 AM EDT Cardiac Studies Cardiology [address] [place] [address] [facility] [address] [place] [address] Scheduled Procedures Name Priority Associated Diagnoses Date/Ti [...] this encounter Medical Devices Implanted Type Area Jar Capper Device Identifier Shelf Expiration Date Model / Serial / Lot Sut Steel 6 [id number] - [id number] Implanted:Qty: 6 on 07/10/2008 at [place] [facility] [place] N/A: Chest DO NOT USE 08/14/2012 [id number] / / [id number] documented as of this encounter Visit Diagnoses Diagnosis Type 2 diabetes mellitus with hemoglobin A1c goal of less than 8.0% ([facility])- Primary documented in this encounter Advance Directives Documents on File Type Date Recorded 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 No Code Status History Code Status Date [...] patient or by statute hierarchy) Care Teams Valuer Relationship Specialty Start Date End Date Nicola Prado MD [address] [place] [address] [place] [phone] PCP - General Family Medicine 06/19/21 documented as of this encounter
--- OUTSIDE RECORDS SUMMARY | 2023-02-03 20:16 | External Medical Summary | Summary of Care ---
Author Name Unknown Organization [facility] Address [address] [place] [address] Phone [phone] Care Team Providers Care Oil Seal Assembler Name Role Phone Nicola Prado MD Primary Care Provide r Reason for Visit * Reason Comments Medication Refill Encounter Details Date Type Department Care Team (Late st Contact Info) Description 12/30/2022 Refill Gastroenterology, [facility] [address] [place] [address] Marielena Giraldo CRNP [address] [place] [address] Allergies Active Allergy Reactions Criticality Noted Date Comments Hydromorphone High 09/20/2021 Other reaction(s): Nausea Other reaction(s): Nausea 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/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 Other reaction(s): AMS Other reaction(s): AMS Prasugrel 04/02/2016 bleeding Prednisone High 09/20/2021 Other reaction(s): INCREASE BLOOD SUGAR Other reaction(s): INCREASE BLOOD SUGAR documented as of this encounter (statuses as of 12/31/2022) Medications Medication Sig Dispensed Refills Start Date [...] flaring 454 g 1 12/14/2021 Active OneTouch UltraSoft LancetsIndications :Type 2 diabetes mellitus with hemoglobin A1c goal of less than 8.0% (HCC) Test blood sugar up to five times daily; dx E11.9 450 Each 3 12/17/2021 Active OneTouch Ultra In Vitro Strip (Glucose [...] than 8.0% ([facility]),Type 2 diabetes mellitus with stage 4 chronic [...] Extended Release 12 Hour (Mucinex)Indicatio ns:COPD exacerbation ([facility]) Take 1 Tablet by mouth 2 times a day as needed for Congestion. Take with plenty of water. Do not cut, crush or chew 40 Tablet 0 10/13/2022 Active Tresiba FlexTouch 200 UNIT/ML Subcutaneous Solution Pen-injector (Insulin Degludec)Indicatio ns:Type 2 diabetes mellitus with hemoglobin A1c goal of less than 8.0% ([facility]) Inject 100 Units under the skin daily. [...] AHP. 0 12/02/2022 Active Easy Touch Pen [place] 31G X 8 MM (Insulin Pen Needle)Indications :Type 2 diabetes mellitus with hemoglobin A1c goal of less than 8.0% ([facility]),Type 2 diabetes mellitus with stage 4 chronic kidney disease, unspecified whether longterm insulin use ([facility]) Use up to eight times daily with insulin. DXe11.9 600 Each 3 12/07/2022 Active Allopurinol 300 MG Oral Tablet (Zyloprim) Take 1 Tablet by mouth daily. 90 Tablet 1 12/17/2022 Active [employer] Voice Blood Glucose w/Device Kit Use as directed to test blood sugars up to four times daily DxE11.9 1 Kit 0 12/21/2022 Active [employer] No Coding Blood Gluc In Vitro Strip (Glucose Blood) Use as directed to test blood sugars up to four times daily DxE11.9 400 Strip 3 12/21/2022 Active NovoLOG FlexPen 100 UNIT/ML Subcutaneous Solution Pen-injector (insulin aspart)Indications :Type 2 diabetes mellitus with hemoglobin A1c goal of less than 8.0% ([facility]) Inject 12 units with breakfast and supper PLUS correction factor of 1:25 if over 140 mg/dL. Up to 120 units per day. 110 mL 3 12/28/2022 Active BD TB Syringe 27G X 1/2" 1 ML (Tuberculin Syringe) To be used with Octreotide. 60 Each 0 12/31/2022 Active BD TB Syringe 27G X 1/2" 1 ML (Tuberculin Syringe) To be used with Octreotide. 60 Each 0 12/06/2022 3 Discontinue d(Refill) Hospital, Clinic, or Other Facility Administered Medication Ordered Dose Route Frequency Start Date End Date Status Albuterol Sulfate (Proventil) (2.5 MG/3ML) 0.083% inhalation solution 2.5 mgIndications:Dyspnea and respiratory abnormalities 2.5 mg NEBULIZER PRN 05/18/2022 05/18/2023 Active documented as of this encounter (statuses as of 12/31/2022) Active Problems Problem Noted Date Diagnosed Date Atherosclerosis of [place] co ronary artery of [place] heart with stable angina pectoris 12/27/2022 Atherosclerosis of coronary artery bypass graft of [place] heart with angina pectoris 10/13/2022 Encounter for [...] urinary tract symp toms 07/13/2001 Atherosclerosis of [place] co ronary artery of [place] heart without angina pectoris documented as of this encounter (statuses as of 12/31/2022) Resolved Problems Problem Noted Date Diagnosed Date [...] use aero chamber. Test performed by Dori TRACK LINER OPERATOR CPFT Body mass index (BMI) of [...] attack) 02/04/2016 11/23/2017 Overview: [facility] Anemia of chronic renal failure 07/30/2015 01/27/2017 [...] inactive term ACTIVE CASE MANAGEMENT 07/22/200812/01 Overview: Kainna Lyn RN [phone] Examination following surgery 07/11/2008 12/31/2011 Difficult intubation 07/10/2008 021 Overview: Patient seen and examined in OR#1.Possible difficult intubation.TM distance about 5 cms.MP 3-4. Will plan FOB electively Due to current situation. EXAMINATION OF PARTICIPANT I N CLINICAL TRIAL-genomics 07/04/2008 05/30/2009 Overview: Renamed Per Clinical Trials Billing Project. Study Titile: Genomic Markers for Patients with Cardiovascular Disease Project #[id number] PI: Miriam Roque MD Please call [phone] with study related questions Chronic coronary artery [...] not at goal 07/04/200809/06 GENOMICS CARDIO RESEARCH OTHER*[id number] 07/04/2008 03/23/2016 Overview: Renamed Per Clinical Trials Billing Project. Study Titile: Genomic Markers for Patients with Cardiovascular Disease Project #[id number] PI: Miriam Roque MD Please call [phone] with study related questions Kidney disease, chronic, [...] as of this encounter (statuses as of 12/31/2022) Immunizations Name Administration Dates Next Due COVID-19 [...] encounter Miscellaneous Notes * Telephone Encounter - Marielena Giraldo CRNP - 12/31/2022 9:13 AM EST Signed Prescriptions: Disp Refills BD TB Syringe 27G X 1/2" 1 ML (Tuberculin *60 Each0 Sig: To be used with Octreotide.Authorizing Provider: MARIELENA GIRALDO documented in this encounter Plan of Treatment Upcoming Encounters Date Type Department Care Team (Late st Contact Info) Description 01/04/2023 6:10 PM EST Pharmacy Pharmacy, [address] [place] [address] [place] [address] 01/28/2023 2:00 PM EST Office Visit Nephrology [address] [place] [address] Verito Jovel PA-C [facility] [place] [address] 03/04/2023 10:30 AM EST Office Visit Gastroenterology [address] [place] [address] Marielena Giraldo CRNP [address] [place] [address] 03/28/2023 9:30 AM EST [facility] [place] [address] Nevaeh Linda PA-C [address] [place] [address] [place] [address] 03/29/2023 11:00 AM EST Office Visit Family Medicine [address] [place] [phone] Nicola Prado MD [address] [place] [address] [place] [address] 03/29/2023 12:30 PM EST Office Visit Cardiology [address] [place] [address] Blair Hannah PA-C [address] [place] [address] 04/05/2023 9:45 AM EST Office Visit Urology, [facility] [address] [place] [address] Denny Armando MD [address] [place] [address] [place] [address] 05/20/2023 2:00 PM EDT Office Visit Rheumatology [address] [place] [phone] Jenni Perez, FRAN[place] [address] [facility] [place] [address] 06/02/2023 11:00 AM EDT Nurse Only Ancillary [address] [place] [address] Nurse Neeraj [address] [place] [address] 10/12/2023 11:20 AM EDT Office Visit Sleep Disorders Ctr [facility] 132 [facility] [place] [phone] Eulalia Milligan, 132 [facility] [place] [address] 10/25/2023 10:00 AM EDT Cardiac Studies Cardiology [address] [place] [address] [facility] 132 [facility] [place] [address] Scheduled Procedures Name Priority Associated Diagnoses Date/Ti [...] this encounter Medical Devices Implanted Type Area Assembler For Puller Over Hand Device Identifier Shelf Expiration Date Model / Serial / Lot Sut Steel 6 [id number] - [id number] Implanted:Qty: 6 on 07/10/2008 at [place] [facility] [place] N/A: Chest DO NOT USE 08/14/2012 [id number] / / [id number] documented as of this encounter Advance Directives Documents on File Type Date Recorded Patient Residential Nurse Expl anation Power of Pharmacist Critical Care 06/26/2019 POWER OF A TTORNEY Advance Directives [...] the patient have Health Care Power of Pharmacist Critical Care? No Code Status History Code Status Date Activated Date Inactivated Comments Full Code 07/10/2008 6:37 PM 07/21/2008 4:52 PM This o rder reflects the patients wishes and were consensually agreed upon. Full Code 07/04/2008 2:18 PM 07/10/2008 6:30 PM Healthcare Agents on File Name Relationship Healthcare Agent Relationshi p Communication Shane Flanaganell Adult Child Health Care Repr esentative (appointed verbally by patient or by statute hierarchy) Care Teams Oil Seal Assembler Relationship Specialty Start Date End Date Nicola Prado MD [address] [place] [address] [place] [phone] PCP - General Family Medicine 06/19/21 documented as of this encounter
--- OUTSIDE RECORDS SUMMARY | 2023-02-03 20:16 | External Medical Summary | Summary of Care ---
Author Name Unknown Organization [facility] Address [address] [place] [address] Phone [phone] Care Team Providers Care Pollution Control Chemist Name Role Phone Nicola Menard MD Primary Care Provide r Reason for Visit * Reason Comments eRx-Medication Refill Encounter Details Date Type Department Care Team (Late st Contact Info) Description 01/01/2023 Refill Family [address] [place] [phone] Nicola Menard MD [address] [place] [address] [place] [address] Type 2 diabetes mellitus with hemoglobin A1c goal of less than 8.0% ([facility]) Allergies Active Allergy Reactions Criticality Noted Date Comments Hydromorphone High 09/20/2021 Other reaction(s): Nausea Other reaction(s): Nausea 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/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 Other reaction(s): AMS Other reaction(s): AMS Prasugrel 04/02/2016 bleeding Prednisone High 09/20/2021 Other reaction(s): INCREASE BLOOD SUGAR Other reaction(s): INCREASE BLOOD SUGAR documented as of this encounter (statuses as of 01/02/2023) Medications Medication Sig Dispensed Refills Start Date [...] hemoglobin A1c goal of less than 8.0% ([facility]) 3-4 times a day 450 Strip 3 [...] hemoglobin A1c goal of less than 8.0% ([facility]),Type 2 diabetes mellitus with stage 4 chronic [...] Extended Release 12 Hour (Mucinex)Indicati ons:COPD exacerbation ([facility]) Take 1 Tablet by mouth 2 times a day as needed for Congestion. Take with plenty of water. Do not cut, crush or chew 40 Tablet 0 10/13/2022 Active Tresiba FlexTouch 200 UNIT/ML Subcutaneous Solution Pen-injector (Insulin Degludec)Indicati ons:Type 2 diabetes mellitus with hemoglobin A1c goal of less than 8.0% ([facility]) Inject 100 Units under the skin daily. [...] Auto-injector (Etanercept)Indic ations:H/O psoriasis,Polyart icular psoriatic arthritis ([facility]) Inject 50 mg under the skin once [...] AHP. 0 12/02/2022 Active Easy Touch Pen Adona 31G X 8 MM (Insulin Pen Needle)Indication s:Type 2 diabetes mellitus with hemoglobin A1c goal of less than 8.0% (HCC),Type 2 diabetes mellitus with stage 4 chronic kidney disease, unspecified whether exterminator insulin use (HCC) Use up to eight times daily with insulin. DXe11.9 600 Each 3 12/07/2022 Active Allopurinol 300 MG Oral Tablet (Zyloprim) Take 1 Tablet by mouth daily. 90 Tablet 1 12/17/2022 Active [employer] Voice Blood Glucose w/Device Kit Use as directed to test blood sugars up to four times daily DxE11.9 1 Kit 0 12/21/2022 Active [employer] No Coding Blood Gluc In Vitro Strip [...] E11.9 450 Each 3 01/02/2023 Active OneTouch UltraSoft LancetsIndication s:Type 2 diabetes mellitus with hemoglobin A1c goal of less than 8.0% (HCC) Test blood sugar up to five times daily; dx E11.9 450 Each 3 12/17/2021 3 Discontinued Hospital, Clinic, or Other Facility Administered Medication Ordered Dose Route Frequency Start Date End Date Status Albuterol Sulfate (Proventil) (2.5 MG/3ML) 0.083% inhalation solution 2.5 mgIndications:Dyspnea and respiratory abnormalities 2.5 mg NEBULIZER PRN 05/18/2022 05/18/2023 Active documented as of this encounter (statuses as of 01/02/2023) Active Problems Problem Noted Date Diagnosed Date Atherosclerosis of [place] ronary artery of [place] heart with stable angina pectoris 12/27/2022 Atherosclerosis of coronary artery bypass graft of [place] heart with angina pectoris 10/13/2022 Encounter for [...] pacemaker 07/10/2020 Atrioventricular block, Mobitz type 1, Noemic h 06/09/2020 Vitamin B12 deficiency 05/30/2020 Polyarticular [...] urinary tract symp toms 07/13/2001 Atherosclerosis of [place] ronary artery of [place] heart without angina pectoris documented as of this encounter (statuses as of 01/02/2023) Resolved Problems Problem Noted Date Diagnosed Date [...] use aero chamber. Test performed by Dori TRUCK SALES REPRESENTATIVE CPFT Body mass index (BMI) of 45. [...] TIA (transient ischemic attack) 02/04/2016 11/23/2017 Overview: [facility] Anemia of chronic renal failure [...] CASE MANAGEMENT 07/22/200812/01 Overview: Kianna Lyn RN [phone] Examination following surgery 07/11/2008 12/31/2011 Difficult intubation 07/10/2008 021 Overview: Patient seen and examined in OR#1.Possible difficult intubation.TM distance about 5 cms.MP 3-4. Will plan FOB electively Due to current situation. EXAMINATION OF PARTICIPANT I N CLINICAL TRIAL-genomics 07/04/2008 05/30/2009 Overview: Renamed Per Clinical Trials Billing Project. Study Titile: Genomic Markers for Patients with Cardiovascular Disease Project #[id number] PI: Miriam Roque MD Please call [phone] with study related questions Chronic coronary artery [...] not at goal 07/04/200809/06 GENOMICS CARDIO RESEARCH OTHER*[id number] 07/04/2008 03/23/2016 Overview: Renamed Per Clinical Trials Billing Project. Study Titile: Genomic Markers for Patients with Cardiovascular Disease Project #[id number] PI: Miriam Roque MD Please call [phone] with study related questions Kidney disease, chronic, [...] as of this encounter (statuses as of 01/02/2023) Immunizations Name Administration Dates Next Due COVID-19 mRNA, LNP-s, No Pre serve, 2-Dose Series ([employer]) 12/09/2020,05/09/2020,04/11/2020 COVID-19, LNP-s, No Preserve , Juan [...] encounter Miscellaneous Notes * Telephone Encounter - Rosa Molina RPh - 01/02/2023 10:39 AM ESTSigned Prescriptions: Disp Refills OneTouch UltraSoft Lancets 450 Ea*3 Sig: Test blood sugar up to five times daily; dx E11.9Authorizing Provider: Luis MENARD User: ROSA MOLINA documented in this encounter Plan of Treatment Upcoming Encounters Date Type Department Care Team (Late st Contact Info) Description 01/04/2023 6:10 PM EST Pharmacy Pharmacy, [address] [place] [address] [place] [address] 01/28/2023 2:00 PM EST Office Visit Nephrology [address] [place] [address] Verito Jovel PA-C [address] [place] [address] 03/04/2023 10:30 AM EST Office Visit Gastroenterology [address] [place] [address] Marielena Hall CRNP [address] [place] [address] 03/28/2023 9:30 AM EST Office Visit Cardiology, [facility] [address] [place] [address] Nevaeh Linda PA-C [address] [place] [address] 03/29/2023 11:00 AM EST Office Visit Family Medicine [address] [place] [phone] Nicola Menard MD [address] [place] [address] [place] [address] 03/29/2023 12:30 PM EST Office Visit Cardiology [address] [place] [address] Blair Hannah PA-C [address] [place] [address] 04/05/2023 9:45 AM EST Office Visit Urology, [facility] [address] [place] [address] Denny Armando MD [address] [place] [address] 05/20/2023 2:00 PM EDT Office Visit Rheumatology [address] [place] [phone] Jenni Perez, DRY CURE WORKER [address] [facility] [place] [address] 06/02/2023 11:00 AM EDT Nurse Only Ancillary [address] [place] [address] Nurse Neeraj [address] [place] [address] 10/12/2023 11:20 AM EDT [facility] [place] [phone] Eulalia Milligan DO 132 [facility] [place] [address] 10/25/2023 10:00 AM EDT Cardiac Studies Cardiology [address] [place] [address] [facility] [address] [facility] [place] [address] Scheduled Procedures Name Priority Associated Diagnoses Date/Ti [...] this encounter Medical Devices Implanted Type Area Shift Manager Device Identifier Shelf Expiration Date Model / Serial / Lot Sut Steel 6 [id number] - [id number] Implanted:Qty: 6 on 07/10/2008 at OR [facility] [place] N/A: Chest DO NOT USE 08/14/2012 [id number] / / [id number] documented as of this encounter Visit Diagnoses Diagnosis Type 2 diabetes mellitus with hemoglobin A1c goal of less than 8.0% (HCC) documented in this encounter Advance Directives Documents on File Type Date Recorded Patient Splicing Machine Operator Expl anation Power of Community Living Specialist 06/26/2019 POWER OF A TTORNEY Advance [...] the patient have Health Care Power of Community Living Specialist? No Code Status History Code Status [...] patient or by statute hierarchy) Care Teams Pollution Control Chemist Relationship Specialty Start Date End Date Nicola Menard MD [address] [place] [address] [place] [address] PCP - General Family Medicine 06/19/21 documented as of this encounter
--- OUTSIDE RECORDS SUMMARY | 2023-02-03 20:16 | External Medical Summary | Summary of Care ---
Author Name Unknown Organization [facility] Address [address] [place] [address] Phone [phone] Care Team Providers Care Picking Machine Operator Name Role Phone Nicola Prado MD Primary Care Provide r Reason for Visit * Reason Onset Date Comments Med Request 11/16/2022 Encounter Details Date Type Department Care Team (Late st Contact Info) Description 11/16/2022 Telephone Nephrology, [address] [address] Services, Scheduling [address] [place] [address] Med Request Allergies Active Allergy Reactions Criticality Noted Date [...] intubation 1 Tab Oral Daily 1 0 9 Active Fluticasone Propionate 50 MCG/ACT Nasal Suspension (Flonase) Administer 2 Sprays into nostril in the morning. 0 Active Folic Acid 1 MG Oral TabletIndications :Iron deficiency anemia due to chronic blood loss,Folic acid deficiency,B12 deficiency Take 1 TabLET by mouth daily. 30 Tablet 11 2 Active Betamethasone Dipropionate 0.05 % External OintmentIndicatio ns:Plaque psoriasis,Asteato tic eczema Apply 2x daily to rash on back/abdomen/a sang/legs until resolved, then when flaring again 100 g 0 2 Active Probiotic Daily Oral Capsule Take by [...] pain. Wash hands after.. 100 g 1 2 Active Triamcinolone Acetonide 0.1 % External Ointment (Aristocort)Indic ations:Plaque psoriasis Apply to rash on trunk/arms/leg s 2x daily (when thinner and less noticeable and less bothersome) until resolved, then when flaring 454 g 1 2 Active OneTouch Ultra In Vitro Strip (Glucose Blood)Indications :Type 2 diabetes mellitus with hemoglobin A1c goal of less than 8.0% ([facility]) 3-4 times a day 450 Strip 3 2 Active Xiidra 5 % Ophthalmic Solution instill 1 drop by ophthalmic route 2 times every day into both eyes. OK for 90 day supply. 0 2 Active Tamsulosin HCl 0.4 MG Oral Capsule (Flomax)Indicatio ns:Lower urinary tract symptoms Take 1 Capsule by mouth in the morning. 90 Capsule 3 3 Active Nitroglycerin 0.4 MG Sublingual Tablet Sublingual (Nitrostat) 1 every 5 minutes as needed with chest pain up to 3 doses in 15 minutes 25 Tablet 1 3 Active Victoza 18 MG/3ML Subcutaneous Solution Pen-injector (Liraglutide)Kimberly cations:Type 2 diabetes mellitus with hemoglobin A1c goal of less than 8.0% (HCC),Type 2 diabetes mellitus with stage 4 chronic kidney disease, with long-term current use of insulin (HCC) Inject 1.8 mg under the skin daily. 27 mL 3 3 Active Furosemide 80 MG Oral Tablet (Lasix) Take 1 Tablet by mouth in the morning. 90 Tablet 1 3 Active Atorvastatin Calcium 80 MG Oral Tablet (Lipitor)Indicati ons:Dyslipidemia, goal LDL below 70 Take 1 Tablet by mouth daily. 90 Tablet 0 3 Active guaiFENesin ER 600 MG Oral Tablet Extended Release 12 Hour (Mucinex)Indicati ons:COPD exacerbation (HCC) Take 1 Tablet by mouth 2 times a day as needed for Congestion. Take with plenty of water. Do not cut, crush or chew 40 Tablet 0 3 Active Tresiba FlexTouch 200 UNIT/ML Subcutaneous Solution Pen-injector (Insulin Degludec)Indicati ons:Type 2 diabetes mellitus with hemoglobin A1c goal of less than 8.0% ([facility]) Inject 100 Units under the skin daily. 90 mL 3 3 Active Octreotide Acetate 50 MCG/ML Injection Solution (Sandostatin) Inject 50mcg under the skin in the morning and the evening. 180 mL 1 3 Active Omeprazole 20 MG Oral Capsule Delayed Release (PriLOSEC) Take 1 Capsule BY MOUTH in the morning AND 1 Capsule before bedtime. 60 Capsule 3 3 Active Isosorbide Mononitrate ER 60 MG Oral Tablet Extended Release 24 Hour (Imdur)Indication s:Chronic diastolic heart failure (HCC) Take 1 Tablet by mouth in the morning. 90 Tablet 3 3 Active oxygen IN GAS Use 2 L/min(Oxygen) as directed daily. 2.5 LPMBled through bipap And 2 LPM with exertion DME: AHP 1 Each 0 1 12/03/19 23 Discontinued(Ref ill) Allopurinol 300 MG Oral Tablet (Zyloprim) Take 1 Tablet by mouth daily. 90 Tablet 3 2 12/18/19 23 Discontinued OneTouch UltraSoft LancetsIndication s:Type 2 diabetes mellitus with hemoglobin A1c goal of less than 8.0% ([facility]) Test blood sugar up to five times daily; dx E11.9 450 Each 3 2 01/03/20 23 Discontinued NovoLOG FlexPen 100 UNIT/ML Subcutaneous Solution Pen-injector (insulin aspart)Indication s:Type 2 diabetes mellitus with hemoglobin A1c goal of less than 8.0% ([facility]) 12 units with breakfast and supper PLUS correction factor of 1:25 if over 140 mg/dL 110 mL 3 3 12/29/19 Discontinued Easy Touch Pen [place] 31G X 8 MM (Insulin Pen Needle)Indication s:Type 2 diabetes mellitus with hemoglobin A1c goal of less than 8.0% ([facility]),Type 2 diabetes mellitus with stage 4 chronic kidney disease, unspecified whether intermediate frame tender insulin use ([facility]) Use up to six times daily with insulin. DXe11.9 600 Each 3 3 12/08/19 Discontinued(Ref ill) Albuterol Sulfate HFA 108 (90 Base) MCG/ACT Inhalation Aerosol SolutionIndicatio ns:COPD exacerbation ([facility]),Chronic cough Inhale by mouth 2 Puffs every 4 hours as needed for Cough or Shortness of Breath. Reports doesn't help 18 g 2 3 12/02/19 Discontinued BD TB Syringe 27G X 1/2" 1 ML (Tuberculin Syringe) Use twice daily to inject octreotide 180 Each 1 3 12/07/19 Discontinued(Ref ill) Isosorbide Mononitrate ER 30 MG Oral Tablet Extended Release 24 Hour (Imdur) Take 2 Tablets by mouth in the morning. In the morning.. 180 Tablet 3 3 11/18/19 Discontinued(Ref ill) Octreotide Acetate 10 MG Intramuscular Kit (SandoSTATIN LAR [place]) Inject 10 mg into a large muscle every month. 1 Kit 12 3 12/03/19 Discontinued Ciprofloxacin HCl 500 MG Oral Tablet (Cipro)Indication s:Diarrhea, unspecified type Take 1 Tablet by mouth in the morning and 1 Tablet before bedtime. Do all this for 10 days. 20 Tablet 0 3 12/03/19 Discontinued Vancomycin HCl 125 MG Oral Capsule (Vancocin) Take 1 Capsule by mouth every 6 hours. For 7 days 28 Capsule 0 3 12/03/19 Discontinued Enbrel SureClick 50 MG/ML Subcutaneous Solution Auto-injector (Etanercept)Indic ations:Polyarticu lar psoriatic arthritis (HCC),H/O psoriasis Inject 50 mg (1 pen) under the skin once a week. 4 mL 1 3 11/18/19 23 Discontinued(Ref ill) Hospital, Clinic, or Other Facility Administered Medication Ordered Dose Route Frequency Start Date End Date Status Albuterol Sulfate (Proventil) (2.5 MG/3ML) 0.083% inhalation solution 2.5 mgIndications:Dyspn ea and respiratory abnormalities 2.5 mg NEBULIZER PRN 05/18/2022 4 Active Albuterol Sulfate (Proventil) (5 MG/ML) 0.5% *conc* inhalation solution 2.5 mgIndications:Dyspn ea and respiratory abnormalities 2.5 mg NEBULIZER PRN 05/18/2022 3 Discontinued documented as of this encounter (statuses as of 01/04/2023) Active Problems Problem Noted Date Diagnosed Date Atherosclerosis of [place] co ronary artery of [place] heart with stable angina pectoris 12/27/2022 Atherosclerosis of coronary artery bypass graft of [place] heart with angina pectoris 10/13/2022 Encounter for [...] 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 Anemia of chronic renal failure 07/30/2015 [...] CASE MANAGEMENT 07/22/200812/01 Overview: Kianna Lyn RN [phone] Examination following surgery 07/11/2008 12/31/2011 Difficult intubation 07/10/2008 021 Overview: Patient seen and examined in OR#1.Possible difficult intubation.TM distance about 5 cms.MP 3-4. Will plan FOB electively Due to current situation. EXAMINATION OF PARTICIPANT I N CLINICAL TRIAL-genomics 07/04/2008 05/30/2009 Overview: Renamed Per Clinical Trials Billing Project. Study Titile: Genomic Markers for Patients with Cardiovascular Disease Project #[id number] PI: Miriam Roque MD Please call [phone] with study related questions Chronic coronary artery [...] not at goal 07/04/200809/06 GENOMICS CARDIO RESEARCH OTHER*[id number] 07/04/2008 03/23/2016 Overview: Renamed Per Clinical Trials Billing Project. Study Titile: Genomic Markers for Patients with Cardiovascular Disease Project #[id number] PI: Miriam Roque MD Please call [phone] with study related questions Kidney disease, chronic, [...] mRNA, LNP-s, No Pre serve, 2-Dose Series ([employer]) 12/09/2020,05/09/2020,04/11/2020 COVID-19, LNP-s, No Preserve , Juan [...] encounter Miscellaneous Notes * Telephone Encounter - Radha Hammer RN - 11/19/2022 11:09 AM EDT Refill requested. Please review. Pended for signature. * Telephone Encounter - Quin Narvaez MD - 11/19/2022 11:02 AM EDT Pls renew for one month and send rest to cardiology/ blair Hannah; I generally do not rx/manage cardiology med like imdur Pls CALL pt and tell him what's happening * Telephone Encounter - Davis Miguel OSA - 11/17/2022 4:17 PM EDT Pt is calling to see if there was an update on his medication. * Telephone Encounter - Miriam Carrero LPN - 11/17/2022 8:01 AM EDT Please review and approve medication refill request. 08/11/2022 (in office), * Telephone Encounter - Miriam Recinos OSA - 11/16/2022 5:28 PM EDT Pt needs a new script for Imdor 60mg 1x day in am sent to [facility] Pt can be reached at [phone] documented in this encounter Plan of Treatment Upcoming Encounters Date Type Department Care Team (Late st Contact Info) Description 01/04/2023 6:10 PM EST Pharmacy Pharmacy, [address] [place] [address] [place] [address] Type 2 diabetes mellitus with hemoglobin A1c goal of less than 8.0% ([facility] 01/28/2023 2:00 PM EST Office Visit Nephrology [address] [place] [address] Verito Jovel PA-C [address] [facility] [place] [address] 02/01/2023 6:10 PM EST Pharmacy Pharmacy, [address] [place] [phone] [place] [address] 03/04/2023 10:30 AM EST Office Visit Gastroenterology [address] [place] [address] Marielena Hall CRNP [address] [facility] [place] [address] 03/28/2023 9:30 AM EST Office Visit Cardiology, [facility] [address] [facility] [place] [address] Nevaeh Linda PA-C [address] [place] [address] [place] [address] 03/29/2023 11:00 AM EST Office Visit Family Medicine [address] [place] [phone] Nicola Prado MD [address] [place] [address] [place] [address] 03/29/2023 12:30 PM EST Office Visit Cardiology [address] [place] [address] Blair Hannah PAJovanniC [address] [place] [address] 04/05/2023 9:45 AM EST Office [facility]rology, [facility] [place] [address] Denny Armando MD [address] [place] [address] [place] [address] 05/20/2023 2:00 PM EDT Office Visit Rheumatology [address] [place] [phone] Jenni Perez CRNP [address] [facility] [place] [address] 06/02/2023 11:00 AM EDT Nurse Only Ancillary [address] [place] [address] Neeraj, [address] [place] [address] 10/12/2023 11:20 AM EDT Office Visit [facility] [place] [phone] Eulalia Milligan DO 132 [facility] [place] [address] 10/25/2023 10:00 AM EDT Cardiac Studies Cardiology [address] [place] [address] [facility] [address] [facility] [place] [address] Scheduled Procedures Name Priority Associated Diagnoses Date/Ti [...] this encounter Medical Devices Implanted Type Area Bridge Manager Device Identifier Shelf Expiration Date Model / Serial / Lot Sut Steel 6 [id number] - [id number] Implanted:Qty: 6 on 07/10/2008 at OR [facility] [place] N/A: Chest DO NOT USE 08/14/2012 [id number] / / [id number] documented as of this encounter Visit Diagnoses Diagnosis Chronic diastolic heart failure (HCC)- Primary Chronic diastolic heart failure Type 2 diabetes mellitus with hemoglobin A1c goal of less than 8.0% (HCC)- Primary documented in this encounter Additional Health Concerns Infection Onset Date Last Indicated Resolved Time C. difficile 11/05/2022 11/05/2022 12/05/2022 12:2 0 AM EDT documented as of this encounter Advance Directives Documents on File Type Date Recorded Patient Infantryman Expl anation Power of Sample Color Maker 06/26/2019 POWER OF A TTORNEY Advance [...] the patient have Health Care Power of Sample Color Maker? No Code Status History Code Status [...] patient or by statute hierarchy) Care Teams Picking Machine Operator Relationship Specialty Start Date End Date Nicola Prado MD [address] [place] [address] [place] [address] PCP - General Family Medicine 06/19/21 documented as of this encounter
--- OUTSIDE RECORDS SUMMARY | 2023-02-03 20:16 | External Medical Summary | Summary of Care ---
Author Name Unknown Organization [facility] Address [address] [place] [address] Phone [phone] Care Team Providers Care Hydraulic Punch Press Operator Name Role Phone Nicola Prado MD Primary Care Provide r Reason for Visit * Reason Onset Date Comments Other 01/04/2023 Encounter Details Date Type Department Care Team (Late st Contact Info) Description 01/04/2023 Telephone Pharmacy, [facility] [address] [place] [address] [place] [address] [place] [address] Other Allergies Active Allergy Reactions Criticality Noted Date Comments Hydromorphone High 09/20/2021 Other reaction(s): Nausea Other reaction(s): Nausea 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/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 Other reaction(s): AMS Other reaction(s): AMS Prasugrel 04/02/2016 bleeding Prednisone High 09/20/2021 Other reaction(s): INCREASE BLOOD SUGAR Other reaction(s): INCREASE BLOOD SUGAR documented as of this encounter (statuses as of 01/05/2023) Medications Medication Sig Dispensed Refills Start Date [...] with long-term current use of insulin ([facility]) Inject 1.8 mg under [...] Extended Release 12 Hour (Mucinex)Indications :COPD exacerbation ([facility]) Take 1 Tablet by mouth 2 times a day as needed for Congestion. Take with plenty of water. Do not cut, crush or chew 40 Tablet 0 10/13/2022 Active Tresiba FlexTouch 200 UNIT/ML Subcutaneous Solution Pen-injector (Insulin Degludec)Indications :Type 2 diabetes mellitus with hemoglobin A1c goal of less than 8.0% ([facility]) Inject 100 Units under [...] Auto-injector (Etanercept)Indicati ons:H/O psoriasis,Polyarticu lar psoriatic arthritis ([facility]) Inject 50 mg under the [...] AHP. 0 12/02/2022 Active Easy Touch Pen [place] 31G X 8 MM (Insulin Pen Needle)Indications:T ype 2 diabetes mellitus with hemoglobin A1c goal of less than 8.0% (HCC),Type 2 diabetes mellitus with stage 4 chronic kidney disease, unspecified whether longwall foreman insulin use (HCC) Use up to eight times daily with insulin. DXe11.9 600 Each 3 12/07/2022 Active Allopurinol 300 MG Oral Tablet (Zyloprim) Take 1 Tablet by mouth daily. 90 Tablet 1 12/17/2022 Active [employer] Voice Blood Glucose w/Device Kit Use as directed to test blood sugars up to four times daily DxE11.9 1 Kit 0 12/21/2022 Active [employer] No Coding Blood Gluc In Vitro Strip [...] as of this encounter (statuses as of 01/05/2023) Active Problems Problem Noted Date Diagnosed Date Atherosclerosis of [place] co ronary artery of [place] heart with stable angina pectoris 12/27/2022 Atherosclerosis of coronary artery bypass graft of [place] heart with angina pectoris 10/13/2022 Encounter for [...] urinary tract symp toms 07/13/2001 Atherosclerosis of [place] co ronary artery of [place] heart without angina pectoris documented as of this encounter (statuses as of 01/05/2023) Resolved Problems Problem Noted Date Diagnosed Date [...] use aero chamber. Test performed by Dori HANDYMAN CPFT Body mass index (BMI) of 45. [...] CASE MANAGEMENT 07/22/200812/01 Overview: Kianna Lyn RN [phone] Examination following surgery 07/11/2008 12/31/2011 Difficult intubation 07/10/2008 021 Overview: Patient seen and examined in OR#1.Possible difficult intubation.TM distance about 5 cms.MP 3-4. Will plan FOB electively Due to current situation. EXAMINATION OF PARTICIPANT I N CLINICAL TRIAL-genomics 07/04/2008 05/30/2009 Overview: Renamed Per Clinical Trials Billing Project. Study Titile: Genomic Markers for Patients with Cardiovascular Disease Project #[id number] PI: Miriam Roque MD Please call [phone] with study related questions Chronic coronary artery [...] not at goal 07/04/200809/06 GENOMICS CARDIO RESEARCH OTHER*[id number] 07/04/2008 03/23/2016 Overview: Renamed Per Clinical Trials Billing Project. Study Titile: Genomic Markers for Patients with Cardiovascular Disease Project #[id number] PI: Miriam Roque MD Please call [phone] with study related questions Kidney disease, chronic, [...] as of this encounter (statuses as of 01/05/2023) Immunizations Name Administration Dates Next Due COVID-19 [...] encounter Miscellaneous Notes * Telephone Encounter - Jannette Su PHARM Tech - 01/05/2023 10:33 AM EST Caller's name: Maurisio Preferred call back number(OFFICE NUMBER FOR ): [phone] Reason for call: Pt returning call from Vesna Soler. Thank you, Jannette Su Pss Delivery Professional Centralized Clinical Pharmacy Services (CCPS) (formerly Telepharmacy) 01/05/2023,10:33 AM * Telephone Encounter - Karlene Alvarez RPh - 01/04/2023 12:27 PM EST Patient Phone Numbers Returned patient's call, no answer. Left message to return call to clinic to discuss. Karlene Alvarez RPh, PharmD Clinical Pharmacist - Sock Turner Medication Therapy [facility] 01/04/2023, 12:28 PM [phone] * Telephone Encounter - Rubin Adams residential monitor - 01/04/2023 8:26 AM EST Caller's name: Maurisio Preferred call back number(OFFICE NUMBER FOR ): [phone] Reason for call: Pt requesting to speak to [facility] regarding DM appt before rescheduling it. Thank you, Rubin Adams [facility] Pss Delivery Professional [employer] Telepharmacy 01/04/2023,8:26 AM documented in this encounter Plan of Treatment Upcoming Encounters Date Type Department Care Team (Late st Contact Info) Description 01/28/2023 2:00 PM EST Office Visit Nephrology [address] [place] [address] FernandomaVerito paiz PA-C 200 [facility] [place] [address] 02/01/2023 6:10 PM EST Pharmacy Pharmacy, [address] [place] [address] [place] [address] 03/04/2023 10:30 AM EST Office Visit Gastroenterology [address] [place] [address] Marielena Hall CRNP [address] [place] [address] 03/28/2023 9:30 AM EST Office Visit Cardiology, [facility] [address] [place] [address] Nevaeh Linda PA-C [address] [place] [address] 03/29/2023 11:00 AM EST Office Visit Family Medicine [address] [place] [phone] Nicola Prado MD [address] [place] [address] [place] [address] 03/29/2023 12:30 PM EST Office Visit Cardiology [address] [place] [address] Blair Hannah PA-C [address] [place] [address] 04/05/2023 9:45 AM EST Office Visit Urology, [facility] [address] [place] [address] Denny Armando MD [address] [address] [place] [address] 05/20/2023 2:00 PM EDT Office Visit Rheumatology [address] [place] [phone] Jenni Perez, FRANCHESKA [address] [place] [address] [place] [address] 06/02/2023 11:00 AM EDT Nurse Only Ancillary [address] [place] [address] Neeraj, Nurse [address] [place] [address] 10/12/2023 11:20 AM EDT Office Visit Sleep Disorders Ctr [facility] [address] [place] [phone] Eulalia Milligan DO [address] [place] [address] 10/25/2023 10:00 AM EDT Cardiac Studies Cardiology [address] [place] [address] [facility] [address] [place] [address] Scheduled Procedures Name Priority Associated Diagnoses Date/Ti [...] this encounter Medical Devices Implanted Type Area Auto Specialty Services Manager Device Identifier Shelf Expiration Date Model / Serial / Lot Sut Steel 6 [id number] - [id number] Implanted:Qty: 6 on 07/10/2008 [place] [facility] [place]: Chest DO NOT USE 08/14/2012 [id number] / / [id number] documented as of this encounter Advance Directives Documents on File Type Date Recorded Patient Back End Developer Expl anation Power of Public Address System Operator 06/26/2019 POWER OF A TTORNEY Advance [...] the patient have Health Care Power of Public Address System Operator? No Code Status History Code Status [...] patient or by statute hierarchy) Care Teams Hydraulic Punch Press Operator Relationship Specialty Start Date End Date Nicola Prado MD [address] [place] [address] [place] [address] PCP - General Family Medicine 06/19/21 documented as of this encounter
--- OUTSIDE RECORDS SUMMARY | 2023-02-03 20:16 | External Medical Summary | Summary of Care ---
Author Name Unknown Organization [facility] Address [address] [place] [address] Phone [phone] Care Team Providers Care Engineering Program Analyst Name Role Phone Nicola Prado MD Primary Care Provide r Reason for Visit * Reason Onset Date Comments Other 01/04/2023 Encounter Details Date Type Department Care Team (Late st Contact Info) Description 01/04/2023 Telephone Pharmacy, [facility] [address] [place] [address] [place] [address] [place] [address] Other Allergies Active [...] Extended Release 12 Hour (Mucinex)Indications :COPD exacerbation ([facility]) Take 1 Tablet by mouth 2 [...] Auto-injector (Etanercept)Indicati ons:H/O psoriasis,Polyarticu lar psoriatic arthritis ([facility]) Inject 50 mg under the skin [...] AHP. 0 12/02/2022 Active Easy Touch Pen [place] 31G X 8 MM (Insulin Pen Needle)Indications:T ype 2 diabetes mellitus with hemoglobin A1c goal of less than 8.0% (HCC),Type 2 diabetes mellitus with stage 4 chronic kidney disease, unspecified whether predatory animal exterminator insulin use (HCC) Use up to eight times daily with insulin. DXe11.9 600 Each 3 12/07/2022 Active Allopurinol 300 MG Oral Tablet (Zyloprim) Take 1 Tablet by mouth daily. 90 Tablet 1 12/17/2022 Active [employer] Voice Blood Glucose w/Device Kit Use as directed to test blood sugars up to four times daily DxE11.9 1 Kit 0 12/21/2022 Active [employer] No Coding Blood Gluc In Vitro [...] Problem Noted Date Diagnosed Date Atherosclerosis of [place] co ronary artery of [place] heart with stable angina pectoris 12/27/2022 Atherosclerosis of coronary artery bypass graft of [place] heart with angina pectoris 10/13/2022 Encounter for [...] urinary tract symp toms 07/13/2001 Atherosclerosis of [place] co ronary artery of [place] heart without angina pectoris documented as of [...] use aero chamber. Test performed by Dori FUNERAL HOME ASSOCIATE CPFT Body mass index (BMI) of 45. [...] TIA (transient ischemic attack) 02/04/2016 11/23/2017 Overview: [facility] Anemia of chronic renal failure [...] CASE MANAGEMENT 07/22/200812/01 Overview: Kianna Lyn RN [phone] Examination following surgery 07/11/2008 12/31/2011 Difficult intubation 07/10/2008 021 Overview: Patient seen and examined in OR#1.Possible difficult intubation.TM distance about 5 cms.MP 3-4. Will plan FOB electively Due to current situation. EXAMINATION OF PARTICIPANT I N CLINICAL TRIAL-genomics 07/04/2008 05/30/2009 Overview: Renamed Per Clinical Trials Billing Project. Study Titile: Genomic Markers for Patients with Cardiovascular Disease Project #[id number] PI: Miriam Roque MD Please call [phone] with study related questions Chronic coronary artery [...] not at goal 07/04/200809/06 GENOMICS CARDIO RESEARCH OTHER*[id number] 07/04/2008 03/23/2016 Overview: Renamed Per Clinical Trials Billing Project. Study Titile: Genomic Markers for Patients with Cardiovascular Disease Project #[id number] PI: Miriam Roque MD Please call [phone] with study related questions Kidney disease, chronic, [...] Karlene Alvarez RPh, PharmD Clinical Pharmacist - Orthotic/Prosthetic Practitioner Medication Therapy Disease Management Clinic 01/04/2023, 12:28 PM [phone] * Telephone Encounter - Rubin Adams PHARM Tech - 01/04/2023 8:26 AM EST Caller's name: Maurisio Preferred call back number(OFFICE NUMBER FOR ): [phone] Reason for call: Pt requesting to speak to [facility] regarding DM appt before rescheduling it. Thank you, Rubin Adams CPhT Silk Screen Layout Drafter [employer] Telepharmacy 01/04/2023,8:26 AM documented in this encounter Plan of Treatment Upcoming Encounters Date Type Department Care Team (Late st Contact Info) Description 01/04/2023 6:10 PM EST Pharmacy Pharmacy, [address] [place] [address] [place] [address] Type 2 diabetes mellitus with hemoglobin A1c goal of less than 8.0% ([facility])* 01/28/2023 2:00 PM EST Office Visit Nephrology [address] [place] [address] Verito Jovel PA-C [facility] [place] [address] 02/01/2023 6:10 PM EST Pharmacy Pharmacy, [address] [place] [address] [place] [address] 03/04/2023 10:30 AM EST Office Visit Gastroenterology [address] [place] [address] Marielena Hall CRNP 132 [facility] [place] [address] 03/28/2023 9:30 AM EST Office Visit Cardiology, [facility] [address] [place] [address] Nevaeh Linda PA-C [address] [place] [address] [place] [address] 03/29/2023 11:00 AM EST Office Visit Family Medicine [address] [place] [phone] Nicola Prado MD [address] [place] [address] [place] [address] 03/29/2023 12:30 PM EST Office Visit Cardiology [address] [place] [address] Blair Hannah PA-C [address] [place] [address] 04/05/2023 9:45 AM EST Office Visit Urology, [facility] [place] [address] Denny Armando MD [address] [place] [address] [place] [address] 05/20/2023 2:00 PM EDT Office Visit Rheumatology [address] [place] [phone] Jenni Perez CRNP [address] [place] [address] [place] [address] 06/02/2023 11:00 AM EDT Nurse Only Ancillary [address] [place] [address] Nurse Neeraj [address] [place] [address] 10/12/2023 11:20 AM EDT Office Visit [facility] Disorders Ctr [facility] [place] [phone] Eulalia Milligan DO [address] [place] [address] 10/25/2023 10:00 AM EDT Cardiac Studies Cardiology [address] [place] [address] Neeraj Pacer [facility] [address] [place] [address] Scheduled Procedures Name Priority Associated Diagnoses Date/Ti [...] this encounter Medical Devices Implanted Type Area Rotary Helper Device Identifier Shelf Expiration Date Model / Serial / Lot Lei Agrawal 6 [id number] - [id number] Implanted:Qty: 6 [place] 07[place] [facility] [place] Chest DO NOT USE 08/14/2012 [id number] / / [id number] documented as of this encounter Advance Directives Documents on File Type Date Recorded Patient Cyber Systems Operations Specialist Expl anation Power of Drill Runner Helper 06/26/2019 POWER OF A TTORNEY Advance [...] the patient have Health Care Power of Drill Runner Helper? No Code Status History Code Status [...] patient or by statute hierarchy) Care Teams Engineering Program Analyst Relationship Specialty Start Date End Date Nicola Prado MD [address] [place] [address] [place] [address] PCP - General Family Medicine 06/19/21 documented as of this encounter
--- OUTSIDE RECORDS SUMMARY | 2023-02-03 20:16 | External Medical Summary | Summary of Care ---
Author Name Unknown Organization [facility] Address [address] [place] [address] Phone [phone] Care Team Providers Care Clam Dredger Name Role Phone Niocla Prado MD Primary Care Provide r Reason for Visit * Reason Onset Date Comments Other 01/04/2023 Encounter Details Date Type Department Care Team (Late st Contact Info) Description 01/04/2023 Telephone Pharmacy, Eliza Rothman [address] [place] [address] [place] [address] [place] [address] Other Allergies Active [...] disease, with long-term current use of insulin ([facility]) Inject 1.8 mg under the [...] Extended Release 12 Hour (Mucinex)Indications :COPD exacerbation ([facility]) Take 1 Tablet by mouth 2 times a day as needed for Congestion. Take with plenty of water. Do not cut, crush or chew 40 Tablet 0 10/13/2022 Active Tresiba FlexTouch 200 UNIT/ML Subcutaneous Solution Pen-injector (Insulin Degludec)Indications :Type 2 diabetes mellitus with hemoglobin A1c goal of less than 8.0% ([facility]) Inject 100 Units under the [...] Auto-injector (Etanercept)Indicati ons:H/O psoriasis,Polyarticu lar psoriatic arthritis ([facility]) Inject 50 mg under the [...] AHP. 0 12/02/2022 Active Easy Touch Pen [place] 31G X 8 MM (Insulin Pen Needle)Indications:T ype 2 diabetes mellitus with hemoglobin A1c goal of less than 8.0% (HCC),Type 2 diabetes mellitus with stage 4 chronic kidney disease, unspecified whether long term acute care registered nurse insulin use (HCC) Use up to eight times daily with insulin. DXe11.9 600 Each 3 12/07/2022 Active Allopurinol 300 MG Oral Tablet (Zyloprim) Take 1 Tablet by mouth daily. 90 Tablet 1 12/17/2022 Active [employer] Voice Blood Glucose w/Device Kit Use as directed to test blood sugars up to four times daily DxE11.9 1 Kit 0 12/21/2022 Active [employer] No Coding Blood Gluc In Vitro Strip [...] Problem Noted Date Diagnosed Date Atherosclerosis of [place] co ronary artery of [place] heart with stable angina pectoris 12/27/2022 Atherosclerosis of coronary artery bypass graft of [place] heart with angina pectoris 10/13/2022 Encounter for [...] urinary tract symp toms 07/13/2001 Atherosclerosis of [place] co ronary artery of [place] heart without angina pectoris documented as of [...] use aero chamber. Test performed by Dori CLIENT SERVICES ACCOUNT MANAGER CPFT Body mass index (BMI) of 45. [...] TIA (transient ischemic attack) 02/04/2016 11/23/2017 Overview: [facility] Anemia of chronic renal failure [...] CASE MANAGEMENT 07/22/200812/01 Overview: Kianna Lyn RN [phone] Examination following surgery 07/11/2008 12/31/2011 Difficult intubation 07/10/2008 021 Overview: Patient seen and examined in OR#1.Possible difficult intubation.TM distance about 5 cms.MP 3-4. Will plan FOB electively Due to current situation. EXAMINATION OF PARTICIPANT I N CLINICAL TRIAL-genomics 07/04/2008 05/30/2009 Overview: Renamed Per Clinical Trials Billing Project. Study Titile: Genomic Markers for Patients with Cardiovascular Disease Project #[id number] PI: Miriam Roque MD Please call [phone] with study related questions Chronic coronary artery [...] not at goal 07/04/200809/06 GENOMICS CARDIO RESEARCH OTHER*[id number] 07/04/2008 03/23/2016 Overview: Renamed Per Clinical Trials Billing Project. Study Titile: Genomic Markers for Patients with Cardiovascular Disease Project #[id number] PI: Miriam Roque MD Please call [phone] with study related questions Kidney disease, chronic, [...] Karlene Alvarez RPh, PharmD Clinical Pharmacist - Tax Staff Accountant Medication Therapy Disease Management [facility] 01/05/2023, 12:41 PM [phone] * Telephone Encounter - Jannette Su PHARM Tech - 01/05/2023 10:33 AM EST Caller's name: Maurisio Preferred call back number(OFFICE NUMBER FOR ): [phone] Reason for call: Pt returning call from Vesna Soler. Thank you, Jannette Su Head Animal Trainer Centralized Clinical Pharmacy Services (CCPS) (formerly Telepharmacy) 01/05/2023,10:33 AM * Telephone Encounter - Karlene Alvarez RPh - 01/04/2023 12:27 PM EST Patient Phone Numbers Returned patient's call, no answer. Left message to return call to clinic to discuss. Karlene Alvarez [facility], PharmD Clinical Pharmacist - Tax Staff Accountant Medication Therapy Disease Management Clinic 01/04/2023, 12:28 PM [phone] Electronically signed by Karlene Alvarez [facility] at 01/04/2023 12:28 PM EST * Telephone Encounter - Rubin Adams PHARM Tech - 01/04/2023 8:26 AM EST Caller's name: Maurisio Preferred call back number(OFFICE NUMBER FOR ): [phone] Reason for call: Pt requesting to speak to [facility] regarding DM appt before rescheduling it. Thank you, Rubin Adams [facility] Head Animal Trainer [facility] 01/04/2023,8:26 AM documented in this encounter Plan of Treatment Upcoming Encounters Date Type Department Care Team (Late st Contact Info) Description 01/28/2023 2:00 PM EST Office Visit Nephrology [address] [place] [address] ZeVerito gramajo PA-C 200 [facility] [place] [address] 02/01/2023 6:10 PM EST Pharmacy Pharmacy, [address] [place] [address] [place] [address] 03/04/2023 10:30 AM EST Office Visit Gastroenterology [address] [place] [address] Marielena Hall CRNP 132 [facility] [place] [address] 03/28/2023 9:30 AM EST Office Visit [facility], [facility] [place] [address] Nevaeh Linda PA-C [address] [place] [address] [place] [address] 03/29/2023 11:00 AM EST Office Visit Family Medicine [address] [place] [phone] Nicola Prado MD [address] [place] [address] [place] [address] 03/29/2023 12:30 PM EST Office Visit Cardiology [address] [place] [address] Blair Hannah PA-C 132 [facility] [place] [address] 04/05/2023 9:45 AM EST Office Visit Urology, [facility] 132 [facility] [place] [address] Denny Armando MD [address] [place] [address] [place] [address] 05/20/2023 2:00 PM EDT Office Visit Rheumatology [address] [place] [phone] Jenni Perez CRNP [address] [place] [address] [place] [address] 06/02/2023 11:00 AM EDT Nurse Only Ancillary [address] [place] [address] [place], Nurse [address] [place] [address] 10/12/2023 11:20 AM EDT Office Visit Sleep Disorders Ctr [facility] [address] [place] [phone] Eulalia Milligan, [address] [place] [address] 10/25/2023 10:00 AM EDT Cardiac Studies Cardiology [address] [place] [address] [place], Pacer [facility] [place] [address] Scheduled Procedures Name Priority Associated Diagnoses Date/Ti [...] this encounter Medical Devices Implanted Type Area Inspector Metal Fabricating Device Identifier Shelf Expiration Date Model / Serial / Lot Sut Steel 6 M654g - [id number] Implanted:Qty: 6 on 07[place]10[place] [facility] [place]: Chest DO NOT USE 08/14/2012 [id number] / / [id number] documented as of this encounter Advance Directives Documents on File Type Date Recorded Patient Airport Ramp Agent Expl anation Power of Junior Engineer 06/26/2019 POWER OF A TTORNEY Advance Directives [...] the patient have Health Care Power of Junior Engineer? No Code Status History Code Status Date [...] patient or by statute hierarchy) Care Teams Clam Dredger Relationship Specialty Start Date End Date Nicola Prado MD [address] [place] [address] [place] [address] PCP - General Family Medicine 06/19/21 documented as of this encounter
--- OUTSIDE RECORDS SUMMARY | 2023-02-03 20:16 | External Medical Summary | Summary of Care ---
Author Name Unknown Organization [facility] Address [address] [place] [address] Phone [phone] Care Team Providers Care Lens Assistant Name Role Phone Nicola Prado MD Primary Care Provide r Reason for Visit * Reason Onset Date Comments Test Results 12/30/2022 Encounter Details Date Type Department Care Team (Late st Contact Info) Description 12/30/2022 Telephone Cardiology, [facility] [place] [address] [place] [address] Blair Hannah PA-C [address] [place] [id number] Test Results Allergies Active Allergy Reactions Criticality [...] A1c goal of less than 8.0% ([facility]) 3-4 times a day 450 Strip 3 [...] A1c goal of less than 8.0% ([facility]),Type 2 diabetes mellitus with stage 4 chronic kidney disease, with long-term current use of insulin ([facility]) Inject 1.8 mg under the skin [...] Extended Release 12 Hour (Mucinex)Indications :COPD exacerbation ([facility]) Take 1 Tablet by mouth 2 times a day as needed for Congestion. Take with plenty of water. Do not cut, crush or chew 40 Tablet 0 10/13/2022 Active Tresiba FlexTouch 200 UNIT/ML Subcutaneous Solution Pen-injector (Insulin Degludec)Indications :Type 2 diabetes mellitus with hemoglobin A1c goal of less than 8.0% ([facility]) Inject 100 Units under the skin [...] 24 Hour (Imdur)Indications:C hronic diastolic heart failure ([facility]) Take 1 Tablet by mouth in the morning. 90 Tablet 3 11/19/2022 Active Enbrel SureClick 50 MG/ML Subcutaneous Solution Auto-injector (Etanercept)Indicati ons:H/O psoriasis,Polyarticu lar psoriatic arthritis ([facility]) Inject 50 mg under the skin once a week. 4 mL 1 11/17/2022 Active Albuterol Sulfate HFA 108 (90 Base) MCG/ACT Inhalation Aerosol SolutionIndications: COPD exacerbation ([facility]),Chronic cough Inhale 2 Puffs by mouth [...] AHP. 0 12/02/2022 Active Easy Touch Pen [place] 31G X 8 MM (Insulin Pen Needle)Indications:T ype 2 diabetes mellitus with hemoglobin A1c goal of less than 8.0% (HCC),Type 2 diabetes mellitus with stage 4 chronic kidney disease, unspecified whether detention insulin use (HCC) Use up to eight times daily with insulin. DXe11.9 600 Each 3 12/07/2022 Active Allopurinol 300 MG Oral Tablet (Zyloprim) Take 1 Tablet by mouth daily. 90 Tablet 1 12/17/2022 Active Interana Voice Blood Glucose w/Device Kit Use as directed to test blood sugars up to four times daily DxE11.9 1 Kit 0 12/21/2022 Active Interana No Coding Blood Gluc In Vitro Strip (Glucose Blood) Use as directed to test blood sugars up to four times daily DxE11.9 400 Strip 3 12/21/2022 Active NovoLOG FlexPen 100 UNIT/ML Subcutaneous Solution Pen-injector (insulin aspart)Indications:T ype 2 diabetes mellitus with hemoglobin A1c goal of less than 8.0% ([facility]) Inject 12 units with breakfast and supper PLUS correction factor of 1:25 if over 140 mg/dL. Up to 120 units per day. 110 mL 3 12/28/2022 Active Hospital, Clinic, or Other Facility Administered Medication Ordered Dose Route Frequency Start Date End Date Status Albuterol Sulfate (Proventil) (2.5 MG/3ML) 0.083% inhalation solution 2.5 mgIndications:Dyspnea and respiratory abnormalities 2.5 mg NEBULIZER PRN 05/18/2022 05/18/2023 Active documented as of this encounter (statuses as of 01/10/2023) Active Problems Problem Noted Date Diagnosed Date Atherosclerosis of [place] co ronary artery of [place] heart with stable angina pectoris 12/27/2022 Atherosclerosis of coronary artery bypass graft of [place] heart with angina pectoris 10/13/2022 Encounter for [...] urinary tract symp toms 07/13/2001 Atherosclerosis of [place] co ronary artery of [place] heart without angina pectoris documented as of [...] use aero chamber. Test performed by Dori BEAM RACKER CPFT Body mass index (BMI) of 45. [...] (transient ischemic attack) 02/04/2016 11/23/2017 Overview: [facility] Anemia of chronic renal failure 07/30/2015 [...] CASE MANAGEMENT 07/22/200812/01 Overview: Kianna Lyn RN [phone] Examination following surgery 07/11/2008 12/31/2011 Difficult intubation 07/10/2008 021 Overview: Patient seen and examined in OR#1.Possible difficult intubation.TM distance about 5 cms.MP 3-4. Will plan FOB electively Due to current situation. EXAMINATION OF PARTICIPANT I N CLINICAL TRIAL-genomics 07/04/2008 05/30/2009 Overview: Renamed Per Clinical Trials Billing Project. Study Titile: Genomic Markers for Patients with Cardiovascular Disease Project #[id number] PI: Miriam Roque MD Please call [phone] with study related questions Chronic coronary artery [...] not at goal 07/04/200809/06 GENOMICS CARDIO RESEARCH OTHER*[id number] 07/04/2008 03/23/2016 Overview: Renamed Per Clinical Trials Billing Project. Study Titile: Genomic Markers for Patients with Cardiovascular Disease Project #[id number] PI: Miriam Roque MD Please call [phone] with study related questions Kidney disease, chronic, [...] 08/07/2018 Dermatophytosis of nail 11/25/200011/15 Mixed dyslipidemia 01/27/ 9 Overview: Per Lipid Taxonomy. Type 2 [...] mRNA, LNP-s, No Pre serve, 2-Dose Series ([employer]) 12/09/2020,05/09/2020,04/11/2020 COVID-19, LNP-s, No Preserve , Juan [...] encounter Miscellaneous Notes * Telephone Encounter - Yaron Hernández LPN - 01/10/2023 2:57 PM EST Sent patient a letter to follow up on unread [employer] message. * Telephone Encounter - Yaron Hernández LPN - 12/30/2022 1:20 PM EST Sent patient a [employer] message to make aware. Awaiting reply to pend order. ----- Message from Janelle Hutchison RPh sent at 12/29/2022 1:25 PM EST ----- Thanks for heads up! If you would like to proceed with PCSK9, please place telephone encounter with dot phrase cardioprecert and ill take it from there Janelle ----- Message ----- From: Blair Hannah PA-C Sent: 12/29/2022 12:05 PM EST To: Janelle Hutchison RPh; # LDL cholesterol above optimal goal despite atorvastatin 80 mg/day Ezetimibe 10 mg/day discontinued by Nephrology on October 12, 2022 due to bilateral eye pain and worsening eyesight per documentation If unable to tolerate ezetimibe, recommend [facility] referral, RE: PCSK9 inhibitor therapy. * Telephone Encounter - Yaron Hernández LPN - 12/30/2022 1:19 PM EST ----- Message from Blair Hannah PA-C sent at 12/29/2022 12:05 PM EST ----- LDL cholesterol above optimal goal despite atorvastatin 80 mg/day Ezetimibe 10 mg/day discontinued by Nephrology on October 12, 2022 due to bilateral eye pain and worsening eyesight per documentation If unable to tolerate ezetimibe, recommend [facility] referral, RE: PCSK9 inhibitor therapy. documented in this encounter Plan of Treatment Upcoming Encounters Date Type Department Care Team (Late st Contact Info) Description 01/28/2023 2:00 PM EST Office Visit Nephrology [address] [place] [address] Verito Jovel PA-C [address] [facility] [place] [address] 02/01/2023 6:10 PM EST Pharmacy Pharmacy, [address] [place] [address] [place] [address] 03/04/2023 10:30 AM EST Office Visit Gastroenterology [address] [place] [address] Marielena Hall CRNP [address] [place] [address] 03/28/2023 9:30 AM EST Office Visit Cardiology, [facility] [place] [address] [place] [address] Nevaeh Linda PA-C [address] [place] [address] [place] [address] 03/29/2023 11:00 AM EST Office Visit Family Medicine [address] [place] [phone] Nicola Prado MD [address] [place] [address] [place] [address] 03/29/2023 12:30 PM EST Office Visit Cardiology [address] [place] [address] Blair Hannah PA-C [address] [place] [address] 04/05/2023 9:45 AM EST Office Visit Urology, [facility] [place] [address] [place] [address] Denny Armando MD [address] [facility] [address] [place] [address] 05/20/2023 2:00 PM EDT Office Visit Rheumatology [address] [place] [phone] Jenni Perez CRNP [address] [place] [address] [place] [address] 06/02/2023 11:00 AM EDT Nurse Only Ancillary [address] [place] [address] Nurse Neeraj [address] [place] [address] 10/12/2023 11:20 AM EDT Office Visit Sleep Disorders Ctr [facility] [address] [place] [phone] Eulalia Milligan DO [address] [place] [address] 10/25/2023 10:00 AM EDT Cardiac Studies Cardiology [address] [place] [address] [facility] [address] [place] [address] Scheduled Procedures Name Priority Associated Diagnoses Date/Ti [...] this encounter Medical Devices Implanted Type Area Car Hopper Device Identifier Shelf Expiration Date Model / Serial / Lot Sut Steel 6 [id number] - [id number] Implanted:Qty: 6 on 07/10/2008 at OR [facility] N/A: Chest DO NOT USE 08/14/2012 [id number] / / [id number] documented as of this encounter Advance Directives Documents on File Type Date Recorded Patient Medical Insurance Claims Specialist Expl anation Power of Safety Council Director 06/26/2019 POWER OF A TTORNEY Advance Directives [...] the patient have Health Care Power of Safety Council Director? No Code Status History Code Status Date Activated Date Inactivated Comments Full Code 07/10/2008 6:37 PM 07/21/2008 4:52 PM This o rder reflects the patients wishes and were consensually agreed upon. Full Code 07/04/2008 2:18 PM 07/10/2008 6:30 PM Healthcare Agents on File Name Relationship Healthcare Agent [facility] Shane Beltran Adult Child Health Care Repr esentative (appointed verbally by patient or by statute hierarchy) Care Teams Lens Assistant Relationship Specialty Start Date End Date Nicola Prado MD [address] [place] [address] [place] [phone] PCP - General Family Medicine 06/19/21 documented as of this encounter
--- OUTSIDE RECORDS SUMMARY | 2023-02-03 20:17 | External Medical Summary ---
Author Name Unknown Address Unknown Organization [id number]:[facility] [place] [address] [facility] [address] Laboratory Report Ordering Provider Test Date Status [place] 12/27/2022 12:02:22 Final Observation Date Value Abnormality Reference (Units ) Status SYNC LEUKOCYTES IN BLOOD BY AUTOMATED COUNT 12/27/2022 12:02:22 11.90 Above high normal 4.00-10.80 (K/uL) Final Segs 12/27/2022 12:02:22 73.7 40.0-75.0 (%) Final Lymphs % 12/27/2022 12:02:22 12.3 Below low normal 18.0-42.0 (%) Final Monos 12/27/2022 12:02:22 4.1 1.0-11.0 (%) Final Eosinophils 12/27/2022 12:02:22 8.4 Above high normal 0.0-6.0 (%) Final Basos 12/27/2022 12:02:22 0.7 0.0-2.0 (%) Final Immature Granulocyte, Percent 12/27/2022 12:02:22 0.8 0.0-2.0 (%) Final Absolute Segs 12/27/2022 12:02:22 8.78 Above high normal 1.80-7.70 (K/uL) Final Lymphs, absolute 12/27/2022 12:02:22 1.46 1.00-4.80 (K/ul) Final Monos, Abs 12/27/2022 12:02:22 0.49 0.00-1.10 (K/uL) Final Eos, Abs 12/27/2022 12:02:22 1.00 Above high normal 0.00-0.70 (K/uL) Final Basos, Abs 12/27/2022 12:02:22 0.08 0.00-0.20 (K/uL) Final Immature Granulocytes, Number 12/27/2022 12:02:22 0.09 0.00-0.20 (K/uL) Final Performing Location [facility] [place] [facility] [address] [place] [address]
--- OUTSIDE RECORDS SUMMARY | 2023-02-03 20:17 | External Medical Summary ---
Author Name Unknown Address Unknown Organization [id number]:[facility] [place] - [facility] [address] [facility] [address] [facility] [address] Laboratory Report Ordering Provider Test Date Status [place] 12/27/2022 12:02:22 Final Observation Date Value Abnormality Reference (Units ) Status WBC, Total 12/27/2022 12:02:22 11.90 Above high normal 4.00-10.80 (K/uL) Final RBC 12/27/2022 12:02:22 3.97 4.50-5.25 (M/uL) Final Hemoglobin 12/27/2022 12:02:22 12.1 Below low normal 14.0-16.8 (g/dL) Final HCT 12/27/2022 12:02:22 39.5 Below low normal 40.0-48.4 (%) Final MCV 12/27/2022 12:02:22 99.5 82.0-99.5 (fL) Final MCH 12/27/2022 12:02:22 30.5 27.0-34.0 (pg) Final MCHC 12/27/2022 12:02:22 30.6 32.0-36.0 (g/dL) Final RDW 12/27/2022 12:02:22 15.6 11.5-15.5 (%) Final Platelets 12/27/2022 12:02:22 228 140-400 (K/uL) Final MPV 12/27/2022 12:02:22 10.3 6.6-11.1 (fL) Final Nucleated erythrocytes/100 leukocytes [Ratio] in Blood by Automated count 12/27/2022 12:02:22 0 <=0 (/100 WBCs) Final Performing Location [facility] [place] - [address] [facility] [address]
--- OUTSIDE RECORDS SUMMARY | 2023-02-03 20:17 | External Medical Summary ---
Author Name Unknown Address Unknown Organization K01:[facility] - [address] [facility] [address] Laboratory Report Ordering Provider Test Date Status MARYSOL CRABTREE 12/27/2022 12:02:22 Final FASTING Observation Date Value Abnormality Reference (Units ) Status Triglyceride 12/27/2022 12:02:22 176 Above high normal <=174 (mg/dL) Final Triglyceride Reference Range s (mg/dL):
<150 Acceptable
150-174 Borderline high
175-499 High
>=500 Very high Cholesterol 12/27/2022 12:02:22 160 <200 (mg /dL) Final Total Cholesterol Reference Ranges (mg/dL):
<200 Desirable
200-239 Borderline high
>=240 High HDL 12/27/2022 12:02:22 37 Below low normal >39 (mg/dL) Final HDL Cholesterol Reference Ra nges (mg/dL):
>=60 High (Desirable)
<50 Low (Undesirable) For Females
<40 Low (Undesirable) For Males NON-HDL CHOLESTEROL 12/27/2022 12:02:22 123 <=159 (mg/dL) Final Non-HDL Cholesterol Referenc e Range (mg/dL):
<100 Target level for high risk ASCVD patient
<130 Optimal for general population
130-159 Near optimal for general population
160-189 Borderline High
190-219 High
>=220 Very High LDL, (calculated) 12/27/2022 12:02:22 88 <= 129 (mg/dL) Final LDL Cholesterol Reference Ra nges (mg/dL):
<70 Target level for high risk ASCVD patient
<100 Optimal for general population
100-129 Near optimal for general population
130-159 Borderline high
160-189 High
>=190 Very high Performing Location [facility] - [address] [facility] [address]
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
--- OUTSIDE RECORDS SUMMARY | 2023-02-03 20:17 | External Medical Summary | Summary of Care ---
Author Name Unknown Organization [facility] Address [address] [place] [address] Phone [phone] Care Team Providers Care Deck Hand Name Role Phone Nicola Prado MD Primary Care Provide r Reason for Visit * Reason Onset Date Comments Medication Question 12/28/2022 Encounter Details Date Type Department Care Team (Late st Contact Info) Description 12/28/2022 Telephone Pharmacy Call Center [phone] [place] [address] Pharmac[address], [facility] [address] [place] [address] Medication Question Allergies Active Allergy Reactions Criticality Noted Date [...] goal of less than 8.0% ([facility]) Test blood sugar up to five times daily; dx E11.9 450 Each 3 12/17/2021 Active OneTouch Ultra In Vitro Strip (Glucose Blood)Indications: Type 2 diabetes mellitus with hemoglobin A1c goal of less than 8.0% ([facility]) 3-4 times a day 450 [...] goal of less than 8.0% ([facility]),Type 2 diabetes mellitus with stage [...] goal of less than 8.0% ([facility]) Inject 100 Units under the [...] exertion/activit y) DME: AHP. 0 12/02/2022 Active BD TB Syringe 27G X 1/2" 1 ML (Tuberculin Syringe) To be used with Octreotide. 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 DXe11.9 600 Each 3 12/07/2022 Active Allopurinol 300 MG Oral Tablet (Zyloprim) Take 1 Tablet by mouth daily. 90 Tablet 1 12/17/2022 Active [employer] Voice Blood Glucose w/Device Kit Use as directed to test blood sugars up to four times daily DxE11.9 1 Kit 0 12/21/2022 Active [employer] No Coding Blood Gluc In Vitro Strip (Glucose Blood) Use as directed to test blood sugars up to four times daily DxE11.9 400 Strip 3 12/21/2022 Active NovoLOG FlexPen 100 UNIT/ML Subcutaneous Solution Pen-injector (insulin aspart)Indications :Type 2 diabetes mellitus with hemoglobin A1c goal of less than 8.0% ([facility]) Inject 12 units with breakfast and supper PLUS correction factor of 1:25 if over 140 mg/dL. Up to 120 units per day. 110 mL 3 12/28/2022 Active NovoLOG FlexPen 100 UNIT/ML Subcutaneous Solution Pen-injector (insulin aspart)Indications :Type 2 diabetes mellitus with hemoglobin A1c goal of less than 8.0% ([facility]) Inject 12 units with breakfast and supper PLUS correction factor of 1:25 if over 140 mg/dL 110 mL 3 12/28/2022 Discontinue d(Refill) Hospital, Clinic, or Other Facility Administered Medication Ordered Dose Route Frequency Start Date End Date Status Albuterol Sulfate (Proventil) (2.5 MG/3ML) 0.083% inhalation solution 2.5 mgIndications:Dyspnea and respiratory abnormalities 2.5 mg NEBULIZER PRN 05/18/2022 05/18/2023 Active documented as of this encounter (statuses as of 12/28/2022) Active Problems Problem Noted Date Diagnosed Date Atherosclerosis of [place] co ronary artery of [place] heart with stable angina pectoris 12/27/2022 Atherosclerosis of coronary artery bypass graft of [place] heart with angina pectoris 10/13/2022 Encounter for [...] urinary tract symp toms 07/13/2001 Atherosclerosis of [place] co ronary artery of [place] heart without angina pectoris documented as of [...] CASE MANAGEMENT 07/22/200812/01 Overview: Kianna Lyn RN [phone] Examination following surgery 07/11/2008 12/31/2011 Difficult intubation 07/10/2008 021 Overview: Patient seen and examined in OR#1.Possible difficult intubation.TM distance about 5 cms.MP 3-4. Will plan FOB electively Due to current situation. EXAMINATION OF PARTICIPANT I N CLINICAL TRIAL-genomics 07/04/2008 05/30/2009 Overview: Renamed Per Clinical Trials Billing Project. Study Titile: Genomic Markers for Patients with Cardiovascular Disease Project #[id number] PI: Miriam Roque MD Please call [phone] with study related questions Chronic coronary artery [...] not at goal 07/04/200809/06 GENOMICS CARDIO RESEARCH OTHER*[id number] 07/04/2008 03/23/2016 Overview: Renamed Per Clinical Trials Billing Project. Study Titile: Genomic Markers for Patients with Cardiovascular Disease Project #[id number] PI: Miriam Roque MD Please call [phone] with study related questions Kidney disease, chronic, [...] mRNA, LNP-s, No Pre serve, 2-Dose Series (Vpon) 12/09/2020,05/09/2020,04/11/2020 COVID-19, LNP-s, No Preserve , Juan [...] Miscellaneous Notes * Telephone Encounter - Darrick Wilocx RPh - 12/28/2022 4:35 PM EST Novolog order resent with requested max daily units. Darrick Wilcox PharmD Clinical Pharmacist [facility] 12/28/2022 4:36 PM * Telephone Encounter - Niya Ortiz PHARM Tech - 12/28/2022 1:19 PM EST Caller's name: fabián Preferred call back number(OFFICE NUMBER FOR ): [phone] Reason for call: per pharmacy, they need a clarification on how much of the novolog pt is using/day. The last script read 120. Please resend. Thank you, Niya Ortiz Heat Treater Helper [facility] ([facility]) (Formerly Telepharmacy) 12/28/2022,1:19 PM documented in this encounter Plan of Treatment Upcoming Encounters Date Type Department Care Team (Late st Contact Info) Description 01/04/2023 6:10 PM EST Pharmacy Pharmacy, [address] [place] [address] [place] [address] 01/28/2023 2:00 PM EST Office Visit Nephrology [address] [place] [address] FernandomaVerito paiz PA-C [facility] [place] [address] 03/04/2023 10:30 AM EST Office Visit Gastroenterology [address] [place] [address] Marielena Hall CRNP [address] [place] [address] 03/28/2023 9:30 AM EST Office Visit Cardiology, [facility] [address] [place] [address] Nevaeh Linda PA-C [address] [place] [address] 03/29/2023 11:00 AM EST Office Visit Family Medicine [address] [place] [phone] Nicola Prado MD [address] [place] [address] [place] [address] 03/29/2023 12:30 PM EST Office Visit Cardiology [address] [place] [address] Blair Hannah PATheodore [address] [place] [address] 04/05/2023 9:45 AM EST Office Visit Urology, [facility] [address] [facility] [place] [address] Denny Armando MD [address] [place] [address] 05/20/2023 2:00 PM EDT Office Visit Rheumatology [address] [place] [phone] Jenni Perez CRNP [facility] [place] [address] 06/02/2023 11:00 AM EDT Nurse Only Ancillary [address] [place] [address] Nurse Neeraj [address] [place] [address] 10/12/2023 11:20 AM EDT Office Visit Sleep Disorders Ctr [facility] [address] [facility] [place] [phone] Eulalia Milligan DO [address] [place] [address] 10/25/2023 10:00 AM EDT Cardiac Studies Cardiology [address] [place] [address] [facility] [address] [facility] [place] [address] Scheduled Procedures Name Priority Associated Diagnoses Date/Ti [...] this encounter Medical Devices Implanted Type Area Strategic Communications Manager Device Identifier Shelf Expiration Date Model / Serial / Lot Lei Agrawal 6 [id number] - [id number] Implanted:Qty: 6 on 07/10/2008 at [facility] N/A: Chest DO NOT USE 08/14/2012 [id number] / / [id number] documented as of this encounter Visit Diagnoses Diagnosis Type 2 diabetes mellitus with hemoglobin A1c goal of less than 8.0% (HCC) documented in this encounter Advance Directives Documents on File Type Date Recorded Patient Flame Planer Expl anation Power of Marketing Clerk 06/26/2019 POWER OF A TTORNEY Advance Directives [...] the patient have Health Care Power of Marketing Clerk? No Code Status History Code Status Date [...] patient or by statute hierarchy) Care Teams Deck Hand Relationship Specialty Start Date End Date Nicola Prado MD [address] [place] [address] [place] [phone] PCP - General Family Medicine 06/19/21 documented as of this encounter
--- OUTSIDE RECORDS SUMMARY | 2023-02-03 20:17 | External Medical Summary ---
Author Name Unknown Address Unknown Organization K01:[facility]ORY [facility] - [place] [facility] [address] [facility] [address] Laboratory Report Ordering Provider Test Date Status KRISHJAMIEMELODY ZIEGLERTIMMY 12/27/2022 12:02:22 Marilyn l Observation Date Value Abnormality Reference (Units ) Status HbA1C 12/27/2022 12:02:22 7.7 Above high normal 4. 0-5.6 (%) Final The use of HbA1c to monitor glycemic status is based on normal hemoglobin and HbA composition. This test should not be used in patients with abnormal hemoglobin that affects the half life of the red blood cell or the in vivo glycation rates. Glucose, estimated average 12/27/2022 12:02:22 174 Above high normal <126 (mg/dL) Ren al Performing Location [facility] [address] [facility] [address] [address]
--- OUTSIDE RECORDS SUMMARY | 2023-02-03 20:17 | External Medical Summary ---
Author Name Unknown Address Unknown Organization K01:[facility] - [address] [place] [address] Laboratory Report Ordering Provider Test Date Status MARYSOL CRABTREE 12/27/2022 12:02:22 Final Observation Date Value Abnormality Reference (Units ) Status AST (Aspartate aminotransferase) 12/27/2022 12:02:22 18 10-50 (U/L) Final Performing Location LABORATORY [facility] - [address] [place] [address]
--- OUTSIDE RECORDS SUMMARY | 2023-02-03 20:17 | External Medical Summary | Summary of Care ---
Author Name Unknown Organization [facility] Address [address] [place] [address] Phone [phone] Care Team Providers Care Maintenance Millwright Name Role Phone Nicola Prado MD Primary Care Provide r Encounter Details Date Type Department Care Team ([facility] st Contact Info) Description 12/30/2022 Specialty Pharmacy [facility], [address], [address]th [place] [address] Medication, [facility] Specialty, [address] [address] Allergies Active Allergy Reactions Criticality Noted Date Comments Hydromorphone High 09/20/2021 Other reaction(s): Nausea Other reaction(s): Nausea 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/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 Other reaction(s): AMS Other reaction(s): AMS Prasugrel 04/02/2016 bleeding Prednisone High 09/20/2021 Other reaction(s): INCREASE BLOOD SUGAR Other reaction(s): INCREASE BLOOD SUGAR documented as of this encounter (statuses as of 12/30/2022) Medications Medication Sig Dispensed Refills Start Date [...] when flaring 454 g 1 12/14/2021 Active HipvanTouch UltraSoft LancetsIndications:T ype 2 diabetes mellitus with hemoglobin A1c goal of less than 8.0% ([facility]) Test blood sugar up to five times daily; dx E11.9 450 Each 3 12/17/2021 Active OneTouch Ultra In Vitro Strip (Glucose Blood)Indications:Ty pe 2 diabetes mellitus with hemoglobin A1c goal of less than 8.0% ([facility]) 3-4 times a day 450 [...] 12 Hour (Mucinex)Indications :COPD exacerbation ([facility]) Take 1 Tablet by mouth 2 times a day as needed for Congestion. Take with plenty of water. Do not cut, crush or chew 40 Tablet 0 10/13/2022 Active Tresiba FlexTouch 200 UNIT/ML Subcutaneous Solution Pen-injector (Insulin Degludec)Indications :Type 2 diabetes mellitus with hemoglobin A1c goal of less than 8.0% ([facility]) Inject 100 Units under the [...] ons:H/O psoriasis,Polyarticu lar psoriatic arthritis ([facility]) Inject 50 mg under the [...] exertion/activity ) DME: [facility]HP. 0 12/02/2022 Active BD TB Syringe 27G X 1/2" 1 ML (Tuberculin Syringe) To be used with Octreotide. 60 Each 0 12/06/2022 Active Easy Touch Pen [place] 31G X 8 MM (Insulin Pen Needle)Indications:T ype 2 diabetes mellitus with hemoglobin A1c goal of less than 8.0% ([facility]),Type 2 diabetes mellitus with stage 4 chronic kidney disease, unspecified whether [facility] insulin use (HCC) Use up to eight times daily with insulin. DXe11.9 600 Each 3 12/07/2022 Active Allopurinol 300 MG Oral Tablet (Zyloprim) Take 1 Tablet by mouth daily. 90 Tablet 1 12/17/2022 Active MyCube Voice Blood Glucose w/Device Kit Use as directed to test blood sugars up to four times daily DxE11.9 1 Kit 0 12/21/2022 Active MyCube No Coding Blood Gluc In Vitro Strip (Glucose Blood) Use as directed to test blood sugars up to four times daily DxE11.9 400 Strip 3 12/21/2022 Active NovoLOG FlexPen 100 UNIT/ML Subcutaneous Solution Pen-injector (insulin aspart)Indications:T ype 2 diabetes mellitus with hemoglobin A1c goal of less than 8.0% ([facility]) Inject 12 units with breakfast [...] as of this encounter (statuses as of 12/30/2022) Active Problems Problem Noted Date Diagnosed Date 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 Test performed by Dori GLACING MACHINE TENDER CPFT Body mass index (BMI) of 45. [...] TIA (transient ischemic attack) 02/04/2016 11/23/2017 Overview: [facility] Anemia of chronic renal failure 07/30/2015 [...] CASE MANAGEMENT 07/22/200812/01 Overview: Kianna Lyn RN [phone] Examination following surgery 07/11/2008 12/31/2011 Difficult intubation 07/10/2008 021 Overview: Patient seen and examined in OR#1.Possible difficult intubation.TM distance about 5 cms.MP 3-4. Will plan FOB electively Due to current situation. EXAMINATION OF PARTICIPANT I N CLINICAL TRIAL-genomics 07/04/2008 05/30/2009 Overview: Renamed Per Clinical Trials Billing Project. Study Titile: Genomic Markers for Patients with Cardiovascular Disease Project #[id number] PI: Miriam Roque MD Please call [phone] with study related questions Chronic coronary artery [...] not at goal 07/04/200809/06 GENOMICS CARDIO RESEARCH OTHER*[id number] 07/04/2008 03/23/2016 Overview: Renamed Per Clinical Trials Billing Project. Study Titile: Genomic Markers for Patients with Cardiovascular Disease Project #[id number] PI: Miriam Roque MD Please call [phone] with study related questions Kidney disease, chronic, [...] Iron deficiency anemia 12/30 BMI 40.0-44.9, adult 03/16/2 018 Overview: Per Obesity protocol #1 CKD (chronic kidney disease), stage IV 05/29/2020 DM type 2 causing CKD stage 4 04/08/2022 documented as of this encounter (statuses as of 12/30/2022) Immunizations Name Administration Dates Next Due COVID-19 mRNA, LNP-s, No Pre serve, 2-Dose Series ([employer]) 12/09/2020,05/09/2020,04/11/2020 COVID-19, LNP-s, No Preserve , Juan [...] money to buy more. Never true 05/29/19 Within the past 12 months, t he [...] as of this encounter Progress Notes * Jamal Peng, [facility] - 12/30/2022 4:44 PM EST Results for orders placed or performed in visit on 12/27/22 DIFFERENTIAL, AUTOMATED Result Value Ref Range WBC 11.90 (H) 4.00 - 10.80 K/uL Neutrophils % 73.7 40.0 - 75.0 % Lymphocytes % 12.3 (L) 18.0 - 42.0 % Monocytes % 4.1 1.0 - 11.0 % Eosinophils % 8.4 (H) 0.0 - 6.0 % Basophils % 0.7 0.0 - 2.0 % Immature Granulocytes % 0.8 0.0 - 2.0 % Absolute Neutrophils 8.78 (H) 1.80 - 7.70 K/uL Absolute Lymphocytes 1.46 1.00 - 4.80 K/ul Absolute Monocytes 0.49 0.00 - 1.10 K/uL Absolute Eosinophils 1.00 (H) 0.00 - 0.70 K/uL Absolute Basophils 0.08 0.00 - 0.20 K/uL Absolute Immature Granulocytes 0.09 0.00 - 0.20 K/uL CBC Result Value Ref Range WBC 11.90 (H) 4.00 - 10.80 K/uL RBC 3.97 4.50 - 5.25 M/uL HGB 12.1 (L) 14.0 - 16.8 g/dL HCT 39.5 (L) 40.0 - 48.4 % MCV 99.5 82.0 - 99.5 fL MCH 30.5 27.0 - 34.0 pg MCHC 30.6 32.0 - 36.0 g/dL RDW 15.6 11.5 - 15.5 % PLT 228 140 - 400 K/uL MPV 10.3 6.6 - 11.1 fL nRBCs 0 <=0 /100 WBCs *Note: Due to a large number of results and/or encounters for the requested time period, some results have not been displayed. A complete set of results can be found in Results Review. Results for orders placed or performed in visit on 11/03/22 COMPREHENSIVE METABOLIC PANEL Result Value Ref Range BUN 24 (H) 6 - 20 mg/dL Creatinine 2.0 (H) 0.6 - 1.2 mg/dL Estimated Glomerular Filtration Rate 33 (L) >=60 mL/min Sodium 137 135 - 146 mmol/L Potassium 3.8 3.5 - 5.1 mmol/L Chloride 97 (L) 98 - 107 mmol/L CO2 27 22 - 32 mmol/L Anion Gap 13 7 - 15 mmol/L Glucose 63 (L) 70 - 120 mg/dL Albumin 3.7 (L) 3.8 - 5.0 g/dL AST 23 10 - 50 U/L Alkaline Phosphatase 145 (H) 35 - 130 U/L Bilirubin, Total 0.5 <=1.2 mg/dL Calcium 8.7 8.4 - 10.2 mg/dL Protein 6.6 6.0 - 8.3 g/dL ALT 29 10 - 50 U/L Jamal Peng, PharmD Specialty Clinical Pharmacist [facility] 12/30/2022, 4:45 PM * Sushma Randall CPhT - 12/30/2022 4:30 PM EST Prescribed medication: Medication: octretide/needles Shipment date: 01/04 Delivery method: Specialty Mail Location Medication Delivered too? Prescription Address: [address] [place] [phone] Sushma Randall CPhT [facility] 12/30/2022,4:30 PM documented in this encounter Plan of Treatment Upcoming Encounters Date Type Department Care Team (Late st Contact Info) Description 01/04/2023 6:10 PM EST Pharmacy Pharmacy, [address] [place] [address] [place] [address] 01/28/2023 2:00 PM EST Office Visit Nephrology [address] [place] [address] Verito Jovel PA-C [address] [facility] [place] [address] 03/04/2023 10:30 AM EST Office Visit Gastroenterology [address] [place] [address] Marielena Hall CRNP [address] [place] [address] 03/28/2023 9:30 AM EST Office Visit Cardiology, [facility] [address] [place] [address] Nevaeh Linda PA-C [address] [place] [address] [place] [address] 03/29/2023 11:00 AM EST Office Visit Family Medicine [address] [place] [phone] Nicola Prado MD [address] [place] [address] [place] [address] 03/29/2023 12:30 PM EST Office Visit Cardiology [address] [place] [address] Blair Hannah PATheodore [address] [place] [address] 04/05/2023 9:45 AM EST Office Visit Urology, [facility] [address] [place] [address] Denny Armando MD [address] [place] [address] [place] [address] 05/20/2023 2:00 PM EDT Office Visit Rheumatology [address] [place] [phone] Jenni Perez CRNP [address] [place] [address] [place] [address] 06/02/2023 11:00 AM EDT Nurse Only Ancillary [address] [place] [address] Nurse Neeraj [address] [place] [address] 10/12/2023 11:20 AM EDT Office [facility] [place] [phone] Eulalia Milligan DO [address] [place] [address] 10/25/2023 10:00 AM EDT Cardiac Studies Cardiology [address] [place] [address] [facility] [place] [address] Scheduled Procedures Name Priority Associated Diagnoses Date/Ti [...] this encounter Medical Devices Implanted Type Area Paving Contractor Device Identifier Shelf Expiration Date Model / Serial / Lot Lei Agrawal 6 [id number] - [id number] Implanted:Qty: 6 on 07/10/2008 at [place] [facility] N/A: Chest DO NOT USE 08/14/2012 [id number] / / [id number] documented as of this encounter Advance Directives Documents on File Type Date Recorded Patient Project Lead Expl anation Power of Government Documents Librarian 06/26/2019 POWER OF A TTORNEY Advance Directives [...] the patient have Health Care Power of Government Documents Librarian? No Code Status History Code Status Date [...] patient or by statute hierarchy) Care Teams Maintenance Millwright Relationship Specialty Start Date End Date Nicola Prado MD [address] [place] [address] [place] [phone] PCP - General Family Medicine 06/19/21 documented as of this encounter
--- OUTSIDE RECORDS SUMMARY | 2023-02-03 20:17 | External Medical Summary | Summary of Care ---
Author Name Unknown Organization [facility] Address [address] [place] [address] Phone [phone] Care Team Providers Care Daycare Teacher Name Role Phone Nicola Prado MD Primary Care Provide r Encounter Details Date Type Department Care Team ([facility] st Contact Info) Description 12/30/2022 Specialty Pharmacy [facility], [address] [place] [address] Medication, [facility] Specialty, [address] [address] Allergies Active Allergy Reactions Criticality Noted Date [...] when flaring 454 g 1 12/14/2021 Active TimePointsTouch UltraSoft LancetsIndications:T ype 2 diabetes mellitus with hemoglobin A1c goal of less than 8.0% ([facility]) Test blood sugar up to five times daily; dx E11.9 450 Each 3 12/17/2021 Active OneTouch Ultra In Vitro Strip (Glucose Blood)Indications:Ty pe 2 diabetes mellitus with hemoglobin A1c goal of less than 8.0% ([facility]) 3-4 times a day 450 [...] hemoglobin A1c goal of less than 8.0% ([facility]),Type 2 diabetes mellitus with stage 4 chronic kidney disease, with long-term current use of insulin ([facility]) Inject 1.8 mg under [...] Extended Release 12 Hour (Mucinex)Indications :COPD exacerbation ([facility]) Take 1 Tablet by mouth 2 times a day as needed for Congestion. Take with plenty of water. Do not cut, crush or chew 40 Tablet 0 10/13/2022 Active Tresiba FlexTouch 200 UNIT/ML Subcutaneous Solution Pen-injector (Insulin Degludec)Indications :Type 2 diabetes mellitus with hemoglobin A1c goal of less than 8.0% ([facility]) Inject 100 Units under [...] Auto-injector (Etanercept)Indicati ons:H/O psoriasis,Polyarticu lar psoriatic arthritis ([facility]) Inject 50 mg under [...] Each 0 12/06/2022 Active Easy Touch Pen [place] 31G X 8 MM (Insulin Pen Needle)Indications:T ype 2 diabetes mellitus with hemoglobin A1c goal of less than 8.0% ([facility]),Type 2 diabetes mellitus with stage 4 chronic kidney disease, unspecified whether retirement insulin use (HCC) Use up to eight times daily with insulin. DXe11.9 600 Each 3 12/07/2022 Active Allopurinol 300 MG Oral Tablet (Zyloprim) Take 1 Tablet by mouth daily. 90 Tablet 1 12/17/2022 Active Intersoft Eurasia Voice Blood Glucose w/Device Kit Use as directed to test blood sugars up to four times daily DxE11.9 1 Kit 0 12/21/2022 Active Intersoft [place] No Coding Blood Gluc In Vitro Strip (Glucose Blood) Use as directed to test blood sugars up to four times daily DxE11.9 400 Strip 3 12/21/2022 Active NovoLOG FlexPen 100 UNIT/ML Subcutaneous Solution Pen-injector (insulin aspart)Indications:T ype 2 diabetes mellitus with hemoglobin A1c goal of less than 8.0% ([facility]) Inject 12 units with [...] Problem Noted Date Diagnosed Date Atherosclerosis of shawnee co ronary artery of shawnee heart with stable angina pectoris 12/27/2022 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 Test performed by Dori CAMPUS RECRUITING INTERN CPFT Body mass index (BMI) of 45. [...] TIA (transient ischemic attack) 02/04/2016 11/23/2017 Overview: [facility] Anemia of chronic renal failure 07/30/2015 [...] CASE MANAGEMENT 07/22/200812/01 Overview: Kianna Lyn RN [phone] Examination following surgery 07/11/2008 12/31/2011 Difficult intubation 07/10/2008 021 Overview: Patient seen and examined in OR#1.Possible difficult intubation.TM distance about 5 cms.MP 3-4. Will plan FOB electively Due to current situation. EXAMINATION OF PARTICIPANT I N CLINICAL TRIAL-genomics 07/04/2008 05/30/2009 Overview: Renamed Per Clinical Trials Billing Project. Study Titile: Genomic Markers for Patients with Cardiovascular Disease Project #[id number] PI: Miriam Roque MD Please call [phone] with study related questions Chronic coronary artery [...] not at goal 07/04/200809/06 GENOMICS CARDIO RESEARCH OTHER*[id number] 07/04/2008 03/23/2016 Overview: Renamed Per Clinical Trials Billing Project. Study Titile: Genomic Markers for Patients with Cardiovascular Disease Project #[id number] PI: Miriam Roque MD Please call [phone] with study related questions Kidney disease, chronic, [...] mRNA, LNP-s, No Pre serve, 2-Dose Series (Indelsul) 12/09/2020,05/09/2020,04/11/2020 COVID-19, LNP-s, No Preserve , Juan [...] this encounter Progress Notes * Jamal Peng, [facility] - 12/30/2022 4:44 PM EST Results for [...] U/L Jamal Peng, PharmD Specialty Clinical Pharmacist [facility] 12/30/2022, 4:45 PM * Sushma Randall CPhT - 12/30/2022 4:30 PM EST Prescribed medication: Medication: octretide/needles Shipment date: 01/04 Delivery method: Specialty Mail Location Medication Delivered too? Prescription Address: [address] [place] [phone] Sushma Randall CPhT [facility] 12/30/2022,4:30 PM documented in this encounter Plan of Treatment Upcoming Encounters Date Type Department Care Team (Late st Contact Info) Description 01/04/2023 6:10 PM EST Pharmacy Pharmacy, [address] [place] [address] [place] [address] 01/28/2023 2:00 PM EST Office Visit Nephrology [address] [place] [address] Verito Jovel PA-C [address] [facility] [place] [address] 03/04/2023 10:30 AM EST Office Visit Gastroenterology [address] [place] [address] Marielena Hall CRNP [address] [place] [address] 03/28/2023 9:30 AM EST Office Visit Cardiology, [facility] [address] [place] [address] Nevaeh Linda PA-C [address] [place] [address] [place] [address] 03/29/2023 11:00 AM EST Office Visit Family Medicine [address] [place] [phone] Nicola Prado MD [address] [place] [address] [place] [address] 03/29/2023 12:30 PM EST Office Visit Cardiology [address] [place] [address] Blair Hannah PATheodore [address] [place] [address] 04/05/2023 9:45 AM EST Office Visit Urology, [facility] [address] [place] [address] Denny Armando MD [address] [place] [address] [place] [address] 05/20/2023 2:00 PM EDT Office Visit Rheumatology [address] [place] [phone] Jenni Perez CRNP [address] [place] [address] [place] [address] 06/02/2023 11:00 AM EDT Nurse Only Ancillary [address] [place] [address] Nurse Neeraj [address] [place] [address] 10/12/2023 11:20 AM EDT Office [facility] [place] [phone] Eulalia Milligan DO [address] [place] [address] 10/25/2023 10:00 AM EDT Cardiac Studies Cardiology [address] [place] [address] [facility] [place] [address] Scheduled Procedures Name Priority Associated Diagnoses Date/Ti [...] this encounter Medical Devices Implanted Type Area Child Care Assistant Device Identifier Shelf Expiration Date Model / Serial / Lot Lei Agrawal 6 [id number] - [id number] Implanted:Qty: 6 on 07/10/2008 at [place] [facility] [place]/A: Chest DO NOT USE 08/14/2012 [id number] / / [id number] documented as of this encounter Advance Directives Documents on File Type Date Recorded Patient Cna Per Diem Expl anation Power of Forging Press Operator 06/26/2019 POWER OF A TTORNEY Advance [...] the patient have Health Care Power of Forging Press Operator? No Code Status History Code Status Date Activated Date Inactivated Comments Full Code 07/10/2008 6:37 PM 07/21/2008 4:52 PM This o rder reflects the patients wishes and were consensually agreed upon. Full Code 07/04/2008 2:18 PM 07/10/2008 6:30 PM Healthcare Agents on File Name Relationship Healthcare Agent Relationshi p Communication Shaen Beltran Adult Child Health Care Repr esentative (appointed verbally by patient or by statute hierarchy) Care Teams Daycare Teacher Relationship Specialty Start Date End Date Nicola Prado MD [address] [place] [address] [place] [phone] PCP - General Family Medicine 06/19/21 documented as of this encounter
--- OUTSIDE RECORDS SUMMARY | 2023-02-03 20:17 | External Medical Summary ---
Author Name Unknown Address Unknown Organization K01:LABORATORY [facility] - [address] [place] [address] Laboratory Report Ordering Provider Test Date Status MARYSOL CRABTREE 12/27/2022 12:02:22 Final Observation Date Value Abnormality Reference (Units ) Status ALT (Alanine aminotransferase) 12/27/2022 12:02:22 19 10-50 (U/L) Final Performing Location LAB[facility]ATORY [facility] - [address] [place] [address]
--- OUTSIDE RECORDS SUMMARY | 2023-02-03 20:17 | External Medical Summary | Summary of Care ---
Author Name Unknown Organization [facility] Address [address] [place] [address] Phone [phone] Care Team Providers Care Restaurant Manager Name Role Phone Nicola Prado MD Primary Care Provide r Reason for Visit * Reason Comments Re-Check Encounter Details Date Type Department Care Team (Late st Contact Info) Description 12/27/2022 11:20 AM EST Office Visit Family Medicine [address] [phone] Nicola Prado MD [address] [place] [address] [place] [phone] Type 2 diabetes mellitus with hemoglobin A1c goal of less than 8.0% ([facility])*; Atherosclerosis of coronary artery bypass graft of seminole heart with angina pectoris ([facility]) Allergies Active Allergy Reactions Criticality Noted Date Comments Hydromorphone High 09/20/2021 Other reaction(s): Nausea Other reaction(s): Nausea 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/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 Other reaction(s): AMS Other reaction(s): AMS Prasugrel 04/02/2016 bleeding Prednisone High 09/20/2021 Other reaction(s): INCREASE BLOOD SUGAR Other reaction(s): INCREASE BLOOD SUGAR documented as of this encounter (statuses as of 12/27/2022) Medications Medication Sig Dispensed Refills Start Date [...] 454 g 1 12/14/2021 Active OneTouch UltraSoft LancetsIndications:T ype 2 diabetes [...] for 90 day supply. 0 01/05/2022 Active NovoLOG FlexPen 100 UNIT/ML Subcutaneous Solution Pen-injector (insulin aspart)Indications:T ype 2 diabetes mellitus with hemoglobin A1c goal of less than 8.0% ([facility]) 12 units with breakfast and supper PLUS correction factor of 1:25 if over 140 mg/dL 110 mL 3 03/23/2022 Active Tamsulosin HCl 0.4 MG Oral Capsule [...] (Etanercept)Indicati ons:H/O psoriasis,Polyarticu lar psoriatic arthritis ([facility]) Inject 50 mg under the skin once a week. 4 mL 1 11/17/2022 Active Albuterol Sulfate HFA 108 (90 Base) MCG/ACT Inhalation Aerosol SolutionIndications: COPD exacerbation ([facility]),Chronic cough Inhale 2 Puffs by [...] Each 0 12/06/2022 Active Easy Touch Pen [place] 31G X 8 MM (Insulin Pen Needle)Indications:T ype 2 diabetes mellitus with hemoglobin A1c goal of less than 8.0% ([facility]),Type 2 diabetes mellitus with stage 4 chronic kidney disease, unspecified whether intermediate project manager insulin use ([facility]) Use up to eight times daily with insulin. DXe11.9 600 Each 3 12/07/2022 Active Allopurinol 300 MG Oral Tablet (Zyloprim) Take 1 Tablet by mouth daily. 90 Tablet 1 12/17/2022 Active Prodigy Voice Blood Glucose w/Device Kit Use as directed to test blood sugars up to four times daily DxE11.9 1 Kit 0 12/21/2022 Active Prodigy No Coding Blood Gluc In Vitro Strip (Glucose Blood) Use as directed to test blood sugars up to four times daily DxE11.9 400 Strip 3 12/21/2022 Active Hospital, Clinic, or Other Facility Administered Medication Ordered Dose Route Frequency Start Date End Date Status Albuterol Sulfate (Proventil) (2.5 MG/3ML) 0.083% inhalation solution 2.5 mgIndications:Dyspnea and respiratory abnormalities 2.5 mg NEBULIZER PRN 05/18/2022 05/18/2023 Active documented as of this encounter (statuses as of 12/27/2022) Active Problems Problem Noted Date Diagnosed Date Atherosclerosis of seminole co ronary artery of seminole heart with stable angina pectoris 12/27/2022 Atherosclerosis of coronary artery bypass graft of seminole heart with angina pectoris 10/13/2022 Encounter for [...] urinary tract symp toms 07/13/2001 Atherosclerosis of seminole co ronary artery of seminole heart without angina pectoris documented as of this encounter (statuses as of 12/27/2022) Resolved Problems Problem Noted Date Diagnosed Date [...] use aero chamber. Test performed by Dori KETTLE WORKER CPFT Body mass index (BMI) of 45. [...] TIA (transient ischemic attack) 02/04/2016 11/23/2017 Overview: [facility] Anemia of chronic renal failure 07/30/2015 [...] CASE MANAGEMENT 07/22/200812/01 Overview: Kianna Lyn, RN [phone] Examination following surgery 07/11/2008 12/31/2011 Difficult intubation 07/10/2008 021 Overview: Patient seen and examined in OR#1.Possible difficult intubation.TM distance about 5 cms.MP 3-4. Will plan FOB electively Due to current situation. EXAMINATION OF PARTICIPANT I N CLINICAL TRIAL-genomics 07/04/2008 05/30/2009 Overview: Renamed Per Clinical Trials Billing Project. Study Titile: Genomic Markers for Patients with Cardiovascular Disease Project #[id number] PI: Fabienne Martinez MD Please call [phone] with study related questions Chronic coronary artery [...] not at goal 07/04/200809/06 GENOMICS CARDIO RESEARCH OTHER*[id number] 07/04/2008 03/23/2016 Overview: Renamed Per Clinical Trials Billing Project. Study Titile: Genomic Markers for Patients with Cardiovascular Disease Project #[id number] PI: Fabienne Martinez MD Please call [phone] with study related questions Kidney disease, chronic, [...] as of this encounter (statuses as of 12/27/2022) Immunizations Name Administration Dates Next Due COVID-19 [...] Sign Reading Time Taken Comments Blood Pressure 138/70 12/27/2022 11:10 AM EST Pulse 88 12/27/2022 11:10 AM EST Temperature 36.7 C (98 F) 12/27/2022 11:10 AM EST Respiratory Rate - - Oxygen Saturation 93% 12/27/2022 11:10 AM EST Inhaled Oxygen Concentration - - Weight 114.8 kg (253 lb) 12/27/2022 11:10 AM EST Height - - Body Mass Index 43.43 12/02/2022 10:11 AM EDT documented in this encounter Progress Notes * Nicola Prado MD - 12/27/2022 11:27 AM EST Subjective: HPI: Maurisio Beltrna is a 82 year old male with hx of CAD s/p CABG and Stent, Chronic respiratory failure on home O2 (2L at night), CKD III-IV, COPD, KATHE, DMII, HLD, HTN, Gout, Stubbs's esophagus, Iron defanemia, DJD, psoriatic arthritis ( on Enbrel), 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 (06/09/20), COVID infection on 02/2021, Basal cell carcinoma seen s/p removal, Hx of prostate Ca s/p brachytherapy seen for DMII: - Victoza 1.8mg daily, Tresiba 110 units AM, Novolog as needed but pt has been taking TID 20-30 units at a time - fasting glucose usually 120-130s ----but gets intermittent 200s -pt had slight skin reaction with CGM adhesive - pt is worried abt having low glucose at night - denied any recent hypoglycemic episodes - pt is legally blind and gets assistance from his grandson Recently had cardiac cath - stents are patent - recommended medical management Patient Active Problem List Diagnosis Code BPH without obstruction/lower urinary tract symptoms N40.0 Psoriasis L40.9 Generalized osteoarthritis M15.9 Iron deficiency anemia due to chronic blood loss D50.0 Atherosclerosis of seminole coronary artery of seminole heart without angina pectoris I25.10 Aortocoronary bypass status Z95.1 Type 2 diabetes mellitus with hemoglobin A1c goal of less than 8.0% ([facility]) E11.9 Dyslipidemia E78.5 Vitamin D deficiency E55.9 REENA-inhibitor cough R05.8, T46.4X5A Obstructive sleep apnea of adult G47.33 Psoriatic arthropathy ([facility]) L40.50 S/P primary angioplasty with coronary stent Z95.5 Stubbs's esophagus with dysplasia K22.719 Pulmonary hypertension ([facility]) I27.20 Chronic diastolic heart failure ([facility]) I50.32 Gout M10.9 COPD, group D, by GOLD 2017 classification ([facility]) J44.9 Chronic respiratory failure with hypoxia ([facility]) J96.11 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[facility]) L40.59 Morbid obesity with BMI of 40.0-44.9, adult ([facility]) E66.01, Z68.41 Vitamin B12 deficiency E53.8 Atrioventricular block, Mobitz [...] of major depressive disorder without prior episode ([facility]) F32.0 Type 2 diabetes mellitus with stage 4 chronic kidney disease, with long-term current use of insulin([facility]) E11.22, N18.4, Z79.4 CHB (complete heart block) ([facility]) I44.2 Prostate cancer ([facility]) C61 Stage 3b chronic kidney disease ([facility]) N18.32 Plaque psoriasis L40.0 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 ([facility]) I13.0, I50.32, N18.4 Atherosclerosis of coronary artery bypass graft of seminole heart with angina pectoris ([facility]) I25.709 Encounter for long-term (current) insulin use ([facility]) Z79.4 Current Outpatient Medications Medication Sig Dispense Refill [...] resolved, then when flaring 454 g 1 OneTouch UltraSoft Lancets Test blood sugar up to five times daily; dx E11.9 450 Each 3 OneTouch Ultra In Vitro Strip (Glucose Blood) 3-4 times a day 450 Strip 3 Xiidra 5 % Ophthalmic Solution instill 1 drop by ophthalmic route 2 times every day into both eyes.OK for 90 day supply. NovoLOG FlexPen 100 UNIT/ML Subcutaneous Solution Pen-injector (insulin aspart) 12 units with breakfast and supper PLUS correction factor of 1:25 if over 140 mg/dL 110 mL 3 Tamsulosin HCl 0.4 MG Oral Capsule (Flomax) [...] and 3 LPM with exertion/activity) DME: [facility]. BD TB Syringe 27G X 1/2" 1 ML (Tuberculin Syringe) To be used with Octreotide. 60 Each 0 Easy Touch Pen [place] 31G X 8 MM (Insulin Pen Needle) Use up to eight times daily with insulin. DXe11.9 600 Each 3 Allopurinol 300 MG Oral Tablet (Zyloprim) Take 1 Tablet by mouth daily. 90 Tablet 1 Prodigy Voice Blood Glucose w/Device Kit Use as directed to test blood sugars up to four times daily DxE11.9 1 Kit 0 Prodigy No Coding Blood Gluc In Vitro Strip (Glucose Blood) Use as directed to test blood sugars upto four times daily DxE11.9 400 Strip 3 Current Facility-Administered Medications Medication Dose Route Frequency Provider Last Rate Last Admin Albuterol Sulfate (Proventil) (2.5 MG/3ML) 0.083% inhalation solution 2.5 mg 2.5 mg Nebulizer PRN Al Mccrary PA-C Past Medical History: Diagnosis Date (HFpEF) heart failure with preserved ejection fraction (HCC) Acute blood loss anemia 10/29/2020 [facility] transfused Acute exacerbation of chronic obstructive pulmonary disease (COPD) (HCC) 05/11/2018 [facility] Altered mental status 03/31/2017 likely the baclofen Atrioventricular block, Mobitz type 1, Asya 06/09/2020 barretts stomach gastritis, stubbs's esophagus, recommend f/u in 2 years Benign neoplasm of colon 09/27/2006 adenomatous & hyperplastic polyp--repeat one year Benign neoplasm of colon 10/10/2007 hyperplastic/repeat colnoscopy in 2 yrs Benign neoplasm of colon 09/24/2009 diverticulosis, 10 polyps, t path sows hyperplastic tissue repeat in 2 years Benign neoplasm of colon 11/06/2010 Hyperplastic polyps BMI 40.0-44.9, adult ([facility]) BPH without obstruction/lower urinary tract symptoms Chest pain Chest pain radiating to arm 07/22/2015 left chest pain radiating to arm, probably left rotator cuff CKD (chronic kidney disease), stage IV ([facility]) GFR 26.5 COPD, mild ([facility]) 08/21/2010 COPD, moderate ([facility]) 10/04/2014 PFT Coronary atherosclerosis of seminole coronary artery 07/04/2008 Admitted [facility] COVID-19 02/24/2021 Dermatophytosis of scalp or bello DM type 2 causing CKD stage 4 ([facility]) DM type 2, goal A1c below 7 [...] disease, chronic, stage III (GFR 30-59 ml/min) ([facility]) 06/2008 Malignant neoplasm of prostate ([facility]) Prostate Mixed dyslipidemia Morbid obesity with BMI of 45.0-49.9, adult (HCC) Other psoriasis S/P primary angioplasty with coronary stent 09/05/2013 drug eluting stents to 60% RCA, other grafts open except SVG to PDA is occluded Sleep apnea CPAP Sleep apnea, obstructive Symptomatic anemia 10/29/2020 Admitted [facility] and transfused TIA (transient ischemic attack) 02/04/2016 [facility] Tubular adenoma 10/31/2020 Past Surgical History: Procedure Laterality Date BRACHYTHERAPY SEED,IRIDIUM 192 01/2004 BYPASS GRAFT ANGIOGRAPHY W/LEFT HEART CATH 09/05/2013 BYPASS GRAFT ANGIOGRAPHY W/LEFT HEART CATH performed by Aleisha Abraham MD at [facility] BYPASS GRAFT ANGIOGRAPHY W/RIGHT+LEFT CATH Right 08/25/2016 BYPASS GRAFT ANGIOGRAPHY W/RIGHT+LEFT CATH performed by Eliseo José MD at [facility] CABG, ARTERIAL, SINGLE 07/10/2008 CORONARY ARTERY BYPASS GRAFT USING ARTERY 1 GRAFT performed by BUDDY VILCHIS at OR [facility] CABG, ARTERY-VEIN, TWO 07/10/2008 CORONARY ARTERY BYPASS GRAFT ARTERIAL AND VENOUS 2 GRAFTS performed by BUDDY VILCHIS at OR [facility] CARDIAC CATH-CARDIOLOGY ONLY 09/05/2013 60% RCA, drug [...] 06/25/2015 adenomatous & hyperplastic polyps, repeat 3 yrs/[facility] COLONOSCOPY, DIAGNOSTIC (RECTUM) 04/20/2018 hyperplastic polyp, repeat 5 yrs/[facility] COLONOSCOPY, DIAGNOSTIC (RECTUM) 10/31/2020 adenomatous polyp, diverticulosis, repeat 3 yrs / [facility] COLONOSCOPY, REMOVE LESION, W/SNARE 06/25/2015 4 mm polyp ascending, 2 polyps in rectum, diverticulosis COMBINED RT & LEFT HEART CATHETERS 07/04/2008 RIGHT AND RETROGRADE LEFT HEART CATH performed by CANDELARIO VINES at [facility] COMBINED RT & LEFT HEART CATHETERS 01/01/2010 RIGHT AND RETROGRADE LEFT HEART CATH performed by KAREL OBANDO at [facility] CORONARY ANGIOGRAPHY W/LEFT HEART CATH Left 12/02/2022 CORONARY ANGIOGRAPHY W/LEFT HEART CATH performed by Carrie Nation MD at [facility] CT HEAD/BRAIN WO CONTRAST N/A 02/04/2016 patchy [...] by Jose Eduardo Valadez MD at [facility]OSCOPY [facility] EGD, FLEXIBLE, DIAGNOSTIC 06/25/2015 esophagitis/[facility] EGD, FLEXIBLE, DIAGNOSTIC N/A 11/14/2020 two large inlet patches/patchey antral gastritis/biopsies show Barretts/EGD EGD, FLEXIBLE, DIAGNOSTIC 05/22/2021 Barretts, repeat 3 yrs / [facility] EGD, FLEXIBLE, DIAGNOSTIC 06/26/2021 normal / INPT [facility] EGD, FLEXIBLE, DIAGNOSTIC 09/09/2021 mildly inflammed mucosa on bx / [facility] EGD, FLEXIBLE, DIAGNOSTIC 10/30/2020 single bleeding angiodysplastic lesion in the jejunum / INPT [facility] EGD, FLEXIBLE, W/BIOPSY 11/14/2006 mild chronic inflammation EGD, FLEXIBLE, W/BIOPSY 04/25/2008 stomach gastritis, stubbs's esophagus, recommend f/u in 2 years EGD, FLEXIBLE, W/BIOPSY 06/25/2015 stomach and duodenum normal ENDO,VIDEO ASSIST HARVEST DILLON 07/10/2008 ENDOSCOPY VIDEO ASSISTED HARVEST VEIN performed by BUDDY VLICHIS at OR [facility] FLUORO SWALLOWING FUNCTION W VIDEO CINE 11/14/2017 moderate esophageal dysmotility, no mass or stricture FLUORO UPPER GI W AIR WO KUB 06/03/2014 normal HC VENOUS DUPLEX COMPLETE BILATERAL LOWER EXTREMITY Bilateral 11/14/2017 no DVT INSERT HEART ELECTRODE, DUAL CHAMBR 06/11/2020 [facility] INSERT IA PERCUT DEVICE 07/10/2008 INSERT INTRA AORTIC BALLOON ASSIST DEVICE PERCUTANEOUS performed by FABIENNE MARTINEZ at [facility] LEFT HEART CATHETERIZATION 07/04/2008 80% mid left [...] performed by Annelise Diaz MD at OR [facility] SMALL BOWEL ENDOSCOPY W/BX 07/03/2010 await [...] 11/07/2020 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 Review of patient's allergies indicates: Allergen Reactions Hydromorphone Other reaction(s): Nausea Other reaction(s): Nausea Methylprednisolone Steroid psychosis Other reaction(s): AMS Other reaction(s): AMS Prednisone Other reaction(s): INCREASE BLOOD SUGAR Other reaction(s): INCREASE BLOOD SUGAR Prasugrel bleeding Family History Problem Relation Age of Onset Asthma Brother Cancer Grandfather (Maternal) stomach Lung Disorder Father Cancer Aunt (Unspecified) Cancer Uncle (Unspecified) Heart Disorder Brother 46 [place] age 46 Heart Disorder Mother mi age 82 Diabetes Son 35 IDDM Mental Disorder Mother Received electric shcok in the [place] Blood Disorder Son "Thick Blood" Arthritis Son Social History Tobacco Use Smoking status: Former Packs/day: 2.00 Years: 10.00 Additional pack years: 0.00 Total pack years: 20.00 Types: Cigarettes Quit date: 01/27/1998 Years since quittin.9 Smokeless tobacco: Never Substance Use Topics Alcohol use: No Vaping/E-Cigarette Use Vaping/E-Cigarette Use Never User Vaping/E-Cigarette Substances Vaping/E-Cigarette Devices ROS: -Per HPI OBJECTIVE: BP 138/70 | Pulse 88 | Temp 36.7 C (98 F) (Tympanic) | Wt 114.8 kg (253 lb) | SpO2 93% | BMI 43.43 kg/m | BSA 2.28 m PHYSICAL EXAM: Vitals are reviewed General:. NAD, well developed HEENT:. Normal Conjunctiva, EOMI MSK:. No LE edema, Normal gait Psych:. AAOx3, normal affect ASSESSMENT/PLAN: Pt is willing to try CGM again - due to high units of insulin pt would benefit from CGM - A1C today - advised the pt to call the clinic if he experience any hypo or hyperglycemia - sched to see [facility] Type 2 diabetes mellitus with hemoglobin A1c goal of less than 8.0% ([facility]) (Primary) - HEMOGLOBIN A1C Atherosclerosis of coronary artery bypass graft of seminole heart with angina pectoris ([facility]) Follow Up: Return in about 3 months (around 03/29/2023). Nicola Prado MD Family medicine, [address] [phone] documented in this encounter Nursing Notes * Perla Carter LPN - 12/27/2022 11:10 AM EST 6 month recheck Has a few concerns documented in this encounter Plan of Treatment Upcoming Encounters Date Type Department Care Team (Late st Contact Info) Description 01/04/2023 6:10 PM EST Pharmacy Pharmacy, [address] [place] [address] [place] [address] 01/28/2023 2:00 PM EST Office Visit Nephrology [address] [place] [address] Verito Jovel PA-Elbert [address] [place] [address] [place] [address] 03/04/2023 10:30 AM EST Office Visit Gastroenterology [address] [place] [address] Marielena Hall CRNP [address] [facility] [place] [address] 03/28/2023 9:30 AM EST Office Visit Cardiology, [facility] [place] [address] Nevaeh Linda PA-C [address] [place] [address] [place] [phone] 03/29/2023 11:00 AM EST Office Visit Family Medicine [address] [place] [phone] Nicola Prado MD [address] [place] [address] [place] [phone] 03/29/2023 12:30 PM EST Office Visit Cardiology [address] [place] [address] Blair Hannah PATheodore [address] [facility] [place] [address] 04/05/2023 9:45 AM EST Office Visit Urology, [facility] [place] [address] Denny Armando MD [address] [place] [address] [place] [phone] 05/20/2023 2:00 PM EDT Office Visit Rheumatology [address] [place] [phone] Jenni Perez CRNP [address] [place] [address] [place] [phone] 06/02/2023 11:00 AM EDT Nurse Only Ancillary [address] [place] [address] Neeraj Nurse [address] [place] [address] 10/12/2023 11:20 AM EDT Office Visit Sleep Disorders [facility] [address] [place] [phone] Eulalia Milligan DO [address] [place] [phone] 10/25/2023 10:00 AM EDT Cardiac Studies Cardiology [address] [place] [address] [facility] [address] [place] [address] Pending Results Name Type Priority Associated Diagnoses Date /Time HEMOGLOBIN A1C Lab Routine Type 2 diabetes mellitus with hemoglobin A1c goal of less than 8.0% ([facility]) 12/27/2022 12:02 PM EST Scheduled Procedures Name Priority Associated Diagnoses Date/Ti mo ESOPHAGOGASTRODUODENOSCOPY ( EGD), FLEXIBLE, TRANSORAL, DIAGNOSTIC Recall Stubbs esophagus COLONOSCOPY FLEXIBLE PROXIMAL DIAGNOSTIC Recall History of colon polyps Health Maintenance Due Date Last Done Comments Alpha-1 Antitrypsin 1960 Zoster Vaccines (1 of 2) 1961 Hepatitis B (1 of 3 - Risk 3-dose series) 2002 Stubbs's Esophagus Surveilance 06/24/2018 06/25/2015, 12/05/2013 Diabetic Eye Exam 09/18/2022 09/18/2021, , 06/03/2020, Additional history exists COVID-19 Vaccine ( season) 2022 06/04/2021, 12/09/2020, 05/09/2020, Additional history exists HbA1c 04/08/2023 10/06/2022, 03/0 10/2022, 10/22/2021, Additional history exists Albumin/Creatinine Ratio 04/23/2023 023, 03/24/2022, 06/19/2021, Additional history exists Depression Screening 05/29/2023 05/28/2022 Diabetic Foot Exam 05/29/2023 05/28/2022, 0 04/24/2020, 12/20/2018, Additional history exists GFR 05/31/2023 11/29/2022, 10/0 07/2022, 11/03/2022, Additional history exists O2 ASSESSMENT COMPLETED IN PAST YEAR FOR COPD 12/14/2023 12/13/2022 COLONOSCOPY-EVERY 5 YRS AGES 18-100 10/31/2025 10/31/2020, [...] this encounter Medical Devices Implanted Type Area Training Program Manager Device Identifier Shelf Expiration Date Model / Serial / Lot Sut Steel 6 [id number] - [id number] Implanted:Qty: 6 on 07/10/2008 at OR [facility] N/A: Chest DO NOT USE 08/14/2012 [id number] / / [id number] documented as of this encounter Visit Diagnoses Diagnosis Type 2 diabetes mellitus with hemoglobin A1c goal of less than 8.0% (HCC)- Primary Atherosclerosis of coronary artery bypass graft of seminole heart with angina pectoris (HCC) documented in this encounter Advance Directives Documents on File Type Date Recorded Patient Biofuels Technology Manager Expl anation Power of Track Supervisor 06/26/2019 POWER OF A TTORNEY Advance [...] the patient have Health Care Power of Track Supervisor? No Code Status History Code Status [...] patient or by statute hierarchy) Care Teams Restaurant Manager Relationship Specialty Start Date End Date Nicola Prado MD [address] [place] [address] [place] [phone] PCP - General Family Medicine 06/19/21 documented as of this encounter
--- OUTSIDE RECORDS SUMMARY | 2023-02-03 20:17 | External Medical Summary | Summary of Care ---
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 [...] 12 Hour (Mucinex)Indications :COPD exacerbation ([facility]) Take 1 Tablet by mouth 2 times a day as needed for Congestion. Take with plenty of water. Do not cut, crush or chew 40 Tablet 0 10/13/2022 Active Tresiba FlexTouch 200 UNIT/ML Subcutaneous Solution Pen-injector (Insulin Degludec)Indications :Type 2 diabetes mellitus with hemoglobin A1c goal of less than 8.0% ([facility]) Inject 100 Units under the skin daily. [...] ons:H/O psoriasis,Polyarticu lar psoriatic arthritis ([facility]) Inject 50 mg under the skin once a week. 4 mL 1 11/17/2022 Active Albuterol Sulfate HFA 108 (90 Base) MCG/ACT Inhalation Aerosol SolutionIndications: COPD exacerbation ([facility]),Chronic cough Inhale 2 Puffs by mouth every [...] Each 0 12/06/2022 Active Easy Touch Pen [place] 31G X 8 MM (Insulin Pen Needle)Indications:T ype 2 diabetes mellitus with hemoglobin A1c goal of less than 8.0% ([facility]),Type 2 diabetes mellitus with stage 4 chronic kidney disease, unspecified whether terminal carman insulin use ([facility]) Use up to eight times daily with insulin. DXe11.9 600 Each 3 12/07/2022 Active Allopurinol 300 MG Oral Tablet (Zyloprim) Take 1 Tablet by mouth daily. 90 Tablet 1 12/17/2022 Active Advanced Patient Care Voice Blood Glucose w/Device Kit Use as directed to test blood sugars up to four times daily DxE11.9 1 Kit 0 12/21/2022 Active Advanced Patient Care No Coding Blood Gluc In Vitro Strip [...] Problem Noted Date Diagnosed Date Atherosclerosis of [place] co ronary artery of [place] heart with stable angina pectoris 12/27/2022 Atherosclerosis of coronary artery bypass graft of [place] heart with angina pectoris 10/13/2022 Encounter for [...] urinary tract symp toms 07/13/2001 Atherosclerosis of [place] co ronary artery of [place] heart without angina pectoris documented as of [...] 07/24/2018 03/28/2019 Overview: Per COPD GOLD Classification 10/30/19 In Check dial performed to assess inhaler technique: Name of inhaler Albuterol Pass: Yes at 50L/min. Encourage to take nice slow deep breaths and use aero chamber. Test performed by Dori PLASTIC SURGEON CPFT Body mass index (BMI) of 45. [...] TIA (transient ischemic attack) 02/04/2016 11/23/2017 Overview: [facility] Anemia of chronic renal [...] CASE MANAGEMENT 07/22/200812/01 Overview: Kianna Lyn RN [phone] Examination following surgery 07/11/2008 12/31/2011 Difficult intubation 07/10/2008 021 Overview: Patient seen and examined in OR#1.Possible difficult intubation.TM distance about 5 cms.MP 3-4. Will plan FOB electively Due to current situation. EXAMINATION OF PARTICIPANT I N CLINICAL TRIAL-genomics 07/04/2008 05/30/2009 Overview: Renamed Per Clinical Trials Billing Project. Study Titile: Genomic Markers for Patients with Cardiovascular Disease Project #[id number] PI: Miriam Roque MD Please call [phone] with study related questions Chronic coronary artery [...] not at goal 07/04/200809/06 GENOMICS CARDIO RESEARCH OTHER*[id number] 07/04/2008 03/23/2016 Overview: Renamed Per Clinical Trials Billing Project. Study Titile: Genomic Markers for Patients with Cardiovascular Disease Project #[id number] PI: Miriam Roque MD Please call [phone] with study related questions Kidney disease, chronic, [...] Description 01/04/2023 6:10 PM EST Pharmacy Pharmacy, [address] [place] [address] [place] [address] 01/28/2023 2:00 PM EST Office Visit Nephrology [address] [place] [address] ZeVerito gramajo PA-C [facility] [place] [address] 03/04/2023 10:30 AM EST Office Visit Gastroenterology [address] [place] [address] Marielena Hall CRNP [address] [place] [address] 03/28/2023 9:30 AM EST Office Visit Cardiology, [facility] [place] [address] [place] [address] Nevaeh Linda PA-C [address] [place] [address] [place] [id number] 03/29/2023 11:00 AM EST Office Visit Family Medicine [address] [place] [phone] Nicola Prado MD [address] [place] [address] [place] [address] 03/29/2023 12:30 PM EST Office Visit Cardiology [address] [place] [address] Blair Hannah PA-C [address] [place] [address] 04/05/2023 9:45 AM EST Office Visit Urology, [facility] [address] [place] [address] Denny Armando MD [address] [address] [place] [address] 05/20/2023 2:00 PM EDT Office Visit Rheumatology [address] [place] [phone] Jenni Perez CRNP [address] [place] [address] [place] [address] 06/02/2023 11:00 AM EDT Nurse Only Ancillary [address] [place] [address] [place], Nurse Annual Wellness [address] [place] [address] [place] [address] 10/12/2023 11:20 AM EDT Office Visit [facility] [place] [phone] Eulalia Milligan DO [address] [place] [address] 10/25/2023 10:00 AM EDT Cardiac Studies Cardiology [address] [place] [address] Neeraj Pacer [address] [place] [address] Pending Results Name Type Priority Associated Diagnoses Date /Time CBC WITH WBC DIFFERENTIAL Lab Routine Iron deficiency anemia 12/27/2022 12:02 PM EST LIPID PANEL WITH DIRECT LDL IF TG IS HIGH Lab Routine Dyslipidemia, goal LDL below 70 Atherosclerosis of bad river band coronary artery of bad [place] heart without angina pectoris 12/27/2022 12:02 PM EST AST Lab Routine Dyslipidemia, goal LDL below 70 Atherosclerosis of bad [place] coronary artery of bad [place] heart without angina pectoris 12/27/2022 12:02 PM EST ALT Lab Routine Dyslipidemia, goal LDL below 70 Atherosclerosis of bad river [place] coronary artery of bad [place] heart without angina pectoris 12/27/2022 12:02 PM EST CBC Lab Routine Iron deficiency anemia 12/27/2022 12:02 PM EST DIFFERENTIAL, AUTOMATED Lab Routine Iron deficiency anemia 12/27/2022 12:02 PM EST Scheduled Procedures Name [...] this encounter Medical Devices Implanted Type Area Merchandise Worker Device Identifier Shelf Expiration Date Model / Serial / Lot Sut Steel 6 [id number] - [id number] Implanted:Qty: 6 on 07/10/2008 at OR [facility] N/A: Chest DO NOT USE 08/14/2012 [id number] / / [id number] documented as of this encounter Visit Diagnoses Diagnosis Iron deficiency anemia Iron deficiency anemia, unspecified Dyslipidemia, goal LDL below 70 Other and unspecified hyperlipidemia Atherosclerosis of bad river [place] coronary artery of bad [place] heart without angina pectoris documented in this encounter Advance Directives Documents on File Type Date Recorded Patient Ciaio Counter Molder Expl anation Power of Collection Supervisor 06/26/2019 POWER OF A TTORNEY Advance [...] the patient have Health Care Power of Collection Supervisor? No Code Status History Code Status [...] patient or by statute hierarchy) Care Teams Insurance Billing Clerk Relationship Specialty Start Date End Date Nicola Prado MD [address] [place] [address] [place] [address] PCP - General Family Medicine 06/19/21 documented as of this encounter
--- OUTSIDE RECORDS SUMMARY | 2023-02-03 20:18 | External Medical Summary | Summary of Care ---
Author Name Unknown Organization [facility] Address [address] [place] [address] Phone [phone] Care Team Providers Care Draw Off Worker Name Role Phone Nicola Prado MD Primary Care Provide r Encounter Details Date Type Department Care Team (Late st Contact Info) Description 12/21/2022 Telephone Pharmacy, [address] [place] [address] [facility] [place] [address] Allergies Active Allergy Reactions Criticality Noted Date Comments Hydromorphone High 09/20/2021 Other reaction(s): Nausea Other reaction(s): Nausea 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/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 Other reaction(s): AMS Other reaction(s): AMS Prasugrel 04/02/2016 bleeding Prednisone High 09/20/2021 Other reaction(s): INCREASE BLOOD SUGAR Other reaction(s): INCREASE BLOOD SUGAR documented as of this encounter (statuses as of 12/24/2022) Medications Medication Sig Dispensed Refills Start Date [...] goal of less than 8.0% ([facility]),Type 2 diabetes mellitus with stage 4 chronic kidney disease, with long-term current use of insulin ([facility]) Inject 1.8 mg under the [...] Extended Release 12 Hour (Mucinex)Indications :COPD exacerbation ([facility]) Take 1 Tablet by mouth 2 times a day as needed for Congestion. Take with plenty of water. Do not cut, crush or chew 40 Tablet 0 10/13/2022 Active Tresiba FlexTouch 200 UNIT/ML Subcutaneous Solution Pen-injector (Insulin Degludec)Indications :Type 2 diabetes mellitus with hemoglobin A1c goal of less than 8.0% ([facility]) Inject 100 Units under the [...] 24 Hour (Imdur)Indications:C hronic diastolic heart failure ([facility]) Take 1 Tablet by mouth in the morning. 90 Tablet 3 11/19/2022 Active Enbrel SureClick 50 MG/ML Subcutaneous Solution Auto-injector (Etanercept)Indicati ons:H/O psoriasis,Polyarticu lar psoriatic arthritis ([facility]) Inject 50 mg under the skin once a week. 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 DXe11.9 600 Each 3 12/07/2022 Active Allopurinol 300 MG Oral Tablet (Zyloprim) Take 1 Tablet by mouth daily. 90 Tablet 1 12/17/2022 Active Attributory Voice Blood Glucose w/Device Kit Use as directed to test blood sugars up to four times daily DxE11.9 1 Kit 0 12/21/2022 Active MENA SOCIAL No Coding Blood Gluc In Vitro Strip [...] as of this encounter (statuses as of 12/24/2022) Active Problems Problem Noted Date Diagnosed Date Atherosclerosis of coronary artery bypass graft of [place] heart with angina pectoris 10/13/2022 Encounter for [...] urinary tract symp toms 07/13/2001 Atherosclerosis of [place] co ronary artery of [place] heart without angina pectoris Morbid obesity with BMI of 40.0-44.9, adult documented as of this encounter (statuses as of 12/24/2022) Resolved Problems Problem Noted Date Diagnosed Date Resolved Date Encounter for central line care 08/05/2021 10/26/2021 [...] use aero chamber. Test performed by Dori NETWORK SUPPORT ADMINISTRATOR CPFT Body mass index (BMI) of 45. [...] CASE MANAGEMENT 07/22/200812/01 Overview: Kianna Lyn, RN [phone] Examination following surgery 07/11/2008 12/31/2011 Difficult intubation 07/10/2008 021 Overview: Patient seen and examined in OR#1.Possible difficult intubation.TM distance about 5 cms.MP 3-4. Will plan FOB electively Due to current situation. EXAMINATION OF PARTICIPANT I N CLINICAL TRIAL-genomics 07/04/2008 05/30/2009 Overview: Renamed Per Clinical Trials Billing Project. Study Titile: Genomic Markers for Patients with Cardiovascular Disease Project #[id number] PI: Miriam Roque MD Please call [phone] with study related questions Chronic coronary artery [...] not at goal 07/04/200809/06 GENOMICS CARDIO RESEARCH OTHER*[id number] 07/04/2008 03/23/2016 Overview: Renamed Per Clinical Trials Billing Project. Study Titile: Genomic Markers for Patients with Cardiovascular Disease Project #[id number] PI: Miriam Roqeu MD Please call [phone] with study related questions Kidney disease, chronic, [...] as of this encounter (statuses as of 12/24/2022) Immunizations Name Administration Dates Next Due COVID-19 [...] Telephone Encounter - Karlene Alvarez RPh - 12/21/2022 4:48 PM EST Received fax from Nesha Bennett RN at [facility]. Communication scanned into chart. Per fax, "I am sure you know his BS are unstable he doses himselfwith the insulin he thinks he needs, Maurisio is afraid of dying in the night from hypoglycemia, he told me I don't give as much as I should. He is AO and understands absolutely consequences of unstable blood sugars. You probably are aware he has macular degeneration and is legally blind. Maurisio has an aide and his grandon provide assistance. For whatever reason there are times he reads the BS number by himself. I wondering a prodigy voice glucose meter could be ordered for him. I think this would help." Patient not seen by [facility] since 10/06. No f/u currently scheduled. Provided with both Dexcom G6 and G7as well as Freestyle Kalyan in the past as patient would greatly benefit from Continuous Glucose Monitoring. Patient has declined, will plan to again discuss. PCP f/u scheduled for 12/27. In the interim, will send in Prodigy meter to pharmacy. Attempted to contact patient. No answer, left message to return call to clinic to further discuss. Karlene Alvarez RPh, PharmD Clinical Pharmacist - Retail Sales Vitamin Consultant Medication Therapy [facility] 12/21/2022, 4:58 PM [phone] documented in this encounter Plan of Treatment Upcoming Encounters Date Type Department Care Team (Late st Contact Info) Description 12/27/2022 11:20 AM EST Office Visit Family Medicine [address] [place] [phone] Nicola Prado MD [address] [place] [address] [place] [address] 01/04/2023 6:10 PM EST Pharmacy Pharmacy, [address] [place] [address] [place] [address] 01/28/2023 2:00 PM EST Office Visit Nephrology [address] [place] [address] Verito Jovel PA-C [address] [facility] [address] 03/04/2023 10:30 AM EST Office Visit Gastroenterology [address] [place] [address] Marielena Hall CRNP [address] [place] [address] 03/28/2023 9:30 AM EST Office Visit Cardiology, [facility] [address] [place] [address] Nevaeh Linda PA-C [address] [place] [address] [place] [address] 03/29/2023 12:30 PM EST Office Visit Cardiology [address] [place] [address] Blair Hannah PA-C [address] [place] [address] 04/05/2023 9:45 AM EST Office Visit Urology, [facility] 132 [facility] [place] [address] Denny Armando MD 27 [facility] [address] [place] [address] 05/20/2023 2:00 PM EDT Office Visit Rheumatology [address] [place] [phone] Jenni Perez CRNP [address] [place] [address] [place] [address] 06/02/2023 11:00 AM EDT Nurse Only Ancillary [address] [place] [address] Nurse Neeraj [address] [place] [address] 10/12/2023 11:20 AM EDT Office Visit Sleep Disorders Ctr [facility] 132 [facility] [place] [phone] Eulalia Milligan DO 132 [facility] [place] [address] 10/25/2023 10:00 AM EDT Cardiac Studies Cardiology [address] [place] [address] [facility] 132 [facility] [place] [address] Scheduled Procedures Name Priority Associated Diagnoses Date/Ti [...] 05/31/2023 11/29/2022, 1007/2022, 11/03/2022, Additional history exists O2 ASSESSMENT COMPLETED [...] this encounter Medical Devices Implanted Type Area Crossing Guard Device Identifier Shelf Expiration Date Model / Serial / Lot Sut Steel 6 [id number] - [id number] Implanted:Qty: 6 on 07[place]10[place] [facility] [place]A: Chest DO NOT USE 08/14/2012 [id number] / / [id number] documented as of this encounter Visit Diagnoses Diagnosis Type 2 diabetes mellitus with hemoglobin A1c goal of less than 8.0% ([facility])- Primary documented in this encounter Advance Directives Documents on File Type Date Recorded Patient Java Core Developer Expl anation Power of Media Sales Consultant 06/26/2019 POWER OF A TTORNEY Advance Directives [...] the patient have Health Care Power of Media Sales Consultant? No Code Status History Code Status Date [...] patient or by statute hierarchy) Care Teams Draw Off Worker Relationship Specialty Start Date End Date Nicola Prado MD [address] [place] [address] [place] [address] PCP - General Family Medicine 06/19/21 documented as of this encounter
--- OUTSIDE RECORDS SUMMARY | 2023-02-03 20:18 | External Medical Summary | Summary of Care ---
Author Name Unknown Organization [facility] Address [address] [place] [address] Phone [phone] Care Team Providers Care Auto Wheel Alignment Specialist Name Role Phone Nicola Prado MD Primary Care Provide r Reason for Visit * Reason Comments eRx-Medication Refill Encounter Details Date Type Department Care Team (Late st Contact Info) Description 12/14/2022 Refill Rheumatology [address] [place] [phone] Keerthi Aparicio MD [facility] [place] [address] Allergies Active Allergy Reactions Criticality Noted Date Comments Hydromorphone High 09/20/2021 Other reaction(s): Nausea Other reaction(s): Nausea 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/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 Other reaction(s): AMS Other reaction(s): AMS Prasugrel 04/02/2016 bleeding Prednisone High 09/20/2021 Other reaction(s): INCREASE BLOOD SUGAR Other reaction(s): INCREASE BLOOD SUGAR documented as of this encounter (statuses as of 12/17/2022) Medications Medication Sig Dispensed Refills Start Date [...] 454 g 1 12/14/2021 Active OneTouch UltraSoft LancetsIndication s:Type 2 diabetes [...] hemoglobin A1c goal of less than 8.0% ([facility]),Type 2 diabetes mellitus with stage 4 chronic kidney disease, with long-term current use of insulin ([facility]) Inject 1.8 mg under the skin daily. [...] Extended Release 12 Hour (Mucinex)Indicati ons:COPD exacerbation ([facility]) Take 1 Tablet by mouth 2 times a day as needed for Congestion. Take with plenty of water. Do not cut, crush or chew 40 Tablet 0 10/13/2022 Active Tresiba FlexTouch 200 UNIT/ML Subcutaneous Solution Pen-injector (Insulin Degludec)Indicati ons:Type 2 diabetes mellitus with hemoglobin A1c goal of less than 8.0% ([facility]) Inject 100 Units under the skin daily. [...] Base) MCG/ACT Inhalation Aerosol SolutionIndicatio ns:COPD exacerbation ([facility]),Chronic cough Inhale 2 Puffs by mouth every [...] Each 0 12/06/2022 Active Easy Touch Pen Dragoon 31G X 8 MM (Insulin Pen Needle)Indication s:Type 2 diabetes mellitus with hemoglobin A1c goal of less than 8.0% ([facility]),Type 2 diabetes mellitus with stage 4 chronic kidney disease, unspecified whether jail insulin use ([facility]) Use up to eight times daily with insulin. DXe11.9 600 Each 3 12/07/2022 Active Allopurinol 300 MG Oral Tablet (Zyloprim) Take 1 Tablet by mouth daily. 90 Tablet 1 12/17/2022 Active Allopurinol 300 MG Oral Tablet (Zyloprim) Take 1 Tablet by mouth daily. 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 [...] (transient ischemic attack) 02/04/2016 11/23/2017 Overview: [facility] Anemia of chronic renal failure 07/30/2015 [...] CASE MANAGEMENT 07/22/200812/01 Overview: Kianna Lyn, RN [phone] Examination following surgery 07/11/2008 12/31/2011 Difficult intubation 07/10/2008 021 Overview: Patient seen and examined in OR#1.Possible difficult intubation.TM distance about 5 cms.MP 3-4. Will plan FOB electively Due to current situation. EXAMINATION OF PARTICIPANT I N CLINICAL TRIAL-genomics 07/04/2008 05/30/2009 Overview: Renamed Per Clinical Trials Billing Project. Study Titile: Genomic Markers for Patients with Cardiovascular Disease Project #[id number] PI: Miriam Roque MD Please call [phone] with study related questions Chronic coronary artery [...] not at goal 07/04/200809/06 GENOMICS CARDIO RESEARCH OTHER*[id number] 07/04/2008 03/23/2016 Overview: Renamed Per Clinical Trials Billing Project. Study Titile: Genomic Markers for Patients with Cardiovascular Disease Project #[id number] PI: Miriam Roque MD Please call [phone] with study related questions Kidney disease, chronic, [...] as of this encounter (statuses as of 12/17/2022) Immunizations Name Administration Dates Next Due COVID-19 mRNA, LNP-s, No Pre serve, 2-Dose Series (Endymed) 12/09/2020,05/09/2020,04/11/2020 COVID-19, LNP-s, No Preserve , Juan [...] encounter Miscellaneous Notes * Telephone Encounter - Cynthia Lemus RPh - 12/17/2022 9:03 AM EDTSigned Prescriptions: Disp Refills Allopurinol 300 MG Oral Tablet (Zyloprim) 90 Tab*1 Sig: Take 1 Tablet by mouth daily.Authorizing Provider: KEERTHI APARICIO User: CYNTHIA LEMUS-------- * Telephone Encounter - Cynthia Lemus RPh - 12/17/2022 8:56 AM EDT Rheumatology: Refill Request(s) Per review of the refill parameters, Medication was refilled Cynthia Lemus RPh [facility] Clinical Pharmacist Rheumatology Department 12/17/2022,8:56 AM * Telephone Encounter - Abbe Malhotra LPN - 12/16/2022 3:04 PM EDTPending Prescriptions: Disp Refills Allopurinol 300 MG Oral Tablet [Pharmacy M*90 Tab*3 Sig: Take 1 Tablet by mouth daily. * Telephone Encounter - Abbe Malhotra LPN - 12/16/2022 3:04 PM EDTPending Prescriptions: Disp Refills Allopurinol 300 MG Oral Tablet [Pharmacy M*90 Tab*3 Sig: Take 1 Tablet by mouth daily. * Telephone Encounter - Blanco Ny OSA - 12/16/2022 9:02 AM EDT Scheduled for -24 and on wait list. * Telephone Encounter - Alexsandra Andino CPhT - 12/16/2022 8:43 AM EDTPending Prescriptions: Disp Refills Allopurinol 300 MG Oral Tablet [Pharmacy M*90 Tab*3 Sig: Take 1 Tablet by mouth daily. * Telephone Encounter - Alexsandra Andino CPhT - 12/16/2022 8:41 AM EDT Pt is due for an office visit. Pt agreeable and transferred to scheduling to setup appt. Pending Prescriptions: Disp Refills Allopurinol 300 MG Oral Tablet (Zyloprim)*90 Tab*3 Sig: Take 1 Tablet by mouth daily. Last Visit: 12/29/2020 (in office), Visit date not found (telemedicine) Visit date not found If no future appointments scheduled, and last appointment is greater than a year ago, please schedule patient for a follow-up appointment Last date the medication was ordered: 12.16.21 Patient Phone Numbers Labs: Lab Results Component Value Date/Time CREAT 1.8 (H) 11/29/2022 09:48 AM CREAT 2.10 (A) 05/18/2020 12:00 AM CREAT 2.1 (H) 02/22/2020 08:52 AM POTASSIUM 4.1 11/29/2022 09:48 AM POTASSIUM 3.9 05/18/2020 12:00 AM POTASSIUM 4.2 02/22/2020 08:52 AM TSH 1.32 10/26/2022 11:14 AM TSH 1.30 10/26/2022 11:14 AM TSH 2.760 05/18/2020 12:00 AM TSH 1.37 11/09/2013 02:31 PM LDLCALC 62 10/14/2021 12:42 PM LDLCALC 04/24/2019 07:55 AM Uninterpretable, recommend direct LDL cholesterol testing. LDLDIRECT 81 09/21/2022 01:06 PM LDLDIRECT 79 02/06/2018 09:03 AM LDLDIRECT 138 (H) 08/27/1998 08:20 AM ALT 29 11/03/2022 09:14 AM ALT 13 01/23/2020 12:11 PM HGBA1C 7.7 (H) 10/06/2022 01:39 PM HGBA1C 6.5 (H) 12/14/2019 12:04 PM documented in this encounter Plan of Treatment Upcoming Encounters Date Type Department Care Team (Late st Contact Info) Description 12/20/2022 4:20 PM EST Office Visit Dermatology [address] [place] [phone] Meron Aragon PA-C [address] [place] [address] [place] [address] 12/27/2022 11:20 AM EST Office Visit Family Medicine [address] [place] [phone] Nicola Prado MD [address] [place] [address] [place] [address] 01/04/2023 6:10 PM EST Pharmacy Pharmacy, [address] [place] [address] [place] [address] 01/28/2023 2:00 PM EST Office Visit Nephrology [address] [place] [address] Verito Jovel PA-C [address] [place] [address] 03/04/2023 10:30 AM EST Office Visit Gastroenterology [address] [place] [address] Marielena Hall CRNP [address] [place] [address] 03/28/2023 9:30 AM EST Office Visit Cardiology, [facility] [address] [place] [address] Nevaeh Linda PA-C [address] [place] [address] [place] [address] 03/29/2023 12:30 PM EST Office Visit Cardiology [address] [place] [address] Blair Hannah PA-C [address] [place] [address] 04/05/2023 9:45 AM EST Office Visit Urology, [facility] [address] [facility] [place] [address] Denny Armando MD [address] [address] [place] [address] 05/20/2023 2:00 PM EDT Office Visit Rheumatology [address] [place] [phone] Jenin Perez CRNP [address] [place] [address] [place] [address] 06/02/2023 11:00 AM EDT Nurse Only Ancillary [address] [place] [address] Nurse Neeraj [address] [place] [address] 10/12/2023 11:20 AM EDT Office Visit [facility] Disorders Ctr [facility] [address] [facility] [place] [phone] Eulalia Milligan DO [address] [facility] [place] [address] 10/25/2023 10:00 AM EDT Cardiac Studies Cardiology [address] [place] [address] [facility] [place] [address] Scheduled Procedures Name Priority Associated Diagnoses Date/Ti [...] this encounter Medical Devices Implanted Type Area Caponizer Device Identifier Shelf Expiration Date Model / Serial / Lot Sut Steel 6 [id number] - [id number] Implanted:Qty: 6 on 07/10/2008 at OR [facility] N/A: Chest DO NOT USE 08/14/2012 [id number] / / [id number] documented as of this encounter Advance Directives Documents on File Type Date Recorded Patient Meeting Coordinator Expl anation Power of Sand Molder 06/26/2019 POWER OF A TTORNEY Advance Directives [...] the patient have Health Care Power of Sand Molder? No Code Status History Code Status Date [...] patient or by statute hierarchy) Care Teams Auto Wheel Alignment Specialist Relationship Specialty Start Date End Date Nicola Prado MD [address] [place] [address] [place] [phone] PCP - General Family Medicine 06/19/21 documented as of this encounter
--- OUTSIDE RECORDS SUMMARY | 2023-02-03 20:18 | External Medical Summary | Summary of Care ---
Author Name Unknown Organization [facility] Address [address] [place] [address] Phone [phone] Care Team Providers Care Docking Saw Operator Name Role Phone Nicola Prado MD Primary Care Provide r Reason for Visit * Reason Comments Follow Up Encounter Details Date Type Department Care Team (Late st Contact Info) Description 12/13/2022 2:00 PM EDT Office Visit Cardiology, [facility] [address] [facility] [place] [address] Nevaeh Linda PA-C [address] [place] [address] [place] [id number] Coronary artery disease involving alturas coronary artery of alturas heart without angina pectoris*; Stable angina; Cardiac pacemaker in situ; Chronic heart failure with preserved ejection fraction (HCC); Dyslipidemia, goal LDL below 70; HTN, goal below 130/80 Allergies Active Allergy Reactions Criticality Noted Date Comments Hydromorphone High 09/20/2021 Other reaction(s): Nausea Other reaction(s): Nausea 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/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 Other reaction(s): AMS Other reaction(s): AMS Prasugrel 04/02/2016 bleeding Prednisone High 09/20/2021 Other reaction(s): INCREASE BLOOD SUGAR Other reaction(s): INCREASE BLOOD SUGAR documented as of this encounter (statuses as of 12/13/2022) Medications Medication Sig Dispensed Refills Start Date [...] when flaring 454 g 1 12/14/2021 Active Allopurinol 300 MG Oral Tablet (Zyloprim) Take 1 Tablet by mouth daily. 90 Tablet 3 12/16/2021 Active OneTouch UltraSoft LancetsIndications:T ype 2 diabetes [...] than 8.0% ([facility]) 12 units with breakfast and supper PLUS [...] than 8.0% ([facility]),Type 2 diabetes mellitus with stage 4 chronic kidney disease, with long-term current use of insulin ([facility]) Inject 1.8 mg under the skin daily. [...] Release 12 Hour (Mucinex)Indications :COPD exacerbation ([facility]) Take 1 Tablet by mouth 2 times a day as needed for Congestion. Take with plenty of water. Do not cut, crush or chew 40 Tablet 0 10/13/2022 Active Tresiba FlexTouch 200 UNIT/ML Subcutaneous Solution Pen-injector (Insulin Degludec)Indications :Type 2 diabetes mellitus with hemoglobin A1c goal of less than 8.0% ([facility]) Inject 100 Units under the skin daily. [...] (Etanercept)Indicati ons:H/O psoriasis,Polyarticu lar psoriatic arthritis ([facility]) Inject 50 mg under the skin once a week. 4 mL 1 11/17/2022 Active Albuterol Sulfate HFA 108 (90 Base) MCG/ACT Inhalation Aerosol SolutionIndications: COPD exacerbation ([facility]),Chronic cough Inhale 2 Puffs by mouth every [...] Each 0 12/06/2022 Active Easy Touch Pen Belmond 31G X 8 MM (Insulin Pen Needle)Indications:T ype 2 diabetes mellitus with hemoglobin A1c goal of less than 8.0% ([facility]),Type 2 diabetes mellitus with stage 4 chronic kidney disease, unspecified whether ferry terminal supervisor insulin use ([facility]) Use up to eight times daily with insulin. DXe11.9 600 Each 3 12/07/2022 Active Hospital, Clinic, or Other Facility Administered Medication Ordered Dose Route Frequency Start Date End Date Status Albuterol Sulfate (Proventil) (2.5 MG/3ML) 0.083% inhalation solution 2.5 mgIndications:Dyspnea and respiratory abnormalities 2.5 mg NEBULIZER PRN 05/18/2022 05/18/2023 Active documented as of this encounter (statuses as of 12/13/2022) Active Problems Problem Noted Date Diagnosed Date Atherosclerosis of coronary artery bypass graft of alturas heart with angina pectoris 10/13/2022 Encounter for [...] urinary tract symp toms 07/13/2001 Atherosclerosis of alturas co ronary artery of alturas heart without angina pectoris Morbid obesity with BMI of 40.0-44.9, adult documented as of this encounter (statuses as of 12/13/2022) Resolved Problems Problem Noted Date Diagnosed Date [...] use aero chamber. Test performed by Dori ENGINEERING OPERATOR CPFT Body mass index (BMI) of [...] TIA (transient ischemic attack) 02/04/2016 11/23/2017 Overview: [facility] Anemia of chronic renal failure [...] MANAGEMENT 07/22/200812/01 Overview: Kianna Lyn RN [phone] Examination following surgery 07/11/2008 12/31/2011 Difficult intubation 07/10/2008 021 Overview: Patient seen and examined in OR#1.Possible difficult intubation.TM distance about 5 cms.MP 3-4. Will plan FOB electively Due to current situation. EXAMINATION OF PARTICIPANT I N CLINICAL TRIAL-genomics 07/04/2008 05/30/2009 Overview: Renamed Per Clinical Trials Billing Project. Study Titile: Genomic Markers for Patients with Cardiovascular Disease Project #[id number] PI: Miriam Roque MD Please call [phone] with study related questions Chronic coronary artery [...] not at goal 07/04/200809/06 GENOMICS CARDIO RESEARCH OTHER*[id number] 07/04/2008 03/23/2016 Overview: Renamed Per Clinical Trials Billing Project. Study Titile: Genomic Markers for Patients with Cardiovascular Disease Project #[id number] PI: Miriam Roque MD Please call [phone] with study related questions Kidney disease, chronic, [...] as of this encounter (statuses as of 12/13/2022) Immunizations Name Administration Dates Next Due COVID-19 [...] 10 Q uit: 01/27/1998 Smokeless Tobacco: Never Tobacco Cessation:Counseling Given: Not Answered Alcohol Use Standard Drinks/Week Comments No 0 [...] Sign Reading Time Taken Comments Blood Pressure 142/76 12/13/2022 1:44 PM EDT Pulse 84 12/13/2022 1:44 PM EDT Temperature - - Respiratory Rate 16 12/13/2022 1:44 PM EDT Oxygen Saturation 95% 12/13/2022 1:44 PM EDT Inhaled Oxygen Concentration - - Weight 114.8 kg (253 lb) 12/13/2022 1:44 PM EDT Height - - Body Mass Index 43.43 12/02/2022 10:11 AM EDT documented in this encounter Progress Notes * Nevaeh Linda PA-C - 12/13/2022 1:56 PM EDT 12/13/2022 Cardiology Follow Up Primary Clinical Admissions Manager: Dr. Gomes Cardiac Problems: Coronary artery disease, status post coronary bypass grafting surgery x3 (GIVENS- LAD, SVG-OM, SVG-PDA) in 2008, along with multiple PCIs to the RCA and patent RCA stents with GIVENS-LAD, SVG-OM patent grafts and chronic SVG-PDA occlusion by cardiac catheterization August 2016 and November 2022 High-degree heart block status post pacemaker placement Hypertension Dyslipidemia. HPI: Maurisio Beltran is a 82 year old male who presents today for 1 month cardiology follow up. Since last visit had cardiac catheterization due to chest discomfort. It showed patent bypass grafts, chronic SVG-PDA occlusion, patent RCA stents, recommended medical management. Presents today stating he overall feels well. Continues to have chest discomfort, but improved. Hasepisodes of chest discomfort mainly in the evening, lasts about 5 minutes. Thinks increase in Imdurhas helped with the pain. Has chronic shortness of breath. Went to beach and noticed his breathing was better, O2 in the 90s.Returned home and continued to have shortness of breath, mainly with exertion, states O2 drops as low as 80s. Thinks is breathing is related to the altitude. Uses oxygen sometimes when walking around. Denies edema, PND, orthopnea, lightheadedness, syncope. Follows with nephrology for recurrent ESA and hem/onc for iron deficiency anemia, previously received iron transfusions, now on octreotide. REVIEW OF SYSTEMS: See HPI for pertinent positives. All others negative other than those noted in the HPI. CONSTITUTIONAL: No change in weight, No weakness, No fatigue and No fevers, No sweats or chills. PULMONARY: No cough, sputum, or hemoptysis, No wheezing, No shortness or breath and No recent change in breathing. CARDIOVASCULAR: + chest pain, + dyspnea on exertion, No edema, No palpitations and No syncope. GASTROINTESTINAL: No abdominal pain, No change in bowel habits, No significant heartburn, No nausea, No vomiting, No diarrhea, No constipation, No blood in stools or black tarry stools. No dysphagia. HEMATOLOGIC: No abnormal bleeding and No bruising. NEUROLOGICAL: Normal balance, No headaches and No weakness. Review of patient's allergies indicates: Allergen Reactions Hydromorphone Other reaction(s): Nausea Other reaction(s): Nausea Methylprednisolone Steroid psychosis Other reaction(s): AMS Other reaction(s): AMS Prednisone Other reaction(s): INCREASE BLOOD SUGAR Other reaction(s): INCREASE BLOOD SUGAR Prasugrel bleeding Current Outpatient Medications Medication Sig Dispense Refill [...] resolved, then when flaring 454 g 1 Allopurinol 300 MG Oral Tablet (Zyloprim) Take 1 Tablet by mouth daily. 90 Tablet 3 Xiidra 5 % Ophthalmic Solution instill [...] and 3 LPM with exertion/activity) DME: [facility]. OneTouch UltraSoft Lancets Test blood sugar up to five times daily; dx E11.9 450 Each 3 OneTouch Ultra In Vitro Strip (Glucose Blood) 3-4 times a day 450 Strip 3 BD TB Syringe 27G X 1/2" 1 ML (Tuberculin Syringe) To be used with Octreotide. 60 Each 0 Easy Touch Pen Belmond 31G X 8 MM (Insulin Pen Needle) Use up to eight times daily with insulin. DXe11.9 600 Each 3 Current Facility-Administered Medications Medication Dose Route Frequency Provider Last Rate Last Admin Albuterol Sulfate (Proventil) (2.5 MG/3ML) 0.083% inhalation solution 2.5 mg 2.5 mg Nebulizer PRN Mccrary, Al Reinoso, PAJovanniC Past Medical History: Diagnosis Date (HFpEF) heart failure with preserved ejection fraction (HCC) Acute blood loss anemia 10/29/2020 [facility] transfused Acute exacerbation of chronic obstructive pulmonary disease (COPD) (HCC) 05/11/2018 [facility] Altered mental status 03/31/2017 likely the baclofen [...] cuff CKD (chronic kidney disease), stage IV (HCC) GFR 26.5 COPD, mild (HCC) 08/21/2010 COPD, moderate ([facility]) 10/04/2014 PFT Coronary atherosclerosis of alturas coronary artery 07/04/2008 [place] [facility] [place]19 02/24/2021 Dermatophytosis of scalp or bello DM type 2 causing CKD stage 4 ([facility]) DM type 2, goal A1c below 7 [...] chronic, stage III (GFR 30-59 ml/min) ([facility]) 06/2008 Malignant neoplasm of prostate ([facility]) Prostate Mixed dyslipidemia Morbid obesity with BMI of 45.0-49.9, adult ([facility]) Other psoriasis S/P primary angioplasty with coronary stent 09/05/2013 drug eluting stents to 60% RCA, other grafts open except SVG to PDA is occluded Sleep apnea CPAP Sleep apnea, obstructive Symptomatic anemia 10/29/2020 Admitted [facility] and transfused TIA (transient ischemic attack) 02/04/2016 [facility] Tubular adenoma 10/31/2020 Family History Problem Relation Age of Onset Asthma Brother Cancer Grandfather (Maternal) stomach Lung Disorder Father Cancer Aunt (Unspecified) Cancer Uncle (Unspecified) Heart Disorder Brother 46 UT age 46 Heart Disorder Mother mi age 82 Diabetes Son 35 IDDM Mental Disorder Mother Received electric shcok in the [place] Blood Disorder Son "Thick Blood" Arthritis Son Social History Socioeconomic History Marital status: Spouse name: Cathryn Number of children: 2 Occupational History 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 Passed 11/2021 from dementia Social Determinants of Health Food Insecurity: No Food Insecurity (05/28/2022) Hunger Vital Sign Worried About Running Out of Food in the Last Year: Never true Ran Out of Food in the Last Year: Never true OBJECTIVE/PHYSICAL EXAMINATION: BP 142/76 (BP Site: Left Arm, BP Position: Sitting, BP Cuff Size: Large) | Pulse 84 | Resp 16 | Wt 114.8 kg (253 lb) | SpO2 95% | BMI 43.43 kg/m | BSA 2.28 m BP on recheck: 128/62 General: No acute distress. A+Ox3. HEENT: Normocephalic. Atraumatic. PERRL. EOMI. Conjunctiva and sclera clear. NECK: No carotid bruits. No JVD. Carotid upstrokes are brisk. Heart: RRR. S1 and S2 noted. Systolic ejection murmur. No rubs or gallops. PMI non displaced. Lungs: Diminshed, but clear to auscultation. No wheezes.No rhonchi. No rales. Abdomen: Normal bowel sounds. Soft. Nontender. No masses or organomegaly. No abdominal bruits. Obese. Extremities: 1+ bilateral lower extremity edema. No clubbing or cyanosis. Pulses: radial=2/4, posterior tibial=2/4, dorsalis pedis = 2/4. NEURO: No focal deficits. PSYCH: Appropriate affect and insight. DATA Labs & Imaging Reviewed Below: June 24, 2021 TTE: [facility] No change compared to previous study dated December 15, 2020. Study is technically limited due to poor acoustic windows. Valvular structures were not well visualized, with grossly normal Doppler interrogation. Septal motion is consistent with RV pacemaker activation. LV systolic function grossly normal on technically limited evaluation, ejection anlbckts14 to 60%. Grade 2 diastolic dysfunction. October 04, 2021 TTE: Interpretation Summary [facility] Study is technically limited due to poor acoustic windows. A contrast injection of Definity was performed to improve assessment of LV function. Normal size LV. Mild concentric LVH. Apical WMA may reflect pacemaker activation. No regional WMA's. Grossly normal LVEF, 55-60%. Moderate aortic valve sclerosis, without significant stenosis. Interatrial septum appears grossly intact. Agitated saline injection performed however study of only fair technical quality. No shunt detected. September 21, 2022 Device interrogation: Demonstrated appropriate function, 11.2 years remaining longevity. Time in AT/AF: Less than 0.1%. Atrial paced 36.3%. Ventricular paced 99.7%. December 02, 2022 Cardiac Catheterization: Coronary disease - hemodynamically significant Patent GIVENS-LAD and SVG-OM SVG-PDA known to be occluded RCA stents remain patent Diffuse disease of the alturas arteries ASSESSMENT/PLAN: 82 year old year old male Stable angina ASCVD. 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 Hypertension, controlled. Diastolic congestive heart failure, compensated Dyslipidemia. LDL cholesterol 81 mg/dL in September 2022. Hypertriglyceridemia. Triglycerides 105 mg/dL on 10/14/2021. Right carotid bruit. Carotid duplex at [facility] on October 04, 2021 with no hemodynamically significant stenosis in the bilateral common or internal carotid arteries. Symptomatic anemia, [facility] by [facility] Recurrent prostate cancer after previous brachytherapy, with obstructive voiding symptoms COPD, chronic respiratory failure with hypoxia Obstructive sleep apnea, CPAP therapy Type 2 diabetes mellitus Stage 4 chronic kidney disease Gout - stable angina and chronic shortness of breath, discussed could consider increasing Imdur or add calcium channel marciano for discomfort. Patient states pain not bothersome and would prefer to monitor at this time. - continue current medications DISPOSITION: Follow up 3 months or sooner if symptoms worsen/fail to improve. All questions were answered to the patients satisfaction. Patient advised to report to ED with any and all emergencies. The patient agrees to the above plan and will call with additional questions or concerns. Nevaeh Linda PA-C Cardiology, [address] [place] [address] I spent a total of 35 minutes on the date of service in preparation, delivery, and documentation ofthe care provided to Maurisio Beltran excluding any time spent in the performance of separately billedservices. This chart was completed in part utilizing [employer] Speech Voice Recognition Software. Grammatical errors, random word insertions, pronoun errors, and incomplete sentences are an occasional consequence of this system due to software limitations, ambient noise, and hardware issues. Any formal questions or concerns about the content, text, or information contained within the body of this dictation should be directly addressed to the provider for clarification. documented in this encounter Nursing Notes * Rosa Yun CMA - 12/13/2022 1:43 PM EDT Examination Room: 4 Name: Maurisio Beltran Date of : (1940). Reason for Visit: 1M, f/u cath 12/02/22 Interim Hospitalization(s): none Problems/Concerns: denies Chest Pain/SOB: Denies worsening CP or SOB. Reports some improvement in CP with isosorbide but still comes and goes, mostly at night. [facility] Discussed: No [facility] is a way you can talk to your provider online through e-mail. Would you like to sign up? I can activate it for you? ALREADY ACTIVE Patient was instructed to not get up on the exam table until directed and assisted by their provider; patient is to remain seated in the chair/ wheelchair/ exam table for fall prevention and safety reasons. Patient is aware to have assistance to step down off exam table with personnel. Patient voiced full comprehension of instructions. documented in this encounter Plan of Treatment Upcoming Encounters Date Type Department Care Team (Late st Contact Info) Description 12/20/2022 4:20 PM EST Office Visit Dermatology [address] [place] [address] Meron Aragon PA-C [address] [place] [address] [place] [address] 12/27/2022 11:20 AM EST Office Visit Family Medicine [address] [place] [phone] Nicola Prado MD [address] [place] [address] [place] [address] 01/04/2023 6:10 PM EST Pharmacy Pharmacy, [address] [place] [address] [place] [address] 01/28/2023 2:00 PM EST Office Visit Nephrology [address] [place] [address] ZemaVerito paiz PA-C [address] [place] [address] 03/04/2023 10:30 AM EST Office Visit Gastroenterology [address] [place] [address] Marielena Hall CRNP [address] [facility] [place] [address] 03/28/2023 9:30 AM EST Office Visit [facility]iology, [facility] [place] [address] Nevaeh Linda PA-C [address] [facility] [place] [address] 03/29/2023 12:30 PM EST Office Visit Cardiology [address] [place] [address] Blair Hannah PA-C [address] [place] [address] 04/05/2023 9:45 AM EST Office Visit Urology, [facility] [address] [place] [address] Denny Armando MD [address] [place] [address] [place] [address] 06/02/2023 11:00 AM EDT Nurse Only Ancillary [address] [place] [address] Neeraj, Nurse [address] [place] [address] 10/12/2023 11:20 AM EDT Office Visit Sleep Disorders [facility] [address] [place] [phone] Eulalia Milligan, [address] [place] [address] 10/25/2023 10:00 AM EDT Cardiac Studies Cardiology [address] [place] [address] Neeraj, Pacer Clinic [facility] [address] [place] [address] Scheduled Procedures Name Priority Associated Diagnoses Date/Ti [...] ASSESSMENT COMPLETED IN PAST YEAR FOR COPD 12/03/2023 12/02/2022 COLONOSCOPY-EVERY 5 YRS AGES 18-100 10/31/2025 10/31/2020, [...] this encounter Medical Devices Implanted Type Area Residential Builder Device Identifier Shelf Expiration Date Model / Serial / Lot Sut Steel 6 [id number] - [id number] Implanted:Qty: 6 on 07/10/2008 [place] [facility] [place]A: Chest DO NOT USE 08/14/2012 [id number] / / [id number] documented as of this encounter Visit Diagnoses Diagnosis Coronary artery disease involving alturas coronary artery of alturas heart without angina pectoris- Primary Stable angina Other and unspecified angina pectoris Cardiac pacemaker in situ Chronic heart failure with preserved ejection fraction (HCC) Dyslipidemia, goal LDL below 70 Other and unspecified hyperlipidemia HTN, goal below 130/80 Unspecified essential hypertension documented in this encounter Advance Directives Documents on File Type Date Recorded 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 No Code Status History Code Status Date [...] patient or by statute hierarchy) Care Teams Docking Saw Operator Relationship Specialty Start Date End Date Nicola Prado MD [address] [place] [address] [place] [address] PCP - General Family Medicine 06/19/21 documented as of this encounter
--- OUTSIDE RECORDS SUMMARY | 2023-02-03 20:18 | External Medical Summary | Summary of Care ---
Author Name Unknown Organization [facility] Address [address] [place] [address] Phone [phone] Care Team Providers Care Wireless Consultant Name Role Phone Nicola Prado MD Primary Care Provide r Reason for Visit * Reason Onset Date Comments Test Results 09/22/2022 Encounter Details Date Type Department Care Team (Late st Contact Info) Description 09/22/2022 Telephone Cardiology, [facility] [address] [place] [address] Blair Hannah PA-C [address] [place] [address] Test Results Allergies Active Allergy Reactions Criticality Noted Date Comments Hydromorphone High 09/20/2021 Other reaction(s): Nausea Other reaction(s): Nausea 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/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 Other reaction(s): AMS Other reaction(s): AMS Prasugrel 04/02/2016 bleeding Prednisone High 09/20/2021 Other reaction(s): INCREASE BLOOD SUGAR Other reaction(s): INCREASE BLOOD SUGAR documented as of this encounter (statuses as of 12/22/2022) Medications Medication Sig Dispensed Refills Start Date End Date Status ASPIRIN 81 MG PO CHEWIndications:U nstable angina (HCC),Chronic coronary artery disease,Difficult intubation 1 Tab Oral Daily 1 0 06/07/200 9 Active Fluticasone Propionate 50 MCG/ACT Nasal [...] flaring 454 g 1 2 Active OneTouch UltraSoft LancetsIndication s:Type 2 diabetes mellitus with hemoglobin A1c goal of less than 8.0% (HCC) Test blood sugar up to five times daily; dx E11.9 450 Each 3 2 Active OneTouch Ultra In Vitro Strip (Glucose Blood)Indications :Type 2 diabetes mellitus with hemoglobin A1c goal of less than 8.0% (HCC) 3-4 times a day 450 Strip 3 2 Active Xiidra 5 % Ophthalmic Solution instill 1 drop by ophthalmic route 2 times every day into both eyes. OK for 90 day supply. 0 2 Active NovoLOG FlexPen 100 UNIT/ML Subcutaneous Solution Pen-injector (insulin aspart)Indication s:Type 2 diabetes mellitus with hemoglobin A1c goal of less than 8.0% (HCC) 12 units with breakfast and supper PLUS correction factor of 1:25 if over 140 mg/dL 110 mL 3 3 Active Tamsulosin HCl 0.4 MG Oral Capsule [...] of insulin (FORM[facility]) Inject 1.8 mg under the skin daily. 27 mL 3 3 Active Furosemide 80 MG Oral Tablet (Lasix) Take 1 Tablet by mouth in the morning. 90 Tablet 1 3 Active oxygen IN GAS Use 2 L/min(Oxygen) as directed daily. 2.5 LPMBled through bipap And 2 LPM with exertion DME: AHP 1 Each 0 1 12/03/19 23 Discontinued(Ref ill) Sertraline HCl 50 MG Oral Tablet (Zoloft)Indicatio ns:Outbursts of anger,Current mild episode of major depressive disorder without prior episode ([facility]) Take 1 tablet by mouth daily in the morning. 30 Tablet 1 2 10/12/19 23 Discontinued(Med ication List Clean Up) Losartan Potassium 25 MG Oral Tablet (Cozaar) Take by mouth 1 Tablet in the morning. 30 Tablet 6 2 10/13/19 23 Discontinued Baclofen 20 MG Oral TabletIndications :Muscle cramps one pill three times a day as needed for tight muscles 30 Tablet 0 2 10/07/19 23 Discontinued(Pat ient preference/disco ntinuation) Simethicone 80 MG Oral Tablet Chewable (Mylicon)Indicati ons:Gastroenterit is Take by mouth 1 Tablet as needed in the morning AND 1 Tablet as needed at noon AND 1 Tablet as needed in the evening AND 1 Tablet as needed before bedtime for Gas. 100 Tablet 0 2 10/07/19 23 Discontinued Allopurinol 300 MG Oral Tablet (Zyloprim) Take 1 Tablet by mouth daily. 90 Tablet 3 2 12/18/19 23 Discontinued guaiFENesin ER 600 MG Oral Tablet Extended Release 12 Hour (Mucinex)Indicati ons:COPD exacerbation (HCC),Chronic cough Take by mouth 1 Tablet 2 times a day as needed for Congestion. Take with plenty of water. Do not cut, crush or chew 40 Tablet 2 2 10/07/19 23 Discontinued Atorvastatin Calcium 80 MG Oral Tablet (Lipitor)Indicati ons:Dyslipidemia, goal LDL below 70 Take 1 Tablet by mouth daily. 90 Tablet 2 2 10/14/19 23 Discontinued Isosorbide Mononitrate ER 30 MG Oral Tablet Extended Release 24 Hour (Imdur) Take 1 Tablet by mouth daily. In the morning. 90 Tablet 3 3 10/13/19 23 Discontinued(Ref ill) Tresiba FlexTouch 200 UNIT/ML Subcutaneous Solution Pen-injector (Insulin Degludec)Indicati ons:Type 2 diabetes mellitus with hemoglobin A1c goal of less than 8.0% (HCC) Inject 110 Units under the skin in the morning. 63 mL 3 3 10/26/19 23 Discontinued Omeprazole 20 MG Oral Capsule Delayed Release (PriLOSEC) Take 1 Capsule BY MOUTH in the morning AND 1 Capsule before bedtime. 60 Capsule 5 3 11/05/19 23 Discontinued Easy Touch Pen [place] 31G X 8 MM (Insulin Pen Needle)Indication s:Type 2 diabetes mellitus with hemoglobin A1c goal of less than 8.0% (HCC),Type 2 diabetes mellitus with stage 4 chronic kidney disease, unspecified whether senior care insulin use (HCC) Use up to six times daily with insulin. DXe11.9 600 Each 3 3 12/08/19 23 Discontinued(Ref ill) Albuterol Sulfate HFA 108 (90 Base) MCG/ACT Inhalation Aerosol SolutionIndicatio ns:COPD exacerbation (HCC),Chronic cough Inhale by mouth 2 Puffs every 4 hours as needed for Cough or Shortness of Breath. Reports doesn't help 18 g 2 3 12/02/19 23 Discontinued Etanercept 50 MG/ML Subcutaneous Solution Auto-injector (Enbrel Sureclick)Indicat ions:Polyarticula r psoriatic arthritis (HCC),H/O psoriasis Inject 50 mg under the skin once a week. 4 mL 1 3 11/13/19 23 Discontinued(Ref ill) Octreotide Acetate 50 MCG/ML Injection Solution (Sandostatin) Inject 50mcg under the skin in the morning and the evening 180 mL 1 3 11/02/19 23 Discontinued(Ref ill) BD TB Syringe 27G X 1/2" 1 ML (Tuberculin Syringe) Use twice daily to inject octreotide 180 Each 1 3 12/07/19 23 Discontinued(Ref ill) Ezetimibe 10 MG Oral Tablet (Zetia)Indication s:Dyslipidemia, goal LDL below 70,Atherosclerosi s of [place] coronary artery of [place] heart without angina pectoris Take 1 Tablet by mouth daily. 90 Tablet 3 3 10/13/19 23 Discontinued Hospital, Clinic, or Other Facility Administered [...] as of this encounter (statuses as of 12/22/2022) Active Problems Problem Noted Date Diagnosed Date Atherosclerosis of coronary artery bypass graft of [place] heart with angina pectoris 10/13/2022 Encounter for [...] urinary tract symp toms 07/13/2001 Atherosclerosis of [place] co ronary artery of [place] heart without angina pectoris Morbid obesity with BMI of 40.0-44.9, adult documented as of this encounter (statuses as of 12/22/2022) Resolved Problems Problem Noted Date Diagnosed Date [...] CASE MANAGEMENT 07/22/200812/01 Overview: Kianna Lyn, RN [phone] Examination following surgery 07/11/2008 12/31/2011 Difficult intubation 07/10/2008 021 Overview: Patient seen and examined in OR#1.Possible difficult intubation.TM distance about 5 cms.MP 3-4. Will plan FOB electively Due to current situation. EXAMINATION OF PARTICIPANT I N CLINICAL TRIAL-genomics 07/04/2008 05/30/2009 Overview: Renamed Per Clinical Trials Billing Project. Study Titile: Genomic Markers for Patients with Cardiovascular Disease Project #[id number] PI: Miriam Roque MD Please call [phone] with study related questions Chronic coronary artery [...] DM type 2, not at goal 07/04/200809/06 [employer] CARDIO RESEARCH OTHER*[id number] 07/04/2008 03/23/2016 Overview: Renamed Per Clinical Trials Billing Project. Study Titile: Genomic Markers for Patients with Cardiovascular Disease Project #[id number] PI: Miriam Roque MD Please call [phone] with study related questions Kidney disease, chronic, [...] as of this encounter (statuses as of 12/22/2022) Immunizations Name Administration Dates Next Due COVID-19 mRNA, LNP-s, No Pre serve, 2-Dose Series ([facility]) 12/09/2020,05/09/2020,04/11/2020 COVID-19, LNP-s, No Preserve , Juan [...] Miscellaneous Notes * Telephone Encounter - Rosa Yun CMA - 09/27/2022 3:45 PM EDT Pended Rx and lab orders for signature. * Telephone Encounter - Monica Lui OSA - 09/27/2022 3:38 PM EDT Patient calling in stating he is agreeable with provider and would like to be started on that medication. Please send to pharmacy as listed by [employer]. * Telephone Encounter - Yesica Mclaughlin CPhT - 09/27/2022 10:57 AM EDT Pt calling in stating the additional medication (zetia) that was being prescribed to him was never sent to pharmacy. Please advise and send script to [facility] Thank you, Yesica Mclaughlin CPhT II [employer] [facility] [facility] ([facility] (Formerly Tele[facility]) 09/27/2022, 10:58 AM * Telephone Encounter - Yaron Hernández LPN - 09/22/2022 2:41 PM EDT Sent patient a [place] message to make aware. Awaiiting reply to pend orders. ----- Message from Blair Hannah PA-C sent at 09/22/2022 7:47 AM EDT ----- LDL cholesterol above optimal goal despite 80 mg of atorvastatin. Recommend addition of ezetimibe 10 mg/day. Check a fasting lipid panel with direct LDL, AST, and ALT after being on both medications for about 3 months documented in this encounter Plan of Treatment Upcoming Encounters Date Type Department Care Team ([facility] Contact Info) Description 12/27/2022 11:20 AM EST Office Visit Family Medicine [address] [place] [phone] Nicola Prado MD [address] [place] [address] [place] [address] 01/04/2023 6:10 PM EST Pharmacy Pharmacy, [address] [place] [address] [place] [address] 01/28/2023 2:00 PM EST Office Visit Nephrology [address] [place] [address] Verito Jovel PA-C [address] [place] [address] 03/04/2023 10:30 AM EST Office Visit Gastroenterology [address] [place] [address] Marielena Hall CRNP [address] [place] [address] 03/28/2023 9:30 AM EST Office Visit Cardiology, [facility] [address] [place] [address] Nevaeh Linda PA-C [address] [place] [address] [place] [address] 03/29/2023 12:30 PM EST Office Visit Cardiology [address] [place] [address] Blair Hannah PA-C [address] [place] [address] 04/05/2023 9:45 AM EST Office Visit Urology, [facility] [address] [place] [address] Denny Armando MD [address] [place] [address] [place] [address] 05/20/2023 2:00 PM EDT Office Visit Rheumatology [address] [place] [phone] Jenni Perez CRNP [address] [place] [address] [place] [address] 06/02/2023 11:00 AM EDT Nurse Only Ancillary [address] [place] [address] Nurse Neeraj [address] [place] [address] 10/12/2023 11:20 AM EDT Office Visit Sleep Disorders Ctr [facility] [address] [facility] [place] [phone] Eulalia Milligan DO [address] [place] [address] 10/25/2023 10:00 AM EDT Cardiac Studies Cardiology [address] [place] [address] [facility] [address] [facility] [place] [address] Scheduled Orders Name Type Priority Associated Diagnoses Orde r Schedule LIPID PANEL WITH DIRECT LDL IF TG IS HIGH Lab Routine Dyslipidemia, goal LDL below 70 Atherosclerosis of [place] coronary artery of [place] heart without angina pectoris Expected: 12/28/2022 (Approximate), Expires: 09/28/2023 AST Lab Routine Dyslipidemia, goal LDL below 70 Atherosclerosis of [place] coronary artery of [place] heart without angina pectoris Expected: 12/28/2022 (Approximate), Expires: 09/28/2023 ALT Lab Routine Dyslipidemia, goal LDL below 70 Atherosclerosis of [place] coronary artery of [place] heart without angina pectoris Expected: 12/28/2022 (Approximate), Expires: 09/28/2023 Scheduled Procedures Name Priority Associated Diagnoses Date/Ti [...] this encounter Medical Devices Implanted Type Area Student Ministries Director Device Identifier Shelf Expiration Date Model / Serial / Lot Sut Steel 6 [id number] - [id number] Implanted:Qty: 6 on 07/10/2008 at OR [facility] N/A: Chest DO NOT USE 08/14/2012 [id number] / / [id number] documented as of this encounter Visit Diagnoses Diagnosis Dyslipidemia, goal LDL below 70- Primary Other and unspecified hyperlipidemia Atherosclerosis of [place] coronary artery of [place] heart without angina pectoris documented in this encounter Additional Health Concerns Infection Onset Date Last Indicated Resolved Time C. difficile Rule-Out 11/05/2022 11/05/20222022 10:17 PM EDT C. difficile 11/05/2022 11/05/2022 12/05/2022 12:2 0 AM EDT documented as of this encounter Advance Directives Documents on File Type Date Recorded Patient Chain Maker Hand Expl anation Power of Engine Head Repairer 06/26/2019 POWER OF A TTORNEY Advance Directives [...] the patient have Health Care Power of Engine Head Repairer? No Code Status History Code Status Date [...] patient or by statute hierarchy) Care Teams Wireless Consultant Relationship Specialty Start Date End Date Nicola Prado MD [address] [place] [address] [place] [address] PCP - General Family Medicine 06/19/21 documented as of this encounter
--- OUTSIDE RECORDS SUMMARY | 2023-02-03 20:18 | External Medical Summary | Summary of Care ---
Author Name Unknown Organization [facility] Address [address] [place] [address] Phone [phone] Care Team Providers Care Construction Project Coordinator Name Role Phone Nicola Prado MD Primary Care Provide r Encounter Details Date Type Department Care Team (Late st Contact Info) Description 12/24/2022 Result Scan Unspecified Department Nhan Gomes MD [address] [place] [address] <No scans attached> Allergies Active Allergy Reactions Criticality Noted Date [...] Release 12 Hour (Mucinex)Indications :COPD exacerbation ([facility]) Take 1 Tablet by [...] Hour (Imdur)Indications:C hronic diastolic heart failure ([facility]) Take 1 Tablet by [...] Each 0 12/06/2022 Active Easy Touch Pen [place] 31G X 8 MM (Insulin Pen Needle)Indications:T ype 2 diabetes mellitus with hemoglobin A1c goal of less than 8.0% ([facility]),Type 2 diabetes mellitus with stage 4 chronic kidney disease, unspecified whether prison insulin use ([facility]) Use up to eight times daily with insulin. DXe11.9 600 Each 3 12/07/2022 Active Allopurinol 300 MG Oral Tablet (Zyloprim) Take 1 Tablet by mouth daily. 90 Tablet 1 12/17/2022 Active Standing Cloud Voice Blood Glucose w/Device Kit Use as directed to test blood sugars up to four times daily DxE11.9 1 Kit 0 12/21/2022 Active Standing Cloud No Coding Blood Gluc In Vitro Strip [...] Atherosclerosis of coronary artery bypass graft of [place] heart with angina pectoris 10/13/2022 Encounter for [...] urinary tract symp toms 07/13/2001 Atherosclerosis of [place] co ronary artery of [place] heart without angina pectoris Morbid obesity with [...] use aero chamber. Test performed by Dori METAL PATTERNMAKER CPFT Body mass index (BMI) of 45. [...] CASE MANAGEMENT 07/22/200812/01 Overview: Kianna Lyn, RN [phone] Examination following surgery 07/11/2008 12/31/2011 Difficult intubation 07/10/2008 021 Overview: Patient seen and examined in OR#1.Possible difficult intubation.TM distance about 5 cms.MP 3-4. Will plan FOB electively Due to current situation. EXAMINATION OF PARTICIPANT I N CLINICAL TRIAL-genomics 07/04/2008 05/30/2009 Overview: Renamed Per Clinical Trials Billing Project. Study Titile: Genomic Markers for Patients with Cardiovascular Disease Project #[id number] PI: Miriam Roque MD Please call [phone] with study related questions Chronic coronary artery [...] not at goal 07/04/200809/06 [employer] CARDIO RESEARCH OTHER*[id number] 07/04/2008 03/23/2016 Overview: Renamed Per Clinical Trials Billing Project. Study Titile: Genomic Markers for Patients with Cardiovascular Disease Project #[id number] PI: Miriam Roque MD Please call [phone] with study related questions Kidney disease, chronic, [...] mRNA, LNP-s, No Pre serve, 2-Dose Series (Ztail) 12/09/2020,05/09/2020,04/11/2020 COVID-19, LNP-s, No Preserve , Juan [...] 11:20 AM EST Office Visit Family Medicine [address] [place] [phone] Nicola Prado MD [address] [place] [address] [place] [address] 01/04/2023 6:10 PM EST Pharmacy Pharmacy, [address] [place] [address] [place] [address] 01/28/2023 2:00 PM EST Office Visit Nephrology [address] [place] [address] ZeVerito gramajo PA-C [address] [facility] [place] [address] 03/04/2023 10:30 AM EST Office Visit Gastroenterology [address] [place] [address] Marielena Hall CRNP [address] [place] [address] 03/28/2023 9:30 AM EST Office Visit Cardiology, [facility] [address] [place] [address] Nevaeh Linda PA-C [address] [place] [address] [place] [phone] 03/29/2023 12:30 PM EST Office Visit Cardiology [address] [place] [address] Blair Hannah PA-C [address] [place] [address] 04/05/2023 9:45 AM EST Office Visit Urology, [facility] [address] [place] [address] Denny Armando MD [address] [facility] [address] [place] [address] 05/20/2023 2:00 PM EDT Office Visit Rheumatology [address] [place] [phone] Jenni Perez CRNP [address] [place] [address] [place] [address] 06/02/2023 11:00 AM EDT Nurse Only Ancillary [address] [place] [address] Neeraj, Nurse [address] [place] [address] 10/12/2023 11:20 AM EDT Office Visit Sleep Disorders Ctr [facility] [address] [place] [phone] Eulalia Milligan DO [address] [place] [address] 10/25/2023 10:00 AM EDT Cardiac Studies Cardiology [address] [place] [address] [facility] [address] [place] [address] Scheduled Procedures Name Priority Associated Diagnoses Date/Ti [...] this encounter Medical Devices Implanted Type Area Ordained Minister Device Identifier Shelf Expiration Date Model / Serial / Lot Lei Agrawal 6 [id number] - [id number] Implanted:Qty: 6 on 07/10/2008 at [place] [facility] [place]/A: Chest DO NOT USE 08/14/2012 [id number] / / [id number] documented as of this encounter Procedures Procedure Name Priority Date/Time Associated Diagnosis Comments CARDIOLOGY SCANNED RESULT 12/24/2022 documented in this encounter Results * CARDIOLOGY SCANNED RESULT (12/24/2022) 12/24/2022 Nhan Gomes MD OTHER documented in this encounter Advance Directives Documents on File Type Date Recorded Patient Furnace Builder Expl anation Power of Pulmonology Technician 06/26/2019 POWER OF A TTORNEY Advance [...] the patient have Health Care Power of Pulmonology Technician? No Code Status History Code Status [...] patient or by statute hierarchy) Care Teams Construction Project Coordinator Relationship Specialty Start Date End Date Nicola Prado MD [address] [place] [address] [place] [address] PCP - General Family Medicine 06/19/21 documented as of this encounter
--- OUTSIDE RECORDS SUMMARY | 2023-02-03 20:19 | External Medical Summary | Summary of Care ---
Author Name Unknown Organization [facility] Address [address] [place] [address] Phone [phone] Care Team Providers Care Labor Relations Manager Name Role Phone Nicola Prado MD Primary Care Provide r Reason for Visit * Reason Onset Date Comments Follow Up 12/06/2022 Encounter Details Date Type Department Care Team (Late st Contact Info) Description 12/06/2022 Telephone Gastroenterology, [facility] [address] [place] [address] Marielena Hall CRNP [address] [place] [address] Follow Up Allergies Active Allergy Reactions Criticality Noted Date Comments Hydromorphone High 09/20/2021 Other reaction(s): Nausea Other reaction(s): Nausea 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/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 Other reaction(s): AMS Other reaction(s): AMS Prasugrel 04/02/2016 bleeding Prednisone High 09/20/2021 Other reaction(s): INCREASE BLOOD SUGAR Other reaction(s): INCREASE BLOOD SUGAR documented as of this encounter (statuses as of 12/09/2022) Medications Medication Sig Dispensed Refills Start Date [...] mouth daily. 90 Tablet 3 12/16/2021 Active SplurgyTouch UltraSoft LancetsIndications :Type 2 diabetes mellitus with hemoglobin A1c goal of less than 8.0% ([facility]) Test blood sugar up to five times daily; dx E11.9 450 Each 3 12/17/2021 Active OneTouch Ultra In Vitro Strip (Glucose Blood)Indications: Type 2 diabetes mellitus with hemoglobin A1c goal of less than 8.0% ([facility]) 3-4 times a day 450 Strip 3 12/17/2021 Active Xiidra 5 % Ophthalmic Solution instill 1 drop by ophthalmic route 2 times every day into both eyes. OK for 90 day supply. 0 01/05/2022 Active NovoLOG FlexPen 100 UNIT/ML Subcutaneous Solution Pen-injector (insulin aspart)Indications :Type 2 diabetes mellitus with hemoglobin A1c goal of less than 8.0% ([facility]) 12 units with breakfast and supper PLUS [...] goal of less than 8.0% ([facility]),Type 2 diabetes mellitus with stage 4 chronic kidney disease, with long-term current use of insulin ([facility]) Inject 1.8 mg under the skin [...] goal of less than 8.0% ([facility]) Inject 100 Units under the skin [...] Base) MCG/ACT Inhalation Aerosol SolutionIndication s:COPD exacerbation ([facility]),Chronic cough Inhale 2 Puffs by mouth [...] Each 0 12/06/2022 Active Easy Touch Pen Kenney 31G X 8 MM (Insulin Pen Needle)Indications :Type 2 diabetes mellitus with hemoglobin A1c goal of less than 8.0% ([facility]),Type 2 diabetes mellitus with stage 4 chronic kidney disease, unspecified whether terminal make up operator insulin use ([facility]) Use up to six times daily with insulin. DXe11.9 600 Each 3 05/22/2022 3 Discontinue d(Refill) Hospital, Clinic, or Other Facility Administered Medication Ordered Dose Route Frequency Start Date End Date Status Albuterol Sulfate (Proventil) (2.5 MG/3ML) 0.083% inhalation solution 2.5 mgIndications:Dyspnea and respiratory abnormalities 2.5 mg NEBULIZER PRN 05/18/2022 05/18/2023 Active documented as of this encounter (statuses as of 12/09/2022) Active Problems Problem Noted Date Diagnosed Date Atherosclerosis of coronary artery bypass graft of [place] heart with angina pectoris 10/13/2022 Encounter for [...] urinary tract symp toms 07/13/2001 Atherosclerosis of [place] ronary artery of [place] heart without angina pectoris Morbid obesity with BMI of 40.0-44.9, adult documented as of this encounter (statuses as of 12/09/2022) Resolved Problems Problem Noted Date Diagnosed Date [...] TIA (transient ischemic attack) 02/04/2016 11/23/2017 Overview: [facility] Anemia of chronic renal failure 07/30/2015 01/27/2017 [...] CASE MANAGEMENT 07/22/200812/01 Overview: Kianna Lyn, RN [phone] Examination following surgery 07/11/2008 12/31/2011 Difficult intubation 07/10/2008 021 Overview: Patient seen and examined in OR#1.Possible difficult intubation.TM distance about 5 cms.MP 3-4. Will plan FOB electively Due to current situation. EXAMINATION OF PARTICIPANT I N CLINICAL TRIAL-genomics 07/04/2008 05/30/2009 Overview: Renamed Per Clinical Trials Billing Project. Study Titile: Genomic Markers for Patients with Cardiovascular Disease Project #[id number] PI: Miriam Roque MD Please call [phone] with study related questions Chronic coronary artery [...] not at goal 07/04/200809/06 GENOMICS CARDIO RESEARCH OTHER*[id number] 07/04/2008 03/23/2016 Overview: Renamed Per Clinical Trials Billing Project. Study Titile: Genomic Markers for Patients with Cardiovascular Disease Project #[id number] PI: Miriam Roque MD Please call [phone] with study related questions Kidney disease, chronic, [...] as of this encounter (statuses as of 12/09/2022) Immunizations Name Administration Dates Next Due COVID-19 [...] encounter Miscellaneous Notes * Telephone Encounter - Linette López RN - 12/07/2022 3:50 PM EDT Noted. GI sent scripts in for syringes Octreotide. It sounds like he needed additional syringes from PCP. * Telephone Encounter - KATHE Melendez - 12/07/2022 11:55 AM EDT Patient called because he needs at least 9 needles a day and patient does not have any for tomorrow. Patient was advised that he can't get them until Tuesday because patient's script says 6 a day. Patient is asking for a new script so that he can get 9 a day. * Telephone Encounter - Maddie Richardson LPN - 12/06/2022 3:52 PM EDT Please pend for 8 days from now, with upgrade, can't remember how to do this. * Telephone Encounter - Maddie Richardson LPN - 12/06/2022 3:50 PM EDT Please call pt and check and make sure that he has his syringes - issues with previous orders. documented in this encounter Plan of Treatment Upcoming Encounters Date Type Department Care Team (Late st Contact Info) Description 12/09/2022 6:10 PM EDT Pharmacy Pharmacy, [address] [place] [address] [place] [address] 12/13/2022 2:00 PM EDT Office Visit Cardiology, [facility] [address] [facility] [address] [place] [address] Nevaeh Linda PA-C [address] [place] [address] 12/20/2022 4:20 PM EST Office Visit Dermatology [address] [place] [address] Meron Aragon PA-C [address] [place] [address] [place] [address] 12/27/2022 11:20 AM EST Office Visit Family Medicine [address] [place] [phone] Nicola Prado MD [address] [place] [address] [place] [address] 01/28/2023 2:00 PM EST Office Visit Nephrology [address] [place] [address] ZemaVerito paiz PA-C [address] [place] [address] 03/04/2023 10:30 AM EST Office Visit Gastroenterology [address] [place] [address] Marielena Hall CRNP [address] [place] [address] 03/29/2023 12:30 PM EST Office Visit Cardiology [address] [place] [address] Blair Hannah PA-C [address] [place] [address] 04/05/2023 9:45 AM EST Office Visit Urology, [facility] [address] [facility] [place] [address] Denny Armando MD [address] [place] [address] 06/02/2023 11:00 AM EDT Nurse Only Ancillary [address] [place] [address] Nurse Neeraj [address] [place] [address] 10/12/2023 11:20 AM EDT Office Visit Sleep Disorders Ctr [facility] [address] [facility] [place] [phone] Eulalia Milligan DO 132 [facility] [place] [address] 10/25/2023 10:00 AM EDT Cardiac Studies Cardiology [address] [place] [address] [facility] [address] [facility] [facility] [place] [address] Scheduled Procedures Name Priority Associated Diagnoses Date/Ti me ESOPHAGOGASTRODUODENOSCOPY ( EGD), FLEXIBLE, TRANSORAL, DIAGNOSTIC Recall Henning esophagus COLONOSCOPY FLEXIBLE PROXIMAL DIAGNOSTIC Recall History of colon polyps Health Maintenance Due Date Last Done Comments Alpha-1 Antitrypsin 1960 Zoster Vaccines (1 of 2) 1961 Hepatitis B (1 of 3 - Risk 3-dose series) 2002 Henning's Esophagus Surveilance 06/24/2018 06/25/2015, 12/05/2013 DIABETES-EYE EXAM 09/18/2022 09/18/2021, , 06/03/2020, Additional history exists [...] this encounter Medical Devices Implanted Type Area Machine Shop Supervisor Device Identifier Shelf Expiration Date Model / Serial / Lot Sut Steel 6 [id number] - [id number] Implanted:Qty: 6 on 07/10/2008 at OR [facility] N/A: Chest DO NOT USE 08/14/2012 [id number] / / [id number] documented as of this encounter Advance Directives Documents on File Type Date Recorded Patient Bead Machine Operator Expl anation Power of Furniture Servicer 06/26/2019 POWER OF A TTORNEY Advance Directives [...] the patient have Health Care Power of Furniture Servicer? No Code Status History Code Status Date [...] patient or by statute hierarchy) Care Teams Labor Relations Manager Relationship Specialty Start Date End Date Nicola Prado MD [address] [place] [address] [place] [address] PCP - General Family Medicine 06/19/21 documented as of this encounter
--- OUTSIDE RECORDS SUMMARY | 2023-02-03 20:19 | External Medical Summary | Summary of Care ---
Author Name Unknown Organization [facility] Address [address] [place] [address] Phone [phone] Care Team Providers Care Weatherization Crew Leader Name Role Phone Nicola Prado MD Primary Care Provide r Reason for Visit * Reason Onset Date Comments Medication Refill 12/06/2022 Encounter Details Date Type Department Care Team (Late st Contact Info) Description 12/06/2022 Refill Gastroenterology, [facility] [address] [place] [address] Marielena Giraldo CRNP [address] [place] [address] Allergies Active Allergy Reactions Criticality Noted Date Comments Hydromorphone High 09/20/2021 Other reaction(s): Nausea Other reaction(s): Nausea 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/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 Other reaction(s): AMS Other reaction(s): AMS Prasugrel 04/02/2016 bleeding Prednisone High 09/20/2021 Other reaction(s): INCREASE BLOOD SUGAR Other reaction(s): INCREASE BLOOD SUGAR documented as of this encounter (statuses as of 12/06/2022) Medications Medication Sig Dispensed Refills Start Date [...] mouth daily. 90 Tablet 3 12/16/2021 Active Rotation MedicalTouch UltraSoft LancetsIndications :Type 2 diabetes mellitus with hemoglobin A1c goal of less than 8.0% ([facility]) Test blood sugar up to five times daily; dx E11.9 450 Each 3 12/17/2021 Active OneTouch Ultra In Vitro Strip (Glucose Blood)Indications: Type 2 diabetes mellitus with hemoglobin A1c goal of less than 8.0% ([facility]) 3-4 times a day 450 Strip 3 12/17/2021 Active Xiidra 5 % Ophthalmic Solution instill 1 drop by ophthalmic route 2 times every day into both eyes. OK for 90 day supply. 0 01/05/2022 Active NovoLOG FlexPen 100 UNIT/ML Subcutaneous Solution Pen-injector (insulin aspart)Indications :Type 2 diabetes mellitus with hemoglobin A1c goal of less than 8.0% ([facility]) 12 units with breakfast and supper [...] 15 minutes 25 Tablet 1 05/05/2022 Active Easy Touch Pen Claude 31G X 8 MM (Insulin Pen Needle)Indications :Type 2 diabetes mellitus with hemoglobin A1c goal of less than 8.0% ([facility]),Type 2 diabetes mellitus with stage 4 chronic kidney disease, unspecified whether tank terminal gauger insulin use ([facility]) Use up to six times daily with insulin. DXe11.9 600 Each 3 05/22/2022 Active Victoza 18 MG/3ML Subcutaneous Solution Pen-injector (Liraglutide)Indic ations:Type 2 diabetes mellitus with hemoglobin A1c goal of less than 8.0% ([facility]),Type 2 diabetes mellitus with stage 4 chronic kidney disease, with long-term current use of insulin ([facility]) Inject 1.8 mg under the skin [...] Extended Release 12 Hour (Mucinex)Indicatio ns:COPD exacerbation ([facility]) Take 1 Tablet by mouth 2 times a day as needed for Congestion. Take with plenty of water. Do not cut, crush or chew 40 Tablet 0 10/13/2022 Active Tresiba FlexTouch 200 UNIT/ML Subcutaneous Solution Pen-injector (Insulin Degludec)Indicatio ns:Type 2 diabetes mellitus with hemoglobin A1c goal of less than 8.0% ([facility]) Inject 100 Units under the skin [...] daily to inject octreotide 180 Each 1 09/01/2022 3 Discontinue d(Refill) BD TB Syringe 27G X 1/2" 1 ML (Tuberculin Syringe) To be used with Octreotide. 25 Each 0 12/06/2022 3 Discontinue d(Refill) Hospital, Clinic, or Other Facility Administered Medication Ordered Dose Route Frequency Start Date End Date Status Albuterol Sulfate (Proventil) (2.5 MG/3ML) 0.083% inhalation solution 2.5 mgIndications:Dyspnea and respiratory abnormalities 2.5 mg NEBULIZER PRN 05/18/2022 05/18/2023 Active documented as of this encounter (statuses as of 12/06/2022) Active Problems Problem Noted Date Diagnosed Date Atherosclerosis of coronary artery bypass graft of [place] heart with angina pectoris 10/13/2022 Encounter [...] urinary tract symp toms 07/13/2001 Atherosclerosis of [place] ronary artery of [place] heart without angina pectoris Morbid obesity with BMI of 40.0-44.9, adult documented as of this encounter (statuses as of 12/06/2022) Resolved Problems Problem Noted Date Diagnosed Date [...] use aero chamber. Test performed by Dori JAVA SCALA DEVELOPER CPFT Body mass index (BMI) of 45. [...] TIA (transient ischemic attack) 02/04/2016 11/23/2017 Overview: [facility] Anemia of chronic renal failure [...] CASE MANAGEMENT 07/22/200812/01 Overview: Kianna Lyn RN [phone] Examination following surgery 07/11/2008 12/31/2011 Difficult intubation 07/10/2008 021 Overview: Patient seen and examined in OR#1.Possible difficult intubation.TM distance about 5 cms.MP 3-4. Will plan FOB electively Due to current situation. EXAMINATION OF PARTICIPANT I N CLINICAL TRIAL-genomics 07/04/2008 05/30/2009 Overview: Renamed Per Clinical Trials Billing Project. Study Titile: Genomic Markers for Patients with Cardiovascular Disease Project #[id number] PI: Miriam Roque MD Please call [phone] with study related questions Chronic coronary artery [...] not at goal 07/04/200809/06 GENOMICS CARDIO RESEARCH OTHER*[id number] 07/04/2008 03/23/2016 Overview: Renamed Per Clinical Trials Billing Project. Study Titile: Genomic Markers for Patients with Cardiovascular Disease Project #[id number] PI: Miriam Roque MD Please call [phone] with study related questions Kidney disease, chronic, [...] as of this encounter (statuses as of 12/06/2022) Immunizations Name Administration Dates Next Due COVID-19 [...] encounter Miscellaneous Notes * Telephone Encounter - Maddie Richardson LPN - 12/06/2022 3:48 PM EDT Pt aware that syringes sent to local pharmacy. * Telephone Encounter - FRANCHESKA Collins - 12/06/2022 12:12 PM EDT Signed Prescriptions: Disp Refills BD TB Syringe 27G X 1/2" 1 ML (Tuberculin *25 Each0 Sig: To be used with Octreotide. Authorizing Provider: MARIELENA GIRALDO * Telephone Encounter - Linette López RN - 12/06/2022 12:02 PM EDT I took a call from the patient who is having issues filling his syringes and Octreotide at [facility]. He has enough vials to stay on track with his dosing, but has run out of syringes. 1 box pended to be sent to his local pharmacy as there will be a delay until he can get his medication from [facility]. documented in this encounter Plan of Treatment Upcoming Encounters Date Type Department Care Team (Late st Contact Info) Description 12/09/2022 6:10 PM EDT Pharmacy Pharmacy, [address] [place] [address] [place] [address] 12/13/2022 2:00 PM EDT Office Visit Cardiology, [facility] [address] [place] [address] Nevaeh Linda PA-C [address] [place] [address] 12/20/2022 4:20 PM EST Office Visit Dermatology [address] [place] [address] Meron Aragon PA-C [address] [place] [address] [place] [address] 12/27/2022 11:20 AM EST Office Visit Family Medicine [address] [place] [phone] Nicola Prado MD [address] [place] [address] [place] [address] 01/28/2023 2:00 PM EST Office Visit Nephrology [address] [place] [address] ZemaVerito paiz PA-C [address] [place] [address] 03/04/2023 10:30 AM EST Office Visit Gastroenterology [address] [place] [address] Marielena Giraldo CRNP [address] [place] [address] 03/29/2023 12:30 PM EST Office Visit Cardiology [address] [place] [address] Blair Hannah PA-C [address] [place] [address] 04/05/2023 9:45 AM EST Office Visit Urology, [facility] [address] [facility] [place] [address] Denny Armando MD 27 [facility] [address] [place] [address] 06/02/2023 11:00 AM EDT Nurse Only Ancillary [address] [place] [address] Nurse Neeraj [address] [place] [address] 10/12/2023 11:20 AM EDT Office Visit Sleep Disorders [facility] [address] [facility] [place] [phone] Eulalia Milligan DO 132 [facility] [place] [address] 10/25/2023 10:00 AM EDT Cardiac Studies Cardiology [address] [place] [address] [facility] 132 [facility] [place] [address] Scheduled Procedures Name Priority Associated Diagnoses Date/Ti [...] this encounter Medical Devices Implanted Type Area Log Marker Device Identifier Shelf Expiration Date Model / Serial / Lot Sut Steel 6 [id number] - [id number] Implanted:Qty: 6 on 07/10/2008 at OR [facility] N/A: Chest DO NOT USE 08/14/2012 [id number] / / [id number] documented as of this encounter Advance Directives Documents on File Type Date Recorded Patient Pegger Dobby Looms Expl anation Power of Clinical Operations Leader 06/26/2019 POWER OF A TTORNEY Advance Directives [...] the patient have Health Care Power of Clinical Operations Leader? No Code Status History Code Status Date [...] patient or by statute hierarchy) Care Teams Weatherization Crew Leader Relationship Specialty Start Date End Date Nicola Prado MD [address] [place] [address] [place] [phone] PCP - General Family Medicine 06/19/21 documented as of this encounter
--- OUTSIDE RECORDS SUMMARY | 2023-02-03 20:19 | External Medical Summary | Summary of Care ---
Author Name Unknown Organization [facility] Address [address] [place] [address] Phone [phone] Care Team Providers Care Operation Shift Supervisor Name Role Phone Nicola Prado MD Primary Care Provide r Reason for Visit * Reason Comments Outpatient Testing Encounter Details Date Type Department Care Team (Late st Contact Info) Description 12/13/2022 2:50 PM EDT Laboratory Laboratory, [facility] [address] [place] [address] [facility] [address] [place] [address] Iron deficiency anemia Allergies Active Allergy Reactions Criticality Noted Date [...] hemoglobin A1c goal of less than 8.0% ([facility]) 12 units with breakfast and [...] hemoglobin A1c goal of less than 8.0% ([facility]),Type 2 diabetes mellitus with stage 4 chronic kidney disease, with long-term current use of insulin ([facility]) Inject 1.8 mg under the [...] Extended Release 12 Hour (Mucinex)Indications :COPD exacerbation ([facility]) Take 1 Tablet by mouth 2 times a day as needed for Congestion. Take with plenty of water. Do not cut, crush or chew 40 Tablet 0 10/13/2022 Active Tresiba FlexTouch 200 UNIT/ML Subcutaneous Solution Pen-injector (Insulin Degludec)Indications :Type 2 diabetes mellitus with hemoglobin A1c goal of less than 8.0% ([facility]) Inject 100 Units under the [...] Base) MCG/ACT Inhalation Aerosol SolutionIndications: COPD exacerbation ([facility]),Chronic cough Inhale 2 Puffs by [...] Each 0 12/06/2022 Active Easy Touch Pen [place] 31G X 8 MM (Insulin Pen Needle)Indications:T ype 2 diabetes mellitus with hemoglobin A1c goal of less than 8.0% ([facility]),Type 2 diabetes mellitus with stage 4 chronic kidney disease, unspecified whether residential insulin use ([facility]) Use up to eight times [...] Atherosclerosis of coronary artery bypass graft of [place] heart with angina pectoris 10/13/2022 Encounter for [...] urinary tract symp toms 07/13/2001 Atherosclerosis of [place] co ronary artery of [place] heart without angina pectoris Morbid obesity with [...] use aero chamber. Test performed by Dori MOTOR VEHICLE EMISSIONS INSPECTOR CPFT Body mass index (BMI) of 45. [...] TIA (transient ischemic attack) 02/04/2016 11/23/2017 Overview: [facility] Anemia of chronic renal failure 07/30/2015 [...] CASE MANAGEMENT 07/22/200812/01 Overview: Kianna Lyn RN [phone] Examination following surgery 07/11/2008 12/31/2011 Difficult intubation 07/10/2008 021 Overview: Patient seen and examined in OR#1.Possible difficult intubation.TM distance about 5 cms.MP 3-4. Will plan FOB electively Due to current situation. EXAMINATION OF PARTICIPANT I N CLINICAL TRIAL-genomics 07/04/2008 05/30/2009 Overview: Renamed Per Clinical Trials Billing Project. Study Titile: Genomic Markers for Patients with Cardiovascular Disease Project #[id number] PI: Miriam Roque MD Please call [phone] with study related questions Chronic coronary artery [...] not at goal 07/04/200809/06 GENOMICS CARDIO RESEARCH OTHER*[id number] 07/04/2008 03/23/2016 Overview: Renamed Per Clinical Trials Billing Project. Study Titile: Genomic Markers for Patients with Cardiovascular Disease Project #[id number] PI: Miriam Roque MD Please call [phone] with study related questions Kidney disease, chronic, [...] mRNA, LNP-s, No Pre serve, 2-Dose Series (Gotta'go Personal Care Device) 12/09/2020,05/09/2020,04/11/2020 COVID-19, LNP-s, No Preserve , Juan [...] 12/20/2022 4:20 PM EST Office Visit Dermatology [address] [place] [address] Meron Aragon PA-C [address] [place] [address] [place] [address] 12/27/2022 11:20 AM EST Office Visit Family Medicine [address] [place] [phone] Nicola Prado MD [address] [place] [address] [place] [address] 01/04/2023 6:10 PM EST Pharmacy Pharmacy, [address] [place] [address] [place] [address] 01/28/2023 2:00 PM EST Office Visit Nephrology [address] [place] [address] ZemaVerito paiz PA-C [address] [place] [address] 03/04/2023 10:30 AM EST Office Visit Gastroenterology [address] [place] [address] Marielena Hall CRNP [address] [place] [address] 03/28/2023 9:30 AM EST Office Visit Cardiology, [facility] [address] [place] [address] Nevaeh Linda PA-C [address] [facility] [place] [phone] 03/29/2023 12:30 PM EST Office Visit Cardiology [address] [place] [address] Blair Hannah PA-C [address] [place] [address] 04/05/2023 9:45 AM EST Office Visit Urology, [facility] [address] [place] [address] Denny Armando MD [address] [place] [address] [place] [address] 06/02/2023 11:00 AM EDT Nurse Only Ancillary [address] [place] [address] Nurse Neeraj [address] [place] [address] 10/12/2023 11:20 AM EDT Office Visit Sleep Disorders Ctr [facility] [address] [place] [phone] Eulalia Milligan DO [address] [place] [address] 10/25/2023 10:00 AM EDT Cardiac Studies Cardiology [address] [place] [address] [facility] [address] [place] [address] Scheduled Procedures Name Priority Associated Diagnoses Date/Ti [...] this encounter Medical Devices Implanted Type Area Distributor Publications Device Identifier Shelf Expiration Date Model / Serial / Lot Lei Agrawal 6 [id number] - [id number] Implanted:Qty: 6 on 07/10/2008 [place] [facility] [place]: Chest DO NOT USE 08/14/2012 [id number] / / [id number] documented as of this encounter Procedures Procedure Name Priority Date/Time Associated Diagnosis Comments DIFFERENTIAL, AUTOMATED Routine 12/13/2022 2:25 PM EDT Iron deficiency anemia CBC Routine 12/13/2022 2:25 PM EDT Iron deficiency anemia CBC Routine 12/13/2022 2:25 PM EDT Iron deficiency anemia documented in this encounter Results * (ABNORMAL) DIFFERENTIAL, AUTOMATED (12/13/2022 2:25 PM EDT) WBC 13.34(H) 4.00 - 10.80 K/uL 12/13/2022 2:36 PM EDT [facility]10 Neutrophils % 73.7 40.0 - 75.0 % 12/13/2022 2:36 PM EDT [facility] [place] 57[facility]10 Lymphocytes % 13.7(L) 18.0 - 42.0 % 12/13/2022 2:36 PM EDT [facility] [place] [facility]10 Monocytes % 3.3 1.0 - 11.0 % 12/13/2022 2:36 PM EDT [facility] [place] [facility]10 Eosinophils % 8.9(H) 0.0 - 6.0 % 12/13/2022 2:36 PM EDT [facility] [place] [facility]10 Basophils % 0.4 0.0 - 2.0 % 12/13/2022 2:36 PM EDT [facility] [place] [facility]10 Absolute Neutrophils 9.82(H) 1.80 - 7.70 K/uL 12/13/2022 2:36 PM EDT [facility] [place] [facility]10 Absolute Lymphocytes 1.83 1.00 - 4.80 K/ul 12/13/2022 2:36 PM EDT [facility] [place] [facility]10 Absolute Monocytes 0.44 0.00 - 1.10 K/uL 12/13/2022 2:36 PM EDT [facility] 57-10 Absolute Eosinophils 1.19(H) 0.00 - 0.70 K/uL 12/13/2022 2:36 PM EDT [facility] [place] 57-10 Absolute Basophils 0.06 0.00 - 0.20 K/uL 12/13/2022 2:36 PM EDT [facility] [place] 57-10 Blood Venous blood specimen / Unknown Venipuncture / Unknown 12/13/2022 2:25 PM EDT 12/13/2022 2:25 PM EDT Ga Fabian DO LAB BLOOD ORDERABL ES [facility] [place] [address] 132 [place] [address] * (ABNORMAL) CBC (12/13/2022 2:25 PM EDT) WBC 13.34(H) 4.00 - 10.80 K/uL 12/13/2022 2:36 PM EDT [facility] [place] 57-10 RBC 3.93 4.50 - 5.25 M/uL 12/13/2022 2:36 PM EDT [facility] [place] 57-10 HGB 12.1(L) 14.0 - 16.8 g/dL 12/13/2022 2:36 PM EDT [facility] [place] 57-10 HCT 37.2(L) 40.0 - 48.4 % 12/13/2022 2:36 PM EDT [facility] [place] 57-10 MCV 94.7 82.0 - 99.5 fL 12/13/2022 2:36 PM EDT [facility] [place] 57-10 MCH 30.8 27.0 - 34.0 pg 12/13/2022 2:36 PM EDT [facility] [place] 57-10 MCHC 32.5 32.0 - 36.0 g/dL 12/13/2022 2:36 PM EDT [facility] [place] 57-10 RDW 15.6 11.5 - 15.5 % 12/13/2022 2:36 PM EDT [facility] [place] [facility]10 PLT 215 140 - 400 K/uL 12/13/2022 2:36 PM EDT [facility] [place] [facility]10 MPV 9.5 6.6 - 11.1 fL 12/13/2022 2:36 PM EDT [facility] [place] [facility]10 Blood Venous blood specimen / Unknown Venipuncture / Unknown 12/13/2022 2:25 PM EDT 12/13/2022 2:25 PM EDT Ga Fabian DO LAB BLOOD ORDERABL ES [facility] [place] 57-10 [address] [place] [address] documented in this encounter Visit Diagnoses Diagnosis Iron deficiency anemia Iron deficiency anemia, unspecified documented in this encounter Advance Directives Documents on File Type Date Recorded Patient Manager Ent Expl anation Power of Public Affairs Director 06/26/2019 POWER OF A TTORNEY Advance [...] patient have Health Care Power of Public Affairs Director? No Code Status History Code Status [...] patient or by statute hierarchy) Care Teams Operation Shift Supervisor Relationship Specialty Start Date End Date Nicola Prado MD [address] [place] [address] [place] [address] PCP - General Family Medicine 06/19/21 documented as of this encounter
--- OUTSIDE RECORDS SUMMARY | 2023-02-03 20:19 | External Medical Summary | Summary of Care ---
Author Name Unknown Organization [facility] Address [address] [place] [address] Phone [phone] Care Team Providers Care Field Training Manager Name Role Phone Nicola Prado MD Primary Care Provide r Reason for Visit * Reason Onset Date Comments Follow Up 12/06/2022 Encounter Details Date Type Department Care Team (Late st Contact Info) Description 12/06/2022 Telephone Gastroenterology, [facility] [address] [place] [address] Marielena Hall CRNP [address] [place] [address] Follow Up Allergies Active Allergy Reactions Criticality Noted Date Comments Hydromorphone High 09/20/2021 Other reaction(s): Nausea Other reaction(s): Nausea 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/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 Other reaction(s): AMS Other reaction(s): AMS Prasugrel 04/02/2016 bleeding Prednisone High 09/20/2021 Other reaction(s): INCREASE BLOOD SUGAR Other reaction(s): INCREASE BLOOD SUGAR documented as of this encounter (statuses as of 12/07/2022) Medications Medication Sig Dispensed Refills Start Date [...] hemoglobin A1c goal of less than 8.0% ([facility]) Test blood sugar up to [...] hemoglobin A1c goal of less than 8.0% ([facility]) 12 units with breakfast and [...] Tablet 1 05/05/2022 Active Easy Touch Pen [place] 31G X 8 MM (Insulin Pen Needle)Indications:T ype 2 diabetes mellitus with hemoglobin A1c goal of less than 8.0% ([facility]),Type 2 diabetes mellitus with stage 4 chronic kidney disease, unspecified whether rodent exterminator insulin use ([facility]) Use up to six times daily with insulin. DXe11.9 600 Each 3 05/22/2022 Active Victoza 18 MG/3ML Subcutaneous Solution Pen-injector (Liraglutide)Indicat ions:Type 2 diabetes mellitus with hemoglobin A1c goal of less than 8.0% ([facility]),Type 2 diabetes mellitus with stage 4 chronic kidney disease, with long-term current use of insulin ([facility]) Inject 1.8 mg under the [...] Extended Release 12 Hour (Mucinex)Indications :COPD exacerbation ([facility]) Take 1 Tablet by mouth 2 times a day as needed for Congestion. Take with plenty of water. Do not cut, crush or chew 40 Tablet 0 10/13/2022 Active Tresiba FlexTouch 200 UNIT/ML Subcutaneous Solution Pen-injector (Insulin Degludec)Indications :Type 2 diabetes mellitus with hemoglobin A1c goal of less than 8.0% ([facility]) Inject 100 Units under the [...] with Octreotide. 60 Each 0 12/06/2022 Active Hospital, Clinic, or Other Facility Administered Medication Ordered Dose Route Frequency Start Date End Date Status Albuterol Sulfate (Proventil) (2.5 MG/3ML) 0.083% inhalation solution 2.5 mgIndications:Dyspnea and respiratory abnormalities 2.5 mg NEBULIZER PRN 05/18/2022 05/18/2023 Active documented as of this encounter (statuses as of 12/07/2022) Active Problems Problem Noted Date Diagnosed Date Atherosclerosis of coronary artery bypass graft of [place] heart with angina pectoris 10/13/2022 Encounter for [...] urinary tract symp toms 07/13/2001 Atherosclerosis of [place] co ronary artery of [place] heart without angina pectoris Morbid obesity with BMI of 40.0-44.9, adult documented as of this encounter (statuses as of 12/07/2022) Resolved Problems Problem Noted Date Diagnosed Date [...] use aero chamber. Test performed by Dori FREIGHT CAR LOADER CPFT Body mass index (BMI) of 45. [...] (transient ischemic attack) 02/04/2016 11/23/2017 Overview: [facility] Anemia of chronic renal failure 07/30/2015 [...] MANAGEMENT 07/22/200812/01 Overview: Kianna Lyn, RN [phone] Examination following surgery 07/11/2008 12/31/2011 Difficult intubation 07/10/2008 021 Overview: Patient seen and examined in OR#1.Possible difficult intubation.TM distance about 5 cms.MP 3-4. Will plan FOB electively Due to current situation. EXAMINATION OF PARTICIPANT I N CLINICAL TRIAL-genomics 07/04/2008 05/30/2009 Overview: Renamed Per Clinical Trials Billing Project. Study Titile: Genomic Markers for Patients with Cardiovascular Disease Project #[id number] PI: Miriam Roque MD Please call [phone] with study related questions Chronic coronary artery [...] not at goal 07/04/200809/06 GENOMICS CARDIO RESEARCH OTHER*[id number] 07/04/2008 03/23/2016 Overview: Renamed Per Clinical Trials Billing Project. Study Titile: Genomic Markers for Patients with Cardiovascular Disease Project #[id number] PI: Miriam Roque MD Please call [phone] with study related questions Kidney disease, chronic, [...] as of this encounter (statuses as of 12/07/2022) Immunizations Name Administration Dates Next Due COVID-19 mRNA, LNP-s, No Pre serve, 2-Dose Series ([employer]) 12/09/2020,05/09/2020,04/11/2020 COVID-19, LNP-s, No Preserve , Juan [...] encounter Miscellaneous Notes * Telephone Encounter - KATHE Melendez - [...] Description 12/09/2022 6:10 PM EDT Pharmacy Pharmacy, [address] [place] [address] [place] [address] 12/13/2022 2:00 PM EDT Office Visit Cardiology, [facility] [address] [place] [address] Nevaeh Linda PA-C [address] [place] [address] [place] [address] 12/20/2022 4:20 PM EST Office Visit Dermatology [address] [place] [address] Meron Aragon PA-C [address] [place] [address] [place] [address] 12/27/2022 11:20 AM EST Office Visit Family Medicine [address] [place] [phone] Nicola Prado MD [address] [place] [address] [place] [address] 01/28/2023 2:00 PM EST Office Visit Nephrology [address] [place] [address] ZemaVerito paiz PA-C [address] [place] [address] 03/04/2023 10:30 AM EST Office Visit Gastroenterology [address] [place] [address] Marielena Hall CRNP [address] [place] [address] 03/29/2023 12:30 PM EST Office Visit Cardiology [address] [place] [address] Blair Hannah PA-C [address] [place] [address] 04/05/2023 9:45 AM EST Office Visit Urology, [facility] [address] [place] [address] Denny Armando MD [address] [place] [address] [place] [address] 06/02/2023 11:00 AM EDT Nurse Only Ancillary [address] [place] [address] Neeraj, Nurse [address] [place] [address] 10/12/2023 11:20 AM EDT Office Visit Sleep Disorders Ctr [facility] [address] [place] [phone] Eulalia Milligan DO [address] [place] [address] 10/25/2023 10:00 AM EDT Cardiac Studies Cardiology [address] [place] [address] [facility] [address] [place] [address] Scheduled Procedures Name Priority Associated Diagnoses Date/Ti [...] 12/20/2018, Additional history exists GFR 05/31/2023 11/29/2022, 100 07/2022, 11/03/2022, Additional history exists O2 ASSESSMENT [...] this encounter Medical Devices Implanted Type Area Motor Equipment Lieutenant Device Identifier Shelf Expiration Date Model / Serial / Lot Sut Steel 6 [id number] - [id number] Implanted:Qty: 6 on 07/10/2008 [place] [facility] [place]: Chest DO NOT USE 08/14/2012 [id number] / / [id number] documented as of this encounter Advance Directives Documents on File Type Date Recorded Patient Wood Piler Expl anation Power of Senior Qa Engineer 06/26/2019 POWER OF A TTORNEY Advance [...] the patient have Health Care Power of Senior Qa Engineer? No Code Status History Code Status [...] patient or by statute hierarchy) Care Teams Field Training Manager Relationship Specialty Start Date End Date Nicola Prado MD [address] [place] [address] [place] [address] PCP - General Family Medicine 06/19/21 documented as of this encounter
--- OUTSIDE RECORDS SUMMARY | 2023-02-03 20:19 | External Medical Summary | Summary of Care ---
Author Name Unknown Organization [facility] Address [address] [place] [address] Phone [phone] Care Team Providers Care Sugar Controller Name Role Phone Nicola Prado MD Primary Care Provide r Reason for Visit * Reason Onset Date Comments Follow Up 12/06/2022 Encounter Details Date Type Department Care Team (Late st Contact Info) Description 12/06/2022 Telephone Gastroenterology, [facility] [address] [place] [address] Marielena Hall CRNP [address] [place] [address] Follow Up Allergies Active Allergy Reactions Criticality [...] mouth daily. 90 Tablet 3 12/16/2021 Active AltheRx PharmaceuticalsTouch UltraSoft LancetsIndications :Type 2 diabetes mellitus with hemoglobin A1c goal of less than 8.0% ([facility]) Test blood sugar up to five times daily; dx E11.9 450 Each 3 12/17/2021 Active OneTouch Ultra In Vitro Strip (Glucose Blood)Indications: Type 2 diabetes mellitus with hemoglobin A1c goal of less than 8.0% ([facility]) 3-4 times a day 450 Strip 3 12/17/2021 Active Xiidra 5 % Ophthalmic Solution instill 1 drop by ophthalmic route 2 times every day into both eyes. OK for 90 day supply. 0 01/05/2022 Active NovoLOG FlexPen 100 UNIT/ML Subcutaneous Solution Pen-injector (insulin aspart)Indications :Type 2 diabetes mellitus with hemoglobin A1c goal of less than 8.0% ([facility]) 12 units with breakfast and [...] hemoglobin A1c goal of less than 8.0% ([facility]),Type 2 diabetes mellitus with stage 4 chronic kidney disease, with long-term current use of insulin ([facility]) Inject 1.8 mg under the [...] hemoglobin A1c goal of less than 8.0% ([facility]) Inject 100 Units under the [...] Base) MCG/ACT Inhalation Aerosol SolutionIndication s:COPD exacerbation ([facility]),Chronic cough Inhale 2 Puffs by [...] Each 0 12/06/2022 Active Easy Touch Pen [place] 31G X 8 MM (Insulin Pen Needle)Indications :Type 2 diabetes mellitus with hemoglobin A1c goal of less than 8.0% ([facility]),Type 2 diabetes mellitus with stage 4 chronic kidney disease, unspecified whether intermodal customer service insulin use ([facility]) Use up to six times [...] Atherosclerosis of coronary artery bypass graft of [place] heart with angina pectoris 10/13/2022 Encounter for [...] urinary tract symp toms 07/13/2001 Atherosclerosis of [place] co ronary artery of [place] heart without angina pectoris Morbid obesity with [...] TIA (transient ischemic attack) 02/04/2016 11/23/2017 Overview: [facility] Anemia of chronic renal failure [...] CASE MANAGEMENT 07/22/200812/01 Overview: Kianna Lyn, RN [phone] Examination following surgery 07/11/2008 12/31/2011 Difficult intubation 07/10/2008 021 Overview: Patient seen and examined in OR#1.Possible difficult intubation.TM distance about 5 cms.MP 3-4. Will plan FOB electively Due to current situation. EXAMINATION OF PARTICIPANT I N CLINICAL TRIAL-genomics 07/04/2008 05/30/2009 Overview: Renamed Per Clinical Trials Billing Project. Study Titile: Genomic Markers for Patients with Cardiovascular Disease Project #[id number] PI: Miriam Roque MD Please call [phone] with study related questions Chronic coronary artery [...] not at goal 07/04/200809/06 GENOMICS CARDIO RESEARCH OTHER*[id number] 07/04/2008 03/23/2016 Overview: Renamed Per Clinical Trials Billing Project. Study Titile: Genomic Markers for Patients with Cardiovascular Disease Project #[id number] PI: Miriam Roque MD Please call [phone] with study related questions Kidney disease, chronic, [...] Description 12/09/2022 6:10 PM EDT Pharmacy Pharmacy, [address] [place] [address] [place] [address] 12/13/2022 2:00 PM EDT Office Visit Cardiology, [facility] [address] [facility] [place] [address] Nevaeh Linda PA-C [address] [place] [address] 12/20/2022 4:20 PM EST Office Visit Dermatology [address] [place] [address] Meron Aragon PA-C [address] [place] [address] [place] [address] 12/27/2022 11:20 AM EST Office Visit Family Medicine [address] [place] [phone] Nicola Prado MD [address] [place] [address] [place] [address] 01/28/2023 2:00 PM EST Office Visit Nephrology [address] [place] [address] ZemaVerito paiz PA-C [address] [place] [address] 03/04/2023 10:30 AM EST Office Visit Gastroenterology [address] [place] [address] Marielena Hall CRNP [address] [place] [address] 03/29/2023 12:30 PM EST Office Visit Cardiology [address] [place] [address] Blair Hannah PA-C [address] [place] [address] 04/05/2023 9:45 AM EST Office Visit Urology, [facility] [address] [facility] [place] [address] Denny Armando MD [address] [place] [address] [place] [address] 06/02/2023 11:00 AM EDT Nurse Only Ancillary [address] [place] [address] Nurse Neeraj [address] [place] [address] 10/12/2023 11:20 AM EDT Office Visit Sleep Disorders Ctr [facility] [address] [facility] [place] [phone] Eulalia Milligan DO 132 [facility] [place] [address] 10/25/2023 10:00 AM EDT Cardiac Studies Cardiology [address] [place] [address] [facility] [address] [facility] [place] [address] Scheduled Procedures Name Priority Associated Diagnoses Date/Ti [...] this encounter Medical Devices Implanted Type Area System Development Engineer Device Identifier Shelf Expiration Date Model / Serial / Lot Sut Steel 6 [id number] - [id number] Implanted:Qty: 6 on 07/10/2008 [place] [facility] [place]A: Chest DO NOT USE 08/14/2012 [id number] / / [id number] documented as of this encounter Advance Directives Documents on File Type Date Recorded Patient Visual Developer Expl anation Power of Polisher Hand 06/26/2019 POWER OF A TTORNEY Advance Directives [...] the patient have Health Care Power of Polisher Hand? No Code Status History Code Status Date [...] patient or by statute hierarchy) Care Teams Sugar Controller Relationship Specialty Start Date End Date Nicola Prado MD [address] [place] [address] [place] [address] PCP - General Family Medicine 06/19/21 documented as of this encounter
--- OUTSIDE RECORDS SUMMARY | 2023-02-03 20:19 | External Medical Summary | Summary of Care ---
Author Name Unknown Organization [facility] Address [address] [place] [address] Phone [phone] Care Team Providers Care Repairer Engine Production Name Role Phone Nicola Prado MD Primary Care Provide r Reason for Visit * Reason Onset Date Comments Medication Refill 12/07/2022 Encounter Details Date Type Department Care Team (Late st Contact Info) Description 12/07/[address] [phone] Nicola Prado MD [address] [place] [address] [place] [phone] Medication Refill Allergies Active Allergy Reactions Criticality Noted Date [...] 90 Tablet 3 12/16/2021 Active OneTouch UltraSoft LancetsIndications :Type 2 diabetes mellitus with hemoglobin A1c goal of less than 8.0% ([facility]) Test blood sugar up to five [...] goal of less than 8.0% ([facility]) 12 units with breakfast and supper [...] goal of less than 8.0% ([facility]),Type 2 diabetes mellitus with stage 4 chronic kidney disease, with long-term current use of insulin ([facility]) Inject 1.8 mg under the skin [...] goal of less than 8.0% ([facility]) Inject 100 Units under the skin [...] Each 0 12/06/2022 Active Easy Touch Pen [place] 31G X 8 MM (Insulin Pen Needle)Indications :Type 2 diabetes mellitus with hemoglobin A1c goal of less than 8.0% ([facility]),Type 2 diabetes mellitus with stage 4 chronic kidney disease, unspecified whether custodial insulin use (HCC) Use up to eight times daily with insulin. DXe11.9 600 Each 3 12/07/2022 Active Easy Touch Pen [place] 31G X 8 MM (Insulin Pen Needle)Indications :Type 2 diabetes mellitus with hemoglobin A1c goal of less than 8.0% ([facility]),Type 2 diabetes mellitus with stage 4 chronic kidney disease, unspecified whether custodial insulin use ([facility]) Use up to six times daily [...] Atherosclerosis of coronary artery bypass graft of [place] heart with angina pectoris 10/13/2022 Encounter for [...] urinary tract symp toms 07/13/2001 Atherosclerosis of [place] co ronary artery of [place] heart without angina pectoris Morbid obesity with [...] use aero chamber. Test performed by Dori FILLER MIXER CPFT Body mass index (BMI) of 45. [...] TIA (transient ischemic attack) 02/04/2016 11/23/2017 Overview: [facility] Anemia of chronic renal failure [...] CASE MANAGEMENT 07/22/200812/01 Overview: Kianna Lyn RN [phone] Examination following surgery 07/11/2008 12/31/2011 Difficult intubation 07/10/2008 021 Overview: Patient seen and examined in OR#1.Possible difficult intubation.TM distance about 5 cms.MP 3-4. Will plan FOB electively Due to current situation. EXAMINATION OF PARTICIPANT I N CLINICAL TRIAL-genomics 07/04/2008 05/30/2009 Overview: Renamed Per Clinical Trials Billing Project. Study Titile: Genomic Markers for Patients with Cardiovascular Disease Project #[id number] PI: Miriam Roque MD Please call [phone] with study related questions Chronic coronary artery [...] not at goal 07/04/200809/06 GENOMICS CARDIO RESEARCH OTHER*[id number] 07/04/2008 03/23/2016 Overview: Renamed Per Clinical Trials Billing Project. Study Titile: Genomic Markers for Patients with Cardiovascular Disease Project #[id number] PI: Miriam Roque MD Please call [phone] with study related questions Kidney disease, chronic, [...] mRNA, LNP-s, No Pre serve, 2-Dose Series (Revision3) 12/09/2020,05/09/2020,04/11/2020 COVID-19, LNP-s, No Preserve , Juan [...] encounter Miscellaneous Notes * Telephone Encounter - Jeff Jordan RPh - 12/07/2022 12:21 PM EDT Script sent with updated directions. Thank You, Jeff Jordan, Pharm-D Clinical Pharmacist [facility] ([facility]) (Formerly Telepharmacy) [phone] 12/07/2022, 12:21 PM * Telephone Encounter - Lay Pedro CPhT - 12/07/2022 11:58 AM EDT Refugio Gallego calling to request a new rx for patients Easy Touch Pen [place] 31G X 8 MM (Insulin Pen Needle) , patient stated he is now using 8 per day Thank you, Lay Pedro Foam Rubber Mixer II [facility] ([facility]) (formerly Telepharmacy) 12/07/2022 11:59 AM documented in this encounter Plan of Treatment Upcoming Encounters Date Type Department Care Team (Late st Contact Info) Description 12/09/2022 6:10 PM EDT Pharmacy Pharmacy, [address] [place] [address] [place] [address] 12/13/2022 2:00 PM EDT Office Visit Cardiology, [facility] [address] [place] [address] Nevaeh Linda PA-C [address] [place] [address] [place] [address] 12/20/2022 4:20 PM EST Office Visit Dermatology [address] [place] [address] Meron Aragon PA-C [address] [place] [address] [place] [address] 12/27/2022 11:20 AM EST Office Visit Family Medicine [address] [place] [phone] Nicola Prado MD [address] [place] [address] [place] [address] 01/28/2023 2:00 PM EST Office Visit Nephrology [address] [place] [address] ZemaVerito paiz PA-C [address] [facility] [address] 03/04/2023 10:30 AM EST Office Visit Gastroenterology [address] [place] [address] Marielena Hall CRNP [address] [place] [address] 03/29/2023 12:30 PM EST Office Visit Cardiology [address] [place] [address] Blair Hannah PA-C [address] [place] [address] 04/05/2023 9:45 AM EST Office Visit Urology, [facility] [address] [facility] [place] [address] Denny Armando MD [address] [place] [address] 06/02/2023 11:00 AM EDT Nurse Only Ancillary [address] [place] [address] Nurse Neeraj [address] [place] [address] 10/12/2023 11:20 AM EDT Office Visit Sleep Disorders Ctr [facility] [address] [facility] [place] [phone] Eulalia Milligan DO [address] [place] [address] 10/25/2023 10:00 AM EDT Cardiac Studies Cardiology [address] [place] [address] [facility] [address] [facility] [place] [address] Scheduled Procedures Name Priority Associated Diagnoses Date/Ti [...] 05/09/2020, Additional history exists HbA1c 04/08/2023 10/06/2022, 030 10/2022, 10/22/2021, Additional history exists Albumin/Creatinine Ratio [...] this encounter Medical Devices Implanted Type Area Senior Test Engineer Device Identifier Shelf Expiration Date Model / Serial / Lot Sut Steel 6 [id number] - [id number] [place]ed:Qty: 6 [place] [facility] [place] Chest DO NOT USE 08/14/2012 [id number] / / [id number] documented as of this encounter Visit Diagnoses Diagnosis Type 2 diabetes mellitus with stage 4 chronic kidney disease, unspecified whether 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 No Code Status History Code Status Date [...] patient or by statute hierarchy) Care Teams Repairer Engine Production Relationship Specialty Start Date End Date Nicola Prado MD [address] [place] [address] [place] [address] PCP - General Family Medicine 06/19/21 documented as of this encounter
--- OUTSIDE RECORDS SUMMARY | 2023-02-03 20:19 | External Medical Summary ---
Author Name Unknown Address Unknown Organization K0G:[facility] [place] [address] [place] [address] Laboratory Report Ordering Provider Test Date Status [place] 12/13/2022 14:25:51 Final Observation Date Value Abnormality Reference (Units ) Status WBC, Total 12/13/2022 14:25:51 13.34 Above high normal 4 .00-10.80 (K/uL) Final RBC 12/13/2022 14:25:51 3.93 4.50-5.25 (M/uL) Final Hemoglobin 12/13/2022 14:25:51 12.1 Below low normal 14 .0-16.8 (g/dL) Final HCT 12/13/2022 14:25:51 37.2 Below low normal 40. 0-48.4 (%) Final MCV 12/13/2022 14:25:51 94.7 82.0-99.5 (fL) Final MCH 12/13/2022 14:25:51 30.8 27.0-34.0 (pg) Final MCHC 12/13/2022 14:25:51 32.5 32.0-36.0 (g/dL) Final RDW 12/13/2022 14:25:51 15.6 11.5-15.5 (%) Final Platelets 12/13/2022 14:25:51 215 140-400 (K /uL) Final MPV 12/13/2022 14:25:51 9.5 6.6-11.1 ( fL) Final Performing Location [facility] [place] [address] [place] [address]
--- OUTSIDE RECORDS SUMMARY | 2023-02-03 20:19 | External Medical Summary | Summary of Care ---
Author Name Unknown Organization [facility] Address [address] [place] [address] Phone [phone] Care Team Providers Care Office Rental Clerk Name Role Phone Nicola Prado MD Primary Care Provide r Reason for Visit * Reason Comments Appointment Encounter Details Date Type Department Care Team (Late st Contact Info) Description 12/09/2022 6:10 PM EDT Pharmacy Pharmacy, [address] [place] [address] [place] [address] Type 2 diabetes mellitus with hemoglobin A1c goal of less than 8.0% ([facility])* Allergies Active Allergy Reactions Criticality Noted Date [...] hemoglobin A1c goal of less than 8.0% ([facility]) 12 units with breakfast and supper PLUS [...] hemoglobin A1c goal of less than 8.0% ([facility]),Type 2 diabetes mellitus with stage 4 [...] hemoglobin A1c goal of less than 8.0% ([facility]) Inject 100 Units under the skin [...] Base) MCG/ACT Inhalation Aerosol SolutionIndications: COPD exacerbation ([facility]),Chronic cough Inhale 2 Puffs by mouth every [...] Each 0 12/06/2022 Active Easy Touch Pen [place] 31G X 8 MM (Insulin Pen Needle)Indications:T ype 2 diabetes mellitus with hemoglobin A1c goal of less than 8.0% ([facility]),Type 2 diabetes mellitus with stage 4 chronic kidney disease, unspecified whether jail insulin use ([facility]) Use up to eight times daily with [...] Atherosclerosis of coronary artery bypass graft of [place] heart with angina pectoris 10/13/2022 Encounter for [...] urinary tract symp toms 07/13/2001 Atherosclerosis of [place] co ronary artery of [place] heart without angina pectoris Morbid obesity with [...] use aero chamber. Test performed by Dori FLASH WELDING MACHINE OPERATOR CPFT Body mass index (BMI) of [...] TIA (transient ischemic attack) 02/04/2016 11/23/2017 Overview: [facility] Anemia of chronic renal failure [...] MANAGEMENT 07/22/200812/01 Overview: Kianna Lyn, RN [phone] Examination following surgery 07/11/2008 12/31/2011 Difficult intubation 07/10/2008 021 Overview: Patient seen and examined in OR#1.Possible difficult intubation.TM distance about 5 cms.MP 3-4. Will plan FOB electively Due to current situation. EXAMINATION OF PARTICIPANT I N CLINICAL TRIAL-genomics 07/04/2008 05/30/2009 Overview: Renamed Per Clinical Trials Billing Project. Study Titile: Genomic Markers for Patients with Cardiovascular Disease Project #[id number] PI: Miriam Roque MD Please call [phone] with study related questions Chronic coronary artery [...] not at goal 07/04/200809/06 GENOMICS CARDIO RESEARCH OTHER*[id number] 07/04/2008 03/23/2016 Overview: Renamed Per Clinical Trials Billing Project. Study Titile: Genomic Markers for Patients with Cardiovascular Disease Project #[id number] PI: Miriam Roque MD Please call [phone] with study related questions Kidney disease, chronic, [...] mRNA, LNP-s, No Pre serve, 2-Dose Series ([employer] 12/09/2020,05/09/2020,04/11/2020 COVID-19, LNP-s, No Preserve , Juan [...] as of this encounter Progress Notes * HARLEY Franco - 12/09/2022 8:45 AM EDT Patient Phone Numbers Sent patient MyG message to schedule [facility] appointment for diabetes management. [facility]yes [facility] will follow up again in 4 week(s). [Attempt # 2] Thank you, Mandi Lee Crisis Nurse [facility] ([facility]) 12/09/2022,8:45 AM documented in this encounter Plan of Treatment Upcoming Encounters Date Type Department Care Team (Late st Contact Info) Description 12/13/2022 2:00 PM EDT Office Visit Cardiology, [facility] 132 [facility] [place] [address] Nevaeh iLnda PA-C [address] [place] [address] 12/20/2022 4:20 PM EST Office Visit Dermatology [address] [place] [address] Meron Aragon PA-C [address] [place] [address] [place] [address] 12/27/2022 11:20 AM EST Office Visit Family Medicine [address] [place] [phone] Nicola Prado MD [address] [place] [address] [place] [address] 01/04/2023 6:10 PM EST Pharmacy Pharmacy, [address] [place] [address] [place] [address] 01/28/2023 2:00 PM EST Office Visit Nephrology [address] [place] [address] Verito Jovel PA-C [address] [place] [address] 03/04/2023 10:30 AM EST Office Visit Gastroenterology [address] [place] [address] Marielena Hall CRNP [address] [place] [address] 03/29/2023 12:30 PM EST Office Visit Cardiology [address] [place] [address] Blair Hannah PA-C [address] [place] [address] 04/05/2023 9:45 AM EST Office Visit Urology, [facility] [address] [place] [address] Denny Armando MD [address] [address] [place] [address] 06/02/2023 11:00 AM EDT Nurse Only Ancillary [address] [place] [address] Neeraj, Nurse [address] [place] [address] 10/12/2023 11:20 AM EDT Office Visit Sleep Disorders Ctr [facility] [address] [place] [phone] Eulalia Milligan DO [address] [place] [address] 10/25/2023 10:00 AM EDT Cardiac Studies Cardiology [address] [place] [address] [place], Pacer [facility] [address] [place] [address] Scheduled Procedures Name Priority Associated Diagnoses Date/Ti [...] this encounter Medical Devices Implanted Type Area Workers Compensation Adjuster Device Identifier Shelf Expiration Date Model / Serial / Lot Sut Steel 6 [id number] - [id number] Implanted:Qty: 6 on 07/10/2008 [place] [facility] [place]: Chest DO NOT USE 08/14/2012 [id number] / / [id number] documented as of this encounter Visit Diagnoses Diagnosis Type 2 diabetes mellitus with hemoglobin A1c goal of less than 8.0% ([facility])- Primary documented in this encounter Advance Directives Documents on File Type Date Recorded Patient Interactive Media Designer Expl anation Power of Cane Flume Feeding Machine Operator 06/26/2019 POWER OF A TTORNEY [...] the patient have Health Care Power of Cane Flume Feeding Machine Operator? No Code Status History Code [...] patient or by statute hierarchy) Care Teams Office Rental Clerk Relationship Specialty Start Date End Date Nicola Prado MD [address] [place] [address] [place] [address] PCP - General Family Medicine 06/19/21 documented as of this encounter
--- OUTSIDE RECORDS SUMMARY | 2023-02-03 20:19 | External Medical Summary | Summary of Care ---
Author Name Unknown Organization [facility] Address [address] [place] [address] Phone [phone] Care Team Providers Care Dry Color Mixer Name Role Phone Nicola Prado MD Primary Care Provide r Reason for Visit * Reason Onset Date Comments Follow Up 12/06/2022 Encounter Details Date Type Department Care Team (Late st Contact Info) Description 12/06/2022 Telephone Gastroenterology, [facility] [address] [place] [address] Marielena Hall CRNP [address] [place] [address] Follow Up Allergies Active Allergy Reactions Criticality [...] A1c goal of less than 8.0% ([facility]) Test blood sugar up to five times [...] A1c goal of less than 8.0% ([facility]) 12 units with breakfast and supper PLUS [...] Tablet 1 05/05/2022 Active Easy Touch Pen [place] 31G X 8 MM (Insulin Pen Needle)Indications:T ype 2 diabetes mellitus with hemoglobin A1c goal of less than 8.0% ([facility]),Type 2 diabetes mellitus with stage 4 chronic kidney disease, unspecified whether termite exterminator insulin use ([facility]) Use up to six times daily with insulin. DXe11.9 600 Each 3 05/22/2022 Active Victoza 18 MG/3ML Subcutaneous Solution Pen-injector (Liraglutide)Indicat ions:Type 2 diabetes mellitus with hemoglobin A1c goal of less than 8.0% ([facility]),Type 2 diabetes mellitus with stage 4 chronic kidney disease, with long-term current use of insulin ([facility]) Inject 1.8 mg under the skin [...] Extended Release 12 Hour (Mucinex)Indications :COPD exacerbation ([facility]) Take 1 Tablet by mouth 2 times a day as needed for Congestion. Take with plenty of water. Do not cut, crush or chew 40 Tablet 0 10/13/2022 Active Tresiba FlexTouch 200 UNIT/ML Subcutaneous Solution Pen-injector (Insulin Degludec)Indications :Type 2 diabetes mellitus with hemoglobin A1c goal of less than 8.0% ([facility]) Inject 100 Units under the skin [...] Atherosclerosis of coronary artery bypass graft of [place] heart with angina pectoris 10/13/2022 Encounter for [...] urinary tract symp toms 07/13/[address] [place] [place] co ronary artery of [place] heart without angina pectoris Morbid obesity with [...] use aero chamber. Test performed by Dori HAMMER RUNNER CPFT Body mass index (BMI) of 45. [...] (transient ischemic attack) 02/04/2016 11/23/2017 Overview: [facility] Anemia of chronic renal failure [...] MANAGEMENT 07/22/200812/01 Overview: Kianna Lyn, RN [phone] Examination following surgery 07/11/2008 12/31/2011 Difficult intubation 07/10/2008 021 Overview: Patient seen and examined in OR#1.Possible difficult intubation.TM distance about 5 cms.MP 3-4. Will plan FOB electively Due to current situation. EXAMINATION OF PARTICIPANT I N CLINICAL TRIAL-genomics 07/04/2008 05/30/2009 Overview: Renamed Per Clinical Trials Billing Project. Study Titile: Genomic Markers for Patients with Cardiovascular Disease Project #[id number] PI: Miriam Roque MD Please call [phone] with study related questions Chronic coronary artery [...] not at goal 07/04/200809/06 GENOMICS CARDIO RESEARCH OTHER*[id number] 07/04/2008 03/23/2016 Overview: Renamed Per Clinical Trials Billing Project. Study Titile: Genomic Markers for Patients with Cardiovascular Disease Project #[id number] PI: Miriam Roque MD Please call [phone] with study related questions Kidney disease, chronic, [...] mRNA, LNP-s, No Pre serve, 2-Dose Series ([employer]) 12/09/2020,05/09/2020,04/11/2020 COVID-19, LNP-s, No Preserve , Juan [...] Description 12/09/2022 6:10 PM EDT Pharmacy Pharmacy, [address] [place] [address] [place] [address] 12/13/2022 2:00 PM EDT Office Visit Cardiology, [facility] [address] [facility] [place] [address] Nevaeh Linda PA-C [address] [place] [address] [place] [address] 12/20/2022 4:20 PM EST Office Visit Dermatology [address] [place] [address] Meron Aragon PA-C [address] [place] [address] [place] [address] 12/27/2022 11:20 AM EST Office Visit Family Medicine [address] [place] [phone] Nicola Prado MD [address] [place] [address] [place] [address] 01/28/2023 2:00 PM EST Office Visit Nephrology [address] [place] [address] ZemaVerito paiz PA-C [address] [place] [address] 03/04/2023 10:30 AM EST Office Visit Gastroenterology [address] [place] [address] Marielena Hall CRNP [address] [place] [address] 03/29/2023 12:30 PM EST Office Visit Cardiology [address] [place] [address] Blair Hannah PA-C [address] [place] [address] 04/05/2023 9:45 AM EST Office Visit Urology, [facility] [address] [place] [address] Denny Armando MD [address] [place] [address] 06/02/2023 11:00 AM EDT Nurse Only Ancillary [address] [place] [address] [place], Nurse [address] [place] [address] 10/12/2023 11:20 AM EDT Office Visit Sleep Disorders Ctr [facility] [address] [place] [phone] Eulalia Milligan DO [address] [place] [address] 10/25/2023 10:00 AM EDT Cardiac Studies Cardiology [address] [place] [address] [facility] [address] [place] [address] Scheduled Procedures Name Priority Associated Diagnoses Date/Ti [...] encounter Medical Devices Implanted Type Area Corporate Aircraft Mechanic Device Identifier Shelf Expiration Date Model / Serial / Lot Sut Steel 6 [id number] - [id number] Implanted:Qty: 6 on 07[place]10[place] [facility] [place]: Chest DO NOT USE 08/14/2012 [id number] / / [id number] documented as of this encounter Advance Directives Documents on File Type Date Recorded Patient Layout Worker Expl anation Power of Accountant Helper 06/26/2019 POWER OF A TTORNEY Advance [...] the patient have Health Care Power of Accountant Helper? No Code Status History Code Status Date Activated Date Inactivated Comments Full Code 07/10/2008 6:37 PM 07/21/2008 4:52 PM This o rder reflects the patients wishes and were consensually agreed upon. Full Code 07/04/2008 2:18 PM 07/10/2008 6:30 PM Healthcare Agents on File Name Relationship [facility] Shane Beltran Adult Child Health Care Repr esentative (appointed verbally by patient or by statute hierarchy) Care Teams Dry Color Mixer Relationship Specialty Start Date End Date Nicola Prado MD [address] [place] [address] [place] [phone] PCP - General Family Medicine 06/19/21 documented as of this encounter
--- OUTSIDE RECORDS SUMMARY | 2023-02-03 20:19 | External Medical Summary | Summary of Care ---
Author Name Unknown Organization [facility] Address [address] [place] [address] Phone [phone] Care Team Providers Care Educational Institution Curator Name Role Phone Nicola Prado MD Primary Care Provide r Reason for Visit * Reason Onset Date Comments Encounter Created in Error 12/07/2022 Encounter Details Date Type Department Care Team (Late st Contact Info) Description 12/07/[address] [phone] Nicoal Prado MD [address] [place] [address] [place] [address] Encounter Created in Error Allergies Active Allergy Reactions Criticality Noted Date [...] hemoglobin A1c goal of less than 8.0% ([facility]) 12 units with breakfast and supper PLUS [...] Tablet 1 05/05/2022 Active Easy Touch Pen [place] 31G X 8 MM (Insulin Pen Needle)Indications:T ype 2 diabetes mellitus with hemoglobin A1c goal of less than 8.0% ([facility]),Type 2 diabetes mellitus with stage 4 chronic kidney disease, unspecified whether buttermaker helper insulin use ([facility]) Use up to six times daily with insulin. DXe11.9 600 Each 3 05/22/2022 Active Victoza 18 MG/3ML Subcutaneous Solution Pen-injector (Liraglutide)Indicat ions:Type 2 diabetes mellitus with hemoglobin A1c goal of less than 8.0% ([facility]),Type 2 diabetes mellitus with stage 4 chronic kidney disease, with long-term current use of insulin ([facility]) Inject 1.8 mg under the skin [...] Extended Release 12 Hour (Mucinex)Indications :COPD exacerbation ([facility]) Take 1 Tablet by mouth 2 times a day as needed for Congestion. Take with plenty of water. Do not cut, crush or chew 40 Tablet 0 10/13/2022 Active Tresiba FlexTouch 200 UNIT/ML Subcutaneous Solution Pen-injector (Insulin Degludec)Indications :Type 2 diabetes mellitus with hemoglobin A1c goal of less than 8.0% ([facility]) Inject 100 Units under the skin [...] Atherosclerosis of coronary artery bypass graft of [place] heart with angina pectoris 10/13/2022 Encounter for [...] urinary tract symp toms 07/13/2001 Atherosclerosis of [place] co ronary artery of [place] heart without angina pectoris Morbid obesity with [...] use aero chamber. Test performed by Dori PROFESSOR OF POULTRY SCIENCE CPFT Body mass index (BMI) of 45. [...] TIA (transient ischemic attack) 02/04/2016 11/23/2017 Overview: [facility] Anemia of chronic renal failure 07/30/2015 [...] MANAGEMENT 07/22/200812/01 Overview: Kianna Lyn RN [phone] Examination following surgery 07/11/2008 12/31/2011 Difficult intubation 07/10/2008 021 Overview: Patient seen and examined in OR#1.Possible difficult intubation.TM distance about 5 cms.MP 3-4. Will plan FOB electively Due to current situation. EXAMINATION OF PARTICIPANT I N CLINICAL TRIAL-genomics 07/04/2008 05/30/2009 Overview: Renamed Per Clinical Trials Billing Project. Study Titile: Genomic Markers for Patients with Cardiovascular Disease Project #[id number] PI: Miriam Roque MD Please call [phone] with study related questions Chronic coronary artery [...] not at goal 07/04/200809/06 GENOMICS CARDIO RESEARCH OTHER*[id number] 07/04/2008 03/23/2016 Overview: Renamed Per Clinical Trials Billing Project. Study Titile: Genomic Markers for Patients with Cardiovascular Disease Project #[id number] PI: Miriam Roque MD Please call [phone] with study related questions Kidney disease, chronic, [...] mRNA, LNP-s, No Pre serve, 2-Dose Series (eMithilaHaat) 12/09/2020,05/09/2020,04/11/2020 COVID-19, LNP-s, No Preserve , Juan [...] Telephone Encounter - KATHE Melendez - 12/07/2022 11:54 AM EDT error documented in this encounter Plan of Treatment Upcoming Encounters Date Type Department Care Team (Late st Contact Info) Description 12/09/2022 6:10 PM EDT Pharmacy Pharmacy, [address] [place] [address] [place] [address] 12/13/2022 2:00 PM EDT Office Visit Cardiology, [facility] [address] [facility] [place] [address] Nevaeh Linda PA-C [address] [place] [address] 12/20/2022 4:20 PM EST Office Visit Dermatology [address] [place] [address] Meron Aragon PA-C [address] [place] [address] [place] [address] 12/27/2022 11:20 AM EST Office Visit Family Medicine [address] [place] [phone] Nicola Prado MD [address] [place] [address] [place] [address] 01/28/2023 2:00 PM EST Office Visit Nephrology [address] [place] [address] Verito Jovel PA-C [address] [place], [place] [address] 03/04/2023 10:30 AM EST Office Visit Gastroenterology [address] [place] [address] Marielena Hall CRNP [address] [facility] [place] [address] 03/29/2023 12:30 PM EST Office Visit Cardiology [address] [place] [address] lBair Hannah PA-C [address] [place] [address] 04/05/2023 9:45 AM EST Office Visit Urology, [facility] [address] [place] [address] Denny Armando MD [address] [address] [place] [address] 06/02/2023 11:00 AM EDT Nurse Only Ancillary [address] [place] [address] Nurse Neeraj [address] [place] [address] 10/12/2023 11:20 AM EDT Office Visit Sleep Disorders Ctr [facility] [address] [place] [address] Eulalia Milligan DO [address] [place] [address] 10/25/2023 10:00 AM EDT Cardiac Studies Cardiology [address] [place] [address] Keith Pickard [address] [place] [address] Scheduled Procedures Name Priority Associated Diagnoses Date/Ti [...] this encounter Medical Devices Implanted Type Area Hydrology Technician Device Identifier Shelf Expiration Date Model / Serial / Lot Sut Steel 6 [id number] - [id number] Implanted:Qty: 6 on 07/10/2008 at OR [facility] N/A: Chest DO NOT USE 08/14/2012 [id number] / / [id number] documented as of this encounter Advance Directives Documents on File Type Date Recorded 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 No Code Status History Code Status Date [...] patient or by statute hierarchy) Care Teams Educational Institution Curator Relationship Specialty Start Date End Date Nicola Prado MD [address] [place] [address] [place] [address] PCP - General Family Medicine 06/19/21 documented as of this encounter
--- OUTSIDE RECORDS SUMMARY | 2023-02-03 20:19 | External Medical Summary ---
Author Name Unknown Address Unknown Organization K0G:[facility] [place] [address] [place] [id number] Laboratory Report Ordering Provider Test Date Status [place] [place] 12/13/2022 14:25:51 Final Observation Date Value Abnormality Reference (Units ) Status SYNC LEUKOCYTES IN BLOOD BY AUTOMATED COUNT 12/13/2022 14:25:51 13.34 Above high normal 4.00-10.80 (K/uL) Final Segs 12/13/2022 14:25:51 73.7 40.0-75.0 (%) Final Lymphs % 12/13/2022 14:25:51 13.7 Below low normal 18.0-42.0 (%) Final Monos 12/13/2022 14:25:51 3.3 1.0-11.0 (%) Final Eosinophils 12/13/2022 14:25:51 8.9 Above high normal 0.0-6.0 (%) Final Basos 12/13/2022 14:25:51 0.4 0.0-2.0 (%) Final Absolute Segs 12/13/2022 14:25:51 9.82 Above high normal 1.80-7.70 (K/uL) Final Lymphs, absolute 12/13/2022 14:25:51 1.83 1.00-4.80 (K/ul) Final Monos, Abs 12/13/2022 14:25:51 0.44 0.00-1.10 (K/uL) Final Eos, Abs 12/13/2022 14:25:51 1.19 Above high normal 0.00-0.70 (K/uL) Final Basos, Abs 12/13/2022 14:25:51 0.06 0.00-0.20 (K/uL) Final Performing Location [facility] [place] [address] [place] [address]
--- OUTSIDE RECORDS SUMMARY | 2023-02-03 20:20 | External Medical Summary | Summary of Care ---
Author Name Unknown Organization [facility] Address [address] [place] [address] Phone [phone] Care Team Providers Care Take Up Operator Name Role Phone Nicola Prado MD Primary Care Provide r Reason for Visit * Reason Onset Date Comments Follow Up 12/06/2022 Encounter Details Date Type Department Care Team (Late st Contact Info) Description 12/06/2022 Telephone Gastroenterology, [facility] [address] [place] [address] Marielena Giraldo CRNP [address] [place] [address] Follow Up Allergies Active Allergy Reactions Criticality [...] mouth daily. 90 Tablet 3 12/16/2021 Active OrthohubTouch UltraSoft LancetsIndications :Type 2 diabetes mellitus with hemoglobin A1c goal of less than 8.0% ([facility]) Test blood sugar up to five times daily; dx E11.9 450 Each 3 12/17/2021 Active OneTouch Ultra In Vitro Strip (Glucose Blood)Indications: Type 2 diabetes mellitus with hemoglobin A1c goal of less than 8.0% ([facility]) 3-4 times a day 450 Strip 3 12/17/2021 Active Xiidra 5 % Ophthalmic Solution instill 1 drop by ophthalmic route 2 times every day into both eyes. OK for 90 day supply. 0 01/05/2022 Active NovoLOG FlexPen 100 UNIT/ML Subcutaneous Solution Pen-injector (insulin aspart)Indications :Type 2 diabetes mellitus with hemoglobin A1c goal of less than 8.0% ([facility]) 12 units with breakfast and supper [...] Tablet 1 05/05/2022 Active Easy Touch Pen [place] 31G X 8 MM (Insulin Pen Needle)Indications :Type 2 diabetes mellitus with hemoglobin A1c goal of less than 8.0% ([facility]),Type 2 diabetes mellitus with stage 4 chronic kidney disease, unspecified whether intermediate frame tender insulin use ([facility]) Use up to six times daily with insulin. DXe11.9 600 Each 3 05/22/2022 Active Victoza 18 MG/3ML Subcutaneous Solution Pen-injector (Liraglutide)Indic ations:Type 2 diabetes mellitus with hemoglobin A1c goal of less than 8.0% ([facility]),Type 2 diabetes mellitus with stage 4 chronic kidney disease, with long-term current use of insulin ([facility]) Inject 1.8 mg under the skin [...] Extended Release 12 Hour (Mucinex)Indicatio ns:COPD exacerbation ([facility]) Take 1 Tablet by mouth 2 times a day as needed for Congestion. Take with plenty of water. Do not cut, crush or chew 40 Tablet 0 10/13/2022 Active Tresiba FlexTouch 200 UNIT/ML Subcutaneous Solution Pen-injector (Insulin Degludec)Indicatio ns:Type 2 diabetes mellitus with hemoglobin A1c goal of less than 8.0% ([facility]) Inject 100 Units under the skin [...] used with Octreotide. 25 Each 0 12/06/2022 Active BD TB Syringe 27G X 1/2" [...] Atherosclerosis of coronary artery bypass graft of [place] heart with angina pectoris 10/13/2022 Encounter for [...] urinary tract symp toms 07/13/2001 Atherosclerosis of [place] co ronary artery of [place] heart without angina pectoris Morbid obesity with [...] use aero chamber. Test performed by Dori PARTS IDENTIFICATION TECHNICIAN CPFT Body mass index (BMI) of 45. [...] MANAGEMENT 07/22/200812/01 Overview: Kianna Lyn RN [phone] Examination following surgery 07/11/2008 12/31/2011 Difficult intubation 07/10/2008 021 Overview: Patient seen and examined in OR#1.Possible difficult intubation.TM distance about 5 cms.MP 3-4. Will plan FOB electively Due to current situation. EXAMINATION OF PARTICIPANT I N CLINICAL TRIAL-genomics 07/04/2008 05/30/2009 Overview: Renamed Per Clinical Trials Billing Project. Study Titile: Genomic Markers for Patients with Cardiovascular Disease Project #[id number] PI: Miriam Roque MD Please call [phone] with study related questions Chronic coronary artery [...] not at goal 07/04/200809/06 GENOMICS CARDIO RESEARCH OTHER*[id number] 07/04/2008 03/23/2016 Overview: Renamed Per Clinical Trials Billing Project. Study Titile: Genomic Markers for Patients with Cardiovascular Disease Project #[id number] PI: Miriam Roque MD Please call [phone] with study related questions Kidney disease, chronic, [...] mRNA, LNP-s, No Pre serve, 2-Dose Series (Avtal24) 12/09/2020,05/09/2020,04/11/2020 COVID-19, LNP-s, No Preserve , Juan [...] as of this encounter Miscellaneous Notes * Addendum Note - FRANCHESKA Collins - 12/06/2022 1:18 PM EDTAddended by: MARIELENA GIRALDO on: 12/06/2022 01:18 PM Modules accepted: Orders * Telephone Encounter - FRANCHESKA Collins - 12/06/2022 1:18 PM EDT I sent Rx for TB syringes to [facility] FRANCHESKA Angulo * Telephone Encounter - Kathleen Palafox CPhT - 12/06/2022 12:58 PM EDT Pt called in for the Octreotide, we have it in stock today to ship, his needles were discontinued in our system here. He said he wants the needles to come from us with the medication, I see a script was sent to his local pharmacy, could you please send a script to us for the needles as well. Thank you Kathleen Palafox Flight Nurse III [facility] 12/06/2022,1:02 PM * Telephone Encounter - Maddie Richardson LPN - 12/06/2022 12:02 PM EDT Pt calling in this morning,upset that he can not contact the specialty pharmacy regarding his octreotide. Pt stating that he is out of needles and he has enough doses for tonight and tomorrow but needs his medication sent out. Spoke with specialty pharmacy( [facility]) , they are to call him and send out his medication and syringes once they speak with him today. In the meantime, aspen sent a short script to marielena to have filled at the local pharmacy. So he can give his injections today and tomorrow. FYI; per marielena this is ordered sub Q bid, but pt was having issues with pain at injection sites, if needed he can go down to once a day dosing. documented in this encounter Plan of Treatment Upcoming Encounters Date Type Department Care Team (Late st Contact Info) Description 12/09/2022 6:10 PM EDT Pharmacy Pharmacy, [address] [place] [address] [place] [address] 12/13/2022 2:00 PM EDT Office Visit Cardiology, [facility] [address] [facility] [place] [address] Nevaeh Linda PA-C [address] [place] [address] Mik[place] [address] 12/20/2022 4:20 PM EST Office Visit Dermatology [address] [place] [address] Meron Aragon PA-C [address] [place] [address] [place] [address] 12/27/2022 11:20 AM EST Office Visit Family Medicine [address] [place] [phone] Nicola Prado MD [address] [place] [address] [place] [address] 01/28/2023 2:00 PM EST Office Visit Nephrology [address] [place] [address] Verito Jovel PA-C [address] [place] [address] 03/04/2023 10:30 AM EST Office Visit Gastroenterology [address] [place] [address] Marielena Giraldo CRNP [address] [place] [address] 03/29/2023 12:30 PM EST Office Visit Cardiology [address] [place] [address] Blair Hannah PA-C [address] [place] [address] 04/05/2023 9:45 AM EST Office Visit Urology, [facility] [address] [place] [address] Denny Armando MD [address] [address] [place] [id number] 06/02/2023 11:00 AM EDT Nurse Only Ancillary [address] [place] [address] [place], Nurse Annual [address] [place] [address] 10/12/2023 11:20 AM EDT Office Visit Sleep Disorders Ctr [facility] [address] [place] [phone] Eulalia Milligan DO [address] [place] [address] 10/25/2023 10:00 AM EDT Cardiac Studies Cardiology [address] [place] [address] [facility] [address] [place] [address] Scheduled Procedures Name Priority Associated Diagnoses Date/Ti [...] 05/09/2020, Additional history exists HbA1c 04/08/2023 10/06/2022, 0310/2022, 10/22/2021, Additional history exists Albumin/Creatinine Ratio 04/23/2023 [...] this encounter Medical Devices Implanted Type Area Seedling Sorter Device Identifier Shelf Expiration Date Model / Serial / Lot Sut Steel 6 M654g - [id number] Implanted:Qty: 6 on 07/10/2008 [place] [facility] [place]A: Chest DO NOT USE 08/14/2012 M654G / / [id number] documented as of this encounter Advance Directives Documents on File Type Date Recorded 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 No Code Status History Code Status [...] patient or by statute hierarchy) Care Teams Take Up Operator Relationship Specialty Start Date End Date Nicola Prado MD [address] [place] [address] [place] [address] PCP - General Family Medicine 06/19/21 documented as of this encounter
--- OUTSIDE RECORDS SUMMARY | 2023-02-03 20:20 | External Medical Summary ---
Author Name Unknown Address Unknown Organization : Laboratory Report Ordering Provider Test Date Status YOAN ZAPATA 12/02/2022 10:46:07 Final Observation Date Value Abnormality Reference (Units ) Status Glucose Point of Care 12/02/2022 10:46:07 145 Above high normal 70-120 (mg/dL) Final Performing Location
--- OUTSIDE RECORDS SUMMARY | 2023-02-03 20:20 | External Medical Summary | Summary of Care ---
Author Name Unknown Organization [facility] Address [address] [place] [address] Phone [phone] Care Team Providers Care [employer] Senior Specialist Name Role Phone Nicola Prado MD Primary Care Provide r Reason for Visit * Auth/Cert Specialty Diagnoses / Procedures Referred By Souleymane t Referred To Contact Diagnoses CAD (coronary artery disease) Chest pain, unspecified type CAD (coronary artery disease) [I25.10] Chest pain, unspecified type [R07.9] Procedures CORONARY ANGIOGRAPHY W/LEFT HEART CATH CORONARY ANGIOGRAPHY W/LEFT HEART CATH Referral ID Status Reason Start Date Expiration Date Visits Re quested Visits Authorized [id number] Encounter Details Date Type Department Care Team Description 12/02/2022 Hospital Encounter CRS Waiting [facility], Cardiac Recovery Suite Waiting Unit, [address] [place] [address] Carrie Nation MD [address] [place] [address] Allergies Active Allergy Reactions Severity Noted Date Comments Hydromorphone High 09/20/2021 Other reaction(s): Nausea Other reaction(s): Nausea 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/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 Other reaction(s): AMS Other reaction(s): AMS Prasugrel 04/02/2016 bleeding Prednisone High 09/20/2021 Other reaction(s): INCREASE BLOOD SUGAR Other reaction(s): INCREASE BLOOD SUGAR documented as of this encounter (statuses as of 12/03/2022) Medications Medication Sig Dispensed Refills Start Date [...] when flaring 454 g 1 2 Active Allopurinol 300 MG Oral Tablet (Zyloprim) Take 1 Tablet by mouth daily. 90 Tablet 3 2 Active OneTouch UltraSoft LancetsIndication s:Type 2 diabetes mellitus with hemoglobin A1c goal of less than 8.0% ([facility]) Test blood sugar up to five times daily; dx E11.9 450 Each 3 2 Active OneTouch Ultra In Vitro Strip (Glucose Blood)Indications :Type 2 diabetes mellitus with hemoglobin A1c goal of less than 8.0% ([facility]) 3-4 times a day 450 Strip 3 [...] 15 minutes 25 Tablet 1 3 Active Easy Touch Pen [place] 31G X 8 MM (Insulin Pen Needle)Indication s:Type 2 diabetes mellitus with hemoglobin A1c goal of less than 8.0% ([facility]),Type 2 diabetes mellitus with stage 4 chronic kidney disease, unspecified whether fpc insulin use (HCC) Use up to six times daily with insulin. DXe11.9 600 Each 3 3 Active Victoza 18 MG/3ML Subcutaneous Solution [...] the morning. 90 Tablet 1 3 Active BD TB Syringe 27G X 1/2" 1 ML (Tuberculin Syringe) Use twice daily to inject octreotide 180 Each 1 3 Active Atorvastatin Calcium 80 MG [...] the morning. 90 Tablet 3 3 Active Enbrel SureClick 50 MG/ML Subcutaneous Solution Auto-injector (Etanercept)Indic ations:H/O psoriasis,Polyart icular psoriatic arthritis ([facility]) Inject 50 mg under the skin once a week. 4 mL 1 3 Active oxygen IN GAS Use 2 L/min(Oxygen) as directed in the morning. 2.5 LPMBled through bipap And 2 LPM with exertion. (Patient is using 2 LPM with CPAP, and 3 LPM with exertion/activ ity) DME: [facility]. 0 3 Active oxygen IN GAS Use 2 L/min(Oxygen) as directed daily. 2.5 LPMBled through bipap And 2 LPM with exertion DME: [facility] 1 Each 0 1 12/03/19 23 Discontinued(Ref ill) Octreotide Acetate 10 MG Intramuscular Kit (SandoSTATIN [place]) Inject 10 mg into a large muscle every month. 1 Kit 12 3 12/03/19 23 Discontinued Ciprofloxacin HCl 500 MG Oral Tablet (Cipro)Indication s:Diarrhea, unspecified type Take 1 Tablet by mouth in the morning and 1 Tablet before bedtime. Do all this for 10 days. 20 Tablet 0 3 12/03/19 23 Discontinued Vancomycin HCl 125 MG Oral Capsule (Vancocin) Take 1 Capsule by mouth every 6 hours. For 7 days 28 Capsule 0 3 12/03/19 23 Discontinued documented as of this encounter (statuses as of 12/03/2022) Active Problems Problem Noted Date Atherosclerosis of coronary artery bypass graft of [place] heart with angina pectoris 10/13/2022 Encounter for long-term (current) insuli n use 10/13/2022 Hypertensive heart and kidne y disease with chronic diastolic congestive heart failure and stage 4 chronic kidney disease 04/08/2022 Current mild episode of major depressive disorder without prior episode 02/22/2022 Type 2 diabetes mellitus wit h stage 4 chronic kidney disease, with long-term current use of insulin 02/22/2022 CHB (complete heart block) 02/22/2022 Prostate cancer 02/22/2022 Stage 3b chronic kidney disease 02/22/19 Plaque psoriasis 02/22/2022 HTN, goal below 140/90 01/21/2022 Macular degeneration of both eyes 2021 Anemia in stage 4 chronic kidney disease 08/07/2021 Chronic pain of right hip 07/20/2021 Leg swelling 07/20/2021 Elevated prostate specific antigen (PSA) 07/17/2021 H/O dysplastic nevus 05/14/2021 Overview: mildly atypical nevus (R central inferior upper back) Hx of nonmelanoma skin cancer 05/14/2021 Overview: basal cell carcinoma (R central superior upper back 05/05) S/P placement of cardiac pacemaker 07/10 Atrioventricular block, Mobitz type 1, W enckebach 06/09/2020 Vitamin B12 deficiency 05/30/2020 Polyarticular psoriatic arthritis 2020 Chronic respiratory failure with hypoxia 07/19/2019 COPD, group D, by GOLD 2017 classificati on 03/27/2019 Overview: Per COPD GOLD Classification Gout 02/22/2019 Overview: big toe uric acid 11.7 Chronic diastolic heart failure 02/21/19 Pulmonary hypertension 11/04/2016 Stubbs's esophagus with dysplasia 06/23 S/P primary angioplasty with coronary st ent 09/05/2013 Psoriatic arthropathy 12/16/2010 Obstructive sleep apnea of adult 011 Overview: 11/11/10 changed settings of CPAP to 13 cm [facility] REENA-inhibitor cough 01/26/2010 Vitamin D deficiency 05/14/2009 Dyslipidemia 01/27/2009 Overview: Per Lipid Taxonomy. Type 2 diabetes mellitus with hemoglobin A1c goal of less than 8.0% 12/12/2008 Overview: Per Diabetes Taxonomy. ICD-10 update of inactive term Aortocoronary bypass status 09/12/2008 Iron deficiency anemia due to chronic bl ood loss 03/02/2007 Generalized osteoarthritis 05/04/2004 Psoriasis 02/05/2002 BPH without obstruction/lower urinary tr act symptoms 07/13/2001 Atherosclerosis of [place] co ronary artery of [place] heart without angina pectoris Morbid obesity with BMI of 40.0-44.9, ad ult documented as of this encounter (statuses as of 12/03/2022) Resolved Problems Problem Noted Date Resolved Date Encounter for central line care 08/05/2021 10/26/2021 Body mass index (BMI) of 40.0 to 44.9 in adult 0 02/25/2020 03/18/2020 Overview: Per Obesity protocol - Per Obesity protocol - Per Obesity protocol - - Body mass index (BMI) of 45.0 to 49.9 in adult 1 03/30/2019 02/28/2020 Overview: Per Obesity protocol - Per Obesity protocol - - Body mass index (BMI) of 40.0 to 44.9 in adult 0 07/23/2019 01/31/2020 Overview: Per Obesity protocol - - Acute respiratory failure with hypoxemia 020 07/19/2019 Encounter for surveillance of abnormal nevi 09/1402/19/2020 Overview: Moderately atypical nevus (central upper back) COPD, group B, by GOLD 2017 classification 07/2403/28/2019 Overview: Per COPD GOLD Classification 12/13/18 In Check dial performed to assess inhaler technique: Name of inhaler Albuterol Pass: Yes at 50L/min. Encourage to take nice slow deep breaths and use aero chamber. Test performed by Dori PULP GRINDER CPFT Body mass index (BMI) of 45.0 to 49.9 in adult 0 06/26/2018 07/26/2019 Overview: Per Obesity protocol #1 - - COPD exacerbation 05/24/2018 08/15/2018 Body mass index (BMI) of 40.0 to 44.9 in adult 0 05/22/2018 06/28/2018 Overview: Per Obesity protocol #1 - - Body mass index (BMI) of 45.0 to 49.9 in adult 1 02/25/2017 05/24/2018 Overview: Per Obesity protocol #1 - Benign hypertensive heart an d kidney disease with diastolic CHF, NYHA class 2 and CKD stage 4 11/23/2017 02/19/2020 (HFpEF) heart failure with preserved ejection fr action 09/06/2017 02/19/2020 Body mass index (BMI) of 40.0 to 44.9 in adult 0 07/26/2017 12/30/2017 Overview: Per Obesity protocol #1 Body mass index (BMI) of 45.0 to 49.9 in adult 0 04/26/2017 07/28/2017 Overview: Per Obesity protocol #1 Primary hypertension 01/27/2017 02/19/2020 Type 2 diabetes mellitus wit h diabetic chronic kidney disease 11/10/2016 04/08/2022 Sinus tachycardia 11/04/2016 08/07/2018 CAPONE (dyspnea on exertion) 11/04/20162019 TIA (transient ischemic attack) 02/04/2016 11/23/2017 Overview: [facility] Anemia of chronic renal failure 07/30/2015 01/27/2017 Hypertriglyceridemia 12/25/2014 02/19/2020 COPD, moderate 10/04/2014 07/26/2018 Overview: PFT Iron deficiency anemia 04/17/2014 5 Chronic blood loss anemia 11/12/20132014 Carpal tunnel syndrome 01/23/2013 7 Cervicalgia 01/23/2013 11/10/2016 Iron deficiency anemia 05/16/2012 4 COPD, mild 08/21/2010 11/08/2014 Kidney disease, chronic, stage III (GFR 30-59 ml /min) 12/31/2009 11/11/2016 Severe obesity with body mas s index (BMI) of 35.0 to 39.9 with serious comorbidity 07/28/2009 11/02/2013 Overview: Per Obesity Protocol, #19 ICD-10 update of inactive diagnosis Type 2 diabetes mellitus wit h hemoglobin A1c goal of less than 7.0% 09/06/2008 09/06/2008 Overview: ICD-10 update of inactive term ACTIVE CASE MANAGEMENT 07/22/2008 0 Overview: Kianna Lyn, RN [phone] Examination following surgery 07/11/2008 Difficult intubation 07/10/2008 02/19/2020 Overview: Patient seen and examined in OR#1.Possible difficult intubation.TM distance about 5 cms.MP 3-4. Will plan FOB electively Due to current situation. EXAMINATION OF PARTICIPANT IN CLINICAL TRIAL-gen omics 07/04/2008 05/30/2009 Overview: Renamed Per Clinical Trials Billing Project. Study Titile: Genomic Markers for Patients with Cardiovascular Disease Project #[id number] PI: Fabienne Martinez MD Please call [phone] with study related questions Chronic coronary artery [...] 11/02/2013 DM type 2, not at goal 07/04/2008 9 GENOMICS CARDIO RESEARCH OTHER*[id number] 200803/23/2016 Overview: Renamed Per Clinical Trials Billing Project. Study Titile: Genomic Markers for Patients with Cardiovascular Disease Project #[id number] PI: Fabienne Martinez MD Please call [phone] with study related questions Kidney disease, chronic, stage III (GFR 30-59 ml /min) 07/03/2008 01/07/2009 Benign neoplasm of colon 10/10/2007 018 Overview: hyperplastic/repeat colnoscopy in 2 yrs History of tobacco use 09/20/2007 9 Migraine 11/30/2006 12/07/2017 Skin sensation disturbance 11/30/200612/07 Exertional dyspnea 11/30/2006 12/13/2019 ADVANCE DIRECTIVE INFORMATION 11/03/2006 Overview: No, Advance Directive brochure given to patient. MALIGN NEOPL PROSTATE 12/03/2003 06/07/2017 Tobacco use disorder 10/23/2001 09/20/2007 ED 03/17/2001 11/10/2016 Chest pain 11/25/2000 08/07/2018 Dermatophytosis of nail 11/25/2000 12/08/19 18 Mixed dyslipidemia 01/27/2009 Overview: Per Lipid Taxonomy. Type 2 diabetes mellitus wit h hemoglobin A1c goal of less than 7.0% 12/12/2008 Overview: Per Diabetes Taxonomy. ICD-10 update of inactive term IMPOTENCE, ORGANIC ORIGN 021 Iron deficiency anemia 2 BMI 40.0-44.9, adult 04/29/2017 Overview: Per Obesity protocol #1 CKD (chronic kidney disease), stage IV 05/29/2020 DM type 2 causing CKD stage 4 documented as of this encounter (statuses as of 12/03/2022) Immunizations Name Administration Dates Next Due COVID-19 mRNA, LNP-s, No Pre serve, 2-Dose Series ([employer] 12/09/2020,05/09/2020,04/11/2020 COVID-19, LNP-s, No Preserve , [...] drink = 0.6 oz pur e alcohol) Food Insecurity Answer Date Recorded Within the past 12 months, y ou worried that your food would run out before you got money to buy more. Never true 05/28/2022 Within the past 12 months, t he food you bought just didn't last and you didn't have money to get more. Never true 05/28/2022 Sex Assigned at Date Recorded Male 04/04/2019 11:59 AM EST Job Start Date Occupation Industry Not on file Not on file Not on file documented as of this encounter Last Filed Vital Signs Vital Sign Reading Time Taken Comments Blood Pressure 134/67 12/02/2022 3:00 PM EDT Pulse 68 12/02/2022 4:00 PM EDT Temperature 35.6 C (96.1 F) 12/02/2022 1:30 PM ED T Respiratory Rate 19 12/02/2022 4:00 PM EDT Oxygen Saturation 100% 12/02/2022 3:00 PM EDT Inhaled Oxygen Concentration - - Weight - - Height 162.6 cm (5' 4") 12/02/2022 10:11 AM EDT Body Mass Index - - documented in this encounter Discharge Instructions * Discharge Instr - AVS* FRANCHESKA Patrick - 12/02/2022 2:06 PM EDT CARDIAC RECOVERY SUITE Discharge Date: 12/02/2022 Check your Patient Education Brochure for further information. Please contact your physician, Dr. Parson of the Department of Cardiology at [phone], during business hours for any questions or test results. For after-hour emergencies call [phone] and have your doctor paged. Scheduling Services is available daily between the hours of 8:00 a.m and 9:00 p.m. by calling . The information below provides you with the instructions and the list of medications you need to betaking following discharge from the hospital. If you have any questions, please ask before leaving.Please carry this letter with you when you see your doctor in the clinic. If you have questions, you can reach us at the numbers above. Diet: heart healthy diet Progress to prescribed diet as tolerated. If nausea should occur, have clear liquids only until soft foods can be tolerated. Special Instructions: Radial Artery Catheterization Instructions for Post Care Activity: Do not use the arm we used for your procedure today. Do not lift more than 10 lbs for 3 days with arm used for procedure. A responsible adult must be with the patient for 24 hours after your procedure. Rest today but you may resume your usual activity tomorrow. Do not drive, operate any appliances and/or machinery or sign legal documents for 24 hours due to the anesthesia. You may return to work in 24 hours. You may wash the wrist with soap and water and you may shower. Do not soak the wrist in water without a waterproof bandage until the small incision is healed. If you notice bleeding, increased swelling, tingling in the fingers or pain in your forearm that is not relieved by Tylenol, please seek medical attention. If you develop a fever over 101 degrees F you should contact your medical microbiologist. It is normal to have a small amount of discomfort for up to one week following your procedure but this should continue to improve with time, not worsen. If you have any questions or are concerned with how your arm is healing, call the doctor who did your procedure at . Keep the puncture site covered with a dry bandage for 24 hours, then remove the bandage. You shouldreplace it every 24 hours or if it gets wet. This should be done until the puncture site has completely healed. Date you may return to work or school: N/A See your primary care physician (Nicola Prado MD) in 1 month(s). documented in this encounter H&P Notes * FRANCHESKA Patrick - 12/02/2022 10:51 AM EDT HISTORY & PHYSICAL INTERVAL NOTE - Cardiology Service [address] [address] History and Physical Update: Name: Maurisio Beltran Location: CATH/Cath Date: 12/02/2022 Time: 10:51 AM DATE OF HISTORY AND PHYSICAL: 12/01/2022 REFERRED BY: Nevaeh Linda PA-C Chief Complaint: chest pain I have reviewed the H&P previously performed and examined the patient today. There are no new findings noted. S/P CABG (SVG-PDA (known to be occluded), GIVENS-LAD, SVG-OM2) Physical Examination: BP: 146 mmHg/77 mmHg (12/02/22 1016) Pulse: 77 (12/02/22 1016) Temp: 36.39 C (12/02/22 1016) Resp: 16 (12/02/22 1016) SpO2: 98 % (12/02/22 1016) Cardiac: normal rate and rhythm, no murmur, gallops or rub, distant heart sounds Lungs: normal respiratory effort, lungs clear to auscultation and percussion Left Radial pulse 2+ Right Femoral pulse 2+ Right Femoral Bruit no Right DP pulse 2+ Right PT pulse 2+ IV Contrast Allergy: no Contraindications to dual anti-platelet therapy: Yes. Chronic anemia without identified source. Currently on octreotide injections. History of anemia: Yes ASA: 325 mg of ASA given if not on chronic daily ASA (ASA TO BE CHEWED IF GIVEN JUST PRIOR TO CATH) Anticoagulation: No Labs reviewed as indicated below: Latest Reference Range & Units 11/29/22 09:48 Sodium 135 - 146 mmol/L 137 Potassium 3.5 - 5.1 mmol/L 4.1 Chloride 98 - 107 mmol/L 96 (L) CO2 22 - 32 mmol/L 27 BUN 6 - 20 mg/dL 24 (H) Creatinine 0.6 - 1.2 mg/dL 1.8 (H) Estimated Glomerular Filtration Rate >=60 mL/min 37 (L) Anion Gap 7 - 15 mmol/L 14 Glucose 70 - 120 mg/dL 85 (L): Data is abnormally low (H): Data is abnormally high Latest Reference Range & Units 11/29/22 09:48 WBC 4.00 - 10.80 K/uL 12.00 (H) HGB 14.0 - 16.8 g/dL 11.9 (L) HCT 40.0 - 48.4 % 36.8 (L) MCV 82.0 - 99.5 fL 95.8 PLT 140 - 400 K/uL 238 Absolute Neutrophils 1.80 - 7.70 K/uL 8.69 (H) Absolute Lymphocytes 1.00 - 4.80 K/ul 1.62 Absolute Monocytes 0.00 - 1.10 K/uL 0.41 Absolute Eosinophils 0.00 - 0.70 K/uL 1.23 (H) Absolute Basophils 0.00 - 0.20 K/uL 0.05 (H): Data is abnormally high (L): Data is abnormally low * FRANCHESKA Willis - 12/01/2022 10:19 AM EDT H&P - Cardiology [employer] [address] [address] Name: Maurisio Belrtan Date: 12/01/2022 Time: 10:22 AM Cardiac Problems: Coronary artery disease, status post coronary bypass grafting surgery x3 in 2008, along with multiple PCIs to the RCA and patent RCA stents with 2 patent grafts by cardiac catheterization August 2016. High-degree heart block status post pacemaker placement Hypertension Dyslipidemia. HPI: Maurisio Beltran is a 82 year old male who presents today for cardiology follow up. Patient states for last month he has been having chest discomfort. Occurs almost every day, comes and goes, can last for hours at a time. Occurs both at rest and with exertion, has not noticed anything that makes it better or worse. Has more fatigue than normal. Shortness of breath has not worsened, but he has noticed his O2 drops in 80s when he is up moving around, uses oxygen sometimes when walking around. Denies edema, PND, orthopnea, lightheadedness, syncope. Follows with nephrology for recurrent ESA and hem/onc for iron deficiency anemia, has been receiving iron transfusions. He plans to go to the beach in 2 weeks for granddaughter's wedding. REVIEW OF SYSTEMS: See HPI for pertinent positives. All others negative other than those noted in the HPI. CONSTITUTIONAL: No change in weight, No weakness, + fatigue and No fevers, No sweats or chills. PULMONARY: No cough, sputum, or hemoptysis, No wheezing, No shortness or breath and No recent change in breathing. CARDIOVASCULAR: + chest pain, No dyspnea on exertion, No edema, No palpitations [...] Other reaction(s): INCREASE BLOOD SUGAR Prasugrel bleeding Past Medical History: Diagnosis Date (HFpEF) heart failure with preserved ejection fraction (HCC) Acute blood loss anemia 10/29/2020 [facility] transfused Acute exacerbation of chronic obstructive pulmonary disease (COPD) ([facility]) 05/11/2018 [facility] Altered mental status 03/31/2017 likely the [...] 11/06/2010 Hyperplastic polyps BMI 40.0-44.9, adult ([facility]) BPH without obstruction/lower urinary tract symptoms Chest pain Chest pain radiating to arm 07/22/2015 left chest pain radiating to arm, probably left rotator cuff CKD (chronic kidney disease), stage IV ([facility]) GFR 26.5 COPD, mild (HCC) 08/21/2010 COPD, moderate (HCC) 10/04/2014 PFT Coronary atherosclerosis of [place] coronary artery 07/04/2008 Admitted [facility] COVID-19 02/24/2021 Dermatophytosis of scalp or bello DM type 2 causing CKD stage 4 (HCC) DM type 2, goal A1c below 7 [...] disease, chronic, stage III (GFR 30-59 ml/min) (HCC) 06/2008 Malignant neoplasm of prostate (HCC) Prostate Mixed dyslipidemia Morbid obesity with BMI of 45.0-49.9, adult (HCC) Other psoriasis S/P primary angioplasty with coronary stent 09/05/2013 drug eluting stents to 60% RCA, other grafts open except SVG to PDA is occluded Sleep apnea CPAP Sleep apnea, obstructive Symptomatic anemia 10/29/2020 Admitted [facility] and transfused TIA (transient ischemic attack) 02/04/2016 [facility] Tubular adenoma 10/31/2020 Past Surgical History: Procedure Laterality Date BRACHYTHERAPY SEED,IRIDIUM 192 01/2004 BYPASS GRAFT ANGIOGRAPHY W/LEFT HEART CATH 09/05/2013 BYPASS GRAFT ANGIOGRAPHY W/LEFT HEART CATH performed by Aleisha Abraham MD at CARDIAC LABS [facility] BYPASS GRAFT ANGIOGRAPHY W/RIGHT+LEFT CATH Right 08/25/2016 BYPASS GRAFT ANGIOGRAPHY W/RIGHT+LEFT CATH performed by Eliseo José MD at CARDIAC LABS [facility] CABG, ARTERIAL, SINGLE 07/10/2008 CORONARY ARTERY BYPASS GRAFT USING ARTERY 1 GRAFT performed by BUDDY VILCHIS at OR [facility] CABG, ARTERY-VEIN, TWO 07/10/2008 CORONARY ARTERY BYPASS GRAFT ARTERIAL AND VENOUS 2 GRAFTS performed by BUDDY VILCHIS at OR [facility] CARDIAC CATH-CARDIOLOGY ONLY 09/05/2013 60% RCA, drug [...] 06/25/2015 adenomatous & hyperplastic polyps, repeat 3 yrs/[facility] COLONOSCOPY, DIAGNOSTIC (RECTUM) 04/20/2018 hyperplastic polyp, repeat 5 yrs/[facility] COLONOSCOPY, DIAGNOSTIC (RECTUM) 10/31/2020 adenomatous polyp, diverticulosis, repeat 3 yrs / [facility] COLONOSCOPY, REMOVE LESION, W/SNARE 06/25/2015 4 mm polyp ascending, 2 polyps in rectum, diverticulosis COMBINED RT & LEFT HEART CATHETERS 07/04/2008 RIGHT AND RETROGRADE LEFT HEART CATH performed by CANDELARIO VINES at CARDIAC LABS [facility] COMBINED RT & LEFT HEART CATHETERS 01/01/2010 RIGHT AND RETROGRADE LEFT HEART CATH performed by KAREL OBANDO at CARDIAC LABS [facility] CT HEAD/BRAIN WO CONTRAST N/A 02/04/2016 patchy [...] by Jose Eduardo Valadez MD at ENDOSCOPY [facility] EGD, FLEXIBLE, DIAGNOSTIC 06/25/2015 esophagitis/[facility] EGD, FLEXIBLE, DIAGNOSTIC N/A 11/14/2020 two large inlet patches/patchey antral gastritis/biopsies show Barretts/EGD EGD, FLEXIBLE, DIAGNOSTIC 05/22/2021 Barretts, repeat 3 yrs / [facility] EGD, FLEXIBLE, DIAGNOSTIC 06/26/2021 normal / INPT [facility] EGD, FLEXIBLE, DIAGNOSTIC 09/09/2021 mildly inflammed mucosa on bx / [facility] EGD, FLEXIBLE, DIAGNOSTIC 10/30/2020 single bleeding angiodysplastic lesion in the jejunum / INPT [facility] EGD, FLEXIBLE, W/BIOPSY 11/14/2006 mild chronic inflammation EGD, FLEXIBLE, W/BIOPSY 04/25/2008 stomach gastritis, stubbs's esophagus, recommend f/u in 2 years EGD, FLEXIBLE, W/BIOPSY 06/25/2015 stomach and duodenum normal ENDO,VIDEO ASSIST [facility] [place] 07/10/2008 ENDOSCOPY VIDEO ASSISTED [facility] [place] performed by BUDDY VILCHIS at OR [facility] FLUORO SWALLOWING FUNCTION W VIDEO CINE 11/14/2017 moderate esophageal dysmotility, no mass or stricture FLUORO UPPER GI W AIR WO KUB 06/03/2014 normal HC VENOUS DUPLEX COMPLETE BILATERAL LOWER EXTREMITY Bilateral 11/14/2017 no DVT INSERT HEART ELECTRODE, DUAL CHAMBR 06/11/2020 [facility] INSERT IA PERCUT DEVICE 07/10/2008 INSERT INTRA AORTIC BALLOON ASSIST DEVICE PERCUTANEOUS performed by FABIENNE MARTINEZ at CARDIACLABS [facility] LEFT HEART CATHETERIZATION 07/04/2008 80% mid left [...] performed by Annelise Diaz MD at OR [facility] SMALL BOWEL ENDOSCOPY W/BX 07/03/2010 await [...] 11/07/2020 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 Current Facility-Administered Medications Medication Dose Route Frequency Provider Last Rate Last Admin Albuterol Sulfate (Proventil) (2.5 MG/3ML) 0.083% inhalation solution 2.5 mg 2.5 mg Nebulizer PRN Al Mccrary PA-C Albuterol Sulfate (Proventil) (5 MG/ML) 0.5% *conc* inhalation solution 2.5 mg 2.5 mg Nebulizer Robles Mccrary PA-C Current Outpatient Medications Medication Sig Albuterol Sulfate HFA 108 (90 Base) MCG/ACT Inhalation Aerosol Solution Inhale 2 Puffs by mouth every 4 hours as needed for Cough or Shortness of Breath. Isosorbide Mononitrate ER 60 MG Oral Tablet Extended Release 24 Hour (Imdur) Take 1 Tablet by mouthin the morning. Enbrel SureClick 50 MG/ML Subcutaneous Solution Auto-injector (Etanercept) Inject 50 mg under the skin once a week. Vancomycin HCl 125 MG Oral Capsule (Vancocin) Take 1 Capsule by mouth every 6 hours. For 7 days (Patient not taking: Reported on 11/30/2022) Omeprazole 20 MG Oral Capsule Delayed Release (PriLOSEC) Take 1 Capsule BY MOUTH in the morning AND1 Capsule before bedtime. [] Ciprofloxacin HCl 500 MG Oral Tablet (Cipro) Take 1 Tablet by mouth in the morning and 1 Tablet before bedtime. Do all this for 10 days. Octreotide Acetate 50 MCG/ML Injection Solution (Sandostatin) Inject 50mcg under the skin in the morning and the evening. Octreotide Acetate 10 MG Intramuscular Kit (SandoSTATIN LAR [place]) Inject 10 mg into a large muscleevery month. Tresiba FlexTouch 200 UNIT/ML Subcutaneous Solution Pen-injector (Insulin Degludec) Inject 100 Units under the skin daily. Atorvastatin Calcium 80 MG Oral Tablet (Lipitor) Take 1 Tablet by mouth daily. guaiFENesin ER 600 MG Oral Tablet Extended Release 12 Hour (Mucinex) Take 1 Tablet by mouth 2 timesa day as needed for Congestion. Take with plenty of water. Do not cut, crush or chew BD TB Syringe 27G X 1/2" 1 ML (Tuberculin Syringe) Use twice daily to inject octreotide Furosemide 80 MG Oral Tablet (Lasix) Take 1 Tablet by mouth in the morning. Victoza 18 MG/3ML Subcutaneous Solution Pen-injector (Liraglutide) Inject 1.8 mg under the skin daily. Easy Touch Pen [place] 31G X 8 MM (Insulin Pen Needle) Use up to six times daily with insulin. DXe11.9 Nitroglycerin 0.4 MG Sublingual Tablet Sublingual (Nitrostat) 1 every 5 minutes as needed with chest pain up to 3 doses in 15 minutes Tamsulosin HCl 0.4 MG Oral Capsule (Flomax) Take 1 Capsule by mouth in the morning. NovoLOG FlexPen 100 UNIT/ML Subcutaneous Solution Pen-injector (insulin aspart) 12 units with breakfast and supper PLUS correction factor of 1:25 if over 140 mg/dL Xiidra 5 % Ophthalmic Solution instill 1 drop by ophthalmic route 2 times every day into both eyes.OK for 90 day supply. OneTouch Ultra In Vitro Strip (Glucose Blood) 3-4 times a day OneTouch UltraSoft Lancets Test blood sugar up to five times daily; dx E11.9 Allopurinol 300 MG Oral Tablet (Zyloprim) Take 1 Tablet by mouth daily. Triamcinolone Acetonide 0.1 % External Ointment (Aristocort) Apply to rash on trunk/arms/legs 2x daily (when thinner and less noticeable and less bothersome) until resolved, then when flaring Diclofenac Sodium 1 % External Gel (Voltaren) Apply topically to affected area 2 g in the morning AND 2 g before bedtime. Apply to affected area of lower back up to twice a day as needed for pain. Wash hands after.. CPAP every night at bedtime . 2 Liters Vitamin D3 125 MCG (5000 UT) Oral Capsule Take 1 Capsule by mouth in the morning. Probiotic Daily Oral Capsule Take by mouth 1 Capsule in the morning. Betamethasone Dipropionate 0.05 % External Ointment Apply 2x daily to rash on back/abdomen/arms/legs until resolved, then when flaring again Folic Acid 1 MG Oral Tablet Take 1 TabLET by mouth daily. Fluticasone Propionate 50 MCG/ACT Nasal Suspension (Flonase) Administer 2 Sprays into nostril in the morning. oxygen IN GAS Use 2 L/min(Oxygen) as directed daily. 2.5 LPMBled through bipap And 2 LPM with exertion DME: [facility] (Patient taking differently: Use 2 L/min(Oxygen) as directed in the morning. 2.5 LPMBled through bipap And 2 LPM with exertion. 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 before the [employer] bankrupted him. Passed 11/2021 from dementia Social Determinants of Health Financial Resource Strain: Not on file Food Insecurity: No Food Insecurity Worried About Running Out of Food in the Last Year: Never true Ran Out of Food in the Last Year: Never true Transportation Needs: Not on file Physical Activity: Not on file Stress: Not on file Social Connections: Not on file Intimate Partner Violence: Not on file Housing Stability: Not on file OBJECTIVE/PHYSICAL EXAMINATION: BP 126/78 | Pulse 76 | Resp 16 | Wt 115.8 kg (255 lb 4 oz) | BMI 43.81 kg/m | BSA 2.29 m General: No acute distress. A+Ox3. HEENT: Normocephalic. [...] or organomegaly. No abdominal bruits. Obese. Extremities: No edema. No clubbing or cyanosis. Pulses: radial=2/4, posterior tibial=2/4, dorsalis pedis = 2/4. NEURO: No focal deficits. PSYCH: Appropriate affect and insight. LABS: Labs reviewed as indicated below: 11/29/22 09:48 Sodium 137 Potassium 4.1 Chloride 96 (L) CO2 27 BUN 24 (H) Creatinine 1.8 (H) Estimated Glomerular Filtration Rate 37 (L) Anion Gap 14 Glucose 85 Calcium 8.9 INR 0.9 Prothrombin Time 12.8 aPTT 28 CBC Rpt ! CBC WITH WBC DIFFERENTIAL Rpt ! WBC 12.00 (H) HGB 11.9 (L) HCT 36.8 (L) MCV 95.8 PLT 238 Absolute Neutrophils 8.69 (H) Absolute Lymphocytes 1.62 Absolute Monocytes 0.41 Absolute Eosinophils 1.23 (H) Absolute Basophils 0.05 PSA 0.70 EKG 11/29/2022: AV dual-paced rhythm Abnormal ECG When compared with ECG of 24-APR-2021 09:49, Vent. rate has increased BY 10 BPM Ventricular Rate: 83 Atrial Rate: 83 TN Interval: 192 QRS Duration: 170 QT/QTc: 472/554 ms P-R-T [place]: -29 : 266 : 70 degrees Nuc Med Stress Test 11/24/2022 Abnormal stress test demonstrating a small apical infarct with mild jose-infarct ischemia, LVEF 68%. Called patient to discuss results. Recommend cardiac catheterization for further ischemic workup due to chest pain and shortness of breath DATA Labs & Imaging Reviewed Below: June 24, 2021 TTE Interpretation Summary ([facility], Dr. Rolon): No change compared to previous study dated December 15, 2020. Study is technically limited due to poor acoustic windows. Valvular structures were not well visualized, with grossly normal Doppler interrogation. Septal motion is consistent with RV pacemaker activation. LV systolic function grossly normal on technically limited evaluation, ejection fraction 55 to 60%. Grade 2 diastolic dysfunction. October 04, 2021 [facility] Study is technically limited due to poor acoustic windows. A contrast injection of Definity was performed to improve assessment of LV function. Normal size LV. Mild concentric LVH. Apical WMA may reflect pacemaker activation. No regional WMA's. Grossly normal LVEF, 55-60%. Moderate aortic valve sclerosis, without significant stenosis. Interatrial septum appears grossly intact. Agitated saline injection performed however study of onlyfair technical quality. No shunt detected. Device interrogation on September 21, 2022 demonstrated appropriate function, 11.2 years remaining longevity. Time in AT/AF: Less than 0.1%. Atrial paced 36.3%. Ventricular paced 99.7%. ASSESSMENT: 82 year old year old male Chest discomfort ASCVD. 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 Hypertension, controlled. Diastolic congestive heart failure, compensated Dyslipidemia. LDL cholesterol 48 mg/dL in September 2021 ([facility]). Hypertriglyceridemia. Triglycerides 105 mg/dL on 10/14/2021. Right carotid bruit. Carotid duplex at [facility] on October 04, 2021 with no hemodynamically significant stenosis in the bilateral common or internal carotid arteries. Symptomatic anemia, followed by [facility] Hematology/Oncology Recurrent prostate cancer after previous brachytherapy, with obstructive voiding symptoms COPD, chronic respiratory failure with hypoxia Obstructive sleep apnea, CPAP therapy Type 2 diabetes mellitus Stage 4 chronic kidney disease Gout PLAN: - chest discomfort x 1 month, occurs at rest and with exertion, due to cardiac risk factors and newchest pain, will order nuclear stress test for ischemic workup - Continue current cardiac medications as prescribed. - Scheduled for cardiac cath 12/02/2022 documented in this encounter Procedure Notes * Carrie Nation MD - 12/02/2022 1:39 PM EDT [facility] [address] CARDIAC ESTIMATING MANAGER BRIEF PROCEDURE NOTE Name: Maurisio Beltran Date: 12/02/2022 Time: 1:40 PM Location: CARDIAC LABS [facility] Date of Procedure: 12/02/2022 Pre-op Diagnosis: Abnormal stress test Post-op Diagnosis: Coronary artery disease Procedure: Coronary angiography Records Supervisor: Dr. Nation Car Customizer(s): Dr. Lamar Anesthesia: Monitored local anesthesia with sedation Additional Findings: Coronary disease - hemodynamically significant Patent GIVENS-LAD and SVG-OM SVG-PDA known to be occluded RCA stents remain patent Diffuse disease of the [place] arteries Access: Left radial artery Complications: none Condition of patient: Stable Recommendations: Aggressive medical management per outpatient cardiology. documented in this encounter Nursing Notes * Cyndi Patrick RN - 12/02/2022 10:53 AM EDT Pt unable to verify med list, pt has a home health nurse that lays out his medications due to his poor vision. 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 Luciano made aware. documented in this encounter Miscellaneous Notes * Communication - Praneeth Lamar MD - 12/02/2022 12:00 PM EDT INFORMED CONSENT FOR CARDIAC CATH AND INTERVENTIONAL PROCEDURES: Dr. Nation discussed with patient the alternatives to cardiac cath including medical therapy and if appropriate exercise testing. Dr. Nation discussed the risks of cath including 04/999 , WI, CVA and 2/100 risk of allergic reaction, bleeding, infection, arrhythmia requiring shock, damage to artery requiring surgery or amputation, radiation skin manuel. Dr. Nation discussed technique of catheterization. the patient indicated understanding and a preference for proceeding with catheterization considering these factors. Dr. Nation discussed with the patient coronary intervention and alternatives including bypass surgery and medical therapy. Dr. Nation discussed the risks of intervention including 5-10% risk of WI, 5% risk of bleeding possibly requiring transfusion, 1% risk of , 1% risk of emergency CABG, and 20-30% risk of restenosis, and the chance that even a successfulprocedure will not relieve symptoms if they are not due to cardiac ischemia. The patient would like to have ad hoc intervention done at the time of the catheterization if it seems appropriate. * Communication - Praneeth Lamar MD - 12/02/2022 6:11 AM EDT PROGRESS NOTE - Interventional Cardiology [facility]-[address] [id number] Name: Maurisio Beltran Date: 12/02/2022 Time: 6:11 AM Name: Maurisio Beltran Referring Provider: Nevaeh Linda PA-C [facility]: [id number] Referring Diesel Mechanic: n/a Procedure Requested: Left heart cath, Coronary angiography Indication for Cath: Suspected CAD Worsening Angina Medical History Medication List (+) DM, if yes, what meds: insulin Prior to Admission medications Medication Sig Last Dose Discont. Albuterol Sulfate HFA 108 (90 Base) MCG/ACT Inhalation Aerosol Solution Inhale 2 Puffs by mouth every 4 hours as needed for Cough or Shortness of Breath. Isosorbide Mononitrate ER 60 MG Oral Tablet Extended Release 24 Hour (Imdur) Take 1 Tablet by mouthin the morning. Enbrel SureClick 50 MG/ML Subcutaneous Solution Auto-injector (Etanercept) Inject 50 mg under the skin once a week. Vancomycin HCl 125 MG Oral Capsule (Vancocin) Take 1 Capsule by mouth every 6 hours. For 7 days Patient not taking: Reported on 11/30/2022 Omeprazole 20 MG Oral Capsule Delayed Release (PriLOSEC) Take 1 Capsule BY MOUTH in the morning AND1 Capsule before bedtime. Ciprofloxacin HCl 500 MG Oral Tablet (Cipro) Take 1 Tablet by mouth in the morning and 1 Tablet before bedtime. Do all this for 10 days. Octreotide Acetate 50 MCG/ML Injection Solution (Sandostatin) Inject 50mcg under the skin in the morning and the evening. Octreotide Acetate 10 MG Intramuscular Kit (SandoSTATIN LAR [place]) Inject 10 mg into a large muscleevery month. Tresiba FlexTouch 200 UNIT/ML Subcutaneous Solution Pen-injector (Insulin Degludec) Inject 100 Units under the skin daily. Atorvastatin Calcium 80 MG Oral Tablet (Lipitor) Take 1 Tablet by mouth daily. guaiFENesin ER 600 MG Oral Tablet Extended Release 12 Hour (Mucinex) Take 1 Tablet by mouth 2 timesa day as needed for Congestion. Take with plenty of water. Do not cut, crush or chew BD TB Syringe 27G X 1/2" 1 ML (Tuberculin Syringe) Use twice daily to inject octreotide Furosemide 80 MG Oral Tablet (Lasix) Take 1 Tablet by mouth in the morning. Victoza 18 MG/3ML Subcutaneous Solution Pen-injector (Liraglutide) Inject 1.8 mg under the skin daily. Easy Touch Pen [place] 31G X 8 MM (Insulin Pen Needle) Use up to six times daily with insulin. DXe11.9 Nitroglycerin 0.4 MG Sublingual Tablet Sublingual (Nitrostat) 1 every 5 minutes as needed with chest pain up to 3 doses in 15 minutes Tamsulosin HCl 0.4 MG Oral Capsule (Flomax) Take 1 Capsule by mouth in the morning. NovoLOG FlexPen 100 UNIT/ML Subcutaneous Solution Pen-injector (insulin aspart) 12 units with breakfast and supper PLUS correction factor of 1:25 if over 140 mg/dL Xiidra 5 % Ophthalmic Solution instill 1 drop by ophthalmic route 2 times every day into both eyes.OK for 90 day supply. OneTouch Ultra In Vitro Strip (Glucose Blood) 3-4 times a day OneTouch UltraSoft Lancets Test blood sugar up to five times daily; dx E11.9 Allopurinol 300 MG Oral Tablet (Zyloprim) Take 1 Tablet by mouth daily. Triamcinolone Acetonide 0.1 % External Ointment (Aristocort) Apply to rash on trunk/arms/legs 2x daily (when thinner and less noticeable and less bothersome) until resolved, then when flaring Diclofenac Sodium 1 % External Gel (Voltaren) Apply topically to affected area 2 g in the morning AND 2 g before bedtime. Apply to affected area of lower back up to twice a day as needed for pain. Wash hands after.. CPAP every night at bedtime . 2 Liters Vitamin D3 125 MCG (5000 UT) Oral Capsule Take 1 Capsule by mouth in the morning. Probiotic Daily Oral Capsule Take by mouth 1 Capsule in the morning. Betamethasone Dipropionate 0.05 % External Ointment Apply 2x daily to rash on back/abdomen/arms/legs until resolved, then when flaring again Folic Acid 1 MG Oral Tablet Take 1 TabLET by mouth daily. Fluticasone Propionate 50 MCG/ACT Nasal Suspension (Flonase) Administer 2 Sprays into nostril in the morning. oxygen IN GAS Use 2 L/min(Oxygen) as directed daily. 2.5 LPMBled through bipap And 2 LPM with exertion DME: [facility] Patient taking differently: Use 2 L/min(Oxygen) as directed in the morning. 2.5 LPMBled through bipap And 2 LPM with exertion. (Patient is using 2 LPM with CPAP, and 3 LPM with exertion/activity) DME: [facility]. ASPIRIN 81 MG PO CHEW 1 Tab Oral Daily (+) HTN (-) Prior CHF in last 2 weeks, NYHA Class: 0 (-) PVD (-) Dialysis (-) Smoked in the past year (+) HLD (-) Family heart disease (male<55, female<65) (-) Prior WI (+) Prior PCI, if yes, when: RCA (-) Valve Surgery (+) CABG, if yes, when 2009 (-) Stroke/TIA (-) COPD/Emphysema (+) ASA in the last 24 hours (-) Dual Anti-platelet Therapy, if yes, what med: - (-) History of HIT (-) Allergic to Dye, if yes, were they prepped: - Review of patient's allergies indicates: Allergen Reactions Hydromorphone Other reaction(s): Nausea Other reaction(s): Nausea Methylprednisolone Steroid psychosis Other reaction(s): AMS Other reaction(s): AMS Prednisone Other reaction(s): INCREASE BLOOD SUGAR Other reaction(s): INCREASE BLOOD SUGAR Prasugrel bleeding CS Frailty Score: 4 Very Fit - 1 Well - 2 Managing Well - 3 Vulnerable - 4 Mildly Frail - 5 Moderately Frail - 6 Severely Frail - 7 Very Severely Frail - 8 Terminally Ill - 9 Current Presentation Admission Date: (Not on file) | Admission Time: 0700 CAD Presentation: (None, Unlikely to be ischemic, Stable, Unstable): stable Anginal Class: 2 Anti-Anginals in the last 2 weeks: - Beta Blockers | - Calcium Channel | + Long Acting Nitrates LV Dysfunction/ Cardiomyopathy: No EF in last 6 months: 68% on nuclear stress test Stress Test (Last 6 months): yes | Type of stress test: NM Result (No test, Low Risk, Intermediate Risk, High Risk, Negative, Indeterminate): Abnormal Lexiscan nuclear stress test demonstrating a small apical infarct with mild jose-infarct ischemia Labs Last Creatinine: Lab Results Component Value Date/Time CREATININE - [facility] 1.8 (H) 11/29/2022 09:48 AM CREATININE - [facility] 2.1 (H) 02/22/2020 08:52 AM CREATININE, RANDOM URINE - [facility] 44 04/22/2022 11:29 AM CREATININE, RANDOM URINE - [facility] 102 06/06/2019 10:54 AM CREATININE-[facility] 2.10 (A) 05/18/2020 12:00 AM Last GFR: No components found for: E GLOM FILT RATE Last INR: INR Date Value 11/29/2022 0.9 08/18/2016 1.03 Last Hb/Hct: HGB (g/dL) Date Value 11/29/2022 11.9 (L) 03/04/2020 11.4 (L) HEMOGLOBIN-[facility]TS[facility] (GM/DL) Date Value 07/15/2022 10.8 (A) HCT (%) Date Value 11/29/2022 36.8 (L) 03/04/2020 35.2 (L) [facility] Bel[facility]an is an 82 year old male with a history of CAD s/p CABG w/ GIVENS-LAD, SVG-OM, SVGPDA, multiple PCIs to the RCA, high degree Av block s/p PPM, HTN and HLD. Patient has been experiencing ongoing episodes of chest discomfort with exertion along with dyspnea on exertion. He underwent a nuclear stress test that revealed a small apical infarct with mild jose-infarct ischemia (ischemia encompassed 4% of the total myocardium per quantitative analysis). He presents for [facility] with coronary angiography for further evaluation. Grafts: GIVENS-LAD, SVG-OM (both patent in 2017) & SVG-PDA (known occluded) documented in this encounter Plan of Treatment Upcoming Encounters Date Type Specialty Care Team Description 12/09/[address] [place] [address] 12/13/2022 Office Visit Cardiology Nevaeh Linda PA-C [address] [place] [address] [place] [id number] 12/20/2022 Office Visit Dermatology Meron Aragon PA-C [address] [place] [address] [place] [id number] 12/27/2022 Office Visit Family Medicine Nicola Prado MD [address] [place] [address] [place] [address] 01/28/2023 Office Visit Nephrology Verito Jovel PA-C [address] [place] [address] 03/04/2023 Office Visit Gastroenterology Marielena Hall CRNP [address] [place] [address] 03/29/2023 Office Visit Cardiology Blair Hannah PA-C [address] [place] [address] 04/05/2023 Office Visit Urology Denny Armando MD [address] [place] [address] 06/02/2023 Nurse Only Ancillary Nurse [facility] [address] [place] [address] [place] [address] 10/12/2023 Office Visit Sleep Disorders Eulalia Milligan DO [address] [place] [address] 10/25/2023 Cardiac Studies Cardiology Keith Pickard [facility] [address] [place] [address] Scheduled Orders Name Type Priority Associated Diagnoses Orde r Schedule EKG EKG Routine SOB (shortness of breath) One Time for 1 Occurrences starting 12/02/2022 until 12/02/2022 Scheduled Procedures Name Priority Associated Diagnoses Date/Ti me ESOPHAGOGASTRODUODENOSCOPY ( EGD), FLEXIBLE, TRANSORAL, DIAGNOSTIC Recall Stubbs esophagus COLONOSCOPY FLEXIBLE PROXIMAL DIAGNOSTIC Recall History of colon polyps Health Maintenance Due Date Last Done Comments Alpha-1 Antitrypsin 1960 Zoster Vaccines (1 of 2) 1961 Stubbs's Esophagus Surveilance 06/24/2018 06/25/2015, 12/05/2013 DIABETES-EYE EXAM [...] on patient's age to complete this topic Hepatitis B Aged Out No longer eligi ble based on patient's age to complete this topic MENINGOCOCCAL (MENACTRA/MENVEO) Aged Out No longer eligible based on patient's age to complete this topic documented as of this encounter Medical Devices Implanted Type Area Insurance Actuary Device Identifier Shelf Expiration Date Model / Serial / Lot Sut Steel 6 [id number] - [id number] Implanted:Qty: 6 on 07/10/2008 at OR [facility] N/A: Chest DO NOT USE 08/14/2012 [id number] / / [id number] documented as of this encounter Procedures Procedure Name Priority Date/Time Associated Diagnosis Comments GLUCOSE METER, POINT OF CARE NERY 12/02/2022 10:46 AM EDT documented in this encounter Results * (ABNORMAL) GLUCOSE METER, POINT OF CARE (12/02/2022 10:46 AM EDT) Glucose Meter 145(H) 70 - 120 mg/dL 12/02/2022 10:49 AM EDT [facility] Money Dashboard [facility] Blood Whole blood specimen / Unknown 12/02/2022 10:46 AM EDT 12/02/2022 10:49 AM EDT Carrie Nation MD LAB POINT OF CARE TE ST DOCKED DEVICE UNSOLICITED RESULTS [facility] [address] [place] [address] documented in this encounter Visit Diagnoses Diagnosis SOB (shortness of breath) Shortness of breath Diarrhea, unspecified type documented in this encounter Administered Medications Inactive Administered Medications - up to 3 most recent administrations Medication Order MAR Action Action Date Dose Rate Site Acetaminophen (Tylenol) tab 650 mg 650 mg, Oral, Q6H PRN Pain, Mild, Other, non cardiac pain, Starting on Ana Lilia 12/02/22 at 1319, Until Ana Lilia 12/02/22 at 2033, Maximum of 4 grams (4000 mg) per day., Post-op fentaNYL (PF) inj 25 mcg 25 mcg, IV Push, PRN Pain, Severe, Starting on Ana Lilia 12/02/22 at 1226, Until Ana Lilia 12/02/22 at 1425, For 2 hours, To be administered in Cardiac Global Security Architect intra-procedure only When given IV Push its recommended that the dose be given over 3 to 5 minutes. , Intra-Op Given 12/02/2022 12:41 PM EDT 25 mcg hEParin inj 5,000 Units 5,000 Units, IV Push, PRN Other, Anticoagulation not at goal, Starting on Ana Lilia 12/02/22 at 1226, Until Ana Lilia 12/02/22 at 1425, For 2 hours, To be administered in Cardiac Global Security Architect intra-procedure., Intra-Op Given 12/02/2022 12:57 PM EDT 5,000 Units Iopamidol (Isovue 370) inj 80 mL 80 mL, Intracoronary, ONCE, On Ana Lilia 12/02/22 at 1400, For 1 dose, Intra-Op Given 12/02/2022 1:18 PM EDT 80 mL midazolam (Versed) 2 MG/2ML inj 1 mg 1 mg, IV Push, PRN Anxiety, Starting on Ana Lilia 12/02/22 at 1226, Until Ana Lilia 12/02/22 at 1425, For 2 hours, To be administered in Cardiac Global Security Architect intra-procedure only, Intra-Op Given 12/02/2022 12:41 PM EDT 1 mg NSS 0.9% 250 mL bolus infusion Intravenous, at 250 mL/hr Administer over 60 Minutes, Administer entire volume within 60 minutes or less., ONCE, 1 dose, On Ana Lilia 12/02/22 at 1130 Bolus from Bag 12/02/2022 11:30 AM EDT 250 mL 250 mL/hr NSS infusion Intravenous, at 100 mL/hr, CONTINUOUS, Starting on Ana Lilia 12/02/22 at 1015, Until Ana Lilia 12/02/22 at 2014, Pre-Op New Bag 12/02/2022 10:15 AM EDT 100 mL/hr documented in this encounter Active and Recently Administered Medications Times are shown in EDT. Scheduled Medication Order 11/30/2022 12/01/2022 12/02/2022 atorvaSTATin (Lipitor) tab 80 mg 80 mg, Oral, ONCE, On Ana Lilia 12/02/22 at 1015, For 1 dose, Pre-Op 1015 (Not Given - Pr ovider: Cyndi Patrick RN - Reason: Parameter(s) Not Met - Comment: Pt take 80 mg HS, no needed per Luciano) Iopamidol (Isovue 370) inj 80 mL (COMPLETED) 80 mL, Intracoronary, ONCE, On Ana Lilia 12/02/22 at 1400, For 1 dose, Intra-Op 1318 (Given - Provid er: Jenny Wood RN) NSS 0.9% 250 mL bolus infusion (COMPLETED) Intravenous, at 250 mL/hr Administer over 60 Minutes, Administer entire volume within 60 minutes or less., ONCE, 1 dose, On Ana Lilia 12/02/22 at 1130 1130 (Bolus from Bag - Provider: Cyndi Patrick RN)1200 (Stopped - Provider: Cyndi Patrick RN) Continuous Medication Order 11/30/2022 12/01/2022 12/02/2022 NSS infusion Intravenous, at 100 mL/hr, CONTINUOUS, Starting on Ana Lilia 12/02/22 at 1015, Until Ana Lilia 12/02/22 at 2014, Pre-Op 1015 (New Bag - Prov ider: Cyndi Patrick RN)2033 (Due: Stopped) PRN Medication Order 11/30/2022 12/01/2022 12/02/2022 Acetaminophen (Tylenol) tab 650 mg 650 mg, Oral, Q6H PRN Pain, Mild, Other, non cardiac pain, Starting on Ana Lilia 12/02/22 at 1319, Until Ana Lilia 12/02/22 at 2033, Maximum of 4 grams (4000 mg) per day., Post-op fentaNYL (PF) inj 25 mcg 25 mcg, IV Push, PRN Pain, Severe, Starting on Ana Lilia 12/02/22 at 1226, Until Ana Lilia 12/02/22 at 1425, For 2 hours, To be administered in Cardiac Global Security Architect intra-procedure only When given IV Push its recommended that the dose be given over 3 to 5 minutes. , Intra-Op 1241 (Given - Provid er: Shantel Mena RN) hEParin inj 5,000 Units 5,000 Units, IV Push, PRN Other, Anticoagulation not at goal, Starting on Ana Lilia 12/02/22 at 1226, Until Ana Lilia 12/02/22 at 1425, For 2 hours, To be administered in Cardiac Global Security Architect intra-procedure., Intra-Op 1257 (Given - Provid er: Shantel Mena RN) midazolam (Versed) 2 MG/2ML inj 1 mg 1 mg, IV Push, PRN Anxiety, Starting on Ana Lilia 12/02/22 at 1226, Until Ana Lilia 12/02/22 at 1425, For 2 hours, To be administered in Cardiac Global Security Architect intra-procedure only, Intra-Op 1241 (Given - Provid er: Shantel Mena RN) documented in this encounter Additional Health Concerns Infection Onset Date Last Indicated Resolved Time C. difficile 11/05/2022 11/05/2022 documented as of this encounter Advance Directives Documents on File Type Date Recorded Patient Brown Sourer Expl anation Power of Field Contractor 06/26/2019 POWER OF A TTORNEY Advance Directives [...] the patient have Health Care Power of Field Contractor? No Code Status History Code Status Date [...] patient or by statute hierarchy) Care Teams Lean Six Sigma Senior Specialist Relationship Specialty Start Date End Date Nicola Prado MD [address] [place] [address] [place] [address] PCP - General Family Medicine 06/19/21 documented as of this encounter
--- OUTSIDE RECORDS SUMMARY | 2023-02-03 20:20 | External Medical Summary | Summary of Care ---
Author Name Unknown Organization [facility] Address [address] [place] [address] Phone [phone] Care Team Providers Care Mortgage Loan Funder Name Role Phone Nicola Prado MD Primary Care Provide r Reason for Visit * Reason Onset Date Comments Medication Refill 12/06/2022 Encounter Details Date Type Department Care Team (Late st Contact Info) Description 12/06/2022 Refill Gastroenterology, [facility] [address] [place] [address] Marielena Giraldo CRNP [address] [place] [address] Allergies Active Allergy Reactions Criticality Noted Date [...] mouth daily. 90 Tablet 3 12/16/2021 Active Eko DevicesTouch UltraSoft LancetsIndications :Type 2 diabetes mellitus with hemoglobin A1c goal of less than 8.0% ([facility]) Test blood sugar up to five times daily; dx E11.9 450 Each 3 12/17/2021 Active OneTouch Ultra In Vitro Strip (Glucose Blood)Indications: Type 2 diabetes mellitus with hemoglobin A1c goal of less than 8.0% ([facility]) 3-4 times a day 450 Strip 3 12/17/2021 Active Xiidra 5 % Ophthalmic Solution instill 1 drop by ophthalmic route 2 times every day into both eyes. OK for 90 day supply. 0 01/05/2022 Active NovoLOG FlexPen 100 UNIT/ML Subcutaneous Solution Pen-injector (insulin aspart)Indications :Type 2 diabetes mellitus with hemoglobin A1c goal of less than 8.0% ([facility]) 12 units with breakfast and supper [...] Tablet 1 05/05/2022 Active Easy Touch Pen [place] 31G X 8 MM (Insulin Pen Needle)Indications :Type 2 diabetes mellitus with hemoglobin A1c goal of less than 8.0% ([facility]),Type 2 diabetes mellitus with stage 4 chronic kidney disease, unspecified whether medical terminologist insulin use (HCC) Use up to six [...] 180 Each 1 09/01/2022 3 Discontinue d(Refill) Hospital, Clinic, or Other Facility Administered Medication Ordered Dose Route Frequency Start Date End Date Status Albuterol Sulfate (Proventil) (2.5 MG/3ML) 0.083% inhalation solution 2.5 mgIndications:Dyspnea and respiratory abnormalities 2.5 mg NEBULIZER PRN 05/18/2022 05/18/2023 Active documented as of this encounter (statuses as of 12/06/2022) Active Problems Problem Noted Date Diagnosed Date Atherosclerosis of coronary artery bypass graft of [place] heart with angina pectoris 10/13/2022 Encounter for [...] urinary tract symp toms 07/13/2001 Atherosclerosis of [place] co ronary artery of [place] heart without angina pectoris Morbid obesity with [...] use aero chamber. Test performed by Dori MIXER OPERATOR TABLETS CPFT Body mass index (BMI) of 45. [...] TIA (transient ischemic attack) 02/04/2016 11/23/2017 Overview: [facility] Anemia of chronic renal failure [...] MANAGEMENT 07/22/200812/01 Overview: Kianna Lyn RN [phone] Examination following surgery 07/11/2008 12/31/2011 Difficult intubation 07/10/2008 021 Overview: Patient seen and examined in OR#1.Possible difficult intubation.TM distance about 5 cms.MP 3-4. Will plan FOB electively Due to current situation. EXAMINATION OF PARTICIPANT I N CLINICAL TRIAL-genomics 07/04/2008 05/30/2009 Overview: Renamed Per Clinical Trials Billing Project. Study Titile: Genomic Markers for Patients with Cardiovascular Disease Project #[id number] PI: Miriam Roque MD Please call [phone] with study related questions Chronic coronary artery [...] not at goal 07/04/200809/06 GENOMICS CARDIO RESEARCH OTHER*[id number] 07/04/2008 03/23/2016 Overview: Renamed Per Clinical Trials Billing Project. Study Titile: Genomic Markers for Patients with Cardiovascular Disease Project #[id number] PI: Miriam Roque MD Please call [phone] with study related questions Kidney disease, chronic, [...] encounter Miscellaneous Notes * Telephone Encounter - FRANCHESKA Collins - [...] filling his syringes and Octreotide at [facility]. He has enough vials to stay on track with his dosing, but has run out of syringes. 1 box pended to be sent to his local pharmacy as there will be a delay until he can get his medication from [facility]. documented in this encounter Plan of Treatment Upcoming Encounters Date Type Department Care Team (Late st Contact Info) Description 12/09/2022 6:10 PM EDT Pharmacy Pharmacy, [address] [place] [address] [place] [address] 12/13/2022 2:00 PM EDT Office Visit Cardiology, [facility] [address] [place] [address] Nevaeh Linda PA-C [address] [place] [address] [place] [address] 12/20/2022 4:20 PM EST Office Visit Dermatology [address] [place] [address] Meron Aragon PA-C [address] [place] [address] [place] [address] 12/27/2022 11:20 AM EST Office Visit Family Medicine [address] [place] [phone] Nicola Prado MD [address] [place] [address] [place] [address] 01/28/2023 2:00 PM EST Office Visit Nephrology [address] [place] [address] ZemaVerito paiz PA-C [address] [facility] [address] 03/04/2023 10:30 AM EST Office Visit Gastroenterology [address] [place] [address] Marielena Giraldo CRNP [address] [place] [address] 03/29/2023 12:30 PM EST Office Visit Cardiology [address] [place] [address] Blair Hannah PA-C [address] [place] [address] 04/05/2023 9:45 AM EST Office Visit Urology, [facility] 132 [facility] [place] [address] Denny Armando MD [address] [place] [address] 06/02/2023 11:00 AM EDT Nurse Only Ancillary [address] [place] [address] Nurse Neeraj [address] [place] [address] 10/12/2023 11:20 AM EDT Office Visit [facility] 132 [facility] [place] [phone] Eulalia Milligan DO 132 [facility] [place] [address] 10/25/2023 10:00 AM EDT Cardiac Studies Cardiology [address] [place] [address] [facility] 132 [facility] [place] [address] Scheduled Procedures Name Priority Associated Diagnoses Date/Ti [...] this encounter Medical Devices Implanted Type Area Web Production Manager Device Identifier Shelf Expiration Date Model / Serial / Lot Sut Steel 6 [id number] - [id number] Implanted:Qty: 6 on 07/10/2008 at OR [facility] [place] N/A: Chest DO NOT USE 08/14/2012 [id number] / / [id number] documented as of this encounter Advance Directives Documents on File Type Date Recorded Patient Major Donor Coordinator Expl anation Power of Tc Operator 06/26/2019 POWER OF A TTORNEY Advance [...] the patient have Health Care Power of Tc Operator? No Code Status History Code Status [...] patient or by statute hierarchy) Care Teams Mortgage Loan Funder Relationship Specialty Start Date End Date Nicola Prado MD [address] [place] [address] [place] [address] PCP - General Family Medicine 06/19/21 documented as of this encounter
--- OUTSIDE RECORDS SUMMARY | 2023-02-03 20:20 | External Medical Summary | Summary of Care ---
Author Name Unknown Organization [facility] Address [address] [place] [address] Phone [phone] Care Team Providers Care Brush Trimming Machine Setter Name Role Phone Nicola Prado MD Primary Care Provide r Reason for Visit * Reason Onset Date Comments Follow Up 12/06/2022 Encounter Details Date Type Department Care Team (Late st Contact Info) Description 12/06/2022 Telephone Gastroenterology, [facility] [address] [place] [address] Marielnea Hall CRNP [address] [place] [address] Follow Up Allergies Active Allergy Reactions Criticality [...] less than 8.0% ([facility]) 12 units with breakfast and [...] Tablet 1 05/05/2022 Active Easy Touch Pen [place] 31G X 8 MM (Insulin Pen Needle)Indications:T ype 2 diabetes mellitus with hemoglobin A1c goal of less than 8.0% ([facility]),Type 2 diabetes mellitus with stage 4 chronic kidney disease, 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 25 Each 0 12/06/2022 Active Hospital, Clinic, or [...] coronary artery bypass graft of [place] heart with angina pectoris 10/13/2022 Encounter for [...] symp toms 07/13/2001 Atherosclerosis of [place] co ronary artery of [place] heart without angina pectoris Morbid obesity with [...] use aero chamber. Test performed by Dori PROVIDER RELATIONS REPRESENTATIVE CPFT Body mass index (BMI) of [...] MANAGEMENT 07/22/200812/01 Overview: Kianna Lyn, RN [phone] Examination following surgery 07/11/2008 12/31/2011 Difficult intubation 07/10/2008 021 Overview: Patient seen and examined in OR#1.Possible difficult intubation.TM distance about 5 cms.MP 3-4. Will plan FOB electively Due to current situation. EXAMINATION OF PARTICIPANT I N CLINICAL TRIAL-genomics 07/04/2008 05/30/2009 Overview: Renamed Per Clinical Trials Billing Project. Study Titile: Genomic Markers for Patients with Cardiovascular Disease Project #[id number] PI: Miriam Roque MD Please call [phone] with study related questions Chronic coronary artery [...] not at goal 07/04/200809/06 GENOMICS CARDIO RESEARCH OTHER*[id number] 07/04/2008 03/23/2016 Overview: Renamed Per Clinical Trials Billing Project. Study Titile: Genomic Markers for Patients with Cardiovascular Disease Project #[id number] PI: Miriam Roque MD Please call [phone] with study related questions Kidney disease, chronic, [...] mRNA, LNP-s, No Pre serve, 2-Dose Series (SocialOptimizr) 12/09/2020,05/09/2020,04/11/2020 COVID-19, LNP-s, No Preserve , Juan [...] encounter Miscellaneous Notes * Telephone Encounter - Kathleen Palafox CPhT [...] for the needles as well. Thank you * Telephone Encounter - Maddie Richardson LPN [...] Description 12/09/2022 6:10 PM EDT Pharmacy Pharmacy, [address] [place], [place] [address] [place] [address] 12/13/2022 2:00 PM EDT Office Visit Cardiology, [facility] [address] [place] [address] Nevaeh Linda PA-C [address] [place] [address] [place] [address] 12/20/2022 4:20 PM EST Office Visit Dermatology [address] [place] [address] Meron Aragon PA-C [address] [place] [address] [place] [address] 12/27/2022 11:20 AM EST Office Visit Family Medicine [address] [place] [phone] Nicola Prado MD [address] [place] [address] [place] [address] 01/28/2023 2:00 PM EST Office Visit Nephrology [address] [place] [address] Verito Jovel PA-C [address] [facility] [address] 03/04/2023 10:30 AM EST Office Visit Gastroenterology [address] [place] [address] Marielena Hall CRNP [address] [place] [address] 03/29/2023 12:30 PM EST Office Visit Cardiology [address] [place] [address] Blair Hannah PAJovanniC [address] [place] [address] 04/05/2023 9:45 AM EST Office [facility], [facility] [place] [address] Denny Armando MD [address] [place] [address] 06/02/2023 11:00 AM EDT Nurse Only Ancillary [address] [place] [address] Neeraj Nurse [address] [place] [address] 10/12/2023 11:20 AM EDT Office Visit [facility]tr [facility] 132 [facility] [place] [phone] Eulalia Milligan DO 132 [facility] [place] [address] 10/25/2023 10:00 AM EDT Cardiac Studies Cardiology [address] [place] [address] Neeraj Pac[facility] 132 [facility] [place] [address] Scheduled Procedures Name Priority Associated Diagnoses Date/Ti [...] 06/03/2020, Additional history exists COVID-19 Vaccine ( - 2022-24 season) 2022 06/04/2021, 12/09/2020, 05/09/2020, Additional history [...] this encounter Medical Devices Implanted Type Area Acetylene Torch Operator Device Identifier Shelf Expiration Date Model / Serial / Lot Sut [place] 6 [id number] - [id number] Implanted:Qty: 6 on 07/10/2008 at OR [facility] N/A: Chest DO NOT USE 08/14/2012 [id number] / / [id number] documented as of this encounter Advance Directives Documents on File Type Date Recorded Patient Thermostatic Controls Supervisor Expl anation Power of Digital Media Intern 06/26/2019 POWER OF A TTORNEY Advance Directives [...] patient have Health Care Power of Digital Media Intern? No Code Status History Code Status Date [...] patient or by statute hierarchy) Care Teams Brush Trimming Machine Setter Relationship Specialty Start Date End Date Nicola Prado MD [address] [place] [address] [place] [address] PCP - General Family Medicine 06/19/21 documented as of this encounter
--- OUTSIDE RECORDS SUMMARY | 2023-02-03 20:20 | External Medical Summary | Summary of Care ---
Author Name Unknown Organization [facility] Address [address] [place] [address] Phone [phone] Care Team Providers Care Marketing Officer Name Role Phone Nicola Prado MD Primary Care Provide r Reason for Visit * Reason Onset Date Comments Follow Up 12/06/2022 Encounter Details Date Type Department Care Team (Late st Contact Info) Description 12/06/2022 Telephone Gastroenterology, [facility] [address] [place] [address] Marielena Giraldo CRNP [address] [place] [address] Follow Up Allergies Active Allergy Reactions Criticality [...] mouth daily. 90 Tablet 3 12/16/2021 Active CampuSceneTouch UltraSoft LancetsIndications :Type 2 diabetes mellitus with hemoglobin A1c goal of less than 8.0% ([facility]) Test blood sugar up to five times daily; dx E11.9 450 Each 3 12/17/2021 Active OneTouch Ultra In Vitro Strip (Glucose Blood)Indications: Type 2 diabetes mellitus with hemoglobin A1c goal of less than 8.0% ([facility]) 3-4 times a day 450 Strip 3 12/17/2021 Active Xiidra 5 % Ophthalmic Solution instill 1 drop by ophthalmic route 2 times every day into both eyes. OK for 90 day supply. 0 01/05/2022 Active NovoLOG FlexPen 100 UNIT/ML Subcutaneous Solution Pen-injector (insulin aspart)Indications :Type 2 diabetes mellitus with hemoglobin A1c goal of less than 8.0% ([facility]) 12 units with breakfast and supper [...] Tablet 1 05/05/2022 Active Easy Touch Pen [place] 31G X 8 MM (Insulin Pen Needle)Indications :Type 2 diabetes mellitus with hemoglobin A1c goal of less than 8.0% (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 DXe11.9 600 Each 3 05/22/2022 Active Victoza 18 MG/3ML Subcutaneous Solution Pen-injector (Liraglutide)Indic ations:Type 2 diabetes mellitus with hemoglobin A1c goal of less than 8.0% ([facility]),Type 2 diabetes mellitus with stage 4 chronic kidney disease, with long-term current use of insulin ([facility]) Inject 1.8 mg under the skin [...] Release 12 Hour (Mucinex)Indicatio ns:COPD exacerbation ([facility]) Take 1 Tablet by mouth 2 times a day as needed for Congestion. Take with plenty of water. Do not cut, crush or chew 40 Tablet 0 10/13/2022 Active Tresiba FlexTouch 200 UNIT/ML Subcutaneous Solution Pen-injector (Insulin Degludec)Indicatio ns:Type 2 diabetes mellitus with hemoglobin A1c goal of less than 8.0% ([facility]) Inject 100 Units under the skin [...] with Octreotide. 60 Each 0 12/06/2022 Active BD TB Syringe [...] Atherosclerosis of coronary artery bypass graft of [place] heart with angina pectoris 10/13/2022 Encounter for [...] urinary tract symp toms 07/13/2001 Atherosclerosis of [place] co ronary artery of [place] heart without angina pectoris Morbid obesity with [...] use aero chamber. Test performed by Dori TEXTILE MACHINERY SALES REPRESENTATIVE CPFT Body mass index (BMI) [...] TIA (transient ischemic attack) 02/04/2016 11/23/2017 Overview: [facility] Anemia of chronic renal failure 07/30/2015 01/27/2017 [...] MANAGEMENT 07/22/200812/01 Overview: Kianna Lyn RN [phone] Examination following surgery 07/11/2008 12/31/2011 Difficult intubation 07/10/2008 021 Overview: Patient seen and examined in OR#1.Possible difficult intubation.TM distance about 5 cms.MP 3-4. Will plan FOB electively Due to current situation. EXAMINATION OF PARTICIPANT I N CLINICAL TRIAL-genomics 07/04/2008 05/30/2009 Overview: Renamed Per Clinical Trials Billing Project. Study Titile: Genomic Markers for Patients with Cardiovascular Disease Project #[id number] PI: Miriam Roque MD Please call [phone] with study related questions Chronic coronary artery [...] not at goal 07/04/200809/06 GENOMICS CARDIO RESEARCH OTHER*[id number] 07/04/2008 03/23/2016 Overview: Renamed Per Clinical Trials Billing Project. Study Titile: Genomic Markers for Patients with Cardiovascular Disease Project #[id number] PI: Miriam Roque MD Please call [phone] with study related questions Kidney disease, chronic, [...] mRNA, LNP-s, No Pre serve, 2-Dose Series (Motionsoft) 12/09/2020,05/09/2020,04/11/2020 COVID-19, LNP-s, No Preserve , Juan [...] I sent Rx for TB syringes to [facility] FRANCHESKA Angulo * Telephone [...] needles as well. Thank you Kathleen Palafox Bi Report Developer III [facility] 12/06/2022,1:02 PM * Telephone [...] 12/09/2022 6:10 PM EDT Pharmacy Pharmacy, [address] [place] [address] [place] [address] 12/13/2022 2:00 PM EDT Office Visit Cardiology, [facility] 132 [facility] [place] [address] Nevaeh Linda PA-C [address] [place] [address] Mikie [place] [address] 12/20/2022 4:20 PM EST Office Visit Dermatology [address] [place] [address] Meron Aragon PA-C [address] [place] [address] [place] [address] 12/27/2022 11:20 AM EST Office Visit Family Medicine [address] [place] [phone] Nicola Prado MD [address] [place] [address] [place] [address] 01/28/2023 2:00 PM EST Office Visit Nephrology [address] [place] [address] Verito Jovel PA-C [address] [place] [address] 03/04/2023 10:30 AM EST Office Visit Gastroenterology [address] [place] [address] Marielena Giraldo CRNP [address] [place] [address] 03/29/2023 12:30 PM EST Office Visit Cardiology [address] [place] [address] Balir Hannah PA-C [address] [place] [address] 04/05/2023 9:45 AM EST Office Visit Urology, [facility] [address] [place] [address] Denny Armando MD [address] [address] [place] [phone] 06/02/2023 11:00 AM EDT Nurse Only Ancillary [address] [place] [address] [place], Nurse Annual [address] [place] [address] 10/12/2023 11:20 AM EDT Office Visit Sleep Disorders [facility] [address] [place] [phone] Eulalia Milligan DO [address] [place] [address] 10/25/2023 10:00 AM EDT Cardiac Studies Cardiology [address] [place] [address] [facility] [address] [place] [address] Scheduled Procedures Name Priority Associated Diagnoses Date/Ti [...] this encounter Medical Devices Implanted Type Area Flow Specialist Device Identifier Shelf Expiration Date Model / Serial / Lot Sut Steel 6 [id number] - [id number] Implanted:Qty: 6 on 07/10/2008 at OR [facility] [place] N/A: Chest DO NOT USE 08/14/2012 [id number] / / [id number] documented as of this encounter Advance Directives Documents on File Type Date Recorded Patient Scrap Shear Operator Expl anation Power of Product Advisor 06/26/2019 POWER OF A TTORNEY Advance Directives [...] the patient have Health Care Power of Product Advisor? No Code Status History Code Status Date [...] patient or by statute hierarchy) Care Teams Marketing Officer Relationship Specialty Start Date End Date Nicola Prado MD [address] [place] [address] [place] [address] PCP - General Family Medicine 06/19/21 documented as of this encounter
--- OUTSIDE RECORDS SUMMARY | 2023-02-03 20:20 | External Medical Summary | Summary of Care ---
Author Name Unknown Organization [facility] Address [address] [place] [address] Phone [phone] Care Team Providers Care Tread Builder Name Role Phone Nicola Prado MD Primary Care Provide r Reason for Visit * Reason Onset Date Comments Follow Up 12/06/2022 Encounter Details Date Type Department Care Team (Late st Contact Info) Description 12/06/2022 Telephone Gastroenterology, [facility] [address] [place] [address] Marielena Hall CRNP [address] [place] [address] Follow Up Allergies Active Allergy Reactions Criticality [...] hemoglobin A1c goal of less than 8.0% ([facility]) Test blood sugar up to five times [...] hemoglobin A1c goal of less than 8.0% ([facility]) 12 units with breakfast and supper PLUS [...] Tablet 1 05/05/2022 Active Easy Touch [place] 31G X 8 MM (Insulin Pen Needle)Indications:T ype 2 diabetes mellitus with hemoglobin A1c goal of less than 8.0% ([facility]),Type 2 diabetes mellitus with stage 4 chronic kidney disease, unspecified whether termite control servicer insulin use ([facility]) Use up to six times daily with insulin. [id number] 600 Each 3 05/22/2022 Active Victoza 18 MG/3ML Subcutaneous Solution Pen-injector (Liraglutide)Indicat ions:Type 2 diabetes mellitus with hemoglobin A1c goal of less than 8.0% ([facility]),Type 2 diabetes mellitus with stage 4 chronic kidney disease, with long-term current use of insulin ([facility]) Inject 1.8 mg under the skin daily. [...] Extended Release 12 Hour (Mucinex)Indications :COPD exacerbation ([facility]) Take 1 Tablet by mouth 2 times a day as needed for Congestion. Take with plenty of water. Do not cut, crush or chew 40 Tablet 0 10/13/2022 Active Tresiba FlexTouch 200 UNIT/ML Subcutaneous Solution Pen-injector (Insulin Degludec)Indications :Type 2 diabetes mellitus with hemoglobin A1c goal of less than 8.0% ([facility]) Inject 100 Units under the skin daily. [...] Atherosclerosis of coronary artery bypass graft of [place] heart with angina pectoris 10/13/2022 Encounter for [...] urinary tract symp toms 07/13/2001 Atherosclerosis of [place] co ronary artery of [place] heart without angina pectoris Morbid obesity with [...] use aero chamber. Test performed by Dori COFFEE MACHINE TECHNICIAN CPFT Body mass index (BMI) of [...] TIA (transient ischemic attack) 02/04/2016 11/23/2017 Overview: [facility] Anemia of chronic renal failure [...] MANAGEMENT 07/22/200812/01 Overview: Kianna Lyn, RN [phone] Examination following surgery 07/11/2008 12/31/2011 Difficult intubation 07/10/2008 021 Overview: Patient seen and examined in OR#1.Possible difficult intubation.TM distance about 5 cms.MP 3-4. Will plan FOB electively Due to current situation. EXAMINATION OF PARTICIPANT I N CLINICAL TRIAL-genomics 07/04/2008 05/30/2009 Overview: Renamed Per Clinical Trials Billing Project. Study Titile: Genomic Markers for Patients with Cardiovascular Disease Project #[id number] PI: Miriam Roque MD Please call [phone] with study related questions Chronic coronary artery [...] not at goal 07/04/200809/06 GENOMICS CARDIO RESEARCH OTHER*[id number] 07/04/2008 03/23/2016 Overview: Renamed Per Clinical Trials Billing Project. Study Titile: Genomic Markers for Patients with Cardiovascular Disease Project #[id number] PI: Miriam Roque MD Please call [phone] with study related questions Kidney disease, chronic, [...] mRNA, LNP-s, No Pre serve, 2-Dose Series (e-Zassi) 12/09/2020,05/09/2020,04/11/2020 COVID-19, LNP-s, No Preserve , Juan [...] Description 12/09/2022 6:10 PM EDT Pharmacy Pharmacy, [address] [place] [address] [place] [address] 12/13/2022 2:00 PM EDT Office Visit Cardiology, [facility] [address] [facility] [place] [address] Nevaeh Linda PA-C [address] [place] [address] [place] [address] 12/20/2022 4:20 PM EST Office Visit Dermatology [address] [place] [address] Meron Aragon PA-C [address] [place] [address] [place] [address] 12/27/2022 11:20 AM EST Office Visit Family Medicine [address] [place] [phone] Nicola Prado MD [address] [place] [address] [place] [address] 01/28/2023 2:00 PM EST Office Visit Nephrology [address] [place] [address] ZeVerito gramajo PA-C [address] [place] [address] 03/04/2023 10:30 AM EST Office Visit Gastroenterology [address] [place] [address] Marielena Hall CRNP [address] [place] [address] 03/29/2023 12:30 PM EST Office Visit Cardiology [address] [place] [address] Blair Hannah PA-C [address] [place] [address] 04/05/2023 9:45 AM EST Office Visit Urology, [facility] [address] [place] [address] Denny Armando MD [address] [place] [address] [place] [address] 06/02/2023 11:00 AM EDT Nurse Only Ancillary [address] [place] [address] [place], Nurse [address] [place] [address] 10/12/2023 11:20 AM EDT Office Visit Sleep Disorders [facility] [address] [place] [phone] MilliganEulalia Melissa, [address] [place] [address] 10/25/2023 10:00 AM EDT Cardiac Studies Cardiology [address] [place] [address] [facility] [address] [place] [address] Scheduled Procedures Name Priority Associated Diagnoses Date/Ti [...] this encounter Medical Devices Implanted Type Area Stroke Coordinator Device Identifier Shelf Expiration Date Model / Serial / Lot Sut Steel 6 [id number] - [id number] Implanted:Qty: 6 on 07/10/2008 [place] [facility] [place]: Chest DO NOT USE 08/14/2012 [id number] / / [id number] documented as of this encounter Advance Directives Documents on File Type Date Recorded Patient Staple Side Laster Expl anation Power of Rug Renovator 06/26/2019 POWER OF A TTORNEY Advance Directives [...] the patient have Health Care Power of Rug Renovator? No Code Status History Code Status Date [...] patient or by statute hierarchy) Care Teams Tread Builder Relationship Specialty Start Date End Date Nicola Prado MD [address] [place] [address] [place] [address] PCP - General Family Medicine 06/19/21 documented as of this encounter
--- OUTSIDE RECORDS SUMMARY | 2023-02-03 20:20 | External Medical Summary | Summary of Care ---
Author Name Unknown Organization [facility] Address [address] [place] [address] Phone [phone] Care Team Providers Care Content Analyst Name Role Phone Nicola Prado MD Primary Care Provide r Reason for Visit * Reason Onset Date Comments Follow Up 12/06/2022 Encounter Details Date Type Department Care Team (Late st Contact Info) Description 12/06/2022 Telephone Gastroenterology, [facility] [address] [place] [address] Marielena Hall CRNP [address] [place] [address] Follow Up Allergies Active Allergy Reactions Criticality [...] Tablet 1 05/05/2022 Active Easy Touch Pen [place] 31G X 8 MM (Insulin Pen Needle)Indications:T ype 2 diabetes mellitus with hemoglobin A1c goal of less than 8.0% ([facility]),Type 2 diabetes mellitus with stage 4 chronic kidney disease, unspecified whether terminal supervisor insulin use ([facility]) Use up to six times daily with [...] Atherosclerosis of coronary artery bypass graft of [place] heart with angina pectoris 10/13/2022 Encounter for [...] urinary tract symp toms 07/13/2001 Atherosclerosis of [place] co ronary artery of [place] heart without angina pectoris Morbid obesity with [...] use aero chamber. Test performed by Dori YACHT RIGGER CPFT Body mass index (BMI) of 45. [...] TIA (transient ischemic attack) 02/04/2016 11/23/2017 Overview: [facility] Anemia of chronic renal failure [...] MANAGEMENT 07/22/200812/01 Overview: Kianna Lyn, RN [phone] Examination following surgery 07/11/2008 12/31/2011 Difficult intubation 07/10/2008 021 Overview: Patient seen and examined in OR#1.Possible difficult intubation.TM distance about 5 cms.MP 3-4. Will plan FOB electively Due to current situation. EXAMINATION OF PARTICIPANT I N CLINICAL TRIAL-genomics 07/04/2008 05/30/2009 Overview: Renamed Per Clinical Trials Billing Project. Study Titile: Genomic Markers for Patients with Cardiovascular Disease Project #[id number] PI: Miriam Roque MD Please call [phone] with study related questions Chronic coronary artery [...] not at goal 07/04/200809/06 GENOMICS CARDIO RESEARCH OTHER*[id number] 07/04/2008 03/23/2016 Overview: Renamed Per Clinical Trials Billing Project. Study Titile: Genomic Markers for Patients with Cardiovascular Disease Project #[id number] PI: Miriam Roque MD Please call [phone] with study related questions Kidney disease, chronic, [...] mRNA, LNP-s, No Pre serve, 2-Dose Series ([email or web address]) 12/09/2020,05/09/2020,04/11/2020 COVID-19, LNP-s, No Preserve , Juan [...] needles as well. Thank you Kathleen Palafox Warehouse Guard III [facility] Specialty Rx 12/06/2022,1:02 PM * [...] Description 12/09/2022 6:10 PM EDT Pharmacy Pharmacy, [address] [place] [address] [place] [address] 12/13/2022 2:00 PM EDT Office Visit Cardiology, [facility] [address] [facility] [place] [address] Nevaeh Linda PA-C [address] [place] [address] 12/20/2022 4:20 PM EST Office Visit Dermatology [address] [place] [address] Meron Aragon PA-C [address] [place] [address] [place] [address] 12/27/2022 11:20 AM EST Office Visit Family Medicine [address] [place] [phone] Nicola Prado MD [address] [place] [address] [place] [address] 01/28/2023 2:00 PM EST Office Visit Nephrology [address] [place] [address] ZemaitisVerito PA-C [facility] [address] 03/04/2023 10:30 AM EST Office Visit Gastroenterology [address] [place] [address] Marielena Hall CRNP [address] [place] [address] 03/29/2023 12:30 PM EST Office Visit Cardiology [address] [place] [address] Blair Hannah PA-C [address] [place] [address] 04/05/2023 9:45 AM EST [facility] [place] [address] Denny Armando MD [address] [place] [address] [place] [address] 06/02/2023 11:00 AM EDT Nurse Only Ancillary [address] [place] [address] Nurse Neeraj [address] [place] [address] 10/12/2023 11:20 AM EDT Office Visit Sleep Disorders Ctr [facility] [address] [place] [phone] Eulalia Milligan DO [address] [place] [address] 10/25/2023 10:00 AM EDT Cardiac Studies Cardiology [address] [place] [address] [facility] [address] [facility] [place] [address] Scheduled Procedures Name Priority Associated Diagnoses Date/Ti [...] this encounter Medical Devices Implanted Type Area Obstetrics Teacher Device Identifier Shelf Expiration Date Model / Serial / Lot Lei Agrawal 6 [id number] - [id number] Implanted:Qty: 6 on 07/10/2008 [place] [facility] [place]A: Chest DO NOT USE 08/14/2012 [id number] / / [id number] documented as of this encounter Advance Directives Documents on File Type Date Recorded Patient Manager Pharmaceutical Expl anation Power of Hat Renovator 06/26/2019 POWER OF A TTORNEY Advance [...] the patient have Health Care Power of Hat Renovator? No Code Status History Code Status [...] patient or by statute hierarchy) Care Teams Content Analyst Relationship Specialty Start Date End Date Nicola Prado MD [address] [place] [address] [place] [phone] PCP - General Family Medicine 06/19/21 documented as of this encounter
--- OUTSIDE RECORDS SUMMARY | 2023-02-03 20:21 | External Medical Summary | Summary of Care ---
Author Name Unknown Organization [facility] Address [address] [place] [address] Phone [phone] Care Team Providers Care Ground Operations Supervisor Name Role Phone Nicola Prado MD Primary Care Provide r Reason for Visit * Reason Comments Outpatient Testing Encounter Details Date Type Department Care Team Description 11/29/2022 Laboratory Laboratory, [facility] [address] [facility] [place] [address] [facility] [address] [facility] [place] [address] Iron deficiency anemia; Coronary artery disease involving [place] coronary artery of [place] heart without angina pectoris; Chest pain, unspecified type; Dyslipidemia, goal LDL below 70; Atherosclerosis of [place] coronary artery of [place] heart without angina pectoris Allergies Active Allergy Reactions Severity Noted Date Comments Hydromorphone High 09/20/2021 Other reaction(s): Nausea Other reaction(s): Nausea 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/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 Other reaction(s): AMS Other reaction(s): AMS Prasugrel 04/02/2016 bleeding Prednisone High 09/20/2021 Other reaction(s): INCREASE BLOOD SUGAR Other reaction(s): INCREASE BLOOD SUGAR documented as of this encounter (statuses as of 11/29/2022) Medications Medication Sig Dispensed Refills Start Date End Date Status ASPIRIN 81 MG PO CHEWIndications:Unst able angina (HCC),Chronic coronary artery disease,Difficult intubation 1 Tab Oral Daily 1 0 07/21/2008 Active oxygen IN GAS Use 2 L/min(Oxygen) as directed daily. 2.5 LPMBled through bipap And 2 LPM with exertion DME: [facility] 1 Each 0 03/24/2020 Active Additional Information Patient taking differently:2 L/min(Oxygen) Nasal cannula Daily(AM),2.5 LPMBled through bipap And 2 LPM with exertion. (Patient is using 2 LPM with CPAP, and 3 LPM with exertion/activity)DME: [facility], Informant: Patient, Reported on 05/05/2022 Fluticasone Propionate 50 MCG/ACT Nasal Suspension (Flonase) [...] than 8.0% ([facility]) 12 units with breakfast and [...] Tablet 1 05/05/2022 Active Easy Touch Pen Carefree 31G X 8 MM (Insulin Pen Needle)Indications:T ype 2 diabetes mellitus with hemoglobin A1c goal of less than 8.0% ([facility]),Type 2 diabetes mellitus with stage 4 chronic kidney disease, unspecified whether skilled nursing insulin use ([facility]) Use up to six times daily with insulin. DXe11.9 600 Each 3 05/22/2022 Active Albuterol Sulfate HFA 108 (90 Base) MCG/ACT Inhalation Aerosol SolutionIndications: COPD exacerbation ([facility]),Chronic cough Inhale by mouth 2 Puffs every 4 hours as needed for Cough or Shortness of Breath. Reports doesn't help 18 g 2 05/27/2022 Active Victoza 18 MG/3ML Subcutaneous Solution Pen-injector (Liraglutide)Indicat ions:Type 2 diabetes mellitus with hemoglobin A1c goal of less than 8.0% ([facility]),Type 2 diabetes mellitus with stage 4 chronic kidney disease, with long-term current use of insulin ([facility]) Inject 1.8 mg under the skin daily. 27 mL 3 07/23/2022 Active Furosemide 80 MG Oral Tablet (Lasix) Take 1 Tablet by mouth in the morning. 90 Tablet 1 08/05/2022 Active BD TB Syringe 27G X 1/2" 1 ML (Tuberculin Syringe) Use twice daily to inject octreotide 180 Each 1 09/01/2022 Active Atorvastatin Calcium 80 MG Oral Tablet [...] 90 mL 3 10/25/2022 Active Octreotide Acetate 10 MG Intramuscular Kit (SandoSTATIN LAR [place]) Inject 10 mg into a large muscle every month. 1 Kit 12 10/29/2022 Active Octreotide Acetate 50 MCG/ML Injection Solution (Sandostatin) Inject 50mcg under the skin in the morning and the evening. 180 mL 1 11/01/2022 Active Omeprazole 20 MG Oral Capsule Delayed Release (PriLOSEC) Take 1 Capsule BY MOUTH in the morning AND 1 Capsule before bedtime. 60 Capsule 3 11/04/2022 Active Vancomycin HCl 125 MG Oral Capsule (Vancocin) Take 1 Capsule by mouth every 6 hours. For 7 days 28 Capsule 0 11/09/2022 Active Isosorbide Mononitrate ER 60 MG Oral Tablet Extended Release 24 Hour (Imdur)Indications:C hronic diastolic heart failure (HCC) Take 1 Tablet by mouth in the morning. 90 Tablet 3 11/19/2022 Active Enbrel SureClick 50 MG/ML Subcutaneous Solution Auto-injector (Etanercept)Indicati ons:H/O psoriasis,Polyarticu lar psoriatic arthritis (HCC) Inject 50 mg under the skin once a week. 4 mL 1 11/17/2022 Active Hospital, Clinic, or Other Facility Administered Medication Ordered Dose Route Frequency Start Date End Date Status Albuterol Sulfate (Proventil) (2.5 MG/3ML) 0.083% inhalation solution 2.5 mgIndications:Dyspnea and respiratory abnormalities 2.5 mg NEBULIZER PRN 05/18/2022 05/18/2023 Active Albuterol Sulfate (Proventil) (5 MG/ML) 0.5% *conc* inhalation solution 2.5 mgIndications:Dyspnea and respiratory abnormalities 2.5 mg NEBULIZER PRN 05/18/2022 05/18/2023 Active documented as of this encounter (statuses as of 11/29/2022) Active Problems Problem Noted Date Atherosclerosis of coronary artery bypass graft of [place] heart with angina pectoris 10/13/2022 Encounter [...] acid 11.7 Chronic diastolic heart failure 02/21/19 20 Pulmonary hypertension 11/04/2016 Henning's esophagus with dysplasia 06/23 S/P primary angioplasty [...] urinary tr act symptoms 07/13/2001 Atherosclerosis of [place] co ronary artery of [place] heart without angina pectoris Morbid obesity with BMI of 40.0-44.9, ad ult documented as of this encounter (statuses as of 11/29/2022) Resolved Problems Problem Noted Date Resolved Date [...] use aero chamber. Test performed by Dori DIRECTOR OF GROUP SALES CPFT Body mass index (BMI) of 45.0 [...] ACTIVE CASE MANAGEMENT 07/22/2008 0 Overview: Kianna Lyn RN [phone] Examination following surgery 07/11/2008 Difficult intubation 07/10/2008 02/19/2020 Overview: Patient seen and examined in OR#1.Possible difficult intubation.TM distance about 5 cms.MP 3-4. Will plan FOB electively Due to current situation. EXAMINATION OF PARTICIPANT IN CLINICAL TRIAL-gen omics 07/04/2008 05/30/2009 Overview: Renamed Per Clinical Trials Billing Project. Study Titile: Genomic Markers for Patients with Cardiovascular Disease Project #[id number] PI: Miriam Roque MD Please call [phone] with study related questions Chronic coronary artery [...] at goal 07/04/2008 9 GENOMICS CARDIO RESEARCH OTHER*[id number] 200803/23/2016 Overview: Renamed Per Clinical Trials Billing Project. Study Titile: Genomic Markers for Patients with Cardiovascular Disease Project #[id number] PI: Miriam Roque MD Please call [phone] with study related questions Kidney disease, chronic, [...] as of this encounter (statuses as of 11/29/2022) Immunizations Name Administration Dates Next Due COVID-19 mRNA, LNP-s, No Pre serve, 2-Dose Series ([employer]) 12/09/2020,05/09/2020,04/11/2020 COVID-19, LNP-s, No Preserve , Juan [...] Encounters Date Type Specialty Care Team Description 11/30/2022 Office Visit Urology Denny Armando MD [address] [place] [address] [place] [address] 12/02/2022 Hospital Encounter Cardiac Waste Removalist Carrie Nation MD [address] [place] [address] 12/02/2022 Surgery Cardiac Waste Removalist Carrie Nation MD [address] [place] [address] CORONARY ANGIOGRAPHY W/LEFT HEART CATH 12/02/2022 Office Visit Cardiology [place], Cardiac Recovery [place] [address] [place] [address] 12/09/[address] [place] [address] 12/13/2022 Office Visit Cardiology Nevaeh Linda PA-C [address] [place] [address] 12/15/2022 Office Visit Family Medicine Nicola Prado MD [address] [place] [address] [place] [address] 12/20/2022 Office Visit Dermatology Meron Aragon PA-C [address] [place] [address] [place] [address] 01/28/2023 Office Visit [facility]phrology [facility]C [facility] [address] 03/04/2023 Office Visit Gastroenterology Marielena Hall CRNP [address] [place] [address] 03/29/2023 Office Visit Cardiology Blair Hannah PA-C [address] [place] [address] 06/02/2023 Nurse Only Ancillary Nurse Neeraj [address] [place] [address] 10/12/2023 Office Visit Sleep Disorders Eulalia Milligan DO [address] [place] [address] 10/25/2023 Cardiac Studies Cardiology Keith Pickard [facility] [address] [place] [address] Pending Results Name Type Priority Associated Diagnoses Date /Time CBC WITH WBC DIFFERENTIAL Lab Routine Iron deficiency anemia 11/29/2022 9:48 AM EDT APTT Lab Routine Coronary artery disease involving [place] coronary artery of [place] heart without angina pectoris Chest pain, unspecified type Dyslipidemia, goal LDL below 70 Atherosclerosis of [place] coronary artery of [place] heart without angina pectoris 11/29/2022 9:48 AM EDT BASIC METABOLIC PANEL Lab Routine Coronary artery disease involving [place] coronary artery of [place] heart without angina pectoris Chest pain, unspecified type Dyslipidemia, goal LDL below 70 Atherosclerosis of [place] coronary artery of [place] heart without angina pectoris 11/29/2022 9:48 AM EDT PT INR Lab Routine Coronary artery disease involving [place] coronary artery of [place] heart without angina pectoris Chest pain, unspecified type Dyslipidemia, goal LDL below 70 Atherosclerosis of [place] coronary artery of [place] heart without angina pectoris 11/29/2022 9:48 AM EDT CBC Lab Routine Iron deficiency anemia 11/29/2022 9:48 AM EDT DIFFERENTIAL, AUTOMATED Lab Routine Iron deficiency anemia 11/29/2022 9:48 AM EDT Scheduled Procedures Name Priority Associated Diagnoses Date/Ti me CORONARY ANGIOGRAPHY W/LEFT HEART CATH CAD (coronary artery disease) Chest pain, unspecified type 12/02/2022 10:00 AM EDT ESOPHAGOGASTRODUODENOSCOPY ( EGD), FLEXIBLE, TRANSORAL, DIAGNOSTIC Recall Henning esophagus COLONOSCOPY FLEXIBLE PROXIMA L DIAGNOSTIC Recall History of colon polyps Health Maintenance Due Date Last Done Comments Alpha-1 Antitrypsin 1960 Zoster Vaccines (1 of 2) 1961 Henning's Esophagus Surveilance 06/24/2018 06/25/2015, 12/05/2013 DIABETES-EYE EXAM 09/18/2022 09/18/2021, , 06/03/2020, Additional history exists COVID-19 Vaccine ( season) 2022 06/04/2021, 12/09/2020, 05/09/2020, Additional history exists HbA1c 04/08/2023 10/06/2022, 03/0 10/2022, 10/22/2021, Additional history exists Albumin/Creatinine Ratio 04/23/2023 023, 03/24/2022, 06/19/2021, Additional history exists GFR 05/21/2023 11/19/2022, 10/16, 10/26/2022, Additional history exists Depression Screening 05/29/2023 05/28/2022 Diabetic Foot Exam 05/29/2023 05/28/2022, 0 04/24/2020, 12/20/2018, Additional history exists O2 ASSESSMENT COMPLETED IN PAST YEAR FOR COPD 11/04/2023 11/03/2022 COLONOSCOPY-EVERY 5 YRS AGES 18-100 10/31/2025 10/31/2020, [...] this encounter Medical Devices Implanted Type Area Traffic Control Flagger Device Identifier Shelf Expiration Date Model / Serial / Lot Sut Steel 6 [id number] - [id number] Implanted:Qty: 6 on 07/10/2008 at OR [facility] N/A: Chest DO NOT USE 08/14/2012 [id number] / / [id number] documented as of this encounter Visit Diagnoses Diagnosis Iron deficiency anemia Iron deficiency anemia, unspecified Coronary artery disease involving [place] coronary artery of [place] heart without angina pectoris Chest pain, unspecified type Dyslipidemia, goal LDL below 70 Other and unspecified hyperlipidemia Atherosclerosis of [place] coronary artery of [place] heart without angina pectoris CAD (coronary artery disease) Coronary atherosclerosis of unspecified type of vessel, [place] or graft Chest pain, unspecified type documented in this encounter Additional Health Concerns Infection Onset Date Last Indicated Resolved Time C. difficile 11/05/2022 11/05/2022 documented as of this encounter Advance Directives Documents on File Type Date Recorded Patient Lead Advisor Expl anation Power of Splitting Machine Tender 06/26/2019 POWER OF A TTORNEY Advance Directives [...] the patient have Health Care Power of Splitting Machine Tender? No Code Status History Code Status Date [...] patient or by statute hierarchy) Care Teams Ground Operations Supervisor Relationship Specialty Start Date End Date Nicola Prado MD [address] [place] [address] [place] [phone] PCP - General Family Medicine 06/19/21 documented as of this encounter
--- OUTSIDE RECORDS SUMMARY | 2023-02-03 20:21 | External Medical Summary | Summary of Care ---
Author Name Unknown Organization [facility] Address [address] [place] [address] Phone [phone] Care Team Providers Care Data Management Engineer Name Role Phone Nicola Prado MD Primary Care Provide r Reason for Visit * Reason Onset Date Comments Abnormal Test Results 11/24/2022 Encounter Details Date Type Department Care Team Description 11/24/2022 Telephone Cardiology [place] [address] [place] [phone] Nevaeh Linda PA-C [address] [place] [id number] Abnormal Test Results Allergies Active Allergy Reactions Severity Noted Date Comments Hydromorphone High 09/20/2021 Other reaction(s): Nausea Other reaction(s): Nausea 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/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 Other reaction(s): AMS Other reaction(s): AMS Prasugrel 04/02/2016 bleeding Prednisone High 09/20/2021 Other reaction(s): INCREASE BLOOD SUGAR Other reaction(s): INCREASE BLOOD SUGAR documented as of this encounter (statuses as of 11/25/2022) Medications Medication Sig Dispensed Refills Start Date [...] Tablet 1 05/05/2022 Active Easy Touch Pen Climax 31G X 8 MM (Insulin Pen Needle)Indications:T ype 2 diabetes mellitus with hemoglobin A1c goal of less than 8.0% ([facility]),Type 2 diabetes mellitus with stage 4 chronic kidney disease, unspecified whether usp insulin use (HCC) Use up to six times daily with insulin. DXe11.9 600 Each 3 05/22/2022 Active Albuterol Sulfate HFA 108 (90 Base) MCG/ACT Inhalation Aerosol SolutionIndications: COPD exacerbation ([facility]),Chronic cough Inhale by mouth 2 [...] as of this encounter (statuses as of 11/25/2022) Active Problems Problem Noted Date Atherosclerosis of coronary artery bypass graft of [place] heart with angina pectoris 10/13/2022 Encounter for [...] urinary tr act symptoms 07/13/2001 Atherosclerosis of [place] co ronary artery of [place] heart without angina pectoris Morbid obesity with BMI of 40.0-44.9, ad ult documented as of this encounter (statuses as of 11/25/2022) Resolved Problems Problem Noted Date Resolved Date [...] use aero chamber. Test performed by Dori FILTER WASHER CPFT Body mass index (BMI) of 45.0 [...] (transient ischemic attack) 02/04/2016 11/23/2017 Overview: [facility] Anemia of chronic renal failure 07/30/2015 [...] 07/22/2008 0 Overview: Kianna Lyn, RN [phone] Examination following surgery 07/11/2008 Difficult intubation 07/10/2008 02/19/2020 Overview: Patient seen and examined in OR#1.Possible difficult intubation.TM distance about 5 cms.MP 3-4. Will plan FOB electively Due to current situation. EXAMINATION OF PARTICIPANT IN CLINICAL TRIAL-gen omics 07/04/2008 05/30/2009 Overview: Renamed Per Clinical Trials Billing Project. Study Titile: Genomic Markers for Patients with Cardiovascular Disease Project #[id number] PI: Miriam Roque MD Please call [phone] with study related questions Chronic coronary artery [...] at goal 07/04/2008 9 GENOMICS CARDIO RESEARCH OTHER*[id number] 200803/23/2016 Overview: Renamed Per Clinical Trials Billing Project. Study Titile: Genomic Markers for Patients with Cardiovascular Disease Project #[id number] PI: Miriam Roque MD Please call [phone] with study related questions Kidney disease, chronic, [...] as of this encounter (statuses as of 11/25/2022) Immunizations Name Administration Dates Next Due COVID-19 mRNA, LNP-s, No Pre serve, 2-Dose Series ([employer]) 12/09/2020,05/09/2020,04/11/2020 COVID-19, LNP-s, No Preserve , [...] encounter Miscellaneous Notes * Telephone Encounter - Curt Reddy RN - 11/25/2022 2:20 PM EDT Called and left message for Cedric to call us back from dairy and food laboratory assistant [facility] in [place] to set up cardiac cath for this patient. * Telephone Encounter - Nevaeh Linda PA-C - 11/24/2022 12:39 PM EDT Nuclear stress test reviewed. Abnormal stress test demonstrating a small apical infarct with mild jose-infarct ischemia, LVEF 68%. Called patient to discuss results. Recommend cardiac catheterizationfor further ischemic workup due to chest pain and shortness of breath. Patient agreeable, states hehas had several catheterizations in the past. Please assist in scheduling catheterization in [place]. Orders placed. documented in this encounter Plan of Treatment Upcoming Encounters Date Type Specialty Care Team Description 11/30/2022 Office Visit Urology Denny Armando MD [address] [place] [address] [place] [address] 12/09/[address] [place] [address] 12/13/2022 Office Visit Cardiology Nevaeh Linda PA-C [address] [place] [address] 12/15/2022 Office Visit Family Medicine Nicola Prado MD [address] [place] [address] [place] [address] 12/20/2022 Office Visit Dermatology Meron Aragon PA-C [address] [place] [address] [place] [address] 01/28/2023 [facility] [address] 03/04/2023 Office Visit Gastroenterology Marielena Hall CRNP [address] [place] [address] 03/29/2023 Office Visit Cardiology Blair Hannah PA-C [address] [place] [address] 06/02/2023 Nurse Only Ancillary Nurse Neeraj [address] [place] [address] 10/12/2023 Office Visit Sleep Disorders Eulalia Milligan DO [address] [place] [address] 10/25/2023 Cardiac Studies Cardiology Keith Pickard [facility] [address] [place] [address] Scheduled Orders Name Type Priority Associated Diagnoses Orde r Schedule APTT Lab Routine Coronary artery disease involving lower [place] coronary artery of lower [place] heart without angina pectoris Chest pain, unspecified type Dyslipidemia, goal LDL below 70 Atherosclerosis of lower [place] coronary artery of [place] heart without angina pectoris Expected: 11/24/2022, Expires: 11/25/2023 BASIC METABOLIC PANEL Lab Routine Coronary artery disease involving [place] coronary artery of [place] heart without angina pectoris Chest pain, unspecified type Dyslipidemia, goal LDL below 70 Atherosclerosis of [place] coronary artery of [place] heart without angina pectoris Expected: 11/24/2022, Expires: 11/25/2023 CARDIAC CATH-CARDIOLOGY ONLY Procedures Routine Coronary artery disease involving [place] coronary artery of [place] heart without angina pectoris Chest pain, unspecified type Dyslipidemia, goal LDL below 70 Atherosclerosis of [place] coronary artery of [place] heart without angina pectoris Ordered: 11/24/2022 CBC Lab Routine Coronary artery disease involving [place] coronary artery of [place] heart without angina pectoris Chest pain, unspecified type Dyslipidemia, goal LDL below 70 Atherosclerosis of [place] coronary artery of [place] heart without angina pectoris Expected: 11/24/2022, Expires: 11/25/2023 EKG EKG Routine Coronary artery disease involving [place] coronary artery of lower [place] heart without angina pectoris Chest pain, unspecified type Dyslipidemia, goal LDL below 70 Atherosclerosis of [place] coronary artery of [place] heart without angina pectoris Ordered: 11/24/2022 PT INR Lab Routine Coronary artery disease involving [place] coronary artery of lower [place] heart without angina pectoris Chest pain, unspecified type Dyslipidemia, goal LDL below 70 Atherosclerosis of [place] coronary artery of [place] heart without angina pectoris Expected: 11/24/2022, Expires: 11/25/2023 XR CHEST 2 VIEWS Medical Imaging Routine Coronary artery disease involving [place] coronary artery of lower [place] heart without angina pectoris Chest pain, unspecified type Dyslipidemia, goal LDL below 70 Atherosclerosis of lower [place] coronary artery of lower [place] heart without angina pectoris Ordered: 11/24/2022 Scheduled Procedures Name Priority Associated Diagnoses Date/Ti [...] this encounter Medical Devices Implanted Type Area Aligner Barrel And Receiver Device Identifier Shelf Expiration Date Model / Serial / Lot Sut Steel 6 [id number] - [id number] Implanted:Qty: 6 on 07/10/2008 [place] [facility] [place]/A: Chest DO NOT USE 08/14/2012 [id number] / / [id number] documented as of this encounter Visit Diagnoses Diagnosis Coronary artery disease involving [place] coronary artery of [place] heart without angina pectoris- Primary Chest pain, unspecified type Dyslipidemia, goal LDL below 70 Other and unspecified hyperlipidemia Atherosclerosis of lower [place] coronary artery of [place] heart without angina pectoris documented in this encounter Additional Health Concerns Infection Onset Date Last Indicated Resolved Time C. difficile 11/05/2022 11/05/2022 documented as of this encounter Advance Directives Documents on File Type Date Recorded Patient Hire Car Driver Expl anation Power of Cyber Defense Incident Responder 06/26/2019 POWER OF A TTORNEY Advance Directives [...] the patient have Health Care Power of Cyber Defense Incident Responder? No Code Status History Code Status Date [...] patient or by statute hierarchy) Care Teams Data Management Engineer Relationship Specialty Start Date End Date Nicola Prado MD [address] [place] [address] [place] [address] PCP - General Family Medicine 06/19/21 documented as of this encounter
--- OUTSIDE RECORDS SUMMARY | 2023-02-03 20:21 | External Medical Summary | Summary of Care ---
Author Name Unknown Organization [facility] Address [address] [place] [address] Phone [phone] Care Team Providers Care Power Saw Mechanic Name Role Phone Nicola Menard MD Primary Care Provide r Reason for Visit * Reason Comments eRx-Medication Refill Encounter Details Date Type Department Care Team Description 11/30/2022 Refill Family Medicine [address] [phone] Nicola Menard MD [address] [place] [address] [place] [id number] COPD exacerbation (HCC); Chronic cough Allergies Active Allergy Reactions Severity Noted Date Comments Hydromorphone High 09/20/2021 Other reaction(s): Nausea Other reaction(s): Nausea 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/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 Other reaction(s): AMS Other reaction(s): AMS Prasugrel 04/02/2016 bleeding Prednisone High 09/20/2021 Other reaction(s): INCREASE BLOOD SUGAR Other reaction(s): INCREASE BLOOD SUGAR documented as of this encounter (statuses as of 12/01/2022) Medications Medication Sig Dispensed Refills Start Date End Date Status ASPIRIN 81 MG PO CHEWIndications:Un stable angina (HCC),Chronic coronary artery disease,Difficult intubation 1 Tab Oral Daily 1 0 9 Active oxygen IN GAS Use 2 L/min(Oxygen) as directed daily. 2.5 LPMBled through bipap And 2 LPM with exertion DME: ASHANTI 1 Each 0 1 Active Additional Information Patient taking differently:2 L/min(Oxygen) [...] 2 Active Betamethasone Dipropionate 0.05 % External OintmentIndication [...] 90 Tablet 3 2 Active OneTouch UltraSoft LancetsIndications :Type 2 diabetes mellitus with hemoglobin A1c goal of less than 8.0% ([facility]) Test blood sugar up to five [...] Tablet 1 3 Active Easy Touch Pen [place] 31G X 8 MM (Insulin Pen Needle)Indications :Type 2 diabetes mellitus with hemoglobin A1c goal of less than 8.0% (HCC),Type 2 diabetes mellitus with stage 4 chronic kidney disease, unspecified whether buttermaker continuous churn insulin use ([facility]) Use up to six times daily with insulin. DXe11.9 600 Each 3 3 Active Victoza 18 MG/3ML Subcutaneous Solution Pen-injector (Liraglutide)Indic ations:Type 2 diabetes mellitus with hemoglobin A1c goal of less than 8.0% ([facility]),Type 2 diabetes mellitus with stage 4 chronic kidney disease, with long-term current use of insulin ([facility]) Inject 1.8 mg under the [...] 90 mL 3 3 Active Octreotide Acetate 10 MG Intramuscular Kit (SandoSTATIN [place]) Inject 10 mg into a large muscle every month. 1 Kit 12 3 Active Octreotide Acetate 50 MCG/ML Injection Solution (Sandostatin) Inject 50mcg under the skin in the morning and the evening. 180 mL 1 3 Active Omeprazole 20 MG Oral Capsule Delayed Release (PriLOSEC) Take 1 Capsule BY MOUTH in the morning AND 1 Capsule before bedtime. 60 Capsule 3 3 Active Vancomycin HCl 125 MG Oral Capsule (Vancocin) Take 1 Capsule by mouth every 6 hours. For 7 days 28 Capsule 0 3 Active Additional Information Patient not taking.Reported on 11/30/2022 Isosorbide Mononitrate ER 60 MG Oral Tablet Extended Release 24 Hour (Imdur)Indications :Chronic diastolic heart failure (HCC) Take 1 Tablet by mouth in the morning. 90 Tablet 3 3 Active Enbrel SureClick 50 MG/ML Subcutaneous Solution Auto-injector (Etanercept)Indica tions:H/O psoriasis,Polyarti cular psoriatic arthritis (HCC) Inject 50 mg under the skin once a week. 4 mL 1 3 Active Albuterol Sulfate HFA 108 (90 Base) MCG/ACT Inhalation Aerosol SolutionIndication s:COPD exacerbation (HCC),Chronic cough Inhale 2 Puffs by mouth every 4 hours as needed for Cough or Shortness of Breath. 18 g 2 3 Active Albuterol Sulfate HFA 108 (90 Base) MCG/ACT Inhalation Aerosol SolutionIndication s:COPD exacerbation (HCC),Chronic cough Inhale by mouth 2 Puffs every 4 hours as needed for Cough or Shortness of Breath. Reports doesn't help 18 g 2 3 12/02/19 23 Discontinued Hospital, Clinic, or Other Facility [...] as of this encounter (statuses as of 12/01/2022) Active Problems Problem Noted Date Atherosclerosis of coronary artery bypass graft of [place] heart with angina pectoris 10/13/2022 Encounter for [...] 02/22/2022 Stage 3b chronic kidney disease 02/22/19 23 Plaque psoriasis 02/22/2022 HTN, goal below 140/90 [...] urinary tr act symptoms 07/13/2001 Atherosclerosis of [place] co ronary artery of [place] heart without angina pectoris Morbid obesity with BMI of 40.0-44.9, ad ult documented as of this encounter (statuses as of 12/01/2022) Resolved Problems Problem Noted Date Resolved Date [...] BURROUGHS CPFT Body mass index (BMI) of 45.0 [...] TIA (transient ischemic attack) 02/04/2016 11/23/2017 Overview: [facility] Anemia of chronic renal failure 07/30/2015 01/27/2017 [...] MANAGEMENT 07/22/2008 0 Overview: Kianna Lyn RN [phone] Examination following surgery 07/11/2008 Difficult intubation 07/10/2008 02/19/2020 Overview: Patient seen and examined in OR#1.Possible difficult intubation.TM distance about 5 cms.MP 3-4. Will plan FOB electively Due to current situation. EXAMINATION OF PARTICIPANT IN CLINICAL TRIAL-gen omics 07/04/2008 05/30/2009 Overview: Renamed Per Clinical Trials Billing Project. Study Hayley: Genomic Markers for Patients with Cardiovascular Disease Project #[id number] PI: Miriam Roque MD Please call [phone] with study related questions Chronic coronary artery [...] at goal 07/04/2008 9 GENOMICS CARDIO RESEARCH OTHER*[id number] 200803/23/2016 Overview: Renamed Per Clinical Trials Billing Project. Study Titile: Genomic Markers for Patients with Cardiovascular Disease Project #[id number] PI: Miriam Roque MD Please call [phone] with study related questions Kidney disease, chronic, [...] as of this encounter (statuses as of 12/01/2022) Immunizations Name Administration Dates Next Due COVID-19 [...] encounter Miscellaneous Notes * Telephone Encounter - Traci Arriaga RPh - 12/01/2022 6:33 AM EDTSigned Prescriptions: Disp Refills Albuterol Sulfate HFA 108 (90 Base) MCG/AC*18 g 2 Sig: Inhale 2 Puffs by mouth every 4 hours as needed for Cough or Shortness of Breath.Authorizing Provider: Luis MENARD User: TRACI ARRIAGA documented in this encounter Plan of Treatment Upcoming Encounters Date Type Specialty Care Team Description 12/02/2022 Hospital Encounter Cardiac Closing Specialist Carrie Nation MD [address], [place] [phone] 12/02/2022 Surgery Cardiac Closing Specialist Carrie Nation MD [address], [place] [phone] CORONARY ANGIOGRAPHY W/LEFT HEART CATH 12/02/2022 Office Visit Cardiology [place], Cardiac Recovery [facility] [address], [place] [phone] 12/09/[address] [place] [phone] 12/13/2022 Office Visit Cardiology Nevaeh Linda PA-C [address] [place] [address] 12/20/2022 Office Visit Dermatology Meron Aragon PA-C [address] [place] [address] [place] [address] 12/27/2022 Office Visit Family Medicine Nicola Menard MD [address] [place] [address] [place] [address] 01/28/2023 Office Visit Nephrology Verito Jovel PA-C [address] [place] [address] 03/04/2023 Office Visit Gastroenterology Marielena Hall CRNP [address] [place] [address] 03/29/2023 Office Visit Cardiology Blair Hannah PA-C [address] [place] [address] 04/05/2023 Office Visit Urology Denny Armando MD [address] [address] [place] [address] 06/02/2023 Nurse Only Ancillary Nurse Neeraj Annual [address] [place] [address] 10/12/2023 Office Visit Sleep Disorders Eulalia Milligan, [address] [place] [address] 10/25/2023 Cardiac Studies Cardiology Keith Pickrad [facility] [address] [place] [address] Scheduled Procedures Name Priority Associated Diagnoses Date/Ti [...] 05/31/2023 11/29/2022, 10/07/2022, 11/03/2022, Additional history exists O2 ASSESSMENT COMPLETED [...] this encounter Medical Devices Implanted Type Area First Assist Device Identifier Shelf Expiration Date Model / Serial / Lot Sut Steel 6 [id number] - [id number] Implanted:Qty: 6 on 07/10/2008 at OR [facility] N/A: Chest DO NOT USE 08/14/2012 [id number] / / [id number] documented as of this encounter Visit Diagnoses Diagnosis COPD exacerbation (HCC) Obstructive chronic bronchitis with exacerbation Chronic cough Cough CAD (coronary artery disease) Coronary atherosclerosis of unspecified type of vessel, [place] or graft Chest pain, unspecified type documented in this encounter Additional Health Concerns Infection Onset Date Last Indicated Resolved Time C. difficile 11/05/2022 11/05/2022 documented as of this encounter Advance Directives Documents on File Type Date Recorded Patient Ux Designer Expl anation Power of Shearing Machine Feeder 06/26/2019 POWER OF A TTORNEY Advance Directives [...] the patient have Health Care Power of Shearing Machine Feeder? No Code Status History Code Status Date [...] patient or by statute hierarchy) Care Teams Power Saw Mechanic Relationship Specialty Start Date End Date Nicola Menard MD [address] [place] [address] [place] [address] PCP - General Family Medicine 06/19/21 documented as of this encounter
--- OUTSIDE RECORDS SUMMARY | 2023-02-03 20:21 | External Medical Summary ---
Author Name Unknown Address Unknown Organization [id number]:[facility] [place] [address] [place] [address] Laboratory Report Ordering Provider Test Date Status [place] 11/29/2022 09:48:33 Final Observation Date Value Abnormality Reference (Units ) Status WBC, Total 11/29/2022 09:48:33 12.00 Above high normal 4 .00-10.80 (K/uL) Final RBC 11/29/2022 09:48:33 3.84 4.50-5.25 (M/uL) Final Hemoglobin 11/29/2022 09:48:33 11.9 Below low normal 14 .0-16.8 (g/dL) Final HCT 11/29/2022 09:48:33 36.8 Below low normal 40. 0-48.4 (%) Final MCV 11/29/2022 09:48:33 95.8 82.0-99.5 (fL) Final MCH 11/29/2022 09:48:33 31.0 27.0-34.0 (pg) Final MCHC 11/29/2022 09:48:33 32.3 32.0-36.0 (g/dL) Final RDW 11/29/2022 09:48:33 15.7 11.5-15.5 (%) Final Platelets 11/29/2022 09:48:33 238 140-400 (K /uL) Final MPV 11/29/2022 09:48:33 9.4 6.6-11.1 ( fL) Final Performing Location [facility] [place] [address] [place] [address]
--- OUTSIDE RECORDS SUMMARY | 2023-02-03 20:21 | External Medical Summary | Summary of Care ---
Author Name Unknown Organization [facility] Address [address] [place] [address] Phone [phone] Care Team Providers Care Other Wood Processing Machine Operator Name Role Phone Nicola Prado MD Primary Care Provide r Reason for Visit * Reason Onset Date Comments Abnormal Test Results 11/24/2022 Encounter Details Date Type Department Care Team Description 11/24/2022 Telephone Cardiology GerberLauren Camejo [address] [place] [phone] Nevaeh Linda PA-C [address] [place] [phone] Abnormal Test Results Allergies Active Allergy Reactions [...] A1c goal of less than 8.0% ([facility]) Test blood sugar up to five times [...] Tablet 1 05/05/2022 Active Easy Touch Pen [place] 31G X 8 MM (Insulin Pen Needle)Indications:T ype 2 diabetes mellitus with hemoglobin A1c goal of less than 8.0% ([facility]),Type 2 diabetes mellitus with stage 4 chronic kidney disease, unspecified whether halfway insulin use (HCC) Use up to six times daily with insulin. DXe11.9 600 Each 3 05/22/2022 Active Albuterol Sulfate HFA 108 (90 Base) MCG/ACT Inhalation Aerosol SolutionIndications: COPD exacerbation ([facility]),Chronic cough Inhale by mouth 2 Puffs every 4 hours as needed for Cough or Shortness of Breath. Reports doesn't help 18 g 2 05/27/2022 Active Victoza 18 MG/3ML Subcutaneous Solution Pen-injector (Liraglutide)Indicat ions:Type 2 diabetes mellitus with hemoglobin A1c goal of less than 8.0% ([facility]),Type 2 diabetes mellitus with stage 4 chronic [...] Release 12 Hour (Mucinex)Indications :COPD exacerbation ([facility]) Take 1 Tablet by mouth 2 times a day as needed for Congestion. Take with plenty of water. Do not cut, crush or chew 40 Tablet 0 10/13/2022 Active Tresiba FlexTouch 200 UNIT/ML Subcutaneous Solution Pen-injector (Insulin Degludec)Indications :Type 2 diabetes mellitus with hemoglobin A1c goal of less than 8.0% ([facility]) Inject 100 Units under the skin daily. [...] Atherosclerosis of coronary artery bypass graft of [place] heart with angina pectoris 10/13/2022 Encounter for [...] urinary tr act symptoms 07/13/2001 Atherosclerosis of [place] co ronary artery of [place] heart without angina pectoris Morbid obesity with [...] use aero chamber. Test performed by Dori HAM ROLLING MACHINE OPERATOR CPFT Body mass index (BMI) of 45.0 [...] (transient ischemic attack) 02/04/2016 11/23/2017 Overview: [facility] Anemia of chronic renal failure 07/30/2015 [...] 07/22/2008 0 Overview: Kianna Lyn, RN [phone] Examination following surgery 07/11/2008 Difficult intubation 07/10/2008 02/19/2020 Overview: Patient seen and examined in OR#1.Possible difficult intubation.TM distance about 5 cms.MP 3-4. Will plan FOB electively Due to current situation. EXAMINATION OF PARTICIPANT IN CLINICAL TRIAL-gen omics 07/04/2008 05/30/2009 Overview: Renamed Per Clinical Trials Billing Project. Study Titile: Genomic Markers for Patients with Cardiovascular Disease Project #[id number] PI: Miriam Roque MD Please call [phone] with study related questions Chronic coronary artery [...] at goal 07/04/2008 9 GENOMICS CARDIO RESEARCH OTHER*[id number] 200803/23/2016 Overview: Renamed Per Clinical Trials Billing Project. Study Titile: Genomic Markers for Patients with Cardiovascular Disease Project #[id number] PI: Miriam Roque MD Please call [phone] with study related questions Kidney disease, chronic, [...] mRNA, LNP-s, No Pre serve, 2-Dose Series (Mineful) 12/09/2020,05/09/2020,04/11/2020 COVID-19, LNP-s, No Preserve , Juan [...] Encounter - Curt Reddy RN - 11/25/2022 3:02 PM EDT Cedric from [place] cardiac labor conciliator phoned back and the patient will be scheduled for Cardiac Cath on 12/02/2022 to be there at 10:00 am. Patient notified and he will be here on Tuesday to get all his pre-op work done. Please add the patient to the schedule for EKG at 9 am on Tuesday11/29/2022. * Telephone Encounter - Curt Reddy RN - 11/25/2022 2:20 PM EDT Called and left message for Cedric to call us back from labor conciliator [facility] in [place] to set up cardiac cath for this [...] past. Please assist in scheduling catheterization in [place]. Orders placed. documented in this encounter Plan of Treatment Upcoming Encounters Date Type Specialty Care Team Description 11/30/2022 Office Visit Urology Denny Armando MD [address] [place] [address] 12/09/[address] [place] [address] 12/13/2022 Office Visit Cardiology Nevaeh Linda PA-C [address] [facility] [place] [address] 12/15/2022 Office Visit Family Medicine Nicola Prado MD [address] [place] [address] [place] [address] 12/20/2022 Office Visit Dermatology Meron Aragon PA-C [address] [place] [address] [place] [address] 01/28/2023 Office Visit Nephrology Verito Jovel PA-C [address] [place] [address] 03/04/2023 Office Visit Gastroenterology Marielena Hall CRNP [address] [place] [address] 03/29/2023 Office Visit Cardiology Blair Hannah PA-C [address] [place] [address] 06/02/2023 Nurse Only Ancillary Neeraj, Nurse Annual [address] [place] [address] 10/12/2023 Office Visit Sleep Disorders Eulalia Milliganaret, DO [address] [place] [address] 10/25/2023 Cardiac Studies Cardiology Neeraj, Pacer Clinic [facility] [address] [place] [address] Scheduled Orders Name Type Priority Associated Diagnoses Orde r Schedule APTT Lab Routine Coronary artery disease involving huslia coronary artery of hus[place] heart without angina pectoris Chest pain, unspecified type Dyslipidemia, goal LDL below 70 Atherosclerosis of [place] coronary artery of [place] heart without angina pectoris Expected: 11/24/2022, Expires: 11/25/2023 BASIC METABOLIC PANEL Lab Routine Coronary artery disease involving [place] coronary artery of [place] heart without angina pectoris Chest pain, unspecified type Dyslipidemia, goal LDL below 70 Atherosclerosis of [place] coronary artery of [place] heart without angina pectoris Expected: 11/24/2022, Expires: 11/25/2023 CARDIAC CATH-CARDIOLOGY ONLY Procedures Routine Coronary artery disease involving [place] coronary artery of [place] heart without angina pectoris Chest pain, unspecified type Dyslipidemia, goal LDL below 70 Atherosclerosis of [place] coronary artery of [place] heart without angina pectoris Ordered: 11/24/2022 CBC Lab Routine Coronary artery disease involving [place] coronary artery of [place] heart without angina pectoris Chest pain, unspecified type Dyslipidemia, goal LDL below 70 Atherosclerosis of [place] coronary artery of [place] heart without angina pectoris Expected: 11/24/2022, Expires: 11/25/2023 EKG EKG Routine Coronary artery disease involving [place] coronary artery of [place] heart without angina pectoris Chest pain, unspecified type Dyslipidemia, goal LDL below 70 Atherosclerosis of [place] coronary artery of [place] heart without angina pectoris Ordered: 11/24/2022 PT INR Lab Routine Coronary artery disease involving [place] coronary artery of [place] heart without angina pectoris Chest pain, unspecified type Dyslipidemia, goal LDL below 70 Atherosclerosis of [place] coronary artery of [place] heart without angina pectoris Expected: 11/24/2022, Expires: 11/25/2023 XR CHEST 2 VIEWS Medical Imaging Routine Coronary artery disease involving [place] coronary artery of [place] heart without angina pectoris Chest pain, unspecified type Dyslipidemia, goal LDL below 70 Atherosclerosis of [place] coronary artery of [place] heart without angina pectoris Ordered: 11/24/2022 Scheduled [...] this encounter Medical Devices Implanted Type Area Golf Ball Winder Device Identifier Shelf Expiration Date Model / Serial / Lot Sut Steel 6 M654g - [id number] Implanted:Qty: 6 on 07/10/2008 at OR [facility] N/A: Chest DO NOT USE 08/14/2012 [id number] / / [id number] documented as of this encounter Visit Diagnoses Diagnosis Coronary artery disease involving [place] coronary artery of [place] heart without angina pectoris- Primary Chest pain, unspecified type Dyslipidemia, goal LDL below 70 Other and unspecified hyperlipidemia Atherosclerosis of [place] coronary artery of [place] heart without angina pectoris documented in this encounter Additional Health Concerns Infection Onset Date Last Indicated Resolved Time C. difficile 11/05/2022 11/05/2022 documented as of this encounter Advance Directives Documents on File Type Date Recorded Patient Loft Worker Expl anation Power of Commercial Relief Driver 06/26/2019 POWER OF A TTORNEY Advance Directives [...] the patient have Health Care Power of Commercial Relief Driver? No Code Status History Code Status Date [...] patient or by statute hierarchy) Care Teams Other Wood Processing Machine Operator Relationship Specialty Start Date End Date Nicola Prado MD [address] [place] [address] [place] [address] PCP - General Family Medicine 06/19/21 documented as of this encounter
--- OUTSIDE RECORDS SUMMARY | 2023-02-03 20:21 | External Medical Summary ---
Author Name Unknown Address Unknown Organization K01:[facility] [address] [place] [address] Laboratory Report Ordering Provider Test Date Status NATALIIA KEBEDE 11/29/2022 09:48:33 Final Observation Date Value Abnormality Reference (Units ) Status PSA 11/29/2022 09:48:33 0.70 <4.10 (ng/ mL) Final Performing Location [facility] [address] [place] [address]
--- OUTSIDE RECORDS SUMMARY | 2023-02-03 20:21 | External Medical Summary ---
Author Name Unknown Address Unknown Organization K0G:[facility] [address] [place] [address] Laboratory Report Ordering Provider Test Date Status MARY OLVERA 11/29/2022 09:48:33 Final Anticoagulation may affect t esting. Refer to [facility] Test Catalog for a list of effects. Observation Date Value Abnormality Reference (Units ) Status aPTT panel - Platelet poor plasma 11/29/2022 09:48:33 28 21-38 (seconds) Final Performing Location [facility] [address] [place] [address]
--- OUTSIDE RECORDS SUMMARY | 2023-02-03 20:21 | External Medical Summary | Summary of Care ---
Author Name Unknown Organization [facility] Address [address] [place] [address] Phone [phone] Care Team Providers Care Volunteer Recruiter Name Role Phone Nicola Prado MD Primary Care Provide r Reason for Visit * Reason Onset Date Comments Abnormal Test Results 11/24/2022 Encounter Details Date Type Department Care Team Description 11/24/2022 Telephone Cardiology [place] [address] [place] [id number] Nevaeh Linda PA-C [address] [place] [phone] Abnormal Test Results Allergies Active Allergy Reactions [...] goal of less than 8.0% ([facility]) Test blood sugar up to five times [...] Tablet 1 05/05/2022 Active Easy Touch [place] 31G X 8 MM (Insulin Pen Needle)Indications:T ype 2 diabetes mellitus with hemoglobin A1c goal of less than 8.0% ([facility]),Type 2 diabetes mellitus with stage 4 chronic kidney disease, unspecified whether chcf insulin use (HCC) Use up to six times daily with insulin. DXe11.9 600 Each 3 05/22/2022 Active Albuterol Sulfate HFA 108 (90 Base) MCG/ACT Inhalation Aerosol SolutionIndications: COPD exacerbation ([facility]),Chronic cough Inhale by mouth 2 Puffs every 4 hours as needed for Cough or Shortness of Breath. Reports doesn't help 18 g 2 05/27/2022 Active Victoza 18 MG/3ML Subcutaneous Solution Pen-injector (Liraglutide)Indicat ions:Type 2 diabetes mellitus with hemoglobin A1c goal of less than 8.0% ([facility]),Type 2 diabetes mellitus with stage 4 chronic [...] Extended Release 12 Hour (Mucinex)Indications :COPD exacerbation ([facility]) Take 1 Tablet by mouth 2 times a day as needed for Congestion. Take with plenty of water. Do not cut, crush or chew 40 Tablet 0 10/13/2022 Active Tresiba FlexTouch 200 UNIT/ML Subcutaneous Solution Pen-injector (Insulin Degludec)Indications :Type 2 diabetes mellitus with hemoglobin A1c goal of less than 8.0% ([facility]) Inject 100 Units under the skin daily. 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 Test performed by Dori POWER ELECTRONICS RESEARCH ENGINEER CPFT Body mass index (BMI) of 45.0 [...] 07/22/2008 0 Overview: Kianna Lyn, RN [phone] Examination following surgery 07/11/2008 Difficult intubation 07/10/2008 02/19/2020 Overview: Patient seen and examined in OR#1.Possible difficult intubation.TM distance about 5 cms.MP 3-4. Will plan FOB electively Due to current situation. EXAMINATION OF PARTICIPANT IN CLINICAL TRIAL-gen omics 07/04/2008 05/30/2009 Overview: Renamed Per Clinical Trials Billing Project. Study Titile: Genomic Markers for Patients with Cardiovascular Disease Project #[id number] PI: Miriam Roque MD Please call [phone] with study related questions Chronic coronary artery [...] at goal 07/04/2008 9 GENOMICS CARDIO RESEARCH OTHER*[id number] 200803/23/2016 Overview: Renamed Per Clinical Trials Billing Project. Study Titile: Genomic Markers for Patients with Cardiovascular Disease Project #[id number] PI: Miriam Roque MD Please call [phone] with study related questions Kidney disease, chronic, [...] mRNA, LNP-s, No Pre serve, 2-Dose Series ([employer]) 12/09/2020,05/09/2020,04/11/2020 COVID-19, LNP-s, No Preserve , Juan [...] Miscellaneous Notes * Telephone Encounter - KATHE Calderón - 11/25/2022 3:10 PM EDT Pt scheduled. * Telephone Encounter - Curt Reddy RN - 11/25/2022 3:02 PM EDT Cedric from [place] cardiac clinical laboratory science professor phoned back and the patient will be [...] for Cedric to call us back from clinical laboratory science professor [facility] in [place] to set up cardiac cath for this [...] past. Please assist in scheduling catheterization in [place]. Orders placed. documented in this encounter Plan of Treatment Upcoming Encounters Date Type Specialty Care Team Description 11/29/2022 Cardiac Studies Cardiac Studies 11/30/2022 Office Visit Urology Denny Armando MD [address] [address] [place] [address] 12/09/[address] [place] [address] 12/13/2022 Office Visit Cardiology Nevaeh Linda PA-C [address] [facility] [place] [address] 12/15/2022 Office Visit Family Medicine Nicola Prado MD [address] [place] [address] [place] [address] 12/20/2022 Office Visit Dermatology Meron Aragon PA-C [address] [place] [address] [place] [address] 01/28/2023 Office Visit Nephrology Verito Jovel PA-C [address] [facility] [place] [address] 03/04/2023 Office Visit Gastroenterology Marielena Hall CRNP [address] [place] [address] 03/29/2023 Office Visit Cardiology Blair Hannah PA-C [address] [place] [address] 06/02/2023 Nurse Only Ancillary Nurse Neeraj [address] [place] [address] 10/12/2023 Office Visit Sleep Disorders Eulalia Milligan DO [address] [place] [address] 10/25/2023 Cardiac Studies Cardiology Neeraj, [facility] [address] [place] [address] Scheduled Orders Name Type Priority Associated Diagnoses Orde r Schedule APTT Lab Routine Coronary artery disease involving habematolel coronary artery of habematolel heart without angina pectoris Chest pain, unspecified type Dyslipidemia, goal LDL below 70 Atherosclerosis of habematolel coronary artery of habematolel heart without angina pectoris Expected: 11/24/2022, Expires: 11/25/2023 BASIC METABOLIC PANEL Lab Routine Coronary artery disease involving habematolel coronary artery of habematolel heart without angina pectoris Chest pain, unspecified type Dyslipidemia, goal LDL below 70 Atherosclerosis of habematolel coronary artery of habematolel heart without angina pectoris Expected: 11/24/2022, Expires: 11/25/2023 CARDIAC CATH-CARDIOLOGY ONLY Procedures Routine Coronary artery disease involving habematolel coronary artery of habematolel heart without angina pectoris Chest pain, unspecified type Dyslipidemia, goal LDL below 70 Atherosclerosis of habematolel coronary artery of habematolel heart without angina pectoris Ordered: 11/24/2022 CBC Lab Routine Coronary artery disease involving habematolel coronary artery of habematolel heart without angina pectoris Chest pain, unspecified type Dyslipidemia, goal LDL below 70 Atherosclerosis of habematolel coronary artery of habematolel heart without angina pectoris Expected: 11/24/2022, Expires: 11/25/2023 EKG EKG Routine Coronary artery disease involving habematolel coronary artery of habematolel heart without angina pectoris Chest pain, unspecified type Dyslipidemia, goal LDL below 70 Atherosclerosis of habematolel coronary artery of habematolel heart without angina pectoris Ordered: 11/24/2022 PT INR Lab Routine Coronary artery disease involving habematolel coronary artery of habematolel heart without angina pectoris Chest pain, unspecified type Dyslipidemia, goal LDL below 70 Atherosclerosis of habematolel coronary artery of habematolel heart without angina pectoris Expected: 11/24/2022, Expires: 11/25/2023 XR CHEST 2 VIEWS Medical Imaging Routine Coronary artery disease involving habematolel coronary artery of habematolel heart without angina pectoris Chest pain, unspecified type Dyslipidemia, goal LDL below 70 Atherosclerosis of habematolel coronary artery of habematolel heart without angina pectoris Ordered: 11/24/2022 Scheduled Procedures Name Priority Associated Diagnoses Date/Ti nj ESOPHAGOGASTRODUODENOSCOPY ( EGD), FLEXIBLE, TRANSORAL, DIAGNOSTIC Recall [...] this encounter Medical Devices Implanted Type Area Janitor Head Device Identifier Shelf Expiration Date Model / Serial / Lot Sut Steel 6 [id number] - [id number] Implanted:Qty: 6 on 07/10/2008 at OR [facility] [place] N/A: Chest DO NOT USE 08/14/2012 [id number] / / [id number] documented as of this encounter Visit Diagnoses Diagnosis Coronary artery disease involving habematolel coronary artery of habematolel heart without angina pectoris- Primary Chest pain, unspecified type Dyslipidemia, goal LDL below 70 Other and unspecified hyperlipidemia Atherosclerosis of habematolel coronary artery of habematolel heart without angina pectoris documented in this encounter Additional Health Concerns Infection Onset Date Last Indicated Resolved Time C. difficile 11/05/2022 11/05/2022 documented as of this encounter Advance Directives Documents on File Type Date Recorded Patient Engineering Document Control Clerk Expl anation Power of Credit Professional 06/26/2019 POWER OF A TTORNEY Advance Directives [...] the patient have Health Care Power of Credit Professional? No Code Status History Code Status Date [...] patient or by statute hierarchy) Care Teams Volunteer Recruiter Relationship Specialty Start Date End Date Nicola Prado MD [address] [place] [address] [place] [address] PCP - General Family Medicine 06/19/21 documented as of this encounter
--- OUTSIDE RECORDS SUMMARY | 2023-02-03 20:21 | External Medical Summary ---
Author Name Unknown Address Unknown Organization [facility] [address] [place] [id number] Laboratory Report Ordering Provider Test Date Status MARY OLVERA 11/29/2022 09:48:33 Final Observation Date Value Abnormality Reference (Units ) Status BUN 11/29/2022 09:48:33 24 Above high normal 6-20 (mg/dL) Final Creatinine 11/29/2022 09:48:33 1.8 Above high normal 0.6-1.2 (mg/dL) Final Glomerular filtration rate/1.73 sq M.predicted [Volume Rate/Area] in Serum, Plasma or Blood by Creatinine-based formula (CKD-EPI) 11/29/2022 09:48:33 37 Below low normal >=60 (mL/min) Final eGFR is calculated based on the CKD-EPI 2020 equation SODIUM 11/29/2022 09:48:33 137 135-146 (m mol/L) Final Potassium 11/29/2022 09:48:33 4.1 3.5-5.1 (m mol/L) Final Cl 11/29/2022 09:48:33 96 Below low normal 98- 107 (mmol/L) Final CO2 11/29/2022 09:48:33 27 22-32 (mmo l/L) Final Anion gap 11/29/2022 09:48:33 14 7-15 (mmol /L) Final Glucose 11/29/2022 09:48:33 85 70-120 (mg /dL) Final Calcium 11/29/2022 09:48:33 8.9 8.4-10.2 ( mg/dL) Final Performing Location [facility] [place] [address] [place] [address]
--- OUTSIDE RECORDS SUMMARY | 2023-02-03 20:21 | External Medical Summary ---
Author Name Unknown Address Unknown Organization [facility] [address] [place] [id number] Laboratory Report Ordering Provider Test Date Status MARY OLVERA 11/29/2022 09:48:33 Final Warfarin Therapy
INR: 2 .0-3.0 conventional anticoagulation
INR: 2.5- 3.5 high intensity anticoagulation Observation Date Value Abnormality Reference (Units ) Status PT 11/29/2022 09:48:33 12.8 11.6-15.2 (seconds) Final INR 11/29/2022 09:48:33 0.9 0.8-1.2 Final Performing Location [facility] [place] [address] [place] [address]
--- OUTSIDE RECORDS SUMMARY | 2023-02-03 20:21 | External Medical Summary ---
Author Name Unknown Address Unknown Organization [facility] [place] [address] [place] [id number] Laboratory Report Ordering Provider Test Date Status MIKY PARISH 11/29/2022 09:48:33 Final Observation Date Value Abnormality Reference (Units ) Status SYNC LEUKOCYTES IN BLOOD BY AUTOMATED COUNT 11/29/2022 09:48:33 12.00 Above high normal 4.00-10.80 (K/uL) Final Segs 11/29/2022 09:48:33 72.4 40.0-75.0 (%) Final Lymphs % 11/29/2022 09:48:33 13.5 Below low normal 18.0-42.0 (%) Final Monos 11/29/2022 09:48:33 3.4 1.0-11.0 (%) Final Eosinophils 11/29/2022 09:48:33 10.3 Above high normal 0.0-6.0 (%) Final Basos 11/29/2022 09:48:33 0.4 0.0-2.0 (%) Final Absolute Segs 11/29/2022 09:48:33 8.69 Above high normal 1.80-7.70 (K/uL) Final Lymphs, absolute 11/29/2022 09:48:33 1.62 1.00-4.80 (K/ul) Final Monos, Abs 11/29/2022 09:48:33 0.41 0.00-1.10 (K/uL) Final Eos, Abs 11/29/2022 09:48:33 1.23 Above high normal 0.00-0.70 (K/uL) Final Basos, Abs 11/29/2022 09:48:33 0.05 0.00-0.20 (K/uL) Final Performing Location [facility] [place] [address] [place] [address]
--- OUTSIDE RECORDS SUMMARY | 2023-02-03 20:21 | External Medical Summary | Summary of Care ---
Author Name Unknown Organization [facility] Address [address] [place] [address] Phone [phone] Care Team Providers Care Avionics Mechanic Name Role Phone Nicola Prado MD Primary Care Provide r Reason for Visit * Reason Comments Outpatient Testing Encounter Details Date Type Department Care Team Description 11/30/2022 Laboratory Laboratory, [facility] [address] [facility] [place] [address] [facility] [address] [facility] [place] [address] Arrived Allergies Active Allergy Reactions Severity Noted Date Comments Hydromorphone High 09/20/2021 Other reaction(s): Nausea Other reaction(s): Nausea 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/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 Other reaction(s): AMS Other reaction(s): AMS Prasugrel 04/02/2016 bleeding Prednisone High 09/20/2021 Other reaction(s): INCREASE BLOOD SUGAR Other reaction(s): INCREASE BLOOD SUGAR documented as of this encounter (statuses as of 11/30/2022) Medications Medication Sig Dispensed Refills Start Date End Date Status ASPIRIN 81 MG PO CHEWIndications:Unst able angina (HCC),Chronic coronary artery disease,Difficult intubation 1 Tab Oral Daily 1 0 07/21/2008 Active oxygen IN GAS Use 2 L/min(Oxygen) as directed daily. 2.5 LPMBled through bipap And 2 LPM with exertion DME: AHKishor 1 Each 0 03/24/2020 Active Additional Information [...] hemoglobin A1c goal of less than 8.0% ([facility]) Test blood sugar up to five times daily; dx E11.9 450 Each 3 12/17/2021 Active OneTouch Ultra In Vitro Strip (Glucose Blood)Indications:Ty pe 2 diabetes mellitus with hemoglobin A1c goal of less than 8.0% ([facility]) 3-4 times a day 450 Strip 3 [...] Tablet 1 05/05/2022 Active Easy Touch Pen [place] 31G X 8 MM (Insulin Pen Needle)Indications:T ype 2 diabetes mellitus with hemoglobin A1c goal of less than 8.0% ([facility]),Type 2 diabetes mellitus with stage 4 chronic kidney disease, unspecified whether halfway insulin use ([facility]) Use up to six times daily with insulin. DXe11.9 600 Each 3 05/22/2022 Active Albuterol Sulfate HFA 108 (90 Base) MCG/ACT Inhalation Aerosol SolutionIndications: COPD exacerbation ([facility]),Chronic cough Inhale by mouth 2 Puffs every 4 hours as needed for Cough or Shortness of Breath. Reports doesn't help 18 g 2 05/27/2022 Active Victoza 18 MG/3ML Subcutaneous Solution Pen-injector (Liraglutide)Indicat ions:Type 2 diabetes mellitus with hemoglobin A1c goal of less than 8.0% ([facility]),Type 2 diabetes mellitus with stage 4 chronic kidney disease, with long-term current use of insulin ([facility]) Inject 1.8 mg under the skin daily. [...] hemoglobin A1c goal of less than 8.0% ([facility]) Inject 100 Units under the skin daily. [...] 7 days 28 Capsule 0 11/09/2022 Active Additional Information Patient not taking.Reported on [...] as of this encounter (statuses as of 11/30/2022) Active Problems Problem Noted Date Atherosclerosis of coronary artery bypass graft of [place] heart with angina pectoris 10/13/2022 Encounter for [...] urinary tr act symptoms 07/13/2001 Atherosclerosis of [place] co ronary artery of [place] heart without angina pectoris Morbid obesity with BMI of 40.0-44.9, ad ult documented as of this encounter (statuses as of 11/30/2022) Resolved Problems Problem Noted Date Resolved Date [...] use aero chamber. Test performed by Dori [employer] OFFICER CPFT Body mass index (BMI) of 45.0 [...] TIA (transient ischemic attack) 02/04/2016 11/23/2017 Overview: [facility] Anemia of chronic renal failure [...] MANAGEMENT 07/22/2008 0 Overview: Kianna Lyn RN [phone] Examination following surgery 07/11/2008 Difficult intubation 07/10/2008 02/19/2020 Overview: Patient seen and examined in OR#1.Possible difficult intubation.TM distance about 5 cms.MP 3-4. Will plan FOB electively Due to current situation. EXAMINATION OF PARTICIPANT IN CLINICAL TRIAL-gen omics 07/04/2008 05/30/2009 Overview: Renamed Per Clinical Trials Billing Project. Study Titile: Genomic Markers for Patients with Cardiovascular Disease Project #[id number] PI: Miriam Roque MD Please call [phone] with study related questions Chronic coronary artery [...] at goal 07/04/2008 9 GENOMICS CARDIO RESEARCH OTHER*[id number] 200803/23/2016 Overview: Renamed Per Clinical Trials Billing Project. Study Titile: Genomic Markers for Patients with Cardiovascular Disease Project #[id number] PI: Miriam Roque MD Please call [phone] with study related questions Kidney disease, chronic, [...] as of this encounter (statuses as of 11/30/2022) Immunizations Name Administration Dates Next Due COVID-19 mRNA, LNP-s, No Pre serve, 2-Dose Series ([email or web address]) 12/09/2020,05/09/2020,04/11/2020 COVID-19, LNP-s, No Preserve , Juan [...] Care Team Description 12/02/2022 Hospital Encounter Cardiac Research Group Director Carrie Nation MD [address], [place] [id number] 12/02/2022 Surgery Cardiac Research Group Director Carrie Nation MD [address] [place] [address] CORONARY ANGIOGRAPHY W/LEFT HEART CATH 12/02/2022 Office Visit Cardiology [place], [facility] [address] [place] [address] 12/09/[address] [place] [address] 12/13/2022 Office Visit Cardiology Nevaeh Linda PA-C [address] [place] [address] [place] [phone] 12/20/2022 Office Visit Dermatology Meron Aragon PA-C [address] [place] [address] [place] [address] 12/27/2022 Office Visit Family Medicine Nicola Prado MD [address] [facility] [place] [address] 01/28/2023 Office Visit Nephrology Verito Jovel PA-C [address] [place] [address] 03/04/2023 Office Visit Gastroenterology Marielena Hall CRNP [address] [place] [address] 03/29/2023 Office Visit Cardiology Blair Hannah PA-C [address] [place] [address] 04/05/2023 Office Visit Urology Denny Armando MD [address] [place] [address] [place] [address] 06/02/2023 Nurse Only Ancillary Nurse Neeraj Annual [address] [place] [address] 10/12/2023 Office Visit Sleep Disorders Eulalia Milligan DO [address] [place] [address] 10/25/2023 Cardiac Studies Cardiology [facility] [address] [place] [address] Scheduled Procedures Name Priority Associated Diagnoses Date/Ti [...] this encounter Medical Devices Implanted Type Area Elevator Tender Device Identifier Shelf Expiration Date Model / Serial / Lot Lei Agrawal 6 [id number] - [id number] Implanted:Qty: 6 on 07/10/2008 at [place] [facility] [place] N/A: Chest DO NOT USE 08/14/2012 [id number] / / [id number] documented as of this encounter Additional Health Concerns Infection Onset Date Last Indicated Resolved Time C. difficile 11/05/2022 11/05/2022 documented as of this encounter Advance Directives Documents on File Type Date Recorded Patient Range Scientist Expl anation Power of Slip Cover Estimator 06/26/2019 POWER OF A TTORNEY Advance Directives [...] the patient have Health Care Power of Slip Cover Estimator? No Code Status History Code Status Date [...] patient or by statute hierarchy) Care Teams Avionics Mechanic Relationship Specialty Start Date End Date Nicola Prado MD [address] [place] [address] [place] [address] PCP - General Family Medicine 06/19/21 documented as of this encounter
--- OUTSIDE RECORDS SUMMARY | 2023-02-03 20:21 | External Medical Summary | Summary of Care ---
Author Name Unknown Organization [facility] Address [address] [place] [address] Phone [phone] Care Team Providers Care Novelty Twister Operator Name Role Phone Daisha Menard MD Primary Care Provide r Reason for Visit * Reason Comments Follow Up Encounter Details Date Type Department Care Team Description 11/30/2022 Office Visit Urology, [facility] [address] [facility] [place] [address] Denny Armando MD [address] [facility] [address] [place] [address] Prostate cancer (HCC)*; Hematuria, gross; Lower urinary tract symptoms; Rising PSA following treatment for malignant neoplasm of prostate Allergies Active Allergy Reactions Severity Noted Date [...] than 8.0% ([facility]) 12 units with breakfast and [...] Tablet 1 05/05/2022 Active Easy Touch Pen Gillett 31G X 8 MM (Insulin Pen Needle)Indications:T ype 2 diabetes mellitus with hemoglobin A1c goal of less than 8.0% ([facility]),Type 2 diabetes mellitus with stage 4 chronic kidney disease, unspecified whether exterminator helper insulin use ([facility]) Use up to six times daily with insulin. DXe11.9 600 Each 3 05/22/2022 Active Albuterol Sulfate HFA 108 (90 Base) MCG/ACT Inhalation Aerosol SolutionIndications: COPD exacerbation ([facility]),Chronic cough Inhale by mouth 2 [...] Atherosclerosis of coronary artery bypass graft of [place] heart with angina pectoris 10/13/2022 Encounter for [...] heart failure 02/21/19 20 Pulmonary hypertension 11/04/2016 Stubbs's esophagus with dysplasia [...] urinary tr act symptoms 07/13/2001 Atherosclerosis of [place] co ronary artery of [place] heart without angina pectoris Morbid obesity with [...] TIA (transient ischemic attack) 02/04/2016 11/23/2017 Overview: [facility] Anemia of chronic renal failure [...] MANAGEMENT 07/22/2008 0 Overview: Kianna Lyn RN [phone] Examination following surgery 07/11/2008 Difficult intubation 07/10/2008 02/19/2020 Overview: Patient seen and examined in OR#1.Possible difficult intubation.TM distance about 5 cms.MP 3-4. Will plan FOB electively Due to current situation. EXAMINATION OF PARTICIPANT IN CLINICAL TRIAL-gen omics 07/04/2008 05/30/2009 Overview: Renamed Per Clinical Trials Billing Project. Study Titile: Genomic Markers for Patients with Cardiovascular Disease Project #[id number] PI: Fabienne Martinez MD Please call [phone] with study related questions Chronic coronary artery [...] at goal 07/04/2008 9 GENOMICS CARDIO RESEARCH OTHER*[id number] 200803/23/2016 Overview: Renamed Per Clinical Trials Billing Project. Study Titile: Genomic Markers for Patients with Cardiovascular Disease Project #[id number] PI: Fabienne Martinez MD Please call [phone] with study related questions Kidney disease, chronic, [...] mRNA, LNP-s, No Pre serve, 2-Dose Series (Newsgrape) 12/09/2020,05/09/2020,04/11/2020 COVID-19, LNP-s, No Preserve , Juan [...] as of this encounter Progress Notes * Denny Armando MD - 11/30/2022 12:13 PM EDT [id number] PCP: DAISHA MENARD [address] [place] [address] [place] [address] Maurisio Beltran is a 82 year old male, who presents for follow-up of his history of prostate cancer. Patient's past notes are reviewed. Patient was provided with a 4 month Eligard in July of 2022 with modest improvement of his PSA. No new PSA since. He denies hot flashes. He notes he is pending cardiac catheterization, has 6 stents and CABG. Patient denies deterioration in his voiding. He remains on tamsulosin. Hematuria: Cystoscopy July 2022: Inflammation and abnormal tissue growth at the level of the prostate. CT scan Apr 2022: IMPRESSION: No definite evidence of acute abdominal or pelvic pathology. Remainder of findings as described. Prostate Cancer: Treated with brachyRx in 2003. Increasing PSA noted with increasing iliac lymphadenopathy on CT scan Apr 2021, stable Sep 2021. Started on tamsulosin 0.4 mg for obstructive voiding symptoms. Lupron started September 2021, 3 month injection provided October 09 2021 for intermittent androgen deprivation. 4 month Eligard Jul 2022. PSA Results: Lab Results Component Value Date/Time PSA - [facility] 1.17 09/21/2022 01:06 PM PSA - [facility] 8.83 (H) 07/26/2022 12:48 PM PSA - [facility] 9.00 (H) 07/22/2022 09:18 AM PSA - [facility] 2.61 04/24/2019 07:55 AM PSA - [facility] 1.71 08/07/2018 02:40 PM PSA - [facility] 0.49 12/20/2014 02:38 PM PSA SCREENING 3.46 (H) 07/23/2002 08:44 AM Current Outpatient Medications Medication Sig Dispense Refill [...] 1 Capsule by mouth in the morning. Diclofenac Sodium 1 % External Gel (Voltaren) [...] mouth in the morning. 90 Capsule 3 Albuterol Sulfate HFA 108 (90 Base) MCG/ACT Inhalation Aerosol Solution Inhale by mouth 2 Puffs every 4 hours as needed for Cough or Shortness of Breath. Reports doesn't help 18 g 2 Victoza 18 MG/3ML Subcutaneous Solution Pen-injector (Liraglutide) [...] skin daily. 90 mL 3 Octreotide Acetate 10 MG Intramuscular Kit (SandoSTATIN LAR [place]) Inject 10 mg into a large muscleevery month. 1 Kit 12 Octreotide Acetate 50 MCG/ML Injection Solution (Sandostatin) [...] skin once a week. 4 mL 1 oxygen IN GAS Use 2 L/min(Oxygen) as directed daily. 2.5 LPMBled through bipap And 2 LPM with exertion DME: [facility] (Patient taking differently: Use 2 L/min(Oxygen) as directed in the morning. 2.5 LPMBled through bipap And 2 LPM with exertion. (Patient is using 2 LPM with CPAP, and 3 LPM with exertion/activity) DME: [facility].) 1 Each 0 CPAP every night at bedtime . 2 Liters OneTouch UltraSoft Lancets Test blood sugar up to five times daily; dx E11.9 450 Each 3 OneTouch Ultra In Vitro Strip (Glucose Blood) 3-4 times a day 450 Strip 3 Nitroglycerin 0.4 MG Sublingual Tablet Sublingual (Nitrostat) 1 every 5 minutes as needed with chest pain up to 3 doses in 15 minutes 25 Tablet 1 Easy Touch Pen Gillett 31G X 8 MM (Insulin Pen Needle) Use up to six times daily with insulin. DXe11.9 600 Each 3 BD TB Syringe 27G X 1/2" 1 ML (Tuberculin Syringe) Use twice daily to inject octreotide 180 Each 1 Vancomycin HCl 125 MG Oral Capsule (Vancocin) Take 1 Capsule by mouth every 6 hours. For 7 days (Patient not taking: Reported on 11/30/2022) 28 Capsule 0 Current Facility-Administered Medications Medication Dose Route Frequency Provider Last Rate Last Admin Albuterol Sulfate (Proventil) (2.5 MG/3ML) 0.083% inhalation solution 2.5 mg 2.5 mg Nebulizer PRN Al Mccrary PA-C Albuterol Sulfate (Proventil) (5 MG/ML) 0.5% *conc* inhalation solution 2.5 mg 2.5 mg Nebulizer PRN Al Mccrary PA-C Review of patient's allergies indicates: Allergen Reactions Hydromorphone Other reaction(s): Nausea Other reaction(s): Nausea Methylprednisolone Steroid psychosis Other reaction(s): AMS Other reaction(s): AMS Prednisone Other reaction(s): INCREASE BLOOD SUGAR Other reaction(s): INCREASE BLOOD SUGAR Prasugrel bleeding Social History: Social History Tobacco Use Smoking status: Former Packs/day: 2.00 Years: 10.00 Pack years: 20.00 Types: Cigarettes Quit date: 01/27/1998 Years since quittin.8 Smokeless tobacco: Never Substance Use Topics Alcohol use: No Vaping/E-Cigarette Use Vaping/E-Cigarette Use Never User Vaping/E-Cigarette Substances Vaping/E-Cigarette Devices Family History Problem Relation Age of Onset Asthma Brother Cancer Grandfather (Maternal) stomach Lung Disorder Father Cancer Aunt (Unspecified) Cancer Uncle (Unspecified) Heart Disorder Brother 46 [place] age 46 Heart Disorder Mother mi age 82 Diabetes Son 35 IDDM Mental Disorder Mother Received electric shcok in the [place] Blood Disorder Son "Thick Blood" Arthritis Son Past Surgical History: Procedure Laterality Date BRACHYTHERAPY SEED,IRIDIUM 192 01/2004 BYPASS GRAFT ANGIOGRAPHY W/LEFT HEART CATH 09/05/2013 BYPASS GRAFT ANGIOGRAPHY W/LEFT HEART CATH performed by Aleisha Abraham MD at [facility] BYPASS GRAFT ANGIOGRAPHY W/RIGHT+LEFT CATH Right 08/25/2016 BYPASS GRAFT ANGIOGRAPHY W/RIGHT+LEFT CATH performed by Eliseo José MD at [facility] CABG, ARTERIAL, SINGLE 07/10/2008 CORONARY ARTERY BYPASS GRAFT USING ARTERY 1 GRAFT performed by BUDDY VILCHIS at [place] [facility] CABG, ARTERY-VEIN, TWO 07/10/2008 CORONARY ARTERY BYPASS GRAFT ARTERIAL AND VENOUS 2 GRAFTS performed by BUDDY VILCHIS at [place] [facility] CARDIAC CATH-CARDIOLOGY ONLY 09/05/2013 60% RCA, drug [...] 06/25/2015 adenomatous & hyperplastic polyps, repeat 3 yrs/[facility] COLONOSCOPY, DIAGNOSTIC (RECTUM) 04/20/2018 hyperplastic polyp, repeat 5 yrs/[facility] COLONOSCOPY, DIAGNOSTIC (RECTUM) 10/31/2020 adenomatous polyp, diverticulosis, repeat 3 yrs / [facility] COLONOSCOPY, REMOVE LESION, W/SNARE 06/25/2015 4 mm polyp ascending, 2 polyps in rectum, diverticulosis COMBINED RT & LEFT HEART CATHETERS 07/04/2008 RIGHT AND RETROGRADE LEFT HEART CATH performed by CANDELARIO VINES at [facility] COMBINED RT & LEFT HEART CATHETERS 01/01/2010 RIGHT AND RETROGRADE LEFT HEART CATH performed by KAREL OBANDO at [facility] [place] HEAD/BRAIN WO CONTRAST N/A 02/04/2016 patchy [...] by Jose Eduardo Valadez MD at ENDOSCOPY [facility] EGD, FLEXIBLE, DIAGNOSTIC 06/25/2015 esophagitis/[facility] EGD, FLEXIBLE, DIAGNOSTIC N/A 11/14/2020 two large inlet patches/patchey antral gastritis/biopsies show Barretts/EGD EGD, FLEXIBLE, DIAGNOSTIC 05/22/2021 Barretts, repeat 3 yrs / [facility] EGD, FLEXIBLE, DIAGNOSTIC 06/26/2021 normal / INPT [facility] EGD, FLEXIBLE, DIAGNOSTIC 09/09/2021 mildly inflammed mucosa on bx / [facility] EGD, FLEXIBLE, DIAGNOSTIC 10/30/2020 single bleeding angiodysplastic lesion in the jejunum / INPT [facility] EGD, FLEXIBLE, W/BIOPSY 11/14/2006 mild chronic inflammation EGD, FLEXIBLE, W/BIOPSY 04/25/2008 stomach gastritis, stubbs's esophagus, recommend f/u in 2 years EGD, FLEXIBLE, W/BIOPSY 06/25/2015 stomach and duodenum normal ENDO,VIDEO ASSIST HARVEST DILLON 07/10/2008 ENDOSCOPY VIDEO ASSISTED HARVEST VEIN performed by BUDDY VILCHIS at [place] [facility] FLUORO SWALLOWING FUNCTION W VIDEO CINE 11/14/2017 moderate esophageal dysmotility, no mass or stricture FLUORO UPPER GI W AIR WO KUB 06/03/2014 normal HC VENOUS DUPLEX COMPLETE BILATERAL LOWER EXTREMITY Bilateral 11/14/2017 no DVT INSERT HEART ELECTRODE, DUAL CHAMBR 06/11/2020 [facility] INSERT IA PERCUT DEVICE 07/10/2008 INSERT INTRA AORTIC BALLOON ASSIST DEVICE PERCUTANEOUS performed by FABIENNE MARTINEZ at [facility] LEFT HEART CATHETERIZATION 07/04/2008 80% mid left [...] performed by Annelise Diaz MD at OR [facility] SMALL BOWEL ENDOSCOPY W/BX 07/03/2010 await path [...] 11/07/2020 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 Past Medical History: Diagnosis Date (HFpEF) heart failure with preserved ejection fraction (HCC) Acute blood loss anemia 10/29/2020 [facility] transfused Acute exacerbation of chronic obstructive pulmonary disease (COPD) (HCC) 05/11/2018 [facility] Altered mental status 03/31/2017 likely the [...] stage IV (HCC) GFR 26.5 COPD, mild ([facility]) 08/21/2010 COPD, moderate ([facility]) 10/04/2014 PFT Coronary atherosclerosis of [place] coronary artery 07/04/2008 Admitted [facility] COVID-19 02/24/2021 Dermatophytosis of scalp or bello DM type 2 causing CKD stage 4 ([facility]) DM type 2, goal A1c [...] disease, chronic, stage III (GFR 30-59 ml/min) ([facility]) 06/2008 Malignant neoplasm of prostate ([facility]) Prostate Mixed dyslipidemia Morbid obesity with BMI of 45.0-49.9, adult ([facility]) Other psoriasis S/P primary angioplasty with coronary stent 09/05/2013 drug eluting stents to 60% RCA, other grafts open except SVG to PDA is occluded Sleep apnea CPAP Sleep apnea, obstructive Symptomatic anemia 10/29/2020 Admitted [facility] and transfused TIA (transient ischemic attack) 02/04/2016 [facility] Tubular adenoma 10/31/2020 Patient Active Problem List Diagnosis Code BPH without obstruction/lower urinary tract symptoms N40.0 Psoriasis L40.9 Generalized osteoarthritis M15.9 Iron deficiency anemia due to chronic blood loss D50.0 Atherosclerosis of [place] coronary artery of [place] heart without angina pectoris I25.10 Aortocoronary bypass status Z95.1 Type 2 diabetes mellitus with hemoglobin A1c goal of less than 8.0% ([facility]) E11.9 Dyslipidemia E78.5 Vitamin D deficiency E55.9 REENA-inhibitor cough R05.8, T46.4X5A Obstructive sleep apnea of adult G47.33 Psoriatic arthropathy ([facility]) L40.50 S/P primary angioplasty with coronary stent Z95.5 Stubbs's esophagus with dysplasia K22.719 Pulmonary hypertension ([facility]) I27.20 Chronic diastolic heart failure ([facility]) I50.32 Gout M10.9 COPD, group D, by GOLD 2017 classification ([facility]) J44.9 Chronic respiratory failure with hypoxia ([facility]) J96.11 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 Morbid obesity with BMI of 40.0-44.9, adult ([facility]) E66.01, Z68.41 Vitamin B12 deficiency [...] of major depressive disorder without prior episode ([facility]) F32.0 Type 2 diabetes mellitus with stage 4 chronic kidney disease, with long-term current use of insulin([facility]) E11.22, N18.4, Z79.4 CHB (complete heart block) ([facility]) I44.2 Prostate cancer ([facility]) C61 Stage 3b chronic kidney disease ([facility]) N18.32 Plaque psoriasis L40.0 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 Constitutional: General: He is not in acute distress. Appearance: Normal appearance. He is obese. He is not ill-appearing or toxic-appearing. HENT: Head: Normocephalic and atraumatic. Right Ear: External ear normal. Left Ear: External ear normal. Nose: Nose normal. Mouth/Throat: Mouth: Mucous membranes are moist. Cardiovascular: Pulses: Normal pulses. Pulmonary: Effort: Pulmonary effort is normal. Abdominal: Palpations: Abdomen is soft. Tenderness: There is no abdominal tenderness. Musculoskeletal: Cervical back: Normal range of motion and neck supple. Lymphadenopathy: Cervical: No cervical adenopathy. Skin: Coloration: Skin is not cyanotic or pale. Neurological: Mental Status: He is alert and oriented to person, place, and time. Psychiatric: Attention and Perception: Attention normal. Mood and Affect: Mood and affect normal. Impression/Plan: 82 yo male with CAP, intermittent ADT. Will try to hold on Eligard if possible, especially in the context of the patient's ongoing cardiacdisease. Will add a PSA to the patient's recent labs, plan on repeat value in 4 months time. Will provide androgen deprivation as necessary for rising PSA are recurrent urinary symptoms. Patient willcontact us sooner with any other urinary difficulties. Above content is personally reviewed. Patient vocalizes good understanding of the treatment plan. Denny Armando MD 12:13 PM 11/30/2022 documented in this encounter Nursing Notes * Meggan Bass LPN - 11/30/2022 11:58 AM EDT 4 month ret. Patient presents alone. Taking tamsulosin. documented in this encounter Plan of Treatment Upcoming Encounters Date Type Specialty Care Team Description 12/02/2022 Hospital Encounter Cardiac Inbound Customer Service Representative Carrie Nation MD [address] [place] [address] 12/02/2022 Surgery Cardiac Inbound Customer Service Representative aCrrie Nation MD [address] [facility] [place] [address] CORONARY ANGIOGRAPHY W/LEFT HEART CATH 12/02/2022 Office Visit Cardiology Marilou Cardiac [facility] [address] [facility] [place] [address] 12/09/[address] [place] [address] 12/13/2022 Office Visit Cardiology Nevaeh Linda PA-C [address] [place] [address] 12/20/2022 Office Visit Dermatology Meron Aragon PA-C [address] [place] [address] [place] [address] 12/27/2022 Office Visit Family Medicine Daisha Menard MD [address] [place] [address] [place] [address] 01/28/2023 [facility] [address] [facility] [address] 03/04/2023 Office Visit Gastroenterology Marielena Hall CRNP [address] [place] [address] 03/29/2023 Office Visit Cardiology Blair Hannah PA-C [address] [place] [address] 04/05/2023 Office Visit Urology Denny Armando MD [address] [place] [address] [place] [address] 06/02/2023 Nurse Only Ancillary Neeraj Nurse Annual [facility] [address] [place] [address] [place] [address] 10/12/2023 Office Visit Sleep Disorders Eulalia Milligan DO [address] [place] [address] 10/25/2023 Cardiac Studies Cardiology Keith [facility] [address] [place] [address] Pending Results Name Type Priority Associated Diagnoses Date /Time PSA Lab Routine Prostate cancer (HCC) 11/29/2022 9:48 AM EDT Scheduled Orders Name Type Priority Associated Diagnoses Orde r Schedule PSA Lab Routine Prostate cancer (HCC) Expected: 11/30/2022, Expires: 12/01/2023 PSA Lab Routine Prostate cancer (HCC) Lower urinary tract symptoms Rising PSA following treatment for malignant neoplasm of prostate Expected: 03/21/2023, Expires: 12/01/2023 Scheduled Procedures Name Priority Associated Diagnoses Date/Ti me CORONARY ANGIOGRAPHY W/LEFT HEART CATH CAD (coronary artery disease) Chest pain, unspecified type 12/02/2022 10:00 AM EDT ESOPHAGOGASTRODUODENOSCOPY ( EGD), FLEXIBLE, TRANSORAL, DIAGNOSTIC Recall Stubbs esophagus COLONOSCOPY FLEXIBLE PROXIMA L DIAGNOSTIC Recall [...] this encounter Medical Devices Implanted Type Area Cotton Washer Device Identifier Shelf Expiration Date Model / Serial / Lot Sut Steel 6 [id number] - [id number] Implanted:Qty: 6 on 07/10/2008 at [place] [facility] N/A: Chest DO NOT USE 08/14/2012 [id number] / / [id number] documented as of this encounter Visit Diagnoses Diagnosis Prostate cancer (HCC)- Primary Malignant neoplasm of prostate Hematuria, gross Gross hematuria Lower urinary tract symptoms Other symptoms involving urinary system Rising PSA following treatment for malignant neoplasm of prostate CAD (coronary artery disease) Coronary atherosclerosis of unspecified type of vessel, [place] or graft Chest pain, unspecified type documented in this encounter Additional Health Concerns Infection Onset Date Last Indicated Resolved Time C. difficile 11/05/2022 11/05/2022 documented as of this encounter Advance Directives Documents on File Type Date Recorded Patient Residential Sales Associate Expl anation Power of Fire Department Marine Engineer 06/26/2019 POWER OF A TTORNEY Advance [...] the patient have Health Care Power of Fire Department Marine Engineer? No Code Status History Code Status [...] patient or by statute hierarchy) Care Teams Novelty Twister Operator Relationship Specialty Start Date End Date Daisha Menard MD [address] [place] [address] [place] [address] PCP - General Family Medicine 06/19/21 documented as of this encounter
--- OUTSIDE RECORDS SUMMARY | 2023-02-03 20:21 | External Medical Summary | Summary of Care ---
Author Name Unknown Organization [facility] Address [address] [place] [address] Phone [phone] Care Team Providers Care Energy Economist Name Role Phone Nicola Prado MD Primary Care Provide r Reason for Visit * Reason Onset Date Comments Test Results 11/29/2022 Encounter Details Date Type Department Care Team Description 11/29/2022 Telephone Cardiology, [facility] [address] [facility] [place] [place] [address] Nevaeh Linda PA-C [address] [place] [address] [place] [address] Test Results Allergies Active Allergy Reactions Severity [...] less than 8.0% ([facility]) 12 units with breakfast [...] Tablet 1 05/05/2022 Active Easy Touch Pen [place] 31G X 8 MM (Insulin Pen Needle)Indications:T ype 2 diabetes mellitus with hemoglobin A1c goal of less than 8.0% ([facility]),Type 2 diabetes mellitus with stage 4 chronic kidney disease, unspecified whether emt intermediate insulin use (HCC) Use up to six times daily with insulin. DXe11.9 600 Each 3 05/22/2022 Active Albuterol Sulfate HFA 108 (90 Base) MCG/ACT Inhalation Aerosol SolutionIndications: COPD exacerbation ([facility]),Chronic cough Inhale by mouth 2 [...] urinary tr act symptoms 07/13/2001 Atherosclerosis of [place] ronary artery of [place] heart without angina pectoris Morbid obesity with [...] use aero chamber. Test performed by Dori MANAGER OF CORPORATE COMMUNICATIONS CPFT Body mass index (BMI) of 45.0 [...] (transient ischemic attack) 02/04/2016 11/23/2017 Overview: [facility] Anemia of chronic renal failure [...] 07/22/2008 0 Overview: Kianna Lyn RN [phone] Examination following surgery 07/11/2008 Difficult intubation 07/10/2008 02/19/2020 Overview: Patient seen and examined in OR#1.Possible difficult intubation.TM distance about 5 cms.MP 3-4. Will plan FOB electively Due to current situation. EXAMINATION OF PARTICIPANT IN CLINICAL TRIAL-gen omics 07/04/2008 05/30/2009 Overview: Renamed Per Clinical Trials Billing Project. Study Titile: Genomic Markers for Patients with Cardiovascular Disease Project #[id number] PI: Miriam Roque MD Please call [phone] with study related questions Chronic coronary artery [...] at goal 07/04/2008 9 GENOMICS CARDIO RESEARCH OTHER*[id number] 200803/23/2016 Overview: Renamed Per Clinical Trials Billing Project. Study Titile: Genomic Markers for Patients with Cardiovascular Disease Project #[id number] PI: Miriam Roque MD Please call [phone] with study related questions Kidney disease, chronic, [...] mRNA, LNP-s, No Pre serve, 2-Dose Series ([employer]) 12/09/2020,05/09/2020,04/11/2020 COVID-19, LNP-s, No Preserve , [...] encounter Miscellaneous Notes * Telephone Encounter - Zulma Obregon LPN - 11/29/2022 3:31 PM EDT Mychart message sent * Telephone Encounter - Zulma Obregon LPN - 11/29/2022 3:00 PM EDT ----- Message from Nevaeh Linda PA-C sent at 11/29/2022 12:28 PM EDT ----- Labs reviewed, kidney function stable, recommended to stay well hydrated, electrolytes, PT/INR normal. * Telephone Encounter - Zulma Obregon LPN - 11/29/2022 3:00 PM EDT ----- Message from Nevaeh Linda PA-C sent at 11/29/2022 12:29 PM EDT ----- Preop chest x-ray normal. documented in this encounter Plan of Treatment Upcoming Encounters Date Type Specialty Care Team Description 11/30/2022 Office Visit Urology Denny Armando MD [address] [facility] [place] [address] [place] [address] 12/02/2022 Hospital Encounter Cardiac Hide Spreader Carrie Nation MD [address] [place] [address] 12/02/2022 Surgery Cardiac Hide Spreader Carrie Nation MD [address] [place] [address] CORONARY ANGIOGRAPHY W/LEFT HEART CATH 12/02/2022 Office Visit Cardiology [place], Cardiac Recovery [place] [address] [place] [address] 12/09/[address] [place] [address] 12/13/2022 Office Visit Cardiology Nevaeh Linda PA-C [address] [facility] [place] [address] 12/15/2022 Office Visit Family Medicine Nicola Prado MD [address] [place] [address] [place] [address] 12/20/2022 Office Visit Dermatology Meron Aragon PA-C [address] [place] [address] [place] [address] 01/28/2023 Office [facility]ph[facility] [address] 03/04/2023 Office Visit Gastroenterology Marielena Hall CRNP [address] [place] [address] 03/29/2023 Office Visit Cardiology Blair Hannah PA-C [address] [place] [address] 06/02/2023 Nurse Only Ancillary Nurse Neeraj Annual [address] [place] [address] 10/12/2023 Office Visit Sleep Disorders Eulalia Milligan DO [address] [place] [address] 10/25/2023 Cardiac Studies Cardiology [facility] [address] [place] [address] Scheduled Procedures Name Priority Associated Diagnoses Date/Ti [...] 05/09/2020, Additional history exists HbA1c 04/08/2023 10/06/2022, 03/10/2022, 10/22/2021, Additional history exists Albumin/Creatinine Ratio 04/23/2023 [...] this encounter Medical Devices Implanted Type Area Caster Operator Device Identifier Shelf Expiration Date Model / Serial / Lot Lei Agrawal 6 [id number] - [id number] Implanted:Qty: 6 on 07/10/2008 at OR [facility] [place] [facility] N/A: Chest DO NOT USE 08/14/2012 [id number] / / [id number] documented as of this encounter Additional Health Concerns Infection Onset Date Last Indicated Resolved Time C. difficile 11/05/2022 11/05/2022 documented as of this encounter Advance Directives Documents on File Type Date Recorded Patient Hand Wrapper Operator Expl anation Power of International Accounting Manager 06/26/2019 POWER OF A TTORNEY Advance Directives [...] the patient have Health Care Power of International Accounting Manager? No Code Status History Code Status Date [...] patient or by statute hierarchy) Care Teams Energy Economist Relationship Specialty Start Date End Date Nicola Prado MD [address] [place] [address] [place] [address] PCP - General Family Medicine 06/19/21 documented as of this encounter
--- OUTSIDE RECORDS SUMMARY | 2023-02-03 20:22 | External Medical Summary | Summary of Care ---
Author Name Unknown Organization [facility] Address [address] [place] [address] Phone [phone] Care Team Providers Care Medical Specialist Name Role Phone Nicola Prado MD Primary Care Provide r Reason for Visit * Reason Onset Date Comments Fax 11/17/2022 Encounter Details Date Type Department Care Team Description 11/17/2022 Telephone Family Medicine [address] [phone] Nicola Prado MD [address] [place] [address] [place] [address] Fax Allergies Active Allergy Reactions Severity Noted Date Comments Hydromorphone High 09/20/2021 Other reaction(s): Nausea Other reaction(s): Nausea 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/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 Other reaction(s): AMS Other reaction(s): AMS Prasugrel 04/02/2016 bleeding Prednisone High 09/20/2021 Other reaction(s): INCREASE BLOOD SUGAR Other reaction(s): INCREASE BLOOD SUGAR documented as of this encounter (statuses as of 11/18/2022) Medications Medication Sig Dispensed Refills Start Date [...] hemoglobin A1c goal of less than 8.0% ([facility]) Test blood sugar up to five times daily; dx E11.9 450 Each 3 12/17/2021 Active OneTouch Ultra In Vitro Strip (Glucose Blood)Indications:Ty pe 2 diabetes mellitus with hemoglobin A1c goal of less than 8.0% ([facility]) 3-4 times a day 450 Strip [...] Tablet 1 05/05/2022 Active Easy Touch Pen [place] 31G X 8 MM (Insulin Pen Needle)Indications:T ype 2 diabetes mellitus with hemoglobin A1c goal of less than 8.0% (HCC),Type 2 diabetes mellitus with stage 4 chronic kidney disease, unspecified whether fdc insulin use ([facility]) Use up to six times daily with insulin. DXe11.9 600 Each 3 05/22/2022 Active Albuterol Sulfate HFA 108 (90 Base) MCG/ACT Inhalation Aerosol SolutionIndications: COPD exacerbation ([facility]),Chronic cough Inhale by mouth 2 Puffs every 4 hours as needed for Cough or Shortness of Breath. Reports doesn't help 18 g 2 05/27/2022 Active Victoza 18 MG/3ML Subcutaneous Solution Pen-injector (Liraglutide)Indicat ions:Type 2 diabetes mellitus with hemoglobin A1c goal of less than 8.0% ([facility]),Type 2 diabetes mellitus with stage 4 chronic kidney disease, with long-term current use of insulin ([facility]) Inject 1.8 mg under the skin daily. 27 mL 3 07/23/2022 Active Furosemide 80 MG Oral Tablet (Lasix) Take 1 Tablet by mouth in the morning. 90 Tablet 1 08/05/2022 Active BD TB Syringe 27G X 1/2" 1 ML (Tuberculin Syringe) Use twice daily to inject octreotide 180 Each 1 09/01/2022 Active Isosorbide Mononitrate ER 30 MG Oral Tablet Extended Release 24 Hour (Imdur) Take 2 Tablets by mouth in the morning. In the morning.. 180 Tablet 3 10/12/2022 Active Atorvastatin Calcium 80 MG Oral Tablet [...] 7 days 28 Capsule 0 11/09/2022 Active Enbrel SureClick 50 MG/ML Subcutaneous Solution [...] as of this encounter (statuses as of 11/18/2022) Active Problems Problem Noted Date Atherosclerosis of coronary artery bypass graft of [place] heart with angina pectoris 10/13/2022 Encounter for [...] urinary tr act symptoms 07/13/2001 Atherosclerosis of [place] ronary artery of [place] heart without angina pectoris Morbid obesity with BMI of 40.0-44.9, ad ult documented as of this encounter (statuses as of 11/18/2022) Resolved Problems Problem Noted Date Resolved Date [...] use aero chamber. Test performed by Dori OPERATING TABLE ASSEMBLER CPFT Body mass index (BMI) of 45.0 [...] TIA (transient ischemic attack) 02/04/2016 11/23/2017 Overview: [facility] Anemia of chronic renal failure 07/30/2015 [...] MANAGEMENT 07/22/2008 0 Overview: Kianna Lyn RN [phone] Examination following surgery 07/11/2008 Difficult intubation 07/10/2008 02/19/2020 Overview: Patient seen and examined in OR#1.Possible difficult intubation.TM distance about 5 cms.MP 3-4. Will plan FOB electively Due to current situation. EXAMINATION OF PARTICIPANT IN CLINICAL TRIAL-gen omics 07/04/2008 05/30/2009 Overview: Renamed Per Clinical Trials Billing Project. Study Titile: Genomic Markers for Patients with Cardiovascular Disease Project #[id number] PI: Miriam Roque MD Please call [phone] with study related questions Chronic coronary artery [...] at goal 07/04/2008 9 GENOMICS CARDIO RESEARCH OTHER*[id number] 200803/23/2016 Overview: Renamed Per Clinical Trials Billing Project. Study Titile: Genomic Markers for Patients with Cardiovascular Disease Project #[id number] PI: Miriam Roque MD Please call [phone] with study related questions Kidney disease, chronic, [...] as of this encounter (statuses as of 11/18/2022) Immunizations Name Administration Dates Next Due COVID-19 [...] encounter Miscellaneous Notes * Telephone Encounter - Eda Mcintosh LPN - 11/18/2022 9:05 AM EDT Signed orders were faxed back to [facility] yesterday (11/17/22) * Telephone Encounter - KATHE Lu - 11/17/2022 2:21 PM EDT Received a call asking if fax was received by office. Name/Company sending fax: [employer] What fax is pertaining to: Order sent 11/10 for PCP to Date(s) they sent request: 11/10 and 11/17 Verified fax number they are sending to is correct (Y or N): y ; gave fax number for "Forms" Callback Number for the clinic to call to verified if fax was received: documented in this encounter Plan of Treatment Upcoming Encounters Date Type Specialty Care Team Description 11/19/2022 Imaging Radiology 11/19/2022 Laboratory Laboratory Franklyn Floyd [facility] [place] [address] 11/22/2022 Imaging Radiology 11/30/2022 Office Visit Urology Denny Armando MD [address] [place] [address] [place] [address] 12/09/[address] [place] [address] 12/13/2022 Office Visit Cardiology Nevaeh Linda PA-C [address] [facility] [place] [address] 12/15/2022 Office Visit Family Medicine Nicola Prado MD [address] [place] [address] [place] [address] 12/20/2022 Office Visit Dermatology Meron Aragon PA-C [address] [place] [address] [place] [address] 01/28/2023 Office Visit Nephrology [facility]ito [facility]vel [facility]-C [facility] [address] 03/04/2023 Office Visit Gastroenterology Marielena Hall CRNP [address] [place] [address] 03/29/2023 Office Visit Cardiology Blair Hannah PA-C [address] [place] [address] 06/02/2023 Nurse Only Ancillary Neeraj, Nurse Annual Well[facility] [address] [place] [address] [place] [address] 10/12/2023 Office Visit Sleep Disorders Eulalia Milligan DO [address] [place] [address] 10/25/2023 Cardiac Studies Cardiology [address] [place] [address] Scheduled Procedures Name Priority Associated Diagnoses Date/Ti me ESOPHAGOGASTRODUODENOSCOPY ( EGD), FLEXIBLE, TRANSORAL, DIAGNOSTIC Recall [place] esophagus COLONOSCOPY FLEXIBLE PROXIMAL DIAGNOSTIC Recall History of colon polyps Health Maintenance Due Date Last Done Comments Alpha-1 Antitrypsin 1960 Zoster Vaccines (1 of 2) 1959 DIABETES-EYE EXAM 09/18/2022 09/18/2021, , 06/03/2020, Additional history exists COVID-19 Vaccine ( season) 2022 06/04/2021, 12/09/2020, 05/09/2020, Additional history exists HbA1c 04/08/2023 10/06/2022, 03/0 10/2022, 10/22/2021, Additional history exists Albumin/Creatinine Ratio 04/23/2023 023, 03/24/2022, 06/19/2021, Additional history exists GFR 05/04/2023 11/03/2022, 10/15, 10/11/2022, Additional history exists Depression Screening 05/29/2023 05/28/2022 [...] this encounter Medical Devices Implanted Type Area Box Spinner Device Identifier Shelf Expiration Date Model / Serial / Lot Sut Steel 6 [id number] - [id number] Implanted:Qty: 6 on 07/10/2008 at OR [facility] N/A: Chest DO NOT USE 08/14/2012 M654G / / [id number] documented as of this encounter Additional Health Concerns Infection Onset Date Last Indicated Resolved Time C. difficile 11/05/2022 11/05/2022 documented as of this encounter Advance Directives Documents on File Type Date Recorded Patient Motor Coach Driver Expl anation Power of Adult Care Provider 06/26/2019 POWER OF A TTORNEY Advance Directives [...] the patient have Health Care Power of Adult Care Provider? No Code Status History Code Status Date [...] patient or by statute hierarchy) Care Teams Medical Specialist Relationship Specialty Start Date End Date Nicola Prado MD [address] [place] [address] [place] [address] PCP - General Family Medicine 06/19/21 documented as of this encounter
--- OUTSIDE RECORDS SUMMARY | 2023-02-03 20:22 | External Medical Summary | Summary of Care ---
Author Name Unknown Organization [facility] Address [address] [place] [address] Phone [phone] Care Team Providers Care Artificial Breeding Ranch Supervisor Name Role Phone Nicola Prado MD Primary Care Provide r Reason for Visit * Reason Onset Date Comments Advice 11/15/2022 Encounter Details Date Type Department Care Team Description 11/15/2022 Telephone Nephrology [address] [place] [address] Services, Scheduling [address] [place] [address] Advice Allergies Active Allergy Reactions Severity Noted Date Comments Hydromorphone High 09/20/2021 Other reaction(s): Nausea Other reaction(s): Nausea 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/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 Other reaction(s): AMS Other reaction(s): AMS Prasugrel 04/02/2016 bleeding Prednisone High 09/20/2021 Other reaction(s): INCREASE BLOOD SUGAR Other reaction(s): INCREASE BLOOD SUGAR documented as of this encounter (statuses as of 11/15/2022) Medications Medication Sig Dispensed Refills Start Date End Date Status ASPIRIN 81 MG PO CHEWIndications:Unst able angina (HCC),Chronic coronary artery disease,Difficult intubation 1 Tab Oral Daily 1 0 07/21/2008 Active oxygen IN GAS Use 2 L/min(Oxygen) as directed daily. 2.5 LPMBled through bipap And 2 LPM with exertion DME: AHP 1 Each 0 03/24/2020 Active Additional Information [...] goal of less than 8.0% ([facility]) Test blood sugar up to five [...] goal of less than 8.0% ([facility]) 12 units with breakfast and supper [...] Tablet 1 05/05/2022 Active Easy Touch Pen [place] 31G X 8 MM (Insulin Pen Needle)Indications:T ype 2 diabetes mellitus with hemoglobin A1c goal of less than 8.0% ([facility]),Type 2 diabetes mellitus with stage 4 chronic kidney disease, unspecified whether jail insulin use ([facility]) Use up to six times daily with insulin. DXe11.9 600 Each 3 05/22/2022 Active Albuterol Sulfate HFA 108 (90 Base) MCG/ACT Inhalation Aerosol SolutionIndications: COPD exacerbation ([facility]),Chronic cough Inhale by mouth 2 Puffs every 4 hours as needed for Cough or Shortness of Breath. Reports doesn't help 18 g 2 05/27/2022 Active Victoza 18 MG/3ML Subcutaneous Solution Pen-injector (Liraglutide)Indicat ions:Type 2 diabetes mellitus with hemoglobin A1c goal of less than 8.0% ([facility]),Type 2 diabetes mellitus with stage 4 chronic kidney disease, with long-term current use of insulin ([facility]) Inject 1.8 mg under the skin daily. 27 mL 3 07/23/2022 Active Furosemide 80 MG Oral Tablet (Lasix) Take 1 Tablet by mouth in the morning. 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 4 mL 1 08/04/2022 Active BD TB Syringe 27G X 1/2" [...] 7 days 28 Capsule 0 11/09/2022 Active Hospital, Clinic, or Other Facility Administered [...] as of this encounter (statuses as of 11/15/2022) Active Problems Problem Noted Date Atherosclerosis of coronary artery bypass graft of [place] heart with angina pectoris 10/13/2022 Encounter for [...] urinary tr act symptoms 07/13/2001 Atherosclerosis of [place] co ronary artery of [place] heart without angina pectoris Morbid obesity with BMI of 40.0-44.9, ad ult documented as of this encounter (statuses as of 11/15/2022) Resolved Problems Problem Noted Date Resolved Date [...] use aero chamber. Test performed by Dori CRANKSHAFT GRINDER CPFT Body mass index (BMI) of [...] MANAGEMENT 07/22/2008 0 Overview: Kianna Lyn, RN [phone] Examination following surgery 07/11/2008 Difficult intubation 07/10/2008 02/19/2020 Overview: Patient seen and examined in OR#1.Possible difficult intubation.TM distance about 5 cms.MP 3-4. Will plan FOB electively Due to current situation. EXAMINATION OF PARTICIPANT IN CLINICAL TRIAL-gen omics 07/04/2008 05/30/2009 Overview: Renamed Per Clinical Trials Billing Project. Study Titile: Genomic Markers for Patients with Cardiovascular Disease Project #[id number] PI: Miriam Roque MD Please call [phone] with study related questions Chronic coronary artery [...] at goal 07/04/2008 9 GENOMICS CARDIO RESEARCH OTHER*[id number] 200803/23/2016 Overview: Renamed Per Clinical Trials Billing Project. Study Titile: Genomic Markers for Patients with Cardiovascular Disease Project #[id number] PI: Miriam Roque MD Please call [phone] with study related questions Kidney disease, chronic, [...] as of this encounter (statuses as of 11/15/2022) Immunizations Name Administration Dates Next Due COVID-19 [...] encounter Miscellaneous Notes * Telephone Encounter - Quin Narvaez MD - 11/15/2022 2:18 PM EDT Appreciate his asking IV contrast they use for heart stress tests is kidney safe Pls PHONE answer back to him as he does not routinely check myG /has been frustrated in past when not called * Telephone Encounter - Marguerite Peoples LPN - 11/15/2022 1:15 PM EDT Per review: Nuclear stress test scheduled 11-19 and 11-22-22. Please advise. * Telephone Encounter - KATHE Millard - 11/15/2022 11:21 AM EDT Have heart test done and Maurisio would like to know if the contrast will cause any issues to his kidneys if someone can please give him a call [phone] documented in this encounter Plan of Treatment Upcoming Encounters Date Type Specialty Care Team Description 11/17/2022 Telemedicine Dermatology Wb, Pharmacist Dermatology [address] [facility] [place] [address] 11/17/2022 Office Visit [address] [place] [address] 11/19/2022 Imaging Radiology 11/22/2022 Imaging Radiology 11/30/2022 Office Visit Urology Denny Armando MD [address] [place] [address] [place] [address] 12/13/2022 Office Visit Cardiology [facility] [place] [address] 12/15/2022 Office Visit Family Medicine Nicola Prado MD [address] [place] [address] [place] [address] 12/20/2022 Office Visit Dermatology Meron Aragon PA-C [address] [place] [address] [place] [address] 01/28/2023 Office Visit Nephrology Verito Jovel [facility]-C [address] [facility] [address] 03/04/2023 Office Visit Gastroenterology Marielena Hall CRNP [address] [place] [address] 03/29/2023 Office Visit Cardiology Blair Hannah PA-C [address] [place] [address] 06/02/2023 Nurse Only Ancillary [place], Nurse Annual Well[facility] [address] [place] [address] [place] [address] 10/12/2023 Office Visit Sleep Disorders SriniKyleekhari TorresDO [address] [place] [address] 10/25/2023 Cardiac Studies Cardiology [facility] [address] [place] [address] Scheduled Procedures Name Priority Associated Diagnoses Date/Ti me ESOPHAGOGASTRODUODENOSCOPY ( EGD), FLEXIBLE, TRANSORAL, DIAGNOSTIC Recall [place] esophagus COLONOSCOPY FLEXIBLE PROXIMAL DIAGNOSTIC Recall History of colon polyps Health Maintenance Due Date Last Done Comments Alpha-1 Antitrypsin 1960 Zoster Vaccines (1 of 2) 1961 COVID-19 Vaccine (5 - Pfizer series) 07/30/2021 06/04/2021, 12/09/2020, 05/09/2020, Additional history exists DIABETES-EYE EXAM 09/18/2022 09/18/2021, , 06/03/2020, Additional history exists HbA1c 04/08/2023 10/06/2022, 03/0 [...] this encounter Medical Devices Implanted Type Area Prevention Specialist Device Identifier Shelf Expiration Date Model / Serial / Lot Sut Steel 6 M654g - [id number] Implanted:Qty: 6 on 07/10/2008 at [place] [facility] N/A: Chest DO NOT USE 08/14/2012 [id number] / / [id number] documented as of this encounter Additional Health Concerns Infection Onset Date Last Indicated Resolved Time C. difficile 11/05/2022 11/05/2022 documented as of this encounter Advance Directives Documents on File Type Date Recorded Patient Administrative Sales Assistant Expl anation Power of Senior Scrum Master 06/26/2019 POWER OF A TTORNEY Advance Directives [...] patient have Health Care Power of Senior Scrum Master? No Code Status History Code Status Date [...] patient or by statute hierarchy) Care Teams Artificial Breeding Ranch Supervisor Relationship Specialty Start Date End Date Nciola Prado MD [address] [place] [address] [place] [address] PCP - General Family Medicine 06/19/21 documented as of this encounter
--- OUTSIDE RECORDS SUMMARY | 2023-02-03 20:22 | External Medical Summary | Summary of Care ---
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) Allergies Active Allergy Reactions Severity Noted Date Comments Hydromorphone High 09/20/2021 Other reaction(s): Nausea Other reaction(s): Nausea 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/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 Other reaction(s): AMS Other reaction(s): AMS Prasugrel 04/02/2016 bleeding Prednisone High 09/20/2021 Other reaction(s): INCREASE BLOOD SUGAR Other reaction(s): INCREASE BLOOD SUGAR documented as of this encounter (statuses as of 11/19/2022) Medications Medication Sig Dispensed Refills Start Date [...] less than 8.0% ([facility]) Test blood sugar up to five times daily; dx E11.9 450 Each 3 12/17/2021 Active OneTouch Ultra In Vitro Strip (Glucose Blood)Indications:Ty pe 2 diabetes mellitus with hemoglobin A1c goal of less than 8.0% ([facility]) 3-4 times a day 450 [...] Tablet 1 05/05/2022 Active Easy Touch Pen [place] 31G X 8 MM (Insulin Pen Needle)Indications:T ype 2 diabetes mellitus with hemoglobin A1c goal of less than 8.0% ([facility]),Type 2 diabetes mellitus with stage 4 chronic kidney disease, unspecified whether prison insulin use ([facility]) Use up to six times daily with insulin. DXe11.9 600 Each 3 05/22/2022 Active Albuterol Sulfate HFA 108 (90 Base) MCG/ACT Inhalation Aerosol SolutionIndications: COPD exacerbation ([facility]),Chronic cough Inhale by mouth 2 [...] as of this encounter (statuses as of 11/19/2022) Active Problems Problem Noted Date Atherosclerosis of coronary artery bypass graft of [place] heart with angina pectoris 10/13/2022 Encounter for [...] Gout 02/22/2019 Overview: big toe uric acid .7 Chronic diastolic heart failure 02/21/19 20 Pulmonary [...] urinary tr act symptoms 07/13/2001 Atherosclerosis of [place] co ronary artery of [place] heart without angina pectoris Morbid obesity with BMI of 40.0-44.9, ad ult documented as of this encounter (statuses as of 11/19/2022) Resolved Problems Problem Noted Date Resolved Date [...] use aero chamber. Test performed by Dori OFFAL TRIMMER CPFT Body mass index (BMI) of 45.0 [...] 07/22/2008 0 Overview: Kianna Lyn, RN [phone] Examination following surgery 07/11/2008 Difficult intubation 07/10/2008 02/19/2020 Overview: Patient seen and examined in OR#1.Possible difficult intubation.TM distance about 5 cms.MP 3-4. Will plan FOB electively Due to current situation. EXAMINATION OF PARTICIPANT IN CLINICAL TRIAL-gen omics 07/04/2008 05/30/2009 Overview: Renamed Per Clinical Trials Billing Project. Study Titile: Genomic Markers for Patients with Cardiovascular Disease Project #[id number] PI: Miriam Roque MD Please call [phone] with study related questions Chronic coronary artery [...] at goal 07/04/2008 9 GENOMICS CARDIO RESEARCH OTHER*[id number] 200803/23/2016 Overview: Renamed Per Clinical Trials Billing Project. Study Titile: Genomic Markers for Patients with Cardiovascular Disease Project #[id number] PI: Miriam Roque MD Please call [phone] with study related questions Kidney disease, chronic, [...] as of this encounter (statuses as of 11/19/2022) Immunizations Name Administration Dates Next Due COVID-19 [...] Encounters Date Type Specialty Care Team Description 11/22/2022 Imaging Radiology 11/30/2022 Office Visit Urology Denny Armando MD [address] [address] [place] [address] 12/09/[address] [place] [address] 12/13/2022 Office Visit Cardiology Nevaeh Linda PA-C [address] [facility] [place] [address] 12/15/2022 Office Visit Family Medicine Nicola Prado MD [address] [place] [address] [place] [address] 12/20/2022 Office Visit Dermatology Meron Aragon PA-C [address] [place] [address] [place] [address] 01/28/2023 [facility] [address] 03/04/2023 Office Visit Gastroenterology Marielena Hall CRNP [address] [place] [address] 03/29/2023 Office Visit Cardiology Blair Hannah PA-C [address] [place] [address] 06/02/2023 Nurse Only Ancillary Nurse Neer[facility] [address] [place] [address] [place] [address] 10/12/2023 Office Visit Sleep Disorders Eulalia Milligan DO [address] [place] [address] 10/25/2023 Cardiac Studies Cardiology Keith Pickard [facility] [address] [place] [address] Pending Results Name Type Priority Associated Diagnoses Date /Time CBC WITH WBC DIFFERENTIAL Lab Routine Iron deficiency anemia 11/19/2022 9:45 AM EDT BASIC METABOLIC PANEL Lab Routine 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) 11/19/2022 9:45 AM EDT CBC Lab Routine Iron deficiency anemia 11/19/2022 9:45 AM EDT DIFFERENTIAL, AUTOMATED Lab Routine Iron deficiency anemia 11/19/2022 9:45 AM EDT Scheduled Procedures Name Priority Associated Diagnoses Date/Ti me ESOPHAGOGASTRODUODENOSCOPY ( EGD), FLEXIBLE, TRANSORAL, DIAGNOSTIC Recall Hen[place] esophagus COLONOSCOPY FLEXIBLE PROXIMAL DIAGNOSTIC Recall History of colon polyps Health Maintenance Due Date Last Done Comments Alpha-1 Antitrypsin 1960 Zoster Vaccines (1 of 2) 1961 Henning's Esophagus Surveilance 06/24/2018 06/25/2015, 12/05/2013 DIABETES-EYE EXAM 09/18/2022 09/18/2021, , 06/03/2020, Additional history exists COVID-19 Vaccine (2022-24 season) 2022 06/04/2021, 12/09/2020, 05/09/2020, Additional history [...] this encounter Medical Devices Implanted Type Area Digital Account Supervisor Device Identifier Shelf Expiration Date Model / Serial / Lot Lei Agrawal 6 [id number] - [id number] [place]ed:Q[place] 6 [place] [facility] [place] Chest DO NOT USE 08/14/2012 [id number] / / [id number] documented as of this encounter Visit Diagnoses Diagnosis Iron deficiency anemia Iron deficiency anemia, unspecified 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 difficile 11/05/2022 11/05/2022 documented as of this encounter Advance Directives Documents on File Type Date Recorded Patient Network Security Consultant Expl anation Power of Electrical Tester Battery 06/26/2019 POWER OF A TTORNEY Advance Directives [...] the patient have Health Care Power of Electrical Tester Battery? No Code Status History Code Status Date [...] patient or by statute hierarchy) Care Teams Director Of Officiating Relationship Specialty Start Date End Date Nicola Prado MD [address] [place] [address] [place] [address] PCP - General Family Medicine 06/19/21 documented as of this encounter
--- OUTSIDE RECORDS SUMMARY | 2023-02-03 20:22 | External Medical Summary | Summary of Care ---
Author Name Unknown Organization [facility] Address [address] [place] [address] Phone [phone] Care Team Providers Care Set Up Inspector Name Role Phone Nciola Prado MD Primary Care Provide r Reason for Visit * Reason Onset Date Comments Test Results 11/22/2022 Encounter Details Date Type Department Care Team Description 11/22/2022 Telephone Nephrology, Mindi Angwin [address] [place] [address] Quin Narvaez MD [address] [place] [address] Test Results Allergies Active Allergy Reactions Severity Noted Date Comments Hydromorphone High 09/20/2021 Other reaction(s): Nausea Other reaction(s): Nausea 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/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 Other reaction(s): AMS Other reaction(s): AMS Prasugrel 04/02/2016 bleeding Prednisone High 09/20/2021 Other reaction(s): INCREASE BLOOD SUGAR Other reaction(s): INCREASE BLOOD SUGAR documented as of this encounter (statuses as of 11/22/2022) Medications Medication Sig Dispensed Refills Start Date [...] Tablet 1 05/05/2022 Active Easy Touch Pen [place] 31G X 8 MM (Insulin Pen Needle)Indications:T ype 2 diabetes mellitus with hemoglobin A1c goal of less than 8.0% (HCC),Type 2 diabetes mellitus with stage 4 chronic kidney disease, unspecified whether longterm insulin use ([facility]) Use up to six times daily with insulin. DXe11.9 600 Each 3 05/22/2022 Active Albuterol Sulfate HFA 108 (90 Base) MCG/ACT Inhalation Aerosol SolutionIndications: COPD exacerbation ([facility]),Chronic cough Inhale by mouth 2 Puffs [...] 12 Hour (Mucinex)Indications :COPD exacerbation ([facility]) Take 1 Tablet by mouth 2 [...] as of this encounter (statuses as of 11/22/2022) Active Problems Problem Noted Date Atherosclerosis of coronary artery bypass graft of [place] heart with angina pectoris 10/13/2022 Encounter for [...] urinary tr act symptoms 07/13/2001 Atherosclerosis of [place] co ronary artery of [place] heart without angina pectoris Morbid obesity with BMI of 40.0-44.9, ad ult documented as of this encounter (statuses as of 11/22/2022) Resolved Problems Problem Noted Date Resolved Date [...] use aero chamber. Test performed by Dori COMPOSITION ROOFER CPFT Body mass index (BMI) of 45.0 [...] (transient ischemic attack) 02/04/2016 11/23/2017 Overview: [facility] Anemia of chronic renal failure 07/30/2015 01/27/2017 [...] 07/22/2008 0 Overview: Kianna Lyn RN [phone] Examination following surgery 07/11/2008 Difficult intubation 07/10/2008 02/19/2020 Overview: Patient seen and examined in OR#1.Possible difficult intubation.TM distance about 5 cms.MP 3-4. Will plan FOB electively Due to current situation. EXAMINATION OF PARTICIPANT IN CLINICAL TRIAL-gen omics 07/04/2008 05/30/2009 Overview: Renamed Per Clinical Trials Billing Project. Study Titile: Genomic Markers for Patients with Cardiovascular Disease Project #[id number] PI: Miriam Roque MD Please call [phone] with study related questions Chronic coronary artery [...] at goal 07/04/2008 9 GENOMICS CARDIO RESEARCH OTHER*[id number] 200803/23/2016 Overview: Renamed Per Clinical Trials Billing Project. Study Titile: Genomic Markers for Patients with Cardiovascular Disease Project #[id number] PI: Miriam Roque MD Please call [phone] with study related questions Kidney disease, chronic, [...] as of this encounter (statuses as of 11/22/2022) Immunizations Name Administration Dates Next Due COVID-19 [...] Telephone Encounter - Radha Hammer RN - 11/22/2022 11:06 AM EDT TE with pt regarding stable lab results. * Telephone Encounter - Radha Hammer RN - 11/22/2022 11:05 AM EDT ----- Message from Quin Narvaez MD sent at 11/19/2022 4:27 PM EDT ----- Kidney labs stable or better than baseline continue same. Pls CALL pt w/ results documented in this encounter Plan of Treatment Upcoming Encounters Date Type Specialty Care Team Description 11/30/2022 Office Visit Urology Denny Armando MD [address] [place] [address] [place] [address] 12/09/2022 Pharmacy Pharmacy [address] [place] [address] 12/13/2022 Office Visit Cardiology Nevaeh Linda PA-C [address] [place] [address] [place] [phone] 12/15/2022 Office Visit Family Medicine Nicola Prado MD [address] [place] [address] [place] [address] 12/20/2022 Office Visit Dermatology Meron Aragon PA-C [address] [place] [address] [place] [address] 01/28/2023 Office Visit Nephrology Verito [facility]vel [facility]C [address] [facility] [address] 03/04/2023 Office Visit Gastroenterology Marielena Hall CRNP [address] [place] [address] 03/29/2023 Office Visit Cardiology Blair Hannah PA-C [address] [place] [address] 06/02/2023 Nurse Only Ancillary Nurse Neeraj [address] [place] [address] 10/12/2023 Office Visit Sleep Disorders Eulalia Milligan DO [address] [place] [address] 10/25/2023 Cardiac Studies Cardiology Keith Pickard [facility] [address] [place] [address] Scheduled Procedures Name Priority Associated Diagnoses Date/Ti me ESOPHAGOGASTRODUODENOSCOPY ( EGD), FLEXIBLE, TRANSORAL, DIAGNOSTIC Recall [place] esophagus COLONOSCOPY FLEXIBLE PROXIMAL DIAGNOSTIC Recall History [...] this encounter Medical Devices Implanted Type Area Upper And Bottom Lacer Hand Device Identifier Shelf Expiration Date Model / Serial / Lot Sut [facility] 6 M654g - [id number] Implanted:Qty: 6 on 07/10/2008 [place] [facility] [place]A: Chest DO NOT USE 08/14/2012 M654G / / [id number] documented as of this encounter Additional Health Concerns Infection Onset Date Last Indicated Resolved Time C. difficile 11/05/2022 11/05/2022 documented as of this encounter Advance Directives Documents on File Type Date Recorded Patient Per Diem Physical Therapist Assistant Expl anation Power of Warehouse Attendant 06/26/2019 POWER OF A TTORNEY Advance Directives [...] the patient have Health Care Power of Warehouse Attendant? No Code Status History Code Status Date [...] patient or by statute hierarchy) Care Teams Set Up Inspector Relationship Specialty Start Date End Date Nicola Prado MD [address] [place] [address] [place] [phone] PCP - General Family Medicine 06/19/21 documented as of this encounter
--- OUTSIDE RECORDS SUMMARY | 2023-02-03 20:22 | External Medical Summary ---
Author Name Unknown Address Unknown Organization [facility] [address] [place] [address] Laboratory Report Ordering Provider Test Date Status [place] 11/19/2022 09:45:14 Final Observation Date Value Abnormality Reference (Units ) Status SYNC LEUKOCYTES IN BLOOD BY AUTOMATED COUNT 11/19/2022 09:45:14 12.82 Above high normal 4.00-10.80 (K/uL) Final Segs 11/19/2022 09:45:14 76.7 Above high normal 40.0-75.0 (%) Final Lymphs % 11/19/2022 09:45:14 12.4 Below low normal 18.0-42.0 (%) Final Monos 11/19/2022 09:45:14 3.5 1.0-11.0 (%) Final Eosinophils 11/19/2022 09:45:14 7.1 Above high normal 0.0-6.0 (%) Final Basos 11/19/2022 09:45:14 0.3 0.0-2.0 (%) Final Absolute Segs 11/19/2022 09:45:14 9.83 Above high normal 1.80-7.70 (K/uL) Final Lymphs, absolute 11/19/2022 09:45:14 1.59 1.00-4.80 (K/ul) Final Monos, Abs 11/19/2022 09:45:14 0.45 0.00-1.10 (K/uL) Final Eos, Abs 11/19/2022 09:45:14 0.91 Above high normal 0.00-0.70 (K/uL) Final Basos, Abs 11/19/2022 09:45:14 0.04 0.00-0.20 (K/uL) Final Performing Location [facility] [address] [place] [address]
--- OUTSIDE RECORDS SUMMARY | 2023-02-03 20:22 | External Medical Summary | Summary of Care ---
Author Name Unknown Organization [facility] Address [address] [place] [address] Phone [phone] Care Team Providers Care Pit Clerk Name Role Phone Nicola Prado MD Primary Care Provide r Reason for Visit * Reason Onset Date Comments Advice 11/15/2022 Encounter Details Date Type Department Care Team Description 11/15/2022 Telephone Nephrology [address] [place] [address] Services, Scheduling [address] [place] [address] Advice Allergies Active Allergy Reactions Severity Noted [...] goal of less than 8.0% ([facility]) Test blood sugar up to [...] goal of less than 8.0% ([facility]) 12 units with breakfast and [...] Tablet 1 05/05/2022 Active Easy Touch Pen [place] 31G X 8 MM (Insulin Pen Needle)Indications:T ype 2 diabetes mellitus with hemoglobin A1c goal of less than 8.0% ([facility]),Type 2 diabetes mellitus with stage 4 chronic kidney disease, unspecified whether prison insulin use ([facility]) Use up to six times daily with insulin. DXe11.9 600 Each 3 05/22/2022 Active Albuterol Sulfate HFA 108 (90 Base) MCG/ACT Inhalation Aerosol SolutionIndications: COPD exacerbation ([facility]),Chronic cough Inhale by mouth 2 Puffs every 4 hours as needed for Cough or Shortness of Breath. Reports doesn't help 18 g 2 05/27/2022 Active Victoza 18 MG/3ML Subcutaneous Solution Pen-injector (Liraglutide)Indicat ions:Type 2 diabetes mellitus with hemoglobin A1c goal of less than 8.0% ([facility]),Type 2 diabetes mellitus with stage 4 chronic kidney disease, with long-term current use of insulin ([facility]) Inject 1.8 mg under the skin daily. 27 mL 3 07/23/2022 Active Furosemide 80 MG Oral Tablet (Lasix) Take 1 Tablet by mouth in the morning. 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 Test performed by Dori NEWBORN PHOTOGRAPHER CPFT Body mass index (BMI) of 45.0 [...] MANAGEMENT 07/22/2008 0 Overview: Kianna Lyn, RN [phone] Examination following surgery 07/11/2008 Difficult intubation 07/10/2008 02/19/2020 Overview: Patient seen and examined in OR#1.Possible difficult intubation.TM distance about 5 cms.MP 3-4. Will plan FOB electively Due to current situation. EXAMINATION OF PARTICIPANT IN CLINICAL TRIAL-gen omics 07/04/2008 05/30/2009 Overview: Renamed Per Clinical Trials Billing Project. Study Titile: Genomic Markers for Patients with Cardiovascular Disease Project #[id number] PI: Miriam Roque MD Please call [phone] with study related questions Chronic coronary artery [...] at goal 07/04/2008 9 GENOMICS CARDIO RESEARCH OTHER*[id number] 200803/23/2016 Overview: Renamed Per Clinical Trials Billing Project. Study Titile: Genomic Markers for Patients with Cardiovascular Disease Project #[id number] PI: Miriam Roque MD Please call [phone] with study related questions Kidney disease, chronic, [...] Telephone Encounter - Radha Hammer RN - 11/15/2022 2:37 PM EDT TE with pt regarding safeness of IV dye for heart testing. He thanked me for the call. * Telephone Encounter - Quin Narvaez MD [...] someone can please give him a call [phone] documented in this encounter Plan of Treatment Upcoming Encounters Date Type Specialty Care Team Description 11/17/2022 Telemedicine Dermatology Wb, Pharmacist Dermatology E [facility] [address] [place] [address] 11/17/2022 Office Visit Pharmacy [address] [place] [address] 11/19/2022 Imaging Radiology 11/22/2022 Imaging Radiology 11/30/2022 Office Visit Urology Denny Armando MD [address] [facility] [address] [place] [address] 12/13/2022 Office Visit Cardiology Nevaeh Linda PA-C [address] [facility] [place] [address] 12/15/2022 Office Visit Family Medicine Nicola Prado MD [address] [place] [address] [place] [address] 12/20/2022 Office Visit Dermatology Meron Aragon PA-C [address] [place] [address] [place] [address] 01/28/2023 Office Visit Nephrology Verito Jovel PA-C 200 [facility] [place] [address] 03/04/2023 Office Visit Gastroenterology Marielena Hall CRNP [address] [facility] [place] [address] 03/29/2023 Office Visit Cardiology Blair Hannah PA-C [address] [place] [address] 06/02/2023 Nurse Only Ancillary Neeraj Nurse Annual [address] [place] [address] 10/12/2023 Office Visit Sleep Disorders Eulalia Milligan DO [address] [place] [address] 10/25/2023 Cardiac Studies [facility] [address] [place] [address] Scheduled Procedures Name Priority Associated Diagnoses Date/Ti [...] this encounter Medical Devices Implanted Type Area Picture Copyist Device Identifier Shelf Expiration Date Model / Serial / Lot Sut Steel 6 [id number] - [id number] Implanted:Qty: 6 on 07[place]10[place] [facility] [place]: Chest DO NOT USE 08/14/2012 [id number] / / [id number] documented as of this encounter Additional Health Concerns Infection Onset Date Last Indicated Resolved Time C. difficile 11/05/2022 11/05/2022 documented as of this encounter Advance Directives Documents on File Type Date Recorded Patient Performance Solutions Specialist Expl anation Power of Carpenter Helper 06/26/2019 POWER OF A TTORNEY Advance [...] the patient have Health Care Power of Carpenter Helper? No Code Status History Code Status [...] patient or by statute hierarchy) Care Teams Pit Clerk Relationship Specialty Start Date End Date Nicola Prado MD [address] [place] [address] [place] [address] PCP - General Family Medicine 06/19/21 documented as of this encounter
--- OUTSIDE RECORDS SUMMARY | 2023-02-03 20:22 | External Medical Summary | Summary of Care ---
Author Name Unknown Organization [facility] Address [address] [place] [address] Phone [phone] Care Team Providers Care Medical Technologist Clinical Name Role Phone Nicola Prado MD Primary Care Provide r Encounter Details Date Type Department Care Team Description 11/17/2022 Office Visit Pharmacy, [address] [place] [address] [place] [address] No Show Allergies Active Allergy Reactions Severity Noted Date [...] goal of less than 8.0% ([facility]) Test blood sugar up to [...] Tablet 1 05/05/2022 Active Easy Touch Pen [place] 31G X 8 MM (Insulin Pen Needle)Indications:T ype 2 diabetes mellitus with hemoglobin A1c goal of less than 8.0% ([facility]),Type 2 diabetes mellitus with stage 4 chronic kidney disease, unspecified whether assisted insulin use ([facility]) Use up to six times daily with insulin. DXe11.9 600 Each 3 05/22/2022 Active Albuterol Sulfate HFA 108 (90 Base) MCG/ACT Inhalation Aerosol SolutionIndications: COPD exacerbation ([facility]),Chronic cough Inhale by mouth 2 Puffs every 4 hours as needed for Cough or Shortness of Breath. Reports doesn't help 18 g 2 05/27/2022 Active Victoza 18 MG/3ML Subcutaneous Solution Pen-injector (Liraglutide)Indicat ions:Type 2 diabetes mellitus with hemoglobin A1c goal of less than 8.0% ([facility]),Type 2 diabetes mellitus with stage 4 chronic kidney disease, with long-term current use of insulin ([facility]) Inject 1.8 mg under the [...] Atherosclerosis of coronary artery bypass graft of [place] heart with angina pectoris 10/13/2022 Encounter for [...] urinary tr act symptoms 07/13/2001 Atherosclerosis of [place] co ronary artery of [place] heart without angina pectoris Morbid obesity with [...] (transient ischemic attack) 02/04/2016 11/23/2017 Overview: [facility] Anemia of chronic renal failure 07/30/2015 [...] MANAGEMENT 07/22/2008 0 Overview: Kianna Lyn, RN [phone] Examination following surgery 07/11/2008 Difficult intubation 07/10/2008 02/19/2020 Overview: Patient seen and examined in OR#1.Possible difficult intubation.TM distance about 5 cms.MP 3-4. Will plan FOB electively Due to current situation. EXAMINATION OF PARTICIPANT IN CLINICAL TRIAL-gen omics 07/04/2008 05/30/2009 Overview: Renamed Per Clinical Trials Billing Project. Study Titile: Genomic Markers for Patients with Cardiovascular Disease Project #[id number] PI: Miriam Roque MD Please call [phone] with study related questions Chronic coronary artery [...] at goal 07/04/2008 9 GENOMICS CARDIO RESEARCH OTHER*[id number] 200803/23/2016 Overview: Renamed Per Clinical Trials Billing Project. Study Titile: Genomic Markers for Patients with Cardiovascular Disease Project #[id number] PI: Miriam Roque MD Please call [phone] with study related questions Kidney disease, chronic, [...] [facility] Visit [facility] [place] [address] 12/09/[address] [place] [address] 12/13/2022 Office Visit Cardiology Nevaeh Linda PA-C [facility] [place] [address] 12/15/2022 Office Visit Family Medicine Nicola Prado MD [address] [place] [address] [place] [address] 12/20/2022 Office Visit Dermatology Meron Aragon PA-C [address] [place] [address] [place] [address] 01/28/2023 Office Visit Nephrology Verito Jovel PA-C 200 [facility] [place] [place] [address] 03/04/2023 Office Visit Gastroenterology Marielena Hall CRNP [address] [place] [address] 03/29/2023 Office Visit Cardiology Blair Hannah PA-C [address] [place] [address] 06/02/2023 Nurse Only Ancillary Nurse Neeraj Annual [address] [place] [address] 10/12/2023 Office Visit Sleep Disorders Eulalia Milligan DO [address] [place] [address] 10/25/2023 Cardiac Studies Cardiology [facility] [address] [place] [address] Scheduled Procedures Name Priority Associated Diagnoses Date/Ti [...] this encounter Medical Devices Implanted Type Area Food And Nutrition Teacher Device Identifier Shelf Expiration Date Model / Serial / Lot Sut Steel 6 [id number] - [id number] Implanted:Qty: 6 on 07/10/2008 at [place] [facility] [place]/A: Chest DO NOT USE 08/14/2012 [id number] / / [id number] documented as of this encounter Procedures Procedure Name Priority Date/Time Associated Diagnosis Comments NM MYOCARDIAL PERFUSION IMAGING SPECT MULTIPLE STUDIES WITH PHARMACOLOGIC INTERVENTION Routine 11/19/2022 8:25 AM EDT documented in this encounter Results * NM MYOCARDIAL PERFUSION IMAGING SPECT MULTIPLE STUDIES WITH PHARMACOLOGIC INTERVENTION (11/19/2022 8:25 AM EDT) LEFT VENTRICULAR EJECTION FRACTION 68 % [facility] CARDIOLOGY 11/19/2022 8:25 AM EDT No Physician Data Unknown RAD NUCLEAR ME D [facility] CARDIOLOGY documented in this encounter Additional Health Concerns Infection Onset Date Last Indicated Resolved Time C. difficile 11/05/2022 11/05/2022 documented as of this encounter Advance Directives Documents on File Type Date Recorded Patient Intramural Director Expl anation Power of Procurement Services Manager 06/26/2019 POWER OF A TTORNEY Advance [...] the patient have Health Care Power of Procurement Services Manager? No Code Status History Code Status [...] or by statute hierarchy) Care Teams Medical Technologist Clinical Relationship Specialty Start Date End Date Nicola Prado MD [address] [place] [address] [place] [address] PCP - General Family Medicine 06/19/21 documented as of this encounter
--- OUTSIDE RECORDS SUMMARY | 2023-02-03 20:22 | External Medical Summary ---
Author Name Unknown Address Unknown Organization K0G:[facility] [place] [address] [place] [address] Laboratory Report Ordering Provider Test Date Status [place] 11/19/2022 09:45:14 Final Observation Date Value Abnormality Reference (Units ) Status WBC, Total 11/19/2022 09:45:14 12.82 Above high normal 4 .00-10.80 (K/uL) Final RBC 11/19/2022 09:45:14 3.82 4.50-5.25 (M/uL) Final Hemoglobin 11/19/2022 09:45:14 11.9 Below low normal 14 .0-16.8 (g/dL) Final HCT 11/19/2022 09:45:14 37.4 Below low normal 40. 0-48.4 (%) Final MCV 11/19/2022 09:45:14 97.9 82.0-99.5 (fL) Final MCH 11/19/2022 09:45:14 31.2 27.0-34.0 (pg) Final MCHC 11/19/2022 09:45:14 31.8 32.0-36.0 (g/dL) Final RDW 11/19/2022 09:45:14 15.8 11.5-15.5 (%) Final Platelets 11/19/2022 09:45:14 234 140-400 (K /uL) Final MPV 11/19/2022 09:45:14 9.1 6.6-11.1 ( fL) Final Performing Location [facility] [place] [address] [place] [address]
--- OUTSIDE RECORDS SUMMARY | 2023-02-03 20:22 | External Medical Summary ---
Author Name Unknown Address Unknown Organization K0G:[facility] [place] [address] [place] [id number] Laboratory Report Ordering Provider Test Date Status DIANA PONCE 11/19/2022 09:45:14 Final Observation Date Value Abnormality Reference (Units ) Status BUN 11/19/2022 09:45:14 21 Above high normal 6-20 (mg/dL) Final Creatinine 11/19/2022 09:45:14 1.8 Above high normal 0.6-1.2 (mg/dL) Final Glomerular filtration rate/1.73 sq M.predicted [Volume Rate/Area] in Serum, Plasma or Blood by Creatinine-based formula (CKD-EPI) 11/19/2022 09:45:14 37 Below low normal >=60 (mL/min) Final eGFR is calculated based on the CKD-EPI 2020 equation SODIUM 11/19/2022 09:45:14 139 135-146 (m mol/L) Final Potassium 11/19/2022 09:45:14 4.1 3.5-5.1 (m mol/L) Final Cl 11/19/2022 09:45:14 98 98-107 (mm ol/L) Final CO2 11/19/2022 09:45:14 28 22-32 (mmo l/L) Final Anion gap 11/19/2022 09:45:14 13 7-15 (mmol /L) Final Glucose 11/19/2022 09:45:14 144 Above high normal 70 -120 (mg/dL) Final Calcium 11/19/2022 09:45:14 8.9 8.4-10.2 ( mg/dL) Final Performing Location [facility] [place] [address] [place] [address]
--- OUTSIDE RECORDS SUMMARY | 2023-02-03 20:22 | External Medical Summary | Summary of Care ---
Author Name Unknown Organization [facility] Address [address] [place] [address] Phone [phone] Care Team Providers Care Dumper [employer] Name Role Phone Nicola Prado MD Primary Care Provide r Reason for Referral * Evaluate & Treat - Unlimited Visits (Within 10 days (routine)) - Authorized Specialty Diagnoses / Procedures Referred By Souleymane rogel Referred To Contact Pharmacist / Pharmacy Diagnoses Psoriasis Meron Aragon PA-C [address] [place] [address] [place] [address] Referral ID Status Reason Start Date Expiration Date Visits Requested Visits Authorized [id number] Authorized Specialty Services Required 11/17/2022 99 99 Question Answer Referral Priority Within 10 days (routine) Department: Specialist Specialty: Derm Reason for Referral: Co-Management - extended Comments Pharmacist Medication Therapy Management: Minimum frequency patient should be seen in person for medication management: as appropriate per clinical condition and patient status By my signature, I understand that my patient Maurisio Beltran will have his medication therapy managed by the [facility] ([facility]) per established policies, procedures, and protocols. I also certify that this referral may serve as an initiation of service for the management of drug therapy in the above noted patient. [facility] providers will be responsible for scheduling patient visits, obtaining appropriate laboratory studies, and adjusting medication management therapy per patient's need, in addition to those roles spelled out in the clinic policy, procedures, and drug management protocols. I understand that the service provided by the [facility] is voluntary and have informed patient that they can refuse the service at their discretion. I am aware that the [facility] will provide me with a copy of the patient encounter via my [employer]. I authorize the [facility] to carry out these activities on my behalf. I consider this program to be a necessary part of the patient's medical care. Reason for Visit * Reason Comments Dosage Adjustment Via Phone (anticoag Cl inic) Encounter Details Date Type Department Care Team Description 11/17/2022 Telemedicine Dermatology, Tarik Yuan [address] [facility] [place] [address] [place], Pharmacist Dermatology E [facility] [address] [facility] [place] [address] Psoriasis*; H/O psoriasis; 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HCC) Allergies Active Allergy Reactions Severity Noted Date Comments Hydromorphone High 09/20/2021 Other reaction(s): Nausea Other reaction(s): Nausea 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/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 Other reaction(s): AMS Other reaction(s): AMS Prasugrel 04/02/2016 bleeding Prednisone High 09/20/2021 Other reaction(s): INCREASE BLOOD SUGAR Other reaction(s): INCREASE BLOOD SUGAR documented as of this encounter (statuses as of 11/17/2022) Medications Medication Sig Dispensed Refills Start Date [...] with CPAP, and 3 LPM with exertion/activity)DME: [facility], Informant: Patient, Reported on 05/05/2022 Fluticasone Propionate [...] ([facility]) Test blood sugar up to [...] ([facility]) 12 units with breakfast and supper [...] Tablet 1 05/05/2022 Active Easy Touch Pen [place] 31G X 8 MM (Insulin Pen Needle)Indications :Type 2 diabetes mellitus with hemoglobin A1c goal of less than 8.0% ([facility]),Type 2 diabetes mellitus with stage 4 chronic kidney disease, unspecified whether rn long term care insulin use ([facility]) Use up to six times daily with insulin. DXe11.9 600 Each 3 05/22/2022 Active Albuterol Sulfate HFA 108 (90 Base) MCG/ACT Inhalation Aerosol SolutionIndication s:COPD exacerbation ([facility]),Chronic cough Inhale by mouth 2 Puffs [...] Release 12 Hour (Mucinex)Indicatio ns:COPD exacerbation ([facility] [...] a week. 4 mL 1 11/17/2022 Active Enbrel SureClick 50 MG/ML Subcutaneous Solution Auto-injector (Etanercept)Indica tions:Polyarticula r psoriatic arthritis (HCC),H/O psoriasis Inject 50 mg (1 pen) under the skin once a week. 4 mL 1 11/16/2022 3 Discontinue d(Refill) Enbrel SureClick 50 MG/ML Subcutaneous Solution Auto-injector (Etanercept)Indica tions:H/O psoriasis,Polyarti cular psoriatic arthritis (HCC) Inject 50 mg under the skin once a week. 4 mL 1 11/17/2022 3 Discontinue d(Refill) Hospital, Clinic, or Other [...] as of this encounter (statuses as of 11/17/2022) Active Problems Problem Noted Date Atherosclerosis of coronary artery bypass graft of [place] heart with angina pectoris 10/13/2022 Encounter for [...] urinary tr act symptoms 07/13/2001 Atherosclerosis of [place] co ronary artery of [place] heart without angina pectoris Morbid obesity with BMI of 40.0-44.9, ad ult documented as of this encounter (statuses as of 11/17/2022) Resolved Problems Problem Noted Date Resolved Date [...] use aero chamber. Test performed by Dori EMERY WHEEL WORKER CPFT Body mass index (BMI) of 45.0 [...] (transient ischemic attack) 02/04/2016 11/23/2017 Overview: [facility] Anemia of chronic renal failure [...] MANAGEMENT 07/22/2008 0 Overview: Kianna Lyn RN [phone] Examination following surgery 07/11/2008 Difficult intubation 07/10/2008 02/19/2020 Overview: Patient seen and examined in OR#1.Possible difficult intubation.TM distance about 5 cms.MP 3-4. Will plan FOB electively Due to current situation. EXAMINATION OF PARTICIPANT IN CLINICAL TRIAL-gen omics 07/04/2008 05/30/2009 Overview: Renamed Per Clinical Trials Billing Project. Study Titile: Genomic Markers for Patients with Cardiovascular Disease Project #[id number] PI: Miriam Roque MD Please call [phone] with study related questions Chronic coronary artery [...] at goal 07/04/2008 9 GENOMICS CARDIO RESEARCH OTHER*[id number] 200803/23/2016 Overview: Renamed Per Clinical Trials Billing Project. Study Titile: Genomic Markers for Patients with Cardiovascular Disease Project #[id number] PI: Miriam Roque MD Please call [phone] with study related questions Kidney disease, chronic, [...] as of this encounter (statuses as of 11/17/2022) Immunizations Name Administration Dates Next Due COVID-19 mRNA, LNP-s, No Pre serve, 2-Dose Series ([employer]) 12/09/2020,05/09/2020,04/11/2020 COVID-19, LNP-s, No Preserve , Juan [...] as of this encounter Progress Notes * Niya Higginbotham, [facility] - 11/17/2022 10:34 AM EDT After connecting to the patient via telephone, the patient was identified by name and date of . Patient was then informed that this was a telephone call only visit. The patient agreed to participate. Visit Disposition: Routine follow-up Total call duration was 20 minutes. Dermatology Clinical Pharmacy Dermatology Provider: Meron Aragon PA-C Pharmacist Referral for: Extended Follow-up Visit: Extended follow-up Disease Type: Autoimmune: Psoriasis - Psoriasis, unspecified L40.9 MEDICAL/SOCIAL HISTORY: Lipids - annually: Controlled Glucose - annually: Controlled Blood pressure - annually: Controlled Smoking: Former smoker CURRENT MEDICATION REGIMEN: Biologic Therapy: Etanercept (Enbrel) Maintenance 50mg/ml Pen - 50mg once weekly Date of initiation of present therapy: unsure. Stop date for present therapy: not applicable at this time. Last Dose: ~3 weeks ago Prior history of biologic therapy? N/a Topical Therapy: Not using Applying to: not using Frequency of use: Never Phototherapy: no MEDICATION ASSESSMENT: Adherence: In the last month, how many times has patient missed a dose of above noted medication? 0. In the last month, how many times has patient taken dosage later than instructed? 0. Side Effects Reported: no What does patient do when they have these side effects? N/a Assessment of education: thorough understanding. Education provided today: yes; verbal. Any new medication since last visit?: no new medications/OTC/herbals. SYMPTOM/ILLNESS ASSESSMENT : Patient account of regimen effectiveness: improvement in condition/symptoms. Hospitalization, ED visits, or surgery since last visit: No Joint symptoms: PsA on file FOLLOW UP LABS: Quantiferon gold (yearly): completed 06/2022 CBC w/diff (every 6 months): completed CMP(every 6 months): completed HEALTH MAINTENANCE: Immunizations: Up to date immunizations: Influenza Facilitated administration of: denies shingles immunizations PLAN: Patient reports: - Not taking Enbrel in 3 weeks due to diverticulitis - While on Enbrel, it works well - Mostly cleared with lizzette spots that are not bothersome - No issues with injections or side effects - No issues obtaining from pharmacy; affordable Auth on file Labs up to date Follow-Up Appointment(s): Pharmacist: Extended follow-up Physician: 12/20/2022 Niya Higginbotham RPh Medication Therapy Disease Management Dermatology Department 11/17/2022, 10:38 AM documented in this encounter Plan of Treatment Upcoming Encounters Date Type Specialty Care Team Description 11/17/2022 Office Visit [address] [place] [address] 11/19/2022 Imaging Radiology 11/22/2022 Imaging Radiology 11/30/2022 Office Visit Urology Denny Armando MD [address] [address] [place] [address] 12/13/2022 Office Visit Cardiology Nevaeh Linda PA-C [address] [place] [address] 12/15/2022 Office Visit Family Medicine Nicola Prado MD [address] [place] [address] [place] [address] 12/20/2022 Office Visit Dermatology Meron Aragon PA-C [address] [place] [address] [place] [address] 01/28/2023 Office Visit Nephrology Verito Jovel PA-C [facility] [address] 03/04/2023 Office Visit Gastroenterology Marielena Hall CRNP [address] [place] [address] 03/29/2023 Office Visit Cardiology Blair Hannah PA-C [address] [place] [address] 06/02/2023 Nurse Only Ancillary Nurse Neeraj [facility] [address] [place] [address] [place] [address] 10/12/2023 Office Visit Sleep Disorders Eulalia Milligan DO [address] [place] [address] 10/25/2023 Cardiac Studies Cardiology Keith Pickard [facility] [address] [place] [address] Scheduled Procedures Name Priority Associated Diagnoses Date/Ti me ESOPHAGOGASTRODUODENOSCOPY ( EGD), FLEXIBLE, TRANSORAL, DIAGNOSTIC Recall [place] esophagus COLONOSCOPY FLEXIBLE PROXIMAL DIAGNOSTIC Recall History of colon polyps Scheduled Referrals Name Type Priority Associated Diagnoses Orde r Schedule PHARMACIST MEDS THERAPY MGMT REFERRAL OP Referral Within 10 days (routine) Psoriasis Ordered: 11/17/2022 Health Maintenance Due Date Last Done Comments [...] this encounter Medical Devices Implanted Type Area Marine Mammal Trainer Device Identifier Shelf Expiration Date Model / Serial / Lot Sut Steel 6 [id number] - [id number] Implanted:Qty[place] 6 [place] 07[place]10[place] [facility] [place] Chest DO NOT USE 08/14/2012 [id number] / / [id number] documented as of this encounter Visit Diagnoses Diagnosis Psoriasis- Primary Other psoriasis H/O psoriasis Personal history of diseases of skin and subcutaneous tissue 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HCC) Psoriatic arthropathy documented in this encounter Additional Health Concerns Infection Onset Date Last Indicated Resolved Time C. difficile 11/05/2022 11/05/2022 documented as of this encounter Advance Directives Documents on File Type Date Recorded Patient Front Office Attendant Expl anation Power of Cath Laboratory Technician 06/26/2019 POWER OF A TTORNEY Advance [...] the patient have Health Care Power of Cath Laboratory Technician? No Code Status History Code Status [...] patient or by statute hierarchy) Care Teams [employer] Relationship Specialty Start Date End Date Nicola Prado MD [address] [place] [address] [place] [id number] PCP - General Family Medicine 06/19/21 documented as of this encounter
--- OUTSIDE RECORDS SUMMARY | 2023-02-03 20:22 | External Medical Summary | Summary of Care ---
Author Name Unknown Organization [facility] Address [address] [place] [address] Phone [phone] Care Team Providers Care Signaler Name Role Phone Nicola Prado MD Primary Care Provide r Reason for Visit * Reason Comments Medication Refill Encounter Details Date Type Department Care Team Description [facility] [address] [place] [id number] Kristen Das PA-C [address] [place], [place] [id number] 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HCC); H/O psoriasis Allergies Active Allergy Reactions Severity Noted Date Comments Hydromorphone High 09/20/2021 Other reaction(s): Nausea Other reaction(s): Nausea 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/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 Other reaction(s): AMS Other reaction(s): AMS Prasugrel 04/02/2016 bleeding Prednisone High 09/20/2021 Other reaction(s): INCREASE BLOOD SUGAR Other reaction(s): INCREASE BLOOD SUGAR documented as of this encounter (statuses as of 11/16/2022) Medications Medication Sig Dispensed Refills Start Date [...] less than 8.0% ([facility]) Test blood sugar up to five times daily; dx E11.9 450 Each 3 12/17/2021 Active OneTouch Ultra In Vitro Strip (Glucose Blood)Indications: Type 2 diabetes mellitus with hemoglobin A1c goal of less than 8.0% ([facility]) 3-4 times a day 450 Strip 3 12/17/2021 Active Xiidra 5 % Ophthalmic Solution instill 1 drop by ophthalmic route 2 times every day into both eyes. OK for 90 day supply. 0 01/05/2022 Active NovoLOG FlexPen 100 UNIT/ML Subcutaneous Solution Pen-injector (insulin aspart)Indications :Type 2 diabetes mellitus with hemoglobin A1c goal of less than 8.0% ([facility]) 12 units with breakfast and supper [...] Tablet 1 05/05/2022 Active Easy Touch Pen [place] 31G X 8 MM (Insulin Pen Needle)Indications :Type 2 diabetes mellitus with hemoglobin A1c goal of less than 8.0% ([facility]),Type 2 diabetes mellitus with stage 4 chronic kidney disease, unspecified whether care home insulin use ([facility]) Use up to six times daily with insulin. DXe11.9 600 Each 3 05/22/2022 Active Albuterol Sulfate HFA 108 (90 Base) MCG/ACT Inhalation Aerosol SolutionIndication s:COPD exacerbation ([facility]),Chronic cough Inhale by mouth 2 [...] with long-term current use of insulin ([facility]) Inject 1.8 mg under the [...] once a week. 4 mL 1 11/16/2022 Active Etanercept 50 MG/ML Subcutaneous Solution Auto-injector (Enbrel Sureclick)Indicati ons: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HCC),H/O psoriasis Inject 50 mg under the skin once a week. 4 mL 1 08/04/2022 3 Discontinue d(Refill) Hospital, Clinic, or Other [...] as of this encounter (statuses as of 11/16/2022) Active Problems Problem Noted Date Atherosclerosis of coronary artery bypass graft of [place] heart with angina pectoris 10/13/2022 Encounter for [...] urinary tr act symptoms 07/13/2001 Atherosclerosis of [place] co ronary artery of [place] heart without angina pectoris Morbid obesity with BMI of 40.0-44.9, ad ult documented as of this encounter (statuses as of 11/16/2022) Resolved Problems Problem Noted Date Resolved Date [...] MANAGEMENT 07/22/2008 0 Overview: Kianna Lyn, RN [phone] Examination following surgery 07/11/2008 Difficult intubation 07/10/2008 02/19/2020 Overview: Patient seen and examined in OR#1.Possible difficult intubation.TM distance about 5 cms.MP 3-4. Will plan FOB electively Due to current situation. EXAMINATION OF PARTICIPANT IN CLINICAL TRIAL-gen omics 07/04/2008 05/30/2009 Overview: Renamed Per Clinical Trials Billing Project. Study Titile: Genomic Markers for Patients with Cardiovascular Disease Project #[id number] PI: Miriam Roque MD Please call [phone] with study related questions Chronic coronary artery [...] at goal 07/04/2008 9 GENOMICS CARDIO RESEARCH OTHER*[id number] 200803/23/2016 Overview: Renamed Per Clinical Trials Billing Project. Study Titile: Genomic Markers for Patients with Cardiovascular Disease Project #[id number] PI: Miriam Roque MD Please call [phone] with study related questions Kidney disease, chronic, [...] as of this encounter (statuses as of 11/16/2022) Immunizations Name Administration Dates Next Due COVID-19 [...] encounter Miscellaneous Notes * Telephone Encounter - Mera Aragon PA-C - 11/16/2022 7:41 AM EDT Signed Prescriptions: Disp Refills Enbrel SureClick 50 MG/ML Subcutaneous Cheryl*4 mL 1 Sig: Inject 50 mg under the skin once a week. Authorizing Provider: MERA ARAGON * Telephone Encounter - Kristen Das PA-C - 11/12/2022 5:33 PM EDT Pending Prescriptions: Disp Refills Enbrel SureClick 50 MG/ML Subcutaneous Cheryl*4 mL 1 Sig: Inject 50 mg under the skin once a week. * Telephone Encounter - Kristen Das PA-C - 11/12/2022 5:33 PM EDT documented in this encounter Plan of Treatment Upcoming Encounters Date Type Specialty Care Team Description 11/17/2022 Telemedicine Dermatology Wb, Pharmacist Dermatology [facility]3] [address] [facility] [place] [address] 11/17/2022 Office Visit [address] [place] [address] 11/19/2022 Imaging Radiology 11/22/2022 Imaging Radiology 11/30/2022 Office Visit Urology Denny Armando MD [address] [place] [address] [place] [address] 12/13/2022 Office Visit Cardiology Nevaeh Linda PA-C [address] [place] [address] [place] [address] 12/15/2022 Office Visit Family Medicine Nicola Prado MD [address] [place] [address] [place] [address] 12/20/2022 Office Visit Dermatology Mera Aragon PA-C [address] [place] [address] [place] [address] 01/28/2023 Office Visit Nephrology Verito Jovel PA-C [address] [place] [address] 03/04/2023 Office Visit Gastroenterology Marielena Hall CRNP [address] [place] [address] 03/29/2023 Office Visit Cardiology Blair Hannah PA-C [address] [place] [address] 06/02/2023 Nurse Only Ancillary Nurse Neeraj [address] [place] [address] 10/12/2023 Office Visit Sleep Disorders Eulalia Milligan DO [address] [place] [address] 10/25/2023 Cardiac Studies Cardiology Keith Pickard [facility] [address] [place] [address] Scheduled Procedures Name Priority Associated Diagnoses Date/Ti [...] 10/2022, 10/22/2021, Additional history exists Albumin/Creatinine Ratio 04/23/20232 023, 03/24/2022, 06/19/2021, Additional history exists GFR [...] this encounter Medical Devices Implanted Type Area Lay Out Technician Device Identifier Shelf Expiration Date Model / Serial / Lot Sut Steel 6 [id number] - [id number] Implanted:Qty: 6 on 07/10/2008 at OR [facility] N/A: Chest DO NOT USE 08/14/2012 [id number] / / [id number] documented as of this encounter Visit Diagnoses Diagnosis 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HCC) Psoriatic arthropathy H/O psoriasis Personal history of diseases of skin and subcutaneous tissue documented in this encounter Additional Health Concerns Infection Onset Date Last Indicated Resolved Time C. difficile 11/05/2022 11/05/2022 documented as of this encounter Advance Directives Documents on File Type Date Recorded Patient Technical Buyer Expl anation Power of Channel Process Supervisor 06/26/2019 POWER OF A TTORNEY [...] the patient have Health Care Power of Channel Process Supervisor? No Code Status History Code [...] patient or by statute hierarchy) Care Teams Signaler Relationship Specialty Start Date End Date Nicola Prado MD [address] [place] [address] [place] [address] PCP - General Family Medicine 06/19/21 documented as of this encounter
--- OUTSIDE RECORDS SUMMARY | 2023-02-03 20:23 | External Medical Summary | Summary of Care ---
Author Name Unknown Organization [facility] Address [address] [place] [address] Phone [phone] Care Team Providers Care Traffic Signal Supervisor Maintenance Name Role Phone Nicola Prado MD Primary Care Provide r Reason for Visit * Reason Onset Date Comments Advice 11/15/2022 Encounter Details Date Type Department Care Team Description 11/15/2022 Telephone Nephrology [address] [place] [address] Services, Scheduling [address] [place] [address] Advice Allergies Active Allergy Reactions Severity Noted [...] Tablet 1 05/05/2022 Active Easy Touch Pen [place] 31G X 8 MM (Insulin Pen Needle)Indications:T ype 2 diabetes mellitus with hemoglobin A1c goal of less than 8.0% ([facility]),Type 2 diabetes mellitus with stage 4 chronic kidney disease, unspecified whether snf insulin use ([facility]) Use up [...] Solution Auto-injector (Enbrel Sureclick)Indication s: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[facility]),H/O psoriasis Inject 50 mg under [...] urinary tr act symptoms 07/13/2001 Atherosclerosis of [place] co ronary artery of [place] heart without angina pectoris Morbid obesity with [...] use aero chamber. Test performed by Dori DATA ENTRY ANALYST CPFT Body mass index (BMI) of 45.0 [...] MANAGEMENT 07/22/2008 0 Overview: Kianna Lyn, RN [phone] Examination following surgery 07/11/2008 Difficult intubation 07/10/2008 02/19/2020 Overview: Patient seen and examined in OR#1.Possible difficult intubation.TM distance about 5 cms.MP 3-4. Will plan FOB electively Due to current situation. EXAMINATION OF PARTICIPANT IN CLINICAL TRIAL-gen omics 07/04/2008 05/30/2009 Overview: Renamed Per Clinical Trials Billing Project. Study Titile: Genomic Markers for Patients with Cardiovascular Disease Project #[id number] PI: Miriam Roque MD Please call [phone] with study related questions Chronic coronary artery [...] at goal 07/04/2008 9 GENOMICS CARDIO RESEARCH OTHER*[id number] 200803/23/2016 Overview: Renamed Per Clinical Trials Billing Project. Study Titile: Genomic Markers for Patients with Cardiovascular Disease Project #[id number] PI: Miriam Roque MD Please call [phone] with study related questions Kidney disease, chronic, [...] mRNA, LNP-s, No Pre serve, 2-Dose Series (SPark!) 12/09/2020,05/09/2020,04/11/2020 COVID-19, LNP-s, No Preserve , Juan [...] Miscellaneous Notes * Telephone Encounter - KATHE Millard - 11/15/2022 11:21 AM EDT Have heart test done and Maurisio would like to know if the contrast will cause any issues to his kidneys if someone can please give him a call [phone] documented in this encounter Plan of Treatment Upcoming Encounters Date Type Specialty Care Team Description 11/17/2022 Telemedicine Dermatology Wb, Pharmacist Dermatology [facility] [address] [facility] [place] [address] 11/17/2022 Office Visit Pharmacy [address] [place] [address] 11/19/2022 Imaging Radiology 11/22/2022 Imaging Radiology 11/30/2022 Office Visit Urology Denny Armando MD [address] [facility] [address] [place] [address] 12/13/2022 Office Visit Cardiology Nevaeh Linda PA-C [address] [facility] [place] [address] 12/15/2022 Office Visit Family Medicine Nicola Prado MD [address] [place] [address] [place] [address] 12/20/2022 Office Visit Dermatology Meron Aragon PA-C [address] [place] [address] [place] [address] 01/28/2023 Office Visit Nephrology Verito Jovel [facility]-C [address] [facility] [address] 03/04/2023 Office Visit Gastroenterology Marielena Hall CRNP [address] [place] [address] 03/29/2023 Office Visit Cardiology Blair Hannah PA-C [address] [place] [address] 06/02/2023 Nurse Only Ancillary Nurse Neeraj [facility] [address] [place] [address] [place] [address] 10/12/2023 Office Visit Sleep Disorders Eulalia Milligan DO [address] [place] [address] 10/25/2023 Cardiac Studies Cardiology Keith Pickard [facility] [address] [place] [address] Scheduled Procedures Name Priority Associated Diagnoses Date/Ti [...] this encounter Medical Devices Implanted Type Area Hand Cutter Apprentice Device Identifier Shelf Expiration Date Model / Serial / Lot Sut Steel 6 [id number] - [id number] Implanted:Qty: 6 on 07/10/[address] [facility] N/A: Chest DO NOT USE 08/14/2012 [id number] / / [id number] documented as of this encounter Additional Health Concerns Infection Onset Date Last Indicated Resolved Time C. difficile 11/05/2022 11/05/2022 documented as of this encounter Advance Directives Documents on File Type Date Recorded Patient Radiological Equipment Specialist Expl anation Power of Waste Examiner 06/26/2019 POWER OF A TTORNEY Advance Directives [...] the patient have Health Care Power of Waste Examiner? No Code Status History Code Status Date [...] patient or by statute hierarchy) Care Teams Traffic Signal Supervisor Maintenance Relationship Specialty Start Date End Date Nicola Prado MD [address] [place] [address] [place] [address] PCP - General Family Medicine 06/19/21 documented as of this encounter
--- OUTSIDE RECORDS SUMMARY | 2023-02-03 20:23 | External Medical Summary | Summary of Care ---
Author Name Unknown Organization [facility] Address [address] [place] [address] Phone [phone] Care Team Providers Care Institutional Aide Name Role Phone Nicola Prado MD Primary Care Provide r Reason for Visit * Reason Onset Date Comments Advice 11/15/2022 Encounter Details Date Type Department Care Team Description 11/15/2022 Telephone Nephrology [address] [place] [address] Services, Scheduling [address] [place] [address] Advice Allergies Active Allergy Reactions Severity Noted [...] hemoglobin A1c goal of less than 8.0% ([facility]) Test blood sugar up to five [...] hemoglobin A1c goal of less than 8.0% ([facility]) 12 units with breakfast and supper [...] Tablet 1 05/05/2022 Active Easy Touch Pen [place] 31G X 8 MM (Insulin Pen Needle)Indications:T ype 2 diabetes mellitus with hemoglobin A1c goal of less than 8.0% ([facility]),Type 2 diabetes mellitus with stage 4 chronic kidney disease, unspecified whether halfway insulin use ([facility]) Use up to six times daily with insulin. DXe11.9 600 Each 3 05/22/2022 Active Albuterol Sulfate HFA 108 (90 Base) MCG/ACT Inhalation Aerosol SolutionIndications: COPD exacerbation ([facility]),Chronic cough Inhale by mouth 2 Puffs every 4 hours as needed for Cough or Shortness of Breath. Reports doesn't help 18 g 2 05/27/2022 Active Victoza 18 MG/3ML Subcutaneous Solution Pen-injector (Liraglutide)Indicat ions:Type 2 diabetes mellitus with hemoglobin A1c goal of less than 8.0% ([facility]),Type 2 diabetes mellitus with stage 4 chronic kidney disease, with long-term current use of insulin ([facility]) Inject 1.8 mg under the skin daily. 27 mL 3 07/23/2022 Active Furosemide 80 MG Oral Tablet (Lasix) Take 1 Tablet by mouth in the morning. 90 Tablet 1 08/05/2022 Active Etanercept 50 MG/ML Subcutaneous Solution Auto-injector (Enbrel Sureclick)Indication s: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[facility]),H/O psoriasis Inject 50 mg under the [...] Atherosclerosis of coronary artery bypass graft of [place] heart with angina pectoris 10/13/2022 Encounter for [...] urinary tr act symptoms 07/13/2001 Atherosclerosis of [place] co ronary artery of [place] heart without angina pectoris Morbid obesity with [...] use aero chamber. Test performed by Dori QUARTER SEAMER CPFT Body mass index (BMI) of 45.0 [...] ischemic attack) 02/04/2016 11/23/2017 Overview: [facility] Anemia of chronic renal failure 07/30/2015 [...] MANAGEMENT 07/22/2008 0 Overview: Kianna Lyn, RN [phone] Examination following surgery 07/11/2008 Difficult intubation 07/10/2008 02/19/2020 Overview: Patient seen and examined in OR#1.Possible difficult intubation.TM distance about 5 cms.MP 3-4. Will plan FOB electively Due to current situation. EXAMINATION OF PARTICIPANT IN CLINICAL TRIAL-gen omics 07/04/2008 05/30/2009 Overview: Renamed Per Clinical Trials Billing Project. Study Titile: Genomic Markers for Patients with Cardiovascular Disease Project #[id number] PI: Miriam Roque MD Please call [phone] with study related questions Chronic coronary artery [...] at goal 07/04/2008 9 GENOMICS CARDIO RESEARCH OTHER*[id number] 200803/23/2016 Overview: Renamed Per Clinical Trials Billing Project. Study Titile: Genomic Markers for Patients with Cardiovascular Disease Project #[id number] PI: Miriam Roque MD Please call [phone] with study related questions Kidney disease, chronic, [...] encounter Miscellaneous Notes * Telephone Encounter - Marguerite Peoples LPN - 11/15/2022 1:15 PM EDT Per review: Nuclear stress test scheduled 11-19 and 11-22-22. Please advise. * Telephone Encounter - KATHE Millard - 11/15/2022 11:21 AM EDT Have heart test done and Maurisio would like to know if the contrast will cause any issues to his kidneys if someone can please give him a call [phone] documented in this encounter Plan of Treatment Upcoming Encounters Date Type Specialty Care Team Description 11/17/2022 Telemedicine Dermatology W[facility] [address] [facility] [place] [address] 11/17/2022 Office Visit Pharmacy [address] [place] [address] 11/19/2022 Imaging Radiology 11/22/2022 Imaging Radiology 11/30/2022 Office Visit Urology Denny Armando MD [address] [place] [address] [place] [address] 12/13/2022 Office Visit Cardiology [facility] [place] [address] 12/15/2022 Office Visit Family Medicine Nicola Prado MD [address] [place] [address] [place] [address] 12/20/2022 Office Visit Dermatology Meron Aragon PA-C [address] [place] [address] [place] [address] 01/28/2023 [facility] [address] 03/04/2023 Office Visit Gastroenterology Marielena Hall CRNP [address] [place] [address] 03/29/2023 Office Visit Cardiology Blair Hannah PA-C [address] [place] [address] 06/02/2023 Nurse Only Ancillary Nurse Neeraj [facility] [address] [place] [address] [place] [address] 10/12/2023 Office Visit Sleep Disorders Eulalia Milligan DO [address] [place] [address] 10/25/2023 Cardiac Studies Cardiology Keith Pickard [facility] [address] [place] [address] Scheduled Procedures Name Priority Associated Diagnoses Date/Ti [...] this encounter Medical Devices Implanted Type Area Anesthesiologist Attending Device Identifier Shelf Expiration Date Model / Serial / Lot Lei Agrawal 6 [id number] - [id number] Implanted:Qty: 6 on 07/10/2008 at [place] [facility] N/A: Chest DO NOT USE 08/14/2012 [id number] / / [id number] documented as of this encounter Additional Health Concerns Infection Onset Date Last Indicated Resolved Time C. difficile 11/05/2022 11/05/2022 documented as of this encounter Advance Directives Documents on File Type Date Recorded Patient Mat Cutter Expl anation Power of Press Feeder 06/26/2019 POWER OF A TTORNEY Advance [...] the patient have Health Care Power of Press Feeder? No Code Status History Code Status [...] patient or by statute hierarchy) Care Teams Institutional Aide Relationship Specialty Start Date End Date Nicola Prado MD [address] [place] [address] [place] [address] PCP - General Family Medicine 06/19/21 documented as of this encounter
--- OUTSIDE RECORDS SUMMARY | 2023-02-03 20:23 | External Medical Summary | Summary of Care ---
Author Name Unknown Organization [facility] Address [address] [place] [address] Phone [phone] Care Team Providers Care Machine Pie Maker Name Role Phone Nicola Prado MD Primary Care Provide r Reason for Visit * Reason Onset Date Comments Appointment 10/12/2022 Re-eval meds. Encounter Details Date Type Department Care Team Description 10/12/2022 Telephone Cardiology, [facility] [address] [place] [address] Blair Hannah PA-C [address] [place] [address] Appointment (Re-eval meds.) Allergies Active Allergy Reactions Severity Noted Date [...] End Date Status ASPIRIN 81 MG PO CHEWIndications: Unstable angina (HCC),Chronic coronary artery disease,Difficul t intubation 1 Tab Oral Daily 1 0 [...] 0 Active Folic Acid 1 MG Oral TabletIndication s:Iron deficiency anemia due to chronic blood loss,Folic acid deficiency,B12 deficiency Take 1 TabLET by mouth daily. 30 Tablet 11 2 Active Betamethasone Dipropionate 0.05 % External OintmentIndicati ons:Plaque psoriasis,Asteat otic eczema Apply 2x daily to rash on [...] Active Triamcinolone Acetonide 0.1 % External Ointment (Aristocort)Kimberly cations:Plaque psoriasis Apply to rash on trunk/arms/legs 2x daily (when thinner and less noticeable and less bothersome) until resolved, then when flaring 454 g 1 2 Active Allopurinol 300 MG Oral Tablet (Zyloprim) Take 1 Tablet by mouth daily. 90 Tablet 3 2 Active OneTouch UltraSoft LancetsIndicatio ns:Type 2 diabetes mellitus with hemoglobin A1c goal of less than 8.0% (HCC) Test blood sugar up to five times daily; dx E11.9 450 Each 3 2 Active OneTouch Ultra In Vitro Strip (Glucose Blood)Indication s:Type 2 diabetes mellitus with hemoglobin A1c goal of less than 8.0% ([facility]) 3-4 times a day 450 Strip 3 2 Active Xiidra 5 % Ophthalmic Solution instill 1 drop by ophthalmic route 2 times every day into both eyes. OK for 90 day supply. 0 2 Active NovoLOG FlexPen 100 UNIT/ML Subcutaneous Solution Pen-injector (insulin aspart)Indicatio ns:Type 2 diabetes mellitus with hemoglobin A1c goal of less than 8.0% ([facility]) 12 units with breakfast and supper PLUS correction factor of 1:25 if over 140 mg/dL 110 mL 3 3 Active Tamsulosin HCl 0.4 MG Oral Capsule (Flomax)Indicati ons:Lower urinary tract symptoms Take 1 Capsule by mouth in the morning. 90 Capsule 3 3 Active Nitroglycerin 0.4 MG Sublingual Tablet Sublingual (Nitrostat) 1 every 5 minutes as needed with chest pain up to 3 doses in 15 minutes 25 Tablet 1 3 Active Easy Touch Pen [place] 31G X 8 MM (Insulin Pen Needle)Indicatio ns:Type 2 diabetes mellitus with hemoglobin A1c goal of less than 8.0% ([facility]),Type 2 diabetes mellitus with stage 4 chronic kidney disease, unspecified whether terminal carman insulin use ([facility]) Use up to six times daily with insulin. DXe11.9 600 Each 3 3 Active Albuterol Sulfate HFA 108 (90 Base) MCG/ACT Inhalation Aerosol SolutionIndicati ons:COPD exacerbation ([facility]),Chronic cough Inhale by mouth 2 Puffs every 4 hours as needed for Cough or Shortness of Breath. Reports doesn't help 18 g 2 3 Active Victoza 18 MG/3ML Subcutaneous Solution Pen-injector (Liraglutide)Ind ications:Type 2 diabetes mellitus with hemoglobin A1c goal of less than 8.0% ([facility]),Type 2 diabetes mellitus with stage 4 chronic kidney disease, with long-term current use of insulin ([facility]) Inject 1.8 mg under the skin daily. 27 mL 3 3 Active Furosemide 80 MG Oral Tablet (Lasix) Take 1 Tablet by mouth in the morning. 90 Tablet 1 3 Active Etanercept 50 MG/ML Subcutaneous Solution Auto-injector (Enbrel Sureclick)Indica tions:Polyarticu lar psoriatic arthritis (HCC),H/O psoriasis Inject 50 mg under the skin once a week. 4 mL 1 3 Active BD TB Syringe 27G X 1/2" 1 ML (Tuberculin Syringe) Use twice daily to inject octreotide 180 Each 1 3 Active Isosorbide Mononitrate ER 30 MG Oral Tablet Extended Release 24 Hour (Imdur) Take 2 Tablets by mouth in the morning. In the morning.. 180 Tablet 3 3 Active Tresiba FlexTouch 200 UNIT/ML Subcutaneous Solution Pen-injector (Insulin Degludec)Indicat ions:Type 2 diabetes mellitus with hemoglobin A1c goal of less than 8.0% ([facility]) Inject 110 Units under the skin in the morning. 63 mL 3 3 10/26/19 23 Discontinued Omeprazole 20 MG Oral Capsule Delayed Release (PriLOSEC) Take 1 Capsule BY MOUTH in the morning AND 1 Capsule before bedtime. 60 Capsule 5 3 11/05/19 23 Discontinued Octreotide Acetate 50 MCG/ML Injection Solution (Sandostatin) Inject 50mcg under the skin in the morning and the evening 180 mL 1 3 11/02/19 23 Discontinued(Ref ill) Hospital, Clinic, or Other [...] Atherosclerosis of coronary artery bypass graft of [place] heart with angina pectoris 10/13/2022 Encounter for [...] urinary tr act symptoms 07/13/2001 Atherosclerosis of [place] ronary artery of [place] heart without angina pectoris Morbid obesity with [...] use aero chamber. Test performed by Dori LINEN MANAGER CPFT Body mass index (BMI) of 45.0 [...] (transient ischemic attack) 02/04/2016 11/23/2017 Overview: [facility] Anemia of chronic renal failure 07/30/2015 01/27/2017 [...] 07/22/2008 0 Overview: Kianna Lyn RN [phone] Examination following surgery 07/11/2008 Difficult intubation 07/10/2008 02/19/2020 Overview: Patient seen and examined in OR#1.Possible difficult intubation.TM distance about 5 cms.MP 3-4. Will plan FOB electively Due to current situation. EXAMINATION OF PARTICIPANT IN CLINICAL TRIAL-gen omics 07/04/2008 05/30/2009 Overview: Renamed Per Clinical Trials Billing Project. Study Titile: Genomic Markers for Patients with Cardiovascular Disease Project #[id number] PI: Miriam Roque MD Please call [phone] with study related questions Chronic coronary artery [...] at goal 07/04/2008 9 GENOMICS CARDIO RESEARCH OTHER*[id number] 200803/23/2016 Overview: Renamed Per Clinical Trials Billing Project. Study Titile: Genomic Markers for Patients with Cardiovascular Disease Project #[id number] PI: Miriam Roque MD Please call [phone] with study related questions Kidney disease, chronic, [...] Miscellaneous Notes * Telephone Encounter - KATHE Crawley - 10/20/2022 12:20 PM EDT Spoke with pt. Pt is scheduled 10/28/22 with Nevaeh. * Telephone Encounter - Rosa Gold - 10/12/2022 4:[address] Narvaez spoke with Mr. Hannah about have pt scheduled for a re-eval in 2- 4 weeks. Pt is going to the beach until [place]13. If you could please schedule him for an appt with Blair as soon as he comes back. documented in this encounter Plan of Treatment Upcoming Encounters Date Type Specialty Care Team Description 11/17/2022 Telemedicine Dermatology Wb, Pharmacist Dermatology [facility] [address] [place] [address] 11/17/2022 Office Visit Pharmacy [address] [place] [address] 11/19/2022 Imaging Radiology 11/22/2022 Imaging Radiology 11/30/2022 Office Visit Urology Denny Armando MD [address] [address] [place] [address] 12/13/2022 Office Visit Cardiology Nevaeh Linda PA-C [address] [place] [address] 12/15/2022 Office Visit Family Medicine Nicola Prado MD [address] [place] [address] [place] [address] 12/20/2022 Office Visit Dermatology Meron Aragon PA-C [address] [place] [address] [place] [address] 01/28/2023 [facility] [address] 03/04/2023 Office Visit Gastroenterology Marielena Hall CRNP [address] [place] [address] 03/29/2023 Office Visit Cardiology Blair Hannah PA-C [address] [place] [address] 06/02/2023 Nurse Only Ancillary Nurse [facility] [address] [place] [address] [place] [address] 10/12/2023 Office Visit Sleep Disorders Eulalia Milligan DO [address] [place] [address] 10/25/2023 Cardiac Studies Cardiology Keith Pickard [facility] [address] [place] [address] Scheduled Procedures Name Priority Associated Diagnoses Date/Ti [...] this encounter Medical Devices Implanted Type Area Pizza Delivery Device Identifier Shelf Expiration Date Model / Serial / Lot Sut Nhgia 6 [id number] - [id number] Implanted:Qty: 6 on 07/10/2008 at OR [facility] N/A: Chest DO NOT USE 08/14/2012 [id number] / / [id number] documented as of this encounter Additional Health Concerns Infection Onset Date Last Indicated Resolved Time C. difficile Rule-Out 11/05/2022 11/05/20222022 10:17 PM EDT C. difficile 11/05/2022 11/05/2022 documented as of this encounter Advance Directives Documents on File Type Date Recorded Patient Registrar Assistant Expl anation Power of Sample Mounter 06/26/2019 POWER OF A TTORNEY Advance Directives [...] patient have Health Care Power of Sample Mounter? No Code Status History Code Status Date [...] patient or by statute hierarchy) Care Teams Machine Pie Maker Relationship Specialty Start Date End Date Nicola Prado MD [address] [place] [address] [place] [address] PCP - General Family Medicine 06/19/21 documented as of this encounter
--- OUTSIDE RECORDS SUMMARY | 2023-02-03 20:23 | External Medical Summary | Summary of Care ---
Author Name Unknown Organization [facility] Address [address] [place] [address] Phone [phone] Care Team Providers Care Commercial Intern Name Role Phone Nicola Prado MD Primary Care Provide r Reason for Visit * Reason Onset Date Comments case management 11/15/2022 FYI Advice 11/15/2022 Encounter Details Date Type Department Care Team Description 11/15/2022 Manager Product Management Telephone [address] [phone] Christel Garcia RN [address] [place] [address] case management (FYI); Advice Allergies Active Allergy Reactions Severity Noted [...] 8.0% ([facility]) 3-4 times a day 450 Strip 3 12/17/2021 Active Xiidra 5 % Ophthalmic Solution instill 1 drop by ophthalmic route 2 times every day into both eyes. OK for 90 day supply. 0 01/05/2022 Active NovoLOG FlexPen 100 UNIT/ML Subcutaneous Solution Pen-injector (insulin aspart)Indications:T ype 2 diabetes mellitus with hemoglobin A1c goal of less than 8.0% ([facility]) 12 units with breakfast and supper PLUS [...] Tablet 1 05/05/2022 Active Easy Touch Pen [place] 31G X 8 MM (Insulin Pen Needle)Indications:T ype 2 diabetes mellitus with hemoglobin A1c goal of less than 8.0% ([facility]),Type 2 diabetes mellitus with stage 4 chronic kidney disease, unspecified whether nursing home insulin use ([facility]) Use up to six times daily with [...] current use of insulin ([facility]) Inject 1.8 mg under the skin daily. 27 mL 3 07/23/2022 Active Furosemide 80 MG Oral Tablet (Lasix) Take 1 Tablet by mouth in the morning. 90 Tablet 1 08/05/2022 Active Etanercept 50 MG/ML Subcutaneous Solution Auto-injector (Enbrel Sureclick)Indication s: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HCC),H/O psoriasis Inject 50 mg [...] Atherosclerosis of coronary artery bypass graft of [place] heart with angina pectoris 10/13/2022 Encounter for [...] urinary tr act symptoms 07/13/2001 Atherosclerosis of [place] ronary artery of [place] heart without angina pectoris Morbid obesity with [...] use aero chamber. Test performed by Dori HIDES SOAKER CPFT Body mass index (BMI) of 45.0 [...] TIA (transient ischemic attack) 02/04/2016 11/23/2017 Overview: [facility] Anemia of chronic renal failure [...] 07/22/2008 0 Overview: Kianna Lyn RN [phone] Examination following surgery 07/11/2008 Difficult intubation 07/10/2008 02/19/2020 Overview: Patient seen and examined in OR#1.Possible difficult intubation.TM distance about 5 cms.MP 3-4. Will plan FOB electively Due to current situation. EXAMINATION OF PARTICIPANT IN CLINICAL TRIAL-gen omics 07/04/2008 05/30/2009 Overview: Renamed Per Clinical Trials Billing Project. Study Titile: Genomic Markers for Patients with Cardiovascular Disease Project #[id number] PI: Miriam Roque MD Please call [phone] with study related questions Chronic coronary artery [...] at goal 07/04/2008 9 GENOMICS CARDIO RESEARCH OTHER*[id number] 200803/23/2016 Overview: Renamed Per Clinical Trials Billing Project. Study Titile: Genomic Markers for Patients with Cardiovascular Disease Project #[id number] PI: Miriam Roque MD Please call [phone] with study related questions Kidney disease, chronic, [...] mRNA, LNP-s, No Pre serve, 2-Dose Series (Datam) 12/09/2020,05/09/2020,04/11/2020 COVID-19, LNP-s, No Preserve , Juan [...] Telephone Encounter - Nicola Prado MD - 11/15/2022 1:12 PM EDT No change in clinical plan - continue current plan * Telephone Encounter - Christel Garcia RN - 11/15/2022 12:25 PM EDT Called patient in follow up to recent dx of C-diff, and initiation of Vancomycin (oral). Called and spoke with patient. Alert, oriented, pleasant. When asked about his bowels... -reports as "up and down", sometimes soft, sometimes loose. -only moving bowels 1 x day Reports that as "getting better", but complains that the diverticulitis is still giving him stomachpain. -reports as in the "middle" of his abdomen Discussed diverticulitis diet -patient reports he is not eating any raw fruits or vegetables, no nuts, no popcorn or corn Thinks he has about "3 more days" of antibiotics -reports he opened a new pack this morning Decreased intake. -reports he gets hungry, but then when goes to eat, just can't. He was away all week last week, and didn't hardly eat anything. Weight is down approximately 10 lbs in the past 2 weeks. -he did not weight this morning, but was 245 lbs yesterday, naked. "Everything else is alright." Please advise..... documented in this encounter Plan of Treatment Upcoming Encounters Date Type Specialty Care Team Description 11/17/2022 Telemedicine Dermatology Wb, Pharmacist Dermatology [facility] [address] [facility] [place] [address] 11/17/2022 Office Visit Pharmacy [address] [place] [address] 11/19/2022 Imaging Radiology 11/22/2022 Imaging Radiology 11/30/2022 Office Visit Urology Denny Armando MD [address] [address] [place] [address] 12/13/2022 Office Visit Cardiology Nevaeh Linda PA-C [address] [facility] [place] [address] 12/15/2022 Office Visit Family Medicine Nicola Prado MD [address] [place] [address] [place] [address] 12/20/2022 Office Visit Dermatology Meron Aragon PA-C [address] [place] [address] [place] [address] 01/28/2023 [facility]phrology [facility] [address] 03/04/2023 Office Visit Gastroenterology Marielena Hall CRNP [address] [facility] [place] [address] 03/29/2023 Office Visit Cardiology Blair Hannah PA-C [address] [place] [address] 06/02/2023 Nurse Only Ancillary Nurse [facility] [address] [place] [address] [place] [address] 10/12/2023 Office Visit Sleep Disorders Eulalia Milligan DO [address] [place] [address] 10/25/2023 Cardiac Studies Cardiology Keith Pickard [facility] [address] [place] [address] Scheduled Procedures Name Priority Associated Diagnoses Date/Ti [...] this encounter Medical Devices Implanted Type Area V Groove Cutter Device Identifier Shelf Expiration Date Model / Serial / Lot Sut Steel 6 [id number] - [id number] Implanted:Qty: 6 on 07/10/2008 [place] [facility] [place]: Chest DO NOT USE 08/14/2012 [id number] / / [id number] documented as of this encounter Additional Health Concerns Infection Onset Date Last Indicated Resolved Time C. difficile 11/05/2022 11/05/2022 documented as of this encounter Advance Directives Documents on File Type Date Recorded Patient Application Tester Expl anation Power of Performance Management Consultant 06/26/2019 POWER OF A TTORNEY Advance [...] the patient have Health Care Power of Performance Management Consultant? No Code Status History Code Status [...] patient or by statute hierarchy) Care Teams Commercial Intern Relationship Specialty Start Date End Date Nicola Prado MD [address] [place] [address] [place] [address] PCP - General Family Medicine 06/19/21 documented as of this encounter
--- OUTSIDE RECORDS SUMMARY | 2023-02-03 20:24 | External Medical Summary | Summary of Care ---
Author Name Unknown Organization [facility] Address [address] [place] [address] Phone [phone] Care Team Providers Care Cook Taco Name Role Phone Nicola Prado MD Primary Care Provide r Encounter Details Date Type Department Care Team Description 11/12/2022 Specialty Pharmacy [facility], [address] [address] Medication, [facility], [address] [address] Allergies Active Allergy Reactions Severity Noted Date Comments Hydromorphone High 09/20/2021 Other reaction(s): Nausea Other reaction(s): Nausea 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/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 Other reaction(s): AMS Other reaction(s): AMS Prasugrel 04/02/2016 bleeding Prednisone High 09/20/2021 Other reaction(s): INCREASE BLOOD SUGAR Other reaction(s): INCREASE BLOOD SUGAR documented as of this encounter (statuses as of 11/12/2022) Medications Medication Sig Dispensed Refills Start Date [...] 90 Tablet 3 12/16/2021 Active OneTouch UltraSoft LancetsIndications: Type 2 diabetes mellitus with hemoglobin A1c goal of less than 8.0% ([facility]) Test blood sugar up to five times daily; dx E11.9 450 Each 3 12/17/2021 Active OneTouch Ultra In Vitro Strip (Glucose Blood)Indications:T ype 2 diabetes mellitus with hemoglobin A1c goal of less than 8.0% ([facility]) 3-4 times a day 450 Strip 3 12/17/2021 Active Xiidra 5 % Ophthalmic Solution instill 1 drop by ophthalmic route 2 times every day into both eyes. OK for 90 day supply. 0 01/05/2022 Active NovoLOG FlexPen 100 UNIT/ML Subcutaneous Solution Pen-injector (insulin aspart)Indications: Type 2 diabetes mellitus with hemoglobin A1c goal of less than 8.0% ([facility]) 12 units with breakfast and supper [...] Tablet 1 05/05/2022 Active Easy Touch Pen [place] 31G X 8 MM (Insulin Pen Needle)Indications: Type 2 diabetes mellitus with hemoglobin A1c goal of less than 8.0% ([facility]),Type 2 diabetes mellitus with stage 4 chronic kidney disease, unspecified whether fitter armament insulin use ([facility]) Use up to six times daily with insulin. DXe11.9 600 Each 3 05/22/2022 Active Albuterol Sulfate HFA 108 (90 Base) MCG/ACT Inhalation Aerosol SolutionIndications :COPD exacerbation ([facility]),Chronic cough Inhale by mouth 2 Puffs every [...] Etanercept 50 MG/ML Subcutaneous Solution Auto-injector (Enbrel Sureclick)Indicatio ns: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[facility]),H/O psoriasis Inject 50 mg under the skin [...] Extended Release 12 Hour (Mucinex)Indication s:COPD exacerbation ([facility]) Take 1 [...] before bedtime. 60 Capsule 3 11/04/2022 Active Ciprofloxacin HCl 500 MG Oral Tablet (Cipro)Indications: Diarrhea, unspecified type Take 1 Tablet by mouth in the morning and 1 Tablet before bedtime. Do all this for 10 days. 20 Tablet 0 11/03/2022 11/13/2022 Active Vancomycin HCl 125 MG Oral Capsule [...] as of this encounter (statuses as of 11/12/2022) Active Problems Problem Noted Date Atherosclerosis of coronary artery bypass graft of [place] heart with angina pectoris 10/13/2022 Encounter for [...] urinary tr act symptoms 07/13/2001 Atherosclerosis of [place] ronary artery of [place] heart without angina pectoris Morbid obesity with BMI of 40.0-44.9, ad ult documented as of this encounter (statuses as of 11/12/2022) Resolved Problems Problem Noted Date Resolved Date [...] use aero chamber. Test performed by Dori GEOPHYSICAL OBSERVER CPFT Body mass index (BMI) of 45.0 [...] MANAGEMENT 07/22/2008 0 Overview: Kianna Lyn RN [phone] Examination following surgery 07/11/2008 Difficult intubation 07/10/2008 02/19/2020 Overview: Patient seen and examined in OR#1.Possible difficult intubation.TM distance about 5 cms.MP 3-4. Will plan FOB electively Due to current situation. EXAMINATION OF PARTICIPANT IN CLINICAL TRIAL-gen omics 07/04/2008 05/30/2009 Overview: Renamed Per Clinical Trials Billing Project. Study Titile: Genomic Markers for Patients with Cardiovascular Disease Project #[id number] PI: Miriam Roque MD Please call [phone] with study related questions Chronic coronary artery [...] at goal 07/04/2008 9 GENOMICS CARDIO RESEARCH OTHER*[id number] 200803/23/2016 Overview: Renamed Per Clinical Trials Billing Project. Study Titile: Genomic Markers for Patients with Cardiovascular Disease Project #[id number] PI: Miriam Roque MD Please call [phone] with study related questions Kidney disease, chronic, [...] as of this encounter (statuses as of 11/12/2022) Immunizations Name Administration Dates Next Due COVID-19 mRNA, LNP-s, No Pre serve, 2-Dose Series (Homeforswap) 12/09/2020,05/09/2020,04/11/2020 COVID-19, LNP-s, No Preserve , Juan [...] as of this encounter Progress Notes * Isabel Hay CPhT - 11/12/2022 1:41 PM EDT Prescribed medication: Medication: enbrel Shipment date: 11/17 pending refills Delivery method: Specialty Mail Location Medication Delivered too? Prescription Address: [address] [place] [id number] Isabel Hay CPhT [facility] 11/12/2022,1:41 PM documented in this encounter Plan of Treatment Upcoming Encounters Date Type Specialty Care Team Description 11/17/2022 Telemedicine Dermatology Wb, Pharmacist Dermatology [facility] [address] [facility] [place] [address] 11/17/2022 Office Visit Pharmacy [address] [place] [address] 11/19/2022 Imaging Radiology 11/22/2022 Imaging Radiology 11/30/2022 Office Visit Urology Denny Armando MD [address] [place] [address] 12/13/2022 Office Visit Cardiology Nevaeh Linda PA-C [address] [place] [address] 12/15/2022 Office Visit Family Medicine Nicola Prado MD [address] [place] [address] [place] [address] 12/20/2022 Office Visit Dermatology Meron Aragon PA-C [address] [place] [address] [place] [address] 01/28/2023 [facility] [address] 03/04/2023 Office Visit Gastroenterology Marielena Hall CRNP [address] [place] [address] 03/29/2023 Office Visit Cardiology Blair Hannah PA-C [address] [place] [address] 06/02/2023 Nurse Only Ancillary Nurse Neeraj [address] [place] [address] 10/12/2023 Office Visit Sleep Disorders Eulalia Milligan DO [address] [place] [address] 10/25/2023 Cardiac Studies Cardiology [facility] [address] [place] [address] Scheduled Procedures Name Priority Associated Diagnoses Date/Ti [...] this encounter Medical Devices Implanted Type Area Transmission Builder Device Identifier Shelf Expiration Date Model / Serial / Lot Sut Steel 6 [id number] - [id number] Implanted:Qty: 6 on 07/10/2008 at OR [facility] [place] [facility] N/A: Chest DO NOT USE 08/14/2012 [id number] / / [id number] documented as of this encounter Additional Health Concerns Infection Onset Date Last Indicated Resolved Time C. difficile 11/05/2022 11/05/2022 documented as of this encounter Advance Directives Documents on File Type Date Recorded Patient Manager Hospitality Expl anation Power of Golf Course Assistant 06/26/2019 POWER OF A TTORNEY Advance [...] the patient have Health Care Power of Golf Course Assistant? No Code Status History Code Status [...] patient or by statute hierarchy) Care Teams Cook Taco Relationship Specialty Start Date End Date Nicola Prado MD [address] [place] [address] [place] [address] PCP - General Family Medicine 06/19/21 documented as of this encounter
--- OUTSIDE RECORDS SUMMARY | 2023-02-03 20:24 | External Medical Summary | Summary of Care ---
Author Name Unknown Organization [facility] Address [address] [place] [address] Phone [phone] Care Team Providers Care Supervisor Assembly And Packing Name Role Phone Nicola Prado MD Primary Care Provide r Reason for Visit * Reason Onset Date Comments Precert Denied 11/01/2022 Encounter Details Date Type Department Care Team Description 11/01/2022 Telephone Gastroenterology, [facility] [address] [place] [address] Marielena Hall CRNP [address] [place] [address] Precert Denied Allergies Active Allergy Reactions Severity Noted Date Comments Hydromorphone High 09/20/2021 Other reaction(s): Nausea Other reaction(s): Nausea 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/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 Other reaction(s): AMS Other reaction(s): AMS Prasugrel 04/02/2016 bleeding Prednisone High 09/20/2021 Other reaction(s): INCREASE BLOOD SUGAR Other reaction(s): INCREASE BLOOD SUGAR documented as of this encounter (statuses as of 11/08/2022) Medications Medication Sig Dispensed Refills Start Date [...] goal of less than 8.0% ([facility]) Test blood sugar up to five times daily; dx E11.9 450 Each 3 2 Active OneTouch Ultra In Vitro Strip (Glucose Blood)Indications :Type 2 diabetes mellitus with hemoglobin A1c goal of less than 8.0% ([facility]) 3-4 times a day 450 Strip 3 2 Active Xiidra 5 % Ophthalmic Solution instill 1 drop by ophthalmic route 2 times every day into both eyes. OK for 90 day supply. 0 2 Active NovoLOG FlexPen 100 UNIT/ML Subcutaneous Solution Pen-injector (insulin aspart)Indication s:Type 2 diabetes mellitus with hemoglobin A1c goal of less than 8.0% ([facility]) 12 units with breakfast and [...] Tablet 1 3 Active Easy Touch Pen [place] 31G X 8 MM (Insulin Pen Needle)Indication s:Type 2 diabetes mellitus with hemoglobin A1c goal of less than 8.0% ([facility]),Type 2 diabetes mellitus with stage 4 chronic kidney disease, unspecified whether intermediate insulin use (HCC) Use up to six times daily with insulin. DXe11.9 600 Each 3 3 Active Albuterol Sulfate HFA 108 (90 Base) MCG/ACT Inhalation Aerosol SolutionIndicatio ns:COPD exacerbation ([facility]),Chronic cough Inhale by mouth 2 Puffs every 4 hours as needed for Cough or Shortness of Breath. Reports doesn't help 18 g 2 3 Active Victoza 18 MG/3ML Subcutaneous Solution Pen-injector (Liraglutide)Kimberly cations:Type 2 diabetes mellitus with hemoglobin A1c goal of less than 8.0% ([facility]),Type 2 diabetes mellitus with stage 4 chronic kidney disease, with long-term current use of insulin ([facility]) Inject 1.8 mg under the [...] the morning.. 180 Tablet 3 3 Active Atorvastatin Calcium 80 MG Oral Tablet (Lipitor)Indicati ons:Dyslipidemia, goal LDL below 70 Take 1 Tablet by mouth daily. 90 Tablet 0 3 Active guaiFENesin ER 600 MG Oral Tablet Extended Release 12 Hour (Mucinex)Indicati ons:COPD exacerbation ([facility]) Take 1 Tablet by mouth 2 times a day as needed for Congestion. Take with plenty of water. Do not cut, crush or chew 40 Tablet 0 3 Active Tresiba FlexTouch 200 UNIT/ML Subcutaneous Solution Pen-injector (Insulin Degludec)Indicati ons:Type 2 diabetes mellitus with hemoglobin A1c goal of less than 8.0% ([facility]) Inject 100 Units under the skin daily. 90 mL 3 3 Active Octreotide Acetate 10 MG Intramuscular Kit (SandoSTATIN [place]) Inject 10 mg into a large muscle every month. 1 Kit 12 3 Active Omeprazole 20 MG Oral Capsule Delayed Release (PriLOSEC) Take 1 Capsule BY MOUTH in the morning AND 1 Capsule before bedtime. 60 Capsule 5 3 11/05/19 23 Discontinued Octreotide Acetate 50 MCG/ML Injection Solution (Sandostatin) Inject 50mcg under the skin in the morning and the evening 180 mL 1 3 11/02/19 23 Discontinued(Re fill) Hospital, Clinic, or Other Facility Administered Medication [...] as of this encounter (statuses as of 11/08/2022) Active Problems Problem Noted Date Atherosclerosis of coronary artery bypass graft of [place] heart with angina pectoris 10/13/2022 Encounter for [...] urinary tr act symptoms 07/13/2001 Atherosclerosis of [place] co ronary artery of [place] heart without angina pectoris Morbid obesity with BMI of 40.0-44.9, ad ult documented as of this encounter (statuses as of 11/08/2022) Resolved Problems Problem Noted Date Resolved Date [...] use aero chamber. Test performed by Dori CRABBER CPFT Body mass index (BMI) of 45.0 [...] TIA (transient ischemic attack) 02/04/2016 11/23/2017 Overview: [facility] Anemia of chronic renal failure [...] 07/22/2008 0 Overview: Kianna Lyn RN [phone] Examination following surgery 07/11/2008 Difficult intubation 07/10/2008 02/19/2020 Overview: Patient seen and examined in OR#1.Possible difficult intubation.TM distance about 5 cms.MP 3-4. Will plan FOB electively Due to current situation. EXAMINATION OF PARTICIPANT IN CLINICAL TRIAL-gen omics 07/04/2008 05/30/2009 Overview: Renamed Per Clinical Trials Billing Project. Study Titile: Genomic Markers for Patients with Cardiovascular Disease Project #[id number] PI: Miriam Roque MD Please call [phone] with study related questions Chronic coronary artery [...] at goal 07/04/2008 9 GENOMICS CARDIO RESEARCH OTHER*[id number] 200803/23/2016 Overview: Renamed Per Clinical Trials Billing Project. Study Titile: Genomic Markers for Patients with Cardiovascular Disease Project #[id number] PI: Miriam Roque MD Please call [phone] with study related questions Kidney disease, chronic, [...] as of this encounter (statuses as of 11/08/2022) Immunizations Name Administration Dates Next Due COVID-19 mRNA, LNP-s, No Pre serve, 2-Dose Series (Moxtra) 12/09/2020,05/09/2020,04/11/2020 COVID-19, LNP-s, No Preserve , Juan Manuel-sucrose, Ages 12+ (Pfizer) 06/04/2021 H1N1 2009 Influenza, IM 01/04/2009 MMR - Measles/Mumps/Rubella Vaccine 08/01/1996 Pneumococcal Conjugate Vacc, 13 Valent (Prevnar) 02/22/2014 Pneumococcal Conjugate Vacci ne, 7 Valent 11/20/2002 Pneumococcal Polysaccharide PPV23 (Pneumovax) 04/30/2008 Season Influenza, Quad, PF, Adjuvanted, 65+ Yrs, IM (FLUAD) 10/23/2019 Seasonal Influenza, PF, 6 mo ns & Above, IM , (Flulaval) 11/23/2017,11/04/2016 11/04/2017 Seasonal Influenza, Quadriva lent Hd [...] * Telephone Encounter - FRANCHESKA Collins - 11/08/2022 12:24 PM EDT Received a TigerText from Miguel Gaytan ([facility] phlebotomist medical lab assistant) to request that we withdraw this prior auth request. Nurses, can you pls assist with this? FRANCHESKA Angulo * Telephone Encounter - Adina Wu RN - 11/04/2022 3:39 PM EDT I called and talked to Maurisio. He is aware of the denial. He reports he will stick with the BID injections for now but think about what he wants to do. He doesn't want to mess up what progress he has made without needing blood transfusions. Fyi. * Telephone Encounter - Adina Wu RN - 11/03/2022 1:48 PM EDT LMOM with call back number * Telephone Encounter - FRANCHESKA Collins - 11/03/2022 1:31 PM EDT I am unable to use the diagnoses code that's listed in the denial letter to get Octreotide monthly injection approved. Pls inform pt of denial and he can try reducing his current Octreotide 50mcg from bid to once daily FRANCHESKA Angulo * Telephone Encounter - Adina Wu RN - 11/03/2022 11:36 AM EDT Marielena please advise. Denial reason is in scanning * Telephone Encounter - KATHE Tellez - 11/03/2022 9:55 AM EDT New or re-auth: New authorization Approved/Denied: Denied Drug Name and Formulation: Octreotide Acetate 10 MG Intramuscular Kit (SandoSTATIN [place]) How Prescribed(directions/sig): Inject 10 mg into a large muscle every month. Day Supply: 30 Did you receive insurance information from outside the chart? No, received insurance information within the chart Valid auth start date: N/A Valid auth end date: N/A Rx Insurance Info: P Rx Benefits Verified through/on date: 11/02/2022 Referral (TE) received from: [facility] Thank you, Aviva Lombardo Medication Staff Nurse [facility] Resource Team 11/03/2022, 9:55 AM * Telephone Encounter - KATHE Tellez - 11/01/2022 12:42 PM EDT [facility] Authorization Submission Submission Information: Medication: SANDOSTATIN [place]AR [place] 10 MG KT Portal used: PromptPA Insurance: [facility] Authorization #/Mendes: [id number] Thank you, Aviva Lombardo Medication Staff Nurse [facility] Resource Team 11/01/2022, 12:43 PM * Telephone Encounter - Tobin Flowers, trust manager - 11/01/2022 9:22 AM EDT New or re-auth: new Patient Maurisio Beltran needs a prior authorization for their sandostatin through their [facility] insurance. ID: [id number] BIN:[id number] PCN:[id number] Target ship date is n/a. Thank you very much, Elaine Flowers [employer], [facility] 11/01/2022 9:23 AM\\ documented in this encounter Plan of Treatment Upcoming Encounters Date Type Specialty Care Team Description 11/17/2022 Office Visit Pharmacy [address] [place] [address] 11/19/2022 Imaging Radiology 11/22/2022 Imaging Radiology 11/30/2022 Office Visit Urology Denny Armando MD [address] [place] [address] [place] [address] 12/13/2022 Office Visit Cardiology Nevaeh Linda PA-C [address] [place] [address] [place] [address] 12/15/2022 Office Visit Family Medicine Nicola Prado MD [address] [place] [address] [place] [address] 12/20/2022 Office Visit Dermatology Meron Aragon PA-C [address] [place] [address] [place] [address] 01/28/2023 Office Visit Nephrology Verito Jovel PA-C [address] [place] [address] 03/04/2023 Office Visit Gastroenterology Marielena Hall CRNP [address] [place] [address] 03/29/2023 Office Visit Cardiology Blair Hannah PA-C [address] [place] [address] 06/02/2023 Nurse Only Ancillary Neeraj Nurse Annual [address] [place] [address] 10/12/2023 Office Visit Sleep Disorders Eulalia Milligan DO [address] [place] [address] 10/25/2023 Cardiac Studies Cardiology Keith Pickard [facility] [address] [place] [address] Scheduled Procedures Name Priority Associated Diagnoses Date/Ti [...] this encounter Medical Devices Implanted Type Area Thoracic Medicine Physician Device Identifier Shelf Expiration Date Model / Serial / Lot Sut Steel 6 [id number] - [id number] Implanted:Qty: 6 on 07/10/[address] [facility] N/A: Chest DO NOT USE 08/14/2012 [id number] / / [id number] documented as of this encounter Additional Health Concerns Infection Onset Date Last Indicated Resolved Time C. difficile Rule-Out 11/05/2022 11/05/20222022 10:17 PM EDT C. difficile 11/05/2022 11/05/2022 documented as of this encounter Advance Directives Documents on File Type Date Recorded Patient Mainframe Programmer Expl anation Power of Plastic Card Grader Cardroom 06/26/2019 POWER OF A TTORNEY Advance Directives [...] the patient have Health Care Power of Plastic Card Grader Cardroom? No Code Status History Code Status Date [...] patient or by statute hierarchy) Care Teams Supervisor Assembly And Packing Relationship Specialty Start Date End Date Nicola Prado MD [address] [place] [address] [place] [address] PCP - General Family Medicine 06/19/21 documented as of this encounter
--- OUTSIDE RECORDS SUMMARY | 2023-02-03 20:24 | External Medical Summary | Summary of Care ---
Author Name Unknown Organization [facility] Address [address] [place] [address] Phone [phone] Care Team Providers Care First Aid Director Name Role Phone Nicola Prado MD Primary Care Provide r Reason for Visit * Reason Onset Date Comments Medication Management 11/08/2022 Encounter Details Date Type Department Care Team Description 11/08/2022 Telephone Family [address] [place] [address] Alissa Drew PA-C [address] [place] [address] [place] [address] Medication Management Allergies Active Allergy Reactions Severity Noted Date Comments Hydromorphone High 09/20/2021 Other reaction(s): Nausea Other reaction(s): Nausea 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/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 Other reaction(s): AMS Other reaction(s): AMS Prasugrel 04/02/2016 bleeding Prednisone High 09/20/2021 Other reaction(s): INCREASE BLOOD SUGAR Other reaction(s): INCREASE BLOOD SUGAR documented as of this encounter (statuses as of 11/09/2022) Medications Medication Sig Dispensed Refills Start Date [...] of less than 8.0% ([facility]) 3-4 times a day 450 [...] Tablet 1 05/05/2022 Active Easy Touch Pen [place] 31G X 8 MM (Insulin Pen Needle)Indications :Type 2 diabetes mellitus with hemoglobin A1c goal of less than 8.0% ([facility]),Type 2 diabetes mellitus with stage 4 chronic kidney disease, unspecified whether care home insulin use ([facility]) Use up to six times daily with insulin. DXe11.9 600 Each 3 05/22/2022 Active Albuterol Sulfate HFA 108 (90 Base) MCG/ACT Inhalation Aerosol SolutionIndication s:COPD exacerbation ([facility]),Chronic cough Inhale by [...] Extended Release 12 Hour (Mucinex)Indicatio ns:COPD exacerbation ([facility]) Take 1 Tablet by mouth 2 times a day as needed for Congestion. Take with plenty of water. Do not cut, crush or chew 40 Tablet 0 10/13/2022 Active Tresiba FlexTouch 200 UNIT/ML Subcutaneous Solution Pen-injector (Insulin Degludec)Indicatio ns:Type 2 diabetes mellitus with hemoglobin A1c goal of less than 8.0% ([facility]) Inject 100 Units under the [...] Active Ciprofloxacin HCl 500 MG Oral Tablet (Cipro)Indications :Diarrhea, unspecified type Take 1 Tablet by mouth in the morning and 1 Tablet before bedtime. Do all this for 10 days. 20 Tablet 0 11/03/2022 Active Vancomycin HCl 125 MG Oral Capsule (Vancocin) Take 1 Capsule by mouth every 6 hours. For 7 days 28 Capsule 0 11/09/2022 Active Vancomycin HCl 125 MG Oral Capsule (Vancocin) Take 1 Capsule by mouth every 6 hours for 7 days. For 7 days 28 Capsule 0 11/08/2022 3 Discontinue d(Refill) Hospital, Clinic, or Other [...] as of this encounter (statuses as of 11/09/2022) Active Problems Problem Noted Date Atherosclerosis of coronary artery bypass graft of [place] heart with angina pectoris 10/13/2022 Encounter for [...] urinary tr act symptoms 07/13/2001 Atherosclerosis of [place] co ronary artery of [place] heart without angina pectoris Morbid obesity with BMI of 40.0-44.9, ad ult documented as of this encounter (statuses as of 11/09/2022) Resolved Problems Problem Noted Date Resolved Date [...] (transient ischemic attack) 02/04/2016 11/23/2017 Overview: [facility] Anemia of chronic renal failure 07/30/2015 01/27/2017 [...] MANAGEMENT 07/22/2008 0 Overview: Kianna Lyn RN [phone] Examination following surgery 07/11/2008 Difficult intubation 07/10/2008 02/19/2020 Overview: Patient seen and examined in OR#1.Possible difficult intubation.TM distance about 5 cms.MP 3-4. Will plan FOB electively Due to current situation. EXAMINATION OF PARTICIPANT IN CLINICAL TRIAL-gen omics 07/04/2008 05/30/2009 Overview: Renamed Per Clinical Trials Billing Project. Study Titile: Genomic Markers for Patients with Cardiovascular Disease Project #[id number] PI: Miriam Roque MD Please call [phone] with study related questions Chronic coronary artery [...] at goal 07/04/2008 9 GENOMICS CARDIO RESEARCH OTHER*[id number] 200803/23/2016 Overview: Renamed Per Clinical Trials Billing Project. Study Titile: Genomic Markers for Patients with Cardiovascular Disease Project #[id number] PI: Miriam Roque MD Please call [phone] with study related questions Kidney disease, chronic, [...] as of this encounter (statuses as of 11/09/2022) Immunizations Name Administration Dates Next Due COVID-19 mRNA, LNP-s, No Pre serve, 2-Dose Series (Agentrun) 12/09/2020,05/09/2020,04/11/2020 COVID-19, LNP-s, No Preserve , Juan [...] Telephone Encounter - Lisha Parrish RN - 11/09/2022 11:54 AM EDT Pt aware * Telephone Encounter - Lisha Parrish RN - 11/09/2022 11:49 AM EDT Please send script to [place] for him * Telephone Encounter - Alissa Drew PA-C - 11/09/2022 11:33 AM EDT Can stop the cipro. I wasn't sure if it was C. Dif or diverticulitis that was causing the diarrhea.Start vancomycin * Telephone Encounter - Destiny Justice LPN - 11/09/2022 11:15 AM EDT Provider to address: pt calling to check previous message. He would like Alissa to be aware he has not had BM since Tuesday. He is inquiring if he really needs to be on both ABXs, Vanco and cipro. He doesn't have the Vanco yet, as he needed it sent to [facility] in [facility]. Please advise. Reason for Call: Medication Management Contact: Telephone Call Contact Type: Test Results Outcome: n/a Total Time including non face to face (minutes): 5 * Telephone Encounter - Cecily Hwang LPN - 11/09/2022 9:26 AM EDT Provider to address: cipro and vancomycin Reason for Call: Medication Management Contact: Telephone Call Contact Type: Medication Outcome: Patient is calling. Said he was on cipro and then given vancomycin. Is he suppose to be onboth? Please advise. Said one was for c-diff and the other for divertic. Total Time including non face to face (minutes): 5 * Telephone Encounter - Linette Swan LPN - 11/09/2022 9:21 AM EDT Provider to address: Patient calling back with Pharmacy Address. Ming: [phone] [facility] Selected, please send RX. Reason for Call: No chief complaint on file. Contact: Telephone Call Contact Type: Information Total Time including non face to face (minutes): 5 * Telephone Encounter - Lisha Parrish RN - 11/09/2022 9:10 AM EDT I called patient, he is currently in [place]. I asked pt to call us back with a pharmacy name and address and we can send it to him * Telephone Encounter - Alissa Drew PA-C - 11/08/2022 8:07 AM EDT Please call pt. His stool came back positive for C. Dif. He needs to start on abx. Med sent to pharm. documented in this encounter Plan of Treatment Upcoming Encounters Date Type Specialty Care Team Description 11/17/2022 Office Visit Pharmacy [address] [place] [address] 11/19/2022 Imaging Radiology 11/22/2022 Imaging Radiology 11/30/2022 Office Visit Urology Denny Armando MD [address] [place] [address] [place] [address] 12/13/2022 Office Visit Cardiology Nevaeh Linda PA-C [address] [facility] [place] [address] 12/15/2022 Office Visit Family Medicine Nicola Prado MD [address] [place] [address] [place] [address] 12/20/2022 Office Visit Dermatology Meron Aragon PA-C [address] [place] [address] [place] [address] 01/28/2023 Office Visit Nephrology Verito Jovel PA-C [address] [facility] [place] [address] 03/04/2023 Office Visit Gastroenterology Marielena Hall CRNP [address] [place] [address] 03/29/2023 Office Visit Cardiology Blair Hannah PA-C [address] [place] [address] 06/02/2023 Nurse Only Ancillary Nurse Neeraj [address] [place] [address] 10/12/2023 Office Visit Sleep Disorders Eulalia Milligan DO [address] [place] [address] 10/25/2023 Cardiac Studies Cardiology Neeraj, Pacer [facility] [address] [place] [address] Scheduled Procedures Name Priority Associated Diagnoses Date/Ti [...] this encounter Medical Devices Implanted Type Area Cuff Setter Lockstitch Device Identifier Shelf Expiration Date Model / Serial / Lot Sut Steel 6 M654g - [id number] Implanted:Qty: 6 on 07/10/2008 at OR [facility] N/A: Chest DO NOT USE 08/14/2012 M654G / / [id number] documented as of this encounter Additional Health Concerns Infection Onset Date Last Indicated Resolved Time C. difficile 11/05/2022 11/05/2022 documented as of this encounter Advance Directives Documents on File Type Date Recorded Patient Nurse Aide Evaluator Expl anation Power of Director Skills 06/26/2019 POWER OF A TTORNEY Advance Directives [...] the patient have Health Care Power of Director Skills? No Code Status History Code Status Date [...] patient or by statute hierarchy) Care Teams First Aid Director Relationship Specialty Start Date End Date Nicola Prado MD [address] [place] [address] [place] [address] PCP - General Family Medicine 06/19/21 documented as of this encounter
--- OUTSIDE RECORDS SUMMARY | 2023-02-03 20:24 | External Medical Summary | Summary of Care ---
Author Name Unknown Organization [facility] Address [address] [place] [address] Phone [phone] Care Team Providers Care Windows Architect Name Role Phone Nicola Prado MD Primary Care Provide r Reason for Visit * Reason Onset Date Comments Precert In Process 10/29/2022 21 [facility] Mariscal dostatin FYI 10/29/2022 Encounter Details Date Type Department Care Team Description 10/29/2022 Telephone Gastroenterology, [facility] [address] [place] [address] Marielena Giraldo CRNP [address] [place] [address] Precert In Process (21 [facility] Sandostatin)... Allergies Active Allergy Reactions Severity Noted Date [...] than 8.0% ([facility]) 3-4 times a day 450 Strip 3 2 Active Xiidra 5 % Ophthalmic Solution instill 1 drop by ophthalmic route 2 times every day into both eyes. OK for 90 day supply. 0 2 Active NovoLOG FlexPen 100 UNIT/ML Subcutaneous Solution Pen-injector (insulin aspart)Indication s:Type 2 diabetes mellitus with hemoglobin A1c goal of less than 8.0% ([facility]) 12 units with breakfast and supper PLUS [...] Tablet 1 3 Active Easy Touch Pen [place] 31G X 8 MM (Insulin Pen Needle)Indication s:Type 2 diabetes mellitus with hemoglobin A1c goal of less than 8.0% ([facility]),Type 2 diabetes mellitus with stage 4 chronic kidney disease, unspecified whether superintendent marine oil terminal insulin use ([facility]) Use up to six times daily with insulin. DXe11.9 600 Each 3 3 Active Albuterol Sulfate HFA 108 (90 Base) MCG/ACT Inhalation Aerosol SolutionIndicatio ns:COPD exacerbation ([facility]),Chronic cough Inhale by mouth 2 Puffs every [...] Extended Release 12 Hour (Mucinex)Indicati ons:COPD exacerbation ([facility]) Take 1 Tablet by mouth 2 times [...] the morning and the evening. 180 mL 3 Active Omeprazole 20 MG Oral Capsule Delayed Release (PriLOSEC) Take 1 Capsule BY MOUTH in the morning AND 1 Capsule before bedtime. 60 Capsule 5 3 11/05/19 23 Discontinued Octreotide Acetate 50 MCG/ML Injection Solution (Sandostatin) Inject 50mcg under the skin in the morning and the evening 180 mL 3 11/02/19 23 Discontinued(Re fill) Hospital, Clinic, [...] Atherosclerosis of coronary artery bypass graft of [place] heart with angina pectoris 10/13/2022 Encounter for [...] urinary tr act symptoms 07/13/2001 Atherosclerosis of [place] co ronary artery of [place] heart without angina pectoris Morbid obesity with [...] TIA (transient ischemic attack) 02/04/2016 11/23/2017 Overview: [facility] Anemia of chronic renal failure 07/30/2015 [...] MANAGEMENT 07/22/2008 0 Overview: Kianna Lyn RN [phone] Examination following surgery 07/11/2008 Difficult intubation 07/10/2008 02/19/2020 Overview: Patient seen and examined in OR#1.Possible difficult intubation.TM distance about 5 cms.MP 3-4. Will plan FOB electively Due to current situation. EXAMINATION OF PARTICIPANT IN CLINICAL TRIAL-gen omics 07/04/2008 05/30/2009 Overview: Renamed Per Clinical Trials Billing Project. Study Titile: Genomic Markers for Patients with Cardiovascular Disease Project #[id number] PI: Miriam Roque MD Please call [phone] with study related questions Chronic coronary artery [...] at goal 07/04/2008 9 GENOMICS CARDIO RESEARCH OTHER*[id number] 200803/23/2016 Overview: Renamed Per Clinical Trials Billing Project. Study Titile: Genomic Markers for Patients with Cardiovascular Disease Project #[id number] PI: Miriam Roque MD Please call [phone] with study related questions Kidney disease, chronic, [...] encounter Miscellaneous Notes * Telephone Encounter - Elaine Bartlett RN - 11/08/2022 12:46 PM EDT Received a TigerText from Miguel Gaytan ([facility] biomedical engineer) to request that we withdraw this prior auth request. Nurses, can you pls assist with this? FRANCHESKA Angulo * Telephone Encounter - Adina Wu RN - 11/04/2022 4:26 PM EDT I think this is in relation to the denial of the IM octreotide as I told him recently why it was denied. I do not believe he has any of the conditions that are approved for that medication. Lmom with call back number. * Telephone Encounter - KATHE Henry - 11/04/2022 3:45 PM EDT FYI: Patient calling to say he has cancer. * Telephone Encounter - Adina Wu RN - 11/04/2022 3:28 PM EDT Please see alternative encounter. * Telephone Encounter - Adina Wu RN - 11/02/2022 1:39 PM EDT Attempted to call and update patient. Lmom with call back number. * Addendum Note - FRANCHESKA Collins - 11/01/2022 12:02 PM EDTAddended by: MARIELENA GIRALDO on: 11/01/2022 12:02 PM Modules accepted: Orders * Telephone Encounter - FRANCHESKA Collins - 11/01/2022 12:02 PM EDT Script written for Octreotide 50mcg subQ BID while we obtain prior auth for the LAR version FRANCHESKA Angulo * Telephone Encounter - Adina Wu RN - 11/01/2022 10:29 AM EDT Saman called back. Reports he has a few more days of his Sub Q injections left. Asking for a short script of those until we can get his IM injection arranged. Reports he has a nurse that comes twice a month and he is asking if we can help arrange her to do this. I reported I am not sure if they can but I can inquire about this. It looks like this may require a prior auth. Let try a PA before we see if we can arrange this through his HH. He uses [facility] He provided me with [phone] Gastro Pre-Cert Request Specialty Medication: No. Medication/Disease State Information: Medication: Octreotide Acetate 10 MG Intramuscular Kit (SandoSTATIN LAR [place]) 1 Kit 12 10/29/2022 Sig - Route: Inject 10 mg into a large muscle every month. - Intramuscular Diagnosis (including ICD-10): D64.9 Anemia Site of care: Self-administered - route pre-cert request to [id number] Office Information: Prescriber: FRANCHESKA Collins can you provide a short script for his SQ injections. Pre-cert please submit PA * Telephone Encounter - FRANCHESKA Collins - 10/29/2022 11:55 AM EDT He has benefited greatly since starting Octreotide injections w Hgb around 11-12 and hasn't needed blood transfusions for months. He does have CKD which can also cause anemia. We can try switching him to Octreotide LAR 10mg IM once monthly instead of the twice daily subQ injections. I sent a script of the OCtreotide LAR to [facility] specialty pharmacy. May need prior auth for this prescription to be approved. Pls inform him of this plan and also make sure he understands that this would be an IM injection not subQ. He may need nurse administration or teaching for IM injection. Once the monthly injection is started, he can stop the previous Octreotide subQ injections. FRANCHESKA Angulo * Telephone Encounter - Linette López RN - 10/29/2022 9:58 AM EDT Pt calling concerned about his ongoing treatment with Octreotide. He describes his injections as very painful, he is injecting mostly in his upper arms as he already injects his stomach with other medication. He is disappointed that he continues to be anemic, and is questioning why his hgb has not dropped below 11. He states, " Now I was told I would not be on these twice daily injections and that eventually it would drop down to once a day, but even though I am doing this so much, my blood work is still not looking too good." Marielena- please advise. documented in this encounter Plan of Treatment Upcoming Encounters Date Type Specialty Care Team Description 11/17/2022 Office Visit [address] [place] [address] 11/19/2022 Imaging Radiology 11/22/2022 Imaging Radiology 11/30/2022 Office Visit Urology Denny Armando MD 27 [facility] [address] [place] [address] 12/13/2022 Office Visit [facility] [place] [address] 12/15/2022 Office Visit Family Medicine Nicola Prado MD [address] [place] [address] [place] [address] 12/20/2022 Office Visit Dermatology Meron Aragon PA-C [address] [place] [address] [place] [address] 01/28/2023 Office Visit Nephrology Verito Jovel PA-C [facility] [place] [address] 03/04/2023 Office Visit Gastroenterology Marielena Giraldo CRNP [address] [place] [address] 03/29/2023 Office Visit Cardiology Blair Hannah PA-C [address] [place] [address] 06/02/2023 Nurse Only Ancillary Neeraj Nurse Annual [address] [place] [address] 10/12/2023 Office Visit Sleep Disorders Eulalia Milligan, [address] [place] [address] 10/25/2023 Cardiac Studies Cardiology Neeraj, [facility] [address] [place] [address] Scheduled Procedures Name Priority Associated Diagnoses Date/Ti [...] this encounter Medical Devices Implanted Type Area Trust And Estates Attorney Device Identifier Shelf Expiration Date Model / Serial / Lot Sut Steel 6 [id number] - [id number] Implanted:Qty: 6 on 07[place] [facility] [place] Chest DO NOT USE 08/14/2012 [id number] / / [id number] documented as of this encounter Additional Health Concerns Infection Onset Date Last Indicated Resolved Time C. difficile Rule-Out 11/05/2022 11/05/20222022 10:17 PM EDT C. difficile 11/05/2022 11/05/2022 documented as of this encounter Advance Directives Documents on File Type Date Recorded Patient Elevator Starter Expl anation Power of Drafting Clerk 06/26/2019 POWER OF A TTORNEY Advance [...] the patient have Health Care Power of Drafting Clerk? No Code Status History Code Status [...] patient or by statute hierarchy) Care Teams Windows Architect Relationship Specialty Start Date End Date Nicola Prado MD [address] [place] [address] [place] [address] PCP - General Family Medicine 06/19/21 documented as of this encounter
--- OUTSIDE RECORDS SUMMARY | 2023-02-03 20:24 | External Medical Summary | Summary of Care ---
Author Name Unknown Organization [facility] Address [address] [place] [address] Phone [phone] Care Team Providers Care Cardroom Manager Name Role Phone Nicola Prado MD Primary Care Provide r Encounter Details Date Type Department Care Team Description 11/09/2022 Telephone Eliza Esteban [address] [place] [id number] [facility] [address] [place] [phone] Allergies Active Allergy Reactions Severity Noted Date [...] mouth daily. 90 Tablet 3 12/16/2021 Active DGP LabsTouch UltraSoft LancetsIndications: Type 2 diabetes mellitus with hemoglobin A1c goal of less than 8.0% ([facility]) Test blood sugar up to five times daily; dx E11.9 450 Each 3 12/17/2021 Active OneTouch Ultra In Vitro Strip (Glucose Blood)Indications:T ype 2 diabetes mellitus with hemoglobin A1c goal of less than 8.0% ([facility]) 3-4 times a day 450 Strip 3 12/17/2021 Active Xiidra 5 % Ophthalmic Solution instill 1 drop by ophthalmic route 2 times every day into both eyes. OK for 90 day supply. 0 01/05/2022 Active NovoLOG FlexPen 100 UNIT/ML Subcutaneous Solution Pen-injector (insulin aspart)Indications: Type 2 diabetes mellitus with hemoglobin A1c goal of less than 8.0% ([facility]) 12 units with breakfast and [...] Tablet 1 05/05/2022 Active Easy Touch Pen [place] 31G X 8 MM (Insulin Pen Needle)Indications: Type 2 diabetes mellitus with hemoglobin A1c goal of less than 8.0% ([facility]),Type 2 diabetes mellitus with stage 4 chronic kidney disease, unspecified whether rodent exterminator insulin use ([facility]) Use up to six times daily with insulin. 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 Will plan FOB electively Due to current situation. EXAMINATION OF PARTICIPANT IN CLINICAL TRIAL-gen omics 07/04/2008 05/30/2009 Overview: Renamed Per Clinical Trials Billing Project. Study Titile: Genomic Markers for Patients with Cardiovascular Disease Project #[id number] PI: Miriam Roque MD Please call [phone] with study related questions Chronic coronary artery [...] at goal 07/04/2008 9 GENOMICS CARDIO RESEARCH OTHER*[id number] 200803/23/2016 Overview: Renamed Per Clinical Trials Billing Project. Study Titile: Genomic Markers for Patients with Cardiovascular Disease Project #[id number] PI: Miriam Roque MD Please call [phone] with study related questions Kidney disease, chronic, [...] encounter Miscellaneous Notes * Telephone Encounter - Niya Higginbotham RPh - 11/09/2022 1:46 PM EDT Dermatology Pharmacist Appointment Request Please schedule patient for Enbrel phone check in with the clinic pharmacist Department & Provider: DERMATOLOGY [address] [facility] WB [[id number]] - Pharmacist Dermatology [address] [facility] WB [[id number]] Patient to be scheduled for visit type:Telephonic [[id number]] Length of visit: 30 mins Time Frame: within 1-2 weeks Please route this encounter back to Dermatology Pharmacist Pool [[id number]] if unable to schedule patient after 3 attempts. Niya Higginbotham, PharmD Medication Therapy Disease Management Dermatology Clinical Pharmacist 11/09/2022, 1:46 PM documented in this encounter Plan of Treatment Upcoming Encounters Date Type Specialty Care Team Description 11/17/2022 Office Visit Pharmacy [address] [place] [address] 11/19/2022 Imaging Radiology 11/22/2022 Imaging Radiology 11/30/2022 Office Visit Urology Denny Armando MD 27 [facility] [address] [place] [address] 12/13/2022 Office Visit Cardiology Nevaeh Linda PA-C [address] [place] [address] 12/15/2022 Office Visit Family Medicine Nicola Prado MD [address] [place] [address] [place] [address] 12/20/2022 Office Visit Dermatology Meron Aragon PA-C [address] [place] [address] [place] [address] 01/28/2023 [facility] [address] 03/04/2023 Office Visit Gastroenterology Marielena Hall CRNP [address] [place] [address] 03/29/2023 Office Visit Cardiology Blair Hannah PA-C [address] [place] [address] 06/02/2023 Nurse Only Ancillary Nurse Neeraj [address] [place] [address] 10/12/2023 Office Visit Sleep Disorders Eulalia Milligan DO [address] [place] [address] 10/25/2023 Cardiac Studies Cardiology Keith Pickard [facility] [address] [place] [address] Scheduled Procedures Name Priority Associated Diagnoses Date/Ti [...] this encounter Medical Devices Implanted Type Area Processing Archivist Device Identifier Shelf Expiration Date Model / Serial / Lot Sut Steel 6 M654g - [id number] [place]ed:[place] [facility] [facility] [place] Chest DO NOT USE 08/14/2012 [id number] / / [id number] documented as of this encounter Additional Health Concerns Infection Onset Date Last Indicated Resolved Time C. difficile 11/05/2022 11/05/2022 documented as of this encounter Advance Directives Documents on File Type Date Recorded Patient Lead Fabricator Expl anation Power of Still Operator Batch Or Continuous 06/26/2019 POWER OF A TTORNEY Advance Directives [...] the patient have Health Care Power of Still Operator Batch Or Continuous? No Code Status History Code Status Date [...] patient or by statute hierarchy) Care Teams Cardroom Manager Relationship Specialty Start Date End Date Nicola Prado MD [address] [place] [address] [place] [address] PCP - General Family Medicine 06/19/21 documented as of this encounter
--- OUTSIDE RECORDS SUMMARY | 2023-02-03 20:24 | External Medical Summary | Summary of Care ---
Author Name Unknown Organization [facility] Address [address] [place] [address] Phone [phone] Care Team Providers Care Sr Technical Sales Consultant Name Role Phone Nicola Prado MD Primary Care Provide r Reason for Visit * Reason Onset Date Comments Precert Denied 11/01/2022 Encounter Details Date Type Department Care Team Description 11/01/2022 Telephone Gastroenterology, [facility] [address] [place] [address] Marielena Hall CRNP [address] [place] [address] Precert Denied Allergies Active Allergy Reactions Severity [...] less than 8.0% ([facility]) Test blood sugar up to five times [...] Tablet 1 3 Active Easy Touch Pen [place] 31G X 8 MM (Insulin Pen Needle)Indication s:Type 2 diabetes mellitus with hemoglobin A1c goal of less than 8.0% ([facility]),Type 2 diabetes mellitus with stage 4 chronic kidney disease, unspecified whether termination clerk insulin use ([facility]) Use up to six times daily with insulin. DXe11.9 600 Each 3 3 Active Albuterol Sulfate HFA 108 (90 Base) MCG/ACT Inhalation Aerosol SolutionIndicatio ns:COPD exacerbation ([facility]),Chronic cough Inhale [...] Extended Release 12 Hour (Mucinex)Indicati ons:COPD exacerbation ([facility]) Take 1 Tablet by mouth 2 times a day as needed for Congestion. Take with plenty of water. Do not cut, crush or chew 40 Tablet 0 3 Active Tresiba FlexTouch 200 UNIT/ML Subcutaneous Solution Pen-injector (Insulin Degludec)Indicati ons:Type 2 diabetes mellitus with hemoglobin A1c goal of less than 8.0% ([facility]) Inject 100 Units under the skin daily. [...] Atherosclerosis of coronary artery bypass graft of [place] heart with angina pectoris 10/13/2022 Encounter for [...] urinary tr act symptoms 07/13/2001 Atherosclerosis of [place] co ronary artery of [place] heart without angina pectoris Morbid obesity with [...] use aero chamber. Test performed by Dori CURB BUILDER CPFT Body mass index (BMI) of 45.0 [...] (transient ischemic attack) 02/04/2016 11/23/2017 Overview: [facility] Anemia of chronic renal failure 07/30/2015 [...] 07/22/2008 0 Overview: Kianna Lyn RN [phone] Examination following surgery 07/11/2008 Difficult intubation 07/10/2008 02/19/2020 Overview: Patient seen and examined in OR#1.Possible difficult intubation.TM distance about 5 cms.MP 3-4. Will plan FOB electively Due to current situation. EXAMINATION OF PARTICIPANT IN CLINICAL TRIAL-gen omics 07/04/2008 05/30/2009 Overview: Renamed Per Clinical Trials Billing Project. Study Titile: Genomic Markers for Patients with Cardiovascular Disease Project #[id number] PI: Miriam Roque MD Please call [phone] with study related questions Chronic coronary artery [...] at goal 07/04/2008 9 GENOMICS CARDIO RESEARCH OTHER*[id number] 200803/23/2016 Overview: Renamed Per Clinical Trials Billing Project. Study Titile: Genomic Markers for Patients with Cardiovascular Disease Project #[id number] PI: Miriam Roque MD Please call [phone] with study related questions Kidney disease, chronic, [...] mRNA, LNP-s, No Pre serve, 2-Dose Series (Beststudy) 12/09/2020,05/09/2020,04/11/2020 COVID-19, LNP-s, No Preserve , Juan [...] Miscellaneous Notes * Telephone Encounter - KATHE Wesley - 11/15/2022 11:11 AM EDT Pt calling back would like someone to call him back about his injection he can be reached at [phone] * Telephone Encounter - FRANCHESKA Collins - 11/08/2022 12:24 PM EDT Received a TigerText from Miguel Gaytan ([facility] [place] medical transcriber) to request that we withdraw this prior [...] auth end date: N/A Rx Insurance Info: [facility] Rx Benefits Verified through/on date: 11/02/2022 Referral (TE) received from: [facility] Thank you, Aviva Lombardo Medication Tobacco Drying Machine Operator 11/03/2022, 9:55 AM * Telephone Encounter - KATHE Tellez - 11/01/2022 12:42 PM EDT [facility] Authorization Submission Submission Information: Medication: SANDOSTATIN LAR DEPOT 10 MG KT Portal used: PromptPA Insurance: [facility] [place] Authorization #/Mendes: [id number] Thank you, Aviva Lombardo Medication Tobacco Drying Machine Operator 11/01/2022, 12:43 PM * Telephone Encounter - HARLEY Mauricio Tech - 11/01/2022 9:22 AM EDT New or re-auth: new Patient Maurisio Beltran needs a prior authorization for their sandostatin through their [facility] [place] insurance. ID: [id number] BIN:[id number] PCN:[id number] Target ship date is n/a. Thank you very much, Elaine Flowers Circuit Board Assembler, [facility] 11/01/2022 9:23 AM\\ documented in this encounter Plan of Treatment Upcoming Encounters Date Type Specialty Care Team Description 11/17/2022 Telemedicine Dermatology Wb, Pharmacist Dermatology [facility] [address] [facility] [place] [address] 11/17/2022 Office Visit Pharmacy [address] [place] [address] 11/19/2022 Imaging Radiology 11/22/2022 Imaging Radiology 11/30/2022 Office Visit Urology Denny Armando MD [address] [place] [address] [place] [address] 12/13/2022 Office Visit Cardiology Nevaeh Linda PA-C [address] [place] [address] 12/15/2022 Office Visit Family Medicine Nicola Prado MD [address] [place] [address] [place] [address] 12/20/2022 Office Visit Dermatology Meron Aragon PA-C [address] [place] [address] [place] [address] 01/28/2023 Office [facility]ph[facility] [address] 03/04/2023 Office Visit Gastroenterology Marielena Hall CRNP [address] [place] [address] 03/29/2023 Office Visit Cardiology Blair Hannah PA-C [address] [place] [address] 06/02/2023 Nurse Only Ancillary Nurse Neeraj [address] [place] [address] 10/12/2023 Office Visit Sleep Disorders Eulalia Milligan DO [address] [place] [address] 10/25/2023 Cardiac Studies Cardiology Keith Pickard [facility] [address] [place] [address] Scheduled Procedures Name Priority Associated Diagnoses Date/Ti [...] this encounter Medical Devices Implanted Type Area Sales Account Director Device Identifier Shelf Expiration Date Model / Serial / Lot Sut [place] 6 M654g - [id number] Implanted:Qty: 6 on 07/10/2008 at [place] [facility] [place] N/A: Chest DO NOT USE 08/14/2012 [id number] / / [id number] documented as of this encounter Additional Health Concerns Infection Onset Date Last Indicated Resolved Time C. difficile Rule-Out 11/05/2022 11/05/20222022 10:17 PM EDT C. difficile 11/05/2022 11/05/2022 documented as of this encounter Advance Directives Documents on File Type Date Recorded Patient Senior Sql Server Dba Expl anation Power of Metal Bonding Worker 06/26/2019 POWER OF A TTORNEY Advance [...] the patient have Health Care Power of Metal Bonding Worker? No Code Status History Code Status Date Activated Date Inactivated Comments Full Code 07/10/2008 6:37 PM 07/21/2008 4:52 PM This o rder reflects the patients wishes and were consensually agreed upon. Full Code 07/04/2008 2:18 PM 07/10/2008 6:30 PM Healthcare Agents on File Name Relationship Healthcare Agent Relationshi p Communication Shane Beltran [facility] Child Health Care Repr esentative (appointed verbally by patient or by statute hierarchy) Care Teams Sr Technical Sales Consultant Relationship Specialty Start Date End Date Nicola Prado MD [address] [place] [address] [place] [address] PCP - General Family Medicine 06/19/21 documented as of this encounter
--- OUTSIDE RECORDS SUMMARY | 2023-02-03 20:24 | External Medical Summary | Summary of Care ---
Author Name Unknown Organization [facility] Address [address] [place] [address] Phone [phone] Care Team Providers Care X Ray Technologist Name Role Phone Nicola Prado MD Primary Care Provide r Reason for Visit * Reason Onset Date Comments Precert In Process 10/29/2022 21 [facility] Mariscal dostatin FYI 10/29/2022 Encounter Details Date Type Department Care Team Description 10/29/2022 Telephone Gastroenterology, [facility] [address] [place] [address] Marielena Giraldo CRNP [address] [place] [address] Precert In Process (21 [facility] Sandostatin)... Allergies Active Allergy Reactions Severity [...] Tablet 1 3 Active Easy Touch Pen [place] 31G X 8 MM (Insulin Pen Needle)Indication s:Type 2 diabetes mellitus with hemoglobin A1c goal of less than 8.0% ([facility]),Type 2 diabetes mellitus with stage 4 chronic kidney disease, unspecified whether terminal supervisor insulin use ([facility] [...] with long-term current use of insulin ([facility]) Inject 1.8 mg under the skin daily. [...] Release 12 Hour (Mucinex)Indicati ons:COPD exacerbation ([facility]) Take 1 Tablet by mouth 2 times [...] Atherosclerosis of coronary artery bypass graft of [place] heart with angina pectoris 10/13/2022 Encounter for [...] urinary tr act symptoms 07/13/2001 Atherosclerosis of [place] co ronary artery of [place] heart without angina pectoris Morbid obesity with [...] (transient ischemic attack) 02/04/2016 11/23/2017 Overview: [facility] Anemia of chronic renal failure [...] MANAGEMENT 07/22/2008 0 Overview: Kianna Lyn RN [phone] Examination following surgery 07/11/2008 Difficult intubation 07/10/2008 02/19/2020 Overview: Patient seen and examined in OR#1.Possible difficult intubation.TM distance about 5 cms.MP 3-4. Will plan FOB electively Due to current situation. EXAMINATION OF PARTICIPANT IN CLINICAL TRIAL-gen omics 07/04/2008 05/30/2009 Overview: Renamed Per Clinical Trials Billing Project. Study Titile: Genomic Markers for Patients with Cardiovascular Disease Project #[id number] PI: Miriam Roque MD Please call [phone] with study related questions Chronic coronary artery [...] at goal 07/04/2008 9 GENOMICS CARDIO RESEARCH OTHER*[id number] 200803/23/2016 Overview: Renamed Per Clinical Trials Billing Project. Study Titile: Genomic Markers for Patients with Cardiovascular Disease Project #[id number] PI: Miriam Roque MD Please call [phone] with study related questions Kidney disease, chronic, [...] EDT Received a TigerText from Miguel Gaytan ([facility] medical records clerk) to request that we withdraw this prior [...] version FRANCHESKA Angulo * Telephone Encounter - Adian Wu RN - 11/01/2022 10:29 AM EDT [...] arrange this through his HH. He uses [email or web address] He provided me with [phone] Gastro Pre-Cert Request Specialty Medication: No. Medication/Disease State Information: Medication: Octreotide Acetate 10 MG Intramuscular Kit (SandoSTATIN LAR [place]) 1 Kit 12 10/29/2022 Sig - Route: Inject 10 mg into a large muscle every month. - Intramuscular Diagnosis (including ICD-10): D64.9 Anemia Site of care: Self-administered - route pre-cert request to [id number] Office Information: Prescriber: FRANCHESKA Collins can you [...] a script of the OCtreotide LAR to [facility] specialty pharmacy. May need prior auth for [...] Specialty Care Team Description 11/17/2022 Office Visit [address] [place] [address] 11/19/2022 Imaging Radiology 11/22/2022 Imaging Radiology 11/30/2022 Office Visit Urology Denny Armando MD [facility] [address] [place] [address] 12/13/2022 Office Visit [facility] [place] [address] 12/15/2022 Office Visit Family Medicine Nicola Prado MD [address] [place] [address] [place] [address] 12/20/2022 Office Visit Dermatology Meron Aragon PA-C [address] [place] [address] [place] [address] 01/28/2023 Office Visit Nephrology Verito Jovel PA-C [address] [facility] [place] [address] 03/04/2023 Office Visit Gastroenterology Marielena Giraldo CRNP [address] [place] [address] 03/29/2023 Office Visit Cardiology Blair Hannah PA-C [address] [place] [address] 06/02/2023 Nurse Only Ancillary Neeraj Nurse Annual [address] [place] [address] 10/12/2023 Office Visit Sleep Disorders Eulalia Milligan, [address] [place] [address] 10/25/2023 Cardiac Studies Cardiology Neeraj, [facility] [address] [place] [address] Scheduled Procedures Name Priority Associated Diagnoses Date/Ti [...] this encounter Medical Devices Implanted Type Area Pv Design And Installation Technician Device Identifier Shelf Expiration Date Model / Serial / Lot Sut Steel 6 [id number] - [id number] Implanted:Qty: 6 on 07[place]10/[place] [facility] [place]: Chest DO NOT USE 08/14/2012 [id number] / / [id number] documented as of this encounter Additional Health Concerns Infection Onset Date Last Indicated Resolved Time C. difficile Rule-Out 11/05/2022 11/05/20222022 10:17 PM EDT C. 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 No Code Status History Code Status Date [...] patient or by statute hierarchy) Care Teams X Ray Technologist Relationship Specialty Start Date End Date Nicola Prado MD [address] [place] [address] [place] [address] PCP - General Family Medicine 06/19/21 documented as of this encounter
--- OUTSIDE RECORDS SUMMARY | 2023-02-03 20:24 | External Medical Summary | Summary of Care ---
Author Name Unknown Organization [facility] Address [address] [place] [address] Phone [phone] Care Team Providers Care Transport Rn Name Role Phone Nicola Prado MD Primary Care Provide r Reason for Visit * Reason Onset Date Comments Precert Denied 11/01/2022 Encounter Details Date Type Department Care Team Description 11/01/2022 Telephone Gastroenterology, [facility] [address] [place] [address] Marielena Hall CRNP [address] [place] [address] Precert Denied Allergies Active Allergy Reactions Severity [...] hemoglobin A1c goal of less than 8.0% ([facility]) Test blood sugar up to five times daily; dx E11.9 450 Each 3 2 Active OneTouch Ultra In Vitro Strip (Glucose Blood)Indications :Type 2 diabetes mellitus with hemoglobin A1c goal of less than 8.0% ([facility]) 3-4 times a day 450 Strip 3 2 Active Xiidra 5 % Ophthalmic Solution instill 1 drop by ophthalmic route 2 times every day into both eyes. OK for 90 day supply. 0 2 Active NovoLOG FlexPen 100 UNIT/ML Subcutaneous Solution Pen-injector (insulin aspart)Indication s:Type 2 diabetes mellitus with hemoglobin A1c goal of less than 8.0% ([facility]) 12 units with breakfast and [...] Tablet 1 3 Active Easy Touch Pen [place] 31G X 8 MM (Insulin Pen Needle)Indication s:Type 2 diabetes mellitus with hemoglobin A1c goal of less than 8.0% ([facility]),Type 2 diabetes mellitus with stage 4 chronic kidney disease, unspecified whether assisted insulin use (HCC) Use up to six times daily with insulin. DXe11.9 600 Each 3 3 Active Albuterol Sulfate HFA 108 (90 Base) MCG/ACT Inhalation Aerosol SolutionIndicatio ns:COPD exacerbation ([facility]),Chronic cough Inhale by mouth 2 Puffs every 4 hours as needed for Cough or Shortness of Breath. Reports doesn't help 18 g 2 3 Active Victoza 18 MG/3ML Subcutaneous Solution Pen-injector (Liraglutide)Kimberly cations:Type 2 diabetes mellitus with hemoglobin A1c goal of less than 8.0% ([facility]),Type 2 diabetes mellitus with stage 4 chronic kidney disease, with long-term current use of insulin ([facility]) Inject 1.8 mg under the [...] Extended Release 12 Hour (Mucinex)Indicati ons:COPD exacerbation ([facility]) Take 1 Tablet by mouth 2 times a day as needed for Congestion. Take with plenty of water. Do not cut, crush or chew 40 Tablet 0 3 Active Tresiba FlexTouch 200 UNIT/ML Subcutaneous Solution Pen-injector (Insulin Degludec)Indicati ons:Type 2 diabetes mellitus with hemoglobin A1c goal of less than 8.0% ([facility]) Inject 100 Units under the [...] Atherosclerosis of coronary artery bypass graft of [place] heart with angina pectoris 10/13/2022 Encounter for [...] urinary tr act symptoms 07/13/2001 Atherosclerosis of [place] co ronary artery of [place] heart without angina pectoris Morbid obesity with [...] use aero chamber. Test performed by Dori CHAIR FINISHER CPFT Body mass index (BMI) of 45.0 [...] TIA (transient ischemic attack) 02/04/2016 11/23/2017 Overview: [facility] Anemia of chronic renal failure [...] 07/22/2008 0 Overview: Kianna Lyn RN [phone] Examination following surgery 07/11/2008 Difficult intubation 07/10/2008 02/19/2020 Overview: Patient seen and examined in OR#1.Possible difficult intubation.TM distance about 5 cms.MP 3-4. Will plan FOB electively Due to current situation. EXAMINATION OF PARTICIPANT IN CLINICAL TRIAL-gen omics 07/04/2008 05/30/2009 Overview: Renamed Per Clinical Trials Billing Project. Study Titile: Genomic Markers for Patients with Cardiovascular Disease Project #[id number] PI: Miriam Roque MD Please call [phone] with study related questions Chronic coronary artery [...] at goal 07/04/2008 9 GENOMICS CARDIO RESEARCH OTHER*[id number] 200803/23/2016 Overview: Renamed Per Clinical Trials Billing Project. Study Titile: Genomic Markers for Patients with Cardiovascular Disease Project #[id number] PI: Miriam Roque MD Please call [phone] with study related questions Kidney disease, chronic, [...] mRNA, LNP-s, No Pre serve, 2-Dose Series ([employer]) 12/09/2020,05/09/2020,04/11/2020 COVID-19, LNP-s, No Preserve , Juan [...] EDT Received a TigerText from Miguel Gaytan ([facility] er medical technician) to request that we withdraw this prior [...] call back number * Telephone Encounter - FRANCEHSKA Collins - 11/03/2022 1:31 PM EDT I [...] through/on date: 11/02/2022 Referral (TE) received from: [facility] Thank you, Aviva Lombardo Medication Film Critic 11/03/2022, 9:55 AM * Telephone Encounter - KATHE Tellez - 11/01/2022 12:42 PM EDT [facility] Authorization Submission Submission Information: Medication: SANDOSTATIN LAR DEPOT 10 MG KT Portal used: PromptPA Insurance: [facility] Authorization #/Mendes: [id number] Thank you, Aviva Lombardo Medication Film Critic 11/01/2022, 12:43 PM * Telephone Encounter - Tobin Flowers, certified pest control technician - 11/01/2022 9:22 AM EDT New or re-auth: new Patient Maurisio Beltran needs a prior authorization for their sandostatin through their [facility] insurance. ID: [id number] BIN:[id number] PCN:[id number] Target ship date is n/a. Thank you very much, Elaine Flowers Hair Machine Operator, [facility] 11/01/2022 9:23 AM\\ documented in this encounter Plan of Treatment Upcoming Encounters Date Type Specialty Care Team Description 11/17/2022 Office Visit Pharmacy [address] [place] [address] 11/19/2022 Imaging Radiology 11/22/2022 Imaging Radiology 11/30/2022 Office Visit Urology Denny Armando MD [address] [place] [address] [place] [address] 12/13/2022 Office Visit Cardiology Nevaeh Linda PA-C [address] [place] [address] [place] [address] 12/15/2022 Office Visit Family Medicine Nicola Prado MD [address] [place] [address] [place] [address] 12/20/2022 Office Visit Dermatology Meron Aragon PA-C [address] [place] [address] [place] [address] 01/28/2023 Office Visit Nephrology Verito Jovel PA-C [address] [place] [address] 03/04/2023 Office Visit Gastroenterology Marielena Hall CRNP [address] [place] [address] 03/29/2023 Office Visit Cardiology Blair Hannah PA-C [address] [place] [address] 06/02/2023 Nurse Only Ancillary Neeraj Nurse Annual [address] [place] [address] 10/12/2023 Office Visit Sleep Disorders Eulalia Milligan DO [address] [place] [address] 10/25/2023 Cardiac Studies Cardiology [facility] [address] [place] [address] Scheduled Procedures Name Priority Associated Diagnoses Date/Ti [...] this encounter Medical Devices Implanted Type Area Funeral Pre Arrangement Specialist Device Identifier Shelf Expiration Date Model / Serial / Lot Sut Steel 6 M654g - [id number] Implanted:Qty: 6 on 07/10/[address] [facility] [place] N/A: Chest DO NOT USE 08/14/2012 [id number] / / [id number] documented as of this encounter Additional Health Concerns Infection Onset Date Last Indicated Resolved Time C. difficile Rule-Out 11/05/2022 11/05/20222022 10:17 PM EDT C. 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 No Code Status History Code Status [...] patient or by statute hierarchy) Care Teams Transport Rn Relationship Specialty Start Date End Date Nicola Prado MD [address] [place] [address] [place] [address] PCP - General Family Medicine 06/19/21 documented as of this encounter
--- OUTSIDE RECORDS SUMMARY | 2023-02-03 20:24 | External Medical Summary | Summary of Care ---
Author Name Unknown Organization [facility] Address [address] [place] [address] Phone [phone] Care Team Providers Care Driving Teacher Name Role Phone Nicola Prado MD Primary Care Provide r Encounter Details Date Type Department Care Team Description 11/09/2022 Telephone Eliza Esetban [address] [place] [id number] [facility] [address] [place] [id number] Allergies Active Allergy Reactions Severity Noted Date [...] mouth daily. 90 Tablet 3 12/16/2021 Active PointsticTouch UltraSoft LancetsIndications: Type 2 diabetes mellitus with hemoglobin A1c goal of less than 8.0% ([facility]) Test blood sugar up to five times daily; dx E11.9 450 Each 3 12/17/2021 Active OneTouch Ultra In Vitro Strip (Glucose Blood)Indications:T ype 2 diabetes mellitus with hemoglobin A1c goal of less than 8.0% ([facility]) 3-4 times a day 450 Strip 3 12/17/2021 Active Xiidra 5 % Ophthalmic Solution instill 1 drop by ophthalmic route 2 times every day into both eyes. OK for 90 day supply. 0 01/05/2022 Active NovoLOG FlexPen 100 UNIT/ML Subcutaneous Solution Pen-injector (insulin aspart)Indications: Type 2 diabetes mellitus with hemoglobin A1c goal of less than 8.0% ([facility]) 12 units with breakfast and [...] Tablet 1 05/05/2022 Active Easy Touch Pen [place] 31G X 8 MM (Insulin Pen Needle)Indications: Type 2 diabetes mellitus with hemoglobin A1c goal of less than 8.0% ([facility]),Type 2 diabetes mellitus with stage 4 chronic kidney disease, unspecified whether keno terminal operator insulin use ([facility]) Use up to six times daily with insulin. DXe11.9 600 Each 3 05/22/2022 Active Albuterol Sulfate HFA 108 (90 Base) MCG/ACT Inhalation Aerosol SolutionIndications :COPD exacerbation ([facility]),Chronic cough Inhale by mouth 2 Puffs every 4 hours as needed for Cough or Shortness of Breath. Reports doesn't help 18 g 2 05/27/2022 Active Victoza 18 MG/3ML Subcutaneous Solution Pen-injector (Liraglutide)Indica tions:Type 2 diabetes mellitus with hemoglobin A1c goal of less than 8.0% ([facility]),Type 2 diabetes mellitus with stage 4 chronic kidney disease, with long-term current use of insulin ([facility]) Inject 1.8 mg under the skin daily. 27 mL 3 07/23/2022 Active Furosemide 80 MG Oral Tablet (Lasix) Take 1 Tablet by mouth in the morning. 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[facility]),H/O psoriasis Inject 50 mg under [...] Atherosclerosis of coronary artery bypass graft of [place] heart with angina pectoris 10/13/2022 Encounter for [...] urinary tr act symptoms 07/13/2001 Atherosclerosis of [place] co ronary artery of [place] heart without angina pectoris Morbid obesity with [...] (transient ischemic attack) 02/04/2016 11/23/2017 Overview: [facility] Anemia of chronic renal failure 07/30/2015 [...] MANAGEMENT 07/22/2008 0 Overview: Kianna Lyn RN [phone] Examination following surgery 07/11/2008 Difficult intubation 07/10/2008 02/19/2020 Overview: Patient seen and examined in OR#1.Possible difficult intubation.TM distance about 5 cms.MP 3-4. Will plan FOB electively Due to current situation. EXAMINATION OF PARTICIPANT IN CLINICAL TRIAL-gen omics 07/04/2008 05/30/2009 Overview: Renamed Per Clinical Trials Billing Project. Study Titile: Genomic Markers for Patients with Cardiovascular Disease Project #[id number] PI: Miriam Roque MD Please call [phone] with study related questions Chronic coronary artery [...] at goal 07/04/2008 9 GENOMICS CARDIO RESEARCH OTHER*[id number] 200803/23/2016 Overview: Renamed Per Clinical Trials Billing Project. Study Titile: Genomic Markers for Patients with Cardiovascular Disease Project #[id number] PI: Miriam Roque MD Please call [phone] with study related questions Kidney disease, chronic, [...] mRNA, LNP-s, No Pre serve, 2-Dose Series ([employer]) 12/09/2020,05/09/2020,04/11/2020 COVID-19, LNP-s, No Preserve , Juan [...] Miscellaneous Notes * Telephone Encounter - KATHE Barker - 11/09/2022 3:46 PM EDT Pt scheduled * Telephone Encounter - Niya Higginbotham RPh - 11/09/2022 1:46 PM EDT Dermatology Pharmacist Appointment Request Please schedule patient for Enbrel phone check in with the clinic pharmacist Department & Provider: DERMATOLOGY [address] [] - Pharmacist [address]ermatology [address] [[id number]] Patient to be scheduled for visit type:Telephonic [[id number]] Length of visit: 30 mins Time Frame: within 1-2 weeks Please route this encounter back to Dermatology Pharmacist Pool [[id number]] if unable to schedule patient after 3 attempts. Niya Higginbotham PharmD Medication Therapy Disease Management Dermatology Clinical Pharmacist 11/09/2022, 1:46 PM documented in this encounter Plan of Treatment Upcoming Encounters Date Type Specialty Care Team Description 11/17/2022 Telemedicine Dermatology [place], Pharmacist Dermatology [address] [facility] [address] [facility] [place] [address] 11/17/2022 Office Visit Pharmacy [place], [address] [place] [address] 11/19/2022 Imaging Radiology 11/22/2022 Imaging Radiology 11/30/2022 Office Visit Urology Denny Armando MD [address] [place] [address] [place] [address] 12/13/2022 Office Visit Cardiology Nevaeh Linda PA-C [address] [facility] [place] [address] 12/15/2022 Office Visit Family Medicine Nicola Prado MD [address] [place] [address] [place] [address] 12/20/2022 Office Visit Dermatology Meron Aragon PA-C [address] [place] [address] [place] [address] 01/28/2023 Office Visit Nephrology Verito Jovel PA-C [address] [facility] [place] [address] 03/04/2023 Office Visit Gastroenterology Marielena Hall CRNP [address] [place] [address] 03/29/2023 Office Visit Cardiology Blair Hannah PA-C [address] [place] [address] 06/02/2023 Nurse Only Ancillary [place], Nurse Annual Wellness [address] [place] [address] [place] [address] 10/12/2023 Office Visit Sleep Disorders Eulalia Milligan DO [address] [place] [address] 10/25/2023 [facility] [address] [place] [address] Scheduled Procedures Name Priority Associated Diagnoses Date/Ti [...] this encounter Medical Devices Implanted Type Area Rn Surgery Icu Device Identifier Shelf Expiration Date Model / Serial / Lot Sut Steel 6 M654g - [id number] Implanted:Qty: 6 on 07/10/2008 [place] [facility] [place]A: Chest DO NOT USE 08/14/2012 [id number] / / [id number] documented as of this encounter Additional Health Concerns Infection Onset Date Last Indicated Resolved Time C. 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 No Code Status History Code Status [...] patient or by statute hierarchy) Care Teams Driving Teacher Relationship Specialty Start Date End Date Sellathurai, Thiviyanath, MD [address] [place] [address] [place] [address] PCP - General Family Medicine 06/19/21 documented as of this encounter
--- OUTSIDE RECORDS SUMMARY | 2023-02-03 20:25 | External Medical Summary | Summary of Care ---
Author Name Unknown Organization [facility] Address [address] [place] [address] Phone [phone] Care Team Providers Care Senior Rd Engineer Name Role Phone Nicola Prado MD Primary Care Provide r Reason for Visit * Reason Onset Date Comments Precert In Process 10/29/2022 21 [facility] Mariscal dostatin FYI 10/29/2022 Encounter Details Date Type Department Care Team Description 10/29/2022 Telephone Gastroenterology, [facility] [address] [place] [address] Marielena Giraldo CRNP [address] [place] [address] Precert In Process (21 [facility] Sandostatin)... Allergies Active Allergy Reactions Severity Noted Date Comments Hydromorphone High 09/20/2021 Other reaction(s): Nausea Other reaction(s): Nausea 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/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 Other reaction(s): AMS Other reaction(s): AMS Prasugrel 04/02/2016 bleeding Prednisone High 09/20/2021 Other reaction(s): INCREASE BLOOD SUGAR Other reaction(s): INCREASE BLOOD SUGAR documented as of this encounter (statuses as of 11/04/2022) Medications Medication Sig Dispensed Refills Start Date [...] less than 8.0% ([facility]) 12 units with breakfast and supper PLUS [...] Tablet 1 3 Active Easy Touch Pen [place] 31G X 8 MM (Insulin Pen Needle)Indication s:Type 2 diabetes mellitus with hemoglobin A1c goal of less than 8.0% ([facility]),Type 2 diabetes mellitus with stage 4 chronic kidney disease, unspecified whether extermination supervisor insulin use ([facility]) Use up to six times daily with insulin. DXe11.9 600 Each 3 3 Active Albuterol Sulfate HFA 108 (90 Base) MCG/ACT Inhalation Aerosol SolutionIndicatio ns:COPD exacerbation ([facility]),Chronic cough Inhale by mouth 2 Puffs every 4 hours as needed for Cough or Shortness of Breath. Reports doesn't help 18 g 2 3 Active Victoza 18 MG/3ML Subcutaneous Solution Pen-injector (Liraglutide)Kimberly cations:Type 2 diabetes mellitus with hemoglobin A1c goal of less than 8.0% ([facility]),Type 2 diabetes mellitus with stage 4 chronic kidney disease, with long-term current use of insulin ([facility]) Inject 1.8 mg under the skin daily. [...] as of this encounter (statuses as of 11/04/2022) Active Problems Problem Noted Date Atherosclerosis of [...] as of this encounter (statuses as of 11/04/2022) Resolved Problems Problem Noted Date Resolved Date [...] 02/04/2016 11/23/2017 Overview: [facility] Anemia of chronic renal failure 07/30/2015 01/27/2017 [...] MANAGEMENT 07/22/2008 0 Overview: Kianna Lyn RN [phone] Examination following surgery 07/11/2008 Difficult intubation 07/10/2008 02/19/2020 Overview: Patient seen and examined in OR#1.Possible difficult intubation.TM distance about 5 cms.MP 3-4. Will plan FOB electively Due to current situation. EXAMINATION OF PARTICIPANT IN CLINICAL TRIAL-gen omics 07/04/2008 05/30/2009 Overview: Renamed Per Clinical Trials Billing Project. Study Titile: Genomic Markers for Patients with Cardiovascular Disease Project #[id number] PI: Miriam Roque MD Please call [phone] with study related questions Chronic coronary artery [...] at goal 07/04/2008 9 GENOMICS CARDIO RESEARCH OTHER*[id number] 200803/23/2016 Overview: Renamed Per Clinical Trials Billing Project. Study Titile: Genomic Markers for Patients with Cardiovascular Disease Project #[id number] PI: Miriam Roque MD Please call [phone] with study related questions Kidney disease, chronic, [...] as of this encounter (statuses as of 11/04/2022) Immunizations Name Administration Dates Next Due COVID-19 [...] encounter Miscellaneous Notes * Telephone Encounter - Adina Wu RN - 11/04/2022 4:26 PM EDT I think this is in relation to the denial of the IM octreotide as I told him recently why it was denied. I do not believe he has any of the conditions that are approved for that medication. Nurses please follow up with patient Tuesday to explain * Telephone Encounter - KATHE Henry - [...] IM injection arranged. Reports he has a HH nurse that comes twice a month and he is asking if we can help arrange her to do this. I reported I am not sure if they can but I can inquire about this. It looks like this may require a prior auth. Let try a PA before we see if we can arrange this through his HH. He uses [employer] He provided me with [phone] Gastro Pre-Cert Request Specialty Medication: No. Medication/Disease State Information: Medication: Octreotide Acetate 10 MG Intramuscular Kit (SandoSTATIN LAR [place]) 1 Kit 12 10/29/2022 Sig - Route: Inject 10 mg into a large muscle every month. - Intramuscular Diagnosis (including ICD-10): D64.9 Anemia Site of care: Self-administered - route pre-cert request to [id number] Office Information: Prescriber: FRANCHESKA Collins Marielena can you provide a short script for [...] a script of the OCtreotide LAR to [facility] specialty pharmacy. May need prior auth [...] Specialty Care Team Description 11/17/2022 Office Visit [address] [place] [address] 11/19/2022 Imaging Radiology 11/22/2022 Imaging Radiology 11/30/2022 Office Visit Urology Denny Armando MD [address] [place] [address] 12/13/2022 Office Visit Cardiology Nevaeh Linda PA-C [address] [facility] [place] [address] 12/15/2022 Office Visit Family Medicine Nicola Prado MD [address] [place] [address] [place] [address] 12/20/2022 Office Visit Dermatology Meron Aragon PA-C [address] [place] [address] [place] [address] 01/28/2023 Office Visit [facility]phrology [facility] [address] 03/04/2023 Office Visit Gastroenterology Marielena Giraldo CRNP [address] [place] [address] 03/29/2023 Office Visit Cardiology Blair Hannah PA-C [address] [place] [address] 06/02/2023 Nurse Only Ancillary Neeraj, Nurse [facility] [address] [place] [address] [place] [address] 10/12/2023 Office Visit Sleep Disorders Eulalia Milligan DO [address] [place] [address] 10/25/2023 Cardiac Studies Cardiology [address] [place] [address] Scheduled Procedures Name Priority Associated Diagnoses Date/Ti [...] this encounter Medical Devices Implanted Type Area Assistant Director Of Admissions Device Identifier Shelf Expiration Date Model / Serial / Lot Sut Steel 6 [id number] - [id number] Implanted:Qty: 6 on 07/10/2008 at OR [facility] N/A: Chest DO NOT USE 08/14/2012 [id number] / / [id number] documented as of this encounter Advance Directives Documents on File Type Date Recorded Patient Pipe Fitter Soft Copper Expl anation Power of Accountant Supervisor 06/26/2019 POWER OF A TTORNEY Advance [...] patient have Health Care Power of Accountant Supervisor? No Code Status History Code Status Date Activated Date Inactivated Comments Full Code 07/10/2008 6:37 PM 07/21/2008 4:52 PM This order reflects the patients wishes and were consensually agreed upon. Full Code 07/04/2008 2:18 PM 07/10/2008 6:30 PM Healthcare Agents on File Name Relationship Healthcare Agent Relationshi p Communication Shane Beltran Adult Child Health Care Repr esentative (appointed verbally by patient or by statute hierarchy) Care Teams Senior Rd Engineer Relationship Specialty Start Date End Date Nicola Prado MD [address] [place] [address] [place] [address] PCP - General Family Medicine 06/19/21 documented as of this encounter
--- OUTSIDE RECORDS SUMMARY | 2023-02-03 20:25 | External Medical Summary | Summary of Care ---
Author Name Unknown Organization [facility] Address [address] [place] [address] Phone [phone] Care Team Providers Care Auto Machinist Name Role Phone Nicola Prado MD Primary Care Provide r Reason for Visit * Reason Comments Outpatient Testing Encounter Details Date Type Department Care Team Description 11/05/2022 Laboratory Laboratory [address] [place] [address] , Specimen Drop Off [address] [place] [address] Diarrhea, unspecified type Allergies Active Allergy Reactions Severity Noted Date Comments Hydromorphone High 09/20/2021 Other reaction(s): Nausea Other reaction(s): Nausea 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/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 Other reaction(s): AMS Other reaction(s): AMS Prasugrel 04/02/2016 bleeding Prednisone High 09/20/2021 Other reaction(s): INCREASE BLOOD SUGAR Other reaction(s): INCREASE BLOOD SUGAR documented as of this encounter (statuses as of 11/05/2022) Medications Medication Sig Dispensed Refills Start Date [...] Tablet 1 05/05/2022 Active Easy Touch Pen [place] 31G X 8 MM (Insulin Pen Needle)Indications: Type 2 diabetes mellitus with hemoglobin A1c goal of less than 8.0% ([facility]),Type 2 diabetes mellitus with stage 4 chronic kidney disease, unspecified whether occupational ther insulin use ([facility]) Use up to six times daily with insulin. DXe11.9 600 Each 3 05/22/2022 Active Albuterol Sulfate HFA 108 (90 Base) MCG/ACT Inhalation Aerosol SolutionIndications :COPD exacerbation ([facility]),Chronic cough Inhale by mouth 2 Puffs [...] Solution Auto-injector (Enbrel Sureclick)Indicatio ns: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HCC),H/O psoriasis Inject 50 mg [...] 12 Hour (Mucinex)Indication s:COPD exacerbation ([facility]) Take 1 [...] days. 20 Tablet 0 11/03/2022 11/13/2022 Active Hospital, Clinic, or Other Facility Administered [...] as of this encounter (statuses as of 11/05/2022) Active Problems Problem Noted Date Atherosclerosis of coronary artery bypass graft of [place] heart with angina pectoris 10/13/2022 Encounter for [...] urinary tr act symptoms 07/13/2001 Atherosclerosis of [place] co ronary artery of [place] heart without angina pectoris Morbid obesity with BMI of 40.0-44.9, ad ult documented as of this encounter (statuses as of 11/05/2022) Resolved Problems Problem Noted Date Resolved Date [...] use aero chamber. Test performed by Dori GREENHOUSE INSTRUCTOR CPFT Body mass index (BMI) of 45.0 [...] TIA (transient ischemic attack) 02/04/2016 11/23/2017 Overview: [facility] Anemia of chronic renal failure [...] 07/22/2008 0 Overview: Kianna Lyn RN [phone] Examination following surgery 07/11/2008 Difficult intubation 07/10/2008 02/19/2020 Overview: Patient seen and examined in OR#1.Possible difficult intubation.TM distance about 5 cms.MP 3-4. Will plan FOB electively Due to current situation. EXAMINATION OF PARTICIPANT IN CLINICAL TRIAL-gen omics 07/04/2008 05/30/2009 Overview: Renamed Per Clinical Trials Billing Project. Study Titile: Genomic Markers for Patients with Cardiovascular Disease Project #[id number] PI: Miriam Roque MD Please call [phone] with study related questions Chronic coronary artery [...] at goal 07/04/2008 9 GENOMICS CARDIO RESEARCH OTHER*[id number] 200803/23/2016 Overview: Renamed Per Clinical Trials Billing Project. Study Titile: Genomic Markers for Patients with Cardiovascular Disease Project #[id number] PI: Miriam Roque MD Please call [phone] with study related questions Kidney disease, chronic, [...] as of this encounter (statuses as of 11/05/2022) Immunizations Name Administration Dates Next Due COVID-19 mRNA, LNP-s, No Pre serve, 2-Dose Series (K94 Discoveries) 12/09/2020,05/09/2020,04/11/2020 COVID-19, LNP-s, No Preserve , Juan [...] Specialty Care Team Description 11/17/2022 Office Visit [address] [place] [address] 11/19/2022 Imaging Radiology 11/22/2022 Imaging Radiology 11/30/2022 Office Visit Urology Denny Armando MD [address] [address] [place] [address] 12/13/2022 Office Visit Cardiology Nevaeh Linda PA-C [address] [facility] [place] [address] 12/15/2022 Office Visit Family Medicine Nicola Prado MD [address] [place] [address] [place] [address] 12/20/2022 Office Visit Dermatology Meron Aragon PA-C [address] [place] [address] [place] [address] 01/28/2023 Office Visit Nephrology [facility]vel [facility]C [address] [facility] [address] 03/04/2023 Office Visit Gastroenterology Marielena Hall CRNP [address] [place] [address] 03/29/2023 Office Visit Cardiology Blair Hannah PA-C [address] [place] [address] 06/02/2023 Nurse Only Ancillary Nurse Neeraj Annual [address] [place] [address] 10/12/2023 Office Visit Sleep Disorders Eulalia Milligan DO [address] [place] [address] 10/25/2023 Cardiac Studies Cardiology Keith Pickard [facility] [address] [place] [address] Pending Results Name Type Priority Associated Diagnoses Date /Time CLOSTRIDIUM DIFFICILE, PCR Lab Routine Diarrhea, unspecified type 11/05/2022 3:21 PM EDT Scheduled Procedures Name Priority Associated Diagnoses Date/Ti hi ESOPHAGOGASTRODUODENOSCOPY ( EGD), FLEXIBLE, TRANSORAL, DIAGNOSTIC Recall [...] this encounter Medical Devices Implanted Type Area Enamel Applier Device Identifier Shelf Expiration Date Model / Serial / Lot Sut Steel 6 M654g - [id number] Implanted:Qty: 6 on 07/10/[place] [facility] [place]A: Chest DO NOT USE 08/14/2012 [id number] / / [id number] documented as of this encounter Visit Diagnoses Diagnosis Diarrhea, unspecified type documented in this encounter Additional Health Concerns Infection Onset Date Last Indicated Resolved Time C. difficile Rule-Out 11/05/2022 11/05/2022 documented as of this encounter Advance Directives Documents on File Type Date Recorded Patient Inventory Control/Shipping Receiving Expl anation Power of Boom Stick Man 06/26/2019 POWER OF A TTORNEY Advance Directives [...] the patient have Health Care Power of Boom Stick Man? No Code Status History Code Status Date [...] or by statute hierarchy) Care Teams Auto Machinist Relationship Specialty Start Date End Date Nicola Prado MD [address] [place] [address] [place] [address] PCP - General Family Medicine 06/19/21 documented as of this encounter
--- OUTSIDE RECORDS SUMMARY | 2023-02-03 20:25 | External Medical Summary | Summary of Care ---
Author Name Unknown Organization [facility] Address [address] [place] [address] Phone [phone] Care Team Providers Care Power House Engineer Name Role Phone Nicola Prado MD Primary Care Provide r Reason for Visit * Reason Onset Date Comments Precert In Process 10/29/2022 21 [facility] Mariscal dostatin Encounter Details Date Type Department Care Team Description 10/29/2022 Telephone Gastroenterology, [facility] [address] [place] [address] Marielena Giraldo CRNP [address] [place] [address] Precert In Process (21 [facility] Sandostatin) Allergies Active Allergy Reactions Severity Noted Date [...] than 8.0% ([facility]) 3-4 times a day [...] Tablet 1 3 Active Easy Touch Pen [place] 31G X 8 MM (Insulin Pen Needle)Indication [...] MCG/ACT Inhalation Aerosol SolutionIndicatio ns:COPD exacerbation ([facility]),Chronic cough Inhale by mouth [...] Release 12 Hour (Mucinex)Indicati ons:COPD exacerbation ([facility]) Take [...] Atherosclerosis of coronary artery bypass graft of [place] heart with angina pectoris 10/13/2022 Encounter for [...] urinary tr act symptoms 07/13/2001 Atherosclerosis of hoh co ronary artery of hoh heart without angina pectoris Morbid obesity with [...] MANAGEMENT 07/22/2008 0 Overview: Kianna Lyn RN [phone] Examination following surgery 07/11/2008 Difficult intubation 07/10/2008 02/19/2020 Overview: Patient seen and examined in OR#1.Possible difficult intubation.TM distance about 5 cms.MP 3-4. Will plan FOB electively Due to current situation. EXAMINATION OF PARTICIPANT IN CLINICAL TRIAL-gen omics 07/04/2008 05/30/2009 Overview: Renamed Per Clinical Trials Billing Project. Study Titile: Genomic Markers for Patients with Cardiovascular Disease Project #[id number] PI: Miriam Roque MD Please call [phone] with study related questions Chronic coronary artery [...] at goal 07/04/2008 9 GENOMICS CARDIO RESEARCH OTHER*[id number] 200803/23/2016 Overview: Renamed Per Clinical Trials Billing Project. Study Titile: Genomic Markers for Patients with Cardiovascular Disease Project #[id number] PI: Miriam Roque MD Please call [phone] with study related questions Kidney disease, chronic, [...] arrange this through his HH. He uses [employer] He provided me with [phone] Gastro Pre-Cert Request Specialty Medication: No. Medication/Disease State Information: Medication: Octreotide Acetate 10 MG Intramuscular Kit (SandoSTATIN LAR [place]) 1 Kit 12 10/29/2022 Sig - Route: Inject 10 mg into a large muscle every month. - Intramuscular Diagnosis (including ICD-10): D64.9 Anemia Site of care: Self-administered - route pre-cert request to [id number] Office Information: Prescriber: FRANCHESKA Collins Marielena can [...] a script of the OCtreotide LAR to [facility] specialty pharmacy. May need prior auth for [...] Specialty Care Team Description 11/17/2022 Office Visit [address] [place] [address] 11/19/2022 Imaging Radiology 11/22/2022 Imaging Radiology 11/30/2022 Office Visit Urology Denny Armando MD [address] [address] [place] [address] 12/13/2022 Office Visit Cardiology Nevaeh Linda PA-C [address] [place] [address] 12/15/2022 Office Visit Family Medicine Nicola Prado MD [address] [place] [address] [place] [address] 12/20/2022 Office Visit Dermatology Meron Aragon PA-C [address] [place] [address] [place] [address] 01/28/2023 Office Visit Nephrology Verito [facility]C [address] [facility] [address] 03/04/2023 Office Visit Gastroenterology Marielena Giraldo CRNP [address] [place] [address] 03/29/2023 Office Visit Cardiology Blair Hannah PA-C [address] [place] [address] 06/02/2023 Nurse Only Ancillary Nurse Neeraj [facility] [address] [place] [address] [place] [address] 10/12/2023 Office Visit Sleep Disorders Eulalia Milligan DO [address] [place] [address] 10/25/2023 Cardiac Studies Cardiology Keith Pickard [facility] [address] [place] [address] Scheduled Procedures Name Priority Associated Diagnoses Date/Ti [...] this encounter Medical Devices Implanted Type Area Metal Model Builder Device Identifier Shelf Expiration Date Model / Serial / Lot Sut Steel 6 M654g - [id number] Implanted:Qty: 6 on 07/10/2008 at OR [facility] [place] N/A: Chest DO NOT USE 08/14/2012 [id number] / / [id number] documented as of this encounter Advance Directives Documents on File Type Date Recorded Patient Gift Shop Manager Expl anation Power of Tank Terminal Gauger 06/26/2019 POWER OF A TTORNEY Advance Directives [...] the patient have Health Care Power of Tank Terminal Gauger? No Code Status History Code Status Date [...] or by statute hierarchy) Care Teams Power House Engineer Relationship Specialty Start Date End Date Nicola Prado MD [address] [place] [address] [place] [address] PCP - General Family Medicine 06/19/21 documented as of this encounter
--- OUTSIDE RECORDS SUMMARY | 2023-02-03 20:25 | External Medical Summary ---
Author Name Unknown Address Unknown Organization K01:[facility] [place] [address] [facility] [id number] Laboratory Report Ordering Provider Test Date Status BENJAMIN CREWS 11/05/2022 15:21:20 Final Observation Date Value Abnormality Reference (Units) Status Source 11/05/2022 15:21:20 Semi-formed Final Clostridioides difficile toxin and BI-[id number] strain DNA panel - Stool by PARMINDER with probe detection 11/05/2022 15:21:20 Positive for C. difficile toxin B gene DNA by PCR (Amplified Probe). Presumptive negative for C. difficile 027-NAP1-B1 strain by PCR (Amplified Probe). Abnormal Negative Final Performing Location [facility] [place] [address] [facility] [address]
--- OUTSIDE RECORDS SUMMARY | 2023-02-03 20:25 | External Medical Summary | Summary of Care ---
Author Name Unknown Organization [facility] Address [address] [place] [address] Phone [phone] Care Team Providers Care Airline Pilot Flight Instructor Name Role Phone Nicola Prado MD Primary Care Provide r Reason for Visit * Reason Onset Date Comments Precert In Process 10/29/2022 21 [facility] Mariscal dostatin FYI 10/29/2022 Encounter Details Date Type Department Care Team Description 10/29/2022 Telephone Gastroenterology, [facility] [address] [place] [address] Marielena Giraldo CRNP [address] [place] [address] Precert In Process (21 [facility] Sandostatin)... Allergies Active Allergy Reactions Severity [...] A1c goal of less than 8.0% ([facility]) Test blood sugar up to five times daily; dx E11.9 450 Each 3 2 Active OneTouch Ultra In Vitro Strip (Glucose Blood)Indications :Type 2 diabetes mellitus with hemoglobin A1c goal of less than 8.0% ([facility]) 3-4 times a day 450 Strip 3 2 Active Xiidra 5 % Ophthalmic Solution instill 1 drop by ophthalmic route 2 times every day into both eyes. OK for 90 day supply. 0 2 Active NovoLOG FlexPen 100 UNIT/ML Subcutaneous Solution Pen-injector (insulin aspart)Indication s:Type 2 diabetes mellitus with hemoglobin A1c goal of less than 8.0% ([facility]) 12 units with breakfast and [...] Tablet 1 3 Active Easy Touch Pen [place] 31G X 8 MM (Insulin Pen Needle)Indication s:Type 2 diabetes mellitus with hemoglobin A1c goal of less than 8.0% ([facility]),Type 2 diabetes mellitus with stage 4 chronic kidney disease, unspecified whether intermodal dispatcher insulin use ([facility]) Use up to six times daily with insulin. DXe11.9 600 Each 3 3 Active Albuterol Sulfate HFA 108 (90 Base) MCG/ACT Inhalation Aerosol SolutionIndicatio ns:COPD exacerbation ([facility]),Chronic cough Inhale by mouth 2 Puffs every 4 hours as needed for Cough or Shortness of Breath. Reports doesn't help 18 g 2 3 Active Victoza 18 MG/3ML Subcutaneous Solution Pen-injector (Liraglutide)Kimberly cations:Type 2 diabetes mellitus with hemoglobin A1c goal of less than 8.0% ([facility]),Type 2 diabetes mellitus with stage 4 chronic kidney disease, with long-term current use of insulin ([facility]) Inject 1.8 mg under the [...] Release 12 Hour (Mucinex)Indicati ons:COPD exacerbation ([facility]) Take 1 Tablet by mouth 2 times a day as needed for Congestion. Take with plenty of water. Do not cut, crush or chew 40 Tablet 0 3 Active Tresiba FlexTouch 200 UNIT/ML Subcutaneous Solution Pen-injector (Insulin Degludec)Indicati ons:Type 2 diabetes mellitus with hemoglobin A1c goal of less than 8.0% ([facility]) Inject 100 Units under the [...] Atherosclerosis of coronary artery bypass graft of [place] heart with angina pectoris 10/13/2022 Encounter for [...] urinary tr act symptoms 07/13/2001 Atherosclerosis of [place] co ronary artery of [place] heart without angina pectoris Morbid obesity with [...] MANAGEMENT 07/22/2008 0 Overview: Kianna Lyn RN [phone] Examination following surgery 07/11/2008 Difficult intubation 07/10/2008 02/19/2020 Overview: Patient seen and examined in OR#1.Possible difficult intubation.TM distance about 5 cms.MP 3-4. Will plan FOB electively Due to current situation. EXAMINATION OF PARTICIPANT IN CLINICAL TRIAL-gen omics 07/04/2008 05/30/2009 Overview: Renamed Per Clinical Trials Billing Project. Study Titile: Genomic Markers for Patients with Cardiovascular Disease Project #[id number] PI: Miriam Roque MD Please call [phone] with study related questions Chronic coronary artery [...] at goal 07/04/2008 9 [facility]OM[facility] CARDIO RESEARCH OTHER*[id number] 200803/23/2016 Overview: Renamed Per Clinical Trials Billing Project. Study Titile: Genomic Markers for Patients with Cardiovascular Disease Project #[id number] PI: Miriam Roque MD Please call [phone] with study related questions Kidney disease, chronic, [...] Miscellaneous Notes * Telephone Encounter - KATHE Henry - [...] arrange this through his HH. He uses [facility] He provided me with [phone] Gastro Pre-Cert Request Specialty Medication: No. Medication/Disease State Information: Medication: Octreotide Acetate 10 MG Intramuscular Kit (SandoSTATIN LAR [place]) 1 Kit 12 10/29/2022 Sig - Route: Inject 10 mg into a large muscle every month. - Intramuscular Diagnosis (including ICD-10): D64.9 Anemia Site of care: Self-administered - route pre-cert request to [id number] Office Information: Prescriber: FRANCHESKA Collins can you [...] a script of the OCtreotide LAR to [facility] specialty pharmacy. May need prior auth for [...] Specialty Care Team Description 11/17/2022 Office Visit [address] [place] [address] 11/19/2022 Imaging Radiology 11/22/2022 Imaging Radiology 11/30/2022 Office Visit Urology Denny Armando MD 27 [facility] [address] [place] [id number] 12/13/2022 Office Visit Cardiology Nevaeh Linda PA-C [address] [place] [address] 12/15/2022 Office Visit Family Medicine Nicola Prado MD [address] [place] [address] [place] [address] 12/20/2022 Office Visit Dermatology Meron Aragon PA-C [address] [place] [address] [place] [address] 01/28/2023 [facility] [address] 03/04/2023 Office Visit Gastroenterology Marielena Giraldo CRNP [address] [place] [address] 03/29/2023 Office Visit Cardiology Blair Hannah PA-C [address] [place] [address] 06/02/2023 Nurse Only Ancillary Nurse Neeraj [address] [place] [address] 10/12/2023 Office Visit Sleep Disorders Eulalia Milligan DO [address] [place] [address] 10/25/2023 Cardiac Studies Cardiology Keith Pickard [facility] [address] [place] [address] Scheduled Procedures Name Priority Associated Diagnoses Date/Ti [...] this encounter Medical Devices Implanted Type Area Electrical Tester Device Identifier Shelf Expiration Date Model / Serial / Lot Sut Steel 6 [id number] - [id number] [place]ed:Q[place] 6 [place] [facility] [place] Chest DO NOT USE 08/14/2012 [id number] / / [id number] documented as of this encounter Advance Directives Documents on File Type Date Recorded Patient Bartenders Expl anation Power of Relationship Counselor 06/26/2019 POWER OF A TTORNEY Advance Directives [...] the patient have Health Care Power of Relationship Counselor? No Code Status History Code Status Date [...] patient or by statute hierarchy) Care Teams Airline Pilot Flight Instructor Relationship Specialty Start Date End Date Nicola Prado MD [address] [place] [address] [place] [phone] PCP - General Family Medicine 06/19/21 documented as of this encounter
--- OUTSIDE RECORDS SUMMARY | 2023-02-03 20:25 | External Medical Summary | Summary of Care ---
Author Name Unknown Organization [facility] Address [address] [place] [address] Phone [phone] Care Team Providers Care Engineer Of System Development Name Role Phone Nicola Prado MD Primary Care Provide r Reason for Visit * Reason Onset Date Comments Precert In Process 10/29/2022 21 [facility] Mariscal dostatin FYI 10/29/2022 Encounter Details Date Type Department Care Team Description 10/29/2022 Telephone Gastroenterology, [facility] [address] [place] [address] Marielena Giraldo CRNP [address] [place] [address] Precert In Process (21 [facility] Sandostatin)... Allergies Active Allergy Reactions Severity Noted [...] 8.0% ([facility]) 3-4 times a day 450 Strip 3 2 Active Xiidra 5 % Ophthalmic Solution instill 1 drop by ophthalmic route 2 times every day into both eyes. OK for 90 day supply. 0 2 Active NovoLOG FlexPen 100 UNIT/ML Subcutaneous Solution Pen-injector (insulin aspart)Indication s:Type 2 diabetes mellitus with hemoglobin A1c goal of less than 8.0% ([facility]) 12 units with breakfast and supper PLUS [...] Tablet 1 3 Active Easy Touch Pen [place] 31G X 8 MM (Insulin Pen Needle)Indication s:Type 2 diabetes mellitus with hemoglobin A1c goal of less than 8.0% ([facility]),Type 2 diabetes mellitus with stage 4 chronic kidney disease, unspecified whether buttermaker insulin use ([facility]) Use up to six times daily with insulin. DXe11.9 600 Each 3 3 Active Albuterol Sulfate HFA 108 (90 Base) MCG/ACT Inhalation Aerosol SolutionIndicatio ns:COPD exacerbation ([facility]),Chronic cough Inhale by mouth 2 Puffs every [...] Release 12 Hour (Mucinex)Indicati ons:COPD exacerbation ([facility]) Take 1 Tablet by mouth 2 times [...] Atherosclerosis of coronary artery bypass graft of [place] heart with angina pectoris 10/13/2022 Encounter for [...] urinary tr act symptoms 07/13/2001 Atherosclerosis of [place] co ronary artery of [place] heart without angina pectoris Morbid obesity with [...] (transient ischemic attack) 02/04/2016 11/23/2017 Overview: [facility] Anemia of chronic renal failure 07/30/2015 01/27/2017 [...] 07/22/2008 0 Overview: Kianna Lyn RN [phone] Examination following surgery 07/11/2008 Difficult intubation 07/10/2008 02/19/2020 Overview: Patient seen and examined in OR#1.Possible difficult intubation.TM distance about 5 cms.MP 3-4. Will plan FOB electively Due to current situation. EXAMINATION OF PARTICIPANT IN CLINICAL TRIAL-gen omics 07/04/2008 05/30/2009 Overview: Renamed Per Clinical Trials Billing Project. Study Titile: Genomic Markers for Patients with Cardiovascular Disease Project #[id number] PI: Miriam Roque MD Please call [phone] with study related questions Chronic coronary artery [...] at goal 07/04/2008 9 GENOMICS CARDIO RESEARCH OTHER*[id number] 200803/23/2016 Overview: Renamed Per Clinical Trials Billing Project. Study Titile: Genomic Markers for Patients with Cardiovascular Disease Project #[id number] PI: Miriam Roque MD Please call [phone] with study related questions Kidney disease, chronic, [...] arrange this through his HH. He uses [facility] He provided me with [phone] Gastro Pre-Cert Request Specialty Medication: No. Medication/Disease State Information: Medication: Octreotide Acetate 10 MG Intramuscular Kit (SandoSTATIN LAR [place]) 1 Kit 12 10/29/2022 Sig - Route: Inject 10 mg into a large muscle every month. - Intramuscular Diagnosis (including ICD-10): D64.9 Anemia Site of care: Self-administered - route pre-cert request to [id number] Office Information: Prescriber: FRANCHESKA Collins Marielena can [...] a script of the OCtreotide LAR to [facility] specialty pharmacy. May need prior auth [...] Care Team Description 11/17/2022 Office Visit [address] [place] [address] 11/19/2022 Imaging Radiology 11/22/2022 Imaging Radiology 11/30/2022 Office Visit Urology Denny Armando MD [address] [place] [address] [place] [address] 12/13/2022 Office Visit Cardiology Nevaeh Linda PA-C 400 [facility] [place] [address] 12/15/2022 Office Visit Family Medicine Nicola Prado MD [address] [place] [address] [place] [address] 12/20/2022 Office Visit Dermatology Meron Aragon PA-C [address] [place] [address] [place] [address] 01/28/2023 Office Visit [facility]phrology [facility] [address] 03/04/2023 Office Visit Gastroenterology Marielena Giraldo CRNP [address] [place] [address] 03/29/2023 Office Visit Cardiology Blair Hannah PA-C [address] [place] [address] 06/02/2023 Nurse Only Ancillary Neeraj, Nurse [facility] [address] [place] [address] [place] [address] 10/12/2023 Office Visit Sleep Disorders Eulalia Milligan DO [address] [place] [address] 10/25/2023 Cardiac Studies Cardiology [address] [place] [address] Scheduled Procedures Name Priority Associated Diagnoses Date/Ti [...] this encounter Medical Devices Implanted Type Area Shank Breaker Device Identifier Shelf Expiration Date Model / Serial / Lot Sut Steel 6 [id number] - [id number] Implanted:Qty: 6 on 07/10/2008 at OR [facility] [place] N/A: Chest DO NOT USE 08/14/2012 [id number] / / [id number] documented as of this encounter Additional Health Concerns Infection Onset Date Last Indicated Resolved Time C. difficile Rule-Out 11/05/2022 11/05/2022 documented as of this encounter Advance Directives Documents on File Type Date Recorded Patient Sledger Expl anation Power of Chassis Driver 06/26/2019 POWER OF A TTORNEY Advance [...] the patient have Health Care Power of Chassis Driver? No Code Status History Code Status [...] patient or by statute hierarchy) Care Teams Engineer Of System Development Relationship Specialty Start Date End Date Nicola Prado MD [address] [place] [address] [place] [address] PCP - General Family Medicine 06/19/21 documented as of this encounter
--- OUTSIDE RECORDS SUMMARY | 2023-02-03 20:25 | External Medical Summary | Summary of Care ---
Author Name Unknown Organization [facility] Address [address] [place] [address] Phone [phone] Care Team Providers Care Automotive Collision Estimator Name Role Phone Nicola Prado MD Primary Care Provide r Reason for Visit * Reason Onset Date Comments Precert In Process 10/29/2022 21 [facility] Mariscal dostatin FYI 10/29/2022 Encounter Details Date Type Department Care Team Description 10/29/2022 Telephone Gastroenterology, [facility] [address] [place] [address] Marielena Giraldo CRNP [address] [place] [address] Precert In Process (21 [facility] Sandostatin)... Allergies Active Allergy Reactions Severity [...] goal of less than 8.0% ([facility]) Test blood sugar up to five times daily; dx E11.9 450 Each 3 2 Active OneTouch Ultra In Vitro Strip (Glucose Blood)Indications :Type 2 diabetes mellitus with hemoglobin A1c goal of less than 8.0% ([facility]) 3-4 times a day 450 Strip 3 2 Active Xiidra 5 % Ophthalmic Solution instill 1 drop by ophthalmic route 2 times every day into both eyes. OK for 90 day supply. 0 2 Active NovoLOG FlexPen 100 UNIT/ML Subcutaneous Solution Pen-injector (insulin aspart)Indication s:Type 2 diabetes mellitus with hemoglobin A1c goal of less than 8.0% ([facility]) 12 units with breakfast and supper [...] Tablet 1 3 Active Easy Touch Pen [place] 31G X 8 MM (Insulin Pen Needle)Indication s:Type 2 diabetes mellitus with hemoglobin A1c goal of less than 8.0% ([facility]),Type 2 diabetes mellitus with stage 4 chronic kidney disease, unspecified whether longwall foreman insulin use ([facility]) Use up to six times daily with insulin. DXe11.9 600 Each 3 3 Active Albuterol Sulfate HFA 108 (90 Base) MCG/ACT Inhalation Aerosol SolutionIndicatio ns:COPD exacerbation ([facility]),Chronic cough Inhale by mouth 2 Puffs every 4 hours as needed for Cough or Shortness of Breath. Reports doesn't help 18 g 2 3 Active Victoza 18 MG/3ML Subcutaneous Solution Pen-injector (Liraglutide)Kimberly cations:Type 2 diabetes mellitus with hemoglobin A1c goal of less than 8.0% ([facility]),Type 2 diabetes mellitus with stage 4 chronic kidney disease, with long-term current use of insulin ([facility]) Inject 1.8 mg under the skin [...] 12 Hour (Mucinex)Indicati ons:COPD exacerbation ([facility]) Take 1 Tablet by mouth 2 times a day as needed for Congestion. Take with plenty of water. Do not cut, crush or chew 40 Tablet 0 3 Active Tresiba FlexTouch 200 UNIT/ML Subcutaneous Solution Pen-injector (Insulin Degludec)Indicati ons:Type 2 diabetes mellitus with hemoglobin A1c goal of less than 8.0% ([facility]) Inject 100 Units under the skin [...] Atherosclerosis of coronary artery bypass graft of [place] heart with angina pectoris 10/13/2022 Encounter for [...] urinary tr act symptoms 07/13/2001 Atherosclerosis of [place] co ronary artery of [place] heart without angina pectoris Morbid obesity with [...] MANAGEMENT 07/22/2008 0 Overview: Kianna Lyn RN [phone] Examination following surgery 07/11/2008 Difficult intubation 07/10/2008 02/19/2020 Overview: Patient seen and examined in OR#1.Possible difficult intubation.TM distance about 5 cms.MP 3-4. Will plan FOB electively Due to current situation. EXAMINATION OF PARTICIPANT IN CLINICAL TRIAL-gen omics 07/04/2008 05/30/2009 Overview: Renamed Per Clinical Trials Billing Project. Study Titile: Genomic Markers for Patients with Cardiovascular Disease Project #[id number] PI: Miriam Roque MD Please call [phone] with study related questions Chronic coronary artery [...] at goal 07/04/2008 9 GENOMICS CARDIO RESEARCH OTHER*[id number] 200803/23/2016 Overview: Renamed Per Clinical Trials Billing Project. Study Titile: Genomic Markers for Patients with Cardiovascular Disease Project #[id number] PI: Miriam Roque MD Please call [phone] with study related questions Kidney disease, chronic, [...] arrange this through his HH. He uses [facility] He provided me with [phone] Gastro Pre-Cert Request Specialty Medication: No. Medication/Disease State Information: Medication: Octreotide Acetate 10 MG Intramuscular Kit (SandoSTATIN LAR [place]) 1 Kit 12 10/29/2022 Sig - Route: Inject 10 mg into a large muscle every month. - Intramuscular Diagnosis (including ICD-10): D64.9 Anemia Site of care: Self-administered - route pre-cert request to [id number] Office Information: Prescriber: FRANCHESKA Collins can you [...] a script of the OCtreotide LAR to [facility] specialty pharmacy. May need prior auth for [...] Specialty Care Team Description 11/17/2022 Office Visit [address] [place] [address] 11/19/2022 Imaging Radiology 11/22/2022 Imaging Radiology 11/30/2022 Office Visit Urology Denny Armando MD 27 [facility] [address] [place] [id number] 12/13/2022 Office Visit Cardiology Nevaeh Linda PA-C [address] [place] [address] 12/15/2022 Office Visit Family Medicine Nicola Prado MD [address] [place] [address] [place] [address] 12/20/2022 Office Visit Dermatology Meron Aragon PA-C [address] [place] [address] [place] [address] 01/28/2023 Office [facility] [address] 03/04/2023 Office Visit Gastroenterology Marielena Giraldo CRNP [address] [place] [address] 03/29/2023 Office Visit Cardiology Blair Hannah PA-C [address] [place] [address] 06/02/2023 Nurse Only Ancillary Nurse Neeraj [address] [place] [address] 10/12/2023 Office Visit Sleep Disorders Eulalia Milligan DO [address] [place] [address] 10/25/2023 Cardiac Studies Cardiology Keith Pickard [facility] [address] [place] [address] Scheduled Procedures Name Priority Associated Diagnoses Date/Ti [...] this encounter Medical Devices Implanted Type Area Orthopaedic Physician Assistant Device Identifier Shelf Expiration Date Model / Serial / Lot Sut Steel 6 [id number] - [id number] Implanted:Qty: 6 on [place] [facility] [place]: Chest DO NOT USE 08/14/2012 [id number] / / [id number] documented as of this encounter Advance Directives Documents on File Type Date Recorded 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 No Code Status History Code Status Date [...] patient or by statute hierarchy) Care Teams Automotive Collision Estimator Relationship Specialty Start Date End Date Nicola Prado MD [address] [place] [address] [place] [phone] PCP - General Family Medicine 06/19/21 documented as of this encounter
--- OUTSIDE RECORDS SUMMARY | 2023-02-03 20:25 | External Medical Summary | Summary of Care ---
Author Name Unknown Organization [facility] Address [address] [place] [address] Phone [phone] Care Team Providers Care Clerical And Office Support Workers Name Role Phone Nicola Prado MD Primary Care Provide r Reason for Visit * Reason Onset Date Comments Precert Denied 11/01/2022 Encounter Details Date Type Department Care Team Description 11/01/2022 Telephone Gastroenterology, [facility] [address] [place] [address] Marielena Hall CRNP [address] [place] [address] Precert Denied Allergies Active Allergy Reactions Severity [...] Tablet 1 3 Active Easy Touch Pen [place] 31G X 8 MM (Insulin Pen Needle)Indication s:Type 2 diabetes mellitus with hemoglobin A1c goal of less than 8.0% ([facility]),Type 2 diabetes mellitus with stage 4 chronic kidney disease, unspecified whether half-way insulin use (HCC) Use up to six [...] Atherosclerosis of coronary artery bypass graft of [place] heart with angina pectoris 10/13/2022 Encounter [...] urinary tr act symptoms 07/13/2001 Atherosclerosis of [place] co ronary artery of [place] heart without angina pectoris Morbid obesity with [...] use aero chamber. Test performed by Dori MEDICAL RECORD RETRIEVAL SPECIALIST CPFT Body mass index (BMI) of 45.0 [...] TIA (transient ischemic attack) 02/04/2016 11/23/2017 Overview: [facility] Anemia of chronic renal failure [...] 07/22/2008 0 Overview: Kianna Lyn RN [phone] Examination following surgery 07/11/2008 Difficult intubation 07/10/2008 02/19/2020 Overview: Patient seen and examined in OR#1.Possible difficult intubation.TM distance about 5 cms.MP 3-4. Will plan FOB electively Due to current situation. EXAMINATION OF PARTICIPANT IN CLINICAL TRIAL-gen omics 07/04/2008 05/30/2009 Overview: Renamed Per Clinical Trials Billing Project. Study Titile: Genomic Markers for Patients with Cardiovascular Disease Project #[id number] PI: Miriam Roque MD Please call [phone] with study related questions Chronic coronary artery [...] at goal 07/04/2008 9 GENOMICS CARDIO RESEARCH OTHER*[id number] 200803/23/2016 Overview: Renamed Per Clinical Trials Billing Project. Study Titile: Genomic Markers for Patients with Cardiovascular Disease Project #[id number] PI: Miriam Roque MD Please call [phone] with study related questions Kidney disease, chronic, [...] mRNA, LNP-s, No Pre serve, 2-Dose Series (PIERIS Proteolab) 12/09/2020,05/09/2020,04/11/2020 COVID-19, LNP-s, No Preserve , Juan [...] auth end date: N/A Rx Insurance Info: [facility] Rx Benefits Verified through/on date: 11/02/2022 Referral (TE) received from: [facility] Thank you, Aviva Lombardo Medication Lighting Equipment Operator 11/03/2022, 9:55 AM * Telephone Encounter - KATHE Tellez - 11/01/2022 12:42 PM EDT [facility] Authorization Submission Submission Information: Medication: SANDOSTATIN LAR DEPOT 10 MG KT [facility] Authorization #/Mendes: [id number] Thank you, Aviva Lombardo Medication Lighting Equipment Operator 11/01/2022, 12:43 PM * Telephone Encounter - HARLEY Mauricio - 11/01/2022 9:22 AM EDT New or re-auth: new Patient Maurisio Beltran needs a prior authorization for their sandostatin through their [facility] insurance. ID: [id number] BIN:[id number] PCN:[id number] Target ship date is n/a. Thank you very much, Elaine Flowers School Cook, [facility] 11/01/2022 9:23 AM\\ documented in this encounter Plan of Treatment Upcoming Encounters Date Type Specialty Care Team Description 11/17/2022 Office Visit Pharmacy [address] [place] [address] 11/19/2022 Imaging Radiology 11/22/2022 Imaging Radiology 11/30/2022 Office Visit Urology Denny Armando MD [address] [address] [place] [address] 12/13/2022 Office Visit Cardiology Nevaeh Linda PA-C [facility] [place] [phone] 12/15/2022 Office Visit Family Medicine Nicola Prado MD [address] [place] [address] [place] [address] 12/20/2022 Office Visit Dermatology Meron Aragon PA-C [address] [place] [address] [place] [address] 01/28/2023 [facility] [address] 03/04/2023 Office Visit Gastroenterology Marielena Hall CRNP [address] [place] [address] 03/29/2023 Office Visit Cardiology Blair Hannah PA-C [address] [place] [address] 06/02/2023 Nurse Only Ancillary Nurse Neeraj Annual [address] [place] [address] 10/12/2023 Office Visit Sleep Disorders Eulalia Milligan DO [address] [place] [address] 10/25/2023 Cardiac Studies Cardiology [facility] [address] [place] [address] Scheduled Procedures Name Priority Associated Diagnoses Date/Ti [...] this encounter Medical Devices Implanted Type Area Kitchen Utility Associate Device Identifier Shelf Expiration Date Model / Serial / Lot Sut Steel 6 M654g - [id number] Implanted:Qty: 6 on 07/10/2008 at OR [facility] N/A: Chest DO NOT USE 08/14/2012 [id number] / / [id number] documented as of this encounter Advance Directives Documents on File Type Date Recorded Patient Employment Services Director Expl anation Power of Mechanic Senior 06/26/2019 POWER OF A TTORNEY Advance Directives [...] the patient have Health Care Power of Mechanic Senior? No Code Status History Code Status Date [...] patient or by statute hierarchy) Care Teams Clerical And Office Support Workers Relationship Specialty Start Date End Date Nicola Prado MD [address] [place] [address] [place] [address] PCP - General Family Medicine 06/19/21 documented as of this encounter
--- OUTSIDE RECORDS SUMMARY | 2023-02-03 20:25 | External Medical Summary | Summary of Care ---
Author Name Unknown Organization [facility] Address [address] [place] [address] Phone [phone] Care Team Providers Care Chest Painting Leader Name Role Phone Nicola Prado MD Primary Care Provide r Reason for Visit * Reason Onset Date Comments Precert In Process 10/29/2022 21 [facility] Mariscal dostatin Encounter Details Date Type Department Care Team Description 10/29/2022 Telephone Gastroenterology, [facility] [address] [place] [address] Marielena Giraldo CRNP [address] [place] [address] Precert In Process (21 [facility] Sandostatin) Allergies Active Allergy Reactions Severity [...] goal of less than 8.0% ([facility]) Test blood sugar up to five times daily; dx E11.9 450 Each 3 12/17/2021 Active OneTouch Ultra In Vitro Strip (Glucose Blood)Indications: Type 2 diabetes mellitus with hemoglobin A1c goal of less than 8.0% ([facility]) 3-4 times a day 450 Strip 3 12/17/2021 Active Xiidra 5 % Ophthalmic Solution instill 1 drop by ophthalmic route 2 times every day into both eyes. OK for 90 day supply. 0 01/05/2022 Active NovoLOG FlexPen 100 UNIT/ML Subcutaneous Solution Pen-injector (insulin aspart)Indications :Type 2 diabetes mellitus with hemoglobin A1c goal of less than 8.0% ([facility]) 12 units with breakfast and supper PLUS correction factor of 1:25 if over 140 mg/dL 110 mL 3 03/23/2022 Active Tamsulosin HCl 0.4 MG Oral Capsule (Flomax)Indication s:Lower urinary tract symptoms Take 1 Capsule by mouth in the morning. 90 Capsule 3 04/13/2022 Active Omeprazole 20 MG Oral Capsule Delayed Release (PriLOSEC) Take 1 Capsule BY MOUTH in the morning AND 1 Capsule before bedtime. 60 Capsule 5 04/22/2022 Active Nitroglycerin 0.4 MG Sublingual Tablet Sublingual (Nitrostat) 1 every 5 minutes as needed with chest pain up to 3 doses in 15 minutes 25 Tablet 1 05/05/2022 Active Easy Touch Pen [place] 31G X 8 MM (Insulin Pen Needle)Indications :Type 2 diabetes mellitus with hemoglobin A1c goal of less than 8.0% ([facility]),Type 2 diabetes mellitus with stage 4 chronic kidney disease, unspecified whether skilled nursing insulin use ([facility]) Use up to six times daily with insulin. DXe11.9 600 Each 3 05/22/2022 Active Albuterol Sulfate HFA 108 (90 Base) MCG/ACT Inhalation Aerosol SolutionIndication s:COPD exacerbation ([facility]),Chronic cough Inhale by mouth 2 Puffs every 4 hours as needed for Cough or Shortness of Breath. Reports doesn't help 18 g 2 05/27/2022 Active Victoza 18 MG/3ML Subcutaneous Solution Pen-injector (Liraglutide)Indic ations:Type 2 diabetes mellitus with hemoglobin A1c goal of less than 8.0% ([facility]),Type 2 diabetes mellitus with stage 4 chronic kidney disease, with long-term current use of insulin ([facility]) Inject 1.8 mg under the skin daily. [...] 12 Hour (Mucinex)Indicatio ns:COPD exacerbation ([facility]) Take 1 Tablet by mouth 2 times a day as needed for Congestion. Take with plenty of water. Do not cut, crush or chew 40 Tablet 0 10/13/2022 Active Tresiba FlexTouch 200 UNIT/ML Subcutaneous Solution Pen-injector (Insulin Degludec)Indicatio ns:Type 2 diabetes mellitus with hemoglobin A1c goal of less than 8.0% ([facility]) Inject 100 Units under the skin daily. 90 mL 3 10/25/2022 Active Octreotide Acetate 10 MG Intramuscular Kit (SandoSTATIN LAR [place]) Inject 10 mg into a large muscle every month. 1 Kit 12 10/29/2022 Active Octreotide Acetate 50 MCG/ML Injection Solution (Sandostatin) Inject 50mcg under the skin in the morning and the evening. 180 mL 1 11/01/2022 Active Octreotide Acetate 50 MCG/ML Injection Solution (Sandostatin) Inject 50mcg under the skin in the morning and the evening 180 mL 1 09/01/2022 3 Discontinue d(Refill) Hospital, Clinic, [...] Atherosclerosis of coronary artery bypass graft of [place] heart with angina pectoris 10/13/2022 Encounter for [...] urinary tr act symptoms 07/13/2001 Atherosclerosis of [place] co ronary artery of [place] heart without angina pectoris Morbid obesity with [...] use aero chamber. Test performed by Dori AREA DEVELOPMENT CONSULTANT CPFT Body mass index (BMI) of 45.0 [...] MANAGEMENT 07/22/2008 0 Overview: Kianna Lyn, RN [phone] Examination following surgery 07/11/2008 Difficult intubation 07/10/2008 02/19/2020 Overview: Patient seen and examined in OR#1.Possible difficult intubation.TM distance about 5 cms.MP 3-4. Will plan FOB electively Due to current situation. EXAMINATION OF PARTICIPANT IN CLINICAL TRIAL-gen omics 07/04/2008 05/30/2009 Overview: Renamed Per Clinical Trials Billing Project. Study Titile: Genomic Markers for Patients with Cardiovascular Disease Project #[id number] PI: Miriam Roque MD Please call [phone] with study related questions Chronic coronary artery [...] at goal 07/04/2008 9 GENOMICS CARDIO RESEARCH OTHER*[id number] 200803/23/2016 Overview: Renamed Per Clinical Trials Billing Project. Study Titile: Genomic Markers for Patients with Cardiovascular Disease Project #[id number] PI: Miriam Roque MD Please call [phone] with study related questions Kidney disease, chronic, [...] mRNA, LNP-s, No Pre serve, 2-Dose Series (NexDefense) 12/09/2020,05/09/2020,04/11/2020 COVID-19, LNP-s, No Preserve , Juan [...] arrange this through his HH. He uses [facility] He provided me with [phone] Gastro Pre-Cert Request Specialty Medication: No. Medication/Disease State Information: Medication: Octreotide Acetate 10 MG Intramuscular Kit (SandoSTATIN LAR [place]) 1 Kit 12 10/29/2022 Sig - Route: Inject 10 mg into a large muscle every month. - Intramuscular Diagnosis (including ICD-10): D64.9 Anemia Site of care: Self-administered - route pre-cert request to [id number] Office Information: Prescriber: FRANCHESKA Collins can you [...] a script of the OCtreotide LAR to [facility] specialty pharmacy. May need prior auth [...] Specialty Care Team Description 11/17/2022 Office Visit [address] [place] [address] 11/19/2022 Imaging Radiology 11/22/2022 Imaging Radiology 11/30/2022 Office Visit Urology Denny Armando MD [address] [place] [address] [place] [address] 12/13/2022 Office Visit Cardiology Nevaeh Linda PA-C [address] [place] [address] [place] [address] 12/15/2022 Office Visit Family Medicine Nicola Prado MD [address] [place] [address] [place] [address] 12/20/2022 Office Visit Dermatology Meron Aragon PA-C [address] [place] [address] [place] [address] 01/28/2023 Office Visit Nephrology Verito Jovel PA-C [address] [place], [place] [address] 03/04/2023 Office Visit Gastroenterology Marielena Giraldo CRNP [address] [place] [address] 03/29/2023 Office Visit Cardiology Blair Hannah PA-C [address] [place] [address] 06/02/2023 Nurse Only Ancillary Nurse Neeraj [address] [place] [address] 10/12/2023 Office Visit Sleep Disorders Eulalia Milligan DO [address] [place] [address] 10/25/2023 Cardiac Studies Cardiology Keith Pickard [facility] [address] [place] [address] Scheduled Procedures Name Priority Associated Diagnoses Date/Ti [...] this encounter Medical Devices Implanted Type Area Rocket Propellant Plant Supervisor Device Identifier Shelf Expiration Date Model / Serial / Lot Sut Steel 6 M654g - [id number] Implanted:Qty: 6 on 07/10/2008 at OR [facility] N/A: Chest DO NOT USE 08/14/2012 [id number] / / [id number] documented as of this encounter Advance Directives Documents on File Type Date Recorded Patient Admissions Gate Attendant Expl anation Power of Jail Officer 06/26/2019 POWER OF A TTORNEY Advance Directives [...] the patient have Health Care Power of Jail Officer? No Code Status History Code Status Date [...] patient or by statute hierarchy) Care Teams Chest Painting Leader Relationship Specialty Start Date End Date Nicola Prado MD [address] [place] [address] [place] [address] PCP - General Family Medicine 06/19/21 documented as of this encounter
--- OUTSIDE RECORDS SUMMARY | 2023-02-03 20:26 | External Medical Summary | Summary of Care ---
Author Name Unknown Organization [facility] Address [address] [place] [address] Phone [phone] Care Team Providers Care Public Policy Analyst Name Role Phone Nicola Prado MD Primary Care Provide r Reason for Visit * Reason Onset Date Comments Precert Denied 11/01/2022 Encounter Details Date Type Department Care Team Description 11/01/2022 Telephone Gastroenterology, [facility] [address] [place] [address] Marielena Hall CRNP [address] [place] [address] Precert Denied Allergies Active Allergy Reactions Severity Noted Date Comments Hydromorphone High 09/20/2021 Other reaction(s): Nausea Other reaction(s): Nausea 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/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 Other reaction(s): AMS Other reaction(s): AMS Prasugrel 04/02/2016 bleeding Prednisone High 09/20/2021 Other reaction(s): INCREASE BLOOD SUGAR Other reaction(s): INCREASE BLOOD SUGAR documented as of this encounter (statuses as of 11/03/2022) Medications Medication Sig Dispensed Refills Start Date [...] than 8.0% ([facility]) Test blood sugar up to five times daily; dx E11.9 450 Each 3 12/17/2021 Active OneTouch Ultra In Vitro Strip (Glucose Blood)Indications: Type 2 diabetes mellitus with hemoglobin A1c goal of less than 8.0% ([facility]) 3-4 times a day [...] than 8.0% ([facility]) 12 units with breakfast [...] Tablet 1 05/05/2022 Active Easy Touch Pen [place] 31G X 8 MM (Insulin Pen Needle)Indications :Type 2 diabetes mellitus with hemoglobin A1c goal of less than 8.0% ([facility]),Type 2 diabetes mellitus with stage 4 chronic kidney disease, unspecified whether buttermaker helper insulin use ([facility]) Use up to six times daily with insulin. DXe11.9 600 Each 3 05/22/2022 Active Albuterol Sulfate HFA 108 (90 Base) MCG/ACT Inhalation Aerosol SolutionIndication s:COPD exacerbation ([facility]),Chronic cough Inhale by mouth 2 Puffs every 4 hours as needed for Cough or Shortness of Breath. Reports doesn't help 18 g 2 05/27/2022 Active Victoza 18 MG/3ML Subcutaneous Solution Pen-injector (Liraglutide)Indic ations:Type 2 diabetes mellitus with hemoglobin A1c goal of less than 8.0% ([facility]),Type 2 diabetes mellitus with [...] Extended Release 12 Hour (Mucinex)Indicatio ns:COPD exacerbation ([facility]) Take [...] as of this encounter (statuses as of 11/03/2022) Active Problems Problem Noted Date Atherosclerosis of coronary artery bypass graft of [place] heart with angina pectoris 10/13/2022 Encounter for [...] urinary tr act symptoms 07/13/2001 Atherosclerosis of [place] co ronary artery of [place] heart without angina pectoris Morbid obesity with BMI of 40.0-44.9, ad ult documented as of this encounter (statuses as of 11/03/2022) Resolved Problems Problem Noted Date Resolved Date [...] use aero chamber. Test performed by Dori ROBOTICS SPECIALIST CPFT Body mass index (BMI) of [...] (transient ischemic attack) 02/04/2016 11/23/2017 Overview: [facility] Anemia of chronic renal failure 07/30/2015 [...] 07/22/2008 0 Overview: Kianna Lyn, RN [phone] Examination following surgery 07/11/2008 Difficult intubation 07/10/2008 02/19/2020 Overview: Patient seen and examined in OR#1.Possible difficult intubation.TM distance about 5 cms.MP 3-4. Will plan FOB electively Due to current situation. EXAMINATION OF PARTICIPANT IN CLINICAL TRIAL-gen omics 07/04/2008 05/30/2009 Overview: Renamed Per Clinical Trials Billing Project. Study Titile: Genomic Markers for Patients with Cardiovascular Disease Project #[id number] PI: Miriam Roque MD Please call [phone] with study related questions Chronic coronary artery [...] at goal 07/04/2008 9 GENOMICS CARDIO RESEARCH OTHER*[id number] 200803/23/2016 Overview: Renamed Per Clinical Trials Billing Project. Study Titile: Genomic Markers for Patients with Cardiovascular Disease Project #[id number] PI: Miriam Roque MD Please call [phone] with study related questions Kidney disease, chronic, [...] as of this encounter (statuses as of 11/03/2022) Immunizations Name Administration Dates Next Due COVID-19 [...] auth end date: N/A Rx Insurance Info: [facility] Rx Benefits Verified through/on date: 11/02/2022 Referral (TE) received from: [facility] Thank you, Aviva Lombardo Medication Filling Hauler 11/03/2022, 9:55 AM * Telephone Encounter - KATHE Tellez - 11/01/2022 12:42 PM EDT [facility] Authorization Submission Submission Information: Medication: SANDOSTATIN LAR DEPOT 10 MG KT [facility] Authorization #/Mendes: [id number] Thank you, Aviva Lombardo Medication Filling Hauler 11/01/2022, 12:43 PM * Telephone Encounter - Tobin Flowers laborer ammunition assembly - 11/01/2022 9:22 AM EDT New or re-auth: new Patient Maurisio Beltran needs a prior authorization for their sandostatin through their [facility] insurance. ID: [id number] BIN:[id number] PCN:[id number] Target ship date is n/a. Thank you very much, Elaine Flowers Lace Mender, [facility] 11/01/2022 9:23 AM\\ documented in this encounter Plan of Treatment Upcoming Encounters Date Type Specialty Care Team Description 11/17/2022 Office Visit [address] [place] [address] 11/19/2022 Imaging Radiology 11/22/2022 Imaging Radiology 11/30/2022 Office Visit Urology Denny Armando MD [address] [address] [place] [address] 12/13/2022 Office Visit Cardiology Nevaeh Linda PA-C [address] [facility] [place] [address] 12/15/2022 Office Visit Family Medicine Nicola Prado MD [address] [place] [address] [place] [address] 12/20/2022 Office Visit Dermatology Meron Aragon PA-C [address] [place] [address] [place] [address] 01/28/2023 [facility] [address] [facility] [address] 03/04/2023 Office Visit Gastroenterology Marielena Hall CRNP [address] [place] [address] 03/29/2023 Office Visit Cardiology Blair Hannah PA-C [address] [place] [address] 06/02/2023 Nurse Only Ancillary Neeraj, Nurse Annual [facility] [address] [place] [address] [place] [address] 10/12/2023 Office Visit Sleep Disorders Eulalia Milligan DO [address] [place] [address] 10/25/2023 Cardiac Studies Cardiology [facility] [place] [address] [place] [address] Scheduled Procedures Name Priority Associated Diagnoses Date/Ti [...] 023, 03/24/2022, 06/19/2021, Additional history exists GFR 04/26/2023 10/26/2022, 08/09/2022, 10/04/2022, Additional history exists Depression Screening 05/29/2023 05/28/2022 [...] this encounter Medical Devices Implanted Type Area Polysom Tech Device Identifier Shelf Expiration Date Model / Serial / Lot Sut Steel 6 [id number] - [id number] Implanted:Qty: 6 on 07/10/2008 at OR [facility] N/A: Chest DO NOT USE 08/14/2012 [id number] / / [id number] documented as of this encounter Advance Directives Documents on File Type Date Recorded Patient Merchandising Director Expl anation Power of Railway Signalling Engineer 06/26/2019 POWER OF A TTORNEY Advance [...] the patient have Health Care Power of Railway Signalling Engineer? No Code Status History Code Status [...] patient or by statute hierarchy) Care Teams Public Policy Analyst Relationship Specialty Start Date End Date Nicola Prado MD [address] [place] [address] [place] [address] PCP - General Family Medicine 06/19/21 documented as of this encounter
--- OUTSIDE RECORDS SUMMARY | 2023-02-03 20:26 | External Medical Summary | Summary of Care ---
Author Name Unknown Organization [facility] Address [address] [place] [address] Phone [phone] Care Team Providers Care Interlocking Installer Name Role Phone Nicola Prado MD Primary Care Provide r Reason for Visit * Reason Onset Date Comments Precert Denied 11/01/2022 Encounter Details Date Type Department Care Team Description 11/01/2022 Telephone Gastroenterology, [facility] [address] [place] [address] Marielena Hall CRNP [address] [place] [address] Precert Denied Allergies Active Allergy Reactions Severity [...] Tablet 1 05/05/2022 Active Easy Touch Pen [place] 31G X 8 MM (Insulin Pen Needle)Indications :Type 2 diabetes mellitus with hemoglobin A1c goal of less than 8.0% ([facility]),Type 2 diabetes mellitus with stage 4 chronic kidney disease, unspecified whether meterman insulin use ([facility]) Use up to six times daily with insulin. DXe11.9 600 Each 3 05/22/2022 Active Albuterol Sulfate HFA 108 (90 Base) MCG/ACT Inhalation Aerosol SolutionIndication s:COPD exacerbation ([facility]),Chronic cough [...] Extended Release 12 Hour (Mucinex)Indicatio ns:COPD exacerbation ([facility]) Take [...] Atherosclerosis of coronary artery bypass graft of standing rock heart with angina pectoris 10/13/2022 Encounter for [...] urinary tr act symptoms 07/13/2001 Atherosclerosis of standing rock co ronary artery of standing rock heart without angina pectoris Morbid obesity with [...] use aero chamber. Test performed by Dori PHOTOGRAPH PRINTER CPFT Body mass index (BMI) of 45.0 [...] 07/22/2008 0 Overview: Kianna Lyn, RN [phone] Examination following surgery 07/11/2008 Difficult intubation 07/10/2008 02/19/2020 Overview: Patient seen and examined in OR#1.Possible difficult intubation.TM distance about 5 cms.MP 3-4. Will plan FOB electively Due to current situation. EXAMINATION OF PARTICIPANT IN CLINICAL TRIAL-gen omics 07/04/2008 05/30/2009 Overview: Renamed Per Clinical Trials Billing Project. Study Titile: Genomic Markers for Patients with Cardiovascular Disease Project #[id number] PI: Miriam Roque MD Please call [phone] with study related questions Chronic coronary artery [...] at goal 07/04/2008 9 GENOMICS CARDIO RESEARCH OTHER*[id number] 200803/23/2016 Overview: Renamed Per Clinical Trials Billing Project. Study Titile: Genomic Markers for Patients with Cardiovascular Disease Project #[id number] PI: Miriam Roque MD Please call [phone] with study related questions Kidney disease, chronic, [...] through/on date: 11/02/2022 Referral (TE) received from: [facility] Thank you, Aviva Lombardo Medication White Sugar Syrup Operator 11/03/2022, 9:55 AM * Telephone Encounter - KATHE Tellez - 11/01/2022 12:42 PM EDT [facility] Authorization Submission Submission Information: Medication: SANDOSTATIN LAR DEPOT 10 MG KT Portal used: PromptPA Insurance: [facility] Authorization #/Mendes: [id number] Thank you, Aviva Lombardo Medication White Sugar Syrup Operator 11/01/2022, 12:43 PM * Telephone Encounter - Tobin Flowers softball winder - 11/01/2022 9:22 AM EDT New or re-auth: new Patient Maurisio Beltran needs a prior authorization for their sandostatin through their [facility] insurance. ID: [id number] BIN:[id number] PCN:[id number] Target ship date is n/a. Thank you very much, Elaine Flowers Brownfield Redevelopment Specialist, [facility] 11/01/2022 9:23 AM\\ documented in this encounter Plan of Treatment Upcoming Encounters Date Type Specialty Care Team Description 11/17/2022 Office Visit Pharmacy [address] [place] [address] 11/19/2022 Imaging Radiology 11/22/2022 Imaging Radiology 11/30/2022 Office Visit Urology Denny Armando MD [address] [address] [place] [address] 12/13/2022 Office Visit Cardiology Nevaeh Linda PA-C [address] [place] [address] 12/15/2022 Office Visit Family Medicine Nicola Prado MD [address] [place] [address] [place] [address] 12/20/2022 Office Visit Dermatology Meron Aragon PA-C [address] [place] [address] [place] [address] 01/28/2023 Office Visit Nephrology Verito [facility]vel [facility]-C [address] [facility] [address] 03/04/2023 Office Visit Gastroenterology Marielena Hall CRNP [address] [place] [address] 03/29/2023 Office Visit Cardiology Blair Hannah PA-C [address] [place] [address] 06/02/2023 Nurse Only Ancillary Nurse Neeraj Annual [address] [place] [address] 10/12/2023 Office Visit Sleep Disorders Eulalia Milligan DO [address] [place] [address] 10/25/2023 Cardiac Studies Cardiology Keith [facility] [address] [place] [address] Scheduled Procedures Name Priority Associated Diagnoses Date/Ti [...] 06/19/2021, Additional history exists GFR 04/26/2023 10/26/2022, 09/15, 10/04/2022, Additional history exists Depression Screening 05/29/2023 [...] this encounter Medical Devices Implanted Type Area Business Line Controller Device Identifier Shelf Expiration Date Model / Serial / Lot Sut Nghia 6 [id number] - [id number] Implanted:Qty: 6 on 07/10/2008 at OR [facility] [place] [place] N/A: Chest DO NOT USE 08/14/2012 [id number] / / [id number] documented as of this encounter Advance Directives Documents on File Type Date Recorded Patient Comb Fixer Expl anation Power of Watch Repairer 06/26/2019 POWER OF A TTORNEY Advance [...] the patient have Health Care Power of Watch Repairer? No Code Status History Code Status [...] patient or by statute hierarchy) Care Teams Interlocking Installer Relationship Specialty Start Date End Date Nicola Prado MD [address] [place] [address] [place] [address] PCP - General Family Medicine 06/19/21 documented as of this encounter
--- OUTSIDE RECORDS SUMMARY | 2023-02-03 20:26 | External Medical Summary | Summary of Care ---
Author Name Unknown Organization [facility] Address [address] [place] [address] Phone [phone] Care Team Providers Care Produce Team Lead Name Role Phone Nicola Prado MD Primary Care Provide r Reason for Visit * Reason Comments Acute Pt c/o diarrhea 3-4 times a day since Tuesday or Tuesday, abdominal pain, similar to diverticulitis pain in the past, also wondering if c-diff with recently being on abx. Encounter Details Date Type Department Care Team Description 11/03/2022 Office Visit Family Medicine [address] [address] Alissa Drew PA-C [address] [place] [address] [place] [address] Diarrhea, unspecified type* Allergies Active Allergy Reactions Severity Noted Date [...] Tablet 1 05/05/2022 Active Easy Touch Pen [place] 31G X 8 MM (Insulin Pen Needle)Indications: Type 2 diabetes mellitus with hemoglobin A1c goal of less than 8.0% ([facility]),Type 2 diabetes mellitus with stage 4 chronic kidney disease, unspecified whether shelter insulin use (HCC) Use up to six times daily with insulin. 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 180 mL 1 11/01/2022 Active Ciprofloxacin HCl 500 MG Oral Tablet [...] MANAGEMENT 07/22/2008 0 Overview: Kianna Lyn RN [phone] Examination following surgery 07/11/2008 Difficult intubation 07/10/2008 02/19/2020 Overview: Patient seen and examined in OR#1.Possible difficult intubation.TM distance about 5 cms.MP 3-4. Will plan FOB electively Due to current situation. EXAMINATION OF PARTICIPANT IN CLINICAL TRIAL-gen omics 07/04/2008 05/30/2009 Overview: Renamed Per Clinical Trials Billing Project. Study Titile: Genomic Markers for Patients with Cardiovascular Disease Project #[id number] PI: Miriam Roque MD Please call [phone] with study related questions Chronic coronary artery [...] at goal 07/04/2008 9 GENOMICS CARDIO RESEARCH OTHER*[id number] 200803/23/2016 Overview: Renamed Per Clinical Trials Billing Project. Study Titile: Genomic Markers for Patients with Cardiovascular Disease Project #[id number] PI: Miriam Roque MD Please call [phone] with study related questions Kidney disease, chronic, [...] Sign Reading Time Taken Comments Blood Pressure 118/68 11/03/2022 8:57 AM EDT Pulse 85 11/03/2022 8:57 AM EDT Temperature 35.8 C (96.5 F) 11/03/2022 8:57 AM ED T Respiratory Rate - - Oxygen Saturation 91% 11/03/2022 8:57 AM EDT Inhaled Oxygen Concentration - - Weight 114.5 kg (252 lb 6.4 oz) 11/03/2022 8:57 AM EDT Height - - Body Mass Index 43.32 10/26/2022 10:53 AM EDT documented in this encounter Progress Notes * Alissa Drew PA-C - 11/03/2022 9:02 AM EDT Chief Complaint Patient presents with Acute Pt c/o diarrhea 3-4 times a day since Tuesday or Tuesday, abdominal pain, similar to diverticulitispain in the past, also wondering if c-diff with recently being on abx. Pt here today with diarrhea for the past 4 days. Pt states that he did take imodium yesterday am and hasn't gone since. Pt has some mild lower abdominal pain. Pt denies fever, chills, nausea, vomiting, blood in stool, mucus in stool. He does have black stool but he gets iron infusions. Pt has also been on an abx recently and worried about C. Dif. Pt denies urinary sx. He is drinking a lot of water. Pt has hx of diverticulitis and this sort of feel the same. Review of patient's allergies indicates: Allergen Reactions Hydromorphone Other reaction(s): Nausea Other reaction(s): Nausea Methylprednisolone Steroid psychosis Other reaction(s): AMS Other reaction(s): AMS Prednisone Other reaction(s): INCREASE BLOOD SUGAR Other reaction(s): INCREASE BLOOD SUGAR Prasugrel bleeding Current Outpatient Medications Medication Sig Dispense Refill ASPIRIN 81 MG PO CHEW 1 Tab Oral Daily 1 0 oxygen IN GAS Use 2 L/min(Oxygen) as directed daily. 2.5 LPMBled through bipap And 2 LPM with exertion DME: [facility] (Patient taking differently: Use 2 L/min(Oxygen) as directed in the morning. 2.5 LPMBled through bipap And 2 LPM with exertion. (Patient is using 2 LPM with CPAP, and 3 LPM with exertion/activity) DME: [facility].) 1 Each 0 Fluticasone Propionate 50 MCG/ACT Nasal Suspension [...] Tablet by mouth daily. 90 Tablet 3 OneTouch UltraSoft Lancets Test blood sugar [...] mouth in the morning. 90 Capsule 3 Omeprazole 20 MG Oral Capsule Delayed Release (PriLOSEC) Take 1 Capsule BY MOUTH in the morning AND1 Capsule before bedtime. 60 Capsule 5 Nitroglycerin 0.4 MG Sublingual Tablet Sublingual (Nitrostat) 1 every 5 minutes as needed with chest pain up to 3 doses in 15 minutes 25 Tablet 1 Easy Touch Pen [place] 31G X 8 MM (Insulin Pen Needle) Use up to six times daily with insulin. DXe11.9 600 Each 3 Albuterol Sulfate HFA 108 (90 Base) [...] mouth in the morning. 90 Tablet 1 Etanercept 50 MG/ML Subcutaneous Solution Auto-injector (Enbrel Sureclick) Inject 50 mg under the skin once a week. 4 mL 1 BD TB Syringe 27G X 1/2" 1 ML (Tuberculin Syringe) Use twice daily to inject octreotide 180 Each 1 Isosorbide Mononitrate ER 30 MG Oral Tablet Extended Release 24 Hour (Imdur) Take 2 Tablets by mouth in the morning. In the morning.. 180 Tablet 3 Atorvastatin Calcium 80 MG Oral Tablet (Lipitor) [...] morning and the evening. 180 mL 1 Current Facility-Administered Medications Medication Dose Route Frequency Provider Last Rate Last Admin Albuterol Sulfate (Proventil) (2.5 MG/3ML) 0.083% inhalation solution 2.5 mg 2.5 mg Nebulizer LOURDES Mccrary PA-C Albuterol Sulfate (Proventil) (5 MG/ML) 0.5% *conc* inhalation solution 2.5 mg 2.5 mg Nebulizer PRJessie Mccrary PA-C Past Medical History: Diagnosis Date (HFpEF) heart failure with preserved ejection fraction (HCC) Acute blood loss anemia 10/29/2020 [facility] transfused Acute exacerbation of chronic obstructive pulmonary disease (COPD) (HCC) 05/11/2018 [facility] Altered mental status 03/31/2017 likely the baclofen Atrioventricular block, Mobitz type 1, Sohambach 06/09/2020 barretts stomach gastritis, stubbs's esophagus, recommend [...] moderate (HCC) 10/04/2014 PFT Coronary atherosclerosis of [place] coronary artery 07/04/2008 Ad[place] [facility] 02/24/2021 Dermatophytosis of scalp or bello [...] obesity with BMI of 45.0-49.9, adult ([facility]) Other psoriasis S/P primary angioplasty with coronary stent 09/05/2013 drug eluting stents to 60% RCA, other grafts open except SVG to PDA is occluded Sleep apnea CPAP Sleep apnea, obstructive Symptomatic anemia 10/29/2020 Admitted [facility] and transfused TIA (transient ischemic attack) 02/04/2016 [facility] Tubular adenoma 10/31/2020 Social History Socioeconomic History Marital status: Spouse name: Cathryn Number of children: 2 Years of education: Not on file Highest education level: Not on file Occupational History 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 [employer] before the [employer] bankrupted him. Passed 11/2021 from dementia Social [...] on file Housing Stability: Not on file O:Blood pressure 118/68, pulse 85, temperature 35.8 C (96.5 F), weight 114.5 kg (252 lb 6.4 oz), SpO2 91 %. GENERAL: alert, healthy, and no distress ABDOMEN: abdomen soft, non-tender, and obese HEART: regular rate & rhythm, no murmur, and no gallops LUNGS: chest symmetric with normal AP diameter, no chest deformities noted, no chest wall tenderness, lungs clear to auscultation A:Diarrhea, unspecified type (Primary) - Ciprofloxacin HCl 500 MG Oral Tablet (Cipro); Take 1 Tablet by mouth in the morning and 1 Tablet before bedtime. Do all this for 10 days. - CLOSTRIDIUM DIFFICILE, PCR; Future; Expected date: 11/03/2022 - COMPREHENSIVE METABOLIC PANEL; Future; Expected date: 11/03/2022 Will check some labs. Will do stool culture but it sounds like diarrhea may have resolved. Cipro incase of diverticulitis. Any questions/problems, please call. If anything changes, worsens, developsnew sx, please call NERY. Follow Up: Return if symptoms worsen or fail to improve. Alissa Drew PA-C documented in this encounter Plan of Treatment Upcoming Encounters Date Type Specialty Care Team Description 11/17/2022 Office Visit [address] [place] [address] 11/19/2022 Imaging Radiology 11/22/2022 Imaging Radiology 11/30/2022 Office Visit Urology Denny Armando MD [address] [place] [address] [place] [address] 12/13/2022 Office Visit Cardiology Nevaeh Linda PA-C [address] [facility] [place] [phone] 12/15/2022 Office Visit Family Medicine Nicola Prado MD [address] [place] [address] [place] [address] 12/20/2022 Office Visit Dermatology Meron Aragon PA-C [address] [place] [address] [place] [address] 01/28/2023 [facility] [address] 03/04/2023 Office Visit Gastroenterology Marielena Hall CRNP [address] [place] [address] 03/29/2023 Office Visit Cardiology Blair Hannah PA-C [address] [place] [address] 06/02/2023 Nurse Only Ancillary Nurse Neeraj [facility] [address] [place] [address] [place] [address] 10/12/2023 Office Visit Sleep Disorders Eulalia Milligan DO [address] [place] [address] 10/25/2023 Cardiac Studies Cardiology Keith Pickard [facility] [address] [place] [address] Pending Results Name Type Priority Associated Diagnoses Date /Time COMPREHENSIVE METABOLIC PANEL Lab Routine Diarrhea, unspecified type 11/03/2022 9:14 AM EDT Scheduled Orders Name Type Priority Associated Diagnoses Orde r Schedule CLOSTRIDIUM DIFFICILE, PCR Lab Routine Diarrhea, unspecified type Expected: 11/03/2022 (Approximate), Expires: 11/03/2023 COMPREHENSIVE METABOLIC PANEL Lab Routine Diarrhea, unspecified type Expected: 11/03/2022 (Approximate), Expires: 11/03/2023 Scheduled Procedures Name Priority Associated Diagnoses Date/Ti [...] 06/19/2021, Additional history exists GFR 04/26/2023 10/26/2022, 0809/2022, 10/04/2022, Additional history exists Depression Screening 05/29/2023 [...] this encounter Medical Devices Implanted Type Area Program Officer Device Identifier Shelf Expiration Date Model / Serial / Lot Lei Agrawal 6 [id number] - [id number] Implanted:Qty: 6 on 07/10/2008 [place] [facility] [place]/A: Chest DO NOT USE 08/14/2012 [id number] / / [id number] documented as of this encounter Visit Diagnoses Diagnosis Diarrhea, unspecified type- Primary documented in this encounter Advance Directives Documents on File Type Date Recorded Patient Social Media Content Manager Expl anation Power of Pool Hall Inspector 06/26/2019 POWER OF A TTORNEY Advance Directives [...] the patient have Health Care Power of Pool Hall Inspector? No Code Status History Code Status Date [...] patient or by statute hierarchy) Care Teams Produce Team Lead Relationship Specialty Start Date End Date Nicola Prado MD [address] [place] [address] [place] [address] PCP - General Family Medicine 06/19/21 documented as of this encounter
--- OUTSIDE RECORDS SUMMARY | 2023-02-03 20:26 | External Medical Summary | Summary of Care ---
Author Name Unknown Organization [facility] Address [address] [place] [address] Phone [phone] Care Team Providers Care Data Scientist Name Role Phone Nicola Prado MD Primary Care Provide r Reason for Visit * Reason Onset Date Comments Precert Denied 11/01/2022 Encounter Details Date Type Department Care Team Description 11/01/2022 Telephone Gastroenterology, [facility] [address] [place] [address] Marielena Hall CRNP [address] [place] [address] Precert Denied Allergies Active Allergy Reactions Severity [...] Tablet 1 05/05/2022 Active Easy Touch Pen [place] 31G X 8 MM (Insulin Pen Needle)Indications :Type 2 diabetes mellitus with hemoglobin A1c goal of less than 8.0% ([facility]),Type 2 diabetes mellitus with stage 4 chronic kidney disease, unspecified whether oysterman insulin use ([facility]) Use up to six times daily with insulin. DXe11.9 600 Each 3 05/22/2022 Active Albuterol Sulfate HFA 108 (90 Base) MCG/ACT Inhalation Aerosol SolutionIndication s:COPD exacerbation ([facility]),Chronic cough Inhale by mouth 2 Puffs [...] 12 Hour (Mucinex)Indicatio ns:COPD exacerbation ([facility]) Take 1 Tablet by mouth 2 [...] Atherosclerosis of coronary artery bypass graft of [place] heart with angina pectoris 10/13/2022 Encounter for [...] urinary tr act symptoms 07/13/2001 Atherosclerosis of [place] co ronary artery of [place] heart without angina pectoris Morbid obesity with [...] use aero chamber. Test performed by Dori CHEF FRENCH CPFT Body mass index (BMI) of 45.0 [...] TIA (transient ischemic attack) 02/04/2016 11/23/2017 Overview: [facility] Anemia of chronic renal failure 07/30/2015 01/27/2017 [...] 07/22/2008 0 Overview: Kianna Lyn, RN 342 5260 Examination following surgery 07/11/2008 Difficult intubation 07/10/2008 02/19/2020 Overview: Patient seen and examined in OR#1.Possible difficult intubation.TM distance about 5 cms.MP 3-4. Will plan FOB electively Due to current situation. EXAMINATION OF PARTICIPANT IN CLINICAL TRIAL-gen omics 07/04/2008 05/30/2009 Overview: Renamed Per Clinical Trials Billing Project. Study Titile: Genomic Markers for Patients with Cardiovascular Disease Project #[id number] PI: Miriam Roque MD Please call [phone] with study related questions Chronic coronary artery [...] at goal 07/04/2008 9 GENOMICS CARDIO RESEARCH OTHER*[id number] 200803/23/2016 Overview: Renamed Per Clinical Trials Billing Project. Study Titile: Genomic Markers for Patients with Cardiovascular Disease Project #[id number] PI: Miriam Roque MD Please call [phone] with study related questions Kidney disease, chronic, [...] auth end date: N/A Rx Insurance Info: [facility] Rx Benefits Verified through/on date: 11/02/2022 Referral (TE) received from: [facility] Thank you, Aviva Lombardo Medication Test Facility Engineer 11/03/2022, 9:55 AM * Telephone Encounter - KATHE Tellez - 11/01/2022 12:42 PM EDT [facility] Authorization Submission Submission Information: Medication: SANDOSTATIN LAR DEPOT 10 MG KT Portal used: PromptPA Insurance: [facility] Authorization #/Mendes: [id number] Thank you, Aviva Lombardo Medication Test Facility Engineer 11/01/2022, 12:43 PM * Telephone Encounter - Tobin Flowers pageant director - 11/01/2022 9:22 AM EDT New or re-auth: new Patient Maurisio Beltran needs a prior authorization for their sandostatin through their [facility] insurance. ID: [id number] [id number] PCN:[id number] Target ship date is n/a. Thank you very much, Elaine Flowers Doll Repairer, [facility] 11/01/2022 9:23 AM\\ documented in this encounter Plan of Treatment Upcoming Encounters Date Type Specialty Care Team Description 11/17/2022 Office Visit Pharmacy [address] [place] [address] 11/19/2022 Imaging Radiology 11/22/2022 Imaging Radiology 11/30/2022 Office Visit Urology Denny Armando MD [address] [place] [address] 12/13/2022 Office Visit Cardiology [facility] [place] [address] 12/15/2022 Office Visit Family Medicine Nicola Prado MD [address] [place] [address] [place] [address] 12/20/2022 Office Visit Dermatology Meron Aragon PA-C [address] [place] [address] [place] [address] 01/28/2023 Office Visit [facility]phrology [facility] [address] 03/04/2023 Office Visit Gastroenterology Marielena Hall CRNP [address] [place] [address] 03/29/2023 Office Visit Cardiology Blair Hannah PA-C [address] [place] [address] 06/02/2023 Nurse Only Ancillary Nurse Neeraj [facility] [address] [place] [address] [place] [address] 10/12/2023 Office Visit Sleep Disorders Eulalia Milligan DO [address] [place] [address] 10/25/2023 Cardiac Studies Cardiology Keith Pickard [facility] [address] [place] [address] Scheduled Procedures Name Priority Associated Diagnoses Date/Ti [...] this encounter Medical Devices Implanted Type Area Patrol Conductor Device Identifier Shelf Expiration Date Model / Serial / Lot Lei Agrawal 6 M654g - [id number] Implanted:Qty: 6 on 07/10/2008 at OR [facility] [place] N/A: Chest DO NOT USE 08/14/2012 [id number] / / [id number] documented as of this encounter Advance Directives Documents on File Type Date Recorded Patient Compliance Auditor Expl anation Power of Orange Picker 06/26/2019 POWER OF A TTORNEY Advance Directives [...] the patient have Health Care Power of Orange Picker? No Code Status History Code Status Date [...] or by statute hierarchy) Care Teams Data Scientist Relationship Specialty Start Date End Date Nicola Prado MD [address] [place] [address] [place] [phone] PCP - General Family Medicine 06/19/21 documented as of this encounter
--- OUTSIDE RECORDS SUMMARY | 2023-02-03 20:26 | External Medical Summary | Summary of Care ---
Author Name Unknown Organization [facility] Address [address] [place] [address] Phone [phone] Care Team Providers Care Junior Linux Systems Administrator Name Role Phone Nicola Prado MD Primary Care Provide r Reason for Visit * Reason Onset Date Comments Precert Denied 11/01/2022 Encounter Details Date Type Department Care Team Description 11/01/2022 Telephone Gastroenterology, [facility] [address] [place] [address] Marielena Hall CRNP [address] [place] [address] Precert Denied Allergies Active Allergy Reactions Severity [...] Tablet 1 05/05/2022 Active Easy Touch Pen [place] 31G X 8 MM (Insulin Pen Needle)Indications :Type 2 diabetes mellitus with hemoglobin A1c goal of less than 8.0% ([facility]),Type 2 diabetes mellitus with stage 4 chronic kidney disease, unspecified whether terminal block assembler insulin use ([facility]) Use up to six times daily with insulin. DXe11.9 600 Each 3 05/22/2022 Active Albuterol Sulfate HFA 108 (90 Base) MCG/ACT Inhalation Aerosol SolutionIndication s:COPD exacerbation ([facility]),Chronic cough Inhale by mouth 2 Puffs every [...] ns:COPD exacerbation ([facility]) [...] Atherosclerosis of coronary artery bypass graft of [place] heart with angina pectoris 10/13/2022 Encounter for [...] urinary tr act symptoms 07/13/2001 Atherosclerosis of [place] co ronary artery of lime heart without angina pectoris Morbid obesity with [...] use aero chamber. Test performed by Dori WIRE PRODUCTS INSPECTOR CPFT Body mass index (BMI) of 45.0 [...] TIA (transient ischemic attack) 02/04/2016 11/23/2017 Overview: [facility] Anemia of chronic renal failure 07/30/2015 01/27/2017 [...] 07/22/2008 0 Overview: Kianna Lyn, RN 342 1512 Examination following surgery 07/11/2008 Difficult intubation 07/10/2008 02/19/2020 Overview: Patient seen and examined in OR#1.Possible difficult intubation.TM distance about 5 cms.MP 3-4. Will plan FOB electively Due to current situation. EXAMINATION OF PARTICIPANT IN CLINICAL TRIAL-gen omics 07/04/2008 05/30/2009 Overview: Renamed Per Clinical Trials Billing Project. Study Titile: Genomic Markers for Patients with Cardiovascular Disease Project #[id number] PI: Miriam Roque MD Please call [phone] with study related questions Chronic coronary artery [...] at goal 07/04/2008 9 GENOMICS CARDIO RESEARCH OTHER*[id number] 200803/23/2016 Overview: Renamed Per Clinical Trials Billing Project. Study Titile: Genomic Markers for Patients with Cardiovascular Disease Project #[id number] PI: Miriam Roque MD Please call [phone] with study related questions Kidney disease, chronic, [...] Miscellaneous Notes * Telephone Encounter - KATHE Tellez - [...] auth end date: N/A Rx Insurance Info: [facility] Rx Benefits Verified through/on date: 11/02/2022 Referral (TE) received from: [facility] Thank you, Aviva Lombardo Medication Bottle Booth Attendant 11/03/2022, 9:55 AM * Telephone Encounter - KATHE Tellez - 11/01/2022 12:42 PM EDT [facility] Authorization Submission Submission Information: Medication: SANDOSTATIN LAR DEPOT 10 MG KT [facility] Authorization #/Mendes: [id number] Thank you, Aviva Lombardo Medication Bottle Booth Attendant 11/01/2022, 12:43 PM * Telephone Encounter - Tobin Flowers, development officer - 11/01/2022 9:22 AM EDT New or re-auth: new Patient Maurisio Beltran needs a prior authorization for their sandostatin through their [facility] insurance. ID: [id number] BIN:[id number] PCN:[id number] Target ship date is n/a. Thank you very much, Elaine Flowers Marketing Researcher, [facility] 11/01/2022 9:23 AM\\ documented in this encounter Plan of Treatment Upcoming Encounters Date Type Specialty Care Team Description 11/17/2022 Office Visit Pharmacy [address] [place] [address] 11/19/2022 Imaging Radiology 11/22/2022 Imaging Radiology 11/30/2022 Office Visit Urology Denny Armando MD [address] [address] [place] [address] 12/13/2022 Office Visit Cardiology Nevaeh Linda PA-C [facility] [place] [address] 12/15/2022 Office Visit Family Medicine Nicola Prado MD [address] [place] [address] [place] [address] 12/20/2022 Office Visit Dermatology Meron Aragon PA-C [address] [place] [address] [place] [address] 01/28/2023 Office Visit Nephrology Verito Jovel PA-C [address] [place] [address] 03/04/2023 Office Visit Gastroenterology Marielena Hall CRNP [address] [place] [address] 03/29/2023 Office Visit Cardiology Blair Hannah PA-C [address] [place] [address] 06/02/2023 Nurse Only Ancillary Nurse Neeraj Annual [address] [place] [address] 10/12/2023 Office Visit Sleep Disorders Eulalia Milligan DO [address] [place] [address] 10/25/2023 Cardiac Studies Cardiology Keith Pickard [facility] [address] [place] [address] Scheduled Procedures Name Priority Associated Diagnoses Date/Ti [...] encounter Medical Devices Implanted Type Area Rn New Graduate Device Identifier Shelf Expiration Date Model / Serial / Lot Sut Steel 6 [id number] - [id number] Implanted:Qty: 6 on 07/10/2008 at OR [facility] N/A: Chest DO NOT USE 08/14/2012 [id number] / / [id number] documented as of this encounter Advance Directives Documents on File Type Date Recorded Patient Child Psychometrist Expl anation Power of Border Patrol Agent 06/26/2019 POWER OF A TTORNEY Advance Directives [...] the patient have Health Care Power of Border Patrol Agent? No Code Status History Code Status Date [...] patient or by statute hierarchy) Care Teams Junior Linux Systems Administrator Relationship Specialty Start Date End Date Nicola Prado MD [address] [place] [address] [place] [address] PCP - General Family Medicine 06/19/21 documented as of this encounter
--- OUTSIDE RECORDS SUMMARY | 2023-02-03 20:26 | External Medical Summary | Summary of Care ---
Author Name Unknown Organization [facility] Address [address] [place] [address] Phone [phone] Care Team Providers Care Railroad Operator Name Role Phone Nicola Prado MD Primary Care Provide r Reason for Visit * Reason Onset Date Comments Advice 10/29/2022 [facility] Encounter Details Date Type Department Care Team Description 10/29/2022 Telephone Gastroenterology, [facility] [address] [place] [address] Marielena Giraldo CRNP [address] [place] [address] Advice ([facility]) Allergies Active Allergy Reactions Severity Noted Date [...] Tablet 1 05/05/2022 Active Easy Touch Pen [place] 31G X 8 MM (Insulin Pen Needle)Indications :Type 2 diabetes mellitus with hemoglobin A1c goal of less than 8.0% ([facility]),Type 2 diabetes mellitus with stage 4 chronic kidney disease, unspecified whether halfway insulin use ([facility]) Use up to six times daily with insulin. DXe11.9 600 Each 3 05/22/2022 Active Albuterol Sulfate HFA 108 (90 Base) MCG/ACT Inhalation Aerosol SolutionIndication s:COPD exacerbation ([facility] [...] Release 12 Hour (Mucinex)Indicatio ns:COPD exacerbation ([facility] [...] Atherosclerosis of coronary artery bypass graft of [place] heart with angina pectoris 10/13/2022 Encounter for [...] urinary tr act symptoms 07/13/2001 Atherosclerosis of [place] co ronary artery of [place] heart without angina pectoris Morbid obesity with [...] use aero chamber. Test performed by Dori ACADEMIC AFFAIRS SPECIALIST CPFT Body mass index (BMI) of [...] MANAGEMENT 07/22/2008 0 Overview: Kianna Lyn, RN 646 4236 Examination following surgery 07/11/2008 Difficult intubation 07/10/2008 02/19/2020 Overview: Patient seen and examined in OR#1.Possible difficult intubation.TM distance about 5 cms.MP 3-4. Will plan FOB electively Due to current situation. EXAMINATION OF PARTICIPANT IN CLINICAL TRIAL-gen omics 07/04/2008 05/30/2009 Overview: Renamed Per Clinical Trials Billing Project. Study Titile: Genomic Markers for Patients with Cardiovascular Disease Project #[id number] PI: Miriam Roque MD Please call [phone] with study related questions Chronic coronary artery [...] at goal 07/04/2008 9 GENOMICS CARDIO RESEARCH OTHER*[id number] 200803/23/2016 Overview: Renamed Per Clinical Trials Billing Project. Study Titile: Genomic Markers for Patients with Cardiovascular Disease Project #[id number] PI: Miriam Roque MD Please call [phone] with study related questions Kidney disease, chronic, [...] arrange this through his HH. He uses [employer] He provided me with [phone] Gastro Pre-Cert Request Specialty Medication: No. Medication/Disease State Information: Medication: Octreotide Acetate 10 MG Intramuscular Kit (SandoSTATIN LAR [place]) 1 Kit 12 10/29/2022 Sig - Route: Inject 10 mg into a large muscle every month. - Intramuscular Diagnosis (including ICD-10): D64.9 Anemia Site of care: Self-administered - route pre-cert request to [facility] Office Information: Prescriber: FRANCHESKA Collins can you [...] a script of the OCtreotide LAR to [facility] specialty pharmacy. May need prior auth [...] Encounters Date Type Specialty Care Team Description 11/03/2022 Office Visit Family Medicine Alissa Drew PA-C [address] [place] [address] [place] [address] 11/17/2022 Office Visit [address] [place] [address] 11/19/2022 Imaging Radiology 11/22/2022 Imaging Radiology 11/30/2022 Office Visit Urology Denny Armando MD [address] [address] [place] [address] 12/13/2022 Office Visit Cardiology Nevaeh Linda PA-C [facility] [place] [address] 12/15/2022 Office Visit Family Medicine Nicola Prado MD [address] [place] [address] [place] [address] 12/20/2022 Office Visit Dermatology Meron Aragon PA-C [address] [place] [address] [place] [address] 01/28/2023 Office Visit Nephrology Verito Jovel PA-C [address] [place] [address] 03/04/2023 Office Visit Gastroenterology Marielnea Giraldo CRNP [address] [place] [address] 03/29/2023 Office Visit Cardiology Blair Hannah PA-C [address] [place] [address] 06/02/2023 Nurse Only Ancillary Nurse Neeraj Annual [address] [place] [address] 10/12/2023 Office Visit Sleep Disorders Eulalia Milligan DO [address] [place] [address] 10/25/2023 Cardiac Studies Cardiology Keith Pickard [facility] [address] [place] [address] Scheduled Procedures Name Priority Associated Diagnoses Date/Ti [...] ASSESSMENT COMPLETED IN PAST YEAR FOR COPD 10/14/2023 10/13/2022 COLONOSCOPY-EVERY 5 YRS AGES 18-100 10/31/2025 10/31/2020, [...] this encounter Medical Devices Implanted Type Area Family Practice Nurse Practitioner Device Identifier Shelf Expiration Date Model / Serial / Lot Sut Steel 6 M654g - [id number] Implanted:Qty: 6 on 07/10/2008 at OR [facility] N/A: Chest DO NOT USE 08/14/2012 [id number] / / [id number] documented as of this encounter Advance Directives Documents on File Type Date Recorded 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 No Code Status History Code Status Date Activated Date Inactivated Comments Full Code 07/10/2008 6:37 PM 07/21/2008 4:52 PM This o rder reflects the patients wishes and were consensually agreed upon. Full Code 07/04/2008 2:18 PM 07/10/2008 6:30 PM Healthcare Agents on File Name Relationship Healthcare Agent Relationshi p Communication Shane Beltran [facility] Child Health Care Repr esentative (appointed verbally by patient or by statute hierarchy) Care Teams Railroad Operator Relationship Specialty Start Date End Date Nicola Prado MD [address] [place] [address] [place] [address] PCP - General Family Medicine 06/19/21 documented as of this encounter
--- OUTSIDE RECORDS SUMMARY | 2023-02-03 20:26 | External Medical Summary | Summary of Care ---
Author Name Unknown Organization [facility] Address [address] [place] [address] Phone [phone] Care Team Providers Care Natural Gas Shothole Driller Name Role Phone Nicola Prado MD Primary Care Provide r Reason for Visit * Reason Onset Date Comments Advice 10/29/2022 Test Results 10/29/2022 Encounter Details Date Type Department Care Team Description 10/29/[address] [phone] Nicola Prado MD [address] [place] [address] [place] [phone] Advice; Test Results Allergies Active Allergy Reactions Severity [...] 8.0% ([facility]) Test blood sugar up to five times daily; dx E11.9 450 Each 3 12/17/2021 Active OneTouch Ultra In Vitro Strip (Glucose Blood)Indications: Type 2 diabetes mellitus with hemoglobin A1c goal of less than 8.0% ([facility]) 3-4 times a day 450 Strip 3 12/17/2021 Active Xiidra 5 % Ophthalmic Solution instill 1 drop by ophthalmic route 2 times every day into both eyes. OK for 90 day supply. 0 01/05/2022 Active NovoLOG FlexPen 100 UNIT/ML Subcutaneous Solution Pen-injector (insulin aspart)Indications :Type 2 diabetes mellitus with hemoglobin A1c goal of less than 8.0% ([facility]) 12 units with breakfast and supper PLUS [...] Tablet 1 05/05/2022 Active Easy Touch Pen [place] 31G X 8 MM (Insulin Pen Needle)Indications :Type 2 diabetes mellitus with hemoglobin A1c goal of less than 8.0% ([facility]),Type 2 diabetes mellitus with stage 4 chronic kidney disease, unspecified whether custodial insulin use ([facility]) Use up to six times daily with insulin. DXe11.9 600 Each 3 05/22/2022 Active Albuterol Sulfate HFA 108 (90 Base) MCG/ACT Inhalation Aerosol SolutionIndication s:COPD exacerbation ([facility]),Chronic cough Inhale by mouth 2 Puffs every [...] Extended Release 12 Hour (Mucinex)Indicatio ns:COPD exacerbation ([facility]) [...] Atherosclerosis of coronary artery bypass graft of [place] heart with angina pectoris 10/13/2022 Encounter for [...] urinary tr act symptoms 07/13/2001 Atherosclerosis of [place] co ronary artery of [place] heart without angina pectoris Morbid obesity with [...] use aero chamber. Test performed by Dori RAG ROOM SUPERVISOR CPFT Body mass index (BMI) of 45.0 [...] (transient ischemic attack) 02/04/2016 11/23/2017 Overview: [facility] Anemia of chronic renal failure 07/30/2015 01/27/2017 [...] 07/22/2008 0 Overview: Kianna Lyn, RN 342 8250 Examination following surgery 07/11/2008 Difficult intubation 07/10/2008 02/19/2020 Overview: Patient seen and examined in OR#1.Possible difficult intubation.TM distance about 5 cms.MP 3-4. Will plan FOB electively Due to current situation. EXAMINATION OF PARTICIPANT IN CLINICAL TRIAL-gen omics 07/04/2008 05/30/2009 Overview: Renamed Per Clinical Trials Billing Project. Study Titile: Genomic Markers for Patients with Cardiovascular Disease Project #[id number] PI: Miriam Roque MD Please call [phone] with study related questions Chronic coronary artery [...] at goal 07/04/2008 9 GENOMICS CARDIO RESEARCH OTHER*[id number] 200803/23/2016 Overview: Renamed Per Clinical Trials Billing Project. Study Titile: Genomic Markers for Patients with Cardiovascular Disease Project #[id number] PI: Miriam Roque MD Please call [phone] with study related questions Kidney disease, chronic, [...] Telephone Encounter - Nicola Prado MD - 11/03/2022 8:55 AM EDT We will repeat the CBC in 1.5 weeks then determine the next step depending on the result Clinical note: - pt has had multiple EGD and colonoscopy * Telephone Encounter - KATHE Tillman - 11/01/2022 9:38 AM EDT Patient calling in to check on the status of previous message. Patient states his stool is black all the time and he wants to know why no one has called him back to discuss test results. Please advise * Telephone Encounter - Nicola Prado MD - 10/29/2022 4:50 PM EDT Please ask the pt - whether he has any bloody or black stool - I recommend that we repeat the CBC in 2 weeks * Telephone Encounter - KATHE Rodriguez - 10/29/2022 2:00 PM EDT Pt left GI know that blood count has gone down to 10.7. They have not gotten back to him. Kidney doctor said as long as he is 11 or above, he is ok. Pt is taking injections twice a day that is supposed to stop the bleeding. Pt is concerned that blood count is under 11. Would like a call from Dr. Prado. [phone] . documented in this encounter Plan of Treatment Upcoming Encounters Date Type Specialty Care Team Description 11/03/2022 Office Visit Family Medicine Alissa Drew PA-C [address] [place] [address] [place] [address] Arrived 11/17/2022 Office Visit [address] [place] [address] 11/19/2022 Imaging Radiology 11/22/2022 Imaging Radiology 11/30/2022 Office Visit Urology Denny Armando MD [address] [place] [address] [place] [address] 12/13/2022 Office Visit Cardiology Nevaeh Linda PA-C [address] [place] [address] [place] [address] 12/15/2022 Office Visit Family Medicine Nicola Prado MD [address] [place] [address] [place] [address] 12/20/2022 Office Visit Dermatology Meron Aragon PA-C [address] [place] [address] [place] [address] 01/28/2023 Office Visit Nephrology Verito Jovel PA-C [facility] [place] [address] 03/04/2023 Office Visit Gastroenterology Marielena Hall CRNP [address] [place] [address] 03/29/2023 Office Visit Cardiology Blair Hannah PA-C [address] [place] [address] 06/02/2023 Nurse Only Ancillary Nurse Neeraj [address] [place] [address] 10/12/2023 Office Visit Sleep Disorders Eulalia Milligan DO [address] [place] [address] 10/25/2023 Cardiac Studies Cardiology Keith Pickard [facility] [address] [place] [address] Scheduled Orders Name Type Priority Associated Diagnoses Orde r Schedule CBC WITH WBC DIFFERENTIAL Lab Routine Anemia, unspecified type Expected: 11/12/2022 (Approximate), Expires: 10/30/2023 Scheduled Procedures Name Priority Associated Diagnoses Date/Ti [...] 06/03/2020, Additional history exists HbA1c 04/08/2023 10/06/2022, 03/10/2022, [...] this encounter Medical Devices Implanted Type Area Research Management Associate Device Identifier Shelf Expiration Date Model / Serial / Lot Sut Steel 6 M654g - [id number] Implanted:Qty: 6 on 07/10/[address] [facility] N/A: Chest DO NOT USE 08/14/2012 [id number] / / [id number] documented as of this encounter Visit Diagnoses Diagnosis Anemia, unspecified type- Primary documented in this encounter Advance Directives Documents on File Type Date Recorded Patient Housing Liaison Expl anation Power of Ticket Maker 06/26/2019 POWER OF A TTORNEY Advance [...] the patient have Health Care Power of Ticket Maker? No Code Status History Code Status Date Activated Date Inactivated Comments Full Code 07/10/2008 6:37 PM 07/21/2008 4:52 PM This o rder reflects the patients wishes and were consensually agreed upon. Full Code 07/04/2008 2:18 PM 07/10/2008 6:30 PM Healthcare Agents on File Name Relationship Healthcare Agent Relationshi p Communication Shane Stoddard Adult Child Health Care Repr esentative (appointed verbally by patient or by statute hierarchy) Care Teams Natural Gas Shothole Driller Relationship Specialty Start Date End Date Nicola Prado MD [address] [place] [address] [place] [address] PCP - General Family Medicine 06/19/21 documented as of this encounter
--- OUTSIDE RECORDS SUMMARY | 2023-02-03 20:26 | External Medical Summary | Summary of Care ---
Author Name Unknown Organization [facility] Address [address] [place] [address] Phone [phone] Care Team Providers Care Sweatband Drummer Name Role Phone Nicola Prado MD Primary Care Provide r Reason for Visit * Reason Comments Outpatient Testing Encounter Details Date Type Department Care Team Description 11/03/2022 Laboratory Laboratory [address] [place] [address] [place] [id number] Iron deficiency anemia; Anemia, unspecified type; Diarrhea, unspecified type Allergies Active Allergy Reactions [...] less than 8.0% ([facility]) 3-4 times a day 450 Strip [...] Tablet 1 05/05/2022 Active Easy Touch Pen [place] 31G X 8 MM (Insulin Pen Needle)Indications: Type 2 diabetes mellitus with hemoglobin A1c goal of less than 8.0% ([facility]),Type 2 diabetes mellitus with stage 4 chronic kidney disease, unspecified whether senior care insulin use ([facility]) Use up to six times daily with insulin. DXe11.9 600 Each 3 05/22/2022 Active Albuterol Sulfate HFA 108 (90 Base) MCG/ACT Inhalation Aerosol SolutionIndications :COPD exacerbation ([facility]),Chronic cough Inhale [...] Extended Release 12 Hour (Mucinex)Indication s:COPD exacerbation ([facility]) Take 1 Tablet by mouth 2 times a day as needed for Congestion. Take with plenty of water. Do not cut, crush or chew 40 Tablet 0 10/13/2022 Active Tresiba FlexTouch 200 UNIT/ML Subcutaneous Solution Pen-injector (Insulin Degludec)Indication s:Type 2 diabetes mellitus with hemoglobin A1c goal of less than 8.0% ([facility]) Inject 100 Units under the skin [...] Atherosclerosis of coronary artery bypass graft of [place] heart with angina pectoris 10/13/2022 Encounter for [...] diastolic heart failure 02/21/19 Pulmonary hypertension 11/04/2016 Henning's esophagus with dysplasia [...] urinary tr act symptoms 07/13/2001 Atherosclerosis of [place] co ronary artery of [place] heart without angina pectoris Morbid obesity with [...] 07/19/2019 Encounter for surveillance of abnormal nevi 08/1 03/2018 02/19/2020 Overview: Moderately atypical nevus (central upper back) COPD, group B, by GOLD 2017 classification 07/2403/28/2019 Overview: Per COPD GOLD Classification 12/13/18 In Check dial performed to assess inhaler technique: Name of inhaler Albuterol Pass: Yes at 50L/min. Encourage to take nice slow deep breaths and use aero chamber. Test performed by Dori METAL MELTER CPFT Body mass index (BMI) of 45.0 [...] MANAGEMENT 07/22/2008 0 Overview: Kianna Lyn RN [phone] Examination following surgery 07/11/2008 Difficult intubation 07/10/2008 02/19/2020 Overview: Patient seen and examined in OR#1.Possible difficult intubation.TM distance about 5 cms.MP 3-4. Will plan FOB electively Due to current situation. EXAMINATION OF PARTICIPANT IN CLINICAL TRIAL-gen omics 07/04/2008 05/30/2009 Overview: Renamed Per Clinical Trials Billing Project. Study Titile: Genomic Markers for Patients with Cardiovascular Disease Project #[id number] PI: Miriam Roque MD Please call [phone] with study related questions Chronic coronary artery [...] at goal 07/04/2008 9 GENOMICS CARDIO RESEARCH OTHER*[id number] 200803/23/2016 Overview: Renamed Per Clinical Trials Billing Project. Study Titile: Genomic Markers for Patients with Cardiovascular Disease Project #[id number] PI: Miriam Roque MD Please call [phone] with study related questions Kidney disease, chronic, [...] Specialty Care Team Description 11/17/2022 Office Visit [address] [place] [address] 11/19/2022 Imaging Radiology 11/22/2022 Imaging Radiology 11/30/2022 Office Visit Urology Denny Armando MD [address] [place] [address] [place] [address] 12/13/2022 Office Visit Cardiology Nevaeh Linda PA-C [address] [place] [address] [place] [address] 12/15/2022 Office Visit Family Medicine Nicola Prado MD [address] [place] [address] [place] [address] 12/20/2022 Office Visit Dermatology Meron Aragon PA-C [address] [place] [address] [place] [address] 01/28/2023 Office Visit Nephrology Verito Jovel PA-C [address] [facility] [place] [address] 03/04/2023 Office Visit Gastroenterology Marielena Hall CRNP [address] [place] [address] 03/29/2023 Office Visit Cardiology Blair Hannah PA-C [address] [place] [address] 06/02/2023 Nurse Only Ancillary Nurse Neeraj [address] [place] [address] 10/12/2023 Office Visit Sleep Disorders Eulalia Milligan DO [address] [place] [address] 10/25/2023 Cardiac Studies Cardiology Keith Pickard [facility] [address] [place] [address] Pending Results Name Type Priority Associated Diagnoses Date /Time CBC WITH WBC DIFFERENTIAL Lab Routine Iron deficiency anemia 11/03/2022 9:14 AM EDT COMPREHENSIVE METABOLIC PANEL Lab Routine Diarrhea, unspecified type 11/03/2022 9:14 AM EDT CBC Lab Routine Iron deficiency anemia 11/03/2022 9:14 AM EDT DIFFERENTIAL, AUTOMATED Lab Routine Iron deficiency anemia 11/03/2022 9:14 AM EDT Scheduled Procedures Name Priority Associated [...] this encounter Medical Devices Implanted Type Area Postmaster Device Identifier Shelf Expiration Date Model / Serial / Lot Sut Steel 6 [id number] - [id number] Implanted:Qty: 6 on 07/10/2008 at [place] [facility] [place]A: Chest DO NOT USE 08/14/2012 [id number] / / [id number] documented as of this encounter Visit Diagnoses Diagnosis Iron deficiency anemia Iron deficiency anemia, unspecified Anemia, unspecified type Diarrhea, unspecified type documented in this encounter Advance Directives Documents on File Type Date Recorded 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 No Code Status History Code Status [...] patient or by statute hierarchy) Care Teams Sweatband Drummer Relationship Specialty Start Date End Date Nicola Prado MD [address] [place] [address] [place] [address] PCP - General Family Medicine 06/19/21 documented as of this encounter
--- OUTSIDE RECORDS SUMMARY | 2023-02-03 20:26 | External Medical Summary | Summary of Care ---
Author Name Unknown Organization [facility] Address [address] [place] [address] Phone [phone] Care Team Providers Care Sizer Hand Name Role Phone Nicola Prado MD Primary Care Provide r Reason for Visit * Reason Onset Date Comments Advice 10/29/2022 Test Results 10/29/2022 Encounter Details Date Type Department Care Team Description 10/29/[address] [phone] Nicola Prado MD [address] [place] [address] [place] [phone] Advice; Test Results Allergies Active Allergy Reactions [...] Tablet 1 05/05/2022 Active Easy Touch Pen [employer] 31G X 8 MM (Insulin Pen Needle)Indications :Type 2 diabetes mellitus with hemoglobin A1c goal of less than 8.0% ([facility]),Type 2 diabetes mellitus with stage 4 chronic kidney disease, unspecified whether mcfp insulin use ([facility]) [...] urinary tr act symptoms 07/13/2001 Atherosclerosis of [place] co ronary artery [...] use aero chamber. Test performed by Dori PEDIATRIC DENTAL HYGIENIST CPFT Body mass index (BMI) of 45.0 [...] 07/22/2008 0 Overview: Kianna Lyn, RN [phone] Examination following surgery 07/11/2008 Difficult intubation 07/10/2008 02/19/2020 Overview: Patient seen and examined in OR#1.Possible difficult intubation.TM distance about 5 cms.MP 3-4. Will plan FOB electively Due to current situation. EXAMINATION OF PARTICIPANT IN CLINICAL TRIAL-gen omics 07/04/2008 05/30/2009 Overview: Renamed Per Clinical Trials Billing Project. Study Titile: Genomic Markers for Patients with Cardiovascular Disease Project #[id number] PI: Miriam Roque MD Please call [phone] with study related questions Chronic coronary artery [...] at goal 07/04/2008 9 GENOMICS CARDIO RESEARCH OTHER*[id number] 200803/23/2016 Overview: Renamed Per Clinical Trials Billing Project. Study Titile: Genomic Markers for Patients with Cardiovascular Disease Project #[id number] PI: Miriam Roque MD Please call [phone] with study related questions Kidney disease, chronic, [...] encounter Miscellaneous Notes * Telephone Encounter - Frida Mckeon CMA - 11/03/2022 12:13 PM EDT Provider to address: NA Reason for Call: Advice and Test Results Contact: Telephone Call Contact Type: Test Results Outcome: I called and let him know. He had labs drawn again this morning by Dr. Fabian but the results aren't back. He said he is going away away but he will have the labs drawn when for Dr. Vizcaino whenhe gets back. Total Time including non face to face (minutes): 5 * Telephone Encounter - Nicola Prado MD [...] Would like a call from Dr. Prado. [phone] . documented in this encounter Plan of Treatment Upcoming Encounters Date Type Specialty Care Team Description 11/17/2022 Office Visit [address] [place] [address] 11/19/2022 Imaging Radiology 11/22/2022 Imaging Radiology 11/30/2022 Office Visit Urology Denny Armando MD [address] [address] [place] [address] 12/13/2022 Office Visit Cardiology Nevaeh Linda PA-C [address] [place] [address] 12/15/2022 Office Visit Family Medicine Nicola Prado MD [address] [place] [address] [place] [address] 12/20/2022 Office Visit Dermatology Meron Aragon PA-C [address] [place] [address] [place] [address] 01/28/2023 Office Visit Nephrology [facility]C [address] [facility] [address] 03/04/2023 Office Visit Gastroenterology Marielena Hall CRNP [address] [place] [address] 03/29/2023 Office Visit Cardiology Blair Hannah PA-C [address] [place] [address] 06/02/2023 Nurse Only Ancillary Nurse Neeraj [facility] [address] [place] [address] [place] [address] 10/12/2023 Office Visit Sleep Disorders Eulalia Milligan DO [address] [place] [address] 10/25/2023 Cardiac Studies Cardiology Keith Pickard [facility] [address] [place] [address] Scheduled Procedures Name Priority Associated Diagnoses Date/Ti [...] this encounter Medical Devices Implanted Type Area Musician Instrumental Device Identifier Shelf Expiration Date Model / Serial / Lot Sut Steel 6 [id number] - [id number] Implanted:Qty: 6 on 07/10/2008 at [place] [facility] [place] N/A: Chest DO NOT USE 08/14/2012 [id number] / / [id number] documented as of this encounter Visit Diagnoses Diagnosis Anemia, unspecified type- Primary documented in this encounter Advance Directives Documents on File Type Date Recorded 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 No Code Status History Code Status Date [...] patient or by statute hierarchy) Care Teams Sizer Hand Relationship Specialty Start Date End Date Nicola Prado MD [address] [place] [address] [place] [address] PCP - General Family Medicine 06/19/21 documented as of this encounter
--- OUTSIDE RECORDS SUMMARY | 2023-02-03 20:27 | External Medical Summary | Summary of Care ---
Author Name Unknown Organization [facility] Address [address] [place] [address] Phone [phone] Care Team Providers Care Lace Stripper Name Role Phone Nicola Prado MD Primary Care Provide r Reason for Visit * Reason Onset Date Comments Advice 10/29/2022 [facility] Encounter Details Date Type Department Care Team Description 10/29/2022 Telephone G[facility]enterology[facility] [address] [place] [address] Marielena Giraldo CRNP [address] [place] [address] Advice ([facility]) Allergies Active Allergy Reactions Severity Noted Date Comments Hydromorphone High 09/20/2021 Other reaction(s): Nausea Other reaction(s): Nausea 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/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 Other reaction(s): AMS Other reaction(s): AMS Prasugrel 04/02/2016 bleeding Prednisone High 09/20/2021 Other reaction(s): INCREASE BLOOD SUGAR Other reaction(s): INCREASE BLOOD SUGAR documented as of this encounter (statuses as of 11/02/2022) Medications Medication Sig Dispensed Refills Start Date [...] of less than 8.0% ([facility]) 12 units with breakfast and [...] 1 05/05/2022 Active Easy Touch Pen [place] 31G X 8 MM (Insulin Pen Needle)Indications :Type 2 diabetes mellitus with hemoglobin A1c goal of less than 8.0% ([facility]),Type 2 diabetes mellitus with stage 4 chronic kidney disease, unspecified whether fdc insulin use ([facility]) Use up to six times daily with insulin. DXe11.9 600 Each 3 05/22/2022 Active Albuterol Sulfate HFA 108 (90 Base) MCG/ACT Inhalation Aerosol SolutionIndication s:COPD exacerbation ([facility]),Chronic cough Inhale by mouth 2 [...] Extended Release 12 Hour (Mucinex)Indicatio ns:COPD exacerbation ([facility]) Take 1 Tablet by mouth 2 times a day as needed for Congestion. Take with plenty of water. Do not cut, crush or chew 40 Tablet 0 10/13/2022 Active Tresiba FlexTouch 200 UNIT/ML Subcutaneous Solution Pen-injector (Insulin Degludec)Indicatio ns:Type 2 diabetes mellitus with hemoglobin A1c goal of less than 8.0% ([facility]) Inject 100 Units under the [...] as of this encounter (statuses as of 11/02/2022) Active Problems Problem Noted Date Atherosclerosis of [...] as of this encounter (statuses as of 11/02/2022) Resolved Problems Problem Noted Date Resolved Date [...] use aero chamber. Test performed by Dori CLINICAL NURSING PROFESSOR CPFT Body mass index (BMI) of 45.0 [...] ischemic attack) 02/04/2016 11/23/2017 Overview: [facility] Anemia of chronic renal failure [...] MANAGEMENT 07/22/2008 0 Overview: Kianna Lyn, RN [phone] Examination following surgery 07/11/2008 Difficult intubation 07/10/2008 02/19/2020 Overview: Patient seen and examined in OR#1.Possible difficult intubation.TM distance about 5 cms.MP 3-4. Will plan FOB electively Due to current situation. EXAMINATION OF PARTICIPANT IN CLINICAL TRIAL-gen omics 07/04/2008 05/30/2009 Overview: Renamed Per Clinical Trials Billing Project. Study Titile: Genomic Markers for Patients with Cardiovascular Disease Project #[id number] PI: Miriam Roque MD Please call [phone] with study related questions Chronic coronary artery [...] at goal 07/04/2008 9 GENOMICS CARDIO RESEARCH OTHER*[id number] 200803/23/2016 Overview: Renamed Per Clinical Trials Billing Project. Study Titile: Genomic Markers for Patients with Cardiovascular Disease Project #[id number] PI: Miriam Roque MD Please call [phone] with study related questions Kidney disease, chronic, [...] as of this encounter (statuses as of 11/02/2022) Immunizations Name Administration Dates Next Due COVID-19 [...] arrange this through his HH. He uses [facility] He provided me with [phone] Gastro Pre-Cert Request Specialty Medication: No. Medication/Disease State Information: Medication: Octreotide Acetate 10 MG Intramuscular Kit (SandoSTATIN LAR [place]) 1 Kit 12 10/29/2022 Sig - Route: Inject 10 mg into a large muscle every month. - Intramuscular Diagnosis (including ICD-10): D64.9 Anemia Site of care: Self-administered - route pre-cert request to [facility] Office Information: Prescriber: FRANCHESKA Collins can you [...] a script of the OCtreotide LAR to [facility] specialty pharmacy. May need prior auth for [...] Visit Family Medicine Alissa Drew PA-C [address] [place] [address] [place] [address] 11/17/2022 Office Visit [address] [place] [address] 11/19/2022 Imaging Radiology 11/22/2022 Imaging Radiology 11/30/2022 Office Visit Urology Denny Armando MD [address] [address] [place] [address] 12/13/2022 Office Visit Cardiology Nevaeh Linda PA-C [address] [facility] [place] [address] 12/15/2022 Office Visit Family Medicine Nicola Prado MD [address] [place] [address] [place] [address] 12/20/2022 Office Visit Dermatology Meron Aragon PA-C [address] [place] [address] [place] [address] 01/28/2023 Office Visit Nephrology Verito Jovel PA-C [address] [place] [address] 03/04/2023 Office Visit Gastroenterology Marielena Giraldo CRNP [address] [place] [address] 03/29/2023 Office Visit Cardiology Blair Hannah PA-C [address] [place] [address] 06/02/2023 Nurse Only Ancillary Nurse Neeraj Annual [address] [place] [address] 10/12/2023 Office Visit Sleep Disorders Eulalia Milligan DO [address] [place] [address] 10/25/2023 Cardiac Studies Cardiology Keith Pickard [facility] [address] [place] [address] Scheduled Procedures Name Priority Associated Diagnoses Date/Ti [...] this encounter Medical Devices Implanted Type Area Manager Rail Device Identifier Shelf Expiration Date Model / Serial / Lot Sut Steel 6 [id number] - [id number] Implanted:Qty: 6 on 07[place]10[place] [facility] [place]: Chest DO NOT USE 08/14/2012 [id number] / / [id number] documented as of this encounter Advance Directives Documents on File Type Date Recorded Patient Respiratory Care Specialist Expl anation Power of Yarder Boss 06/26/2019 POWER OF A TTORNEY Advance Directives [...] the patient have Health Care Power of Yarder Boss? No Code Status History Code Status Date Activated Date Inactivated Comments Full Code 07/10/2008 6:37 PM 07/21/2008 4:52 PM This o rder reflects the patients wishes and were consensually agreed upon. Full Code 07/04/2008 2:18 PM 07/10/2008 6:30 PM Healthcare Agents on File Name Relationship Healthcare Agent Relationshi p Communication Shane Beltran [facility] Child Health Care Repr esentative (appointed verbally by patient or by statute hierarchy) Care Teams Lace Stripper Relationship Specialty Start Date End Date Nicola Prado MD [address] [place] [address] [place] [address] PCP - General Family Medicine 06/19/21 documented as of this encounter
--- OUTSIDE RECORDS SUMMARY | 2023-02-03 20:27 | External Medical Summary | Summary of Care ---
Author Name Unknown Organization [facility] Address [address] [place] [address] Phone [phone] Care Team Providers Care Home Health Outreach Coordinator Name Role Phone Nicola Prado MD Primary Care Provide r Reason for Visit * Reason Onset Date Comments Test Results 11/01/2022 Pt calling [facility] leaving a message for Lab results done last Tuesday. He states kidney counts are looking pretty bad and he doesn't understand why he is getting lab work done if no one calls him back with results. Encounter Details Date Type Department Care Team Description 11/01/2022 Telephone Nephrology, Mindi Robison [address] [place] [address] Quin Narvaez MD [address] [place] [address] Test Results (Pt calling [facility]... Allergies Active Allergy Reactions Severity Noted Date [...] Tablet 1 05/05/2022 Active Easy Touch Pen Yoder 31G X 8 MM (Insulin Pen Needle)Indications:T ype 2 diabetes mellitus with hemoglobin A1c goal of less than 8.0% (HCC),Type 2 diabetes mellitus with stage 4 chronic kidney disease, unspecified whether detention insulin use (HCC) Use up to six times daily with insulin. 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 Take with plenty of water. 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 Test performed by Dori BINDING END STITCHER CPFT Body mass index (BMI) of 45.0 [...] ischemic attack) 02/04/2016 11/23/2017 Overview: [facility] Anemia of chronic renal failure 07/30/2015 [...] 07/22/2008 0 Overview: Kianna Lyn, RN [phone] Examination following surgery 07/11/2008 Difficult intubation 07/10/2008 02/19/2020 Overview: Patient seen and examined in OR#1.Possible difficult intubation.TM distance about 5 cms.MP 3-4. Will plan FOB electively Due to current situation. EXAMINATION OF PARTICIPANT IN CLINICAL TRIAL-gen omics 07/04/2008 05/30/2009 Overview: Renamed Per Clinical Trials Billing Project. Study Titile: Genomic Markers for Patients with Cardiovascular Disease Project #[id number] PI: Miriam Roque MD Please call [phone] with study related questions Chronic coronary artery [...] at goal 07/04/2008 9 GENOMICS CARDIO RESEARCH OTHER*[id number] 200803/23/2016 Overview: Renamed Per Clinical Trials Billing Project. Study Titile: Genomic Markers for Patients with Cardiovascular Disease Project #[id number] PI: Miriam Roque MD Please call [phone] with study related questions Kidney disease, chronic, [...] mRNA, LNP-s, No Pre serve, 2-Dose Series (Storie) 12/09/2020,05/09/2020,04/11/2020 COVID-19, LNP-s, No Preserve , Juan [...] encounter Miscellaneous Notes * Addendum Note - Eber Duran LPN - 11/02/2022 1:52 PM EDTAddended by: EBER DURAN on: 11/02/2022 01:52 PM Modules accepted: Orders * Telephone Encounter - Eber Duran LPN - 11/02/2022 1:46 PM EDT Spoke with pt. Reassured him that labs are steady. He would like to repeat lab work in six weeks. Lab order placed * Telephone Encounter - Quin Narvaez MD - 11/01/2022 4:52 PM EDT myG accessed 10/27; I have no way to know if that's pt or other person he's given permission to; if myG accessed recently, I often will use myG Recommend if possilbe noting somewhere his preference for lab updates so that we/other providers donot use/send out myG updates; recommend also if he hasn't heard about results that he get family tohelp check myG I apologize for not remembering that aabout him. Labs really are steady; we are doing close in / 3 month follow up >we can repeat bmp in 6 wks if he'd feel better but unless communication issues above noted may recur/may have same situation unless we can get computer system updated better * Telephone Encounter - Eber Duran LPN - 11/01/2022 4:10 PM EDT Spoke with pt about results. He is very concerned about lab results. He stated they have gotten worse. I did advise they have stayed similar through the last year. He is still very concerned. Pt stated he cannot see very well so he is unable to reach myg messages. * Telephone Encounter - Quin Narvaez MD - 11/01/2022 2:00 PM EDT Please contact patient by telephone regarding message below I reviewed these labs and send him a message on October 29 in my [facility] the kidney labs were stable and to continue the same. I was not the primary person ordering these labs so it sometimes takes me a little longer to get back to patient's about labs and which I am just copied not themain person ordering Blood tests of kidney function are stable and about where they have been for the past year. Uric acid levels at goal. Stable chronic anemia, at least some of which likely relates to his CKD. Would not make changes at this time * Telephone Encounter - KIM Cifuentes - 11/01/2022 12:03 PM EDT Pt calling [facility] leaving a message for Lab results done last Tuesday. He states kidney counts are looking pretty bad and he doesn't understand why he is getting lab work done if no one calls him back with results. documented in this encounter Plan of Treatment Upcoming Encounters Date Type Specialty Care Team Description 11/03/2022 Office Visit Family Medicine Alissa Drew PA-C [address] [place] [address] [place] [address] 11/17/2022 Office Visit [address] [place] [address] 11/19/2022 Imaging Radiology 11/22/2022 Imaging Radiology 11/30/2022 Office Visit [facility] [address] [place] [phone] 12/13/2022 Office Visit Cardiology Nevaeh Linda PA-C [address] [facility] [place] [address] 12/15/2022 Office Visit Family Medicine Nicola Prado MD [address] [place] [address] [place] [address] 12/20/2022 Office Visit Dermatology Meron Aragon PA-C [address] [place] [address] [place] [address] 01/28/2023 Office Visit Nephrology Verito Jovel PA-C [address] [place] [address] 03/04/2023 Office Visit Gastroenterology Marielena Hall CRNP [address] [place] [address] 03/29/2023 Office Visit Cardiology Blair Hannah PA-C [address] [place] [address] 06/02/2023 Nurse Only Ancillary Neeraj Nurse [address] [place] [address] 10/12/2023 Office Visit Sleep Disorders Eulalia Milligan DO [address] [place] [address] 10/25/2023 Cardiac Studies [facility] [address] [place] [address] Scheduled Orders Name Type Priority Associated Diagnoses Orde r Schedule BASIC METABOLIC PANEL Lab Routine 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) Expected: 12/02/2022 (Approximate), Expires: 11/03/2023 Scheduled Procedures Name Priority [...] this encounter Medical Devices Implanted Type Area Economic Forecaster Device Identifier Shelf Expiration Date Model / Serial / Lot Sut Steel 6 [id number] - [id number] Implanted:Qty: 6 on 07/10/2008 at [place] [facility] [place] N/A: Chest DO NOT USE 08/14/2012 [id number] / / [id number] documented as of this encounter Visit Diagnoses Diagnosis 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 No Code Status History Code Status Date [...] patient or by statute hierarchy) Care Teams Home Health Outreach Coordinator Relationship Specialty Start Date End Date Nicola Prado MD [address] [place] [address] [place] [phone] PCP - General Family Medicine 06/19/21 documented as of this encounter
--- OUTSIDE RECORDS SUMMARY | 2023-02-03 20:27 | External Medical Summary ---
Author Name Unknown Address Unknown Organization K01:[place] [facility] [place] [address] [facility] [address] Laboratory Report Ordering Provider Test Date Status [place]KY [place] 11/03/2022 09:14:10 Final Observation Date Value Abnormality Reference (Units ) Status SYNC LEUKOCYTES IN BLOOD BY AUTOMATED COUNT 11/03/2022 09:14:10 10.21 4.00-10.80 (K/uL) Final Segs 11/03/2022 09:14:10 69.8 40.0-75.0 (%) Final Lymphs % 11/03/2022 09:14:10 16.8 Below low normal 18.0-42.0 (%) Final Monos 11/03/2022 09:14:10 4.5 1.0-11.0 (%) Final Eosinophils 11/03/2022 09:14:10 7.8 Above high normal 0.0-6.0 (%) Final Basos 11/03/2022 09:14:10 0.6 0.0-2.0 (%) Final Immature Granulocyte, Percent 11/03/2022 09:14:10 0.5 0.0-2.0 (%) Final Absolute Segs 11/03/2022 09:14:10 7.12 1.80-7.70 (K/uL) Final Lymphs, absolute 11/03/2022 09:14:10 1.72 1.00-4.80 (K/ul) Final Monos, Abs 11/03/2022 09:14:10 0.46 0.00-1.10 (K/uL) Final Eos, Abs 11/03/2022 09:14:10 0.80 Above high normal 0.00-0.70 (K/uL) Final Basos, Abs 11/03/2022 09:14:10 0.06 0.00-0.20 (K/uL) Final Immature Granulocytes, Number 11/03/2022 09:14:10 0.05 0.00-0.20 (K/uL) Final Performing Location [facility] [place] [address] [facility] [address]
--- OUTSIDE RECORDS SUMMARY | 2023-02-03 20:27 | External Medical Summary | Summary of Care ---
Author Name Unknown Organization [facility] Address [address] [place] [address] Phone [phone] Care Team Providers Care Repairer Kiln Car Name Role Phone Nicola Prado MD Primary Care Provide r Reason for Visit * Reason Onset Date Comments Advice 10/29/2022 [facility] Encounter Details Date Type Department Care Team Description 10/29/2022 Telephone Gastroenterology, [facility] [address] [place] [address] Marielena Giraldo CRNP [address] [place] [address] Advice ([facility]) Allergies Active Allergy Reactions Severity [...] Tablet 1 05/05/2022 Active Easy Touch Pen Rawlings 31G X 8 MM (Insulin Pen Needle)Indications :Type 2 diabetes mellitus with hemoglobin A1c goal of less than 8.0% ([facility]),Type 2 diabetes mellitus with stage 4 chronic kidney disease, unspecified whether penitentiary insulin use ([facility]) Use up to six times daily with insulin. DXe11.9 600 Each 3 05/22/2022 Active Albuterol Sulfate HFA 108 (90 Base) MCG/ACT Inhalation Aerosol SolutionIndication s:COPD exacerbation ([facility]),Chronic cough Inhale [...] 12 Hour (Mucinex)Indicatio ns:COPD exacerbation ([facility]) Take 1 Tablet by mouth 2 times a day as needed for Congestion. Take with plenty of water. Do not cut, crush or chew 40 Tablet 0 10/13/2022 Active Tresiba FlexTouch 200 UNIT/ML Subcutaneous Solution Pen-injector (Insulin Degludec)Indicatio ns:Type 2 diabetes mellitus with hemoglobin A1c goal of less than 8.0% ([facility]) Inject 100 Units under the [...] urinary tr act symptoms 07/13/2001 Atherosclerosis of [place] co ronary artery of [place] heart without angina pectoris Morbid obesity with [...] use aero chamber. Test performed by Dori BATCH PLANT SUPERVISOR CPFT Body mass index (BMI) of [...] TIA (transient ischemic attack) 02/04/2016 11/23/2017 Overview: [facility] Anemia of chronic renal [...] MANAGEMENT 07/22/2008 0 Overview: Kianna Lyn, RN [phone] Examination following surgery 07/11/2008 Difficult intubation 07/10/2008 02/19/2020 Overview: Patient seen and examined in OR#1.Possible difficult intubation.TM distance about 5 cms.MP 3-4. Will plan FOB electively Due to current situation. EXAMINATION OF PARTICIPANT IN CLINICAL TRIAL-gen omics 07/04/2008 05/30/2009 Overview: Renamed Per Clinical Trials Billing Project. Study Titile: Genomic Markers for Patients with Cardiovascular Disease Project #[id number] PI: Miriam Roque MD Please call [phone] with study related questions Chronic coronary artery [...] at goal 07/04/2008 9 GENOMICS CARDIO RESEARCH OTHER*[id number] 200803/23/2016 Overview: Renamed Per Clinical Trials Billing Project. Study Titile: Genomic Markers for Patients with Cardiovascular Disease Project #[id number] PI: Miriam Roque MD Please call [phone] with study related questions Kidney disease, chronic, [...] arrange this through his HH. He uses [facility] He provided me with [phone] Gastro Pre-Cert Request Specialty Medication: No. Medication/Disease State Information: Medication: Octreotide Acetate 10 MG Intramuscular Kit (SandoSTATIN LAR [place]) 1 Kit 12 10/29/2022 Sig - Route: Inject 10 mg into a large muscle every month. - Intramuscular Diagnosis (including ICD-10): D64.9 Anemia Site of care: Self-administered - route pre-cert request to [id number] Office Information: Prescriber: FRANCHESKA Collins can you [...] a script of the OCtreotide LAR to [facility] specialty pharmacy. May need prior [...] Specialty Care Team Description 11/17/2022 Office Visit [address] [place] [address] 11/19/2022 Imaging Radiology 11/22/2022 Imaging Radiology 11/30/2022 Office Visit Urology Denny Armando MD [address] [address] [place] [address] 12/13/2022 Office Visit Cardiology Nevaeh Linda PA-C [address] [place] [address] 12/15/2022 Office Visit Family Medicine Nicola Prado MD [address] [place] [address] [place] [address] 12/20/2022 Office Visit Dermatology Meron Aragon PA-C [address] [place] [address] [place] [address] 01/28/2023 Office Visit [facility] [address] 03/04/2023 Office Visit Gastroenterology Marielena Giraldo CRNP [address] [place] [address] 03/29/2023 Office Visit Cardiology Blair Hannah PA-C [address] [place] [address] 06/02/2023 Nurse Only Ancillary Nurse Neeraj Annual [address] [place] [address] 10/12/2023 Office Visit Sleep Disorders Eulalia Milligan DO [address] [place] [address] 10/25/2023 Cardiac Studies Cardiology [facility] [address] [place] [address] Scheduled Procedures Name Priority Associated Diagnoses Date/Ti [...] this encounter Medical Devices Implanted Type Area Imaging Engineer Device Identifier Shelf Expiration Date Model / Serial / Lot Sut Steel 6 [id number] - [id number] Implanted:Qty: 6 on 07/10/2008 at [place] [facility] [place] N/A: Chest DO NOT USE 08/14/2012 [id number] / / [id number] documented as of this encounter Advance Directives Documents on File Type Date Recorded Patient Spanisher Expl anation Power of Hopper Attendant 06/26/2019 POWER OF A TTORNEY Advance [...] the patient have Health Care Power of Hopper Attendant? No Code Status History Code Status [...] or by statute hierarchy) Care Teams Repairer Kiln Car Relationship Specialty Start Date End Date Nicola Prado MD [address] [place] [address] [place] [address] PCP - General Family Medicine 06/19/21 documented as of this encounter
--- OUTSIDE RECORDS SUMMARY | 2023-02-03 20:27 | External Medical Summary ---
Author Name Unknown Address Unknown Organization K01:[facility] [place] - [address] [facility] [address] Laboratory Report Ordering Provider Test Date Status BENJAMIN CREWS 11/03/2022 09:14:10 Final Observation Date Value Abnormality Reference (Units ) Status BUN 11/03/2022 09:14:10 24 Above high normal 6-20 (mg/dL) Final Creatinine 11/03/2022 09:14:10 2.0 Above high normal 0.6-1.2 (mg/dL) Final Glomerular filtration rate/1.73 sq M.predicted [Volume Rate/Area] in Serum, Plasma or Blood by Creatinine-based formula (CKD-EPI) 11/03/2022 09:14:10 33 Below low normal >=60 (mL/min) Final eGFR is calculated based on the CKD-EPI 2020 equation SODIUM 11/03/2022 09:14:10 137 135-146 (m mol/L) Final Potassium 11/03/2022 09:14:10 3.8 3.5-5.1 (m mol/L) Final Cl 11/03/2022 09:14:10 97 Below low normal 98- 107 (mmol/L) Final CO2 11/03/2022 09:14:10 27 22-32 (mmo l/L) Final Anion gap 11/03/2022 09:14:10 13 7-15 (mmol /L) Final Glucose 11/03/2022 09:14:10 63 Below low normal 70- 120 (mg/dL) Final Albumin 11/03/2022 09:14:10 3.7 Below low normal 3.8 -5.0 (g/dL) Final AST (Aspartate aminotransferase) 11/03/2022 09:14:10 23 10-50 (U/L) Fin al Alk Phos 11/03/2022 09:14:10 145 Above high normal 35 -130 (U/L) Final Bilirubin, Total 11/03/2022 09:14:10 0.5 <=1 .2 (mg/dL) Final Calcium 11/03/2022 09:14:10 8.7 8.4-10.2 ( mg/dL) Final Protein 11/03/2022 09:14:10 6.6 6.0-8.3 (g /dL) Final ALT (Alanine aminotransferase) 11/03/2022 09:14:10 29 10-50 (U/L) Ren gomez Performing Location [facility] [place] - [address] [facility] [address]
--- OUTSIDE RECORDS SUMMARY | 2023-02-03 20:27 | External Medical Summary | Summary of Care ---
Author Name Unknown Organization [facility] Address [address] [place] [address] Phone [phone] Care Team Providers Care Simulation Engineer Name Role Phone Nicola Prado MD Primary Care Provide r Reason for Visit * Reason Onset Date Comments Advice 10/29/2022 [facility] Encounter Details Date Type Department Care Team Description 10/29/2022 Telephone Gastroenterology, [facility] [address] [place] [address] Marielena Giraldo CRNP [address] [place] [address] Advice ([facility]) Allergies Active Allergy Reactions Severity [...] of less than 8.0% ([facility]) Test blood sugar up to five [...] of less than 8.0% ([facility]) 12 units with breakfast and supper [...] Tablet 1 05/05/2022 Active Easy Touch Pen [place] 31G X 8 MM (Insulin Pen Needle)Indications :Type 2 diabetes mellitus with hemoglobin A1c goal of less than 8.0% ([facility]),Type 2 diabetes mellitus with stage 4 chronic kidney disease, unspecified whether shelter insulin use ([facility]) Use up to six times daily with insulin. DXe11.9 600 Each 3 05/22/2022 Active Albuterol Sulfate HFA 108 (90 Base) MCG/ACT Inhalation Aerosol SolutionIndication s:COPD exacerbation ([facility]),Chronic cough Inhale by mouth 2 Puffs every 4 hours as needed for Cough or Shortness of Breath. Reports doesn't help 18 g 2 05/27/2022 Active Victoza 18 MG/3ML Subcutaneous Solution Pen-injector (Liraglutide)Indic ations:Type 2 diabetes mellitus with hemoglobin A1c goal of less than 8.0% ([facility]),Type 2 diabetes mellitus with stage 4 chronic kidney disease, with long-term current use of insulin ([facility]) Inject 1.8 mg under the skin [...] Hour (Mucinex)Indicatio ns:COPD exacerbation ([facility]) Take 1 Tablet by mouth 2 times a day as needed for Congestion. Take with plenty of water. Do not cut, crush or chew 40 Tablet 0 10/13/2022 Active Tresiba FlexTouch 200 UNIT/ML Subcutaneous Solution Pen-injector (Insulin Degludec)Indicatio ns:Type 2 diabetes mellitus with hemoglobin A1c goal of less than 8.0% ([facility]) Inject 100 Units under the skin [...] Atherosclerosis of coronary artery bypass graft of [place] heart with angina pectoris 10/13/2022 Encounter for [...] urinary tr act symptoms 07/13/2001 Atherosclerosis of [place] co ronary artery of [place]iatam heart without angina pectoris Morbid obesity with [...] use aero chamber. Test performed by Dori PARQUET FLOOR LAYER CPFT Body mass index (BMI) of 45.0 [...] MANAGEMENT 07/22/2008 0 Overview: Kianna Lyn, RN [phone] Examination following surgery 07/11/2008 Difficult intubation 07/10/2008 02/19/2020 Overview: Patient seen and examined in OR#1.Possible difficult intubation.TM distance about 5 cms.MP 3-4. Will plan FOB electively Due to current situation. EXAMINATION OF PARTICIPANT IN CLINICAL TRIAL-gen omics 07/04/2008 05/30/2009 Overview: Renamed Per Clinical Trials Billing Project. Study Titile: Genomic Markers for Patients with Cardiovascular Disease Project #[id number] PI: Miriam Roque MD Please call [phone] with study related questions Chronic coronary artery [...] at goal 07/04/2008 9 GENOMICS CARDIO RESEARCH OTHER*[id number] 200803/23/2016 Overview: Renamed Per Clinical Trials Billing Project. Study Titile: Genomic Markers for Patients with Cardiovascular Disease Project #[id number] PI: Miriam Roque MD Please call [phone] with study related questions Kidney disease, chronic, [...] arrange this through his HH. He uses [employer] He provided me with [phone] Gastro Pre-Cert Request Specialty Medication: No. Medication/Disease State Information: Medication: Octreotide Acetate 10 MG Intramuscular Kit (SandoSTATIN LAR [place]) 1 Kit 12 10/29/2022 Sig - Route: Inject 10 mg into a large muscle every month. - Intramuscular Diagnosis (including ICD-10): D64.9 Anemia Site of care: Self-administered - route pre-cert request to [id number] Office Information: Prescriber: FRANCHESKA Collins can you [...] Office Visit Family Medicine Alissa Drew PA-C [address] [place] [address] [place] [address] 11/17/2022 Office Visit [address] [place] [address] 11/19/2022 Imaging Radiology 11/22/2022 Imaging Radiology 11/30/2022 Office Visit Urology Denny Armando MD [address] [address] [place] [address] 12/13/2022 Office Visit Cardiology Nevaeh Linda PA-C [address] [facility] [place] [address] 12/15/2022 Office Visit Family Medicine Nicola Prado MD [address] [place] [address] [place] [address] 12/20/2022 Office Visit Dermatology Meorn Aragon PA-C [address] [place] [address] [place] [address] 01/28/2023 Office Visit Nephrology Verito Jovel PA-C [address] [place] [address] [place] [address] 03/04/2023 Office Visit Gastroenterology Marielena Giraldo CRNP [address] [place] [address] 03/29/2023 Office Visit Cardiology Blair Hannah PA-C [address] [place] [address] 06/02/2023 Nurse Only Ancillary Nurse Neeraj Annual [address] [place] [address] 10/12/2023 Office Visit Sleep Disorders Eulalia Milligan DO [address] [place] [address] 10/25/2023 Cardiac Studies Cardiology Keith Pickard [facility] [address] [place] [address] Scheduled Procedures Name Priority Associated Diagnoses Date/Ti [...] this encounter Medical Devices Implanted Type Area Java Engineer Device Identifier Shelf Expiration Date Model / Serial / Lot Sut Nghia 6 [id number] - [id number] Implanted:Qty: 6 on 07/10/2008 at OR [facility] N/A: Chest DO NOT USE 08/14/2012 [id number] / / [id number] documented as of this encounter Advance Directives Documents on File Type Date Recorded Patient Frame Straightener Expl anation Power of Access Control Officer 06/26/2019 POWER OF A TTORNEY Advance [...] the patient have Health Care Power of Access Control Officer? No Code Status History Code Status [...] patient or by statute hierarchy) Care Teams Simulation Engineer Relationship Specialty Start Date End Date Nicola Prado MD [address] [place] [address] [place] [address] PCP - General Family Medicine 06/19/21 documented as of this encounter
--- OUTSIDE RECORDS SUMMARY | 2023-02-03 20:27 | External Medical Summary | Summary of Care ---
Author Name Unknown Organization [facility] Address [address] [place] [address] Phone [phone] Care Team Providers Care Chemical Plant Operator Name Role Phone Nicola Prado MD Primary Care Provide r Reason for Visit * Reason Onset Date Comments Advice 10/29/2022 [facility] Encounter Details Date Type Department Care Team Description 10/29/2022 Telephone Gastroenterology, [facility] [address] [place] [address] Marielena Giraldo CRNP [address] [place] [address] Advice ([facility]) Allergies Active Allergy Reactions Severity Noted Date [...] hemoglobin A1c goal of less than 8.0% ([facility]) Test blood sugar up to [...] hemoglobin A1c goal of less than 8.0% ([facility]) 12 units with breakfast and [...] Tablet 1 05/05/2022 Active Easy Touch Pen [place] 31G X 8 MM (Insulin Pen Needle)Indications :Type 2 diabetes mellitus with hemoglobin A1c goal of less than 8.0% ([facility]),Type 2 diabetes mellitus with stage 4 chronic kidney disease, unspecified whether snf insulin use ([facility]) Use up to six times daily with insulin. DXe11.9 600 Each 3 05/22/2022 Active Albuterol Sulfate HFA 108 (90 Base) MCG/ACT Inhalation Aerosol SolutionIndication s:COPD exacerbation ([facility]),Chronic cough Inhale by mouth 2 Puffs every 4 hours as needed for Cough or Shortness of Breath. Reports doesn't help 18 g 2 05/27/2022 Active Victoza 18 MG/3ML Subcutaneous Solution Pen-injector (Liraglutide)Indic ations:Type 2 diabetes mellitus with hemoglobin A1c goal of less than 8.0% ([facility]),Type 2 diabetes mellitus with stage 4 chronic kidney disease, with long-term current use of insulin ([facility]) Inject 1.8 mg under the [...] Extended Release 12 Hour (Mucinex)Indicatio ns:COPD exacerbation ([facility]) Take 1 Tablet by mouth 2 times a day as needed for Congestion. Take with plenty of water. Do not cut, crush or chew 40 Tablet 0 10/13/2022 Active Tresiba FlexTouch 200 UNIT/ML Subcutaneous Solution Pen-injector (Insulin Degludec)Indicatio ns:Type 2 diabetes mellitus with hemoglobin A1c goal of less than 8.0% ([facility]) Inject 100 Units under the [...] Atherosclerosis of coronary artery bypass graft of [place] heart with angina pectoris 10/13/2022 Encounter for [...] urinary tr act symptoms 07/13/2001 Atherosclerosis of [place] co ronary artery of [place] heart without angina pectoris Morbid obesity with [...] use aero chamber. Test performed by Dori CELL REPAIRER CPFT Body mass index (BMI) of 45.0 [...] MANAGEMENT 07/22/2008 0 Overview: Kianna Lyn, RN [phone] Examination following surgery 07/11/2008 Difficult intubation 07/10/2008 02/19/2020 Overview: Patient seen and examined in OR#1.Possible difficult intubation.TM distance about 5 cms.MP 3-4. Will plan FOB electively Due to current situation. EXAMINATION OF PARTICIPANT IN CLINICAL TRIAL-gen omics 07/04/2008 05/30/2009 Overview: Renamed Per Clinical Trials Billing Project. Study Titile: Genomic Markers for Patients with Cardiovascular Disease Project #[id number] PI: Miriam Roque MD Please call [phone] with study related questions Chronic coronary artery [...] at goal 07/04/2008 9 GENOMICS CARDIO RESEARCH OTHER*[id number] 200803/23/2016 Overview: Renamed Per Clinical Trials Billing Project. Study Titile: Genomic Markers for Patients with Cardiovascular Disease Project #[id number] PI: Miriam Roque MD Please call [phone] with study related questions Kidney disease, chronic, [...] arrange this through his HH. He uses [employer] He provided me with [phone] Gastro Pre-Cert Request Specialty Medication: No. Medication/Disease State Information: Medication: Octreotide Acetate 10 MG Intramuscular Kit (SandoSTATIN LAR [place]) 1 Kit 12 10/29/2022 Sig - Route: Inject 10 mg into a large muscle every month. - Intramuscular Diagnosis (including ICD-10): D64.9 Anemia Site of care: Self-administered - route pre-cert request to [id number] Office Information: Prescriber: FRANCHESKA Collins can you [...] a script of the OCtreotide LAR to [facility] specialty pharmacy. May need prior auth [...] Office Visit Family Medicine Alissa Drew PA-C [address] [place] [address] [place] [address] 11/17/2022 Office Visit [address] [place] [address] 11/19/2022 Imaging Radiology 11/22/2022 Imaging Radiology 11/30/2022 Office Visit Urology Denny Armando MD [address] [address] [place] [address] 12/13/2022 Office Visit Cardiology Nevaeh Linda PA-C [facility] [place] [address] 12/15/2022 Office Visit Family Medicine Nicola Prado MD [address] [place] [address] [place] [address] 12/20/2022 Office Visit Dermatology Meron Aragon PA-C [address] [place] [address] [place] [address] 01/28/2023 Office Visit Nephrology Verito Jovel PA-C [address] [place] [address] [place] [address] 03/04/2023 Office Visit Gastroenterology Marielena Giraldo CRNP [address] [place] [address] 03/29/2023 Office Visit Cardiology Blair Hannah PA-C [address] [place] [address] 06/02/2023 Nurse Only Ancillary Nurse Neeraj Annual [address] [place] [address] 10/12/2023 Office Visit Sleep Disorders Eulalia Milligan DO [address] [place] [address] 10/25/2023 Cardiac Studies Cardiology Keith Pickard [facility] [address] [place] [address] Scheduled Procedures Name Priority Associated Diagnoses Date/Ti [...] this encounter Medical Devices Implanted Type Area Financial Planner Device Identifier Shelf Expiration Date Model / Serial / Lot Sut Nghia 6 [id number] - [id number] Implanted:Qty: 6 on 07/10/2008 at [place] [facility] N/A: Chest DO NOT USE 08/14/2012 [id number] / / [id number] documented as of this encounter Advance Directives Documents on File Type Date Recorded Patient Wire Stretcher Expl anation Power of Workers Compensation Examiner 06/26/2019 POWER OF A TTORNEY Advance [...] the patient have Health Care Power of Workers Compensation Examiner? No Code Status History Code Status [...] patient or by statute hierarchy) Care Teams Chemical Plant Operator Relationship Specialty Start Date End Date Nicola Prado MD [address] [place] [address] [place] [address] PCP - General Family Medicine 06/19/21 documented as of this encounter
--- OUTSIDE RECORDS SUMMARY | 2023-02-03 20:27 | External Medical Summary | Summary of Care ---
Author Name Unknown Organization [facility] Address [address] [place] [address] Phone [phone] Care Team Providers Care Grit Blaster Name Role Phone Nicola Prado MD Primary Care Provide r Reason for Visit * Reason Onset Date Comments Advice 10/29/2022 [facility] Encounter Details Date Type Department Care Team Description 10/29/2022 Telephone Gastroenterology, [facility] [address] [place] [address] Marielena Giraldo CRNP [address] [place] [address] Advice ([facility]) Allergies Active Allergy Reactions Severity Noted Date [...] A1c goal of less than 8.0% ([facility]) Test blood sugar up [...] A1c goal of less than 8.0% ([facility]) 12 units with breakfast [...] Tablet 1 05/05/2022 Active Easy Touch Pen [place] 31G X 8 MM (Insulin Pen Needle)Indications :Type 2 diabetes mellitus with hemoglobin A1c goal of less than 8.0% ([facility]),Type 2 diabetes mellitus with stage 4 chronic kidney disease, unspecified whether correction insulin use ([facility]) Use up to six times daily with insulin. DXe11.9 600 Each 3 05/22/2022 Active Albuterol Sulfate HFA 108 (90 Base) MCG/ACT Inhalation Aerosol SolutionIndication s:COPD exacerbation ([facility]),Chronic cough Inhale by mouth 2 Puffs every 4 hours as needed for Cough or Shortness of Breath. Reports doesn't help 18 g 2 05/27/2022 Active Victoza 18 MG/3ML Subcutaneous Solution Pen-injector (Liraglutide)Indic ations:Type 2 diabetes mellitus with hemoglobin A1c goal of less than 8.0% ([facility]),Type 2 diabetes mellitus with stage 4 chronic kidney disease, with long-term current use of insulin ([facility]) Inject 1.8 mg under [...] Release 12 Hour (Mucinex)Indicatio ns:COPD exacerbation ([facility]) Take 1 Tablet by mouth 2 times a day as needed for Congestion. Take with plenty of water. Do not cut, crush or chew 40 Tablet 0 10/13/2022 Active Tresiba FlexTouch 200 UNIT/ML Subcutaneous Solution Pen-injector (Insulin Degludec)Indicatio ns:Type 2 diabetes mellitus with hemoglobin A1c goal of less than 8.0% ([facility]) Inject 100 Units under [...] Atherosclerosis of coronary artery bypass graft of [place] heart with angina pectoris 10/13/2022 Encounter for [...] urinary tr act symptoms 07/13/2001 Atherosclerosis of [place] co ronary artery of [place] heart without angina pectoris Morbid obesity with [...] use aero chamber. Test performed by Dori SUPERVISOR TANK HOUSE CPFT Body mass index (BMI) of 45.0 [...] MANAGEMENT 07/22/2008 0 Overview: Kianna Lyn, RN [phone] Examination following surgery 07/11/2008 Difficult intubation 07/10/2008 02/19/2020 Overview: Patient seen and examined in OR#1.Possible difficult intubation.TM distance about 5 cms.MP 3-4. Will plan FOB electively Due to current situation. EXAMINATION OF PARTICIPANT IN CLINICAL TRIAL-gen omics 07/04/2008 05/30/2009 Overview: Renamed Per Clinical Trials Billing Project. Study Titile: Genomic Markers for Patients with Cardiovascular Disease Project #[id number] PI: Miriam Roque MD Please call [phone] with study related questions Chronic coronary artery [...] at goal 07/04/2008 9 GENOMICS CARDIO RESEARCH OTHER*[id number] 200803/23/2016 Overview: Renamed Per Clinical Trials Billing Project. Study Titile: Genomic Markers for Patients with Cardiovascular Disease Project #[id number] PI: Miriam Roque MD Please call [phone] with study related questions Kidney disease, chronic, [...] arrange this through his HH. He uses [employer] He provided me with [phone] Gastro Pre-Cert Request Specialty Medication: No. Medication/Disease State Information: Medication: Octreotide Acetate 10 MG Intramuscular Kit (SandoSTATIN LAR [place]) 1 Kit 12 10/29/2022 Sig - Route: Inject 10 mg into a large muscle every month. - Intramuscular Diagnosis (including ICD-10): D64.9 Anemia Site of care: Self-administered - route pre-cert request to [facility] Office Information: Prescriber: FRANCHESKA Collins can you [...] Office Visit Family Medicine Alissa Drew PA-C [address] [place] [address] [place] [address] 11/17/2022 Office Visit [address] [place] [address] 11/19/2022 Imaging Radiology 11/22/2022 Imaging Radiology 11/30/2022 Office Visit Urology Denny Armando MD [address] [address] [place] [address] 12/13/2022 Office Visit Cardiology Nevaeh Linda PA-C [address] [facility] [place] [address] 12/15/2022 Office Visit Family Medicine Nicola Prado MD [address] [place] [address] [place] [address] 12/20/2022 Office Visit Dermatology Meron Aragon PA-C [address] [place] [address] [place] [address] 01/28/2023 Office Visit Nephrology Verito Jovel PA-C [address] [place] [address] 03/04/2023 Office Visit Gastroenterology Marielena Giraldo CRNP [address] [place] [address] 03/29/2023 Office Visit Cardiology Blair Hannah PA-C [address] [place] [address] 06/02/2023 Nurse Only Ancillary Nurse Neeraj Annual [address] [place] [address] 10/12/2023 Office Visit Sleep Disorders Eulalia Milligan DO [address] [place] [address] 10/25/2023 Cardiac Studies Cardiology Keith Pickard [facility] [address] [place] [address] Scheduled Procedures Name Priority Associated Diagnoses Date/Ti [...] this encounter Medical Devices Implanted Type Area Physical Science Aide Device Identifier Shelf Expiration Date Model / Serial / Lot Sut Steel 6 [id number] - [id number] Implanted:Qty: 6 on 07/10/2008 at OR [facility] N/A: Chest DO NOT USE 08/14/2012 [id number] / / [id number] documented as of this encounter Advance Directives Documents on File Type Date Recorded Patient Bookstore Manager Expl anation Power of Strap Sewer 06/26/2019 POWER OF A TTORNEY Advance Directives [...] the patient have Health Care Power of Strap Sewer? No Code Status History Code Status Date Activated Date Inactivated Comments Full Code 07/10/2008 6:37 PM 07/21/2008 4:52 PM This o rder reflects the patients wishes and were consensually agreed upon. Full Code 07/04/2008 2:18 PM 07/10/2008 6:30 PM Healthcare Agents on File Name Relationship Healthcare Agent Relationshi p Communication Shane Beltran [facility] Child Health Care Repr esentative (appointed verbally by patient or by statute hierarchy) Care Teams Grit Blaster Relationship Specialty Start Date End Date Nicola Prado MD [address] [place] [address] [place] [address] PCP - General Family Medicine 06/19/21 documented as of this encounter
--- OUTSIDE RECORDS SUMMARY | 2023-02-03 20:27 | External Medical Summary ---
Author Name Unknown Address Unknown Organization K01:[facility] [address] [facility] [place] [address] Laboratory Report Ordering Provider Test Date Status [facility] 11/03/2022 09:14:10 Final Observation Date Value Abnormality Reference (Units ) Status WBC, Total 11/03/2022 09:14:10 10.21 4.00-10.80 (K/uL) Final RBC 11/03/2022 09:14:10 3.58 4.50-5.25 (M/uL) Final Hemoglobin 11/03/2022 09:14:10 11.0 Below low normal 14.0-16.8 (g/dL) Final HCT 11/03/2022 09:14:10 36.1 Below low normal 40.0-48.4 (%) Final MCV 11/03/2022 09:14:10 100.8 82.0-99.5 (fL) Final MCH 11/03/2022 09:14:10 30.7 27.0-34.0 (pg) Final MCHC 11/03/2022 09:14:10 30.5 32.0-36.0 (g/dL) Final RDW 11/03/2022 09:14:10 16.1 11.5-15.5 (%) Final Platelets 11/03/2022 09:14:10 214 140-400 (K/uL) Final MPV 11/03/2022 09:14:10 9.7 6.6-11.1 (fL) Final Nucleated erythrocytes/100 leukocytes [Ratio] in Blood by Automated count 11/03/2022 09:14:10 0 <=0 (/100 WBCs) Final Performing Location [facility] [address] [place] [address]
--- OUTSIDE RECORDS SUMMARY | 2023-02-03 20:27 | External Medical Summary | Summary of Care ---
Author Name Unknown Organization [facility] Address [address] [place] [address] Phone [phone] Care Team Providers Care Quill Picking Machine Operator Name Role Phone Nicola Prado MD Primary Care Provide r Reason for Visit * Reason Onset Date Comments Test Results 11/01/2022 Pt calling [facility] leaving a message for Lab results done last Tuesday. He states kidney counts are looking pretty bad and he doesn't understand why he is getting lab work done if no one calls him back with results. Encounter Details Date Type Department Care Team Description 11/01/2022 Telephone Nephrology, Mindi Robison [address] [place] [address] Quin Narvaez MD [address] [place] [address] Test Results (Pt calling [facility]... Allergies Active Allergy Reactions Severity Noted Date Comments Hydromorphone High 09/20/2021 Other reaction(s): Nausea Other reaction(s): Nausea 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/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 Other reaction(s): AMS Other reaction(s): AMS Prasugrel 04/02/2016 bleeding Prednisone High 09/20/2021 Other reaction(s): INCREASE BLOOD SUGAR Other reaction(s): INCREASE BLOOD SUGAR documented as of this encounter (statuses as of 11/01/2022) Medications Medication Sig Dispensed Refills Start Date [...] Tablet 1 05/05/2022 Active Easy Touch Pen [place] 31G X 8 MM (Insulin Pen Needle)Indications:T ype 2 diabetes mellitus with hemoglobin A1c goal of less than 8.0% (HCC),Type 2 diabetes mellitus with stage 4 chronic kidney disease, unspecified whether mcfp insulin use (HCC) Use up to six [...] Solution Auto-injector (Enbrel Sureclick)Indication s: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[facility]),H/O psoriasis Inject 50 mg under the [...] Extended Release 12 Hour (Mucinex)Indications :COPD exacerbation ([facility]) Take 1 Tablet by [...] as of this encounter (statuses as of 11/01/2022) Active Problems Problem Noted Date Atherosclerosis of coronary artery bypass graft of [place] heart with angina pectoris 10/13/2022 Encounter for [...] urinary tr act symptoms 07/13/2001 Atherosclerosis of [place] co ronary artery of [place] heart without angina pectoris Morbid obesity with BMI of 40.0-44.9, ad ult documented as of this encounter (statuses as of 11/01/2022) Resolved Problems Problem Noted Date Resolved Date [...] use aero chamber. Test performed by Dori MAINSPRING FORMER BRACE END CPFT Body mass index (BMI) of 45.0 [...] 07/22/2008 0 Overview: Kianna Lyn, RN [phone] Examination following surgery 07/11/2008 Difficult intubation 07/10/2008 02/19/2020 Overview: Patient seen and examined in OR#1.Possible difficult intubation.TM distance about 5 cms.MP 3-4. Will plan FOB electively Due to current situation. EXAMINATION OF PARTICIPANT IN CLINICAL TRIAL-gen omics 07/04/2008 05/30/2009 Overview: Renamed Per Clinical Trials Billing Project. Study Titile: Genomic Markers for Patients with Cardiovascular Disease Project #[id number] PI: Miriam Roque MD Please call [phone] with study related questions Chronic coronary artery [...] at goal 07/04/2008 9 GENOMICS CARDIO RESEARCH OTHER*[id number] 200803/23/2016 Overview: Renamed Per Clinical Trials Billing Project. Study Titile: Genomic Markers for Patients with Cardiovascular Disease Project #[id number] PI: Miriam Roque MD Please call [phone] with study related questions Kidney disease, chronic, [...] as of this encounter (statuses as of 11/01/2022) Immunizations Name Administration Dates Next Due COVID-19 mRNA, LNP-s, No Pre serve, 2-Dose Series ([email or web address]) 12/09/2020,05/09/2020,04/11/2020 COVID-19, LNP-s, No Preserve , Juan [...] system updated better * Telephone Encounter - Samara Aguila LPN - 11/01/2022 4:10 PM EDT Spoke [...] a message on October 29 in my [facility] the kidney labs were stable and to [...] - 11/01/2022 12:03 PM EDT Pt calling [facility] leaving a message for Lab results done last Tuesday. He states kidney counts are looking pretty bad and he doesn't understand why he is getting lab work done if no one calls him back with results. documented in this encounter Plan of Treatment Upcoming Encounters Date Type Specialty Care Team Description 11/17/2022 Office Visit [address] [place] [address] 11/19/2022 Imaging Radiology 11/22/2022 Imaging Radiology 11/30/2022 Office Visit Urology Denny Armando MD [address] [facility] [place] [address] [place] [address] 12/13/2022 Office Visit Cardiology Nevaeh Linda PA-C [address] [place] [address] 12/15/2022 Office Visit Family Medicine Nicola Prado MD [address] [place] [address] [place] [address] 12/20/2022 Office Visit Dermatology Meron Aragon PA-C [address] [place] [address] [place] [address] 01/28/2023 Office [facility]phrology [facility] [address] 03/04/2023 Office Visit Gastroenterology Marielena Hall CRNP [address] [place] [address] 03/29/2023 Office Visit Cardiology Blair Hannah PA-C [address] [place] [address] 06/02/2023 Nurse Only Ancillary Nurse Neeraj [address] [place] [address] 10/12/2023 Office Visit Sleep Disorders Eulalia Milligan DO [address] [place] [address] 10/25/2023 Cardiac Studies Cardiology Keith Pickard [facility] [address] [place] [address] Scheduled Procedures Name Priority Associated Diagnoses Date/Ti [...] this encounter Medical Devices Implanted Type Area Supervisor Fusing Room Device Identifier Shelf Expiration Date Model / Serial / Lot Sut [place] 6 [id number] - [id number] [place]ed:Q[place] 6 [place] [facility] [place]: Chest DO NOT USE 08/14/2012 [id number] / / [id number] documented as of this encounter Advance Directives Documents on File Type Date Recorded 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 No Code Status History Code Status [...] patient or by statute hierarchy) Care Teams Quill Picking Machine Operator Relationship Specialty Start Date End Date Nicola Prado MD [address] [place] [address] [place] [address] PCP - General Family Medicine 06/19/21 documented as of this encounter
--- OUTSIDE RECORDS SUMMARY | 2023-02-03 20:27 | External Medical Summary | Summary of Care ---
Author Name Unknown Organization [facility] Address [address] [place] [address] Phone [phone] Care Team Providers Care Bias Binding Cutter Name Role Phone Nicola Prado MD Primary Care Provide r Reason for Visit * Reason Onset Date Comments Advice 10/29/2022 [facility] Encounter Details Date Type Department Care Team Description 10/29/2022 Telephone Gastroenterology, [facility] [address] [place] [address] Marielena Giraldo CRNP [address] [place] [address] Advice ([facility]) Allergies Active Allergy Reactions Severity Noted Date [...] goal of less than 8.0% ([facility]) Test blood sugar up to five [...] goal of less than 8.0% ([facility]) 12 units with breakfast and supper [...] Tablet 1 05/05/2022 Active Easy Touch Pen [place] 31G X 8 MM (Insulin Pen Needle)Indications :Type 2 diabetes mellitus with hemoglobin A1c goal of less than 8.0% ([facility]),Type 2 diabetes mellitus with stage 4 chronic kidney disease, unspecified whether fci insulin use ([facility]) Use up to six times daily with insulin. DXe11.9 600 Each 3 05/22/2022 Active Albuterol Sulfate HFA 108 (90 Base) MCG/ACT Inhalation Aerosol SolutionIndication s:COPD exacerbation ([facility]),Chronic cough Inhale by mouth 2 Puffs every 4 hours as needed for Cough or Shortness of Breath. Reports doesn't help 18 g 2 05/27/2022 Active Victoza 18 MG/3ML Subcutaneous Solution Pen-injector (Liraglutide)Indic ations:Type 2 diabetes mellitus with hemoglobin A1c goal of less than 8.0% ([facility]),Type 2 diabetes mellitus with stage 4 chronic kidney disease, with long-term current use of insulin ([facility]) Inject 1.8 mg under the skin [...] Extended Release 12 Hour (Mucinex)Indicatio ns:COPD exacerbation ([facility]) Take 1 Tablet by mouth 2 times a day as needed for Congestion. Take with plenty of water. Do not cut, crush or chew 40 Tablet 0 10/13/2022 Active Tresiba FlexTouch 200 UNIT/ML Subcutaneous Solution Pen-injector (Insulin Degludec)Indicatio ns:Type 2 diabetes mellitus with hemoglobin A1c goal of less than 8.0% ([facility]) Inject 100 Units under the skin [...] Atherosclerosis of coronary artery bypass graft of [place] heart with angina pectoris 10/13/2022 Encounter for [...] urinary tr act symptoms 07/13/2001 Atherosclerosis of [place] co ronary artery of [place] heart without angina pectoris Morbid obesity with [...] use aero chamber. Test performed by Dori RESIDENT SERVICES MANAGER CPFT Body mass index (BMI) of [...] MANAGEMENT 07/22/2008 0 Overview: Kianna Lyn, RN [phone] Examination following surgery 07/11/2008 Difficult intubation 07/10/2008 02/19/2020 Overview: Patient seen and examined in OR#1.Possible difficult intubation.TM distance about 5 cms.MP 3-4. Will plan FOB electively Due to current situation. EXAMINATION OF PARTICIPANT IN CLINICAL TRIAL-gen omics 07/04/2008 05/30/2009 Overview: Renamed Per Clinical Trials Billing Project. Study Titile: Genomic Markers for Patients with Cardiovascular Disease Project #[id number] PI: Miriam Roque MD Please call [phone] with study related questions Chronic coronary artery [...] at goal 07/04/2008 9 GENOMICS CARDIO RESEARCH OTHER*[id number] 200803/23/2016 Overview: Renamed Per Clinical Trials Billing Project. Study Titile: Genomic Markers for Patients with Cardiovascular Disease Project #[id number] PI: Miriam Roque MD Please call [phone] with study related questions Kidney disease, chronic, [...] arrange this through his HH. He uses [employer] He provided me with [phone] Gastro Pre-Cert Request Specialty Medication: No. Medication/Disease State Information: Medication: Octreotide Acetate 10 MG Intramuscular Kit (SandoSTATIN LAR [place]) 1 Kit 12 10/29/2022 Sig - Route: Inject 10 mg into a large muscle every month. - Intramuscular Diagnosis (including ICD-10): D64.9 Anemia Site of care: Self-administered - route pre-cert request to [id number] Office Information: Prescriber: FRANCHESKA Collins can you [...] a script of the OCtreotide LAR to [facility] [address] specialty pharmacy. May need prior auth for [...] Specialty Care Team Description 11/17/2022 Office Visit [address] [place] [address] 11/19/2022 Imaging Radiology 11/22/2022 Imaging Radiology 11/30/2022 Office Visit Urology Denny Armando MD [address] [address] [place] [address] 12/13/2022 Office Visit Cardiology Nevaeh Linda PA-C [address] [place] [address] 12/15/2022 Office Visit Family Medicine Nicola Prado MD [address] [place] [address] [place] [address] 12/20/2022 Office Visit Dermatology Meron Aragon PA-C [address] [place] [address] [place] [address] 01/28/2023 Office [facility]ph[facility] [address] 03/04/2023 Office Visit Gastroenterology Marielena Giraldo CRNP [address] [place] [address] 03/29/2023 Office Visit Cardiology Blair Hannah PA-C [address] [place] [address] 06/02/2023 Nurse Only Ancillary Nurse Neeraj Annual [address] [place] [address] 10/12/2023 Office Visit Sleep Disorders Eulalia Milligan DO [address] [place] [address] 10/25/2023 Cardiac Studies Cardiology Keith Pickard [facility] [address] [place] [address] Scheduled Procedures Name Priority Associated Diagnoses Date/Ti [...] this encounter Medical Devices Implanted Type Area Vegetable Grower Device Identifier Shelf Expiration Date Model / Serial / Lot Sut Steel 6 [id number] - [id number] Implanted:Qty: 6 on 07/10/2008 at [place] [facility] [place] N/A: Chest DO NOT USE 08/14/2012 [id number] / / [id number] documented as of this encounter Advance Directives Documents on File Type Date Recorded Patient Review Specialist Expl anation Power of Master Control Technician 06/26/2019 POWER OF A TTORNEY Advance [...] the patient have Health Care Power of Master Control Technician? No Code Status History Code Status [...] patient or by statute hierarchy) Care Teams Bias Binding Cutter Relationship Specialty Start Date End Date Nicola Prado MD [address] [place] [address] [place] [address] PCP - General Family Medicine 06/19/21 documented as of this encounter
--- OUTSIDE RECORDS SUMMARY | 2023-02-03 20:28 | External Medical Summary | Summary of Care ---
Author Name Unknown Organization [facility] Address [address] [place] [address] Phone [phone] Care Team Providers Care Gut Snatcher Name Role Phone Nicola Prado MD Primary Care Provide r Reason for Visit * Reason Onset Date Comments Advice 10/29/2022 Encounter Details Date Type Department Care Team Description 10/29/2022 Telephone Gastroenterology, [facility] [address] [place] [address] Marielena Hall CRNP [address] [place] [address] Advice Allergies Active Allergy Reactions Severity Noted [...] of less than 8.0% ([facility]) Test blood sugar up to five [...] Tablet 1 05/05/2022 Active Easy Touch Pen [place] 31G X 8 MM (Insulin Pen Needle)Indications:T ype 2 diabetes mellitus with hemoglobin A1c goal of less than 8.0% (HCC),Type 2 diabetes mellitus with stage 4 chronic kidney disease, unspecified whether extermination inspector insulin use ([facility]) Use up to six times daily with insulin. DXe11.9 600 Each 3 05/22/2022 Active Albuterol Sulfate HFA 108 (90 Base) MCG/ACT Inhalation Aerosol SolutionIndications: COPD exacerbation ([facility]),Chronic cough Inhale by mouth 2 Puffs [...] current use of insulin ([facility]) Inject 1.8 mg under the skin daily. 27 mL 3 07/23/2022 Active Furosemide 80 MG Oral Tablet (Lasix) Take 1 Tablet by mouth in the morning. 90 Tablet 1 08/05/2022 Active Etanercept 50 MG/ML Subcutaneous Solution Auto-injector (Enbrel Sureclick)Indication s: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HCC),H/O psoriasis Inject 50 mg under the skin once a week. 4 mL 1 08/04/2022 Active Octreotide Acetate 50 MCG/ML Injection Solution (Sandostatin) Inject 50mcg under the skin in the morning and the evening 180 mL 1 09/01/2022 Active BD TB Syringe 27G X 1/2" [...] 12 Hour (Mucinex)Indications :COPD exacerbation ([facility]) Take 1 Tablet by mouth 2 times a day as needed for Congestion. Take with plenty of water. Do not cut, crush or chew 40 Tablet 0 10/13/2022 Active Tresiba FlexTouch 200 UNIT/ML Subcutaneous Solution Pen-injector (Insulin Degludec)Indications :Type 2 diabetes mellitus with hemoglobin A1c goal of less than 8.0% ([facility]) Inject 100 Units under the skin daily. 90 mL 3 10/25/2022 Active Octreotide Acetate 10 MG Intramuscular Kit (SandoSTATIN LAR [place]) Inject 10 mg into a large muscle every month. 1 Kit 12 10/29/2022 Active Hospital, Clinic, or Other Facility Administered [...] Atherosclerosis of coronary artery bypass graft of [place] heart with angina pectoris 10/13/2022 Encounter for [...] urinary tr act symptoms 07/13/2001 Atherosclerosis of [place] co ronary artery of [place] heart without angina pectoris Morbid obesity with [...] use aero chamber. Test performed by Dori GENERAL TELLER CPFT Body mass index (BMI) of 45.0 [...] TIA (transient ischemic attack) 02/04/2016 11/23/2017 Overview: [facility] Anemia of chronic renal failure 07/30/2015 01/27/2017 [...] 07/22/2008 0 Overview: Kianna Lyn RN [phone] Examination following surgery 07/11/2008 Difficult intubation 07/10/2008 02/19/2020 Overview: Patient seen and examined in OR#1.Possible difficult intubation.TM distance about 5 cms.MP 3-4. Will plan FOB electively Due to current situation. EXAMINATION OF PARTICIPANT IN CLINICAL TRIAL-gen omics 07/04/2008 05/30/2009 Overview: Renamed Per Clinical Trials Billing Project. Study Titile: Genomic Markers for Patients with Cardiovascular Disease Project #[id number] PI: Miriam Roque MD Please call [phone] with study related questions Chronic coronary artery [...] at goal 07/04/2008 9 GENOMICS CARDIO RESEARCH OTHER*[id number] 200803/23/2016 Overview: Renamed Per Clinical Trials Billing Project. Study Titile: Genomic Markers for Patients with Cardiovascular Disease Project #[id number] PI: Miriam Roque MD Please call [phone] with study related questions Kidney disease, chronic, [...] a script of the OCtreotide LAR to [facility] specialty pharmacy. May need prior auth [...] Specialty Care Team Description 11/17/2022 Office Visit [address] [place] [address] 11/19/2022 Imaging Radiology 11/22/2022 Imaging Radiology 11/30/2022 Office Visit Urology Denny Armando MD [address] [place] [address] [place] [address] 12/13/2022 Office Visit [facility]iology [facility] [address] [facility] [place] [address] 12/15/2022 Office Visit Family Medicine Nicola Prado MD [address] [place] [address] [place] [address] 12/20/2022 Office Visit Dermatology Meron Aragon PA-C [address] [place] [address] [place] [address] 01/28/2023 Office [facility]phrology [facility] [address] 03/04/2023 Office Visit Gastroenterology Marielena Hall CRNP [address] [place] [address] 03/29/2023 Office Visit Cardiology Blair Hannah PA-C [address] [place] [address] 06/02/2023 Nurse Only Ancillary [place], Nurse [facility] [address] [place] [address] [place] [address] 10/12/2023 Office Visit Sleep Disorders Eulalia Milligan, [address] [place] [address] 10/25/2023 Cardiac Studies Cardiology Neeraj [facility] [place] [facility] [address] [place] [address] Scheduled Procedures Name Priority Associated Diagnoses Date/Ti [...] this encounter Medical Devices Implanted Type Area Gleason Gear Generator Device Identifier Shelf Expiration Date Model / Serial / Lot Sut Steel 6 [id number] - [id number] Implanted:Qty: 6 on 07/10/2008 [place] [facility] [place]A: Chest DO NOT USE 08/14/2012 [id number] / / [id number] documented as of this encounter Advance Directives Documents on File Type Date Recorded 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 No Code Status History Code Status Date [...] patient or by statute hierarchy) Care Teams Gut Snatcher Relationship Specialty Start Date End Date Nicola Prado MD [address] [place] [address] [place] [address] PCP - General Family Medicine 06/19/21 documented as of this encounter
--- OUTSIDE RECORDS SUMMARY | 2023-02-03 20:28 | External Medical Summary | Summary of Care ---
Author Name Unknown Organization [facility] Address [address] [place] [address] Phone [phone] Care Team Providers Care Sole Tier Name Role Phone Nicola Prado MD Primary Care Provide r Reason for Visit * Reason Onset Date Comments Advice 10/29/2022 Encounter Details Date Type Department Care Team Description 10/29/2022 Telephone Gastroenterology, [facility] [address] [place] [address] Marielena Giraldo CRNP [address] [place] [address] Advice Allergies Active Allergy Reactions Severity Noted [...] Tablet 1 05/05/2022 Active Easy Touch Pen [place] 31G X 8 MM (Insulin Pen Needle)Indications :Type 2 diabetes mellitus with hemoglobin A1c goal of less than 8.0% ([facility]),Type 2 diabetes mellitus with stage 4 chronic kidney disease, unspecified whether termite technician insulin use ([facility]) Use up to six times daily with insulin. DXe11.9 600 Each 3 05/22/2022 Active Albuterol Sulfate HFA 108 (90 Base) MCG/ACT Inhalation Aerosol SolutionIndication s:COPD exacerbation ([facility]),Chronic cough Inhale [...] morning and the evening 180 mL 1 11/01/2022 Active Octreotide Acetate 50 MCG/ML Injection Solution (Sandostatin) Inject 50mcg under the skin in the morning and the evening 180 mL 09/01/2022 3 Discontinue d(Refill) Hospital, Clinic, or [...] of coronary artery bypass graft of [place] heart with angina pectoris 10/13/2022 Encounter for [...] tr act symptoms 07/13/2001 Atherosclerosis of [place] ronary artery of [place] heart without angina pectoris Morbid obesity with [...] use aero chamber. Test performed by Dori HOTEL BAGGAGE HANDLER CPFT Body mass index (BMI) of 45.0 [...] MANAGEMENT 07/22/2008 0 Overview: Kianna Lyn, RN [phone] Examination following surgery 07/11/2008 Difficult intubation 07/10/2008 02/19/2020 Overview: Patient seen and examined in OR#1.Possible difficult intubation.TM distance about 5 cms.MP 3-4. Will plan FOB electively Due to current situation. EXAMINATION OF PARTICIPANT IN CLINICAL TRIAL-gen omics 07/04/2008 05/30/2009 Overview: Renamed Per Clinical Trials Billing Project. Study Titile: Genomic Markers for Patients with Cardiovascular Disease Project #[id number] PI: Miriam Roque MD Please call [phone] with study related questions Chronic coronary artery [...] at goal 07/04/2008 9 GENOMICS CARDIO RESEARCH OTHER*[id number] 200803/23/2016 Overview: Renamed Per Clinical Trials Billing Project. Study Titile: Genomic Markers for Patients with Cardiovascular Disease Project #[id number] PI: Miriam Roque MD Please call [phone] with study related questions Kidney disease, chronic, [...] arrange this through his HH. He uses [facility] He provided me with [phone] Gastro Pre-Cert Request Specialty Medication: No. Medication/Disease State Information: Medication: Octreotide Acetate 10 MG Intramuscular Kit (SandoSTATIN LAR [place]) 1 Kit 12 10/29/2022 Sig - Route: Inject 10 mg into a large muscle every month. - Intramuscular Diagnosis (including ICD-10): D64.9 Anemia Site of care: Self-administered - route pre-cert request to [id number] Office Information: Prescriber: FRANCHESKA Collins can you [...] a script of the OCtreotide LAR to [facility] specialty pharmacy. May need prior auth [...] Specialty Care Team Description 11/17/2022 Office Visit [address] [place] [address] 11/19/2022 Imaging Radiology 11/22/2022 Imaging Radiology 11/30/2022 Office Visit Urology Denny Armando MD [address] [address] [place] [address] 12/13/2022 Office Visit Cardiology Nevaeh Linda PA-C [address] [facility] [place] [address] 12/15/2022 Office Visit Family Medicine Nicola Prado MD [address] [place] [address] [place] [address] 12/20/2022 Office Visit Dermatology Meron Aragon PA-C [address] [place] [address] [place] [address] 01/28/2023 Office Visit Nephrology [facility] [address] [facility] [address] 03/04/2023 Office Visit Gastroenterology Marielena Giraldo CRNP [address] [place] [address] 03/29/2023 Office Visit Cardiology Blair Hannah PA-C [address] [place] [address] 06/02/2023 Nurse Only Ancillary Nurse Neeraj Annual [address] [place] [address] 10/12/2023 Office Visit Sleep Disorders Eulalia Milligan DO [address] [place] [address] 10/25/2023 Cardiac Studies Cardiology Keith Pickard [facility] [address] [place] [address] Scheduled Procedures Name Priority Associated Diagnoses Date/Ti [...] this encounter Medical Devices Implanted Type Area Strategy Intern Device Identifier Shelf Expiration Date Model / Serial / Lot Sut Steel 6 [id number] - [id number] Implanted:Qty: 6 on 07/10/2008 at OR [place] N/A: Chest DO NOT USE 08/14/2012 [id number] / / [id number] documented as of this encounter Advance Directives Documents on File Type Date Recorded 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 No Code Status History Code Status Date [...] patient or by statute hierarchy) Care Teams Sole Tier Relationship Specialty Start Date End Date Nicola Prado MD [address] [place] [address] [place] [address] PCP - General Family Medicine 06/19/21 documented as of this encounter
--- OUTSIDE RECORDS SUMMARY | 2023-02-03 20:28 | External Medical Summary | Summary of Care ---
Author Name Unknown Organization [facility] Address [address] [place] [address] Phone [phone] Care Team Providers Care Iron Erector Name Role Phone Nicola Prado MD Primary Care Provide r Reason for Visit * Reason Onset Date Comments Advice 10/29/2022 Encounter Details Date Type Department Care Team Description 10/29/2022 Telephone Gastroenterology, [facility] [address] [place] [address] Marielena Hall CRNP [address] [place] [address] Advice Allergies Active Allergy Reactions Severity Noted [...] Tablet 1 05/05/2022 Active Easy Touch Pen [place] 31G X 8 MM (Insulin Pen Needle)Indications:T ype 2 diabetes mellitus with hemoglobin A1c goal of less than 8.0% (HCC),Type 2 diabetes mellitus with stage 4 chronic kidney disease, unspecified whether predatory animal exterminator insulin use ([facility]) Use up to six times daily with insulin. DXe11.9 600 Each 3 05/22/2022 Active Albuterol Sulfate HFA 108 (90 Base) MCG/ACT Inhalation Aerosol SolutionIndications: COPD exacerbation ([facility]),Chronic cough [...] urinary tr act symptoms 07/13/2001 Atherosclerosis of [place] co ronary artery [...] use aero chamber. Test performed by Dori ELECTRICAL AUTOMATION ENGINEER CPFT Body mass index (BMI) of [...] ischemic attack) 02/04/2016 11/23/2017 Overview: [facility] Anemia of chronic renal failure 07/30/2015 01/27/2017 [...] 07/22/2008 0 Overview: Kianna Lyn RN [phone] Examination following surgery 07/11/2008 Difficult intubation 07/10/2008 02/19/2020 Overview: Patient seen and examined in OR#1.Possible difficult intubation.TM distance about 5 cms.MP 3-4. Will plan FOB electively Due to current situation. EXAMINATION OF PARTICIPANT IN CLINICAL TRIAL-gen omics 07/04/2008 05/30/2009 Overview: Renamed Per Clinical Trials Billing Project. Study Titile: Genomic Markers for Patients with Cardiovascular Disease Project #[id number] PI: Miriam Roque MD Please call [phone] with study related questions Chronic coronary artery [...] at goal 07/04/2008 9 GENOMICS CARDIO RESEARCH OTHER*[id number] 200803/23/2016 Overview: Renamed Per Clinical Trials Billing Project. Study Titile: Genomic Markers for Patients with Cardiovascular Disease Project #[id number] PI: Miriam Roque MD Please call [phone] with study related questions Kidney disease, chronic, [...] arrange this through his HH. He uses [facility] He provided me with [phone] Gastro Pre-Cert Request Specialty Medication: No. Medication/Disease State Information: Medication: Octreotide Acetate 10 MG Intramuscular Kit (SandoSTATIN LAR [place]) 1 Kit 12 10/29/2022 Sig - Route: Inject 10 mg into a large muscle every month. - Intramuscular Diagnosis (including ICD-10): D64.9 Anemia Site of care: Self-administered - route pre-cert request to [id number] Office Information: Prescriber: FRANCHESKA Collins can you [...] a script of the OCtreotide LAR to [facility] specialty pharmacy. May need prior auth [...] Specialty Care Team Description 11/17/2022 Office Visit [address] [place] [address] 11/19/2022 Imaging Radiology 11/22/2022 Imaging Radiology 11/30/2022 Office Visit Urology Denny Armando MD [address] [facility] [address] [place] [address] 12/13/2022 Office Visit Cardiology Nevaeh Linda PA-C [address] [place] [id number] 12/15/2022 Office Visit Family Medicine Nicola Prado MD [address] [place] [address] [place] [address] 12/20/2022 Office Visit Dermatology Meron Aragon PA-C [address] [place] [address] [place] [address] 01/28/2023 Office Visit Nephrology Verito Jovel PA-C [address] [facility] [place] [address] 03/04/2023 Office Visit Gastroenterology Marielena Hall CRNP [address] [place] [address] 03/29/2023 Office Visit Cardiology Blair Hannah PA-C [address] [place] [address] 06/02/2023 Nurse Only Ancillary Nurse Neeraj [address] [place] [address] 10/12/2023 Office Visit Sleep Disorders Eulalia Milligan DO [address] [place] [address] 10/25/2023 Cardiac Studies Cardiology Keith Pickard [facility] [address] [place] [address] Scheduled Procedures Name Priority Associated Diagnoses Date/Ti [...] this encounter Medical Devices Implanted Type Area Environmental Health And Safety Leader Device Identifier Shelf Expiration Date Model / Serial / Lot Sut [place] 6 [id number] - [id number] Implanted:Qty: 6 on 07/10/[address] [facility] [place] Chest DO NOT USE 08/14/2012 [id number] / / [id number] documented as of this encounter Advance Directives Documents on File Type Date Recorded Patient Referral Nurse Expl anation Power of Pitch Filler 06/26/2019 POWER OF A TTORNEY Advance Directives [...] the patient have Health Care Power of Pitch Filler? No Code Status History Code Status Date [...] patient or by statute hierarchy) Care Teams Iron Erector Relationship Specialty Start Date End Date Nicola Prado MD [address] [place] [address] [place] [phone] PCP - General Family Medicine 06/19/21 documented as of this encounter
--- OUTSIDE RECORDS SUMMARY | 2023-02-03 20:28 | External Medical Summary | Summary of Care ---
Author Name Unknown Organization [facility] Address [address] [place] [address] Phone [phone] Care Team Providers Care Plasma Center Technician Name Role Phone Nicola Prado MD Primary Care Provide r Reason for Visit * Reason Onset Date Comments Precert Pending 11/01/2022 [facility] Encounter Details Date Type Department Care Team Description 11/01/2022 Telephone Gastroenterology, [facility] [address] [place] [address] Marielena Hall CRNP [address] [place] [address] Precert Pending ([facility]) Allergies Active Allergy Reactions Severity Noted Date [...] 8.0% ([facility]) 12 units with breakfast and [...] Tablet 1 05/05/2022 Active Easy Touch Pen [place] 31G X 8 MM (Insulin Pen Needle)Indications:T ype 2 diabetes mellitus with hemoglobin A1c goal of less than 8.0% ([facility]),Type 2 diabetes mellitus with stage 4 chronic kidney disease, unspecified whether half-way insulin use ([facility]) Use up to six times daily with insulin. DXe11.9 600 Each 3 05/22/2022 Active Albuterol Sulfate HFA 108 (90 Base) MCG/ACT Inhalation Aerosol SolutionIndications: COPD exacerbation ([facility]),Chronic cough Inhale by mouth 2 [...] Extended Release 12 Hour (Mucinex)Indications :COPD exacerbation ([facility]) Take 1 Tablet by mouth 2 times a day as needed for Congestion. Take with plenty of water. Do not cut, crush or chew 40 Tablet 0 10/13/2022 Active Tresiba FlexTouch 200 UNIT/ML Subcutaneous Solution Pen-injector (Insulin Degludec)Indications :Type 2 diabetes mellitus with hemoglobin A1c goal of less than 8.0% ([facility]) Inject 100 Units under the [...] urinary tr act symptoms 07/13/2001 Atherosclerosis of [place] co ronary artery [...] 07/22/2008 0 Overview: Kianna Lyn, RN [phone] Examination following surgery 07/11/2008 Difficult intubation 07/10/2008 02/19/2020 Overview: Patient seen and examined in OR#1.Possible difficult intubation.TM distance about 5 cms.MP 3-4. Will plan FOB electively Due to current situation. EXAMINATION OF PARTICIPANT IN CLINICAL TRIAL-gen omics 07/04/2008 05/30/2009 Overview: Renamed Per Clinical Trials Billing Project. Study Titile: Genomic Markers for Patients with Cardiovascular Disease Project #[id number] PI: Miriam Roque MD Please call [phone] with study related questions Chronic coronary artery [...] at goal 07/04/2008 9 GENOMICS CARDIO RESEARCH OTHER*[id number] 200803/23/2016 Overview: Renamed Per Clinical Trials Billing Project. Study Titile: Genomic Markers for Patients with Cardiovascular Disease Project #[id number] PI: Miriam Roque MD Please call [phone] with study related questions Kidney disease, chronic, [...] encounter Miscellaneous Notes * Telephone Encounter - HARLEY Mauricio Tech - 11/01/2022 9:22 AM EDT New or re-auth: new Patient Maurisio Beltran needs a prior authorization for their sandostatin through their [facility] insurance. ID: [id number] BIN:[id number] PCN:[id number] Target ship date is n/a. Thank you very much, Elaine Flowers Intelligence Intern, [facility] 11/01/2022 9:23 AM\\ documented in this encounter Plan of Treatment Upcoming Encounters Date Type Specialty Care Team Description 11/17/2022 Office Visit Pharmacy [address] [place] [address] 11/19/2022 Imaging Radiology 11/22/2022 Imaging Radiology 11/30/2022 Office Visit Urology Denny Armando MD [address] [place] [address] [place] [address] 12/13/2022 Office Visit Cardiology Nevaeh Linda PA-C [address] [place] [address] 12/15/2022 Office Visit Family Medicine Nicola Prado MD [address] [place] [address] [place] [address] 12/20/2022 Office Visit Dermatology Meron Aragon PA-C [address] [place] [address] [place] [address] 01/28/2023 Office Visit Nephrology Verito Jovel PA-C [facility] [address] 03/04/2023 Office Visit Gastroenterology Marielena Hall CRNP [address] [place] [address] 03/29/2023 Office Visit Cardiology Blair Hannah PA-C [address] [place] [address] 06/02/2023 Nurse Only Ancillary Nurse Neeraj [facility] [address] [place] [address] [place] [address] 10/12/2023 Office Visit Sleep Disorders Eulalia Milligan DO [address] [place] [address] 10/25/2023 Cardiac Studies Cardiology Keith Pickard [facility] [address] [place] [address] Scheduled Procedures Name Priority Associated Diagnoses Date/Ti [...] this encounter Medical Devices Implanted Type Area Ekg Manager Device Identifier Shelf Expiration Date Model / Serial / Lot Sut Steel 6 M654g - [id number] Implanted:Qty: 6 on 07[place]10[place] [facility] [place] Chest DO NOT USE 08/14/2012 [id number] / / [id number] documented as of this encounter Advance Directives Documents on File Type Date Recorded Patient Nut Orchardist Expl anation Power of Application Internship 06/26/2019 POWER OF A TTORNEY Advance Directives [...] the patient have Health Care Power of Application Internship? No Code Status History Code Status Date [...] patient or by statute hierarchy) Care Teams Plasma Center Technician Relationship Specialty Start Date End Date Nicola Prado MD [address] [place] [address] [place] [address] PCP - General Family Medicine 06/19/21 documented as of this encounter
--- OUTSIDE RECORDS SUMMARY | 2023-02-03 20:28 | External Medical Summary | Summary of Care ---
Author Name Unknown Organization [facility] Address [address] [place] [address] Phone [phone] Care Team Providers Care User Experience Manager Name Role Phone Nicola Prado MD Primary Care Provide r Reason for Visit * Reason Onset Date Comments Precert Pending 11/01/2022 [facility]iva Encounter Details Date Type Department Care Team Description 11/01/2022 Telephone Gastroenterology, [facility] [address] [place] [address] Marielena Hall CRNP [address] [place] [address] Precert Pending ([facility]) Allergies Active Allergy Reactions [...] goal of less than 8.0% ([facility]) Test blood sugar up to [...] goal of less than 8.0% ([facility]) 12 units with breakfast and [...] Tablet 1 05/05/2022 Active Easy Touch Pen [place] 31G X 8 MM (Insulin Pen Needle)Indications :Type 2 diabetes mellitus with hemoglobin A1c goal of less than 8.0% ([facility]),Type 2 diabetes mellitus with stage 4 chronic kidney disease, unspecified whether vermin exterminator insulin use ([facility]) Use up to six times daily with insulin. DXe11.9 600 Each 3 05/22/2022 Active Albuterol Sulfate HFA 108 (90 Base) MCG/ACT Inhalation Aerosol SolutionIndication s:COPD exacerbation ([facility]),Chronic cough Inhale by mouth 2 Puffs every 4 hours as needed for Cough or Shortness of Breath. Reports doesn't help 18 g 2 05/27/2022 Active Victoza 18 MG/3ML Subcutaneous Solution Pen-injector (Liraglutide)Indic ations:Type 2 diabetes mellitus with hemoglobin A1c goal of less than 8.0% ([facility]),Type 2 diabetes mellitus with stage 4 chronic kidney disease, with long-term current use of insulin ([facility]) Inject 1.8 mg under the [...] 12 Hour (Mucinex)Indicatio ns:COPD exacerbation ([facility]) Take 1 Tablet by mouth 2 times a day as needed for Congestion. Take with plenty of water. 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 Test performed by Dori MIDDLE STITCHER CPFT Body mass index (BMI) of [...] MANAGEMENT 07/22/2008 0 Overview: Kianna Lyn RN [phone] Examination following surgery 07/11/2008 Difficult intubation 07/10/2008 02/19/2020 Overview: Patient seen and examined in OR#1.Possible difficult intubation.TM distance about 5 cms.MP 3-4. Will plan FOB electively Due to current situation. EXAMINATION OF PARTICIPANT IN CLINICAL TRIAL-gen omics 07/04/2008 05/30/2009 Overview: Renamed Per Clinical Trials Billing Project. Study Titile: Genomic Markers for Patients with Cardiovascular Disease Project #[id number] PI: Miriam Roque MD Please call [phone] with study related questions Chronic coronary artery [...] at goal 07/04/2008 9 GENOMICS CARDIO RESEARCH OTHER*[id number] 200803/23/2016 Overview: Renamed Per Clinical Trials Billing Project. Study Titile: Genomic Markers for Patients with Cardiovascular Disease Project #[id number] PI: Miriam Roque MD Please call [phone] with study related questions Kidney disease, chronic, [...] KATHE Tellez - 11/01/2022 12:42 PM EDT [facility] Authorization Submission Submission Information: Medication: SANDOSTATIN LAR [place] 10 MG KT Portal used: [facility] Insurance: [facility] Authorization #/Mendes: [id number] Thank you, Aviva Lombardo Medication Zig Zag Stitcher 11/01/2022, 12:43 PM * Telephone Encounter - Tobin Flowers pattern checker - 11/01/2022 9:22 AM EDT New or re-auth: new Patient Maurisio Beltran needs a prior authorization for their sandostatin through their [facility] insurance. ID: [id number] BIN:[id number] PCN:[id number] Target ship date is n/a. Thank you very much, Elaine Flowers Early Childhood Education Coordinator, [facility] 11/01/2022 9:23 AM\\ documented in this encounter Plan of Treatment Upcoming Encounters Date Type Specialty Care Team Description 11/17/2022 Office Visit [address] [place] [address] 11/19/2022 Imaging Radiology 11/22/2022 Imaging Radiology 11/30/2022 Office Visit Urology Denny Armando MD [address] [place] [address] [place] [phone] 12/13/2022 Office Visit Cardiology Nevaeh Linda PA-C [address] [facility] [place] [address] 12/15/2022 Office Visit Family Medicine Nicola Prado MD [address] [place] [address] [place] [address] 12/20/2022 Office Visit Dermatology Meron Aragon PA-C [address] [place] [address] [place] [address] 01/28/2023 [facility]ph[facility] [address] 03/04/2023 Office Visit Gastroenterology Marielena Hall CRNP [address] [place] [address] 03/29/2023 Office Visit Cardiology Blair Hannah PA-C [address] [place] [address] 06/02/2023 Nurse Only Ancillary Lilliey, Nurse [facility] [address] [place] [address] [place] [address] 10/12/2023 Office Visit Sleep Disorders Eulalia Milligan, [address] [place] [address] 10/25/2023 Cardiac Studies [address] [facility] [address] [place] [address] Scheduled Procedures Name Priority Associated Diagnoses Date/Ti [...] this encounter Medical Devices Implanted Type Area Plant Wrapper Device Identifier Shelf Expiration Date Model / Serial / Lot Sut Steel 6 [id number] - [id number] Implanted:Qty: 6 on 07/10/2008 [place] [facility] [place] Chest DO NOT USE 08/14/2012 [id number] / / [id number] documented as of this encounter Advance Directives Documents on File Type Date Recorded Patient Telemetry Tech Expl anation Power of Professor Of Education 06/26/2019 POWER OF A TTORNEY Advance Directives [...] the patient have Health Care Power of Professor Of Education? No Code Status History Code Status Date [...] patient or by statute hierarchy) Care Teams User Experience Manager Relationship Specialty Start Date End Date Nicola Prado MD [address] [place] [address] [place] [address] PCP - General Family Medicine 06/19/21 documented as of this encounter
--- OUTSIDE RECORDS SUMMARY | 2023-02-03 20:28 | External Medical Summary | Summary of Care ---
Author Name Unknown Organization [facility] Address [address] [place] [address] Phone [phone] Care Team Providers Care Paster Supervisor Name Role Phone Nicola Prado MD Primary Care Provide r Reason for Visit * Reason Onset Date Comments Test Results 11/01/2022 Pt calling [facility] leaving a message for Lab results done last Tuesday. He states kidney counts are looking pretty bad and he doesn't understand why he is getting lab work done if no one calls him back with results. Encounter Details Date Type Department Care Team Description 11/01/2022 Telephone Nephrology, Mindi Robison [address] [place] [address] Quin Narvaez MD [address] [place] [address] Test Results (Pt calling [facility]... Allergies Active Allergy Reactions Severity Noted Date [...] Tablet 1 05/05/2022 Active Easy Touch Pen Ewing 31G X 8 MM (Insulin Pen Needle)Indications:T [...] goal of less than 8.0% ([facility]),Type 2 diabetes mellitus with stage 4 chronic kidney disease, with long-term current use of insulin ([facility]) Inject 1.8 mg under the skin daily. 27 mL 3 07/23/2022 Active Furosemide 80 MG Oral Tablet (Lasix) Take 1 Tablet by mouth in the morning. 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 Take with plenty of water. Do not cut, crush or chew 40 Tablet 0 10/13/2022 Active Tresiba FlexTouch 200 UNIT/ML Subcutaneous Solution Pen-injector (Insulin Degludec)Indications :Type 2 diabetes mellitus with hemoglobin A1c goal of less than 8.0% ([facility]) Inject 100 Units under the skin [...] Atherosclerosis of coronary artery bypass graft of [place] heart with angina pectoris 10/13/2022 Encounter for [...] urinary tr act symptoms 07/13/2001 Atherosclerosis of [place] co ronary artery of [place] heart without angina pectoris Morbid obesity with [...] aero chamber. Test performed by [facility] Body mass index (BMI) of 45.0 [...] ischemic attack) 02/04/2016 11/23/2017 Overview: [facility] Anemia of chronic renal failure 07/30/2015 [...] 07/22/2008 0 Overview: Kianna Lyn, RN [id number] Examination following surgery 07/11/2008 Difficult intubation 07/10/2008 02/19/2020 Overview: Patient seen and examined in OR#1.Possible difficult intubation.TM distance about 5 cms.MP 3-4. Will plan FOB electively Due to current situation. EXAMINATION OF PARTICIPANT IN CLINICAL TRIAL-gen omics 07/04/2008 05/30/2009 Overview: Renamed Per Clinical Trials Billing Project. Study Titile: [employer] Mark[employer] for Patients with Cardiovascular Disease Project #[id number] PI: Miriam Roque MD Please call [phone] with study related questions Chronic coronary artery [...] at goal 07/04/2008 9 GENOMICS CARDIO RESEARCH OTHER*[id number] 200803/23/2016 Overview: Renamed Per Clinical Trials Billing Project. Study Titile: [employer] Mark[employer] for Patients with Cardiovascular Disease Project #[id number] PI: Miriam Roque MD Please call [phone] with study related questions Kidney disease, chronic, [...] encounter Miscellaneous Notes * Telephone Encounter - Samara Aguila LPN - 11/01/2022 4:10 PM EDT Spoke with pt about results. He is very concerned about lab results. He stated they have gotten worse. I did advise they have stayed similar through the last year. He is still very concerned. Pt stated he cannot see very well so he is unable to reach [facility] messages. * Telephone Encounter - Quin Narvaez MD - 11/01/2022 2:00 PM EDT Please contact patient by telephone regarding message below I reviewed these labs and send him a message on October 29 in my [facility] the kidney labs were stable and [...] - 11/01/2022 12:03 PM EDT Pt calling [facility] leaving a message for Lab results done last Tuesday. He states kidney counts are looking pretty bad and he doesn't understand why he is getting lab work done if no one calls him back with results. documented in this encounter Plan of Treatment Upcoming Encounters Date Type Specialty Care Team Description 11/17/2022 Office Visit [address] [place] [address] 11/19/2022 Imaging Radiology 11/22/2022 Imaging Radiology 11/30/2022 Office Visit Urology Denny Armando MD [address] [address] [place] [address] 12/13/2022 Office Visit Cardiology Nevaeh Linda PA-C [address] [facility] [place] [address] 12/15/2022 Office Visit Family Medicine Nicola Prado MD [address] [place] [address] [place] [address] 12/20/2022 Office Visit Dermatology Meron Aragon PA-C [address] [place] [address] [place] [address] 01/28/2023 [facility]ph[facility] [address] 03/04/2023 Office Visit Gastroenterology Marielena Hall CRNP [address] [facility] [place] [address] 03/29/2023 Office Visit Cardiology Blair Hannah PA-C [address] [place] [address] 06/02/2023 Nurse Only Ancillary Nurse Neeraj Annual [address] [place] [address] 10/12/2023 Office Visit Sleep Disorders Eulalia Milligan DO [address] [place] [address] 10/25/2023 Cardiac Studies Cardiology Keith Pickard [facility] [address] [place] [address] Scheduled Procedures Name Priority Associated Diagnoses Date/Ti [...] this encounter Medical Devices Implanted Type Area Diagnostic Technologist Device Identifier Shelf Expiration Date Model / Serial / Lot Sut Steel 6 [id number] - [id number] Implanted:Qty: 6 on 07/10/2008 at [place] [facility] [place] N/A: Chest DO NOT USE 08/14/2012 [id number] / / [id number] documented as of this encounter Advance Directives Documents on File Type Date Recorded Patient Rail Gang Supervisor Expl anation Power of Box Spinner 06/26/2019 POWER OF A TTORNEY Advance Directives [...] the patient have Health Care Power of Box Spinner? No Code Status History Code Status Date Activated Date Inactivated Comments Full Code 07/10/2008 6:37 PM 07/21/2008 4:52 PM This o rder reflects the patients wishes and were consensually agreed upon. Full Code 07/04/2008 2:18 PM 07/10/2008 6:30 PM Healthcare Agents on File Name Relationship [facility] Shane Beltran Adult Child Health Care Repr esentative (appointed verbally by patient or by statute hierarchy) Care Teams Paster Supervisor Relationship Specialty Start Date End Date Nicola Prado MD [address] [place] [address] [place] [address] PCP - General Family Medicine 06/19/21 documented as of this encounter
--- OUTSIDE RECORDS SUMMARY | 2023-02-03 20:29 | External Medical Summary | Summary of Care ---
Author Name Unknown Organization [facility] Address [address] [place] [address] Phone [phone] Care Team Providers Care Grinder Dresser Name Role Phone Nicola Prado MD Primary Care Provide r Reason for Referral * Precert (Within 10 days (routine)) - Pending Review Specialty Diagnoses / Procedures Referred By Contac t Referred To Contact Radiology Diagnoses Chest pain, unspecified type Coronary artery disease involving [place] coronary artery of [place] heart without angina pectoris Dyslipidemia, goal LDL below 70 Cardiac pacemaker in situ CHB (complete heart block) (HCC) Procedures NM MYOCARD PERF IMG SPECT MULT STUDIES WITH PHARM INTERV [facility]h Linda [facility] [address] Referral ID Status Reason Start Date Expiration Date Visits Requested Visits Authorized [id number] Pending Review Precert 10/29/2022 999 999 Reason for Visit * Reason Onset Date Comments Follow Up 4 week follow up . Doing about the same. Intermittent left sided uncomfortable feeling. Feels "run down". Medication Administration 10/28/2022 Flu an d/or Pneumo Inj Encounter Details Date Type Department Care Team Description 10/28/2022 Office Visit Cardiology, [address] [place] [address] Nevaeh Linda PA-C [address] [place] [address] [place] [address] Chest pain, unspecified type*; Coronary artery disease involving [place] coronary artery of [place] heart without angina pectoris; Cardiac pacemaker in situ; Dyslipidemia, goal LDL below 70; CHB (complete heart block) ([facility]); Need for prophylactic vaccination and inoculation against influenza; Chronic heart failure with preserved ejection fraction (HCC) Allergies Active Allergy Reactions Severity Noted Date Comments Hydromorphone High 09/20/2021 Other reaction(s): Nausea Other reaction(s): Nausea 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/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 Other reaction(s): AMS Other reaction(s): AMS Prasugrel 04/02/2016 bleeding Prednisone High 09/20/2021 Other reaction(s): INCREASE BLOOD SUGAR Other reaction(s): INCREASE BLOOD SUGAR documented as of this encounter (statuses as of 10/28/2022) Medications Medication Sig Dispensed Refills Start Date [...] mouth daily. 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 4 mL 1 08/04/2022 Active Octreotide Acetate 50 MCG/ML Injection Solution (Sandostatin) Inject 50mcg under the skin in the morning and the evening 180 mL 1 09/01/2022 Active BD TB Syringe 27G X 1/2" 1 ML (Tuberculin Syringe) Use twice daily to inject octreotide 180 Each 09/01/2022 Active Isosorbide Mononitrate ER 30 MG [...] skin daily. 90 mL 3 10/25/2022 Active methylPREDNISolone 4 MG Oral Tablet Therapy Pack (Medrol Dosepack)Indicatio ns:COPD exacerbation (HCC) follow package directions 21 Tablet 0 10/13/2022 3 Discontinue d(Patient preference/ discontinua tion) Hospital, Clinic, or Other Facility Administered Medication [...] as of this encounter (statuses as of 10/28/2022) Active Problems Problem Noted Date Atherosclerosis of coronary artery bypass graft of [place] heart with angina pectoris 10/13/2022 Encounter for [...] urinary tr act symptoms 07/13/2001 Atherosclerosis of [place] co ronary artery of [place] heart without angina pectoris Morbid obesity with BMI of 40.0-44.9, ad ult documented as of this encounter (statuses as of 10/28/2022) Resolved Problems Problem Noted Date Resolved Date [...] MANAGEMENT 07/22/2008 0 Overview: Kianna Lyn, RN [phone] Examination following surgery 07/11/2008 Difficult intubation 07/10/2008 02/19/2020 Overview: Patient seen and examined in OR#1.Possible difficult intubation.TM distance about 5 cms.MP 3-4. Will plan FOB electively Due to current situation. EXAMINATION OF PARTICIPANT IN CLINICAL TRIAL-gen omics 07/04/2008 05/30/2009 Overview: Renamed Per Clinical Trials Billing Project. Study Titile: Genomic Markers for Patients with Cardiovascular Disease Project #[id number] PI: Miriam Roque MD Please call [phone] with study related questions Chronic coronary artery [...] at goal 07/04/2008 9 GENOMICS CARDIO RESEARCH OTHER*[id number] 200803/23/2016 Overview: Renamed Per Clinical Trials Billing Project. Study Titile: Genomic Markers for Patients with Cardiovascular Disease Project #[id number] PI: Miriam Roque MD Please call [phone] with study related questions Kidney disease, chronic, [...] as of this encounter (statuses as of 10/28/2022) Immunizations Name Administration Dates Next Due COVID-19 mRNA, LNP-s, No Pre serve, 2-Dose Series (S[employer] My [employer] NOW) 12/09/2020,05/09/2020,04/11/2020 COVID-19, LNP-s, No Preserve , Juan [...] Sign Reading Time Taken Comments Blood Pressure 126/78 10/28/2022 1:06 PM EDT Pulse 76 10/28/2022 1:06 PM EDT Temperature - - Respiratory Rate 16 10/28/2022 1:06 PM EDT Oxygen Saturation - - Inhaled Oxygen Concentration - - Weight 115.8 kg (255 lb 4 oz) 10/28/2022 1:06 PM EDT Height - - Body Mass Index 43.81 10/26/2022 10:53 AM EDT documented in this encounter Patient Instructions * Patient Instructions* Yaron Hernández LPN - 10/28/2022 1:09 PM EDT ~~PATIENT INSTRUCTIONS FOR FLU SHOT~~ Possible side effects of influenza vaccine, (flu shot), are usually mild and include: 1. Soreness or redness at injection site 2. Low grade fever 3. Body aches You may use Tylenol/Acetaminophen as needed for these symptoms. LET YOUR DOCTOR KNOW IMMEDIATELY IF YOU HAVE DIFFICULTY BREATHING OR SWALLOWING, EXPERIENCE ITCHINGOF FEET OR HANDS, HAVE SWELLING OF EYES, FACE OR INSIDE OF NOSE. documented in this encounter Progress Notes * Yaron Hernández LPN - 10/28/2022 1:08 PM EDT PRE - ADMINISTRATION DOCUMENTATION Are you experiencing any cold symptoms or fever? No Have you had Guillain-Roachdale Syndrome (an illness that causes paralysis) within the last 6 weeks? No Have you had the flu shot in the past? YES Have you ever had a reaction to the flu shot? No Yaron Hernández LPN, 10/28/2022 1:08 PM Immunization Administration Documentation Time Out Procedure Performed: Yes Patient Identified (Ask Name/Date of ): Yes Does the patient have a fever greater than 101 degrees today? No Patient allergic to latex? No VFC Stock: No Immunization(s) verified: Yes, Immunization Name: Flu, VIS Sheet(s) given: Yes Verified Side and Site: Yes Verified Shot(s) with Parent(s)/Patient: Yes * Nevaeh Linda PA-C - 10/28/2022 12:59 PM EDT 10/28/2022 Cardiology Follow Up Primary Assembly Line Machine Operator: Dr. Gomes Cardiac Problems: Coronary artery disease, [...] up moving around, uses oxygen sometimes when walk ing around. Denies edema, PND, orthopnea, lightheadedness, syncope. [...] TabLET by mouth daily. 30 Tablet 11 Probiotic Daily Oral Capsule Take by mouth 1 Capsule in the morning. Vitamin D3 125 MCG (5000 UT) Oral Capsule Take 1 Capsule by mouth in the morning. CPAP every night at bedtime . 2 Liters Allopurinol 300 MG Oral Tablet (Zyloprim) Take [...] AND1 Capsule before bedtime. 60 Capsule 5 Easy Touch Pen Wren 31G X 8 MM (Insulin Pen Needle) [...] skin once a week. 4 mL 1 Octreotide Acetate 50 MCG/ML Injection Solution (Sandostatin) Inject 50mcg under the skin in the morning and the evening 180 mL 1 BD TB Syringe 27G X [...] under the skin daily. 90 mL 3 Betamethasone Dipropionate 0.05 % External Ointment Apply 2x daily to rash on back/abdomen/arms/legs until resolved, then when flaring again 100 g 0 Diclofenac Sodium 1 % External Gel (Voltaren) [...] resolved, then when flaring 454 g 1 Nitroglycerin 0.4 MG Sublingual Tablet Sublingual (Nitrostat) 1 every 5 minutes as needed with chest pain up to 3 doses in 15 minutes 25 Tablet 1 Current Facility-Administered Medications Medication Dose Route Frequency Provider Last Rate Last Admin Albuterol Sulfate (Proventil) (2.5 MG/3ML) 0.083% inhalation solution 2.5 mg 2.5 mg Nebulizer LOURDES Mccrary PA-C Albuterol Sulfate (Proventil) (5 MG/ML) 0.5% *conc* inhalation solution 2.5 mg 2.5 mg Nebulizer PRNJonathan J Mccrary, PA-C Past Medical History: Diagnosis Date (HFpEF) heart failure with preserved ejection fraction ([facility]) Acute blood loss anemia 10/29/2020 [facility] transfused Acute exacerbation of chronic obstructive pulmonary disease (COPD) ([facility]) 05/11/2018 [facility] Altered mental status 03/31/2017 likely [...] colon 11/06/2010 Hyperplastic polyps BMI 40.0-44.9, adult ([facility]) BPH without obstruction/lower urinary tract symptoms Chest pain Chest pain radiating to arm 07/22/2015 left chest pain radiating to arm, probably left rotator cuff CKD (chronic kidney disease), stage IV ([facility]) GFR 26.5 COPD, mild ([facility]) 08/21/2010 COPD, moderate ([facility]) 10/04/2014 PFT Coronary atherosclerosis of [place] coronary artery 07/04/2008 Ad[place] [facility] [place]-19 02/24/2021 Dermatophytosis of scalp or bello DM type 2 causing CKD stage 4 ([facility]) DM type 2, goal A1c [...] stage III (GFR 30-59 ml/min) ([facility]) 06/2008 Malignant neoplasm of prostate ([facility]) Prostate Mixed dyslipidemia Morbid obesity with BMI of 45.0-49.9, adult ([facility]) Other psoriasis S/P primary angioplasty with coronary stent 09/05/2013 drug eluting stents to 60% RCA, other grafts open except SVG to PDA is occluded Sleep apnea CPAP Sleep apnea, obstructive Symptomatic anemia 10/29/2020 Admitted [facility] and transfused TIA (transient ischemic attack) 02/04/2016 [facility] Tubular adenoma 10/31/2020 Family History Problem Relation Age of Onset Asthma Brother Cancer Grandfather (Maternal) stomach Lung Disorder Father Cancer Aunt (Unspecified) Cancer Uncle (Unspecified) Heart Disorder Brother 46 SC age 46 Heart Disorder Mother mi age 82 Diabetes Son 35 IDDM Mental Disorder Mother Received electric shcok in the [place] Blood Disorder Son "Thick Blood" Arthritis Son Social History Socioeconomic History Marital status: Spouse name: Cathryn Number of children: 2 Occupational History 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 Passed 11/2021 from dementia Social Determinants of Health Food Insecurity: No Food Insecurity Worried About Running Out of Food in the Last Year: Never true Ran Out of Food in the Last Year: Never true OBJECTIVE/PHYSICAL EXAMINATION: BP 126/78 | Pulse 76 [...] Below: June 24, 2021 TTE Interpretation Summary ([facility], Dr. Rolon): No change compared to previous [...] dysfunction. October 04, 2021 TTE Interpretation Summary ([facility], Dr. Gomes): Study is technically limited due to [...] 0.1%. Atrial paced 36.3%. Ventricular paced 99.7%. ASSESSMENT/PLAN: 82 year old year old male Chest discomfort ASCVD. 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 Hypertension, controlled. Diastolic congestive heart failure, compensated Dyslipidemia. LDL cholesterol 48 mg/dL in September 2021 ([facility]). Hypertriglyceridemia. Triglycerides 105 mg/dL on 10/14/2021. Right carotid bruit. Carotid duplex at [facility] on October 04, 2021 with no hemodynamically significant stenosis in the bilateral common or internal carotid arteries. Symptomatic anemia, followed by [facility] Hematology/Oncology Recurrent prostate cancer after previous brachytherapy, with obstructive voiding symptoms COPD, chronic respiratory failure with hypoxia Obstructive sleep apnea, CPAP therapy Type 2 diabetes mellitus Stage 4 chronic kidney disease Gout - chest discomfort x 1 month, occurs at rest and with exertion, due to cardiac risk factors and newchest pain, will order nuclear stress test for ischemic workup - Continue current cardiac medications as prescribed. DISPOSITION: Follow up 1 month or sooner if symptoms worsen/fail to improve. All questions were answered to the patients satisfaction. Patient advised to report to ED with any and all emergencies. The patient agrees to the above plan and will call with additional questions or concerns. Nevaeh Linda PA-C Cardiology, [facility] [address] [facility] [place] [address] I spent a total of 40 minutes on the date of service in preparation, delivery, and documentation ofthe care provided to Maurisio Beltran excluding any time spent in the performance of separately billedservices. This chart was completed in part utilizing [employer] Speech Voice Recognition Software. Grammatical errors, random [...] documented in this encounter Nursing Notes * Yaron Hernández LPN - 10/28/2022 1:06 PM EDT Patient identified by full name and date of Chief Complaint Patient presents with Follow Up 4 week follow up. Doing about the same. Intermittent left sided uncomfortable feeling. Feels "run down". Examination Room: 2 Name: Maurisio Beltran Date of : (1940). Reason for Visit: 4 week follow up Interim Hospitalization(s): Denies Problems/Concerns: See chief complaint Chest Pain/SOB: See chief complaint [facility] Discussed: Yes [facility] is a way you can [...] Specialty Care Team Description 11/17/2022 Office Visit [address] [place] [address] 11/30/2022 Office Visit Urology Denny Armando MD [address] [place] [address] [place] [address] 12/13/2022 Office Visit Cardiology [facility]h Linda [facility]C [facility] [place] [id number] 12/15/2022 Office Visit Family Medicine Nicola Prado MD [address] [place] [address] [place] [address] 12/20/2022 Office Visit Dermatology Meron Aragon PA-C [address] [place] [address] [place] [address] 01/28/2023 Office Visit Nephrology Verito Jovel PA-C [address] [facility], [place] [address] 03/04/2023 Office Visit Gastroenterology Marielena Hall CRNP [address] [place] [address] 03/29/2023 Office Visit Cardiology Blair Hannah PA-C [address] [place] [address] 06/02/2023 Nurse Only Ancillary Neeraj, Nurse [facility] [address] [place] [address] [place] [address] 10/12/2023 Office Visit Sleep Disorders Eulalia Milligan DO [address] [place] [address] 10/25/2023 Cardiac Studies Cardiology [facility], Pacer [address] [place] [address] Scheduled Orders Name Type Priority Associated Diagnoses Orde r Schedule NM MYOCARD PERF IMG SPECT MULT STUDIES WITH PHARM INTERV Cardiology Routine Chest pain, unspecified type Coronary artery disease involving [place] coronary artery of [place] heart without angina pectoris Dyslipidemia, goal LDL below 70 Cardiac pacemaker in situ CHB (complete heart block) (HCC) Expected: 10/29/2022, Expires: 11/28/2023 Scheduled Procedures Name Priority Associated Diagnoses Date/Ti [...] encounter Medical Devices Implanted Type Area Assistant Real Estate Manager Device Identifier Shelf Expiration Date Model / Serial / Lot Sut Steel 6 [id number] - [id number] Implanted:Qty: 6 on 07/10/2008 [place] [facility] [place]/A: Chest DO NOT USE 08/14/2012 [id number] / / [id number] documented as of this encounter Visit Diagnoses Diagnosis Chest pain, unspecified type- Primary Coronary artery disease involving [place] coronary artery of [place] heart without angina pectoris Cardiac pacemaker in situ Dyslipidemia, goal LDL below 70 Other and unspecified hyperlipidemia CHB (complete heart block) (HCC) Atrioventricular block, complete Need for prophylactic vaccination and inoculation against influenza Chronic heart failure with preserved ejection fraction (HCC) documented in this encounter Advance Directives Documents on File Type Date Recorded Patient Jacquard Card Lacer Expl anation Power of Paid Search Specialist 06/26/2019 POWER OF A TTORNEY Advance [...] the patient have Health Care Power of Paid Search Specialist? No Code Status History Code Status Date Activated Date Inactivated Comments Full Code 07/10/2008 6:37 PM 07/21/2008 4:52 PM This o rder reflects the patients wishes and were consensually agreed upon. Full Code 07/04/2008 2:18 PM 07/10/2008 6:30 PM Healthcare Agents on File Name Relationship Healthcare Agent [facility] p Dominique Beltran Adult Child Health Care Repr esentative (appointed verbally by patient or by statute hierarchy) Care Teams Grinder Dresser Relationship Specialty Start Date End Date Nicola Prado MD [address] [place] [address] [place] [address] PCP - General Family Medicine 06/19/21 documented as of this encounter
--- OUTSIDE RECORDS SUMMARY | 2023-02-03 20:29 | External Medical Summary | Summary of Care ---
Author Name Unknown Organization [facility] Address [address] [place] [address] Phone [phone] Care Team Providers Care Battery Engineer Name Role Phone Nicola Prado MD Primary Care Provide r Reason for Visit * Reason Onset Date Comments Medication Pre-auth 11/01/2022 Sandostatin Encounter Details Date Type Department Care Team Description 11/01/2022 Telephone Gastroenterology, [facility] [address] [place] [address] Marielena Hall CRNP [address] [place] [address] Medication Pre-auth (Sandostatin) Allergies Active Allergy Reactions Severity Noted Date [...] A1c goal of less than 8.0% ([facility]) Test blood sugar up to five [...] A1c goal of less than 8.0% ([facility]) 12 units with breakfast and supper [...] Tablet 1 05/05/2022 Active Easy Touch Pen [place] 31G X 8 MM (Insulin Pen Needle)Indications:T ype 2 diabetes mellitus with hemoglobin A1c goal of less than 8.0% ([facility]),Type 2 diabetes mellitus with stage 4 chronic kidney disease, unspecified whether digital project coordinator insulin use ([facility]) Use up to six times daily with insulin. DXe11.9 600 Each 3 05/22/2022 Active Albuterol Sulfate HFA 108 (90 Base) MCG/ACT Inhalation Aerosol SolutionIndications: COPD exacerbation ([facility]),Chronic cough Inhale by mouth 2 Puffs every 4 hours as needed for Cough or Shortness of Breath. Reports doesn't help 18 g 2 05/27/2022 Active Victoza 18 MG/3ML Subcutaneous Solution Pen-injector (Liraglutide)Indicat ions:Type 2 diabetes mellitus with hemoglobin A1c goal of less than 8.0% (HCC),Type 2 diabetes mellitus with stage 4 chronic kidney disease, with long-term current use of insulin ([facility]) Inject 1.8 mg under the skin [...] Release 12 Hour (Mucinex)Indications :COPD exacerbation ([facility]) Take 1 Tablet by mouth 2 times a day as needed for Congestion. Take with plenty of water. Do not cut, crush or chew 40 Tablet 0 10/13/2022 Active Tresiba FlexTouch 200 UNIT/ML Subcutaneous Solution Pen-injector (Insulin Degludec)Indications :Type 2 diabetes mellitus with hemoglobin A1c goal of less than 8.0% ([facility]) Inject 100 Units under the skin [...] Atherosclerosis of coronary artery bypass graft of [place] heart with angina pectoris 10/13/2022 Encounter for [...] urinary tr act symptoms 07/13/2001 Atherosclerosis of [place] co ronary artery of [place] heart without angina pectoris Morbid obesity with [...] 07/22/2008 0 Overview: Kianna Lyn, RN [phone] Examination following surgery 07/11/2008 Difficult intubation 07/10/2008 02/19/2020 Overview: Patient seen and examined in OR#1.Possible difficult intubation.TM distance about 5 cms.MP 3-4. Will plan FOB electively Due to current situation. EXAMINATION OF PARTICIPANT IN CLINICAL TRIAL-gen omics 07/04/2008 05/30/2009 Overview: Renamed Per Clinical Trials Billing Project. Study Titile: Genomic Markers for Patients with Cardiovascular Disease Project #[id number] PI: Miriam Roque MD Please call [phone] with study related questions Chronic coronary artery [...] at goal 07/04/2008 9 GENOMICS CARDIO RESEARCH OTHER*[id number] 200803/23/2016 Overview: Renamed Per Clinical Trials Billing Project. Study Titile: Genomic Markers for Patients with Cardiovascular Disease Project #[id number] PI: Miriam Roque MD Please call [phone] with study related questions Kidney disease, chronic, [...] authorization for their sandostatin through their [facility] insurance. ID: [id number] BIN:[id number] PCN:[id number] Target ship date is n/a. Thank you very much, Elaine Flowers Trouble Clerk, [facility] 11/01/2022 9:23 AM\\ documented in this encounter Plan of Treatment Upcoming Encounters Date Type Specialty Care Team Description 11/17/2022 Office Visit Pharmacy [address] [place] [address] 11/19/2022 Imaging Radiology 11/22/2022 Imaging Radiology 11/30/2022 Office Visit Urology Denny Armando MD [address] [address] [place] [address] 12/13/2022 Office Visit Cardiology Nevaeh Linda PA-C [address] [place] [address] [place] [address] 12/15/2022 Office Visit Family Medicine Nicola rPado MD [address] [place] [address] [place] [address] 12/20/2022 Office Visit Dermatology Meron Aragon PA-C [address] [place] [address] [place] [address] 01/28/2023 Office [facility] [address] 03/04/2023 Office Visit Gastroenterology Marielena Hall CRNP [address] [place] [address] 03/29/2023 Office Visit Cardiology Blair Hannah PA-C [address] [place] [address] 06/02/2023 Nurse Only Ancillary Nurse Neeraj [facility] [address] [place] [address] [place] [address] 10/12/2023 Office Visit Sleep Disorders Eulalia Milligan DO [address] [place] [address] 10/25/2023 Cardiac Studies Cardiology Keith Pickard [facility] [address] [place] [address] Scheduled Procedures Name Priority Associated Diagnoses Date/Ti [...] this encounter Medical Devices Implanted Type Area Information Resources Director Device Identifier Shelf Expiration Date Model / Serial / Lot Lei Agrawal 6 [id number] - [id number] Implanted:Qty: 6 on 07/10/2008 at [place] [facility] N/A: Chest DO NOT USE 08/14/2012 [id number] / / [id number] documented as of this encounter Advance Directives Documents on File Type Date Recorded Patient Scout Leaser Expl anation Power of Family Services Specialist 06/26/2019 POWER OF A TTORNEY Advance [...] the patient have Health Care Power of Family Services Specialist? No Code Status History Code Status [...] patient or by statute hierarchy) Care Teams Battery Engineer Relationship Specialty Start Date End Date Nicola Prado MD [address] [place] [address] [place] [address] PCP - General Family Medicine 06/19/21 documented as of this encounter
--- OUTSIDE RECORDS SUMMARY | 2023-02-03 20:29 | External Medical Summary | Summary of Care ---
Author Name Unknown Organization [facility] Address [address] [place] [address] Phone [phone] Care Team Providers Care Geothermal Powerplant Mechanic Helper Name Role Phone Nicola Prado MD Primary Care Provide r Reason for Visit * Reason Onset Date Comments Advice 10/29/2022 Test Results 10/29/2022 Encounter Details Date Type Department Care Team Description 10/29/[address] [address] Nicola Prado MD [address] [place] [address] [place] [phone] Advice; Test Results Allergies Active Allergy Reactions [...] 1 05/05/2022 Active Easy Touch Pen [place] 31G X 8 MM (Insulin Pen Needle)Indications:T ype 2 diabetes mellitus with hemoglobin A1c goal of less than 8.0% (HCC),Type 2 diabetes mellitus with stage 4 chronic kidney disease, unspecified whether terminal operations supervisor insulin use ([facility]) Use up to six [...] Atherosclerosis of coronary artery bypass graft of [place] heart with angina pectoris 10/13/2022 Encounter for [...] urinary tr act symptoms 07/13/2001 Atherosclerosis of [place] co ronary artery of [place] heart without angina pectoris Morbid obesity with [...] use aero chamber. Test performed by Dori GEOTECHNICAL LABORATORY TECHNICIAN CPFT Body mass index (BMI) of 45.0 [...] 07/22/2008 0 Overview: Kianna Lyn, RN [phone] Examination following surgery 07/11/2008 Difficult intubation 07/10/2008 02/19/2020 Overview: Patient seen and examined in OR#1.Possible difficult intubation.TM distance about 5 cms.MP 3-4. Will plan FOB electively Due to current situation. EXAMINATION OF PARTICIPANT IN CLINICAL TRIAL-gen omics 07/04/2008 05/30/2009 Overview: Renamed Per Clinical Trials Billing Project. Study Titile: Genomic Markers for Patients with Cardiovascular Disease Project #[id number] PI: Miriam Roque MD Please call [phone] with study related questions Chronic coronary artery [...] at goal 07/04/2008 9 GENOMICS CARDIO RESEARCH OTHER*[id number] 200803/23/2016 Overview: Renamed Per Clinical Trials Billing Project. Study Titile: Genomic Markers for Patients with Cardiovascular Disease Project #[id number] PI: Miriam Roque MD Please call [phone] with study related questions Kidney disease, chronic, [...] Miscellaneous Notes * Telephone Encounter - KATHE Tillman - [...] Would like a call from Dr. Prado. [phone] . documented in this encounter Plan of Treatment Upcoming Encounters Date Type Specialty Care Team Description 11/17/2022 Office Visit [address] [place] [address] 11/19/2022 Imaging Radiology 11/22/2022 Imaging Radiology 11/30/2022 Office Visit Urology Denny Armando MD [address] [place] [address] [place] [address] 12/13/2022 [facility] Visit [facility] [place] [address] 12/15/2022 Office Visit Family Medicine Nicola Prado MD [address] [place] [address] [place] [address] 12/20/2022 Office Visit Dermatology Meron Aragon PA-C [address] [place] [address] [place] [address] 01/28/2023 Office Visit Nephrology Verito Jovel PA-C 200 [place] [address] 03/04/2023 Office Visit Gastroenterology Marielena Hall CRNP [address] [place] [address] 03/29/2023 Office Visit Cardiology Blair Hannah PA-C [address] [place] [address] 06/02/2023 Nurse Only Ancillary Neeraj, Nurse Annual Wellness [address] [place] [address] [place] [address] 10/12/2023 Office Visit Sleep Disorders Eulalia Milligan DO [address] [place] [address] 10/25/2023 Cardiac Studies Cardiology [facility] Pacer [facility] [address] [place] [address] Scheduled Orders Name Type Priority Associated Diagnoses [...] this encounter Medical Devices Implanted Type Area Account Management Specialist Device Identifier Shelf Expiration Date Model / Serial / Lot Sut Steel 6 [id number] - [id number] Implanted:Qty: 6 on 07/10/2008 at OR [facility] N/A: Chest DO NOT USE 08/14/2012 [id number] / / [id number] documented as of this encounter Visit Diagnoses Diagnosis Anemia, unspecified type- Primary documented in this encounter Advance Directives Documents on File Type Date Recorded Patient Certified Credit Counselor Expl anation Power of Local Sales Associate 06/26/2019 POWER OF A TTORNEY Advance Directives [...] the patient have Health Care Power of Local Sales Associate? No Code Status History Code Status Date [...] patient or by statute hierarchy) Care Teams Geothermal Powerplant Mechanic Helper Relationship Specialty Start Date End Date Nicola Prado MD [address] [place] [address] [place] [address] PCP - General Family Medicine 06/19/21 documented as of this encounter
--- OUTSIDE RECORDS SUMMARY | 2023-02-03 20:29 | External Medical Summary | Summary of Care ---
Author Name Unknown Organization [facility] Address [address] [place] [address] Phone [phone] Care Team Providers Care Professional System Administrator Name Role Phone Nicola Prado MD Primary Care Provide r Reason for Visit * Reason Onset Date Comments Advice 10/29/2022 Test Results 10/29/2022 Encounter Details Date Type Department Care Team Description 10/29/[address] [address] Nicola Prado MD [address] [place] [address] [place] [phone] Advice; Test Results Allergies Active Allergy Reactions Severity Noted Date Comments Hydromorphone High 09/20/2021 Other reaction(s): Nausea Other reaction(s): Nausea 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/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 Other reaction(s): AMS Other reaction(s): AMS Prasugrel 04/02/2016 bleeding Prednisone High 09/20/2021 Other reaction(s): INCREASE BLOOD SUGAR Other reaction(s): INCREASE BLOOD SUGAR documented as of this encounter (statuses as of 10/29/2022) Medications Medication Sig Dispensed Refills Start Date [...] A1c goal of less than 8.0% ([facility]) Test blood sugar up to [...] Tablet 1 05/05/2022 Active Easy Touch Pen [place] 31G X 8 MM (Insulin Pen Needle)Indications:T ype 2 diabetes mellitus with hemoglobin A1c goal of less than 8.0% (HCC),Type 2 diabetes mellitus with stage 4 chronic kidney disease, unspecified whether penitentiary insulin use ([facility]) Use up to six times daily with insulin. DXe11.9 600 Each 3 05/22/2022 Active Albuterol Sulfate HFA 108 (90 Base) MCG/ACT Inhalation Aerosol SolutionIndications: COPD exacerbation ([facility]),Chronic cough Inhale by mouth 2 Puffs every 4 hours as needed for Cough or Shortness of Breath. Reports doesn't help 18 g 2 05/27/2022 Active Victoza 18 MG/3ML Subcutaneous Solution Pen-injector (Liraglutide)Indicat ions:Type 2 diabetes mellitus with hemoglobin A1c goal of less than 8.0% (HCC),Type 2 diabetes mellitus with stage 4 chronic kidney disease, with long-term current use of insulin ([facility]) Inject 1.8 mg under the [...] Release 12 Hour (Mucinex)Indications :COPD exacerbation ([facility]) Take 1 Tablet by mouth 2 times a day as needed for Congestion. Take with plenty of water. Do not cut, crush or chew 40 Tablet 0 10/13/2022 Active Tresiba FlexTouch 200 UNIT/ML Subcutaneous Solution Pen-injector (Insulin Degludec)Indications :Type 2 diabetes mellitus with hemoglobin A1c goal of less than 8.0% ([facility]) Inject 100 Units under the skin daily. 90 mL 3 10/25/2022 Active Octreotide Acetate 10 MG Intramuscular Kit (SandoSTATIN LAR [place]) Inject 10 mg into a large muscle Every Month. 1 Kit 12 10/29/2022 Active Hospital, Clinic, [...] as of this encounter (statuses as of 10/29/2022) Active Problems Problem Noted Date Atherosclerosis of coronary artery bypass graft of [place] heart with angina pectoris 10/13/2022 Encounter for [...] tr act symptoms 07/13/2001 Atherosclerosis of [place] co ronary artery of [place] heart without angina pectoris Morbid obesity with BMI of 40.0-44.9, ad ult documented as of this encounter (statuses as of 10/29/2022) Resolved Problems Problem Noted Date Resolved Date [...] use aero chamber. Test performed by Dori LABORER HEADING CPFT Body mass index (BMI) of 45.0 [...] ischemic attack) 02/04/2016 11/23/2017 Overview: [facility] Anemia of chronic renal failure 07/30/2015 [...] 07/22/2008 0 Overview: Kianna Lyn, RN [phone] Examination following surgery 07/11/2008 Difficult intubation 07/10/2008 02/19/2020 Overview: Patient seen and examined in OR#1.Possible difficult intubation.TM distance about 5 cms.MP 3-4. Will plan FOB electively Due to current situation. EXAMINATION OF PARTICIPANT IN CLINICAL TRIAL-gen omics 07/04/2008 05/30/2009 Overview: Renamed Per Clinical Trials Billing Project. Study Titile: Genomic Markers for Patients with Cardiovascular Disease Project #[id number] PI: Miriam Roque MD Please call [phone] with study related questions Chronic coronary artery [...] at goal 07/04/2008 9 GENOMICS CARDIO RESEARCH OTHER*[id number] 200803/23/2016 Overview: Renamed Per Clinical Trials Billing Project. Study Titile: Genomic Markers for Patients with Cardiovascular Disease Project #[id number] PI: Miriam Roque MD Please call [phone] with study related questions Kidney disease, chronic, [...] as of this encounter (statuses as of 10/29/2022) Immunizations Name Administration Dates Next Due COVID-19 [...] Would like a call from Dr. Prado. [phone] . documented in this encounter Plan of Treatment Upcoming Encounters Date Type Specialty Care Team Description 11/17/2022 Office Visit [address] [place] [phone] 11/19/2022 Imaging Radiology 11/22/2022 Imaging Radiology 11/30/2022 Office Visit Urology Denny Armando MD 27 [facility] [address] [place] [address] 12/13/2022 Office Visit Cardiology Nevaeh Linda PA-C [address] [place] [phone] 12/15/2022 Office Visit Family Medicine Nicola Prado MD [address] [place] [address] [place] [address] 12/20/2022 Office Visit Dermatology Meron Aragon PA-C [address] [place] [address] [place] [address] 01/28/2023 Office Visit Nephrology Verito Jovel [facility]-C [facility] [address] 03/04/2023 Office Visit Gastroenterology Marielena Hall CRNP [address] [place] [address] 03/29/2023 Office Visit Cardiology Blair Hannah PA-C [address] [place] [address] 06/02/2023 Nurse Only Ancillary Nurse Neeraj [address] [place] [address] 10/12/2023 Office Visit Sleep Disorders Eulalia Milligan DO [address] [place] [address] 10/25/2023 Cardiac Studies Cardiology Keith Pickard [facility] [address] [place] [address] Scheduled Orders Name Type Priority Associated Diagnoses [...] this encounter Medical Devices Implanted Type Area Pharmacy Order Entry Technician Device Identifier Shelf Expiration Date Model / Serial / Lot Lei Agrawal 6 [id number] - [id number] Implanted:Qty: 6 on 07/10/2008 at OR [facility] N/A: Chest DO NOT USE 08/14/2012 [id number] / / [id number] documented as of this encounter Visit Diagnoses Diagnosis Anemia, unspecified type- Primary documented in this encounter Advance Directives Documents on File Type Date Recorded Patient Supervisor Lime Expl anation Power of Physical Therapy Technician 06/26/2019 POWER OF A TTORNEY Advance [...] the patient have Health Care Power of Physical Therapy Technician? No Code Status History Code Status [...] patient or by statute hierarchy) Care Teams Professional System Administrator Relationship Specialty Start Date End Date Nicola Prado MD [address] [place] [address] [place] [address] PCP - General Family Medicine 06/19/21 documented as of this encounter
--- OUTSIDE RECORDS SUMMARY | 2023-02-03 20:29 | External Medical Summary | Summary of Care ---
Author Name Unknown Organization [facility] Address [address] [place] [address] Phone [phone] Care Team Providers Care Search Planner Name Role Phone Nicola Prado MD Primary Care Provide r Reason for Visit * Reason Onset Date Comments Advice 10/29/2022 Test Results 10/29/2022 Encounter Details Date Type Department Care Team Description 10/29/[address] [address] Nicola Prado MD [address] [place] [address] [place] [phone] Advice; Test Results Allergies Active Allergy Reactions [...] Tablet 1 05/05/2022 Active Easy Touch Pen [place] 31G X 8 MM (Insulin Pen Needle)Indications:T ype 2 diabetes mellitus with hemoglobin A1c goal of less than 8.0% (HCC),Type 2 diabetes mellitus with stage 4 chronic kidney disease, unspecified whether oil heaterman insulin use ([facility]) Use up to six times daily with insulin. DXe11.9 600 Each 3 05/22/2022 Active Albuterol Sulfate HFA 108 (90 Base) MCG/ACT Inhalation Aerosol SolutionIndications: COPD exacerbation ([facility]),Chronic cough Inhale [...] Release 12 Hour (Mucinex)Indications :COPD exacerbation ([facility]) Take 1 [...] Atherosclerosis of coronary artery bypass graft of [place] heart with angina pectoris 10/13/2022 Encounter for [...] urinary tr act symptoms 07/13/2001 Atherosclerosis of [place] co ronary artery of [place] heart without angina pectoris Morbid obesity with [...] use aero chamber. Test performed by Dori SHOE COBBLER CPFT Body mass index (BMI) of 45.0 [...] 07/22/2008 0 Overview: Kianna Lyn, RN 342 0405 Examination following surgery 07/11/2008 Difficult intubation 07/10/2008 02/19/2020 Overview: Patient seen and examined in OR#1.Possible difficult intubation.TM distance about 5 cms.MP 3-4. Will plan FOB electively Due to current situation. EXAMINATION OF PARTICIPANT IN CLINICAL TRIAL-gen omics 07/04/2008 05/30/2009 Overview: Renamed Per Clinical Trials Billing Project. Study Titile: Genomic Markers for Patients with Cardiovascular Disease Project #[id number] PI: Miriam Roque MD Please call [phone] with study related questions Chronic coronary artery [...] at goal 07/04/2008 9 GENOMICS CARDIO RESEARCH OTHER*[id number] 200803/23/2016 Overview: Renamed Per Clinical Trials Billing Project. Study Titile: Genomic Markers for Patients with Cardiovascular Disease Project #[id number] PI: Miriam Roque MD Please call [phone] with study related questions Kidney disease, chronic, [...] in 2 weeks * Telephone Encounter - KTAHE Rodriguez - 10/29/2022 2:00 PM EDT Pt [...] Would like a call from Dr. Prado. [phone] . documented in this encounter Plan of Treatment Upcoming Encounters Date Type Specialty Care Team Description 11/17/2022 Office Visit [address] [place] [address] 11/19/2022 Imaging Radiology 11/22/2022 Imaging Radiology 11/30/2022 Office Visit Urology Denny Armando MD [address] [place] [address] [place] [address] 12/13/2022 Office Visit [facility]iology [facility] [place] [address] 12/15/2022 Office Visit Family Medicine Nicola Prado MD [address] [place] [address] [place] [address] 12/20/2022 Office Visit Dermatology Meron Aragon PA-C [address] [place] [address] [place] [address] 01/28/2023 Office Visit Nephrology Verito Jovel PA-C 200 [place] [address] 03/04/2023 Office Visit Gastroenterology Marielena Hall CRNP [address] [place] [address] 03/29/2023 Office Visit Cardiology Blair Hannah PA-C [address] [place] [address] 06/02/2023 Nurse Only Ancillary Neeraj, Nurse Annual Wellness [address] [place] [address] [place] [address] 10/12/2023 Office Visit Sleep Disorders Eulalia Milligan DO [address] [place] [address] 10/25/2023 Cardiac Studies Cardiology [facility] Pacer [facility] [address] [place] [address] Scheduled Orders Name Type Priority Associated Diagnoses [...] this encounter Medical Devices Implanted Type Area Screen Tacker Device Identifier Shelf Expiration Date Model / Serial / Lot Sut Steel 6 [id number] - [id number] Implanted:Qty: 6 on 07/10/2008 at OR [facility] N/A: Chest DO NOT USE 08/14/2012 M654G / / [id number] documented as of this encounter Visit Diagnoses Diagnosis Anemia, unspecified type- Primary documented in this encounter Advance Directives Documents on File Type Date Recorded Patient Sausage Machine Operator Expl anation Power of Digital Watch Assembler 06/26/2019 POWER OF A TTORNEY Advance Directives [...] patient have Health Care Power of Digital Watch Assembler? No Code Status History Code Status Date [...] patient or by statute hierarchy) Care Teams Search Planner Relationship Specialty Start Date End Date Nicola Prado MD [address] [place] [address] [place] [address] PCP - General Family Medicine 06/19/21 documented as of this encounter
--- OUTSIDE RECORDS SUMMARY | 2023-02-03 20:29 | External Medical Summary | Summary of Care ---
Author Name Unknown Organization [facility] Address [address] [place] [address] Phone [phone] Care Team Providers Care Lathe Mechanic Name Role Phone Nicola Prado MD Primary Care Provide r Reason for Visit * Reason Onset Date Comments Advice 10/29/2022 Encounter Details Date Type Department Care Team Description 10/29/2022 Telephone Gastroenterology, [facility] [address] [place] [address] Marielena Hall CRNP [address] [place] [address] Advice Allergies Active Allergy Reactions Severity Noted [...] Tablet 1 05/05/2022 Active Easy Touch Pen [place] 31G X 8 MM (Insulin Pen Needle)Indications:T ype 2 diabetes mellitus with hemoglobin A1c goal of less than 8.0% (HCC),Type 2 diabetes mellitus with stage 4 chronic kidney disease, unspecified whether predatory animal exterminator insulin use ([facility]) Use up to six times daily with insulin. DXe11.9 600 Each 3 05/22/2022 Active Albuterol Sulfate HFA 108 (90 Base) MCG/ACT Inhalation Aerosol SolutionIndications: COPD exacerbation ([facility]),Chronic cough Inhale [...] Release 12 Hour (Mucinex)Indications :COPD exacerbation ([facility]) Take 1 Tablet by mouth [...] urinary tr act symptoms 07/13/2001 Atherosclerosis of [place] co ronary artery of [place] heart without angina pectoris Morbid obesity with [...] use aero chamber. Test performed by Dori BRIDGE MECHANIC CPFT Body mass index (BMI) of 45.0 [...] ACTIVE CASE MANAGEMENT 07/22/2008 0 Overview: Kianna yLn RN 342 4526 Examination following surgery 07/11/2008 Difficult intubation 07/10/2008 02/19/2020 Overview: Patient seen and examined in OR#1.Possible difficult intubation.TM distance about 5 cms.MP 3-4. Will plan FOB electively Due to current situation. EXAMINATION OF PARTICIPANT IN CLINICAL TRIAL-gen omics 07/04/2008 05/30/2009 Overview: Renamed Per Clinical Trials Billing Project. Study Titile: Genomic Markers for Patients with Cardiovascular Disease Project #[id number] PI: Miriam Roque MD Please call [phone] with study related questions Chronic coronary artery [...] at goal 07/04/2008 9 GENOMICS CARDIO RESEARCH OTHER*[id number] 200803/23/2016 Overview: Renamed Per Clinical Trials Billing Project. Study Titile: Genomic Markers for Patients with Cardiovascular Disease Project #[id number] PI: Miriam Roque MD Please call [phone] with study related questions Kidney disease, chronic, [...] a script of the OCtreotide LAR to [facility] specialty pharmacy. May need prior auth [...] Specialty Care Team Description 11/17/2022 Office Visit [address] [place] [address] 11/19/2022 Imaging Radiology 11/22/2022 Imaging Radiology 11/30/2022 Office Visit Urology Denny Armando MD [address] [place] [address] [place] [address] 12/13/2022 Office Visit Cardiology [facility] Linda [facility] [place] [address] 12/15/2022 Office Visit Family Medicine Nicola Prado MD [address] [place] [address] [place] [address] 12/20/2022 Office Visit Dermatology Meron Aragon PA-C [address] [place] [address] [place] [address] 01/28/2023 Office Visit Nephrology [facility]vel [facility]C [address] [facility] [address] 03/04/2023 Office Visit Gastroenterology Marielena Hall CRNP [address] [place] [address] 03/29/2023 Office Visit Cardiology Blair Hannah PA-C [address] [place] [address] 06/02/2023 Nurse Only Ancillary [place], Nurse Annual Wellness [address] [place] [address] [place] [address] 10/12/2023 Office Visit Sleep Disorders Eulalia Milligan, [address] [place] [address] 10/25/2023 Cardiac Studies Cardiology Neeraj [facility] [address] [place] [address] Scheduled Procedures Name Priority Associated Diagnoses Date/Ti [...] this encounter Medical Devices Implanted Type Area Film Technician Device Identifier Shelf Expiration Date Model / Serial / Lot Sut Steel 6 M654g - [id number] Implanted:Qty: 6 on 07/10/2008 at OR [facility] N/A: Chest DO NOT USE 08/14/2012 [id number] / / [id number] documented as of this encounter Advance Directives Documents on File Type Date Recorded Patient Assistant Softball Coach Expl anation Power of Chisel Mortiser Operator 06/26/2019 POWER OF A TTORNEY Advance [...] the patient have Health Care Power of Chisel Mortiser Operator? No Code Status History Code Status [...] patient or by statute hierarchy) Care Teams Lathe Mechanic Relationship Specialty Start Date End Date Nicola Prado MD [address] [place] [address] [place] [address] PCP - General Family Medicine 06/19/21 documented as of this encounter
--- OUTSIDE RECORDS SUMMARY | 2023-02-03 20:30 | External Medical Summary | Summary of Care ---
Author Name Unknown Organization [facility] Address [address] [place] [address] Phone [phone] Care Team Providers Care Physiologist Name Role Phone Nicola Prado MD Primary Care Provide r Reason for Visit * Reason Onset Date Comments Advice 10/20/2022 Encounter Details Date Type Department Care Team Description 10/20/2022 Telephone Pulmonary Medicine, [facility] [address] [place] [address] Eulalia Milligan DO [address] [place] [address] Advice Allergies Active Allergy Reactions Severity Noted Date Comments Hydromorphone High 09/20/2021 Other reaction(s): Nausea Other reaction(s): Nausea 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/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 Other reaction(s): AMS Other reaction(s): AMS Prasugrel 04/02/2016 bleeding Prednisone High 09/20/2021 Other reaction(s): INCREASE BLOOD SUGAR Other reaction(s): INCREASE BLOOD SUGAR documented as of this encounter (statuses as of 10/27/2022) Medications Medication Sig Dispensed Refills Start Date [...] hemoglobin A1c goal of less than 8.0% ([facility]) Test blood sugar up to [...] the morning. 90 Capsule 3 3 Active Omeprazole 20 MG Oral Capsule Delayed Release (PriLOSEC) Take 1 Capsule BY MOUTH in the morning AND 1 Capsule before bedtime. 60 Capsule 5 3 Active Nitroglycerin 0.4 MG Sublingual Tablet Sublingual (Nitrostat) 1 every 5 minutes as needed with chest pain up to 3 doses in 15 minutes 25 Tablet 1 3 Active Easy Touch Pen [place] 31G X 8 MM (Insulin Pen Needle)Indicatio ns:Type 2 diabetes mellitus with hemoglobin A1c goal of less than 8.0% (HCC),Type 2 diabetes mellitus with stage 4 chronic kidney disease, unspecified whether ocean transportation intermediary insulin use ([facility]) Use up to six times daily with insulin. DXe11.9 600 Each 3 3 Active Albuterol Sulfate HFA 108 (90 Base) MCG/ACT Inhalation Aerosol SolutionIndicati ons:COPD exacerbation ([facility]),Chronic cough Inhale by mouth 2 [...] a week. 4 mL 1 3 Active Octreotide Acetate 50 MCG/ML Injection Solution (Sandostatin) Inject 50mcg under the skin in the morning and the evening 180 mL 1 3 Active BD TB Syringe 27G X 1/2" 1 ML (Tuberculin Syringe) Use twice daily to inject octreotide 180 Each 1 3 Active Isosorbide Mononitrate ER 30 MG Oral Tablet Extended Release 24 Hour (Imdur) Take 2 Tablets by mouth in the morning. In the morning.. 180 Tablet 3 3 Active Atorvastatin Calcium 80 MG Oral Tablet (Lipitor)Indicat ions:Dyslipidemi a, goal LDL below 70 Take 1 Tablet by mouth daily. 90 Tablet 0 3 Active guaiFENesin ER 600 MG Oral Tablet Extended Release 12 Hour (Mucinex)Indicat ions:COPD exacerbation (HCC) Take 1 Tablet by mouth 2 times a day as needed for Congestion. Take with plenty of water. Do not cut, crush or chew 40 Tablet 0 3 Active methylPREDNISolo ne 4 MG Oral Tablet Therapy Pack (Medrol Dosepack)Indicat ions:COPD exacerbation (HCC) follow package directions 21 Tablet 0 3 Active Tresiba FlexTouch 200 UNIT/ML Subcutaneous Solution Pen-injector (Insulin Degludec)Indicat ions:Type 2 diabetes mellitus with hemoglobin A1c goal of less than 8.0% ([facility]) Inject 110 Units under the skin in the morning. 63 mL 3 3 10/26/19 23 Discontinued Azithromycin 250 MG Oral Tablet (Zithromax Z-Kei)Indication s:COPD exacerbation (HCC) Take two tablets by mouth on first day, then 1 tablet daily until gone 6 Tablet 0 3 10/27/19 23 Discontinued(Pat ient preference/disco ntinuation) Hospital, Clinic, or Other Facility Administered Medication [...] as of this encounter (statuses as of 10/27/2022) Active Problems Problem Noted Date Atherosclerosis of coronary artery bypass graft of [place] heart with angina pectoris 10/13/2022 Encounter for [...] urinary tr act symptoms 07/13/2001 Atherosclerosis of [place] co ronary artery of [place] heart without angina pectoris Morbid obesity with BMI of 40.0-44.9, ad ult documented as of this encounter (statuses as of 10/27/2022) Resolved Problems Problem Noted Date Resolved Date [...] MANAGEMENT 07/22/2008 0 Overview: Kianna Lyn RN [phone] Examination following surgery 07/11/2008 Difficult intubation 07/10/2008 02/19/2020 Overview: Patient seen and examined in OR#1.Possible difficult intubation.TM distance about 5 cms.MP 3-4. Will plan FOB electively Due to current situation. EXAMINATION OF PARTICIPANT IN CLINICAL TRIAL-gen omics 07/04/2008 05/30/2009 Overview: Renamed Per Clinical Trials Billing Project. Study Titile: Genomic Markers for Patients with Cardiovascular Disease Project #[id number] PI: Miriam Roque MD Please call [phone] with study related questions Chronic coronary artery [...] at goal 07/04/2008 9 GENOMICS CARDIO RESEARCH OTHER*[id number] 200803/23/2016 Overview: Renamed Per Clinical Trials Billing Project. Study Titile: Genomic Markers for Patients with Cardiovascular Disease Project #[id number] PI: Miriam Roque MD Please call [phone] with study related questions Kidney disease, chronic, [...] as of this encounter (statuses as of 10/27/2022) Immunizations Name Administration Dates Next Due COVID-19 [...] encounter Miscellaneous Notes * Telephone Encounter - Brittany Rodriguez LPN - 10/27/2022 1:45 PM EDT Pressure setting has not been changed yet. Will fax order to [facility] directly * Telephone Encounter - Eulalia Milligan DO - 10/20/2022 6:31 PM EDT There's a note from the date of the appt & ordered setting change (10/11) that the order was placed into . My email from on the same date states order is being fulfilled by [facility]. Sleep Nurse, please check cricket/ Laura regarding this, and/or fax the order directly to them if needed. * Telephone Encounter - KATHE Bocanegra - 10/20/2022 2:06 PM EDT Pt is calling and [facility] in [place] hasn't received the new pressure for pt's machine. Please advise. documented in this encounter Plan of Treatment Upcoming Encounters Date Type Specialty Care Team Description 10/28/2022 Office Visit Cardiology Nevaeh Linda PA-C [address] [facility] [place] [id number] 11/17/2022 Office Visit [address] [place] [address] 11/30/2022 Office Visit Urology Denny Armando MD [address] [address] [place] [address] 12/15/2022 Office Visit Family Medicine Nicola Prado MD [address] [place] [address] [place] [address] 12/20/2022 Office Visit Dermatology Meron Aragon PA-C [address] [place] [address] [place] [address] 01/28/2023 Office Visit Nephrology Verito Jovel PA-C [address] [place] [address] 03/04/2023 Office Visit Gastroenterology Marielena Hall CRNP [address] [place] [address] 03/29/2023 Office Visit Cardiology Blair Hannah PA-C [address] [place] [address] 06/02/2023 Nurse Only Ancillary Ne[facility] Nurse [facility] [address] [place] [address] [place] [address] 10/12/2023 Office Visit Sleep Disorders Eulalia Milligan DO [address] [place] [address] 10/25/2023 Cardiac Studies Cardiology [facility] [address] [place] [address] Scheduled Procedures Name Priority Associated Diagnoses Date/Ti [...] 09/18/2022 09/18/2021, , 06/03/2020, Additional history exists Influenza Vaccine (FLU shot) (#1) 2022 10/22/2021, 11/10/2020, 10/23/2019, Additional history exists HbA1c 04/08/2023 10/06/2022, 03/0 [...] Completed 02/22/2014, 04/30/2008 Nephrology Referral Discontinued 10/12/2022 GARDASIL-HPV IMMUNIZATION SERIES Aged Out No longer eligible based on patient's age to complete this topic Hepatitis B Aged Out No longer eligi ble based on patient's age to complete this topic MENINGOCOCCAL (MENACTRA/MENVEO) Aged Out No longer eligible based on patient's age to complete this topic documented as of this encounter Medical Devices Implanted Type Area Hvac/R Service Technician Device Identifier Shelf Expiration Date Model / Serial / Lot Sut Steel 6 [id number] - [id number] Implanted:Qty: 6 on 07/10/2008 at OR [facility] N/A: Chest DO NOT USE 08/14/2012 [id number] / / [id number] documented as of this encounter Advance Directives Documents on File Type Date Recorded Patient 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 No Code Status History Code Status [...] patient or by statute hierarchy) Care Teams Physiologist Relationship Specialty Start Date End Date Nicola Prado MD [address] [place] [address] [place] [address] PCP - General Family Medicine 06/19/21 documented as of this encounter
--- OUTSIDE RECORDS SUMMARY | 2023-02-03 20:30 | External Medical Summary | Summary of Care ---
Author Name Unknown Organization [facility] Address [address] [place] [address] Phone [phone] Care Team Providers Care Mop Man Name Role Phone Nicola Menard MD Primary Care Provide r Reason for Visit * Reason Comments eRx-Medication Refill Encounter Details Date Type Department Care Team Description 10/24/2022 Refill Pharmacy, [address] [place] [address] Nicola Menard MD [address] [place] [address] [place] [address] Type 2 diabetes mellitus with hemoglobin A1c goal of less than 8.0% ([facility]) Allergies Active Allergy Reactions Severity Noted Date Comments Hydromorphone High 09/20/2021 Other reaction(s): Nausea Other reaction(s): Nausea 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/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 Other reaction(s): AMS Other reaction(s): AMS Prasugrel 04/02/2016 bleeding Prednisone High 09/20/2021 Other reaction(s): INCREASE BLOOD SUGAR Other reaction(s): INCREASE BLOOD SUGAR documented as of this encounter (statuses as of 10/25/2022) Medications Medication Sig Dispensed Refills Start Date [...] 90 Tablet 3 12/16/2021 Active OneTouch UltraSoft LancetsIndication s:Type 2 diabetes mellitus with hemoglobin A1c goal of less than 8.0% ([facility]) Test blood sugar up to five times daily; dx E11.9 450 Each 3 12/17/2021 Active OneTouch Ultra In Vitro Strip (Glucose Blood)Indications :Type 2 diabetes mellitus with hemoglobin A1c goal of less than 8.0% ([facility]) 3-4 times a day 450 Strip 3 12/17/2021 Active Xiidra 5 % Ophthalmic Solution instill 1 drop by ophthalmic route 2 times every day into both eyes. OK for 90 day supply. 0 01/05/2022 Active NovoLOG FlexPen 100 UNIT/ML Subcutaneous Solution Pen-injector (insulin aspart)Indication s:Type 2 diabetes mellitus with hemoglobin A1c goal of less than 8.0% ([facility]) 12 units with breakfast and [...] Tablet 1 05/05/2022 Active Easy Touch Pen [place] 31G X 8 MM (Insulin Pen Needle)Indication s:Type 2 diabetes mellitus with hemoglobin A1c goal of less than 8.0% ([facility]),Type 2 diabetes mellitus with stage 4 chronic kidney disease, unspecified whether long-term insulin use ([facility]) Use up to six times daily with insulin. DXe11.9 600 Each 3 05/22/2022 Active Albuterol Sulfate HFA 108 (90 Base) MCG/ACT Inhalation Aerosol SolutionIndicatio ns:COPD exacerbation ([facility]),Chronic cough Inhale by mouth 2 Puffs every 4 hours as needed for Cough or Shortness of Breath. Reports doesn't help 18 g 2 05/27/2022 Active Victoza 18 MG/3ML Subcutaneous Solution Pen-injector (Liraglutide)Kimberly cations:Type 2 diabetes mellitus with hemoglobin A1c goal of less than 8.0% ([facility]),Type 2 diabetes mellitus with stage [...] mouth daily. 90 Tablet 0 10/13/2022 Active Azithromycin 250 MG Oral Tablet (Zithromax Z-Kei)Indications :COPD exacerbation (HCC) Take two tablets by mouth on first day, then 1 tablet daily until gone 6 Tablet 0 10/13/2022 Active guaiFENesin ER 600 MG Oral Tablet Extended Release 12 Hour (Mucinex)Indicati ons:COPD exacerbation (HCC) Take 1 Tablet by mouth 2 times a day as needed for Congestion. Take with plenty of water. Do not cut, crush or chew 40 Tablet 0 10/13/2022 Active methylPREDNISolon e 4 MG Oral Tablet Therapy Pack (Medrol Dosepack)Indicati ons:COPD exacerbation (HCC) follow package directions 21 Tablet 0 10/13/2022 Active Tresiba FlexTouch 200 UNIT/ML Subcutaneous Solution Pen-injector (Insulin Degludec)Indicati ons:Type 2 diabetes mellitus with hemoglobin A1c goal of less than 8.0% (HCC) Inject 100 Units under the skin daily. 90 mL 3 10/25/2022 Active Tresiba FlexTouch 200 UNIT/ML Subcutaneous Solution Pen-injector (Insulin Degludec)Indicati ons:Type 2 diabetes mellitus with hemoglobin A1c goal of less than 8.0% ([facility]) Inject 110 Units under the skin in the morning. 63 mL 3 03/23/2022 10/26/19 23 Discontinued Hospital, Clinic, or Other Facility [...] as of this encounter (statuses as of 10/25/2022) Active Problems Problem Noted Date Atherosclerosis of coronary artery bypass graft of [place] heart with angina pectoris 10/13/2022 Encounter for [...] urinary tr act symptoms 07/13/2001 Atherosclerosis of [place] co ronary artery of [place] heart without angina pectoris Morbid obesity with BMI of 40.0-44.9, ad ult documented as of this encounter (statuses as of 10/25/2022) Resolved Problems Problem Noted Date Resolved Date [...] ischemic attack) 02/04/2016 11/23/2017 Overview: [facility] Anemia of chronic renal failure [...] MANAGEMENT 07/22/2008 0 Overview: Kianna Lyn, RN [phone] Examination following surgery 07/11/2008 Difficult intubation 07/10/2008 02/19/2020 Overview: Patient seen and examined in OR#1.Possible difficult intubation.TM distance about 5 cms.MP 3-4. Will plan FOB electively Due to current situation. EXAMINATION OF PARTICIPANT IN CLINICAL TRIAL-gen omics 07/04/2008 05/30/2009 Overview: Renamed Per Clinical Trials Billing Project. Study Titile: Genomic Markers for Patients with Cardiovascular Disease Project #[id number] PI: Miriam Roque MD Please call [phone] with study related questions Chronic coronary artery [...] at goal 07/04/2008 9 GENOMICS CARDIO RESEARCH OTHER*[id number] 200803/23/2016 Overview: Renamed Per Clinical Trials Billing Project. Study Titile: Genomic Markers for Patients with Cardiovascular Disease Project #[id number] PI: Miriam Roque MD Please call [phone] with study related questions Kidney disease, chronic, [...] as of this encounter (statuses as of 10/25/2022) Immunizations Name Administration Dates Next Due COVID-19 mRNA, LNP-s, No Pre serve, 2-Dose Series (CyberX) 12/09/2020,05/09/2020,04/11/2020 COVID-19, LNP-s, No Preserve , Juan [...] Miscellaneous Notes * Telephone Encounter - HARLEY Navarro - 10/25/2022 9:58 AM EDT Pt calling to request Tresiba FlexTouch 200 UNIT/ML Subcutaneous Solution Pen- injector (Insulin Degludec) . Informed pt that RX is available at their pharmacy. Pt verbalized understanding and stated they will check with their pharmacy regarding this medication. Thank you, Charlene Stover [employer] Yard Worker [facility] ([facility]) 10/25/2022,9:58 AM * Telephone Encounter - Tricia Alvarez [facility] - 10/25/2022 8:20 AM EDT Signed Prescriptions: Disp Refills Tresiba FlexTouch 200 UNIT/ML Subcutaneous*90 mL 3 Sig: Inject 100 Units under the skin daily.Authorizing Provider: Luis MENARD User: TRICIA ALVAREZ documented in this encounter Plan of Treatment Upcoming Encounters Date Type Specialty Care Team Description 10/26/2022 Office Visit Family Medicine Alissa Drew PA-C [address] [place] [address] [place] [address] 10/28/2022 Office Visit Cardiology Nevaeh Linda PA-C [address] [facility] [place] [address] 11/17/2022 Office Visit [address] [place] [address] 11/30/2022 Office Visit Urology Denny Armando MD [address] [address] [place] [address] 12/15/2022 Office Visit Family Medicine Nicola Menard MD [address] [place] [address] [place] [address] 12/20/2022 Office Visit Dermatology Meron Aragon PA-C [address] [place] [address] [place] [address] 01/28/2023 Office Visit Nephrology Verito Jovel PA-C [address] [place] [address], [place] [phone] 03/04/2023 Office Visit Gastroenterology Marielena Hall CRNP [address] [place] [address] 03/29/2023 Office Visit Cardiology Blair Hannah PA-C [address] [place] [address] 06/02/2023 Nurse Only Ancillary Nurse Neeraj Annual [address] [place] [address] 10/12/2023 Office Visit Sleep Disorders Eulalia Milligan DO [address] [place] [address] 10/25/2023 Cardiac Studies Cardiology Keith Pickard [facility] [address] [place] [address] Scheduled Procedures Name Priority Associated Diagnoses Date/Ti [...] 2022 10/22/2021, 11/10/2020, 10/23/2019, Additional history exists O2 ASSESSMENT COMPLETED IN PAST YEAR FOR COPD 10/23/2022 10/13/2022 HbA1c 04/08/2023 10/06/2022, 03/0 10/2022, 10/22/2021, Additional history exists GFR 04/13/2023 10/11/2022, 0802/2022, 09/09/2022, Additional history exists Albumin/Creatinine Ratio 04/23/2023 023, 03/24/2022, 06/19/2021, Additional history exists Depression Screening 05/29/2023 05/28/2022 Diabetic Foot Exam 05/29/2023 05/28/2022, 0 04/24/2020, 12/20/2018, Additional history exists COLONOSCOPY-EVERY 5 YRS AGES [...] this encounter Medical Devices Implanted Type Area Cloth Folder Machine Device Identifier Shelf Expiration Date Model / Serial / Lot Sut Steel 6 [id number] - [id number] Implanted:Qty: 6 on 07/10/[address] [facility] N/A: Chest DO NOT USE 08/14/2012 [id number] / / [id number] documented as of this encounter Visit Diagnoses Diagnosis Type 2 diabetes mellitus with hemoglobin A1c goal of less than 8.0% (HCC) documented in this encounter Advance Directives Documents on File Type Date Recorded Patient Direct Marketing Specialist Expl anation Power of Director Project Management 06/26/2019 POWER OF A TTORNEY Advance Directives [...] patient have Health Care Power of Director Project Management? No Code Status History Code Status Date [...] patient or by statute hierarchy) Care Teams Mop Man Relationship Specialty Start Date End Date Nicola Menard MD [address] [place] [address] [place] [address] PCP - General Family Medicine 06/19/21 documented as of this encounter
--- OUTSIDE RECORDS SUMMARY | 2023-02-03 20:30 | External Medical Summary | Summary of Care ---
Author Name Unknown Organization [facility] Address [address] [place] [address] Phone [phone] Care Team Providers Care English As A Second Language Teacher Name Role Phone Nicola Prado MD Primary Care Provide r Encounter Details Date Type Department Care Team Description 10/26/2022 Result Scan Unspecified Department Nhan Gomes MD [address] [place] [address] <No scans attached> Allergies Active Allergy Reactions Severity Noted Date Comments Hydromorphone High 09/20/2021 Other reaction(s): Nausea Other reaction(s): Nausea 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/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 Other reaction(s): AMS Other reaction(s): AMS Prasugrel 04/02/2016 bleeding Prednisone High 09/20/2021 Other reaction(s): INCREASE BLOOD SUGAR Other reaction(s): INCREASE BLOOD SUGAR documented as of this encounter (statuses as of 10/26/2022) Medications Medication Sig Dispensed Refills Start Date [...] eczema Apply 2x daily to rash on back/abdomen/arms/ legs until resolved, then when flaring again 100 [...] mouth daily. 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 ([facility]) [...] Active Azithromycin 250 MG Oral Tablet (Zithromax Z-Kei)Indications:C OPD exacerbation ([facility]) Take two tablets by mouth on first [...] or chew 40 Tablet 0 10/13/2022 Active methylPREDNISolone 4 MG Oral Tablet Therapy Pack (Medrol Dosepack)Indication s:COPD exacerbation ([facility]) follow package directions 21 Tablet 0 10/13/2022 Active Tresiba FlexTouch 200 UNIT/ML Subcutaneous Solution Pen-injector (Insulin Degludec)Indication s:Type 2 diabetes mellitus with hemoglobin A1c goal of less than 8.0% ([facility]) Inject 100 Units under the skin daily. 90 mL 3 10/25/2022 Active Hospital, Clinic, or Other Facility Administered [...] as of this encounter (statuses as of 10/26/2022) Active Problems Problem Noted Date Atherosclerosis of [...] urinary tr act symptoms 07/13/2001 Atherosclerosis of [place] co ronary artery of [place] heart without angina pectoris Morbid obesity with BMI of 40.0-44.9, ad ult documented as of this encounter (statuses as of 10/26/2022) Resolved Problems Problem Noted Date Resolved Date [...] use aero chamber. Test performed by Dori PIPE FOREMAN CPFT Body mass index (BMI) of 45.0 [...] MANAGEMENT 07/22/2008 0 Overview: Kianna Lyn RN [phone] Examination following surgery 07/11/2008 Difficult intubation 07/10/2008 02/19/2020 Overview: Patient seen and examined in OR#1.Possible difficult intubation.TM distance about 5 cms.MP 3-4. Will plan FOB electively Due to current situation. EXAMINATION OF PARTICIPANT IN CLINICAL TRIAL-gen omics 07/04/2008 05/30/2009 Overview: Renamed Per Clinical Trials Billing Project. Study Titile: Genomic Markers for Patients with Cardiovascular Disease Project #[id number] PI: Miriam Roque MD Please call [phone] with study related questions Chronic coronary artery [...] at goal 07/04/2008 9 GENOMICS CARDIO RESEARCH OTHER*[id number] 200803/23/2016 Overview: Renamed Per Clinical Trials Billing Project. Study Titile: Genomic Markers for Patients with Cardiovascular Disease Project #[id number] PI: Miriam Roque MD Please call [phone] with study related questions Kidney disease, chronic, [...] as of this encounter (statuses as of 10/26/2022) Immunizations Name Administration Dates Next Due COVID-19 [...] Office Visit Family Medicine Alissa Drew PA-C [address] [place] [address] [place] [address] 10/28/2022 Office Visit Cardiology Nevaeh Linda PA-C [address] [facility] [place] [address] 11/17/2022 Office Visit [address] [place] [address] 11/30/2022 Office Visit Urology Denny Armando MD [address] [address] [place] [address] 12/15/2022 Office Visit Family Medicine Nicola Prado MD [address] [place] [address] [place] [address] 12/20/2022 Office Visit Dermatology Meron Aragon PA-C [address] [place] [address] [place] [address] 01/28/2023 Office Visit Nephrology Verito Jovel PA-C [facility] [place] [address] 03/04/2023 Office Visit Gastroenterology Marielena Hall CRNP [address] [place] [address] 03/29/2023 Office Visit Cardiology Blair Hannah PA-C [address] [place] [address] 06/02/2023 Nurse Only Ancillary Nurse Neeraj [facility] [address] [place] [address] [place] [address] 10/12/2023 Office Visit Sleep Disorders Eulalia Milligan DO [address] [place] [address] 10/25/2023 Cardiac Studies Cardiology Keith Pickard [facility] [address] [place] [address] Scheduled Procedures Name Priority Associated Diagnoses Date/Ti [...] 10/22/2021, Additional history exists GFR 04/13/2023 10/11/2022, 09/15, 09/09/2022, Additional history exists Albumin/Creatinine Ratio 04/23/2023 [...] encounter Medical Devices Implanted Type Area Manager Garage Device Identifier Shelf Expiration Date Model / Serial / Lot Sut Steel 6 [id number] - [id number] Implanted:Qty: 6 on 07/10/2008 at OR [facility] N/A: Chest DO NOT USE 08/14/2012 [id number] / / [id number] documented as of this encounter Procedures Procedure Name Priority Date/Time Associated Diagnosis Comments CARDIOLOGY SCANNED RESULT 10/26/2022 documented in this encounter Results * CARDIOLOGY SCANNED RESULT (10/26/2022) 10/26/2022 Nhan Gomes MD OTHER documented in this encounter Advance Directives Documents on File Type Date Recorded Patient Frozen Food Department Manager Expl anation Power of Calendar Control Clerk Blood Bank 06/26/2019 POWER OF A TTORNEY Advance Directives [...] the patient have Health Care Power of Calendar Control Clerk Blood Bank? No Code Status History Code Status Date [...] patient or by statute hierarchy) Care Teams English As A Second Language Teacher Relationship Specialty Start Date End Date Nicola Prado MD [address] [place] [address] [place] [phone] PCP - General Family Medicine 06/19/21 documented as of this encounter
--- OUTSIDE RECORDS SUMMARY | 2023-02-03 20:30 | External Medical Summary ---
Author Name Unknown Address Unknown Organization K01:LABORATORY [facility] [place] - [address] [facility] [address] Laboratory Report Ordering Provider Test Date Status VIDA CREWSERNESTOSANCHEZBrody 10/26/2022 11:14:14 Final Observation Date Value Abnormality Reference (Units ) Status Retic, % (auto) 10/26/2022 11:14:14 4.11 Above high normal 0.80-1.90 (%) Final Reticulocytes, Absolute 10/26/2022 11:14:14 140.6 Above high normal 31.3-100.1 (K/uL) Final Reticulocyte fraction, immature 10/26/2022 11:14:14 27.2 Above high normal 2.5-20.6 (%) Final Reticulocyte HGB 10/26/2022 11:14:14 34.2 29.7-37.4 (pg) Final Performing Location LABORATORY [facility] - [address] [facility] [address]
--- OUTSIDE RECORDS SUMMARY | 2023-02-03 20:30 | External Medical Summary ---
Author Name Unknown Address Unknown Organization K01:LABORATORY [facility] [place] - [address] [facility] [address] [facility] [address] Laboratory Report Ordering Provider Test Date Status BENJAMIN CREWS 10/26/2022 11:14:14 Final Observation Date Value Abnormality Reference (Units ) Status TSH 10/26/2022 11:14:14 1.32 0.27-4.20 (uIU/mL) Final Performing Location LABORATORY [facility] [place] - [address] [facility] [address]
--- OUTSIDE RECORDS SUMMARY | 2023-02-03 20:30 | External Medical Summary ---
Author Name Unknown Address Unknown Organization K01:LABORATORY [facility] [place] - [address] [facility] [address] Laboratory Report Ordering Provider Test Date Status BENJAMIN CREWS 10/26/2022 11:14:14 Final Observation Date Value Abnormality Reference (Units ) Status SYNC LEUKOCYTES IN BLOOD BY AUTOMATED COUNT 10/26/2022 11:14:14 10.70 4.00-10.80 (K/uL) Final Segs 10/26/2022 11:14:14 71.3 40.0-75.0 (%) Final Lymphs % 10/26/2022 11:14:14 16.6 Below low normal 18.0-42.0 (%) Final Monos 10/26/2022 11:14:14 3.9 1.0-11.0 (%) Final Eosinophils 10/26/2022 11:14:14 7.2 Above high normal 0.0-6.0 (%) Final Basos 10/26/2022 11:14:14 0.5 0.0-2.0 (%) Final Immature Granulocyte, Percent 10/26/2022 11:14:14 0.5 0.0-2.0 (%) Final Absolute Segs 10/26/2022 11:14:14 7.63 1.80-7.70 (K/uL) Final Lymphs, absolute 10/26/2022 11:14:14 1.78 1.00-4.80 (K/ul) Final Monos, Abs 10/26/2022 11:14:14 0.42 0.00-1.10 (K/uL) Final Eos, Abs 10/26/2022 11:14:14 0.77 Above high normal 0.00-0.70 (K/uL) Final Basos, Abs 10/26/2022 11:14:14 0.05 0.00-0.20 (K/uL) Final Immature Granulocytes, Number 10/26/2022 11:14:14 0.05 0.00-0.20 (K/uL) Final Performing Location LABORATORY [facility] - [facility] [address] [facility] [address]
--- OUTSIDE RECORDS SUMMARY | 2023-02-03 20:30 | External Medical Summary | Summary of Care ---
Author Name Unknown Organization [facility] Address [address] [place] [address] Phone [phone] Care Team Providers Care Boat Master Name Role Phone Nicola Prado MD Primary Care Provide r Reason for Visit * Reason Comments Outpatient Testing Encounter Details Date Type Department Care Team Description 10/26/2022 Laboratory Laboratory [address] [place] [phone] [place] [id number] Iron deficiency anemia; Stage 3b chronic kidney disease (HCC); Hyperuricemia; History of acute renal failure; Fatigue, unspecified type Allergies Active Allergy Reactions Severity [...] of less than 8.0% ([facility]) 12 units with breakfast and supper [...] Tablet 1 05/05/2022 Active Easy Touch Pen [place] 31G X 8 MM (Insulin Pen Needle)Indications: Type 2 diabetes mellitus with hemoglobin A1c goal of less than 8.0% ([facility]),Type 2 diabetes mellitus with stage 4 chronic kidney disease, unspecified whether terminal supervisor insulin use ([facility]) Use up to six times daily with insulin. DXe11.9 600 Each 3 05/22/2022 Active Albuterol Sulfate HFA 108 (90 Base) MCG/ACT Inhalation Aerosol SolutionIndications :COPD exacerbation ([facility]),Chronic cough Inhale by mouth 2 Puffs [...] Extended Release 12 Hour (Mucinex)Indication s:COPD exacerbation ([facility]) Take 1 Tablet by mouth 2 times a day as needed for Congestion. Take with plenty of water. Do not cut, crush or chew 40 Tablet 0 10/13/2022 Active methylPREDNISolone 4 MG Oral Tablet Therapy Pack (Medrol Dosepack)Indication s:COPD exacerbation ([facility]) follow package directions 21 Tablet 0 10/13/2022 [...] Atherosclerosis of coronary artery bypass graft of [place] heart with angina pectoris 10/13/2022 Encounter for [...] urinary tr act symptoms 07/13/2001 Atherosclerosis of [place] co ronary artery of [place] heart without angina pectoris Morbid obesity with [...] use aero chamber. Test performed by Dori OPERATIONS BOARDMAN CPFT Body mass index (BMI) of 45.0 [...] MANAGEMENT 07/22/2008 0 Overview: Kianna Lyn RN [phone] Examination following surgery 07/11/2008 Difficult intubation 07/10/2008 02/19/2020 Overview: Patient seen and examined in OR#1.Possible difficult intubation.TM distance about 5 cms.MP 3-4. Will plan FOB electively Due to current situation. EXAMINATION OF PARTICIPANT IN CLINICAL TRIAL-gen omics 07/04/2008 05/30/2009 Overview: Renamed Per Clinical Trials Billing Project. Study Titile: Genomic Markers for Patients with Cardiovascular Disease Project #[id number] PI: Miriam Roque MD Please call [phone] with study related questions Chronic coronary artery [...] at goal 07/04/2008 9 GENOMICS CARDIO RESEARCH OTHER*[id number] 200803/23/2016 Overview: Renamed Per Clinical Trials Billing Project. Study Titile: Genomic Markers for Patients with Cardiovascular Disease Project #[id number] PI: Miriam Roque MD Please call [phone] with study related questions Kidney disease, chronic, [...] PA-C [address] [facility] [place] [address] 11/17/2022 Office Visit [address] [place] [address] 11/30/2022 Office Visit Urology Denny Armando MD [address] [address] [place] [address] 12/15/2022 Office Visit Family Medicine Nicola Prado MD [address] [place] [address] [place] [address] 12/20/2022 Office Visit Dermatology Meron Aragon PA-C [address] [place] [address] [place] [address] 01/28/2023 Office Visit Nephrology Verito Jovel PA-C [address] [facility] [place] [address] 03/04/2023 Office Visit Gastroenterology Marielena Hall CRNP [address] [place] [address] 03/29/2023 Office Visit Cardiology Blair Hannah PA-C [address] [place] [address] 06/02/2023 Nurse Only Ancillary Nurse Neeraj Annual [address] [place] [address] 10/12/2023 Office Visit Sleep Disorders Eulalia Milligan DO [address] [place] [address] 10/25/2023 Cardiac Studies Cardiology [facility] [address] [place] [address] Pending Results Name Type Priority Associated Diagnoses Date /Time BASIC METABOLIC PANEL Lab Routine Stage 3b chronic kidney disease (HCC) Hyperuricemia History of acute renal failure 10/26/2022 11:14 AM EDT URIC ACID Lab Routine Stage 3b chronic kidney disease (HCC) 10/26/2022 11:14 AM EDT CBC WITH WBC DIFFERENTIAL AND ANEMIA REFLEX WORKUP Lab Routine Fatigue, unspecified type 10/26/2022 11:14 AM EDT TSH WITH FREE T4 IF INDICATED Lab Routine Fatigue, unspecified type 10/26/2022 11:14 AM EDT ANEMIA CBC Lab Routine Fatigue, unspecified type 10/26/2022 11:14 AM EDT DIFFERENTIAL, AUTOMATED Lab Routine Fatigue, unspecified type 10/26/2022 11:14 AM EDT ANEMIA REFLEX CHEMISTRY HOLD Lab Routine Fatigue, unspecified type 10/26/2022 11:14 AM EDT Scheduled Procedures Name Priority Associated [...] this encounter Medical Devices Implanted Type Area Bonding Machine Operator Device Identifier Shelf Expiration Date Model / Serial / Lot Sut Steel 6 [id number] - [id number] Implanted:Qty: 6 on 07/10/2008 at [place] [facility] N/A: Chest DO NOT USE 08/14/2012 [id number] / / [id number] documented as of this encounter Visit Diagnoses Diagnosis Iron deficiency anemia Iron deficiency anemia, unspecified Stage 3b chronic kidney disease (HCC) Hyperuricemia Other abnormal blood chemistry History of acute renal failure Personal history of other disorder of urinary system Fatigue, unspecified type documented in this encounter Advance Directives Documents on File Type Date Recorded Patient Sap Security Architect Expl anation Power of Mechanic General Operational Test 06/26/2019 POWER OF A TTORNEY Advance Directives [...] patient have Health Care Power of Mechanic General Operational Test? No Code Status History Code Status Date [...] or by statute hierarchy) Care Teams Boat Master Relationship Specialty Start Date End Date Nicola Prado MD [address] [place] [address] [place] [address] PCP - General Family Medicine 06/19/21 documented as of this encounter
--- OUTSIDE RECORDS SUMMARY | 2023-02-03 20:30 | External Medical Summary ---
Author Name Unknown Address Unknown Organization K01:[facility] [place] [address] [place] [address] Laboratory Report Ordering Provider Test Date Status DIANA PONCE 10/26/2022 11:14:14 Final Observation Date Value Abnormality Reference (Units ) Status Uric Acid 10/26/2022 11:14:14 5.6 3.4-7.0 (m g/dL) Final Performing Location LABORATORY C - [address] [place] [address]
--- OUTSIDE RECORDS SUMMARY | 2023-02-03 20:30 | External Medical Summary ---
Author Name Unknown Address Unknown Organization K01:LABORATORY [facility] [place] - [address] [place] [address] Laboratory Report Ordering Provider Test Date Status BENJAMIN CREWS 10/26/2022 11:14:14 Final Observation Date Value Abnormality Reference (Units ) Status Folic Acid 10/26/2022 11:14:14 >20.0 >4.5 (ng/ mL) Final Performing Location LABORATORY C - [address] [place] [address]
--- OUTSIDE RECORDS SUMMARY | 2023-02-03 20:30 | External Medical Summary ---
Author Name Unknown Address Unknown Organization K01:[facility]ATORY [facility] [place] [facility] [address] [facility] [address] Laboratory Report Ordering Provider Test Date Status BENJAMIN CREWS 10/26/2022 11:14:14 Final Observation Date Value Abnormality Reference (Units ) Status TSH 10/26/2022 11:14:14 1.30 0.27-4.20 (uIU/mL) Final Performing Location [facility] [address] [facility] [address]
--- OUTSIDE RECORDS SUMMARY | 2023-02-03 20:30 | External Medical Summary | Summary of Care ---
Author Name Unknown Organization [facility] Address [address] [place] [address] Phone [phone] Care Team Providers Care Mental Tester Name Role Phone Nicola Prado MD Primary Care Provide r Reason for Visit * Reason Comments Acute Encounter Details Date Type Department Care Team Description 10/26/2022 Office Visit Family Medicine [address] [place] [address] Alissa Drew PA-C [address] [place] [address] [place] [address] Fatigue, unspecified type* Allergies Active Allergy Reactions Severity [...] Tablet 1 05/05/2022 Active Easy Touch Pen [place] 31G X 8 MM (Insulin Pen Needle)Indications :Type 2 diabetes mellitus with hemoglobin A1c goal of less than 8.0% ([facility]),Type 2 diabetes mellitus with stage 4 chronic kidney disease, unspecified whether termite technician insulin use ([facility]) Use up to six times daily with insulin. DXe11.9 600 Each 3 05/22/2022 Active Albuterol Sulfate HFA 108 (90 Base) MCG/ACT Inhalation Aerosol SolutionIndication s:COPD exacerbation ([facility]),Chronic cough Inhale by [...] skin daily. 90 mL 3 10/25/2022 Active Azithromycin 250 MG Oral Tablet (Zithromax Z-Kei)Indications: COPD exacerbation (HCC) Take two tablets by mouth on first day, then 1 tablet daily until gone 6 Tablet 0 10/13/2022 3 Discontinue d(Patient preference/ [...] of coronary artery bypass graft of [place] heart with angina pectoris 10/13/2022 Encounter for [...] urinary tr act symptoms 07/13/2001 Atherosclerosis of [place] co ronary artery of [place] heart without angina pectoris Morbid obesity with [...] use aero chamber. Test performed by Dori PRECISION LENS GENERATOR CPFT Body mass index (BMI) of 45.0 [...] MANAGEMENT 07/22/2008 0 Overview: Kianna Lyn RN [phone] Examination following surgery 07/11/2008 Difficult intubation 07/10/2008 02/19/2020 Overview: Patient seen and examined in OR#1.Possible difficult intubation.TM distance about 5 cms.MP 3-4. Will plan FOB electively Due to current situation. EXAMINATION OF PARTICIPANT IN CLINICAL TRIAL-gen omics 07/04/2008 05/30/2009 Overview: Renamed Per Clinical Trials Billing Project. Study Titile: Genomic Markers for Patients with Cardiovascular Disease Project #[id number] PI: Miriam Roque MD Please call [phone] with study related questions Chronic coronary artery [...] at goal 07/04/2008 9 GENOMICS CARDIO RESEARCH OTHER*[id number] 200803/23/2016 Overview: Renamed Per Clinical Trials Billing Project. Study Titile: Genomic Markers for Patients with Cardiovascular Disease Project #[id number] PI: Miriam Roque MD Please call [phone] with study related questions Kidney disease, chronic, [...] mRNA, LNP-s, No Pre serve, 2-Dose Series (Lettuce) 12/09/2020,05/09/2020,04/11/2020 COVID-19, LNP-s, No Preserve , Juan [...] Sign Reading Time Taken Comments Blood Pressure 130/70 10/26/2022 10:53 AM EDT Pulse 76 10/26/2022 10:53 AM EDT Temperature 35.6 C (96 F) 10/26/2022 10:53 AM EDT Respiratory Rate 18 10/26/2022 10:53 AM EDT Oxygen Saturation - - Inhaled Oxygen Concentration - - Weight 115.2 kg (254 lb) 10/26/2022 10:53 AM EDT Height 162.6 cm (5' 4") 10/26/2022 10:53 AM EDT Body Mass Index 43.6 10/26/2022 10:53 AM EDT documented in this encounter Progress Notes * Alissa Drew PA-C - 10/26/2022 10:58 AM EDT Nursing Notes: Lisha Parrish RN 10/26/22 1057 Sign at exiting of workspace Saw Dr Prado on 10/13/22 Not feeling well, feels very run down , has a cold sore on his lip sugars were running 400-500, doing better now. Today it was 190 Pt here today with fatigue, no energy. Pt was seen last week and given zpack for cough. The cough did clear. He does have a cold sore. This is improving. Pt denies fever, chills, nausea, vomiting, diarrhea, chest pain, SOB, URI sx, allergy/sinus sx. He doesn't have any urinary sx out of the ordinary. Pt isn't sleeping well. He is having issues with his CPAP. He is seeing sleep med and they are trying to fix the issue. Pt is eating and drinking ok. Pt denies abdominal pain. Sugars were high whenhe was taking the medrol dose pack. He did stop this and they came back down. No dizziness or lightheadedness. Has some mild headaches. Has cardiology appt in 2 days. Sees nephrology and sleep med. Al so sees urology, nephrology, derm, GI. Just had pacer check and was ok. Review of patient's allergies indicates: Allergen Reactions [...] minutes 25 Tablet 1 Easy Touch Pen [place] 31G X 8 MM (Insulin Pen Needle) [...] cut, crush or chew 40 Tablet 0 methylPREDNISolone 4 MG Oral Tablet Therapy Pack (Medrol Dosepack) follow package directions 21 Tablet 0 Tresiba FlexTouch 200 UNIT/ML Subcutaneous Solution Pen-injector (Insulin Degludec) Inject 100 Units under the skin daily. 90 mL 3 Current Facility-Administered Medications Medication Dose Route [...] fraction (HCC) Acute blood loss anemia 10/29/2020 [facility] transfused Acute exacerbation of chronic obstructive pulmonary disease (COPD) (HCC) 05/11/2018 [facility] Altered mental status 03/31/2017 likely the baclofen Atrioventricular block, Mobitz type 1, Erv[place]ckebach 06/09/2020 barretts stomach gastritis, stubbs's esophagus, recommend [...] cuff CKD (chronic kidney disease), stage IV ([facility]) GFR 26.5 COPD, mild ([facility]) 08/21/2010 COPD, moderate ([facility]) 10/04/2014 PFT Coronary atherosclerosis of [place] coronary artery 07/04/2008 Admitted [facility] COVID-19 02/24/2021 Dermatophytosis of scalp or bello DM type 2 causing CKD stage 4 ([facility]) DM type 2, goal A1c [...] disease, chronic, stage III (GFR 30-59 ml/min) ([facility]) 06/2008 Malignant neoplasm of prostate ([facility]) Prostate Mixed dyslipidemia Morbid obesity with BMI of 45.0-49.9, adult ([facility]) Other psoriasis S/P primary angioplasty with coronary stent 09/05/2013 drug eluting stents to 60% RCA, other grafts open except SVG to PDA is occluded Sleep apnea CPAP Sleep apnea, obstructive Symptomatic anemia 10/29/2020 Admitted [facility] and transfused TIA (transient ischemic attack) 02/04/2016 [facility] Tubular adenoma 10/31/2020 Social History Socioeconomic History Marital status: Spouse name: Cathryn Number of children: 2 Years of education: Not on file Highest education level: Not on file Occupational History 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 Passed 11/2021 from dementia Social [...] Housing Stability: Not on file O:Blood pressure 130/70, pulse 76, temperature 35.6 C (96 F), resp. rate 18, height 1.626 m (5'4"), weight 115.2 kg (254 lb). GENERAL: alert, healthy, and no distress NECK: supple, no adenopathy EYES: PERRLA, conjunctiva are pink and non-injected, sclera clear HEART: regular rate & rhythm, no murmur, and no gallops LUNGS: chest symmetric with normal AP diameter, no chest deformities noted, no chest wall tenderness, lungs clear to auscultation A:Fatigue, unspecified type (Primary) - CBC WITH WBC DIFFERENTIAL AND ANEMIA REFLEX WORKUP; Future; Expected date: 10/26/2022 - BASIC METABOLIC PANEL; Future; Expected date: 10/26/2022 - TSH WITH FREE T4 IF INDICATED; Future; Expected date: 10/26/2022 Will check some labs. Keep cardio appt in 2 days. Keep in contact with sleep med about CPAP. Any questions/problems, please call. If anything changes, worsens, develops new sx, please call NERY. Follow Up: Return if symptoms worsen or fail to improve. Alissa Drew PA-C documented in this encounter Nursing Notes * Lisha Parrish RN - 10/26/2022 10:[address] Prado on 10/13/22 Not feeling well, feels very run down , has a cold sore on his lip sugars were running 400-500, doing better now. Today it was 190 documented in this encounter Plan of Treatment Upcoming Encounters Date Type Specialty Care Team Description 10/28/2022 Office Visit Cardiology Nevaeh Linda PA-C [facility] [place] [address] 11/17/2022 Office Visit [address] [place] [address] 11/30/2022 Office Visit Urology Denny Armando MD [address] [place] [address] [place] [address] 12/15/2022 Office Visit Family Medicine Nicola Prado MD [address] [place] [address] [place] [address] 12/20/2022 Office Visit Dermatology Meron Aragon PA-C [address] [place] [address] [place] [address] 01/28/2023 [facility] [address] 03/04/2023 Office Visit Gastroenterology Marielena Hall CRNP [address] [place] [address] 03/29/2023 Office Visit Cardiology Blair Hannah PA-C [address] [place] [address] 06/02/2023 Nurse Only Ancillary Neeraj, Nurse [facility] [address] [place] [address] [place] [address] 10/12/2023 Office Visit Sleep Disorders Eulalia Milligan DO [address] [place] [address] 10/25/2023 Cardiac Studies Cardiology [facility] [address] [place] [address] Pending Results Name Type Priority Associated Diagnoses Date /Time CBC WITH WBC DIFFERENTIAL AND ANEMIA REFLEX WORKUP Lab Routine Fatigue, unspecified type 10/26/2022 11:14 AM EDT TSH WITH FREE T4 IF INDICATED Lab Routine Fatigue, unspecified type 10/26/2022 11:14 AM EDT Scheduled Orders Name Type Priority Associated Diagnoses Orde r Schedule CBC WITH WBC DIFFERENTIAL AND ANEMIA REFLEX WORKUP Lab Routine Fatigue, unspecified type Expected: 10/26/2022 (Approximate), Expires: 10/27/2023 TSH WITH FREE T4 IF INDICATED Lab Routine Fatigue, unspecified type Expected: 10/26/2022 (Approximate), Expires: 10/26/2023 Scheduled Procedures Name Priority Associated Diagnoses Date/Ti [...] this encounter Medical Devices Implanted Type Area Chief Orthoptist Device Identifier Shelf Expiration Date Model / Serial / Lot Sut Steel 6 [id number] - [id number] Implanted:Qty: 6 on 07/10/2008 at [place] [facility] N/A: Chest DO NOT USE 08/14/2012 [id number] / / [id number] documented as of this encounter Visit Diagnoses Diagnosis Fatigue, unspecified type- Primary documented in this encounter Advance Directives Documents on File Type Date Recorded Patient Welding Supervisor Expl anation Power of Fashion Marketer 06/26/2019 POWER OF A TTORNEY Advance Directives [...] the patient have Health Care Power of Fashion Marketer? No Code Status History Code Status Date [...] patient or by statute hierarchy) Care Teams Mental Tester Relationship Specialty Start Date End Date Nicola Prado MD [address] [place] [address] [place] [address] PCP - General Family Medicine 06/19/21 documented as of this encounter
--- OUTSIDE RECORDS SUMMARY | 2023-02-03 20:30 | External Medical Summary ---
Author Name Unknown Address Unknown Organization [id number]:[place] [facility] [place] [address] [place] [id number] Laboratory Report Ordering Provider Test Date Status BENJAMIN CREWS 10/26/2022 11:14:14 Final Observation Date Value Abnormality Reference (Units ) Status Vitamin B12 10/26/2022 11:14:14 [phone] (pg/mL) Final Performing Location LABORATORY [facility] - [address] [place] [id number]
--- OUTSIDE RECORDS SUMMARY | 2023-02-03 20:30 | External Medical Summary | Summary of Care ---
Author Name Unknown Organization [facility] Address [address] [place] [address] Phone [phone] Care Team Providers Care Regulatory Agency Director Name Role Phone Nicola Menard MD Primary Care Provide r Reason for Visit * Reason Comments eRx-Medication Refill Encounter Details Date Type Department Care Team Description 10/24/2022 Refill Pharmacy, [address] [place] [address] Nicola Menard MD [address] [place] [address] [place] [address] Type 2 diabetes mellitus with hemoglobin A1c goal of less than 8.0% ([facility]) Allergies Active Allergy Reactions Severity [...] goal of less than 8.0% ([facility]) Test blood sugar up to five times daily; dx E11.9 450 Each 3 12/17/2021 Active OneTouch Ultra In Vitro Strip (Glucose Blood)Indications :Type 2 diabetes mellitus with hemoglobin A1c goal of less than 8.0% ([facility]) 3-4 times a day 450 Strip 3 12/17/2021 Active Xiidra 5 % Ophthalmic Solution instill 1 drop by ophthalmic route 2 times every day into both eyes. OK for 90 day supply. 0 01/05/2022 Active NovoLOG FlexPen 100 UNIT/ML Subcutaneous Solution Pen-injector (insulin aspart)Indication s:Type 2 diabetes mellitus with hemoglobin A1c goal of less than 8.0% ([facility]) 12 units with breakfast and [...] Tablet 1 05/05/2022 Active Easy Touch Pen [place] 31G X 8 MM (Insulin Pen Needle)Indication s:Type 2 diabetes mellitus with hemoglobin A1c goal of less than 8.0% ([facility]),Type 2 diabetes mellitus with stage 4 chronic kidney disease, unspecified whether fdc insulin use ([facility]) Use up to six times daily with insulin. DXe11.9 600 Each 3 05/22/2022 Active Albuterol Sulfate HFA 108 (90 Base) MCG/ACT Inhalation Aerosol SolutionIndicatio ns:COPD exacerbation ([facility]),Chronic cough Inhale by mouth 2 Puffs every 4 hours as needed for Cough or Shortness of Breath. 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 Will plan FOB electively Due to current situation. EXAMINATION OF PARTICIPANT IN CLINICAL TRIAL-gen omics 07/04/2008 05/30/2009 Overview: Renamed Per Clinical Trials Billing Project. Study Titile: Genomic Markers for Patients with Cardiovascular Disease Project #[id number] PI: Miriam Roque MD Please call [phone] with study related questions Chronic coronary artery [...] at goal 07/04/2008 9 GENOMICS CARDIO RESEARCH OTHER*[id number] 200803/23/2016 Overview: Renamed Per Clinical Trials Billing Project. Study Titile: Genomic Markers for Patients with Cardiovascular Disease Project #[id number] PI: Miriam Roque MD Please call [phone] with study related questions Kidney disease, chronic, [...] encounter Miscellaneous Notes * Telephone Encounter - Tricia Alvarez RPh - 10/25/2022 8:20 AM EDT Signed Prescriptions: Disp Refills Tresiba FlexTouch 200 UNIT/ML Subcutaneous*90 mL 3 Sig: Inject 100 Units under the skin daily.Authorizing Provider: Luis MENARD User: TRICIA ALVAREZ documented in this encounter Plan of Treatment Upcoming Encounters Date Type Specialty Care Team Description 10/28/2022 Office Visit Cardiology Nevaeh Linda PA-C [address] [place] [address] 11/17/2022 Office Visit Pharmacy [address] [place] [address] 11/30/2022 Office Visit Urology Denny Armando MD [address] [place] [address] [place] [address] 12/15/2022 Office Visit Family Medicine Nicola Menard MD [address] [place] [address] [place] [address] 12/20/2022 Office Visit Dermatology Meron Aragon PA-C [address] [place] [address] [place] [address] 01/28/2023 [facility] [address] 03/04/2023 Office Visit Gastroenterology Marielena Hall CRNP [address] [place] [address] 03/29/2023 Office Visit Cardiology Blair Hannah PA-C [address] [place] [address] 06/02/2023 Nurse Only Ancillary Nurse Neeraj [facility] [address] [place] [address] [place] [address] 10/12/2023 Office Visit Sleep Disorders Eulalia Milligan DO [address] [place] [address] 10/25/2023 Cardiac Studies Cardiology Keith Pickard [address] [place] [address] Scheduled Procedures Name Priority Associated Diagnoses Date/Ti [...] COMPLETED IN PAST YEAR FOR COPD 10/23/2022 10/23/2021 HbA1c 04/08/2023 10/06/2022, 03/0 10/2022, 10/22/2021, Additional [...] this encounter Medical Devices Implanted Type Area Guest House Manager Device Identifier Shelf Expiration Date Model / Serial / Lot Sut [place] 6 [id number] - [id number] Implanted:Qty: 6 on 07/10/2008 at OR [facility] [place] N/A: Chest DO NOT USE 08/14/2012 [id number] / / [id number] documented as of this encounter Visit Diagnoses Diagnosis Type 2 diabetes mellitus with hemoglobin A1c goal of less than 8.0% (HCC) documented in this encounter Advance Directives Documents on File Type Date Recorded Patient Lead Php Developer Expl anation Power of Crew Boss 06/26/2019 POWER OF A TTORNEY Advance [...] the patient have Health Care Power of Crew Boss? No Code Status History Code Status [...] patient or by statute hierarchy) Care Teams Regulatory Agency Director Relationship Specialty Start Date End Date Nicola Menard MD [address] [place] [address] [place] [address] PCP - General Family Medicine 06/19/21 documented as of this encounter
--- OUTSIDE RECORDS SUMMARY | 2023-02-03 20:30 | External Medical Summary | Summary of Care ---
Author Name Unknown Organization [facility] Address [address] [place] [address] Phone [phone] Care Team Providers Care Engineer Intern Name Role Phone Nicola Prado MD Primary Care Provide r Reason for Visit * Reason Onset Date Comments Appointment 10/28/2022 nuc Encounter Details Date Type Department Care Team Description 10/28/2022 Telephone Cardiology Lauren Borges [address] [place] [address] Nevaeh Linda PA-C [address] [place] [id number] Appointment (nuc) Allergies Active Allergy Reactions Severity Noted Date [...] Tablet 1 05/05/2022 Active Easy Touch Pen [place] 31G X 8 MM (Insulin Pen Needle)Indications: Type 2 diabetes mellitus with hemoglobin A1c goal of less than 8.0% ([facility]),Type 2 diabetes mellitus with stage 4 chronic kidney disease, 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 Test performed by Dori TIME LOCK EXPERT CPFT Body mass index (BMI) of 45.0 [...] MANAGEMENT 07/22/2008 0 Overview: Kianna Lyn RN [phone] Examination following surgery 07/11/2008 Difficult intubation 07/10/2008 02/19/2020 Overview: Patient seen and examined in OR#1.Possible difficult intubation.TM distance about 5 cms.MP 3-4. Will plan FOB electively Due to current situation. EXAMINATION OF PARTICIPANT IN CLINICAL TRIAL-gen omics 07/04/2008 05/30/2009 Overview: Renamed Per Clinical Trials Billing Project. Study Titile: Genomic Markers for Patients with Cardiovascular Disease Project #[id number] PI: Miriam Roque MD Please call [phone] with study related questions Chronic coronary artery [...] at goal 07/04/2008 9 GENOMICS CARDIO RESEARCH OTHER*[id number] 200803/23/2016 Overview: Renamed Per Clinical Trials Billing Project. Study Titile: Genomic Markers for Patients with Cardiovascular Disease Project #[id number] PI: Miriam Roque MD Please call [phone] with study related questions Kidney disease, chronic, [...] * Telephone Encounter - KATHE Crawley - 10/28/2022 1:48 PM EDT Please assist with nuc test. Pt's cardio f/u is 12/13/22. Thank you. documented in this encounter Plan of Treatment Upcoming Encounters Date Type Specialty Care Team Description 10/28/2022 Office Visit Cardiology Nevaeh Linda PA-C [address] [place] [address] Chest pain, unspecified type*; Coronary artery disease involving [place] coronary artery of [place] heart without angina pectoris; Cardiac pacemaker in situ; Dyslipidemia, goal LDL below 70; CHB (complete heart block) (HCC); Need for prophylactic vaccination and inoculation against influenza 11/17/2022 Office Visit [address] [place] [address] 11/30/2022 Office Visit Urology Denny Armando MD [address] [place] [address] [place] [address] 12/13/2022 Office Visit Cardiology Nevaeh Linda PA-C [address] [place] [address] 12/15/2022 Office Visit Family Medicine Nicola Prado MD [address] [place] [address] [place] [address] 12/20/2022 Office Visit Dermatology Meron Aragon PA-C [address] [place] [address] [place] [address] 01/28/2023 Office Visit Nephrology eVrito [facility]vel [facility]C [address] [facility] [address] 03/04/2023 Office Visit Gastroenterology Marielena Hall CRNP [address] [place] [address] 03/29/2023 Office Visit Cardiology Blair Hannah PA-C [address] [place] [address] 06/02/2023 Nurse Only Ancillary Nurse Neeraj [facility] [address] [place] [address] [place] [address] 10/12/2023 Office Visit Sleep Disorders Eulalia Milligan DO [address] [place] [address] 10/25/2023 Cardiac Studies Cardiology Keith Pickard [facility] [address] [place] [address] Scheduled Procedures Name Priority Associated Diagnoses Date/Ti [...] this encounter Medical Devices Implanted Type Area Labeler Device Identifier Shelf Expiration Date Model / Serial / Lot Sut Steel 6 [id number] - [id number] Implanted:Qty: 6 on 07/10/2008 at [place] [facility] [place] N/A: Chest DO NOT USE 08/14/2012 [id number] / / [id number] documented as of this encounter Advance Directives Documents on File Type Date Recorded Patient Citizenship Instructor Expl anation Power of Permit Specialist 06/26/2019 POWER OF A TTORNEY Advance [...] the patient have Health Care Power of Permit Specialist? No Code Status History Code Status [...] or by statute hierarchy) Care Teams Engineer Intern Relationship Specialty Start Date End Date Nicola Prado MD [address] [place] [address] [place] [address] PCP - General Family Medicine 06/19/21 documented as of this encounter
--- OUTSIDE RECORDS SUMMARY | 2023-02-03 20:31 | External Medical Summary | Summary of Care ---
Author Name Unknown Organization [facility] Address [address] [place] [address] Phone [phone] Care Team Providers Care Plush Cutter Name Role Phone Nicola Prado MD Primary Care Provide r Reason for Visit * Reason Comments Pacemaker Clinic Encounter Details Date Type Department Care Team Description 10/22/2022 Cardiac Studies Cardiology, [facility] [address] [place] [address] [place], [facility] [address] [place] [address] Atrioventricular block, Mobitz type 1, Wenckebach*; Chronic diastolic heart failure (HCC); CHB (complete heart block) (HCC); Cardiac pacemaker in situ; Mobitz type 2 second degree AV block Allergies Active Allergy Reactions Severity Noted Date Comments Hydromorphone High 09/20/2021 Other reaction(s): Nausea Other reaction(s): Nausea 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/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 Other reaction(s): AMS Other reaction(s): AMS Prasugrel 04/02/2016 bleeding Prednisone High 09/20/2021 Other reaction(s): INCREASE BLOOD SUGAR Other reaction(s): INCREASE BLOOD SUGAR documented as of this encounter (statuses as of 10/22/2022) Medications Medication Sig Dispensed Refills Start Date [...] 140 mg/dL 110 mL 3 03/23/2022 Active Tresiba FlexTouch 200 UNIT/ML Subcutaneous Solution Pen-injector (Insulin Degludec)Indication s:Type 2 diabetes mellitus with hemoglobin A1c goal of less than 8.0% (HCC) Inject 110 Units under the skin in the morning. 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 DXe11.9 600 Each 3 05/22/2022 Active Albuterol Sulfate HFA 108 (90 Base) MCG/ACT Inhalation Aerosol SolutionIndications :COPD exacerbation ([facility]),Chronic cough Inhale by mouth 2 Puffs every 4 hours as needed for Cough or Shortness of Breath. Reports doesn't help 18 g 2 05/27/2022 Active Victoza 18 MG/3ML Subcutaneous Solution Pen-injector (Liraglutide)Indica tions:Type 2 diabetes mellitus with hemoglobin A1c goal of less than 8.0% ([facility]),Type 2 diabetes mellitus with stage 4 chronic kidney disease, with long-term current use of insulin ([facility]) Inject 1.8 mg under the skin daily. 27 mL 3 07/23/2022 Active Furosemide 80 MG Oral Tablet (Lasix) Take 1 Tablet by mouth in the morning. 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 Take with plenty of water. Do not cut, crush or chew 40 Tablet 0 10/13/2022 Active methylPREDNISolone 4 MG Oral Tablet Therapy Pack (Medrol Dosepack)Indication s:COPD exacerbation ([facility]) follow package directions 21 Tablet 0 10/13/2022 Active Hospital, Clinic, or [...] as of this encounter (statuses as of 10/22/2022) Active Problems Problem Noted Date Atherosclerosis of coronary artery bypass graft of [place] heart with angina pectoris 10/13/2022 Encounter for [...] urinary tr act symptoms 07/13/2001 Atherosclerosis of [place] co ronary artery of [place] heart without angina pectoris Morbid obesity with BMI of 40.0-44.9, ad ult documented as of this encounter (statuses as of 10/22/2022) Resolved Problems Problem Noted Date Resolved Date [...] 07/22/2008 0 Overview: Kianna Lyn, RN [phone] Examination following surgery 07/11/2008 Difficult intubation 07/10/2008 02/19/2020 Overview: Patient seen and examined in OR#1.Possible difficult intubation.TM distance about 5 cms.MP 3-4. Will plan FOB electively Due to current situation. EXAMINATION OF PARTICIPANT IN CLINICAL TRIAL-gen omics 07/04/2008 05/30/2009 Overview: Renamed Per Clinical Trials Billing Project. Study Titile: Genomic Markers for Patients with Cardiovascular Disease Project #[id number] PI: Miriam Roque MD Please call [phone] with study related questions Chronic coronary artery [...] at goal 07/04/2008 9 GENOMICS CARDIO RESEARCH OTHER*[id number] 200803/23/2016 Overview: Renamed Per Clinical Trials Billing Project. Study Titile: Genomic Markers for Patients with Cardiovascular Disease Project #[id number] PI: Miriam Roque MD Please call [phone] with study related questions Kidney disease, chronic, [...] as of this encounter (statuses as of 10/22/2022) Immunizations Name Administration Dates Next Due COVID-19 [...] as of this encounter Progress Notes * Angelita Gaona RN - 10/22/2022 3:36 PM EDT Patient and implanted device were evaluated today in the [facility]. Providers please see scanned report in the Scans tab. Angelita Gaona RN documented in this encounter Nursing Notes * Priya Horton RN - 10/22/2022 1:19 PM EDT Patient and implanted device were evaluated today in the [facility]. Providers please see scanned report in the Scans tab. Changed mode from MVP to DDDR. Short walk through hallway performed to check response to activity; HR appropriate. Patient may benefit from updated echo; to be discussed at upcoming evaluation 10/28/2022. Tech: Tressa Mg documented in this encounter Plan of Treatment Upcoming Encounters Date Type Specialty Care Team Description 10/28/2022 Office Visit Cardiology Maddi, Nevaeh Hadley PA-C [address] [place] [address] [place] [address] 11/17/2022 Office Visit [address] [place] [address] 11/30/2022 Office Visit Urology Denny Armando MD [address] [place] [address] [place] [address] 12/15/2022 Office Visit Family Medicine Nicola Prado MD [address] [place] [address] [place] [address] 12/20/2022 Office Visit Dermatology Meron Aragon PA-C [address] [place] [address] [place] [address] 01/28/2023 Office Visit Nephrology FernandomaVerito paiz PA-C [address] [facility] [address] 03/04/2023 Office Visit Gastroenterology Marielena Hall CRNP [address] [place] [address] 03/29/2023 Office Visit Cardiology Blair Hannah PA-C [address] [place] [address] 06/02/2023 Nurse Only Ancillary Nurse Neeraj [facility] [address] [place] [address] [place] [address] 10/12/2023 Office Visit Sleep Disorders Eulalia Milligan DO [address] [place] [address] 10/25/2023 Cardiac Studies [facility]iology [facility] [address] [place] [address] Scheduled Orders Name Type Priority Associated Diagnoses Orde r Schedule DUAL-LEAD PACEMAKER + REPROGRAM Procedures Routine Atrioventricular block, Mobitz type 1, Wenckebach Chronic diastolic heart failure (HCC) CHB (complete heart block) (HCC) Cardiac pacemaker in situ Ordered: 10/22/2022 Scheduled Procedures Name Priority Associated Diagnoses Date/Ti [...] 10/22/2021, Additional history exists GFR 04/13/2023 10/11/2022, 08/2 02/2022, 09/09/2022, Additional history exists Albumin/Creatinine Ratio 04/23/2023 [...] this encounter Medical Devices Implanted Type Area Conductor Freight Device Identifier Shelf Expiration Date Model / Serial / Lot Sut Steel 6 [id number] - [id number] Implanted:Qty: 6 on 07/10/2008 at [place] [facility] [place]A: Chest DO NOT USE 08/14/2012 [id number] / / [id number] documented as of this encounter Visit Diagnoses Diagnosis Atrioventricular block, Mobitz type 1, Wenckebach- Primary Other second degree atrioventricular block Chronic diastolic heart failure (HCC) Chronic diastolic heart failure CHB (complete heart block) (HCC) Atrioventricular block, complete Cardiac 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 No Code Status History Code Status [...] patient or by statute hierarchy) Care Teams Plush Cutter Relationship Specialty Start Date End Date Nicola Prado MD [address] [place] [address] [place] [address] PCP - General Family Medicine 06/19/21 documented as of this encounter
--- OUTSIDE RECORDS SUMMARY | 2023-02-03 20:31 | External Medical Summary | Summary of Care ---
Author Name Unknown Organization [facility] Address [address] [place] [address] Phone [phone] Care Team Providers Care Radio Communications Superintendent Name Role Phone Nicola Prado MD Primary Care Provide r Reason for Visit * Reason Onset Date Comments Blood Sugar Problem 10/19/2022 Advice 10/19/2022 RED FLAG- blood sugar levels 400-500, new medication Encounter Details Date Type Department Care Team Description 10/19/2022 Telephone Pharmacy, El[facility] [place] [address] [place] [address] Blood Sugar Problem; Advice (RED FLAG- blo... Allergies Active Allergy Reactions Severity Noted Date Comments Hydromorphone High 09/20/2021 Other reaction(s): Nausea Other reaction(s): Nausea 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/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 Other reaction(s): AMS Other reaction(s): AMS Prasugrel 04/02/2016 bleeding Prednisone High 09/20/2021 Other reaction(s): INCREASE BLOOD SUGAR Other reaction(s): INCREASE BLOOD SUGAR documented as of this encounter (statuses as of 10/20/2022) Medications Medication Sig Dispensed Refills Start Date [...] than 8.0% ([facility]) 3-4 times a day 450 Strip 3 12/17/2021 Active Xiidra 5 % Ophthalmic Solution instill 1 drop by ophthalmic route 2 times every day into both eyes. OK for 90 day supply. 0 01/05/2022 Active NovoLOG FlexPen 100 UNIT/ML Subcutaneous Solution Pen-injector (insulin aspart)Indications: Type 2 diabetes mellitus with hemoglobin A1c goal of less than 8.0% ([facility]) 12 units with breakfast and supper PLUS correction factor of 1:25 if over 140 mg/dL 110 mL 3 03/23/2022 Active Tresiba FlexTouch 200 UNIT/ML Subcutaneous Solution Pen-injector (Insulin Degludec)Indication s:Type 2 diabetes mellitus with hemoglobin A1c goal of less than 8.0% ([facility]) Inject 110 Units under the [...] Tablet 1 05/05/2022 Active Easy Touch Pen [place] 31G X 8 MM (Insulin Pen Needle)Indications: Type 2 diabetes mellitus with hemoglobin A1c goal of less than 8.0% ([facility]),Type 2 diabetes mellitus with stage 4 chronic kidney disease, unspecified whether alf insulin use ([facility]) Use up to six times daily with insulin. DXe11.9 600 Each 3 05/22/2022 Active Albuterol Sulfate HFA 108 (90 Base) MCG/ACT Inhalation Aerosol SolutionIndications :COPD exacerbation ([facility]),Chronic cough Inhale by mouth 2 Puffs every 4 hours as needed for Cough or Shortness of Breath. Reports doesn't help 18 g 2 05/27/2022 Active Victoza 18 MG/3ML Subcutaneous Solution Pen-injector (Liraglutide)Indica tions:Type 2 diabetes mellitus with hemoglobin A1c goal of less than 8.0% ([facility]),Type 2 diabetes mellitus with stage 4 chronic kidney disease, with long-term current use of insulin ([facility]) Inject 1.8 mg under the skin daily. 27 mL 3 07/23/2022 Active Furosemide 80 MG Oral Tablet (Lasix) Take 1 Tablet by mouth in the morning. 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 Take with plenty of water. Do not cut, crush or chew 40 Tablet 0 10/13/2022 Active methylPREDNISolone 4 MG Oral Tablet Therapy Pack (Medrol Dosepack)Indication s:COPD exacerbation ([facility]) follow package directions 21 Tablet 0 [...] as of this encounter (statuses as of 10/20/2022) Active Problems Problem Noted Date Atherosclerosis of coronary artery bypass graft of [place] heart with angina pectoris 10/13/2022 Encounter for [...] tr act symptoms 07/13/2001 Atherosclerosis of [place] co ronary artery of [place] heart without angina pectoris Morbid obesity with BMI of 40.0-44.9, ad ult documented as of this encounter (statuses as of 10/20/2022) Resolved Problems Problem Noted Date Resolved Date [...] use aero chamber. Test performed by Dori SET UP OPERATOR CPFT Body mass index (BMI) of [...] TIA (transient ischemic attack) 02/04/2016 11/23/2017 Overview: [facility] Anemia of chronic renal failure 07/30/2015 01/27/2017 [...] MANAGEMENT 07/22/2008 0 Overview: Kianna Lyn RN [phone] Examination following surgery 07/11/2008 Difficult intubation 07/10/2008 02/19/2020 Overview: Patient seen and examined in OR#1.Possible difficult intubation.TM distance about 5 cms.MP 3-4. Will plan FOB electively Due to current situation. EXAMINATION OF PARTICIPANT IN CLINICAL TRIAL-gen omics 07/04/2008 05/30/2009 Overview: Renamed Per Clinical Trials Billing Project. Study Titile: Genomic Markers for Patients with Cardiovascular Disease Project #[id number] PI: Miriam Roque MD Please call [phone] with study related questions Chronic coronary artery [...] at goal 07/04/2008 9 GENOMICS CARDIO RESEARCH OTHER*[id number] 200803/23/2016 Overview: Renamed Per Clinical Trials Billing Project. Study Titile: Genomic Markers for Patients with Cardiovascular Disease Project #[id number] PI: Miriam Roque MD Please call [phone] with study related questions Kidney disease, chronic, [...] as of this encounter (statuses as of 10/20/2022) Immunizations Name Administration Dates Next Due COVID-19 [...] Telephone Encounter - Nicola Prado MD - 10/20/2022 12:16 PM EDT Spoke to pt - glucose has been improving since stopped prednisone - today AM glucose 140 - denied any fever - pt completed the zpak - SOB is better today per pt Plan: - since the SOB is improving will hold of reinitiating the medrol dose pack - recommended albuterol QID for the next 3 days - if symptoms reoccur then will consider iniating medrol dose pack with increased Tresiba units * Telephone Encounter - Karlene Alvarez [facility] - 10/19/2022 4:27 PM EDT Patient Phone Numbers Returned patient's call. Medrol Dosepack started on 10/13. Reports elevated BG from that point on > 400 despite large amounts of insulin. States he stopped taking on 10/15 due to this. Difficult to appropriately assess/adjust accordingly as patient often self- adjusts insulin doses. Did note that he has been forgetting PM Tresiba dose, which may also have been contributing to hyperglycemia. He has resumed Tresiba 100units once daily as opposed to BID to help with compliance. Instructed to continue at this time. Confirmed BG readings have returned to 200 this AM, 180 this afternoon. Remind- me placed to f/u with patient tomorrow. Routing to PCP as well as patient had been feeling much better on Medrol Dosepack. Karlene Alvarez RPh, PharmD Clinical Pharmacist - Content Checker Medication Therapy [facility] 10/19/2022, 4:34 PM Ph.[phone] * Telephone Encounter - KATHE Collado - 10/19/2022 4:16 PM EDT What is the reason for call? Blood sugar levels up to 400-500 after starting new med What Clinic is the patient trying to reach? [facility]- Choose Clinic: [facility] - CallType: Red Flag- route the telephone encounter as routine to obiee lead developer p [phone] Caller: patient Return Phone #: [phone] Call was routed "routine" to the [facility] nurse triage basket (p [phone]). * Telephone Encounter - HARLEY Ayala - 10/19/2022 9:42 AM EDT Caller's name: Maurisio Preferred call back number(OFFICE NUMBER FOR ): [phone] Reason for call: High blood sugar Pt started RX methylPREDNISolone 4 MG Oral Tablet Therapy Pack (Medrol Dosepack) , says he had to stop taking it due to sugar going up to 400-500s, requesting to speak to UTM Thank you, Rubin Adams CPhT Electrician Master [facility] Tele[facility] 10/19/2022,9:42 AM documented in this encounter Plan of Treatment Upcoming Encounters Date Type Specialty Care Team Description 10/22/2022 Cardiac Studies Cardiology Keith Pickard [facility] [address] [place] [address] 11/17/2022 Office Visit [address] [place] [address] 11/30/2022 Office Visit Urology Denny Armando MD [address] [place] [address] [place] [address] 12/15/2022 Office Visit Family Medicine Nicola Prado MD [address] [place] [address] [place] [address] 12/20/2022 Office Visit Dermatology Meron Aragon PA-C [address] [place] [address] [place] [address] 01/24/2023 Office Visit Rheumatology Ashley Mancilla PA-C 01/28/2023 Office Visit Nephrology [facility]vel [facility] [address] [facility] [address] 03/04/2023 Office Visit Gastroenterology Marielena Hall CRNP [address] [place] [address] 03/29/2023 Office Visit Cardiology Blair Hannah PA-C [address] [place] [address] 06/02/2023 Nurse Only Ancillary Nurse Neeraj [address] [place] [address] 10/12/2023 Office Visit Sleep Disorders Eulalia Milligan, DO [address] [place] [address] Scheduled Procedures Name Priority Associated Diagnoses Date/Ti [...] 023, 03/24/2022, 06/19/2021, Additional history exists Depression Screening, Annual for Pts 12 and Over 05/29/2023 05/28/2022 Diabetic Foot Exam 05/29/2023 05/28/2022, [...] this encounter Medical Devices Implanted Type Area Field Nurse Case Manager Device Identifier Shelf Expiration Date Model / Serial / Lot Sut Steel 6 [id number] - [id number] Im[place]ed:Q[place]: 6 on 07[place]10/[place] [facility] [place]: Chest DO NOT USE 08/14/2012 [id number] / / [id number] documented as of this encounter Advance Directives Documents on File Type Date Recorded Patient Mortgage Loan Officer Originator Expl anation Power of Mission Systems Engineer 06/26/2019 POWER OF A TTORNEY [...] the patient have Health Care Power of Mission Systems Engineer? No Code Status History Code [...] patient or by statute hierarchy) Care Teams Radio Communications Superintendent Relationship Specialty Start Date End Date Nicola Prado MD [address] [place] [address] [place] [phone] PCP - General Family Medicine 06/19/21 documented as of this encounter
--- OUTSIDE RECORDS SUMMARY | 2023-02-03 20:31 | External Medical Summary | Summary of Care ---
Author Name Unknown Organization [facility] Address [address] [place] [address] Phone [phone] Care Team Providers Care Furniture Refinisher Name Role Phone Nicola Prado MD Primary Care Provide r Reason for Visit * Reason Onset Date Comments Advice 10/20/2022 Encounter Details Date Type Department Care Team Description 10/20/2022 Telephone Pulmonary Medicine, [facility] [address] [place] [address] Eulalia Milligan DO [address] [place] [address] Advice Allergies Active Allergy Reactions Severity Noted [...] A1c goal of less than 8.0% ([facility]) Test blood sugar up [...] Tablet 1 05/05/2022 Active Easy Touch Pen Lometa 31G X 8 MM (Insulin Pen Needle)Indications: [...] Aerosol SolutionIndications :COPD exacerbation (HCC),Chronic cough Inhale by mouth 2 Puffs every 4 hours as needed for Cough or Shortness of Breath. Reports doesn't help 18 g 2 05/27/2022 Active Victoza 18 MG/3ML Subcutaneous Solution Pen-injector (Liraglutide)Indica tions:Type 2 diabetes mellitus with hemoglobin A1c goal of less than 8.0% ([facility]),Type 2 diabetes mellitus with stage 4 chronic kidney disease, with long-term current use of insulin ([facility]) Inject 1.8 mg under the skin daily. 27 mL 3 07/23/2022 Active Furosemide 80 MG Oral Tablet (Lasix) Take 1 Tablet by mouth in the morning. 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 4 mL 1 08/04/2022 Active Octreotide Acetate 50 MCG/ML Injection Solution (Sandostatin) Inject 50mcg under the skin in the morning and the evening 180 mL 09/01/2022 Active BD TB Syringe 27G X [...] MG Oral Tablet (Zithromax Z-Kei)Indications:C OPD exacerbation ([facility]) Take two tablets by mouth on first day, then 1 tablet daily until gone 6 Tablet 0 10/13/2022 Active guaiFENesin ER 600 MG Oral Tablet Extended Release 12 Hour (Mucinex)Indication s:COPD exacerbation ([facility]) Take 1 Tablet by mouth 2 times a day as needed for Congestion. Take with plenty of water. Do not cut, crush or chew 40 Tablet 0 10/13/2022 Active methylPREDNISolone 4 MG Oral Tablet Therapy Pack (Medrol Dosepack)Indication s:COPD exacerbation ([facility]) follow package directions 21 [...] Atherosclerosis of coronary artery bypass graft of [place] heart with angina pectoris 10/13/2022 Encounter [...] urinary tr act symptoms 07/13/2001 Atherosclerosis of [place] co ronary artery of [place] heart without angina pectoris Morbid obesity [...] use aero chamber. Test performed by Dori DOVETAILER CPFT Body mass index (BMI) of 45.0 [...] MANAGEMENT 07/22/2008 0 Overview: Kianna Lyn RN [phone] Examination following surgery 07/11/2008 Difficult intubation 07/10/2008 02/19/2020 Overview: Patient seen and examined in OR#1.Possible difficult intubation.TM distance about 5 cms.MP 3-4. Will plan FOB electively Due to current situation. EXAMINATION OF PARTICIPANT IN CLINICAL TRIAL-gen omics 07/04/2008 05/30/2009 Overview: Renamed Per Clinical Trials Billing Project. Study Titile: Genomic Markers for Patients with Cardiovascular Disease Project #[id number] PI: Miriam Roque MD Please call [phone] with study related questions Chronic coronary artery [...] at goal 07/04/2008 9 GENOMICS CARDIO RESEARCH OTHER*[id number] 200803/23/2016 Overview: Renamed Per Clinical Trials Billing Project. Study Titile: Genomic Markers for Patients with Cardiovascular Disease Project #[id number] PI: Miriam Roque MD Please call [phone] with study related questions Kidney disease, chronic, [...] Miscellaneous Notes * Telephone Encounter - KATHE Bocanegra - 10/20/2022 2:06 PM EDT Pt is calling and [facility] Pt in [place] hasn't received the new pressure for pt's machine. Please advise. documented in this encounter Plan of Treatment Upcoming Encounters Date Type Specialty Care Team Description 10/22/2022 Cardiac Studies Cardiology Keith Pickard [address] [place] [address] 10/28/2022 Office Visit Cardiology Nevaeh Linda PA-C [address] [place], [place] [address] [address] 11/17/2022 Office Visit [address] [place] [address] 11/30/2022 Office Visit Urology Denny Armando MD [address] [address] [place] [address] 12/15/2022 Office Visit Family Medicine Nicola Prado MD [address] [place] [address] [place] [address] 12/20/2022 Office Visit Dermatology Meron Aragon PA-C [address] [place] [address] [place] [address] 01/24/2023 Office Visit Rheumatology Ashley Mancilla PA-C 01/28/2023 Office Visit Nephrology [facility] [address] [facility] [address] 03/04/2023 Office Visit Gastroenterology Marielena Hall CRNP [address] [place] [address] 03/29/2023 Office Visit Cardiology Blair Hannah PA-C [address] [place] [address] 06/02/2023 Nurse Only Ancillary Neeraj, Nurse Annual Wellness [address] [place] [address] [place] [address] 10/12/2023 Office Visit Sleep Disorders Eulalia Milligan DO [address] [place] [address] Scheduled Procedures Name Priority Associated Diagnoses Date/Ti [...] this encounter Medical Devices Implanted Type Area Bowl Turner Device Identifier Shelf Expiration Date Model / Serial / Lot Sut Steel 6 [id number] - [id number] Implanted:Qty: 6 on 07/10/2008 at OR [facility] N/A: Chest DO NOT USE 08/14/2012 [id number] / / [id number] documented as of this encounter Advance Directives Documents on File Type Date Recorded Patient Nailing Machine Operator Expl anation Power of Patient Services Technician 06/26/2019 POWER OF A TTORNEY Advance [...] the patient have Health Care Power of Patient Services Technician? No Code Status History Code Status [...] patient or by statute hierarchy) Care Teams Furniture Refinisher Relationship Specialty Start Date End Date Nicola Prado MD [address] [place] [address] [place] [address] PCP - General Family Medicine 06/19/21 documented as of this encounter
--- OUTSIDE RECORDS SUMMARY | 2023-02-03 20:31 | External Medical Summary | Summary of Care ---
Author Name Unknown Organization [facility] Address [address] [place] [address] Phone [phone] Care Team Providers Care Energy Attorney Name Role Phone Nicola Menard MD Primary Care Provide r Reason for Visit * Reason Comments eRx-Medication Refill Encounter Details Date Type Department Care Team Description 10/12/2022 Refill Family Medicine [address] [phone] Nicola Menard MD [address] [place] [address] Dyslipidemia, goal LDL below 70 Allergies Active Allergy Reactions Severity Noted Date Comments Hydromorphone High 09/20/2021 Other reaction(s): Nausea Other reaction(s): Nausea 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/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 Other reaction(s): AMS Other reaction(s): AMS Prasugrel 04/02/2016 bleeding Prednisone High 09/20/2021 Other reaction(s): INCREASE BLOOD SUGAR Other reaction(s): INCREASE BLOOD SUGAR documented as of this encounter (statuses as of 10/13/2022) Medications Medication Sig Dispensed Refills Start Date [...] of less than 8.0% ([facility]) Test blood sugar up to five [...] Tablet 1 05/05/2022 Active Easy Touch Pen Azalea 31G X 8 MM (Insulin Pen Needle)Indication s:Type 2 diabetes mellitus with hemoglobin A1c goal of less than 8.0% (HCC),Type 2 diabetes mellitus with stage 4 chronic kidney disease, unspecified whether terminal superintendent insulin use (HCC) Use up to six [...] Auto-injector (Enbrel Sureclick)Indicat ions:Polyarticula r psoriatic arthritis ([facility]),H/O psoriasis Inject 50 mg under the [...] mouth daily. 90 Tablet 0 10/13/2022 Active Atorvastatin Calcium 80 MG Oral Tablet (Lipitor)Indicati ons:Dyslipidemia, goal LDL below 70 Take 1 Tablet by mouth daily. 90 Tablet 2 01/25/2022 10/14/19 23 Discontinued Hospital, Clinic, or Other Facility [...] as of this encounter (statuses as of 10/13/2022) Active Problems Problem Noted Date Hypertensive heart and kidne y disease with [...] urinary tr act symptoms 07/13/2001 Atherosclerosis of [place] co ronary artery of [place] heart without angina pectoris Morbid obesity with BMI of 40.0-44.9, ad ult documented as of this encounter (statuses as of 10/13/2022) Resolved Problems Problem Noted Date Resolved Date [...] aero chamber. Test performed by Dori ELECTRICAL AND RADIO AIRCRAFT MECHANIC CPFT Body mass index (BMI) of [...] 07/22/2008 0 Overview: Kianna Lyn RN [phone] Examination following surgery 07/11/2008 Difficult intubation 07/10/2008 02/19/2020 Overview: Patient seen and examined in OR#1.Possible difficult intubation.TM distance about 5 cms.MP 3-4. Will plan FOB electively Due to current situation. EXAMINATION OF PARTICIPANT IN CLINICAL TRIAL-gen omics 07/04/2008 05/30/2009 Overview: Renamed Per Clinical Trials Billing Project. Study Titile: Genomic Markers for Patients with Cardiovascular Disease Project #[id number] PI: Miriam Roque MD Please call [phone] with study related questions Chronic coronary artery [...] at goal 07/04/2008 9 GENOMICS CARDIO RESEARCH OTHER*[id number] 200803/23/2016 Overview: Renamed Per Clinical Trials Billing Project. Study Titile: Genomic Markers for Patients with Cardiovascular Disease Project #[id number] PI: Miriam Roque MD Please call [phone] with study related questions Kidney disease, chronic, [...] as of this encounter (statuses as of 10/13/2022) Immunizations Name Administration Dates Next Due COVID-19 [...] encounter Miscellaneous Notes * Telephone Encounter - Isabel Kelley [facility] - 10/13/2022 1:06 PM EDT Signed Prescriptions: Disp Refills Atorvastatin Calcium 80 MG Oral Tablet (Li*90 Tab*0 Sig: Take 1 Tablet by mouth daily.Authorizing Provider: Luis MENARD User: ISABEL KELLEY * Telephone Encounter - Isabel Kelley [facility] - 10/13/2022 1:04 PM EDT RX authorized. Zero refills given until upcoming OV. Thank you, Isabel Kelley, PharmD Clinical Pharmacist [facility] ([facility]) (formerly Telepharmacy) 10/13/22 1:04 PM [phone] documented in this encounter Plan of Treatment Upcoming Encounters Date Type Specialty Care Team Description 10/13/2022 Office Visit Family Medicine Nicola Menard MD [address] [place] [address] [place] [address] 10/21/2022 Office Visit Family Medicine Nicola Menard MD [address] [place] [address] [place] [address] 10/22/2022 [facility] [address] [place] [address] 11/17/2022 Office Visit [address] [place] [address] 11/30/2022 Office Visit Urology Denny Armando MD [address] [place] [address] [place] [address] 12/20/2022 Office Visit Dermatology Meron Aragon PA-C [address] [place] [address] [place] [address] 01/24/2023 Office Visit Rheumatology Ashley Mancilla PA-C 01/28/2023 Office Visit Nephrology ZeVerito gramajo [facility]-C [address] [facility] [address] 03/04/2023 Office Visit Gastroenterology Marielena Hall CRNP [address] [place] [address] 03/29/2023 Office Visit Cardiology Blair Hannah PA-C [address] [place] [address] 06/02/2023 Nurse Only Ancillary Neeraj, Nurse Annual [address] [place] [address] 10/12/2023 Office Visit Sleep Disorders Eulalia Milligan DO [address] [place] [address] Scheduled Procedures Name Priority Associated Diagnoses Date/Ti [...] 04/23/2023 023, 03/24/2022, 06/19/2021, Additional history exists DIABETES-FOOT EXAM 05/29/2023 05/28/2022, 0 04/24/2020, 12/20/2018, Additional history exists Depression Screening, Annual for Pts 12 and Over 05/29/2023 05/28/2022 COLONOSCOPY-EVERY 5 YRS AGES 18-100 10/31/2025 10/31/2020, [...] encounter Medical Devices Implanted Type Area Metal Machine Setter Device Identifier Shelf Expiration Date Model / Serial / Lot Lei Agrawal 6 [id number] - [id number] Implanted:Qty: 6 on 07/10/[place] [facility]: Chest DO NOT USE 08/14/2012 [id number] / / [id number] documented as of this encounter Visit Diagnoses Diagnosis Dyslipidemia, goal LDL below 70 Other and unspecified hyperlipidemia documented in this encounter Advance Directives Documents on File Type Date Recorded Patient Websphere Portal Developer Expl anation Power of Cargo Router 06/26/2019 POWER OF A TTORNEY Advance Directives [...] the patient have Health Care Power of Cargo Router? No Code Status History Code Status Date [...] or by statute hierarchy) Care Teams Energy Attorney Relationship Specialty Start Date End Date Nicola Menard MD [address] [place] [address] [place] [phone] PCP - General Family Medicine 06/19/21 documented as of this encounter
--- OUTSIDE RECORDS SUMMARY | 2023-02-03 20:31 | External Medical Summary | Summary of Care ---
Author Name Unknown Organization [facility] Address [address] [place] [address] Phone [phone] Care Team Providers Care Estimator Binding Name Role Phone Nicola Prado MD Primary Care Provide r Reason for Visit * Reason Onset Date Comments Advice 10/20/2022 Encounter Details Date Type Department Care Team Description 10/20/2022 Telephone Pulmonary Medicine, [facility] [address] [place] [address] uElalia Milligan DO [address] [place] [address] Advice Allergies Active Allergy Reactions Severity Noted [...] Tablet 1 05/05/2022 Active Easy Touch Pen [place] 31G X 8 MM (Insulin Pen Needle)Indications: Type 2 diabetes mellitus with hemoglobin A1c goal of less than 8.0% (HCC),Type 2 diabetes mellitus with stage 4 chronic kidney disease, unspecified whether watermaster insulin use (HCC) Use up to six [...] Atherosclerosis of coronary artery bypass graft of [place] heart with angina pectoris 10/13/2022 Encounter for [...] urinary tr act symptoms 07/13/2001 Atherosclerosis of [place] co ronary artery of [place] heart without angina pectoris Morbid obesity with [...] use aero chamber. Test performed by Dori SKINNER PELTS CPFT Body mass index (BMI) of 45.0 [...] MANAGEMENT 07/22/2008 0 Overview: Kianna Lyn RN [phone] Examination following surgery 07/11/2008 Difficult intubation 07/10/2008 02/19/2020 Overview: Patient seen and examined in OR#1.Possible difficult intubation.TM distance about 5 cms.MP 3-4. Will plan FOB electively Due to current situation. EXAMINATION OF PARTICIPANT IN CLINICAL TRIAL-gen omics 07/04/2008 05/30/2009 Overview: Renamed Per Clinical Trials Billing Project. Study Titile: Genomic Markers for Patients with Cardiovascular Disease Project #[id number] PI: Miriam Roque MD Please call [phone] with study related questions Chronic coronary artery [...] at goal 07/04/2008 9 GENOMICS CARDIO RESEARCH OTHER*[id number] 200803/23/2016 Overview: Renamed Per Clinical Trials Billing Project. Study Titile: Genomic Markers for Patients with Cardiovascular Disease Project #[id number] PI: Miriam Roque MD Please call [phone] with study related questions Kidney disease, chronic, [...] encounter Miscellaneous Notes * Telephone Encounter - Eulalia Milligan DO [...] 2:06 PM EDT Pt is calling and [facility] Pt in [place] hasn't received the new pressure for pt's machine. Please advise. documented in this encounter Plan of Treatment Upcoming Encounters Date Type Specialty Care Team Description 10/22/2022 Cardiac Studies Cardiology Keith Pickard [address] [place] [address] 10/28/2022 Office Visit Card[facility] [address] [facility] [place] [address] 11/17/2022 Office Visit [address] [place] [address] 11/30/2022 Office Visit Urology Denny Armando MD [address] [place] [address] [place] [address] 12/15/2022 Office Visit Family Medicine Nicola Prado MD [address] [place] [address] [place] [address] 12/20/2022 Office Visit Dermatology Meron Aragon PA-C [address] [place] [address] [place] [address] 01/24/2023 Office Visit Rheumatology Ashley Mancilla PA-C 01/28/2023 Office Visit Nephrology [facility]vel [facility]C [address] [facility] [address] 03/04/2023 Office Visit Gastroenterology Marielena Hall CRNP [address] [place] [address] 03/29/2023 Office Visit Cardiology Blair Hannah PA-C [address] [place] [address] 06/02/2023 Nurse Only Ancillary Neeraj, Nurse Annual Wellness [address] [place] [address] [place] [address] 10/12/2023 Office Visit Sleep Disorders Milligan, Eulalia Melissa, DO [address] [place] [address] Scheduled Procedures Name Priority Associated Diagnoses Date/Ti [...] this encounter Medical Devices Implanted Type Area [place] Operator Device Identifier Shelf Expiration Date Model / Serial / Lot Sut Steel 6 [id number] - [id number] Implanted:Qty: 6 on 07/10/2008 at [place] [facility] [place] N/A: Chest DO NOT USE 08/14/2012 [id number] / / [id number] documented as of this encounter Advance Directives Documents on File Type Date Recorded Patient Hydrotreater Operator Expl anation Power of Green Chain Operator 06/26/2019 POWER OF A TTORNEY Advance [...] the patient have Health Care Power of Green Chain Operator? No Code Status History Code Status [...] patient or by statute hierarchy) Care Teams Estimator Binding Relationship Specialty Start Date End Date Nicola Prado MD [address] [place] [address] [place] [address] PCP - General Family Medicine 06/19/21 documented as of this encounter
--- OUTSIDE RECORDS SUMMARY | 2023-02-03 20:31 | External Medical Summary | Summary of Care ---
Author Name Unknown Organization [facility] Address [address] [place] [address] Phone [phone] Care Team Providers Care Computer Security Specialist Name Role Phone Niocla Prado MD Primary Care Provide r Reason for Visit * Reason Comments Acute Encounter Details Date Type Department Care Team Description 10/13/2022 Office Visit Family Medicine [address] [phone] Nicola Prado MD [address] [place] [address] [place] [address] COPD exacerbation (HCC)*; Atherosclerosis of coronary artery bypass graft of [place] heart with angina pectoris (HCC); Encounter for long-term (current) insulin use (HCC); Hip pain, right Allergies Active Allergy Reactions Severity Noted Date [...] Tablet 1 05/05/2022 Active Easy Touch Pen [place] 31G X 8 MM (Insulin Pen Needle)Indications: Type 2 diabetes mellitus with hemoglobin A1c goal of less than 8.0% (HCC),Type 2 diabetes mellitus with stage 4 chronic kidney disease, unspecified whether crime lab technician insulin use (HCC) Use up to six [...] goal of less than 8.0% ([facility]),Type 2 diabetes mellitus with stage 4 chronic kidney disease, with long-term current use of insulin ([facility]) Inject 1.8 mg under the skin daily. 27 mL 3 07/23/2022 Active Furosemide 80 MG Oral Tablet (Lasix) Take 1 Tablet by mouth in the morning. 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 Take with plenty of water. Do not cut, crush or chew 40 Tablet 0 10/13/2022 Active methylPREDNISolone 4 MG Oral Tablet Therapy Pack (Medrol Dosepack)Indication s:COPD exacerbation ([facility]) follow package directions 21 Tablet [...] of 10/13/2022) Active Problems Problem Noted Date Atherosclerosis of [...] act symptoms 07/13/2001 Atherosclerosis of [place] co [...] (transient ischemic attack) 02/04/2016 11/23/2017 Overview: [facility] Anemia of chronic renal failure 07/30/2015 [...] MANAGEMENT 07/22/2008 0 Overview: Kianna Lyn RN [phone] Examination following surgery 07/11/2008 Difficult intubation 07/10/2008 02/19/2020 Overview: Patient seen and examined in OR#1.Possible difficult intubation.TM distance about 5 cms.MP 3-4. Will plan FOB electively Due to current situation. EXAMINATION OF PARTICIPANT IN CLINICAL TRIAL-gen omics 07/04/2008 05/30/2009 Overview: Renamed Per Clinical Trials Billing Project. Study Titile: Genomic Markers for Patients with Cardiovascular Disease Project #[id number] PI: Fabienne Martinez MD Please call [phone] with study related questions Chronic coronary artery [...] at goal 07/04/2008 9 [employer]OMICS CARDIO RESEARCH OTHER*[id number] 200803/23/2016 Overview: Renamed Per Clinical Trials Billing Project. Study Titile: Genomic Markers for Patients with Cardiovascular Disease Project #[id number] PI: Fabienne Martinez MD Please call [phone] with study related questions Kidney disease, chronic, [...] mRNA, LNP-s, No Pre serve, 2-Dose Series ([employer]) 12/09/2020,05/09/2020,04/11/2020 COVID-19, LNP-s, No Preserve , Juan [...] 01/27/1998 Smokeless Tobacco: Never Tobacco Cessation:Counseling Given: No Alcohol Use Standard Drinks/Week Comments No 0 [...] Sign Reading Time Taken Comments Blood Pressure 130/62 10/13/2022 2:24 PM EDT Pulse 84 10/13/2022 2:24 PM EDT Temperature 35.9 C (96.6 F) 10/13/2022 2:24 PM ED T Respiratory Rate 16 10/13/2022 2:24 PM EDT Oxygen Saturation 95% 10/13/2022 2:24 PM EDT on 2 L Inhaled Oxygen Concentration - - Weight 117.6 kg (259 lb 3.2 oz) 10/13/2022 2:24 PM EDT Height 162.6 cm (5' 4") 10/13/2022 2:24 PM EDT Body Mass Index 44.49 10/13/2022 2:24 PM EDT documented in this encounter Progress Notes * Nicola Prado MD - 10/13/2022 2:32 PM EDT Subjective: HPI: Maurisio Beltran is a 82 year old male with [...] of prostate Ca s/p brachytherapy seen for SOB with walking: - for 2 weeks - had to wear oxygen with walking + wheezing and coughing - denied any fever - pt does not tolerate prednisone Having R lower back pain - that radiates to the leg - getting worse - denied any trauma - worse with standing and walking Patient Active Problem List Diagnosis Code BPH without obstruction/lower urinary tract symptoms N40.0 Psoriasis L40.9 Generalized osteoarthritis M15.9 Iron deficiency anemia due to chronic blood loss D50.0 Atherosclerosis of [place] coronary artery of [place] heart without angina pectoris I25.10 Aortocoronary bypass status Z95.1 Type 2 diabetes mellitus with hemoglobin A1c goal of less than 8.0% ([facility]) E11.9 Dyslipidemia E78.5 Vitamin D deficiency E55.9 REENA-inhibitor cough R05.8, T46.4X5A Obstructive sleep apnea of adult G47.33 Psoriatic arthropathy ([facility]) L40.50 S/P primary angioplasty with coronary stent Z95.5 Stubbs's esophagus with dysplasia K22.719 Pulmonary hypertension ([facility]) I27.20 Chronic diastolic heart failure ([facility]) I50.32 Gout M10.9 COPD, group D, by GOLD 2017 classification ([facility]) J44.9 Chronic respiratory failure with hypoxia ([facility]) J96.11 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 Morbid obesity with BMI of 40.0-44.9, adult ([facility]) E66.01, Z68.41 Vitamin B12 deficiency E53.8 Atrioventricular block, Mobitz type 1, Wenckebach I44.1 S/P placement of cardiac pacemaker Z95.0 H/O dysplastic nevus Z86.018 Hx of nonmelanoma skin cancer Z85.828 Elevated prostate specific antigen (PSA) R97.20 Chronic pain of right hip M25.551, G89.29 Leg swelling M79.89 Anemia in stage 4 chronic kidney disease ([facility]) N18.4, D63.1 Macular degeneration of both eyes H35.30 HTN, goal below 140/90 I10 Current mild episode of major depressive disorder without prior episode ([facility]) F32.0 Type 2 diabetes mellitus with stage 4 chronic kidney disease, with long-term current use of insulin([facility]) E11.22, N18.4, Z79.4 CHB (complete heart block) ([facility]) I44.2 Prostate cancer ([facility]) C61 Stage 3b chronic kidney disease ([facility]) N18.32 Plaque psoriasis L40.0 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 Take with plenty of water. Do not cut, crush or chew 40 Tablet 0 methylPREDNISolone 4 MG Oral Tablet Therapy Pack (Medrol Dosepack) follow package directions 21 Tablet 0 ASPIRIN 81 MG PO CHEW 1 Tab [...] if over 140 mg/dL 110 mL 3 Tresiba FlexTouch 200 UNIT/ML Subcutaneous Solution Pen-injector (Insulin Degludec) Inject 110 Units under the skin in the morning. 63 mL 3 Tamsulosin HCl 0.4 MG Oral [...] minutes 25 Tablet 1 Easy Touch Pen [place] 31G X 8 MM (Insulin Pen Needle) [...] Tablet by mouth daily. 90 Tablet 0 Current Facility-Administered Medications Medication Dose Route Frequency Provider Last Rate Last Admin Albuterol Sulfate (Proventil) (2.5 MG/3ML) 0.083% inhalation solution 2.5 mg 2.5 mg Nebulizer LOURDES Mccrary PA-C Albuterol Sulfate (Proventil) (5 MG/ML) 0.5% *conc* inhalation solution 2.5 mg 2.5 mg Nebulizer Robles Mccrary PA-C Past Medical History: Diagnosis Date (HFpEF) heart failure with preserved ejection fraction (HCC) Acute blood loss anemia 10/29/2020 [facility] transfused Acute exacerbation of chronic obstructive pulmonary disease (COPD) ([facility]) 05/11/2018 [facility] Altered mental status 03/31/2017 likely the baclofen [...] colon 11/06/2010 Hyperplastic polyps BMI 40.0-44.9, adult ([facility]) BPH without obstruction/lower urinary tract symptoms Chest pain Chest pain radiating to arm 07/22/2015 left chest pain radiating to arm, probably left rotator cuff CKD (chronic kidney disease), stage IV ([facility]) GFR 26.5 COPD, mild ([facility]) 08/21/2010 COPD, moderate ([facility]) 10/04/2014 PFT Coronary atherosclerosis of [place] coronary artery 07/04/2008 Admitted [facility] COVID-19 02/24/2021 Dermatophytosis of scalp or bello DM type 2 causing CKD stage 4 ([facility]) DM type 2, goal A1c below [...] disease, chronic, stage III (GFR 30-59 ml/min) ([facility]) 06/2008 Malignant neoplasm of prostate ([facility]) Prostate Mixed dyslipidemia Morbid obesity with BMI of 45.0-49.9, adult ([facility]) Other psoriasis S/P primary angioplasty with coronary stent 09/05/2013 drug eluting stents to 60% RCA, other grafts open except SVG to PDA is occluded Sleep apnea CPAP Sleep apnea, obstructive Symptomatic anemia 10/29/2020 Admitted [facility] and transfused TIA (transient ischemic attack) 02/04/2016 [facility] Tubular adenoma 10/31/2020 Past Surgical History: Procedure Laterality Date BRACHYTHERAPY SEED,IRIDIUM 192 01/2004 BYPASS GRAFT ANGIOGRAPHY W/LEFT HEART CATH 09/05/2013 BYPASS GRAFT ANGIOGRAPHY W/LEFT HEART CATH performed by Aleisha Abraham MD at [facility] BYPASS GRAFT ANGIOGRAPHY W/RIGHT+LEFT CATH Right 08/25/2016 BYPASS GRAFT ANGIOGRAPHY W/RIGHT+LEFT CATH performed by Eliseo José MD at [facility] CABG, ARTERIAL, SINGLE 07/10/2008 CORONARY ARTERY BYPASS GRAFT USING ARTERY 1 GRAFT performed by BUDDY VILCHIS at [facility] CABG, ARTERY-VEIN, TWO 07/10/2008 CORONARY ARTERY BYPASS GRAFT ARTERIAL AND VENOUS 2 GRAFTS performed by BUDDY VILCHIS at [facility] CARDIAC CATH-CARDIOLOGY ONLY 09/05/2013 60% RCA, drug [...] 06/25/2015 adenomatous & hyperplastic polyps, repeat 3 yrs/[facility] COLONOSCOPY, DIAGNOSTIC (RECTUM) 04/20/2018 hyperplastic polyp, repeat 5 yrs/[facility] COLONOSCOPY, DIAGNOSTIC (RECTUM) 10/31/2020 adenomatous polyp, diverticulosis, repeat 3 yrs / [facility] COLONOSCOPY, REMOVE LESION, W/SNARE 06/25/2015 4 mm polyp ascending, 2 polyps in rectum, diverticulosis COMBINED RT & LEFT HEART CATHETERS 07/04/2008 RIGHT AND RETROGRADE LEFT HEART CATH performed by CANDELARIO VINES at [facility] COMBINED RT & LEFT HEART CATHETERS 01/01/2010 RIGHT AND RETROGRADE LEFT HEART CATH performed by KAREL OBANDO at [facility] CT HEAD/BRAIN WO CONTRAST N/A 02/04/2016 patchy [...] by Jose Eduardo Valadez MD at ENDOSCOPY [facility] EGD, FLEXIBLE, DIAGNOSTIC 06/25/2015 esophagitis/[facility] EGD, FLEXIBLE, DIAGNOSTIC N/A 11/14/2020 two large inlet patches/patchey antral gastritis/biopsies show Barretts/EGD EGD, FLEXIBLE, DIAGNOSTIC 05/22/2021 Barretts, repeat 3 yrs / [facility] EGD, FLEXIBLE, DIAGNOSTIC 06/26/2021 normal / INPT [facility] EGD, FLEXIBLE, DIAGNOSTIC 09/09/2021 mildly inflammed mucosa on bx / [facility] EGD, FLEXIBLE, DIAGNOSTIC 10/30/2020 single bleeding angiodysplastic lesion in the jejunum / INPT [facility] EGD, FLEXIBLE, W/BIOPSY 11/14/2006 mild chronic inflammation EGD, FLEXIBLE, W/BIOPSY 04/25/2008 stomach gastritis, stubbs's esophagus, recommend f/u in 2 years EGD, FLEXIBLE, W/BIOPSY 06/25/2015 stomach and duodenum normal ENDO,VIDEO ASSIST HARVEST DILLON 07/10/2008 ENDOSCOPY VIDEO ASSISTED HARVEST VEIN performed by BUDDY VILCHIS at OR [facility] FLUORO SWALLOWING FUNCTION W VIDEO CINE 11/14/2017 moderate esophageal dysmotility, no mass or stricture FLUORO UPPER GI W AIR WO KUB 06/03/2014 normal HC VENOUS DUPLEX COMPLETE BILATERAL LOWER EXTREMITY Bilateral 11/14/2017 no DVT INSERT HEART ELECTRODE, DUAL CHAMBR 06/11/2020 [facility] INSERT IA PERCUT DEVICE 07/10/2008 INSERT INTRA AORTIC BALLOON ASSIST DEVICE PERCUTANEOUS performed by FABIENNE MARTINEZ at [facility] LEFT HEART CATHETERIZATION 07/04/2008 80% mid left [...] performed by Annelise Diaz MD at OR [facility] SMALL BOWEL ENDOSCOPY W/BX 07/03/2010 await [...] Cancer Uncle (Unspecified) Heart Disorder Brother 46 [place] age 46 Heart Disorder Mother mi age 82 Diabetes Son 35 IDDM Mental Disorder Mother Received electric shcok in the [place] Blood Disorder Son "Thick Blood" Arthritis Son Social History Tobacco Use Smoking status: Former Packs/day: 2.00 Years: 10.00 Pack years: 20.00 Types: Cigarettes Quit date: 01/27/1998 Years since quittin.7 Smokeless tobacco: Never Substance Use Topics Alcohol use: No Vaping/E-Cigarette Use Vaping/E-Cigarette Use Never User Vaping/E-Cigarette Substances Vaping/E-Cigarette Devices ROS: -Per HPI OBJECTIVE: BP 130/62 | Pulse 84 | Temp 35.9 C (96.6 F) (Tympanic) | Resp 16 | Ht 1.626 m (5' 4") | Wt 117.6 kg (259 lb 3.2 oz) | SpO2 95% Comment: on 2 L | BMI 44.49 kg/m | BSA 2.3 m PHYSICAL EXAM: Vitals are reviewed Lungs: good air entry b/l with exp wheezing, no crackles ASSESSMENT/PLAN: Per pt he never taken medrol dose pack before COPD exacerbation (HCC) (Primary) - Azithromycin 250 MG Oral Tablet (Zithromax Z-Kei); Take two tablets by mouth on first day, then 1tablet daily until gone - guaiFENesin ER 600 MG Oral Tablet Extended Release 12 Hour (Mucinex); Take 1 Tablet by mouth 2 times a day as needed for Congestion. Take with plenty of water. Do not cut, crush or chew - methylPREDNISolone 4 MG Oral Tablet Therapy Pack (Medrol Dosepack); follow package directions Atherosclerosis of coronary artery bypass graft of [place] heart with angina pectoris ([facility]) - s/p CABG Encounter for long-term (current) insulin use ([facility]) - below goal Hip pain, right - 2/2 MSK + DJD flare - recommended Ice and heat - can do tylenol prn Nicola Prado MD Family medicine, [address] [address] documented in this encounter Nursing Notes * Eda Mcintosh LPN - 10/13/2022 2:23 PM EDT Pt here for several concerns Having a sore left arm - wondering if it might be related to the injections he gets Breathing is getting worse x couple weeks Currently wearing 2 L of oxygen Has been using his day oxygen more often - almost daily Wondering if breathing is related to weather Having pain in right leg pain Pain is from knee down - worse at night Also having pain in right hip documented in this encounter Plan of Treatment Upcoming Encounters Date Type Specialty Care Team Description 10/22/2022 Cardiac Studies Cardiology [facility] [address] [place] [id number] 11/17/2022 Office Visit [address] [place] [address] 11/30/2022 Office Visit Urology Denny Armando MD [address] [address] [place] [address] 12/15/2022 Office Visit Family Medicine Nicola Prado MD [address] [place] [address] [place] [address] 12/20/2022 Office Visit Dermatology Meron Aragon PA-C [address] [place] [address] [place] [address] 01/24/2023 Office Visit Rheumatology Ashley Mancilla PA-C 01/28/2023 Office Visit Nephrology Verito Joevl PA-C [address] [facility] [address] 03/04/2023 Office Visit Gastroenterology Marielena Hall CRNP [address] [place] [address] 03/29/2023 Office Visit Cardiology Blair Hannah PA-C [address] [place] [address] 06/02/2023 Nurse Only Ancillary Neeraj Nurse [facility] [address] [place] [address] [place] [address] 10/12/2023 Office Visit Sleep Disorders Eulalia Milligan, DO [address] [place] [address] Scheduled Procedures Name Priority Associated Diagnoses Date/Ti me ESOPHAGOGASTRODUODENOSCOPY ( EGD), FLEXIBLE, TRANSORAL, DIAGNOSTIC Recall Stbubs esophagus COLONOSCOPY FLEXIBLE PROXIMAL DIAGNOSTIC Recall History [...] 10/22/2021, Additional history exists GFR 04/13/2023 10/11/2022, 082 02/2022, 09/09/2022, Additional history exists Albumin/Creatinine Ratio [...] / Lot Sut Steel 6 [id number] - [id number] Implanted:Qty: 6 on 07/10/2008 at OR [facility] N/A: Chest DO NOT USE 08/14/2012 [id number] / / [id number] documented as of this encounter Visit Diagnoses Diagnosis COPD exacerbation (HCC)- Primary Obstructive chronic bronchitis with exacerbation Atherosclerosis of coronary artery bypass graft of [place] heart with angina pectoris (HCC) Encounter for long-term (current) insulin use (HCC) Encounter for long-term (current) use of insulin Hip pain, right Pain in joint, pelvic region and thigh documented in this encounter Advance Directives Documents on File Type Date Recorded Patient Coffin Maker Expl anation Power of Medical Examiner 06/26/2019 POWER OF A TTORNEY Advance [...] the patient have Health Care Power of Medical Examiner? No Code Status History Code Status Date Activated Date Inactivated Comments Full Code 07/10/2008 6:37 PM 07/21/2008 4:52 PM This o rder reflects the patients wishes and were consensually agreed upon. Full Code 07/04/2008 2:18 PM 07/10/2008 6:30 PM Healthcare Agents on File Name Relationship Healthcare [facility] Shane Beltran Adult Child Health Care Repr esentative (appointed verbally by patient or by statute hierarchy) Care Teams Computer Security Specialist Relationship Specialty Start Date End Date Nicola Prado MD [address] [place] [address] [place] [address] PCP - General Family Medicine 06/19/21 documented as of this encounter
--- OUTSIDE RECORDS SUMMARY | 2023-02-03 20:31 | External Medical Summary | Summary of Care ---
Author Name Unknown Organization [facility] Address [address] [place] [address] Phone [phone] Care Team Providers Care Importer Or Exporter Name Role Phone Nicola Prado MD Primary Care Provide r Reason for Visit * Reason Onset Date Comments Blood Sugar Problem 10/19/2022 Advice 10/19/2022 RED FLAG- blood sugar levels 400-500, new medication Encounter Details Date Type Department Care Team Description 10/19/2022 Telephone Pharmacy, Eliza Roth[facility] [place] [address] [place] [address] Blood Sugar Problem; Advice (RED FLAG- blo... Allergies Active Allergy Reactions Severity Noted Date Comments Hydromorphone High 09/20/2021 Other reaction(s): Nausea Other reaction(s): Nausea 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/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 Other reaction(s): AMS Other reaction(s): AMS Prasugrel 04/02/2016 bleeding Prednisone High 09/20/2021 Other reaction(s): INCREASE BLOOD SUGAR Other reaction(s): INCREASE BLOOD SUGAR documented as of this encounter (statuses as of 10/19/2022) Medications Medication Sig Dispensed Refills Start Date [...] hemoglobin A1c goal of less than 8.0% ([facility]) Test blood sugar up to five times daily; dx E11.9 450 Each 3 12/17/2021 Active OneTouch Ultra In Vitro Strip (Glucose Blood)Indications:T ype 2 diabetes mellitus with hemoglobin A1c goal of less than 8.0% ([facility]) 3-4 times a day 450 Strip 3 12/17/2021 Active Xiidra 5 % Ophthalmic Solution instill 1 drop by ophthalmic route 2 times every day into both eyes. OK for 90 day supply. 0 01/05/2022 Active NovoLOG FlexPen 100 UNIT/ML Subcutaneous Solution Pen-injector (insulin aspart)Indications: Type 2 diabetes mellitus with hemoglobin A1c goal of less than 8.0% ([facility]) 12 units with breakfast and supper PLUS correction factor of 1:25 if over 140 mg/dL 110 mL 3 03/23/2022 Active Tresiba FlexTouch 200 UNIT/ML Subcutaneous Solution Pen-injector (Insulin Degludec)Indication s:Type 2 diabetes mellitus with hemoglobin A1c goal of less than 8.0% ([facility]) Inject 110 Units under the skin in [...] Tablet 1 05/05/2022 Active Easy Touch Pen [place] 31G X 8 MM (Insulin Pen Needle)Indications: Type 2 diabetes mellitus with hemoglobin A1c goal of less than 8.0% ([facility]),Type 2 diabetes mellitus with stage 4 chronic kidney disease, unspecified whether mcc insulin use ([facility]) Use up to six times daily with insulin. DXe11.9 600 Each 3 05/22/2022 Active Albuterol Sulfate HFA 108 (90 Base) MCG/ACT Inhalation Aerosol SolutionIndications :COPD exacerbation ([facility]),Chronic cough Inhale by mouth 2 Puffs every 4 hours as needed for Cough or Shortness of Breath. Reports doesn't help 18 g 2 05/27/2022 Active Victoza 18 MG/3ML Subcutaneous Solution Pen-injector (Liraglutide)Indica tions:Type 2 diabetes mellitus with hemoglobin A1c goal of less than 8.0% ([facility]),Type 2 diabetes mellitus with stage 4 chronic kidney disease, with long-term current use of insulin ([facility]) Inject 1.8 mg under the skin daily. 27 mL 3 07/23/2022 Active Furosemide 80 MG Oral Tablet (Lasix) Take 1 Tablet by mouth in the morning. 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 Take with plenty of water. Do not cut, crush or chew 40 Tablet 0 10/13/2022 Active methylPREDNISolone 4 MG Oral Tablet Therapy Pack (Medrol Dosepack)Indication s:COPD exacerbation ([facility]) follow package directions 21 [...] as of this encounter (statuses as of 10/19/2022) Active Problems Problem Noted Date Atherosclerosis of coronary artery bypass graft of [place] heart with angina pectoris 10/13/2022 Encounter for [...] urinary tr act symptoms 07/13/2001 Atherosclerosis of [place] co ronary artery of [place] heart without angina pectoris Morbid obesity with BMI of 40.0-44.9, ad ult documented as of this encounter (statuses as of 10/19/2022) Resolved Problems Problem Noted Date Resolved Date [...] use aero chamber. Test performed by Dori SALON COORDINATOR CPFT Body mass index (BMI) of 45.0 [...] (transient ischemic attack) 02/04/2016 11/23/2017 Overview: [facility] Anemia of chronic renal failure 07/30/2015 [...] MANAGEMENT 07/22/2008 0 Overview: Kianna Lyn RN [phone] Examination following surgery 07/11/2008 Difficult intubation 07/10/2008 02/19/2020 Overview: Patient seen and examined in OR#1.Possible difficult intubation.TM distance about 5 cms.MP 3-4. Will plan FOB electively Due to current situation. EXAMINATION OF PARTICIPANT IN CLINICAL TRIAL-gen omics 07/04/2008 05/30/2009 Overview: Renamed Per Clinical Trials Billing Project. Study Titile: Gen[employer] Markers for Patients with Cardiovascular Disease Project #[id number] PI: Miriam Roque MD Please call [phone] with study related questions Chronic coronary artery [...] at goal 07/04/2008 9 GENOMICS CARDIO RESEARCH OTHER*[id number] 200803/23/2016 Overview: Renamed Per Clinical Trials Billing Project. Study Titile: Genomic Markers for Patients with Cardiovascular Disease Project #[id number] PI: Miriam Roque MD Please call [phone] with study related questions Kidney disease, chronic, [...] as of this encounter (statuses as of 10/19/2022) Immunizations Name Administration Dates Next Due COVID-19 mRNA, LNP-s, No Pre serve, 2-Dose Series (Pikanote) 12/09/2020,05/09/2020,04/11/2020 COVID-19, LNP-s, No Preserve , Juan [...] Telephone Encounter - Karlene Alvarez RPh - 10/19/2022 4:27 PM EDT Patient Phone [...] Karlene Alvarez RPh, PharmD Clinical Pharmacist - Application Manager Medication Therapy [facility] 10/19/2022, 4:34 PM Ph.[phone] * Telephone Encounter - KATHE Collado - 10/19/2022 4:16 PM EDT What is the reason for call? Blood sugar levels up to 400-500 after starting new med What Clinic is the patient trying to reach? [facility]- Choose Clinic: [facility] - CallType: Red Flag- route the telephone encounter as routine to carburetor rebuilder p [id number] Caller: patient Return Phone #: [phone] Call was routed "routine" to the [facility] nurse triage basket (p [phone]). * Telephone Encounter - HARLEY Ayala - 10/19/2022 9:42 AM EDT Caller's name: Maurisio Preferred call back number(OFFICE NUMBER FOR ): [phone] Reason for call: High blood sugar Pt started RX methylPREDNISolone 4 MG Oral Tablet Therapy Pack (Medrol Dosepack) , says he had to stop taking it due to sugar going up to 400-500s, requesting to speak to [facility] Thank you, Rubin Adams [facility] [employer] Carpenters Helper Interneer Telepharmacy 10/19/2022,9:42 AM documented in this encounter Plan of Treatment Upcoming Encounters Date Type Specialty Care Team Description 10/22/2022 [facility] Studies [facility] [address] [place] [address] 11/17/2022 Office Visit [address] [place] [address] 11/30/2022 Office Visit Urology Denny Armando MD [address] [facility] [address] [place] [address] 12/15/2022 Office Visit Family Medicine Nicola Prado MD [address] [place] [address] [place] [address] 12/20/2022 Office Visit Dermatology Meron Aragon, LEONIE [address] [place] [address] [place] [address] 01/24/2023 Office Visit Rheumatology Ashley Mancilla PA-C 01/28/2023 Office Visit Nephrology [facility]vel [facility]-C [address] [facility] [address] [facility]/2023 Office Visit Gastroenterology Marielena Hall CRNP [address] [place] [address] 03/29/2023 Office Visit Cardiology Blair Hannah PA-C [address] [place] [address] 06/02/2023 Nurse Only Ancillary Neeraj, Nurse Annual [facility] [address] [place] [address] [place] [address] 10/12/2023 Office Visit Sleep Disorders Eulalia Milligan DO [address] [place] [address] Scheduled Procedures Name Priority Associated Diagnoses Date/Ti [...] 10/22/2021, Additional history exists GFR 04/13/2023 10/11/2022, 08/02/2022, 09/09/2022, Additional history exists Albumin/Creatinine Ratio 04/23/2023 [...] this encounter Medical Devices Implanted Type Area Asset Administrator Device Identifier Shelf Expiration Date Model / Serial / Lot Sut Steel 6 [id number] - [id number] Implanted:Qty: 6 on 07/10/2008 at OR [facility] N/A: Chest DO NOT USE 08/14/2012 [id number] / / [id number] documented as of this encounter Advance Directives Documents on File Type Date Recorded Patient Eap Counselor Expl anation Power of Planning Engineer 06/26/2019 POWER OF A TTORNEY Advance [...] the patient have Health Care Power of Planning Engineer? No Code Status History Code Status [...] patient or by statute hierarchy) Care Teams Importer Or Exporter Relationship Specialty Start Date End Date Nicola Prado MD [address] [place] [address] [place] [phone] PCP - General Family Medicine 06/19/21 documented as of this encounter
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
--- OUTSIDE RECORDS SUMMARY | 2023-02-03 20:32 | External Medical Summary ---
Author Name Unknown Address Unknown Organization [id number]:[facility] [place] [address] [place] [address] Laboratory Report Ordering Provider Test Date Status [place] 10/11/2022 11:06:58 Final Observation Date Value Abnormality Reference (Units ) Status SYNC LEUKOCYTES IN BLOOD BY AUTOMATED COUNT 10/11/2022 11:06:58 12.21 Above high normal 4.00-10.80 (K/uL) Final Segs 10/11/2022 11:06:58 71.2 40.0-75.0 (%) Final Lymphs % 10/11/2022 11:06:58 16.5 Below low normal 18.0-42.0 (%) Final Monos 10/11/2022 11:06:58 4.2 1.0-11.0 (%) Final Eosinophils 10/11/2022 11:06:58 7.8 Above high normal 0.0-6.0 (%) Final Basos 10/11/2022 11:06:58 0.3 0.0-2.0 (%) Final Absolute Segs 10/11/2022 11:06:58 8.69 Above high normal 1.80-7.70 (K/uL) Final Lymphs, absolute 10/11/2022 11:06:58 2.02 1.00-4.80 (K/ul) Final Monos, Abs 10/11/2022 11:06:58 0.51 0.00-1.10 (K/uL) Final Eos, Abs 10/11/2022 11:06:58 0.95 Above high normal 0.00-0.70 (K/uL) Final Basos, Abs 10/11/2022 11:06:58 0.04 0.00-0.20 (K/uL) Final Performing Location [facility] [place] [address] [place] [address]
--- OUTSIDE RECORDS SUMMARY | 2023-02-03 20:32 | External Medical Summary | Summary of Care ---
Author Name Unknown Organization [facility] Address [address] [place] [address] Phone [phone] Care Team Providers Care Corking Machine Operator Name Role Phone Nicola Prado MD Primary Care Provide r Encounter Details Date Type Department Care Team Description 10/08/2022 Result Scan Unspecified Department Nhan Gomes MD [address] [place] [address] <No scans attached> Allergies Active Allergy Reactions Severity Noted Date Comments Hydromorphone High 09/20/2021 Other reaction(s): Nausea Other reaction(s): Nausea 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/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 Other reaction(s): AMS Other reaction(s): AMS Prasugrel 04/02/2016 bleeding Prednisone High 09/20/2021 Other reaction(s): INCREASE BLOOD SUGAR Other reaction(s): INCREASE BLOOD SUGAR documented as of this encounter (statuses as of 10/08/2022) Medications Medication Sig Dispensed Refills Start Date [...] mouth daily. 30 Tablet 11 04/27/2021 Active Sertraline HCl 50 MG Oral Tablet (Zoloft)Indications :Outbursts of anger,Current mild episode of major depressive disorder without prior episode (HCC) Take 1 tablet by mouth daily in the morning. 30 Tablet 1 05/11/2021 Active Additional Information Patient not taking.Reported on 10/06/2022 Betamethasone Dipropionate 0.05 % External OintmentIndications :Plaque psoriasis,Asteatoti c eczema Apply 2x daily to rash on back/abdomen/arms/ legs until resolved, then when flaring again 100 g 0 05/11/2021 Active Probiotic Daily Oral Capsule Take by mouth 1 Capsule in the morning. 0 Active Losartan Potassium 25 MG Oral Tablet (Cozaar) Take by mouth 1 Tablet in the morning. 30 Tablet 6 06/26/2021 Active Vitamin D3 1.25 MG (96561 UT) Oral Capsule Take 1 Capsule by [...] for 90 day supply. 0 01/05/2022 Active Atorvastatin Calcium 80 MG Oral Tablet (Lipitor)Indication s:Dyslipidemia, goal LDL below 70 Take 1 Tablet by mouth daily. 90 Tablet 2 01/25/2022 Active Isosorbide Mononitrate ER 30 MG Oral Tablet Extended Release 24 Hour (Imdur) Take 1 Tablet by mouth daily. In the morning. 90 Tablet 3 03/10/2022 Active NovoLOG FlexPen 100 UNIT/ML Subcutaneous Solution [...] Tablet 1 05/05/2022 Active Easy Touch Pen [place] 31G X 8 MM (Insulin Pen Needle)Indications: Type 2 diabetes mellitus with hemoglobin A1c goal of less than 8.0% ([facility]),Type 2 diabetes mellitus with stage 4 chronic kidney disease, unspecified whether terminal operations manager insulin use ([facility]) Use up to six times daily with insulin. 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 4 mL 1 08/04/2022 Active Octreotide Acetate 50 MCG/ML Injection Solution (Sandostatin) Inject 50mcg under the skin in the morning and the evening 180 mL 1 09/01/2022 Active BD TB Syringe 27G X 1/2" 1 ML (Tuberculin Syringe) Use twice daily to inject octreotide 180 Each 1 09/01/2022 Active Ezetimibe 10 MG Oral Tablet (Zetia)Indications: Dyslipidemia, goal LDL below 70,Atherosclerosis of [place] coronary artery of [place] heart without angina pectoris Take 1 Tablet by mouth daily. 90 Tablet 3 09/27/2022 Active Hospital, Clinic, or Other Facility Administered [...] as of this encounter (statuses as of 10/08/2022) Active Problems Problem Noted Date Hypertensive heart [...] urinary tr act symptoms 07/13/2001 Atherosclerosis of [place] co ronary artery of [place] heart without angina pectoris Morbid obesity with BMI of 40.0-44.9, ad ult documented as of this encounter (statuses as of 10/08/2022) Resolved Problems Problem Noted Date Resolved Date [...] MANAGEMENT 07/22/2008 0 Overview: Kianna Lyn RN [phone] Examination following surgery 07/11/2008 Difficult intubation 07/10/2008 02/19/2020 Overview: Patient seen and examined in OR#1.Possible difficult intubation.TM distance about 5 cms.MP 3-4. Will plan FOB electively Due to current situation. EXAMINATION OF PARTICIPANT IN CLINICAL TRIAL-gen omics 07/04/2008 05/30/2009 Overview: Renamed Per Clinical Trials Billing Project. Study Titile: Genomic Markers for Patients with Cardiovascular Disease Project #[id number] PI: Miriam Roque MD Please call [phone] with study related questions Chronic coronary artery [...] at goal 07/04/2008 9 GENOMICS CARDIO RESEARCH OTHER*[id number] 200803/23/2016 Overview: Renamed Per Clinical Trials Billing Project. Study Titile: Genomic Markers for Patients with Cardiovascular Disease Project #[id number] PI: Miriam Roque MD Please call [phone] with study related questions Kidney disease, chronic, [...] IMPOTENCE, ORGANIC ORIGN 021 Iron deficiency anemia 11/16/201 2 BMI 40.0-44.9, adult 04/29/2017 Overview: Per Obesity protocol #1 CKD (chronic kidney disease), stage IV 05/29/2020 DM type 2 causing CKD stage 4 documented as of this encounter (statuses as of 10/08/2022) Immunizations Name Administration Dates Next Due COVID-19 [...] Encounters Date Type Specialty Care Team Description 10/11/2022 Office Visit Sleep Disorders Eulalia Milligan DO [address] [place] [address] 10/12/2022 Office Visit Nephrology Quin Narvaez MD [address] [place] [address] 10/21/2022 Office Visit Family Medicine Nicola Prado MD [address] [place] [address] [place] [address] 10/22/2022 Cardiac Studies Cardiology [facility] [address] [facility] [place] [address] 11/17/2022 Office Visit [address] [place] [address] 11/30/2022 Office Visit Urology Denny Armando MD [address] [facility] [place] [address] [place] [address] 12/20/2022 Office Visit Dermatology Meron Aragon PA-C [address] [place] [address] [place] [address] 01/24/2023 Office Visit Rheumatology Ashley Mancilla PA-C 03/04/2023 Office Visit Gastroenterology Marielena Hall CRNP [address] [place] [address] 03/29/2023 Office Visit Cardiology Blair Hannah PA-C [address] [place] [address] 06/02/2023 Nurse Only Ancillary Neeraj, Nurse Annual [address] [place] [address] Scheduled Procedures Name Priority Associated Diagnoses Date/Ti [...] IN PAST YEAR FOR COPD 10/23/2022 10/23/2021 GFR 04/06/2023 10/04/2022, 08/15, 08/11/2022, Additional history exists HbA1c 04/08/2023 10/06/2022, 03/0 [...] this encounter Medical Devices Implanted Type Area Obstetrics/Gynecology Nurse Device Identifier Shelf Expiration Date Model / Serial / Lot Sut Steel 6 [id number] - [id number] Implanted:Q[place] 6 [place] [facility] [place]: Chest DO NOT USE 08/14/2012 [id number] / / [id number] documented as of this encounter Procedures Procedure Name Priority Date/Time Associated Diagnosis Comments CARDIOLOGY SCANNED RESULT 10/08/2022 documented in this encounter Results * CARDIOLOGY SCANNED RESULT (10/08/2022) 10/08/2022 Nhan Gomes MD OTHER documented in this encounter Advance Directives Documents on File Type Date Recorded Patient Electrical Intern Expl anation Power of Spray Unit Feeder 06/26/2019 POWER OF A TTORNEY Advance [...] the patient have Health Care Power of Spray Unit Feeder? No Code Status History Code Status [...] patient or by statute hierarchy) Care Teams Corking Machine Operator Relationship Specialty Start Date End Date Nicola Prado MD [address] [place] [address] [place] [address] PCP - General Family Medicine 06/19/21 documented as of this encounter
--- OUTSIDE RECORDS SUMMARY | 2023-02-03 20:32 | External Medical Summary | Summary of Care ---
Author Name Unknown Organization [facility] Address [address] [place] [address] Phone [phone] Care Team Providers Care Intelligence Consultant Name Role Phone Nicola Prado MD Primary Care Provide r Reason for Visit * Reason Comments Outpatient Testing Encounter Details Date Type Department Care Team Description 10/11/2022 Laboratory Laboratory, [facility] [address] [place] [address] [facility] [address] [place] [address] Arrived Allergies Active Allergy Reactions Severity Noted Date Comments Hydromorphone High 09/20/2021 Other reaction(s): Nausea Other reaction(s): Nausea 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/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 Other reaction(s): AMS Other reaction(s): AMS Prasugrel 04/02/2016 bleeding Prednisone High 09/20/2021 Other reaction(s): INCREASE BLOOD SUGAR Other reaction(s): INCREASE BLOOD SUGAR documented as of this encounter (statuses as of 10/11/2022) Medications Medication Sig Dispensed Refills Start Date [...] 30 Tablet 6 06/26/2021 Active Vitamin D3 125 MCG (5000 UT) [...] of less than 8.0% ([facility]) 3-4 times a day 450 [...] less than 8.0% ([facility]) Inject 110 Units under the skin [...] Tablet 1 05/05/2022 Active Easy Touch Pen Levels 31G X 8 MM (Insulin Pen Needle)Indications: Type 2 diabetes mellitus with hemoglobin A1c goal of less than 8.0% ([facility]),Type 2 diabetes mellitus with stage 4 chronic kidney disease, unspecified whether ad 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 operator insulin use (HCC) Use up to six times daily with insulin. 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[facility]),H/O psoriasis Inject 50 mg under the [...] (Zetia)Indications: Dyslipidemia, goal LDL below 70,Atherosclerosis of [place] coronary artery of [place] heart without angina pectoris Take 1 Tablet [...] as of this encounter (statuses as of 10/11/2022) Active Problems Problem Noted Date Hypertensive heart [...] 07/10 Atrioventricular block, Mobitz type 1, W omerkebach 06/09/2020 Vitamin B12 deficiency 05/30/2020 Polyarticular psoriatic [...] urinary tr act symptoms 07/13/2001 Atherosclerosis of [place] co ronary artery of [place] heart without angina pectoris Morbid obesity with BMI of 40.0-44.9, ad ult documented as of this encounter (statuses as of 10/11/2022) Resolved Problems Problem Noted Date Resolved Date [...] aero chamber. Test performed by [facility]ori [facility]AMP[facility] SECURITY DIRECTOR CPFT Body mass index (BMI) of 45.0 [...] MANAGEMENT 07/22/2008 0 Overview: Kianna Lyn, RN [phone] Examination following surgery 07/11/2008 Difficult intubation 07/10/2008 02/19/2020 Overview: Patient seen and examined in OR#1.Possible difficult intubation.TM distance about 5 cms.MP 3-4. Will plan FOB electively Due to current situation. EXAMINATION OF PARTICIPANT IN CLINICAL TRIAL-gen omics 07/04/2008 05/30/2009 Overview: Renamed Per Clinical Trials Billing Project. Study Titile: Genomic Markers for Patients with Cardiovascular Disease Project #[id number] PI: Miriam Roque MD Please call [phone] with study related questions Chronic coronary artery [...] at goal 07/04/2008 9 GENOMICS CARDIO RESEARCH OTHER*[id number] 200803/23/2016 Overview: Renamed Per Clinical Trials Billing Project. Study Titile: Genomic Markers for Patients with Cardiovascular Disease Project #[id number] PI: Miriam Roque MD Please call [phone] with study related questions Kidney disease, chronic, [...] as of this encounter (statuses as of 10/11/2022) Immunizations Name Administration Dates Next Due COVID-19 [...] Eulalia Milligan DO [address] [place] [address] Arrived 10/12/2022 [facility] [address] 10/21/2022 Office Visit Family Medicine Nicola Prado MD [address] [place] [address] [place] [address] 10/22/2022 Cardiac Studies Cardiology [facility] [address] [place] [address] 11/17/2022 Office Visit [address] [place] [address] 11/30/2022 Office Visit Urology Denny Armando MD [address] [place] [address] [place] [address] 12/20/2022 Office Visit Dermatology Meron Aragon PA-C [address] [place] [address] [place] [address] 01/24/2023 Office Visit Rheumatology Ashley Mancilla PA-C 03/04/2023 Office Visit Gastroenterology Marielena Hall CRNP [address] [place] [address] 03/29/2023 Office Visit Cardiology Blair Hannah PA-[place] [address] [place] [address] 06/02/2023 Nurse Only Ancillary Neeraj Nurse Annual [address] [place] [address] Scheduled Procedures Name Priority Associated Diagnoses Date/Ti [...] this encounter Medical Devices Implanted Type Area Newspaper Editor Device Identifier Shelf Expiration Date Model / Serial / Lot Sut Steel 6 [id number] - [id number] Implanted:Qty: 6 on 07/10/2008 at [place] [facility] [place] [facility] [place]: Chest DO NOT USE 08/14/2012 [id number] / / [id number] documented as of this encounter Advance Directives Documents on File Type Date Recorded Patient Radiology Specialist Expl anation Power of White Goods Appliance Tech 06/26/2019 POWER OF A TTORNEY Advance Directives [...] the patient have Health Care Power of White Goods Appliance Tech? No Code Status History Code Status Date [...] patient or by statute hierarchy) Care Teams Intelligence Consultant Relationship Specialty Start Date End Date Nicola Prado MD [address] [place] [address] [place] [address] PCP - General Family Medicine 06/19/21 documented as of this encounter
--- OUTSIDE RECORDS SUMMARY | 2023-02-03 20:32 | External Medical Summary ---
Author Name Unknown Address Unknown Organization [facility] [place] [address] [place] [address] Laboratory Report Ordering Provider Test Date Status [place] [place] 10/11/2022 11:06:58 Final Observation Date Value Abnormality Reference (Units ) Status WBC, Total 10/11/2022 11:06:58 12.21 Above high normal 4 .00-10.80 (K/uL) Final RBC 10/11/2022 11:06:58 3.61 4.50-5.25 (M/uL) Final Hemoglobin 10/11/2022 11:06:58 11.2 Below low normal 14 .0-16.8 (g/dL) Final HCT 10/11/2022 11:06:58 35.0 Below low normal 40. 0-48.4 (%) Final MCV 10/11/2022 11:06:58 97.0 82.0-99.5 (fL) Final MCH 10/11/2022 11:06:58 31.0 27.0-34.0 (pg) Final MCHC 10/11/2022 11:06:58 32.0 32.0-36.0 (g/dL) Final RDW 10/11/2022 11:06:58 15.9 11.5-15.5 (%) Final Platelets 10/11/2022 11:06:58 191 140-400 (K /uL) Final MPV 10/11/2022 11:06:58 9.7 6.6-11.1 ( fL) Final Performing Location [facility] [place] [address] [place] [address]
--- OUTSIDE RECORDS SUMMARY | 2023-02-03 20:32 | External Medical Summary | Summary of Care ---
Author Name Unknown Organization [facility] Address [address] [place] [address] Phone [phone] Care Team Providers Care Webfocus Developer Name Role Phone Nicola Prado MD Primary Care Provide r Reason for Visit * Reason Comments Follow Up Sleep Apnea Encounter Details Date Type Department Care Team Description 10/11/2022 Office Visit Sleep Disorders [facility] [address] [place] [phone] Eulalia Milligan DO [address] [place] [address] Obstructive sleep apnea*; Chronic respiratory failure with hypoxia (HCC) Allergies Active Allergy Reactions Severity Noted [...] Tablet 1 05/05/2022 Active Easy Touch Pen [place] 31G X 8 MM (Insulin Pen Needle)Indications: Type 2 diabetes mellitus with hemoglobin A1c goal of less than 8.0% (HCC),Type 2 diabetes mellitus with stage 4 chronic kidney disease, unspecified whether fci insulin use ([facility]) Use up to six times daily with insulin. 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 Test performed by [facility] CP[facility] Body mass index (BMI) of 45.0 [...] (transient ischemic attack) 02/04/2016 11/23/2017 Overview: [facility] Anemia of chronic renal failure 07/30/2015 [...] MANAGEMENT 07/22/2008 0 Overview: Kianna Lyn RN [phone] Examination following surgery 07/11/2008 Difficult intubation 07/10/2008 02/19/2020 Overview: Patient seen and examined in OR#1.Possible difficult intubation.TM distance about 5 cms.MP 3-4. Will plan FOB electively Due to current situation. EXAMINATION OF PARTICIPANT IN CLINICAL TRIAL-gen omics 07/04/2008 05/30/2009 Overview: Renamed Per Clinical Trials Billing Project. Study Titile: Genomic Markers for Patients with Cardiovascular Disease Project #[id number] PI: Miriam Roque MD Please call [phone] with study related questions Chronic coronary artery [...] at goal 07/04/2008 9 GENOMICS CARDIO RESEARCH OTHER*[id number] 200803/23/2016 Overview: Renamed Per Clinical Trials Billing Project. Study Titile: Genomic Markers for Patients with Cardiovascular Disease Project #[id number] PI: Miriam Roque MD Please call [phone] with study related questions Kidney disease, chronic, [...] Sign Reading Time Taken Comments Blood Pressure 132/60 10/11/2022 11:14 AM EDT Pulse 77 10/11/2022 11:14 AM EDT Temperature 35.1 C (95.2 F) 10/11/2022 11:14 AM E DT Respiratory Rate 16 10/11/2022 11:14 AM EDT Oxygen Saturation 97% 10/11/2022 11:14 AM EDT Inhaled Oxygen Concentration - - Weight 116.6 kg (257 lb) 10/11/2022 11:14 AM EDT Height 162.6 cm (5' 4") 10/11/2022 11:14 AM EDT Body Mass Index 44.11 10/11/2022 11:14 AM EDT documented in this encounter Progress Notes * Eulalia Milligan, DO - 10/11/2022 11:45 AM EDT Sleep Medicine Follow-Up HISTORY: Maurisio Beltran is a 82 year old male for follow up of severe KATHE. PSG 06/04/2010: AHI 66.3, SpO2 penny 70%, average SpO2 86%. PAP titration 10/27/2010: 13 cwp. PAP titration 01/30/2019: BiPAP 15/11 cwp for 106.3 min sleep time with residual AHI 2.3, SpO2 penny 86%, time <89% 0.9 min. Noc ox 12/20/2019 on BiPAP and RA: SpO2 penny 82%, time <= 88% 9.2 min. Noc ox 01/23/2020 on BiPAP and RA: SpO2 penny 84%, time <= 88% 87.9 min. Noc ox 03/20-07/04 on BiPAP with 2 L/min: SpO2 penny 82%, time <= 88% 11.1 min. Using BiPAP 16/12 cmH2O with 2 L/min oxygen. He does use oxygen during the day with exertion (also 2 L/min). Seen by me 04/09/22. Using BiPAP with benefit, but he noted increase in evening fatigue. + nocturia.[place] 12, FOSQ 32. Residual AHI 0.7 on BiPAP 16/12 cwp with 2 L/min oxygen. Using BiPAP 16/12 cmH2O with 2 L/min oxygen. His breathing has been worse recently. Has f/u appt schedule next week with PCP for this. Mask: N20 worked great in the sleep lab, but is difficult for him to get arranged. Poor vision makes it difficult to work with the headgear with more than one strap. Titration study 09/16/22: adjusted to 18/14 cwp. 2 L/min oxygen used for full study, SpO2 penny 91%. PLMI 25.9, PLMAI 9.5. Subjective PAP adherence: excellent Daytime sleepiness: yes Drowsy driving: N/A (not driving due to loss of vision) Interface: nasal pillows Mask leak: yes, bothersome Mouth leak: no [place] Sleepiness Scale: 15 [place] Sleepiness Scale Question 10/11/2022 11:21 AM EDT - Filed by Brittany Rodriguez LPN What is the chance you will doze off in the following situation? Sitting and reading No chance of dozing Watching TV High chance of dozing Sitting inactive in a public place, such as a theater or meeting High chance of dozing As a passenger in a car for an hour without a break High chance of dozing Lying down to rest in the afternoon when circumstances permit High chance of dozing When sitting and talking to someone No chance of dozing When sitting quietly after lunch without alcohol High chance of dozing In a car, while stopped for a few minutes in traffic No chance of dozing Score (range: 0 - 24) 15 BiPAP Compliance: Report date: 10/06/22 % total days used: 97% (note: the one day this device was not used was the night of the PAP titration study) % days used > 4 hours: 97% Average hours per day used: 8h 27m Large leak: yes AHI: 0.9 /hr Pressure settin/12 cmH2O Equipment: DME Provider is [facility] Uses a Gradalis 10 Expandlyuto. Patient Active Problem List Diagnosis Code BPH without obstruction/lower urinary tract symptoms N40.0 Psoriasis L40.9 Generalized osteoarthritis M15.9 Iron deficiency anemia due to chronic blood loss D50.0 Atherosclerosis of white [place] coronary artery of white earth heart without angina pectoris I25.10 Aortocoronary bypass status Z95.1 Type 2 diabetes mellitus with hemoglobin A1c goal of less than 8.0% ([facility]) E11.9 Dyslipidemia E78.5 Vitamin D deficiency E55.9 REENA-inhibitor cough R05.8, T46.4X5A Obstructive sleep apnea of adult G47.33 Psoriatic arthropathy ([facility]) L40.50 S/P primary angioplasty with coronary stent Z95.5 Henning's esophagus with dysplasia K22.719 Pulmonary hypertension ([facility]) I27.20 Chronic diastolic heart failure ([facility]) I50.32 Gout M10.9 COPD, group D, by GOLD 2017 classification ([facility]) J44.9 Chronic respiratory failure with hypoxia ([facility]) J96.11 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 Morbid obesity with BMI of 40.0-44.9, adult ([facility]) E66.01, Z68.41 Vitamin B12 deficiency E53.8 Atrioventricular block, Mobitz type 1, Wenckebach I44.1 S/P placement of cardiac pacemaker Z95.0 H/O dysplastic nevus Z86.018 Hx of nonmelanoma skin cancer Z85.828 Elevated prostate specific antigen (PSA) R97.20 Chronic pain of right hip M25.551, G89.29 Leg swelling M79.89 Anemia in stage 4 chronic kidney disease ([facility]) N18.4, D63.1 Macular degeneration of both eyes H35.30 HTN, goal below 140/90 I10 Current mild episode of major depressive disorder without prior episode ([facility]) F32.0 Type 2 diabetes mellitus with stage 4 chronic kidney disease, with long-term current use of insulin([facility]) E11.22, N18.4, Z79.4 CHB (complete heart block) ([facility]) I44.2 Prostate cancer ([facility]) C61 Stage 3b chronic kidney disease ([facility]) N18.32 Plaque psoriasis L40.0 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 ([facility]) I13.0, I50.32, N18.4 PHYSICAL EXAM: BP 132/60 | Pulse 77 | Temp 35.1 C (95.2 F) (Tympanic) | Resp 16 | Ht 1.626 m (5' 4") | Wt 116.6 kg (257 lb) | SpO2 97% | BMI 44.11 kg/m | BSA 2.29 m General: alert, no acute distress, wearing oxygen via NC Neuro: speech clear and appropriate ASSESSMENT/PLAN: Obstructive sleep apnea - severe by AHI criteria - excellent adherence; encourage continued use of BiPAP with all sleep - good objective efficacy of therapy; adjust PAP to 18/14 cmH2O based on titration study (residual REM-related respiratory events at 16/12 cmH2O were seen) - mask fitting -- pt reports a prior style of nasal pillows was easier for him to place & sealed better than the current style. The nasal mask from the sleep lab he has trouble with due to poor vision, more straps on headgear. - DME: [facility] - Routine cleaning and change of supplies as needed. - Continue to avoid driving when feeling sleepy/drowsy. (He no longer drives due to vision loss.) Chronic hypoxic respiratory failure - titration study showed normalized SpO2 with current oxygen setting via PAP. Continue oxygen 2 L/min via BiPAP with all sleep. Follow-up with Sleep Medicine in 1 year, or sooner PRN. Eulalia Milligan DO documented in this encounter Nursing Notes * Brittany Rodriguez LPN - 10/11/2022 11:21 AM EDT Chief Complaint Patient presents with Follow Up Sleep Apnea Cpap DME: [facility] [place] Sleepiness Scale Question 10/11/2022 11:21 AM EDT - Filed by Brittany Rodriguez LPN What is the chance you will doze off in the following situation? Sitting and reading No chance of dozing Watching TV High chance of dozing Sitting inactive in a public place, such as a theater or meeting High chance of dozing As a passenger in a car for an hour without a break High chance of dozing Lying down to rest in the afternoon when circumstances permit High chance of dozing When sitting and talking to someone No chance of dozing When sitting quietly after lunch without alcohol High chance of dozing In a car, while stopped for a few minutes in traffic No chance of dozing Score (range: 0 - 24) 15 documented in this encounter Plan of Treatment Upcoming Encounters Date Type Specialty Care Team Description 10/12/2022 Office Visit Nephrology Quin Narvaez MD [address] [place] [address] 10/21/2022 Office Visit Family Medicine Nicola Prado MD [address] [place] [address] [place] [address] 10/22/2022 Cardiac Studies Cardiology Keith Pickard [facility] [address] [place] [address] 11/17/2022 Office Visit [address] [place] [address] 11/30/2022 Office Visit Urology Denny Armando MD [address] [place] [address] [place] [address] 12/20/2022 Office Visit Dermatology Meron Aragon PA-C [address] [place] [address] [place] [address] 01/24/2023 Office Visit Rheumatology Ashley Mancilla PA-C 03/04/2023 Office Visit Gastroenterology Marielena Hall CRNP [address] [place] [address] 03/29/2023 Office Visit Cardiology Blair Hannah PA-C [address] [place] [address] 06/02/2023 Nurse Only Ancillary [place], Nurse [address] [place] [address] Scheduled Procedures Name Priority Associated Diagnoses Date/Ti [...] this encounter Medical Devices Implanted Type Area Airfield Manager Device Identifier Shelf Expiration Date Model / Serial / Lot Sut Steel 6 [id number] - [id number] Implanted:Qty: 6 on 07/10/2008 at OR [facility] N/A: Chest DO NOT USE 08/14/2012 [id number] / / [id number] documented as of this encounter Visit Diagnoses Diagnosis Obstructive sleep apnea- Primary Obstructive sleep apnea (adult) (pediatric) Chronic respiratory failure with hypoxia (HCC) Chronic respiratory failure documented in this encounter Advance Directives Documents on File Type Date Recorded Patient Activities Assistant Expl anation Power of Field Staff Manager 06/26/2019 POWER OF A TTORNEY Advance [...] patient have Health Care Power of Field Staff Manager? No Code Status History Code Status [...] patient or by statute hierarchy) Care Teams Webfocus Developer Relationship Specialty Start Date End Date Nicola Prado MD [address] [place] [address] [place] [phone] PCP - General Family Medicine 06/19/21 documented as of this encounter
--- OUTSIDE RECORDS SUMMARY | 2023-02-03 20:32 | External Medical Summary ---
Author Name Unknown Address Unknown Organization K01:LABORATORY [facility] - [address] [place] [address] Laboratory Report Ordering Provider Test Date Status DORIS PARISHB 10/11/2022 11:06:58 Final Observation Date Value Abnormality Reference (Units ) Status Iron 10/11/2022 11:06:58 47 45-176 (ug/dL) Final Iron-binding capacity 10/11/2022 11:06:58 198 Below low normal 250-425 (ug/dL) Final Transferrin Sat % 10/11/2022 11:06:58 24 15-55 (%) Final Performing Location [facility] - [address] [place] [address]
--- OUTSIDE RECORDS SUMMARY | 2023-02-03 20:32 | External Medical Summary ---
Author Name Unknown Address Unknown Organization K01:[facility] [address] [place] [address] Laboratory Report Ordering Provider Test Date Status MIKY PARISH 10/11/2022 11:06:58 Final Observation Date Value Abnormality Reference (Units ) Status Ferritin 10/11/2022 11:06:58 470 Above high normal 30 -400 (ng/mL) Final Performing Location [facility] - [address] [place] [address]
--- OUTSIDE RECORDS SUMMARY | 2023-02-03 20:32 | External Medical Summary | Summary of Care ---
Author Name Unknown Organization [facility] Address [address] [place] [address] Phone [phone] Care Team Providers Care Bench Loom Weaver Name Role Phone Nicola Prado MD Primary Care Provide r Reason for Visit * Reason Onset Date Comments Appointment 10/04/2022 Encounter Details Date Type Department Care Team Description 10/04/2022 Telephone Cardiology, [facility] [place] [address] [facility] [address] [facility] [place] [address] Appointment Allergies Active Allergy Reactions Severity Noted Date Comments Hydromorphone High 09/20/2021 Other reaction(s): Nausea Other reaction(s): Nausea 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/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 Other reaction(s): AMS Other reaction(s): AMS Prasugrel 04/02/2016 bleeding Prednisone High 09/20/2021 Other reaction(s): INCREASE BLOOD SUGAR Other reaction(s): INCREASE BLOOD SUGAR documented as of this encounter (statuses as of 10/07/2022) Medications Medication Sig Dispensed Refills Start Date [...] mouth daily. 30 Tablet 11 2 Active Sertraline HCl 50 MG Oral Tablet (Zoloft)Indicati ons:Outbursts of anger,Current mild episode of major depressive disorder without prior episode (HCC) Take 1 tablet by mouth daily in the morning. 30 Tablet 1 2 Active Additional Information Patient not taking.Reported on 10/06/2022 Betamethasone Dipropionate 0.05 % External OintmentIndicati ons:Plaque psoriasis,Asteat otic eczema Apply 2x daily to rash on back/abdomen/ar ms/legs until resolved, then when flaring again 100 g 0 2 Active Probiotic Daily Oral Capsule Take by mouth 1 Capsule in the morning. 0 Active Losartan Potassium 25 MG Oral Tablet (Cozaar) Take by mouth 1 Tablet in the morning. 30 Tablet 6 2 Active Vitamin D3 1.25 MG (92357 UT) Oral Capsule Take 1 Capsule by [...] mouth daily. 90 Tablet 2 2 Active Isosorbide Mononitrate ER 30 MG Oral Tablet Extended Release 24 Hour (Imdur) Take 1 Tablet by mouth daily. In the morning. 90 Tablet 3 3 Active NovoLOG FlexPen 100 UNIT/ML Subcutaneous Solution [...] Tablet 1 3 Active Easy Touch Pen [place] 31G X 8 MM (Insulin Pen Needle)Indicatio ns:Type 2 diabetes mellitus with hemoglobin A1c goal of less than 8.0% ([facility]),Type 2 diabetes mellitus with stage 4 chronic kidney disease, unspecified whether penitentiary insulin use ([facility]) Use up to six times daily with insulin. DXe11.9 600 Each 3 3 Active Albuterol Sulfate HFA 108 (90 Base) MCG/ACT Inhalation Aerosol SolutionIndicati ons:COPD exacerbation ([facility] [...] long-term current use of insulin ([facility]) Inject 1.8 mg under the skin daily. 27 mL 3 3 Active Furosemide 80 MG Oral Tablet (Lasix) Take 1 Tablet by mouth in the morning. 90 Tablet 1 3 Active Etanercept 50 MG/ML Subcutaneous Solution Auto-injector (Enbrel Sureclick)Indica tions:Polyarticu lar psoriatic arthritis ([facility]),H/O psoriasis Inject 50 mg under the skin once a week. 4 mL 1 3 Active Octreotide Acetate 50 MCG/ML Injection Solution (Sandostatin) Inject 50mcg under the skin in the morning and the evening 180 mL 1 3 Active BD TB Syringe 27G X 1/2" 1 ML (Tuberculin Syringe) Use twice daily to inject octreotide 180 Each 1 3 Active Ezetimibe 10 MG Oral Tablet (Zetia)Indicatio ns:Dyslipidemia, goal LDL below 70,Atheroscleros is of [place] coronary artery of [place] heart without angina pectoris Take 1 Tablet by mouth daily. 90 Tablet 3 3 Active Baclofen 20 MG Oral TabletIndication s:Muscle cramps one pill three times a day as needed for tight muscles 30 Tablet 0 2 10/07/19 23 Discontinued(Pat ient preference/disco ntinuation) Simethicone 80 MG Oral Tablet Chewable (Mylicon)Indicat ions:Gastroenter itis Take by mouth 1 Tablet as needed in the morning AND 1 Tablet as needed at noon AND 1 Tablet as needed in the evening AND 1 Tablet as needed before bedtime for Gas. 100 Tablet 0 2 10/07/19 23 Discontinued guaiFENesin ER 600 MG Oral Tablet Extended Release 12 Hour (Mucinex)Indicat ions:COPD exacerbation (HCC),Chronic cough Take by mouth 1 Tablet 2 times a day as needed for Congestion. Take with plenty of water. Do not cut, crush or chew 40 Tablet 2 2 10/07/19 Discontinued Hospital, Clinic, or Other Facility Administered [...] as of this encounter (statuses as of 10/07/2022) Active Problems Problem Noted Date Hypertensive heart [...] urinary tr act symptoms 07/13/2001 Atherosclerosis of [place] co ronary artery of [place] heart without angina pectoris Morbid obesity with BMI of 40.0-44.9, ad ult documented as of this encounter (statuses as of 10/07/2022) Resolved Problems Problem Noted Date Resolved Date [...] attack) 02/04/2016 11/23/2017 Overview: [facility] Anemia of chronic renal failure [...] MANAGEMENT 07/22/2008 0 Overview: Kianna Lyn RN [phone] Examination following surgery 07/11/2008 Difficult intubation 07/10/2008 02/19/2020 Overview: Patient seen and examined in OR#1.Possible difficult intubation.TM distance about 5 cms.MP 3-4. Will plan FOB electively Due to current situation. EXAMINATION OF PARTICIPANT IN CLINICAL TRIAL-gen omics 07/04/2008 05/30/2009 Overview: Renamed Per Clinical Trials Billing Project. Study Titile: Genomic Markers for Patients with Cardiovascular Disease Project #[id number] PI: Miriam Roque MD Please call [phone] with study related questions Chronic coronary artery [...] at goal 07/04/2008 9 GENOMICS CARDIO RESEARCH OTHER*[id number] 200803/23/2016 Overview: Renamed Per Clinical Trials Billing Project. Study Titile: Genomic Markers for Patients with Cardiovascular Disease Project #[id number] PI: Miriam Roque MD Please call [phone] with study related questions Kidney disease, chronic, [...] as of this encounter (statuses as of 10/07/2022) Immunizations Name Administration Dates Next Due COVID-19 mRNA, LNP-s, No Pre serve, 2-Dose Series (Head Held High) 12/09/2020,05/09/2020,04/11/2020 COVID-19, LNP-s, No Preserve , Juan [...] * Telephone Encounter - KATHE Crawley - 10/06/2022 12:19 PM EDT Spoke with pt. Pt is rescheduled for 10/22/22. * Telephone Encounter - Rosa Yun CMA - 10/06/2022 11:54 AM EDT Patient returned call. He is not available 10/08/22, states he already had other appointments in [place] on 10/07 and it will be too expensive for him to travel to [place] again on Tuesday. Please assist with rescheduling. * Telephone Encounter - KATHE Crawley - 10/05/2022 8:35 AM EDT LMOM. * Telephone Encounter - KATHE Crawley - 10/04/2022 12:13 PM EDT Appt cancelled. Will await pt to return call to reschedule. * Telephone Encounter - Priya Horton RN - 10/04/2022 12:08 PM EDT Called, left message for patient to return call. MyChart also sent. Need to cancel/reschedule device clinic appointment 10/07/22 due to veterinary laboratory technician being unavailable. [employer] rep available at on 10/08/2022. Should patient return call, please see if available 10/08/22 and will assist with time. documented in this encounter Plan of Treatment Upcoming Encounters Date Type Specialty Care Team Description 10/11/2022 Office Visit Sleep Disorders Eulalia Milligan DO [address] [place] [address] 10/12/2022 Office Visit Nephrology Quin Narvaez MD [address] [facility] [place] [address] 10/21/2022 Office Visit Family Medicine Nicola Prado MD [address] [place] [address] [place] [address] 10/22/2022 Cardiac Studies Cardiology Keith Pickard [facility] [address] [place] [address] 11/17/2022 Office Visit [address] [place] [address] 11/30/2022 Office Visit Urology Denny Armando MD [address] [place] [address] [place] [address] 12/20/2022 Office Visit Dermatology Meron Aragon PA-C [address] [place] [address] [place] [address] 01/24/2023 Office Visit Rheumatology Ashley Mancilla PA-C 03/04/2023 Office Visit Gastroenterology Marielena Hall CRNP [address] [place] [address] 03/29/2023 Office Visit Cardiology Blair Hannah PA-C [address] [place] [address] 06/02/2023 Nurse Only Ancillary Nurse Neeraj Annual [address] [place] [address] Scheduled Procedures Name Priority Associated Diagnoses Date/Ti [...] this encounter Medical Devices Implanted Type Area School Superintendent Device Identifier Shelf Expiration Date Model / Serial / Lot Lei Agrawal 6 [id number] - [id number] Implanted:Qty: 6 on 07/10/2008 at [place] [facility] N/A: Chest DO NOT USE 08/14/2012 [id number] / / [id number] documented as of this encounter Advance Directives Documents on File Type Date Recorded Patient E Business Project Manager Expl anation Power of Salesperson Hosiery 06/26/2019 POWER OF A TTORNEY Advance Directives [...] the patient have Health Care Power of Salesperson Hosiery? No Code Status History Code Status Date [...] patient or by statute hierarchy) Care Teams Bench Loom Weaver Relationship Specialty Start Date End Date Nicola Prado MD [address] [place] [address] [place] [address] PCP - General Family Medicine 06/19/21 documented as of this encounter
--- OUTSIDE RECORDS SUMMARY | 2023-02-03 20:32 | External Medical Summary | Summary of Care ---
Author Name Unknown Organization [facility] Address [address] [place] [address] Phone [phone] Care Team Providers Care Pumper Hand Name Role Phone Nicola Prado MD Primary Care Provide r Encounter Details Date Type Department Care Team Description 09/21/2022 Result Scan Unspecified Department Blair Hannah, PAJovanniC [address] [place] [address] <No scans attached> Allergies Active Allergy Reactions [...] mouth daily. 90 Tablet 3 12/16/2021 Active AggiosTouch UltraSoft LancetsIndications: Type 2 diabetes mellitus with hemoglobin A1c goal of less than 8.0% ([facility]) Test blood sugar up to five [...] Tablet 1 05/05/2022 Active Easy Touch Pen [place] 31G X 8 MM (Insulin Pen Needle)Indications: Type 2 diabetes mellitus with hemoglobin A1c goal of less than 8.0% (HCC),Type 2 diabetes mellitus with stage 4 chronic kidney disease, unspecified whether intermediate manager insulin use (HCC) Use up to six times daily with insulin. DXe11.9 600 Each 3 05/22/2022 Active Albuterol Sulfate HFA 108 (90 Base) MCG/ACT Inhalation Aerosol SolutionIndications :COPD exacerbation ([facility]),Chronic cough Inhale by mouth 2 Puffs every 4 hours as needed for Cough or Shortness of Breath. Reports doesn't help 18 g 2 05/27/2022 Active Victoza 18 MG/3ML Subcutaneous Solution Pen-injector (Liraglutide)Indica tions:Type 2 diabetes mellitus with hemoglobin A1c goal of less than 8.0% ([facility]),Type 2 diabetes mellitus with stage 4 chronic kidney disease, with long-term current use of insulin ([facility]) Inject 1.8 mg under the skin daily. 27 mL 3 07/23/2022 Active Furosemide 80 MG Oral Tablet (Lasix) Take 1 Tablet by mouth in the morning. 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 4 mL 1 08/04/2022 Active Octreotide Acetate 50 MCG/ML Injection Solution (Sandostatin) Inject 50mcg under the skin in the morning and the evening 180 mL 1 09/01/2022 Active BD TB Syringe 27G X 1/2" 1 ML (Tuberculin Syringe) Use twice daily to inject octreotide 180 Each 1 09/01/2022 Active Hospital, Clinic, or Other Facility Administered [...] urinary tr act symptoms 07/13/2001 Atherosclerosis of [place] co ronary artery of [place] heart without angina pectoris Morbid obesity with [...] use aero chamber. Test performed by Dori NEWSPAPER EDITOR CPFT Body mass index (BMI) of 45.0 [...] MANAGEMENT 07/22/2008 0 Overview: Kianna Lyn, RN [phone] Examination following surgery 07/11/2008 Difficult intubation 07/10/2008 02/19/2020 Overview: Patient seen and examined in OR#1.Possible difficult intubation.TM distance about 5 cms.MP 3-4. Will plan FOB electively Due to current situation. EXAMINATION OF PARTICIPANT IN CLINICAL TRIAL-gen omics 07/04/2008 05/30/2009 Overview: Renamed Per Clinical Trials Billing Project. Study Titile: Genomic Markers for Patients with Cardiovascular Disease Project #[id number] PI: Miriam Roque MD Please call [phone] with study related questions Chronic coronary artery [...] at goal 07/04/2008 9 GENOMICS CARDIO RESEARCH OTHER*[id number] 200803/23/2016 Overview: Renamed Per Clinical Trials Billing Project. Study Titile: Genomic Markers for Patients with Cardiovascular Disease Project #[id number] PI: Miriam Roque MD Please call [phone] with study related questions Kidney disease, chronic, [...] mRNA, LNP-s, No Pre serve, 2-Dose Series (Collective Intellect) 12/09/2020,05/09/2020,04/11/2020 COVID-19, LNP-s, No Preserve , Juan [...] Visit Nephrology [facility]vaez [facility] [address] [facility] [address] 10/21/2022 Office Visit Family Medicine Nicola Prado MD [address] [place] [address] [place] [address] 10/22/2022 Cardiac Studies Cardiology Keith Pickard [facility] [address] [place] [address] 11/17/2022 Office Visit [address] [place] [address] 11/30/2022 Office Visit Urology Denny Armando MD [address] [place] [address] [place] [phone] 12/20/2022 Office Visit Dermatology Meron Aragon PA-C [address] [place] [address] [place] [address] 01/24/2023 Office Visit Rheumatology Ashley Mancilla PA-C 03/04/2023 Office Visit Gastroenterology Marielena Hall CRNP [address] [place] [address] 03/29/2023 Office Visit Cardiology Blair Hannah PA-C [address] [place] [address] 06/02/2023 Nurse Only Ancillary Nurse Neeraj Annual [address] [place] [address] Scheduled Procedures Name Priority Associated Diagnoses Date/Ti [...] this encounter Medical Devices Implanted Type Area Rehabilitation Team Lead Device Identifier Shelf Expiration Date Model / Serial / Lot Sut Nghia 6 [id number] - [id number] Implanted:Qty: 6 on 07/10/2008 at OR [facility] [place] N/A: Chest DO NOT USE 08/14/2012 [id number] / / [id number] documented as of this encounter Procedures Procedure Name Priority Date/Time Associated Diagnosis Comments CARDIOLOGY SCANNED RESULT 09/21/2022 documented in this encounter Results * CARDIOLOGY SCANNED RESULT (09/21/2022) 09/21/2022 Blair Hannah PA-C OTHER documented in this encounter Advance Directives Documents on File Type Date Recorded Patient Director Fundraising Expl anation Power of Chief Operating Engineer 06/26/2019 POWER OF A TTORNEY Advance [...] the patient have Health Care Power of Chief Operating Engineer? No Code Status History Code Status [...] patient or by statute hierarchy) Care Teams Pumper Hand Relationship Specialty Start Date End Date Nicola Prado MD [address] [place] [address] [place] [address] PCP - General Family Medicine 06/19/21 documented as of this encounter
--- OUTSIDE RECORDS SUMMARY | 2023-02-03 20:32 | External Medical Summary | Summary of Care ---
Author Name Unknown Organization [facility] Address [address] [place] [address] Phone [phone] Care Team Providers Care Special Class Welder Name Role Phone Nicola Prado MD Primary Care Provide r Reason for Visit * Reason Comments Medication Discussion Encounter Details Date Type Department Care Team Description 10/06/2022 Office Visit Pharmacy, [address] [place] [address] [place] [address] Encounter for medication review* Allergies Active Allergy Reactions Severity Noted Date [...] 30 Tablet 6 2 Active Vitamin D3 125 MCG (5000 UT) [...] Tablet 1 3 Active Easy Touch Pen [place] 31G X 8 MM (Insulin Pen Needle)Indicatio ns:Type 2 diabetes mellitus with hemoglobin A1c goal of less than 8.0% (HCC),Type 2 diabetes mellitus with stage 4 chronic kidney disease, unspecified whether long-term insulin use ([facility]) Use up to six times daily with insulin. DXe11.9 600 Each 3 3 Active Albuterol Sulfate HFA 108 (90 Base) MCG/ACT Inhalation Aerosol SolutionIndicati ons:COPD exacerbation ([facility]),Chronic [...] Auto-injector (Enbrel Sureclick)Indica tions:Polyarticu lar psoriatic arthritis ([facility]),H/O psoriasis Inject 50 mg under the skin [...] ns:Dyslipidemia, goal LDL below 70,Atheroscleros is of tribe coronary artery of tribe heart without angina pectoris Take 1 Tablet by mouth daily. 90 Tablet 3 3 Active Sertraline HCl 50 MG Oral Tablet (Zoloft)Indicati ons:Outbursts of anger,Current mild episode of major depressive disorder without prior episode ([facility]) Take 1 tablet by mouth daily in the morning. 30 Tablet 1 2 10/12/19 23 Discontinued(Med ication List Clean Up) Baclofen 20 MG Oral TabletIndication s:Muscle cramps [...] urinary tr act symptoms 07/13/2001 Atherosclerosis of tribe co ronary artery of tribe heart without angina pectoris Morbid obesity [...] - - Acute respiratory failure with hypoxemia 07/19/2019 Encounter for surveillance of abnormal nevi [...] ischemic attack) 02/04/2016 11/23/2017 Overview: [facility] Anemia of chronic renal failure 07/30/2015 01/27/2017 [...] MANAGEMENT 07/22/2008 0 Overview: Kianna Lyn, RN [phone] Examination following surgery 07/11/2008 Difficult intubation 07/10/2008 02/19/2020 Overview: Patient seen and examined in OR#1.Possible difficult intubation.TM distance about 5 cms.MP 3-4. Will plan FOB electively Due to current situation. EXAMINATION OF PARTICIPANT IN CLINICAL TRIAL-gen omics 07/04/2008 05/30/2009 Overview: Renamed Per Clinical Trials Billing Project. Study Titile: Genomic Markers for Patients with Cardiovascular Disease Project #[id number] PI: Miriam Roque MD Please call [phone] with study related questions Chronic coronary artery [...] at goal 07/04/2008 9 GENOMICS CARDIO RESEARCH OTHER*[id number] 200803/23/2016 Overview: Renamed Per Clinical Trials Billing Project. Study Titile: Genomic Markers for Patients with Cardiovascular Disease Project #[id number] PI: Miriam Roque MD Please call [phone] with study related questions Kidney disease, chronic, [...] mRNA, LNP-s, No Pre serve, 2-Dose Series (Mimub) 12/09/2020,05/09/2020,04/11/2020 COVID-19, LNP-s, No Preserve , Juan [...] as of this encounter Progress Notes * Karlene Alvarez, [facility] - 10/06/2022 1:00 PM EDT Images from the original note were not included. PHARMACY MTM PROGRESS NOTE [facility] ([facility]) [address] [facility] [place] [address] Service Delivery Delivery Method: Face to Face Outcome: CMR Completed Health Profile Current Conditions: Anemia, COPD, Diabetes, End Stage Renal Disease, Gout, Heart Failure, Heartburn, High Blood Pressure, High Cholesterol, Pain, Psoriasis, and Sleep Disorder Drug allergies & side effects: Review of patient's allergies indicates: Allergen Reactions Hydromorphone Other reaction(s): Nausea Other reaction(s): Nausea Methylprednisolone Steroid psychosis Other reaction(s): AMS Other reaction(s): AMS Prednisone Other reaction(s): INCREASE BLOOD SUGAR Other reaction(s): INCREASE BLOOD SUGAR Prasugrel bleeding Med List Home Medications Provider Albuterol Sulfate (Proventil) (2.5 MG/3ML) 0.083% inhalation solution 2.5 mg Al Mccrary PA-C 2.5 mg, Nebulizer, PRN OtherStarting on Tue05/18/22 at 09, Until Tue05/18/23 at 0925For 365 daysOnly one type of albuterol product should be administered (Nebulizer or Inhaler). Please select and document on the appropriate albuterol product order. Associated Diagnoses: Breathing Albuterol Sulfate (Proventil) (5 MG/ML) 0.5% *conc* inhalation solution 2.5 mg Al J Mccrary, PA-C 2.5 mg, Nebulizer, PRN pft onceStarting on Tue05/18/22 at 09, Until Tue05/18/23 at 0925For 365 daysOnly one type of albuterol product should be administered (Nebulizer or Inhaler). Please select and document on the appropriate albuterol product order. *Dilute with 0.9% saline IF needed Associated Diagnoses: Breathing Albuterol Sulfate HFA 108 (90 Base) MCG/ACT Inhalation Aerosol Solution Nicola Prado MD Inhale by mouth 2 Puffs every 4 hours as needed for Cough or Shortness of Breath. Reports doesn't help Associated Diagnoses: COPD Allopurinol 300 MG Oral Tablet (Zyloprim) Shabbir Avilez MD Take 1 Tablet by mouth daily. Associated Diagnoses: Gout Notes: This prescription was filled on 12/14/2021. Any refills authorized will be placed on file. ASPIRIN 81 MG PO CHEW Emory Triana MD 1 Tab Oral Daily Associated Diagnoses: Heart Atorvastatin Calcium 80 MG Oral Tablet (Lipitor) Nicola Prado MD Take 1 Tablet by mouth daily. Associated Diagnoses: Cholesterol BD TB Syringe 27G X 1/2" 1 ML (Tuberculin Syringe) FRANCHESKA Collins Use twice daily to inject octreotide Associated Diagnoses: -- Betamethasone Dipropionate 0.05 % External Ointment Meron Aragon PA-C Apply 2x daily to rash on back/abdomen/arms/legs until resolved, then when flaring again Associated Diagnoses: Plaque psoriasis CPAP History Per Patient Associated Diagnoses: Sleep apnea Diclofenac Sodium 1 % External Gel (Voltaren) Surendra Montgomery DO Apply topically to affected area 2 g in the morning AND 2 g before bedtime. Apply to affected area of lower back up to twice a day as needed for pain. Wash hands after.. Associated Diagnoses: Pain Easy Touch Pen [place] 31G X 8 MM (Insulin Pen Needle) Pietro Levy MD Use up to six times daily with insulin. DXe11.9 Associated Diagnoses: Type 2 DM Etanercept 50 MG/ML Subcutaneous Solution Auto-injector (Enbrel Sureclick) Kristen Das PA-C Inject 50 mg under the skin once a week. Associated Diagnoses: 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HCC), H/O psoriasis Ezetimibe 10 MG Oral Tablet (Zetia) Blair Hannah PA-C Take 1 Tablet by mouth daily. Associated Diagnoses: Cholesterol Fluticasone Propionate 50 MCG/ACT Nasal Suspension (Flonase) History Per Patient Associated Diagnoses: Allergies Folic Acid 1 MG Oral Tablet Enrrique Christine MD Take 1 TabLET by mouth daily. Associated Diagnoses: Supplement Furosemide 80 MG Oral Tablet (Lasix) Nicola Prado MD Take 1 Tablet by mouth in the morning. Associated Diagnoses: Fluid Notes: This prescription was filled on 08/03/2022. Any refills authorized will be placed on file. Isosorbide Mononitrate ER 30 MG Oral Tablet Extended Release 24 Hour (Imdur) Nicola Prado MD Take 1 Tablet by mouth daily. In the morning. Associated Diagnoses: Heart Notes: This prescription was filled on 03/09/2022. Any refills authorized will be placed on file. Losartan Potassium 25 MG Oral Tablet (Cozaar) Verito Jovel PA-C Take by mouth 1 Tablet in the morning. Associated Diagnoses: Blood pressure Nitroglycerin 0.4 MG Sublingual Tablet Sublingual (Nitrostat) Nicola Prado MD 1 every 5 minutes as needed with chest pain up to 3 doses in 15 minutes Associated Diagnoses: Chest pain Notes: Discharge Order: NovoLOG FlexPen 100 UNIT/ML Subcutaneous Solution Pen-injector (insulin aspart) -- Associated Diagnoses: Type 2 diabetes Notes: Uses on sliding scale, pt takes 35units today Octreotide Acetate 50 MCG/ML Injection Solution (Sandostatin) FRANCHESKA Collins Inject 50mcg under the skin in the morning and the evening Associated Diagnoses: -- Notes: Pt stating that he is having issues with very painful areas when injected Omeprazole 20 MG Oral Capsule Delayed Release (PriLOSEC) FRANCHESKA Collins Take 1 Capsule BY MOUTH in the morning AND 1 Capsule before bedtime. Associated Diagnoses: Stomach OneTouch Ultra In Vitro Strip (Glucose Blood) Nicola Prado MD 3-4 times a day Associated Diagnoses: Type 2 diabetes OneTouch UltraSoft Lancets Nicola Prado MD Test blood sugar up to five times daily; dx E11.9 Associated Diagnoses: Type 2 diabetes oxygen IN GAS FRANCHESKA Cook Use 2 L/min(Oxygen) as directed daily. 2.5 LPMBled through bipap And 2 LPM with exertion DME: [facility] Patient taking differently: Use 2 L/min(Oxygen) as directed in the morning. 2.5 LPMBled through bipap And 2 LPM with exertion. (Patient is using 2 LPM with CPAP, and 3 LPM with exertion/activity) DME: [facility]. Associated Diagnoses: -- Notes: 2L at night and then with ambulation during the day if needed. Probiotic Daily Oral Capsule History Per Patient Associated Diagnoses: Supplement Sertraline HCl 50 MG Oral Tablet (Zoloft) Nicola Prado MD Take 1 tablet by mouth daily in the morning. Patient not taking: Reported on 10/06/2022 Tamsulosin HCl 0.4 MG Oral Capsule (Flomax) Denny Armando MD Take 1 Capsule by mouth in the morning. Associated Diagnoses: Lower urinary tract symptoms Tresiba FlexTouch 200 UNIT/ML Subcutaneous Solution Pen-injector (Insulin Degludec) -- Associated Diagnoses: Type 2 diabetes Notes: Pt states he has been taking 130U once in the morning. Triamcinolone Acetonide 0.1 % External Ointment (Aristocort) Meron Aragon PA-C Apply to rash on trunk/arms/legs 2x daily (when thinner and less noticeable and less bothersome) until resolved, then when flaring Associated Diagnoses: Plaque psoriasis Victoza 18 MG/3ML Subcutaneous Solution Pen-injector (Liraglutide) Nicola Prado MD Inject 1.8 mg under the skin daily. Associated Diagnoses: Type 2 diabetes Notes: This prescription was filled on 07/23/2022. Any refills authorized will be placed on file. Vitamin D3 1.25 MG (95298 UT) Oral Capsule History Per Patient Associated Diagnoses: Supplement Xiidra 5 % Ophthalmic Solution History Per Patient Associated Diagnoses: -- Baclofen 20 MG Oral Tablet Levy Stout MD one pill three times a day as needed for tight muscles Patient not taking: Reported on 10/06/2022 Associated Diagnoses: Muscle cramps guaiFENesin ER 600 MG Oral Tablet Extended Release 12 Hour (Mucinex) Nicola Prado MD Take by mouth 1 Tablet 2 times a day as needed for Congestion. Take with plenty of water. Do not cut, crush or chew Patient not taking: Reported on 10/06/2022 Associated Diagnoses: COPD exacerbation (HCC), Chronic cough Simethicone 80 MG Oral Tablet Chewable (Mylicon) Nicola Prado MD Take by mouth 1 Tablet as needed in the morning AND 1 Tablet as needed at noon AND 1 Tablet as needed in the evening AND 1 Tablet as needed before bedtime for Gas. Patient not taking: Reported on 10/06/2022 Associated Diagnoses: Gastroenteritis TIPs 1) Needs Drug Therapy - Beta Chyna (CAD) Per chart review discontinued due to hypotension/bradycardia. Deferred to cardiology at this time. Action Plan It is important to monitor your blood sugar regularly. Make sure to record your readings in a log and take them with you to your appointments. Providing these readings to your healthcare providers can help them better control your blood sugar. In order to maintain a good diabetic diet, your diet should consist of items such as fruits, vegetables, whole grains, and low fat milk, fish and white meats. Limiting your carbohydrate intake (non-whole grain breads and pastas, sweets, and alcohol) will help you achieve your glucose goals. When your blood sugar is too high or too low your body could experience symptoms. Signs include: dizziness, shakiness, feeling hungry, feeling thirsty, sweatiness, nervousness, irritability, weakness, sleepiness, blurred vision, increased urination, lack of coordination. If you notice any of these signs, it is a great time to check your blood sugar. Takeaway Service Information Date CMR was completed: 10/06/2022 Who was the recipient of the CMR service: Patient Was the patient in a long-term care (LTC) facility when the CMR was completed? No Pharmacist's availability for questions: Tuesday-Tuesday 8:00am-4:30pm Takeaway Information Will the Patient Takeaway be sent to the Patient or someone else? Patient Language Template for the Patient Takeaway: Malawian Additional notes for the Patient Takeaway (optional): n/a I attest that I have reviewed and updated the patient's conditions, allergies, and medications to the best of my ability. Patient Access: Is patient utilizing [facility]? No; prefers local pharmacy Is patient utilizing [facility]? Yes Additional Call Notes 30 min Not currently taking Sertraline, called and confirmed with pharmacy. Routing to PCP to make aware to discuss further at upcoming visit. Karlene Alvarez RPh Clinical Pharmacist [facility] ([facility]) 10/06/2022, 1:00 PM documented in this encounter Miscellaneous Notes * Addendum Note - Jack Simms RPh - 10/11/2022 8:51 AM EDTAddended by: JACK SIMMS on: 10/11/2022 08:51 AM Modules accepted: Orders documented in this encounter Plan of Treatment Upcoming Encounters Date Type Specialty Care Team Description 10/11/2022 Office Visit Sleep Disorders Eulalia Milligan DO [address] [place] [address] 10/12/2022 Office Visit Nephrology Quin Narvaez MD [address] [facility] [place] [address] 10/21/2022 Office Visit Family Medicine Nicola Prado MD [address] [place] [address] [place] [address] 10/22/2022 Cardiac Studies Cardiology [facility] [address] [place] [address] 11/17/2022 Office Visit Pharmacy [address] [place] [address] 11/30/2022 Office Visit Urology Denny Armando MD [address] [facility] [address] [place] [phone] 12/20/2022 Office Visit Dermatology Meron Aragon PA-C [address] [place] [address] [place] [address] 01/24/2023 Office Visit Rheumatology Ashley Mancilla PA-C 03/04/2023 Office Visit Gastroenterology Marielena Hall CRNP [address] [place] [address] 03/29/2023 Office Visit Cardiology Blair Hannah PA-C [address] [place] [address] 06/02/2023 Nurse Only Ancillary Neeraj, Nurse [facility] [address] [place] [address] [place] [address] Scheduled Procedures Name Priority Associated Diagnoses Date/Ti [...] this encounter Medical Devices Implanted Type Area Curtain Cutter Device Identifier Shelf Expiration Date Model / Serial / Lot Sut Steel 6 M654g - [id number] Implanted:Qty: 6 on 07/10/2008 at OR [facility] [place] N/A: Chest DO NOT USE 08/14/2012 [id number] / / [id number] documented as of this encounter Visit Diagnoses Diagnosis Encounter for medication review- Primary Encounter for long-term (current) use of other medications documented in this encounter Advance Directives Documents on File Type Date Recorded Patient Ict Project Manager Expl anation Power of Architectural Modeler 06/26/2019 POWER OF A TTORNEY Advance Directives [...] the patient have Health Care Power of Architectural Modeler? No Code Status History Code Status Date [...] patient or by statute hierarchy) Care Teams Special Class Welder Relationship Specialty Start Date End Date Nicola Prado MD [address] [place] [address] [place] [address] PCP - General Family Medicine 06/19/21 documented as of this encounter
--- OUTSIDE RECORDS SUMMARY | 2023-02-03 20:32 | External Medical Summary ---
Author Name Unknown Address Unknown Organization K0[facility] [address] [place] [id number] Laboratory Report Ordering Provider Test Date Status [facility] [place] 10/11/2022 11:06:58 Final Observation Date Value Abnormality Reference (Units ) Status BUN 10/11/2022 11:06:58 27 Above high normal 6-20 (mg/dL) Final Creatinine 10/11/2022 11:06:58 2.0 Above high normal 0.6-1.2 (mg/dL) Final Glomerular filtration rate/1.73 sq M.predicted [Volume Rate/Area] in Serum, Plasma or Blood by Creatinine-based formula (CKD-EPI) 10/11/2022 11:06:58 33 Below low normal >=60 (mL/min) Final eGFR is calculated based on the CKD-EPI 2020 equation SODIUM 10/11/2022 11:06:58 138 135-146 (m mol/L) Final Potassium 10/11/2022 11:06:58 3.8 3.5-5.1 (m mol/L) Final Cl 10/11/2022 11:06:58 99 98-107 (mm ol/L) Final CO2 10/11/2022 11:06:58 27 22-32 (mmo l/L) Final Anion gap 10/11/2022 11:06:58 12 7-15 (mmol /L) Final Glucose 10/11/2022 11:06:58 84 70-120 (mg /dL) Final Albumin 10/11/2022 11:06:58 3.8 3.8-5.0 (g /dL) Final AST (Aspartate aminotransferase) 10/11/2022 11:06:58 21 10-50 (U/L) Final Alk Phos 10/11/2022 11:06:58 128 35-130 (U/ L) Final Bilirubin, Total 10/11/2022 11:06:58 0.6 <=1 .2 (mg/dL) Final Calcium 10/11/2022 11:06:58 9.0 8.4-10.2 ( mg/dL) Final Protein 10/11/2022 11:06:58 6.8 6.0-8.3 (g /dL) Final ALT (Alanine aminotransferase) 10/11/2022 11:06:58 21 10-50 (U/L) Final Performing Location [facility] [address] [facility] [address]
--- OUTSIDE RECORDS SUMMARY | 2023-02-03 20:32 | External Medical Summary | Summary of Care ---
Author Name Unknown Organization [facility] Address [address] [place] [address] Phone [phone] Care Team Providers Care Medical Records Secretary Name Role Phone Nicola Prado MD Primary Care Provide r Reason for Visit * Reason Comments Review Sleep Study PAP titration Encounter Details Date Type Department Care Team Description 09/16/2022 Office Visit Sleep Lab, [address] [place] [address] Eulalia Milligan, DO [address] [place] [address] Obstructive sleep apnea* Allergies Active Allergy Reactions Severity Noted Date [...] of less than 8.0% ([facility]) Test blood sugar up to five times daily; dx E11.9 450 Each 3 12/17/2021 Active OneTouch Ultra In Vitro Strip (Glucose Blood)Indications:T ype 2 diabetes mellitus with hemoglobin A1c goal of less than 8.0% ([facility]) 3-4 times a day 450 Strip [...] of less than 8.0% ([facility]) 12 units with breakfast and supper PLUS correction factor of 1:25 if over 140 mg/dL 110 mL 3 03/23/2022 Active Tresiba FlexTouch 200 UNIT/ML Subcutaneous Solution Pen-injector (Insulin Degludec)Indication s:Type 2 diabetes mellitus with hemoglobin A1c goal of less than 8.0% ([facility]) Inject 110 Units under the skin [...] Tablet 1 05/05/2022 Active Easy Touch Pen [place] 31G X 8 MM (Insulin Pen Needle)Indications: Type 2 diabetes mellitus with hemoglobin A1c goal of less than 8.0% ([facility]),Type 2 diabetes mellitus with stage 4 chronic kidney disease, unspecified whether termite helper insulin use ([facility]) Use up to six times daily with insulin. DXe11.9 600 Each 3 05/22/2022 Active Albuterol Sulfate HFA 108 (90 Base) MCG/ACT Inhalation Aerosol SolutionIndications :COPD exacerbation ([facility]),Chronic cough Inhale by mouth 2 Puffs every 4 hours as needed for Cough or Shortness of Breath. Reports doesn't help 18 g 2 05/27/2022 Active Victoza 18 MG/3ML Subcutaneous Solution Pen-injector (Liraglutide)Indica tions:Type 2 diabetes mellitus with hemoglobin A1c goal of less than 8.0% ([facility]),Type 2 diabetes mellitus with stage 4 chronic kidney disease, with long-term current use of insulin ([facility]) Inject 1.8 mg under the skin daily. 27 mL 3 07/23/2022 Active Furosemide 80 MG Oral Tablet (Lasix) Take 1 Tablet by mouth in the morning. 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 Will plan FOB electively Due to current situation. EXAMINATION OF PARTICIPANT IN CLINICAL TRIAL-gen omics 07/04/2008 05/30/2009 Overview: Renamed Per Clinical Trials Billing Project. Study Titile: Genomic Markers for Patients with Cardiovascular Disease Project #[id number] PI: Miriam Roque MD Please call [phone] with study related questions Chronic coronary artery [...] at goal 07/04/2008 9 GENOMICS CARDIO RESEARCH OTHER*[id number] 200803/23/2016 Overview: Renamed Per Clinical Trials Billing Project. Study Titile: Genomic Markers for Patients with Cardiovascular Disease Project #[id number] PI: Miriam Roque MD Please call [phone] with study related questions Kidney disease, chronic, [...] as of this encounter Progress Notes * Eulalia Milligan DO - 10/11/2022 12:46 PM EDT PSG report to be scanned into [facility]. Appointment 10/11/22 to review PSG results. documented in this encounter Plan of Treatment Upcoming Encounters Date Type Specialty Care Team Description 10/12/2022 Office Visit Nephrology Quin Narvaez MD [address] [place] [address] 10/21/2022 Office Visit Family Medicine Nicola Prado MD [address] [place] [address] [place] [address] 10/22/2022 [facility]iac Studies [facility] [place] [address] 11/17/2022 Office Visit [address] [place] [address] 11/30/2022 Office Visit Urology Denny Armando MD [address] [facility] [place] [address] [place] [address] 12/20/2022 Office Visit Dermatology Meron Aragon PA-C [address] [place] [address] [place] [address] 01/24/2023 Office Visit Rheumatology Ashley Mancilla PA-C 03/04/2023 Office Visit Gastroenterology Marielena Hall CRNP [address] [place] [address] 03/29/2023 Office Visit Cardiology Blair Hannah PA-C [address] [place] [address] 06/02/2023 Nurse Only Ancillary [place], Nurse Annual [address] [place] [address] Scheduled Procedures Name Priority Associated Diagnoses Date/Ti [...] this encounter Medical Devices Implanted Type Area Hydrant Setter Device Identifier Shelf Expiration Date Model / Serial / Lot Sut Steel 6 [id number] - [id number] Implanted:Qty: 6 on 07/10/2008 at [place] [facility] [place] N/A: Chest DO NOT USE 08/14/2012 [id number] / / [id number] documented as of this encounter Visit Diagnoses Diagnosis Obstructive sleep apnea- Primary Obstructive sleep apnea (adult) (pediatric) documented in this encounter Advance Directives Documents on File Type Date Recorded Patient 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 No Code Status History Code Status Date [...] or by statute hierarchy) Care Teams Medical Records Secretary Relationship Specialty Start Date End Date Nicola Prado MD [address] [place] [address] [place] [address] PCP - General Family Medicine 06/19/21 documented as of this encounter
--- OUTSIDE RECORDS SUMMARY | 2023-02-03 20:32 | External Medical Summary | Summary of Care ---
Author Name Unknown Organization [facility] Address [address] [place] [address] Phone [phone] Care Team Providers Care Continuous Still Operator Name Role Phone Nicola Prado MD Primary Care Provide r Encounter Details Date Type Department Care Team Description 10/11/2022 Telephone Pulmonary Medicine, [facility] [address] [place] [address] Eulalia Milligan DO [address] [place] [address] Allergies Active Allergy Reactions Severity Noted Date [...] of less than 8.0% ([facility]) Test blood sugar up to five times [...] Tablet 1 05/05/2022 Active Easy Touch Pen [place] 31G X 8 MM (Insulin Pen Needle)Indications: [...] Inhalation Aerosol SolutionIndications :COPD exacerbation ([facility]),Chronic cough Inhale by mouth 2 Puffs every 4 hours as needed for Cough or Shortness of Breath. Reports doesn't help 18 g 2 05/27/2022 Active Victoza 18 MG/3ML Subcutaneous Solution Pen-injector (Liraglutide)Indica tions:Type 2 diabetes mellitus with hemoglobin A1c goal of less than 8.0% ([facility]),Type 2 diabetes mellitus with stage 4 chronic kidney disease, with long-term current use of insulin ([facility]) Inject 1.8 mg under the skin daily. 27 mL 3 07/23/2022 Active Furosemide 80 MG Oral Tablet (Lasix) Take 1 Tablet by mouth in the morning. 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 Test performed by Dori MANAGER [employer] CP[employer] Body mass index (BMI) of 45.0 [...] MANAGEMENT 07/22/2008 0 Overview: Kianna Lyn RN [phone] Examination following surgery 07/11/2008 Difficult intubation 07/10/2008 02/19/2020 Overview: Patient seen and examined in OR#1.Possible difficult intubation.TM distance about 5 cms.MP 3-4. Will plan FOB electively Due to current situation. EXAMINATION OF PARTICIPANT IN CLINICAL TRIAL-gen omics 07/04/2008 05/30/2009 Overview: Renamed Per Clinical Trials Billing Project. Study Titile: Genomic Markers for Patients with Cardiovascular Disease Project #[id number] PI: Miriam Roque MD Please call [phone] with study related questions Chronic coronary artery [...] at goal 07/04/2008 9 GENOMICS CARDIO RESEARCH OTHER*[id number] 200803/23/2016 Overview: Renamed Per Clinical Trials Billing Project. Study Titile: Genomic Markers for Patients with Cardiovascular Disease Project #[id number] PI: Miriam Roque MD Please call [phone] with study related questions Kidney disease, chronic, [...] encounter Miscellaneous Notes * Telephone Encounter - Davis Abarca - 10/11/2022 1:25 PM EDT Orders in 10/11 documented in this encounter Plan of Treatment Upcoming Encounters Date Type Specialty Care Team Description 10/12/2022 Office Visit Nephrology Quin Narvaez MD [address] [facility] [address] 10/21/2022 Office Visit Family Medicine Nicola Prado MD [address] [place] [address] [place] [address] 10/22/2022 Cardiac Studies Cardiology [facility] [address] [place] [address] 11/17/2022 Office Visit [address] [place] [address] 11/30/2022 Office Visit Urology Denny Armando MD [address] [place] [address] [place] [address] 12/20/2022 Office Visit Dermatology Meron Aragon PA-C [address] [place] [address] [place] [address] 01/24/2023 Office Visit Rheumatology Ashley Mancilla PA-C 03/04/2023 Office Visit Gastroenterology Marielena Hall CRNP [address] [place] [address] 03/29/2023 Office Visit Cardiology Blair Hannah PA-Elbert [address] [place] [address] 06/02/2023 Nurse Only Ancillary [place], Nurse Annual [address] [place] [address] Scheduled Procedures Name Priority Associated Diagnoses Date/Ti [...] this encounter Medical Devices Implanted Type Area [employer] Social Studies Teacher Device Identifier Shelf Expiration Date Model / Serial / Lot Sut Steel 6 [id number] - [id number] Implanted:Qty: 6 on 07/10/2008 at [place] [facility] [place] N/A: Chest DO NOT USE 08/14/2012 [id number] / / [id number] documented as of this encounter Advance Directives Documents on File Type Date Recorded 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 No Code Status History Code Status Date [...] patient or by statute hierarchy) Care Teams Continuous Still Operator Relationship Specialty Start Date End Date Nicola Prado MD [address] [place] [address] [place] [address] PCP - General Family Medicine 06/19/21 documented as of this encounter
--- OUTSIDE RECORDS SUMMARY | 2023-02-03 20:33 | External Medical Summary | Summary of Care ---
Author Name Unknown Organization [facility] Address [address] [place] [address] Phone [phone] Care Team Providers Care Tire Trucker Name Role Phone Nicola Prado MD Primary Care Provide r Reason for Visit * Reason Comments Medication Discussion Encounter Details Date Type Department Care Team Description 10/06/2022 Office Visit Pharmacy, [address] [place] [address] [place] [address] Encounter for medication review* Allergies Active Allergy [...] 6 2 Active Vitamin D3 1.25 MG (73242 UT) Oral Capsule Take 1 Capsule by [...] Tablet 1 3 Active Easy Touch Pen [place] 31G X 8 MM (Insulin Pen Needle)Indicatio ns:Type 2 diabetes mellitus with hemoglobin A1c goal of less than 8.0% ([facility]),Type 2 diabetes mellitus with stage 4 chronic kidney disease, unspecified whether local 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 DXe11.9 600 Each 3 3 Active Albuterol Sulfate HFA 108 (90 Base) MCG/ACT Inhalation Aerosol SolutionIndicati ons:COPD exacerbation ([facility]),Chronic cough Inhale by [...] Auto-injector (Enbrel Sureclick)Indica tions:Polyarticu lar psoriatic arthritis ([facility]),H/O psoriasis Inject [...] ns:Dyslipidemia, goal LDL below 70,Atheroscleros is of [place] coronary artery of [place] heart without angina pectoris Take 1 Tablet by mouth daily. 90 Tablet 3 3 Active Baclofen 20 MG Oral TabletIndication s:Muscle cramps one pill three times a day as needed for tight muscles 30 Tablet 0 2 10/07/19 Discontinued(Pat ient preference/disco ntinuation) Simethicone 80 MG Oral Tablet Chewable (Mylicon)Indicat ions:Gastroenter itis Take by mouth 1 Tablet as needed in the morning AND 1 Tablet as needed at noon AND 1 Tablet as needed in the evening AND 1 Tablet as needed before bedtime for Gas. 100 Tablet 0 2 10/07/19 Discontinued guaiFENesin ER 600 MG Oral Tablet [...] MANAGEMENT 07/22/2008 0 Overview: Kianna Lyn RN [phone] Examination following surgery 07/11/2008 Difficult intubation 07/10/2008 02/19/2020 Overview: Patient seen and examined in OR#1.Possible difficult intubation.TM distance about 5 cms.MP 3-4. Will plan FOB electively Due to current situation. EXAMINATION OF PARTICIPANT IN CLINICAL TRIAL-gen omics 07/04/2008 05/30/2009 Overview: Renamed Per Clinical Trials Billing Project. Study Titile: Genomic Markers for Patients with Cardiovascular Disease Project #[id number] PI: Miriam Roque MD Please call [phone] with study related questions Chronic coronary artery [...] at goal 07/04/2008 9 GENOMICS CARDIO RESEARCH OTHER*[id number] 200803/23/2016 Overview: Renamed Per Clinical Trials Billing Project. Study Titile: Genomic Markers for Patients with Cardiovascular Disease Project #[id number] PI: Miriam Roque MD Please call [phone] with study related questions Kidney disease, chronic, [...] this encounter Progress Notes * Karlene Alvarez, [facility] - 10/06/2022 1:00 PM EDT Images from the original note were not included. PHARMACY MTM PROGRESS NOTE [facility] ([facility] [address] [facility] [place] [address] Service Delivery Delivery Method: Face to Face [...] after.. Associated Diagnoses: Pain Easy Touch Pen [place] 31G X 8 MM (Insulin Pen Needle) [...] placed on file. Vitamin D3 1.25 MG (86217 UT) Oral Capsule History Per Patient Associated [...] service: Patient Was the patient in a local intermodal truck driver care (LTC) facility when the CMR was completed? No Pharmacist's availability for questions: Tuesday-Tuesday 8:00am-4:30pm Takeaway Information Will the Patient Takeaway be sent to the Patient or someone else? Patient Language Template for the Patient Takeaway: Honduran Additional notes for the Patient Takeaway (optional): n/a I attest that I have reviewed and updated the patient's conditions, allergies, and medications to the best of my ability. Patient Access: Is patient utilizing [facility]? No; prefers local pharmacy Is patient utilizing [facility]? Yes Additional Call Notes 30 min Not currently taking Sertraline, called and confirmed with pharmacy. Routing to PCP to make aware to discuss further at upcoming visit. Karlene Alvarez RPh Clinical Pharmacist [facility] ([facility]) 10/06/2022, 1:00 PM documented in this encounter Plan of Treatment Upcoming Encounters Date Type Specialty Care Team Description 10/11/2022 Office Visit Sleep Disorders Eulalia Milligan, DO [address] [place] [address] 10/12/2022 Office Visit Nephrology Quin Narvaez MD [address] [facility], [place] [address] 10/21/2022 Office Visit Family Medicine Nicola Prado MD [address] [place] [address] [place] [address] 10/22/2022 Cardiac Studies Cardiology [facility] [address] [place] [address] 11/17/2022 Office Visit Pharmacy [address] [place] [address] 11/30/2022 Office Visit Urology Denny Armando MD [address] [place] [address] [place] [address] 12/20/2022 Office Visit Dermatology Meron Aragon PA-C [address] [place] [address] [place] [address] 01/24/2023 Office Visit Rheumatology Ashley Mancilla PA-C 03/04/2023 Office Visit Gastroenterology Marielena Hall CRNP [address] [place] [address] 03/29/2023 Office Visit Cardiology Blair Hannah PA-C [address] [place] [address] 06/02/2023 Nurse Only Ancillary Nurse Neeraj Annual [address] [place] [address] Scheduled Procedures Name Priority Associated Diagnoses Date/Ti [...] FOR COPD 10/23/2022 10/23/2021 GFR 04/06/2023 10/04/2022, 0708/2022, 08/11/2022, Additional history exists HbA1c 04/08/2023 10/06/2022, [...] this encounter Medical Devices Implanted Type Area Shingles Roofer Helper Device Identifier Shelf Expiration Date Model / Serial / Lot Sut [place] 6 [id number] - [id number] Implanted:Qty: 6 on 07/10/2008 at [place] [facility] [place] N/A: Chest DO NOT USE 08/14/2012 [id number] / / [id number] documented as of this encounter Visit Diagnoses Diagnosis Encounter for medication review- Primary Encounter for long-term (current) use of other medications documented in this encounter Advance Directives Documents on File Type Date Recorded Patient Accounts Payable Processor Expl anation Power of Senior Process Analyst 06/26/2019 POWER OF A TTORNEY Advance [...] patient have Health Care Power of Senior Process Analyst? No Code Status History Code Status [...] patient or by statute hierarchy) Care Teams Tire Trucker Relationship Specialty Start Date End Date Nicola Prado MD [address] [place] [address] [place] [address] PCP - General Family Medicine 06/19/21 documented as of this encounter
--- OUTSIDE RECORDS SUMMARY | 2023-02-03 20:33 | External Medical Summary | Summary of Care ---
Author Name Unknown Organization [facility] Address [address] [place] [address] Phone [phone] Care Team Providers Care Administrative Assistant Coordinator Name Role Phone Nicola Prado MD Primary Care Provide r Reason for Visit * Reason Comments Outpatient Testing Encounter Details Date Type Department Care Team Description 10/06/2022 Laboratory Laboratory [address] [place] [id number] [place] [id number] Iron deficiency anemia; Type 2 diabetes mellitus with hemoglobin A1c goal of less than 8.0% ([facility]) Allergies Active Allergy Reactions Severity Noted Date Comments Hydromorphone High 09/20/2021 Other reaction(s): Nausea Other reaction(s): Nausea 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/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 Other reaction(s): AMS Other reaction(s): AMS Prasugrel 04/02/2016 bleeding Prednisone High 09/20/2021 Other reaction(s): INCREASE BLOOD SUGAR Other reaction(s): INCREASE BLOOD SUGAR documented as of this encounter (statuses as of 10/06/2022) Medications Medication Sig Dispensed Refills Start Date [...] the morning. 30 Tablet 1 05/11/2021 Active Betamethasone Dipropionate 0.05 % External OintmentIndications [...] 6 06/26/2021 Active Vitamin D3 1.25 MG (78527 UT) Oral Capsule Take 1 Capsule by mouth in the morning. 0 Active CPAP every night at bedtime . 2 Liters 0 Active Baclofen 20 MG Oral TabletIndications:M uscle cramps one pill three times a day as needed for tight muscles 30 Tablet 0 10/26/2021 Active Diclofenac Sodium 1 % External Gel (Voltaren) Apply topically to affected area 2 g in the morning AND 2 g before bedtime. Apply to affected area of lower back up to twice a day as needed for pain. Wash hands after.. 100 g 1 10/30/2021 Active Simethicone 80 MG Oral Tablet Chewable (Mylicon)Indication s:Gastroenteritis Take by mouth 1 Tablet as needed in the morning AND 1 Tablet as needed at noon AND 1 Tablet as needed in the evening AND 1 Tablet as needed before bedtime for Gas. 100 Tablet 0 11/25/2021 Active Triamcinolone Acetonide 0.1 % External Ointment (Aristocort)Indicat ions:Plaque psoriasis Apply to rash on trunk/arms/legs 2x daily (when thinner and less noticeable and less bothersome) until resolved, then when flaring 454 g 1 12/14/2021 Active Allopurinol 300 MG Oral Tablet (Zyloprim) Take 1 Tablet by mouth daily. 90 Tablet 3 12/16/2021 Active guaiFENesin ER 600 MG Oral Tablet Extended Release 12 Hour (Mucinex)Indication s:COPD exacerbation (HCC),Chronic cough Take by mouth 1 Tablet 2 times a day as needed for Congestion. Take with plenty of water. Do not cut, crush or chew 40 Tablet 2 12/17/2021 Active OneTouch UltraSoft LancetsIndications: Type 2 diabetes [...] less than 8.0% ([facility]) Inject 110 Units under the [...] 15 minutes 25 Tablet 1 05/05/2022 Active Additional Information Patient not taking.Reported on 09/21/2022 Easy Touch Pen [place] 31G X 8 MM (Insulin Pen Needle)Indications: Type 2 diabetes mellitus with hemoglobin A1c goal of less than 8.0% ([facility]),Type 2 diabetes mellitus with stage 4 chronic kidney disease, unspecified whether long term care social worker insulin use ([facility]) Use up to six times daily with insulin. DXe11.9 600 Each 3 05/22/2022 Active Albuterol Sulfate HFA 108 (90 Base) MCG/ACT Inhalation Aerosol SolutionIndications :COPD exacerbation ([facility]),Chronic cough Inhale by mouth 2 Puffs every 4 hours as needed for Cough or Shortness of Breath. 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[facility]),H/O psoriasis Inject [...] (Zetia)Indications: Dyslipidemia, goal LDL below 70,Atherosclerosis of [place] coronary artery of [place] heart without angina pectoris Take 1 Tablet [...] as of this encounter (statuses as of 10/06/2022) Active Problems Problem Noted Date Hypertensive heart [...] urinary tr act symptoms 07/13/2001 Atherosclerosis of [place] co ronary artery of [place] heart without angina pectoris Morbid obesity with BMI of 40.0-44.9, ad ult documented as of this encounter (statuses as of 10/06/2022) Resolved Problems Problem Noted Date Resolved Date [...] MANAGEMENT 07/22/2008 0 Overview: Kianna Lyn RN [phone] Examination following surgery 07/11/2008 Difficult intubation 07/10/2008 02/19/2020 Overview: Patient seen and examined in OR#1.Possible difficult intubation.TM distance about 5 cms.MP 3-4. Will plan FOB electively Due to current situation. EXAMINATION OF PARTICIPANT IN CLINICAL TRIAL-gen omics 07/04/2008 05/30/2009 Overview: Renamed Per Clinical Trials Billing Project. Study Titile: Genomic Markers for Patients with Cardiovascular Disease Project #[id number] PI: Miriam Roque MD Please call [phone] with study related questions Chronic coronary artery [...] at goal 07/04/2008 9 GENOMICS CARDIO RESEARCH OTHER*[id number] 200803/23/2016 Overview: Renamed Per Clinical Trials Billing Project. Study Titile: Genomic Markers for Patients with Cardiovascular Disease Project #[id number] PI: Miriam Roque MD Please call [phone] with study related questions Kidney disease, chronic, [...] as of this encounter (statuses as of 10/06/2022) Immunizations Name Administration Dates Next Due COVID-19 mRNA, LNP-s, No Pre serve, 2-Dose Series (AREVS) 12/09/2020,05/09/2020,04/11/2020 COVID-19, LNP-s, No Preserve , Juan [...] 10/11/2022 Office Visit Sleep Disorders Eulalia Milligan, [address] [place] [address] 10/12/2022 Office Visit Nephrology Quin Narvaez MD [address] [place] [address] [place] [address] 10/21/2022 Office Visit Family Medicine Nicola Prado MD [address] [place] [address] [place] [address] 10/22/2022 Cardiac Studies Cardiology Keith Pickard [facility] [address] [place] [address] 11/17/2022 Office Visit [address] [place] [address] 11/30/2022 Office Visit Urology Denny Armando MD [address] [place] [address] 12/20/2022 Office Visit Dermatology Meron Aragon PA-C [address] [place] [address] [place] [address] 01/24/2023 Office Visit Rheumatology Ashley Mancilla PA-C 03/04/2023 Office Visit Gastroenterology Marielena Hall CRNP [address] [place] [address] 03/29/2023 Office Visit Cardiology Blair Hannah PA-C [address] [place] [address] 06/02/2023 Nurse Only Ancillary Nurse Neeraj [address] [place] [address] Pending Results Name Type Priority Associated Diagnoses Date /Time HEMOGLOBIN A1C Lab Routine Type 2 diabetes mellitus with hemoglobin A1c goal of less than 8.0% ([facility]) 10/06/2022 1:39 PM EDT Scheduled Orders Name Type Priority Associated Diagnoses Orde r Schedule CBC Lab Routine Iron deficiency anemia Ordered: 10/06/2022 DIFFERENTIAL, AUTOMATED Lab Routine Iron deficiency anemia Ordered: 10/06/2022 Scheduled Procedures Name Priority Associated Diagnoses Date/Ti [...] 10/22/2021, 11/10/2020, 10/23/2019, Additional history exists HbA1c 10/23/2022 04/22/2022, 090 09/2021, 02/16/2021, Additional history exists O2 ASSESSMENT COMPLETED IN PAST YEAR FOR COPD 10/23/2022 10/23/2021 GFR 04/06/2023 10/04/2022, 08/15, 08/11/2022, Additional history exists Albumin/Creatinine Ratio 04/23/2023 023, [...] this encounter Medical Devices Implanted Type Area Talent Acquisition Relationship Manager Device Identifier Shelf Expiration Date Model / Serial / Lot Lei Agrawal 6 [id number] - [id number] Implanted:Qty: 6 on 07/10/2008 [place] [facility] [place]: Chest DO NOT USE 08/14/2012 [id number] / / [id number] documented as of this encounter Visit Diagnoses Diagnosis Iron deficiency anemia Iron deficiency anemia, unspecified Type 2 diabetes mellitus with hemoglobin A1c goal of less than 8.0% (HCC) documented in this encounter Advance Directives Documents on File Type Date Recorded Patient Desulphuring Operator Expl anation Power of Steward/Stewardess Room 06/26/2019 POWER OF A TTORNEY Advance Directives [...] the patient have Health Care Power of Steward/Stewardess Room? No Code Status History Code Status Date [...] patient or by statute hierarchy) Care Teams Administrative Assistant Coordinator Relationship Specialty Start Date End Date Nicola Prado MD [address] [place] [address] [place] [address] PCP - General Family Medicine 06/19/21 documented as of this encounter
--- OUTSIDE RECORDS SUMMARY | 2023-02-03 20:33 | External Medical Summary | Summary of Care ---
Author Name Unknown Organization [facility] Address [address] [place] [address] Phone [phone] Care Team Providers Care Conservation Or Heritage Architect Name Role Phone Nicola Prado MD Primary Care Provide r Reason for Visit * Reason Comments Outpatient Testing Encounter Details Date Type Department Care Team Description 10/04/2022 Laboratory Laboratory [address] [place] [phone] [place] [id number] Iron deficiency anemia; Proteinuria, unspecified type; Anemia in stage 4 chronic kidney disease (HCC) Allergies Active Allergy Reactions Severity Noted Date Comments Hydromorphone High 09/20/2021 Other reaction(s): Nausea Other reaction(s): Nausea 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/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 Other reaction(s): AMS Other reaction(s): AMS Prasugrel 04/02/2016 bleeding Prednisone High 09/20/2021 Other reaction(s): INCREASE BLOOD SUGAR Other reaction(s): INCREASE BLOOD SUGAR documented as of this encounter (statuses as of 10/04/2022) Medications Medication Sig Dispensed Refills Start Date [...] depressive disorder without prior episode ([facility]) Take 1 tablet by mouth daily in [...] 6 06/26/2021 Active Vitamin D3 1.25 MG (39642 UT) Oral Capsule Take 1 Capsule by [...] than 8.0% ([facility]) Inject 110 Units under the skin [...] not taking.Reported on 09/21/2022 Easy Touch Pen [place] 31G X 8 MM (Insulin Pen Needle)Indications: Type 2 diabetes mellitus with hemoglobin A1c goal of less than 8.0% ([facility]),Type 2 diabetes mellitus with stage 4 chronic kidney disease, unspecified whether 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 operator insulin use ([facility]) Use [...] (Enbrel Sureclick)Indicatio ns: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[facility]),H/O psoriasis Inject 50 mg under the [...] (Zetia)Indications: Dyslipidemia, goal LDL below 70,Atherosclerosis of [place] coronary artery of [place] heart without angina pectoris Take 1 Tablet [...] as of this encounter (statuses as of 10/04/2022) Active Problems Problem Noted Date Hypertensive heart [...] urinary tr act symptoms 07/13/2001 Atherosclerosis of [place] co ronary artery of [place] heart without angina pectoris Morbid obesity with BMI of 40.0-44.9, ad ult documented as of this encounter (statuses as of 10/04/2022) Resolved Problems Problem Noted Date Resolved Date [...] 02/04/2016 11/23/2017 Overview: [facility] Anemia of chronic renal failure 07/30/2015 01/27/2017 [...] MANAGEMENT 07/22/2008 0 Overview: Kianna Lyn, RN [phone] Examination following surgery 07/11/2008 Difficult intubation 07/10/2008 02/19/2020 Overview: Patient seen and examined in OR#1.Possible difficult intubation.TM distance about 5 cms.MP 3-4. Will plan FOB electively Due to current situation. EXAMINATION OF PARTICIPANT IN CLINICAL TRIAL-gen omics 07/04/2008 05/30/2009 Overview: Renamed Per Clinical Trials Billing Project. Study Titile: Genomic Markers for Patients with Cardiovascular Disease Project #[id number] PI: Miriam Roque MD Please call [phone] with study related questions Chronic coronary artery [...] at goal 07/04/2008 9 GENOMICS CARDIO RESEARCH OTHER*[id number] 200803/23/2016 Overview: Renamed Per Clinical Trials Billing Project. Study Titile: Genomic Markers for Patients with Cardiovascular Disease Project #[id number] PI: Miriam Roque MD Please call [phone] with study related questions Kidney disease, chronic, [...] as of this encounter (statuses as of 10/04/2022) Immunizations Name Administration Dates Next Due COVID-19 [...] Encounters Date Type Specialty Care Team Description 10/06/2022 Office Visit Pharmacy [address] [place] [address] 10/06/2022 Office Visit Pharmacy [address] [place] [address] 10/07/2022 Cardiac Studies Cardiology [facility] [address] [place] [address] 10/11/2022 Office Visit Sleep Disorders Eulalia Milligan DO [address] [place] [address] 10/12/2022 Office Visit Nephrology [facility] [address] [facility] [address] 10/21/2022 Office Visit Family Medicine Nicola Prado MD [address] [place] [address] [place] [address] 11/30/2022 Office Visit Urology Denny Armando MD [address] [place] [address] [place] [address] 12/20/2022 Office Visit Dermatology Meron Aragon PA-C [address] [place] [address] [place] [address] 01/24/2023 Office Visit Rheumatology Ashley Mancilla PA-C 03/04/2023 Office Visit Gastroenterology Marielena Hall CRNP [address] [place] [address] 03/29/2023 Office Visit Cardiology Blair Hannah PA-C [address] [place] [address] 06/02/2023 Nurse Only Ancillary Neeraj, Nurse [facility] [address] [place] [address] [place] [address] Pending Results Name Type Priority Associated Diagnoses Date /Time CBC WITH WBC DIFFERENTIAL Lab Routine Iron deficiency anemia 10/04/2022 11:53 AM EDT BASIC METABOLIC PANEL Lab Routine Proteinuria, unspecified type Anemia in stage 4 chronic kidney disease (HCC) 10/04/2022 11:53 AM EDT CBC Lab Routine Iron deficiency anemia 10/04/2022 11:53 AM EDT DIFFERENTIAL, AUTOMATED Lab Routine Iron deficiency anemia 10/04/2022 11:53 AM EDT Scheduled Procedures Name Priority Associated [...] 10/23/2019, Additional history exists HbA1c 10/23/2022 04/22/2022, 09/2021, 02/16/2021, Additional history exists O2 ASSESSMENT COMPLETED IN PAST YEAR FOR COPD 10/23/2022 10/23/2021 GFR 03/12/2023 09/09/2022, 07/16, 08/02/2022, Additional history exists Albumin/Creatinine Ratio 04/23/2023 023, [...] this encounter Medical Devices Implanted Type Area Regional Recruiter Device Identifier Shelf Expiration Date Model / Serial / Lot Lei Agrawal 6 [id number] - [id number] Implanted:Qty: 6 on 07/10/2008 at [place] [facility] [place]/A: Chest DO NOT USE 08/14/2012 [id number] / / [id number] documented as of this encounter Visit Diagnoses Diagnosis Iron deficiency anemia Iron deficiency anemia, unspecified Proteinuria, unspecified type Anemia in stage 4 chronic kidney disease (HCC) documented in this encounter Advance Directives Documents on File Type Date Recorded Patient Houseman Expl anation Power of Social Security Specialist 06/26/2019 POWER OF A TTORNEY Advance [...] the patient have Health Care Power of Social Security Specialist? No Code Status History Code Status [...] patient or by statute hierarchy) Care Teams Conservation Or Heritage Architect Relationship Specialty Start Date End Date Nicola Prado MD [address] [place] [address] [place] [address] PCP - General Family Medicine 06/19/21 documented as of this encounter
--- OUTSIDE RECORDS SUMMARY | 2023-02-03 20:33 | External Medical Summary | Summary of Care ---
Author Name Unknown Organization [facility] Address [address] [place] [address] Phone [phone] Care Team Providers Care Code And Test Clerk Name Role Phone Nicola Prado MD Primary Care Provide r Reason for Visit * Reason Comments Medication Discussion Encounter Details Date Type Department Care Team Description 10/06/2022 Office Visit Pharmacy, [address] [place] [address] [place] [address] Encounter for medication review* Allergies Active Allergy [...] 6 2 Active Vitamin D3 1.25 MG (68019 UT) Oral Capsule Take 1 Capsule by [...] Tablet 1 3 Active Easy Touch Pen [place] 31G X 8 MM (Insulin Pen Needle)Indicatio ns:Type 2 diabetes mellitus with hemoglobin A1c goal of less than 8.0% ([facility]),Type 2 diabetes mellitus with stage 4 chronic kidney disease, unspecified 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 DXe11.9 600 Each 3 3 Active Albuterol Sulfate HFA 108 (90 Base) MCG/ACT Inhalation Aerosol SolutionIndicati ons:COPD exacerbation ([facility]),Chronic cough Inhale by mouth 2 Puffs every [...] disease, with long-term current use of insulin ([facility]) Inject 1.8 mg under the skin daily. 27 mL 3 3 Active Furosemide 80 MG Oral Tablet (Lasix) Take 1 Tablet by mouth in the morning. 90 Tablet 1 3 Active Etanercept 50 MG/ML Subcutaneous Solution Auto-injector (Enbrel Sureclick)Indica tions:Polyarticu lar psoriatic arthritis ([facility]),H/O psoriasis Inject 50 mg under the skin [...] ns:Dyslipidemia, goal LDL below 70,Atheroscleros is of [place] coronary artery of [place] heart without angina pectoris Take 1 Tablet [...] urinary tr act symptoms 07/13/2001 Atherosclerosis of [place] co ronary artery of [place] heart without angina pectoris Morbid obesity with [...] TIA (transient ischemic attack) 02/04/2016 11/23/2017 Overview: [facility] Anemia of chronic renal failure [...] MANAGEMENT 07/22/2008 0 Overview: Kianna Lyn RN [phone] Examination following surgery 07/11/2008 Difficult intubation 07/10/2008 02/19/2020 Overview: Patient seen and examined in OR#1.Possible difficult intubation.TM distance about 5 cms.MP 3-4. Will plan FOB electively Due to current situation. EXAMINATION OF PARTICIPANT IN CLINICAL TRIAL-gen omics 07/04/2008 05/30/2009 Overview: Renamed Per Clinical Trials Billing Project. Study Titile: Genomic Markers for Patients with Cardiovascular Disease Project #[id number] PI: Miriam Roque MD Please call [phone] with study related questions Chronic coronary artery [...] at goal 07/04/2008 9 GENOMICS CARDIO RESEARCH OTHER*[id number] 200803/23/2016 Overview: Renamed Per Clinical Trials Billing Project. Study Titile: Genomic Markers for Patients with Cardiovascular Disease Project #[id number] PI: Miriam Roque MD Please call [phone] with study related questions Kidney disease, chronic, [...] this encounter Progress Notes * Karlene Alvarez, [facility] - 10/06/2022 1:00 PM EDT Images from the original note were not included. PHARMACY MTM PROGRESS NOTE [facility]) [address] [facility] [place] [address] Service Delivery Delivery Method: Face to Face [...] mg, Nebulizer, PRN OtherStarting on Tue05/18/22 at 0926, Until Tue05/18/23 at 0925For 365 daysOnly one type of albuterol product should be administered (Nebulizer or Inhaler). Please select and document on the appropriate albuterol product order. Associated Diagnoses: Breathing Albuterol Sulfate (Proventil) (5 MG/ML) 0.5% *conc* inhalation solution 2.5 mg Al Mccrary PA-C 2.5 mg, Nebulizer, PRN pft onceStarting on Tue05/18/22 at 0926, Until Tue05/18/23 at 0925For 365 daysOnly one [...] after.. Associated Diagnoses: Pain Easy Touch Pen [place] 31G X 8 MM (Insulin Pen Needle) [...] placed on file. Vitamin D3 1.25 MG (78548 UT) Oral Capsule History Per Patient Associated [...] service: Patient Was the patient in a [facility] care (LTC) facility when the CMR was completed? No Pharmacist's availability for questions: Tuesday-Tuesday 8:00am-4:30pm Takeaway Information Will the Patient Takeaway be sent to the Patient or someone else? Patient Language Template for the Patient Takeaway: South African Additional notes for the Patient Takeaway (optional): n/a I attest that I have reviewed and updated the patient's conditions, allergies, and medications to the best of my ability. Patient Access: Is patient utilizing [facility]? No; prefers local pharmacy Is patient utilizing [employer]? Yes Additional Call Notes 30 min Not currently taking Sertraline, called and confirmed with pharmacy. Routing to PCP to make aware to discuss further at upcoming visit. Karlene Alvarez RP Clinical Pharmacist [facility] ([facility]) 10/06/2022, 1:00 PM documented in this encounter Plan of Treatment Upcoming Encounters Date Type Specialty Care Team Description 10/11/2022 Office Visit Sleep Disorders Eulalia Milligan DO [address] [place] [address] 10/12/2022 Office Visit Nephrology [facility]z [facility] [address] [facility] [place] [address] 10/21/2022 Office Visit Family Medicine Nicola Prado MD [address] [place] [address] [place] [address] 10/22/2022 Cardiac Studies Cardiology [facility] [address] [place] [address] 11/17/2022 Office Visit [address] [place] [address] 11/30/2022 Office Visit Urology Denny Armando MD [address] [place] [address] [place] [address] 12/20/2022 Office Visit Dermatology Meron Aragon PA-C [address] [place] [address] [place] [address] 01/24/2023 Office Visit Rheumatology Ashley Mancilla PA-C 03/04/2023 Office Visit Gastroenterology Marielena Hall CRNP [address] [place] [address] 03/29/2023 Office Visit Cardiology Blair Hannah PA-C [address] [place] [address] 06/02/2023 Nurse Only Ancillary Nurse Neeraj Annual [address] [place] [address] Scheduled Procedures Name Priority Associated Diagnoses Date/Ti [...] this encounter Medical Devices Implanted Type Area Laboratory Engineer Device Identifier Shelf Expiration Date Model / Serial / Lot Sut Steel 6 M654g - [id number] Implanted:Qty: 6 on 07/10/2008 at OR [facility] N/A: Chest DO NOT USE 08/14/2012 [id number] / / [id number] documented as of this encounter Visit Diagnoses Diagnosis Encounter for medication review- Primary Encounter for long-term (current) use of other medications documented in this encounter Advance Directives Documents on File Type Date Recorded Patient Baker Paint Expl anation Power of Line Supply 06/26/2019 POWER OF A TTORNEY Advance Directives [...] the patient have Health Care Power of Line Supply? No Code Status History Code Status Date [...] patient or by statute hierarchy) Care Teams Code And Test Clerk Relationship Specialty Start Date End Date Nicola Prado MD [address] [place] [address] [place] [phone] PCP - General Family Medicine 06/19/21 documented as of this encounter
--- OUTSIDE RECORDS SUMMARY | 2023-02-03 20:33 | External Medical Summary ---
Author Name Unknown Address Unknown Organization K01:[facility] [place] [address] [facility] [address] Laboratory Report Ordering Provider Test Date Status HUBER CLARKE 10/06/2022 13:39:59 Final Observation Date Value Abnormality Reference (Units ) Status HbA1C 10/06/2022 13:39:59 7.7 Above high normal 4. 0-5.6 (%) Final The use of HbA1c to monitor glycemic status is based on normal hemoglobin and HbA composition. This test should not be used in patients with abnormal hemoglobin that affects the half life of the red blood cell or the in vivo glycation rates. Glucose, estimated average 10/06/2022 13:39:59 174 Above high normal <126 (mg/dL) Ren gomez Performing Location [facility] [place] [address] [facility] [address]
--- OUTSIDE RECORDS SUMMARY | 2023-02-03 20:33 | External Medical Summary | Summary of Care ---
Author Name Unknown Organization [facility] Address [address] [place] [address] Phone [phone] Care Team Providers Care Light Rail Transit Operator Name Role Phone Nicola Prado MD Primary Care Provide r Reason for Visit * Reason Comments Dosage Adjustment In Person (Anticoag Cl inic) Diabetes Follow-Up Encounter Details Date Type Department Care Team Description 10/06/2022 Office Visit Pharmacy, [address] [place] [address] [place] [address] Type 2 diabetes mellitus with hemoglobin A1c goal of less than 8.0% ([facility])* Allergies Active Allergy Reactions Severity Noted Date [...] 6 06/26/2021 Active Vitamin D3 1.25 MG (49752 UT) Oral Capsule Take 1 Capsule by [...] or chew 40 Tablet 2 12/17/2021 Active IQ EliteTouch UltraSoft LancetsIndications: Type 2 diabetes mellitus with [...] ([facility]) Inject 110 Units under the skin in [...] not taking.Reported on 09/21/2022 Easy Touch Pen [place] 31G X 8 MM (Insulin Pen Needle)Indications: Type 2 diabetes mellitus with hemoglobin A1c goal of less than 8.0% ([facility]),Type 2 diabetes mellitus with stage 4 chronic kidney disease, unspecified whether intermission coordinator insulin use ([facility]) Use up to six times daily with insulin. 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[facility]),H/O psoriasis Inject 50 mg under the skin [...] (Zetia)Indications: Dyslipidemia, goal LDL below 70,Atherosclerosis of [place] coronary artery of [place] heart without angina pectoris Take 1 Tablet [...] urinary tr act symptoms 07/13/2001 Atherosclerosis of [place] co ronary artery of [place] heart without angina pectoris Morbid obesity [...] 02/04/2016 11/23/2017 Overview: [facility] Anemia of chronic renal failure 07/30/2015 01/27/2017 [...] MANAGEMENT 07/22/2008 0 Overview: Kianna Lyn RN [phone] Examination following surgery 07/11/2008 Difficult intubation 07/10/2008 02/19/2020 Overview: Patient seen and examined in OR#1.Possible difficult intubation.TM distance about 5 cms.MP 3-4. Will plan FOB electively Due to current situation. EXAMINATION OF PARTICIPANT IN CLINICAL TRIAL-gen omics 07/04/2008 05/30/2009 Overview: Renamed Per Clinical Trials Billing Project. Study Titile: Genomic Markers for Patients with Cardiovascular Disease Project #[id number] PI: Miriam Roque MD Please call [phone] with study related questions Chronic coronary artery [...] at goal 07/04/2008 9 GENOMICS CARDIO RESEARCH OTHER*[id number] 200803/23/2016 Overview: Renamed Per Clinical Trials Billing Project. Study Titile: Genomic Markers for Patients with Cardiovascular Disease Project #[id number] PI: Miriam Roque MD Please call [phone] with study related questions Kidney disease, chronic, [...] mRNA, LNP-s, No Pre serve, 2-Dose Series (Medical Compression Systems) 12/09/2020,05/09/2020,04/11/2020 COVID-19, LNP-s, No Preserve , [...] this encounter Progress Notes * Karlene Alvarez, [facility] - 10/06/2022 12:56 PM EDT Medication Therapy Disease Management Clinic - Diabetes Management Progress Note Maurisio Beltran, identified by name and date of , is a 82 year old male being seen for diabetes management/education. Patient presents for return diabetic visit. DIABETES: Current diabetic medications: NovoLog Pen - 12 units with breakfast and supper PLUS CF of 1:215 if over 140 AC+HS DECREASE Tresiba U-200 Pen - 110units daily in AM (Patient reports he had been taking 90 units daily and increased to 100 units daily just this week) Victoza Pen - 1.8 mg daily eGFR 31 02/16/22 Medication Injection Site: Abdomen Lifestyle: Diet: unchanged Glucose Review/SMBG: Readings obtained from patient documented BG logbook Pre am Pre Lunch Pre pm HS 117 386 221 231 196 362 369 312 243 232 336 244 223 223 289 196 228 297 261 192 132 218 404 333 276 219 230 195 193 166 236 240 248 165 161 139 278 135 188 291 135 323 305 163 199 219 292 205 139 157 201 Average 187 249 282 243 Hi 276 386 404 333 Lo [address] 185[address]625 247.25 281.6 235.6 Range 159 247 239 141 Hypoglycemia: Does your blood sugar go below 70 mg/dL? No Hyperglycemia symptoms present: none Recent Labs Units 04/22/22 1129 10/22/21 0945 02/16/21 1203 HEMOGLOBIN A1C - [facility] % 7.2* 5.8* 6.1* Recent Labs Units 10/04/22 1153 09/09/22 0942 08/11/22 1314 ESTIMATED GLOMERULAR FILTRATION RATE - [facility] mL/min 29* 26* 33* CREATININE - [facility] mg/dL 2.2* 2.5* 2.0* HYPERTENSION: Patient on ACEi/ARB: yes BP Readings from Last 3 Encounters: 09/21/22 110/64 09/09/22 120/50 09/03/22 122/56 Blood pressure at goal: yes HYPERLIPIDEMIA: Patient is taking moderate or high intensity statin: yes HEALTH MAINTENANCE REVIEW: Health Maintenance Due Topic Date Due Alpha-1 Antitrypsin Never done Zoster Vaccines (1 of 2) Never done COVID-19 Vaccine (5 - Pfizer series) 07/30/2021 DIABETES-EYE EXAM 09/18/2022 HbA1c 10/23/2022 O2 ASSESSMENT COMPLETED IN PAST YEAR FOR COPD 10/23/2022 ASSESSMENT & PLAN: ICD-10-CM 1. Type 2 diabetes mellitus with hemoglobin A1c goal of less than 8.0% ([facility]) E11.9 Considerations: Ozempic - did not like Dexcom - rash to adhesive Libre2 - inaccurate readings Renal dysfunction - avoid metformin and SGLT2 Anemia with blood transfusions - caution with A1c interpretation PACE? BG Readings - Blood sugars uncontrolled. BG elevated, fluctuating greatly as patient has been self-adjusting insulin doses. Denies any hypoglycemia. Medications - Reviewed current regimen, patient is not adherent to regimen. Reports he had decreased Tresiba from 110 units --> 90 units. Just recently further increased to 100 units this week. Difficult to appropriately assess BG control due to this. We further discussed out Tresiba doses in hopes that insulin will able to be better absorbed. Agreeable to adjusting dose to 50 unitsin the AM and 50 units in the PM. Of note, per chart review patient should have PACE. Can look towards possibly transitioning from Victoza --> Mounjaro for additional BG lowering/weight loss. Deferred to future visits. Diet, Exercise, Lifestyle - Patient frequently eats at [employer] restaurant. Reports he has started to order tuna salads there instead of the high carb meals and has really been enjoying them. Encouraged to continue. Additionally, reports a nurse has been coming to see him weekly to help with his pills. Unsure what agency she is coming from but reports she has been very helpful. Patient is agreeable to SMBG 3-4 time(s) daily. Patient aware to contact clinic if any hypoglycemia before next visit. MEDICATION CHANGES: Updated below Diabetic Medications: NovoLog Pen - 12 units with breakfast and supper PLUS CF of 1:25 if over 140 AC+HS ADJUST Tresiba U-200 Pen - 50 units in the AM; 50 units in the PM Victoza Pen - 1.8 mg daily eGFR 29 as of 10/04/22 HEALTH MAINTENANCE INTERVENTIONS: Labs: Up to Date Immunizations: Up to Date Foot Exam: Up to Date Eye Exam: DUe Annual Wellness Visit: Up to Date FOLLOW UP: Return to clinic in 6 weeks 11/17/2022 Karlene Alvarez RPh Clinical Pharmacist - Product Safety Consultant Medication Therapy Management Clinic 10/06/2022, 12:56 PM documented in this encounter Plan of Treatment Upcoming Encounters Date Type Specialty Care Team Description 10/11/2022 Office Visit Sleep Disorders Eulaila Milligan DO [address] [place] [address] 10/12/2022 Office Visit Nephrology Quin Narvaez MD [address] [place] [address] 10/21/2022 Office Visit Family Medicine Nicola Prado MD [address] [place] [address] [place] [address] 10/22/2022 Cardiac Studies Cardiology Keith Pickard [facility] [address] [place] [address] 11/17/2022 Office Visit [address] [place] [address] 11/30/2022 Office Visit [facility]rology [facility] [address] [place] [address] 12/20/2022 Office Visit Dermatology Meron Aragon PA-C [address] [place] [address] [place] [address] 01/24/2023 Office Visit Rheumatology Ashley Mancilla PA-C 03/04/2023 Office Visit Gastroenterology Marielena Hall CRNP [address] [place] [address] 03/29/2023 Office Visit Cardiology Balir Hannah PA-C [address] [place] [address] 06/02/2023 Nurse Only Ancillary Nurse eNeraj [address] [place] [address] Pending Results Name Type Priority Associated Diagnoses Date /Time HEMOGLOBIN A1C Lab Routine Type 2 diabetes mellitus with hemoglobin A1c goal of less than 8.0% ([facility]) 10/06/2022 1:39 PM EDT Scheduled Orders Name Type Priority Associated Diagnoses Orde r Schedule HEMOGLOBIN A1C Lab Routine Type 2 diabetes mellitus with hemoglobin A1c goal of less than 8.0% (HCC) Expected: 10/06/2022 (Approximate), Expires: 10/07/2023 Scheduled Procedures Name Priority Associated Diagnoses Date/Ti [...] 10/23/2019, Additional history exists HbA1c 10/23/2022 04/22/2022, 09/0 09/2021, 02/16/2021, Additional history exists O2 ASSESSMENT [...] this encounter Medical Devices Implanted Type Area Hospitality Internship Device Identifier Shelf Expiration Date Model / Serial / Lot Sut Steel 6 [id number] - [id number] Implanted:Qty: 6 on 07/10/2008 at [place] [facility] [place] N/A: Chest DO NOT USE 08/14/2012 [id number] / / [id number] documented as of this encounter Visit Diagnoses Diagnosis Type 2 diabetes mellitus with hemoglobin A1c goal of less than 8.0% (HCC)- Primary documented in this encounter Advance Directives Documents on File Type Date Recorded Patient Senior Engineering Specialist Expl anation Power of Commodities Manager 06/26/2019 POWER OF A TTORNEY Advance [...] the patient have Health Care Power of Commodities Manager? No Code Status History Code Status [...] patient or by statute hierarchy) Care Teams Light Rail Transit Operator Relationship Specialty Start Date End Date Nicola Prado MD [address] [place] [address] [place] [address] PCP - General Family Medicine 06/19/21 documented as of this encounter
--- OUTSIDE RECORDS SUMMARY | 2023-02-03 20:33 | External Medical Summary ---
Author Name Unknown Address Unknown Organization [id number]:[place] [facility] [place] [address] [place] [address] Laboratory Report Ordering Provider Test Date Status DIANA PONCE 10/04/2022 11:53:18 Final Observation Date Value Abnormality Reference (Units ) Status BUN 10/04/2022 11:53:18 29 Above high normal 6-20 (mg/dL) Final Creatinine 10/04/2022 11:53:18 2.2 Above high normal 0.6-1.2 (mg/dL) Final Glomerular filtration rate/1.73 sq M.predicted [Volume Rate/Area] in Serum, Plasma or Blood by Creatinine-based formula (CKD-EPI) 10/04/2022 11:53:18 29 Below low normal >=60 (mL/min) Final eGFR is calculated based on the CKD-EPI 2020 equation SODIUM 10/04/2022 11:53:18 137 135-146 (m mol/L) Final Potassium 10/04/2022 11:53:18 4.4 3.5-5.1 (m mol/L) Final Cl 10/04/2022 11:53:18 96 Below low normal 98- 107 (mmol/L) Final CO2 10/04/2022 11:53:18 27 22-32 (mmo l/L) Final Anion gap 10/04/2022 11:53:18 14 7-15 (mmol /L) Final Glucose 10/04/2022 11:53:18 179 Above high normal 70 -120 (mg/dL) Final Calcium 10/04/2022 11:53:18 8.5 8.4-10.2 ( mg/dL) Final Performing Location [facility] [place] [address] [place] [address]
--- OUTSIDE RECORDS SUMMARY | 2023-02-03 20:33 | External Medical Summary ---
Author Name Unknown Address Unknown Organization [id number]:LAB[facility]ATORY [facility] - [address] [facility] [address] Laboratory Report Ordering Provider Test Date Status MIKY [place] 10/04/2022 11:53:18 Final Observation Date Value Abnormality Reference (Units ) Status SYNC LEUKOCYTES IN BLOOD BY AUTOMATED COUNT 10/04/2022 11:53:18 11.01 Above high normal 4.00-10.80 (K/uL) Final Segs 10/04/2022 11:53:18 69.1 40.0-75.0 (%) Final Lymphs % 10/04/2022 11:53:18 17.0 Below low normal 18.0-42.0 (%) Final Monos 10/04/2022 11:53:18 4.3 1.0-11.0 (%) Final Eosinophils 10/04/2022 11:53:18 8.5 Above high normal 0.0-6.0 (%) Final Basos 10/04/2022 11:53:18 0.6 0.0-2.0 (%) Final Immature Granulocyte, Percent 10/04/2022 11:53:18 0.5 0.0-2.0 (%) Final Absolute Segs 10/04/2022 11:53:18 7.61 1.80-7.70 (K/uL) Final Lymphs, absolute 10/04/2022 11:53:18 1.87 1.00-4.80 (K/ul) Final Monos, Abs 10/04/2022 11:53:18 0.47 0.00-1.10 (K/uL) Final Eos, Abs 10/04/2022 11:53:18 0.94 Above high normal 0.00-0.70 (K/uL) Final Basos, Abs 10/04/2022 11:53:18 0.07 0.00-0.20 (K/uL) Final Immature Granulocytes, Number 10/04/2022 11:53:18 0.05 0.00-0.20 (K/uL) Final Performing Location [facility] - [facility] [address] [facility] [address]
--- OUTSIDE RECORDS SUMMARY | 2023-02-03 20:33 | External Medical Summary ---
Author Name Unknown Address Unknown Organization K01:[facility]ORY [facility] [place] - [address] [facility] [place] [address] Laboratory Report Ordering Provider Test Date Status [place]KY [place] 10/04/2022 11:53:18 Final Observation Date Value Abnormality Reference (Units ) Status WBC, Total 10/04/2022 11:53:18 11.01 Above high normal 4.00-10.80 (K/uL) Final RBC 10/04/2022 11:53:18 3.67 4.50-5.25 (M/uL) Final Hemoglobin 10/04/2022 11:53:18 11.1 Below low normal 14.0-16.8 (g/dL) Final HCT 10/04/2022 11:53:18 36.5 Below low normal 40.0-48.4 (%) Final MCV 10/04/2022 11:53:18 99.5 82.0-99.5 (fL) Final MCH 10/04/2022 11:53:18 30.2 27.0-34.0 (pg) Final MCHC 10/04/2022 11:53:18 30.4 32.0-36.0 (g/dL) Final RDW 10/04/2022 11:53:18 15.3 11.5-15.5 (%) Final Platelets 10/04/2022 11:53:18 214 140-400 (K/uL) Final MPV 10/04/2022 11:53:18 10.3 6.6-11.1 (fL) Final Nucleated erythrocytes/100 leukocytes [Ratio] in Blood by Automated count 10/04/2022 11:53:18 0 <=0 (/100 WBCs) Final Performing Location LAB[facility]ATORY [facility] [place] - [address] [place] [address]
--- OUTSIDE RECORDS SUMMARY | 2023-02-03 20:33 | External Medical Summary | Summary of Care ---
Author Name Unknown Organization [facility] Address [address] [place] [address] Phone [phone] Care Team Providers Care Instructional Supervisor Name Role Phone Nicola Prado MD Primary Care Provide r Reason for Visit * Reason Comments Medication Discussion Encounter Details Date Type Department Care Team Description 10/06/2022 Office Visit Pharmacy, [address] [place] [address] [place] [address] Encounter for medication review* Allergies Active Allergy [...] 6 2 Active Vitamin D3 1.25 MG (96754 UT) Oral Capsule Take 1 Capsule by [...] Tablet 1 3 Active Easy Touch Pen [place] 31G X 8 MM (Insulin Pen Needle)Indicatio ns:Type 2 diabetes mellitus with hemoglobin A1c goal of less than 8.0% ([facility]),Type 2 diabetes mellitus with stage 4 chronic kidney disease, unspecified whether emt intermediate insulin use ([facility]) Use up to six times daily with insulin. DXe11.9 600 Each 3 3 Active Albuterol Sulfate HFA 108 (90 Base) MCG/ACT Inhalation Aerosol SolutionIndicati ons:COPD exacerbation ([facility]),Chronic cough Inhale by mouth 2 Puffs every [...] Sureclick)Indica tions:Polyarticu lar psoriatic arthritis ([facility]),H/O psoriasis Inject 50 mg under the skin [...] ns:Dyslipidemia, goal LDL below 70,Atheroscleros is of [place] coronary artery of [place] heart without angina pectoris Take 1 Tablet [...] urinary tr act symptoms 07/13/2001 Atherosclerosis of [place] co ronary artery of [place] heart without angina pectoris Morbid obesity with [...] (transient ischemic attack) 02/04/2016 11/23/2017 Overview: [facility] Anemia of chronic renal [...] MANAGEMENT 07/22/2008 0 Overview: Kianna Lyn RN [phone] Examination following surgery 07/11/2008 Difficult intubation 07/10/2008 02/19/2020 Overview: Patient seen and examined in OR#1.Possible difficult intubation.TM distance about 5 cms.MP 3-4. Will plan FOB electively Due to current situation. EXAMINATION OF PARTICIPANT IN CLINICAL TRIAL-gen omics 07/04/2008 05/30/2009 Overview: Renamed Per Clinical Trials Billing Project. Study Titile: Genomic Markers for Patients with Cardiovascular Disease Project #[id number] PI: Miriam Roque MD Please call [phone] with study related questions Chronic coronary artery [...] at goal 07/04/2008 9 GENOMICS CARDIO RESEARCH OTHER*[id number] 200803/23/2016 Overview: Renamed Per Clinical Trials Billing Project. Study Titile: Genomic Markers for Patients with Cardiovascular Disease Project #[id number] PI: Miriam Roque MD Please call [phone] with study related questions Kidney disease, chronic, [...] this encounter Progress Notes * Karlene Alvarez, [facility] - 10/06/2022 1:00 PM EDT Images from the original note were not included. PHARMACY MTM PROGRESS NOTE [facility] [address] [facility] [place] [address] Service Delivery Delivery Method: Face to Face [...] after.. Associated Diagnoses: Pain Easy Touch Pen [place] 31G X 8 MM (Insulin Pen Needle) [...] placed on file. Vitamin D3 1.25 MG (29353 UT) Oral Capsule History Per Patient Associated [...] service: Patient Was the patient in a care home care (LTC) facility when the CMR was completed? No Pharmacist's availability for questions: Tuesday-Tuesday 8:00am-4:30pm Takeaway Information Will the Patient Takeaway be sent to the Patient or someone else? Patient Language Template for the Patient Takeaway: Cambodian Additional notes for the Patient Takeaway (optional): n/a I attest that I have reviewed and updated the patient's conditions, allergies, and medications to the best of my ability. Patient Access: Is patient utilizing [facility]? No; prefers local pharmacy Is patient utilizing [facility]? Yes Additional Call Notes 30 min Not [...] Milligan DO [address] [place] [address] 10/12/2022 Office Visit Nephrology Quin Narvaez MD [address] [facility] [place] [address] 10/21/2022 Office Visit Family Medicine Nicola Prado MD [address] [place] [address] [place] [address] 10/22/2022 Cardiac Studies Cardiology Keith Pickard [facility] [address] [place] [address] 11/17/2022 Office Visit [address] [place] [address] 11/30/2022 Office Visit Urology Denny Armando MD [address] [place] [address] [place] [address] 12/20/2022 Office Visit Dermatology Meron Aragon PA-C [address] [place] [address] [place] [address] 01/24/2023 Office Visit Rheumatology Ashley Mancilla PA-C 03/04/2023 Office Visit Gastroenterology Marielena Hall CRNP [address] [place] [address] 03/29/2023 Office Visit Cardiology Blair Hannah PA-C [address] [place] [address] 06/02/2023 Nurse Only Ancillary Nurse Neeraj Annual [address] [place] [address] Scheduled Procedures Name Priority Associated Diagnoses Date/Ti [...] this encounter Medical Devices Implanted Type Area Police Chief Deputy Device Identifier Shelf Expiration Date Model / Serial / Lot Sut Steel 6 [id number] - [id number] Implanted:Qty: 6 on 07/10/2008 [place] [facility] [place]: Chest DO NOT USE 08/14/2012 [id number] / / [id number] documented as of this encounter Visit Diagnoses Diagnosis Encounter for medication review- Primary Encounter for long-term (current) use of other medications documented in this encounter Advance Directives Documents on File Type Date Recorded Patient Pharmacy Ancillary Expl anation Power of Machine Tack Puller 06/26/2019 POWER OF A TTORNEY Advance Directives [...] the patient have Health Care Power of Machine Tack Puller? No Code Status History Code Status Date [...] patient or by statute hierarchy) Care Teams Instructional Supervisor Relationship Specialty Start Date End Date Nicola Prado MD [address] [place] [address] [place] [id number] PCP - General Family Medicine 06/19/21 documented as of this encounter
--- OUTSIDE RECORDS SUMMARY | 2023-02-03 20:33 | External Medical Summary | Summary of Care ---
Author Name Unknown Organization [facility] Address [address] [place] [address] Phone [phone] Care Team Providers Care Leaf Tier Name Role Phone Nicola Prado MD Primary Care Provide r Reason for Visit * Reason Onset Date Comments Advice 10/01/2022 Encounter Details Date Type Department Care Team Description 10/01/2022 Telephone Family Medicine [address] [phone] Nicola Prado MD [address] [place] [address] [place] [address] Advice Allergies Active Allergy Reactions Severity Noted [...] 6 06/26/2021 Active Vitamin D3 1.25 MG (70029 UT) Oral Capsule Take 1 Capsule by [...] of less than 8.0% ([facility]) Inject 110 Units under the skin in [...] not taking.Reported on 09/21/2022 Easy Touch Pen [place] 31G X 8 MM (Insulin Pen Needle)Indications: Type 2 diabetes mellitus with hemoglobin A1c goal of less than 8.0% ([facility]),Type 2 diabetes mellitus with stage 4 chronic kidney disease, unspecified whether director long term care insulin use ([facility]) Use up to six times daily [...] to inject octreotide 180 Each 09/01/2022 Active Ezetimibe 10 MG Oral Tablet (Zetia)Indications: Dyslipidemia, goal LDL below 70,Atherosclerosis of [place] coronary artery of [place] heart without angina pectoris Take 1 Tablet [...] urinary tr act symptoms 07/13/2001 Atherosclerosis of [place] co ronary artery of [place] heart without angina pectoris Morbid obesity with [...] (transient ischemic attack) 02/04/2016 11/23/2017 Overview: [facility] Anemia of chronic renal failure 07/30/2015 [...] MANAGEMENT 07/22/2008 0 Overview: Kianna Lyn RN [phone] Examination following surgery 07/11/2008 Difficult intubation 07/10/2008 02/19/2020 Overview: Patient seen and examined in OR#1.Possible difficult intubation.TM distance about 5 cms.MP 3-4. Will plan FOB electively Due to current situation. EXAMINATION OF PARTICIPANT IN CLINICAL TRIAL-gen omics 07/04/2008 05/30/2009 Overview: Renamed Per Clinical Trials Billing Project. Study Titile: Genomic Markers for Patients with Cardiovascular Disease Project #[id number] PI: Miriam Roque MD Please call [phone] with study related questions Chronic coronary artery [...] at goal 07/04/2008 9 GENOMICS CARDIO RESEARCH OTHER*[id number] 200803/23/2016 Overview: Renamed Per Clinical Trials Billing Project. Study Titile: Genomic Markers for Patients with Cardiovascular Disease Project #[id number] PI: Miriam Roque MD Please call [phone] with study related questions Kidney disease, chronic, [...] 12/09/2020,05/09/2020,04/11/2020 COVID-19, LNP-s, No Preserve , Juan Manule-sucrose, Ages 12+ (Pfizer) 06/04/2021 H1N1 2009 Influenza, [...] encounter Miscellaneous Notes * Telephone Encounter - Aide Morrison RN - 10/04/2022 1:52 PM EDT Spoke to pt , he is doing well, he just got back from a great visit in the [place], pt wanted to thank me because he got his [employer] card for his annual wellness visit . Pt has no other complaints and will see me in May. Direct # given if any concerns for me. * Telephone Encounter - Eda Mcintosh LPN - 10/01/2022 4:25 PM EDT Maybe the pt is referring to the annual wellness nurse visits that he has yearly? * Telephone Encounter - KATHE Rudolph - 10/01/2022 3:43 PM EDT Pt is calling in stating that he sees a certain nurse every year and would like to talk to her. It was explained that I not sure of which nurse he is talking about nor am I able to transfer him. He declined to state what the call was about. Please advise documented in this encounter Plan of Treatment Upcoming Encounters Date Type Specialty Care Team Description 10/06/2022 Office Visit [address] [place] [address] 10/06/2022 Office Visit [address] [place] [address] 10/11/2022 Office Visit Sleep Disorders Eulalia Milligan, [address] [place] [address] 10/12/2022 Office Visit Nephrology Quin Narvaez MD [address] [place] [address] 10/21/2022 Office Visit Family Medicine Nicola Prado MD [address] [place] [address] [place] [address] 11/30/2022 Office Visit Urology Denny Armando MD [address] [place] [address] [place] [address] 12/20/2022 Office Visit Dermatology Meron Aragon PA-C [address] [place] [address] [place] [address] 01/24/2023 Office Visit Rheumatology Ashley Mancilla PA-C 03/04/2023 Office Visit Gastroenterology Marielena Hall CRNP [address] [place] [address] 03/29/2023 Office Visit Cardiology Blair Hannah PA-C [address] [place] [address] 06/02/2023 Nurse Only Ancillary Neeraj Nurse Annual Wellness [address] [place] [address] [place] [address] Scheduled Procedures Name Priority Associated Diagnoses Date/Ti [...] 10/23/2019, Additional history exists HbA1c 10/23/2022 04/22/2022, 0909/2021, 02/16/2021, Additional history exists O2 ASSESSMENT COMPLETED [...] this encounter Medical Devices Implanted Type Area Instrument Adjuster Device Identifier Shelf Expiration Date Model / Serial / Lot Sut Steel 6 M654g - [id number] [place]ed:Q[place] 6 [place] [facility] [place] Chest DO NOT USE 08/14/2012 [id number] / / [id number] documented as of this encounter Advance Directives Documents on File Type Date Recorded Patient Fine Arts Chair Expl anation Power of Section 8 Property Manager 06/26/2019 POWER OF A TTORNEY Advance [...] the patient have Health Care Power of Section 8 Property Manager? No Code Status History Code Status [...] patient or by statute hierarchy) Care Teams Leaf Tier Relationship Specialty Start Date End Date Nicola Prado MD [address] [place] [address] [place] [address] PCP - General Family Medicine 06/19/21 documented as of this encounter
--- OUTSIDE RECORDS SUMMARY | 2023-02-03 20:34 | External Medical Summary | Summary of Care ---
Author Name Unknown Organization [facility] Address [address] [place] [address] Phone [phone] Care Team Providers Care Dog Breeder Name Role Phone Nicola Prado MD Primary Care Provide r Reason for Visit * Reason Onset Date Comments Advice 09/27/2022 Encounter Details Date Type Department Care Team Description 09/27/2022 Telephone NephrologyMindi [address] [facility] [place] [address] Quin Narvaez MD [address] [place] [address] Advice Allergies Active Allergy Reactions Severity Noted Date Comments Hydromorphone High 09/20/2021 Other reaction(s): Nausea Other reaction(s): Nausea 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/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 Other reaction(s): AMS Other reaction(s): AMS Prasugrel 04/02/2016 bleeding Prednisone High 09/20/2021 Other reaction(s): INCREASE BLOOD SUGAR Other reaction(s): INCREASE BLOOD SUGAR documented as of this encounter (statuses as of 09/30/2022) Medications Medication Sig Dispensed Refills Start Date [...] 6 06/26/2021 Active Vitamin D3 1.25 MG (39031 UT) Oral Capsule Take 1 Capsule by [...] less than 8.0% ([facility]) Inject 110 Units under the skin [...] not taking.Reported on 09/21/2022 Easy Touch Pen [place] 31G X 8 MM (Insulin Pen Needle)Indications: Type 2 diabetes mellitus with hemoglobin A1c goal of less than 8.0% ([facility]),Type 2 diabetes mellitus with stage 4 chronic kidney disease, unspecified whether rn long term care insulin use ([facility]) Use up to six times daily with insulin. 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 4 mL 1 08/04/2022 Active Octreotide Acetate 50 MCG/ML Injection Solution (Sandostatin) Inject 50mcg under the skin in the morning and the evening 180 mL 1 09/01/2022 Active BD TB Syringe 27G X 1/2" 1 ML (Tuberculin Syringe) Use twice daily to inject octreotide 180 Each 09/01/2022 Active Hospital, Clinic, or Other Facility [...] as of this encounter (statuses as of 09/30/2022) Active Problems Problem Noted Date Hypertensive heart [...] urinary tr act symptoms 07/13/2001 Atherosclerosis of [place] co ronary artery of [place] heart without angina pectoris Morbid obesity with BMI of 40.0-44.9, ad ult documented as of this encounter (statuses as of 09/30/2022) Resolved Problems Problem Noted Date Resolved Date [...] MANAGEMENT 07/22/2008 0 Overview: Kianna Lyn RN [phone] Examination following surgery 07/11/2008 Difficult intubation 07/10/2008 02/19/2020 Overview: Patient seen and examined in OR#1.Possible difficult intubation.TM distance about 5 cms.MP 3-4. Will plan FOB electively Due to current situation. EXAMINATION OF PARTICIPANT IN CLINICAL TRIAL-gen omics 07/04/2008 05/30/2009 Overview: Renamed Per Clinical Trials Billing Project. Study Titile: Genomic Markers for Patients with Cardiovascular Disease Project #[id number] PI: Miriam Roque MD Please call [phone] with study related questions Chronic coronary artery [...] at goal 07/04/2008 9 GENOMICS CARDIO RESEARCH OTHER*[id number] 200803/23/2016 Overview: Renamed Per Clinical Trials Billing Project. Study Titile: Genomic Markers for Patients with Cardiovascular Disease Project #[id number] PI: Miriam Roque MD Please call [phone] with study related questions Kidney disease, chronic, [...] as of this encounter (statuses as of 09/30/2022) Immunizations Name Administration Dates Next Due COVID-19 mRNA, LNP-s, No Pre serve, 2-Dose Series ([facility]) 12/09/2020,05/09/2020,04/11/2020 COVID-19, LNP-s, No Preserve , Juan Manuel-sucrose, Ages 12+ (Pfizer) 06/04/2021 H1N1 2009 Influenza, IM 01/04/2009 MMR - Measles/Mumps/Rubella Vaccine 08/01/1996 Pneumococcal Conjugate Vacc, 13 Valent (Prevnar) 02/22/2014 Pneumococcal Conjugate Vacci ne, 7 Valent 11/20/2002 Pneumococcal Polysaccharide PPV23 (Pneumovax) 04/30/2008 Seasonal Influenza, Quadriva lent Hd (Fluzone Hd) 10/22/2021,11/10/2020 Seasonal Influenza, Quadriva lent, No Preserve, 6 Mons & Above, IM 11/23/2017,11/04/2016 11/04/2017 Seasonal Influenza, Quadriva lent, No Preserve, Adjuvanted, 65+ Yrs, IM 10/23/2019 Seasonal Influenza, Quadriva lent, No Preserve, IM [...] Telephone Encounter - Quin Narvaez MD - 09/30/2022 4:12 PM EDT Labs, recent events reviewed Labs showed lrenal function at worse end of hsi range They were drawn late August around the time of an acute illness episode where he didn't eat/drink, was apparently concern for stroke, had severe OLIVER. Recommned -recheck bmp next 1-2 wks now that he has recovered somewhat * Telephone Encounter - Yesica Mclaughlin [facility] - 09/27/2022 11:00 AM EDT Pt calling in stating he hasn't heard anything from office on his kidney function. He would like tasneem called to discuss [phone] Thank you, Yesica Mclaughlin CPhT II Spring Repairer Helper Hand [facility] ([facility]) (Formerly Telepharmacy) 09/27/2022, 11:01 AM documented in this encounter Plan of Treatment Upcoming Encounters Date Type Specialty Care Team Description 10/06/2022 Office Visit Pharmacy [address] [place] [address] 10/06/2022 Office Visit Pharmacy [address] [place] [address] 10/07/2022 Cardiac Studies Cardiology [facility] [address] [place] [address] 10/11/2022 Office Visit Sleep Disorders Eulalia Milligan DO [address] [place] [address] 10/12/2022 Office Visit Nephrology Quin Narvaez MD [address] [place] [address] 10/21/2022 Office Visit Family Medicine Nicola Prado MD [address] [place] [address] [place] [address] 11/30/2022 Office Visit Urology Denny Armando MD [address] [place] [address] [place] [address] 12/20/2022 Office Visit Dermatology Meron Aragon PA-C [address] [place] [address] [place] [address] 01/24/2023 Office Visit Rheumatology Ashley Mancilla PA-C 03/04/2023 Office Visit Gastroenterology Marielena Hall CRNP [address] [place] [address] 03/29/2023 Office Visit Cardiology Blair Hannah PA-C [address] [place] [address] 06/02/2023 Nurse Only Ancillary Neeraj Nurse Annual Wellness [address] [place] [address] [place] [address] Scheduled Procedures Name Priority Associated Diagnoses Date/Ti [...] this encounter Medical Devices Implanted Type Area Distribution Supervisor Device Identifier Shelf Expiration Date Model / Serial / Lot Sut Steel 6 M654g - [id number] Implanted:Qty: 6 on 07/10/[address] [facility] [place] N/A: Chest DO NOT USE 08/14/2012 M654G / / [id number] documented as of this encounter Advance Directives Documents on File Type Date Recorded Patient Chemical Engineering Technician Expl anation Power of Poultry Sexer 06/26/2019 POWER OF A TTORNEY Advance Directives [...] the patient have Health Care Power of Poultry Sexer? No Code Status History Code Status Date [...] patient or by statute hierarchy) Care Teams Dog Breeder Relationship Specialty Start Date End Date Nicola Prado MD [address] [place] [address] [place] [address] PCP - General Family Medicine 06/19/21 documented as of this encounter
--- OUTSIDE RECORDS SUMMARY | 2023-02-03 20:34 | External Medical Summary | Summary of Care ---
Author Name Unknown Organization [facility] Address [address] [place] [address] Phone [phone] Care Team Providers Care Alarm Service Technician Name Role Phone Nicola Prado MD Primary Care Provide r Reason for Visit * Reason Onset Date Comments Advice 09/27/2022 Encounter Details Date Type Department Care Team Description 09/27/2022 Telephone NephrologyMindi 200 [facility] [place] [address] Quin Narvaez MD [address] [place] [address] Advice Allergies Active Allergy Reactions Severity Noted Date Comments Hydromorphone High 09/20/2021 Other reaction(s): Nausea Other reaction(s): Nausea 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/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 Other reaction(s): AMS Other reaction(s): AMS Prasugrel 04/02/2016 bleeding Prednisone High 09/20/2021 Other reaction(s): INCREASE BLOOD SUGAR Other reaction(s): INCREASE BLOOD SUGAR documented as of this encounter (statuses as of 09/29/2022) Medications Medication Sig Dispensed Refills Start Date [...] 6 06/26/2021 Active Vitamin D3 1.25 MG (50088 UT) Oral Capsule Take 1 Capsule by [...] goal of less than 8.0% ([facility]) Inject 110 Units under the skin in [...] not taking.Reported on 09/21/2022 Easy Touch Pen [place] 31G X 8 MM (Insulin Pen Needle)Indications: Type 2 diabetes mellitus with hemoglobin A1c goal of less than 8.0% ([facility]),Type 2 diabetes mellitus with stage 4 chronic kidney disease, unspecified whether label operator insulin use ([facility]) Use up to six times daily with insulin. DXe11.9 600 Each 3 05/22/2022 Active Albuterol Sulfate HFA 108 (90 Base) MCG/ACT Inhalation Aerosol SolutionIndications :COPD exacerbation ([facility]),Chronic cough Inhale by mouth 2 Puffs every 4 hours as needed for Cough or Shortness of Breath. Reports doesn't help 18 g 2 05/27/2022 Active Additional Information Patient not taking.Reported on 08/11/2022 Victoza 18 MG/3ML Subcutaneous Solution Pen-injector (Liraglutide)Indica tions:Type 2 diabetes mellitus with hemoglobin A1c goal of less than 8.0% ([facility]),Type 2 diabetes mellitus with stage 4 chronic kidney disease, with long-term current use of insulin ([facility]) Inject 1.8 mg under the skin daily. 27 mL 3 07/23/2022 Active Furosemide 80 MG Oral Tablet (Lasix) Take 1 Tablet by mouth in the morning. 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[facility]),H/O psoriasis Inject 50 mg under the skin [...] as of this encounter (statuses as of 09/29/2022) Active Problems Problem Noted Date Hypertensive heart [...] urinary tr act symptoms 07/13/2001 Atherosclerosis of [place] co ronary artery of [place] heart without angina pectoris Morbid obesity with BMI of 40.0-44.9, ad ult documented as of this encounter (statuses as of 09/29/2022) Resolved Problems Problem Noted Date Resolved Date [...] MANAGEMENT 07/22/2008 0 Overview: Kianna Lyn RN [phone] Examination following surgery 07/11/2008 Difficult intubation 07/10/2008 02/19/2020 Overview: Patient seen and examined in OR#1.Possible difficult intubation.TM distance about 5 cms.MP 3-4. Will plan FOB electively Due to current situation. EXAMINATION OF PARTICIPANT IN CLINICAL TRIAL-gen omics 07/04/2008 05/30/2009 Overview: Renamed Per Clinical Trials Billing Project. Study Titile: Genomic Markers for Patients with Cardiovascular Disease Project #[id number] PI: Miriam Roque MD Please call [phone] with study related questions Chronic coronary artery [...] at goal 07/04/2008 9 GENOMICS CARDIO RESEARCH OTHER*[id number] 200803/23/2016 Overview: Renamed Per Clinical Trials Billing Project. Study Titile: Genomic Markers for Patients with Cardiovascular Disease Project #[id number] PI: Miriam Roque MD Please call [phone] with study related questions Kidney disease, chronic, [...] as of this encounter (statuses as of 09/29/2022) Immunizations Name Administration Dates Next Due COVID-19 mRNA, LNP-s, No Pre serve, 2-Dose Series (Pfizer) 12/09/2020,05/09/2020,04/11/2020 COVID-19, LNP-s, No Preserve , Juan Manuel-sucrose, Ages 12+ (Pfizer) 06/04/2021 H1N1 2009 Influenza, IM 01/04/2009 MMR - Measles/Mumps/Rubella Vaccine 08/01/1996 Pneumococcal Conjugate Vacc, 13 Valent (Prevnar) 02/22/2014 Pneumococcal Polysaccharide PPV23 (Pneumovax) 04/30/2008 Seasonal Influenza, [...] encounter Miscellaneous Notes * Telephone Encounter - Yesica Mclaughlin CPhT - 09/27/2022 11:00 AM EDT Pt calling in stating he hasn't heard anything from office on his kidney function. He would like tasneem called to discuss [phone] Thank you, Yesica Mclaughlin CPhT II Soa Integration Developer [facility] ([facility]) (Formerly Telepharmacy) 09/27/2022, 11:01 AM documented in this encounter Plan of Treatment Upcoming Encounters Date Type Specialty Care Team Description 10/06/2022 Office Visit Pharmacy [address] [place] [address] 10/06/2022 Office Visit Pharmacy [address] [place] [address] 10/07/2022 Cardiac Studies Cardiology Keith Pickard [facility] [address] [place] [address] 10/11/2022 Office Visit Sleep Disorders Eulalia Milligan DO [address] [place] [address] 10/12/2022 Office Visit Nephrology Quin Narvaez MD [address] [place] [address] 10/21/2022 Office Visit Family Medicine Nicola Prado MD [address] [place] [address] [place] [address] 11/30/2022 Office Visit Urology Denny Armando MD [address] [place] [address] [place] [address] 12/20/2022 Office Visit Dermatology Meron Aragon PA-C [address] [place] [address] [place] [address] 01/24/2023 Office Visit Rheumatology Ashley Mancilla PA-C 03/04/2023 Office Visit Gastroenterology Marielena Hall CRNP [address] [place] [address] 03/29/2023 Office Visit Cardiology Blair Hannah PA-C [address] [place] [address] 06/02/2023 Nurse Only Ancillary Nurse Neeraj Annual [facility] [address] [place] [address] [place] [address] Scheduled Procedures Name Priority Associated Diagnoses Date/Ti [...] encounter Medical Devices Implanted Type Area Police Officer Crime Prevention Device Identifier Shelf Expiration Date Model / Serial / Lot Lei Agrawal 6 M654g - [id number] Implanted:Qty: 6 on 07/10/2008 at [place] [facility] [place] N/A: Chest DO NOT USE 08/14/2012 [id number] / / [id number] documented as of this encounter Advance Directives Documents on File Type Date Recorded Patient Hitcher Expl anation Power of Sales Engagement Manager 06/26/2019 POWER OF A TTORNEY Advance [...] the patient have Health Care Power of Sales Engagement Manager? No Code Status History Code Status [...] patient or by statute hierarchy) Care Teams Alarm Service Technician Relationship Specialty Start Date End Date Nicola Prado MD [address] [place] [address] [place] [address] PCP - General Family Medicine 06/19/21 documented as of this encounter
--- OUTSIDE RECORDS SUMMARY | 2023-02-03 20:34 | External Medical Summary | Summary of Care ---
Author Name Unknown Organization [facility] Address [address] [place] [address] Phone [phone] Care Team Providers Care Features Reporter Name Role Phone Nicola Prado MD Primary Care Provide r Reason for Visit * Reason Onset Date Comments Test Results 09/23/2022 Unexpected or In determinate Result Encounter Details Date Type Department Care Team Description 09/23/[address] [phone] Alissa Drew PA-C [address] [place] [address] [place] [id number] Test Results (Unexpected or Indeterminate ... Allergies Active Allergy Reactions Severity Noted Date Comments Hydromorphone High 09/20/2021 Other reaction(s): Nausea Other reaction(s): Nausea 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/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 Other reaction(s): AMS Other reaction(s): AMS Prasugrel 04/02/2016 bleeding Prednisone High 09/20/2021 Other reaction(s): INCREASE BLOOD SUGAR Other reaction(s): INCREASE BLOOD SUGAR documented as of this encounter (statuses as of 09/23/2022) Medications Medication Sig Dispensed Refills Start Date [...] 6 06/26/2021 Active Vitamin D3 1.25 MG (86608 UT) Oral Capsule Take 1 Capsule by [...] or chew 40 Tablet 2 12/17/2021 Active Ionic SecurityTouch UltraSoft LancetsIndications: Type 2 diabetes mellitus with [...] of less than 8.0% ([facility]) Inject 110 Units under the skin [...] not taking.Reported on 09/21/2022 Easy Touch Pen [place] 31G X 8 MM (Insulin Pen Needle)Indications: Type 2 diabetes mellitus with hemoglobin A1c goal of less than 8.0% ([facility]),Type 2 diabetes mellitus with stage 4 chronic kidney disease, unspecified whether retirement insulin use ([facility]) Use up to six times daily with insulin. 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[facility]),H/O psoriasis Inject 50 [...] as of this encounter (statuses as of 09/23/2022) Active Problems Problem Noted Date Hypertensive heart [...] urinary tr act symptoms 07/13/2001 Atherosclerosis of [place] ronary artery of [place] heart without angina pectoris Morbid obesity with BMI of 40.0-44.9, ad ult documented as of this encounter (statuses as of 09/23/2022) Resolved Problems Problem Noted Date Resolved Date [...] (transient ischemic attack) 02/04/2016 11/23/2017 Overview: [facility] Anemia of chronic renal failure 07/30/2015 [...] MANAGEMENT 07/22/2008 0 Overview: Kianna Lyn RN [phone] Examination following surgery 07/11/2008 Difficult intubation 07/10/2008 02/19/2020 Overview: Patient seen and examined in OR#1.Possible difficult intubation.TM distance about 5 cms.MP 3-4. Will plan FOB electively Due to current situation. EXAMINATION OF PARTICIPANT IN CLINICAL TRIAL-gen omics 07/04/2008 05/30/2009 Overview: Renamed Per Clinical Trials Billing Project. Study Titile: Genomic Markers for Patients with Cardiovascular Disease Project #[id number] PI: Miriam Roque MD Please call [phone] with study related questions Chronic coronary artery [...] at goal 07/04/2008 9 GENOMICS CARDIO RESEARCH OTHER*[id number] 200803/23/2016 Overview: Renamed Per Clinical Trials Billing Project. Study Titile: Genomic Markers for Patients with Cardiovascular Disease Project #[id number] PI: Miriam Roque MD Please call [phone] with study related questions Kidney disease, chronic, [...] as of this encounter (statuses as of 09/23/2022) Immunizations Name Administration Dates Next Due COVID-19 mRNA, LNP-s, No Pre serve, 2-Dose Series ([employer]) 12/09/2020,05/09/2020,04/11/2020 COVID-19, LNP-s, No Preserve , Juan [...] Miscellaneous Notes * Telephone Encounter - KATHE Burdick - 09/23/2022 3:46 PM EDT Hello- The radiologist discovered an unexpected or indeterminate finding on Maurisio Beltran ([id number]) and asks that you review the following report. Study Type: CT HEAD/BRAIN WO CONTRAST 09/22/2022 IMPRESSION: 1. No acute intracranial abnormality. Specifically, no acute territorial infarct, mass, or hemorrhage. 2. Left maxillary sinus frothy mucus may indicate acute sinusitis. 3. Chronic brain parenchymal volume loss. Anterior and posterior circulation arterial atherosclerotic calcification. Please respond to this encounter to acknowledge receipt of this message and take responsibility to ensure this report is reviewed. Thank you, KATHE Burdick Client Service [facility] documented in this encounter Plan of Treatment Upcoming Encounters Date Type Specialty Care Team Description 10/04/[address] [place] [address] 10/07/2022 Cardiac Studies Cardiology Keith Pickard [facility] [address] [place] [address] 10/11/2022 Office Visit Sleep Disorders Eulalia Milligan DO [address] [place] [address] 10/12/2022 [facility]ph[facility] [address] [facility] [address] 10/25/2022 Office Visit Family Medicine Nicola Prado MD [address] [place] [address] [place] [address] 11/30/2022 Office Visit Urology Denny Armando MD [address] [place] [address] [place] [phone] 12/20/2022 Office Visit Dermatology Meron Aragon PA-C [address] [place] [address] [place] [address] 01/24/2023 Office Visit Rheumatology Ashley Mancilla PA-C 03/04/2023 Office Visit Gastroenterology Marielena Hall CRNP [address] [place] [address] 03/29/2023 Office Visit Cardiology Blair Hannah PA-C [address] [place] [address] 06/02/2023 Nurse Only Ancillary Neeraj Nurse Annual [facility] [address] [place] [address] [place] [address] Scheduled Procedures Name Priority Associated Diagnoses Date/Ti [...] this encounter Medical Devices Implanted Type Area Bobbin Winder Tender Device Identifier Shelf Expiration Date Model / Serial / Lot Sut Steel 6 [id number] - [id number] Implanted:Qty: 6 on 07/10/2008 at OR [facility] [place] N/A: Chest DO NOT USE 08/14/2012 [id number] / / [id number] documented as of this encounter Advance Directives Documents on File Type Date Recorded 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 No Code Status History Code Status [...] patient or by statute hierarchy) Care Teams Features Reporter Relationship Specialty Start Date End Date Nicola Prado MD [address] [place] [address] [place] [phone] PCP - General Family Medicine 06/19/21 documented as of this encounter
--- OUTSIDE RECORDS SUMMARY | 2023-02-03 20:34 | External Medical Summary | Summary of Care ---
Author Name Unknown Organization [facility] Address [address] [place] [address] Phone [phone] Care Team Providers Care Topographical Field Assistant Name Role Phone Nicola Prado MD Primary Care Provide r Reason for Visit * Reason Onset Date Comments Advice 09/27/2022 Encounter Details Date Type Department Care Team Description 09/27/2022 Telephone NephrologyMindi [address] [place] [address] Quin Narvaez MD [address] [place] [address] Advice Allergies Active Allergy Reactions Severity Noted Date Comments Hydromorphone High 09/20/2021 Other reaction(s): Nausea Other reaction(s): Nausea 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/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 Other reaction(s): AMS Other reaction(s): AMS Prasugrel 04/02/2016 bleeding Prednisone High 09/20/2021 Other reaction(s): INCREASE BLOOD SUGAR Other reaction(s): INCREASE BLOOD SUGAR documented as of this encounter (statuses as of 10/01/2022) Medications Medication Sig Dispensed Refills Start Date [...] 6 06/26/2021 Active Vitamin D3 1.25 MG (06565 UT) Oral Capsule Take 1 Capsule by [...] than 8.0% ([facility]) Inject 110 Units under the [...] not taking.Reported on 09/21/2022 Easy Touch Pen [place] 31G X 8 MM (Insulin Pen Needle)Indications: Type 2 diabetes mellitus with hemoglobin A1c goal of less than 8.0% ([facility]),Type 2 diabetes mellitus with stage 4 chronic kidney disease, 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[facility]),H/O psoriasis Inject 50 mg under [...] as of this encounter (statuses as of 10/01/2022) Active Problems Problem Noted Date Hypertensive heart [...] urinary tr act symptoms 07/13/2001 Atherosclerosis of [place] co ronary artery of [place] heart without angina pectoris Morbid obesity with BMI of 40.0-44.9, ad ult documented as of this encounter (statuses as of 10/01/2022) Resolved Problems Problem Noted Date Resolved Date [...] ischemic attack) 02/04/2016 11/23/2017 Overview: [facility] Anemia of chronic renal failure [...] MANAGEMENT 07/22/2008 0 Overview: Kianna Lyn RN [phone] Examination following surgery 07/11/2008 Difficult intubation 07/10/2008 02/19/2020 Overview: Patient seen and examined in OR#1.Possible difficult intubation.TM distance about 5 cms.MP 3-4. Will plan FOB electively Due to current situation. EXAMINATION OF PARTICIPANT IN CLINICAL TRIAL-gen omics 07/04/2008 05/30/2009 Overview: Renamed Per Clinical Trials Billing Project. Study Titile: Genomic Markers for Patients with Cardiovascular Disease Project #[id number] PI: Miriam Roque MD Please call [phone] with study related questions Chronic coronary artery [...] at goal 07/04/2008 9 GENOMICS CARDIO RESEARCH OTHER*[id number] 200803/23/2016 Overview: Renamed Per Clinical Trials Billing Project. Study Titile: Genomic Markers for Patients with Cardiovascular Disease Project #[id number] PI: Miriam Roque MD Please call [phone] with study related questions Kidney disease, chronic, [...] as of this encounter (statuses as of 10/01/2022) Immunizations Name Administration Dates Next Due COVID-19 [...] Addendum Note - Eber Duran LPN - 10/01/2022 11:00 AM EDTAddended by: EBER DURAN on: 10/01/2022 11:00 AM Modules accepted: Orders * Telephone Encounter - Eber Duran LPN - 10/01/2022 10:57 AM EDT Spoke with patient about results. He will repeat labs in the next 1-2 weeks. Lab ordered placed. * Telephone Encounter - Quin Narvaez MD [...] somewhat * Telephone Encounter - Yesica Mclaughlin CPhT - 09/27/2022 11:00 AM EDT Pt calling in stating he hasn't heard anything from office on his kidney function. He would like tasneem called to discuss [phone] Thank you, Yesica Mclaughlin CPhT II Peat Shredder Tender [facility] ([facility]) 09/27/2022, 11:01 AM documented in this encounter Plan of Treatment Upcoming Encounters Date Type Specialty Care Team Description 10/06/2022 Office Visit Pharmacy [address] [place] [address] 10/06/2022 Office Visit Pharmacy [address] [place] [address] 10/07/2022 Cardiac Studies Cardiology Keith Pickard [facility] [address] [place] [address] 10/11/2022 Office Visit Sleep Disorders Eulalia Milligan DO [address] [place] [address] 10/12/2022 Office Visit Nephrology Quin Narvaez MD [address] [place] [address] [place] [address] 10/21/2022 Office Visit Family Medicine Nicola Prado MD [address] [place] [address] [place] [address] 11/30/2022 Office Visit Urology Denny Armando MD [address] [place] [address] [place] [phone] 12/20/2022 Office Visit Dermatology Meron Aragon, PA-C [address] [place] [address] [place] [address] 01/24/2023 Office Visit Rheumatology Ashley Mancilla, JOSE ALFREDOC 03/04/2023 Office Visit Gastroenterology Marielena Hall CRNP [address] [place] [address] 03/29/2023 Office Visit Cardiology Blair Hannah PAJovanniC [address] [place] [address] 06/02/2023 Nurse Only Ancillary Neeraj, Nurse Annual [facility] [address] [place] [address] [place] [address] Scheduled Orders Name Type Priority Associated Diagnoses Orde r Schedule BASIC METABOLIC PANEL Lab Routine Proteinuria, unspecified type Anemia in stage 4 chronic kidney disease (HCC) Expected: 10/08/2022 (Approximate), Expires: 10/02/2023 Scheduled Procedures Name Priority Associated Diagnoses Date/Ti [...] this encounter Medical Devices Implanted Type Area Medical Art Therapist Device Identifier Shelf Expiration Date Model / Serial / Lot Sut [place] 6 M654g - [id number] Implanted:Qty: 6 on 07/10/2008 [place] [facility] [place]: Chest DO NOT USE 08/14/2012 [id number] / / [id number] documented as of this encounter Visit Diagnoses Diagnosis Stage 3b chronic kidney disease (HCC)- Primary Proteinuria, unspecified type Anemia in stage 4 chronic kidney disease (HCC) documented in this encounter Advance Directives Documents on File Type Date Recorded Patient Pulmonologist Intensivist Expl anation Power of Perch Machine Inspector 06/26/2019 POWER OF A TTORNEY Advance [...] the patient have Health Care Power of Perch Machine Inspector? No Code Status History Code Status [...] patient or by statute hierarchy) Care Teams Topographical Field Assistant Relationship Specialty Start Date End Date Nicola Prado MD [address] [place] [address] [place] [address] PCP - General Family Medicine 06/19/21 documented as of this encounter
--- OUTSIDE RECORDS SUMMARY | 2023-02-03 20:34 | External Medical Summary | Summary of Care ---
Author Name Unknown Organization [facility] Address [address] [place] [address] Phone [phone] Care Team Providers Care Industrial Paramedic Name Role Phone Nicola Prado MD Primary Care Provide r Reason for Visit * Reason Comments Follow Up 6 month follow up. C hest pain intermittent. Work up for recent stroke with CT tomorrow. SOB no worse then prior. Denies palpitations, dizziness and edema. Encounter Details Date Type Department Care Team Description 09/21/2022 Office Visit Cardiology [address] [place] [address] Blair Hannah PA-C [address] [place] [address] Atrioventricular block, Mobitz type 1, Wenckebach*; Chronic diastolic heart failure (HCC); Dyslipidemia, goal LDL below 70; Atherosclerosis of conf[place] coronary artery of [place] heart without angina pectoris; Coronary artery disease involving conf[place] coronary artery of [place] heart without angina pectoris Allergies Active Allergy [...] of major depressive disorder without prior episode ([facility]) Take 1 tablet by mouth daily in [...] 6 06/26/2021 Active Vitamin D3 1.25 MG (90518 UT) Oral Capsule Take 1 Capsule by [...] or chew 40 Tablet 2 12/17/2021 Active DerbyJackpotTouch UltraSoft LancetsIndications: Type 2 diabetes mellitus with hemoglobin A1c goal of less than 8.0% ([facility]) Test blood sugar up to five times daily; dx E11.9 450 Each 3 12/17/2021 Active OneTouch Ultra In Vitro Strip (Glucose Blood)Indications:T ype 2 diabetes mellitus with hemoglobin A1c goal of less than 8.0% ([facility]) 3-4 times a day 450 [...] hemoglobin A1c goal of less than 8.0% ([facility]) 12 units with breakfast and supper PLUS correction factor of 1:25 if over 140 mg/dL 110 mL 3 03/23/2022 Active Tresiba FlexTouch 200 UNIT/ML Subcutaneous Solution Pen-injector (Insulin Degludec)Indication s:Type 2 diabetes mellitus with hemoglobin A1c goal of less than 8.0% ([facility]) Inject 110 Units under the [...] not taking.Reported on 09/21/2022 Easy Touch Pen Foxworth 31G X 8 MM (Insulin Pen Needle)Indications: Type 2 diabetes mellitus with hemoglobin A1c goal of less than 8.0% ([facility]),Type 2 diabetes mellitus with stage 4 chronic kidney disease, unspecified whether 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 DXe11.9 600 Each 3 05/22/2022 Active Albuterol Sulfate HFA 108 (90 Base) MCG/ACT Inhalation Aerosol SolutionIndications :COPD exacerbation ([facility]),Chronic cough Inhale by mouth 2 Puffs every 4 hours as needed for Cough or Shortness of Breath. Reports doesn't help 18 g 2 05/27/2022 Active Additional Information Patient not taking.Reported on 08/11/2022 Victoza 18 MG/3ML Subcutaneous Solution Pen-injector (Liraglutide)Indica tions:Type 2 diabetes mellitus with hemoglobin A1c goal of less than 8.0% ([facility]),Type 2 diabetes mellitus with stage 4 chronic kidney disease, with long-term current use of insulin ([facility]) Inject 1.8 mg under the [...] urinary tr act symptoms 07/13/2001 Atherosclerosis of conf[place] co ronary artery of conf[place] heart without angina pectoris Morbid obesity with [...] use aero chamber. 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 Will plan FOB electively Due to current situation. EXAMINATION OF PARTICIPANT IN CLINICAL TRIAL-gen omics 07/04/2008 05/30/2009 Overview: Renamed Per Clinical Trials Billing Project. Study Titile: Genomic Markers for Patients with Cardiovascular Disease Project #[id number] PI: Fabienne Martinez MD Please call [phone] with study related questions Chronic coronary artery [...] at goal 07/04/2008 9 GENOMICS CARDIO RESEARCH OTHER*[id number] 200803/23/2016 Overview: Renamed Per Clinical Trials Billing Project. Study Titile: Genomic Markers for Patients with Cardiovascular Disease Project #[id number] PI: Fabienne Martinez MD Please call [phone] with study related questions Kidney disease, chronic, [...] Sign Reading Time Taken Comments Blood Pressure 110/64 09/21/2022 12:33 PM EDT Pulse 72 09/21/2022 12:33 PM EDT Temperature - - Respiratory Rate 16 09/21/2022 12:3 3 PM EDT Oxygen Saturation - - Inhaled Oxygen Concentration - - Weight 116.9 kg (257 lb 12.8 oz) 2022 12:33 PM EDT Height - - Body Mass Index 44.25 07/21/2022 5:13 PM EDT documented in this encounter Progress Notes * Blair Hannah PA-C - 09/21/2022 12:38 PM EDT History of Present Illness: Maurisio Beltran is a 82 year old male here today for cardiology follow-up. Back from the [place] at the end of July. Son went with him as he cannot see proper. Notes that this recent trip was probably his last. "They thought the other day I had a stroke, about two weeks ago." Terrible headache all night. Couldn't sleep all night. Couldn't eat. Couldn't remember anything for about 1/2 of a day. Couldn't answer. Took two Paracetamol from the [place] with improvement. Did not go [facility] ER. Saw Alissa Drew on 09/09/2022. Scheduled for a CT on 09/22/2022. Notes having a history of migraine headaches as a child. No ongoing neurologic deficit. No angina. No sublingual nitroglycerinuse. No tachypalpitations. No unusual shortness of breath. No cough, orthopnea, PND, or edema. No dizziness, near syncope, or syncope. No fevers or chills. No soaking sweats. + Hematuria x [address] Armando, flare up of the cancer. Stools are chronically black, on oral iron replacement. Utilizes supplemental oxygen at nighttime that is bled into his PAP machine. Sleep study completed last . Cardiac Problem List: 1. Coronary artery disease, status post coronary bypass grafting surgery x3 in 2008, along with multiple PCIs to the RCA and patent RCA stents with 2 patent grafts by cardiac catheterization August 2016. 2. High-degree heart block status post pacemaker placement 3. Hypertension 4. Dyslipidemia. Patient Active Problem List Diagnosis Code BPH without obstruction/lower urinary tract symptoms N40.0 Psoriasis L40.9 Generalized osteoarthritis M15.9 Iron deficiency anemia due to chronic blood loss D50.0 Atherosclerosis of [place] coronary artery of [place] heart without angina pectoris I25.10 Aortocoronary bypass status Z95.1 Type 2 diabetes mellitus with hemoglobin A1c goal of less than 8.0% ([facility]) E11.9 Dyslipidemia E78.5 Vitamin D deficiency E55.9 REENA-inhibitor cough R05.8, T46.4X5A Obstructive sleep apnea of adult G47.33 Psoriatic arthropathy ([facility]) L40.50 S/P primary angioplasty with coronary stent Z95.5 Stubbs's esophagus with dysplasia K22.719 Pulmonary hypertension (HCC) I27.20 Chronic diastolic heart failure ([facility]) I50.32 Gout M10.9 COPD, group D, by GOLD 2017 classification ([facility]) J44.9 Chronic respiratory failure with hypoxia ([facility]) J96.11 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 Morbid obesity with BMI of 40.0-44.9, adult ([facility]) E66.01, Z68.41 Vitamin B12 deficiency E53.8 Atrioventricular block, Mobitz type 1, Sohambach I44.1 S/P placement of cardiac pacemaker Z95.0 H/O dysplastic nevus Z86.018 Hx of nonmelanoma skin cancer Z85.828 Elevated prostate specific antigen (PSA) R97.20 Chronic pain of right hip M25.551, G89.29 Leg swelling M79.89 Anemia in stage 4 chronic kidney disease ([facility]) N18.4, D63.1 Macular degeneration of both eyes H35.30 HTN, goal below 140/90 I10 Current mild episode of major depressive disorder without prior episode ([facility]) F32.0 Type 2 diabetes mellitus with stage 4 chronic kidney disease, with long-term current use of insulin ([facility]) E11.22, N18.4, Z79.4 CHB (complete heart block) ([facility]) I44.2 Prostate cancer ([facility]) C61 Stage 3b chronic kidney disease ([facility]) N18.32 Plaque psoriasis L40.0 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 ([facility]) I13.0, I50.32, N18.4 Past Medical History: Diagnosis Date (HFpEF) heart failure with preserved ejection fraction ([facility]) Acute blood loss anemia 10/29/2020 [facility] transfused Acute exacerbation of chronic obstructive pulmonary disease (COPD) ([facility]) 05/11/2018 [facility] Altered mental status 03/31/2017 likely [...] cuff CKD (chronic kidney disease), stage IV ([facility]) GFR 26.5 COPD, mild (HCC) 08/21/2010 COPD, moderate ([facility]) 10/04/2014 PFT Coronary atherosclerosis of [place] coronary artery 07/04/[address] [facility] COVID-19 02/24/2021 Dermatophytosis of scalp or bello DM type 2 causing CKD stage 4 ([facility]) DM type 2, goal A1c [...] disease, chronic, stage III (GFR 30-59 ml/min) ([facility]) 06/2008 Malignant neoplasm of prostate (HCC) Prostate Mixed dyslipidemia Morbid obesity with BMI of 45.0-49.9, adult (HCC) Other psoriasis S/P primary angioplasty with coronary stent 09/05/2013 drug eluting stents to 60% RCA, other grafts open except SVG to PDA is occluded Sleep apnea CPAP Sleep apnea, obstructive Symptomatic anemia 10/29/2020 Admitted [facility] and transfused TIA (transient ischemic attack) 02/04/2016 [facility] Tubular adenoma 10/31/2020 Past Surgical History: Procedure Laterality Date BRACHYTHERAPY SEED,IRIDIUM 192 01/2004 BYPASS GRAFT ANGIOGRAPHY W/LEFT HEART CATH 09/05/2013 BYPASS GRAFT ANGIOGRAPHY W/LEFT HEART CATH performed by Aleisha Abraham MD at [facility]ARDI[facility] BYPASS GRAFT ANGIOGRAPHY W/RIGHT+LEFT CATH Right 08/25/2016 BYPASS GRAFT ANGIOGRAPHY W/RIGHT+LEFT CATH performed by Eliseo José MD at [facility] CABG, ARTERIAL, SINGLE 07/10/2008 CORONARY ARTERY BYPASS GRAFT USING ARTERY 1 GRAFT performed by BUDDY VILCHIS at OR [facility] CABG, ARTERY-VEIN, TWO 07/10/2008 CORONARY ARTERY BYPASS GRAFT ARTERIAL AND VENOUS 2 GRAFTS performed by BUDDY VILCHIS at OR [facility] CARDIAC CATH-CARDIOLOGY ONLY 09/05/2013 60% RCA, [...] 06/25/2015 adenomatous & hyperplastic polyps, repeat 3 yrs/[facility] COLONOSCOPY, DIAGNOSTIC (RECTUM) 04/20/2018 hyperplastic polyp, repeat 5 yrs/[facility] COLONOSCOPY, DIAGNOSTIC (RECTUM) 10/31/2020 adenomatous polyp, diverticulosis, repeat 3 yrs / [facility] COLONOSCOPY, REMOVE LESION, W/SNARE 06/25/2015 4 mm polyp ascending, 2 polyps in rectum, diverticulosis COMBINED RT & LEFT HEART CATHETERS 07/04/2008 RIGHT AND RETROGRADE LEFT HEART CATH performed by CANDELARIO VINES at [facility] COMBINED RT & LEFT HEART CATHETERS 01/01/2010 RIGHT AND RETROGRADE LEFT HEART CATH performed by KAREL OBANDO at [facility] CT HEAD/BRAIN WO CONTRAST N/A 02/04/2016 [...] by Jose Eduardo Valadez MD at ENDOSCOPY [facility] EGD, FLEXIBLE, DIAGNOSTIC 06/25/2015 esophagitis/[facility] EGD, FLEXIBLE, DIAGNOSTIC N/A 11/14/2020 two large inlet patches/patchey antral gastritis/biopsies show Barretts/EGD EGD, FLEXIBLE, DIAGNOSTIC 05/22/2021 Barretts, repeat 3 yrs / [facility] EGD, FLEXIBLE, DIAGNOSTIC 06/26/2021 normal / INPT [facility] EGD, FLEXIBLE, DIAGNOSTIC 09/09/2021 mildly inflammed mucosa on bx / [facility] EGD, FLEXIBLE, DIAGNOSTIC 10/30/2020 single bleeding angiodysplastic lesion in the jejunum / INPT [facility] EGD, FLEXIBLE, W/BIOPSY 11/14/2006 mild chronic inflammation EGD, FLEXIBLE, W/BIOPSY 04/25/2008 stomach gastritis, stubbs's esophagus, recommend f/u in 2 years EGD, FLEXIBLE, W/BIOPSY 06/25/2015 stomach and duodenum normal ENDO,VIDEO ASSIST HARVEST DILLON 07/10/2008 ENDOSCOPY VIDEO ASSISTED HARVEST VEIN performed by BUDDY VILCHIS at OR [facility] FLUORO SWALLOWING FUNCTION W VIDEO CINE 11/14/2017 moderate esophageal dysmotility, no mass or stricture FLUORO UPPER GI W AIR WO KUB 06/03/2014 normal HC VENOUS DUPLEX COMPLETE BILATERAL LOWER EXTREMITY Bilateral 11/14/2017 no DVT INSERT HEART ELECTRODE, DUAL CHAMBR 06/11/2020 [facility] INSERT IA PERCUT DEVICE 07/10/2008 INSERT INTRA AORTIC BALLOON ASSIST DEVICE PERCUTANEOUS performed by FABIENNE MARTINEZ at [facility] LEFT HEART CATHETERIZATION 07/04/2008 80% mid [...] 11/07/2020 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 Family History Problem Relation Age of Onset Asthma Brother Cancer Grandfather (Maternal) stomach Lung Disorder Father Cancer Aunt (Unspecified) Cancer Uncle (Unspecified) Heart Disorder Brother 46 [place] age 46 Heart Disorder Mother mi age 82 Diabetes Son 35 IDDM Mental Disorder Mother Received electric shcok in the [place] Blood Disorder Son "Thick Blood" Arthritis Son Social History Socioeconomic History Marital status: Spouse name: Cathryn Number of children: 2 Years of education: Not on file Highest education level: Not on file Occupational History 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 Employer: [employer] 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: [employer] Social Needs Financial resource strain: Not on file Food insecurity Worry: Never true Inability: Never true Transportation needs Medical: Not on file Non-medical: Not on file Tobacco Use Smoking status: Former Smoker Packs/day: 2.00 Years: 10.00 Pack years: 20.00 Types: Cigarettes Quit date: 01/27/1998 Years since quittin.5 Smokeless tobacco: Never Used Substance and Sexual Activity Alcohol use: No Drug use: No Sexual activity: Yes Partners: Female Lifestyle Physical activity Days per week: Not on file Minutes per session: Not on file Stress: Not on file Relationships Social connections Talks on phone: Not on file Gets together: Not on file Attends rastafarian service: Not on file Active member of club or organization: Not on file Attends meetings of clubs or organizations: Not on file Relationship status: Not on file Intimate partner violence Fear of current or ex partner: Not on file Emotionally abused: Not on file Physically abused: Not on file Forced sexual activity: Not on file Other Topics Concern Service Not Asked Blood Transfusions Yes Caffeine Concern Not Asked Occupational Exposure Not Asked Hobby Hazards Not Asked Sleep Concern Not Asked Stress Concern Not Asked Weight Concern Not Asked Special Diet Yes Comment: low salt, diabetic Back Care Not Asked Exercise Not Asked Bike Helmet Not Asked Seat Belt Not Asked Self-Exams Not Asked Social History Narrative Gini. 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 Complete Review of Systems is as stated above, negative, or noncontributory. Allergies as of 09/21/2022 - Reviewed 09/21/2022 Allergen Reaction Noted Hydromorphone 09/20/2021 Methylprednisolone 10/27/2016 Prednisone 09/20/2021 Prasugrel 04/02/2016 Current Outpatient Medications Medication Sig Dispense Refill [...] TabLET by mouth daily. 30 Tablet 11 Sertraline HCl 50 MG Oral Tablet (Zoloft) Take 1 tablet by mouth daily in the morning. 30 Tablet 1 Betamethasone Dipropionate 0.05 % External Ointment Apply 2x daily to rash on back/abdomen/arms/legs until resolved, then when flaring again 100 g 0 Probiotic Daily Oral Capsule Take by mouth 1 Capsule in the morning. Losartan Potassium 25 MG Oral Tablet (Cozaar) Take by mouth 1 Tablet in the morning. 30 Tablet 6 Vitamin D3 1.25 MG (75361 UT) Oral Capsule Take 1 Capsule by mouth in the morning. CPAP every night at bedtime . 2 Liters Diclofenac Sodium 1 % External Gel (Voltaren) Apply topically to affected area 2 g in the morning AND 2 g before bedtime. Apply to affected area of lower back up to twice a day as needed for pain. Wash hands after.. 100 g 1 Simethicone 80 MG Oral Tablet Chewable (Mylicon) Take by mouth 1 Tablet as needed in the morning AND 1 Tablet as needed at noon AND 1 Tablet as needed in the evening AND 1 Tablet as needed beforebedtime for Gas. 100 Tablet 0 Triamcinolone Acetonide 0.1 % External Ointment (Aristocort) Apply to rash on trunk/arms/legs 2x daily (when thinner and less noticeable and less bothersome) until resolved, then when flaring 454g 1 Allopurinol 300 MG Oral Tablet (Zyloprim) Take 1 Tablet by mouth daily. 90 Tablet 3 guaiFENesin ER 600 MG Oral Tablet Extended Release 12 Hour (Mucinex) Take by mouth 1 Tablet 2 times a day as needed for Congestion. Take with plenty of water. Do not cut, crush or chew 40 Tablet 2 OneTouch UltraSoft Lancets Test blood sugar up to five times daily; dx E11.9 450 Each 3 OneTouch Ultra In Vitro Strip (Glucose Blood) 3-4 times a day 450 Strip 3 Xiidra 5 % Ophthalmic Solution instill 1 drop by ophthalmic route 2 times every day into both eyes. OK for 90 day supply. Atorvastatin Calcium 80 MG Oral Tablet (Lipitor) Take 1 Tablet by mouth daily. 90 Tablet 2 Isosorbide Mononitrate ER 30 MG Oral Tablet Extended Release 24 Hour (Imdur) Take 1 Tablet by mouth daily. In the morning. 90 Tablet 3 NovoLOG FlexPen 100 UNIT/ML Subcutaneous Solution Pen-injector [...] Take 1 Capsule BY MOUTH in the morningAND 1 Capsule before bedtime. 60 Capsule 5 Easy Touch Pen Foxworth 31G X 8 MM (Insulin Pen Needle) Use up to six times daily with insulin. DXe11.9 600 Each 3 Victoza 18 MG/3ML Subcutaneous Solution Pen-injector (Liraglutide) Inject 1.8 mg under the skindaily. 27 mL 3 Furosemide 80 MG Oral [...] daily to inject octreotide 180 Each 1 Baclofen 20 MG Oral Tablet one pill three times a day as needed for tight muscles 30 Tablet 0 Nitroglycerin 0.4 MG Sublingual Tablet Sublingual (Nitrostat) 1 every 5 minutes as needed with chest pain up to 3 doses in 15 minutes (Patient not taking: Reported on 09/21/2022) 25 Tablet 1 Albuterol Sulfate HFA 108 (90 Base) MCG/ACT Inhalation Aerosol Solution Inhale by mouth 2 Puffsevery 4 hours as needed for Cough or Shortness of Breath. Reports doesn't help (Patient not taking:Reported on 08/11/2022) 18 g 2 Current Facility-Administered Medications Medication Dose Route Frequency Provider Last Rate Last Admin Albuterol Sulfate (Proventil) (2.5 MG/3ML) 0.083% inhalation solution 2.5 mg 2.5 mg Nebulizer PRN Al Mccrary PA-C Albuterol Sulfate (Proventil) (5 MG/ML) 0.5% *conc* inhalation solution 2.5 mg 2.5 mg NebulizerPRN Al Mccrary PA-C PHYSICAL EXAM: BP 110/64 | Pulse 72 | Resp 16 | Wt 116.9 kg (257 lb 12.8 oz) | BMI 44.25 kg/m | BSA 2.3 m General: Awake, alert and oriented x 3. No acute distress. HENT: Normocephalic, atraumatic. Eyes: PER. Neck: No carotid bruits. No overt JVD. Cardiovascular: Regular, paced. Systolic ejection murmur. No diastolic murmur. Pulmonary: Diminished. Decreased. Clear. Abdomen: Bowel sounds x 4, soft. Extremities: Trace to 1+ pretibial edema more towards the lower end of the estimate. No clubbing. No cyanosis. +2 pedal pulses bilaterally. Skin: Warm and dry. Data: June 24, 2021 TTE Interpretation Summary ([facility], Dr. Rolon): No change compared [...] dysfunction. October 04, 2021 TTE Interpretation Summary ([facility], Dr. Gomes): Study is technically [...] 0.1%. Atrial paced 36.3%. Ventricular paced 99.7%. IMPRESSION: 1. ASCVD. 2. 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 3. Hypertension, controlled. 4. Diastolic congestive heart failure, compensated 5. Dyslipidemia. LDL cholesterol 48 mg/dL in September 2021 ([facility]). 6. Hypertriglyceridemia. Triglycerides 105 mg/dL on 10/14/2021. 7. Right carotid bruit. Carotid duplex at [facility] on October 04, 2021 with no hemodynamically significant stenosis in the bilateral common or internal carotid arteries. 8. Symptomatic anemia, followed by [facility]ematology/[facility]cology 9. Recurrent prostate cancer after previous brachytherapy, with obstructive voiding symptoms 10. COPD, chronic respiratory failure with hypoxia 11. Obstructive sleep apnea, CPAP therapy 12. Type 2 diabetes mellitus 13. Stage 4 chronic kidney disease 14. Gout RECOMMENDATIONS/PLAN: Check LDL cholesterol. Continue current cardiac medications as prescribed. Routine cardiology follow-up in 6 months or as needed. ER with emergencies. Blair Hannah PA-C Department of Cardiology documented in this encounter Nursing Notes * Yaron Hernández LPN - 09/21/2022 12:33 PM EDT Patient identified by full name and date of Chief Complaint Patient presents with Follow Up 6 month follow up. Chest pain intermittent. Work up for recent stroke with CT tomorrow. SOB no worse then prior. Denies palpitations, dizziness and edema. Examination Room: 3 Name: Maurisio Beltran Date of : (1940). Reason for Visit: 6 month follow up Interim Hospitalization(s): Denies Problems/Concerns: See [...] Type Specialty Care Team Description 10/04/[address] [place] [address] 10/07/2022 [facility] [address] [place] [address] 10/11/2022 Office Visit Sleep Disorders Eulalia Milligan DO [address] [place] [address] 10/12/2022 Office Visit Nephrology Quin Narvaez MD [address] [place] [address] [place] [address] 10/25/2022 Office Visit Family Medicine Nicola Prado MD [address] [place] [address] [place] [address] 11/30/2022 Office Visit Urology Denny Armando MD [address] [place] [address] [place] [address] 12/20/2022 Office Visit Dermatology Meron Aragon, PA-C [address] [place] [address] [place] [address] 01/24/2023 Office Visit Rheumatology Ashley Mancilla PA-C 03/04/2023 Office Visit Gastroenterology Marielena Hall CRNP [address] [place] [address] 03/29/2023 Office Visit Cardiology Blair Hannah PA-C [address] [place] [address] 06/02/2023 Nurse Only Ancillary Neeraj, Nurse Annual Wellness [address] [place] [address] [place] [id number] Scheduled Procedures Name Priority Associated Diagnoses Date/Ti [...] this encounter Medical Devices Implanted Type Area Collision Estimator Device Identifier Shelf Expiration Date Model / Serial / Lot Sut Steel 6 [id number] - [id number] Implanted:Qty: 6 on 07/10/[address] [facility] N/A: Chest DO NOT USE 08/14/2012 [id number] / / [id number] documented as of this encounter Results * LDL CHOLESTEROL (DIRECT MEASURE) (09/21/2022 1:06 PM EDT) LDL Cholesterol (Direct Measure) 81 <=129 mg/dL 09/22/2022 12:10 AM EDT LABORATORY GM Comment: LDL Cholesterol Reference Ranges (mg/dL): <70 Target level for high risk ASCVD patient <100 Optimal for general population 100-129 Near optimal for general population 130-159 Borderline high 160-189 High >=190 Very high Blood Venous blood specimen / Unknown Venipuncture / Unknown 09/21/2022 1:06 PM EDT 09/21/2022 1:06 PM EDT Blair Hannah PA-C LAB BLOOD ORDERABLE S LABORATORY [facility] [address] [place] [address] documented in this encounter Visit Diagnoses Diagnosis Atrioventricular block, Mobitz type 1, Wenckebach- Primary Other second degree atrioventricular block Chronic diastolic heart failure (HCC) Chronic diastolic heart failure Dyslipidemia, goal LDL below 70 Other and unspecified hyperlipidemia Atherosclerosis of [place] coronary artery of [place] heart without angina pectoris Coronary artery disease involving [place] coronary artery of [place] heart without angina pectoris documented in this encounter Advance Directives Documents on File Type Date Recorded Patient Ergonomics Consultant Expl anation Power of Case Picker 06/26/2019 POWER OF A TTORNEY Advance [...] the patient have Health Care Power of Case Picker? No Code Status History Code Status [...] patient or by statute hierarchy) Care Teams Industrial Paramedic Relationship Specialty Start Date End Date Nicola Prado MD [address] [place] [address] [place] [address] PCP - General Family Medicine 06/19/21 documented as of this encounter
--- OUTSIDE RECORDS SUMMARY | 2023-02-03 20:34 | External Medical Summary | Summary of Care ---
Author Name Unknown Organization [facility] Address [address] [place] [address] Phone [phone] Care Team Providers Care Nurse Gynecology Name Role Phone Nicola Prado MD Primary Care Provide r Reason for Visit * Reason Onset Date Comments Encounter Created in Error 09/27/2022 Encounter Details Date Type Department Care Team Description 09/27/[address] [phone] Nicola Prado MD [address] [place] [address] [place] [address] Encounter Created in Error Allergies Active Allergy Reactions Severity Noted Date Comments Hydromorphone High 09/20/2021 Other reaction(s): Nausea Other reaction(s): Nausea 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/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 Other reaction(s): AMS Other reaction(s): AMS Prasugrel 04/02/2016 bleeding Prednisone High 09/20/2021 Other reaction(s): INCREASE BLOOD SUGAR Other reaction(s): INCREASE BLOOD SUGAR documented as of this encounter (statuses as of 09/27/2022) Medications Medication Sig Dispensed Refills Start Date [...] 6 06/26/2021 Active Vitamin D3 1.25 MG (83833 UT) Oral Capsule Take 1 Capsule by [...] less than 8.0% ([facility]) Inject 110 Units under the skin [...] not taking.Reported on 09/21/2022 Easy Touch Pen [place] 31G X 8 MM (Insulin Pen Needle)Indications: Type 2 diabetes mellitus with hemoglobin A1c goal of less than 8.0% ([facility]),Type 2 diabetes mellitus with stage 4 chronic kidney disease, unspecified whether detention insulin use ([facility]) Use up [...] Solution Auto-injector (Enbrel Sureclick)Indicatio ns: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[facility]),H/O psoriasis Inject 50 mg under [...] as of this encounter (statuses as of 09/27/2022) Active Problems Problem Noted Date Hypertensive heart [...] urinary tr act symptoms 07/13/2001 Atherosclerosis of [place] ronary artery of [place] heart without angina pectoris Morbid obesity with BMI of 40.0-44.9, ad ult documented as of this encounter (statuses as of 09/27/2022) Resolved Problems Problem Noted Date Resolved Date [...] TIA (transient ischemic attack) 02/04/2016 11/23/2017 Overview: [facility] Anemia of chronic renal failure [...] MANAGEMENT 07/22/2008 0 Overview: Kianna Lyn, RN [phone] Examination following surgery 07/11/2008 Difficult intubation 07/10/2008 02/19/2020 Overview: Patient seen and examined in OR#1.Possible difficult intubation.TM distance about 5 cms.MP 3-4. Will plan FOB electively Due to current situation. EXAMINATION OF PARTICIPANT IN CLINICAL TRIAL-gen omics 07/04/2008 05/30/2009 Overview: Renamed Per Clinical Trials Billing Project. Study Titile: Genomic Markers for Patients with Cardiovascular Disease Project #[id number] PI: Miriam Roque MD Please call [phone] with study related questions Chronic coronary artery [...] at goal 07/04/2008 9 GENOMICS CARDIO RESEARCH OTHER*[id number] 200803/23/2016 Overview: Renamed Per Clinical Trials Billing Project. Study Titile: Genomic Markers for Patients with Cardiovascular Disease Project #[id number] PI: Miriam Roque MD Please call [phone] with study related questions Kidney disease, chronic, [...] as of this encounter (statuses as of 09/27/2022) Immunizations Name Administration Dates Next Due COVID-19 [...] Miscellaneous Notes * Telephone Encounter - KATHE Serrano - 09/27/2022 10:41 AM EDT error documented in this encounter Plan of Treatment Upcoming Encounters Date Type Specialty Care Team Description 10/04/[address] [place] [address] 10/07/2022 [facility]iac [facility] [address] [place] [address] 10/11/2022 Office Visit Sleep Disorders Eulalia Milligan DO [address] [place] [address] 10/12/2022 Office Visit Nephrology Quin Narvaez MD [address] [place] [place] [address] 10/25/2022 Office Visit Family Medicine Nicola Prado MD [address] [place] [address] [place] [address] 11/30/2022 Office Visit Urology Denny Armando MD [address] [place] [address] [place] [address] 12/20/2022 Office Visit Dermatology Meron Aragon PA-C [address] [place] [address] [place] [address] 01/24/2023 Office Visit Rheumatology Ashley Mancilla PA-C 03/04/2023 Office Visit Gastroenterology Marielena Hall CRNP [address] [place] [address] 03/29/2023 Office Visit Cardiology Blair Hannah PA-C [address] [place] [address] 06/02/2023 Nurse Only Ancillary Neeraj, Nurse Annual Wellness [address] [place] [address] [place] [address] Scheduled Procedures Name Priority Associated Diagnoses Date/Ti [...] this encounter Medical Devices Implanted Type Area Bowling Pin Setters Installer Device Identifier Shelf Expiration Date Model / Serial / Lot Lei Agrawal 6 [id number] - [id number] Implanted:Qty: 6 on [place] [facility] [place] Chest DO NOT USE 08/14/2012 [id number] / / [id number] documented as of this encounter Advance Directives Documents on File Type Date Recorded Patient Conference Services Director Expl anation Power of Clip Loading Machine Adjuster 06/26/2019 POWER OF A TTORNEY Advance Directives [...] the patient have Health Care Power of Clip Loading Machine Adjuster? No Code Status History Code Status Date [...] patient or by statute hierarchy) Care Teams Nurse Gynecology Relationship Specialty Start Date End Date Nicola Prado MD [address] [place] [address] [place] [address] PCP - General Family Medicine 06/19/21 documented as of this encounter
--- OUTSIDE RECORDS SUMMARY | 2023-02-03 20:34 | External Medical Summary | Summary of Care ---
Author Name Unknown Organization [facility] Address [address] [place] [address] Phone [phone] Care Team Providers Care Manager Pipeline Name Role Phone Nicola Prado MD Primary Care Provide r Encounter Details Date Type Department Care Team Description 10/01/2022 Specialty Pharmacy [facility], [address] [address] Medication, [place] Specialty Refill, [address] [address] Allergies Active Allergy Reactions Severity Noted Date [...] 6 06/26/2021 Active Vitamin D3 1.25 MG (67745 UT) Oral Capsule Take 1 Capsule by [...] than 8.0% ([facility]) Inject 110 Units under [...] not taking.Reported on 09/21/2022 Easy Touch Pen [place] 31G X 8 MM (Insulin Pen Needle)Indications: Type 2 diabetes mellitus with hemoglobin A1c goal of less than 8.0% ([facility]),Type 2 diabetes mellitus with stage 4 chronic kidney disease, unspecified whether mcfp insulin use ([facility]) Use up to six times daily with insulin. 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 Will plan FOB electively Due to current situation. EXAMINATION OF PARTICIPANT IN CLINICAL TRIAL-gen omics 07/04/2008 05/30/2009 Overview: Renamed Per Clinical Trials Billing Project. Study Titile: Genomic Markers for Patients with Cardiovascular Disease Project #[id number] PI: Miriam Roque MD Please call [phone] with study related questions Chronic coronary artery [...] at goal 07/04/2008 9 GENOMICS CARDIO RESEARCH OTHER*[id number] 200803/23/2016 Overview: Renamed Per Clinical Trials Billing Project. Study Titile: Genomic Markers for Patients with Cardiovascular Disease Project #[id number] PI: Miriam Roque MD Please call [phone] with study related questions Kidney disease, chronic, [...] mRNA, LNP-s, No Pre serve, 2-Dose Series (Aleth) 12/09/2020,05/09/2020,04/11/2020 COVID-19, LNP-s, No Preserve , Juan [...] of this encounter Progress Notes * HARLEY Choi - 10/01/2022 11:06 AM EDT Prescribed medication: Medication: Enbrel/Octreotide Shipment date: 10/04 Delivery method: Specialty Mail Location Medication Delivered too? Prescription Address: . [address] [place] [phone] HARLEY Choi [facility] 10/01/2022,11:06 AM documented in this encounter Plan of Treatment Upcoming Encounters Date Type Specialty Care Team Description 10/06/2022 Office Visit Pharmacy [address] [place] [address] 10/06/2022 Office Visit [address] [place] [address] 10/07/2022 [facility] [address] [place] [address] 10/11/2022 Office Visit Sleep Disorders Eulalia Milligan DO [address] [place] [address] 10/12/2022 Office Visit Nephrology Quin Narvaez MD [address] [place] [address] 10/21/2022 Office Visit Family Medicine Nicola Prado MD [address] [place] [address] [place] [address] 11/30/2022 Office Visit Urology Denny Armando MD [address] [place] [address] [place] [address] 12/20/2022 Office Visit Dermatology Meron Aragon PA-C [address] [place] [address] [place] [address] 01/24/2023 Office Visit Rheumatology Ashley Mancilla PA-C 03/04/2023 Office Visit Gastroenterology Marielena Hall CRNP [address] [place] [address] 03/29/2023 Office Visit Cardiology Blair Hannah PA-C [address] [place] [address] 06/02/2023 Nurse Only Ancillary Neeraj, Nurse Annual [address] [place] [address] Scheduled Procedures Name Priority Associated Diagnoses Date/Ti [...] this encounter Medical Devices Implanted Type Area Mold Repairer Device Identifier Shelf Expiration Date Model / Serial / Lot Sut Steel 6 [id number] - [id number] [place]planted:Q[place] 6 [place] 07[place] [facility] [place]: Chest DO NOT USE 08/14/2012 [id number] / / [id number] documented as of this encounter Advance Directives Documents on File Type Date Recorded Patient Mobile Game Engineer Expl anation Power of Field Nurse Case Manager 06/26/2019 POWER OF A TTORNEY Advance [...] patient have Health Care Power of Field Nurse Case Manager? No Code Status History Code Status [...] patient or by statute hierarchy) Care Teams Manager Pipeline Relationship Specialty Start Date End Date Nicola Prado MD [address] [place] [address] [place] [address] PCP - General Family Medicine 06/19/21 documented as of this encounter
--- OUTSIDE RECORDS SUMMARY | 2023-02-03 20:34 | External Medical Summary | Summary of Care ---
Author Name Unknown Organization [facility] Address [address] [place] [address] Phone [phone] Care Team Providers Care Blackjack Supervisor Name Role Phone Nicola Prado MD Primary Care Provide r Encounter Details Date Type Department Care Team Description 10/01/2022 Specialty Pharmacy [facility], [address] [address] Medication, Mt Specialty Refill, [address] [address] Allergies Active Allergy Reactions Severity Noted Date [...] 6 06/26/2021 Active Vitamin D3 1.25 MG (90691 UT) Oral Capsule Take 1 Capsule by [...] A1c goal of less than 8.0% ([facility]) Inject 110 Units under the [...] not taking.Reported on 09/21/2022 Easy Touch Pen [place] 31G X 8 MM (Insulin Pen Needle)Indications: Type 2 diabetes mellitus with hemoglobin A1c goal of less than 8.0% ([facility]),Type 2 diabetes mellitus with stage 4 chronic kidney disease, unspecified whether custodial insulin use ([facility]) Use up to six times daily with insulin. DXe11.9 600 Each 3 05/22/2022 Active Albuterol Sulfate HFA 108 (90 Base) MCG/ACT Inhalation Aerosol SolutionIndications :COPD exacerbation ([facility]),Chronic cough Inhale by mouth 2 Puffs every 4 hours as needed for Cough or Shortness of Breath. Reports doesn't help 18 g 2 05/27/2022 Active Additional Information Patient not taking.Reported on 08/11/2022 Victoza 18 MG/3ML Subcutaneous Solution Pen-injector (Liraglutide)Indica tions:Type 2 diabetes mellitus with hemoglobin A1c goal of less than 8.0% ([facility]),Type 2 diabetes mellitus with stage 4 chronic kidney disease, with long-term current use of insulin ([facility]) Inject 1.8 mg under the skin daily. 27 mL 3 07/23/2022 Active Furosemide 80 MG Oral Tablet (Lasix) Take 1 Tablet by mouth in the morning. 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[facility]),H/O psoriasis Inject 50 mg under [...] (Zetia)Indications: Dyslipidemia, goal LDL below 70,Atherosclerosis of [place] coronary artery of [place] heart without angina pectoris Take 1 Tablet [...] urinary tr act symptoms 07/13/2001 Atherosclerosis of [place] co ronary artery of [place] heart without angina pectoris Morbid obesity with [...] MANAGEMENT 07/22/2008 0 Overview: Kianna Lyn RN [phone] Examination following surgery 07/11/2008 Difficult intubation 07/10/2008 02/19/2020 Overview: Patient seen and examined in OR#1.Possible difficult intubation.TM distance about 5 cms.MP 3-4. Will plan FOB electively Due to current situation. EXAMINATION OF PARTICIPANT IN CLINICAL TRIAL-gen omics 07/04/2008 05/30/2009 Overview: Renamed Per Clinical Trials Billing Project. Study Titile: Genomic Markers for Patients with Cardiovascular Disease Project #[id number] PI: Miriam Roque MD Please call [phone] with study related questions Chronic coronary artery [...] at goal 07/04/2008 9 GENOMICS CARDIO RESEARCH OTHER*[id number] 200803/23/2016 Overview: Renamed Per Clinical Trials Billing Project. Study Titile: Genomic Markers for Patients with Cardiovascular Disease Project #[id number] PI: Miriam Roque MD Please call [phone] with study related questions Kidney disease, chronic, [...] mRNA, LNP-s, No Pre serve, 2-Dose Series (Tribogenics) 12/09/2020,05/09/2020,04/11/2020 COVID-19, LNP-s, No Preserve , Juan [...] Location Medication Delivered too? Prescription Address: . [address] [place] [phone] HARLEY Choi [facility] 10/01/2022,11:06 AM documented in this encounter Plan of Treatment Upcoming Encounters Date Type Specialty Care Team Description 10/06/2022 Office Visit Pharmacy [address] [place] [address] 10/06/2022 Office Visit [address] [place] [address] 10/07/2022 [facility] [address] [place] [address] 10/11/2022 Office Visit Sleep Disorders Eulalia Milligan DO [address] [place] [address] 10/12/2022 Office Visit Nephrology Quin Narvaez MD [address] [place] [address] 10/21/2022 Office Visit Family Medicine Nicola Prado MD [address] [place] [address] [place] [address] 11/30/2022 Office Visit Urology Denny Armando MD [address] [place] [address] 12/20/2022 Office Visit Dermatology Meron Aragon PA-C [address] [place] [address] [place] [address] 01/24/2023 Office Visit Rheumatology Ashley Mancilla PA-C 03/04/2023 Office Visit Gastroenterology Marielena Hall CRNP [address] [place] [address] 03/29/2023 Office Visit Cardiology Blair Hannah PA-C [address] [place] [address] 06/02/2023 Nurse Only Ancillary Neeraj, Nurse Annual [address] [place] [address] Scheduled Procedures Name Priority Associated Diagnoses Date/Ti [...] this encounter Medical Devices Implanted Type Area Straightener And Aligner Device Identifier Shelf Expiration Date Model / Serial / Lot Sut Steel 6 M654g - [id number] Implanted:Qty: 6 on 07/10/2008 at [place] [facility] [place] N/A: Chest DO NOT USE 08/14/2012 [id number] / / [id number] documented as of this encounter Advance Directives Documents on File Type Date Recorded Patient Ship Fastener Expl anation Power of Dude Ranch Manager 06/26/2019 POWER OF A TTORNEY Advance [...] the patient have Health Care Power of Dude Ranch Manager? No Code Status History Code Status [...] patient or by statute hierarchy) Care Teams Blackjack Supervisor Relationship Specialty Start Date End Date Nicola Prado MD [address] [place] [address] [place] [address] PCP - General Family Medicine 06/19/21 documented as of this encounter
--- OUTSIDE RECORDS SUMMARY | 2023-02-03 20:34 | External Medical Summary | Summary of Care ---
Author Name Unknown Organization [facility] Address [address] [place] [address] Phone [phone] Care Team Providers Care Triage Assistant Name Role Phone Nicola Prado MD Primary Care Provide r Reason for Visit * Reason Comments Outpatient Testing Encounter Details Date Type Department Care Team Description 09/21/2022 Laboratory Laboratory [address] [place] [phone] [place] [phone] Prostate cancer (HCC); Iron deficiency anemia; Dyslipidemia, goal LDL below 70 Allergies Active Allergy Reactions Severity Noted Date Comments Hydromorphone High 09/20/2021 Other reaction(s): Nausea Other reaction(s): Nausea 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/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 Other reaction(s): AMS Other reaction(s): AMS Prasugrel 04/02/2016 bleeding Prednisone High 09/20/2021 Other reaction(s): INCREASE BLOOD SUGAR Other reaction(s): INCREASE BLOOD SUGAR documented as of this encounter (statuses as of 09/21/2022) Medications Medication Sig Dispensed Refills Start Date [...] 6 06/26/2021 Active Vitamin D3 1.25 MG (70259 UT) Oral Capsule Take 1 Capsule by [...] than 8.0% ([facility]) Inject 110 Units under the skin in [...] not taking.Reported on 09/21/2022 Easy Touch Pen [place] 31G X 8 MM (Insulin Pen Needle)Indications: Type 2 diabetes mellitus with hemoglobin A1c goal of less than 8.0% ([facility]),Type 2 diabetes mellitus with stage 4 chronic kidney disease, unspecified whether mcfp insulin use ([facility]) Use up to six times daily with insulin. DXe11.9 600 Each 3 05/22/2022 Active Albuterol Sulfate HFA 108 (90 Base) MCG/ACT Inhalation Aerosol SolutionIndications :COPD exacerbation ([facility]),Chronic cough Inhale by mouth 2 Puffs [...] current use of insulin ([facility]) Inject 1.8 mg under the skin daily. 27 mL 3 07/23/2022 Active Furosemide 80 MG Oral Tablet (Lasix) Take 1 Tablet by mouth in the morning. 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..] MANAGEMENT 07/22/2008 0 Overview: Kianna Lyn, RN [phone] Examination following surgery 07/11/2008 Difficult intubation 07/10/2008 02/19/2020 Overview: Patient seen and examined in OR#1.Possible difficult intubation.TM distance about 5 cms.MP 3-4. Will plan FOB electively Due to current situation. EXAMINATION OF PARTICIPANT IN CLINICAL TRIAL-gen omics 07/04/2008 05/30/2009 Overview: Renamed Per Clinical Trials Billing Project. Study Titile: Genomic Markers for Patients with Cardiovascular Disease Project #[id number] PI: Miriam Roque MD Please call [phone] with study related questions Chronic coronary artery [...] at goal 07/04/2008 9 GENOMICS CARDIO RESEARCH OTHER*[id number] 200803/23/2016 Overview: Renamed Per Clinical Trials Billing Project. Study Titile: Genomic Markers for Patients with Cardiovascular Disease Project #[id number] PI: Miriam Roque MD Please call [phone] with study related questions Kidney disease, chronic, [...] as of this encounter (statuses as of 09/21/2022) Immunizations Name Administration Dates Next Due COVID-19 mRNA, LNP-s, No Pre serve, 2-Dose Series ([employer]) 12/09/2020,05/09/2020,04/11/2020 COVID-19, LNP-s, No Preserve , Juan [...] Encounters Date Type Specialty Care Team Description 09/22/2022 Imaging Radiology 10/04/[address] [place] [address] 10/07/2022 Cardiac Studies [facility]iology [facility] [address] [place] [address] 10/11/2022 Office Visit Sleep Disorders Eulalia Milligan DO [address] [place] [address] 10/12/2022 Office Visit Nephrology Quin Narvaez MD [address] [place], [place] [address] [address] 10/25/2022 Office Visit Family Medicine Nicola Prado MD [address] [place] [address] [place] [address] 11/30/2022 Office Visit Urology Denny Armando MD [address] [place] [address] [place] [address] 12/20/2022 Office Visit Dermatology Meron Aragon, PA-C [address] [place] [address] [place] [address] 01/24/2023 Office Visit Rheumatology Ashley Mancilla PA-C 03/04/2023 Office Visit Gastroenterology Marielena Hall CRNP [address] [place] [address] 03/29/2023 Office Visit Cardiology Blair Hannah PA-C [address] [place] [address] 06/02/2023 Nurse Only Ancillary Neeraj, Nurse Annual Wellness [address] [place] [address] [place] [address] Pending Results Name Type Priority Associated Diagnoses Date /Time PSA Lab Routine Prostate cancer (HCC) 09/21/2022 1:06 PM EDT CBC WITH WBC DIFFERENTIAL Lab Routine Iron deficiency anemia 09/21/2022 1:06 PM EDT LDL CHOLESTEROL (DIRECT MEASURE) Lab Routine Dyslipidemia, goal LDL below 70 09/21/2022 1:06 PM EDT CBC Lab Routine Iron deficiency anemia 09/21/2022 1:06 PM EDT DIFFERENTIAL, AUTOMATED Lab Routine Iron deficiency anemia 09/21/2022 1:06 PM EDT Scheduled Procedures Name Priority Associated [...] this encounter Medical Devices Implanted Type Area Grounds Maintenance Manager Device Identifier Shelf Expiration Date Model / Serial / Lot Sut Steel 6 [id number] - [id number] Implanted:Qty: 6 on 07/10/2008 at [place] [facility] [place] N/A: Chest DO NOT USE 08/14/2012 [id number] / / [id number] documented as of this encounter Visit Diagnoses Diagnosis Prostate cancer (HCC) Malignant neoplasm of prostate Iron deficiency anemia Iron deficiency anemia, unspecified Dyslipidemia, goal LDL below 70 Other and unspecified hyperlipidemia documented in this encounter Advance Directives Documents on File Type Date Recorded Patient Printing Bindery Assistant Expl anation Power of Geek Squad Agent 06/26/2019 POWER OF A TTORNEY Advance [...] the patient have Health Care Power of Geek Squad Agent? No Code Status History Code Status [...] patient or by statute hierarchy) Care Teams Triage Assistant Relationship Specialty Start Date End Date Nicola Prado MD [address] [place] [address] [place] [address] PCP - General Family Medicine 06/19/21 documented as of this encounter
--- OUTSIDE RECORDS SUMMARY | 2023-02-03 20:35 | External Medical Summary | Summary of Care ---
Author Name Unknown Organization [facility] Address [address] [place] [address] Phone [phone] Care Team Providers Care General Warehouse Associate Name Role Phone Nicola Prado MD Primary Care Provide r Reason for Visit * Reason Onset Date Comments Test Results 09/13/2022 Encounter Details Date Type Department Care Team Description 09/13/2022 Telephone Family [address] [phone] Nicola Prado MD [address] [place] [address] [place] [address] Test Results Allergies Active Allergy Reactions Severity Noted Date Comments Hydromorphone High 09/20/2021 Other reaction(s): Nausea Other reaction(s): Nausea 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/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 Other reaction(s): AMS Other reaction(s): AMS Prasugrel 04/02/2016 bleeding Prednisone High 09/20/2021 Other reaction(s): INCREASE BLOOD SUGAR Other reaction(s): INCREASE BLOOD SUGAR documented as of this encounter (statuses as of 09/17/2022) Medications Medication Sig Dispensed Refills Start Date [...] 6 06/26/2021 Active Vitamin D3 1.25 MG (50539 UT) Oral Capsule Take 1 Capsule by [...] Tablet 1 05/05/2022 Active Easy Touch Pen [place] 31G X 8 MM (Insulin Pen Needle)Indications: Type 2 diabetes mellitus with hemoglobin A1c goal of less than 8.0% ([facility]),Type 2 diabetes mellitus with stage 4 chronic kidney disease, unspecified whether senior care insulin use ([facility]) Use up [...] as of this encounter (statuses as of 09/17/2022) Active Problems Problem Noted Date Hypertensive heart [...] urinary tr act symptoms 07/13/2001 Atherosclerosis of [place] co ronary artery of [place] heart without angina pectoris Morbid obesity with BMI of 40.0-44.9, ad ult documented as of this encounter (statuses as of 09/17/2022) Resolved Problems Problem Noted Date Resolved Date [...] MANAGEMENT 07/22/2008 0 Overview: Kianna Lyn, RN [phone] Examination following surgery 07/11/2008 Difficult intubation 07/10/2008 02/19/2020 Overview: Patient seen and examined in OR#1.Possible difficult intubation.TM distance about 5 cms.MP 3-4. Will plan FOB electively Due to current situation. EXAMINATION OF PARTICIPANT IN CLINICAL TRIAL-gen omics 07/04/2008 05/30/2009 Overview: Renamed Per Clinical Trials Billing Project. Study Titile: Genomic Markers for Patients with Cardiovascular Disease Project #[id number] PI: Miriam Roque MD Please call [phone] with study related questions Chronic coronary artery [...] at goal 07/04/2008 9 GENOMICS CARDIO RESEARCH OTHER*[id number] 200803/23/2016 Overview: Renamed Per Clinical Trials Billing Project. Study Titile: Genomic Markers for Patients with Cardiovascular Disease Project #[id number] PI: Miriam Roque MD Please call [phone] with study related questions Kidney disease, chronic, [...] as of this encounter (statuses as of 09/17/2022) Immunizations Name Administration Dates Next Due COVID-19 [...] Telephone Encounter - Socorro Suero LPN - 09/17/2022 5:06 PM EDT Provider to address: Covering PCP Reason for Call: Test Results Contact: Telephone Call Contact Type: test results Outcome: phone call Pt aware and no further questions Total Time including non face to face (minutes): 5 * Telephone Encounter - Levy Stout MD - 09/16/2022 4:20 PM EDT BUN 26, creatinine 2.5 These are pretty similar to the labs he has had over the past 3-4 months * Telephone Encounter - Socorro Suero LPN - 09/16/2022 4:00 PM EDT Provider to address: pedro Drew PA-C Reason for Call: Test Results Contact: Telephone Call Contact Type: Test Results Outcome: Sent TO ordering PA Wants to know about BUN/Creatinine levels Total Time including non face to face (minutes): 5 * Telephone Encounter - KATHE Sanchez - 09/14/2022 3:06 PM EDT Pt calling to get the results of the BUN/Creat done on 09-09-2022. Pt has been made aware of the results being sent to CT dept but he is still needing to speak with his provider about what the results are. Please call back. Patient calling in to check on the status of previous message. Patient Called within 48 hour timeframe. Reminded patient of 48 hour turn-around time. * Telephone Encounter - Pedro Drew PA-C - 09/14/2022 10:11 AM EDT Usually, CT lets us know if the BUN/creat is ok for CT scan. In the meantime, if he has another episode, he needs to go to ER. * Telephone Encounter - Lisha Parrish RN - 09/13/2022 4:[address] is scheduled for 09-22-22, Are these levels ok for the CT? (Also per other encounter, I sent these labs to [facility]) * Telephone Encounter - Pedro Drew PA-C - 09/13/2022 4:00 PM EDT The BUN/creat was just ordered pre CT scan. Has he had the CT scan yet? * Telephone Encounter - Eda Mcintosh LPN - 09/13/2022 3:35 PM EDT Pedro ordered the BUN/Creatinine CBC was ordered by Hematology/Oncology outside of [facility] Please advise Provider to address: Pedro Reason for Call: Test Results Contact: Telephone Call Contact Type: Test Results Outcome: see above Total Time including non face to face (minutes): 10 * Telephone Encounter - KATHE Ross - 09/13/2022 3:26 PM EDT Patient calling in to check on the status of previous message. Patient Called within 48 hour timeframe. Reminded patient of 48 hour turn-around time. Pt states that the doctor told him that he would be notified of the test results the next day afterlabwork was completed. Pt is quite indignant that he has not yet been contacted and does not seem to understand when the 24- 48 hr turnaround time frame is explained to him due to message given by provider. Please call to advise. * Telephone Encounter - Niya Alvarez LPN - 09/13/2022 12:33 PM EDT Please send to correct pool. * Telephone Encounter - KATHE Maza - 09/13/2022 12:30 PM EDT Who is Requesting Test Results: Patient Primary Care Provider : Nicola Prado MD Tests Results Requested : Blood Labs Date of Test : 09/09/22 Location of Test: Ordering Provider: Pedro Drew PA-C Callback Number: [phone] Patient has been made aware that the turnaround time for test results are typically as follows: Laboratory results = within 2 days Urine Cultures = within 2-3 days depending on growth within the culture Pathology results (biopsy results/PAP) = 1-2 weeks Radiology results = within 1 week Cologuard results = within 2 weeks from the shipment date COVID testing = results are on average 7 days documented in this encounter Plan of Treatment Upcoming Encounters Date Type Specialty Care Team Description 09/21/2022 Office Visit Cardiology Blair Hannah PA-C [address] [place] [address] 09/22/2022 Imaging Radiology 10/04/[address] [place] [address] 10/07/2022 Cardiac Studies Cardiology [facility] [address] [place] [address] 10/11/2022 Office Visit Sleep Disorders Eulalia Milligan DO [address] [place] [address] 10/12/2022 Office Visit Nephrology Quin Narvaez MD [address] [facility] [address] 10/25/2022 Office Visit Family Medicine Nicola Prado MD [address] [place] [address] [place] [address] 11/30/2022 Office Visit Urology Denny Armando MD [address] [facility] [address] [place] [address] 12/20/2022 Office Visit Dermatology Meron Aragon PA-C [address] [place] [address] [place] [address] 01/24/2023 Office Visit Rheumatology Ashley Mancilla PA-C 03/04/2023 Office Visit Gastroenterology Marielena Hall CRNP [address] [place] [address] 06/02/2023 Nurse Only Ancillary Nurse Neeraj Annual [address] [place] [address] Scheduled Procedures Name Priority Associated Diagnoses Date/Ti [...] this encounter Medical Devices Implanted Type Area Sustainability Engineer Device Identifier Shelf Expiration Date Model / Serial / Lot Sut Nghia 6 [id number] - [id number] Implanted:Qty: 6 on 07/10/2008 at [place] [facility] N/A: Chest DO NOT USE 08/14/2012 [id number] / / [id number] documented as of this encounter Advance Directives Documents on File Type Date Recorded Patient Radiocommunications Technician Expl anation Power of Cultural Centre Manager 06/26/2019 POWER OF A TTORNEY Advance [...] the patient have Health Care Power of Cultural Centre Manager? No Code Status History Code Status [...] patient or by statute hierarchy) Care Teams General Warehouse Associate Relationship Specialty Start Date End Date Nicola Prado MD [address] [place] [address] [place] [address] PCP - General Family Medicine 06/19/21 documented as of this encounter
--- OUTSIDE RECORDS SUMMARY | 2023-02-03 20:35 | External Medical Summary | Summary of Care ---
Author Name Unknown Organization [facility] Address [address] [place] [address] Phone [phone] Care Team Providers Care Resource Specialist Teacher Name Role Phone Nicola Prado MD Primary Care Provide r Reason for Referral * Precert (Within 10 days (routine)) - Pending Review Specialty Diagnoses / Procedures Referred By Solueymane t Referred To Contact Radiology Diagnoses Acute nonintractable headache, unspecified headache type Procedures CT HEAD/BRAIN W WO CONTRAST Eleonora Drew PA-C [address] [place] [address] [place] [address] Referral ID Status Reason Start Date Expiration Date V isits Requested Visits Authorized [id number] Pending Review 09/09/2022 999 999 Reason for Visit * Reason Comments Acute Encounter Details Date Type Department Care Team Description 09/09/2022 Office Visit Family Medicine [address] [place] [phone] Eleonora Drew PA-C [address] [place] [address] [place] [address] Acute nonintractable headache, unspecified headache type* Allergies Active Allergy Reactions Severity Noted Date Comments Hydromorphone High 09/20/2021 Other reaction(s): Nausea Other reaction(s): Nausea 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/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 Other reaction(s): AMS Other reaction(s): AMS Prasugrel 04/02/2016 bleeding Prednisone High 09/20/2021 Other reaction(s): INCREASE BLOOD SUGAR Other reaction(s): INCREASE BLOOD SUGAR documented as of this encounter (statuses as of 09/09/2022) Medications Medication Sig Dispensed Refills Start Date [...] prior episode ([facility]) Take 1 tablet by mouth daily in [...] 6 06/26/2021 Active Vitamin D3 1.25 MG (27111 UT) Oral Capsule Take 1 Capsule by mouth in the morning. 0 Active CPAP every night at bedtime . 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 DXe11.9 600 Each 3 05/22/2022 Active Albuterol Sulfate HFA 108 (90 Base) MCG/ACT Inhalation Aerosol SolutionIndications :COPD exacerbation ([facility]),Chronic [...] as of this encounter (statuses as of 09/09/2022) Active Problems Problem Noted Date Hypertensive heart [...] urinary tr act symptoms 07/13/2001 Atherosclerosis of [place] co ronary artery of [place] heart without angina pectoris Morbid obesity with BMI of 40.0-44.9, ad ult documented as of this encounter (statuses as of 09/09/2022) Resolved Problems Problem Noted Date Resolved Date [...] use aero chamber. Test performed by Dori NET MVC DEVELOPER CPFT Body mass index (BMI) of 45.0 [...] 07/22/2008 0 Overview: Kianna Lyn RN [phone] Examination following surgery 07/11/2008 Difficult intubation 07/10/2008 02/19/2020 Overview: Patient seen and examined in OR#1.Possible difficult intubation.TM distance about 5 cms.MP 3-4. Will plan FOB electively Due to current situation. EXAMINATION OF PARTICIPANT IN CLINICAL TRIAL-gen omics 07/04/2008 05/30/2009 Overview: Renamed Per Clinical Trials Billing Project. Study Titile: Genomic Markers for Patients with Cardiovascular Disease Project #[id number] PI: Miriam Roque MD Please call [phone] with study related questions Chronic coronary artery [...] DM type 2, not at goal 07/04/2008 07 9 GENOMICS CARDIO RESEARCH OTHER*[id number] 200803/23/2016 Overview: Renamed Per Clinical Trials Billing Project. Study Titile: Genomic Markers for Patients with Cardiovascular Disease Project #[id number] PI: Miriam Roque MD Please call [phone] with study related questions Kidney disease, chronic, [...] as of this encounter (statuses as of 09/09/2022) Immunizations Name Administration Dates Next Due COVID-19 [...] file Not on file Not on file Travel History Travel Start Travel End [facility] 07/29/2022 08/13/2022 documented as of this encounter Last Filed Vital Signs Vital Sign Reading Time Taken Comments Blood Pressure 120/50 09/09/2022 9:17 AM EDT Pulse 88 09/09/2022 9:17 AM EDT Temperature 36.4 C (97.6 F) 09/09/2022 9:17 AM ED T Respiratory Rate - - Oxygen Saturation 95% 09/09/2022 9:17 AM EDT Inhaled Oxygen Concentration - - Weight 114.9 kg (253 lb 3.2 oz) 09/09/2022 9:17 AM EDT Height - - Body Mass Index 43.46 07/21/2022 5:13 PM EDT documented in this encounter Progress Notes * Eleonora Drew PA-C - 09/09/2022 9:22 AM EDT Nursing Notes: Socorro Suero LPN 09/09/22 0920 Signed Chief Complaint Patient presents with Acute Head ache and decrease appetite Duration- 2 days Denies any other issues such as nausea, vomiting, or Diarrhea , body aches Tx: OTC medication The patient has been properly identified by confirmation of name and date of . Pt here today with severe headache that started about 2 days ago. He felt really bad yesterday. He wasn't able to eat anything yesterday. He slept good last night and feels better today. The headacheis gone. Pt also had difficulty speaking yesterday. Pt denies facial drooping, numbness/tingling into extrem, unilateral weakness, fatigue, generalized weakness, GI/ sx, dizziness, lightheadedness,syncope, URI sx, allergy/sinus sx, swelling in legs, nausea, vomiting, diarrhea, chest pain, SOB. Pt states that he was ready to go to the ER yesterday, but didn't. He feels good today. Review of patient's allergies indicates: Allergen Reactions [...] 30 Tablet 6 Vitamin D3 1.25 MG (92742 UT) Oral Capsule Take 1 Capsule by mouth in the morning. CPAP every night at bedtime . 2 Liters Baclofen 20 MG Oral Tablet one pill three times a day as needed for tight muscles 30 Tablet 0 Diclofenac Sodium 1 % External Gel [...] 1 Capsule before bedtime. 60 Capsule 5 Nitroglycerin 0.4 MG Sublingual Tablet Sublingual (Nitrostat) 1 every 5 minutes as needed with chest pain up to 3 doses in 15 minutes 25 Tablet 1 Easy Touch Pen [place] 31G X 8 MM (Insulin Pen Needle) [...] daily to inject octreotide 180 Each 1 Albuterol Sulfate HFA 108 (90 Base) [...] mg 2.5 mg NebulizerPRN Al Mccrary PA-C Past Medical History: Diagnosis Date (HFpEF) heart failure with preserved ejection fraction (HCC) Acute blood loss anemia 10/29/2020 [facility] transfused Acute exacerbation of chronic obstructive pulmonary disease (COPD) (HCC) 05/11/2018 [facility] Altered mental [...] moderate (HCC) 10/04/2014 PFT Coronary atherosclerosis of [place] coronary artery 07/04/2008 Admitted [facility] COVID-19 02/24/2021 Dermatophytosis of scalp or bello [...] [facility] Tubular adenoma 10/31/2020 Social History Socioeconomic History Marital status: Spouse name: Cathryn Number of children: 2 Years of education: Not on file Highest education level: Not on file Occupational History 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 Passed 11/2021 from dementia Social [...] Housing Stability: Not on file O:Blood pressure 120/50, pulse 88, temperature 36.4 C (97.6 F), temperature source Tympanic, weight 114.9 kg (253 lb 3.2 oz), SpO2 95 %. GENERAL: alert, healthy and no distress NECK: supple, no adenopathy, no bruits, thyroid normal size, non-tender, without nodularity EYES: PERRLA, conjunctiva are pink and non-injected, sclera clear EARS: External ears normal, Canals clear, TM's Normal OROPHARYNX: no exudate, no erythema, lips, buccal mucosa, and tongue normal and mucous membranes are moist HEART: regular rate & rhythm, no murmur and no gallops LUNGS: chest symmetric with normal AP diameter, no chest deformities noted, no chest wall tenderness, lungs clear to auscultation NEURO: alert & oriented x 3 with fluent speech, no focal motor/sensory deficits, gait normal, reflexes normal and symmetric A:Acute nonintractable headache, unspecified headache type (Primary) - CT HEAD/BRAIN W WO CONTRAST Will get CT of head. If he has another episode, like this, he needs to go to ER. Pt aware and receptive to advice. Any questions/problems, please call. If anything changes, worsens, develops new sx, please call NERY. Follow Up: Return if symptoms worsen or fail to improve. Eleonora Drew PA-C documented in this encounter Nursing Notes * Socorro Suero LPN - 09/09/2022 9:16 AM EDT Chief Complaint Patient presents with Acute Head ache and decrease appetite Duration- 2 days Denies any other issues such as nausea, vomiting, or Diarrhea , body aches Tx: OTC medication The patient has been properly identified by confirmation of name and date of . documented in this encounter Miscellaneous Notes * Addendum Note - Eleonora Drew PA-C - 09/09/2022 9:37 AM EDTAddended by: ELEONORA DREW on: 09/09/2022 09:37 AM Modules accepted: Orders documented in this encounter Plan of Treatment Upcoming Encounters Date Type Specialty Care Team Description 09/21/2022 Office Visit Cardiology Blair Hannah PA-C [address] [place] [address] 09/22/2022 Imaging Radiology 10/04/[address] [place] [address] 10/07/2022 Cardiac Studies Cardiology Neeraj [facility] [address] [place] [address] 10/11/2022 Office Visit Sleep Disorders Eulalia Milligan DO [address] [place] [address] 10/12/2022 Office Visit Nephrology Quin Narvaez MD [address] [place] [address] 10/25/2022 Office Visit Family Medicine Nicola Prado MD [address] [place] [address] [place] [address] 11/30/2022 Office Visit Urology Denny Armando MD [address] [place] [address] [place] [address] 12/20/2022 Office Visit Dermatology Meron Aragon PA-C [address] [place] [address] [place] [address] 01/24/2023 Office Visit Rheumatology Ashley Mancilla PA-C 03/04/2023 Office Visit Gastroenterology Marielena Hall CRNP [address] [place] [address] 06/02/2023 Nurse Only Ancillary Neeraj Nurse [facility] [address] [place] [address] [place] [address] Scheduled Orders Name Type Priority Associated Diagnoses Orde r Schedule CT HEAD/BRAIN W WO CONTRAST Medical Imaging Routine Acute nonintractable headache, unspecified headache type Ordered: 09/09/2022 BUN Lab Routine Acute nonintractable headache, unspecified headache type Expected: 09/09/2022 (Approximate), Expires: 09/09/2023 CREATININE Lab Routine Acute nonintractable headache, unspecified headache type Expected: 09/09/2022 (Approximate), Expires: 09/09/2023 Scheduled Procedures Name Priority Associated Diagnoses Date/Ti [...] PAST YEAR FOR COPD 10/23/2022 10/23/2021 GFR 02/10/2023 08/11/2022, 07/15, 07/22/2022, Additional history exists Albumin/Creatinine Ratio 04/23/20232 023, 03/24/2022, 06/19/2021, Additional history exists DIABETES-FOOT [...] this encounter Medical Devices Implanted Type Area Architectural Wood Model Maker Device Identifier Shelf Expiration Date Model / Serial / Lot Sut Steel 6 [id number] - [id number] Implanted:Qty: 6 on 07/10/2008 at OR [facility] N/A: Chest DO NOT USE 08/14/2012 [id number] / / [id number] documented as of this encounter Visit Diagnoses Diagnosis Acute nonintractable headache, unspecified headache type- Primary documented in this encounter Advance Directives Documents on File Type Date Recorded Patient Internal Security Manager Expl anation Power of Wine Master 06/26/2019 POWER OF A TTORNEY Advance [...] the patient have Health Care Power of Wine Master? No Code Status History Code Status [...] patient or by statute hierarchy) Care Teams Resource Specialist Teacher Relationship Specialty Start Date End Date Nicola Prado MD [address] [place] [address] [place] [address] PCP - General Family Medicine 06/19/21 documented as of this encounter
--- OUTSIDE RECORDS SUMMARY | 2023-02-03 20:35 | External Medical Summary ---
Author Name Unknown Address Unknown Organization K01:[facility] [address] [place] [address] Laboratory Report Ordering Provider Test Date Status NATALIIA KEBEDE 09/21/2022 13:06:56 Final Observation Date Value Abnormality Reference (Units ) Status PSA 09/21/2022 13:06:56 1.17 <4.10 (ng/ mL) Final Performing Location [facility] [address] [place] [address]
--- OUTSIDE RECORDS SUMMARY | 2023-02-03 20:35 | External Medical Summary | Summary of Care ---
Author Name Unknown Organization [facility] Address [address] [place] [address] Phone [phone] Care Team Providers Care Senior Behavioral Scientist Name Role Phone Nicola Prado MD Primary Care Provide r Reason for Visit * Reason Comments Outpatient Testing Encounter Details Date Type Department Care Team Description 09/09/2022 Laboratory Laboratory [address] [place] [address] [place] [id number] Iron deficiency anemia; Acute nonintractable headache, unspecified headache type Allergies Active Allergy Reactions Severity Noted [...] 6 06/26/2021 Active Vitamin D3 1.25 MG (88099 UT) Oral Capsule Take 1 Capsule by [...] Tablet 1 05/05/2022 Active Easy Touch Pen [place] 31G X 8 MM (Insulin Pen Needle)Indications: Type 2 diabetes mellitus with hemoglobin A1c goal of less than 8.0% ([facility]),Type 2 diabetes mellitus with stage 4 chronic kidney disease, unspecified whether prison insulin use ([facility]) Use up to six times daily with insulin. 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 Will plan FOB electively Due to current situation. EXAMINATION OF PARTICIPANT IN CLINICAL TRIAL-gen omics 07/04/2008 05/30/2009 Overview: Renamed Per Clinical Trials Billing Project. Study Titile: Genomic Markers for Patients with Cardiovascular Disease Project #[id number] PI: Miriam Roque MD Please call [phone] with study related questions Chronic coronary artery [...] at goal 07/04/2008 9 GENOMICS CARDIO RESEARCH OTHER*[id number] 200803/23/2016 Overview: Renamed Per Clinical Trials Billing Project. Study Titile: Genomic Markers for Patients with Cardiovascular Disease Project #[id number] PI: Miriam Roque MD Please call [phone] with study related questions Kidney disease, chronic, [...] file Travel History Travel Start Travel End [facility] 07/29/2022 08/13/2022 documented as of this encounter Plan of Treatment Upcoming Encounters Date Type Specialty Care Team Description 09/21/2022 Office Visit Cardiology Blair Hannah PA-C [address] [place] [address] 09/22/2022 Imaging Radiology 10/04/[address] [place] [address] 10/07/2022 Cardiac Studies Cardiology Keith Pickard [facility] [address] [place] [address] 10/11/2022 Office Visit Sleep Disorders Eulalia Milligan DO [address] [place] [address] 10/12/2022 Office Visit Nephrology Quin Narvaez MD [address] [facility] [place] [address] 10/25/2022 Office Visit Family Medicine Nicola Prado MD [address] [place] [address] [place] [address] 11/30/2022 Office Visit Urology Denny Armando MD [address] [address] [place] [address] 12/20/2022 Office Visit Dermatology Meron Aragon PA-C [address] [place] [address] [place] [address] 01/24/2023 Office Visit Rheumatology Ashley Mancilla PA-C 03/04/2023 Office Visit Gastroenterology Marielena Hall, [place] [address] [place] [address] 06/02/2023 Nurse Only Ancillary Neeraj, Nurse Annual Wellness [address] [place] [address] [place] [address] Pending Results Name Type Priority Associated Diagnoses Date /Time CBC WITH WBC DIFFERENTIAL Lab Routine Iron deficiency anemia 09/09/2022 9:42 AM EDT BUN Lab Routine Acute nonintractable headache, unspecified headache type 09/09/2022 9:42 AM EDT CREATININE Lab Routine Acute nonintractable headache, unspecified headache type 09/09/2022 9:42 AM EDT CBC Lab Routine Iron deficiency anemia 09/09/2022 9:42 AM EDT DIFFERENTIAL, AUTOMATED Lab Routine Iron deficiency anemia 09/09/2022 9:42 AM EDT Scheduled Procedures Name Priority Associated [...] 07/15, 07/22/2022, Additional history exists Albumin/Creatinine Ratio 04/23/2023 023, [...] this encounter Medical Devices Implanted Type Area Compressed Gas Plant Worker Device Identifier Shelf Expiration Date Model / Serial / Lot Sut Nghia 6 [id number] - [id number] Implanted:Qty: 6 on 07/10/2008 at [place] [facility] N/A: Chest DO NOT USE 08/14/2012 [id number] / / [id number] documented as of this encounter Visit Diagnoses Diagnosis Iron deficiency anemia Iron deficiency anemia, unspecified Acute nonintractable headache, unspecified headache type documented in this encounter Advance Directives Documents on File Type Date Recorded Patient Care Coordination Manager Expl anation Power of Putter In 06/26/2019 POWER OF A TTORNEY Advance Directives [...] the patient have Health Care Power of Putter In? No Code Status History Code Status Date [...] or by statute hierarchy) Care Teams Senior Behavioral Scientist Relationship Specialty Start Date End Date Nicola Prado MD [address] [place] [address] [place] [phone] PCP - General Family Medicine 06/19/21 documented as of this encounter
--- OUTSIDE RECORDS SUMMARY | 2023-02-03 20:35 | External Medical Summary ---
Author Name Unknown Address Unknown Organization K01:LABORATORY [facility] [place] - [address] [place] [address] [place] [address] Laboratory Report Ordering Provider Test Date Status MIKY PARISH 09/21/2022 13:06:56 Final Observation Date Value Abnormality Reference (Units ) Status WBC, Total 09/21/2022 13:06:56 9.67 4.00-10.80 (K/uL) Final RBC 09/21/2022 13:06:56 3.86 4.50-5.25 (M/uL) Final Hemoglobin 09/21/2022 13:06:56 11.7 Below low normal 14.0-16.8 (g/dL) Final HCT 09/21/2022 13:06:56 38.2 Below low normal 40.0-48.4 (%) Final MCV 09/21/2022 13:06:56 99.0 82.0-99.5 (fL) Final MCH 09/21/2022 13:06:56 30.3 27.0-34.0 (pg) Final MCHC 09/21/2022 13:06:56 30.6 32.0-36.0 (g/dL) Final RDW 09/21/2022 13:06:56 14.9 11.5-15.5 (%) Final Platelets 09/21/2022 13:06:56 197 140-400 (K/uL) Final MPV 09/21/2022 13:06:56 10.6 6.6-11.1 (fL) Final Nucleated erythrocytes/100 leukocytes [Ratio] in Blood by Automated count 09/21/2022 13:06:56 0 <=0 (/100 WBCs) Final Performing Location LABORATORY [facility] [place] - [address] [place] [address]
--- OUTSIDE RECORDS SUMMARY | 2023-02-03 20:35 | External Medical Summary ---
Author Name Unknown Address Unknown Organization K01:LABORATORY [facility] [place] - [address] [place] [address] Laboratory Report Ordering Provider Test Date Status MARYSOL CRABTREE 09/21/2022 13:06:56 Final Observation Date Value Abnormality Reference (Units ) Status LDL, (direct) 09/21/2022 13:06:56 81 <=129 (mg/dL) Final LDL Cholesterol Reference Ra nges (mg/dL):
<70 Target level for high risk ASCVD patient
<100 Optimal for general population
100-129 Near optimal for general population
130-159 Borderline high
160-189 High
>=190 Very high Performing Location LABORATORY [facility] - [address] [place] [address]
--- OUTSIDE RECORDS SUMMARY | 2023-02-03 20:35 | External Medical Summary | Summary of Care ---
Author Name Unknown Organization [facility] Address [address] [place] [address] Phone [phone] Care Team Providers Care Immigration Inspector Name Role Phone Nicola Prado MD Primary Care Provide r Reason for Visit * Reason Comments Outpatient Testing Encounter Details Date Type Department Care Team Description 09/09/2022 Laboratory Laboratory [address] [place] [phone] [place] [phone] Iron deficiency anemia; Acute nonintractable headache, unspecified [...] 6 06/26/2021 Active Vitamin D3 1.25 MG (04532 UT) Oral Capsule Take 1 Capsule by [...] hemoglobin A1c goal of less than 8.0% ([facility]) Inject 110 Units under the skin [...] Tablet 1 05/05/2022 Active Easy Touch Pen [place] 31G X 8 MM (Insulin Pen Needle)Indications: Type 2 diabetes mellitus with hemoglobin A1c goal of less than 8.0% ([facility]),Type 2 diabetes mellitus with stage 4 chronic kidney disease, unspecified whether skilled nursing insulin use ([facility]) Use up to six times daily with insulin. DXe11.9 600 Each 3 05/22/2022 Active Albuterol Sulfate HFA 108 (90 Base) MCG/ACT Inhalation Aerosol SolutionIndications :COPD exacerbation ([facility]),Chronic cough Inhale by mouth 2 Puffs every 4 hours as needed for Cough or Shortness of Breath. Reports doesn't help 18 g 2 05/27/2022 Active Additional Information Patient not taking.Reported on 08/11/2022 Victoza 18 MG/3ML Subcutaneous Solution Pen-injector (Liraglutide)Indica tions:Type 2 diabetes mellitus with hemoglobin A1c goal of less than 8.0% ([facility]),Type 2 diabetes mellitus with stage 4 chronic kidney disease, with long-term current use of insulin ([facility]) Inject 1.8 mg under the skin daily. 27 mL 3 07/23/2022 Active Furosemide 80 MG Oral Tablet (Lasix) Take 1 Tablet by mouth in the morning. 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),H/O psoriasis Inject 50 mg under the [...] urinary tr act symptoms 07/13/2001 Atherosclerosis of [place] co ronary artery of [place] heart without angina pectoris Morbid obesity with [...] MANAGEMENT 07/22/2008 0 Overview: Kianna Lyn RN [phone] Examination following surgery 07/11/2008 Difficult intubation 07/10/2008 02/19/2020 Overview: Patient seen and examined in OR#1.Possible difficult intubation.TM distance about 5 cms.MP 3-4. Will plan FOB electively Due to current situation. EXAMINATION OF PARTICIPANT IN CLINICAL TRIAL-gen omics 07/04/2008 05/30/2009 Overview: Renamed Per Clinical Trials Billing Project. Study Titile: Genomic Markers for Patients with Cardiovascular Disease Project #[id number] PI: Miriam Roque MD Please call [phone] with study related questions Chronic coronary artery [...] at goal 07/04/2008 9 GENOMICS CARDIO RESEARCH OTHER*[id number] 200803/23/2016 Overview: Renamed Per Clinical Trials Billing Project. Study Titile: Genomic Markers for Patients with Cardiovascular Disease Project #[id number] PI: Miriam Roque MD Please call [phone] with study related questions Kidney disease, chronic, [...] file Travel History Travel Start Travel End [facility] 07/29/2022 08/13/2022 documented as of this encounter Plan of Treatment Upcoming Encounters Date Type Specialty Care Team Description 09/21/2022 Office Visit Cardiology Blair Hannah PA-C [address] [place] [address] 09/22/2022 Imaging Radiology 10/04/[address] [place] [address] 10/07/2022 Cardiac Studies Cardiology Keith Pickard [facility] [address] [place] [address] 10/11/2022 Office Visit Sleep Disorders Eulalia Milligan DO [address] [place] [address] 10/12/2022 Office Visit Nephrology Quin Narvaez MD [address] [facility] [place] [place] [address] 10/25/2022 Office Visit Family Medicine Nicola Prado MD [address] [place] [address] [place] [address] 11/30/2022 Office Visit Urology Denny Armando MD [address] [address] [place] [address] 12/20/2022 Office Visit Dermatology Meron Aragon PA-C [address] [place] [address] [place] [address] 01/24/2023 Office Visit Rheumatology Ashley Mancilla PA-C 03/04/2023 Office Visit Gastroenterology Marielena Hall, [place] [address] [place] [address] 06/02/2023 Nurse Only Ancillary Neeraj, Nurse Annual Wellness [address] [place] [address] [place] [address] Pending Results Name Type Priority Associated Diagnoses [...] this encounter Medical Devices Implanted Type Area City Council Member Device Identifier Shelf Expiration Date Model / Serial / Lot Sut Nghia 6 [id number] - [id number] Implanted:Qty: 6 on 07/10/2008 at OR [facility] [place] N/A: Chest DO NOT USE 08/14/2012 [id number] / / [id number] documented as of this encounter Visit Diagnoses Diagnosis Iron deficiency anemia Iron deficiency anemia, unspecified Acute nonintractable headache, unspecified headache type documented in this encounter Advance Directives Documents on File Type Date Recorded Patient Chummer Expl anation Power of Drill Rig Operator Helper 06/26/2019 POWER OF A TTORNEY [...] patient have Health Care Power of Drill Rig Operator Helper? No Code Status History Code [...] patient or by statute hierarchy) Care Teams Immigration Inspector Relationship Specialty Start Date End Date Nicola Prado MD [address] [place] [address] [place] [phone] PCP - General Family Medicine 06/19/21 documented as of this encounter
--- OUTSIDE RECORDS SUMMARY | 2023-02-03 20:35 | External Medical Summary | Summary of Care ---
Author Name Unknown Organization [facility] Address [address] [place] [address] Phone [phone] Care Team Providers Care Packaging Clerk Name Role Phone Nicola Prado MD Primary Care Provide r Reason for Visit * Reason Onset Date Comments Fax 09/10/2022 Encounter Details Date Type Department Care Team Description 09/10/2022 Telephone Family [address] [address] Nicola Prado MD [address] [place] [address] [place] [address] Fax Allergies Active Allergy Reactions Severity Noted Date Comments Hydromorphone High 09/20/2021 Other reaction(s): Nausea Other reaction(s): Nausea 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/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 Other reaction(s): AMS Other reaction(s): AMS Prasugrel 04/02/2016 bleeding Prednisone High 09/20/2021 Other reaction(s): INCREASE BLOOD SUGAR Other reaction(s): INCREASE BLOOD SUGAR documented as of this encounter (statuses as of 09/13/2022) Medications Medication Sig Dispensed Refills Start Date [...] 6 06/26/2021 Active Vitamin D3 1.25 MG (95989 UT) Oral Capsule Take 1 Capsule by [...] Tablet 1 05/05/2022 Active Easy Touch Pen [place] 31G X 8 MM (Insulin Pen Needle)Indications: Type 2 diabetes mellitus with hemoglobin A1c goal of less than 8.0% ([facility]),Type 2 diabetes mellitus with stage 4 chronic kidney disease, 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 whether ferry terminal 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 insulin use ([facility]) Use up [...] as of this encounter (statuses as of 09/13/2022) Active Problems Problem Noted Date Hypertensive heart [...] urinary tr act symptoms 07/13/2001 Atherosclerosis of [place] co ronary artery of [place] heart without angina pectoris Morbid obesity with BMI of 40.0-44.9, ad ult documented as of this encounter (statuses as of 09/13/2022) Resolved Problems Problem Noted Date Resolved Date [...] MANAGEMENT 07/22/2008 0 Overview: Kianna Lyn, RN [phone] Examination following surgery 07/11/2008 Difficult intubation 07/10/2008 02/19/2020 Overview: Patient seen and examined in OR#1.Possible difficult intubation.TM distance about 5 cms.MP 3-4. Will plan FOB electively Due to current situation. EXAMINATION OF PARTICIPANT IN CLINICAL TRIAL-gen omics 07/04/2008 05/30/2009 Overview: Renamed Per Clinical Trials Billing Project. Study Titile: Genomic Markers for Patients with Cardiovascular Disease Project #[id number] PI: Miriam Roque MD Please call [phone] with study related questions Chronic coronary artery [...] at goal 07/04/2008 9 GENOMICS CARDIO RESEARCH OTHER*[id number] 200803/23/2016 Overview: Renamed Per Clinical Trials Billing Project. Study Titile: Genomic Markers for Patients with Cardiovascular Disease Project #[id number] PI: Miriam Roque MD Please call [phone] with study related questions Kidney disease, chronic, [...] as of this encounter (statuses as of 09/13/2022) Immunizations Name Administration Dates Next Due COVID-19 [...] file Travel History Travel Start Travel End [facility] 07/29/2022 08/13/2022 documented as of this encounter Miscellaneous Notes * Telephone Encounter - Lisha Parrish RN - 09/13/2022 3:[address] Veronica is at at [facility] Provider to address: na Reason for Call: Fax Contact: Telephone Call Contact Type: Follow-up Outcome: labs faxed Total Time including non face to face (minutes): 10 * Telephone Encounter - KATHE James - 09/10/2022 10:09 AM EDT Caller requesting the following information to be faxed: Name/Company of caller: patient Information requested to be faxed: Lab results from 09/09/22 Fax number: unknown Attention to Name/Company: Dr. Veronica? Any additional information?: n/a documented in this encounter Plan of Treatment Upcoming Encounters Date Type Specialty Care Team Description 09/21/2022 Office Visit Cardiology Blair Hannah PA-C [address] [place] [address] 09/22/2022 Imaging Radiology 10/04/[address] [place] [address] 10/07/2022 Cardiac Studies Cardiology [facility] [address] [place] [address] 10/11/2022 Office Visit Sleep Disorders Eulalia Milligan DO [address] [place] [address] 10/12/2022 Office Visit Nephrology Quin Narvaez MD [address] [place] [address] 10/25/2022 Office Visit Family Medicine Nicola Prado MD [address] [place] [address] [place] [address] 11/30/2022 Office Visit Urology Denny Armando MD [address] [place] [address] [place] [address] 12/20/2022 Office Visit Dermatology Meron Aragon PA-C [address] [place] [address] [place] [address] 01/24/2023 Office Visit Rheumatology Ashley Mancilla PA-C 03/04/2023 Office Visit Gastroenterology Marielena Hall, [place] [address] [place] [address] 06/02/2023 Nurse Only Ancillary Neeraj, Nurse Annual [address] [place] [address] Scheduled Procedures Name Priority Associated Diagnoses Date/Ti [...] this encounter Medical Devices Implanted Type Area Lithograph Operator Device Identifier Shelf Expiration Date Model / Serial / Lot Sut Steel 6 M654g - [id number] Implanted:Qty: 6 on 07/10/[place] [facility]A: Chest DO NOT USE 08/14/2012 [id number] / / [id number] documented as of this encounter Advance Directives Documents on File Type Date Recorded Patient Used Car Renovator Expl anation Power of Insurance Loss Assessor 06/26/2019 POWER OF A TTORNEY Advance Directives [...] the patient have Health Care Power of Insurance Loss Assessor? No Code Status History Code Status Date [...] patient or by statute hierarchy) Care Teams Packaging Clerk Relationship Specialty Start Date End Date Nicola Prado MD [address] [place] [address] [place] [address] PCP - General Family Medicine 06/19/21 documented as of this encounter
--- OUTSIDE RECORDS SUMMARY | 2023-02-03 20:35 | External Medical Summary ---
Author Name Unknown Address Unknown Organization K01:LABORATORY [facility] - [address] [facility] [address] Laboratory Report Ordering Provider Test Date Status MIKY PARISH 09/21/2022 13:06:56 Final Observation Date Value Abnormality Reference (Units ) Status SYNC LEUKOCYTES IN BLOOD BY AUTOMATED COUNT 09/21/2022 13:06:56 9.67 4.00-10.80 (K/uL) Final Segs 09/21/2022 13:06:56 71.7 40.0-75.0 (%) Final Lymphs % 09/21/2022 13:06:56 15.4 Below low normal 18.0-42.0 (%) Final Monos 09/21/2022 13:06:56 3.8 1.0-11.0 (%) Final Eosinophils 09/21/2022 13:06:56 7.9 Above high normal 0.0-6.0 (%) Final Basos 09/21/2022 13:06:56 0.7 0.0-2.0 (%) Final Immature Granulocyte, Percent 09/21/2022 13:06:56 0.5 0.0-2.0 (%) Final Absolute Segs 09/21/2022 13:06:56 6.93 1.80-7.70 (K/uL) Final Lymphs, absolute 09/21/2022 13:06:56 1.49 1.00-4.80 (K/ul) Final Monos, Abs 09/21/2022 13:06:56 0.37 0.00-1.10 (K/uL) Final Eos, Abs 09/21/2022 13:06:56 0.76 Above high normal 0.00-0.70 (K/uL) Final Basos, Abs 09/21/2022 13:06:56 0.07 0.00-0.20 (K/uL) Final Immature Granulocytes, Number 09/21/2022 13:06:56 0.05 0.00-0.20 (K/uL) Final Performing Location LABORATORY [facility] - [address] [facility] [address]
--- OUTSIDE RECORDS SUMMARY | 2023-02-03 20:35 | External Medical Summary | Summary of Care ---
Author Name Unknown Organization [facility] Address [address] [place] [address] Phone [phone] Care Team Providers Care Receiving Distribution Station Operator Name Role Phone Nicola Prado MD Primary Care Provide r Reason for Visit * Reason Onset Date Comments Precert Approved 03/26/2022 ENBREL Encounter Details Date Type Department Care Team Description 03/26/[address] [place] [address] Meron Aragon PA-C [address] [place] [address] [place] [address] Precert Approved ( ENBREL) Allergies Active Allergy Reactions Severity Noted Date Comments Hydromorphone High 09/20/2021 Other reaction(s): Nausea Other reaction(s): Nausea 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/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 Other reaction(s): AMS Other reaction(s): AMS Prasugrel 04/02/2016 bleeding Prednisone High 09/20/2021 Other reaction(s): INCREASE BLOOD SUGAR Other reaction(s): INCREASE BLOOD SUGAR documented as of this encounter (statuses as of 09/15/2022) Medications Medication Sig Dispensed Refills Start Date End Date Status ASPIRIN 81 MG PO CHEWIndications: Unstable angina (HCC),Chronic coronary artery disease,Difficul t intubation 1 Tab Oral Daily 1 0 07/22/19 09 Active oxygen IN GAS Use 2 L/min(Oxygen) as directed daily. 2.5 LPMBled through bipap And 2 LPM with exertion DME: [facility] 1 Each 0 03/24/19 21 Active Additional Information Patient taking differently:2 L/min(Oxygen) [...] TabLET by mouth daily. 30 Tablet 11 04/28/19 22 Active Sertraline HCl 50 MG Oral Tablet (Zoloft)Indicati ons:Outbursts of anger,Current mild episode of major depressive disorder without prior episode (HCC) Take 1 tablet by mouth daily in the morning. 30 Tablet 1 05/12/19 22 Active Betamethasone Dipropionate 0.05 % External OintmentIndicati ons:Plaque psoriasis,Asteat otic eczema Apply 2x daily to rash on back/abdomen/arms/ legs until resolved, then when flaring again 100 g 0 05/12/19 22 Active Probiotic Daily Oral Capsule Take by mouth 1 Capsule in the morning. 0 Active Losartan Potassium 25 MG Oral Tablet (Cozaar) Take by mouth 1 Tablet in the morning. 30 Tablet 6 06/27/19 22 Active Vitamin D3 1.25 MG (91620 UT) Oral Capsule Take 1 Capsule by mouth in the morning. 0 Active CPAP every night at bedtime . 2 Liters 0 Active Baclofen 20 MG Oral TabletIndication s:Muscle cramps one pill three times a day as needed for tight muscles 30 Tablet 0 10/27/19 22 Active Diclofenac Sodium 1 % External Gel (Voltaren) Apply topically to affected area 2 g in the morning AND 2 g before bedtime. Apply to affected area of lower back up to twice a day as needed for pain. Wash hands after.. 100 g 1 10/31/19 22 Active Simethicone 80 MG Oral Tablet Chewable (Mylicon)Indicat ions:Gastroenter itis Take by mouth 1 Tablet as needed in the morning AND 1 Tablet as needed at noon AND 1 Tablet as needed in the evening AND 1 Tablet as needed before bedtime for Gas. 100 Tablet 0 11/26/19 22 Active Triamcinolone Acetonide 0.1 % External Ointment (Aristocort)Kimberly cations:Plaque psoriasis Apply to rash on trunk/arms/legs 2x daily (when thinner and less noticeable and less bothersome) until resolved, then when flaring 454 g 1 12/15/19 Active Allopurinol 300 MG Oral Tablet (Zyloprim) Take 1 Tablet by mouth daily. 90 Tablet 3 12/17/19 22 Active guaiFENesin ER 600 MG Oral Tablet Extended Release 12 Hour (Mucinex)Indicat ions:COPD exacerbation (HCC),Chronic cough Take by mouth 1 Tablet 2 times a day as needed for Congestion. Take with plenty of water. Do not cut, crush or chew 40 Tablet 2 12/18/19 22 Active OneTouch UltraSoft LancetsIndicatio ns:Type 2 diabetes mellitus with hemoglobin A1c goal of less than 8.0% (HCC) Test blood sugar up to five times daily; dx E11.9 450 Each 3 12/18/19 Active OneTouch Ultra In Vitro Strip (Glucose Blood)Indication s:Type 2 diabetes mellitus with hemoglobin A1c goal of less than 8.0% (HCC) 3-4 times a day 450 Strip 3 12/18/19 Active Xiidra 5 % Ophthalmic Solution instill 1 drop by ophthalmic route 2 times every day into both eyes. OK for 90 day supply. 0 01/06/20 22 Active Atorvastatin Calcium 80 MG Oral Tablet (Lipitor)Indicat ions:Dyslipidemi a, goal LDL below 70 Take 1 Tablet by mouth daily. 90 Tablet 2 01/26/20 22 Active Isosorbide Mononitrate ER 30 MG Oral Tablet Extended Release 24 Hour (Imdur) Take 1 Tablet by mouth daily. In the morning. 90 Tablet 3 03/10/19 23 Active NovoLOG FlexPen 100 UNIT/ML Subcutaneous Solution Pen-injector (insulin aspart)Indicatio ns:Type 2 diabetes mellitus with hemoglobin A1c goal of less than 8.0% (HCC) 12 units with breakfast and supper PLUS correction factor of 1:25 if over 140 mg/dL 110 mL 3 03/23/19 23 Active Tresiba FlexTouch 200 UNIT/ML Subcutaneous Solution Pen-injector (Insulin Degludec)Indicat ions:Type 2 diabetes mellitus with hemoglobin A1c goal of less than 8.0% ([facility]) Inject 110 Units under the skin in the morning. 63 mL 3 03/23/19 23 Active nitroglycerin (NITROSTAT) 0.4 MG SUBL 1 every 5 minutes as needed with chest pain up to 3 doses in 15 minutes 25 Tab 0 05/25/19 19 023 Discontinued(Re fill) Easy Touch Pen [place] 31G X 8 MM (Insulin Pen Needle)Indicatio ns:Type 2 diabetes mellitus with hemoglobin A1c goal of less than 8.0% ([facility]),Type 2 diabetes mellitus with stage 4 chronic kidney disease, unspecified whether senior care insulin use (HCC) Use up to six times daily with insulin. DXe11.9 600 Each 3 05/12/19 22 023 Discontinued Tamsulosin HCl 0.4 MG Oral Capsule (Flomax)Indicati ons:Lower urinary tract symptoms Take by mouth 1 Capsule in the morning. 90 Capsule 3 06/17/19 22 023 Discontinued(Re fill) Victoza 18 MG/3ML Subcutaneous Solution Pen-injector (Liraglutide)Ind ications:Type 2 diabetes mellitus with hemoglobin A1c goal of less than 8.0% ([facility]),Type 2 diabetes mellitus with stage 4 chronic kidney disease, with long-term current use of insulin ([facility]) Inject 1.8 mg under the skin daily. 27 mL 3 09/02/19 22 023 Discontinued Omeprazole 20 MG Oral Capsule Delayed Release (PriLOSEC) Take 1 Capsule BY MOUTH in the morning AND 1 Capsule before bedtime. 60 Capsule 5 10/16/19 22 023 Discontinued ProAir HFA 108 (90 Base) MCG/ACT Inhalation Aerosol SolutionIndicati ons:COPD exacerbation ([facility]),Chronic cough Inhale by mouth 2 Puffs every 4 hours as needed for Cough or Shortness of Breath. Reports doesn't help 18 g 2 12/18/19 22 023 Discontinued Octreotide Acetate 50 MCG/ML Subcutaneous Solution Prefilled Syringe Inject 50 mcg under the skin in the morning and 50 mcg in the evening. 1 syringe in the morning and 1 before bedtime.. 180 mL 3 12/29/19 22 022 Discontinued([place] [facility] prescription brought in as discontinued) Furosemide 80 MG Oral Tablet (Lasix) Take 1 Tablet by mouth in the morning. 90 Tablet 1 02/17/19 23 023 Discontinued Octreotide Acetate 50 MCG/ML Injection Solution (Sandostatin) Inject 50 mcg under the skin in the morning and 50 mcg before bedtime. 60 mL 1 02/22/19 23 023 Discontinued([place] prescription brought in as discontinued) Syringe Luer Lock 25G X 5/8" 3 ML Use as directed twice daily for octreotide injections. 60 Each 1 02/22/19 23 023 Discontinued(Re fill) Enbrel SureClick 50 MG/ML Subcutaneous Solution Auto-injector (Etanercept)Kimberly cations:Polyarti cular psoriatic arthritis (HCC),H/O psoriasis Inject subcutaneously into skin weekly 4 mL 3 03/25/19 23 023 Discontinued([place] prescription brought in as discontinued) documented as of this encounter (statuses as of 09/15/2022) Active Problems Problem Noted Date Hypertensive heart [...] urinary tr act symptoms 07/13/2001 Atherosclerosis of [place] co ronary artery of [place] heart without angina pectoris Morbid obesity with BMI of 40.0-44.9, ad ult documented as of this encounter (statuses as of 09/15/2022) Resolved Problems Problem Noted Date Resolved Date [...] MANAGEMENT 07/22/2008 0 Overview: Kianna Lyn, RN [phone] Examination following surgery 07/11/2008 Difficult intubation 07/10/2008 02/19/2020 Overview: Patient seen and examined in OR#1.Possible difficult intubation.TM distance about 5 cms.MP 3-4. Will plan FOB electively Due to current situation. EXAMINATION OF PARTICIPANT IN CLINICAL TRIAL-gen omics 07/04/2008 05/30/2009 Overview: Renamed Per Clinical Trials Billing Project. Study Titile: Genomic Markers for Patients with Cardiovascular Disease Project #[id number] PI: Miriam Roque MD Please call [phone] with study related questions Chronic coronary artery [...] at goal 07/04/2008 9 GENOMICS CARDIO RESEARCH OTHER*[id number] 200803/23/2016 Overview: Renamed Per Clinical Trials Billing Project. Study Titile: Genomic Markers for Patients with Cardiovascular Disease Project #[id number] PI: Miriam Roque MD Please call [phone] with study related questions Kidney disease, chronic, [...] as of this encounter (statuses as of 09/15/2022) Immunizations Name Administration Dates Next Due COVID-19 [...] Miscellaneous Notes * Telephone Encounter - HARLEY Garcia - 03/26/2022 10:47 AM EST New or re-auth: RE-AUTH Patient Maurisio Beltran needs a prior authorization for their ENBREL through their [employer] insurance. ID: [id number] BIN:[id number] PCN:[id number] Target ship date is 03/31. Thank you very much, HARLEY Garcia [employer] [facility] 03/26/2022,10:49 AM documented in this encounter Plan of Treatment Upcoming Encounters Date Type Specialty Care Team Description 09/21/2022 Office Visit Cardiology Blair Hannah PA-C [address] [place] [address] 09/22/2022 Imaging Radiology 10/04/2022 Pharmacy Pharmacy [address] [place] [address] 10/07/2022 Cardiac Studies Cardiology Keith Pickard [facility] [address] [place] [address] 10/11/2022 Office Visit Sleep Disorders Eulalia Milligan DO [address] [place] [address] 10/12/2022 Office Visit Nephrology Quin Narvaez MD [address] [place] [address] 10/25/2022 Office Visit Family Medicine Nicola Prado MD [address] [place] [address] [place] [address] 11/30/2022 Office Visit Urology Denny Armando MD [address] [place] [address] [place] [id number] 12/20/2022 Office Visit Dermatology Meron Aragon PA-C [address] [place] [address] [place] [address] 01/24/2023 Office Visit Rheumatology Ashley Mancilla PA-C 03/04/2023 Office Visit Gastroenterology Marielena Hall CRNP [address] [place] [address] 06/02/2023 Nurse Only Ancillary [place], Nurse Annual [facility] [address] [place] [address] [place] [address] Scheduled Procedures Name Priority [...] this encounter Medical Devices Implanted Type Area Scallop Binder Device Identifier Shelf Expiration Date Model / Serial / Lot Sut Steel 6 [id number] - [id number] Implanted:Qty: 6 on 07/10/2008 at OR [facility] N/A: Chest DO NOT USE 08/14/2012 [id number] / / [id number] documented as of this encounter Additional Health Concerns Infection Onset Date Last Indicated Resolved Time C. difficile Rule-Out 03/26/2022 03/26/20222022 10:40 PM EST Gastrointestinal Rule-Out 03/26/2022 03/26/2022 7:51 PM EST COVID-19 Immunosuppressed 05/31/2022 05/31/2022 12:19 AM EDT documented as of this encounter Advance Directives Documents on File Type Date Recorded Patient Disabilities Caregiver Expl anation Power of Retail Parts Pro 06/26/2019 POWER OF A TTORNEY Advance Directives [...] patient have Health Care Power of Retail Parts Pro? No Code Status History Code Status Date [...] patient or by statute hierarchy) Care Teams Receiving Distribution Station Operator Relationship Specialty Start Date End Date Nicola Prado MD [address] [place] [address] [place] [address] PCP - General Family Medicine 06/19/21 documented as of this encounter
--- OUTSIDE RECORDS SUMMARY | 2023-02-03 20:35 | External Medical Summary | Summary of Care ---
Author Name Unknown Organization [facility] Address [address] [place] [address] Phone [phone] Care Team Providers Care Forest Products Gatherer Name Role Phone Nicola Prado MD Primary Care Provide r Reason for Referral * Precert (Within 10 days (routine)) - Pending Review Specialty Diagnoses / Procedures Referred By Souleymane t Referred To Contact Radiology Diagnoses Acute nonintractable headache, unspecified headache type Procedures CT HEAD/BRAIN W WO CONTRAST Eleonora Drew PA-C [address] [place] [address] [place] [address] Referral ID Status Reason Start Date Expiration Date V isits Requested Visits Authorized [id number] Pending Review 09/09/2022 999 999 Reason for Visit * Reason Comments Acute Encounter Details Date Type Department Care Team Description 09/09/2022 Office Visit Family Medicine [address] [place] [phone] Eleonora Drew PA-C [address] [place] [address] [place] [address] Acute nonintractable headache, unspecified headache type* Allergies [...] of major depressive disorder without prior episode ([facility]) Take 1 tablet by mouth daily [...] 6 06/26/2021 Active Vitamin D3 1.25 MG (03157 UT) Oral Capsule Take 1 Capsule by [...] 8.0% ([facility]) Inject 110 Units under the skin [...] Tablet 1 05/05/2022 Active Easy Touch Pen [place] 31G X 8 MM (Insulin Pen Needle)Indications: Type 2 diabetes mellitus with hemoglobin A1c goal of less than 8.0% (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 DXe11.9 600 Each 3 05/22/2022 Active Albuterol Sulfate HFA 108 (90 Base) MCG/ACT Inhalation Aerosol SolutionIndications :COPD exacerbation ([facility]),Chronic cough Inhale by mouth 2 Puffs [...] urinary tr act symptoms 07/13/2001 Atherosclerosis of [place] co ronary artery of [place] heart without angina pectoris Morbid obesity [...] aero chamber. Test performed by Dori SUPERVISOR [employer] CPFT Body mass index (BMI) of 45.0 [...] 07/22/2008 0 Overview: Kianna Lyn RN [phone] Examination following surgery 07/11/2008 Difficult intubation 07/10/2008 02/19/2020 Overview: Patient seen and examined in OR#1.Possible difficult intubation.TM distance about 5 cms.MP 3-4. Will plan FOB electively Due to current situation. EXAMINATION OF PARTICIPANT IN CLINICAL TRIAL-gen omics 07/04/2008 05/30/2009 Overview: Renamed Per Clinical Trials Billing Project. Study Titile: Genomic Markers for Patients with Cardiovascular Disease Project #[id number] PI: Miriam Roque MD Please call [phone] with study related questions Chronic coronary artery [...] goal 07/04/2008 07 9 GENOMICS CARDIO RESEARCH OTHER*[id number] 200803/23/2016 Overview: Renamed Per Clinical Trials Billing Project. Study Titile: Genomic Markers for Patients with Cardiovascular Disease Project #[id number] PI: Miriam Roque MD Please call [phone] with study related questions Kidney disease, chronic, [...] file Travel History Travel Start Travel End [facility] 07/29/2022 08/13/2022 documented as of this encounter [...] 30 Tablet 6 Vitamin D3 1.25 MG (73995 UT) Oral Capsule Take 1 Capsule by [...] minutes 25 Tablet 1 Easy Touch Pen [place] 31G X 8 MM (Insulin Pen Needle) [...] fraction (HCC) Acute blood loss anemia 10/29/2020 [facility] transfused Acute exacerbation of chronic obstructive pulmonary disease (COPD) (HCC) 05/11/2018 [facility] Altered mental status 03/31/2017 likely the [...] cuff CKD (chronic kidney disease), stage IV ([facility]) GFR 26.5 COPD, mild (HCC) 08/21/2010 COPD, moderate (HCC) 10/04/2014 PFT Coronary atherosclerosis of [place] coronary artery 07/04/2008 Admitted [facility] COVID-19 02/24/2021 Dermatophytosis of scalp or bello [...] disease, chronic, stage III (GFR 30-59 ml/min) ([facility]) 06/2008 Malignant neoplasm of prostate ([facility]) Prostate Mixed dyslipidemia Morbid obesity with BMI of 45.0-49.9, adult ([facility]) Other psoriasis S/P primary angioplasty with coronary stent 09/05/2013 drug eluting stents to 60% RCA, other grafts open except SVG to PDA is occluded Sleep apnea CPAP Sleep apnea, obstructive Symptomatic anemia 10/29/2020 Admitted [facility] and transfused TIA (transient ischemic attack) 02/04/2016 [facility] Tubular adenoma 10/31/2020 Social History Socioeconomic [...] Asked Self-Exams Not Asked Social History Narrative [employer] before the [employer] bankrupted him. Passed 11/2021 from dementia Social [...] Hannah PA-C [address] [place] [address] 09/22/2022 Imaging Radiology 10/04/[address] [place] [address] 10/07/2022 Cardiac Studies Cardiology [facility] [address] [place] [address] 10/11/2022 Office Visit Sleep Disorders Eulalia Milligan DO [address] [place] [address] 10/12/2022 Office Visit Nephrology Quin Narvaez MD [address] [place] [address] 10/25/2022 Office Visit Family Medicine Nicola Prado MD [address] [place] [address] [place] [address] 11/30/2022 Office Visit Urology Denny Armando MD [address] [place] [address] [place] [address] 12/20/2022 Office Visit Dermatology Meron Aragon PA-C [address] [place] [address] [place] [address] 01/24/2023 Office Visit Rheumatology Ashley Mancilla PA-C 03/04/2023 Office Visit Gastroenterology Marielena Hall CRNP [address] [place] [address] 06/02/2023 Nurse Only Ancillary Neeraj Nurse Annual Wellness [address] [place] [address] [place] [address] Pending Results Name Type Priority Associated Diagnoses Date /Time BUN Lab Routine Acute nonintractable headache, unspecified headache type 09/09/2022 9:42 AM EDT CREATININE Lab Routine Acute nonintractable headache, unspecified headache type 09/09/2022 9:42 AM EDT Scheduled Orders Name Type Priority Associated Diagnoses Orde r Schedule CT HEAD/BRAIN W WO CONTRAST Medical Imaging Routine Acute nonintractable headache, unspecified headache type Ordered: 09/09/2022 BUN Lab Routine Acute nonintractable headache, unspecified headache type Expected: 09/09/2022 (Approximate), Expires: 09/09/2023 CREATININE Lab Routine Acute nonintractable headache, unspecified headache type Expected: 09/09/2022 (Approximate), Expires: 09/09/2023 Scheduled Procedures Name Priority Associated Diagnoses Date/Ti ri ESOPHAGOGASTRODUODENOSCOPY ( EGD), FLEXIBLE, TRANSORAL, DIAGNOSTIC Recall [...] this encounter Medical Devices Implanted Type Area Driver Manager Device Identifier Shelf Expiration Date Model / Serial / Lot Sut Steel 6 [id number] - [id number] Implanted:Qty: 6 on 07/10/2008 at OR [facility] N/A: Chest DO NOT USE 08/14/2012 [id number] / / [id number] documented as of this encounter Visit Diagnoses Diagnosis Acute nonintractable headache, unspecified headache type- Primary documented in this encounter Advance Directives Documents on File Type Date Recorded Patient Manager Track Expl anation Power of Winding Rack Operator 06/26/2019 POWER OF A TTORNEY Advance [...] the patient have Health Care Power of Winding Rack Operator? No Code Status History Code Status [...] patient or by statute hierarchy) Care Teams Forest Products Gatherer Relationship Specialty Start Date End Date Nicola Prado MD [address] [place] [address] [place] [address] PCP - General Family Medicine 06/19/21 documented as of this encounter
--- OUTSIDE RECORDS SUMMARY | 2023-02-03 20:35 | External Medical Summary | Summary of Care ---
Author Name Unknown Organization [facility] Address [address] [place] [address] Phone [phone] Care Team Providers Care Family Services Worker Name Role Phone Nicola Prado MD Primary Care Provide r Reason for Visit * Reason Comments Outpatient Testing Encounter Details Date Type Department Care Team Description 09/21/2022 Laboratory Laboratory [address] [place] [id number] [place] [phone] Prostate cancer (HCC); Iron deficiency anemia; Dyslipidemia, [...] 6 06/26/2021 Active Vitamin D3 1.25 MG (21901 UT) Oral Capsule Take 1 Capsule by [...] WITHIN [facility]) Inject 110 Units under the skin in [...] not taking.Reported on 09/21/2022 Easy Touch Pen [place] 31G X 8 MM (Insulin Pen Needle)Indications: Type 2 diabetes mellitus with hemoglobin A1c goal of less than 8.0% ([facility]),Type 2 diabetes mellitus with stage 4 chronic kidney disease, unspecified whether fci insulin use ([facility]) Use up to six times daily with insulin. DXe11.9 600 Each 3 05/22/2022 Active Albuterol Sulfate HFA 108 (90 Base) MCG/ACT Inhalation Aerosol SolutionIndications :COPD exacerbation (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),H/O psoriasis Inject 50 mg under the [...] urinary tr act symptoms 07/13/2001 Atherosclerosis of [place] co ronary artery of [place] heart without angina pectoris Morbid obesity with [...] (transient ischemic attack) 02/04/2016 11/23/2017 Overview: [facility] Anemia of chronic renal [...] MANAGEMENT 07/22/2008 0 Overview: Kianna Lyn, RN [phone] Examination following surgery 07/11/2008 Difficult intubation 07/10/2008 02/19/2020 Overview: Patient seen and examined in OR#1.Possible difficult intubation.TM distance about 5 cms.MP 3-4. Will plan FOB electively Due to current situation. EXAMINATION OF PARTICIPANT IN CLINICAL TRIAL-gen omics 07/04/2008 05/30/2009 Overview: Renamed Per Clinical Trials Billing Project. Study Titile: Genomic Markers for Patients with Cardiovascular Disease Project #[id number] PI: Miriam Roque MD Please call [phone] with study related questions Chronic coronary artery [...] at goal 07/04/2008 9 GENOMICS CARDIO RESEARCH OTHER*[id number] 200803/23/2016 Overview: Renamed Per Clinical Trials Billing Project. Study Titile: Genomic Markers for Patients with Cardiovascular Disease Project #[id number] PI: Miriam Roque MD Please call [phone] with study related questions Kidney disease, chronic, [...] mRNA, LNP-s, No Pre serve, 2-Dose Series ([employer]) 12/09/2020,05/09/2020,04/11/2020 COVID-19, LNP-s, No Preserve , Juan [...] Team Description 09/22/2022 Imaging Radiology 10/04/[address] [place] [address] 10/07/2022 Cardiac Studies Cardiology MovKeith casillas [facility] [address] [place] [address] 10/11/2022 Office Visit Sleep Disorders Eulalia Milligan DO [address] [place] [address] 10/12/2022 Office Visit Nephrology Quin Narvaez MD [address] [place], [place] [address] [address] 10/25/2022 Office Visit Family Medicine Nicola Prado MD [address] [place] [address] [place] [address] 11/30/2022 Office Visit Urology Denny Armando MD [address] [place] [address] [place] [address] 12/20/2022 Office Visit Dermatology Meron Aragon, PA-C [address] [place] [address] [place] [address] 01/24/2023 Office Visit Rheumatology Ashley Manclila PA-C 03/04/2023 Office Visit Gastroenterology Marielena Hall CRNP [address] [place] [address] 03/29/2023 Office Visit Cardiology Blair Hannah PA-C [address] [place] [address] 06/02/2023 Nurse Only Ancillary Neeraj, Nurse Annual Wellness [address] [place] [address] [place] [address] Pending Results Name Type Priority Associated Diagnoses [...] this encounter Medical Devices Implanted Type Area Furnace Charging Machine Operator Device Identifier Shelf Expiration Date Model / Serial / Lot Sut Steel 6 [id number] - [id number] Implanted:Qty: 6 on 07/10/2008 at OR [facility] N/A: Chest DO NOT USE 08/14/2012 [id number] / / [id number] documented as of this encounter Visit Diagnoses Diagnosis Prostate cancer (HCC) Malignant neoplasm of prostate Iron deficiency anemia Iron deficiency anemia, unspecified Dyslipidemia, goal LDL below 70 Other and unspecified hyperlipidemia documented in this encounter Advance Directives Documents on File Type Date Recorded Patient Oracle Hrms Consultant Expl anation Power of Cooperative Education Director 06/26/2019 POWER OF A TTORNEY Advance [...] the patient have Health Care Power of Cooperative Education Director? No Code Status History Code Status [...] patient or by statute hierarchy) Care Teams Family Services Worker Relationship Specialty Start Date End Date Nicola Prado MD [address] [place] [address] [place] [address] PCP - General Family Medicine 06/19/21 documented as of this encounter
--- OUTSIDE RECORDS SUMMARY | 2023-02-03 20:36 | External Medical Summary | Summary of Care ---
Author Name Unknown Organization [facility] Address [address] [place] [address] Phone [phone] Care Team Providers Care Machining Department Supervisor Name Role Phone Nicola Prado MD Primary Care Provide r Reason for Visit * Reason Comments Outpatient Testing Encounter Details Date Type Department Care Team Description 09/03/2022 Laboratory Laboratory [address] [place] [phone] [place] [phone] Iron deficiency anemia Allergies Active Allergy Reactions Severity Noted Date Comments Hydromorphone High 09/20/2021 Other reaction(s): Nausea Other reaction(s): Nausea 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/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 Other reaction(s): AMS Other reaction(s): AMS Prasugrel 04/02/2016 bleeding Prednisone High 09/20/2021 Other reaction(s): INCREASE BLOOD SUGAR Other reaction(s): INCREASE BLOOD SUGAR documented as of this encounter (statuses as of 09/03/2022) Medications Medication Sig Dispensed Refills Start Date [...] 6 06/26/2021 Active Vitamin D3 1.25 MG (40114 UT) Oral Capsule Take 1 Capsule by [...] 1 05/05/2022 Active Easy Touch Pen [place] 31G X 8 MM (Insulin Pen Needle)Indications: Type 2 diabetes mellitus with hemoglobin A1c goal of less than 8.0% ([facility]),Type 2 diabetes mellitus with stage 4 chronic kidney disease, unspecified whether extermination inspector insulin use ([facility]) Use [...] as of this encounter (statuses as of 09/03/2022) Active Problems Problem Noted Date Hypertensive heart [...] urinary tr act symptoms 07/13/2001 Atherosclerosis of [place] co ronary artery of [place] heart without angina pectoris Morbid obesity with BMI of 45.0-49.9, ad ult documented as of this encounter (statuses as of 09/03/2022) Resolved Problems Problem Noted Date Resolved Date [...] MANAGEMENT 07/22/2008 0 Overview: Kianna Lyn RN [phone] Examination following surgery 07/11/2008 Difficult intubation 07/10/2008 02/19/2020 Overview: Patient seen and examined in OR#1.Possible difficult intubation.TM distance about 5 cms.MP 3-4. Will plan FOB electively Due to current situation. EXAMINATION OF PARTICIPANT IN CLINICAL TRIAL-gen omics 07/04/2008 05/30/2009 Overview: Renamed Per Clinical Trials Billing Project. Study Titile: Genomic Markers for Patients with Cardiovascular Disease Project #[id number] PI: Miriam Roque MD Please call [phone] with study related questions Chronic coronary artery [...] at goal 07/04/2008 9 GENOMICS CARDIO RESEARCH OTHER*[id number] 200803/23/2016 Overview: Renamed Per Clinical Trials Billing Project. Study Titile: Genomic Markers for Patients with Cardiovascular Disease Project #[id number] PI: Miriam Roque MD Please call [phone] with study related questions Kidney disease, chronic, [...] as of this encounter (statuses as of 09/03/2022) Immunizations Name Administration Dates Next Due COVID-19 [...] file Travel History Travel Start Travel End [facility] and [facility] 07/29/2022 08/13/2022 documented as of this encounter Plan of Treatment Upcoming Encounters Date Type Specialty Care Team Description 09/21/2022 Office Visit Cardiology Blair Hannah, PAJovanniC [address] [place] [address] 10/07/2022 Cardiac Studies Cardiology Keith Pickard [facility] [address] [place] [address] 10/11/2022 Office Visit Sleep Disorders Eulalia Milligan DO [address] [place] [address] 10/12/2022 Office Visit Nephrology Quin Narvaez MD [address] [place] [address], [place] [address] 10/25/2022 Office Visit Family Medicine Nicola Prado MD [address] [place] [address] [place] [address] 11/30/2022 Office Visit Urology Denny Armando MD [address] [place] [address] [place] [address] 12/20/2022 Office Visit Dermatology Meron Aragon, JOSE ALFREDOC [address] [place] [address] [place] [address] 01/24/2023 Office Visit Rheumatology Ashley Mancilla PA-C 03/04/2023 Office Visit Gastroenterology Marielena Hall CRNP [address] [place] [address] 06/02/2023 Nurse Only Ancillary Neeraj, Nurse Annual Wellness [address] [place] [address] [place] [address] Pending Results Name Type Priority Associated Diagnoses Date /Time CBC WITH WBC DIFFERENTIAL Lab Routine Iron deficiency anemia 09/03/2022 12:06 PM EDT CBC Lab Routine Iron deficiency anemia 09/03/2022 12:06 PM EDT DIFFERENTIAL, AUTOMATED Lab Routine Iron deficiency anemia 09/03/2022 12:06 PM EDT Scheduled Procedures Name Priority Associated [...] this encounter Medical Devices Implanted Type Area Laborer Shellfish Processing Device Identifier Shelf Expiration Date Model / Serial / Lot Sut Steel 6 [id number] - [id number] Implanted:Qty: 6 on 07/10/2008 at OR [facility] N/A: Chest DO NOT USE 08/14/2012 [id number] / / [id number] documented as of this encounter Visit Diagnoses Diagnosis Iron deficiency anemia Iron deficiency anemia, unspecified documented in this encounter Advance Directives Documents on File Type Date Recorded Patient Patient Transportation Driver Expl anation Power of Nitrogen Operator 06/26/2019 POWER OF A TTORNEY Advance [...] the patient have Health Care Power of Nitrogen Operator? No Code Status History Code Status [...] patient or by statute hierarchy) Care Teams Machining Department Supervisor Relationship Specialty Start Date End Date Nicola Prado MD [address] [place] [address] [place] [address] PCP - General Family Medicine 06/19/21 documented as of this encounter
--- OUTSIDE RECORDS SUMMARY | 2023-02-03 20:36 | External Medical Summary ---
Author Name Unknown Address Unknown Organization K01:[facility] [place] [address] [place] [address] Laboratory Report Ordering Provider Test Date Status [place] 09/09/2022 09:42:25 Final Observation Date Value Abnormality Reference (Units ) Status WBC, Total 09/09/2022 09:42:25 13.50 Above high normal 4.00-10.80 (K/uL) Final RBC 09/09/2022 09:42:25 4.09 4.50-5.25 (M/uL) Final Hemoglobin 09/09/2022 09:42:25 12.5 Below low normal 14.0-16.8 (g/dL) Final HCT 09/09/2022 09:42:25 40.1 40.0-48.4 (%) Final MCV 09/09/2022 09:42:25 98.0 82.0-99.5 (fL) Final MCH 09/09/2022 09:42:25 30.6 27.0-34.0 (pg) Final MCHC 09/09/2022 09:42:25 31.2 32.0-36.0 (g/dL) Final RDW 09/09/2022 09:42:25 14.7 11.5-15.5 (%) Final Platelets 09/09/2022 09:42:25 241 140-400 (K/uL) Final MPV 09/09/2022 09:42:25 9.9 6.6-11.1 (fL) Final Nucleated erythrocytes/100 leukocytes [Ratio] in Blood by Automated count 09/09/2022 09:42:25 0 <=0 (/100 WBCs) Final Performing Location [facility] [place] [address] [place] [address]
--- OUTSIDE RECORDS SUMMARY | 2023-02-03 20:36 | External Medical Summary ---
Author Name Unknown Address Unknown Organization K01:[facility] [place] [address] [place] [address] Laboratory Report Ordering Provider Test Date Status BENJAMIN CREWS 09/09/2022 09:42:25 Final Observation Date Value Abnormality Reference (Units ) Status Creatinine 09/09/2022 09:42:25 2.5 Above high normal 0.6-1.2 (mg/dL) Final Glomerular filtration rate/1.73 sq M.predicted [Volume Rate/Area] in Serum, Plasma or Blood by Creatinine-based formula (CKD-EPI) 09/09/2022 09:42:25 26 Below low normal >=60 (mL/min) Final eGFR is calculated based on the CKD-EPI 2020 equation Performing Location [facility] [place] - [facility] [place][note 2] [address] [place] [address]
--- OUTSIDE RECORDS SUMMARY | 2023-02-03 20:36 | External Medical Summary | Summary of Care ---
Author Name Unknown Organization [facility] Address [address] [place] [address] Phone [phone] Care Team Providers Care Mud Analysis Supervisor Name Role Phone Nicola Prado MD Primary Care Provide r Encounter Details Date Type Department Care Team Description 09/03/2022 Orders Only Laboratory, [address] [address] [place] [address] Iron deficiency anemia* Allergies Active Allergy Reactions Severity Noted Date [...] 6 06/26/2021 Active Vitamin D3 1.25 MG (42614 UT) Oral Capsule Take 1 Capsule by [...] hemoglobin A1c goal of less than 8.0% ([facility]) Inject 110 Units under the [...] 1 05/05/2022 Active Easy Touch Pen [place] 31G X 8 MM (Insulin Pen Needle)Indications: Type 2 diabetes mellitus with hemoglobin A1c goal of less than 8.0% ([facility]),Type 2 diabetes mellitus with stage 4 chronic kidney disease, unspecified whether fci insulin use ([facility]) Use up to six times daily with insulin. DXe11.9 600 Each 3 05/22/2022 Active Albuterol Sulfate HFA 108 (90 Base) MCG/ACT Inhalation Aerosol SolutionIndications :COPD exacerbation ([facility]),Chronic cough Inhale by mouth 2 Puffs every 4 hours as needed for Cough or Shortness of Breath. Reports doesn't help 18 g 2 05/27/2022 Active Additional Information Patient not taking.Reported on 08/11/2022 Victoza 18 MG/3ML Subcutaneous Solution Pen-injector (Liraglutide)Indica tions:Type 2 diabetes mellitus with hemoglobin A1c goal of less than 8.0% ([facility]),Type 2 diabetes mellitus with stage 4 chronic kidney disease, with long-term current use of insulin ([facility]) Inject 1.8 mg under the skin daily. 27 mL 3 07/23/2022 Active Furosemide 80 MG Oral Tablet (Lasix) Take 1 Tablet by mouth in the morning. 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 Will plan FOB electively Due to current situation. EXAMINATION OF PARTICIPANT IN CLINICAL TRIAL-gen omics 07/04/2008 05/30/2009 Overview: Renamed Per Clinical Trials Billing Project. Study Titile: Genomic Markers for Patients with Cardiovascular Disease Project #[id number] PI: Miriam Roque MD Please call [phone] with study related questions Chronic coronary artery [...] at goal 07/04/2008 9 GENOMICS CARDIO RESEARCH OTHER*[id number] 200803/23/2016 Overview: Renamed Per Clinical Trials Billing Project. Study Titile: Genomic Markers for Patients with Cardiovascular Disease Project #[id number] PI: Miriam Roque MD Please call [phone] with study related questions Kidney disease, chronic, [...] file Travel History Travel Start Travel End [facility] 07/29/2022 08/13/2022 documented as of this encounter Plan of Treatment Upcoming Encounters Date Type Specialty Care Team Description 09/21/2022 Office Visit Cardiology Blair Hannah PA-C [address] [place] [address] 10/07/2022 Cardiac Studies Cardiology Keith Pickard [facility] [address] [place] [address] 10/11/2022 Office Visit Sleep Disorders Eulalia Milligan DO [address] [place] [address] 10/12/2022 [facility] [address] [facility] [address] 10/25/2022 Office Visit Family Medicine Nicola Prado MD [address] [place] [address] [place] [address] 11/30/2022 Office Visit Urology Denny Armando MD [address] [place] [address] [place] [address] 12/20/2022 Office Visit Dermatology Meron Aragon PA-C [address] [place] [address] [place] [address] 01/24/2023 Office Visit Rheumatology Ashley Mancilla PA-C 03/04/2023 Office Visit Gastroenterology Marielena Hall CRNP [address] [place] [address] 06/02/2023 Nurse Only Ancillary Neeraj Nurse Annual Wellness [address] [place] [address] [place] [address] Scheduled Orders Name Type Priority Associated Diagnoses Orde r Schedule CBC WITH WBC DIFFERENTIAL Lab Routine Iron deficiency anemia Every Week for 50 Occurrences starting 09/03/2022 until 01/15/2023 Scheduled Procedures Name Priority Associated Diagnoses Date/Ti [...] this encounter Medical Devices Implanted Type Area Occupational Health Nurse Device Identifier Shelf Expiration Date Model / Serial / Lot Sut Steel 6 [id number] - [id number] Implanted:Qty: 6 on 07/10/2008 at [facility] N/A: Chest DO NOT USE 08/14/2012 M654G / / [id number] documented as of this encounter Visit Diagnoses Diagnosis Iron deficiency anemia- Primary Iron deficiency anemia, unspecified documented in this encounter Advance Directives Documents on File Type Date Recorded Patient Flue Blower Expl anation Power of Quantitative Analyst Marketing 06/26/2019 POWER OF A TTORNEY Advance Directives [...] the patient have Health Care Power of Quantitative Analyst Marketing? No Code Status History Code Status Date Activated Date Inactivated Comments Full Code 07/10/2008 6:37 PM 07/21/2008 4:52 PM This o rder reflects the patients wishes and were consensually agreed upon. Full Code 07/04/2008 2:18 PM 07/10/2008 6:30 PM Healthcare Agents on File Name Relationship Healthcare Agent Relationshi p Communication [facility] Child Health Care Repr esentative (appointed verbally by patient or by statute hierarchy) Care Teams Mud Analysis Supervisor Relationship Specialty Start Date End Date Nicola Prado MD [address] [place] [address] [place] [address] PCP - General Family Medicine 06/19/21 documented as of this encounter
--- OUTSIDE RECORDS SUMMARY | 2023-02-03 20:36 | External Medical Summary | Summary of Care ---
Author Name Unknown Organization [facility] Address [address] [place] [address] Phone [phone] Care Team Providers Care Environmental Quality Analyst Name Role Phone Nicola Prado MD Primary Care Provide r Reason for Visit * Reason Comments Outpatient Testing Encounter Details Date Type Department Care Team Description 09/03/2022 Laboratory Laboratory [address] [place] [address] [place] [phone] Iron deficiency anemia Allergies Active Allergy Reactions [...] 6 06/26/2021 Active Vitamin D3 1.25 MG (25614 UT) Oral Capsule Take 1 Capsule by [...] less than 8.0% ([facility]) Inject 110 Units under the skin in [...] Tablet 1 05/05/2022 Active Easy Touch Pen [place] 31G X 8 MM (Insulin Pen Needle)Indications: Type 2 diabetes mellitus with hemoglobin A1c goal of less than 8.0% ([facility]),Type 2 diabetes mellitus with stage 4 chronic kidney disease, unspecified whether predatory animal exterminator insulin use ([facility]) Use up to six times daily with insulin. DXe11.9 600 Each 3 05/22/2022 Active Albuterol Sulfate HFA 108 (90 Base) MCG/ACT Inhalation Aerosol SolutionIndications :COPD exacerbation ([facility]),Chronic cough Inhale by [...] urinary tr act symptoms 07/13/2001 Atherosclerosis of [place] co ronary artery of [place] heart without angina pectoris Morbid obesity with [...] MANAGEMENT 07/22/2008 0 Overview: Kianna Lyn RN [phone] Examination following surgery 07/11/2008 Difficult intubation 07/10/2008 02/19/2020 Overview: Patient seen and examined in OR#1.Possible difficult intubation.TM distance about 5 cms.MP 3-4. Will plan FOB electively Due to current situation. EXAMINATION OF PARTICIPANT IN CLINICAL TRIAL-gen omics 07/04/2008 05/30/2009 Overview: Renamed Per Clinical Trials Billing Project. Study Titile: Genomic Markers for Patients with Cardiovascular Disease Project #[id number] PI: Miriam Roque MD Please call [phone] with study related questions Chronic coronary artery [...] at goal 07/04/2008 9 GENOMICS CARDIO RESEARCH OTHER*[id number] 200803/23/2016 Overview: Renamed Per Clinical Trials Billing Project. Study Titile: Genomic Markers for Patients with Cardiovascular Disease Project #[id number] PI: Miriam Roque MD Please call [phone] with study related questions Kidney disease, chronic, [...] History Travel Start Travel End [facility] 07/29/2022 08/13/2022 documented as of this encounter Plan of Treatment Upcoming Encounters Date Type Specialty Care Team Description 09/21/2022 Office Visit Cardiology Blair Hannah, PAJovanniC [address] [place] [address] 10/07/2022 Cardiac Studies Cardiology Keith Pickard [facility] [address] [place] [address] 10/11/2022 Office Visit Sleep Disorders Eulalia Milligan DO [address] [place] [address] 10/12/2022 Office Visit Nephrology Quin Narvaez MD [address] [place] [address], [place] [address] 10/25/2022 Office Visit Family Medicine Nicola Prado MD [address] [place] [address] [place] [address] 11/30/2022 Office Visit Urology Denny Armando MD [address] [place] [address] [place] [address] 12/20/2022 Office Visit Dermatology Meron Aragon, JOSE ALFREDOC [address] [place] [address] [place] [address] 01/24/2023 Office Visit Rheumatology Ashley Mancilla PA-C 03/04/2023 Office Visit Gastroenterology Marielena Hall CRNP [address] [place] [address] 06/02/2023 Nurse Only Ancillary Neeraj, Nurse Annual Wellness [address] [place] [address] [place] [address] Pending Results Name Type Priority Associated Diagnoses [...] this encounter Medical Devices Implanted Type Area Apricot Packer Device Identifier Shelf Expiration Date Model / Serial / Lot Sut Steel 6 [id number] - [id number] Implanted:Qty: 6 on 07/10/2008 at OR [facility] N/A: Chest DO NOT USE 08/14/2012 [id number] / / [id number] documented as of this encounter Visit Diagnoses Diagnosis Iron deficiency anemia Iron deficiency anemia, unspecified documented in this encounter Advance Directives Documents on File Type Date Recorded Patient Investment Accountant Expl anation Power of Revenue Tax Specialist 06/26/2019 POWER OF A TTORNEY Advance [...] the patient have Health Care Power of Revenue Tax Specialist? No Code Status History Code Status [...] patient or by statute hierarchy) Care Teams Environmental Quality Analyst Relationship Specialty Start Date End Date Nicola Prado MD [address] [place] [address] [place] [address] PCP - General Family Medicine 06/19/21 documented as of this encounter
--- OUTSIDE RECORDS SUMMARY | 2023-02-03 20:36 | External Medical Summary ---
Author Name Unknown Address Unknown Organization K01:[facility] [place] [address] [facility] [address] Laboratory Report Ordering Provider Test Date Status MIKY PARISH 09/09/2022 09:42:25 Final Observation Date Value Abnormality Reference (Units ) Status SYNC LEUKOCYTES IN BLOOD BY AUTOMATED COUNT 09/09/2022 09:42:25 13.50 Above high normal 4.00-10.80 (K/uL) Final Segs 09/09/2022 09:42:25 73.8 40.0-75.0 (%) Final Lymphs % 09/09/2022 09:42:25 13.0 Below low normal 18.0-42.0 (%) Final Monos 09/09/2022 09:42:25 3.7 1.0-11.0 (%) Final Eosinophils 09/09/2022 09:42:25 8.4 Above high normal 0.0-6.0 (%) Final Basos 09/09/2022 09:42:25 0.7 0.0-2.0 (%) Final Immature Granulocyte, Percent 09/09/2022 09:42:25 0.4 0.0-2.0 (%) Final Absolute Segs 09/09/2022 09:42:25 9.95 Above high normal 1.80-7.70 (K/uL) Final Lymphs, absolute 09/09/2022 09:42:25 1.76 1.00-4.80 (K/ul) Final Monos, Abs 09/09/2022 09:42:25 0.50 0.00-1.10 (K/uL) Final Eos, Abs 09/09/2022 09:42:25 1.14 Above high normal 0.00-0.70 (K/uL) Final Basos, Abs 09/09/2022 09:42:25 0.09 0.00-0.20 (K/uL) Final Immature Granulocytes, Number 09/09/2022 09:42:25 0.06 0.00-0.20 (K/uL) Final Performing Location [facility] [place] [facility] [address] Marilou VIVEROS [id number]
--- OUTSIDE RECORDS SUMMARY | 2023-02-03 20:36 | External Medical Summary | Summary of Care ---
Author Name Unknown Organization [facility] Address [address] [place] [address] Phone [phone] Care Team Providers Care Pay Agent Name Role Phone Nicola Prado MD Primary Care Provide r Reason for Visit * Reason Onset Date Comments Appointment 09/08/2022 Pt up all night with a headache, unable to eat and blurred vision. I was able to schedule him for an appt for tomorrow at 920 however he is demanding to be seen today. Encounter Details Date Type Department Care Team Description 09/08/2022 Telephone Family Medicine [address] [phone] Nicola Prado MD [address] [place] [address] [place] [address] Appointment (Pt up all night with a headac... Allergies Active Allergy Reactions Severity Noted Date Comments Hydromorphone High 09/20/2021 Other reaction(s): Nausea Other reaction(s): Nausea 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/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 Other reaction(s): AMS Other reaction(s): AMS Prasugrel 04/02/2016 bleeding Prednisone High 09/20/2021 Other reaction(s): INCREASE BLOOD SUGAR Other reaction(s): INCREASE BLOOD SUGAR documented as of this encounter (statuses as of 09/08/2022) Medications Medication Sig Dispensed Refills Start Date [...] of major depressive disorder without prior episode ([facility]) Take 1 tablet by mouth [...] 6 06/26/2021 Active Vitamin D3 1.25 MG (74526 UT) Oral Capsule Take 1 Capsule by [...] or chew 40 Tablet 2 12/17/2021 Active [place]Touch UltraSoft LancetsIndications: Type 2 diabetes mellitus with [...] 8.0% ([facility]) Inject 110 Units under [...] Tablet 1 05/05/2022 Active Easy Touch Pen [place] 31G X 8 MM (Insulin Pen Needle)Indications: Type 2 diabetes mellitus with hemoglobin A1c goal of less than 8.0% ([facility]),Type 2 diabetes mellitus with stage 4 chronic kidney disease, unspecified whether moth exterminator insulin use ([facility]) Use up to six times daily with insulin. DXe11.9 600 Each 3 05/22/2022 Active Albuterol Sulfate HFA 108 (90 Base) MCG/ACT Inhalation Aerosol SolutionIndications :COPD exacerbation ([facility]),Chronic cough [...] as of this encounter (statuses as of 09/08/2022) Active Problems Problem Noted Date Hypertensive heart [...] as of this encounter (statuses as of 09/08/2022) Resolved Problems Problem Noted Date Resolved Date [...] MANAGEMENT 07/22/2008 0 Overview: Kianna Lyn RN [phone] Examination following surgery 07/11/2008 Difficult intubation 07/10/2008 02/19/2020 Overview: Patient seen and examined in OR#1.Possible difficult intubation.TM distance about 5 cms.MP 3-4. Will plan FOB electively Due to current situation. EXAMINATION OF PARTICIPANT IN CLINICAL TRIAL-gen omics 07/04/2008 05/30/2009 Overview: Renamed Per Clinical Trials Billing Project. Study Titile: Genomic Markers for Patients with Cardiovascular Disease Project #[id number] PI: Miriam Roque MD Please call [phone] with study related questions Chronic coronary artery [...] at goal 07/04/2008 9 GENOMICS CARDIO RESEARCH OTHER*[id number] 200803/23/2016 Overview: Renamed Per Clinical Trials Billing Project. Study Titile: Genomic Markers for Patients with Cardiovascular Disease Project #[id number] PI: Miriam Roque MD Please call [phone] with study related questions Kidney disease, chronic, [...] as of this encounter (statuses as of 09/08/2022) Immunizations Name Administration Dates Next Due COVID-19 mRNA, LNP-s, No Pre serve, 2-Dose Series ([employer]) 12/09/2020,05/09/2020,04/11/2020 COVID-19, LNP-s, No Preserve , Juan [...] file Travel History Travel Start Travel End [facility] 07/29/2022 08/13/2022 documented as of this encounter Miscellaneous Notes * Telephone Encounter - HARLEY Garcia - 09/08/2022 4:35 PM EDT Transferring pt to scheduling to check for any other appts. Thank You, Lino Treadwell [facility] Film Processing Shift Supervisor II [facility] Pharmacy Services (Formerly Telepharmacy) 09/08/2022, 4:36 PM * Telephone Encounter - Lisha Parrish RN - 09/08/2022 12:58 PM EDT Pt has an appt tomorrow, We do not have anything available today * Telephone Encounter - KATHE Dorsey - 09/08/2022 11:35 AM EDT No Appointments Available Patient declined appointments?: No What Visit Type is needed? Annual Wellness Visit If Acute Visit Type is needed, were surrounding clinics offered to patient (Yes/No)? Yes Was patient offered appointments with other available providers (Yes/No)? Yes See Call Details? (Yes or No): Yes documented in this encounter Plan of Treatment Upcoming Encounters Date Type Specialty Care Team Description 09/09/2022 Office Visit Family Medicine Alissa Drew PA-C [address] [place] [address] [place] [address] 09/21/2022 Office Visit Cardiology Blair Hannah PA-C [address] [place] [address] 10/04/[address] [place] [address] 10/07/2022 Cardiac Studies Cardiology [facility] [place] [address] [place] [address] 10/11/2022 Office Visit Sleep Disorders Eulalia Milligan DO [address] [place] [address] 10/12/2022 Office Visit Nephrology Quin Narvaez MD [address] [place], [place] [address] [address] 10/25/2022 Office Visit Family Medicine Nicola Prado MD [address] [place] [address] [place] [address] 11/30/2022 Office Visit Urology Denny Armando MD [address] [place] [address] [place] [address] 12/20/2022 Office Visit Dermatology Meron Aragon PA-C [address] [place] [address] [place] [address] 01/24/2023 Office Visit Rheumatology Ashley Mancilla PA-C 03/04/2023 Office Visit Gastroenterology Marielena Hall CRNP [address] [place] [address] 06/02/2023 Nurse Only Ancillary Neeraj Nurse Annual Wellness [address] [place] [address] [place] [address] Scheduled Procedures Name Priority Associated Diagnoses Date/Ti [...] this encounter Medical Devices Implanted Type Area Electric Installer Device Identifier Shelf Expiration Date Model / Serial / Lot Sut Steel 6 [id number] - [id number] Implanted:Qty: 6 on 07/10/[address] [facility] N/A: Chest DO NOT USE 08/14/2012 [id number] / / [id number] documented as of this encounter Advance Directives Documents on File Type Date Recorded Patient Supervisor Anodizing Expl anation Power of Bander And Cellophaner Machine 06/26/2019 POWER OF A TTORNEY Advance [...] the patient have Health Care Power of Bander And Cellophaner Machine? No Code Status History Code Status Date Activated Date Inactivated Comments Full Code 07/10/2008 6:37 PM 07/21/2008 4:52 PM This o rder reflects the patients wishes and were consensually agreed upon. Full Code 07/04/2008 2:18 PM 07/10/2008 6:30 PM Healthcare Agents on File Name Relationship [facility] Shane Beltran Adult Child Health Care Repr esentative (appointed verbally by patient or by statute hierarchy) Care Teams Pay Agent Relationship Specialty Start Date End Date Nicola Prado MD [address] [place] [address] [place] [address] PCP - General Family Medicine 06/19/21 documented as of this encounter
--- OUTSIDE RECORDS SUMMARY | 2023-02-03 20:36 | External Medical Summary | Summary of Care ---
Author Name Unknown Organization [facility] Address [address] [place] [address] Phone [phone] Care Team Providers Care Environmental Geologist Name Role Phone Nicola Prado MD Primary [...] Care Team Description 09/08/2022 Telephone Family Medicine [address] [phone] Nicola Prado MD [address] [place] [address] [place] [address] Appointment (Pt up all [...] disorder without prior episode ([facility]) Take 1 tablet by mouth daily in [...] 6 06/26/2021 Active Vitamin D3 1.25 MG (40606 UT) Oral Capsule Take 1 Capsule by [...] or chew 40 Tablet 2 12/17/2021 Active [employer]Touch UltraSoft LancetsIndications: Type 2 diabetes mellitus with [...] Tablet 1 05/05/2022 Active Easy Touch Pen [place] 31G X 8 MM (Insulin Pen Needle)Indications: Type 2 diabetes mellitus with hemoglobin A1c goal of less than 8.0% ([facility]),Type 2 diabetes mellitus with stage 4 chronic kidney disease, unspecified whether emt intermediate insulin use ([facility] [...] urinary tr act symptoms 07/13/2001 Atherosclerosis of [place] co ronary artery of [place] heart without angina pectoris Morbid obesity with [...] MANAGEMENT 07/22/2008 0 Overview: Kianna Lyn RN [phone] Examination following surgery 07/11/2008 Difficult intubation 07/10/2008 02/19/2020 Overview: Patient seen and examined in OR#1.Possible difficult intubation.TM distance about 5 cms.MP 3-4. Will plan FOB electively Due to current situation. EXAMINATION OF PARTICIPANT IN CLINICAL TRIAL-gen omics 07/04/2008 05/30/2009 Overview: Renamed Per Clinical Trials Billing Project. Study Titile: Genomic Markers for Patients with Cardiovascular Disease Project #[id number] PI: Miriam Roque MD Please call [phone] with study related questions Chronic coronary artery [...] at goal 07/04/2008 9 GENOMICS CARDIO RESEARCH OTHER*[id number] 200803/23/2016 Overview: Renamed Per Clinical Trials Billing Project. Study Titile: Genomic Markers for Patients with Cardiovascular Disease Project #[id number] PI: Miriam Roque MD Please call [phone] with study related questions Kidney disease, chronic, [...] Travel History Travel Start Travel End [facility] 07/29/2022 08/13/2022 documented as of this [...] Visit Family Medicine Alissa Drew PA-C [address] [place] [address] [place] [address] 09/21/2022 Office Visit Cardiology Blair Hannah PA-C [address] [place] [address] 10/04/2022 Pharmacy Pharmacy [address] [place] [address] 10/07/2022 Cardiac Studies Cardiology [facility] [address] [place] [address] 10/11/2022 Office Visit Sleep Disorders Eulalia Milligan DO [address] [place] [address] 10/12/2022 Office Visit Nephrology Quin Narvaez MD [address] [place] [address] 10/25/2022 Office Visit Family Medicine Nicola Prado MD [address] [place] [address] [place] [address] 11/30/2022 Office Visit Urology Denny Armando MD [address] [place] [address] [place] [address] 12/20/2022 Office Visit Dermatology Meron Aragon PA-C [address] [place] [address] [place] [address] 01/24/2023 Office Visit Rheumatology Ashley Mancilla PA-C 03/04/2023 Office Visit Gastroenterology Marielena Hall CRNP [address] [place] [address] 06/02/2023 Nurse Only Ancillary Neeraj, Nurse Annual Wellness [address] [place] [address] [place] [address] Scheduled Procedures Name Priority Associated Diagnoses Date/Ti [...] this encounter Medical Devices Implanted Type Area Biomass Power Plant Superintendent Device Identifier Shelf Expiration Date Model / Serial / Lot Sut Steel 6 [id number] - [id number] Implanted:Qty: 6 on 07/10/2008 at OR [facility] N/A: Chest DO NOT USE 08/14/2012 [id number] / / [id number] documented as of this encounter Advance Directives Documents on File Type Date Recorded Patient City Library Director Expl anation Power of Detective And Intelligence Analyst 06/26/2019 POWER OF A TTORNEY Advance [...] the patient have Health Care Power of Detective And Intelligence Analyst? No Code Status History Code Status [...] or by statute hierarchy) Care Teams Environmental Geologist Relationship Specialty Start Date End Date Sellathurai, Thiviyanath, MD [address] [place] [address] [place] [address] PCP - General Family Medicine 06/19/21 documented as of this encounter
--- OUTSIDE RECORDS SUMMARY | 2023-02-03 20:36 | External Medical Summary | Summary of Care ---
Author Name Unknown Organization [facility] Address [address] [place] [address] Phone [phone] Care Team Providers Care Eastern Philosophy Professor Name Role Phone Nicola Prado MD Primary [...] Care Team Description 09/08/2022 Telephone Family Medicine [address] [phone] Nicola Prado MD [address] [place] [address] [place] [address] Appointment (Pt up all [...] of major depressive disorder without prior episode ([facility]) Take 1 tablet by mouth daily [...] 6 06/26/2021 Active Vitamin D3 1.25 MG (39785 UT) Oral Capsule Take 1 Capsule by [...] or chew 40 Tablet 2 12/17/2021 Active GlucoSentientTouch UltraSoft LancetsIndications: Type 2 diabetes mellitus with [...] than 8.0% ([facility]) Inject 110 Units under the skin [...] Tablet 1 05/05/2022 Active Easy Touch Pen [place] 31G X 8 MM (Insulin Pen Needle)Indications: Type 2 diabetes mellitus with hemoglobin A1c goal of less than 8.0% ([facility]),Type 2 diabetes mellitus with stage 4 chronic kidney disease, unspecified whether intermediate manager insulin use ([facility]) Use up to six times daily with insulin. DXe11.9 600 Each 3 05/22/2022 Active Albuterol Sulfate HFA 108 (90 Base) MCG/ACT Inhalation Aerosol SolutionIndications :COPD exacerbation ([facility]),Chronic cough Inhale [...] urinary tr act symptoms 07/13/2001 Atherosclerosis of [place] co ronary artery of [place] heart without angina pectoris Morbid obesity with [...] MANAGEMENT 07/22/2008 0 Overview: Kianna Lyn RN [phone] Examination following surgery 07/11/2008 Difficult intubation 07/10/2008 02/19/2020 Overview: Patient seen and examined in OR#1.Possible difficult intubation.TM distance about 5 cms.MP 3-4. Will plan FOB electively Due to current situation. EXAMINATION OF PARTICIPANT IN CLINICAL TRIAL-gen omics 07/04/2008 05/30/2009 Overview: Renamed Per Clinical Trials Billing Project. Study Titile: Genomic Markers for Patients with Cardiovascular Disease Project #[id number] PI: Miriam Roque MD Please call [phone] with study related questions Chronic coronary artery [...] at goal 07/04/2008 9 GENOMICS CARDIO RESEARCH OTHER*[id number] 200803/23/2016 Overview: Renamed Per Clinical Trials Billing Project. Study Titile: Genomic Markers for Patients with Cardiovascular Disease Project #[id number] PI: Miriam Roque MD Please call [phone] with study related questions Kidney disease, chronic, [...] file Travel History Travel Start Travel End [facility] 07/29/2022 08/13/2022 documented as of this [...] Office Visit Family Medicine Alissa Drew PA-C [address] [place] [address] [place] [address] 09/21/2022 Office Visit Cardiology Blair Hannah PA-C [address] [place] [address] 10/04/2022 Pharmacy Pharmacy [address] [place] [address] 10/07/2022 Cardiac Studies Cardiology [facility] [address] [place] [address] 10/11/2022 Office Visit Sleep Disorders Eulalia Milligan DO [address] [place] [address] 10/12/2022 Office Visit Nephrology Quin Narvaez MD [address] [place] [address] 10/25/2022 Office Visit Family Medicine Nicola Prado MD [address] [place] [address] [place] [address] 11/30/2022 Office Visit Urology Denny Armando MD [address] [place] [address] 12/20/2022 Office Visit Dermatology Meron Aragon PA-C [address] [place] [address] [place] [address] 01/24/2023 Office Visit Rheumatology Ashley Mancilla PA-C 03/04/2023 Office Visit Gastroenterology Marielena Hall CRNP [address] [place] [address] 06/02/2023 Nurse Only Ancillary Neeraj, Nurse Annual Wellness [address] [place] [address] [place] [address] Scheduled Procedures Name Priority Associated Diagnoses Date/Ti [...] this encounter Medical Devices Implanted Type Area Conservation Officer Device Identifier Shelf Expiration Date Model / Serial / Lot Sut Steel 6 [id number] - [id number] Implanted:Qty: 6 on 07/10/2008 at OR [facility] N/A: Chest DO NOT USE 08/14/2012 [id number] / / [id number] documented as of this encounter Advance Directives Documents on File Type Date Recorded Patient Software Quality Analyst Expl anation Power of Cable Tester 06/26/2019 POWER OF A TTORNEY Advance [...] the patient have Health Care Power of Cable Tester? No Code Status History Code Status [...] patient or by statute hierarchy) Care Teams Eastern Philosophy Professor Relationship Specialty Start Date End Date Sellathurai, Thiviyanath, MD [address] [place] [address] [place] [address] PCP - General Family Medicine 06/19/21 documented as of this encounter
--- OUTSIDE RECORDS SUMMARY | 2023-02-03 20:36 | External Medical Summary ---
Author Name Unknown Address Unknown Organization K01:[facility] [address] [place] [address] Laboratory Report Ordering Provider Test Date Status BENJAMIN CREWS 09/09/2022 09:42:25 Final Observation Date Value Abnormality Reference (Units ) Status BUN 09/09/2022 09:42:25 34 Above high normal 6- 20 (mg/dL) Final Performing Location [facility] - [address] [place] [address]
--- OUTSIDE RECORDS SUMMARY | 2023-02-03 20:37 | External Medical Summary | Summary of Care ---
Author Name Unknown Organization [facility] Address [address] [place] [address] Phone [phone] Care Team Providers Care Hopper Attendant Name Role Phone Nicola Prado MD Primary Care Provide r Reason for Referral * Evaluate & Treat - Unlimited Visits (Within 10 days (routine)) - Authorized Specialty Diagnoses / Procedures Referred By Souleymane rogel Referred To Contact CARDIAC REHAB / Cardiology Diagnoses Aortocoronary bypass status Chance Xavier DO [address] [place] [id number] Referral ID Status Reason Start Date Expiration Date Visits Requested Visits Authorized [id number] Authorized Specialty Services Required 09/01/2022 999 999 Question Answer Referral Priority Within 10 days (routine) Cardiac Rehabilitation Modality No Preference, either is clinically appropriate Encounter Details Date Type Department Care Team Description 09/01/2022 Orders Only Cardiac Rehab Advanced, Virtual [address] [place] [address] [place] [address] Chance Xavier DO [address] [facility] [place] [address] Aortocoronary bypass status* Allergies Active Allergy Reactions Severity Noted Date Comments Hydromorphone High 09/20/2021 Other reaction(s): Nausea Other reaction(s): Nausea 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/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 Other reaction(s): AMS Other reaction(s): AMS Prasugrel 04/02/2016 bleeding Prednisone High 09/20/2021 Other reaction(s): INCREASE BLOOD SUGAR Other reaction(s): INCREASE BLOOD SUGAR documented as of this encounter (statuses as of 09/01/2022) Medications Medication Sig Dispensed Refills Start Date [...] of major depressive disorder without prior episode ([facility]) Take 1 tablet by mouth daily [...] 6 06/26/2021 Active Vitamin D3 1.25 MG (61793 UT) Oral Capsule Take 1 Capsule by [...] hands after.. 100 g 1 10/30/2021 Active Additional Information Patient not taking.Reported on 08/11/2022 Simethicone 80 MG Oral Tablet Chewable (Mylicon)Indication [...] less than 8.0% ([facility]) Test blood sugar up to five times daily; dx E11.9 450 Each 3 12/17/2021 Active OneTouch Ultra In Vitro Strip (Glucose Blood)Indications:T ype 2 diabetes mellitus with hemoglobin A1c goal of less than 8.0% ([facility]) 3-4 times a day 450 [...] less than 8.0% ([facility]) 12 units with breakfast and [...] Tablet 1 05/05/2022 Active Easy Touch Pen [place] 31G X 8 MM (Insulin Pen Needle)Indications: [...] a week. 4 mL 1 08/04/2022 Active Additional Information Patient not taking.Reported on 08/11/2022 Octreotide Acetate 50 MCG/ML Injection Solution (Sandostatin) Octreotide 50 mcg vials. Inject 50mcg twice daily under skin Syringes 27 gauge 1/2inch 180 mL 1 09/01/2022 Active Tuberculin Syringe 27G X 1/2" 1 ML Use with octreotide injections 180 Each 1 09/01/2022 Active Octreotide Acetate 50 MCG/ML Injection Solution [...] as of this encounter (statuses as of 09/01/2022) Active Problems Problem Noted Date Hypertensive heart [...] urinary tr act symptoms 07/13/2001 Atherosclerosis of [place] co ronary artery of [place] heart without angina pectoris Morbid obesity with BMI of 45.0-49.9, ad ult documented as of this encounter (statuses as of 09/01/2022) Resolved Problems Problem Noted Date Resolved Date [...] MANAGEMENT 07/22/2008 0 Overview: Kianna Lyn, RN [phone] Examination following surgery 07/11/2008 Difficult intubation 07/10/2008 02/19/2020 Overview: Patient seen and examined in OR#1.Possible difficult intubation.TM distance about 5 cms.MP 3-4. Will plan FOB electively Due to current situation. EXAMINATION OF PARTICIPANT IN CLINICAL TRIAL-gen omics 07/04/2008 05/30/2009 Overview: Renamed Per Clinical Trials Billing Project. Study Titile: Genomic Markers for Patients with Cardiovascular Disease Project #[id number] PI: Miriam Roque MD Please call [phone] with study related questions Chronic coronary artery [...] at goal 07/04/2008 9 GENOMICS CARDIO RESEARCH OTHER*[id number] 200803/23/2016 Overview: Renamed Per Clinical Trials Billing Project. Study Titile: Genomic Markers for Patients with Cardiovascular Disease Project #[id number] PI: Miriam Roque MD Please call [phone] with study related questions Kidney disease, chronic, [...] as of this encounter (statuses as of 09/01/2022) Immunizations Name Administration Dates Next Due COVID-19 mRNA, LNP-s, No Pre serve, 2-Dose Series (Branding Brand) 12/09/2020,05/09/2020,04/11/2020 COVID-19, LNP-s, No Preserve , Juan [...] as of this encounter Progress Notes * ALTON Ferrari - 09/01/2022 5:12 PM EDT Images from the original note were not included. 09/01/2022 Good Afternoon, We would like to let you know that your patient has chosen to participate in [facility]'s Virtual Cardiac Rehab program in partnership with [employer]. [employer] is a specialized company that specializes in providing cardiac rehab service. Our program is supervised by [facility] clinicians and includes all the dottie of our in-person rehab programs, such as exercise training and heart healthy education. During the 12-week program, patients meet with an adventure guide over video to work on their recovery 2-3 times per week to help support them and strengthen their heart. To begin the process of enrollment, Dr. Chance Xavier, [facility] Pocket Secretary Assembler has placed an outpatient cardiac rehabilitation referral for your patient to participate in our virtual program with Sarabjit. If you have any questions or concerns about this program, please contact Ashley JOHNSON [facility] EP-C Thank you, Cardiac Rehabilitation Staff [facility] [address] [place] [facility] [address] [email or web address] documented in this encounter Plan of Treatment Upcoming Encounters Date Type Specialty Care Team Description 09/03/2022 Office Visit [address] [place] [address] 09/03/2022 Office Visit Gastroenterology Marielena Hall CRNP [address] [place] [address] 09/21/2022 Office Visit Cardiology Blair Hannah PA-C [address] [place] [address] 10/07/2022 Cardiac Studies Cardiology Keith Pickard [facility] [address] [place] [address] 10/11/2022 Office Visit Sleep Disorders Eulalia Milligan, [address] [place] [address] 10/12/2022 Office Visit Nephrology Quin Narvaez MD [address] [facility] [place] [address] 10/25/2022 Office Visit Family Medicine Nicola Prado MD [address] [place] [address] [place] [address] 11/30/2022 Office Visit Urology Denny Armando MD [address] [place] [address] [place] [phone] 12/20/2022 Office Visit Dermatology Meron Aragon PA-C [address] [place] [address] [place] [address] 01/24/2023 Office Visit Rheumatology Ashley Mancilla PA-C 06/02/2023 Nurse Only Ancillary Neeraj, Nurse Annual Wellness [address] [place] [address] [place] [address] Scheduled Procedures Name Priority Associated Diagnoses Date/Ti me ESOPHAGOGASTRODUODENOSCOPY ( EGD), FLEXIBLE, TRANSORAL, DIAGNOSTIC Recall Henning esophagus COLONOSCOPY FLEXIBLE PROXIMAL DIAGNOSTIC Recall History of colon polyps Scheduled Referrals Name Type Priority Associated Diagnoses Orde r Schedule CARDIAC REHAB REFERRAL OP Referral Within 10 days (routine) Aortocoronary bypass status Ordered: 09/01/2022 Health Maintenance Due Date Last Done Comments [...] encounter Medical Devices Implanted Type Area Manager Clinical Informatics Device Identifier Shelf Expiration Date Model / Serial / Lot Lei Agrawal 6 [id number] - [id number] Implanted:Qty: 6 on 07/10/2008 at OR [facility] [place] N/A: Chest DO NOT USE 08/14/2012 [id number] / / [id number] documented as of this encounter Visit Diagnoses Diagnosis Aortocoronary bypass status- Primary Postsurgical aortocoronary bypass status documented in this encounter Advance Directives Documents on File Type Date Recorded Patient Pilot Boat Captain Expl anation Power of Transition Program Manager 06/26/2019 POWER OF A TTORNEY Advance [...] the patient have Health Care Power of Transition Program Manager? No Code Status History Code Status [...] patient or by statute hierarchy) Care Teams Hopper Attendant Relationship Specialty Start Date End Date Nicola Prado MD [address] [place] [address] [place] [phone] PCP - General Family Medicine 06/19/21 documented as of this encounter
--- OUTSIDE RECORDS SUMMARY | 2023-02-03 20:37 | External Medical Summary ---
Author Name Unknown Address Unknown Organization K01:[facility] - [address] [place] [address] Laboratory Report Ordering Provider Test Date Status ENZO ADAMS 09/03/2022 12:06:23 Final Observation Date Value Abnormality Reference (Units ) Status Ferritin 09/03/2022 12:06:23 216 30-400 (ng /mL) Final Performing Location [facility] - [address] [place] [address]
--- OUTSIDE RECORDS SUMMARY | 2023-02-03 20:37 | External Medical Summary ---
Author Name Unknown Address Unknown Organization [id number]:[facility]ATORY [facility] [place] - [facility] [address] [facility] [address] Laboratory Report Ordering Provider Test Date Status MIKY PARISH 09/03/2022 12:06:23 Final Observation Date Value Abnormality Reference (Units ) Status WBC, Total 09/03/2022 12:06:23 12.36 Above high normal 4.00-10.80 (K/uL) Final RBC 09/03/2022 12:06:23 3.97 4.50-5.25 (M/uL) Final Hemoglobin 09/03/2022 12:06:23 12.3 Below low normal 14.0-16.8 (g/dL) Final HCT 09/03/2022 12:06:23 39.0 Below low normal 40.0-48.4 (%) Final MCV 09/03/2022 12:06:23 98.2 82.0-99.5 (fL) Final MCH 09/03/2022 12:06:23 31.0 27.0-34.0 (pg) Final MCHC 09/03/2022 12:06:23 31.5 32.0-36.0 (g/dL) Final RDW 09/03/2022 12:06:23 14.6 11.5-15.5 (%) Final Platelets 09/03/2022 12:06:23 224 140-400 (K/uL) Final MPV 09/03/2022 12:06:23 10.1 6.6-11.1 (fL) Final Nucleated erythrocytes/100 leukocytes [Ratio] in Blood by Automated count 09/03/2022 12:06:23 0 <=0 (/100 WBCs) Final Performing Location [facility] [place] - [address] [facility] [address]
--- OUTSIDE RECORDS SUMMARY | 2023-02-03 20:37 | External Medical Summary ---
Author Name Unknown Address Unknown Organization K01:[facility] [place] [address] [place] [address] Laboratory Report Ordering Provider Test Date Status ENZO ADAMS 09/03/2022 12:06:23 Final Observation Date Value Abnormality Reference (Units ) Status Vitamin B12 09/03/2022 12:06:23 117 [id number] (pg/mL) Final Performing Location [facility] - [address] [place] [address]
--- OUTSIDE RECORDS SUMMARY | 2023-02-03 20:37 | External Medical Summary | Summary of Care ---
Author Name Unknown Organization [facility] Address [address] [place] [address] Phone [phone] Care Team Providers Care Retail And Promotions Coordinator Name Role Phone Nicola Prado MD Primary Care Provide r Reason for Visit * Reason Comments Follow Up SNOWevelynes , 6 mo nt follow up Encounter Details Date Type Department Care Team Description 09/03/2022 Office Visit Gastroenterology [address] [place] [address] Marielena Hall CRNP [address] [place] [address] Anemia, unspecified type*; AVM (arteriovenous malformation); Stubbs's esophagus without dysplasia Allergies Active Allergy Reactions Severity Noted Date [...] depressive disorder without prior episode ([facility]) Take 1 tablet by mouth daily [...] 6 06/26/2021 Active Vitamin D3 1.25 MG (90546 UT) Oral Capsule Take 1 Capsule by [...] or chew 40 Tablet 2 12/17/2021 Active [facility] Ultra[facility] LancetsIndications: Type 2 diabetes mellitus with [...] than 8.0% ([facility]) Inject 110 Units under the skin [...] Tablet 1 05/05/2022 Active Easy Touch Pen Agar 31G X 8 MM (Insulin Pen Needle)Indications: Type 2 diabetes mellitus with hemoglobin A1c goal of less than 8.0% ([facility]),Type 2 diabetes mellitus with stage 4 chronic kidney disease, unspecified whether termite treater insulin use ([facility]) Use [...] Sureclick)Indicatio ns: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 Test performed by Dori ELECTROPLATING TECHNICIAN CPFT Body mass index (BMI) of [...] ischemic attack) 02/04/2016 11/23/2017 Overview: [facility] Anemia of chronic renal failure 07/30/2015 01/27/2017 [...] MANAGEMENT 07/22/2008 0 Overview: Kianna Lyn, RN [phone] Examination following surgery 07/11/2008 Difficult intubation 07/10/2008 02/19/2020 Overview: Patient seen and examined in OR#1.Possible difficult intubation.TM distance about 5 cms.MP 3-4. Will plan FOB electively Due to current situation. EXAMINATION OF PARTICIPANT IN CLINICAL TRIAL-gen omics 07/04/2008 05/30/2009 Overview: Renamed Per Clinical Trials Billing Project. Study Titile: Gen[employer] Markers for Patients with Cardiovascular Disease Project #[id number] PI: Fabienne Martinez MD Please call [phone] with study related questions Chronic coronary artery [...] at goal 07/04/2008 9 GENOMICS CARDIO RESEARCH OTHER*[id number] 200803/23/2016 Overview: Renamed Per Clinical Trials Billing Project. Study Titile: Genomic Markers for Patients with Cardiovascular Disease Project #[id number] PI: Fabienne Martinez MD Please call [phone] with study related questions Kidney disease, chronic, [...] file Travel History Travel Start Travel End [facility] 07/29/2022 08/13/2022 documented as of this encounter Last Filed Vital Signs Vital Sign Reading Time Taken Comments Blood Pressure 122/56 09/03/2022 11:34 AM EDT Pulse 96 09/03/2022 11:34 AM EDT Temperature 36.6 C (97.8 F) 09/03/2022 1 1:34 AM EDT Respiratory Rate - - Oxygen Saturation 93% 09/03/2022 11: 34 AM EDT Inhaled Oxygen Concentration - - Weight 115.9 kg (255 lb 9.6 oz) 023 11:34 AM EDT Height - - Body Mass Index 43.87 07/21/2022 5:13 PM EDT documented in this encounter Progress Notes * FRANCHESKA Collins - 09/03/2022 11:49 AM EDT DATE OF SERVICE: 09/03/22 REFERRING PHYSICIAN: Levy Stout MD CC: Anemia HPI 2020 w/ FRANCHESKA Nguyen: 80 year oldmale seen for iron deficiency anemia. Reports he is having black stools but had been on oral iron. Been receiving weekly IV Venofer per Heme/Onc's direction and prn blood transfusion. B12, FA levels normal. He had multiple GI endoscopies and VCE for this problem. No apparent evidence of source for GI blood loss, previous duodenum bx's w/o celiac dz, no PUD, IBD or malignancy. Suspect anemia multifactorial w his ASA use, CKD, ? PPI use contributing to poor iron absorption- Repeat EGD eval- Avoid NSAIDs, ETOH- Check TTG IgA Ab, IgA, ESR, CRP- Can consider decreasing Omeprazole to 20mg daily instead of BID (previously started for stomach metaplasia, esophagitis,? Stubbs's)- Continue f/u w Heme/Onc Office Visit 12/02/2020 : Had iron transfusion at [facility] last tuesday. Schedule every 2 weeks for the last few years. Feeling well. No abd pain. No nausea. No vomiting. No GERD while on therapy. Bowels moving well. Stool are black. This is chronic for him. Stools move once daily. Formed. Nob[place] red blood in stool. No weight loss. No fever, chills, CP, SOB. Office Visit 03/06/21 w/ FRANCHESKA Nguyen: Hgb between 10-11. He is receiving iron infusion everyother week. He denies abd pain, n/v. Stools formed, black not tarry. No BRBPR Office Visit 04/24/2021 w FRANCHESKA Daniels: Was started on Prednisone for some respiratoryconcerns. This has helped his breathing. About one week ago he starting having abd pain. The pain is midline. Intermittent. Gurgling, cramping. Associated with looser stools. No BM today. Yesterday he had one small volume loose black stool. No BRBPR. No nausea, vomiting. Suggests decreased appetite. No heartburn. Has had dysphagia to both solids and liquids for the last 2/3 weeks. No black or bloody emesis. No fever, chills, CP, SOB. No lightheadedness dizziness. No SOB. Results for MAURISIO BELTRAN ( ) as of 04/24/2021 09:51 Ref. Range 02/24/2021 13:01 03/04/2021 14:05 03/18/2021 14:21 04/01/2021 14:41 04/13/2021 11:04 WBC Latest Ref Range: 4.00 - 10.80 K/uL 7.53 8.97 8.50 10.40 10.72 HGB Latest Ref Range: 14.0 - 16.8 g/dL 11.1 (L) 10.2 (L) 10.4 (L) 10.7 (L) 12.3 (L) HCT Latest Ref Range: 40.0 - 48.4 % 35.3 (L) 32.0 (L) 32.9 (L) 33.4 (L) 39.7 (L) MCV Latest Ref Range: 82.0 - 99.5 fL 97.0 93.8 94.8 94.4 97.1 PLT Latest Ref Range: 140 - 400 K/uL 285 240 223 217 267 06/19/21: Pt had EGD 05/2021, no AVMs noted, + Barretts'. Hgb stable at 11, still receiving iron infusion every 2 weeks. Denies abd pain, n/v, stools black but formed. 10/02/21: Recently had diverticulitis, treated w Augmentin, then developed Cdiff. Just completed 10days course of Vancomycin yesterday. BM 2x a day, forming up. Denies any abd pain, n/v, rectal bleeding. He only took 2 doses of Octreotide so far, and stopped it when he was having hypoglycemia events and found to have Cdiff. 12/04/21: Pt has been getting Octreotide injections. Hgb around 12, dropped to 10 recently. Going to have repeat labs today. His stools are black in color but not tarry nor does he sees any rectal bleeding. No n/v. is on hospice (dementia). 03/05/22: Pt's in November. Lives w son and grandson. He went to [facility] ED last week w hemorrhoid pain. Can't afford the original med prescribed, changed today to Hydrocortisone [place] cream, he needs to pick it up still. He had been receiving iron transfusion in [place]. Hgb stable between 11-12. Stools can be black in color but feels constipated w sometimes abd discomfort and having to strain. He takes stool softeners every other day. 09/03/22: Pt denies any abd pain, n/v. Stools black but solid. He's not on oral iron supplements. He denies any iron transfusion for months now. Also denies any recent admission for anemia. Octreotide injection can be painful sometimes. However he hasn't missed his doses. GI WORKUP: EGD 2020: Two large inlet patches. Short segment Stubbs's. Patchy antral gastritis. AVM, cauterized and Clipped. VCE 2020: AVM Colonoscopy 2020: The examined portion of the ileum was normal. - Medium-sized lipoma in the ascending colon. - One 8 mm polyp in the transverse colon, removed with a cold snare. Resected and retrieved. - Diverticulosis in the entire examined colon. - Non-bleeding internal hemorrhoids Past Medical History: Diagnosis Date (HFpEF) heart failure with preserved ejection fraction (HCC) Acute blood loss anemia 10/29/2020 [facility] transfused Acute exacerbation of chronic obstructive pulmonary disease (COPD) (HCC) 05/11/2018 [facility] Altered mental status 03/31/2017 likely the baclofen [...] moderate (HCC) 10/04/2014 PFT Coronary atherosclerosis of ho-chunk coronary artery 07/04/2008 Admitted [facility] COVID-19 02/24/2021 Dermatophytosis of scalp or bello DM type 2 causing CKD stage 4 ([facility]) DM type 2, goal A1c below [...] disease, chronic, stage III (GFR 30-59 ml/min) ([facility]) 06/2008 Malignant neoplasm of prostate ([facility]) Prostate Mixed dyslipidemia Morbid obesity with BMI of 45.0-49.9, adult ([facility]) Other psoriasis S/P primary angioplasty with coronary stent 09/05/2013 drug eluting stents to 60% RCA, other grafts open except SVG to PDA is occluded Sleep apnea CPAP Sleep apnea, obstructive Symptomatic anemia 10/29/2020 Admitted [facility] and transfused TIA (transient ischemic attack) 02/04/2016 [facility] Tubular adenoma 10/31/2020 Family History Problem Relation Age of Onset Asthma Brother Cancer Grandfather (Maternal) stomach Lung Disorder Father Cancer Aunt (Unspecified) Cancer Uncle (Unspecified) Heart Disorder Brother 46 SD age 46 Heart Disorder Mother mi age 82 Diabetes Son 35 IDDM Mental Disorder Mother Received electric shcok in the [place] Blood Disorder Son "Thick Blood" Arthritis Son Past Surgical History: Procedure Laterality Date BRACHYTHERAPY SEED,IRIDIUM 192 01/2004 BYPASS GRAFT ANGIOGRAPHY W/LEFT HEART CATH 09/05/2013 BYPASS GRAFT ANGIOGRAPHY W/LEFT HEART CATH performed by Aleisha Abraham MD at [facility]S [facility] BYPASS GRAFT ANGIOGRAPHY W/RIGHT+LEFT CATH Right 08/25/2016 BYPASS GRAFT ANGIOGRAPHY W/RIGHT+LEFT CATH performed by Eliseo José MD at [facility] CABG, ARTERIAL, SINGLE 07/10/2008 CORONARY ARTERY BYPASS GRAFT USING ARTERY 1 GRAFT performed by BUDDY VILCHIS at OR [facility] CABG, ARTERY-VEIN, TWO 07/10/2008 CORONARY ARTERY BYPASS GRAFT ARTERIAL AND VENOUS 2 GRAFTS performed by BUDDY VILCHIS at OR [facility] CARDIAC CATH-CARDIOLOGY ONLY [...] adenomatous & hyperplastic polyps, repeat 3 yrs/[facility] COLONOSCOPY, DIAGNOSTIC (RECTUM) 04/20/2018 hyperplastic polyp, repeat 5 yrs/[facility] COLONOSCOPY, DIAGNOSTIC (RECTUM) 10/31/2020 adenomatous polyp, diverticulosis, repeat 3 yrs / [facility] COLONOSCOPY, REMOVE LESION, W/SNARE 06/25/2015 4 mm polyp ascending, 2 polyps in rectum, diverticulosis COMBINED RT & LEFT HEART CATHETERS 07/04/2008 RIGHT AND RETROGRADE LEFT HEART CATH performed by CANDELARIO VINES at [facility] COMBINED RT & LEFT HEART CATHETERS 01/01/2010 RIGHT AND RETROGRADE LEFT HEART CATH performed by KAREL OBANDO at [facility] CT HEAD/BRAIN WO [...] by Jose Eduardo Valadez MD at ENDOSCOPY [facility] EGD, FLEXIBLE, DIAGNOSTIC 06/25/2015 esophagitis/[facility] EGD, FLEXIBLE, DIAGNOSTIC N/A 11/14/2020 two large inlet patches/patchey antral gastritis/biopsies show Barretts/EGD EGD, FLEXIBLE, DIAGNOSTIC 05/22/2021 Barretts, repeat 3 yrs / [facility] EGD, FLEXIBLE, DIAGNOSTIC 06/26/2021 normal / INPT [facility] EGD, FLEXIBLE, DIAGNOSTIC 09/09/2021 mildly inflammed mucosa on bx / [facility] EGD, FLEXIBLE, DIAGNOSTIC 10/30/2020 single bleeding angiodysplastic lesion in the jejunum / INPT [facility] EGD, FLEXIBLE, W/BIOPSY 11/14/2006 mild chronic inflammation EGD, FLEXIBLE, W/BIOPSY 04/25/2008 stomach gastritis, stubbs's esophagus, recommend f/u in 2 years EGD, FLEXIBLE, W/BIOPSY 06/25/2015 stomach and duodenum normal ENDO,VIDEO ASSIST HARVEST DILLON 07/10/2008 ENDOSCOPY VIDEO ASSISTED HARVEST VEIN performed by BUDDY VILCHIS at OR [facility] FLUORO SWALLOWING FUNCTION W VIDEO CINE 11/14/2017 moderate esophageal dysmotility, no mass or stricture FLUORO UPPER GI W AIR WO KUB 06/03/2014 normal HC VENOUS DUPLEX COMPLETE BILATERAL LOWER EXTREMITY Bilateral 11/14/2017 no DVT INSERT HEART ELECTRODE, DUAL CHAMBR 06/11/2020 [facility] INSERT IA PERCUT DEVICE 07/10/2008 INSERT INTRA AORTIC BALLOON ASSIST DEVICE PERCUTANEOUS performed by FABIENNE MARTINEZ at [facility] LEFT HEART CATHETERIZATION [...] performed by Annelise Diaz MD at OR [facility] SMALL BOWEL ENDOSCOPY W/BX 07/03/2010 await [...] nonbleeding AVM in proximal intestine Social History Tobacco Use Smoking status: Former Packs/day: 2.00 Years: 10.00 Pack years: 20.00 Types: Cigarettes Quit date: 01/27/1998 Years since quittin.6 Smokeless tobacco: Never Vaping Use Vaping Use: Never used Substance Use Topics Alcohol use: No Drug use: No Review of patient's allergies indicates: Allergen Reactions [...] 30 Tablet 6 Vitamin D3 1.25 MG (34754 UT) Oral Capsule Take 1 Capsule by [...] minutes 25 Tablet 1 Easy Touch Pen Agar 31G X 8 MM (Insulin Pen Needle) [...] mg 2.5 mg NebulizerPRN Al Mccrary PA-C REVIEW OF SYSTEMS: All other findings negative except as noted in HPI. EXAM: Filed Vitals: 09/03/22 1134 BP: 122/56 Pulse: 96 Temp: 36.6 C (97.8 F) SpO2: 93% Weight: 115.9 kg (255 lb 9.6 oz) GENERAL: Well developed and well nourished in no acute distress. SKIN: No rashes, ulcers, jaundice HEENT: Normocephalic, sclera clear NECK: Supple, trachea midline, no JVDs LUNGS: Clear to auscultation bilaterally, no respiratory distress or accessory muscles used. HEART: Regular rate & rhythm, no murmurs and no gallops. ABDOMEN: Normal bowel sounds, soft and nontender, no masses or hepatosplenomegaly. EXTREMITIES: No palmar erythema, no ankle edema NEURO: No lateralizing findings. Sensory/Motor grossly normal. ASSESSMENT AND PLAN: 82 year old male seen for iron deficiency anemia, hx of AVMs and endoscopic treatment, diverticulitis (Cdiff, treated). Started Octreotide injection for AVM bleed, and hasn't required blood transfusion since 09/2021 - Continue Octreotide 50mcg inj BID - Continue IV iron infusions per Heme/Onc's direction, monitor blood count. - Small bowel enteroscopy scheduled on 10/23/2021 -> no signs of GI bleeding - Continue Omeprazole 20mg BID - Repeat Stubbs's surveillance EGD in 2024; repeat colonoscopy in 2023. - F/U w Urology for hx of prostate ca, rising PSA - ED for emergencies - Please call with any questions or concerns I spent a total of 30 minutes on the date of service in review of patient's record, and previously obtained information in person and appropriate medical visit, discussion and education of plan, withpatient and/or caregiver, placing orders for tests/referral/procedures as medically necessary and documentation of pertinent clinical information in patient's medical records for their visit today. RETURN TO CLINIC: 6 months or sooner [facility] documented in this encounter Nursing Notes * Maddie Richardson LPN - 09/03/2022 11:36 AM EDT Patient identified by name and date of . Chief Complaint Patient presents with Follow Up SNOW, barretts , 6 month follow up Pt having issues with his octreotide causing pain to his injection sites, so much pain that he doesn't want to inject his next dose most times. documented in this encounter Plan of Treatment Upcoming Encounters Date Type Specialty Care Team Description 09/21/2022 Office Visit Cardiology Blair Hannah PA-C [address] [place] [address] 10/07/2022 Cardiac Studies [facility]iology [facility] [address] [place] [address] 10/11/2022 Office Visit Sleep Disorders Eulalia Milligan DO [address] [place] [address] 10/12/2022 Office Visit Nephrology Quin Narvaez MD [address] [place] [address] 10/25/2022 Office Visit Family Medicine Nicola Prado MD [address] [place] [address] [place] [address] 11/30/2022 Office Visit Urology Denny Armando MD [address] [place] [address] [place] [id number] 12/20/2022 Office Visit Dermatology Meron Aragon PA-C [address] [place] [address] [place] [address] 01/24/2023 Office Visit Rheumatology Ashley Mancilla PA-C 03/04/2023 Office Visit Gastroenterology Marielena Hall CRNP [address] [place] [address] 06/02/2023 Nurse Only Ancillary [place], Nurse Annual Wellness [address] [place] [address] [place] [address] Pending Results Name Type Priority Associated Diagnoses Date /Time IRON SCREEN, INCLUDING TIBC Lab Routine Anemia, unspecified type 09/03/2022 12:06 PM EDT FERRITIN Lab Routine Anemia, unspecified type 09/03/2022 12:06 PM EDT VITAMIN B12 Lab Routine Anemia, unspecified type 09/03/2022 12:06 PM EDT FOLIC ACID Lab Routine Anemia, unspecified type 09/03/2022 12:06 PM EDT Scheduled Procedures Name [...] this encounter Medical Devices Implanted Type Area Mortgage Collector Device Identifier Shelf Expiration Date Model / Serial / Lot Sut Steel 6 [id number] - [id number] Implanted:Qty: 6 on 07/10/2008 at OR [facility] N/A: Chest DO NOT USE 08/14/2012 [id number] / / [id number] documented as of this encounter Visit Diagnoses Diagnosis Anemia, unspecified type- Primary 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 No Code Status History Code Status Date Activated Date Inactivated Comments Full Code 07/10/2008 6:37 PM 07/21/2008 4:52 PM This o rder reflects the patients wishes and were consensually agreed upon. Full Code 07/04/2008 2:18 PM 07/10/2008 6:30 PM Healthcare Agents on File Name Relationship [facility] Shane Beltran Adult Child Health Care Repr esentative (appointed verbally by patient or by statute hierarchy) Care Teams Retail And Promotions Coordinator Relationship Specialty Start Date End Date Nicola Prado MD [address] [place] [address] [place] [id number] PCP - General Family Medicine 06/19/21 documented as of this encounter
--- OUTSIDE RECORDS SUMMARY | 2023-02-03 20:37 | External Medical Summary ---
Author Name Unknown Address Unknown Organization K01:[facility] - [address] [place] [address] Laboratory Report Ordering Provider Test Date Status ENZO ADAMS 09/03/2022 12:06:23 Final Observation Date Value Abnormality Reference (Units ) Status Folic Acid 09/03/2022 12:06:23 >20.0 >4.5 (ng/ mL) Final Performing Location [facility] - [address] [place] [address]
--- OUTSIDE RECORDS SUMMARY | 2023-02-03 20:37 | External Medical Summary ---
Author Name Unknown Address Unknown Organization K01:[facility] - [address] [place] [address] Laboratory Report Ordering Provider Test Date Status ENZO ADAMS 09/03/2022 12:06:23 Final Observation Date Value Abnormality Reference (Units ) Status Iron 09/03/2022 12:06:23 40 Below low normal 45-176 (ug/dL) Final Iron-binding capacity 09/03/2022 12:06:23 187 Below low normal 250-425 (ug/dL) Final Transferrin Sat % 09/03/2022 12:06:23 21 15-55 (%) Final Performing Location LAB[facility]ATORY [facility] - [address] [place] [address]
--- OUTSIDE RECORDS SUMMARY | 2023-02-03 20:37 | External Medical Summary | Summary of Care ---
Author Name Unknown Organization [facility] Address [address] [place] [address] Phone [phone] Care Team Providers Care Ultrasound Coordinator Name Role Phone Nicola Prado MD Primary Care Provide r Reason for Visit * Reason Onset Date Comments Medication Refill 08/30/2022 Encounter Details Date Type Department Care Team Description 08/30/2022 Refill Gastroenterology, [facility] [address] [place] [address] Marielena Giraldo CRNP [address] [place] [address] Allergies Active Allergy Reactions Severity Noted Date Comments Hydromorphone High 09/20/2021 Other reaction(s): Nausea Other reaction(s): Nausea 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 30 Tablet 1 2 Active Betamethasone Dipropionate 0.05 % External [...] 6 2 Active Vitamin D3 1.25 MG (96377 UT) Oral Capsule Take 1 Capsule by mouth in the morning. 0 Active CPAP every night at bedtime . 2 Liters 0 Active Baclofen 20 MG Oral TabletIndication s:Muscle cramps one pill three times a day as needed for tight muscles 30 Tablet 0 2 Active Diclofenac Sodium 1 % External Gel (Voltaren) Apply topically to affected area 2 g in the morning AND 2 g before bedtime. Apply to affected area of lower back up to twice a day as needed for pain. Wash hands after.. 100 g 1 2 Active Additional Information Patient not taking.Reported on 08/11/2022 Simethicone 80 MG Oral Tablet Chewable (Mylicon)Indicat ions:Gastroenter itis Take by mouth 1 Tablet as needed in the morning AND 1 Tablet as needed at noon AND 1 Tablet as needed in the evening AND 1 Tablet as needed before bedtime for Gas. 100 Tablet 0 2 Active Triamcinolone Acetonide 0.1 % External Ointment (Aristocort)Kimberly cations:Plaque psoriasis Apply to rash on trunk/arms/legs 2x daily (when thinner and less noticeable and less bothersome) until resolved, then when flaring 454 g 1 2 Active Allopurinol 300 MG Oral Tablet (Zyloprim) Take 1 Tablet by mouth daily. 90 Tablet 3 2 Active guaiFENesin ER 600 MG Oral Tablet Extended Release 12 Hour (Mucinex)Indicat ions:COPD exacerbation (HCC),Chronic cough Take by mouth 1 Tablet 2 times a day as needed for Congestion. Take with plenty of water. 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 DXe11.9 600 Each 3 3 Active Albuterol Sulfate HFA 108 (90 Base) MCG/ACT Inhalation Aerosol SolutionIndicati ons:COPD exacerbation ([facility]),Chronic cough Inhale by mouth 2 Puffs every 4 hours as needed for Cough or Shortness of Breath. Reports doesn't help 18 g 2 3 Active Additional Information Patient not taking.Reported on 08/11/2022 Victoza 18 MG/3ML Subcutaneous Solution Pen-injector (Liraglutide)Ind [...] a week. 4 mL 1 3 Active Additional Information Patient not taking.Reported on 08/11/2022 Syringe Luer Lock 25G X 5/8" 3 ML Use as directed twice daily for octreotide injections. 60 Each 1 3 08/31/19 23 Discontinued(Ref ill) Syringe/Needle (Disp) 25G X 5/8" 3 ML USE DIRECTED TWICE DAILY FOR OCTREOTIDE INJECTIONS 60 Each 1 3 09/02/19 23 Discontinued Octreotide Acetate 50 MCG/ML Subcutaneous Solution Prefilled Syringe INJECT 50 MCG (1 SYRINGE) UNDER THE SKIN IN THE MORNING AND 50 MCG (1 SYRINGE) BEFORE BEDTIME. 180 mL 3 2 08/31/19 23 Discontinued(Ref ill) Syringe Luer Lock 25G X 5/8" 3 ML Use as directed twice daily for octreotide injections. 60 Each 1 3 08/31/19 23 Discontinued(Med ication/Dose Changed) Octreotide Acetate 50 MCG/ML Subcutaneous Solution Prefilled Syringe Inject 50mcg under skin in the morning and before bedtime 180 mL 3 3 08/31/19 23 Discontinued(Ref ill) Octreotide Acetate 50 MCG/ML Injection Solution (Sandostatin) Octreotide 50 mcg vials. Inject 50mcg twice daily under skin Syringes 27 gauge 1/2inch 180 mL 1 3 09/03/19 23 Discontinued(Med ication List Clean Up) Tuberculin Syringe 27G X 1/2" 1 ML Use with octreotide injections 180 Each 1 3 09/03/19 23 Discontinued(Med ication List Clean Up) Hospital, Clinic, or Other Facility Administered Medication [...] as of this encounter (statuses as of 09/02/2022) Active Problems Problem Noted Date Hypertensive heart [...] urinary tr act symptoms 07/13/2001 Atherosclerosis of [place] co ronary artery of [place] heart without angina pectoris Morbid obesity with BMI of 45.0-49.9, ad ult documented as of this encounter (statuses as of 09/02/2022) Resolved Problems Problem Noted Date Resolved Date [...] use aero chamber. Test performed by Dori [employer]IV[employer] CPFT Body mass index (BMI) of 45.0 [...] MANAGEMENT 07/22/2008 0 Overview: Kianna Lyn RN [phone] Examination following surgery 07/11/2008 Difficult intubation 07/10/2008 02/19/2020 Overview: Patient seen and examined in OR#1.Possible difficult intubation.TM distance about 5 cms.MP 3-4. Will plan FOB electively Due to current situation. EXAMINATION OF PARTICIPANT IN CLINICAL TRIAL-gen omics 07/04/2008 05/30/2009 Overview: Renamed Per Clinical Trials Billing Project. Study Titile: Genomic Markers for Patients with Cardiovascular Disease Project #[id number] PI: Miriam Roque MD Please call [phone] with study related questions Chronic coronary artery [...] at goal 07/04/2008 9 GENOMICS CARDIO RESEARCH OTHER*[id number] 200803/23/2016 Overview: Renamed Per Clinical Trials Billing Project. Study Titile: Genomic Markers for Patients with Cardiovascular Disease Project #[id number] PI: Miriam Roque MD Please call [phone] with study related questions Kidney disease, chronic, [...] as of this encounter (statuses as of 09/02/2022) Immunizations Name Administration Dates Next Due COVID-19 mRNA, LNP-s, No Pre serve, 2-Dose Series ([employer] (QEEP)) 12/09/2020,05/09/2020,04/11/2020 COVID-19, LNP-s, No Preserve , Juan [...] Miscellaneous Notes * Telephone Encounter - Adina Zamudio RN - 09/02/2022 12:01 PM EDT Canceled normal order as it was a duplicate. Pharmacy placed order in chart already when verbal wasgiven. * Addendum Note - Adina Zamudio RN - 09/02/2022 11:59 AM EDTAddended by: ADINA ZAMUDIO on: 09/02/2022 11:59 AM Modules accepted: Orders * Telephone Encounter - FRANCHESKA Collins - 09/01/2022 1:40 PM EDTSigned Prescriptions: Disp Refills Octreotide Acetate 50 MCG/ML Injection Cheryl*180 mL 1 Sig: Octreotide 50 mcg vials. Inject 50mcg twice daily under skin Syringes 27 gauge 1/2inchAuthorizing Provider: MARIELENA GIRALDO Tuberculin Syringe 27G X 1/2" 1ML 180 Ea*1 Sig: Use with octreotide injectionsAuthorizing Provider: MARIELENA GIRALDO * Telephone Encounter - FRANCHESKA Collins - 09/01/2022 1:40 PM EDTSigned Prescriptions: Disp Refills Octreotide Acetate 50 MCG/ML Injection Cheryl*180 mL 1 Sig: Octreotide 50 mcg vials. Inject 50mcg twice daily under skin Syringes 27 gauge 1/2inchAuthorizing Provider: MARIELENA GIRALDO Tuberculin Syringe 27G X 1/2" 1ML 180 Ea*1 Sig: Use with octreotide injectionsAuthorizing Provider: MARIELENA GIRALDO * Addendum Note - Adina Zamudio RN - 09/01/2022 1:39 PM EDTAddended by: ADINA ZAMUDIO on: 09/01/2022 01:39 PM Modules accepted: Orders * Telephone Encounter - Adina Zamudio RN - 09/01/2022 12:59 PM EDT Attempted to call [facility] specialty at this time. Call was disconnected when I was being transferred to a pharmacist. Called back and requested a pharmacist. Spoke Courtney the pharmacist with Marielena present as she is in the office today. Verbal given for syringes and Octreotide 50 MCG vials BID. Reports they have been ordering the 27 gauge 1/2 syringes for this injection most recently. Called Spoke with the pt Maurisio. Reports he has done the vials of the Octreotide before. Understands how to do home injections. Asked him to call back if he has any issues or concerns marielena please sign for reviewing purposes. * Telephone Encounter - Adina Zamudio RN - 08/31/2022 3:39 PM EDT Spoke to marielena she does not want 100mcg all in one dose. Would like it to be split. Canceled pended script. [facility] specialty are you able to pens the vials/ syringes for with it you have in stock? * Telephone Encounter - Adina Zamudio RN - 08/31/2022 3:35 PM EDTPending Prescriptions: Disp Refills Octreotide Acetate 100 MCG/ML Subcutaneous*30 mL 0 Sig: Inject 100 mcg under the skin in the morning. * Telephone Encounter - Adina Zamudio RN - 08/31/2022 3:34 PM EDT marielena please review and sign if appropriate. * Telephone Encounter - Romina Luu [facility] - 08/31/2022 3:26 PM EDTPending Prescriptions: Disp Refills Octreotide Acetate 100 MCG/ML Subcutaneous*30 mL 0 Sig: Inject 100 mcg under the skin in the morning. * Addendum Note - Adina Zamudio RN - 08/31/2022 2:45 PM EDTAddended by: ADINA ZAMUDIO on: 08/31/2022 02:45 PM Modules accepted: Orders * Telephone Encounter - Adina Zamudio RN - 08/31/2022 2:40 PM EDT [facility] are you able to verify pended script is what you have in stock for the 100mcg prefilled syringe.? Are you able to send a 30 day or short script of this ?or does it still need to be a 90 day prescription? I pended it for once a day we will need to verify with marielena this is the dosing she wants (once daily) once you are able to verify this is what you have in stock and what amount is needed to be ordered for it to ship. * Telephone Encounter - FRANCHESKA Collins - 08/31/2022 2:29 PM EDT That's fine but pt needs to be made aware of the different dose (100mcg vs 50mcg which he is on) FRANCHESKA Angulo * Telephone Encounter - Adina Zamudio RN - 08/31/2022 1:28 PM EDT Marielena would this be an appropriate alternative for in the meantime? I am not sure of any specialtypharmacies that have it. It may also be faster in the meantime if appropriate vs registering for a new specialty pharmacy. * Telephone Encounter - Adina Zamudio RN - 08/30/2022 12:45 PM EDT [facility] are you able to transfer to another specialty pharmacy? marielena THRASHER. We can try and see if another specialty pharmacy has it. No local pharm. Available to do this as it has to come from a specialty. * Addendum Note - Adina Zamudio RN - 08/30/2022 11:47 AM EDTAddended by: ADINA ZAMUDIO on: 08/30/2022 11:47 AM Modules accepted: Orders * Telephone Encounter - Adina Zamudio RN - 08/30/2022 11:26 AM EDT I called and spoke to the patient. Has one injection left of his prefilled syringes of Octreotide Acetate. Spoke with [facility]. This is a specialty med and has to come from a specialty pharmacy. They can not fill. Spoke with marielena would like him not to wait a week for his injection if at all possible. Reached out to our gastro pharmacist to see if he may be aware of a solution. No solution identified. Suggested possibly transferring the prescription to another speciality pharmacy. * Addendum Note - FRANCHESKA Collins - 08/30/2022 10:51 AM EDTAddended by: MARIELENA GIRALDO on: 08/30/2022 10:51 AM Modules accepted: Orders * Telephone Encounter - FRANCHESKA Collins - 08/30/2022 10:51 AM EDT Rx sent to [facility]. Nurses - can you pls follow up with pt & pharmacy FRANCHESKA Angulo * Telephone Encounter - FRANCHESKA Collins - 08/30/2022 10:07 AM EDT Any local pharmacy which may have med and syringes in stock that I can send Rx to? FRANCHESKA Angulo * Telephone Encounter - Manda Porras [facility] - 08/30/2022 9:14 AM EDT Maurisio Holley was scheduled to have his octreotide syringes ship out today, however syringes are currently on backorder. Syringes are anticipated (but not guaranteed) to return to stock on 09/10/22. Octreotidevials are also on backorder with no anticipated return to stock date. Please advise. Thank you! Courtney Porras, Pharm.D. Clinical Specialty Pharmacist [facility] 08/30/2022, 9:21 AM documented in this encounter Plan of Treatment Upcoming Encounters Date Type Specialty Care Team Description 09/03/2022 Office Visit Pharmacy [address] [place] [address] 09/03/2022 Office Visit Gastroenterology Marielena Giraldo CRNP [address] [place] [address] 09/21/2022 Office Visit Cardiology Blair Hannah PA-C [address] [place] [address] 10/07/[address] [facility] [address] [place] [address] 10/11/2022 Office Visit Sleep Disorders Eulalia Milligan DO [address] [place] [address] 10/12/2022 Office Visit Nephrology Quin Narvaez MD [address] [facility] [place] [address] 10/25/2022 Office Visit Family Medicine Nicola Prado MD [address] [place] [address] [place] [address] 11/30/2022 Office Visit Urology Denny Armando MD [address] [place] [address] 12/20/2022 Office Visit Dermatology Meron Aragon PA-C [address] [place] [address] [place] [address] 01/24/2023 Office Visit Rheumatology Ashley Mancilla PA-C 06/02/2023 Nurse Only Ancillary Neeraj Nurse [facility] [address] [place] [address] [place] [address] Scheduled Procedures Name Priority Associated Diagnoses Date/Ti [...] this encounter Medical Devices Implanted Type Area Change Management Administrator Device Identifier Shelf Expiration Date Model / Serial / Lot Sut Steel 6 [id number] - [id number] Implanted:Qty: 6 on 07/10/2008 at OR [facility] N/A: Chest DO NOT USE 08/14/2012 [id number] / / [id number] documented as of this encounter Additional Health Concerns Infection Onset Date Last Indicated Resolved Time COVID-19 Immunosuppressed 05/31/2022 05/31/2022 12:19 AM EDT documented as of this encounter Advance Directives Documents on File Type Date Recorded Patient Potline Monitor Expl anation Power of Environment Coordinator 06/26/2019 POWER OF A TTORNEY Advance Directives [...] the patient have Health Care Power of Environment Coordinator? No Code Status History Code Status Date [...] patient or by statute hierarchy) Care Teams Ultrasound Coordinator Relationship Specialty Start Date End Date Nicola Prado MD [address] [place] [address] [place] [phone] PCP - General Family Medicine 06/19/21 documented as of this encounter
--- OUTSIDE RECORDS SUMMARY | 2023-02-03 20:37 | External Medical Summary | Summary of Care ---
Author Name Unknown Organization [facility] Address [address] [place] [address] Phone [phone] Care Team Providers Care Wound Care Nurse Name Role Phone Nicola Prado MD Primary Care Provide r Reason for Visit * Reason Onset Date Comments Medication Refill 08/30/2022 Encounter Details Date Type Department Care Team Description 08/30/2022 Refill Gastroenterology, [facility] [address] [place] [address] Marielena Giraldo CRNP [address] [place] [address] Allergies Active Allergy Reactions Severity Noted Date [...] 6 2 Active Vitamin D3 1.25 MG (34603 UT) Oral Capsule Take 1 Capsule by [...] Tablet 1 3 Active Easy Touch Pen [place] 31G X 8 MM (Insulin Pen Needle)Indicatio ns:Type 2 diabetes mellitus with hemoglobin A1c goal of less than 8.0% ([facility]),Type 2 diabetes mellitus with stage 4 chronic kidney disease, unspecified 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 DXe11.9 600 Each 3 3 Active Albuterol Sulfate HFA 108 (90 Base) MCG/ACT Inhalation Aerosol SolutionIndicati ons:COPD exacerbation ([facility]),Chronic cough Inhale by [...] mL 3 3 08/31/19 23 Discontinued(Ref ill) Hospital, Clinic, or Other [...] urinary tr act symptoms 07/13/2001 Atherosclerosis of [place] co ronary artery of [place] heart without angina pectoris Morbid obesity with [...] use aero chamber. Test performed by Dori BACCARAT MANAGER CPFT Body mass index (BMI) of [...] MANAGEMENT 07/22/2008 0 Overview: Kianna Lyn, RN [phone] Examination following surgery 07/11/2008 Difficult intubation 07/10/2008 02/19/2020 Overview: Patient seen and examined in OR#1.Possible difficult intubation.TM distance about 5 cms.MP 3-4. Will plan FOB electively Due to current situation. EXAMINATION OF PARTICIPANT IN CLINICAL TRIAL-gen omics 07/04/2008 05/30/2009 Overview: Renamed Per Clinical Trials Billing Project. Study Titile: Genomic Markers for Patients with Cardiovascular Disease Project #[id number] PI: Miriam Roque MD Please call [phone] with study related questions Chronic coronary artery [...] at goal 07/04/2008 9 GENOMICS CARDIO RESEARCH OTHER*[id number] 200803/23/2016 Overview: Renamed Per Clinical Trials Billing Project. Study Titile: Genomic Markers for Patients with Cardiovascular Disease Project #[id number] PI: Miriam Roque MD Please call [phone] with study related questions Kidney disease, chronic, [...] mRNA, LNP-s, No Pre serve, 2-Dose Series ([email or web address]) 12/09/2020,05/09/2020,04/11/2020 COVID-19, LNP-s, No Preserve , Juan [...] encounter Miscellaneous Notes * Addendum Note - Adina Zamudio RN - 09/01/2022 1:39 PM EDTAddended by: ADINA ZAMUDIO on: 09/01/2022 01:39 PM Modules accepted: Orders * Telephone Encounter - Adina Zamudio RN - 09/01/2022 12:59 PM EDT Attempted to call [facility] specialty at this time. Call was disconnected [...] it to be split. [facility] are you able to pens the [...] appropriate. * Telephone Encounter - Romina Luu [facility] - 08/31/2022 3:26 PM EDTPending Prescriptions: Disp Refills Octreotide Acetate 100 MCG/ML Subcutaneous*30 mL 0 Sig: Inject 100 mcg under the skin in the morning. * Addendum Note - Adina Zamudio RN - 08/31/2022 2:45 PM EDTAddended by: ADINA ZAMUDIO on: 08/31/2022 02:45 PM Modules accepted: Orders * Telephone Encounter - Adina Zamudio RN - 08/31/2022 2:40 PM EDT [place] [facility] are you able to verify pended [...] (100mcg vs 50mcg which he is on) Marielena FRANCHESKA Fierro * Telephone Encounter - Adina Zamudio RN [...] prefilled syringes of Octreotide Acetate. Spoke with milagro. This is a specialty med and has [...] 08/30/2022 10:51 AM EDT Rx sent to [place]. Nurses - can you pls follow up with pt & pharmacy FRANCHESKA Angulo * Telephone Encounter - FRANCHESKA Collins - 08/30/2022 10:07 AM EDT Any local pharmacy which may have med and syringes in stock that I can send Rx to? FRANCHESKA Angulo * Telephone Encounter - Manda Porras RPh - 08/30/2022 9:14 AM EDT Marizoltrudy Maurisio was scheduled to have his octreotide syringes ship out today, however syringes are currently on backorder. Syringes are anticipated (but not guaranteed) to return to stock on 09/10/22. Octreotidevials are also on backorder with no anticipated return to stock date. Please advise. Thank you! Courtney Porras, Pharm.D. Clinical Specialty Pharmacist [facility] 08/30/2022, 9:21 AM documented in this encounter Plan of Treatment Upcoming Encounters Date Type Specialty Care Team Description 09/03/2022 Office Visit [address] [place] [address] 09/03/2022 Office Visit Gastroenterology Marielena Giraldo CRNP [address] [place] [address] 09/21/2022 Office Visit Cardiology Blair Hannah PA-C [address] [place] [address] 10/07/2022 Cardiac Studies Cardiology Keith Pickard [facility] [address] [place] [address] 10/11/2022 Office Visit Sleep Disorders Eulalia Milligan DO [address] [place] [address] 10/12/2022 Office Visit Nephrology Quin Narvaez MD [address] [facility] [place] [address] 10/25/2022 Office Visit Family Medicine Nicola Prado MD [address] [place] [address] [place] [address] 11/30/2022 Office Visit Urology Denny Armando MD [address] [facility] [address] [place] [address] 12/20/2022 Office Visit Dermatology Meron Aragon PA-C [address] [place] [address] [place] [address] 01/24/2023 Office Visit Rheumatology Ashley Mancilla PA-C 06/02/2023 Nurse Only Ancillary Nurse Neeraj [facility] [address] [place] [address] [place] [address] Scheduled Procedures Name Priority Associated Diagnoses Date/Ti [...] this encounter Medical Devices Implanted Type Area Mixing Machine Feeder Device Identifier Shelf Expiration Date Model / Serial / Lot Lei Agrawal 6 [id number] - [id number] Implanted:Qty: 6 on 07/10/2008 at OR [facility] N/A: Chest DO NOT USE 08/14/2012 [id number] / / [id number] documented as of this encounter Additional Health Concerns Infection Onset Date Last Indicated Resolved Time COVID-19 Immunosuppressed 05/31/2022 05/31/2022 12:19 AM EDT documented as of this encounter Advance Directives Documents on File Type Date Recorded Patient Product Safety Tester Expl anation Power of Community Health Planning Director 06/26/2019 POWER OF A TTORNEY Advance [...] patient have Health Care Power of Community Health Planning Director? No Code Status History Code Status [...] patient or by statute hierarchy) Care Teams Wound Care Nurse Relationship Specialty Start Date End Date Nicola Prado MD [address] [place] [address] [place] [address] PCP - General Family Medicine 06/19/21 documented as of this encounter
--- OUTSIDE RECORDS SUMMARY | 2023-02-03 20:37 | External Medical Summary | Summary of Care ---
Author Name Unknown Organization [facility] Address [address] [place] [address] Phone [phone] Care Team Providers Care Grit Removal Operator Name Role Phone Nicola Prado MD Primary Care Provide r Reason for Visit * Reason Onset Date Comments Medication Refill 08/30/2022 Encounter Details Date Type Department Care Team Description 08/30/2022 Refill Gastroenterology, [facility] [address] [place] [address] Marielena Giraldo CRNP [address] [place] [address] Allergies Active Allergy Reactions Severity Noted Date [...] 6 2 Active Vitamin D3 1.25 MG (63999 UT) Oral Capsule Take 1 Capsule by [...] goal of less than 8.0% ([facility]) Inject 110 Units under the skin [...] Tablet 1 3 Active Easy Touch Pen [place] 31G X 8 MM (Insulin Pen Needle)Indicatio ns:Type 2 diabetes mellitus with hemoglobin A1c goal of less than 8.0% ([facility]),Type 2 diabetes mellitus with stage 4 chronic kidney disease, unspecified whether extermination inspector insulin use ([facility]) Use up to six times daily with insulin. DXe11.9 600 Each 3 3 Active Albuterol Sulfate HFA 108 (90 Base) MCG/ACT Inhalation Aerosol SolutionIndicati ons:COPD exacerbation ([facility]),Chronic cough Inhale by mouth 2 Puffs every 4 hours as needed for Cough or Shortness of Breath. Reports doesn't help 18 g 2 3 Active Additional Information Patient not taking.Reported on 08/11/2022 Victoza 18 MG/3ML Subcutaneous Solution Pen-injector (Liraglutide)Ind ications:Type 2 diabetes mellitus with hemoglobin A1c goal of less than 8.0% ([facility]),Type 2 diabetes mellitus with stage 4 chronic kidney disease, with long-term current use of insulin ([facility]) Inject 1.8 mg under the skin [...] urinary tr act symptoms 07/13/2001 Atherosclerosis of [place] co ronary artery of [place] heart without angina pectoris Morbid obesity with [...] use aero chamber. Test performed by Dori COLD WORKING INSPECTOR CPFT Body mass index (BMI) of [...] MANAGEMENT 07/22/2008 0 Overview: Kianna Lyn RN [phone] Examination following surgery 07/11/2008 Difficult intubation 07/10/2008 02/19/2020 Overview: Patient seen and examined in OR#1.Possible difficult intubation.TM distance about 5 cms.MP 3-4. Will plan FOB electively Due to current situation. EXAMINATION OF PARTICIPANT IN CLINICAL TRIAL-gen omics 07/04/2008 05/30/2009 Overview: Renamed Per Clinical Trials Billing Project. Study Titile: Genomic Markers for Patients with Cardiovascular Disease Project #[id number] PI: Miriam Roque MD Please call [phone] with study related questions Chronic coronary artery [...] at goal 07/04/2008 9 GENOMICS CARDIO RESEARCH OTHER*[id number] 200803/23/2016 Overview: Renamed Per Clinical Trials Billing Project. Study Titile: Genomic Markers for Patients with Cardiovascular Disease Project #[id number] PI: Miriam Roque MD Please call [phone] with study related questions Kidney disease, chronic, [...] mRNA, LNP-s, No Pre serve, 2-Dose Series (EnStorage) 12/09/2020,05/09/2020,04/11/2020 COVID-19, LNP-s, No Preserve , Juan [...] 09/01/2022 12:59 PM EDT Attempted to call [facility] specialty at this time. Call was disconnected [...] it to be split. Canceled pended script. [facility] are you able to pens the [...] appropriate. * Telephone Encounter - Romina Luu [facility] - 08/31/2022 3:26 PM EDTPending Prescriptions: Disp Refills Octreotide Acetate 100 MCG/ML Subcutaneous*30 mL 0 Sig: Inject 100 mcg under the skin in the morning. * Addendum Note - Adina Zamudio RN - 08/31/2022 2:45 PM EDTAddended by: ADINA ZAMUDIO on: 08/31/2022 02:45 PM Modules accepted: Orders * Telephone Encounter - Adina Zamudio RN - 08/31/2022 2:40 PM EDT Justinaer specially are you able to verify pended [...] Angulo * Telephone Encounter - Manda Porras [facility] - 08/30/2022 9:14 AM EDT Maurisio Holley was scheduled to have his octreotide syringes ship out today, however syringes are currently on backorder. Syringes are anticipated (but not guaranteed) to return to stock on 09/10/22. Octreotidevials are also on backorder with no anticipated return to stock date. Please advise. Thank you! Courtney Porras, Pharm.D. Clinical Specialty Pharmacist [facility] 08/30/2022, 9:21 AM documented in this encounter Plan of Treatment Upcoming Encounters Date Type Specialty Care Team Description 09/03/2022 Office Visit Pharmacy [address] [place] [address] 09/03/2022 Office Visit Gastroenterology Marielena Giraldo CRNP [address] [place] [address] 09/21/2022 Office Visit Cardiology Blair Hannah PA-C [address] [place] [address] 10/07/2022 Cardiac Studies [facility] [address] [place] [address] 10/11/2022 Office Visit Sleep Disorders Eulalia Milligan DO [address] [place] [address] 10/12/2022 Office Visit Nephrology Quin Narvaez MD [address] [facility] [place] [address] 10/25/2022 Office Visit Family Medicine Nicola Prado MD [address] [place] [address] [place] [address] 11/30/2022 Office Visit Urology Denny Armando MD [address] [place] [address] 12/20/2022 Office Visit Dermatology Meron Aragon, LEONIE [address] [place] [address] [place] [address] 01/24/2023 Office Visit Rheumatology Ashley Mancilla PA-C 06/02/2023 Nurse Only Ancillary [place], Nurse Annual Wellness [address] [place] [address] [place] [address] Scheduled Procedures Name Priority Associated Diagnoses Date/Ti [...] this encounter Medical Devices Implanted Type Area Paper Cutter Operator Device Identifier Shelf Expiration Date Model / Serial / Lot Sut Steel 6 [id number] - [id number] Implanted:Qty: 6 on 07/10/2008 at [place] [facility] [place]/A: Chest DO NOT USE 08/14/2012 [id number] / / [id number] documented as of this encounter Additional Health Concerns Infection Onset Date Last Indicated Resolved Time COVID-19 Immunosuppressed 05/31/2022 05/31/2022 12:19 AM EDT documented as of this encounter Advance Directives Documents on File Type Date Recorded 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 No Code Status History Code Status Date Activated Date Inactivated Comments Full Code 07/10/2008 6:37 PM 07/21/2008 4:52 PM This o rder reflects the patients wishes and were consensually agreed upon. Full Code 07/04/2008 2:18 PM 07/10/2008 6:30 PM Healthcare Agents on File Name Relationship Healthcare Agent [facility] Shane Beltran Adult Child Health Care Repr esentative (appointed verbally by patient or by statute hierarchy) Care Teams Grit Removal Operator Relationship Specialty Start Date End Date Nicola Prado MD [address] [place] [address] [place] [address] PCP - General Family Medicine 06/19/21 documented as of this encounter
--- OUTSIDE RECORDS SUMMARY | 2023-02-03 20:38 | External Medical Summary | Summary of Care ---
Author Name Unknown Organization [facility] Address [address] [place] [address] Phone [phone] Care Team Providers Care Car Pusher Name Role Phone Nicola Prado MD Primary Care Provide r Reason for Visit * Reason Onset Date Comments Medication Refill 08/30/2022 Encounter Details Date Type Department Care Team Description 08/30/2022 Refill Gastroenterology, [facility] [address] [place] [address] Marielena Giraldo CRNP [address] [place] [address] Allergies Active Allergy Reactions Severity Noted Date Comments Hydromorphone High 09/20/2021 Other reaction(s): Nausea Other reaction(s): Nausea 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/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 Other reaction(s): AMS Other reaction(s): AMS Prasugrel 04/02/2016 bleeding Prednisone High 09/20/2021 Other reaction(s): INCREASE BLOOD SUGAR Other reaction(s): INCREASE BLOOD SUGAR documented as of this encounter (statuses as of 08/31/2022) Medications Medication Sig Dispensed Refills Start Date [...] Active Sertraline HCl 50 MG Oral Tablet (Zoloft)Indication s:Outbursts of anger,Current mild episode of major depressive disorder without prior episode (HCC) Take 1 tablet by mouth daily in the morning. 30 Tablet 1 05/11/2021 Active Betamethasone Dipropionate 0.05 % External OintmentIndication [...] 6 06/26/2021 Active Vitamin D3 1.25 MG (53706 UT) Oral Capsule Take 1 Capsule by mouth in the morning. 0 Active CPAP every night at bedtime . 2 Liters 0 Active Baclofen 20 MG Oral TabletIndications: Muscle cramps one pill three times a day [...] 08/11/2022 Simethicone 80 MG Oral Tablet Chewable (Mylicon)Indicatio ns:Gastroenteritis Take by mouth 1 Tablet as needed [...] Extended Release 12 Hour (Mucinex)Indicatio ns:COPD exacerbation (HCC),Chronic cough Take by mouth 1 Tablet 2 times a day as needed for Congestion. Take with plenty of water. Do not cut, crush or chew 40 Tablet 2 12/17/2021 Active JOYRIDE Auto CommunityTouch UltraSoft LancetsIndications :Type 2 diabetes mellitus with [...] the morning. 63 mL 3 03/23/2022 Active Syringe/Needle (Disp) 25G X 5/8" 3 ML USE DIRECTED TWICE DAILY FOR OCTREOTIDE INJECTIONS 60 Each 1 02/22/2022 Active Tamsulosin HCl 0.4 MG Oral Capsule [...] Tablet 1 05/05/2022 Active Easy Touch Pen [place] 31G X 8 MM (Insulin Pen Needle)Indications :Type 2 diabetes mellitus with hemoglobin A1c goal of less than 8.0% ([facility]),Type 2 diabetes mellitus with stage 4 chronic kidney disease, unspecified whether snf insulin use (HCC) Use up to six [...] 08/11/2022 Victoza 18 MG/3ML Subcutaneous Solution Pen-injector (Liraglutide)Indic [...] daily for octreotide injections. 60 Each 1 02/22/2022 3 Discontinue d(Refill) Octreotide Acetate 50 MCG/ML Subcutaneous Solution Prefilled Syringe INJECT 50 MCG (1 SYRINGE) UNDER THE SKIN IN THE MORNING AND 50 MCG (1 SYRINGE) BEFORE BEDTIME. 180 mL 3 12/28/2021 3 Discontinue d(Refill) Syringe Luer Lock 25G X 5/8" 3 ML Use as directed twice daily for octreotide injections. 60 Each 1 08/30/2022 3 Discontinue d(Medicatio n/Dose Changed) Octreotide Acetate 50 MCG/ML Subcutaneous Solution Prefilled Syringe Inject 50mcg under skin in the morning and before bedtime 180 mL 3 08/30/2022 3 Discontinue d(Refill) Hospital, Clinic, or Other [...] as of this encounter (statuses as of 08/31/2022) Active Problems Problem Noted Date Hypertensive heart [...] urinary tr act symptoms 07/13/2001 Atherosclerosis of [place] co ronary artery of [place] heart without angina pectoris Morbid obesity with BMI of 45.0-49.9, ad ult documented as of this encounter (statuses as of 08/31/2022) Resolved Problems Problem Noted Date Resolved Date [...] use aero chamber. Test performed by Dori ROGUER CPFT Body mass index (BMI) of 45.0 [...] (transient ischemic attack) 02/04/2016 11/23/2017 Overview: [facility] Anemia of chronic renal failure [...] 07/22/2008 0 Overview: Kianna Lyn RN [phone] Examination following surgery 07/11/2008 Difficult intubation 07/10/2008 02/19/2020 Overview: Patient seen and examined in OR#1.Possible difficult intubation.TM distance about 5 cms.MP 3-4. Will plan FOB electively Due to current situation. EXAMINATION OF PARTICIPANT IN CLINICAL TRIAL-gen omics 07/04/2008 05/30/2009 Overview: Renamed Per Clinical Trials Billing Project. Study Titile: Genomic Markers for Patients with Cardiovascular Disease Project #[id number] PI: Miriam Roque MD Please call [phone] with study related questions Chronic coronary artery [...] at goal 07/04/2008 9 GENOMICS CARDIO RESEARCH OTHER*[id number] 200803/23/2016 Overview: Renamed Per Clinical Trials Billing Project. Study Titile: Genomic Markers for Patients with Cardiovascular Disease Project #[id number] PI: Miriam Roque MD Please call [phone] with study related questions Kidney disease, chronic, [...] as of this encounter (statuses as of 08/31/2022) Immunizations Name Administration Dates Next Due COVID-19 mRNA, LNP-s, No Pre serve, 2-Dose Series ([employer] via [place]) 12/09/2020,05/09/2020,04/11/2020 COVID-19, LNP-s, No Preserve , Juan [...] it to be split. Canceled pended script. [facility] specialty are you able to pens the [...] appropriate. * Telephone Encounter - Romina Luu RPh - 08/31/2022 3:26 PM EDTPending Prescriptions: Disp Refills Octreotide Acetate 100 MCG/ML Subcutaneous*30 mL 0 Sig: [id number] mcg under the skin in the morning. [...] 08/30/2022 10:51 AM EDT Rx sent to [facility]. Nurses - can you pls follow up with pt & pharmacy FRANCHESKA Angulo * Telephone Encounter - FRANCHESKA Collins - 08/30/2022 10:07 AM EDT Any local pharmacy which may have med and syringes in stock that I can send Rx to? FRANCHESKA Angulo * Telephone Encounter - Manda Porras RPh - 08/30/2022 9:14 AM EDT Maurisio Holley was scheduled to have his octreotide syringes ship out today, however syringes are currently on backorder. Syringes are anticipated (but not guaranteed) to return to stock on 09/10/22. Octreotidevials are also on backorder with no anticipated return to stock date. Please advise. Thank you! Courtney Porras, Pharm.D. Clinical Specialty Pharmacist [facility] 08/30/2022, 9:21 AM documented in this encounter Plan of Treatment Upcoming Encounters Date Type Specialty Care Team Description 09/03/2022 Office Visit Pharmacy [address] [place] [address] 09/03/2022 Office Visit Gastroenterology Marielena Giraldo CRNP [address] [place] [address] 09/21/2022 Office Visit Cardiology Blair Hannah PA-C [address] [place] [address] 10/07/2022 Cardiac Studies Cardiology [facility] [address] [place] [address] 10/11/2022 Office Visit Sleep Disorders Eulalia Milligan DO [address] [place] [address] 10/12/2022 Office Visit Nephrology Quin Narvaez MD [address] [place] [address] 10/25/2022 Office Visit Family Medicine Nicola Prado MD [address] [place] [address] [place] [address] 11/30/2022 Office Visit Urology Denny Armando MD [address] [place] [address] 12/20/2022 Office Visit Dermatology Meron Aragon PA-C [address] [place] [address] [place] [address] 01/24/2023 Office Visit Rheumatology Ashley Mancilla PA-C 06/02/2023 Nurse Only Ancillary Neeraj Nurse Annual Wellness [address] [place] [address] [place] [address] Scheduled Procedures Name Priority Associated Diagnoses Date/Ti [...] this encounter Medical Devices Implanted Type Area Switch Adjuster Device Identifier Shelf Expiration Date Model / Serial / Lot Sut Steel 6 M654g - [id number] Implanted:Qty: 6 on 07/10/2008 at [place] [facility] [place] N/A: Chest DO NOT USE 08/14/2012 [id number] / / [id number] documented as of this encounter Additional Health Concerns Infection Onset Date Last Indicated Resolved Time COVID-19 Immunosuppressed 05/31/2022 05/31/2022 12:19 AM EDT documented as of this encounter Advance Directives Documents on File Type Date 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 No Code Status History Code Status [...] patient or by statute hierarchy) Care Teams Car Pusher Relationship Specialty Start Date End Date Nicola Prado MD [address] [place] [address] [place] [address] PCP - General Family Medicine 06/19/21 documented as of this encounter
--- OUTSIDE RECORDS SUMMARY | 2023-02-03 20:38 | External Medical Summary | Summary of Care ---
Author Name Unknown Organization [facility] Address [address] [place] [address] Phone [phone] Care Team Providers Care Computer Mechanic Name Role Phone Nicola Prado MD Primary Care Provide r Reason for Visit * Reason Onset Date Comments Medication Refill 08/30/2022 Encounter Details Date Type Department Care Team Description 08/30/2022 Telephone Gastroenterology, [facility] [address] [place] [address] Marielena Giraldo CRNP [address] [place] [address] Medication Refill Allergies Active Allergy Reactions Severity Noted Date Comments Hydromorphone High 09/20/2021 Other reaction(s): Nausea Other reaction(s): Nausea 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/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 Other reaction(s): AMS Other reaction(s): AMS Prasugrel 04/02/2016 bleeding Prednisone High 09/20/2021 Other reaction(s): INCREASE BLOOD SUGAR Other reaction(s): INCREASE BLOOD SUGAR documented as of this encounter (statuses as of 08/30/2022) Medications Medication Sig Dispensed Refills Start Date [...] 6 06/26/2021 Active Vitamin D3 1.25 MG (20777 UT) Oral Capsule Take 1 Capsule by [...] or chew 40 Tablet 2 12/17/2021 Active MagazinoTouch UltraSoft LancetsIndications :Type 2 diabetes mellitus with [...] 8.0% ([facility]) Inject 110 Units under the [...] Tablet 1 05/05/2022 Active Easy Touch Pen [place] 31G X 8 MM (Insulin Pen Needle)Indications :Type 2 diabetes mellitus with hemoglobin A1c goal of less than 8.0% ([facility]),Type 2 diabetes mellitus with stage 4 chronic kidney disease, unspecified whether fpc insulin use ([facility]) Use up to six times daily with insulin. DXe11.9 600 Each 3 05/22/2022 Active Albuterol Sulfate HFA 108 (90 Base) MCG/ACT Inhalation Aerosol SolutionIndication s:COPD exacerbation ([facility]),Chronic cough Inhale by mouth 2 [...] as of this encounter (statuses as of 08/30/2022) Active Problems Problem Noted Date Hypertensive heart [...] urinary tr act symptoms 07/13/2001 Atherosclerosis of [place] co ronary artery of [place] heart without angina pectoris Morbid obesity with BMI of 45.0-49.9, ad ult documented as of this encounter (statuses as of 08/30/2022) Resolved Problems Problem Noted Date Resolved Date [...] use aero chamber. Test performed by Dori CONVOLUTE TUBE WINDER CPFT Body mass index (BMI) of 45.0 [...] 07/22/2008 0 Overview: Kianna Lyn, RN [phone] Examination following surgery 07/11/2008 Difficult intubation 07/10/2008 02/19/2020 Overview: Patient seen and examined in OR#1.Possible difficult intubation.TM distance about 5 cms.MP 3-4. Will plan FOB electively Due to current situation. EXAMINATION OF PARTICIPANT IN CLINICAL TRIAL-gen omics 07/04/2008 05/30/2009 Overview: Renamed Per Clinical Trials Billing Project. Study Titile: Genomic Markers for Patients with Cardiovascular Disease Project #[id number] PI: Miriam Roque MD Please call [phone] with study related questions Chronic coronary artery [...] at goal 07/04/2008 9 GENOMICS CARDIO RESEARCH OTHER*[id number] 200803/23/2016 Overview: Renamed Per Clinical Trials Billing Project. Study Titile: Genomic Markers for Patients with Cardiovascular Disease Project #[id number] PI: Miriam Roque MD Please call [phone] with study related questions Kidney disease, chronic, [...] as of this encounter (statuses as of 08/30/2022) Immunizations Name Administration Dates Next Due COVID-19 mRNA, LNP-s, No Pre serve, 2-Dose Series ([employer]) 12/09/2020,05/09/2020,04/11/2020 COVID-19, LNP-s, No Preserve , [...] Zamudio RN - 08/30/2022 12:45 PM EDT [facility] speciality are you able to transfer to [...] Angulo * Telephone Encounter - Manda Porras [facility] - 08/30/2022 9:14 AM EDT Maurisio Holley was scheduled to have his octreotide syringes ship out today, however syringes are currently on backorder. Syringes are anticipated (but not guaranteed) to return to stock on 09/10/22. Octreotidevials are also on backorder with no anticipated return to stock date. Please advise. Thank you! Courtney Porras, Pharm.D. Clinical Specialty Pharmacist [facility] 08/30/2022, 9:21 AM documented in this encounter Plan of Treatment Upcoming Encounters Date Type Specialty Care Team Description 09/03/2022 Office Visit Pharmacy [address] [place] [address] 09/03/2022 Office Visit Gastroenterology Marielena Giraldo CRNP [address] [place] [address] 09/21/2022 Office Visit Cardiology Blair Hannah PA-C [address] [place] [address] 10/07/2022 Cardiac Studies Cardiology [facility] [address] [place] [address] 10/11/2022 Office Visit Sleep Disorders Eulalia Milligan, DO [address] [place] [address] 10/12/2022 Office Visit Nephrology Quin Narvaez MD [address] [place] [address] 10/25/2022 Office Visit Family Medicine Nicola Prado MD [address] [place] [address] [place] [address] 11/30/2022 Office Visit Urology Denny Armando MD [address] [place] [id number] 12/20/2022 Office Visit Dermatology Meron Aragon PA-C [address] [place] [address] [place] [address] 01/24/2023 Office Visit Rheumatology Ashley Mancilla PA-C 06/02/2023 Nurse Only Ancillary Neeraj, Nurse Annual Wellness [address] [place] [address] [place] [address] Scheduled Procedures Name Priority Associated Diagnoses Date/Ti [...] this encounter Medical Devices Implanted Type Area Concrete Bucket Hooker Device Identifier Shelf Expiration Date Model / Serial / Lot Sut Steel 6 M654g - [id number] Implanted:Qty: 6 on 07/10/2008 at [place] [facility] [place] N/A: Chest DO NOT USE 08/14/2012 [id number] / / [id number] documented as of this encounter Additional Health Concerns Infection Onset Date Last Indicated Resolved Time COVID-19 Immunosuppressed 05/31/2022 05/31/2022 12:19 AM EDT documented as of this encounter Advance Directives Documents on File Type Date Recorded 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 No Code Status History Code Status [...] or by statute hierarchy) Care Teams Computer Mechanic Relationship Specialty Start Date End Date Nicola Prado MD [address] [place] [address] [place] [address] PCP - General Family Medicine 06/19/21 documented as of this encounter
--- OUTSIDE RECORDS SUMMARY | 2023-02-03 20:38 | External Medical Summary | Summary of Care ---
Author Name Unknown Organization [facility] Address [address] [place] [address] Phone [phone] Care Team Providers Care Marine Meteorologist Name Role Phone Nicola Prado MD Primary Care Provide r Reason for Visit * Reason Onset Date Comments Medication Refill 08/30/2022 Encounter Details Date Type Department Care Team Description 08/30/2022 Telephone Gastroenterology, [facility] [address] [place] [address] Marielena Giraldo CRNP [address] [place] [address] Medication Refill Allergies Active Allergy Reactions Severity [...] 6 06/26/2021 Active Vitamin D3 1.25 MG (29686 UT) Oral Capsule Take 1 Capsule by [...] or chew 40 Tablet 2 12/17/2021 Active Plures TechnologiesTouch UltraSoft LancetsIndications :Type 2 diabetes mellitus with [...] 1 05/05/2022 Active Easy Touch Pen [place] 31G X 8 MM (Insulin Pen Needle)Indications :Type 2 diabetes mellitus with hemoglobin A1c goal of less than 8.0% ([facility]),Type 2 diabetes mellitus with stage 4 chronic kidney disease, unspecified whether jail insulin use ([facility]) Use up to six times daily with insulin. DXe11.9 600 Each 3 05/22/2022 Active Albuterol Sulfate HFA 108 (90 Base) MCG/ACT Inhalation Aerosol SolutionIndication s:COPD exacerbation ([facility]),Chronic cough Inhale by [...] use aero chamber. Test performed by Dori SENSOR TECHNICIAN CPFT Body mass index (BMI) of [...] 07/22/2008 0 Overview: Kianna Lyn, RN [phone] Examination following surgery 07/11/2008 Difficult intubation 07/10/2008 02/19/2020 Overview: Patient seen and examined in OR#1.Possible difficult intubation.TM distance about 5 cms.MP 3-4. Will plan FOB electively Due to current situation. EXAMINATION OF PARTICIPANT IN CLINICAL TRIAL-gen omics 07/04/2008 05/30/2009 Overview: Renamed Per Clinical Trials Billing Project. Study Titile: Genomic Markers for Patients with Cardiovascular Disease Project #[id number] PI: Miriam Roque MD Please call [phone] with study related questions Chronic coronary artery [...] at goal 07/04/2008 9 GENOMICS CARDIO RESEARCH OTHER*[id number] 200803/23/2016 Overview: Renamed Per Clinical Trials Billing Project. Study Titile: Genomic Markers for Patients with Cardiovascular Disease Project #[id number] PI: Miriam Roque MD Please call [phone] with study related questions Kidney disease, chronic, [...] mRNA, LNP-s, No Pre serve, 2-Dose Series (Zipments) 12/09/2020,05/09/2020,04/11/2020 COVID-19, LNP-s, No Preserve , Juan [...] 08/30/2022 10:51 AM EDT Rx sent to [place]. Nurses - can you pls follow up [...] you! Courtney Porras, Pharm.D. Clinical Specialty Pharmacist [facility] 08/30/2022, 9:21 AM documented in this encounter Plan of Treatment Upcoming Encounters Date Type Specialty Care Team Description 09/03/2022 Office Visit Pharmacy [address] [place] [address] 09/03/2022 Office Visit Gastroenterology Marielena Giraldo CRNP [address] [place] [address] 09/21/2022 Office Visit Cardiology Blair Hannah PA-C [address] [place] [address] 10/07/2022 Cardiac Studies Cardiology Keith Pickard [facility] [address] [place] [address] 10/11/2022 Office Visit Sleep Disorders Eulalia Milligan DO [address] [place] [address] 10/12/2022 Office Visit Nephrology Quin Narvaez MD [address] [place] [address] 10/25/2022 Office Visit Family Medicine Nicola Prado MD [address] [place] [address] [place] [address] 11/30/2022 Office Visit Urology Denny Armando MD [address] [place] [address] [place] [address] 12/20/2022 Office Visit Dermatology Meron Aragon PA-C [address] [place] [address] [place] [address] 01/24/2023 Office Visit Rheumatology Ashley Mancilla PA-C 06/02/2023 Nurse Only Ancillary [place], Nurse Annual [facility] [address] [place] [address] [place] [address] Scheduled Procedures Name Priority [...] this encounter Medical Devices Implanted Type Area Accountant Budget Device Identifier Shelf Expiration Date Model / Serial / Lot Sut Steel 6 M654g - [id number] Implanted:Qty: 6 on 07/10/2008 at OR [facility] N/A: Chest DO NOT USE 08/14/2012 [id number] / / [id number] documented as of this encounter Additional Health Concerns Infection Onset Date Last Indicated Resolved Time COVID-19 Immunosuppressed 05/31/2022 05/31/2022 12:19 AM EDT documented as of this encounter Advance Directives Documents on File Type Date Recorded Patient Elastic Attacher Zigzag Expl anation Power of Aerodynamics Professor 06/26/2019 POWER OF A TTORNEY Advance Directives [...] the patient have Health Care Power of Aerodynamics Professor? No Code Status History Code Status Date [...] patient or by statute hierarchy) Care Teams Marine Meteorologist Relationship Specialty Start Date End Date Nicola Prado MD [address] [place] [address] [place] [address] PCP - General Family Medicine 06/19/21 documented as of this encounter
--- OUTSIDE RECORDS SUMMARY | 2023-02-03 20:38 | External Medical Summary | Summary of Care ---
Author Name Unknown Organization [facility] Address [address] [place] [address] Phone [phone] Care Team Providers Care Human Resources Specialist Name Role Phone Nicola Prado MD Primary Care Provide r Reason for Visit * Reason Onset Date Comments Medication Refill 08/30/2022 Encounter Details Date Type Department Care Team Description 08/30/2022 Telephone Gastroenterology, [facility] [address] [place] [address] Marielena Giraldo CRNP [address] [place] [address] Medication Refill Allergies Active Allergy Reactions Severity [...] 6 06/26/2021 Active Vitamin D3 1.25 MG (52771 UT) Oral Capsule Take 1 Capsule by [...] or chew 40 Tablet 2 12/17/2021 Active Randolph HospitalTouch UltraSoft LancetsIndications :Type 2 diabetes mellitus [...] Tablet 1 05/05/2022 Active Easy Touch Pen [place] 31G X 8 MM (Insulin Pen Needle)Indications :Type 2 diabetes mellitus with hemoglobin A1c goal of less than 8.0% ([facility]),Type 2 diabetes mellitus with stage 4 chronic kidney disease, unspecified whether [facility] insulin use ([facility]) Use up to six times daily with insulin. DXe11.9 600 Each 3 05/22/2022 Active Albuterol Sulfate HFA 108 (90 Base) MCG/ACT Inhalation Aerosol SolutionIndication s:COPD exacerbation ([facility]),Chronic cough [...] urinary tr act symptoms 07/13/2001 Atherosclerosis of [place] co ronary artery of [place] heart without angina pectoris Morbid obesity with [...] use aero chamber. Test performed by Dori PERSONNEL ADMINISTRATOR CPFT Body mass index (BMI) of 45.0 [...] 07/22/2008 0 Overview: Kianna Lyn, RN [phone] Examination following surgery 07/11/2008 Difficult intubation 07/10/2008 02/19/2020 Overview: Patient seen and examined in OR#1.Possible difficult intubation.TM distance about 5 cms.MP 3-4. Will plan FOB electively Due to current situation. EXAMINATION OF PARTICIPANT IN CLINICAL TRIAL-gen omics 07/04/2008 05/30/2009 Overview: Renamed Per Clinical Trials Billing Project. Study Titile: Genomic Markers for Patients with Cardiovascular Disease Project #[id number] PI: Miriam Roque MD Please call [phone] with study related questions Chronic coronary artery [...] at goal 07/04/2008 9 GENOMICS CARDIO RESEARCH OTHER*[id number] 200803/23/2016 Overview: Renamed Per Clinical Trials Billing Project. Study Titile: Genomic Markers for Patients with Cardiovascular Disease Project #[id number] PI: Miriam Roque MD Please call [phone] with study related questions Kidney disease, chronic, [...] mRNA, LNP-s, No Pre serve, 2-Dose Series (Tenlegs) 12/09/2020,05/09/2020,04/11/2020 COVID-19, LNP-s, No Preserve , Juan [...] 08/30/2022 10:51 AM EDT Rx sent to [facility]. Nurses - can you pls follow up [...] you! Courtney Porras, Pharm.D. Clinical Specialty Pharmacist [facility] 08/30/2022, 9:21 AM documented in this encounter Plan of Treatment Upcoming Encounters Date Type Specialty Care Team Description 09/03/2022 Office Visit Pharmacy [address] [place] [address] 09/03/2022 Office Visit Gastroenterology Marielena Giraldo CRNP [address] [facility] [place] [address] 09/21/2022 Office Visit Cardiology Blair Hannah PA-C [address] [place] [address] 10/07/2022 Cardiac Studies Cardiology Keith Pickard [facility] [address] [place] [address] 10/11/2022 Office Visit Sleep Disorders Eulalia Milligan DO [address] [place] [address] 10/12/2022 Office Visit Nephrology Quin Narvaez MD [address] [facility] [place] [address] 10/25/2022 Office Visit Family Medicine Nicola Prado MD [address] [place] [address] [place] [address] 11/30/2022 Office Visit Urology Denny Armando MD [address] [place] [address] [place] [address] 12/20/2022 Office Visit Dermatology Meron Aragon PA-C [address] [place] [address] [place] [address] 01/24/2023 Office Visit Rheumatology Ashley Mancilla PA-C 06/02/2023 Nurse Only Ancillary Neeraj Nurse Annual Wellness [address] [place] [address] [place] [address] Scheduled Procedures Name Priority Associated Diagnoses Date/Ti [...] this encounter Medical Devices Implanted Type Area Wort Extractor Device Identifier Shelf Expiration Date Model / Serial / Lot Sut Steel 6 [id number] - [id number] Implanted:Qty: 6 on 07/10/2008 at OR [facility] N/A: Chest DO NOT USE 08/14/2012 [id number] / / [id number] documented as of this encounter Additional Health Concerns Infection Onset Date Last Indicated Resolved Time COVID-19 Immunosuppressed 05/31/2022 05/31/2022 12:19 AM EDT documented as of this encounter Advance Directives Documents on File Type Date Recorded Patient Underground Utility Locator Expl anation Power of Wired Music Operator 06/26/2019 POWER OF A TTORNEY Advance [...] the patient have Health Care Power of Wired Music Operator? No Code Status History Code Status [...] patient or by statute hierarchy) Care Teams Human Resources Specialist Relationship Specialty Start Date End Date Nicola Prado MD [address] [place] [address] [place] [address] PCP - General Family Medicine 06/19/21 documented as of this encounter
--- OUTSIDE RECORDS SUMMARY | 2023-02-03 20:38 | External Medical Summary | Summary of Care ---
Author Name Unknown Organization [facility] Address [address] [place] [address] Phone [phone] Care Team Providers Care Esl Instructional Assistant Name Role Phone Nicola Prado MD Primary Care Provide r Reason for Visit * Reason Onset Date Comments Medication Refill 08/30/2022 Encounter Details Date Type Department Care Team Description 08/30/2022 Refill Gastroenterology, [facility] [address] [place] [address] Marielena Giraldo CRNP [address] [place] [address] Allergies Active Allergy Reactions Severity Noted Date [...] 6 06/26/2021 Active Vitamin D3 1.25 MG (11474 UT) Oral Capsule Take 1 Capsule by [...] or chew 40 Tablet 2 12/17/2021 Active MedaPhorTouch UltraSoft LancetsIndications :Type 2 diabetes mellitus with [...] Tablet 1 05/05/2022 Active Easy Touch Pen [place] 31G X 8 MM (Insulin Pen Needle)Indications :Type 2 diabetes mellitus with hemoglobin A1c goal of less than 8.0% ([facility]),Type 2 diabetes mellitus with stage 4 chronic kidney disease, unspecified whether nursing home insulin use ([facility]) Use up to six times daily with insulin. DXe11.9 600 Each 3 05/22/2022 Active Albuterol Sulfate HFA 108 (90 Base) MCG/ACT Inhalation Aerosol SolutionIndication s:COPD exacerbation ([facility]),Chronic cough Inhale by [...] use aero chamber. Test performed by Dori SEATER GRINDER CPFT Body mass index (BMI) of [...] 07/22/2008 0 Overview: Kianna Lyn RN [phone] Examination following surgery 07/11/2008 Difficult intubation 07/10/2008 02/19/2020 Overview: Patient seen and examined in OR#1.Possible difficult intubation.TM distance about 5 cms.MP 3-4. Will plan FOB electively Due to current situation. EXAMINATION OF PARTICIPANT IN CLINICAL TRIAL-gen omics 07/04/2008 05/30/2009 Overview: Renamed Per Clinical Trials Billing Project. Study Titile: Genomic Markers for Patients with Cardiovascular Disease Project #[id number] PI: Miriam Roque MD Please call [phone] with study related questions Chronic coronary artery [...] at goal 07/04/2008 9 GENOMICS CARDIO RESEARCH OTHER*[id number] 200803/23/2016 Overview: Renamed Per Clinical Trials Billing Project. Study Titile: Genomic Markers for Patients with Cardiovascular Disease Project #[id number] PI: Miriam Roque MD Please call [phone] with study related questions Kidney disease, chronic, [...] mRNA, LNP-s, No Pre serve, 2-Dose Series (Interactive Advisory Software) 12/09/2020,05/09/2020,04/11/2020 COVID-19, LNP-s, No Preserve , Juan [...] appropriate. * Telephone Encounter - Romina Luu [facility] - 08/31/2022 3:26 PM EDTPending Prescriptions: Disp [...] Angulo * Telephone Encounter - Manda Porras [facility] - 08/30/2022 9:14 AM EDT Marizoltrudy Maurisio was scheduled to have his octreotide syringes ship out today, however syringes are currently on backorder. Syringes are anticipated (but not guaranteed) to return to stock on 09/10/22. Octreotidevials are also on backorder with no anticipated return to stock date. Please advise. Thank you! Courtney Porras, Pharm.D. Clinical Specialty Pharmacist [facility] 08/30/2022, 9:21 AM documented in this encounter Plan of Treatment Upcoming Encounters Date Type Specialty Care Team Description 09/03/2022 Office Visit Pharmacy [address] [place] [address] 09/03/2022 Office Visit Gastroenterology Marielena Giraldo CRNP [address] [place] [address] 09/21/2022 Office Visit Cardiology Blair Hannah PA-C [address] [place] [address] 10/07/2022 [facility]iac [facility] [address] [place] [address] 10/11/2022 Office Visit Sleep Disorders Eulalia Milligan DO [address] [place] [address] 10/12/2022 Office Visit Nephrology Quin Narvaez MD [address] [facility] [place] [address] 10/25/2022 Office Visit Family Medicine Nicola Prado MD [address] [place] [address] [place] [address] 11/30/2022 Office Visit Urology Denny Armando MD [address] [address] [place] [address] 12/20/2022 Office Visit Dermatology Meron Aragon PA-C [address] [place] [address] [place] [address] 01/24/2023 Office Visit Rheumatology Ashley Mancilla PA-C 06/02/2023 Nurse Only Ancillary Neeraj, Nurse Annual Wellness [address] [place] [address] [place] [address] Scheduled Procedures Name Priority Associated Diagnoses Date/Ti [...] encounter Medical Devices Implanted Type Area Machine Engineer Device Identifier Shelf Expiration Date Model / Serial / Lot Sut Steel 6 M654g - [id number] Implanted:Qty: 6 on 07/10/2008 at OR [facility] N/A: Chest DO NOT USE 08/14/2012 M654G / / [id number] documented as of this encounter Additional Health Concerns Infection Onset Date Last Indicated Resolved Time COVID-19 Immunosuppressed 05/31/2022 05/31/2022 12:19 AM EDT documented as of this encounter Advance Directives Documents on File Type Date Recorded Patient Online Merchandising Coordinator Expl anation Power of Car Blocker 06/26/2019 POWER OF A TTORNEY Advance Directives [...] the patient have Health Care Power of Car Blocker? No Code Status History Code Status Date [...] patient or by statute hierarchy) Care Teams Esl Instructional Assistant Relationship Specialty Start Date End Date Nicola Prado MD [address] [place] [address] [place] [address] PCP - General Family Medicine 06/19/21 documented as of this encounter
--- OUTSIDE RECORDS SUMMARY | 2023-02-03 20:38 | External Medical Summary | Summary of Care ---
Author Name Unknown Organization [facility] Address [address] [place] [address] Phone [phone] Care Team Providers Care Yarn Twister Name Role Phone Nicola Prado MD Primary Care Provide r Reason for Visit * Reason Onset Date Comments Medication Refill 08/30/2022 Encounter Details Date Type Department Care Team Description 08/30/2022 Refill Gastroenterology, [facility] [address] [place] [address] Marielena Giraldo CRNP [address] [place] [address] Allergies Active Allergy Reactions Severity Noted Date [...] 6 06/26/2021 Active Vitamin D3 1.25 MG (93194 UT) Oral Capsule Take 1 Capsule by [...] or chew 40 Tablet 2 12/17/2021 Active DialogfeedTouch UltraSoft LancetsIndications :Type 2 diabetes mellitus with [...] Tablet 1 05/05/2022 Active Easy Touch Pen [place] 31G X 8 MM (Insulin Pen Needle)Indications [...] MCG/ACT Inhalation Aerosol SolutionIndication s:COPD exacerbation ([facility]),Chronic cough Inhale by [...] urinary tr act symptoms 07/13/2001 Atherosclerosis of [place] co ronary artery of [place] heart without angina pectoris Morbid obesity with [...] use aero chamber. Test performed by Dori SEMICONDUCTOR PROCESSING GROUP LEADER CPFT Body mass index (BMI) of 45.0 [...] attack) 02/04/2016 11/23/2017 Overview: [facility] Anemia of chronic renal failure 07/30/2015 01/27/2017 [...] 07/22/2008 0 Overview: Kianna Lyn RN 342 2905 Examination following surgery 07/11/2008 Difficult intubation 07/10/2008 02/19/2020 Overview: Patient seen and examined in OR#1.Possible difficult intubation.TM distance about 5 cms.MP 3-4. Will plan FOB electively Due to current situation. EXAMINATION OF PARTICIPANT IN CLINICAL TRIAL-gen omics 07/04/2008 05/30/2009 Overview: Renamed Per Clinical Trials Billing Project. Study Titile: Genomic Markers for Patients with Cardiovascular Disease Project #[id number] PI: Miriam Roque MD Please call [phone] with study related questions Chronic coronary artery [...] at goal 07/04/2008 9 GENOMICS CARDIO RESEARCH OTHER*[id number] 200803/23/2016 Overview: Renamed Per Clinical Trials Billing Project. Study Titile: Genomic Markers for Patients with Cardiovascular Disease Project #[id number] PI: Miriam Roque MD Please call [phone] with study related questions Kidney disease, chronic, [...] mRNA, LNP-s, No Pre serve, 2-Dose Series ([email or web address]) 12/09/2020,05/09/2020,04/11/2020 COVID-19, LNP-s, No Preserve , Juan [...] accepted: Orders * Telephone Encounter - Adina Zmaudio RN - 08/30/2022 11:26 AM EDT I [...] you! Courtney Porras, Pharm.D. Clinical Specialty Pharmacist [facility] 08/30/2022, 9:21 AM documented in this encounter Plan of Treatment Upcoming Encounters Date Type Specialty Care Team Description 09/03/2022 Office Visit Pharmacy [address] [place] [address] 09/03/2022 Office Visit Gastroenterology Marielena Giraldo CRNP [address] [place] [address] 09/21/2022 Office Visit Cardiology Blair Hannah PA-C [address] [place] [address] 10/07/2022 [facility]iac [facility] [address] [place] [address] 10/11/2022 Office Visit Sleep Disorders Eulalia Milligan DO [address] [place] [address] 10/12/2022 Office Visit Nephrology Quin Narvaez MD [address] [place] [address] 10/25/2022 Office Visit Family Medicine Nicola Prado MD [address] [place] [address] [place] [address] 11/30/2022 Office Visit Urology Denny Armando MD [address] [place] [address] [place] [address] 12/20/2022 Office Visit Dermatology Meron Aragon PA-C [address] [place] [address] [place] [address] 01/24/2023 Office Visit Rheumatology Ashley Mancilla PA-C 06/02/2023 Nurse Only Ancillary Neeraj Nurse Annual Wellness [address] [place] [address] [place] [address] Scheduled Procedures Name Priority Associated Diagnoses Date/Ti [...] encounter Medical Devices Implanted Type Area Electric Motor Mechanic Device Identifier Shelf Expiration Date Model / Serial / Lot Sut Steel 6 [id number] - [id number] Implanted:Qty: 6 on 07/10/2008 at OR [facility] [place] N/A: Chest DO NOT USE 08/14/2012 [id number] / / [id number] documented as of this encounter Additional Health Concerns Infection Onset Date Last Indicated Resolved Time COVID-19 Immunosuppressed 05/31/2022 05/31/2022 12:19 AM EDT documented as of this encounter Advance Directives Documents on File Type Date Recorded Patient Bioprocessing Manufacturing Technician Expl anation Power of Procedures Nurse 06/26/2019 POWER OF A TTORNEY Advance Directives [...] the patient have Health Care Power of Procedures Nurse? No Code Status History Code Status Date [...] patient or by statute hierarchy) Care Teams Yarn Twister Relationship Specialty Start Date End Date Nicola Prado MD [address] [place] [address] [place] [phone] PCP - General Family Medicine 06/19/21 documented as of this encounter
--- OUTSIDE RECORDS SUMMARY | 2023-02-03 20:38 | External Medical Summary | Summary of Care ---
Author Name Unknown Organization [facility] Address [address] [place] [address] Phone [phone] Care Team Providers Care Transfusion Aide Name Role Phone Nicola Prado MD Primary Care Provide r Reason for Visit * Reason Onset Date Comments Medication Refill 08/30/2022 Encounter Details Date Type Department Care Team Description 08/30/2022 Telephone Gastroenterology, [facility] [address] [place] [address] Marielena Giraldo CRNP [address] [place] [address] Medication Refill Allergies Active Allergy Reactions Severity [...] 6 06/26/2021 Active Vitamin D3 1.25 MG (50314 UT) Oral Capsule Take 1 Capsule by [...] or chew 40 Tablet 2 12/17/2021 Active Zurex PharmaTouch UltraSoft LancetsIndications :Type 2 diabetes mellitus with [...] Tablet 1 05/05/2022 Active Easy Touch Pen Julian 31G X 8 MM (Insulin Pen Needle)Indications :Type 2 diabetes mellitus with hemoglobin A1c goal of less than 8.0% ([facility]),Type 2 diabetes mellitus with stage 4 chronic kidney disease, unspecified whether penitentiary insulin use ([facility]) Use up to six times daily with insulin. DXe11.9 600 Each 3 05/22/2022 Active Albuterol Sulfate HFA 108 (90 Base) MCG/ACT Inhalation Aerosol SolutionIndication s:COPD exacerbation ([facility] [...] urinary tr act symptoms 07/13/2001 Atherosclerosis of [place] co ronary artery of [place] heart without angina pectoris Morbid obesity with [...] use aero chamber. Test performed by Dori PLUMBING MANAGER CPFT Body mass index (BMI) of [...] 07/22/2008 0 Overview: Kianna Lyn, RN [phone] Examination following surgery 07/11/2008 Difficult intubation 07/10/2008 02/19/2020 Overview: Patient seen and examined in OR#1.Possible difficult intubation.TM distance about 5 cms.MP 3-4. Will plan FOB electively Due to current situation. EXAMINATION OF PARTICIPANT IN CLINICAL TRIAL-gen omics 07/04/2008 05/30/2009 Overview: Renamed Per Clinical Trials Billing Project. Study Titile: Genomic Markers for Patients with Cardiovascular Disease Project #[id number] PI: Miriam Roque MD Please call [phone] with study related questions Chronic coronary artery [...] at goal 07/04/2008 9 GENOMICS CARDIO RESEARCH OTHER*[id number] 200803/23/2016 Overview: Renamed Per Clinical Trials Billing Project. Study Titile: Genomic Markers for Patients with Cardiovascular Disease Project #[id number] PI: Miriam Roque MD Please call [phone] with study related questions Kidney disease, chronic, [...] mRNA, LNP-s, No Pre serve, 2-Dose Series (DigitalVision) 12/09/2020,05/09/2020,04/11/2020 COVID-19, LNP-s, No Preserve , Juan [...] an appropriate alternative for in the meantime? * Telephone Encounter - Adina Zamudio RN [...] 08/30/2022 10:51 AM EDT Rx sent to [facility]. Nurses - can you pls follow up [...] you! Courtney Porras, Pharm.D. Clinical Specialty Pharmacist [facility] 08/30/2022, 9:21 AM documented in this encounter Plan of Treatment Upcoming Encounters Date Type Specialty Care Team Description 09/03/2022 Office Visit Pharmacy [address] [place] [address] 09/03/2022 Office Visit Gastroenterology Marielena Giraldo CRNP [address] [place] [address] 09/21/2022 Office Visit Cardiology Blair Hannah PA-C [address] [place] [address] 10/07/2022 Cardiac Studies Cardiology Keith Pickard [facility] [address] [place] [address] 10/11/2022 Office Visit Sleep Disorders Eulalia Milligan DO [address] [place] [address] 10/12/2022 Office Visit Nephrology Quin Narvaez MD [address] [place] [place] [address] 10/25/2022 Office Visit Family Medicine Nicola Prado MD [address] [place] [address] [place] [address] 11/30/2022 Office Visit Urology Denny Armando MD [address] [place] [address] [place] [address] 12/20/2022 Office Visit Dermatology Meron Aragon PA-C [address] [place] [address] [place] [address] 01/24/2023 Office Visit Rheumatology Ashley Mancilla PA-C 06/02/2023 Nurse Only Ancillary Nurse Neeraj [facility] [address] [place] [address] [place] [address] Scheduled Procedures Name Priority Associated Diagnoses Date/Ti [...] this encounter Medical Devices Implanted Type Area Court Abstractor Device Identifier Shelf Expiration Date Model / Serial / Lot Lei Agrawal 6 [id number] - [id number] Implanted:Qty: 6 on 07/10/2008 at [place] [facility] [place] [facility] [place]: Chest DO NOT USE 08/14/2012 [id number] / / [id number] documented as of this encounter Additional Health Concerns Infection Onset Date Last Indicated Resolved Time COVID-19 Immunosuppressed 05/31/2022 05/31/2022 12:19 AM EDT documented as of this encounter Advance Directives Documents on File Type Date Recorded Patient Stevedore Hold Expl anation Power of Surface Boss 06/26/2019 POWER OF A TTORNEY Advance [...] the patient have Health Care Power of Surface Boss? No Code Status History Code Status [...] patient or by statute hierarchy) Care Teams Transfusion Aide Relationship Specialty Start Date End Date Nicola Prado MD [address] [place] [address] [place] [address] PCP - General Family Medicine 06/19/21 documented as of this encounter
--- OUTSIDE RECORDS SUMMARY | 2023-02-03 20:38 | External Medical Summary | Summary of Care ---
Author Name Unknown Organization [facility] Address [address] [place] [address] Phone [phone] Care Team Providers Care Veterinary Laboratory Technician Name Role Phone Nicola Prado MD Primary Care Provide r Reason for Visit * Reason Onset Date Comments Medication Refill 08/30/2022 Encounter Details Date Type Department Care Team Description 08/30/2022 Refill Gastroenterology, [facility] [address] [place] [address] Marielena Giraldo CRNP [address] [place] [address] Allergies Active Allergy Reactions Severity Noted Date [...] 6 06/26/2021 Active Vitamin D3 1.25 MG (52639 UT) Oral Capsule Take 1 Capsule by [...] or chew 40 Tablet 2 12/17/2021 Active Telesphere NetworksTouch UltraSoft LancetsIndications :Type 2 diabetes mellitus with [...] than 8.0% ([facility]) Inject 110 Units under the skin [...] Tablet 1 05/05/2022 Active Easy Touch Pen [place] 31G X 8 MM (Insulin Pen Needle)Indications :Type 2 diabetes mellitus with hemoglobin A1c goal of less than 8.0% ([facility]),Type 2 diabetes mellitus with stage 4 chronic kidney disease, unspecified whether prison insulin use (H[facility]) Use up to six times daily with insulin. DXe11.9 600 Each 3 05/22/2022 Active Albuterol Sulfate HFA 108 (90 Base) MCG/ACT Inhalation Aerosol SolutionIndication s:COPD exacerbation ([facility]),Chronic cough Inhale [...] urinary tr act symptoms 07/13/2001 Atherosclerosis of [place] co ronary artery of [place] heart without angina pectoris Morbid obesity [...] use aero chamber. Test performed by Dori DEICER FINISHER CPFT Body mass index (BMI) of [...] 07/22/2008 0 Overview: Kianna Lyn RN [phone] Examination following surgery 07/11/2008 Difficult intubation 07/10/2008 02/19/2020 Overview: Patient seen and examined in OR#1.Possible difficult intubation.TM distance about 5 cms.MP 3-4. Will plan FOB electively Due to current situation. EXAMINATION OF PARTICIPANT IN CLINICAL TRIAL-gen omics 07/04/2008 05/30/2009 Overview: Renamed Per Clinical Trials Billing Project. Study Titile: Genomic Markers for Patients with Cardiovascular Disease Project #[id number] PI: Miriam Roque MD Please call [phone] with study related questions Chronic coronary artery [...] at goal 07/04/2008 9 GENOMICS CARDIO RESEARCH OTHER*[id number] 200803/23/2016 Overview: Renamed Per Clinical Trials Billing Project. Study Titile: Genomic Markers for Patients with Cardiovascular Disease Project #[id number] PI: Miriam Roque MD Please call [phone] with study related questions Kidney disease, chronic, [...] mRNA, LNP-s, No Pre serve, 2-Dose Series (Jaunt) 12/09/2020,05/09/2020,04/11/2020 COVID-19, LNP-s, No Preserve , Juan [...] you able to pens the vials/ syringes you have in stalk? * Telephone Encounter - Adina Zamudio RN [...] Acetate 100 MCG/ML Subcutaneous*30 mL 0 Sig: [id number] mcg under the skin in the morning. [...] you! Courtney Porras, Pharm.D. Clinical Specialty Pharmacist [facility] 08/30/2022, 9:21 AM documented in this encounter Plan of Treatment Upcoming Encounters Date Type Specialty Care Team Description 09/03/2022 Office Visit Pharmacy [address] [place] [address] 09/03/2022 Office Visit Gastroenterology Marielena Giraldo CRNP [address] [place] [address] 09/21/2022 Office Visit Cardiology Blair Hannah PA-C [address] [place] [address] 10/07/2022 Cardiac Studies Cardiology [facility] [address] [place] [address] 10/11/2022 Office Visit Sleep Disorders Eulalia Milligan DO [address] [place] [address] 10/12/2022 Office Visit Nephrology Quin Narvaez MD [address] [place] [address] [place] [address] 10/25/2022 Office Visit Family Medicine Nicola Prado MD [address] [place] [address] [place] [address] 11/30/2022 Office Visit Urology Denny Armando MD [address] [place] [address] [place] [address] 12/20/2022 Office Visit Dermatology Meron Aragon PAJovanniC [address] [place] [address] [place] [address] 01/24/2023 Office Visit Rheumatology Ashley Mancilla PA-C 06/02/2023 Nurse Only Ancillary [place], Nurse [facility] [address] [place] [address] [place] [address] Scheduled Procedures Name Priority Associated Diagnoses Date/Ti [...] this encounter Medical Devices Implanted Type Area Junior Web Developer Device Identifier Shelf Expiration Date Model / Serial / Lot Sut Steel 6 M654g - [id number] Implanted:Qty: 6 on 07/10/2008 at [place] [facility] [place]A: Chest DO NOT USE 08/14/2012 [id number] / / [id number] documented as of this encounter Additional Health Concerns Infection Onset Date Last Indicated Resolved Time COVID-19 Immunosuppressed 05/31/2022 05/31/2022 12:19 AM EDT documented as of this encounter Advance Directives Documents on File Type Date Recorded Patient Track Broom Operator Expl anation Power of Silhouette Artist 06/26/2019 POWER OF A TTORNEY Advance Directives [...] the patient have Health Care Power of Silhouette Artist? No Code Status History Code Status Date Activated Date Inactivated Comments Full Code 07/10/2008 6:37 PM 07/21/2008 4:52 PM This o rder reflects the patients wishes and were consensually agreed upon. Full Code 07/04/2008 2:18 PM 07/10/2008 6:30 PM Healthcare Agents on File Name Relationship [facility] Shane Beltran Adult Child Health Care Repr esentative (appointed verbally by patient or by statute hierarchy) Care Teams Veterinary Laboratory Technician Relationship Specialty Start Date End Date Nicola Prado MD [address] [place] [address] [place] [address] PCP - General Family Medicine 06/19/21 documented as of this encounter
--- OUTSIDE RECORDS SUMMARY | 2023-02-03 20:39 | External Medical Summary | Summary of Care ---
Author Name Unknown Organization [facility] Address [address] [place] [address] Phone [phone] Care Team Providers Care Sweatband Shaper Name Role Phone Nicola Prado MD Primary Care Provide r Reason for Visit * Reason Onset Date Comments Medication Refill 08/30/2022 Encounter Details Date Type Department Care Team Description 08/30/2022 Telephone Gastroenterology, [facility] [address] [place] [address] Marielena Hall CRNP [address] [place] [address] Medication Refill Allergies Active Allergy Reactions Severity [...] 6 06/26/2021 Active Vitamin D3 1.25 MG (47335 UT) Oral Capsule Take 1 Capsule by [...] or chew 40 Tablet 2 12/17/2021 Active Milford Auto SupplyTouch UltraSoft LancetsIndications: Type 2 diabetes mellitus with [...] mouth daily. 90 Tablet 2 01/25/2022 Active Syringe Luer Lock 25G X 5/8" 3 ML Use as directed twice daily for octreotide injections. 60 Each 1 02/22/2022 Active Isosorbide Mononitrate ER 30 MG Oral Tablet Extended Release 24 Hour (Imdur) Take 1 Tablet by mouth daily. In the morning. 90 Tablet 3 03/10/2022 Active NovoLOG FlexPen 100 UNIT/ML Subcutaneous Solution Pen-injector (insulin aspart)Indications: Type 2 diabetes mellitus with hemoglobin A1c goal of less than 8.0% ([facility]) 12 units with breakfast and supper PLUS [...] FOR OCTREOTIDE INJECTIONS 60 Each 1 02/22/2022 02/22/2023 Active Octreotide Acetate 50 MCG/ML Subcutaneous Solution Prefilled Syringe INJECT 50 MCG (1 SYRINGE) UNDER THE SKIN IN THE MORNING AND 50 MCG (1 SYRINGE) BEFORE BEDTIME. 180 mL 3 12/28/2021 12/28/2022 Active Tamsulosin HCl 0.4 MG Oral Capsule [...] Tablet 1 05/05/2022 Active Easy Touch Pen [place] 31G X 8 MM (Insulin Pen Needle)Indications: [...] Additional Information Patient not taking.Reported on 08/11/2022 Hospital, Clinic, or Other Facility Administered Medication [...] urinary tr act symptoms 07/13/2001 Atherosclerosis of [place] co ronary artery of [place] heart without angina pectoris Morbid obesity with [...] TIA (transient ischemic attack) 02/04/2016 11/23/2017 Overview: [facility] Anemia of chronic renal [...] MANAGEMENT 07/22/2008 0 Overview: Kianna Lyn, RN [phone] Examination following surgery 07/11/2008 Difficult intubation 07/10/2008 02/19/2020 Overview: Patient seen and examined in OR#1.Possible difficult intubation.TM distance about 5 cms.MP 3-4. Will plan FOB electively Due to current situation. EXAMINATION OF PARTICIPANT IN CLINICAL TRIAL-gen omics 07/04/2008 05/30/2009 Overview: Renamed Per Clinical Trials Billing Project. Study Titile: Genomic Markers for Patients with Cardiovascular Disease Project #[id number] PI: Miriam Roque MD Please call [phone] with study related questions Chronic coronary artery [...] at goal 07/04/2008 9 GENOMICS CARDIO RESEARCH OTHER*[id number] 200803/23/2016 Overview: Renamed Per Clinical Trials Billing Project. Study Titile: Genomic Markers for Patients with Cardiovascular Disease Project #[id number] PI: Miriam Roque MD Please call [phone] with study related questions Kidney disease, chronic, [...] * Telephone Encounter - Manda Porras [facility] - 08/30/2022 9:14 AM EDT Maurisio Holley was scheduled to have his octreotide syringes ship out today, however syringes are currently on backorder. Syringes are anticipated (but not guaranteed) to return to stock on 09/10/22. Octreotidevials are also on backorder with no anticipated return to stock date. Please advise. Thank you! Courtney Porras, Pharm.D. Clinical Specialty Pharmacist [facility] 08/30/2022, 9:21 AM documented in this encounter Plan of Treatment Upcoming Encounters Date Type Specialty Care Team Description 09/03/2022 Office Visit Pharmacy [address] [place] [address] 09/03/2022 Office Visit Gastroenterology Marielena Hall CRNP [address] [place] [address] 09/21/2022 Office Visit Cardiology Blair Hannah PA-C [address] [place] [address] 10/07/2022 Cardiac Studies Cardiology Keith Pickard [facility] [address] [place] [address] 10/11/2022 Office Visit Sleep Disorders Eulalia Milligan DO [address] [place] [address] 10/12/2022 Office Visit Nephrology Quin Narvaez MD [address] [place] [address], [place] [address] 10/25/2022 Office Visit Family Medicine Nicola Prado MD [address] [place] [address] [place] [address] 11/30/2022 Office Visit Urology Denny Armando MD [address] [place] [address] [place] [address] 12/20/2022 Office Visit Dermatology Meron Aragon PA-C [address] [place] [address] [place] [address] 01/24/2023 Office Visit Rheumatology Ashley Mancilla PA-C 06/02/2023 Nurse Only Ancillary Movjoeey, Nurse [facility] [address] [place] [address] [place] [address] Scheduled Procedures Name Priority Associated Diagnoses Date/Ti [...] this encounter Medical Devices Implanted Type Area Single Corner Cutter Device Identifier Shelf Expiration Date Model / Serial / Lot Sut Steel 6 M654g - [id number] [place]planted:Q[place] 6 on [place] [facility] [place]: Chest DO NOT USE 08/14/2012 [id number] / / [id number] documented as of this encounter Additional Health Concerns Infection Onset Date Last Indicated Resolved Time COVID-19 Immunosuppressed 05/31/2022 05/31/2022 12:19 AM EDT documented as of this encounter Advance Directives Documents on File Type Date Recorded Patient Senior Product Analyst Expl anation Power of Psych Assistant 06/26/2019 POWER OF A TTORNEY Advance [...] the patient have Health Care Power of Psych Assistant? No Code Status History Code Status [...] or by statute hierarchy) Care Teams Sweatband Shaper Relationship Specialty Start Date End Date Nicola Prado MD [address] [place] [address] [place] [address] PCP - General Family Medicine 06/19/21 documented as of this encounter
--- OUTSIDE RECORDS SUMMARY | 2023-02-03 20:39 | External Medical Summary | Summary of Care ---
Author Name Unknown Organization [facility] Address [address] [place] [address] Phone [phone] Care Team Providers Care Mems Device Scientist Name Role Phone Nicola Prado MD Primary Care Provide r Reason for Visit * Reason Onset Date Comments Medication Refill 08/30/2022 Encounter Details Date Type Department Care Team Description 08/30/2022 Telephone Gastroenterology, [facility] [address] [place] [address] Marielena Giraldo CRNP [address] [place] [address] Medication Refill Allergies Active Allergy Reactions Severity [...] 6 06/26/2021 Active Vitamin D3 1.25 MG (15949 UT) Oral Capsule Take 1 Capsule by [...] or chew 40 Tablet 2 12/17/2021 Active VidRocketTouch UltraSoft LancetsIndications :Type 2 diabetes mellitus with [...] 8.0% ([facility]) Inject 110 Units under the skin [...] Tablet 1 05/05/2022 Active Easy Touch Pen [place] 31G X 8 MM (Insulin Pen Needle)Indications :Type 2 diabetes mellitus with hemoglobin A1c goal of less than 8.0% ([facility]),Type 2 diabetes mellitus with stage 4 chronic kidney disease, unspecified whether half-way insulin use ([facility]) Use up to six times daily with insulin. DXe11.9 600 Each 3 05/22/2022 Active Albuterol Sulfate HFA 108 (90 Base) MCG/ACT Inhalation Aerosol SolutionIndication s:COPD exacerbation ([facility]),Chronic [...] for octreotide injections. 60 Each 1 08/30/2022 Active Octreotide Acetate 50 MCG/ML Subcutaneous Solution Prefilled Syringe Inject 50mcg under skin in the morning and before bedtime 180 mL 3 08/30/2022 Active Syringe Luer Lock 25G X 5/8" 3 ML Use as directed twice daily for octreotide injections. 60 Each 1 02/22/2022 3 Discontinue d(Refill) Octreotide Acetate 50 MCG/ML Subcutaneous Solution Prefilled Syringe INJECT 50 MCG (1 SYRINGE) UNDER THE SKIN IN THE MORNING AND 50 MCG (1 SYRINGE) BEFORE BEDTIME. 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 Test performed by Dori FABRIC DESIGNER CPFT Body mass index (BMI) of 45.0 [...] 02/04/2016 11/23/2017 Overview: [facility] Anemia of chronic renal failure 07/30/2015 01/27/2017 [...] MANAGEMENT 07/22/2008 0 Overview: Kianna Lyn RN [phone] Examination following surgery 07/11/2008 Difficult intubation 07/10/2008 02/19/2020 Overview: Patient seen and examined in OR#1.Possible difficult intubation.TM distance about 5 cms.MP 3-4. Will plan FOB electively Due to current situation. EXAMINATION OF PARTICIPANT IN CLINICAL TRIAL-gen omics 07/04/2008 05/30/2009 Overview: Renamed Per Clinical Trials Billing Project. Study Titile: Genomic Markers for Patients with Cardiovascular Disease Project #[id number] PI: Miriam Roque MD Please call [phone] with study related questions Chronic coronary artery [...] at goal 07/04/2008 9 GENOMICS CARDIO RESEARCH OTHER*[id number] 200803/23/2016 Overview: Renamed Per Clinical Trials Billing Project. Study Titile: Genomic Markers for Patients with Cardiovascular Disease Project #[id number] PI: Miriam Roque MD Please call [phone] with study related questions Kidney disease, chronic, [...] mRNA, LNP-s, No Pre serve, 2-Dose Series (Vital Metrix) 12/09/2020,05/09/2020,04/11/2020 COVID-19, LNP-s, No Preserve , Juan [...] encounter Miscellaneous Notes * Addendum Note - Marielena Giraldo, FRANCHESKA - 08/30/2022 10:51 AM EDTAddended by: MARIELENA GIRALDO on: 08/30/2022 10:51 AM Modules accepted: Orders * Telephone Encounter - FRANCHESKA Collins - 08/30/2022 10:51 AM EDT Rx sent to [facility]. Nurses - can you pls follow up [...] you! Courtney Porras, Pharm.D. Clinical Specialty Pharmacist [facility] 08/30/2022, 9:21 AM documented in this encounter Plan of Treatment Upcoming Encounters Date Type Specialty Care Team Description 09/03/2022 Office Visit Pharmacy [address] [place] [address] 09/03/2022 Office Visit Gastroenterology Marielena Giraldo CRNP [address] [place] [address] 09/21/2022 Office Visit Cardiology Blair Hannah PA-C [address] [place] [address] 10/07/2022 Cardiac Studies Cardiology Keith Pickard [facility] [address] [place] [address] 10/11/2022 Office Visit Sleep Disorders Eulalia Milligan DO [address] [place] [address] 10/12/2022 [facility] [address] [facility] [address] 10/25/2022 Office Visit Family Medicine Nicola Prado MD [address] [place] [address] [place] [address] 11/30/2022 Office Visit Urology Denny Armando MD [address] [place] [address] [place] [id number] 12/20/2022 Office Visit Dermatology Meron Aragon PA-C [address] [place] [address] [place] [address] 01/24/2023 Office Visit Rheumatology Ashley Mancilla PA-C 06/02/2023 Nurse Only Ancillary Nurse Neeraj Annual [address] [place] [address] Scheduled Procedures Name Priority Associated Diagnoses Date/Ti [...] this encounter Medical Devices Implanted Type Area Wall Attendant Device Identifier Shelf Expiration Date Model / Serial / Lot Sut Steel 6 M654g - [id number] Implanted:Qty: 6 on 07/10/2008 at [place] [facility] [place]/A: Chest DO NOT USE 08/14/2012 [id number] / / [id number] documented as of this encounter Additional Health Concerns Infection Onset Date Last Indicated Resolved Time COVID-19 Immunosuppressed 05/31/2022 05/31/2022 12:19 AM EDT documented as of this encounter Advance Directives Documents on File Type Date Recorded Patient Salt Cutter Expl anation Power of Trust Advisor 06/26/2019 POWER OF A TTORNEY Advance [...] the patient have Health Care Power of Trust Advisor? No Code Status History Code Status [...] patient or by statute hierarchy) Care Teams Mems Device Scientist Relationship Specialty Start Date End Date Nicola Prado MD [address] [place] [address] [place] [address] PCP - General Family Medicine 06/19/21 documented as of this encounter
--- OUTSIDE RECORDS SUMMARY | 2023-02-03 20:39 | External Medical Summary | Summary of Care ---
Author Name Unknown Organization [facility] Address [address] [place] [address] Phone [phone] Care Team Providers Care Supervisor Type Disk Quality Control Name Role Phone Daisha Menard MD Primary Care Provide r Reason for Visit * Reason Comments Chronic Kidney Disease (CKD) Encounter Details Date Type Department Care Team Description 08/11/2022 Office Visit Nephrology, [facility] [address] [facility] [address] Quin Narvaez MD [address] [facility] [address] ESA (acute kidney injury) (HCC)*; Stage 3b chronic kidney disease (HCC); Proteinuria, unspecified type; HTN, goal below 130/80; Hyperuricemia; Anemia in stage 4 chronic kidney disease (HCC) Allergies Active Allergy Reactions Severity Noted Date Comments Hydromorphone High 09/20/2021 Other reaction(s): Nausea Other reaction(s): Nausea 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/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 Other reaction(s): AMS Other reaction(s): AMS Prasugrel 04/02/2016 bleeding Prednisone High 09/20/2021 Other reaction(s): INCREASE BLOOD SUGAR Other reaction(s): INCREASE BLOOD SUGAR documented as of this encounter (statuses as of 08/29/2022) Medications Medication Sig Dispensed Refills Start Date [...] depressive disorder without prior episode ([facility]) Take 1 tablet by mouth daily [...] 6 06/26/2021 Active Vitamin D3 1.25 MG (81141 UT) Oral Capsule Take 1 Capsule by [...] or chew 40 Tablet 2 12/17/2021 Active Dead Inventory Management SystemTouch UltraSoft LancetsIndications: Type 2 diabetes mellitus with hemoglobin A1c goal of less than 8.0% ([facility]) Test blood sugar up to five times daily; dx E11.9 450 Each 3 12/17/2021 Active OneTouch Ultra In Vitro Strip (Glucose Blood)Indications:T ype 2 diabetes mellitus with hemoglobin A1c goal of less than 8.0% ([facility]) 3-4 times a day 450 Strip [...] than 8.0% ([facility]) 12 units with breakfast and [...] Tablet 1 05/05/2022 Active Easy Touch Pen [place] 31G X 8 MM (Insulin Pen Needle)Indications: Type 2 diabetes mellitus with hemoglobin A1c goal of less than 8.0% ([facility]),Type 2 diabetes mellitus with stage 4 chronic kidney disease, unspecified whether long term care phlebotomist insulin use (HCC) Use up to six times daily with insulin. DXe11.9 600 Each 3 05/22/2022 Active Albuterol Sulfate HFA 108 (90 Base) MCG/ACT Inhalation Aerosol SolutionIndications :COPD exacerbation ([facility]),Chronic cough [...] as of this encounter (statuses as of 08/29/2022) Active Problems Problem Noted Date Hypertensive heart [...] urinary tr act symptoms 07/13/2001 Atherosclerosis of [place] ronary artery of [place] heart without angina pectoris Morbid obesity with BMI of 45.0-49.9, ad ult documented as of this encounter (statuses as of 08/29/2022) Resolved Problems Problem Noted Date Resolved Date [...] MANAGEMENT 07/22/2008 0 Overview: Kianna Lyn RN [phone] Examination following surgery 07/11/2008 Difficult intubation 07/10/2008 02/19/2020 Overview: Patient seen and examined in OR#1.Possible difficult intubation.TM distance about 5 cms.MP 3-4. Will plan FOB electively Due to current situation. EXAMINATION OF PARTICIPANT IN CLINICAL TRIAL-gen omics 07/04/2008 05/30/2009 Overview: Renamed Per Clinical Trials Billing Project. Study Titile: Genomic Markers for Patients with Cardiovascular Disease Project #[id number] PI: Miriam Roque MD Please call [phone] with study related questions Chronic coronary artery [...] at goal 07/04/2008 9 GENOMICS CARDIO RESEARCH OTHER*[id number] 200803/23/2016 Overview: Renamed Per Clinical Trials Billing Project. Study Titile: Genomic Markers for Patients with Cardiovascular Disease Project #[id number] PI: Miriam Roque MD Please call [phone] with study related questions Kidney disease, chronic, stage III (GFR 30-59 ml /min) 07/03/2008 01/07/2009 Benign neoplasm of colon 10/10/2007 04/24/2 018 Overview: hyperplastic/repeat colnoscopy in 2 yrs [...] as of this encounter (statuses as of 08/29/2022) Immunizations Name Administration Dates Next Due COVID-19 mRNA, LNP-s, No Pre serve, 2-Dose Series (Nogacom) 12/09/2020,05/09/2020,04/11/2020 COVID-19, LNP-s, No Preserve , Juan [...] Sign Reading Time Taken Comments Blood Pressure 135/67 08/11/2022 12:32 PM EDT Pulse 66 08/11/2022 12:32 PM EDT Temperature 36 C (96.8 F) 08/11/2022 12:29 PM EDT Respiratory Rate 18 08/11/2022 12:29 PM EDT Oxygen Saturation - - Inhaled Oxygen Concentration - - Weight 117.9 kg (260 lb) 08/11/2022 12:29 PM EDT Height - - Body Mass Index 44.63 07/21/2022 5:13 PM EDT documented in this encounter Patient Instructions * Patient Instructions* Quin Narvaez MD - 08/11/2022 1:02 PM EDT -no medication changes today -be sure to reach out to pharmacy about your blood sugars dropping and medication changes -labs today -if labs still off, may need renal ultrasound documented in this encounter Progress Notes * Quin Narvaez MD - 08/11/2022 12:28 PM EDT NEPHROLOGY CLINIC NOTE Nephrology, [address] [facility] [address] 08/11/2022, 12:28 PM Patient Name: Maurisio Beltran BACKGROUND: 81 year old male presents for f/u of CKD4 andminimal albuminuriasecondary to diabetes (on insulin), HTN, and tobacco. Past Medical history includes patient with tobacco use until 1997. Also was diagnosed diabetes in 1997. With HTN for years.PMH also includesCAD with coronary bypass grafting surgery x3 in 2008, with multiple PCIs to the RCA and patent RCA stents,coronary stents placed x 4 in 2013,and 2 patent grafts by cardiac catheterization in August 2016. H/o nsaid use. Took otc nsaids remotely for years. Patient with chronic iron deficiency anemia and followed by Julia.Also with KATHE and on CPAP. H/opsoriatic arthritis,follows w/ rheum; on enbrel. Also w/ gout, recurrent prostate CA w/ LUTS follows w/ Dr Armando on intermittent androgen deprivation, glaucoma > marked visual impairment. Admitted 11/13-11/18/2017for COPD versus HF/exacerbation. Admitted [facility] 05/08-05/11/18for COPD exacerbatoin; kidney function stayed at baseline. April 2019 hadgout flare, used nsaids. Pacemaker placed 01/2020 Hospitalized september 2019 w/ severe anemia.was on .- Follow with hematology and completes frequent labs. Venofer load andpRBC transfusion as needed Hospitalzed in spring 2021 with 3 infections all at the same time- Ciff,UTI, and Novovirus 2021 dx of Prostate Cancer- had bone scanslight increased size of lymph nodes.Bone scan showed no suspicious uptake.and clear some swollen lymph nodeinflammation but unsure of involvment.Tx options not yet determined given prev txs and other cormorbidites-Scan completed in September for further tx plan No NSAID use. No hx of renal stones. Son on Dialysis Enjoys mowing - summer 2018 mowed30 acres at son's farm and 3 acres at home. TODAY 08/11/22: BROUGHT IN FOR sooner appt d/t woirsening renal function, w/ creatinine going from high [...] evening as well. THis isnew. Travelled to a few wks back >> 2 X [...] edema. Some concerns about low BG recently. REVIEW OF SYSTEMS General: No fatigue, No change in weight Head: No significant headache Respiratory: No cough,+wheezing,+ shortness of breath Cardiovascular:No [...] 30 Tablet 6 Vitamin D3 1.25 MG (17717 UT) Oral Capsule Take 1 Capsule by mouth in the morning. CPAP every night at bedtime . 2 Liters Baclofen 20 MG Oral Tablet one pill three times a day as needed for tight muscles 30 Tablet 0 Simethicone 80 MG Oral Tablet Chewable (Mylicon) [...] cut, crush or chew 40 Tablet 2 Xiidra 5 % Ophthalmic Solution instill 1 [...] skin in the morning. 63 mL 3 Octreotide Acetate 50 MCG/ML Subcutaneous Solution Prefilled Syringe INJECT 50 MCG (1 SYRINGE) UNDER THE SKIN IN THE MORNING AND 50 MCG (1 SYRINGE) BEFORE BEDTIME. 180 mL 3 Tamsulosin HCl 0.4 MG Oral [...] mouth in the morning. 90 Tablet 1 Diclofenac Sodium 1 % External Gel (Voltaren) Apply topically to affected area 2 g in the morning AND 2 g before bedtime. Apply to affected area of lower back up to twice a day as needed for pain. Wash hands after.. (Patient not taking: Reported on 08/11/2022) 100 g 1 OneTouch UltraSoft Lancets Test blood sugar up to five times daily; dx E11.9 450 Each 3 OneTouch Ultra In Vitro Strip (Glucose Blood) 3-4 times a day 450 Strip 3 Syringe Luer Lock 25G X 5/8" 3 ML Use as directed twice daily for octreotide injections. 60 Each 1 Syringe/Needle (Disp) 25G X 5/8" 3 ML USE DIRECTED TWICE DAILY FOR OCTREOTIDE INJECTIONS 60 Each 1 Easy Touch Pen Noxen 31G X 8 MM (Insulin Pen Needle) Use up to six times daily with insulin. DXe11.9 600 Each 3 Albuterol Sulfate HFA 108 (90 Base) MCG/ACT Inhalation Aerosol Solution Inhale by mouth 2 Puffsevery 4 hours as needed for Cough or Shortness of Breath. Reports doesn't help (Patient not taking:Reported on 08/11/2022) 18 g 2 Etanercept 50 MG/ML Subcutaneous Solution Auto-injector (Enbrel Sureclick) Inject 50 mg under the skin once a week. (Patient not taking: Reported on 08/11/2022) 4 mL 1 Current Facility-Administered Medications Medication Dose Route Frequency Provider Last Rate Last Admin Albuterol Sulfate (Proventil) (2.5 MG/3ML) 0.083% inhalation solution 2.5 mg 2.5 mg Nebulizer PRN Al Mccrary PA-C Albuterol Sulfate (Proventil) (5 MG/ML) 0.5% *conc* inhalation solution 2.5 mg 2.5 mg NebulizerPRN Al Mccrary PA-C PHYSICAL EXAMINATION: BP Readings from Last 6 Encounters: 08/11/22 135/67 07/21/22 130/70 05/31/22 124/60 05/28/22 128/70 05/28/22 128/70 05/10/22 140/80 Wt Readings from Last 6 Encounters: 08/11/22 117.9 kg (260 lb) 07/21/22 118.4 kg (261 lb) 05/28/22 119.3 kg (263 lb) 05/28/22 119.7 kg (263 lb 12.8 oz) 05/06/22 119.8 kg (264 lb 3.2 oz) 04/22/22 119.4 kg (263 lb 3.2 oz) Pulse Readings from Last 6 Encounters: 08/11/22 66 07/21/22 98 05/31/22 88 05/28/22 94 05/28/22 94 05/10/22 80 NAD, oriented x 3, ambulatory w/o asst, obeise Normocephalic, atraumatic, eomi nonicteric sclerae, visually impaired now MMM Supple neck RRR w/o m/g/r; 1-2+ BL L>R ankle edema CTAB w/ reasonable air mvt NT abd, +BS, soft No cyanosis or clubbing No rash No tremor, focal or global weakness; fluent speech, good historian LABS: Recent Labs Units 08/11/22 1314 08/02/22 1320 07/22/22 0918 SODIUM - [facility] mmol/L 138 135 141 POTASSIUM - [facility] mmol/L 4.1 4.7 4.3 CHLORIDE - [facility] mmol/L 99 98 101 CO2 - [facility] mmol/L 30 24 22 BUN - [facility] mg/dL 29* 39* 30* CREATININE - [facility] mg/dL 2.0* 2.8* 2.1* ESTIMATED GLOMERULAR FILTRATION RATE - [facility] mL/min 33* 22* 32* Latest Reference Range & Units 08/05/21 13:53 08/20/21 09:05 09/16/21 10:55 10/14/21 12:42 10/22/21 09:45 11/09/21 09:49 11/23/21 10:14 02/16/22 09:39 03/22/22 13:36 04/22/22 11:29 07/22/22 09:18 Creatinine 0.6 - 1.2 mg/dL 1.7 (H) 2.1 (H) 2.0 (H) 2.4 (H) 2.0 (H) 2.0 (H) 2.2 (H) 2.2 (H) 1.9 (H) 1.8 (H) 2.1 (H) Estimated Glomerular Filtration Rate >=60 mL/min 40 (L) 32 (L) 34 (L) 27 (L) 33 (L) 34 (L) 31 (L) 31 (L) 36 (L) 37 (L) 32 (L) Recent Labs Units 08/11/22 1314 08/02/22 1320 07/26/22 1250 06/16/22 1106 06/16/22 1033 03/12/22 1611 03/05/22 1115 02/22/22 1116 02/16/22 0939 HGB - [facility] g/dL 11.5* 10.4* 10.2* < > 11.3* < > -- < > -- HEMOGLOBIN-OUTSIDE LAB -- -- -- < > -- -- -- -- -- FERRITIN - [facility] ng/mL -- -- -- -- 185 -- 854* -- 337 TRANSFERRIN SATURATION PERCENT - [facility] % -- -- -- -- 20 -- 38 -- 24 < > = values in this interval not displayed. Recent Labs Units 08/11/22 1314 08/02/22 1320 07/22/22 0918 06/29/21 1011 06/19/21 1037 CALCIUM - [facility] mg/dL 9.2 8.7 8.5 < > -- PHOSPHORUS - [facility] mg/dL -- 4.1 -- -- 3.2 25-HYDROXY VITAMIN D - [facility] ng/mL -- 31 -- -- 22 PTH - [facility] pg/mL 79* 131* -- -- 87* < > = values in this interval not displayed. Latest Reference Range & Units 12/14/19 12:04 01/23/20 12:11 03/18/20 15:32 02/16/21 12:03 01/18/22 11:33 Uric Acid 3.4 - 7.0 mg/dL 7.1 (H) 6.3 5.2 6.0 5.1 (H): Data is abnormally high Recent Labs Units 04/22/22 1129 10/22/21 0945 02/16/21 1203 HEMOGLOBIN A1C - [facility] % 7.2* 5.8* 6.1* Recent Labs Units 04/22/22 [...] - [facility] /HPF 0-2 0-2 3-5* 0-2 Ct a/p april 2022 Lungs: Minimal dependent changes are present [...] of findings as described. ASSESSMENT AND PLAN: ESA (acute kidney injury) (HCC) (Primary) Stage 3b chronic kidney disease (HCC) Proteinuria, unspecified type - BASIC METABOLIC PANEL; Future; Expected date: 08/11/2022 HTN, goal below 130/80 Hyperuricemia Anemia in stage 4 chronic kidney disease (HCC) - BASIC METABOLIC PANEL; Future; Expected date: 08/11/2022 Follow Up: Return in about 8 weeks (around 10/06/2022) for clinic visit mirza HAJI. | For: clinic visit mirza HAJI | Check-out note: To lab Keep September appt w/ me ESA of unclear etiology based on July creatinine above > ? Relation to gross hematuria and abtx a few weeks back. Volume status stableand chemistries ok. -recheck labs today >>these have thankfully returned to baseline -continue losartan for now CKD 3B At baseline w/ 1100 albuminuria as of April 2022. Patient risk of progression to kidney failure requiring dialysis or transplant based on the 4-variable Kidney Failure Risk Equation (Tangri et al. KIAH 2011) using baseline eGFR 32 (no t ESA today): At 2 years 8% At 5 years 24% -labs today -losartan dose OK >>loot to introduce SGLT2i > but would do once BG better settled BP on higher side recently > just above goal about 50% of time -cont lasix, losartan current doses -recheck status depending on labs Uric acid at goal on allopurinol based on 01/2022 lab > cont current dose Hematology follows for anemia > at least as of 12/2021; no upcoming appts; above need for CHANDLER currently I spent a total of 40-54 minutes (exact time 45 mins) on the date of service in preparation, delivery, and documentation of the care provided to Maurisio Beltran excluding any time spent in the performance of separately billed services. Patient Instructions -no medication changes today -be sure to reach out to pharmacy about your blood sugars dropping and medication changes -labs today -if labs still off, may need renal ultrasound Quin Narvaez MD Nephrology, [address] [place] [address] CC: Ref: DAISHA MENARD[[id number]] [address] [place] [address] [place] [address] (office) [phone] (fax) PCP: DAISHA MENARD [address] [place] [address] [place] [address] [phone] This chart was completed in part utilizing [employer] Speech Voice Recognition Software. Randomword insertions, pronoun errors, and incomplete sentences are an occasional consequence of this system due to software limitations, and ambient noise. Any questions or concerns about the content, text, or information contained within the body of this dictation should be directly addressed to the provider for clarification. documented in this encounter Nursing Notes * Radha Hammer RN - 08/11/2022 12:30 PM EDT Follow up appointment to day for CKD. No recent illness or hospital stays. States a nurse checks his bp at home every 2 weeks. documented in this encounter Plan of Treatment Upcoming Encounters Date Type Specialty Care Team Description 09/03/2022 Office Visit [address] [place] [address] 09/03/2022 Office Visit Gastroenterology Marielena Hall CRNP [address] [place] [address] 09/21/2022 Office Visit Cardiology Blair Hannah PA-C [address] [place] [address] 10/07/2022 Cardiac Studies Cardiology [facility], Pacer [facility] [address] [place] [address] 10/11/2022 Office Visit Sleep Disorders Eulalia Milligan DO [address] [place] [address] 10/12/2022 Office Visit Nephrology Quin Narvaez MD [address] [place] [address] [place] [address] 10/25/2022 Office Visit Family Medicine Daisha Menard MD [address] [place] [address] [place] [address] 11/30/2022 Office Visit Urology Denny Armando MD [address] [place] [address] [place] [address] 12/20/2022 Office Visit Dermatology Meron Aragon, PA-C [address] [place] [address] [place] [address] 01/24/2023 Office Visit Rheumatology Ashley Mancilla PA-C 06/02/2023 Nurse Only Ancillary [place], Nurse Annual Wellness [address] [place] [address] [place] [address] Scheduled Procedures Name Priority Associated Diagnoses Date/Ti [...] this encounter Medical Devices Implanted Type Area Programming Development Project Manager Device Identifier Shelf Expiration Date Model / Serial / Lot Sut Steel 6 [id number] - [id number] Implanted:Qty: 6 on 07/10/2008 at OR [facility] N/A: Chest DO NOT USE 08/14/2012 [id number] / / [id number] documented as of this encounter Visit Diagnoses Diagnosis ESA (acute kidney injury) (HCC)- Primary Acute kidney failure, unspecified Stage 3b chronic kidney disease (HCC) Proteinuria, unspecified type HTN, goal below 130/80 Unspecified essential hypertension Hyperuricemia Other abnormal blood chemistry Anemia in stage 4 chronic kidney disease (HCC) documented in this encounter Additional Health Concerns Infection Onset Date Last Indicated Resolved Time COVID-19 Immunosuppressed 05/31/2022 05/31/2022 documented as of this encounter Advance Directives Documents on File Type Date Recorded Patient Gear Straightener Expl anation Power of Healthcare Specialist 06/26/2019 POWER OF A TTORNEY Advance [...] the patient have Health Care Power of Healthcare Specialist? No Code Status History Code Status [...] or by statute hierarchy) Care Teams Supervisor Type Disk Quality Control Relationship Specialty Start Date End Date Daisha Menard MD [address] [place] [address] [place] [address] PCP - General Family Medicine 06/19/21 documented as of this encounter
--- OUTSIDE RECORDS SUMMARY | 2023-02-03 20:39 | External Medical Summary | Summary of Care ---
Author Name Unknown Organization [facility] Address [address] [place] [address] Phone [phone] Care Team Providers Care Process Safety Engineering Technologist Name Role Phone Nicola Prado MD Primary Care Provide r Reason for Visit * Reason Onset Date Comments Medication Refill 08/30/2022 Encounter Details Date Type Department Care Team Description 08/30/2022 Telephone Gastroenterology, [facility] [address] [place] [address] Marielena Giraldo CRNP [address] [place] [address] Medication Refill Allergies Active Allergy Reactions Severity [...] 6 06/26/2021 Active Vitamin D3 1.25 MG (00504 UT) Oral Capsule Take 1 Capsule by [...] or chew 40 Tablet 2 12/17/2021 Active Gogii GamesTouch UltraSoft LancetsIndications :Type 2 diabetes mellitus with [...] Tablet 1 05/05/2022 Active Easy Touch Pen [place] 31G X 8 MM (Insulin Pen Needle)Indications :Type 2 diabetes mellitus with hemoglobin A1c goal of less than 8.0% ([facility]),Type 2 diabetes mellitus with stage 4 chronic kidney disease, unspecified whether longterm insulin use ([facility]) Use up to six times daily with insulin. DXe11.9 600 Each 3 05/22/2022 Active Albuterol Sulfate HFA 108 (90 Base) MCG/ACT Inhalation Aerosol SolutionIndication s:COPD exacerbation ([facility]),Chronic cough [...] tr act symptoms 07/13/2001 Atherosclerosis of [place] ronary artery of [place] heart without angina pectoris Morbid obesity with [...] aero chamber. Test performed by Dori SUPERVISOR FURNACE ROOM CPFT Body mass index (BMI) of 45.0 [...] TIA (transient ischemic attack) 02/04/2016 11/23/2017 Overview: [facility] Anemia of chronic renal failure [...] 07/22/2008 0 Overview: Kianna Lyn, RN [phone] Examination following surgery 07/11/2008 Difficult intubation 07/10/2008 02/19/2020 Overview: Patient seen and examined in OR#1.Possible difficult intubation.TM distance about 5 cms.MP 3-4. Will plan FOB electively Due to current situation. EXAMINATION OF PARTICIPANT IN CLINICAL TRIAL-gen omics 07/04/2008 05/30/2009 Overview: Renamed Per Clinical Trials Billing Project. Study Titile: Genomic Markers for Patients with Cardiovascular Disease Project #[id number] PI: Miriam Roque MD Please call [phone] with study related questions Chronic coronary artery [...] at goal 07/04/2008 9 GENOMICS CARDIO RESEARCH OTHER*[id number] 200803/23/2016 Overview: Renamed Per Clinical Trials Billing Project. Study Titile: Genomic Markers for Patients with Cardiovascular Disease Project #[id number] PI: Miriam Roque MD Please call [phone] with study related questions Kidney disease, chronic, [...] mRNA, LNP-s, No Pre serve, 2-Dose Series (BooRah) 12/09/2020,05/09/2020,04/11/2020 COVID-19, LNP-s, No Preserve , Juan [...] Zamudio RN - 08/30/2022 12:45 PM EDT [facility] speciality are you able to transfer to another specialty pharmacy? * Addendum Note - Adina Zamudio RN [...] you! Courtney Porras, Pharm.D. Clinical Specialty Pharmacist [facility] 08/30/2022, 9:21 AM documented in this encounter Plan of Treatment Upcoming Encounters Date Type Specialty Care Team Description 09/03/2022 Office Visit Pharmacy [address] [place] [address] 09/03/2022 Office Visit Gastroenterology Marielena Giraldo CRNP [address] [place] [address] 09/21/2022 Office Visit Cardiology Blair Hannah PA-C [address] [place] [address] 10/07/2022 Cardiac Studies [facility] [address] [place] [address] 10/11/2022 Office Visit Sleep Disorders Eulalia Milligan DO [address] [place] [address] 10/12/2022 Office Visit Nephrology Quin Narvaez MD [address] [facility] [place] [address] 10/25/2022 Office Visit Family Medicine Nicola Prado MD [address] [place] [address] [place] [address] 11/30/2022 Office Visit Urology Denny Armando MD [address] [place] [address] [place] [address] 12/20/2022 Office Visit Dermatology Meron Aragon PA-C [address] [place] [address] [place] [address] 01/24/2023 Office Visit Rheumatology Ashley Mancilla PA-C 06/02/2023 Nurse Only Ancillary [place], Nurse Annual Wellness [address] [place] [address] [place] [address] Scheduled Procedures Name Priority Associated Diagnoses Date/Ti [...] this encounter Medical Devices Implanted Type Area Kosher Dietary Service Supervisor Device Identifier Shelf Expiration Date Model / Serial / Lot Sut Steel 6 [id number] - [id number] Implanted:Qty: 6 on 07/10/2008 at OR [facility] N/A: Chest DO NOT USE 08/14/2012 [id number] / / [id number] documented as of this encounter Additional Health Concerns Infection Onset Date Last Indicated Resolved Time COVID-19 Immunosuppressed 05/31/2022 05/31/2022 12:19 AM EDT documented as of this encounter Advance Directives Documents on File Type Date Recorded Patient Section 8 Property Manager Expl anation Power of Powder Monkey 06/26/2019 POWER OF A TTORNEY Advance Directives [...] the patient have Health Care Power of Powder Monkey? No Code Status History Code Status Date [...] patient or by statute hierarchy) Care Teams Process Safety Engineering Technologist Relationship Specialty Start Date End Date Nicola Prado MD [address] [place] [address] [place] [address] PCP - General Family Medicine 06/19/21 documented as of this encounter
--- OUTSIDE RECORDS SUMMARY | 2023-02-03 20:39 | External Medical Summary | Summary of Care ---
Author Name Unknown Organization [facility] Address [address] [place] [address] Phone [phone] Care Team Providers Care Outbound Telemarketing Representative Name Role Phone Daisha Menard MD Primary Care Provide r Reason for Visit * Reason Comments Cystoscopy Encounter Details Date Type Department Care Team Description 08/13/2022 Procedure Only Urology Luaren Peguero [address] [place] [address] [place] [id number] Denny Armando MD [address] [place] [address] [place] [address] Prostate cancer (HCC)*; Hematuria, gross; Lower urinary tract symptoms; Rising PSA following treatment for malignant neoplasm of prostate; Stage 3a chronic kidney disease (HCC) Allergies Active Allergy Reactions Severity Noted Date Comments Hydromorphone High 09/20/2021 Other reaction(s): Nausea Other reaction(s): Nausea 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/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 Other reaction(s): AMS Other reaction(s): AMS Prasugrel 04/02/2016 bleeding Prednisone High 09/20/2021 Other reaction(s): INCREASE BLOOD SUGAR Other reaction(s): INCREASE BLOOD SUGAR documented as of this encounter (statuses as of 08/13/2022) Medications Medication Sig Dispensed Refills Start Date [...] depressive disorder without prior episode ([facility]) Take 1 tablet by mouth [...] 6 06/26/2021 Active Vitamin D3 1.25 MG (37165 UT) Oral Capsule Take 1 Capsule by [...] or chew 40 Tablet 2 12/17/2021 Active 30 Second ShowcaseTouch UltraSoft LancetsIndications: Type 2 diabetes mellitus with [...] 8.0% ([facility]) Inject 110 Units under the [...] Tablet 1 05/05/2022 Active Easy Touch Pen [place] 31G X 8 MM (Insulin Pen Needle)Indications: Type 2 diabetes mellitus with hemoglobin A1c goal of less than 8.0% ([facility]),Type 2 diabetes mellitus with stage 4 chronic kidney disease, unspecified whether 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 DXe11.9 600 Each 3 05/22/2022 Active Albuterol Sulfate HFA 108 (90 Base) MCG/ACT Inhalation Aerosol SolutionIndications :COPD exacerbation ([facility]),Chronic cough [...] 2.5 mg NEBULIZER PRN 05/18/2022 05/18/2023 Active sulfamethoxazole-trimet hoprim DS (Bactrim DS) 800-160 MG 1 TabletIndications:Hemat uria, gross 1 Tablet OR ONCE 08/13/2022 08/14/2022 Active leuprolide acetate (4 Month) (Eligard) inj 30 mgIndications:Prostate cancer (HCC) 30 mg SC ONCE 08/13/2022 08/13/2022 Ended documented as of this encounter (statuses as of 08/13/2022) Active Problems Problem Noted Date Hypertensive heart [...] urinary tr act symptoms 07/13/2001 Atherosclerosis of ak chin co ronary artery of ak chin heart without angina pectoris Morbid obesity with BMI of 45.0-49.9, ad ult documented as of this encounter (statuses as of 08/13/2022) Resolved Problems Problem Noted Date Resolved Date [...] use aero chamber. Test performed by Dori CORE MAN CPFT Body mass index (BMI) of 45.0 [...] MANAGEMENT 07/22/2008 0 Overview: Kianna Lyn RN [phone] Examination following surgery 07/11/2008 Difficult intubation 07/10/2008 02/19/2020 Overview: Patient seen and examined in OR#1.Possible difficult intubation.TM distance about 5 cms.MP 3-4. Will plan FOB electively Due to current situation. EXAMINATION OF PARTICIPANT IN CLINICAL TRIAL-gen omics 07/04/2008 05/30/2009 Overview: Renamed Per Clinical Trials Billing Project. Study Titile: Genomic Markers for Patients with Cardiovascular Disease Project #[id number] PI: Fabienne Martinez MD Please call [phone] with study related questions Chronic coronary artery [...] at goal 07/04/2008 9 GENOMICS CARDIO RESEARCH OTHER*[id number] 200803/23/2016 Overview: Renamed Per Clinical Trials Billing Project. Study Titile: Genomic Markers for Patients with Cardiovascular Disease Project #[id number] PI: Fabienne Martinez MD Please call [phone] with study related questions Kidney disease, chronic, [...] as of this encounter (statuses as of 08/13/2022) Immunizations Name Administration Dates Next Due COVID-19 mRNA, LNP-s, No Pre serve, 2-Dose Series (C2FO) 12/09/2020,05/09/2020,04/11/2020 COVID-19, LNP-s, No Preserve , Juan [...] Progress Notes * Denny Armando MD - 08/13/2022 2:13 PM EDT [id number] PCP: DAISHA MENARD [address] [place] [address] [place] [address] Maurisio Beltran is a 81 year old male, who presents for cystoscopy for evaluation of gross hematuria.History of CAP and recurrent PSA is noted. Past notes and telephone notes reviewed. He denies significant changes in his voiding, although he is somewhat taciturn. Hematuria: Cystoscopy July 2022: Inflammation and abnormal [...] Results Component Value Date/Time PSA - [facility] 8.83 (H) 07/26/2022 12:48 PM PSA - [facility] 9.00 (H) 07/22/2022 09:18 AM PSA - [facility] 0.53 03/22/2022 01:36 PM PSA - [facility] 2.61 04/24/2019 07:55 AM [...] 30 Tablet 6 Vitamin D3 1.25 MG (33212 UT) Oral Capsule Take 1 Capsule by [...] taking: Reported on 08/11/2022) 100 g 1 Simethicone 80 MG Oral [...] Tablet by mouth daily. 90 Tablet 2 Syringe Luer Lock 25G X 5/8" 3 ML Use as directed twice daily for octreotide injections. 60 Each 1 Isosorbide Mononitrate ER 30 MG [...] skin in the morning. 63 mL 3 Syringe/Needle (Disp) 25G X 5/8" 3 ML USE DIRECTED TWICE DAILY FOR OCTREOTIDE INJECTIONS 60 Each 1 Octreotide Acetate 50 MCG/ML Subcutaneous Solution Prefilled [...] minutes 25 Tablet 1 Easy Touch Pen [place] 31G X 8 MM (Insulin Pen Needle) Use up to six times daily with insulin. DXe11.9 600 Each 3 Albuterol Sulfate HFA 108 (90 Base) MCG/ACT Inhalation Aerosol Solution Inhale by mouth 2 Puffsevery 4 hours as needed for Cough or Shortness of Breath. Reports doesn't help (Patient not taking:Reported on 08/11/2022) 18 g 2 Victoza 18 MG/3ML Subcutaneous [...] *conc* inhalation solution 2.5 mg 2.5 mg NebulizerPRVirginia Mccrary PA-C Review of patient's allergies indicates: [...] 01/27/1998 Years since quittin.5 Smokeless tobacco: Never Substance Use Topics Alcohol use: No Vaping/E-Cigarette Use Vaping/E-Cigarette Use Never User Vaping/E-Cigarette Substances Vaping/E-Cigarette Devices Family History 14 items Mother ( at age 83) Heart Disorder Mental Disorder Father ( at age 52) Lung Disorder Brother ( at age 46 ) Son Son Sister Brother Asthma Grandfather (Maternal) Cancer Aunt (Unspecified) Cancer Uncle (Unspecified) Cancer Brother Heart Disorder (46 y) Son Diabetes (35 y) Son Blood Disorder Son Arthritis Past Surgical History: Procedure Laterality Date BRACHYTHERAPY SEED,IRIDIUM 192 01/2004 BYPASS GRAFT ANGIOGRAPHY W/LEFT HEART CATH 09/05/2013 BYPASS GRAFT ANGIOGRAPHY W/LEFT HEART CATH performed by Aleisha Abraham MD at [facility] [place]PASS GRAFT ANGIOGRAPHY W/RIGHT+LEFT CATH Right 08/25/2016 BYPASS GRAFT ANGIOGRAPHY W/RIGHT+LEFT CATH performed by Eliseo José MD at [facility] CABG, ARTERIAL, SINGLE 07/10/2008 CORONARY ARTERY BYPASS GRAFT USING ARTERY 1 GRAFT performed by BUDDY VILCHIS at [place] [facility] CABG, ARTERY-VEIN, TWO 07/10/2008 CORONARY ARTERY BYPASS GRAFT ARTERIAL AND VENOUS 2 GRAFTS performed by BUDDY VILCHIS at [place] [facility] CARDIAC CATH-CARDIOLOGY ONLY 09/05/2013 60% RCA, drug [...] 06/25/2015 adenomatous & hyperplastic polyps, repeat 3 yrs/[facility] COLONOSCOPY, DIAGNOSTIC (RECTUM) 04/20/2018 hyperplastic polyp, repeat 5 yrs/[facility] COLONOSCOPY, DIAGNOSTIC (RECTUM) 10/31/2020 adenomatous polyp, diverticulosis, repeat 3 yrs / [facility] COLONOSCOPY, REMOVE LESION, W/SNARE 06/25/2015 4 mm polyp ascending, 2 polyps in rectum, diverticulosis COMBINED RT & LEFT HEART CATHETERS 07/04/2008 RIGHT AND RETROGRADE LEFT HEART CATH performed by CANDELARIO VINES at [facility] [place] COMBINED RT & LEFT HEART CATHETERS 01/01/2010 RIGHT AND RETROGRADE LEFT HEART CATH performed by KAREL OBANDO at [facility] [place] HEAD/BRAIN WO CONTRAST N/A 02/04/2016 patchy [...] by Jose Eduardo Valadez MD at ENDOSCOPY [facility] EGD, FLEXIBLE, DIAGNOSTIC 06/25/2015 esophagitis/[facility] EGD, FLEXIBLE, DIAGNOSTIC N/A 11/14/2020 two large inlet patches/patchey antral gastritis/biopsies show Barretts/EGD EGD, FLEXIBLE, DIAGNOSTIC 05/22/2021 Barretts, repeat 3 yrs / [facility] EGD, FLEXIBLE, DIAGNOSTIC 06/26/2021 normal / INPT [facility] EGD, FLEXIBLE, DIAGNOSTIC 09/09/2021 mildly inflammed mucosa on bx / [facility] EGD, FLEXIBLE, DIAGNOSTIC 10/30/2020 single bleeding angiodysplastic lesion in the jejunum / INPT [facility] EGD, FLEXIBLE, W/BIOPSY 11/14/2006 mild chronic inflammation EGD, FLEXIBLE, W/BIOPSY 04/25/2008 stomach gastritis, stubbs's esophagus, recommend f/u in 2 years EGD, FLEXIBLE, W/BIOPSY 06/25/2015 stomach and duodenum normal ENDO,VIDEO ASSIST HARVEST DILLON 07/10/2008 ENDOSCOPY VIDEO ASSISTED HARVEST VEIN performed by BUDDY VILCHIS at [place] [facility] [place] FLUORO SWALLOWING FUNCTION W VIDEO CINE 11/14/2017 moderate esophageal dysmotility, no mass or stricture FLUORO UPPER GI W AIR WO KUB 06/03/2014 normal HC VENOUS DUPLEX COMPLETE BILATERAL LOWER EXTREMITY Bilateral 11/14/2017 no DVT INSERT HEART ELECTRODE, DUAL CHAMBR 06/11/2020 [facility] INSERT IA PERCUT DEVICE 07/10/2008 INSERT INTRA AORTIC BALLOON ASSIST DEVICE PERCUTANEOUS performed by FABIENNE MARTINEZ at [facility] [place] LEFT HEART CATHETERIZATION 07/04/2008 80% mid left [...] performed by Annelise Diaz MD at OR [facility] ENDOSCOPY W/BX 07/03/2010 await [...] fraction (HCC) Acute blood loss anemia 10/29/2020 [facility] transfused Acute exacerbation of chronic obstructive pulmonary disease (COPD) ([facility]) 05/11/2018 [facility] Altered mental status 03/31/2017 likely [...] moderate (HCC) 10/04/2014 PFT Coronary atherosclerosis of ak chin coronary artery 07/04/2008 Admitted [facility] COVID-19 02/24/2021 Dermatophytosis of scalp or bello [...] stage III (GFR 30-59 ml/min) ([facility]) 06/2008 Malignant neoplasm of prostate ([facility]) Prostate Mixed dyslipidemia Morbid obesity with BMI of 45.0-49.9, adult ([facility]) Other psoriasis S/P primary angioplasty with coronary stent 09/05/2013 drug eluting stents to 60% RCA, other grafts open except SVG to PDA is occluded Sleep apnea CPAP Sleep apnea, obstructive Symptomatic anemia 10/29/2020 Admitted [facility] and transfused TIA (transient ischemic attack) 02/04/2016 [facility] Tubular adenoma 10/31/2020 Patient Active Problem List Diagnosis Code BPH without obstruction/lower urinary tract symptoms N40.0 Psoriasis L40.9 Generalized osteoarthritis M15.9 Iron deficiency anemia due to chronic blood loss D50.0 Atherosclerosis of ak chin coronary artery of ak chin heart without angina pectoris I25.10 Aortocoronary bypass status Z95.1 Type 2 diabetes mellitus with hemoglobin A1c goal of less than 8.0% ([facility]) E11.9 Dyslipidemia E78.5 Vitamin D deficiency E55.9 REENA-inhibitor cough R05.8, T46.4X5A Obstructive sleep apnea of adult G47.33 Psoriatic arthropathy ([facility]) L40.50 S/P primary angioplasty with coronary stent Z95.5 Stubbs's esophagus with dysplasia K22.719 Pulmonary hypertension ([facility]) I27.20 Chronic diastolic heart failure ([facility]) I50.32 Gout M10.9 COPD, group D, by GOLD 2017 classification ([facility]) J44.9 Chronic respiratory failure with hypoxia ([facility]) J96.11 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 Morbid obesity with BMI of 45.0-49.9, adult ([facility]) E66.01, Z68.42 Vitamin B12 deficiency E53.8 Atrioventricular block, Mobitz type 1, Wenckebach I44.1 S/P placement of cardiac pacemaker Z95.0 H/O dysplastic nevus Z86.018 Hx of nonmelanoma skin cancer Z85.828 Elevated prostate specific antigen (PSA) R97.20 Chronic pain of right hip M25.551, G89.29 Leg swelling M79.89 Anemia in stage 4 chronic kidney disease ([facility]) N18.4, D63.1 Macular degeneration of both eyes H35.30 HTN, goal below 140/90 I10 Current mild episode of major depressive disorder without prior episode ([facility]) F32.0 Type 2 diabetes mellitus with stage 4 chronic kidney disease, with long-term current use of insulin ([facility]) E11.22, N18.4, Z79.4 CHB (complete heart block) ([facility]) I44.2 Prostate cancer ([facility]) C61 Stage 3b chronic kidney disease ([facility]) N18.32 Plaque psoriasis L40.0 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 Constitutional: General: He is not in acute distress. Appearance: He is obese. He is not toxic-appearing. HENT: Head: Normocephalic and atraumatic. Right Ear: External ear normal. Left Ear: External ear normal. Nose: Nose normal. Eyes: Extraocular Movements: Extraocular movements intact. Cardiovascular: Pulses: Normal pulses. Abdominal: General: Abdomen is protuberant. Palpations: Abdomen is soft. Genitourinary: Comments: Buried phallus Musculoskeletal: Cervical back: Normal range of motion. Skin: Coloration: Skin is not pale. Neurological: General: No focal deficit present. Mental Status: He is oriented to person, place, and time. Psychiatric: Mood and Affect: Mood normal. Thought Content: Thought content normal. Cystoscopy Procedure Note: Patient was properly identified and appropriate consent was confirmed. Risks and benefits of the procedure were reviewed and the patient was prepped and draped in the standard fashion for the procedure. A well lubricated 16 Niuean flexible cystoscope was introduced through the meatus into the urethra. Urethra demonstrated no abnormalities. Prostatic urethra demonstrated moderate lateral lobe prostatic obstruction, friable tissue and Blanched and irregular tissue consistent with prostate cancerhistory and recurrent PSA. Bladder neck was visualized and bladder was entered. Sterile saline irrigation was used to distend the bladder which was noted to have no tumors, stones or mucosal abnormalities, mobile debris and significant retained postvoid residual with grade 3 trabeculation. Bladder was completely inspected including retroflexion of the scope. Ureteral orifices were noted to be in the normal anatomic position bilaterally. After this was completed the cystoscope was removed. Patient tolerated the procedure well without complications or difficulties. Cannon Pinion Adjuster was present for entire procedure. Perioperative Bactrim was provided. Impression/Plan: 81-year-old male with recurrent PSA, gross hematuria, likely arising from the level of the prostate. Findings reviewed with patient. I suspect his gross hematuria and recurrent PSA both signify rapid return of his prostate cancer. Four month Lupron provided today, will see in 4 months with a PSA. I suspect we will need more regular androgen deprivation. Patient is amenable. Will consider another 4month injection in 6 months depending on the patient's PSA response. Worrisome signs and symptoms are reviewed. Patient vocalizes good understanding of the treatment plan. Above content is personallyreviewed. Denny Armando MD 2:13 PM 08/13/2022 documented in this encounter Nursing Notes * Katelyn Ingram LPN - 08/13/2022 2:24 PM EDT Pt received 4 month Eligard from office stock in [facility], pt tolerated well * Katelyn Ingram LPN - 08/13/2022 1:48 PM EDT Chief Complaint Patient presents with Cystoscopy Pt presents for cysto, consents signed documented in this encounter Plan of Treatment Upcoming Encounters Date Type Specialty Care Team Description 09/03/2022 Office Visit [address] [place] [address] 09/03/2022 Office Visit Gastroenterology Marielena Hall CRNP [address] [place] [address] 09/21/2022 Office Visit Cardiology Blair Hannah PA-C [address] [place] [address] 10/07/2022 Cardiac Studies [facility]iology [facility] [address] [place] [address] 10/11/2022 Office Visit Sleep Disorders Eulalia Milligan DO [address] [place] [address] 10/12/2022 Office Visit Nephrology Quin Narvaez MD [address] [facility] [place] [address] 10/25/2022 Office Visit Family Medicine Daisha Menard MD [address] [place] [address] [place] [address] 11/30/2022 Office Visit Urology Denny Armando MD [address] [facility] [address] [place] [id number] 12/20/2022 Office Visit Dermatology Meron Aragon PA-C [address] [place] [address] [place] [address] 01/24/2023 Office Visit Rheumatology Ashley Mancilla PA-C 06/02/2023 Nurse Only Ancillary Nurse Neeraj Annual [address] [place] [address] Scheduled Orders Name Type Priority Associated Diagnoses Orde r Schedule CYSTOSCOPY Procedures Routine Hematuria, gross Ordered: 08/13/2022 Scheduled Procedures Name Priority Associated Diagnoses Date/Ti [...] 09/18/2021, , 06/03/2020, Additional history exists HbA1c 10/23/2022 04/22/2022, 09/2021, [...] Pneumococcal Vaccine: 65+ Years Completed 02/22/2014, 04/30/2008 Influenza Vaccine (FLU shot) Completed 10/22/2021, 11/10/2020, 10/23/2019, Additional history exists Hepatitis C Screening Completed 07/22/2022 , 05/11/2021, 11/23/2019, Additional history exists Nephrology Referral Discontinued 08/11/2022 GARDASIL-HPV IMMUNIZATION SERIES Aged Out No longer eligible based on patient's age to complete this topic Hepatitis B Aged Out No longer eligi ble based on patient's age to complete this topic MENINGOCOCCAL (MENACTRA/MENVEO) Aged Out No longer eligible based on patient's age to complete this topic documented as of this encounter Medical Devices Implanted Type Area Credentials Specialist Device Identifier Shelf Expiration Date Model / Serial / Lot Lei Hancock [id number] - [id number] Implanted:Qty: 6 on 07/10/2008 at [place] [facility] N/A: Chest DO NOT USE 08/14/2012 [id number] / / [id number] documented as of this encounter Visit Diagnoses Diagnosis Prostate cancer (HCC)- Primary Malignant neoplasm of prostate Hematuria, gross Gross hematuria Lower urinary tract symptoms Other symptoms involving urinary system Rising PSA following treatment for malignant neoplasm of prostate Stage 3a chronic kidney disease (HCC) documented in this encounter Administered Medications Inactive Administered Medications - up to 3 most recent administrations Medication Order MAR Action Action Date Dose Rate Site leuprolide acetate (4 Month) (Eligard) inj 30 mg 30 mg, Subcutaneous, ONCE, On Tue08/13/22 at 1500, For 1 dose Given 08/13/2022 2:24 PM EDT 30 mg Abdomen Right Lower documented in this encounter Additional Health Concerns Infection Onset Date Last Indicated Resolved Time COVID-19 Immunosuppressed 05/31/2022 05/31/2022 documented as of this encounter Advance Directives Documents on File Type Date Recorded Patient Case Operator Expl anation Power of Incinerator Plant Laborer 06/26/2019 POWER OF A TTORNEY Advance Directives [...] the patient have Health Care Power of Incinerator Plant Laborer? No Code Status History Code Status Date [...] patient or by statute hierarchy) Care Teams Outbound Telemarketing Representative Relationship Specialty Start Date End Date Sellathurai, Thiviyanath, MD [address] [place] [address] [place] [address] PCP - General Family Medicine 06/19/21 documented as of this encounter
--- OUTSIDE RECORDS SUMMARY | 2023-02-03 20:39 | External Medical Summary | Summary of Care ---
Author Name Unknown Organization [facility] Address [address] [place] [address] Phone [phone] Care Team Providers Care Book Sewer Name Role Phone Nicola Prado MD Primary Care Provide r Reason for Visit * Reason Onset Date Comments Medication Refill 08/30/2022 Encounter Details Date Type Department Care Team Description 08/30/2022 Telephone Gastroenterology, [facility] [address] [place] [address] Marielena Giraldo CRNP [address] [place] [address] Medication Refill Allergies Active Allergy Reactions Severity [...] 6 06/26/2021 Active Vitamin D3 1.25 MG (02450 UT) Oral Capsule Take 1 Capsule by [...] or chew 40 Tablet 2 12/17/2021 Active Earth Class MailTouch UltraSoft LancetsIndications :Type 2 diabetes mellitus with [...] less than 8.0% ([facility]) Inject 110 Units under the [...] Tablet 1 05/05/2022 Active Easy Touch Pen [place] 31G X 8 MM (Insulin Pen Needle)Indications :Type 2 diabetes mellitus with hemoglobin A1c goal of less than 8.0% ([facility]),Type 2 diabetes mellitus with stage 4 chronic kidney disease, unspecified whether senior living insulin use ([facility]) Use up to six times daily with insulin. DXe11.9 600 Each 3 05/22/2022 Active Albuterol Sulfate HFA 108 (90 Base) MCG/ACT Inhalation Aerosol SolutionIndication s:COPD exacerbation ([facility]),Chronic cough Inhale by mouth 2 [...] urinary tr act symptoms 07/13/2001 Atherosclerosis of [place] co ronary artery of [place] heart without angina pectoris Morbid obesity with [...] use aero chamber. Test performed by Dori PRINCIPAL ELECTRICAL ENGINEER CPFT Body mass index (BMI) of [...] 07/22/2008 0 Overview: Kianna Lyn, RN [phone] Examination following surgery 07/11/2008 Difficult intubation 07/10/2008 02/19/2020 Overview: Patient seen and examined in OR#1.Possible difficult intubation.TM distance about 5 cms.MP 3-4. Will plan FOB electively Due to current situation. EXAMINATION OF PARTICIPANT IN CLINICAL TRIAL-gen omics 07/04/2008 05/30/2009 Overview: Renamed Per Clinical Trials Billing Project. Study Titile: Genomic Markers for Patients with Cardiovascular Disease Project #[id number] PI: Miriam Roque MD Please call [phone] with study related questions Chronic coronary artery [...] at goal 07/04/2008 9 GENOMICS CARDIO RESEARCH OTHER*[id number] 200803/23/2016 Overview: Renamed Per Clinical Trials Billing Project. Study Titile: Genomic Markers for Patients with Cardiovascular Disease Project #[id number] PI: Miriam Roque MD Please call [phone] with study related questions Kidney disease, chronic, [...] mRNA, LNP-s, No Pre serve, 2-Dose Series ([employer]) 12/09/2020,05/09/2020,04/11/2020 COVID-19, LNP-s, No Preserve , Juan [...] our gastro pharmacist to see if he knows any specialty pharmacists that may have it. * Addendum Note - FRANCHESKA Collins - [...] Angulo * Telephone Encounter - Manda Porras [facility] - 08/30/2022 9:14 AM EDT Maurisio Holley was scheduled to have his octreotide syringes ship out today, however syringes are currently on backorder. Syringes are anticipated (but not guaranteed) to return to stock on 09/10/22. Octreotidevials are also on backorder with no anticipated return to stock date. Please advise. Thank you! Courtney Porras, Pharm.D. Clinical Specialty Pharmacist [facility] 08/30/2022, 9:21 AM documented in this encounter Plan of Treatment Upcoming Encounters Date Type Specialty Care Team Description 09/03/2022 Office Visit Pharmacy [address] [place] [address] 09/03/2022 Office Visit Gastroenterology Marielena Giraldo CRNP [address] [place] [address] 09/21/2022 Office Visit Cardiology Blair Hannah PA-C [address] [place] [address] 10/07/2022 Cardiac Studies Cardiology Keith Pickard [facility] [address] [place] [address] 10/11/2022 Office Visit Sleep Disorders Eulalia Milligan DO [address] [place] [address] 10/12/2022 Office Visit Nephrology Quin Narvaez MD [address] [facility] [place] [address] 10/25/2022 Office Visit Family Medicine Nicola Prado MD [address] [place] [address] [place] [address] 11/30/2022 Office Visit Urology Denny Armando MD [address] [place] [address] [place] [address] 12/20/2022 Office Visit Dermatology Meron Aragon PA-C [address] [place] [address] [place] [address] 01/24/2023 Office Visit Rheumatology Ashley Mancilla PA-C 06/02/2023 Nurse Only Ancillary Neeraj, Nurse [facility] [address] [place] [address] [place] [address] Scheduled Procedures Name Priority Associated Diagnoses Date/Ti [...] this encounter Medical Devices Implanted Type Area Virtualization Engineer Device Identifier Shelf Expiration Date Model / Serial / Lot Sut Steel 6 [id number] - [id number] Implanted:Qty: 6 on 07/10/2008 at OR [facility] N/A: Chest DO NOT USE 08/14/2012 [id number] / / [id number] documented as of this encounter Additional Health Concerns Infection Onset Date Last Indicated Resolved Time COVID-19 Immunosuppressed 05/31/2022 05/31/2022 12:19 AM EDT documented as of this encounter Advance Directives Documents on File Type Date Recorded Patient Store Operations Specialist Expl anation Power of Care Professionals 06/26/2019 POWER OF A TTORNEY Advance Directives [...] the patient have Health Care Power of Care Professionals? No Code Status History Code Status Date [...] patient or by statute hierarchy) Care Teams Book Sewer Relationship Specialty Start Date End Date Nicola Prado MD [address] [place] [address] [place] [address] PCP - General Family Medicine 06/19/21 documented as of this encounter
--- OUTSIDE RECORDS SUMMARY | 2023-02-03 20:39 | External Medical Summary | Summary of Care ---
Author Name Unknown Organization [facility] Address [address] [place] [address] Phone [phone] Care Team Providers Care Web Interface Developer Name Role Phone Nicola Prado MD Primary Care Provide r Reason for Visit * Reason Onset Date Comments Medication Refill 08/30/2022 Encounter Details Date Type Department Care Team Description 08/30/2022 Telephone Gastroenterology, [facility] [address] [place] [address] Marielena Giraldo CRNP [address] [place] [address] Medication Refill Allergies Active Allergy Reactions Severity [...] 6 06/26/2021 Active Vitamin D3 1.25 MG (50994 UT) Oral Capsule Take 1 Capsule by [...] or chew 40 Tablet 2 12/17/2021 Active [place] ConnectionsTouch UltraSoft LancetsIndications :Type 2 diabetes mellitus with [...] Tablet 1 05/05/2022 Active Easy Touch Pen [place] 31G X 8 MM (Insulin Pen Needle)Indications :Type 2 diabetes mellitus with hemoglobin A1c goal of less than 8.0% ([facility]),Type 2 diabetes mellitus with stage 4 chronic kidney disease, unspecified whether half-way insulin use ([facility]) Use up to six times daily with insulin. DXe11.9 600 Each 3 05/22/2022 Active Albuterol Sulfate HFA 108 (90 Base) MCG/ACT Inhalation Aerosol SolutionIndication s:COPD exacerbation ([facility]),Chronic cough [...] use aero chamber. Test performed by Dori FIRE TRUCK DRIVER CPFT Body mass index (BMI) of 45.0 [...] 07/22/2008 0 Overview: Kianna Lyn, RN [phone] Examination following surgery 07/11/2008 Difficult intubation 07/10/2008 02/19/2020 Overview: Patient seen and examined in OR#1.Possible difficult intubation.TM distance about 5 cms.MP 3-4. Will plan FOB electively Due to current situation. EXAMINATION OF PARTICIPANT IN CLINICAL TRIAL-gen omics 07/04/2008 05/30/2009 Overview: Renamed Per Clinical Trials Billing Project. Study Titile: Genomic Markers for Patients with Cardiovascular Disease Project #[id number] PI: Miriam Roque MD Please call [phone] with study related questions Chronic coronary artery [...] at goal 07/04/2008 9 GENOMICS CARDIO RESEARCH OTHER*[id number] 200803/23/2016 Overview: Renamed Per Clinical Trials Billing Project. Study Titile: Genomic Markers for Patients with Cardiovascular Disease Project #[id number] PI: Miriam Roque MD Please call [phone] with study related questions Kidney disease, chronic, [...] mRNA, LNP-s, No Pre serve, 2-Dose Series ([employer]) 12/09/2020,05/09/2020,04/11/2020 COVID-19, LNP-s, No Preserve , [...] you! Courtney Porras, Pharm.D. Clinical Specialty Pharmacist [facility] 08/30/2022, 9:21 AM documented in this encounter Plan of Treatment Upcoming Encounters Date Type Specialty Care Team Description 09/03/2022 Office Visit Pharmacy [address] [place] [address] 09/03/2022 Office Visit Gastroenterology Marielena Giraldo CRNP [address] [place] [address] 09/21/2022 Office Visit Cardiology Blair Hannah PA-C [address] [place] [address] 10/07/2022 [facility] [address] [place] [address] 10/11/2022 Office Visit Sleep Disorders Eulalia Milligan DO [address] [place] [address] 10/12/2022 Office Visit Nephrology Quin Narvaez MD [address] [place] [address] 10/25/2022 Office Visit Family Medicine Nicola Prado MD [address] [place] [address] [place] [address] 11/30/2022 Office Visit Urology Denny Armando MD [address] [place] [address] [place] [phone] 12/20/2022 Office Visit Dermatology Meron Aragon PA-C [address] [place] [address] [place] [address] 01/24/2023 Office Visit Rheumatology Ashley Mancilla PA-C 06/02/2023 Nurse Only Ancillary Movjoeey, Nurse Annual [facility] [address] [place] [address] [place] [address] Scheduled Procedures Name Priority Associated Diagnoses Date/Ti [...] encounter Medical Devices Implanted Type Area Pharmacy Operations Manager Device Identifier Shelf Expiration Date Model / Serial / Lot Sut Steel 6 M654g - [id number] Implanted:Qty: 6 on 07/10/2008 at [place] [facility] N/A: Chest DO NOT USE 08/14/2012 [id number] / / [id number] documented as of this encounter Additional Health Concerns Infection Onset Date Last Indicated Resolved Time COVID-19 Immunosuppressed 05/31/2022 05/31/2022 12:19 AM EDT documented as of this encounter Advance Directives Documents on File Type Date Recorded Patient Stock Preparation Supervisor Expl anation Power of Emission Specialist 06/26/2019 POWER OF A TTORNEY Advance [...] the patient have Health Care Power of Emission Specialist? No Code Status History Code Status [...] patient or by statute hierarchy) Care Teams Web Interface Developer Relationship Specialty Start Date End Date Nicola Prado MD [address] [place] [address] [place] [address] PCP - General Family Medicine 06/19/21 documented as of this encounter
--- OUTSIDE RECORDS SUMMARY | 2023-02-03 20:39 | External Medical Summary | Summary of Care ---
Author Name Unknown Organization [facility] Address [address] [place] [address] Phone [phone] Care Team Providers Care Loan Interviewer Name Role Phone Nicola Prado MD Primary Care Provide r Reason for Visit * Reason Onset Date Comments Test Results 08/29/2022 Encounter Details Date Type Department Care Team Description 08/29/2022 Telephone NephrologyMindi [address] [place] [address] Quin Narvaez MD [address] [place] [address] Test Results Allergies Active Allergy Reactions Severity [...] 6 06/26/2021 Active Vitamin D3 1.25 MG (54798 UT) Oral Capsule Take 1 Capsule by [...] or chew 40 Tablet 2 12/17/2021 Active BravoaviaTouch UltraSoft LancetsIndications: Type 2 diabetes mellitus with [...] ([facility]) Inject 110 Units under the skin in [...] Tablet 1 05/05/2022 Active Easy Touch Pen [place] 31G X 8 MM (Insulin Pen Needle)Indications: [...] :COPD exacerbation ([facility]),Chronic [...] urinary tr act symptoms 07/13/2001 Atherosclerosis of [place] co ronary artery of [place] heart without angina pectoris Morbid obesity with [...] MANAGEMENT 07/22/2008 0 Overview: Kianna Lyn RN 304 3508 Examination following surgery 07/11/2008 Difficult intubation 07/10/2008 02/19/2020 Overview: Patient seen and examined in OR#1.Possible difficult intubation.TM distance about 5 cms.MP 3-4. Will plan FOB electively Due to current situation. EXAMINATION OF PARTICIPANT IN CLINICAL TRIAL-gen omics 07/04/2008 05/30/2009 Overview: Renamed Per Clinical Trials Billing Project. Study Titile: Genomic Markers for Patients with Cardiovascular Disease Project #[id number] PI: Miriam Roque MD Please call [phone] with study related questions Chronic coronary artery [...] at goal 07/04/2008 9 GENOMICS CARDIO RESEARCH OTHER*[id number] 200803/23/2016 Overview: Renamed Per Clinical Trials Billing Project. Study Titile: Genomic Markers for Patients with Cardiovascular Disease Project #[id number] PI: Miriam Roque MD Please call [phone] with study related questions Kidney disease, chronic, [...] mRNA, LNP-s, No Pre serve, 2-Dose Series ([employer]) 12/09/2020,05/09/2020,04/11/2020 COVID-19, LNP-s, No Preserve , Juan [...] Telephone Encounter - Radha Hammer RN - 08/30/2022 10:18 AM EDT TE with pt regarding baseline labs improved with kidney function. Pt has not obtained home bp cuff.Will follow up with [facility]. * Telephone Encounter - Quin Narvaez MD - 08/29/2022 9:31 PM EDT pls let him know 08/11 labs were back to baseline Recommend validate home bp cuff w/ nephro and 3 day log > his bp have been a bit over [place]; would look to up ARB if able MD also Talking to [facility] about possilble medicine like farxiga or jardiance that may help preserve kidney function longer despite proteinuria; will be in touch if we can make changes documented in this encounter Plan of Treatment Upcoming Encounters Date Type Specialty Care Team Description 09/03/2022 Office Visit [address] [place] [phone] 09/03/2022 Office Visit Gastroenterology Marielena Hall CRNP [address] [place] [address] 09/21/2022 Office Visit Cardiology Blair Hannah PA-C [address] [place] [address] 10/07/2022 [facility] [address] [place] [address] 10/11/2022 Office Visit Sleep Disorders Eulalia Milligan DO [address] [place] [address] 10/12/2022 Office Visit Nephrology Quin Narvaez MD [address] [place] [address] 10/25/2022 Office Visit Family Medicine Nicola Prado MD [address] [place] [address] [place] [address] 11/30/2022 Office Visit Urology Denny Armando MD [address] [facility] [address] [place] [phone] 12/20/2022 Office Visit Dermatology Meron Aragon PA-C [address] [place] [address] [place] [address] 01/24/2023 Office Visit Rheumatology Ashley Mancilla PA-C 06/02/2023 Nurse Only Ancillary [place], Nurse Annual Well[facility] [address] [place] [address] [place] [address] Scheduled Procedures Name Priority Associated Diagnoses Date/Ti [...] this encounter Medical Devices Implanted Type Area Rolled Seat Trimmer Device Identifier Shelf Expiration Date Model / Serial / Lot Sut Steel 6 M654g - [id number] Implanted:Qty: 6 on 07/10/2008 at OR [facility] N/A: Chest DO NOT USE 08/14/2012 M654G / / [id number] documented as of this encounter Additional Health Concerns Infection Onset Date Last Indicated Resolved Time COVID-19 Immunosuppressed 05/31/2022 05/31/2022 12:19 AM EDT documented as of this encounter Advance Directives Documents on File Type Date Recorded Patient Junior Net Developer Expl anation Power of Sign Painter Helper 06/26/2019 POWER OF A TTORNEY Advance [...] the patient have Health Care Power of Sign Painter Helper? No Code Status History Code Status [...] patient or by statute hierarchy) Care Teams Loan Interviewer Relationship Specialty Start Date End Date Nicola Prado MD [address] [place] [address] [place] [address] PCP - General Family Medicine 06/19/21 documented as of this encounter
--- OUTSIDE RECORDS SUMMARY | 2023-02-03 20:40 | External Medical Summary ---
Author Name Unknown Address Unknown Organization K09:[facility] [place] [address] Laboratory Report Ordering Provider Test Date Status SAILAJA ASHTON 08/11/2022 13:14:21 Marilyn l Observation Date Value Abnormality Reference (Units ) Status BUN 08/11/2022 13:14:21 29 Above high normal 6-20 (mg/dL) Final Creatinine 08/11/2022 13:14:21 2.0 Above high normal 0.6-1.2 (mg/dL) Final Glomerular filtration rate/1.73 sq M.predicted [Volume Rate/Area] in Serum, Plasma or Blood by Creatinine-based formula (CKD-EPI) 08/11/2022 13:14:21 33 Below low normal >=60 (mL/min) Final eGFR is calculated based on the CKD-EPI 2020 equation SODIUM 08/11/2022 13:14:21 138 135-146 (m mol/L) Final Potassium 08/11/2022 13:14:21 4.1 3.5-5.1 (m mol/L) Final Cl 08/11/2022 13:14:21 99 98-107 (mm ol/L) Final CO2 08/11/2022 13:14:21 30 22-32 (mmo l/L) Final Anion gap 08/11/2022 13:14:21 9 7-15 (mmol /L) Final Glucose 08/11/2022 13:14:21 57 Below low normal 70- 120 (mg/dL) Final Calcium 08/11/2022 13:14:21 9.2 8.4-10.2 ( mg/dL) Final Performing Location [facility] [place] [address]
--- OUTSIDE RECORDS SUMMARY | 2023-02-03 20:40 | External Medical Summary | Summary of Care ---
Author Name Unknown Organization [facility] Address [address] [place] [address] Phone [phone] Care Team Providers Care Learning Support Services Director Name Role Phone Nicola Prado MD Primary Care Provide r Reason for Visit * Reason Comments Outpatient Testing Encounter Details Date Type Department Care Team Description 08/11/2022 Laboratory [facility] [address] [place] [address] [place] [address] [place], Lab Scenery [address] [place] [address] Iron deficiency anemia; Type 2 diabetes mellitus with stage 3b chronic kidney disease, with long-term current use of insulin ([facility]); Elevated parathyroid hormone; Proteinuria, unspecified type; Anemia in stage 4 chronic kidney disease ([facility]) Allergies Active Allergy Reactions Severity Noted Date Comments Hydromorphone High 09/20/2021 Other reaction(s): Nausea Other reaction(s): Nausea 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/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 Other reaction(s): AMS Other reaction(s): AMS Prasugrel 04/02/2016 bleeding Prednisone High 09/20/2021 Other reaction(s): INCREASE BLOOD SUGAR Other reaction(s): INCREASE BLOOD SUGAR documented as of this encounter (statuses as of 08/11/2022) Medications Medication Sig Dispensed Refills Start Date [...] major depressive disorder without prior episode ([facility]) Take 1 tablet by mouth daily in [...] 6 06/26/2021 Active Vitamin D3 1.25 MG (02486 UT) Oral Capsule Take 1 Capsule by [...] or chew 40 Tablet 2 12/17/2021 Active COTA TrackTouch UltraSoft LancetsIndications: Type 2 diabetes mellitus with hemoglobin A1c goal of less than 8.0% ([facility]) Test blood sugar up to five times daily; dx E11.9 450 Each 3 12/17/2021 Active OneTouch Ultra In Vitro Strip (Glucose Blood)Indications:T ype 2 diabetes mellitus with hemoglobin A1c goal of less than 8.0% ([facility]) 3-4 times a day 450 Strip [...] of less than 8.0% ([facility]) 12 units with breakfast and supper [...] Tablet 1 05/05/2022 Active Easy Touch Pen [place] 31G X 8 MM (Insulin Pen Needle)Indications: Type 2 diabetes mellitus with hemoglobin A1c goal of less than 8.0% ([facility]),Type 2 diabetes mellitus with stage 4 chronic kidney disease, unspecified whether medical terminologist insulin use ([facility]) Use up [...] as of this encounter (statuses as of 08/11/2022) Active Problems Problem Noted Date Hypertensive heart [...] tr act symptoms 07/13/2001 Atherosclerosis of red devil co ronary artery of red devil heart without angina pectoris Morbid obesity with BMI of 45.0-49.9, ad ult documented as of this encounter (statuses as of 08/11/2022) Resolved Problems Problem Noted Date Resolved Date [...] MANAGEMENT 07/22/2008 0 Overview: Kianna Lyn RN [phone] Examination following surgery 07/11/2008 Difficult intubation 07/10/2008 02/19/2020 Overview: Patient seen and examined in OR#1.Possible difficult intubation.TM distance about 5 cms.MP 3-4. Will plan FOB electively Due to current situation. EXAMINATION OF PARTICIPANT IN CLINICAL TRIAL-gen omics 07/04/2008 05/30/2009 Overview: Renamed Per Clinical Trials Billing Project. Study Titile: Genomic Markers for Patients with Cardiovascular Disease Project #[id number] PI: Miriam Roque MD Please call [phone] with study related questions Chronic coronary artery [...] at goal 07/04/2008 9 GENOMICS CARDIO RESEARCH OTHER*[id number] 200803/23/2016 Overview: Renamed Per Clinical Trials Billing Project. Study Titile: Genomic Markers for Patients with Cardiovascular Disease Project #[id number] PI: Miriam Roque MD Please call [phone] with study related questions Kidney disease, chronic, [...] as of this encounter (statuses as of 08/11/2022) Immunizations Name Administration Dates Next Due COVID-19 mRNA, LNP-s, No Pre serve, 2-Dose Series ([employer]) 12/09/2020,05/09/2020,04/11/2020 COVID-19, LNP-s, No Preserve , Juan Manuel-sucrose, Ages 12+ ([employer]) 06/04/2021 H1N1 2009 Influenza, IM 01/04/2009 MMR [...] Encounters Date Type Specialty Care Team Description 08/13/2022 Procedure Only Urology Denny Armando MD [address] [place] [address] [place] [address] 09/03/2022 Office Visit [address] [place] [address] 09/03/2022 Office Visit Gastroenterology Marielena Hall CRNP [address] [place] [address] 09/21/2022 Office Visit Cardiology Blair Hannah PA-C [address] [place] [address] 10/07/2022 Cardiac Studies Cardiology Keith Pickard [facility] [address] [place] [address] 10/11/2022 Office Visit Sleep Disorders Eulalia Milligan DO [address] [place] [address] 10/12/2022 Office Visit Nephrology Quin Narvaez MD [address] [place] [address], [place] [address] 10/25/2022 Office Visit Family Medicine Nicola Prado MD [address] [place] [address] [place] [address] 12/20/2022 Office Visit Dermatology Meron Aragon PA-C [address] [place] [address] [place] [address] 01/24/2023 Office Visit Rheumatology Ashley Mancilla PA-C 06/02/2023 Nurse Only Ancillary Nurse [facility]er[facility] [address] [place] [address] [place] [address] Pending Results Name Type Priority Associated Diagnoses Date /Time BASIC METABOLIC PANEL Lab Routine Type 2 diabetes mellitus with stage 3b chronic kidney disease, with long-term current use of insulin (HCC) 08/11/2022 1:14 PM EDT PTH Lab Routine Elevated parathyroid hormone 08/11/2022 1:14 PM EDT Scheduled Procedures Name Priority Associated [...] 06/03/2020, Additional history exists HbA1c 10/23/2022 04/22/2022, 0 09/2021, 02/16/2021, Additional history exists O2 ASSESSMENT COMPLETED IN PAST YEAR FOR COPD 10/23/2022 10/23/2021 GFR 02/01/2023 08/02/2022, 0 09/2022, 04/22/2022, Additional history exists Albumin/Creatinine Ratio 04/23/2023 023, [...] 02/22/2014, 04/30/2008 Influenza Vaccine (FLU shot) Completed 09/2021, 11/10/2020, 10/23/2019, Additional history exists Hepatitis C Screening Completed 07/22/2022 , 05/11/2021, 11/23/2019, Additional history exists GARDASIL-HPV IMMUNIZATION SERIES Aged Out No longer eligible based on patient's age to complete this topic Hepatitis B Aged Out No longer eligi ble based on patient's age to complete this topic MENINGOCOCCAL (MENACTRA/MENVEO) Aged Out No longer eligible based on patient's age to complete this topic documented as of this encounter Medical Devices Implanted Type Area Satellite Television Installer Device Identifier Shelf Expiration Date Model / Serial / Lot Lei Agrawal 6 [id number] - [id number] Implanted:Qty: 6 on 07/10/2008 at [place] [facility] [place]A: Chest DO NOT USE 08/14/2012 [id number] / / [id number] documented as of this encounter Procedures Procedure Name Priority Date/Time Associated Diagnosis Comments DIFFERENTIAL, AUTOMATED Routine 08/11/2022 1:14 PM EDT Iron deficiency anemia CBC WITH WBC DIFFERENTIAL Routine 08/11/2022 1:14 PM EDT Iron deficiency anemia CBC Routine 08/11/2022 1:14 PM EDT Iron deficiency anemia documented in this encounter Results * (ABNORMAL) DIFFERENTIAL, AUTOMATED (08/11/2022 1:14 PM EDT) WBC 10.83(H) 4.00 - 10.80 K/uL 08/11/2022 1:22 PM EDT [facility]02 Neutrophils % 68.9 40.0 - 75.0 % 08/11/2022 1:22 PM EDT [facility]02 Lymphocytes % 17.7(L) 18.0 - 42.0 % 08/11/2022 1:22 PM EDT [facility]02 Monocytes % 4.6 1.0 - 11.0 % 08/11/2022 1:22 PM EDT [facility]-02 Eosinophils % 8.2(H) 0.0 - 6.0 % 08/11/2022 1:22 PM EDT [facility]02 Basophils % 0.6 0.0 - 2.0 % 08/11/2022 1:22 PM EDT [facility]02 Absolute Neutrophils 7.46 1.80 - 7.70 K/uL 08/11/2022 1:22 PM EDT [facility]-02 Absolute Lymphocytes 1.92 1.00 - 4.80 K/ul 08/11/2022 1:22 PM EDT [facility]-02 Absolute Monocytes 0.50 0.00 - 1.10 K/uL 08/11/2022 1:22 PM EDT [facility] 56 Absolute Eosinophils 0.89(H) 0.00 - 0.70 K/uL 08/11/2022 1:22 PM EDT [facility] 56 Absolute Basophils 0.06 0.00 - 0.20 K/uL 08/11/2022 1:22 PM EDT [facility] 56 Blood Venous blood specimen / Unknown Venipuncture / Unknown 08/11/2022 1:14 PM EDT 08/11/2022 1:14 PM EDT Ga Fabian DO LAB BLOOD ORDERABL ES [facility] [address] [place] [address] * (ABNORMAL) CBC (08/11/2022 1:14 PM EDT) WBC 10.83(H) 4.00 - 10.80 K/uL 08/11/2022 1:[address] RBC 3.52 4.50 - 5.25 M/uL 08/11/2022 1:[address] HGB 11.5(L) 14.0 - 16.8 g/dL 08/11/2022 1:22 PM EDT [facility] 56 HCT 35.8(L) 40.0 - 48.4 % 08/11/2022 1:[address] MCV 101.7 82.0 - 99.5 fL 08/11/2022 1:22 PM EDT [facility] 56 MCH 32.7 27.0 - 34.0 pg 08/11/2022 1:22 PM EDT [facility] 56 MCHC 32.1 32.0 - 36.0 g/dL 08/11/2022 1:22 PM EDT [facility] 56 RDW 15.4 11.5 - 15.5 % 08/11/2022 1:22 PM EDT [facility] 5602 PLT 215 140 - 400 K/uL 08/11/2022 1:22 PM EDT [facility] 56- MPV 8.9 6.6 - 11.1 fL 08/11/2022 1:22 PM EDT [facility] 56- Blood Venous blood specimen / Unknown Venipuncture / Unknown 08/11/2022 1:14 PM EDT 08/11/2022 1:14 PM EDT Ga Fabian DO LAB BLOOD ORDERABL ES [facility] [address]- [address] [place] [address] documented in this encounter Visit Diagnoses Diagnosis Iron deficiency anemia Iron deficiency anemia, unspecified Type 2 diabetes mellitus with stage 3b chronic kidney disease, with long-term current use of insulin (HCC) Elevated parathyroid hormone Unspecified endocrine disorder Proteinuria, unspecified type Anemia in stage 4 chronic kidney disease (HCC) documented in this encounter Additional Health Concerns Infection Onset Date Last Indicated Resolved Time COVID-19 Immunosuppressed 05/31/2022 05/31/2022 documented as of this encounter Advance Directives Documents on File Type Date Recorded Patient [employer] Skills Expl anation Power of Cuff [place] 06/26/2019 POWER OF A TTORNEY Advance Directives [...] the patient have Health Care Power of Cuff [place]? No Code Status History Code Status Date [...] patient or by statute hierarchy) Care Teams Learning Support Services Director Relationship Specialty Start Date End Date Nicola Prado MD [address] [place] [address] [place] [address] PCP - General Family Medicine 06/19/21 documented as of this encounter
--- OUTSIDE RECORDS SUMMARY | 2023-02-03 20:40 | External Medical Summary ---
Author Name Unknown Address Unknown Organization [id number]:[facility] [address] [place] [address] Laboratory Report Ordering Provider Test Date Status MIKY [place] 08/11/2022 13:14:21 Final Observation Date Value Abnormality Reference (Units ) Status SYNC LEUKOCYTES IN BLOOD BY AUTOMATED COUNT 08/11/2022 13:14:21 10.83 Above high normal 4.00-10.80 (K/uL) Final Segs 08/11/2022 13:14:21 68.9 40.0-75.0 (%) Final Lymphs % 08/11/2022 13:14:21 17.7 Below low normal 18.0-42.0 (%) Final Monos 08/11/2022 13:14:21 4.6 1.0-11.0 (%) Final Eosinophils 08/11/2022 13:14:21 8.2 Above high normal 0.0-6.0 (%) Final Basos 08/11/2022 13:14:21 0.6 0.0-2.0 (%) Final Absolute Segs 08/11/2022 13:14:21 7.46 1.80-7.70 (K/uL) Final Lymphs, absolute 08/11/2022 13:14:21 1.92 1.00-4.80 (K/ul) Final Monos, Abs 08/11/2022 13:14:21 0.50 0.00-1.10 (K/uL) Final Eos, Abs 08/11/2022 13:14:21 0.89 Above high normal 0.00-0.70 (K/uL) Final Basos, Abs 08/11/2022 13:14:21 0.06 0.00-0.20 (K/uL) Final Performing Location [facility] [address] [place] [address]
--- OUTSIDE RECORDS SUMMARY | 2023-02-03 20:40 | External Medical Summary ---
Author Name Unknown Address Unknown Organization K01:[facility] [place] - [address] [place] [address] Laboratory Report Ordering Provider Test Date Status STEPANRINMELODYTIMMY 08/11/2022 13:14:21 Marilyn l Observation Date Value Abnormality Reference (Units ) Status Parathyrin.intact [Mass/volume] in Serum or Plasma 08/11/2022 13:14:21 79 Above high normal 15-65 (pg/mL) Final Performing Location [facility] [place] - [address] [place] [address]
--- OUTSIDE RECORDS SUMMARY | 2023-02-03 20:40 | External Medical Summary | Summary of Care ---
Author Name Unknown Organization [facility] Address [address] [place] [address] Phone [phone] Care Team Providers Care Frame Sample And Pattern Supervisor Name Role Phone Nicola Prado MD Primary Care Provide r Reason for Visit * Reason Comments Outpatient Testing Encounter Details Date Type Department Care Team Description 08/11/2022 Laboratory Laboratory [address]ery [place] [address] [place] [address] [place], Lab Scenery [address] [place] [address] Iron deficiency anemia; Type 2 diabetes mellitus with stage 3b chronic kidney disease, with long-term current use of insulin ([facility]); Elevated parathyroid hormone; Proteinuria, unspecified type; Anemia in stage 4 chronic kidney disease ([facility]) Allergies Active Allergy Reactions [...] of major depressive disorder without prior episode ([facility]) Take 1 tablet by [...] 6 06/26/2021 Active Vitamin D3 1.25 MG (54564 UT) Oral Capsule Take 1 Capsule by [...] or chew 40 Tablet 2 12/17/2021 Active DepositphotosTouch UltraSoft LancetsIndications: Type 2 diabetes mellitus with [...] than 8.0% ([facility]) Inject 110 Units under [...] Tablet 1 05/05/2022 Active Easy Touch Pen [place] 31G X 8 MM (Insulin Pen Needle)Indications: Type 2 diabetes mellitus with hemoglobin A1c goal of less than 8.0% ([facility]),Type 2 diabetes mellitus with stage 4 chronic kidney disease, unspecified 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 DXe11.9 600 Each 3 05/22/2022 Active Albuterol Sulfate HFA 108 (90 Base) MCG/ACT Inhalation Aerosol SolutionIndications :COPD exacerbation ([facility]),Chronic cough Inhale [...] urinary tr act symptoms 07/13/2001 Atherosclerosis of ruby co ronary artery of ruby heart without angina pectoris Morbid obesity with [...] MANAGEMENT 07/22/2008 0 Overview: Kianna Lyn RN [phone] Examination following surgery 07/11/2008 Difficult intubation 07/10/2008 02/19/2020 Overview: Patient seen and examined in OR#1.Possible difficult intubation.TM distance about 5 cms.MP 3-4. Will plan FOB electively Due to current situation. EXAMINATION OF PARTICIPANT IN CLINICAL TRIAL-gen omics 07/04/2008 05/30/2009 Overview: Renamed Per Clinical Trials Billing Project. Study Titile: Genomic Markers for Patients with Cardiovascular Disease Project #[id number] PI: Miriam Roque MD Please call [phone] with study related questions Chronic coronary artery [...] at goal 07/04/2008 9 GENOMICS CARDIO RESEARCH OTHER*[id number] 200803/23/2016 Overview: Renamed Per Clinical Trials Billing Project. Study Titile: Genomic Markers for Patients with Cardiovascular Disease Project #[id number] PI: Miriam Roque MD Please call [phone] with study related questions Kidney disease, chronic, [...] mRNA, LNP-s, No Pre serve, 2-Dose Series ([employer]) 12/09/2020,05/09/2020,04/11/2020 COVID-19, LNP-s, No Preserve , Juan Manuel-sucrose, Ages 12+ ([employer]) 06/04/2021 H1N1 2009 Influenza, IM 01/04/2009 MMR [...] [address] [place] [address] [place] [address] 09/03/2022 Office Visit [address] [place] [address] 09/03/2022 Office Visit Gastroenterology Marielena Hall CRNP [address] [place] [address] 09/21/2022 Office Visit Cardiology Blair Hannah PA-C [address] [place] [address] 10/07/2022 Cardiac Studies Cardiology Keith Pickard [facility] [address] [place] [address] 10/11/2022 Office Visit Sleep Disorders Eulalia Milligan DO [address] [place] [address] 10/12/2022 Office Visit Nephrology Quin Narvaez MD [address] [place] [address], [place] [address] 10/25/2022 Office Visit Family Medicine Nicola Prado MD [address] [place] [address] [place] [address] 12/20/2022 Office Visit Dermatology Meron Aragon PA-C [address] [place] [address] [place] [address] 01/24/2023 Office Visit Rheumatology Ashley Mancilla PA-C 06/02/2023 Nurse Only Ancillary Neeraj Nurse [facility] [address] [place] [address] [place] [address] Pending Results Name Type Priority Associated Diagnoses Date /Time CBC WITH WBC DIFFERENTIAL Lab Routine Iron deficiency anemia 08/11/2022 1:14 PM EDT BASIC METABOLIC PANEL Lab Routine Type 2 diabetes mellitus with stage 3b chronic kidney disease, with long-term current use of insulin (HCC) 08/11/2022 1:14 PM EDT PTH Lab Routine Elevated parathyroid hormone 08/11/2022 1:14 PM EDT CBC Lab Routine Iron deficiency anemia 08/11/2022 1:14 PM EDT DIFFERENTIAL, AUTOMATED Lab Routine Iron deficiency anemia 08/11/2022 1:14 PM EDT Scheduled Procedures Name [...] 06/03/2020, Additional history exists HbA1c 10/23/2022 04/22/2022, 09/0 09/2021, 02/16/2021, Additional history exists O2 ASSESSMENT COMPLETED IN PAST YEAR FOR COPD 10/23/2022 10/23/2021 GFR 02/01/2023 08/02/2022, 06/0 09/2022, 04/22/2022, Additional history exists Albumin/Creatinine Ratio [...] this encounter Medical Devices Implanted Type Area Signals Officer Device Identifier Shelf Expiration Date Model / Serial / Lot Sut Steel 6 [id number] - [id number] Implanted:Qty: 6 on 07/10/2008 [place] [facility] [place] Chest DO NOT USE 08/14/2012 [id number] / / [id number] documented as of this encounter Visit Diagnoses [...] Documents on File Type Date Recorded 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 No Code Status History Code Status Date [...] patient or by statute hierarchy) Care Teams Frame Sample And Pattern Supervisor Relationship Specialty Start Date End Date Sellathurai, Thiviyanath, MD [address] [place] [address] [place] [address] PCP - General Family Medicine 06/19/21 documented as of this encounter
--- OUTSIDE RECORDS SUMMARY | 2023-02-03 20:40 | External Medical Summary ---
Author Name Unknown Address Unknown Organization K09:[facility] [place] [address] Laboratory Report Ordering Provider Test Date Status [place] 08/11/2022 13:14:21 Final Observation Date Value Abnormality Reference (Units ) Status WBC, Total 08/11/2022 13:14:21 10.83 Above high normal 4 .00-10.80 (K/uL) Final RBC 08/11/2022 13:14:21 3.52 4.50-5.25 (M/uL) Final Hemoglobin 08/11/2022 13:14:21 11.5 Below low normal 14 .0-16.8 (g/dL) Final HCT 08/11/2022 13:14:21 35.8 Below low normal 40. 0-48.4 (%) Final MCV 08/11/2022 13:14:21 101.7 82.0-99.5 (fL) Final MCH 08/11/2022 13:14:21 32.7 27.0-34.0 (pg) Final MCHC 08/11/2022 13:14:21 32.1 32.0-36.0 (g/dL) Final RDW 08/11/2022 13:14:21 15.4 11.5-15.5 (%) Final Platelets 08/11/2022 13:14:21 215 140-400 (K /uL) Final MPV 08/11/2022 13:14:21 8.9 6.6-11.1 ( fL) Final Performing Location [facility] [place] [address]
--- OUTSIDE RECORDS SUMMARY | 2023-02-03 20:40 | External Medical Summary | Summary of Care ---
Author Name Unknown Organization [facility] Address [address] [place] [address] Phone [phone] Care Team Providers Care Background Investigator Name Role Phone Nicola Prado MD Primary Care Provide r Reason for Visit * Reason Onset Date Comments Appointment 08/09/2022 Encounter Details Date Type Department Care Team Description 08/09/2022 Telephone Urology, [facility] [address] [place] [address] Services, Scheduling [address] [place] [address] Appointment Allergies Active Allergy Reactions Severity Noted Date Comments Hydromorphone High 09/20/2021 Other reaction(s): Nausea Other reaction(s): Nausea 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/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 Other reaction(s): AMS Other reaction(s): AMS Prasugrel 04/02/2016 bleeding Prednisone High 09/20/2021 Other reaction(s): INCREASE BLOOD SUGAR Other reaction(s): INCREASE BLOOD SUGAR documented as of this encounter (statuses as of 08/09/2022) Medications Medication Sig Dispensed Refills Start Date [...] 6 06/26/2021 Active Vitamin D3 1.25 MG (30730 UT) Oral Capsule Take 1 Capsule by [...] Tablet 1 05/05/2022 Active Easy Touch Pen [place] 31G X 8 MM (Insulin Pen Needle)Indications: Type 2 diabetes mellitus with hemoglobin A1c goal of less than 8.0% (FORM[facility]LY [facility]),Type 2 diabetes mellitus with stage 4 chronic kidney disease, unspecified whether long-term insulin use ([facility] [...] a week. 4 mL 1 08/04/2022 Active Hospital, Clinic, or Other Facility Administered [...] as of this encounter (statuses as of 08/09/2022) Active Problems Problem Noted Date Hypertensive heart [...] urinary tr act symptoms 07/13/2001 Atherosclerosis of [place] ronary artery of [place] heart without angina pectoris Morbid obesity with BMI of 45.0-49.9, ad ult documented as of this encounter (statuses as of 08/09/2022) Resolved Problems Problem Noted Date Resolved Date [...] use aero chamber. Test performed by [employer] PROJECT MANAGEMENT ENGINE[employer]FT Body mass index (BMI) of [...] TIA (transient ischemic attack) 02/04/2016 11/23/2017 Overview: [facility] Anemia of chronic renal failure 07/30/2015 [...] MANAGEMENT 07/22/2008 0 Overview: Kianna Lyn, RN [phone] Examination following surgery 07/11/2008 Difficult intubation 07/10/2008 02/19/2020 Overview: Patient seen and examined in OR#1.Possible difficult intubation.TM distance about 5 cms.MP 3-4. Will plan FOB electively Due to current situation. EXAMINATION OF PARTICIPANT IN CLINICAL TRIAL-gen omics 07/04/2008 05/30/2009 Overview: Renamed Per Clinical Trials Billing Project. Study Titile: Genomic Markers for Patients with Cardiovascular Disease Project #[id number] PI: Miriam Roque MD Please call [phone] with study related questions Chronic coronary artery [...] at goal 07/04/2008 9 GENOMICS CARDIO RESEARCH OTHER*[id number] 200803/23/2016 Overview: Renamed Per Clinical Trials Billing Project. Study Titile: Genomic Markers for Patients with Cardiovascular Disease Project #[id number] PI: Miriam Roque MD Please call [phone] with study related questions Kidney disease, chronic, [...] as of this encounter (statuses as of 08/09/2022) Immunizations Name Administration Dates Next Due COVID-19 mRNA, LNP-s, No Pre serve, 2-Dose Series ([facility]) 12/09/2020,05/09/2020,04/11/2020 COVID-19, LNP-s, No Preserve , Juan [...] encounter Miscellaneous Notes * Telephone Encounter - Meggan Bass LPN - 08/09/2022 1:14 PM EDT Spoke with pt, this was ordered by dermatology and patient has already received results. * Telephone Encounter - KATHE Peña - 08/09/2022 10:36 AM EDT Pt called in it looks like There was a FTA-ABS test done and pt needs if for his appt this week please reach out to him to go over test results. It was order from Derm but is for uro please review and call pt Thank you ENT,Audiology,Urology Scheduling Please do not respond to me use pool [id number] Urology: P [id number] documented in this encounter Plan of Treatment Upcoming Encounters Date Type Specialty Care Team Description 08/13/2022 Procedure Only Urology Denny Armando MD [address] [place] [address] [place] [address] 09/03/2022 Office Visit [address] [place] [address] 09/03/2022 Office Visit Gastroenterology Marielena Hall CRNP [address] [place] [address] 09/21/2022 Office Visit Cardiology Blair Hannah PA-C [address] [place] [address] 10/07/2022 Cardiac Studies Cardiology [facility] [address] [place] [address] 10/11/2022 Office Visit Sleep Disorders Eulalia Milligan DO [address] [place] [address] 10/12/2022 Office Visit Nephrology Quin Narvaez MD [address] [place] [address] 10/25/2022 Office Visit Family Medicine Nicola Prado MD [address] [place] [address] [place] [id number] 12/20/2022 Office Visit Dermatology Meron Aragon PA-C [address] [place] [address] [place] [address] 01/24/2023 Office Visit Rheumatology Ashley Mancilla PA-C 06/02/2023 Nurse Only Ancillary Neeraj, Nurse Annual Wellness [address] [place] [address] [place] [phone] Scheduled Procedures Name Priority [...] FOR COPD 10/23/2022 10/23/2021 GFR 02/01/2023 08/02/2022, 09/2022, 04/22/2022, Additional history exists Albumin/Creatinine Ratio [...] this encounter Medical Devices Implanted Type Area Case Worker Device Identifier Shelf Expiration Date Model / Serial / Lot Sut Steel 6 [id number] - [id number] Implanted:Qty: 6 on 07/10/2008 at OR [facility] [place] N/A: Chest DO NOT USE 08/14/2012 [id number] / / [id number] documented as of this encounter Additional Health Concerns Infection Onset Date Last Indicated Resolved Time COVID-19 Immunosuppressed 05/31/2022 05/31/2022 documented as of this encounter Advance Directives Documents on File Type Date Recorded 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 No Code Status History Code Status [...] patient or by statute hierarchy) Care Teams Background Investigator Relationship Specialty Start Date End Date Nicola Prado MD [address] [place] [address] [place] [id number] PCP - General Family Medicine 06/19/21 documented as of this encounter
[2023-02-03] MEDS ORDERED: KETOROLAC TROMETHAMINE 15 MG/ML VIAL IV ONE ×2 (21:42→21:59)
[2023-02-03] MEDS ORDERED: GLUCOSE 40% GEL 15 GM TUBE PO PRN (22:42)
[2023-02-03] MEDS ORDERED: DEXTROSE 50% 50 ML SYRINGE IV PRN (22:42)
[2023-02-03] MEDS ORDERED: NITROGLYCERIN SL 0.4 MG/TAB TAB SL PRN (22:42)
[2023-02-03] MEDS ORDERED: SODIUM CHLORIDE 0.9% 1,000 ML IV SCH (22:42)
[2023-02-03] MEDS ORDERED: ALBUTEROL HFA 8 GM INHALER INH PRN (22:42)
[2023-02-03] MEDS ORDERED: guaiFENesin 600 MG TABCR PO PRN (22:42)
[2023-02-03] MEDS ORDERED: ONDANSETRON INJ 2 MG/ML 2 ML VIAL IV PRN (22:42)
[2023-02-03] MEDS ORDERED: TRIAMCINOLONE ACET 0.1% OINT 15 GM TUBE TOP PRN (22:42)
[2023-02-03] MEDS ORDERED: GLUCAGON FOR INJ 1 MG VIAL SQ PRN (22:42)
[2023-02-03] MEDS ORDERED: MoRPHine SULFATE 2 MG/ML CARP IM PRN (22:42)
[2023-02-03] MEDS ORDERED: CARBOHYDRATES FOR HYPOGLYCEMIA PO PRN (22:42)
[2023-02-03] MEDS ORDERED: PHARMACY GLYCEMIC MGMT CONSULT PRN (22:42)
[2023-02-03] MEDS ORDERED: ALBUTEROL 0.083% NEBU SOLN 3 ML VIAL INH PRN (22:42)
[2023-02-03] MEDS ORDERED: TRIAMCINOLONE ACET 0.5% CR 15 GM TUBE TOP PRN (23:04)
[2023-02-03] MEDS: metroNIDAZOLE 500 MG/100 ML BAG IV SCH (23:20)
[2023-02-04] MEDS: INSULIN ASPART PER UNIT CHARGE SC SCH ×4 (00:09→18:18)
--- NOTE | 2023-02-04 01:49 | History & Physical Report ---
Date of Service February 03, 2023 Assessment & Plan (1) Acute cholecystitis: Plan: 82-year-old male with past medical history significant for type 2 diabetes, chronic kidney disease stage IV, chronic respiratory failure with hypoxia, gout, COPD, obstructive sleep apnea, hyperlipidemia, pulmonary hypertension, chronic diastolic CHF, history of CAD s/p stent, s/p CABG, history of Mobitz type I Wenckebach block, complete heart block s/p cardiac pacemaker, morbid obesity, Henning's esophagus, vitamin B12 deficiency, BPH, generalized osteoarthritis, chronic pain of right hip, iron deficiency anemia due to chronic blood loss, anemia of chronic kidney disease, psoriasis, psoriatic arthropathy, polyarticular psoriatic arthropathy, prostate cancer status post seed implantation, patient is getting iron infusions per heme-onc. Also on octreotide 50 mg injection twice daily for AVM bleed and has not required blood transfusion since September 2021 , history of C. difficile presents with acute cholecystitis elevated LFTs. Patient states yesterday night after eating his dinner he had abdominal pain and was worried about diverticulitis but the pain got resolved and he did okay. In the morning he went for the breakfast around 7 AM with a friend. Around 7:30 AM when the food was served he suddenly blacked out he could not see anything does not know what happened people came to help him as he was walking he fell couple of times but did not hit his head and had no injuries. He was taken to his son's house. At the time he seemed people could not understand what he was talking. It lasted for about an hour. After 1 hour he seems to come back to his usual self. Worried about stroke or mini stroke and called PCP and was brought in here. In the ER he was hemodynamic stable alert and oriented and speaking in full sentences. Speech is clear. CT head was okay. CT abdomen pelvis and gallbladder ultrasound showed possible acute cholecystitis. Patient also has elevated LFTs. ER spoke with GI and surgery. There is no GI on-call to do ERCP so surgery recommended transfer to tertiary care. ER talk to [facility] and patient was accepted in transfer but they do not have beds tonight. So we are called for admission. Patient is seen sitting on the chair comfortably. No fevers. Currently no abdominal pain. Currently no nausea. No chest pain or shortness of breath. Has some chronic dry cough. Has some mild headache now. No runny nose. Normal bowel and bladder movements. Hemodynamically stable. Complains of some mild left groin pain. Acute cholecystitis On CT scan Gallbladder ultrasound shows gallbladder sludge Abdominal pain last night Having elevated LFTs Having leukocytosis Received IV cefepime in the ER continue IV cefepime and also placed on IV Flagyl Gentle fluids N.p.o. No GI on-call for ERCP Surgery recommended tertiary care [facility] accepted in transfer but there is no bed available tonight Accepting Physician as per ER. Continue to monitor Transient strokelike symptoms In morning around 7:30 PM he was confused and people could not understand what he was speaking and was weak seemed to last for about an hour CT head is okay Currently patient is back to his baseline Symptoms could be mostly from the ongoing infection Will do neurochecks every 4 hours for now and close monitor Patient had similar episode with altered mental status and word finding difficulty in September 2021. CT head was okay that time. Thought to be from mostly from dehydration and temporary encephalopathy as patient had recent C. difficile at that time ESA on chronic kidney disease stage IV Baseline creatinine 1.9 Presented with. 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 Sliding scale Pharmacy consult added dextrose to fluids as having hypoglycemia Close monitor Right first finger infection On the tip Currently on Keflex which we will hold as patient is getting IV antibiotics Gout On allopurinol Hyperlipidemia On statin and Zetia History of COPD Continue home inhalers and nebs as needed Uses oxygen 2 L as needed Psoriatic arthritis On Enbrel History of prostate cancer Follows with urology and oncology History of GERD On omeprazole BPH Flomax DVT prophylaxis SCD for now in anticipation of procedure Disposition Telemetry floor Full code Await transfer to [facility] History of Present Illness Chief Complaint: Acute cholecystitis, elevated LFTs Primary Care Provider: Nicola Prado MD 82-year-old male with past medical history significant for type 2 diabetes, chronic kidney disease stage IV, chronic respiratory failure with hypoxia, gout, COPD, obstructive sleep apnea, hyperlipidemia, pulmonary hypertension, chronic diastolic CHF, history of CAD s/p stent, s/p CABG, history of Mobitz type I Wenckebach block, complete heart block s/p cardiac pacemaker, morbid obesity, Henning's esophagus, vitamin B12 deficiency, BPH, generalized osteoarthritis, chronic pain of right hip, iron deficiency anemia due to chronic blood loss, anemia of chronic kidney disease, psoriasis, psoriatic arthropathy, polyarticular psoriatic arthropathy, prostate cancer status post seed implantation, patient is getting iron infusions per heme-onc. Also on octreotide 50 mg injection twice daily for AVM bleed and has not required blood transfusion since September 2021 , history of C. difficile presents with acute cholecystitis elevated LFTs. Patient states yesterday night after eating his dinner he had abdominal pain and was worried about diverticulitis but the pain got resolved and he did okay. In the morning he went for the breakfast around 7 AM with a friend. Around 7:30 AM when the food was served he suddenly blacked out he could not see anything does not know what happened people came to help him as he was walking he fell couple of times but did not hit his head and had no injuries. He was taken to his son's house. At the time he seemed people could not understand what he was talking. It lasted for about an hour. After 1 hour he seems to come back to his usual self. Worried about stroke or mini stroke and called PCP and was brought in here. In the ER he was hemodynamic stable alert and oriented and speaking in full sentences. Speech is clear. CT head was okay. CT abdomen pelvis and gallbladder ultrasound showed possible acute cholecystitis. Patient also has elevated LFTs. ER spoke with GI and surgery. There is no GI on-call to do ERCP so surgery recommended transfer to tertiary care. ER talk to [facility] and patient was accepted in transfer but they do not have beds tonight. So we are called for admission. Patient is seen sitting on the chair comfortably. No fevers. Currently no abdominal pain. Currently no nausea. No chest pain or shortness of breath. Has some chronic dry cough. Has some mild headache now. No runny nose. Normal bowel and bladder movements. Hemodynamically stable. Complains of some mild left groin pain. Past medical history. As mentioned above Past surgical history. Brachytherapy. CABG. Cardiac cath and s/p stent placements. Colonoscopy with biopsy. Combined right and left heart caths EGD. EGD with biopsy. Dual-chamber pacemaker placement. Needle punch biopsy of prostate. Small bowel endoscopy with biopsy. Video capsule endoscopy. Social history. . Quit smoking in 1997. Smoked 2 packs a day for 10 years. No alcohol use. No drug use. Family history. Son has arthritis. Blood disorder. Diabetes. Brother has asthma. Maternal grandfather had stomach cancer. Brother had WA. Mother had WA at age 82. Had mental disorder. Father had lung disorder. Allergies Allergy/AdvReac Type Severity Reaction Status Date / Time methylprednisolone AdvReac Severe AMS Verified 02/03/23 17:57 hydromorphone [From Dilaudid] AdvReac Intermediate Nausea Verified 02/03/23 17:57 prednisone AdvReac Intermediate INCREASE Verified 02/03/23 17:57 BLOOD SUGAR Home Medications Medication Instructions Recorded Confirmed Type atorvastatin 80 mg tablet 80 mg PO QPM 11/13/17 02/03/23 History fluticasone propionate 50 2 spray intranasal DAILY 11/13/17 02/03/23 History mcg/actuation nasal spray,suspension (Flonase Allergy Relief) insulin degludec 200 unit/mL (3 100 unit subcut QAM 11/13/17 02/03/23 History mL) subcutaneous pen (Tresiba FlexTouch U-200 insulin) nitroglycerin 0.4 mg sublingual 0.4 mg sublingual DIRECTED PRN 11/13/17 02/03/23 History tablet (Nitrostat) Chest Pain etanercept 50 mg/mL (1 mL) 1 dose subcut WK 04/10/18 02/03/23 History subcutaneous pen injector (Enbrel SureClick) furosemide 80 mg tablet (Lasix) 80 mg PO QAM 04/20/18 02/03/23 History omeprazole 20 mg tablet,delayed 20 mg PO BID #60 tabs 10/14/19 02/03/23 Rx release allopurinol 300 mg tablet 300 mg PO DAILY 06/09/20 02/03/23 History aspirin 81 mg tablet,delayed 81 mg PO DAILY 06/09/20 02/03/23 History release (Beba Low Dose Aspirin) folic acid 1 mg tablet 1 mg PO DAILY 06/09/20 02/03/23 History insulin aspart U-100 100 unit/mL 0 unit subcut TIDM 10/29/20 02/03/23 History (3 mL) subcutaneous pen (Novolog FlexPen U-100 Insulin aspart) Lactobacillus acidophilus 10 10,000 mmu cells PO DAILY 05/19/21 02/03/23 History billion cell capsule (Probiotic) tamsulosin 0.4 mg capsule 0.4 mg PO DAILY 06/27/21 02/03/23 History albuterol sulfate 90 mcg/actuation 2 puff inhalation Q4H PRN 09/20/21 02/03/23 History aerosol inhaler (ProAir HFA) COUGH/SHORTNESS OF BREATH betamethasone dipropionate 0.05 % 1 applic topical BID PRN ECZEMA 09/20/21 02/03/23 History topical cream FLARE UPS octreotide acetate 50 mcg/mL 50 mcg subcut BID 09/20/21 02/03/23 History injection solution triamcinolone acetonide 0.1 % 1 applic topical BID PRN Skin 09/20/21 02/03/23 History topical ointment Irritation cholecalciferol (vitamin D3) 125 5,000 unit PO QAM #30 tabs 10/05/21 02/03/23 Rx mcg (5,000 unit) tablet albuterol sulfate 2.5 mg/3 mL 2.5 mg inhalation DIRECTED PRN 02/03/23 02/03/23 History (0.083 %) solution for nebulization Shortness Of Breath Or Wheezing cephalexin 500 mg capsule 500 mg PO BID 02/03/23 02/03/23 History diclofenac sodium 1 % topical gel 2 g topical BID 02/03/23 02/03/23 History ezetimibe 10 mg tablet (Zetia) 10 mg PO DAILY 02/03/23 02/03/23 History guaifenesin 600 mg tablet, 600 mg PO Q12H PRN Congestion 02/03/23 02/03/23 History extended release 12 hr (Mucinex) isosorbide mononitrate 60 mg 60 mg PO QAM 02/03/23 02/03/23 History tablet,extended release 24 hr lifitegrast 5 % eye drops in a 1 drp OPB BID 02/03/23 02/03/23 History dropperette (Xiidra) liraglutide 0.6 mg/0.1 mL (18 mg/3 1.8 mg subcut DAILY 02/03/23 02/03/23 History mL) subcutaneous pen injector (Victoza 3-Kei) Past Med/Surg History Medical History GI bleed GI bleed Anemia of chronic disease CHF (congestive heart failure) History of COVID-19 02/2021>NO SYMPTOMS *TESTED AT [facility] Chronic GI bleeding Pacemaker Chronic diastolic CHF (congestive heart failure) Hx of gout History of prostate cancer radiation seeds History of colon polyps Osteoarthritis Diverticular disease GERD (gastroesophageal reflux disease) Diabetes mellitus, type 2 Anemia IRON INFUSIONS EVERY OTHER WEEK Hyperlipidemia Hypertension Chronic obstructive pulmonary disease On home oxygen therapy 2L N/C AT HS WITH CPAP Sleep apnea CPAP WITH O2 AT 2L Psoriasis Obesity CKD (chronic kidney disease), stage IV SNOW (iron deficiency anemia) IDDM (insulin dependent diabetes mellitus) TIA (transient ischemic attack) Psoriatic arthritis Surgical History History of cardiac cath had 4 total--last 2016 @ [facility] History of colonoscopy History of esophagogastroduodenoscopy (EGD) History of heart artery stent x6 stents total History of prostate biopsy malignant History of tooth extraction S/P CABG x 3 2008 @ [facility]---follows with Dr. 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 ENT- oropharynx clear Neck- supple, no JVD Lungs- clear to auscultation no wheezing or crackles. Heart- regular rhythm; no murmur, no gallop. Abdomen- normal bowel sounds, soft, nontender, no distension. Extremities- lower extremity pretibial edema present , no erythema seen.right second finger at tip slight edema and erythema .Left groin no significant rash seen. Neuro- alert, oriented x 3; PERRL, no facial palsy; no dysarthria; moves extremities. stands without support. Skin- warm & dry Results & Data Results & Data Vital Signs (Past 12 Hours) Vital Signs Temp Pulse Pulse Resp BP BP Pulse Ox 02/03/23 18:00 96 H 18 115/79 98 02/03/23 14:40 96 H 18 135/67 97 02/03/23 13:50 95 H 18 138/62 96 02/03/23 12:24 88 02/03/23 11:56 18 02/03/23 11:56 02/03/23 11:56 36.7 C 84 16 113/69 95 O2 Del Method 02/03/23 18:00 Room Air 02/03/23 14:40 Room Air 02/03/23 13:50 Room Air 02/03/23 12:24 02/03/23 11:56 02/03/23 11:56 Room Air 02/03/23 11:56 Diagnostic Findings Laboratory Results WBC 12.52 K/ul (4.8-10.8) H 02/03/23 12:20 RBC 3.71 M/uL (4.70-6.10) L 02/03/23 12:20 Hgb 10.9 g/dl (14.0-18.0) L 02/03/23 12:20 Hct 33.9 % (42.0-52.0) L 02/03/23 12:20 MCV 91.4 fL (80.0-100.0) 02/03/23 12:20 MCH 29.4 pg (25.0-34.0) 02/03/23 12:20 MCHC 32.2 g/dL (32.0-36.0) 02/03/23 12:20 RDW Std Deviation 53.7 fL (36.4-46.3) H 02/03/23 12:20 RDW Coeff of Joey 16.2 % (11.5-14.5) H 02/03/23 12:20 Plt Count 210 K/uL (130-400) 02/03/23 12:20 MPV 9.8 fL (9.4-12.4) 02/03/23 12:20 Immature Gran % (Auto) 0.4 % 02/03/23 12:20 Neut % (Auto) 89.8 % 02/03/23 12:20 Lymph % (Auto) 6.4 % 02/03/23 12:20 Hernando % (Auto) 2.6 % 02/03/23 12:20 Eos % (Auto) 0.4 % 02/03/23 12:20 Baso % (Auto) 0.4 % 02/03/23 12:20 Neut # (Auto) 11.25 K/uL (1.40-6.50) H 02/03/23 12:20 Lymph # (Auto) 0.80 K/uL (1.20-3.40) L 02/03/23 12:20 Hernando # (Auto) 0.32 K/uL (0.11-0.59) 02/03/23 12:20 Eos # (Auto) 0.05 K/uL (0.00-0.50) 02/03/23 12:20 Baso # (Auto) 0.05 K/uL (0.00-0.20) 02/03/23 12:20 Immature Gran # (Auto) 0.05 K/uL (0.01-0.20) 02/03/23 12:20 PT 11.5 Seconds (9.0-12.0) 02/03/23 12:20 INR 1.1 (0.9-1.1) 02/03/23 12:20 APTT 28 Seconds (21-31) 02/03/23 12:20 PTT Ratio 1.0 02/03/23 12:20 Sodium 136 mmol/L (136-145) 02/03/23 12:20 Potassium 3.9 mmol/L (3.5-5.1) 02/03/23 12:20 Chloride 98 mmol/L (98-107) 02/03/23 12:20 Carbon Dioxide 29 mmol/L (21-32) 02/03/23 12:20 Anion Gap 9 (3-11) 02/03/23 12:20 BUN 34 mg/dl (6-23) H 02/03/23 12:20 Creatinine 2.01 mg/dl (0.6-1.4) H 02/03/23 12:20 Est Cr Clr Drug Dosing Not Reportable 02/03/23 12:20 Est GFR ( Amer) 35.3 ml/min 02/03/23 12:20 Est GFR (Non-Af Amer) 30.4 ml/min 02/03/23 12:20 BUN/Creatinine Ratio 16.9 (10-20) 02/03/23 12:20 Glucose 83 mg/dl (70-99(Fasting)) 02/03/23 12:20 POC Glucose 80 mg/dl (70-99) 02/03/23 22:32 Lactate 1.6 mmol/L (0.4-2.0) 02/03/23 14:18 Calcium 8.3 mg/dl (8.6-10.3) L 02/03/23 12:20 Magnesium 1.8 mg/dl (1.7-2.4) 02/03/23 12:20 Total Bilirubin 3.7 mg/dl (0.2-1.0) H 02/03/23 12:20 AST 335 U/L (13-39) H 02/03/23 12:20 ALT 233 U/L (7-52) H 02/03/23 12:20 Alkaline Phosphatase 430 U/L (34-104) H 02/03/23 12:20 Troponin I High Sens 14.8 pg/ml (0-20) 02/03/23 12:20 Total Protein 6.7 gm/dl (6.0-8.3) 02/03/23 12:20 Albumin 3.4 gm/dl (3.4-5.0) 02/03/23 12:20 Globulin 3.3 gm/dl (2.5-4.0) 02/03/23 12:20 Albumin/Globulin Ratio 1.0 (0.9-2) 02/03/23 12: Lipase 45 U/L (11-82) 02/03/23 12:20 Urine Color Dark Yellow 02/03/23 14:31 Urine Appearance Clear (Clear) 02/03/23 14:31 Urine pH 7.0 (4.5-7.5) 02/03/23 14:31 Ur Specific [place] 1.014 (1.000-1.030) 02/03/23 14:31 Urine Protein 3+ (Negative) H 02/03/23 14:31 Urine Glucose (UA) Negative (Negative) 02/03/23 14:31 Urine Ketones Negative (Negative) 02/03/23 14:31 Urine Blood Negative (Negative) 02/03/23 14:31 Urine Nitrite Negative (Negative) 02/03/23 14:31 Urine Bilirubin 1+ (Negative) H 02/03/23 14:31 Urine Urobilinogen Positive (Negative) H 02/03/23 14:31 Ur Leukocyte Esterase 1+ (Negative) H 02/03/23 14:31 Urine WBC (Auto) 10-30 /hpf (0-5) H 02/03/23 14:31 Urine RBC (Auto) 0-4 /hpf (0-4) 02/03/23 14:31 U Hyaline Cast (Auto) 1-5 /lpf (0-5) 02/03/23 14:31 U Epithel Cells (Auto) 20-30 /lpf (0-5) H 02/03/23 14:31 Urine Bacteria (Auto) Negative (Negative) 02/03/23 14:31 Impressions Chest X-Ray 02/03/23 13:09 XR chest 1V portable CLINICAL HISTORY: neuro deficit, acute stroke suspected TECHNIQUE: Single frontal radiograph of the chest was obtained. Comparison: Comparison is made to chest radiograph 10/03/2021 FINDINGS: Lines and tubes are stable. The cardiomediastinal silhouette is normal. The lungs are clear. No evidence of pleural effusion or pneumothorax. IMPRESSION: No acute chest disease. ACT 112: Negative or not required by law. Electronically signed by: Madhav Hare M.D. 02/03/2023 2:[address] 02/03/23 13:09 CT OF THE HEAD WITHOUT CONTRAST CLINICAL HISTORY: neuro deficit, acute stroke suspected. Right-sided weakness. COMPARISON STUDY: Head CT October 03, 2021. MRI of the brain October 25, 2016. CT DOSE: 657.02 mGy.cm TECHNIQUE: Helical axial images of the head were obtained without IV contrast. Automated exposure control was utilized for the study. A dose lowering technique was utilized adhering to the principles of ALARA. FINDINGS: No acute intracranial hemorrhage, midline shift or mass effect is present. The ventricular system is unremarkable. The basal cisterns are patent. No extra-axial collections are present. There are no findings to suggest acute dural sinus thrombosis or acute territorial infarct. White matter hypodensities favor small vessel disease. No calvarial fractures are present. Moderate ethmoid sinus mucosal thickening is noted. There is a small air-fluid level within the right maxillary sinus. IMPRESSION: No acute intracranial findings. ACT 112: Negative or not required by law. Electronically signed by: Vitaly Tadeo M.D. 02/03/2023 1:33 PM Abdomen/Pelvis CT 02/03/23 14:[address] WITHOUT CONTRAST CT DOSE: 1352.6 mGy.cm HISTORY: Right upper quadrant pain. TECHNIQUE: Multiaxial CT images of the abdomen and pelvis were performed without contrast. A dose lowering technique was utilized adhering to the principles of ALARA. COMPARISON STUDY: Abdomen and pelvis CT 09/20/2021. FINDINGS: There is a punctate calcified granuloma within the right lower lobe. No pneumoperitoneum. No pneumatosis. No acute fractures identified. There are poststernotomy changes and pacemaker wires again noted. The unenhanced liver, spleen, adrenal glands, pancreas, and right kidney are unremarkable. No renal or ureteral stones. No hydronephrosis. There is a stable 6 mm hyperdense lesion within the lower pole of the left kidney. This is incompletely characterized on this noncontrast study but favors a hyperdense cyst given the stability. Moderate calcified plaque within the normal caliber abdominal aorta. The gallbladder is mildly distended. There is minimal pericholecystic inflammatory change suggested. Therefore, this raises the possibility of an early acute cholecystitis. There are a few punctate stones within the gallbladder lumen. The common bile duct is mildly distended up to 1 cm. Stable prominent iliac chain lymph nodes again noted. No inguinal lymphadenopathy. No pelvic free fluid. Multiple brachytherapy seeds within the prostate gland. The bladder is unremarkable. Colonic diverticulosis. No evidence for acute diverticulitis. No bowel wall thickening or obstruction. Normal appendix. IMPRESSION: 1. The gallbladder is mildly distended. There is minimal pericholecystic inf lammatory change suggested. Therefore, this raises the possibility of an early acute cholecystitis. Follow-up ultrasound or HIDA scan can be performed for further evaluation. 2. Probable cholelithiasis. 3. The common bile duct is mildly distended with a 1 cm. 4. No bowel wall thickening or obstruction. 5. Colonic diverticulosis. No evidence for acute diverticulitis. ACT 112: Negative or not required by law. Electronically signed by: Josue Mahoney M.D. 02/03/2023 2:53 PM Gallbladder Ultrasound 02/03/23 15:18 US gallbladder CLINICAL HISTORY: cholecystitis TECHNIQUE: Multiple real-time sonographic images of the right upper quadrant were obtained. Comparison: Comparison is made to CT abdomen pelvis 02/03/2023 FINDINGS: Exam is limited by patient body habitus. The liver is diffusely homogenous with normal contour and echogenicity. No focal mass lesions are seen. No intrahepatic ductal dilatation is seen. Gallbladder is distended, gallbladder wall measures 3.6 mm with sludge noted. No definite stones are seen although evaluation is limited. A sonographic Gutierrez's sign was not elicited by the drycleaner. The common duct measures 1.1 cm in diameter at the level of the hepatic artery. The visualized portions of the pancreas appear normal. The right kidney shows normal echogenicity, cortical thickness and renal conto ur. The right kidney shows no evidence of hydronephrosis or mass. No ascites or free fluid is seen in Antonio's pouch. IMPRESSION: Limited exam. Gallbladder sludge without evidence of acute cholecystitis. ACT 112: Negative or not required by law. Electronically signed by: Madhav Hare M.D. 02/03/2023 5:01 PM ECG Additional Comments: ECG. Atrial sensed ventricular paced rhythm with a rate of 66. Code Status & VTE Plan VTE Prophylaxis Plan VTE Prophylaxis will be ordered: Yes
[2023-02-04] MEDS ORDERED: HEPARIN 100 UNIT/ML 5ML FLUSH FLUSH PRN (03:23)
--- OUTSIDE RECORDS SUMMARY | 2023-02-04 04:19 | External Medical Summary | Summary of Care ---
Author Name Unknown Organization [facility] Address [address] [place] [address] Phone [phone] Care Team Providers Care Wrapper Operator Name Role Phone Nicola Prado MD Primary Care Provide r Reason for Visit * Reason Onset Date Comments Test Results 01/31/2023 Encounter Details Date Type Department Care Team (Late st Contact Info) Description 01/31/[address] [phone] Nicola Prado MD [address] [place] [address] [place] [address] Test Results Allergies Active Allergy Reactions Criticality Noted Date Comments Hydromorphone High 09/20/2021 Other reaction(s): Nausea Other reaction(s): Nausea 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/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 Other reaction(s): AMS Other reaction(s): AMS Prasugrel 04/02/2016 bleeding Prednisone High 09/20/2021 Other reaction(s): INCREASE BLOOD SUGAR Other reaction(s): INCREASE BLOOD SUGAR documented as of this encounter (statuses as of 02/03/2023) Medications Medication Sig Dispensed Refills Start Date [...] less than 8.0% ([facility]),Type 2 diabetes mellitus with stage 4 chronic kidney disease, with long-term current use of insulin ([facility]) Inject 1.8 mg under the skin daily. [...] less than 8.0% ([facility]) Inject 100 Units under the skin daily. [...] AHP. 0 12/02/2022 Active Easy Touch Pen [place] 31G X 8 MM (Insulin Pen Needle)Indications:T [...] less than 8.0% ([facility]) Inject 12 units with breakfast and supper PLUS correction factor of 1:25 if over 140 mg/dL. Up to 120 units per day. 110 mL 3 12/28/2022 Active [employer] UltraSoft LancetsIndications:T ype 2 diabetes mellitus with hemoglobin A1c goal of less than 8.0% ([facility]) Test blood sugar up to five times daily; dx E11.9 450 Each 3 01/02/2023 Active [employer] Ultra In Vitro Strip (Glucose Blood)Indications:Ty pe 2 diabetes mellitus with hemoglobin A1c goal of less than 8.0% ([facility]) Test 3-4 times a day 100 Strip 3 01/11/2023 Active [employer] No Coding Blood Gluc In Vitro Strip (Glucose Blood) Use as directed to test blood sugars up to four times daily DxE11.9 400 Strip 3 01/12/2023 Active [employer] Voice Blood Glucose w/Device Kit Use as [...] as of this encounter (statuses as of 02/03/2023) Active Problems Problem Noted Date Diagnosed Date [...] as of this encounter (statuses as of 02/03/2023) Resolved Problems Problem Noted Date Diagnosed Date [...] use aero chamber. Test performed by Dori [employer] [facility] CPFT Body mass index (BMI) of 45. [...] MANAGEMENT 07/22/200812/01 Overview: Kianna Lyn, RN [phone] Examination following surgery 07/11/2008 12/31/2011 Difficult intubation 07/10/2008 021 Overview: Patient seen and examined in OR#1.Possible difficult intubation.TM distance about 5 cms.MP 3-4. Will plan FOB electively Due to current situation. EXAMINATION OF PARTICIPANT I N CLINICAL TRIAL-genomics 07/04/2008 05/30/2009 Overview: Renamed Per Clinical Trials Billing Project. Study Titile: Genomic Markers for Patients with Cardiovascular Disease Project #[id number] PI: Miriam Roque MD Please call [phone] with study related questions Chronic coronary artery [...] not at goal 07/04/200809/06 GENOMICS CARDIO RESEARCH OTHER*[id number] 07/04/2008 03/23/2016 Overview: Renamed Per Clinical Trials Billing Project. Study Titile: Genomic Markers for Patients with Cardiovascular Disease Project #[id number] PI: Miriam Roque MD Please call [phone] with study related questions Kidney disease, chronic, [...] as of this encounter (statuses as of 02/03/2023) Immunizations Name Administration Dates Next Due COVID-19 [...] 02/22/2023 11:20 AM EST Office Visit Pharmacy, [address] [place] [address] [place] [address] 03/04/2023 10:30 AM EST Office Visit Gastroenterology [address] [place] [address] Marielena Hall CRNP [address] [place] [address] 03/07/2023 8:20 AM EST Office Visit Dermatology [address] [place] [address] Meron Aragon PA-C [address] [place] [address] [place] [address] 03/09/2023 2:30 PM EST Office Visit Orthopaedics [facility] [address] [place] [address] Bayron Reeves MD [address] [place] [address] 03/28/2023 9:30 AM EST Office Visit Cardiology, [facility] [address] [place] [address] Nevaeh Linda PA-C [address] [place] [address] [place] [address] 03/29/2023 11:00 AM EST Office Visit Family Medicine [address] [place] [phone] Nicola Prado MD [address] [place] [address] [place] [address] 03/29/2023 12:30 PM EST Office Visit Cardiology [address] [place] [address] Blair Hannah PA-C [address] [place] [address] 04/05/2023 9:45 AM EST Office Visit Urology, [facility] [address] [place] [address] Denny Armando MD [address] [place] [address] [place] [address] 05/20/2023 2:00 PM EDT Office Visit Rheumatology [address] [place] [phone] Jenni Perez CRNP [address] [place] [address] [place] [address] 06/02/2023 11:00 AM EDT Nurse Only Ancillary [address] [place] [address] Nurse Neeraj [address] [place] [address] 10/12/2023 11:20 AM EDT Office [facility] [place] [phone] Eulalia Milligan DO [address] [place] [address] 10/25/2023 10:00 AM EDT Cardiac Studies Cardiology [address] [place] [address] [facility] [address] [place] [address] 12/12/2023 3:00 PM EDT Office Visit Nephrology [address] [place] [address] Quin Narvaez MD [address] [place] [phone] Scheduled Procedures Name Priority Associated Diagnoses Date/Ti [...] this encounter Medical Devices Implanted Type Area Steel Chipper Device Identifier Shelf Expiration Date Model / Serial / Lot Sut Steel 6 [id number] - [id number] Implanted:Qty: 6 on 07/10/2008 at OR [facility] [place] N/A: Chest DO NOT USE 08/14/2012 [id number] / / [id number] documented as of this encounter Advance Directives Documents on File Type Date Recorded Patient Distributor Of Directories Expl anation Power of Size Roller Operator 06/26/2019 POWER OF A TTORNEY Advance [...] the patient have Health Care Power of Size Roller Operator? No Code Status History Code Status [...] patient or by statute hierarchy) Care Teams Wrapper Operator Relationship Specialty Start Date End Date Nicola Prado MD [address] [place] [address] [place] [address] PCP - General Family Medicine 06/19/21 documented as of this encounter
--- OUTSIDE RECORDS SUMMARY | 2023-02-04 04:19 | External Medical Summary | Summary of Care ---
Author Name Unknown Organization [facility] Address [address] [place] [address] Phone [phone] Care Team Providers Care Door To Door Salesperson Name Role Phone Nicola Prado MD Primary Care Provide r Reason for Visit * Reason Onset Date Comments Test Results 01/31/2023 Encounter Details Date Type Department Care Team (Late st Contact Info) Description 01/31/[address] [phone] Nicola Prado MD [address] [place] [address] [place] [address] Test Results Allergies Active [...] AHP. 0 12/02/2022 Active Easy Touch Pen [place] 31G X 8 MM (Insulin Pen Needle)Indications:T [...] less than 8.0% ([facility]) Inject 12 units with breakfast and supper PLUS correction factor of 1:25 if over 140 mg/dL. Up to 120 units per day. 110 mL 3 12/28/2022 Active [employer] UltraSoft LancetsIndications:T ype 2 diabetes mellitus with hemoglobin A1c goal of less than 8.0% ([facility]) Test blood sugar up to five times daily; dx E11.9 450 Each 3 01/02/2023 Active [employer] Ultra In Vitro Strip (Glucose Blood)Indications:Ty pe 2 diabetes mellitus with hemoglobin A1c goal of less than 8.0% ([facility]) Test 3-4 times a day 100 Strip 3 01/11/2023 Active [employer] No Coding Blood Gluc In Vitro Strip (Glucose Blood) Use as directed to test blood sugars up to four times daily DxE11.9 400 Strip 3 01/12/2023 Active [employer] Voice Blood Glucose w/Device Kit Use as [...] Problem Noted Date Diagnosed Date Atherosclerosis of [place] co ronary artery of [place] heart with stable angina pectoris 12/27/2022 Atherosclerosis of coronary artery bypass graft of [place] heart with angina pectoris 10/13/2022 Encounter for [...] urinary tract symp toms 07/13/2001 Atherosclerosis of [place] co ronary artery of [place] heart without angina pectoris documented as of [...] use aero chamber. Test performed by [facility] [employer] CPFT Body mass index (BMI) of 45. [...] (transient ischemic attack) 02/04/2016 11/23/2017 Overview: [facility] Anemia of chronic renal [...] MANAGEMENT 07/22/200812/01 Overview: Kianna Lyn, RN [phone] Examination following surgery 07/11/2008 12/31/2011 Difficult intubation 07/10/2008 021 Overview: Patient seen and examined in OR#1.Possible difficult intubation.TM distance about 5 cms.MP 3-4. Will plan FOB electively Due to current situation. EXAMINATION OF PARTICIPANT I N CLINICAL TRIAL-genomics 07/04/2008 05/30/2009 Overview: Renamed Per Clinical Trials Billing Project. Study Titile: Genomic Markers for Patients with Cardiovascular Disease Project #[id number] PI: Miriam Rqoue MD Please call [phone] with study related questions Chronic coronary artery [...] not at goal 07/04/200809/06 GENOMICS CARDIO RESEARCH OTHER*[id number] 07/04/2008 03/23/2016 Overview: Renamed Per Clinical Trials Billing Project. Study Titile: Genomic Markers for Patients with Cardiovascular Disease Project #[id number] PI: Miriam Roque MD Please call [phone] with study related questions Kidney disease, chronic, [...] encounter Miscellaneous Notes * Telephone Encounter - Mandi Lee LPN - 02/03/2023 10:46 AM EST See other encounter. * Telephone Encounter - Nicola Prado MD [...] 02/22/2023 11:20 AM EST Office Visit Pharmacy, [address] [place] [address] [place] [address] 03/04/2023 10:30 AM EST Office Visit Gastroenterology [address] [place] [address] Marielena Hall CRNP [address] [place] [address] 03/07/2023 8:20 AM EST Office Visit Dermatology [address] [place] [address] Meron Aragon PA-C [address] [place] [address] [place] [address] 03/09/2023 2:30 PM EST Office Visit Orthopaedics [facility] [address] [address] Bayron Reeves MD [address] [place] [address] 03/28/2023 9:30 AM EST Office Visit Cardiology, [facility] [address] [address] Nevaeh Linda PA-C [address] [place] [address] [place] [address] 03/29/2023 11:00 AM EST Office Visit Family Medicine [address] [place] [phone] Nicola Prado MD [address] [place] [address] [place] [address] 03/29/2023 12:30 PM EST Office Visit Cardiology [address] [place] [address] Blair Hannah PA-C [address] [place] [address] 04/05/2023 9:45 AM EST Office Visit Urology, [facility] [address] [place] [address] Denny Armando MD [address] [facility] [address] [place] [address] 05/20/2023 2:00 PM EDT Office Visit Rheumatology [address] [place] [phone] Jenni Perez CRNP [facility] [place] [address] 06/02/2023 11:00 AM EDT Nurse Only Ancillary [address] [place] [address] Nurse Neeraj [address] [place] [address] 10/12/2023 11:20 AM EDT Office Visit Sleep Disorders Ctr [facility] [address] [place] [phone] Eulalia Milligan DO [address] [place] [address] 10/25/2023 10:00 AM EDT Cardiac Studies Cardiology [address] [place] [address] Neeraj [facility] 132 [facility] [place] [address] 12/12/2023 3:00 PM EDT Office Visit Nephrology [address] [place] [address] Quin Narvaez MD [address] [place] [address] Scheduled Procedures Name Priority Associated Diagnoses Date/Ti [...] encounter Medical Devices Implanted Type Area Film Color Tester Device Identifier Shelf Expiration Date Model / Serial / Lot Sut Steel 6 [id number] - [id number] Implanted:Qty: 6 on 07/10/2008 [place] [facility] [place]A: Chest DO NOT USE 08/14/2012 [id number] / / [id number] documented as of this encounter Advance Directives Documents on File Type Date Recorded Patient Directory Clerk Expl anation Power of Air Intercept Controller Supervisor 06/26/2019 POWER OF A TTORNEY Advance [...] the patient have Health Care Power of Air Intercept Controller Supervisor? No Code Status History Code Status [...] patient or by statute hierarchy) Care Teams Door To Door Salesperson Relationship Specialty Start Date End Date Nicola Prado MD [address] [place] [address] [place] [phone] PCP - General Family Medicine 06/19/21 documented as of this encounter
[2023-02-04] MEDS: GLUCOSE 10 TAB/TUBE PO PRN ×2 (05:34→06:06)
[2023-02-04 05:41] LABS: Basophils # (auto) 0.03 K/uL (0.00-0.20); Basophils % (auto) 0.3 %; Eosinophils # (auto) 0.45 K/uL (0.00-0.50); Eosinophils % (auto) 4.9 %; Hematocrit (blood only) 30.4 % (42.0-52.0); Hemoglobin 9.7 g/dl (14.0-18.0); Immature Granulocytes # (auto) 0.03 K/uL (0.01-0.20); Immature Granulocytes % (auto) 0.3 %; Lymphocytes # (auto) 0.91 K/uL (1.20-3.40); Lymphocytes % (auto) 9.8 %; Mean Corpuscular Hemoglobin 29.6 pg (25.0-34.0); Mean Corpuscular Hgb Conc 31.9 g/dL (32.0-36.0); Mean Corpuscular Volume 92.7 fL (80.0-100.0); Mean Platelet Volume 9.4 fL (9.4-12.4); Monocytes # (auto) 0.37 K/uL (0.11-0.59); Neutrophils # (auto) 7.47 K/uL (1.40-6.50); Neutrophils % (auto) 80.7 %; Platelet Count 182 K/uL (130-400); RDW Coefficient of Variation 16.4 % (11.5-14.5); RDW Standard Deviation 55.4 fL (36.4-46.3); Red Blood Count 3.28 M/uL (4.70-6.10); White Blood Count 9.26 K/ul (4.8-10.8)
[2023-02-04] MEDS: CEFEPIME 2,000 MG in SYRINGE 0 ML IV SCH ×2 (05:44→18:18)
[2023-02-04 06:01] LABS: Albumin Level 3.1 gm/dl (3.4-5.0); BUN Creatinine Ratio 15.2 (10-20); Bilirubin Direct 2.7 mg/dl (0-0.2); Bilirubin,Total 4.3 mg/dl (0.2-1.0); Calcium 7.6 mg/dl (8.6-10.3); Creatinine Clr Calc Pharmacy 30.8 ml/min; Est GFR (African American) 32.1 ml/min; Est GFR (Non-African American) 27.7 ml/min; Magnesium 1.7 mg/dl (1.7-2.4); Potassium 3.3 mmol/L (3.5-5.1); Total Protein 6.2 gm/dl (6.0-8.3)
[2023-02-04] MEDS: D5W AND NSS 1,000 ML IV SCH ×2 (06:21→19:42)
[2023-02-04 07:50] LABS: Estimated Average Glucose 180 mg/dl; Hemoglobin A1C 7.9 % (4.5-5.6)
[2023-02-04] MEDS: metroNIDAZOLE 500 MG/100 ML BAG IV SCH ×2 (08:17→17:05)
[2023-02-04] MEDS ORDERED: DICLOFENAC SOD 1% GEL 100 GM TUBE EXT SCH (09:00)
[2023-02-04] MEDS ORDERED: EZETIMIBE 10 MG TAB PO SCH (09:00)
[2023-02-04] MEDS ORDERED: PANTOprazole 40 MG TAB PO SCH (09:00)
[2023-02-04] MEDS ORDERED: ISOSORBIDE MONO EXTENDED REL 60 MG TABCR PO SCH (09:00)
[2023-02-04] MEDS ORDERED: ASPIRIN 81 MG ECTAB PO SCH (09:00)
[2023-02-04] MEDS ORDERED: ADVANCED PROBIOTIC 1250 MG CAPSULE PO SCH (09:00)
[2023-02-04] MEDS ORDERED: CHOLECALCIFEROL 5,000 UNITS 125 MCG TAB PO SCH (09:00)
[2023-02-04] MEDS ORDERED: OCTREOTIDE ACETATE 100 MCG/ML VIAL SQ SCH (09:00)
[2023-02-04] MEDS ORDERED: FLUTICASONE PROPIONATE NA SPR 16 GM BTL SCH (09:00)
[2023-02-04] MEDS ORDERED: LANTUS PER UNIT CHARGE SQ SCH ×2 (09:00→21:00)
[2023-02-04] MEDS ORDERED: TAMSULOSIN HCL 0.4 MG CAP PO SCH (09:00)
[2023-02-04] MEDS ORDERED: allopurinoL 300 MG TAB PO SCH (09:00)
[2023-02-04] MEDS ORDERED: FOLIC ACID 1 MG TAB PO SCH (09:00)
[2023-02-04] MEDS ORDERED: ARTIFICIAL TEARS OP PRN (13:00)
--- NOTE | 2023-02-04 18:06 | Discharge Summary ---
Date of Service February 04, 2023 Admission HPI Per Admitting Provider 82-year-old male with past medical history significant for type 2 diabetes, chronic kidney disease stage IV, chronic respiratory failure with hypoxia, gout, COPD, obstructive sleep apnea, hyperlipidemia, pulmonary hypertension, chronic diastolic CHF, history of CAD s/p stent, s/p CABG, history of Mobitz type I Wenckebach block, complete heart block s/p cardiac pacemaker, morbid obesity, Henning's esophagus, vitamin B12 deficiency, BPH, generalized osteoarthritis, chronic pain of right hip, iron deficiency anemia due to chronic blood loss, anemia of chronic kidney disease, psoriasis, psoriatic arthropathy, polyarticular psoriatic arthropathy, prostate cancer status post seed implantation, patient is getting iron infusions per heme-onc. Also on octreotide 50 mg injection twice daily for AVM bleed and has not required blood transfusion since September 2021 , history of C. difficile presents with acute cholecystitis elevated LFTs. Patient states yesterday night after eating his dinner he had abdominal pain and was worried about diverticulitis but the pain got resolved and he did okay. In the morning he went for the breakfast around 7 AM with a friend. Around 7:30 AM when the food was served he suddenly blacked out he could not see anything does not know what happened people came to help him as he was walking he fell couple of times but did not hit his head and had no injuries. He was taken to his son's house. At the time he seemed people could not understand what he was talking. It lasted for about an hour. After 1 hour he seems to come back to his usual self. Worried about stroke or mini stroke and called PCP and was brought in here. In the ER he was hemodynamic stable alert and oriented and speaking in full sentences. Speech is clear. CT head was okay. CT abdomen pelvis and gallbladder ultrasound showed possible acute cholecystitis. Patient also has elevated LFTs. ER spoke with GI and surgery. There is no GI on-call to do ERCP so surgery recommended transfer to tertiary care. ER talk to [place] and patient was accepted in transfer but they do not have beds tonight. So we are called for admission. Patient is seen sitting on the chair comfortably. No fevers. Currently no abdominal pain. Currently no nausea. No chest pain or shortness of breath. Has some chronic dry cough. Has some mild headache now. No runny nose. Normal bowel and bladder movements. Hemodynamically stable. Complains of some mild left groin pain. Past medical history. As mentioned above Past surgical history. Brachytherapy. CABG. Cardiac cath and s/p stent plac ements. Colonoscopy with biopsy. Combined right and left heart caths EGD. EGD with biopsy. Dual-chamber pacemaker placement. Needle punch biopsy of prostate. Small bowel endoscopy with biopsy. Video capsule endoscopy. Social history. . Quit smoking in 1997. Smoked 2 packs a day for 10 years. No alcohol use. No drug use. Family history. Son has arthritis. Blood disorder. Diabetes. Brother has asthma. Maternal grandfather had stomach cancer. Brother had MD. Mother had MD at age 82. Had mental disorder. Father had lung disorder. Admission Exam Per Admitting Provider General- Not in acute distress Head- atraumatic Eyes- PERRL. ENT- oropharynx clear Neck- supple, no JVD Lungs- clear to auscultation no wheezing or crackles. Heart- regular rhythm; no murmur, no gallop. Abdomen- normal bowel sounds, soft, nontender, no distension. Extremities- lower extremity pretibial edema present , no erythema seen.right second finger at tip slight edema and erythema .Left groin no significant rash seen. Neuro- alert, oriented x 3; PERRL, no facial palsy; no dysarthria; moves extremities. stands without support. Skin- warm & dry Principal Diagnosis Acute cholecystitis Elevated LFTs Discharge Exam General- Not in acute distress Head- atraumatic Eyes- PERRL. ENT- oropharynx clear Neck- supple, no JVD Lungs- clear to auscultation no wheezing or crackles. Heart- regular rhythm; no murmur, no gallop. Abdomen- normal bowel sounds, soft, nontender, no distension. Extremities- lower extremity pretibial edema present , moves extremities Neuro- alert, oriented x 3; PERRL, no facial palsy; no dysarthria; moves extremities. Skin- warm & dry Discharge Data Allergies Allergy/AdvReac Type Severity Reaction Status Date / Time methylprednisolone AdvReac Severe AMS Verified 02/03/23 17:57 hydromorphone [From Dilaudid] AdvReac Intermediate Nausea Verified 02/03/23 17:57 prednisone AdvReac Intermediate INCREASE Verified 02/03/23 17:57 BLOOD SUGAR Consultations 02/03/23 19:52 ED Decision to Admit Stat 02/03/23 20:22 ED Decision to Admit Stat Ordered Studies 02/03/23 13:09 CT head/brain wo con Stat FINDINGS: No acute intracranial hemorrhage, midline shift or mass effect is present. The ventricular system is unremarkable. The basal cisterns are patent. No extra-axial collections are present. There are no findings to suggest acute dural sinus thrombosis or acute territorial infarct. White matter hypodensities favor small vessel disease. No calvarial fractures are present. Moderate ethmoid sinus mucosal thickening is noted. There is a small air-fluid level within the right maxillary sinus. IMPRESSION: No acute intracranial findings. 02/03/23 14:00 CT abd pelvis wo con Stat FINDINGS: There is a punctate calcified granuloma within the right lower lobe. No pneumoperitoneum. No pneumatosis. No acute fractures identified. There are poststernotomy changes and pacemaker wires again noted. The unenhanced liver, spleen, adrenal glands, pancreas, and right kidney are unremarkable. No renal or ureteral stones. No hydronephrosis. There is a stable 6 mm hyperdense lesion within the lower pole of the left kidney. This is incompletely characterized on this noncontrast study but favors a hyperdense cyst given the stability. Moderate calcified plaque within the normal caliber abdominal aorta. The gallbladder is mildly distended. There is minimal pericholecystic inflammatory change suggested. Therefore, this raises the possibility of an early acute cholecystitis. There are a few punctate stones within the gallbladder lumen. The common bile duct is mildly distended up to 1 cm. Stable prominent iliac chain lymph nodes again noted. No inguinal lymphadenopathy. No pelvic free fluid. Multiple brachytherapy seeds within the prostate gland. The bladder is unremarkable. Colonic diverticulosis. No evidence for acute diverticulitis. No bowel wall thickening or obstruction. Normal appendix. IMPRESSION: 1. The gallbladder is mildly distended. There is minimal pericholecystic inflammatory change suggested. Therefore, this raises the possibility of an early acute cholecystitis. Follow-up ultrasound or HIDA scan can be performed for further evaluation. 2. Probable cholelithiasis. 3. The common bile duct is mildly distended with a 1 cm. 4. No bowel wall thickening or obstruction. 5. Colonic diverticulosis. No evidence for acute diverticulitis. 12/21/23 15:18 US gallbladder Stat FINDINGS: Exam is limited by patient body habitus. The liver is diffusely homogenous with normal contour and echogenicity. No focal mass lesions are seen. No intrahepatic ductal dilatation is seen. Gallbladder is distended, gallbladder wall measures 3.6 mm with sludge noted. No definite stones are seen although evaluation is limited. A sonographic Gutierrez's sign was not elicited by the hand printed circuit board assembler. The common duct measures 1.1 cm in diameter at the level of the hepatic artery. The visualized portions of the pancreas appear normal. The right kidney shows normal echogenicity, cortical thickness and renal contour. The right kidney shows no evidence of hydronephrosis or mass. No ascites or free fluid is seen in Antonio's pouch. IMPRESSION: Limited exam. Gallbladder sludge without evidence of acute cholecystitis. Hospital Course (1) Acute cholecystitis: 82 yo M with type 2 diabetes, chronic kidney disease stage IV, chronic respiratory failure with hypoxia, gout, COPD, obstructive sleep apnea, hyperlipidemia, pulmonary hypertension, chronic diastolic CHF, history of CAD s/p stent, s/p CABG, history of Mobitz type I Wenckebach block, complete heart block s/p cardiac pacemaker, morbid obesity, Henning's esophagus, vitamin B12 deficiency, BPH, generalized osteoarthritis, chronic pain of right hip, iron deficiency anemia due to chronic blood loss, anemia of chronic kidney disease, psoriasis, psoriatic arthropathy, polyarticular psoriatic arthropathy, prostate cancer s/p seed implantation, patient is getting iron infusions per heme-onc. Also on octreotide 50 mg injection twice daily for AVM bleed and has not required blood transfusion since September 2021 , history of C. difficile presents with acute cholecystitis elevated LFTs. Patient states yesterday night after eating his dinner he had abdominal pain and was worried about diverticulitis but the pain got resolved and he did okay. In the morning he went for the breakfast around 7 AM with a friend. Around 7:30 AM when the food was served he suddenly blacked out he could not see anything does not know what happened people came to help him as he was walking he fell couple of times but did not hit his head and had no injuries. He was taken to his son's house. At the time he seemed people could not understand what he was talking. It lasted for about an hour. After 1 hour he seems to come back to his usual self. Worried about stroke or mini stroke and called PCP and was brought in here. In the ER he was hemodynamic stable alert and oriented and speaking in full sentences. Speech is clear. CT head was okay. CT abdomen pelvis and gallbladder ultrasound showed possible acute cholecystitis. Patient also has elevated LFTs. ER spoke with GI and surgery. There is no GI on-call to do ERCP so surgery recommended transfer to tertiary care. Acute cholecystitis On CT scan Gallbladder ultrasound shows gallbladder sludge Abdominal pain last night Having elevated LFTs Having leukocytosis Received IV cefepime in the ER continue IV cefepime and also placed on IV Flagyl Gentle fluids N.p.o. No GI on-call for ERCP [facility] available initially at night Accepting Physician as per ER. Continue to monitor Transient strokelike symptoms In morning around 7:30 PM he was confused and people could not understand what he was speaking and was weak seemed to last for about an hour CT head is normal Currently patient is back to his baseline Symptoms could be mostly from the ongoing infection Cont. neurochecks every 4 hours for now and close monitor Patient had similar episode with altered mental status and word finding difficulty in September 2021. CT head was okay at that time. Thought to be from mostly from dehydration and temporary encephalopathy as patient had recent C. difficile at that time ESA on chronic kidney disease stage IV Baseline creatinine 1.9 Presented with. 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 Sliding scale Pharmacy consult added dextrose to fluids as having hypoglycemia Close monitor Right first finger infection On the tip Currently on Keflex which we will hold as patient is getting IV antibiotics Gout On allopurinol Hyperlipidemia On statin and Zetia History of COPD Continue home inhalers and nebs as needed Uses oxygen 2 L as needed Psoriatic arthritis On Enbrel History of prostate cancer Follows with urology and oncology History of GERD On omeprazole BPH Flomax DVT prophylaxis SCD for now in anticipation of procedure Full code Plan to transfer to [facility] Total Time Total Time Spent Total Time Spent (In Minutes): 40 Discharge Plan Discharge Items Patient Disposition: Transfer Acute Care Hospital Reason For Visit: ACUTE CHOLECYSTITIS Discharge Diagnosis: Acute cholecystitis Elevated LFTs Condition on Discharge: Fair Activity: Per Instructions section Non-emergency contact: Surgeon and Handle Bar Assembler Call non-emergency contact if: you have any medication questions and your symptoms worsen Follow-up/Referrals: Nicola Prado MD [Primary Care Provider] - Diet: Nothing by Mouth and Other - See Diet Comment Diet Comment: ok to take medications Addtl Attending Provider Instructions: Patient presents with acute cholecystitis and elevated LFTs - discussed with gen. surgery and GI - need for ERCP , which is not currently available here - therefore [place] to be [place] [facility] Pending Studies at Discharge: Yes Studies:: blood cultx, urine cultx Stand-Alone Forms: My [facility] Nu-Pulse Skilled Items Patient informed of condition?: Yes DNR: No Discharge Level of Care: Other Communicable Disease: No Discharge Prognosis: Other Lines: Peripheral IV Medications and DC Order Prescriptions: Continued Enbrel SureClick 50 mg/mL (0.98 mL) Pen Injector 1 dose subcut WK Rx Instructions: TAKES ON . insulin degludec [Tresiba FlexTouch U-200] 200 unit/mL (3 mL) Insulin Pen 100 unit SUBCUT QAM atorvastatin 80 mg Tablet 80 mg PO QPM nitroglycerin [Nitrostat] 0.4 mg Tablet, Sublingual 0.4 mg Sublingual DIRECTED PRN (Reason: Chest Pain) Rx Instructions: ONE TABLET UNDER THE TONGUE EVERY 5 MINUTES UP TO 3 DOSES. fluticasone propionate [Flonase Allergy Relief] 50 mcg/actuation [place],Suspension 2 spray INTRANASAL DAILY Rx Instructions: EACH NOSTRIL omeprazole 20 mg Tablet,Delayed Release (Dr/Ec) 20 mg PO BID Qty: 60 1RF aspirin [Beba Low Dose Aspirin] 81 mg Tablet,Delayed Release (Dr/Ec) 81 mg PO DAILY Patient Comments: QAM folic acid 1 mg tablet 1 mg PO DAILY allopurinol 300 mg tablet 300 mg PO DAILY Patient Comments: QAM insulin aspart U-100 [Novolog FlexPen U-100 Insulin] 100 unit/mL (3 mL) insulin pen 0 unit SUBCUT TIDM Patient Comments: patient states he took 40 units total yesterday. Rx Instructions: plus sliding scale: TAKES 12 UNITS WITH BREAKFAST AND SUPPER, WITH CORRECTION FACTOR OF 1:25 IF OVER 140 MG/DL. UP TO 120 UNITS DAILY. Probiotic 10 billion cell Capsule 10,000 mmu cells PO DAILY tamsulosin 0.4 mg capsule 0.4 mg PO DAILY octreotide acetate 50 mcg/mL solution 50 mcg subcut BID triamcinolone acetonide 0.1 % Ointment 1 applic TOPICAL BID PRN (Reason: Skin Irritation) betamethasone dipropionate 0.05 % Cream 1 applic TOPICAL BID PRN (Reason: ECZEMA FLARE UPS) albuterol sulfate [ProAir HFA] 90 mcg/actuation Hfa Aerosol Inhaler 2 puff INHALATION Q4H PRN (Reason: COUGH/SHORTNESS OF BREATH) cholecalciferol (vitamin D3) 125 mcg (5,000 unit) Tablet 5,000 unit PO QAM Qty: 30 0RF albuterol sulfate 2.5 mg /3 mL (0.083 %) Solution For Nebulization 2.5 mg INHALATION DIRECTED PRN (Reason: Shortness Of Breath Or Wheezing) isosorbide mononitrate 60 mg tablet extended release 24 hr 60 mg PO QAM ezetimibe [Zetia] 10 mg Tablet 10 mg PO DAILY diclofenac sodium [Voltaren] 1 % Gel 2 g TOPICAL BID Rx Instructions: APPLY TO LOWER BACK Victoza 3-Kei 0.6 mg/0.1 mL (18 mg/3 mL) pen injector 1.8 mg SUBCUT DAILY guaifenesin [Mucinex] 600 mg Tablet Extended Release 12hr 600 mg PO Q12H PRN (Reason: Congestion) Xiidra 5 % Dropperette 1 drp OPB BID Rx Instructions: administer approximately 12 hours apart No Action furosemide [Lasix] 80 mg Tablet 80 mg PO QAM cephalexin 500 mg capsule 500 mg PO BID Rx Instructions: STARTED 02/01/23 FOR 10 DAYS Discharge Orders: Discharge Order (Routine); Ordered 02/04/23 Ordered By: Jeff Mason Admission Data Admit Date/Time: 02/03/23 21:38 Attending Provider: Jeff Mason Admit Provider: Harsh Peterson Primary Care Provider: Nicola Prado Other Providers: Harsh Peterson
[2023-02-04] MEDS ORDERED: POTASSIUM CHLORIDE / WTR 10 MEQ/100 ML PLCT IV SCH (18:30)
[2023-02-04] MEDS ORDERED: ATORVASTATIN 40 MG TAB PO SCH (21:00)
--- NOTE | 2023-02-05 05:48 | Electrocardiogram Report ---
Test Reason : Blood Pressure : / mmHG Vent. Rate : 086 BPM Atrial Rate : 082 BPM P-R Int : 000 ms QRS Dur : 160 ms QT Int : 452 ms P-R-T Axes : 039 -88 076 degrees QTc Int : 540 ms Atrial-sensed ventricular-paced rhythm with occasional Premature ventricular complexes Abnormal ECG When compared with ECG of 05-OCT-2021 08:30, Premature ventricular complexes are now Present Vent. rate has increased BY 23 BPM Confirmed by Carlyle Quinn ([id number]) on 02/05/2023 5:48:27 AM Referred By: REFERRED SELF Confirmed By:Carlyle Quinn
--- NOTE | 2023-02-05 06:39 | Electrocardiogram Report ---
Test Reason : Blood Pressure : / mmHG Vent. Rate : 066 BPM Atrial Rate : 066 BPM P-R Int : 208 ms QRS Dur : 174 ms QT Int : 538 ms P-R-T Axes : 000 -89 070 degrees QTc Int : 564 ms Atrial-sensed ventricular-paced rhythm Abnormal ECG When compared with ECG of 05-OCT-2021 08:30, Vent. rate has increased BY 3 BPM Confirmed by Carlyle Quinn ([id number]) on 02/05/2023 6:39:19 AM Referred By: REFERRED SELF Confirmed By:Carlyle Quinn
== END 2023-02-04 20:20 | disposition short-term general hospital (02) | DRG 445 ==
LOC: ED 12:11 → 2S 21:38